=== PATIENT | female | born 1955 | race Caucasian/White ===

== ENCOUNTER 2023-05-02 10:00 | Outpatient (OUT) | payer MEDICARE, OTHER, SELFPAY ==
--- NOTE | 2023-05-02 10:39 | CA_ITS ---
Patient: CALI SANTOS Exam Date: 05/02/2023 : 1955 Gender:F Ordering : MRS. DELMAR DOUGLAS NP Admission #: [id number] Family : Order #: [id number] CLICK HERE TO VIEW EXAM ECHOCARDIOGRAM REPORT PROCEDURE: CA ECHO DOPPLER COMPLETE INDICATIONS: Aneurysm of ascending aorta without rupture, hypertension, diabetes COMPARISON: None. DESCRIPTION: COMPLETE ECHOCARDIOGRAM Real-time transthoracic echocardiography with 2D, M-mode, spectral and color flow Doppler performed. QUALITY: Technical quality was good. LEFT VENTRICLE: Normal chamber size. Borderline left ventricular hypertrophy. Normal systolic function. LV EF: Normal left ventricular ejection fraction, (55%). DIASTOLIC: Normal diastolic dysfunction. ATRIAL SEPTUM: Visually appears intact. LEFT ATRIUM: Moderate dilatation. RIGHT ATRIUM: Mild dilatation. RIGHT VENTRICLE: Normal chamber size. Normal right ventricular systolic function. TRICUSPID VALVE: Normal mobility and thickness. No stenosis with mild regurgitation. No evidence of pulmonary hypertension. RVSP 31 mmHg MITRAL VALVE: Normal mobility and thickness. No evidence of mitral valve stenosis. There is no mitral annular calcification. Trivial mitral regurgitation. AORTIC VALVE: Normal trileaflet appearance. Thickened aortic valve. Mildly diminished mobility. No evidence of aortic valve stenosis. No aortic regurgitation. AORTIC ROOT: Dilated ascending aorta (4.2 cm). Aortic root and arch are normal in size. PULMONIC VALVE: Normal thickness and mobility. No stenosis. Mild regurgitation. PERICARDIUM: No evidence of pericardial effusion. IVC: Collapses with inspirations. PLEURA: CONCLUSION: 1. Normal ventricular size and systolic function. LVEF is 55%. 2. Normal right ventricular size and systolic function. 3. Normal diastolic function. 4. Mild to moderate biatrial dilatation. 5. Mild tricuspid regurgitation. 6. Normal right-sided pressures. 7. Moderately dilated ascending aorta measuring 4.2 cm. Adult Echocardiography Procedure Report Left Ventricle LVEDD (3.7 - 5.6 cm): 4.38 cm LVESD (2.2 - 4.0 cm): 2.63 cm LVIVS thickness (0.6 - 1.2 cm): 1.04 cm LVPW thickness (0.5 - 1.0 cm): 1.05 cm e': 0.11 m/s E - e': 7.61 LVOT Max Gradient: 5.98 mm[Hg] LVOT Area (cm2): 1.22 m/s Peak Velocity (LVOT): 1.22 m/s Mean Velocity (LVOT): 0.85 m/s LVOT Diameter 1.95 cm Left Atrium LA Volume Index (2D A2C): 37.94 ml/m2 Left Atrium Systolic Dimension: 4.27 cm Mitral Valve MV E to A Ratio: 0.90 Mitral Valve A-Wave Peak Velocity: 0.91 m/s Mitral Valve E-Wave Peak Velocity: 0.82 m/s Right Ventricle Aorta AO Root Diam: 2.79 cm Ascending Ao Diam: 3.35 cm Aortic Valve AoV Area (Peak Yinka): 2.18 cm2, 2.18 cm2 AoV Area (VTI): 2.08 cm2, 2.08 cm2 Peak Velocity(Antegrade Flow): 1.67 m/s Peak Gradient(Antegrade Flow): 11.13 mm[Hg] Mean Velocity(Antegrade Flow): 1.20 m/s Mean Gradient(Antegrade Flow): 6.40 mm[Hg] Velocity Time Integral: 41.41 cm Tricuspid Valve Peak Velocity (Regurgitant Flow): 2.67 m/s Pulmonic Valve Peak Velocity: 1.09 m/s Peak Gradient: 4.33 mm[Hg], 5.27 mm[Hg] Right Atrium Right Atrium Systolic Pressure: 65.70 ml, 65.70 ml Dictated by: Wally Perdue M.D. on 05/07/2023 at 17:30 Approved by: Wally Perdue M.D. on 05/07/2023 at 17:35
== END 2023-05-02 10:01 | disposition home or self-care (01) ==
LOC: CARD 10:00
PROVIDERS: PCP Family Medicine
DX: I71.21 Aneurysm of the ascending aorta, without rupture (principal); I07.1 Rheumatic tricuspid insufficiency
CPT/HCPCS: 93306

== ENCOUNTER 2023-09-24 13:31 | Outpatient (OUT) | payer MEDICARE, OTHER, SELFPAY ==
--- NOTE | 2023-09-24 13:44 | XR_ITS ---
The [address] [address] Patient Name: CALI SANTOS MRN: [id number] date: 1955 Sex: F Assigned Patient Location: [facility] Current Patient Location: RAD Accession/Order Number: [id number] Exam Date: 09/24/2023 13:50 Report Date: 09/24/2023 14:26 At the request of: KAI JARQUIN Procedure: XR chest 2V EXAMINATION: XR chest 2V HISTORY: Cough, Positive COVID 09/17/23 COMPARISON: XR chest 04/07/2021 FINDINGS: LUNGS: Stable small dense nodule within lateral left midlung favoring a granuloma. No appreciable infiltrates. VASCULATURE: No increased pulmonary vasculature. PLEURA: No pneumothorax, effusion, or pleural thickening. CARDIAC: No cardiomegaly or cardiac silhouette abnormality. MEDIASTINUM: No visible mass or adenopathy. BONES: No fracture or visible bone lesion. OTHER: Negative. XR/XR chest 2V IMPRESSION: 1. No acute cardiopulmonary process. Stable chest. Electronically authenticated by: KAPIL AGUILAR Date: 09/24/2023 14:26
== END 2023-09-24 13:32 | disposition home or self-care (01) ==
LOC: RAD 13:33
PROVIDERS: PCP Family Medicine; Visit Provider Family Medicine
DX: R05.9 Cough, unspecified (principal); Z86.16 Personal history of COVID-19
CPT/HCPCS: 71046

== ENCOUNTER 2023-11-20 10:44 | Outpatient (OUT) | payer MEDICARE, SELFPAY ==
--- NOTE | 2023-11-20 10:48 | MM_ITS ---
Patient Name: CALI SANTOS MR#: [id number] : 1955 Exam Date: 11/20/2023 Ordering Doctor: DR. KAI JARQUIN . RADIOLOGY REPORT PROCEDURE: MM TOMOSYNTHESIS SCREENING BI COMPARISON: MG MAMM ELADIO SCRN W CAD DIG, 03/30/2013. INDICATIONS: Screening Calculator Name NCI Breast Cancer Risk Assessment Tool 5 Year Breast Cancer Risk 2.00% Lifetime Breast Cancer Risk 5.90% Personal Breast Cancer No Personal Ovarian Cancer No Treatments None Family Cancers Mother with liver cancer at age 65. LOCATION: The [facility] BREAST COMPOSITION: Almost entirely fatty. FINDINGS: DIAGNOSTIC CATEGORY 2--BENIGN FINDING. NO CHANGE FROM COMPARISON. Scattered benign-appearing calcifications are present. Scattered benign-appearing lymph nodes are present. RIGHT BREAST: No significant suspicious finding. LEFT BREAST: No significant suspicious finding. RECOMMENDATIONS: ROUTINE MAMMOGRAM AND CLINICAL EVALUATION IN 12 MONTHS. PLEASE NOTE: A NORMAL MAMMOGRAM DOES NOT EXCLUDE THE POSSIBILITY OF BREAST CANCER. A CLINICALLY SUSPICIOUS PALPABLE LUMP SHOULD BE BIOPSIED. Dictated by: Nicholas Hernandez MD on 11/20/2023 at 12:52 Approved by: Nicholas Hernandez MD on 11/20/2023 at 12:53
--- OUTSIDE RECORDS SUMMARY | 2023-11-20 10:49 | XMS_ITS | CCD ---
Author Name Unknown Address [address] [place] [address] Organization [facility] Care Team Providers Care Potline Monitor Name Role Phone PHYSICIAN, DEFAULT Admitting Unavailable PHYSICIAN, DEFAULT Attending Unavailable SELF, REFERRED Primary Care Unavailable KIRIT, DR FERNY Ortiz Primary Care Unavailable ARUNA, HOLLY Admitting Unavailable ARUNA, HOLLY Attending Unavailable ARUNA, HOLLY Consulting Unavailable ARUNA, HOLLY Admitting Unavailable ARUNA, HOLLY Attending Unavailable ARUNA, HOLLY Consulting Unavailable KIRIT, DR FERNY Ortiz Primary Care Unavailable ARUNA, HOLLY Attending Unavailable ARUNAJINHOLLY Consulting Unavailable ARUNA, HOLLY Admitting Unavailable KIRIT, DR FERNY Ortiz Primary Care Unavailable KIRIT, DR FERNY Ortiz Admitting Unavailable KIRIT, DR FERNY Ortiz Attending Unavailable KIRIT, DR FERNY Ortiz Consulting Unavailable KIRIT, DR FERNY Oritz Primary Care Unavailable KIRIT, DR FERNY Ortiz Primary Care Unavailable KIRIT, DR FERNY Ortiz Admitting Unavailable KIRIT, DR FERNY Ortiz Attending Unavailable KIRIT, DR FERNY Ortiz Consulting Unavailable KIRIT, DR FERNY Ortiz Admitting Unavailable HUDDLESTON, DR FERNY Ortiz Attending Unavailable HUDDLESTON, DR FERNY Ortiz Consulting Unavailable KIRIT, DR FERNY Ortiz Primary Care Unavailable ARUNA, HOLLY Admitting Unavailable ARUNA, HOLLY Attending Unavailable ARUNA, HOLYL Consulting Unavailable KIRIT, DR FERNY Ortiz Primary Care Unavailable FERNY HUDDLESTON Primary Care Physician Willian Barrios. Primary Care Physician [phone] DELMAR DOUGLAS Attending Unavailable MD Willian Barrios Attending Unavailable Mariah Amin Attending UnavailMariah Leach Admitting UnavailMD Willian Galicia Attending Unavailable MD Willian Barrios Admitting Unavailable Deborah Rashid Attending UnavailAshlie Trejo Attending Unavailable Ashlie Mead Attending Unavailable MD Willian Barrios Attending Unavailable MD Willian Barrios Admitting Unavailable MD Willian Barrios Attending Unavailable Al-Marrawi, Mhd Yaser Admitting Unavailabl e Al-Marrawi, Mhd Yaser Attending Unavailabl Lucas Still Admitting Unavailable Deborah Rashid Referring Unavaila Lucas Roach Attending Unavailable Steve-Marmiguel, Mhd Yaser Attending UnavailMD Willian Galicia Attending Unavailable MD Willian Barrios Attending Unavailable MD Willian Barrios Attending Unavailable MD Willian Barrios Attending Unavailable MD Willian Barrios Attending Unavailable MD Willian Barrios Attending Unavailable Al-Marrawi, Mhd Yaser Admitting Unavailabl e Al-Marrawi, Lennyd Yaser Attending Unavailabl e Al-Marrawi, Mhd Yaser Admitting Unavailabl e Al-Marrawi, Mhd Yaser Attending UnavailMD Willian Galicia Admitting Unavailable Al-Marrawi, Mhd Yaser Attending Unavailabl e Pastor, GODFREY Loya L Referring Unavailable Al-Marrawi, Mhd Yaser Attending Unavailabl e Al-Marrawi, Lennyd Yaser Attending Unavailabl e Al-Marrawi, Mhd Yaser Admitting Unavailabl e Al-Marrawi, Mhd Yaser Referring Unavailabl e Al-Marrawi, Lennyd Yaser Attending Unavailabl e Al-Marrawi, Lennyd Yaser Admitting Unavailabl e Al-Marrawi, Mhd Yaser Attending UnavailMD Willian Galicia Attending Unavailable MD Willian Barrios Attending Unavailable MD Willian Barrios Attending Unavailable MD Willian Barrios Attending Unavailable MD Willian Barrios Attending Unavailable MD Willian Barrios Attending Unavailable Allergies Allergy Classification Reported Allergen(s) Allergy Type Date of Onset Reaction(s) Facility (3 sources) Sulfonamides (Antibiotic); Translations: [SULFA (SULFONAMIDE ANTIBIOTICS)] Drug allergy (disorder) 6 [facility] Repository (3 sources) metFORMIN; Translations: [METFORMIN] Drug Allergy [facility] Repository (13 sources) metFORMIN; Translations: [metformin] Drug Allergy Unknown (qualifier value), Dizziness (finding) [facility] (14 sources) Sulfonamides (Antibiotic); Translations: [sulfa drugs] Drug allergy Unknown (qualifier value) [facility] Medications Current Medications Medication Drug Class(es) Dates Sig (Normalized) Sig (Original) Albuterol (Eqv-ProAir HFA) 90 mcg/inh inhalation aerosol (4 sources) Start: 06-30-2023 take 2 puff(s) by inhalation every six hours Albuterol (Eqv-ProAir HFA) 90 mcg/inh inhalation aerosol 2 puff(s), Inhalation, q6hr, 18 gm, Refill(s) 0, [facility]/pharmacy #[id number], 150, cm, 06/30/23 11:19:00 EDT, Height/Length Dosing, 112.8, kg, 06/30/23 11:19:00 EDT, Weight Dosing Start Date: 06/30/23 Status: Ordered aspirin 81 mg oral capsule (13 sources) Platelet Aggregation Inhibitor, Nonsteroidal Anti-inflammatory Drug Start: 02-07-2023 take 1 capsule by mouth once daily aspirin 81 mg oral capsule 81 mg = 1 cap(s), Oral, Daily, Refills(s) 0 Start Date: 02/07/23 Status: Ordered atorvastatin 40 mg oral tablet (4 sources) HMG-CoA Reductase Inhibitor Start: 09-22-2023 take 1 tablet by mouth once daily atorvastatin 40 mg Tab See Instructions, TAKE 1 TABLET BY MOUTH EVERY DAY, # 90 tab(s), Refills(s) 0, Pharmacy: [id number], 152, cm, 09/17/23 13:20:00 EST, Height/Length Dosing, 11.2, kg, 09/17/23 13:20:00 EST, Weight Dosing Start Date: 09/22/23 Status: Ordered Start: 06-30-2023 take 1 tablet by leela th once daily Lipitor 40 mg Tab 40 mg = 1 tab(s), Oral, Daily, # 90 tab(s), Refills(s) 0, Pharmacy: [facility]/pharmacy #[id number], 150, cm, 06/30/23 11:19:00 EDT, Height/Length Dosing, 112.8, kg, 06/30/23 11:19:00 EDT, Weight Dosing Start Date: 06/30/23 Status: Ordered Budesonide 0.09 MG/ACTUAT Dry Powder Inhaler (1 source) Corticosteroid Start: 09-25-2023 budesonide 90 mcg/inh inhalation powder 1 inh, Inhalation, BID, 1 EA, Refill(s) 11, [facility]/pharmacy #[id number], 152, cm, 09/24/23 14:41:00 EST, Height/Length Dosing, 109.8, kg, 09/24/23 14:41:00 EST, Weight Dosing Start Date: 09/25/23 Status: Ordered fluticasone propionate 0.05 mg/actuat metered dose nasal spray (1 source) Corticosteroid Start: 09-24-2023 Flonase 0.05 m g/inh Pachuta 2 spray(s), Nasal, Daily, 16 gram, Refill(s) 0, each nostril, [facility]/pharmacy #[id number], 152, cm, 09/24/23 14:41:00 EST, Height/Length Dosing, 109.8, kg, 09/24/23 14:41:00 EST, Weight Dosing Start Date: 09/24/23 Status: Ordered glipiZIDE 5 mg oral tablet (13 sources) Sulfonylurea Start: 09-29-2023 take 1 tablet by mouth once daily glipiZIDE 5 mg Tab 5 mg = 1 tab(s), Oral, Daily, # 90 tab(s), Refills(s) 3, Pharmacy: [facility]/pharmacy #[id number], 152, cm, 09/29/23 11:20:00 EST, Height/Length Dosing, 111, kg, 09/29/23 11:20:00 EST, Weight Dosing Start Date: 09/29/23 Status: Ordered Start: 04-22-2023 take 1 tablet by leela th once daily glipiZIDE 5 mg Tab 5 mg = 1 tab(s), Oral, Daily, # 90 tab(s), Refills(s) 3, Pharmacy: [facility]/pharmacy #[id number], 150.8, cm, 03/31/23 11:24:00 EDT, Height/Length Dosing, 110, kg, 03/31/23 11:24:00 EDT, Weight Dosing Start Date: 04/22/23 Status: Ordered Start: 02-07-2023 take 1 tablet by leela once daily glipiZIDE 5 mg Tab 5 mg = 1 tab(s), Oral, Daily, Refills(s) 0 Start Date: 02/07/23 Status: Ordered hydroCHLOROthiazide 25 mg / losartan potassium 100 mg oral tablet (13 sources) Thiazide Diuretic, Angiotensin 2 Receptor Phylicia Start: 07-28-2023 hydrochlorothiazide-losartan 25 mg-100 mg Tab 1 tab(s), Oral, Daily, 90 tab(s), Refill(s) 1, [facility]/pharmacy #[id number], 150.8, cm, 07/24/23 9:39:00 EDT, Height/Length Dosing, 114, kg, 07/24/23 9:39:00 EDT, Weight Dosing Start Date: 07/28/23 Status: Ordered Start: 02-07-2023 take 1 tablet by [facility] once daily hydrochlorothiazide-losartan 25 mg-100 m g Tab 1 tab(s), Oral, Daily, Refill(s) 0 Start Date: 02/07/23 Status: Ordered levothyroxine sodium 0.075 mg oral tablet (13 sources) l-Thyroxine Start: 07-28-2023 take 1 tablet by mouth once daily levothyroxine 75 mcg (0.075 mg) Tab 75 mcg = 1 tab(s), Oral, Daily, # 90 tab(s), Refills(s) 3, Pharmacy: [facility]/pharmacy #[id number], 150.8, cm, 07/24/23 9:39:00 EDT, Height/Length Dosing, 114, kg, 07/24/23 9:39:00 EDT, Weight Dosing Start Date: 07/28/23 Status: Ordered Start: 06-09-2023 take 1 tablet by leela once daily levothyroxine 75 mcg (0.075 mg) Tab 75 mcg = 1 tab(s), Oral, Daily, # 90 tab(s), Refills(s) 0, Pharmacy: [facility]/pharmacy #[id number], 150.8, cm, 06/04/23 13:05:00 EDT, Height/Length Dosing, 114, kg, 06/04/23 13:05:00 EDT, Weight Dosing Start Date: 06/09/23 Status: Ordered Start: 02-07-2023 take 1 tablet by leela th once daily levothyroxine 75 mcg (0.075 mg) Tab 75 mcg = 1 tab(s), Oral, Daily, Refills(s) 0 Start Date: 02/07/23 Status: Ordered metoprolol tartrate 25 mg oral tablet (13 sources) beta-Adrenergic Phylicia Start: 02-07-2023 take 1 tablet by mouth twice daily Metoprolol tartrate 25 mg Tab 25 mg = 1 tab(s), Oral, BID, Refills(s) 0, High blood pressure Start Date: 02/07/23 Status: Ordered polyethylene glycol 3350 276169 mg / potassium chloride 1480 mg / sodium bicarbonate 5720 mg / sodium chloride 89939 mg powder for oral solution (6 sources) Osmotic Laxative Start: 10-01-2023 NuLYTELY Mae oral powder for reconstitution See Instructions, 1 EA, Refill(s) 0, Prior to colonsocopy., [facility]/pharmacy #[id number], 152, cm, 10/01/23 12:44:00 EST, Height/Length Dosing, 111.6, kg, 10/01/23 12:44:00 EST, Weight Dosing Start Date: 10/01/23 Status: Ordered Start: 06-04-2023 NuLYTELY Orang e oral powder for reconstitution See Instructions, 1 EA, Refill(s) 0, Oral, [id number], 150.8, cm, 06/04/23 13:05:00 EDT, Height/Length Dosing, 114, kg, 06/04/23 13:05:00 EDT, Weight Dosing Start Date: 06/04/23 Status: Ordered Completed/Discontinued Medications Medication Drug Class(es) Dates Sig (Normalized) Sig (Original) Symbicort 160/4.5 inhalation aerosol with adapter (1 source) Start: 09-25-2023 take 1 dose by inhalation twice daily Symbicort 160/4.5 inhalation aerosol with adapter 2 puff(s), Inhalation, BID, 1 EA, Refill(s) 0, [id number], 152, cm, 09/24/23 14:41:00 EST, Height/Length Dosing, 109.8, kg, 09/24/23 14:41:00 EST, Weight Dosing Start Date: 09/25/23 Status: Ordered Problems Problem Classification Problem Date Documented Date Episodic/Chronic Anal and rectal conditions (13 sources) Anal fissure 02-07-2023 Episodic Aortic; peripheral; and visceral artery aneurysms (8 sources) Aortic aneurysm of unspecified site, without rupture; Translations: [Thoracic aortic aneurysm, without rupture] Onset: 03-12-20 Chronic Chronic kidney disease (12 sources) Chronic kidney disease stage 3A 03-18-2023 Chronic Coagulation and hemorrhagic disorders (12 sources) Thrombocytopenic disorder 03-18-2023 Chroni c Deficiency and other anemia (5 sources) Anemia; Translations: [Anemia, unspecified] Onset: 07-31-20 Episodic Diabetes mellitus with complications (4 sources) Type 2 diabetes mellitus with unspecified complications; Translations: [TYPE 2 DM W/UNS COMPLICATIONS] Onset: 09-18-20 Chronic Diabetes mellitus without complication (13 sources) Type 2 diabetes mellitus; Translations: [Type 2 diabetes mellitus without complication] 02-07-2023 Chronic Comment on above: linked DM with CKD p er OP CDI policy. Diseases of white blood cells (12 sources) Lymphocytopenia 03-31-2023 Chronic Disorders of lipid metabolism (1 source) Pure hypercholesterolemia, unspecified; Translations: [PURE HYPERCHOLESTEROLEMIA UNSPEC] Onset: 04-04-20 Chronic Essential hypertension (16 sources) Essential (primary) hypertension; Translations: [Hypertensive disorder] Onset: 04-04-2002-07-2023 Chronic Fluid and electrolyte disorders (12 sources) Hypokalemia 03-18-2023 Episodic Gastrointestinal hemorrhage (3 sources) Gastrointestinal hemorrhage 07-30-2023 Episodic Heart valve disorders (1 source) Rheumatic tricuspid insufficiency; Translations: [RHEUMATIC TRICUSPID INSUFFICIENCY] Onset: 03-19-20 Chronic Mycoses (1 source) Onychomycosis 09-29-2023 Episodic Other aftercare (3 sources) Post-discharge follow-up 07-30-2023 Episodi c Other and unspecified benign neoplasm (5 sources) History of polyp of colon; Translations: [Personal history of colonic polyps] Onset: 07-31-20 Episodic Other and unspecified benign neoplasm (3 sources) Polyp of colon Onset: 07-24-2007-30-2023 Episodic Other connective tissue disease (13 sources) Adhesive capsulitis of shoulder 02-07-2023 Episodic Other connective tissue disease (13 sources) Inflammation of rotator cuff tendon 02-07-2023 Episodic Other gastrointestinal disorders (1 source) Abnormal feces; Translations: [Other fecal abnormalities] Onset: 06-03-20 Episodic Other hereditary and degenerative nervous system conditions (13 sources) Essential tremor 02-07-2023 Chronic Other liver diseases (12 sources) Elevated total bilirubin 03-18-2023 Episodi c Other lower respiratory disease (13 sources) Restrictive lung disease 02-07-2023 Episodi c Other screening for suspected conditions (not mental disorders or infectious disease) (5 sources) Screening for malignant neoplasm of colon done; Translations: [Encounter for screening for malignant neoplasm of colon] Onset: 06-03-20 Episodic Other upper respiratory disease (13 sources) Allergic rhinitis 02-07-2023 Chronic Residual codes; unclassified (4 sources) Obstructive sleep apnea (adult) (pediatric); Translations: [OBSTRUCTIVE SLEEP APNEA] Onset: 05-29-20 Chronic Thyroid disorders (14 sources) Hypothyroidism, unspecified; Translations: [Hypothyroidism] Onset: 09-23-2002-07-2023 Chronic Unclassified (20 sources) Patient encounter status 03-17-2023 Viral infection (1 source) Disease caused by 2019-nCoV 09-17-2023 Results Test Name Value Interpretation Reference Range Facil ity Consent for Procedure/Surger yon 10-03-2023 Consent for Procedure/Surgery [id number]# 1.00TIFF Normal [facility] Ambulatory Visit Summaryon 1 12-02-2022 Ambulatory Visit Summary MISA SANTOS :1955 Visit Date:10/01/2023 Ambulatory Visit Instructions Your Diagnosis History of colon polyps Anemia Your Care Team Attending Physician - Ashlie Mead CNP Primary Care Physician - Willian Barrios MD This Is Your Medications List polyethylene glycol 3350 with electrolytes (NuLYTELY Mae oral powder for reconstitution) Contact prescribing physician if questions or concerns Misc Prescription (Lancets) Misc Prescription (Misc DME Prescription) albuterol (Albuterol (Eqv-ProAir HFA) 90 mcg/inh inhalation aerosol) aspirin (aspirin 81 mg oral capsule) atorvastatin (atorvastatin 40 mg Tab) budesonide (budesonide 90 mcg/inh inhalation powder) budesonide-formoterol (Symbicort 160/4.5 inhalation aerosol with adapter) fluticasone nasal (Flonase 0.05 mg/inh Pachuta) glipiZIDE (glipiZIDE 5 mg Tab) hydrochlorothiazide-l osartan (hydrochlorothiazide- losartan 25 mg-100 mg Tab) levothyroxine (levothyroxine 75 mcg (0.075 mg) Tab) metoprolol (Metoprolol tartrate 25 mg Tab) Procedures Performed Colonoscopy (07/24/2023), Bone marrow biopsy (06/24/2023), Carpal tunnel release, section, AWA BSO - Total abdominal hysterectomy and bilateral salpingo-oophorectomy . Discharge Vitals Temperature (Temporal Artery) 36 ?C Heart Rate (Peripheral) 55 Blood Pressure 119/79 Height 152 cm Height 60 in Weight 111.6 kg Weight 245.52 lb BMI 48.3 What to do next Scheduled Follow-Up Appointments Friday 10:30 AM EDT With: Denis PATTEN, Willian Weiner Where: [facility] Normal [address] [place] [address]- \.br\ You Need to Schedule the Following Appointments\.br \ Follow Up with Ashlie Mead CNP When: In 4 months\.br\ Where:\.br\ You Need to Complete the Following\.br\ CBC w/ Auto Diff, Blood, Routine collect, 10/01/23, Order for future visit, Lab Collect, Anemia, Not Required, Print Label By Order Location\.br\ Medications\.br\ What How Much When Why Instructions\.br \ New polyethylene glycol 3350 with electrolytes (NuLYTELY Mae oral powder for reconstitution) See instructions Prior to colonsocopy. Pickup at [facility]/pharmacy #[id number]\.br\ Unchanged albuterol (Albuterol (Eqv-ProAir HFA) 90 mcg/ inh inhalation aerosol) 2 Puffs Inhalation Every 6 hours Contact prescribing physician if questions or concerns \.br\ Unchanged aspirin (aspirin 81 mg oral capsule) 1 Capsules By Mouth Every day Contact prescribing physician if questions or concerns \.br\ Unchanged atorvastatin (atorvastatin 40 mg Tab) See instructions TAKE 1 TABLET BY MOUTH EVERY DAY Contact prescribing physician if questions or concerns \.br\ Unchanged budesonide (budesonide 90 mcg/ inh inhalation powder) 1 Inhalation Inhalation 2 times a day Contact prescribing physician if questions or concerns \.br\ Unchanged budesonide-formo terol (Symbicort 160/ 4.5 inhalation aerosol with adapter) 2 Puffs Inhalation 2 times a day Contact prescribing physician if questions or concerns \.br\ Unchanged fluticasone nasal (Flonase 0.05 mg/ inh Pachuta) 2 Sprays Nasal Inhalation Every day each nostril Contact prescribing physician if questions or concerns \.br\ Unchanged glipiZIDE (glipiZIDE 5 mg Tab) 1 Tablets By Mouth Every day Contact prescribing physician if questions or concerns \.br\ Unchanged hydrochlorothiaz thomas-losartan (hydrochlorothia zide-losartan 25 mg-100 mg Tab) 1 Tablets By Mouth Every day Contact prescribing physician if questions or concerns \.br\ Unchanged levothyroxine (levothyroxine 75 mcg (0.075 mg) Tab) 1 Tablets By Mouth Every day Contact prescribing physician if questions or concerns \.br\ Unchanged metoprolol (Metoprolol tartrate 25 mg Tab) 1 Tablets By Mouth 2 times a day Contact prescribing physician if questions or concerns \.br\ Unchanged Misc Prescription (Lancets) See instructions Diabetes To be used once a day to obtain blood sugars Dx: E11.9 Contact prescribing physician if questions or concerns \.br\ Unchanged Misc Prescription (Misc DME Prescription) See instructions Diabetes one touch test strips. Use to test blood sugars once a day Dx E11.9 Contact prescribing physician if questions or concerns \.br\ Pharmacy Information\.br\ [facility]/pharmacy #[id number]: [address] [place], [place] [id number] [phone]\.br\ Allergies\.br\ metFORMIN (Nausea, Dizziness, Unknown)\.br\ sulfa drugs (Hives, Unknown)\.br\ Problems\.br\ Ongoing - Any problem that you are currently receiving treatment for.\.br\ Allergic rhinitis\.br\ Anal fissure\.br\ Anemia\.br\ Breast cancer screening\.br\ Colon cancer screening\.br\ COVID\.br\ GI bleed\.br\ History of colon polyps\.br\ Hospital discharge follow-up\.br\ Hypertension\.br \ Hypokalemia\.br\ Hypothyroid\.br\ Lymphopenia\.br\ Onychomycosis\.b r\ Pericapsulitis of shoulder\.br\ Polyp of colon\.br\ Positive colorectal cancer screening using Cologuard test\.br\ Restrictive lung disease\.br\ Rotator cuff tendonitis\.br\ Stage 3a chronic kidney disease (CKD)\.br\ Thrombocytopenia \.br\ Total bilirubin, elevated\.br\ Tremor, essential\.br\ Type 2 diabetes mellitus with stage 3a chronic kidney disease and hypertension\.br \ Patient Survey\.br\ You may receive a survey via text or e-mail asking about your office visit. Please share your experience with us by completing your survey. We appreciate your feedback and thank you for choosing us for your care.\.br\ Education Materials\.br\ Colon Polyps\.br\ \.br\ Colon polyps are tissue growths inside the colon, which is part of the large intestine. They are one of the types of polyps that can grow in the body. A polyp may be a round bump or a mushroom-shaped growth. You could have one polyp or more than one.\.br\ Most colon polyps are noncancerous (benign). However, some colon polyps can become cancerous over time. Finding and removing the polyps early can help prevent this.\.br\ What are the causes?\.br\ The exact cause of colon polyps is not known.\.br\ What increases the risk?\.br\ The following factors may make you more likely to develop this condition:\.br\ ? \.br\ Having a family history of colorectal cancer or colon polyps.\.br\ ? \.br\ Being older than 45 years of age.\.br\ ? \.br\ Being younger than 45 years of age and having a significant family history of colorectal cancer or colon polyps or a genetic condition that puts you at higher risk of getting colon polyps.\.br\ ? \.br\ Having inflammatory bowel disease, such as ulcerative colitis or Crohn's disease.\.br\ ? \.br\ Having certain conditions passed from parent to child (hereditary conditions), such as:\.br\ ? \.br\ Familial adenomatous polyposis (FAP).\.br\ ? \.br\ Mishra syndrome.\.br\ ? \.br\ Turcot syndrome.\.br\ ? \.br\ Peutz?Jeghers syndrome.\.br\ ? \.br\ MUTYH-associated polyposis (MAP).\.br\ ? \.br\ Being overweight.\.br\ ? \.br\ Certain lifestyle factors. These include smoking cigarettes, drinking too much alcohol, not getting enough exercise, and eating a diet that is high in fat and red meat and low in fiber.\.br\ ? \.br\ Having had childhood cancer that was treated with radiation of the abdomen.\.br\ What are the signs or symptoms?\.br\ Many times, there are no symptoms.\.br\ If you have symptoms, they may include:\.br\ ? \.br\ Blood coming from the rectum during a bowel movement.\.br\ ? \.br\ Blood in the stool (feces). The blood may be bright red or very dark in color.\.br\ ? \.br\ Pain in the abdomen.\.br\ ? \.br\ A change in bowel habits, such as constipation or diarrhea.\.br\ How is this diagnosed?\.br\ This condition is diagnosed with a colonoscopy. This is a procedure in which a lighted, flexible scope is inserted into the opening between the buttocks (anus) and then passed into the colon to examine the area. Polyps are sometimes found when a colonoscopy is done as part of routine cancer screening tests.\.br\ How is this treated?\.br\ This condition is treated by removing any polyps that are found. Most polyps can be removed during a colonoscopy. Those polyps will then be tested for cancer. Additional treatment may be needed depending on the results of testing.\.br\ Follow these instructions at home:\.br\ Eating and drinking\.br\ \.br\ ? \.br\ Eat foods that are high in fiber, such as fruits, vegetables, and whole grains.\.br\ ? \.br\ Eat foods that are high in calcium and vitamin D, such as milk, cheese, yogurt, eggs, liver, fish, and broccoli.\.br\ ? \.br\ Limit foods that are high in fat, such as fried foods and desserts.\.br\ ? \.br\ Limit the amount of red meat, precooked or cured meat, or other processed meat that you eat, such as hot dogs, sausages, yun, or meat loaves.\.br\ ? \.br\ Limit sugary drinks.\.br\ Lifestyle\.br\ ? \.br\ Maintain a healthy weight, or lose weight if recommended by your health care provider.\.br\ ? \.br\ Exercise every day or as told by your health care provider.\.br\ ? \.br\ Do not use any products that contain nicotine or tobacco, such as cigarettes, e-cigarettes, and chewing tobacco. If you need help quitti [facility] Gastroenterology Office/Clin ic Noteon 10-01-2023 Gastroenterology Office/Clinic Note Chief Complaint Checkup HPI Staff This is a 68 year old female who presents today for a follow-up from 07/31/23 office visit. History of Present Illness Patient is a 68-year-old female who presents for follow-up. Patient was previously evaluated 07/2023 and had previous positive Cologuard testing. PMH of HTN, HLD, Hypothyroidism- managed by patient's PCP. Colonoscopy completed 07/24/2023 revealed 1 cm semipedunculated polyp removed from ascending colon that pathology revealed was tubulovillous adenoma, large at least 4 cm pedunculated polyp removed from sigmoid that pathology revealed was tubulovillous adenoma. Operative note indicated patient had experienced blood loss during procedure and was admitted to hospital for monitoring. Patient to have repeat colonoscopy in 6 months-01/2024. Patient had labs 07/25/23 that revealed low H/H of 10.9/31.8. Hgb. 05/27/23 was low at 11.2. Patient reported during visit with me that she was following with hematology regarding anemia. She reported having 1-2 formed bowel movements daily. Patient was ordered repeat CBC. Labs completed 09/15/2023 revealed improved H&H of 12.3/36.5?was previously 10.9/31.8, improved however low RBC of 3.9, was previously 3.4. During today's visit, patient reports she is doing well. Is having 1 formed BM daily. Denies black/bloody stools, acid reflux, nausea/vomiting, fevers/chills, and denies having any GI complaints. Review of Systems PHQ Score Initial Depression Screen Score: 0 SCORE ROS - Provider Constitutional: no fever, no chills. Skin: no Jaundice. ENMT: Denies dysphagia and heartburn. Respiratory: no shortness of breath. Cardiovascular: no chest pain. Gastrointestinal: no nausea, no vomiting, no diarrhea, no GI bleeding. Physical Exam Vitals & Measurements T: 36 ?C(Temporal Artery) HR: 55(Peripheral) BP: 119/79 HT: 60 in HT: 152 cm WT: 111.6 kg WT: 245.52 lb BMI: 48.3 General: Well developed, well nourished, in no acute distress Head: Normocephalic/atrauma tic Lungs: Normal respiratory effort and clear to auscultation Cardio: Regular rate and rhythm, normal S1 and S2, no murmur, no rub Abdomen: Soft, non-distended, non-tender. Normoactive bowel sounds present in all 4 abdominal quadrants, bilaterally. Mental Status: Alert and oriented x3. Normal mood and affect Assessment/Plan HR low at 55- patient reports her HR normally runs in 50s. 1. History of colon polyps (Z86.010: Personal history of colonic polyps) Colonoscopy completed 07/24/2023 revealed 1 cm semipedunculated polyp removed from ascending colon that pathology revealed was tubulovillous adenoma, large at least 4 cm pedunculated polyp removed from sigmoid that pathology revealed was tubulovillous adenoma. Patient to have repeat colonoscopy in 6 months-01/2024. Ordered Colonoscopy. Takes aspirin daily. Ordered: Colonoscopy (Hospital Procedure) 2. Anemia (D64.9: Anemia, unspecified) Improved. Labs completed 09/15/2023 revealed improved H&H of 12.3/36.5?was previously 10.9/31.8, improved however low RBC of 3.9, was previously 3.4. Colonoscopy completed 07/24/2023 revealed 1 cm semipedunculated polyp removed from ascending colon that pathology revealed was tubulovillous adenoma, large at least 4 cm pedunculated polyp removed from sigmoid that pathology revealed was tubulovillous adenoma. Operative note indicated patient had experienced blood loss during procedure and was admitted to hospital for monitoring. Patient to have repeat colonoscopy in 6 months-01/2024. Ordered repeat CBC in 2 months. Ordered: CBC w/ Auto Diff Orders: polyethylene glycol 3350 with electrolytes, See Instructions, 1 EA, Refill(s) 0, Prior to colonsocopy., [id number], 152, cm, 10/01/23 12:44:00 EST, Height/Length Dosing, 111.6, kg, 10/01/23 12:44:00 EST, Weight Dosing Follow-up With When Contact Information Ashlie Mead CNP In 4 months Additional Instructions: Patient Education Colon Polyps Problem List/Past Medical History Ongoing Allergic rhinitis Anal fissure Anemia Breast cancer screening Colon cancer screening COVID GI bleed History of colon polyps Hospital discharge follow-up Hypertension Hypokalemia Hypothyroid Lymphopenia Onychomycosis Pericapsulitis of shoulder Polyp of colon Positive colorectal cancer screening using Cologuard test Restrictive lung disease Rotator cuff tendonitis Stage 3a chronic kidney disease (CKD) Thrombocytopenia Total bilirubin, elevated Tremor, essential Type 2 diabetes mellitus with stage 3a chronic kidney disease and hypertension Historical No qualifying data Procedure/Surgical History Colonoscopy (07/24/2023), Bone marrow biopsy (06/24/2023), Carpal tunnel release, section, AWA BSO - Total abdominal hysterectomy and bilateral salpingo-oophorectomy . Medications Albuterol (Eqv-ProAir HFA) 90 mcg/inh inhalation aerosol, 2 puff(s), Inhalation, q6hr aspirin 81 mg oral capsule, 81 mg= 1 ca (more content not included)... Normal [facility] Comment on above: Result Comment: Elec tronically Signed By: Ashlie Mead CNP\.br\Date and Time Signed: 10/01/23 12:54 EST Patient Educationon 10-01-20 Patient Education Oncology Colon Polyps Colon polyps are tissue growths inside the colon, which is part of the large intestine. They are one of the types of polyps that can grow in the body. A polyp may be a round bump or a mushroom-shaped growth. You could have one polyp or more than one. Most colon polyps are noncancerous (benign). However, some colon polyps can become cancerous over time. Finding and removing the polyps early can help prevent this. What are the causes? The exact cause of colon polyps is not known. What increases the risk? The following factors may make you more likely to develop this condition: ? Having a family history of colorectal cancer or colon polyps. ? Being older than 45 years of age. ? Being younger than 45 years of age and having a significant family history of colorectal cancer or colon polyps or a genetic condition that puts you at higher risk of getting colon polyps. ? Having inflammatory bowel disease, such as ulcerative colitis or Crohn's disease. ? Having certain conditions passed from parent to child (hereditary conditions), such as: ? Familial adenomatous polyposis (FAP). ? Mishra syndrome. ? Turcot syndrome. ? Peutz?Jeghers syndrome. ? MUTYH-associated polyposis (MAP). ? Being overweight. ? Certain lifestyle factors. These include smoking cigarettes, drinking too much alcohol, not getting enough exercise, and eating a diet that is high in fat and red meat and low in fiber. ? Having had childhood cancer that was treated with radiation of the abdomen. What are the signs or symptoms? Many times, there are no symptoms. If you have symptoms, they may include: ? Blood coming from the rectum during a bowel movement. ? Blood in the stool (feces). The blood may be bright red or very dark in color. ? Pain in the abdomen. ? A change in bowel habits, such as constipation or diarrhea. How is this diagnosed? This condition is diagnosed with a colonoscopy. This is a procedure in which a lighted, flexible scope is inserted into the opening between the buttocks (anus) and then passed into the colon to examine the area. Polyps are sometimes found when a colonoscopy is done as part of routine cancer screening tests. How is this treated? This condition is treated by removing any polyps that are found. Most polyps can be removed during a colonoscopy. Those polyps will then be tested for cancer. Additional treatment may be needed depending on the results of testing. Follow these instructions at home: Eating and drinking ? Eat foods that are high in fiber, such as fruits, vegetables, and whole grains. ? Eat foods that are high in calcium and vitamin D, such as milk, cheese, yogurt, eggs, liver, fish, and broccoli. ? Limit foods that are high in fat, such as fried foods and desserts. ? Limit the amount of red meat, precooked or cured meat, or other processed meat that you eat, such as hot dogs, sausages, yun, or meat loaves. ? Limit sugary drinks. Lifestyle ? Maintain a healthy weight, or lose weight if recommended by your health care provider. ? Exercise every day or as told by your health care provider. ? Do not use any products that contain nicotine or tobacco, such as cigarettes, e-cigarettes, and chewing tobacco. If you need help quitting, ask your health care provider. ? Do not drink alcohol if: ? Your health care provider tells you not to drink. ? You are , may be , or are planning to become . ? If you drink alcohol: ? Limit how much you use to: ? 0?1 drink a day for women. ? 0?2 drinks a day for men. ? Know how much alcohol is in your drink. In the [place] one drink equals one 12 oz bottle of beer (355 mL), one 5 oz glass of wine (148 mL), or one 1? oz glass of hard liquor (44 mL). General instructions ? Take [id number] and prescription medicines only as told by your health care provider. ? Keep all follow-up visits. This is important. This includes having regularly scheduled colonoscopies. Talk to your health care provider about when you need a colonoscopy. Contact a health care provider if: ? You have new or worsening bleeding during a bowel movement. ? You have new or increased blood in your stool. ? You have a change in bowel habits. ? You lose weight for no known reason. Summary ? Colon polyps are tissue growths inside the colon, which is part of the large intestine. They are one type of polyp that can grow in the body. ? Most colon polyps are noncancerous (benign), but some can become cancerous over time. ? This condition is diagnosed with a colonoscopy. ? This condition is treated by removing any polyps that are found. Most polyps can be removed during a colonoscopy. This information is not intended to replace advice given to you by your health care provider. Make sure you discuss any questions you have with your health care provider. Document Revised: 01/17/2021 D (more content not included)... Normal [facility] Ambulatory Visit Summaryon 1 11-30-2022 Ambulatory Visit Summary MISA SANTOS :1955 Visit Date:09/29/2023 Ambulatory Visit Instructions Your Diagnosis Hypertension Hypokalemia Stage 3a chronic kidney disease (CKD) Type 2 diabetes mellitus with stage 3a chronic kidney disease and hypertension BMI 45.0-49.9, adult Onychomycosis Class 3 obesity Nonsmoker Hypertensive chronic kidney disease with stage 1 through stage 4 chronic kidney disease, or unspecified chronic kidney disease Your Care Team Attending Physician - Willian Barrios MD Primary Care Physician - Willian Barrios MD This Is Your Medications List Misc Prescription (Lancets) Misc Prescription (Misc DME Prescription) albuterol (Albuterol (Eqv-ProAir HFA) 90 mcg/inh inhalation aerosol) aspirin (aspirin 81 mg oral capsule) atorvastatin (atorvastatin 40 mg Tab) budesonide (budesonide 90 mcg/inh inhalation powder) budesonide-formoterol (Symbicort 160/4.5 inhalation aerosol with adapter) fluticasone nasal (Flonase 0.05 mg/inh Pachuta) glipiZIDE (glipiZIDE 5 mg Tab) hydrochlorothiazide-l osartan (hydrochlorothiazide- losartan 25 mg-100 mg Tab) levothyroxine (levothyroxine 75 mcg (0.075 mg) Tab) metoprolol (Metoprolol tartrate 25 mg Tab) Procedures Performed Colonoscopy (07/24/2023), Bone marrow biopsy (06/24/2023), Carpal tunnel release, section, AWA BSO - Total abdominal hysterectomy and bilateral salpingo-oophorectomy . Discharge Vitals Temperature (Oral) 36.5 ?C Heart Rate (Peripheral) 58 Respiratory Rate 18 Blood Pressure 120/72 Height 152 cm Height 60 in Weight 111.0 kg Weight 244.2 lb BMI 48.04 What to do next Scheduled Follow-Up Appointments Friday 12:40 PM EST With: Ashlie Mead CNP Where: [facility] Invalid Interpretation Code [address] [place] [address]- \.br\ Someone Will Contact You Regarding These Appointments\.br \ [facility] External Ambulatory Referral, Podiatry, 09/29/23 11:47:00 EST, Hypertension [facility] Ambulatory Visit Summary MISA SANTOS :1955 Visit Date:09/29/2023 Ambulatory Visit Instructions Your Diagnosis Hypertension Hypokalemia Stage 3a chronic kidney disease (CKD) Type 2 diabetes mellitus with stage 3a chronic kidney disease and hypertension BMI 45.0-49.9, adult Class 3 obesity Nonsmoker Hypertensive chronic kidney disease with stage 1 through stage 4 chronic kidney disease, or unspecified chronic kidney disease Your Care Team Attending Physician - Willian Barrios MD Primary Care Physician - Willian Barrios MD This Is Your Medications List Misc Prescription (Lancets) Misc Prescription (Misc DME Prescription) albuterol (Albuterol (Eqv-ProAir HFA) 90 mcg/inh inhalation aerosol) aspirin (aspirin 81 mg oral capsule) atorvastatin (atorvastatin 40 mg Tab) budesonide (budesonide 90 mcg/inh inhalation powder) budesonide-formoterol (Symbicort 160/4.5 inhalation aerosol with adapter) fluticasone nasal (Flonase 0.05 mg/inh Pachuta) glipiZIDE (glipiZIDE 5 mg Tab) hydrochlorothiazide-l osartan (hydrochlorothiazide- losartan 25 mg-100 mg Tab) levothyroxine (levothyroxine 75 mcg (0.075 mg) Tab) metoprolol (Metoprolol tartrate 25 mg Tab) Procedures Performed Colonoscopy (07/24/2023), Bone marrow biopsy (06/24/2023), Carpal tunnel release, section, AWA BSO - Total abdominal hysterectomy and bilateral salpingo-oophorectomy . Discharge Vitals Temperature (Oral) 36.5 ?C Heart Rate (Peripheral) 58 Respiratory Rate 18 Blood Pressure 120/72 Height 152 cm Height 60 in Weight 111.0 kg Weight 244.2 lb BMI 48.04 What to do next Scheduled Follow-Up Appointments Friday 12:40 PM EST With: Ashlie Mead CNP Where: [facility] Normal [address] [place] [phone]- \.br\ Medications\.br\ What How Much When Why Instructions\.br \ Unchanged albuterol (Albuterol (Eqv-ProAir HFA) 90 mcg/ inh inhalation aerosol) 2 Puffs Inhalation Every 6 hours\.br\ Unchanged aspirin (aspirin 81 mg oral capsule) 1 Capsules By Mouth Every day\.br\ Unchanged atorvastatin (atorvastatin 40 mg Tab) See instructions TAKE 1 TABLET BY MOUTH EVERY DAY \.br\ Unchanged budesonide (budesonide 90 mcg/ inh inhalation powder) 1 Inhalation Inhalation 2 times a day\.br\ Unchanged budesonide-formo terol (Symbicort 160/ 4.5 inhalation aerosol with adapter) 2 Puffs Inhalation 2 times a day\.br\ Unchanged fluticasone nasal (Flonase 0.05 mg/ inh Pachuta) 2 Sprays Nasal Inhalation Every day each nostril \.br\ Unchanged glipiZIDE (glipiZIDE 5 mg Tab) 1 Tablets By Mouth Every day\.br\ Unchanged hydrochlorothiaz thomas-losartan (hydrochlorothia zide-losartan 25 mg-100 mg Tab) 1 Tablets By Mouth Every day\.br\ Unchanged levothyroxine (levothyroxine 75 mcg (0.075 mg) Tab) 1 Tablets By Mouth Every day\.br\ Unchanged metoprolol (Metoprolol tartrate 25 mg Tab) 1 Tablets By Mouth 2 times a day\.br\ Unchanged Misc Prescription (Lancets) See instructions Diabetes To be used once a day to obtain blood sugars Dx: E11.9 \.br\ Unchanged Misc Prescription (Misc DME Prescription) See instructions Diabetes one touch test strips. Use to test blood sugars once a day Dx E11.9 \.br\ Allergies\.br\ metFORMIN (Nausea, Dizziness, Unknown)\.br\ sulfa drugs (Hives, Unknown)\.br\ Problems\.br\ Ongoing - Any problem that you are currently receiving treatment for.\.br\ Allergic rhinitis\.br\ Anal fissure\.br\ Anemia\.br\ Breast cancer screening\.br\ Colon cancer screening\.br\ COVID\.br\ GI bleed\.br\ History of colon polyps\.br\ Hospital discharge follow-up\.br\ Hypertension\.br \ Hypokalemia\.br\ Hypothyroid\.br\ Lymphopenia\.br\ Pericapsulitis of shoulder\.br\ Polyp of colon\.br\ Positive colorectal cancer screening using Cologuard test\.br\ Restrictive lung disease\.br\ Rotator cuff tendonitis\.br\ Stage 3a chronic kidney disease (CKD)\.br\ Thrombocytopenia \.br\ Total bilirubin, elevated\.br\ Tremor, essential\.br\ Type 2 diabetes mellitus with stage 3a chronic kidney disease and hypertension\.br \ Patient Survey\.br\ You may receive a survey via text or e-mail asking about your office visit. Please share your experience with us by completing your survey. We appreciate your feedback and thank you for choosing us for your care.\.br\ \.br\ [facility] Medicine Office/Clini c Noteon 09-29-2023 Family Medicine Office/Clinic Note HPI Staff Misa is a 68 year old female presenting for 3 month follow up DM, CKD, HTN, Hypokalemia Do you have any of the following symptoms? Foot Exam: due today ( per medicare wellness) Eye Exam: UTD Last A1C: Hgb A1C %: 7 % High (06/30/23 12:03:00) Statin: atorvastatin 40mg qd Patient is here for follow up on hypertension. How often are you checking your blood pressure? occasionally What are your average readings? says it's good when she remembers to check it _ Yearly BMP: 09/15/23_ flu: UTD questions/concerns: thinks she needs her glipizide refilled still struggling a bit with the covid, drainage and lots of coughing, some sneezing yet and cannot smell or taste anything History of Present Illness - Here for follow up - A1c is 6.1 today - No new issues. Recovering from Covid still. Review of Systems PHQ Score Initial Depression Screen Score: 0 SCORE Physical Exam Vitals & Measurements T: 36.5 ?C(Oral) HR: 58(Peripheral) RR: 18 BP: 120/72 SpO2: 95% HT: 60 in HT: 152 cm WT: 111.0 kg WT: 244.2 lb BMI: 48.04 General: alert, no acute distress ENMT: oral mucosa moist, Cardiovascular: regular rate and rhythm, normal peripheral perfusion Respiratory: Lungs CTA, respirations non labored Extremities: no deformity, no trauma Neurological: oriented x 4, LOC appropriate for age, CN II-XII intact, motor strength equal & normal bilaterally, speech normal Abdomen: Soft, Nontender, Non-distended, + BS Onchomycosis noted on all toe nails Diabetic Foot Exam Decreased Monofilament Sensation Foot: Left - Normal, Right - Normal Bunions/Foot Deformity: Left - Normal, Right - Normal Abnormal Pulse Foot: Left - Normal, Right - Normal Skin Lesions Foot: Left - Normal, Right - Normal Foot Exam Result: Normal foot exam Assessment/Plan 1. Hypertension (I10: Essential (primary) hypertension) - At goal. - Continue meds as before Ordered: A1c POC 67034 A1c POC 85260 Body Mass Index (BMI) documented 3008F Current tobacco non-user 1036F Depression Screening Negative 3352F [facility] External Ambulatory Referral Influenza immunization administered or previously received 4274F Most recent diastolic blood pressure <80 mm Hg 3078F Patient screen for fall risk: no falls in last year or 1 fall with no injury in last year 1101F Systolic BP <130 mm Hg (Most Recent) 3074F 2. Hypokalemia (E87.6: Hypokalemia) - Resolved Ordered: A1c POC 88859 A1c POC 35902 Body Mass Index (BMI) documented 3008F Current tobacco non-user 1036F Depression Screening Negative 3352F [facility] External Ambulatory Referral Influenza immunization administered or previously received 4274F Most recent diastolic blood pressure <80 mm Hg 3078F Patient screen for fall risk: no falls in last year or 1 fall with no injury in last year 1101F Systolic BP <130 mm Hg (Most Recent) 3074F 3. Stage 3a chronic kidney disease (CKD) (N18.31: Chronic kidney disease, stage 3a) - Stable Ordered: A1c POC 84074 A1c POC 59660 Body Mass Index (BMI) documented 3008F Current tobacco non-user 1036F Depression Screening Negative 3352F [facility] External Ambulatory Referral Influenza immunization administered or previously received 4274F Most recent diastolic blood pressure <80 mm Hg 3078F Patient screen for fall risk: no falls in last year or 1 fall with no injury in last year 1101F Systolic BP <130 mm Hg (Most Recent) 3074F 4. Type 2 diabetes mellitus with stage 3a chronic kidney disease and hypertension (E11.22: Type 2 diabetes mellitus with diabetic chronic kidney disease) - Will do a POC A1c Ordered: A1c POC 18727 A1c POC 91670 Body Mass Index (BMI) documented 3008F Current tobacco non-user 1036F Depression Screening Negative 3352F [facility] External Ambulatory Referral Influenza immunization administered or previously received 4274F Most recent diastolic blood pressure <80 mm Hg 3078F Patient screen for fall risk: no falls in last year or 1 fall with no injury in last year 1101F Systolic BP <130 mm Hg (Most Recent) 3074F 5. BMI 45.0-49.9, adult (Z68.42: Body mass index [BMI] 45.0-49.9, adult) - BMI education given Ordered: A1c POC 51041 A1c POC 10366 Body Mass Index (BMI) documented 3008F Current tobacco non-user 1036F Depression Screening Negative 3352F [facility] External Ambulatory Referral Influenza immunization administered or previously received 4274F Most recent diastolic blood pressure <80 mm Hg 3078F Patient screen for fall risk: no falls in last year or 1 fall with no injury in last year 1101F Systolic BP <130 mm Hg (Most Recent) 3074F 6. Onychomycosis (B35.1: Tinea unguium) - Will send to podaitry to help 7. Class 3 obesity (E66.01: Morbid (severe) obesity due to excess calories) - Diet and exercise advised Ordered: Body Mass Index (BMI) documented 3008F Current tobacco non-user 1036F Depression Screening Negative 3352F Influenza immunization administered or previously rece (more content not included)... Normal [facility] Comment on above: Result Comment: Elec tronically Signed By: Denis PATTEN, Willian Weiner\.br\Date and Time Signed: 09/29/23 11:54 EST Patient Educationon 09-29-20 Patient Education Nutrition BMI for Adults What is BMI? Body mass index (BMI) is a number that is calculated from a person's weight and height. BMI can help estimate how much of a person's weight is composed of fat. BMI does not measure body fat directly. Rather, it is an alternative to procedures that directly measure body fat, which can be difficult and expensive. BMI can help identify people who may be at higher risk for certain medical problems. What are BMI measurements used for? BMI is used as a screening tool to identify possible weight problems. It helps determine whether a person is obese, overweight, a healthy weight, or underweight. BMI is useful for: ? Identifying a weight problem that may be related to a medical condition or may increase the risk for medical problems. ? Promoting changes, such as changes in diet and exercise, to help reach a healthy weight. BMI screening can be repeated to see if these changes are working. How is BMI calculated? BMI involves measuring your weight in relation to your height. Both height and weight are measured, and the BMI is calculated from those numbers. This can be done either in [place] ([place] or metric measurements. Note that charts and online BMI calculators are available to help you find your BMI quickly and easily without having to do these calculations yourself. To calculate your BMI in [place] ([place] measurements: 1. Measure your weight in pounds (lb). 2. Multiply the number of pounds by 703. ? For example, for a person who weighs 180 lb, multiply that number by 703, which equals 126,540. 3. Measure your height in inches. Then multiply that number by itself to get a measurement called inches squared. ? For example, for a person who is 70 inches tall, the inches squared measurement is 70 inches x 70 inches, which equals 4,900 inches squared. 4. Divide the total from step 2 (number of lb x 703) by the total from step 3 (inches squared): 126,540 ? 4,900 = 25.8. This is your BMI. To calculate your BMI in metric measurements: 1. Measure your weight in kilograms (kg). 2. Measure your height in meters (m). Then multiply that number by itself to get a measurement called meters squared. ? For example, for a person who is 1.75 m tall, the meters squared measurement is 1.75 m x 1.75 m, which is equal to 3.1 meters squared. 3. Divide the number of kilograms (your weight) by the meters squared number. In this example: 70 ? 3.1 = 22.6. This is your BMI. What do the results mean? BMI charts are used to identify whether you are underweight, normal weight, overweight, or obese. The following guidelines will be used: ? Underweight: BMI less than 18.5. ? Normal weight: BMI between 18.5 and 24.9. ? Overweight: BMI between 25 and 29.9. ? Obese: BMI of 30 or above. Keep these notes in mind: ? Weight includes both fat and muscle, so someone with a muscular build, such as an athlete, may have a BMI that is higher than 24.9. In cases like these, BMI is not an accurate measure of body fat. ? To determine if excess body fat is the cause of a BMI of 25 or higher, further assessments may need to be done by a health care provider. ? BMI is usually interpreted in the same way for men and women. Where to find more information For more information about BMI, including tools to quickly calculate your BMI, go to these websites: ? Centers for Disease Control and Prevention: www.cdc.gov ? [place] [employer]: www.heart.org ? National Heart, Lung, and Blood [place]: www.nhlbi.nih.gov Summary ? Body mass index (BMI) is a number that is calculated from a person's weight and height. ? BMI may help estimate how much of a person's weight is composed of fat. BMI can help identify those who may be at higher risk for certain medical problems. ? BMI can be measured using Thai measurements or metric measurements. ? BMI charts are used to identify whether you are underweight, normal weight, overweight, or obese. This information is not intended to replace advice given to you by your health care provider. Make sure you discuss any questions you have with your health care provider. Document Revised: 06/21/2020 Document Reviewed: 04/28/2020 [employer] Patient Education ? 2022 [employer] [facility] Physician Referralon 023 Physician Referral [id number] 1.00TIFF [facility] RAD - MISCon 09-25-2023 RAD - MISC [id number]#1 .00TIFF [facility] Ambulatory Visit Summaryon 1 11-25-2022 Ambulatory Visit Summary MISA SANTOS :1955 Visit Date:09/24/2023 Ambulatory Visit Instructions Your Care Team Attending Physician - Willian Barrios MD Primary Care Physician - Willian Barrios MD This Is Your Medications List Misc Prescription (Lancets) Misc Prescription (Misc DME Prescription) albuterol (Albuterol (Eqv-ProAir HFA) 90 mcg/inh inhalation aerosol) aspirin (aspirin 81 mg oral capsule) atorvastatin (atorvastatin 40 mg Tab) glipiZIDE (glipiZIDE 5 mg Tab) hydrochlorothiazide-l osartan (hydrochlorothiazide- losartan 25 mg-100 mg Tab) levothyroxine (levothyroxine 75 mcg (0.075 mg) Tab) metoprolol (Metoprolol tartrate 25 mg Tab) Procedures Performed Colonoscopy (07/24/2023), Bone marrow biopsy (06/24/2023), Carpal tunnel release, section, AWA BSO - Total abdominal hysterectomy and bilateral salpingo-oophorectomy . Discharge Vitals Temperature (Oral) 36.9 ?C Heart Rate (Peripheral) 58 Respiratory Rate 20 Blood Pressure 122/82 Height 152 cm Height 60 in Weight 109.8 kg Weight 241.56 lb BMI 47.52 What to do next Scheduled Follow-Up Appointments Friday 11:20 AM EST With: Denis PATTEN, Willian Weiner Where: [facility] Invalid Interpretation Code 278 [facility] [address] [place] [address]- \.br\ Friday 11:00 AM EST \.br\ With:\.br\ Where: [facility] Medicine Office/Clini c Noteon 09-24-2023 Family Medicine Office/Clinic Note HPI Staff Misa is a 68 year old female presenting for lung check, + covid 09/17 Headache persists, has a cough with milky phlegm, drainage and stuffy nose and arms and legs feel heavy flu: UTD History of Present Illness - Here for follow up on Covid - Feeling a little better. - Still not feeling well. Review of Systems PHQ Score Initial Depression Screen Score: 0 SCORE Physical Exam Vitals & Measurements T: 36.9 ?C(Oral) HR: 58(Peripheral) RR: 20 BP: 122/82 SpO2: 96% HT: 60 in HT: 152 cm WT: 109.8 kg WT: 241.56 lb BMI: 47.52 General: alert, no acute distress ENMT: oral mucosa moist, Cardiovascular: regular rate and rhythm, normal peripheral perfusion Respiratory: Lungs CTA, respirations non labored Extremities: no deformity, no trauma Neurological: oriented x 4, LOC appropriate for age, CN II-XII intact, motor strength equal & normal bilaterally, speech normal Abdomen: Soft, Nontender, Non-distended, + BS Assessment/Plan 1. COVID (U07.1: COVID-19) - Will do more tessalon perls, Flovent and flonase - Reviewed CXR - Follow up PRN 2. 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 Orders: fluticasone, = 2 puff(s), Inhalation, BID, # 12 gram, Refills(s) 0, Pharmacy: [facility]/pharmacy #[id number], 152, cm, 09/24/23 14:41:00 EST, Height/Length Dosing, 109.8, kg, 09/24/23 14:41:00 EST, Weight Dosing fluticasone nasal, 2 spray(s), Nasal, Daily, 16 gram, Refill(s) 0, each nostril, [facility]/pharmacy #[id number], 152, cm, 09/24/23 14:41:00 EST, Height/Length Dosing, 109.8, kg, 09/24/23 14:41:00 EST, Weight Dosing Follow-up No qualifying data available Patient Education COVID-19 Problem List/Past Medical History Ongoing Allergic rhinitis Anal fissure Anemia Breast cancer screening Colon cancer screening COVID GI bleed History of colon polyps Hospital discharge follow-up Hypertension Hypokalemia Hypothyroid Lymphopenia Pericapsulitis of shoulder Polyp of colon Positive colorectal cancer screening using Cologuard test Restrictive lung disease Rotator cuff tendonitis Stage 3a chronic kidney disease (CKD) Thrombocytopenia Total bilirubin, elevated Tremor, essential Type 2 diabetes mellitus with stage 3a chronic kidney disease and hypertension Historical No qualifying data Procedure/Surgical History Colonoscopy (07/24/2023), Bone marrow biopsy (06/24/2023), Carpal tunnel release, section, AWA BSO - Total abdominal hysterectomy and bilateral salpingo-oophorectomy . Medications Albuterol (Eqv-ProAir HFA) 90 mcg/inh inhalation aerosol, 2 puff(s), Inhalation, q6hr aspirin 81 mg oral capsule, 81 mg= 1 cap(s), Oral, Daily atorvastatin 40 mg Tab, See Instructions, Not taking Flonase 0.05 mg/inh Pachuta, 2 spray(s), Nasal, Daily Flovent HFA 110 Aerosol, 2 puff(s), Inhalation, BID glipiZIDE 5 mg Tab, 5 mg= 1 tab(s), Oral, Daily, 3 refills hydrochlorothiazide-l osartan 25 mg-100 mg Tab, 1 tab(s), Oral, Daily, 1 refills Lancets, See Instructions, 1 refills levothyroxine 75 mcg (0.075 mg) Tab, 75 mcg= 1 tab(s), Oral, Daily, 3 refills Metoprolol tartrate 25 mg Tab, 25 mg= 1 tab(s), Oral, BID Misc DME Prescription, See Instructions, 1 refills Allergies metFORMIN (Nausea, Dizziness, Unknown) sulfa drugs (Hives, Unknown) Social History Alcohol Household alcohol concerns: No., 08/29/2023 Tobacco Never (less than 100 in lifetime) Tobacco Use:. Never Smokeless Tobacco Use:. Household tobacco concerns: No., 09/24/2023 Family History Diabetes mellitus type 2: Father. Heart disease: Mother and Father. Hypertension: Father. Metastatic cancer: Mother. Immunizations Vaccine Date Status Comments SARS-CoV-2 mRNA (tosunnyn 5y-11y) vac 07/28/2023 Recorded Covid 19 pfizer influenza virus vaccine, inactivated 07/28/2023 Recorded influenza virus vaccine, inactivated - Not Given Parent Or Guardian Refuses influenza virus vaccine, inactivated 07/24/2022 Recorded SARS-CoV-2 (COVID-19) [id number] 07/24/2022 Recorded SARSCoV2 mRNA(lcgeeugby-mcjd-n ucros) vac 01/15/2022 Recorded influenza virus vaccine, inactivated 07/24/2021 Recorded SARS-CoV-2 (COVID-19) mRNA BNT-162b2 vax 07/10/2021 Recorded SARS-CoV-2 (COVID-19) mRNA BNT-162b2 vax 01/02/2021 Recorded SARS-CoV-2 (COVID-19) mRNA BNT-162b2 vax 12/11/2020 Recorded pneumococcal 23-valent vaccine 06/21/2020 Recorded influenza virus vaccine, inactivated 06/21/2020 Recorded influenza virus vaccine, inactivated 07/13/2019 Recorded influenza virus vaccine, inactivated 07/10/2018 Recorded pneumococcal 23-valent vaccine 11/20/2016 Recorded Normal [facility] Comment on above: Result Comment: Elec tronically Signed By: Willian Barrios MD\.br\Date and Time Signed: 09/24/23 14:57 EST Ambulatory Visit Summaryon 1 11-18-2022 Ambulatory Visit Summary MISA SANTOS :1955 Visit Date:09/17/2023 Ambulatory Visit Instructions Your Care Team Attending Physician - Willian Barrios MD Primary Care Physician - Willian Barrios MD This Is Your Medications List Misc Prescription (Lancets) Misc Prescription (Misc DME Prescription) albuterol (Albuterol (Eqv-ProAir HFA) 90 mcg/inh inhalation aerosol) aspirin (aspirin 81 mg oral capsule) atorvastatin (Lipitor 40 mg Tab) glipiZIDE (glipiZIDE 5 mg Tab) hydrochlorothiazide-l osartan (hydrochlorothiazide- losartan 25 mg-100 mg Tab) levothyroxine (levothyroxine 75 mcg (0.075 mg) Tab) metoprolol (Metoprolol tartrate 25 mg Tab) Procedures Performed Colonoscopy (07/24/2023), Bone marrow biopsy (06/24/2023), Carpal tunnel release, section, AWA BSO - Total abdominal hysterectomy and bilateral salpingo-oophorectomy . Discharge Vitals Temperature (Temporal Artery) 37 ?C Heart Rate (Peripheral) 76 Respiratory Rate 20 Height 152 cm Height 60 in Weight 11.2 kg Weight 24.64 lb BMI 4.85 What to do next Scheduled Follow-Up Appointments Friday 10:00 AM EST With: Where: [facility] Friday 11:20 AM EST With: Willian Barrios MD Where: [facility] [place] Invalid Interpretation Code [address] [address]- \.br\ Friday 11:00 AM EST \.br\ With:\.br\ Where: [facility] Office/Clini c Noteon 09-17-2023 [facility] Office/Clinic Note HPI Staff Pt is a 68 yo presenting with cough, cold sx, clear drainage, chills, SOB. Has used tylenol, but no other meds. No known exposure. Symptoms onset last night. History of Present Illness - Please see staff HPI. Review of Systems PHQ Score Initial Depression Screen Score: 0 SCORE Physical Exam Vitals & Measurements T: 37 ?C(Temporal Artery) HR: 76(Peripheral) RR: 20 BP: 110/64 SpO2: 94% HT: 60 in HT: 152 cm WT: 11.2 kg WT: 24.64 lb BMI: 4.85 General: alert, no acute distress ENMT: oral mucosa moist, Cardiovascular: regular rate and rhythm, normal peripheral perfusion Respiratory: Lungs CTA, respirations non labored Extremities: no deformity, no trauma Neurological: oriented x 4, LOC appropriate for age, CN II-XII intact, motor strength equal & normal bilaterally, speech normal Abdomen: Soft, Nontender, Non-distended, + BS Assessment/Plan 1. COVID (U07.1: COVID-19) - Covid positive - Azithro but no medrol given BS concerns - DIscussed with the patient. - Precautions discussed in detail. When to return discussed along with when to go to the ER. Pt verbalized understanding. 2. Cough (R05.9: Cough, unspecified) - As above. Ordered: Influenza Type A&B POC 98070 Rapid COVID POC 81547 Orders: azithromycin, = 1 packet(s), Oral, As Directed, as directed on package labeling, X 5 day(s), # 6 tab(s), Refills(s) 0, Pharmacy: [facility]/pharmacy #[id number], 152, cm, 09/17/23 13:20:00 EST, Height/Length Dosing, 11.2, kg, 09/17/23 13:20:00 EST, Weight Dosing Follow-up No qualifying data available Patient Education Cough, Adult Problem List/Past Medical History Ongoing Allergic rhinitis Anal fissure Anemia Breast cancer screening Colon cancer screening COVID GI bleed History of colon polyps Hospital discharge follow-up Hypertension Hypokalemia Hypothyroid Lymphopenia Pericapsulitis of shoulder Polyp of colon Positive colorectal cancer screening using Cologuard test Restrictive lung disease Rotator cuff tendonitis Stage 3a chronic kidney disease (CKD) Thrombocytopenia Total bilirubin, elevated Tremor, essential Type 2 diabetes mellitus with stage 3a chronic kidney disease and hypertension Historical No qualifying data Procedure/Surgical History Colonoscopy (07/24/2023), Bone marrow biopsy (06/24/2023), Carpal tunnel release, section, AWA BSO - Total abdominal hysterectomy and bilateral salpingo-oophorectomy . Medications Albuterol (Eqv-ProAir HFA) 90 mcg/inh inhalation aerosol, 2 puff(s), Inhalation, q6hr aspirin 81 mg oral capsule, 81 mg= 1 cap(s), Oral, Daily azithromycin 250 mg Tab 5-day Dose Pack (Z-Subhash), 1 packet(s), Oral, As Directed glipiZIDE 5 mg Tab, 5 mg= 1 tab(s), Oral, Daily, 3 refills hydrochlorothiazide-l osartan 25 mg-100 mg Tab, 1 tab(s), Oral, Daily, 1 refills Lancets, See Instructions, 1 refills levothyroxine 75 mcg (0.075 mg) Tab, 75 mcg= 1 tab(s), Oral, Daily, 3 refills Lipitor 40 mg Tab, 40 mg= 1 tab(s), Oral, Daily Metoprolol tartrate 25 mg Tab, 25 mg= 1 tab(s), Oral, BID Misc DME Prescription, See Instructions, 1 refills Allergies metFORMIN (Nausea, Dizziness, Unknown) sulfa drugs (Hives, Unknown) Social History Alcohol Household alcohol concerns: No., 08/29/2023 Tobacco Never (less than 100 in lifetime) Tobacco Use:. Never Smokeless Tobacco Use:. Household tobacco concerns: No., 09/17/2023 Family History Diabetes mellitus type 2: Father. Heart disease: Mother and Father. Hypertension: Father. Metastatic cancer: Mother. Immunizations Vaccine Date Status Comments SARS-CoV-2 mRNA (tosunnyn 5y-11y) vac 07/28/2023 Recorded Covid 19 pfizer influenza virus vaccine, inactivated 07/28/2023 Recorded influenza virus vaccine, inactivated - Not Given Parent Or Guardian Refuses influenza virus vaccine, inactivated 07/24/2022 Recorded SARS-CoV-2 (COVID-19) [id number] 07/24/2022 Recorded SARSCoV2 mRNA(ivon isaacs) vac 01/15/2022 Recorded influenza virus vaccine, inactivated 07/24/2021 Recorded SARS-CoV-2 (COVID-19) mRNA BNT-162b2 vax 07/10/2021 Recorded SARS-CoV-2 (COVID-19) mRNA BNT-162b2 vax 01/02/2021 Recorded SARS-CoV-2 (COVID-19) mRNA BNT-162b2 vax 12/11/2020 Recorded pneumococcal 23-valent vaccine 06/21/2020 Recorded influenza virus vaccine, inactivated 06/21/2020 Recorded influenza virus vaccine, inactivated 07/13/2019 Recorded influenza virus vaccine, inactivated 07/10/2018 Recorded pneumococcal 23-valent vaccine 11/20/2016 Recorded Lab Results Ambulatory Point of Care Results Influenza A POC: Negative (09/17/23 13:47:00) Influenza B POC: Negative (09/17/23 13:47:00) Rapid Covid POC: Positive (09/17/23 13:47:00) Normal [facility] Comment on above: Result Comment: Elec tronically Signed By: Denis PATTEN, Willian Beasley.br\Date and Time Signed: 09/17/23 17:34 EST Patient Educationon 09-17-20 Patient Education ENT Cough, Adult Coughing is a reflex that clears your throat and your airways (respiratory system). Coughing helps to heal and protect your lungs. It is normal to cough occasionally, but a cough that happens with other symptoms or lasts a long time may be a sign of a condition that needs treatment. An acute cough may only last 2?3 weeks, while a chronic cough may last 8 or more weeks. Coughing is commonly caused by: ? Infection of the respiratory systemby viruses or bacteria. ? Breathing in substances that irritate your lungs. ? Allergies. ? Asthma. ? Mucus that runs down the back of your throat (postnasal drip). ? Smoking. ? Acid backing up from the stomach into the esophagus (gastroesophageal reflux). ? Certain medicines. ? Chronic lung problems. ? Other medical conditions such as heart failure or a blood clot in the lung (pulmonary embolism). Follow these instructions at home: Medicines ? Take ukvk-thq-eqxwqzt and prescription medicines only as told by your health care provider. ? Talk with your health care provider before you take a cough suppressant medicine. Lifestyle ? Avoid cigarette smoke. Do not use any products that contain nicotine or tobacco, such as cigarettes, e-cigarettes, and chewing tobacco. If you need help quitting, ask your health care provider. ? Drink enough fluid to keep your urine pale yellow. ? Avoid caffeine. ? Do not drink alcohol if your health care provider tells you not to drink. General instructions ? Pay close attention to changes in your cough. Tell your health care provider about them. ? Always cover your mouth when you cough. ? Avoid things that make you cough, such as perfume, candles, cleaning products, or campfire or tobacco smoke. ? If the air is dry, use a cool mist vaporizer or humidifier in your bedroom or your home to help loosen secretions. ? If your cough is worse at night, try to sleep in a semi-upright position. ? Rest as needed. ? Keep all follow-up visits as told by your health care provider. This is important. Contact a health care provider if you: ? Have new symptoms. ? Cough up pus. ? Have a cough that does not get better after 2?3 weeks or gets worse. ? Cannot control your cough with cough suppressant medicines and you are losing sleep. ? Have pain that gets worse or pain that is not helped with medicine. ? Have a fever. ? Have unexplained weight loss. ? Have night sweats. Get help right away if: ? You cough up blood. ? You have difficulty breathing. ? Your heartbeat is very fast. These symptoms may represent a serious problem that is an emergency. Do not wait to see if the symptoms will go away. Get medical help right away. Call your local emergency services (911 in the [place] Do not drive yourself to the hospital. Summary ? Coughing is a reflex that clears your throat and your airways. It is normal to cough occasionally, but a cough that happens with other symptoms or lasts a long time may be a sign of a condition that needs treatment. ? Take kfaw-szl-hyqsdqk and prescription medicines only as told by your health care provider. ? Always cover your mouth when you cough. ? Contact a health care provider if you have new symptoms or a cough that does not get better after 2?3 weeks or gets worse. This information is not intended to replace advice given to you by your health care provider. Make sure you discuss any questions you have with your health care provider. Document Revised: 10/18/2019 Document Reviewed: 10/18/2019 [employer] Patient Education ? 2022 [employer] Normal [facility] .Interpretation:on 3 HCV Ab IA Ql Comment Invalid Interpretation Code [facility] Comment on above: Result Comment: Not infected with HCV unless early or acute infection is suspected (which may be delayed in an immunocompromised individual), or other evidence exists to indicate HCV infection. Performed at: [facility] [id number] PhD David Alexandra Performed By: #### 1 [id number] #### [facility] [address] [place] [address] HCV Antibody RFX to Quant PC Lanre 09-16-2023 HCV IgG IA Ql Non-Reactive Invalid Interpretation Code Non Reactive [facility] Comment on above: Result Comment: Perf ormed at: [address] [id number] PhD David Alexandra Performed By: #### 1 [id number] #### [facility] [address] [place] [address] HIV Screen 4th Generation wR fxon 09-16-2023 HIV 1+2 Ab+HIV1 p24 Ag IA Ql Non-Reactive Invalid Interpretation Code Non Reactive [facility] Comment on above: Result Comment: HIV Negative HIV-1/HIV-2 antibodies and HIV-1 p24 antigen were NOT detected. There is no laboratory evidence of HIV infection. Performed at: [address] [id number] PhD David Alexandra Performed By: #### 1 [id number] #### [facility] [address] [place] [address] Hep A IgMon 09-16-2023 HAV IgM IA Ql Negative Invalid Interpretation Code Negative [facility] Comment on above: Result Comment: Perf ormed at: [address] [id number] PhD David Alexandra Performed By: #### 1 [id number] #### [facility] [address] [place] [address] Hep B Core Ab, IgMon 023 HBV core IgM IA Ql Negative Invalid Interpretation Code Negative [facility] Comment on above: Result Comment: Perf ormed at: [address] [id number] PhD David Alexandra Performed By: #### 1 [id number] #### [facility] [address] [place] [address] Hep Bs Abon 09-16-2023 HBV surface Ab Ql (S) Non-Reactive Invalid Interpretation Code [facility] Comment on above: Result Comment: Non Reactive: Inconsistent with immunity, less than 10 mIU/mL Reactive: Consistent with immunity, greater than 9.9 mIU/mL Performed at: [address] [id number] PhD David Alexandra Performed By: #### 1 [id number] #### [facility] [address] [place] [address] Hep Bs Agon 09-16-2023 HBV surface Ag IA Ql Negative Invalid Interpretation Code Negative [facility] Comment on above: Result Comment: Perf ormed at: [address] [id number] PhD David Alexandra Performed By: #### 1 [id number] #### [facility] [address] [place] [address] Auto Diffon 09-15-2023 Basophils/100 WBC (Bld) 1.3 % Normal 0.0-2.0 [facility] Comment on above: Order Comment: Order Added by Discern Expert. Performed By: #### 9 [id number], [id number], [id number], 0632072, 6413800, 4895108, [id number], 1534554, [id number], 7754549, 4308146, 94795331, 6783026, 4312193, 2524840, 5107712, 5454096, 5528651 ####[address] [place] [address] Basophils/Leukocytes Auto (Bld) [Pure # fraction] 0.0 E9/L Normal 0.0-0.2 [facility] Comment on above: Order Comment: Order Added by Discern Expert. Performed By: #### 9 [id number], [id number], [id number], 5096587, 5537207, 2832479, [id number], 5253685, [id number], 2991903, 1006452, 18860711, 2401330, 0751080, 2266190, 4445180, 4242793, 7075374 ####[address] [address] Eosinophils/100 WBC (Bld) 3.4 % Normal 0.0-8.0 [facility] Comment on above: Order Comment: Order Added by Discern Expert. Performed By: #### 9 [id number], 6250668, [id number], 3706081, 4693555, 7838163, [id number], 3813982, 7547495443, 3959166, 4102043, 19741875, 4195064, 9889378, 6041384, 1946843, 0976169, 5199456 ####[address] [place] [address] Eosinophils/Leukocyt es Auto (Bld) [Pure # fraction] 0.1 E9/L Normal 0.0-0.5 [facility] Comment on above: Order Comment: Order Added by Discern Expert. Performed By: #### 9 [id number], 2195427, [id number], 1436189, 2330388, 3675100, 4192368099, 7409761, 6153569815, 3041675, 3786428, 96069768, 0096778, 6546168, 5715752, 6195996, 7473833, 5899450 ####[facility] [id number] [place] [address] Lymphocytes/100 WBC (Bld) 25.0 % Normal 14.0-50.0 [facility] Comment on above: Order Comment: Order Added by Discern Expert. Performed By: #### 9 [id number], 7465464, [id number], 3405330, 9144518, 2086625, 9739139215, 8673296, 4546425978, 7780603, 1055933, 10788412, 6702157, 9390267, 7588961, 0914513, 2799858, 9464932 ####[address] [place] [address] Lymphocytes/Leukocyt es Auto (Bld) [Pure # fraction] 0.7 E9/L Low 1.0-4.0 [facility] Comment on above: Order Comment: Order Added by Discern Expert. Performed By: #### 9 [id number], 7855120, [id number], 2158237, 2770147, 4974955, 9437978183, 7435603, 7254411684, 5150629, 1739410, 11994050, 3661860, 4762508, 9410725, 8247411, 4732987, 6087145 ####[address] [place] [address] Monocytes/100 WBC (Bld) 10.1 % Normal 4.0-14.0 [facility] Comment on above: Order Comment: Order Added by Discern Expert. Performed By: #### 9 [id number], 7309206, 6105084499, 3918549, 7393342, 7517399, 6757711409, 3643062, 6658411493, 6333866, 5054077, 81261676, 1801914, 8250707, 0232281, 2666823, 1829257, 3866661 ####[address] [place] [address] Monocytes/Leukocytes Auto (Bld) [Pure # fraction] 0.3 E9/L Normal 0.2-1.0 [facility] Comment on above: Order Comment: Order Added by Discern Expert. Performed By: #### 9 [id number], 1070478, [id number], 0592110, 6581960, 3829152, 8656352773, 4039457, 4898273673, 3601244, 3884061, 39727964, 3087535, 2795311, 4601585, 2522388, 3260689, 4767615 ####[facility] [address] [place] [address] Neutrophils/100 WBC (Bld) 60.2 % Normal 36.0-75.0 [facility] Comment on above: Order Comment: Order Added by Discern Expert. Performed By: #### 9 [id number], 5651418, [id number], 1693058, 2356834, 1570210, 0088703792, 7170643, 0851481238, 6460346, 4974874, 13977169, 2430297, 2119020, 7207736, 4897566, 5454535, 5365651 ####[facility] [address] [place] [address] Neutrophils/Leukocyt es Auto (Bld) [Pure # fraction] 1.6 E9/L Low 2.0-7.5 [facility] Comment on above: Order Comment: Order Added by Discern Expert. Performed By: #### 9 [id number], 7393212, [id number], 5916399, 2208453, 3129072, 6155580109, 6982574, 3413269102, 7142523, 8228410, 47503470, 0853844, 7071620, 1788356, 2253031, 3834616, 2510097 ####[facility] [id number] [place] [address] CBC w/ Auto Diffon 3 Erythrocyte distribution width (RBC) [Ratio] 13.2 % Normal 10.9-14.2 [facility] Comment on above: Performed By: #### 9 [id number], 2191626, [id number], 6028258, 5252848, 3041816, 8802936459, 3441461, 4584615351, 3114323, 9475928, 28760950, 1898528, 9059244, 5312140, 5382405, 5483563, 4839008 ####[address] [place] [address] Hematocrit (Bld) [Volume fraction] 36.5 % Normal 34.0-46.0 [facility] Comment on above: Performed By: #### 9 [id number], 0579995, 4011033256, 5491704, 5983946, 9651305, 3266394055, 1764976, 7764977484, 7339010, 4182136, 33419105, 6192876, 8165220, 9391370, 7525020, 9678030, 8169414 ####[address] [address] Hemoglobin (Bld) [Mass/Vol] 12.3 g/dL Normal 12.0-16.0 [facility] Comment on above: Performed By: #### 9 53729968, 7273165, 5230733467, 9340305, 1263433, 4534633, 3561601051, 5973139, 6406533012, 5498075, 7858644, 55311148, 9571628, 6591392, 6285588, 4762138, 8456520, 2352110 ####[address] [address] MCH (RBC) [Entitic mass] 31.3 pg Normal 27.0-34.0 [facility] Comment on above: Performed By: #### 9 67542639, 4588714, 8167578000, 2344530, 0151999, 5774718, 5690931824, 2199003, 2263191641, 3212722, 6824139, 62657476, 7527670, 6338133, 9946111, 4530697, 2998991, 6183122 ####[facility] [address] [place] [address] MCHC (RBC) [Mass/Vol] 33.7 g/dL Normal 31.4-36.0 [facility] Comment on above: Performed By: #### 9 38403016, 4200490, 8633833160, 0688470, 8692776, 4299659, 3992642588, 8727402, 2583931987, 8078092, 0015843, 20484675, 4690441, 8782151, 4992371, 9228412, 5261013, 3440771 ####[facility] [address] [place] [address] MCV (RBC) [Entitic vol] 92.8 fL Normal 80.0-100.0 [facility] Comment on above: Performed By: #### 9 03719437, 5448647, 0561235921, 5692356, 4500520, 0081971, 2635633866, 6651320, 7924736604, 8249019, 0079997, 67572032, 4281594, 7219423, 5015424, 2315467, 4162437, 7541998 ####[address] [place] [address] Platelet mean volume (Bld) [Entitic vol] 8.5 fL Normal 6.4-10.8 [facility] Comment on above: Performed By: #### 9 61840282, 7158921, 5426378263, 2819642, 3589947, 4925935, 7759307048, 5993033, 0842441017, 3790798, 0801571, 17536455, 8424139, 9322375, 0225054, 8899549, 1010360, 7667296 ####[address] [place] [address] Platelets (Bld) [#/Vol] 89.0 E9/L Low 150.0-500.0 [facility] Comment on above: Result Comment: Plat elet count verified using smear estimate Performed By: #### 9 12626927, 9306180, 0757764575, 1381963, 8330112, 5336117, 9596017550, 0422341, 4888040700, 7689457, 3202422, 84800127, 5056018, 9829900, 3870414, 7356019, 2038602, 4751776 ####[facility] [address] [place] [address] RBC (Bld) [#/Vol] 3.9 E12/L Low 4.3-5.9 [facility] Comment on above: Performed By: #### 9 39802886, 3944320, 2250064699, 3693114, 3139208, 0352580, 3233463281, 0144084, 7571376414, 1851002, 2420994, 57674511, 3326265, 0568728, 8856932, 5768395, 4700634, 4867593 ####[facility] [address] [place] [address] WBC corrected for nucl RBC Auto (Bld) [#/Vol] 2.6 E9/L Low 4.0-11.0 [facility] Comment on above: Performed By: #### 9 22748601, 5966247, 1172802555, 6336112, 6180641, 0138326, 5404113249, 5857657, 3154395389, 6283178, 8712720, 96125841, 4936921, 1568031, 6437266, 0847943, 8764587, 9527430 ####[facility] [address] [place] [address] CHEMISTRYOrdered By: SYSTEM SYSTEM on 09-15-2023 Albumin [Mass/Vol] 3.5 g/dL Normal 3.3 - 5.0 gm/dL [facility] Albumin/Globulin [Mass ratio] 1.0 {ratio} Low 1.1 - 2.2 [facility] ALP [Catalytic activity/Vol] 81 [iU]/d Normal 21 - 98 Int._Unit/L [facility] ALT No additional P-5'-P [Catalytic activity/Vol] 23 [iU]/d Normal 6 - 46 Int._Unit/L [facility] Anion gap [Moles/Vol] 11 mmol/L Normal 6 - 16 mEq/L [facility] AST [Catalytic activity/Vol] 42 [iU]/d Normal 5 - 43 Int._Unit/L [facility] Bilirubin [Mass/Vol] 1.0 mg/dL Normal 0.0 - 1.1 mg/dL [facility] Calcium [Mass/Vol] 9.0 mg/dL Normal 8.9 - 11.1 mg/dL [facility] Chloride [Moles/Vol] 103 mmol/L Normal 101 - 111 mmol/ L [facility] CO2 [Moles/Vol] 24 mmol/L Normal 21 - 31 mmol/L [facility] Cobalamin (Vitamin B12) [Mass/Vol] 508 pg/mL Normal 50 - 1500 pg/mL [facility] Creatinine [Mass/Vol] 1.1 mg/dL Normal 0.5 - 1.3 mg/dL [facility] Ferritin [Mass/Vol] 20 ng/mL Normal 11 - 307 ng/mL [facility] Comment on above: Interpretive Data: N ORMALS MEN <30 YRS 16-132 ng/mL MEN >30 YRS 8-338 ng/mL WOMEN (PREMEN) 6-104 ng/mL WOMEN (POSTMEN) 12-210 ng/mL Folate [Mass/Vol] 14.7 ng/mL Normal >=6.7ng/mL [facility] Re misol GFR/1.73 sq M.predicted among non-blacks MDRD (S/P/Bld) [Vol rate/Area] 54 mL/min/1.73 m2 Low >=59mL/min/1.73 m2 [facility] Chem S Comment on above: Interpretive Data: C hronic kidney disease could be indicated at eGFR's of less than 60 mL/min/1.73m2. Kidney failure is indicated at less than 15 mL/min/1.73m2. Globulin (S) [Mass/Vol] 3.4 g/dL Normal 1.4 - 4.0 gm/dL [facility] Glucose [Mass/Vol] 307 mg/dL High 55 - 199 mg/dL [facility] Comment on above: Interpretive Data: I f this glucose result represents a fasting glucose, interpretation should refer to the following reference range: 55-99 mg/dL Iron [Mass/Vol] 73 ug/dL Normal 35 - 153 mcg/dL [facility] Iron binding capacity [Mass/Vol] 401 ug/dL High 250 - 400 mcg/dL [facility] l Iron saturation [Mass fraction] 18 % Low 20 - 50 % [facility] LDH [Catalytic activity/Vol] 181 [iU]/d Normal 93 - 218 Int._Unit/L [facility] Potassium [Moles/Vol] 3.9 mmol/L Normal 3.5 - 5.3 mmol/L [facility] Protein [Mass/Vol] 6.9 g/dL Normal 6.0 - 7.8 gm/dL [facility] Sodium [Moles/Vol] 134 mmol/L Low 135 - 145 mmol/L [facility] Transferrin [Mass/Vol] 286 mg/dL Normal 200 - 370 mg/dL [facility] Urea nitrogen [Mass/Vol] 12 mg/dL Normal 5 - 21 mg/dL [facility] Urea nitrogen/Creatinine [Mass ratio] 11 mg/mg Normal 10 - 20 [facility] CMPon 09-15-2023 Albumin [Mass/Vol] 3.5 g/dL Normal 3.3-5.0 [facility] Comment on above: Performed By: #### 9 98615793, 2758200, 6609744176, 5271088, 6716999, 1632976, 9649133033, 5300359, 5174607614, 0698037, 9693447, 25261477, 6465205, 9241052, 2240655, 6730168, 2183839, 3770901 ####[facility] [address] [place] [address] Albumin/Globulin (S) [Mass conc ratio] 1.0 Low 1.1-2.2 [facility] Comment on above: Performed By: #### 9 52373022, 9436987, 2365650535, 8946703, 4921110, 4067364, 9165574622, 9618097, 4258218308, 3257065, 3571800, 15224929, 9216797, 4910120, 5985779, 3776370, 4859229, 1091320 ####[facility] [address] [place] [address] ALP [Catalytic activity/Vol] 81 Int._Unit/L Normal 21-98 [facility] Comment on above: Performed By: #### 9 65969058, 2293729, 8275876135, 6503654, 7476314, 1674343, 3641616064, 7847077, 5732992398, 0031995, 9336057, 95888742, 9888326, 9640953, 7731941, 5934082, 4334176, 6072676 ####[address] [place] [address] ALT No additional P-5'-P [Catalytic activity/Vol] 23 Int._Unit/L Normal 6-46 [facility] Comment on above: Performed By: #### 9 89240610, 0054667, 4179241170, 3587426, 1953934, 5941798, 0974862096, 3161370, 0270273871, 4108849, 2984108, 10403426, 7076368, 3507454, 0851112, 4660429, 3908539, 7076413 ####[address] [place] [address] Anion gap [Moles/Vol] 11 mmol/L Normal 6-16 [facility] Comment on above: Performed By: #### 9 62020130, 8104276, 2343005039, 0563020, 2110005, 6202682, 4165405871, 2008835, 8249535886, 1528349, 1635352, 52232022, 2407559, 2755727, 8015242, 6773459, 1368922, 9929753 ####[facility] [address] [place] [address] AST [Catalytic activity/Vol] 42 Int._Unit/L Normal 5-43 [facility] Comment on above: Performed By: #### 9 49573612, 4147147, 8993396331, 8801442, 0731831, 0269518, 9551485322, 2503100, 6283411549, 4852954, 3930211, 61430626, 6898882, 6153845, 7761742, 9975479, 1466245, 3178605 ####[facility] [address] [place] [address] Bilirubin [Mass/Vol] 1.0 mg/dL Normal 0.0-1.[address] [facility] Comment on above: Performed By: #### 9 75727506, 4526787, 8606468062, 7161808, 2487831, 1269967, 2339092368, 2334881, 4050846290, 1086594, 7107885, 03232268, 1086248, 9885552, 6586419, 1011945, 7313667, 5575892 ####[address] [place] [address] Calcium [Mass/Vol] 9.0 mg/dL Normal 8.9-11.1 [facility] Comment on above: Performed By: #### 9 36908941, 2293896, 5134737691, 5404864, 4174842, 2482581, 1499150201, 3481086, 9539507531, 0193782, 6950233, 86817745, 5868920, 1588040, 7672967, 9511199, 3550478, 5544345 ####[address] [place] [address] Chloride [Moles/Vol] 103 mmol/L Normal 101-[address] [facility] Comment on above: Performed By: #### 9 65959256, 2276724, 1965587415, 9072636, 1024898, 9376516, 6825959783, 7384233, 9428935218, 1174465, 2805890, 71863771, 1135168, 4823035, 6731969, 9660204, 4232336, 2310525 ####[address] [address] CO2 [Moles/Vol] 24 mmol/L Normal 21-31 [facility] Comment on above: Performed By: #### 9 22122159, 4452558, 7161352658, 2478892, 4314486, 5418781, 9881799918, 9652124, 1013940612, 2323125, 3196229, 92355513, 7114354, 4480944, 8577426, 6539290, 7688836, 4813265 ####[facility] [address] [place] [address] Creatinine [Mass/Vol] 1.1 mg/dL Normal 0.5-1.3 [facility] Comment on above: Performed By: #### 9 28810493, 2176221, 0796539062, 1884110, 1517946, 1678948, 3740337079, 8248809, 6791261965, 3595979, 5309900, 85000677, 5673157, 2686179, 8042333, 5281160, 7286023, 7228577 ####[facility] [address] [place] [address] Globulin (S) [Mass/Vol] 3.4 g/dL Normal 1.4-4.0 [facility] Comment on above: Performed By: #### 9 74750933, 1451369, 7405018172, 4381590, 1944378, 6489376, 7840469977, 3213081, 8198911005, 7361246, 9501121, 47296356, 5775967, 8362369, 0558457, 3316533, 1848784, 4425729 ####[facility] [address] [place] [address] Glucose [Mass/Vol] 307 mg/dL High 55-199 [facility] Comment on above: Result Comment: If t his glucose result represents a fasting glucose, interpretation should refer to the following reference range: 55-99 mg/dL Performed By: #### 9 52936993, 2777178, 8506882110, 5295585, 9453041, 6371035, 6477501020, 5462942, 0892348407, 7336813, 0854426, 58088511, 2698338, 4191409, 8746802, 9822446, 1156400, 6664061 ####[facility] [address] [place] [address] Potassium [Moles/Vol] 3.9 mmol/L Normal 3.5-5.3 [facility] Comment on above: Performed By: #### 9 33453744, 5435774, 9946584725, 8145465, 2099454, 7790597, 1152805164, 1467264, 0081929974, 1441960, 2628722, 53519227, 6150923, 4228326, 2099066, 6652578, 7826381, 3918824 ####[address] [place] [address] Protein [Mass/Vol] 6.9 g/dL Normal 6.0-7.8 [facility] Comment on above: Performed By: #### 9 29767449, 4944835, 9155755162, 0446816, 9149964, 4924715, 5830479391, 4596020, 7542445737, 1923309, 9862915, 07629091, 8441533, 9457521, 0875457, 7392548, 0435216, 8941306 ####[address] [place] [address] Sodium [Moles/Vol] 134 mmol/L Low 135-145 [facility] Comment on above: Performed By: #### 9 43394450, 9871536, 5120280870, 7256899, 2154877, 4076275, 8544484052, 5505098, 7611638501, 3456494, 2046598, 62049389, 2657550, 4460441, 5719079, 6452521, 0404689, 0370238 ####[facility] [address] [place] [address] Urea nitrogen [Mass/Vol] 12 mg/dL Normal 5-21 [facility] Comment on above: Performed By: #### 9 96786364, 5638026, 8731449632, 3909910, 0559336, 9536575, 0568235039, 6230883, 6446305326, 3555590, 3100165, 77534886, 3056662, 0657685, 0563439, 5436497, 0178669, 4138364 ####[facility] [address] [place] [address] Urea nitrogen/Creatinine [Mass ratio] 11 No Units Normal 10-20 [facility] Comment on above: Performed By: #### 9 93138160, 8773292, 1662220443, 4806088, 3370110, 0470585, 4698632502, 9982295, 0515404425, 0670070, 9588649, 56026954, 2888247, 6027835, 7569776, 9988196, 8797931, 3440690 ####[facility] [address] [place] [address] Consent for Treatmenton 12-0 Consent for Treatment [id number] .[id number] Normal [facility] Ferritinon 09-15-2023 Ferritin [Mass/Vol] 20 ng/mL Normal 11-307 [facility] Comment on above: Result Comment: NORM ALS MEN <30 YRS 16-132 ng/mL MEN >30 YRS 8-338 ng/mL WOMEN (PREMEN) 6-104 ng/mL WOMEN (POSTMEN) 12-210 ng/mL Performed By: #### 9 40853492, 4334125, 5839415616, 5789464, 9006574, 1639185, 9026888526, 1907915, 4510978567, 1574737, 4719173, 82618438, 6410693, 7845786, 2855880, 9900933, 1086908, 3254305 ####[facility] [address] [place] [address] Folateon 09-15-2023 Folate [Mass/Vol] 14.7 ng/mL Normal >=6.7 [facility] Comment on above: Performed By: #### 1 [id number] #### [facility] [address] [place] [address] HEMATOLOGYOrdered By: SYSTEM SYSTEM on 09-15-2023 Basophils/100 WBC (Bld) 1.3 % Normal 0.0 - 2.0 % [facility]Auto[facility] Basophils/Leukocytes Auto (Bld) [Pure # fraction] 0.0 E9/L Normal 0.0 - 0.2 E9/L [facility]Auto[facility] Eosinophils/100 WBC (Bld) 3.4 % Normal 0.0 - 8.0 % [facility]Auto[facility] Eosinophils/Leukocyt es Auto (Bld) [Pure # fraction] 0.1 E9/L Normal 0.0 - 0.5 E9/L [facility]Auto[facility] Lymphocytes/100 WBC (Bld) 25.0 % Normal 14.0 - 50.0 % [facility]Auto[facility] Lymphocytes/Leukocyt es Auto (Bld) [Pure # fraction] 0.7 E9/L Low 1.0 - 4.0 E9/L [facility]AutoSS Monocytes/100 WBC (Bld) 10.1 % Normal 4.0 - 14.0 % [facility]Auto[facility] Monocytes/Leukocytes Auto (Bld) [Pure # fraction] 0.3 E9/L Normal 0.2 - 1.0 E9/L [facility] Neutrophils/100 WBC (Bld) 60.2 % Normal 36.0 - 75.0 % [facility] Neutrophils/Leukocyt es Auto (Bld) [Pure # fraction] 1.6 E9/L Low 2.0 - 7.5 E9/L [facility]Auto[facility] HEMATOLOGYOrdered By: Dwayne Guzmán on 09-15-2023 Erythrocyte distribution width (RBC) [Ratio] 13.2 % Normal 10.9 - 14.2 % [facility] Hematocrit (Bld) [Volume fraction] 36.5 % Normal 34.0 - 46.0 % [facility]Auto[facility] Hemoglobin (Bld) [Mass/Vol] 12.3 g/dL Normal 12.0 - 16.0 gm/dL [facility] MCH (RBC) [Entitic mass] 31.3 pg Normal 27.0 - 34.0 pg [facility]Auto[facility] MCHC (RBC) [Mass/Vol] 33.7 g/dL Normal 31.4 - 36.0 gm/dL FT HemeAutoSS MCV (RBC) [Entitic vol] 92.8 fL Normal 80.0 - 100.0 fL [facility] HemeAutoSS Platelet mean volume (Bld) [Entitic vol] 8.5 fL Normal 6.4 - 10.8 fL [facility] HemeAutoSS Platelets (Bld) [#/Vol] 89.0 E9/L Low 150.0 - 500.0 E9/L [facility] Comment on above: Result Comment: Plat elet count verified using smear estimate RBC (Bld) [#/Vol] 3.9 E12/L Low 4.3 - 5.9 E12/L [facility] HemeAutoSS WBC corrected for nucl RBC Auto (Bld) [#/Vol] 2.6 E9/L Low 4.0 - 11.0 E9/L [facility] HemeAutoSS Ironon 09-15-2023 Iron [Mass/Vol] 73 microgram/dL Normal 35-[address] [facility] Comment on above: Performed By: #### 9 20437879, 1008404, 4941690490, 0526875, 6678848, 7760667, 5583013083, 8902786, 1509540368, 9810382, 1624491, 26096057, 5800693, 0855123, 5141327, 3079255, 6293559, 0172512 ####[facility] [address] [place] [address] Iron Saturationon 09-15-2023 Iron binding capacity [Mass/Vol] 401 microgram/dL High 250-400 [facility] Comment on above: Performed By: #### 9 12300443, 0019339, 4001995851, 6780929, 3356707, 7704261, 8485109929, 1116828, 4617666988, 9089771, 9048774, 00498766, 1975467, 6764950, 0767084, 5242117, 6926878, 3629633 ####[facility] [address] [place] [address] Iron saturation [Mass fraction] 18 % Low 20-50 [facility] Comment on above: Performed By: #### 9 91895800, 0078002, 1473365994, 6553747, 0907623, 4877188, 5387232765, 2751419, 2242216568, 8346384, 8934660, 57630137, 3620532, 7600835, 9116263, 2991765, 0062844, 7285953 ####[facility] [address] [place] [address] LDHon 09-15-2023 LDH [Catalytic activity/Vol] 181 Int._Unit/L Normal 93-218 [facility] Comment on above: Performed By: #### 9 62947881, 0172963, 3099874883, 9939230, 1538376, 4386450, 3376062784, 8393249, 3397119789, 2513375, 1626446, 13910180, 4442390, 8143551, 8366883, 3684215, 0777089, 6576594 ####[facility] [address] [place] [address] Transferrinon 09-15-2023 Transferrin [Mass/Vol] 286 mg/dL Normal 200-370 [facility] Comment on above: Performed By: #### 9 33018865, 2327890, 6929655684, 7198579, 6591503, 1890348, 4084452091, 8320478, 4435648855, 2009978, 4192578, 87793156, 6328119, 6376847, 2816139, 4762574, 3925084, 2021673 ####[facility] [address] [place] [address] Vit B12on 09-15-2023 Cobalamin (Vitamin B12) [Mass/Vol] 508 pg/mL Normal 50-1500 [facility] Comment on above: Performed By: #### 1 [id number] #### [facility] [address] [place] [address] eGFRon 09-15-2023 GFR/1.73 sq M.predicted among non-blacks MDRD (S/P/Bld) [Vol rate/Area] 54 mL/min/1.73 m2 Low >=59 [facility] Comment on above: Order Comment: Order added by Discern Expert. Result Comment: Polysomnography Tech annabella kidney disease could be indicated at eGFR's of less than 60 mL/min/1.73m2. Kidney failure is indicated at less than 15 mL/min/1.73m2. Performed By: #### 9 92364888, 3821540, 2896760575, 7072488, 6068888, 2136538, 4338998981, 7351846, 3239595136, 5727577, 4766756, 99853048, 8614699, 9436793, 2181030, 7266252, 7317509, 3565013 ####[facility] [address] [place] [address] Family Medicine Office/Clini c Noteon 09-01-2023 Family Medicine Office/Clinic Note Chief Complaint Subsequent Medicare Wellness Visit History of Present Illness Covid-19, MERS, Ebola Screen *Contact With Person With Highly Contagious Disease Like Ebola/MERS/COVID-19 AND Have One or More of the Symptoms Below : No *Travel to a Country With Wide-Spread Ebola/MERS/COVID-19 in the Past 21 Days AND Have One or More of the Symptoms Below : No Patient Reported Covid-19 Testing : No *Verify Droplet, Contact Precautions for Ebola (Reference for CDC) : N/A *Verify Airborne, Droplet Precautions for MERS/COVID-19 : N/A Aaron Willie R - 08/29/2023 11:00 EST Medicare/Medicaid Summary Patient Counseled : Nutrition, Physical activity, Elevated BMI Waist Measurement : 125 cm(Converted to: 49 in) Systolic Blood Pressure : 116 mmHg Diastolic Blood Pressure : 78 mmHg Blood Pressure Location : Left arm Blood Pressure Position : Sitting O2 Sat Resting/Exertion Alpha : Resting Peripheral Pulse Rate : 67 bpm SpO2 : 94 % Chief Complaint : Subsequent Medicare Wellness Visit Willie Walker R - 08/29/2023 11:29 EST Height/Length Measured : 152 cm(Converted to: 5 ft 0 in, 59.84 in) Weight Measured : 113.2 kg(Converted to: 249 lb 9 Ounces, 249.563 lb) Body Mass Index Measured : 49 kg/m2 Height in Inches : 60 in Weight in Pounds : 249.04 lb Pain Present : No actual or suspected pain Willie Walker Rod - 08/29/2023 11:00 EST Hearing and Vision Screening FT FT Whisper Test Comments : notes hearing loss, no hearing aids Vision Screen Comments : wears reading glasses, follows with Dr. Yazan atkins Kosta Walkerdayton Velasco - 08/29/2023 11:00 EST Advance Directive FT Advance Directive : No Patient Wishes to Receive Further Information on Advance Directives : Yes Organ Donation Consent : No Willie Walker Rod - 08/29/2023 11:00 EST Procedures / Surgeries FT - Procedure History (As Of: 08/29/2023 11:32:31 EST) Anesthesia Minutes: 0 ; Procedure Name: AWA BSO - Total abdominal hysterectomy and bilateral salpingo-oophorectomy ; Procedure Minutes: 0 ; Last Reviewed Dt/Tm: 08/29/2023 11:30:57 EST Anesthesia Minutes: 0 ; Procedure Name: Carpal tunnel release ; Procedure Minutes: 0 ; Last Reviewed Dt/Tm: 08/29/2023 11:30:57 EST Anesthesia Minutes: 0 ; Procedure Name: section ; Procedure Minutes: 0 ; Comments: 02/07/2023 14:23 EDT - Sonya MOISEN, Janice Shepherd X1 ; Last Reviewed Dt/Tm: 08/29/2023 11:30:57 EST Procedure Dt/Tm: 07/24/2023 ; Location: [facility] ; Provider: Deborah Rashid MD; Anesthesia Minutes: 0 ; Procedure Name: Colonoscopy ; Procedure Minutes: 0 ; Last Reviewed Dt/Tm: 08/29/2023 11:30:57 EST Procedure Dt/Tm: 06/24/2023 ; Anesthesia Minutes: 0 ; Procedure Name: Bone marrow biopsy ; Procedure Minutes: 0 ; Comments: 06/24/2023 13:56 EDT - Tiffanie RN, BSN, Larisa Velasco ct ; Last Reviewed Dt/Tm: 08/29/2023 11:30:57 EST Family History Family History (As Of: 08/29/2023 11:32:31 EST) Father: Relation: Father ; Gender: Male ; Nomenclature: Hypertension ; Value: Positive Nomenclature: Diabetes mellitus type 2 ; Value: Positive Nomenclature: Heart disease ; Value: Positive Mother: Relation: Mother ; Gender: Female ; Nomenclature: Metastatic cancer ; Value: Positive Nomenclature: Heart disease ; Value: Positive Medicare/Medicaid Social History FT Social History (As Of: 08/29/2023 11:32:31 EST) Alcohol: Household alcohol concerns: No. Comments: 08/29/2023 11:07 - Willie Walker: hayley 06/04/2023 13:03 - Ana Luisa De La Fuente I: densherrill (Last Updated: 08/29/2023 11:07:25 EST by Willie Walker) Tobacco: Never (less than 100 in lifetime) Tobacco Use:. Never Smokeless Tobacco Use:. Household tobacco concerns: No. Comments: 08/29/2023 11:07 - Willie Walker: hayley (Last Updated: 08/29/2023 11:07:39 EST by Willie Walker) Health Risk Assessment FT HRA little interest or pleasure? : No HRA down, depressed, or hopeless? : No Hazards in your house? : No Fall Risk Past Year : No Worried About Falling : No Use a Cane or Walker? : No Someone Helps You in the Morning : No Fallen or felt dizzy standing up? : No Assistance with personal care? : No Trouble taking meds correctly? : No HRA Pain Present : No Able to walk without help? : Yes Ability to shop w/out help : Yes Prepare your own meals? : Yes Housework without help? : Yes Handle money without help : Yes Track own medications without help? : Yes Overall mood for past four weeks : Pretty well General health rating : Very Good Someone avail. to help if needed? : Yes, as much as I wanted Phys. & emotional health limit social act? : Not at all Willie Walker - 08/29/2023 11:29 EST Misc Health Risks Grid Sexual problems : Never Trouble eating well : Never Teeth or denture problems : Never Problems using the telephone : Never Willie Walker - 08/29/2023 11:29 EST Confident you control health problems : Very confident Difficulties driving your car? : No (more content not included)... Normal [facility] Comment on above: Result Comment: Elec tronically Signed By: Denis PATTEN, Willian Beasley.br\Date and Time Signed: 09/01/23 12:57 EST\.br\Electronically Co-Signed By: Willie Walker\Date and Time Co-Signed: 08/29/23 12:10 EST Outside Diabetes Eye Examon 09-01-2023 Outside Diabetes Eye Exam [id number]. [id number] Normal [facility] Ambulatory Visit Summaryon 1 10-29-2022 Ambulatory Visit Summary MISA SANTOS :1955 Visit Date:08/29/2023 Ambulatory Visit Instructions Your Diagnosis Annual visit for general adult medical examination without abnormal findings Ovarian failure Screening mammogram for breast cancer Hypertension Stage 3a chronic kidney disease (CKD) Type 2 diabetes mellitus with stage 3a chronic kidney disease and hypertension Hypothyroid Restrictive lung disease Tests Performed BD Bone Density DEXA -- Results Pending -- MA Mamm Screen w/CAD if perf and 3D Michael -- Results Pending -- Please visit your patient portal for your results or contact your primary care physician. Your Care Team Attending Physician - Willian Barrios MD Primary Care Physician - Willian Barrios MD. This Is Your Medications List Misc Prescription (Lancets) Misc Prescription (Misc DME Prescription) albuterol (Albuterol (Eqv-ProAir HFA) 90 mcg/inh inhalation aerosol) aspirin (aspirin 81 mg oral capsule) atorvastatin (Lipitor 40 mg Tab) glipiZIDE (glipiZIDE 5 mg Tab) hydrochlorothiazide-l osartan (hydrochlorothiazide- losartan 25 mg-100 mg Tab) levothyroxine (levothyroxine 75 mcg (0.075 mg) Tab) metoprolol (Metoprolol tartrate 25 mg Tab) Procedures Performed Colonoscopy (07/24/2023), Bone marrow biopsy (06/24/2023), Carpal tunnel release, section, AWA BSO - Total abdominal hysterectomy and bilateral salpingo-oophorectomy . Discharge Vitals Heart Rate (Peripheral) 67 Blood Pressure 116/78 Height 152 cm Height 60 in Weight 113.2 kg Weight 249.04 lb BMI 49 What to do next Scheduled Follow-Up Appointments Friday 2:20 PM EST With: Willian Barrios MD Where: [facility] Invalid Interpretation Code [address] [place] [address]- \.br\ Friday 12:40 PM EST \.br\ With: Ashlie Mead CNP\.br\ Where: [facility] Ambulatory Visit Summary MISA SANTOS :1955 Visit Date:08/29/2023 Ambulatory Visit Instructions Your Care Team Attending Physician - Willian Barrios MD Primary Care Physician - Willian Barrios MD This Is Your Medications List Misc Prescription (Lancets) Misc Prescription (Misc DME Prescription) albuterol (Albuterol (Eqv-ProAir HFA) 90 mcg/inh inhalation aerosol) aspirin (aspirin 81 mg oral capsule) atorvastatin (Lipitor 40 mg Tab) glipiZIDE (glipiZIDE 5 mg Tab) hydrochlorothiazide-l osartan (hydrochlorothiazide- losartan 25 mg-100 mg Tab) levothyroxine (levothyroxine 75 mcg (0.075 mg) Tab) metoprolol (Metoprolol tartrate 25 mg Tab) Procedures Performed Colonoscopy (07/24/2023), Bone marrow biopsy (06/24/2023), Carpal tunnel release, section, AWA BSO - Total abdominal hysterectomy and bilateral salpingo-oophorectomy . What to do next Scheduled Follow-Up Appointments Friday 2:20 PM EST With: Willian Barrios MD Where: [facility] Invalid Interpretation Code [address] [place] [address]- \.br\ Friday 12:40 PM EST \.br\ With: Ashlie Mead CNP A\.br\ Where: [facility] Patient Educationon 08-29-20 23 Patient Education Cardiovascular Hypertension, Adult High blood pressure (hypertension) is when the force of blood pumping through the arteries is too strong. The arteries are the blood vessels that carry blood from the heart throughout the body. Hypertension forces the heart to work harder to pump blood and may cause arteries to become narrow or stiff. Untreated or uncontrolled hypertension can lead to a heart attack, heart failure, a stroke, kidney disease, and other problems. A blood pressure reading consists of a higher number over a lower number. Ideally, your blood pressure should be below 120/80. The first ( top ) number is called the systolic pressure. It is a measure of the pressure in your arteries as your heart beats. The second ( bottom ) number is called the diastolic pressure. It is a measure of the pressure in your arteries as the heart relaxes. What are the causes? The exact cause of this condition is not known. There are some conditions that result in high blood pressure. What increases the risk? Certain factors may make you more likely to develop high blood pressure. Some of these risk factors are under your control, including: ? Smoking. ? Not getting enough exercise or physical activity. ? Being overweight. ? Having too much fat, sugar, calories, or salt (sodium) in your diet. ? Drinking too much alcohol. Other risk factors include: ? Having a personal history of heart disease, diabetes, high cholesterol, or kidney disease. ? Stress. ? Having a family history of high blood pressure and high cholesterol. ? Having obstructive sleep apnea. ? Age. The risk increases with age. What are the signs or symptoms? High blood pressure may not cause symptoms. Very high blood pressure (hypertensive crisis) may cause: ? Headache. ? Fast or irregular heartbeats (palpitations). ? Shortness of breath. ? Nosebleed. ? Nausea and vomiting. ? Vision changes. ? Severe chest pain, dizziness, and seizures. How is this diagnosed? This condition is diagnosed by measuring your blood pressure while you are seated, with your arm resting on a flat surface, your legs uncrossed, and your feet flat on the floor. The cuff of the blood pressure monitor will be placed directly against the skin of your upper arm at the level of your heart. Blood pressure should be measured at least twice using the same arm. Certain conditions can cause a difference in blood pressure between your right and left arms. If you have a high blood pressure reading during one visit or you have normal blood pressure with other risk factors, you may be asked to: ? Return on a different day to have your blood pressure checked again. ? Monitor your blood pressure at home for 1 week or longer. If you are diagnosed with hypertension, you may have other blood or imaging tests to help your health care provider understand your overall risk for other conditions. How is this treated? This condition is treated by making healthy lifestyle changes, such as eating healthy foods, exercising more, and reducing your alcohol intake. You may be referred for counseling on a healthy diet and physical activity. Your health care provider may prescribe medicine if lifestyle changes are not enough to get your blood pressure under control and if: ? Your systolic blood pressure is above 130. ? Your diastolic blood pressure is above 80. Your personal target blood pressure may vary depending on your medical conditions, your age, and other factors. Follow these instructions at home: Eating and drinking ? Eat a diet that is high in fiber and potassium, and low in sodium, added sugar, and fat. An example of this eating plan is called the DASH diet. DASH stands for Dietary Approaches to Stop Hypertension. To eat this way: ? Eat plenty of fresh fruits and vegetables. Try to fill one half of your plate at each meal with fruits and vegetables. ? Eat whole grains, such as whole-wheat pasta, brown rice, or whole-grain bread. Fill about one fourth of your plate with whole grains. ? Eat or drink low-fat dairy products, such as skim milk or low-fat yogurt. ? Avoid fatty cuts of meat, processed or cured meats, and poultry with skin. Fill about one fourth of your plate with lean proteins, such as fish, chicken without skin, beans, eggs, or tofu. ? Avoid pre-made and processed foods. These tend to be higher in sodium, added sugar, and fat. ? Reduce your daily sodium intake. Many people with hypertension should eat less than 1,500 mg of sodium a day. ? Do not drink alcohol if: ? Your health care provider tells you not to drink. ? You are , may be , or are planning to become . ? If you drink alcohol: ? Limit how much you have to: ? 0?1 drink a day for women. ? 0?2 drinks a day for men. ? Know how much alcohol is in your drink. In the [place] one drink equals one 12 oz bottle of beer (355 mL), one 5 oz glass of wine (148 mL), or one 1? oz glass (more content not included)... Normal [facility] [place]enson 08-29-2023 Screens [id number]. [id number] Normal [facility] Population Healthon 08-21-20 Population Health Case Information Case Priority: None Programs: -- Referral Source: Line Operator Referral Reason: Care coordination Case Type: Transition Care Management Risk Score: -- Case Status: Enrolled (July 29, 2023) Date Assigned: July 28, 2023 Assigned By: Tatiana Mensah RN Date Enrolled: July 29, 2023 Assigned Primary Personnel: Willie Walker Assigned Secondary Personnel: -- Case Physician: Willian Barrios MD Ongoing Allergic rhinitis Anal fissure Anemia Breast cancer screening Colon cancer screening GI bleed History of colon polyps Hospital discharge follow-up Hypertension Hypokalemia Hypothyroid Lymphopenia Pericapsulitis of shoulder Polyp of colon Positive colorectal cancer screening using Cologuard test Restrictive lung disease Rotator cuff tendonitis Stage 3a chronic kidney disease (CKD) Thrombocytopenia Total bilirubin, elevated Tremor, essential Type 2 diabetes mellitus with stage 3a chronic kidney disease and hypertension Historical No qualifying data Procedure/Surgical History Colonoscopy (07/24/2023), Bone marrow biopsy (06/24/2023), Carpal tunnel release, section, AWA BSO - Total abdominal hysterectomy and bilateral salpingo-oophorectomy . Home Medications Albuterol (Eqv-ProAir HFA) 90 mcg/inh inhalation aerosol, 2 puff(s), Inhalation, q6hr aspirin 81 mg oral capsule, 81 mg= 1 cap(s), Oral, Daily glipiZIDE 5 mg Tab, 5 mg= 1 tab(s), Oral, Daily, 3 refills hydrochlorothiazide-l osartan 25 mg-100 mg Tab, 1 tab(s), Oral, Daily, 1 refills Lancets, See Instructions, 1 refills levothyroxine 75 mcg (0.075 mg) Tab, 75 mcg= 1 tab(s), Oral, Daily, 3 refills Lipitor 40 mg Tab, 40 mg= 1 tab(s), Oral, Daily Metoprolol tartrate 25 mg Tab, 25 mg= 1 tab(s), Oral, BID Misc DME Prescription, See Instructions, 1 refills Allergies metFORMIN (Nausea, Dizziness, Unknown) sulfa drugs (Hives, Unknown) Social History Alcohol Tobacco Never (less than 100 in lifetime) Tobacco Use:. Never Smokeless Tobacco Use:. Household tobacco concerns: No., 07/31/2023 Family History Diabetes mellitus type 2: Father. Heart disease: Mother and Father. Hypertension: Father. Metastatic cancer: Mother. Screenings and Assessments 07/29/23 14:30:00 Result Name Value Comment Phone Call Monitoring Consent Agreed to continue call Phone Verification Patient Information Full name, street address and date of verified CM Program Enrollment Provides verbal consent for enrollment 05/14/23 22:30:00 Result Name Value Comment Cologuard, External Positive Goals and Interventions Care Plan Progress Note TCM#4- Spoke with patient for final tcm follow up call. States she is doing well. Notes her BS have been more stable averaging 200 as a high. States she continues to work on improving diet. Denies any issues or concerns with urinary system or bowels. Patient does need her lancets refilled (previous message sent to PCP, will follow up.) Patient denies any further questions or concerns. Communication Events Date: August 21, 2023 Method: Phone call Type: Outbound Duration (min): 4 Outcome: Case discussion Contact Type: patient safety coordinator Contact Name: Willie Walker Notes: NESTOR#4- Spoke with patient for final TCM program call status update. See ft summary note. Created By: Willie Walker Date: August 14, 2023 Method: Phone call Type: Outbound Duration (min): 7 Outcome: Case discussion Contact Type: patient safety coordinator Contact Name: Willie Walker Notes: NESTOR#3- Spoke with patient for tcm program call status update, see ft summary note. Created By: Willie Walker Date: August 07, 2023 Method: Phone call Type: Outbound Duration (min): 2 Outcome: Case discussion Contact Type: patient safety coordinator Contact Name: Willie Walker Notes: NESTOR#2-spoke with patient for TCM program call status update, see ft summary note. Created By: Willie Walker Date: July 29, 2023 Method: Phone call Type: Inbound Duration (min): 5 Outcome: Case discussion Contact Type: Patient Contact Name: MISA SANTOS Notes: TCM#1- Patient returned call for initial TCM program call status update. See Case summary note. Created By: Willie Walker Date: July 29, 2023 Method: Phone call Type: Outbound Duration (min): 1 Outcome: Left message-voicemail Contact Type: patient safety coordinator Contact Name: Willie Walker Notes: TCM#1- attempted to reach pt for initial TCM program call status update, no answer, left VM for return call. OV 07/30, no unable to contact letter sent at this time. Created By: Willie Walker Date: July 28, 2023 Method: Phone call Type: Outbound Duration (min): 1 Outcome: Left message-voicemail Contact Type: patient safety coordinator Contact Name: Tatiana Mensah RN Notes: Attempted to call patient for initial TCM call, no answer. Left message for patient to [facility] (more content not included)... Normal [facility] 08-14-20 [facility] Case Information Case Priority: None Programs: -- Referral Source: Line Operator Referral Reason: Care coordination Case Type: Transition Care Management Risk Score: -- Case Status: Enrolled (July 29, 2023) Date Assigned: July 28, 2023 Assigned By: Tatiana Mensah RN Date Enrolled: July 29, 2023 Assigned Primary Personnel: Willie Walker Assigned Secondary Personnel: -- Case Physician: Willian Barrios MD Ongoing Allergic rhinitis Anal fissure Anemia Breast cancer screening Colon cancer screening GI bleed History of colon polyps Hospital discharge follow-up Hypertension Hypokalemia Hypothyroid Lymphopenia Pericapsulitis of shoulder Polyp of colon Positive colorectal cancer screening using Cologuard test Restrictive lung disease Rotator cuff tendonitis Stage 3a chronic kidney disease (CKD) Thrombocytopenia Total bilirubin, elevated Tremor, essential Type 2 diabetes mellitus with stage 3a chronic kidney disease and hypertension Historical No qualifying data Procedure/Surgical History Colonoscopy (07/24/2023), Bone marrow biopsy (06/24/2023), Carpal tunnel release, section, AWA BSO - Total abdominal hysterectomy and bilateral salpingo-oophorectomy . Home Medications Albuterol (Eqv-ProAir HFA) 90 mcg/inh inhalation aerosol, 2 puff(s), Inhalation, q6hr aspirin 81 mg oral capsule, 81 mg= 1 cap(s), Oral, Daily glipiZIDE 5 mg Tab, 5 mg= 1 tab(s), Oral, Daily, 3 refills hydrochlorothiazide-l osartan 25 mg-100 mg Tab, 1 tab(s), Oral, Daily, 1 refills Lancets, See Instructions, 1 refills levothyroxine 75 mcg (0.075 mg) Tab, 75 mcg= 1 tab(s), Oral, Daily, 3 refills Lipitor 40 mg Tab, 40 mg= 1 tab(s), Oral, Daily Metoprolol tartrate 25 mg Tab, 25 mg= 1 tab(s), Oral, BID Misc DME Prescription, See Instructions, 1 refills Allergies metFORMIN (Nausea, Dizziness, Unknown) sulfa drugs (Hives, Unknown) Social History Alcohol Tobacco Never (less than 100 in lifetime) Tobacco Use:. Never Smokeless Tobacco Use:. Household tobacco concerns: No., 07/31/2023 Family History Diabetes mellitus type 2: Father. Heart disease: Mother and Father. Hypertension: Father. Metastatic cancer: Mother. Screenings and Assessments 07/29/23 14:30:00 Result Name Value Comment Phone Call Monitoring Consent Agreed to continue call Phone Verification Patient Information Full name, street address and date of verified CM Program Enrollment Provides verbal consent for enrollment 05/14/23 22:30:00 Result Name Value Comment ogke, [place] Positive Goals and Interventions Care Plan Progress Note TCM#3- Patient states she is doing fine. Notes BS have been up and down. Ranging from 90-300. Patient notes she has been falling into some bad habits with the holidays here, notes she likes chips and sweats. Dietary education reviewed. Patient states she will continue to work on improving diet. Notes she is down to 1 soda daily, from about 3 or 4 previously. Patient denies any further episodes of CP or increased HR. Patient BP's are WNL. Patient denies any bowel or urinary systems issues. Denies change in sleeping pattern. Denies any further questions or concerns. Communication Events Date: August 14, 2023 Method: Phone call Type: Outbound Duration (min): 7 Outcome: Case discussion Contact Type: patient safety coordinator Contact Name: Willie Walker Notes: TCM#3- Spoke with patient for tcm program call status update, see ft summary note. Created By: Willie Walker Date: August 07, 2023 Method: Phone call Type: Outbound Duration (min): 2 Outcome: Case discussion Contact Type: patient safety coordinator Contact Name: Willie Walker Notes: TCM#2-spoke with patient for TCM program call status update, see ft summary note. Created By: Willie Walker Date: July 29, 2023 Method: Phone call Type: Inbound Duration (min): 5 Outcome: Case discussion Contact Type: Patient Contact Name: TOM MISA MARMOLEJO Notes: TCM#1- Patient returned call for initial TCM program call status update. See Case summary note. Created By: Willie Walker Date: July 29, 2023 Method: Phone call Type: Outbound Duration (min): 1 Outcome: Left message-voicemail Contact Type: patient safety coordinator Contact Name: Willie Walker Notes: TCM#1- attempted to reach pt for initial TCM program call status update, no answer, left VM for return call. OV 07/30, no unable to contact letter sent at this time. Created By: Willie Walker Date: July 28, 2023 Method: Phone call Type: Outbound Duration (min): 1 Outcome: Left message-voicemail Contact Type: patient safety coordinator Contact Name: Tatiana Mensah RN Notes: Attempted to call patient for initial TCM call, no answer. Left message for patient to call with status update. Created By: Tatiana Mensah RN Date: July 28, 2023 Method: Phone call Type: Outbound (more content not included)... Normal [facility] 08-07-20 [facility] Case Information Case Priority: None Programs: -- Referral Source: Line Operator Referral Reason: Care coordination Case Type: Transition Care Management Risk Score: -- Case Status: Enrolled (July 29, 2023) Date Assigned: July 28, 2023 Assigned By: Tatiana Mensah RN Date Enrolled: July 29, 2023 Assigned Primary Personnel: Willie Walker Assigned Secondary Personnel: -- Case Physician: Willian Barrios MD Ongoing Allergic rhinitis Anal fissure Anemia Breast cancer screening Colon cancer screening GI bleed History of colon polyps Hospital discharge follow-up Hypertension Hypokalemia Hypothyroid Lymphopenia Pericapsulitis of shoulder Polyp of colon Positive colorectal cancer screening using Cologuard test Restrictive lung disease Rotator cuff tendonitis Stage 3a chronic kidney disease (CKD) Thrombocytopenia Total bilirubin, elevated Tremor, essential Type 2 diabetes mellitus with stage 3a chronic kidney disease and hypertension Historical No qualifying data Procedure/Surgical History Colonoscopy (07/24/2023), Bone marrow biopsy (06/24/2023), Carpal tunnel release, section, AWA BSO - Total abdominal hysterectomy and bilateral salpingo-oophorectomy . Home Medications Albuterol (Eqv-ProAir HFA) 90 mcg/inh inhalation aerosol, 2 puff(s), Inhalation, q6hr aspirin 81 mg oral capsule, 81 mg= 1 cap(s), Oral, Daily glipiZIDE 5 mg Tab, 5 mg= 1 tab(s), Oral, Daily, 3 refills hydrochlorothiazide-l osartan 25 mg-100 mg Tab, 1 tab(s), Oral, Daily, 1 refills levothyroxine 75 mcg (0.075 mg) Tab, 75 mcg= 1 tab(s), Oral, Daily, 3 refills Lipitor 40 mg Tab, 40 mg= 1 tab(s), Oral, Daily Metoprolol tartrate 25 mg Tab, 25 mg= 1 tab(s), Oral, BID Misc DME Prescription, See Instructions, 1 refills Allergies metFORMIN (Nausea, Dizziness, Unknown) sulfa drugs (Hives, Unknown) Social History Alcohol Tobacco Never (less than 100 in lifetime) Tobacco Use:. Never Smokeless Tobacco Use:. Household tobacco concerns: No., 07/31/2023 Family History Diabetes mellitus type 2: Father. Heart disease: Mother and Father. Hypertension: Father. Metastatic cancer: Mother. Screenings and Assessments 07/29/23 14:30:00 Result Name Value Comment Phone Call Monitoring Consent Agreed to continue call Phone Verification Patient Information Full name, street address and date of verified CM Program Enrollment Provides verbal consent for enrollment 05/14/23 22:30:00 Result Name Value Comment [place] Positive Goals and Interventions Care Plan Progress Note TCM#2- Patient states she is doing really good. She is eating and drinking okay. No issues or concerns with sleep pattern. States her last BM was 08/06. Denies urinary system issues/concerns. Patient denies need for refills at this time. Patient denies any further needs or concerns at this time. Communication Events Date: August 07, 2023 Method: Phone call Type: Outbound Duration (min): 2 Outcome: Case discussion Contact Type: patient safety coordinator Contact Name: Willie Walker Notes: TCM#2-spoke with patient for TCM program call status update, see ft summary note. Created By: Willie Walker Date: July 29, 2023 Method: Phone call Type: Inbound Duration (min): 5 Outcome: Case discussion Contact Type: Patient Contact Name: MISA SANTOS Notes: TCM#1- Patient returned call for initial TCM program call status update. See Case summary note. Created By: Willie Walker Date: July 29, 2023 Method: Phone call Type: Outbound Duration (min): 1 Outcome: Left message-voicemail Contact Type: patient safety coordinator Contact Name: Willie Walker Notes: TCM#1- attempted to reach pt for initial TCM program call status update, no answer, left VM for return call. OV 07/30, no unable to contact letter sent at this time. Created By: Willie Walker Date: July 28, 2023 Method: Phone call Type: Outbound Duration (min): 1 Outcome: Left message-voicemail Contact Type: patient safety coordinator Contact Name: Tatiana Mensah RN Notes: Attempted to call patient for initial TCM call, no answer. Left message for patient to call with status update. Created By: Tatiana Mensah RN Date: July 28, 2023 Method: Phone call Type: Outbound Duration (min): 1 Outcome: Left message-voicemail Contact Type: patient safety coordinator Contact Name: Tatiana Mensah RN Notes: Attempted to call patient for initial call in the TCM program, no answer. Left message for patient to call with status update. Created By: Tatiana Mensah RN [facility] Reminderson 08-06-2023 Reminders - From: Regina Hollingsworth To: [facility] - Reminders/Recalls; Sent: 08/06/2023 14:09:58 EDT Show up: 12/12/2023 14:09:00 EST Subject: Ambulatory Reminder Due Date/Time: 01/12/2024 14:09:00 EDT Reminder/Recall Addendum by Regina Hollingsworth on August 06, 2023 14:08:57 EDT 6 month colon recall 02/03 From: Ashlie Mead CNP To: Regina Hollingsworth; Sent: 07/31/2023 10:00:12 EDT Show up: 07/31/2023 10:01:00 EDT Subject: Ambulatory Reminder Reminder/Recall Colonoscopy 01/2024. [facility] Reminders - From: Ashlie Mead CNP To: Regina Hollingsworth; Sent: 07/31/2023 10:00:12 EDT Show up: 07/31/2023 10:01:00 EDT Subject: Ambulatory Reminder Reminder/Recall Colonoscopy 01/2024. 6 month colon recall 02/[address] [facility] Immunization Recordson 08-04 Immunization Records [id number] .[id number] [facility] Ambulatory Visit Summaryon 1 Ambulatory Visit Summary MISA SANTOS :1955 Visit Date:07/31/2023 Ambulatory Visit Instructions Your Diagnosis History of colon polyps Anemia Your Care Team Attending Physician - Ashlie Mead CNP Primary Care Physician - Willian Barrios MD This Is Your Medications List Contact prescribing physician if questions or concerns Misc Prescription (Misc DME Prescription) albuterol (Albuterol (Eqv-ProAir HFA) 90 mcg/inh inhalation aerosol) aspirin (aspirin 81 mg oral capsule) atorvastatin (Lipitor 40 mg Tab) glipiZIDE (glipiZIDE 5 mg Tab) hydrochlorothiazide-l osartan (hydrochlorothiazide- losartan 25 mg-100 mg Tab) levothyroxine (levothyroxine 75 mcg (0.075 mg) Tab) metoprolol (Metoprolol tartrate 25 mg Tab) Procedures Performed Colonoscopy (07/24/2023), Bone marrow biopsy (06/24/2023), Carpal tunnel release, section, AWA BSO - Total abdominal hysterectomy and bilateral salpingo-oophorectomy . Discharge Vitals Temperature (Temporal Artery) 36 ?C Heart Rate (Peripheral) 59 Blood Pressure 123/67 Height 150.8 cm Height 59 in Weight 112.7 kg Weight 247.94 lb BMI 49.56 What to do next Scheduled Follow-Up Appointments Friday 11:00 AM EST With: Where: [facility] Invalid Interpretation Code [address] [place] [address]- \.br\ Friday 10:00 AM EST \.br\ With:\.br\ Where: [facility]\.br\ Friday 11:20 AM EST \.br\ With: Denis PATTEN, Willian Weiner\.br\ Where: [facility] Gastroenterology Office/Clin ic Noteon 07-31-2023 Gastroenterology Office/Clinic Note Chief Complaint Colonoscopy results. HPI Staff This is a 68 year old female who presents today for a follow up to Colonoscopy. History of Present Illness Patient is a 68-year-old female who presents for follow-up from colonoscopy completed 07/24/[address] Rashid. Patient was previously evaluated by Dr. Rashid 06/04/2023 for colonoscopy and positive Cologuard. Colonoscopy completed 07/24/2023 revealed 1 cm semipedunculated polyp removed from ascending colon that pathology revealed was tubulovillous adenoma, large at least 4 cm pedunculated polyp removed from sigmoid that pathology revealed was tubulovillous adenoma. Operative note indicated patient had experienced blood loss during procedure and was admitted to hospital for monitoring. Patient to have repeat colonoscopy in 6 months-01/2024. Patient had labs 07/25/23 that revealed low H/H of 10.9/31.8. Hgb. 05/27/23 was low at 11.2. Family history of colon cancer: Denies. Family history of colon polyps: Denies. Anticoagulation therapy: Denies. Antiplatelet therapy: Denies. During today's visit, patient reports she is doing well. Is having 1-2 formed BMs daily. She reports she is following with hematology regarding anemia. Patient reports she has been having anemia for the last 3-4 months. Denies black/bloody stools, nausea/vomiting, fevers/chills, and denies unintentional weight loss. Review of Systems ROS - Provider Constitutional: no fever, no chills. Skin: no Jaundice. ENMT: Denies dysphagia and heartburn. Respiratory: no shortness of breath. Cardiovascular: no chest pain. Gastrointestinal: no nausea, no vomiting, no diarrhea, no GI bleeding. Physical Exam Vitals & Measurements T: 36 ?C(Temporal Artery) HR: 59(Peripheral) BP: 123/67 HT: 59 in HT: 150.8 cm WT: 112.7 kg WT: 247.94 lb BMI: 49.56 General: Well developed, well nourished, in no acute distress Head: Normocephalic/atrauma tic Lungs: Normal respiratory effort and clear to auscultation Cardio: Regular rate and rhythm, normal S1 and S2, no murmur, no rub Abdomen: Soft, non-distended, non-tender. Normoactive bowel sounds present in all 4 abdominal quadrants, bilaterally. Mental Status: Alert and oriented x3. Normal mood and affect Assessment/Plan 1. History of colon polyps (Z86.010: Personal history of colonic polyps) Colonoscopy completed 07/24/2023 revealed 1 cm semipedunculated polyp removed from ascending colon that pathology revealed was tubulovillous adenoma, large at least 4 cm pedunculated polyp removed from sigmoid that pathology revealed was tubulovillous adenoma. Operative note indicated patient had experienced blood loss during procedure and was admitted to hospital for monitoring. Patient to have repeat colonoscopy in 6 months-01/2024. 2. Anemia (D64.9: Anemia, unspecified) Labs 07/25/23 that revealed low H/H of 10.9/31.8. Hgb. 05/27/23 was low at 11.2. Colonoscopy completed 07/24/2023 revealed 1 cm semipedunculated polyp removed from ascending colon that pathology revealed was tubulovillous adenoma, large at least 4 cm pedunculated polyp removed from sigmoid that pathology revealed was tubulovillous adenoma. Operative note indicated patient had experienced blood loss during procedure and was admitted to hospital for monitoring. Patient to have repeat colonoscopy in 6 months-01/2024. Ordered repeat CBC. Ordered: CBC w/ Auto Diff Follow-up With When Contact Information Ashlie Mead CNP Within 1 month Additional Instructions: Patient Education Anemia Problem List/Past Medical History Ongoing Allergic rhinitis Anal fissure Anemia Breast cancer screening Colon cancer screening GI bleed History of colon polyps Hospital discharge follow-up Hypertension Hypokalemia Hypothyroid Lymphopenia Pericapsulitis of shoulder Polyp of colon Positive colorectal cancer screening using Cologuard test Restrictive lung disease Rotator cuff tendonitis Stage 3a chronic kidney disease (CKD) Thrombocytopenia Total bilirubin, elevated Tremor, essential Type 2 diabetes mellitus with stage 3a chronic kidney disease and hypertension Historical No qualifying data Procedure/Surgical History Colonoscopy (07/24/2023), Bone marrow biopsy (06/24/2023), Carpal tunnel release, section, AWA BSO - Total abdominal hysterectomy and bilateral salpingo-oophorectomy . Medications Albuterol (Eqv-ProAir HFA) 90 mcg/inh inhalation aerosol, 2 puff(s), Inhalation, q6hr aspirin 81 mg oral capsule, 81 mg= 1 cap(s), Oral, Daily glipiZIDE 5 mg Tab, 5 mg= 1 tab(s), Oral, Daily, 3 refills hydrochlorothiazide-l osartan 25 mg-100 mg Tab, 1 tab(s), Oral, Daily, 1 refills levothyroxine 75 mcg (0.075 mg) Tab, 75 mcg= 1 tab(s), Oral, Daily, 3 refills Lipitor 40 mg Tab, 40 mg= 1 tab(s), Oral, Daily Metoprolol tartrate 25 mg Tab, 25 mg= 1 tab(s), Oral, BID Misc DME Prescription, See Instructions, 1 refills Allergies metFORMIN (Nausea, Dizziness, Unknown) sulfa drugs (H (more content not included)... Normal [facility] Comment on above: Result Comment: Elec tronically Signed By: Ashlie Mead CNP\.br\Date and Time Signed: 07/31/23 10:07 EDT Patient Educationon 07-31-20 Patient Education Hematology Anemia Anemia is a condition in which there is not enough red blood cells or hemoglobin in the blood. Hemoglobin is a substance in red blood cells that carries oxygen. When you do not have enough red blood cells or hemoglobin (are anemic), your body cannot get enough oxygen and your organs may not work properly. As a result, you may feel very tired or have other problems. What are the causes? Common causes of anemia include: ? Excessive bleeding. Anemia can be caused by excessive bleeding inside or outside the body, including bleeding from the intestines or from heavy menstrual periods in females. ? Poor nutrition. ? Long-lasting (chronic) kidney, thyroid, and liver disease. ? Bone marrow disorders, spleen problems, and blood disorders. ? Cancer and treatments for cancer. ? HIV (human immunodeficiency virus) and AIDS (acquired immunodeficiency syndrome). ? Infections, medicines, and autoimmune disorders that destroy red blood cells. What are the signs or symptoms? Symptoms of this condition include: ? Minor weakness. ? Dizziness. ? Headache, or difficulties concentrating and sleeping. ? Heartbeats that feel irregular or faster than normal (palpitations). ? Shortness of breath, especially with exercise. ? Pale skin, lips, and nails, or cold hands and feet. ? Indigestion and nausea. Symptoms may occur suddenly or develop slowly. If your anemia is mild, you may not have symptoms. How is this diagnosed? This condition is diagnosed based on blood tests, your medical history, and a physical exam. In some cases, a test may be needed in which cells are removed from the soft tissue inside of a bone and looked at under a microscope (bone marrow biopsy). Your health care provider may also check your stool (feces) for blood and may do additional testing to look for the cause of your bleeding. Other tests may include: ? Imaging tests, such as a CT scan or MRI. ? A procedure to see inside your esophagus and stomach (endoscopy). ? A procedure to see inside your colon and rectum (colonoscopy). How is this treated? Treatment for this condition depends on the cause. If you continue to lose a lot of blood, you may need to be treated at a hospital. Treatment may include: ? Taking supplements of iron, vitamin B12, or folic acid. ? Taking a hormone medicine (erythropoietin) that can help to stimulate red blood cell growth. ? Having a blood transfusion. This may be needed if you lose a lot of blood. ? Making changes to your diet. ? Having surgery to remove your spleen. Follow these instructions at home: ? Take unln-wdh-rvbusqt and prescription medicines only as told by your health care provider. ? Take supplements only as told by your health care provider. ? Follow any diet instructions that you were given by your health care provider. ? Keep all follow-up visits as told by your health care provider. This is important. Contact a health care provider if: ? You develop new bleeding anywhere in the body. Get help right away if: ? You are very weak. ? You are short of breath. ? You have pain in your abdomen or chest. ? You are dizzy or feel faint. ? You have trouble concentrating. ? You have bloody stools, black stools, or tarry stools. ? You vomit repeatedly or you vomit up blood. These symptoms may represent a serious problem that is an emergency. Do not wait to see if the symptoms will go away. Get medical help right away. Call your local emergency services (911 in the [place] Do not drive yourself to the hospital. Summary ? Anemia is a condition in which you do not have enough red blood cells or enough of a substance in your red blood cells that carries oxygen (hemoglobin). ? Symptoms may occur suddenly or develop slowly. ? If your anemia is mild, you may not have symptoms. ? This condition is diagnosed with blood tests, a medical history, and a physical exam. Other tests may be needed. ? Treatment for this condition depends on the cause of the anemia. This information is not intended to replace advice given to you by your health care provider. Make sure you discuss any questions you have with your health care provider. Document Revised: 08/13/2022 Document Reviewed: 09/05/2020 [employer] Patient Education ? 2022 [employer]. [facility] Ambulatory Visit Summaryon 1 Ambulatory Visit Summary MISA SANTOS :1955 Visit Date:07/30/2023 Ambulatory Visit Instructions Your Diagnosis Hospital discharge follow-up GI bleed Type 2 diabetes mellitus with stage 3a chronic kidney disease and hypertension Stage 3a chronic kidney disease (CKD) Polyp of colon, unspecified part of colon, unspecified type Hypertensive chronic kidney disease with stage 1 through stage 4 chronic kidney disease, or unspecified chronic kidney disease Your Care Team Attending Physician - Willian Barrios MD. Primary Care Physician - Willian Barrios MD. This Is Your Medications List Misc Prescription (Misc DME Prescription) Contact prescribing physician if questions or concerns albuterol (Albuterol (Eqv-ProAir HFA) 90 mcg/inh inhalation aerosol) aspirin (aspirin 81 mg oral capsule) atorvastatin (Lipitor 40 mg Tab) glipiZIDE (glipiZIDE 5 mg Tab) hydrochlorothiazide-l osartan (hydrochlorothiazide- losartan 25 mg-100 mg Tab) levothyroxine (levothyroxine 75 mcg (0.075 mg) Tab) metoprolol (Metoprolol tartrate 25 mg Tab) Procedures Performed Colonoscopy (07/24/2023), Bone marrow biopsy (06/24/2023), Carpal tunnel release, section, AWA BSO - Total abdominal hysterectomy and bilateral salpingo-oophorectomy . Discharge Vitals Temperature (Oral) 36.4 ?C Heart Rate (Peripheral) 90 Respiratory Rate 20 Blood Pressure 132/74 Height 150.8 cm Height 59 in Weight 111.9 kg Weight 246.18 lb BMI 49.21 What to do next Scheduled Follow-Up Appointments 2022 10:00 AM EDT With: [place] GORDON, Ashlie Kessler Where: [facility] Invalid Interpretation Code [address] [place] [address]- \.br\ Friday 2:20 PM EST \.br\ With: Willian Barrios MD\.br\ Where: [facility] Family Medicine Office/Clini c Noteon 07-30-2023 Family Medicine Office/Clinic Note HPI Staff Misa is a 68 year old female presenting for hospital follow up Recent colonoscopy ( + cologard in may) Hospital: [facility] Admission date: 05/24/23 Discharge date: 05/24/23 Symptoms the patient presented with: bleeding after polyp removed during colonoscopy Current concerns: none flu: UTD Needs her test strips and lancets refilled [facility] History of Present Illness Here for hospital follow up. - NO issues at this time. - Meds rec. - Following with GI - Needs refills. Review of Systems PHQ Score Initial Depression Screen Score: 0 Physical Exam Vitals & Measurements T: 36.4 ?C(Oral) HR: 90(Peripheral) RR: 20 BP: 132/74 SpO2: 99% HT: 59 in HT: 150.8 cm WT: 111.9 kg WT: 246.18 lb BMI: 49.21 General: alert, no acute distress, Morbidly Obese ENMT: oral mucosa moist, Cardiovascular: regular rate and rhythm, normal peripheral perfusion Respiratory: Lungs CTA, respirations non labored Extremities: no deformity, no trauma Neurological: oriented x 4, LOC appropriate for age, CN II-XII intact, motor strength equal & normal bilaterally, speech normal Abdomen: Soft, Nontender, Non-distended, + BS Assessment/Plan 1. Hospital discharge follow-up (Z09: Encounter for follow-up examination after completed treatment for conditions other than malignant neoplasm) - TCM reviewed - D/C summary reviewed - NO acute needs 2. GI bleed (K92.2: Gastrointestinal hemorrhage, unspecified) - Post op - NO issues at this time 3. Type 2 diabetes mellitus with stage 3a chronic kidney disease and hypertension (E11.22: Type 2 diabetes mellitus with diabetic chronic kidney disease) - Stable. - Needs refills on test strips 4. Stage 3a chronic kidney disease (CKD) (N18.31: Chronic kidney disease, stage 3a) - Stable 5. Polyp of colon, unspecified part of colon, unspecified type (K63.5: Polyp of colon) - Removed - Follow up with GI 6. Hypertensive chronic kidney disease with stage 1 through stage 4 chronic kidney disease, or unspecified chronic kidney disease (I12.9: Hypertensive chronic kidney disease with stage 1 through stage 4 chronic kidney disease, or unspecified chronic kidney disease) - Stable Orders: Misc Prescription, Misc DME Prescription, See Instructions, 100 strip(s), 1, one touch test strips. Use to test blood sugars once a day Dx E11.9, [id number], Supply, 150.8, cm, 07/30/23 7:38:00 EDT, Height/Length Dosing, 111.9, kg, 07/30/23 7:38:00 EDT, Weight... Follow-up No qualifying data available Patient Education Hypertension, Adult Chronic Kidney Disease, Adult Problem List/Past Medical History Ongoing Allergic rhinitis Anal fissure Breast cancer screening Colon cancer screening GI bleed Hospital discharge follow-up Hypertension Hypokalemia Hypothyroid Lymphopenia Pericapsulitis of shoulder Polyp of colon Positive colorectal cancer screening using Cologuard test Restrictive lung disease Rotator cuff tendonitis Stage 3a chronic kidney disease (CKD) Thrombocytopenia Total bilirubin, elevated Tremor, essential Type 2 diabetes mellitus with stage 3a chronic kidney disease and hypertension Historical No qualifying data Procedure/Surgical History Colonoscopy (07/24/2023), Bone marrow biopsy (06/24/2023), Carpal tunnel release, section, AWA BSO - Total abdominal hysterectomy and bilateral salpingo-oophorectomy . Medications Albuterol (Eqv-ProAir HFA) 90 mcg/inh inhalation aerosol, 2 puff(s), Inhalation, q6hr aspirin 81 mg oral capsule, 81 mg= 1 cap(s), Oral, Daily glipiZIDE 5 mg Tab, 5 mg= 1 tab(s), Oral, Daily, 3 refills hydrochlorothiazide-l osartan 25 mg-100 mg Tab, 1 tab(s), Oral, Daily, 1 refills levothyroxine 75 mcg (0.075 mg) Tab, 75 mcg= 1 tab(s), Oral, Daily, 3 refills Lipitor 40 mg Tab, 40 mg= 1 tab(s), Oral, Daily Metoprolol tartrate 25 mg Tab, 25 mg= 1 tab(s), Oral, BID Misc DME Prescription, See Instructions, 1 refills Allergies metFORMIN (Nausea, Dizziness, Unknown) sulfa drugs (Hives, Unknown) Social History Alcohol Tobacco Never (less than 100 in lifetime) Tobacco Use:. Never Smokeless Tobacco Use:. Household tobacco concerns: No., 07/30/2023 Family History Diabetes mellitus type 2: Father. Heart disease: Mother and Father. Hypertension: Father. Metastatic cancer: Mother. Immunizations Vaccine Date Status Comments influenza virus vaccine, inactivated - Not Given Parent Or Guardian Refuses influenza virus vaccine, inactivated 07/24/2022 Recorded SARS-CoV-2 (COVID-19) [id number] 07/24/2022 Recorded SARSCoV2 mRNA(ivrblmldp-uzfc-u seemaros) vac 01/15/2022 Recorded influenza virus vaccine, inactivated 07/24/2021 Recorded SARS-CoV-2 (COVID-19) mRNA BNT-162b2 vax 07/10/2021 Recorded SARS-CoV-2 (COVID-19) mRNA BNT-162b2 vax 01/02/2021 Recorded SARS-CoV-2 (COVID-19) mRNA BNT-162b2 vax 12/11/2020 Recorded pneumococcal 23-valent vaccine 06/21/2020 Recorded influenza virus vaccine, inactivated (more content not included)... Normal [facility] Comment on above: Result Comment: Elec tronically Signed By: Denis PATTEN, Willian Beasley.br\Date and Time Signed: 07/30/23 08:00 EDT IntraOperative Documentson 1 IntraOperative Documents [id number] 1.00TIFF Normal [facility] Patient Educationon 07-30-20 Patient Education Cardiovascular Hypertension, Adult High blood pressure (hypertension) is when the force of blood pumping through the arteries is too strong. The arteries are the blood vessels that carry blood from the heart throughout the body. Hypertension forces the heart to work harder to pump blood and may cause arteries to become narrow or stiff. Untreated or uncontrolled hypertension can lead to a heart attack, heart failure, a stroke, kidney disease, and other problems. A blood pressure reading consists of a higher number over a lower number. Ideally, your blood pressure should be below 120/80. The first ( top ) number is called the systolic pressure. It is a measure of the pressure in your arteries as your heart beats. The second ( bottom ) number is called the diastolic pressure. It is a measure of the pressure in your arteries as the heart relaxes. What are the causes? The exact cause of this condition is not known. There are some conditions that result in high blood pressure. What increases the risk? Certain factors may make you more likely to develop high blood pressure. Some of these risk factors are under your control, including: ? Smoking. ? Not getting enough exercise or physical activity. ? Being overweight. ? Having too much fat, sugar, calories, or salt (sodium) in your diet. ? Drinking too much alcohol. Other risk factors include: ? Having a personal history of heart disease, diabetes, high cholesterol, or kidney disease. ? Stress. ? Having a family history of high blood pressure and high cholesterol. ? Having obstructive sleep apnea. ? Age. The risk increases with age. What are the signs or symptoms? High blood pressure may not cause symptoms. Very high blood pressure (hypertensive crisis) may cause: ? Headache. ? Fast or irregular heartbeats (palpitations). ? Shortness of breath. ? Nosebleed. ? Nausea and vomiting. ? Vision changes. ? Severe chest pain, dizziness, and seizures. How is this diagnosed? This condition is diagnosed by measuring your blood pressure while you are seated, with your arm resting on a flat surface, your legs uncrossed, and your feet flat on the floor. The cuff of the blood pressure monitor will be placed directly against the skin of your upper arm at the level of your heart. Blood pressure should be measured at least twice using the same arm. Certain conditions can cause a difference in blood pressure between your right and left arms. If you have a high blood pressure reading during one visit or you have normal blood pressure with other risk factors, you may be asked to: ? Return on a different day to have your blood pressure checked again. ? Monitor your blood pressure at home for 1 week or longer. If you are diagnosed with hypertension, you may have other blood or imaging tests to help your health care provider understand your overall risk for other conditions. How is this treated? This condition is treated by making healthy lifestyle changes, such as eating healthy foods, exercising more, and reducing your alcohol intake. You may be referred for counseling on a healthy diet and physical activity. Your health care provider may prescribe medicine if lifestyle changes are not enough to get your blood pressure under control and if: ? Your systolic blood pressure is above 130. ? Your diastolic blood pressure is above 80. Your personal target blood pressure may vary depending on your medical conditions, your age, and other factors. Follow these instructions at home: Eating and drinking ? Eat a diet that is high in fiber and potassium, and low in sodium, added sugar, and fat. An example of this eating plan is called the DASH diet. DASH stands for Dietary Approaches to Stop Hypertension. To eat this way: ? Eat plenty of fresh fruits and vegetables. Try to fill one half of your plate at each meal with fruits and vegetables. ? Eat whole grains, such as whole-wheat pasta, brown rice, or whole-grain bread. Fill about one fourth of your plate with whole grains. ? Eat or drink low-fat dairy products, such as skim milk or low-fat yogurt. ? Avoid fatty cuts of meat, processed or cured meats, and poultry with skin. Fill about one fourth of your plate with lean proteins, such as fish, chicken without skin, beans, eggs, or tofu. ? Avoid pre-made and processed foods. These tend to be higher in sodium, added sugar, and fat. ? Reduce your daily sodium intake. Many people with hypertension should eat less than 1,500 mg of sodium a day. ? Do not drink alcohol if: ? Your health care provider tells you not to drink. ? You are , may be , or are planning to become . ? If you drink alcohol: ? Limit how much you have to: ? 0?1 drink a day for women. ? 0?2 drinks a day for men. ? Know how much alcohol is in your drink. In the [place] one drink equals one 12 oz bottle of beer (355 mL), one 5 oz glass of wine (148 mL), or one 1? oz glass (more content not included)... Normal [facility] 07-29-20 [facility] Case Information Case Priority: None Programs: -- Referral Source: Line Operator Referral Reason: Care coordination Case Type: Transition Care Management Risk Score: -- Case Status: Enrolled (July 29, 2023) Date Assigned: July 28, 2023 Assigned By: Tatiana Mensah RN Date Enrolled: July 29, 2023 Assigned Primary Personnel: Willie Walker Assigned Secondary Personnel: -- Case Physician: Willian Barrios MD Problems Ongoing Allergic rhinitis Anal fissure Breast cancer screening Colon cancer screening Hypertension Hypokalemia Hypothyroid Lymphopenia Pericapsulitis of shoulder Positive colorectal cancer screening using Cologuard test Restrictive lung disease Rotator cuff tendonitis Stage 3a chronic kidney disease (CKD) Thrombocytopenia Total bilirubin, elevated Tremor, essential Type 2 diabetes mellitus with stage 3a chronic kidney disease and hypertension Historical No qualifying data Procedure/Surgical History Colonoscopy (07/24/2023), Bone marrow biopsy (06/24/2023), Carpal tunnel release, section, AWA BSO - Total abdominal hysterectomy and bilateral salpingo-oophorectomy . Home Medications Albuterol (Eqv-ProAir HFA) 90 mcg/inh inhalation aerosol, 2 puff(s), Inhalation, q6hr aspirin 81 mg oral capsule, 81 mg= 1 cap(s), Oral, Daily glipiZIDE 5 mg Tab, 5 mg= 1 tab(s), Oral, Daily, 3 refills hydrochlorothiazide-l osartan 25 mg-100 mg Tab, 1 tab(s), Oral, Daily, 1 refills levothyroxine 75 mcg (0.075 mg) Tab, 75 mcg= 1 tab(s), Oral, Daily, 3 refills Lipitor 40 mg Tab, 40 mg= 1 tab(s), Oral, Daily Metoprolol tartrate 25 mg Tab, 25 mg= 1 tab(s), Oral, BID Misc DME Prescription, See Instructions, 1 refills Allergies metFORMIN (Nausea, Dizziness, Unknown) sulfa drugs (Hives, Unknown) Social History Alcohol Tobacco Never (less than 100 in lifetime) Tobacco Use:. Never Smokeless Tobacco Use:. Household tobacco concerns: No., 07/22/2023 Family History Diabetes mellitus type 2: Father. Heart disease: Mother and Father. Hypertension: Father. Metastatic cancer: Mother. Screenings and Assessments 07/29/23 14:30:00 Result Name Value Comment Phone Call Monitoring Consent Agreed to continue call Phone Verification Patient Information Full name, street address and date of verified CM Program Enrollment Provides verbal consent for enrollment Goals and Interventions Care Plan Progress Note Admit Date: 07/24/2023 Date of Discharge: 07/25/2023 Follow-up appointment scheduled? TCM f/u 07/30/[address] Barrios, Dr. Rashid 07/31/2023 at 1000. Did you understand your discharge instructions? yes Are you able to follow them? yes Did you receive new medications? no Have you filled the Rx's? n/a Are you taking them as prescribed? n/a Are you having difficulty eating or swallowing your pills? no Are you having any stomach upset, diarrhea or constipation? no How are you sleeping? fine Are you having any pain? no Do you have everything you need at home to care for yourself? yes Do you have Home Health? no Patient returned initial call for Transitional Care Management Program, states she is doing fine. Patient is a low readmission risk score. Reviewed D/C instructions and and dx of Colon polyps, Hypertension, Hypothyroid, Stage 3a chronic kidney disease (CKD), Controlled type 2 diabetes mellitus without complication, without long-term current use of insulin, HLD (hyperlipidemia). Patient had colonoscopy on 07/24. Patient did not receive any new prescriptions. Patient has not checked her BP, notes it has been 'running good though.'Patient is eating and drinking well. Notes last BM today, denies any bowel issues or concerns. Denies any urinary issues. Reviewed the following appointments with patient; TCM f/u 07/30/[address] Barrios and to bring medications, Dr. Rashid 07/31/2023 at 1000. Patient denies any further questions or concerns at this time. Medications to be reconciled at OV. CN explained TCM program and gave contact information. Communication Events Date: July 29, 2023 Method: Phone call Type: Inbound Duration (min): 5 Outcome: Case discussion Contact Type: Patient Contact Name: MISA SANTOS Notes: TCM#1- Patient returned call for initial TCM program call status update. See Case summary note. Created By: Willie Walker Date: July 29, 2023 Method: Phone call Type: Outbound Duration (min): 1 Outcome: Left message-voicemail Contact Type: patient safety coordinator Contact Name: Willie Walker Notes: TCM#1- attempted to reach pt for initial TCM program call status update, no answer, left VM for return call. OV 07/30, no unable to contact letter sent at this time. Created By: Willie Walker Date: July 28, 2023 Method: Phone call Type: Outbound Duration (min): 1 Outcome: Left message-voicemail Contact Type: patient safety coordinator Contact Name: F (more content not included)... Normal [facility] Discharge Instructionson Discharge Instructions [id number] 1.00TIFF Normal [facility] Main OR Intraoperative Recor don 07-28-2023 Main OR Intraoperative Record IntraOp Document Type FT Summary Primary Physician: Deborah Rashid MD Finalized Date/Time: 07/28/23 09:30:17 Pt. Name: MISA SANTOSO.B./Sex: 1955 Female Med Rec #: [id number] Physician: Lucas Bates DO Financial #: [id number] Pt. Type: O Room/Bed: N211/01 Admit/Disch: 07/24/23 08:54:00 - 07/25/23 09:50:00 Institution: Case Times FT Entry 1 Patient Times In Room 07/24/23 09:58:00 Out Room 07/24/23 11:03:00 Procedure Times Start 07/24/23 10:02:00 Stop 07/24/23 11:00:00 Anesthesia Times Start 07/24/23 09:58:00 Stop 07/24/23 11:03:00 Time at [facility] 07/24/23 10:10:00 Last Modified By: aMndy Carey RN 07/24/23 11:03:36 General Comments: 07/28/23 Chart opened to review and send charges LRoth CSFA Case Attendance FT Entry 1 Entry 2 Entry 3 Case Attendee Troy SANCHEZ, Juan Carlos Carey RN, Elmer Rodriguez Role Performed SURGICAL ELASTIC KNITTER Paperboard Box Maker - Primary Scrub - Primary Time In 07/24/23 09:58:00 07/24/23 09:58:00 07/24/23 09:58:00 Time Out 07/24/23 11:03:00 07/24/23 11:03:00 07/24/23 11:03:00 Procedure COLONOSCOPY(.) COLONOSCOPY(.) COLONOSCOPY(.) Comments Dr. Dyson is supervising Last Modified By: Aurelio MATOS, Mandy Carey RN, Mandy Carey RN, Mandy Trinidad 07/24/23 11:03:37 07/24/23 11:03:37 07/24/23 11:03:37 Entry 4 Entry 5 Case Attendee Nelli BRO, Rosalee Rashid MD, Deborah Bell Role Performed Staff - Other Surgeon - Primary Time In 07/24/23 09:58:00 07/24/23 09:58:00 Time Out 07/24/23 11:03:00 07/24/23 11:03:00 Procedure COLONOSCOPY(.) COLONOSCOPY(.) Comments Last Modified By: Aurelio MATOS, Mandy Carey RN, Mandy Trinidad 07/24/23 11:03:37 07/24/23 11:03:37 Perioperative Protocols FT Pre-Care Text: Implements protective measures prior to operative or invasive procedure, confirms identity before the operative or invasive procedure, verifies operative procedure, surgical site, and laterality Entry 1 Procedure(s) COLONOSCOPY(.) Patient Identity Birthday, ID Band Verified (select at Check, Patient least 2): Participation Consents / H and P Anesthesia Consent, Operative Site N/A Verified HandP, Surgery/Procedure Marking Verified Consent Surgical Site No Laterality Verified n/a Verified Procedure Verified Yes Correct Patient Yes Position Verified Availability Equipment, Medication Prep Dry n/a Verified (If Applicable) PreOp Antibiotic No Time Out Juan Carlos Simmons CRNA, Given Participants Aurelio MATOS, Mandy Trinidad, Elmer Couch, Nelli BRO, Rachid Macdonald MD, Deborah Bell Time Out Complete 07/24/23 10:00:00 Outcomes Met? Yes Last Modified By: Mandy Carey RN 07/24/23 10:00:58 Post-Care Text: The patient is free from signs and symptoms of injury caused by extraneous objects Allergy Information FT Pre-Care Text: Verifies allergies Entry 1 Allergies Reviewed? Yes Allergies Reviewed Self/Patient With Outcomes Met? Yes Last Modified By: Mandy Carey RN 07/24/23 10:01:25 Post-Care Text: The patient received appropriate medication(s) safely administered during the perioperative period Surgical Procedures FT Entry 1 Procedure Description Procedure COLONOSCOPY Modifiers . Surgeon Description Colonoscopy with ascending colon polypectomy with x1 hemmoclips applied. Sigmoid colon polyp injected 3.5ml of epinepherine at the base and removed with hot snare, x4 hemmoclips applied at the post polypectomy site and hot grasper used at the site. Primary Procedure Yes Primary Surgeon Rachid PATTEN, Deborah Bell Start 07/24/23 10:02:00 Stop 07/24/23 11:00:00 Anesthesia Type General Surgical Service Gastroenterology Wound Class 2 - Clean-Contaminated Last Modified By: Mandy Carey RN 07/24/23 11:02:20 General Case Data FT Pre-Care Text: Classifies surgical wound, implements aseptic technique, initiates traffic control Entry 1 Case Information OR ENDO 1 FT Case Level Level 2 Wound Class 2 - Clean-Contaminated Specialty Gastroenterology ASA Class 4 Preop Diagnosis Colon cancer screening, Postop Same As Preop No positive cologuard Postop Diagnosis Ascending colon polyp, Outcomes Met? Yes large sigmoid colon polyp Last Modified By: Mandy Carey RN 07/24/23 11:00:14 Post-Care Text: The patient is free from signs and symptoms of infection Skin Assessment (Pre Procedure) FT Pre-Care Text: Implements protective measures to prevent skin/ tissue injury due to thermal or mechanical sources Evaluates for signs and symptoms of physical injury to skin and tissue Entry 1 Skin Integrity Intact, [place], Warm, and Skin Abnormality No Dry Outcomes Met? Yes Last Modified By: Mandy Carey RN 07/24/23 10:03:34 Post-Care Text: The patient is free from signs and symptoms of injury caused by extraneous objects Patient Positioning FT Pre-Care Text: Identifies physical alter (more content not included)... Normal [facility] Auto Diffon 07-25-2023 Basophils/100 WBC (Bld) 0.9 % Normal 0.0-2.0 [facility] Comment on above: Order Comment: Order Added by Discern Expert. Performed By: #### 7 [id number], [id number], [id number], [id number] #### [facility] [address] [place] [address] Basophils/Leukocytes Auto (Bld) [Pure # fraction] 0.0 E9/L Normal 0.0-0.2 [facility] Comment on above: Order Comment: Order Added by Discern Expert. Performed By: #### 7 [id number], [id number], [id number], [id number] #### [facility] [address] [place] [address] Eosinophils/100 WBC (Bld) 3.2 % Normal 0.0-8.0 [facility] Comment on above: Order Comment: Order Added by Discern Expert. Performed By: #### 7 [id number], [id number], [id number], [id number] #### [facility] [address] [place] [address] Eosinophils/Leukocyt es Auto (Bld) [Pure # fraction] 0.1 E9/L Normal 0.0-0.5 [facility] Comment on above: Order Comment: Order Added by Discern Expert. Performed By: #### 7 [id number], [id number], [id number], [id number] #### [facility] [address] [place] [address] Lymphocytes/100 WBC (Bld) 25.7 % Normal 14.0-50.0 [facility] Comment on above: Order Comment: Order Added by Discern Expert. Performed By: #### 7 [id number], [id number], [id number], [id number] #### [facility] [address] [place] [address] Lymphocytes/Leukocyt es Auto (Bld) [Pure # fraction] 0.6 E9/L Low 1.0-4.0 [facility] Comment on above: Order Comment: Order Added by Areli Expert. Performed By: #### 7 [id number], [id number], [id number], [id number] #### [facility] [address] [place] [address] Monocytes/100 WBC (Bld) 10.8 % Normal 4.0-14.0 [facility] Comment on above: Order Comment: Order Added by Areli Expert. Performed By: #### 7 [id number], [id number], [id number], [id number] #### [facility] [address] [place] [address] Monocytes/Leukocytes Auto (Bld) [Pure # fraction] 0.3 E9/L Normal 0.2-1.0 [facility] Comment on above: Order Comment: Order Added by Discern Expert. Performed By: #### 7 [id number], [id number], [id number], [id number] #### [facility] [address] [place] [address] Neutrophils/100 WBC (Bld) 59.4 % Normal 36.0-75.0 [facility] Comment on above: Order Comment: Order Added by Areli Expert. Performed By: #### 7 [id number], [id number], 55376869, [id number] #### [facility] [address] [place] [address] Neutrophils/Leukocyt es Auto (Bld) [Pure # fraction] 1.5 E9/L Low 2.0-7.5 [facility] Comment on above: Order Comment: Order Added by Discern Expert. Performed By: #### 7 [id number], [id number], [id number], [id number] #### [facility] [address] [place] [address] CBC w/ Auto Diffon Erythrocyte distribution width (RBC) [Ratio] 13.1 % Normal 10.9-14.2 [facility] Comment on above: Performed By: #### 7 [id number], 9791400, 15352922, [id number] #### [facility] [address] [id number] Hematocrit (Bld) [Volume fraction] 31.8 % Low 34.0-46.0 [facility] Comment on above: Performed By: #### 7 [id number], 3106183, 33434014, [id number] #### [facility] [address] [place] [address] Hemoglobin (Bld) [Mass/Vol] 10.9 g/dL Low 12.0-16.0 [facility] Comment on above: Performed By: #### 7 [id number], 9558574, 29840899, 5389798 #### [facility] [address] [place] [address] MCH (RBC) [Entitic mass] 31.7 pg Normal 27.0-34.0 [facility] Comment on above: Performed By: #### 7 [id number], 4303150, 77260824, 6637490 #### [facility] [address] [place] [address] MCHC (RBC) [Mass/Vol] 34.3 g/dL Normal 31.4-36.0 [facility] Comment on above: Performed By: #### 7 [id number], [id number], [id number], [id number] #### [facility] [address] [place] [address] MCV (RBC) [Entitic vol] 92.3 fL Normal 80.0-100.0 [facility] Comment on above: Performed By: #### 7 [id number], 8862571, 16126242, 7535883 #### [facility] [address] [place] [address] Platelet mean volume (Bld) [Entitic vol] 8.5 fL Normal 6.4-10.8 [facility] Comment on above: Performed By: #### 7 [id number], 6007091, 68803866, 0022525 #### [facility] [address] [place] [address] Platelets (Bld) [#/Vol] 79.0 E9/L Low 150.0-500.0 [facility] Comment on above: Performed By: #### 7 [id number], 0717134, 74478555, 0172654 #### [facility] [address] [place] [address] RBC (Bld) [#/Vol] 3.4 E12/L Low 4.3-5.9 [facility] Comment on above: Performed By: #### 7 [id number], 1970257, 94292277, 9480870 #### [facility] [address] [place] [address] WBC corrected for nucl RBC Auto (Bld) [#/Vol] 2.5 E9/L Low 4.0-11.0 [facility] Comment on above: Performed By: #### 7 [id number], 3110391, 94938192, 5567299 #### [facility] [address] [place] [address] Capillary Glucose POC 07-13 Glucose [Mass/Vol] 89 mg/dL Normal 55-99 [facility] Comment on above: Result Comment: Marilyn newell RN/ Performed By: #### 7 [id number], [id number], 59938491, 6891910 #### [facility] [address] [id number] [place] 07-25-2023 Consent [id number] 1.00TIFF Normal [facility] Inpatient Clinical Summaryon 07-25-2023 Inpatient Clinical Summary [address] [address] Clinical Summary Person Information: Name: MISA SANTOS Age: 68 Years : 1955 Sex: Female PCP: Willian Barrios MD Marital Status: Race: White Ethnicity: Non- or Language: Thai Visit Id: Visit Reason: COLON CANCER SCREENING, POSITIVE COLON CANCER SCREENING USING COLOGUARD Speciality: Acuity: Enc Type: Observation Med Service: Medical Arrival: 07/24/2023 08:54:00 Discharge: Dispo Type: Address: [address] [place] [id number] Provider Notes: Diagnosis: 2:Hypertension; 3:Hypothyroid; 4:Stage 3a chronic kidney disease (CKD); 5:Controlled type 2 diabetes mellitus without complication, without long-term current use of insulin; 6:HLD (hyperlipidemia) Problems Active Positive colorectal cancer screening using Cologuard test Lymphopenia Controlled type 2 diabetes mellitus without complication, without long-term current use of insulin Total bilirubin, elevated Hypokalemia Stage 3a chronic kidney disease (CKD) Thrombocytopenia Breast cancer screening Colon cancer screening Rotator cuff tendonitis Pericapsulitis of shoulder Allergic rhinitis Restrictive lung disease Hypothyroid Hypertension Tremor, essential Anal fissure Smoking Status: Never Smoker Functional Status: Sensory Deficits: History of Falls: Mobility Assistance Prior to Admission: ADLs: Independent Current Level of Assistance for Self-Care/Mobility: Cognitive Status: Oriented x 3 Allergies metFORMIN (Unknown) (Dizziness) (Nausea) sulfa drugs (Unknown) (Hives) Measurements: Height: 150.8 cm Weight: 114 kg Blood Pressure: 140 mmHg / 83 mmHg BMI: 50.13 kg/m2 Procedures Colonoscopy (07/24/2023) Immunizations No Immunizations Documented This Visit Final Med List: albuterol (Albuterol (Eqv-ProAir HFA) 90 mcg/inh inhalation aerosol) 2 Puffs Inhalation every 6 hours. Refills: 0. aspirin (aspirin 81 mg oral capsule) 1 Capsules By Mouth every day. atorvastatin (Lipitor 40 mg Tab) 1 Tablets By Mouth every day. Refills: 0. glipiZIDE (glipiZIDE 5 mg Tab) 1 Tablets By Mouth every day. Refills: 3. hydrochlorothiazide-l osartan (hydrochlorothiazide- losartan 25 mg-100 mg Tab) 1 Tablets By Mouth every day. levothyroxine (levothyroxine 75 mcg (0.075 mg) Tab) 1 Tablets By Mouth every day. Refills: 0. metoprolol (Metoprolol tartrate 25 mg Tab) 1 Tablets By Mouth 2 times a day. [facility] ([facility]) one touch test strips. Use to test blood sugars once a day Dx E11.9. Refills: 1. Care Team Members: Attending Physician: Lucas Bates DO Consulting Physician: Referring Physician: Rachid PATTEN, Deborah Bell Follow up: With: Address: When: Willian Barrios [facility] [address] [facility] ([employer] 07/30/2023 7:40 AM With: Address: When: Rachid PATTEN, Deborah Bell, [address], [address] [phone] 07/31/2023 10:00 AM Comments: This is with Ashlie Mead. Thank you. Type Location Start Finish State ER/Hospital Follow Up [facility] 07/30/2023 7:40 AM 07/30/2023 8:00 AM Confirmed BADH Follow Up [facility] 07/31/2023 10:00 AM 07/31/2023 10:20 AM Confirmed FM Medicare Wellness Subsequent [facility] 08/29/2023 11:00 AM 08/29/2023 12:00 PM Confirmed FM Open FT [facility] 09/16/2023 2:20 PM 09/16/2023 2:40 PM Confirmed ONC Office Visit 30 (FT) FT.ONCOLOGY 09/23/2023 10:00 AM 09/23/2023 10:30 AM Confirmed FM Open FT [facility] 09/29/2023 11:20 AM 09/29/2023 11:40 AM Confirmed Patient Education Information: Colonoscopy, Adult, Care After, [id number]; Colon Polyps Normal [facility] Inpatient Patient Summaryon 07-25-2023 Inpatient Patient Summary MISA SANTOS :1955 Visit Date:07/24/2023 Inpatient Discharge Instructions Your Care Team Admitting Physician - Lucas Bates DO Referring Physician - Rachid PATTEN, Deborah Bell Reason for Your Visit Bleeding post polyp cauterization Your Diagnosis Colon polyps Hypertension Hypothyroid Stage 3a chronic kidney disease (CKD) Controlled type 2 diabetes mellitus without complication, without long-term current use of insulin HLD (hyperlipidemia) Tests Performed Automated Diff Capillary Glucose POC CBC w/ Auto Diff This Is Your Medications List Misc Prescription (Misc DME Prescription) albuterol (Albuterol (Eqv-ProAir HFA) 90 mcg/inh inhalation aerosol) aspirin (aspirin 81 mg oral capsule) atorvastatin (Lipitor 40 mg Tab) glipiZIDE (glipiZIDE 5 mg Tab) hydrochlorothiazide-l osartan (hydrochlorothiazide- losartan 25 mg-100 mg Tab) levothyroxine (levothyroxine 75 mcg (0.075 mg) Tab) metoprolol (Metoprolol tartrate 25 mg Tab) Procedure History Colonoscopy (07/24/2023), Bone marrow biopsy (06/24/2023), Carpal tunnel release, section, AWA BSO - Total abdominal hysterectomy and bilateral salpingo-oophorectomy . Discharge Vitals Temperature (Axillary) 36.5 ?C Heart Rate (Monitored) 64 Respiratory Rate 18 Blood Pressure 140/83 Height 150.8 cm Weight 114 kg BMI 50.13 What to do next Instructions From Your Doctor Event Name Event Result Pending Diagnostic Test Results None Pharmacy Information [facility] [place] Discharge Instructions These return to ER if symptoms change or worsen. Please call GI office for appointment. Previously Scheduled Follow-Up Appointments Friday 7:40 AM EDT With: Denis PATTEN, Willian Weiner Where: [facility] Invalid Interpretation Code [address] [facility] [address] [place] [address] [place] [address]- \.br\ Friday 11:00 AM EST \.br\ With:\.br\ Where: [facility] Inpatient Patient Summary MISA SANTOS :1955 Visit Date:07/24/2023 Inpatient Discharge Instructions Your Care Team Admitting Physician - Lucas Bates DO Referring Physician - Rachid PATTEN, Deborah Bell Reason for Your Visit Bleeding post polyp cauterization Your Diagnosis Colon polyps Hypertension Hypothyroid Stage 3a chronic kidney disease (CKD) Controlled type 2 diabetes mellitus without complication, without long-term current use of insulin HLD (hyperlipidemia) Tests Performed Automated Diff Capillary Glucose POC CBC w/ Auto Diff This Is Your Medications List Misc Prescription (Misc DME Prescription) albuterol (Albuterol (Eqv-ProAir HFA) 90 mcg/inh inhalation aerosol) aspirin (aspirin 81 mg oral capsule) atorvastatin (Lipitor 40 mg Tab) glipiZIDE (glipiZIDE 5 mg Tab) hydrochlorothiazide-l osartan (hydrochlorothiazide- losartan 25 mg-100 mg Tab) levothyroxine (levothyroxine 75 mcg (0.075 mg) Tab) metoprolol (Metoprolol tartrate 25 mg Tab) Procedure History Colonoscopy (07/24/2023), Bone marrow biopsy (06/24/2023), Carpal tunnel release, section, AWA BSO - Total abdominal hysterectomy and bilateral salpingo-oophorectomy . Discharge Vitals Temperature (Axillary) 36.5 ?C Heart Rate (Monitored) 64 Respiratory Rate 18 Blood Pressure 140/83 Height 150.8 cm Weight 114 kg BMI 50.13 What to do next Instructions From Your Doctor Event Name Event Result Pending Diagnostic Test Results Biopsy/pathology Pharmacy Information [facility] Discharge Instructions These return to ER if symptoms change or worsen. Please call GI office for appointment. Previously Scheduled Follow-Up Appointments Friday 7:40 AM EDT With: Denis PATTEN, Willian Weiner Where: [facility] Invalid Interpretation Code [address] [place] [address]- \.br\ Friday 11:00 AM EST \.br\ With:\.br\ Where: [facility] Inpatient Patient Summary [address] [address] Patient Discharge Instructions PERSON INFORMATION Name: MISA SANTOS Date of : 1955 Current Date: 07/25/2023 08:45:51 PHYSICIANS Admitting Physician: Lucas Bates DO Primary Care Physician: Willian Barrios MD PCP Comment: Discharge Diagnosis: 2:Hypertension; 3:Hypothyroid; 4:Stage 3a chronic kidney disease (CKD); 5:Controlled type 2 diabetes mellitus without complication, without long-term current use of insulin; 6:HLD (hyperlipidemia) Condition at Discharge: Stable MISA SANTOS has been given the following list of follow-up instructions, prescriptions, and patient education materials: PATIENT FOLLOW-UP INFORMATION Diet: Discharge Activity: Discharge Restrictions: Wound Care Instructions: Remove Your Dressing In Days Call Your Doctor For: IF UNABLE TO CONTACT YOUR PHYSICIAN AND YOU FEEL IT IS AN EMERGENCY, GO TO THE NEAREST EMERGENCY ROOM OR CALL 911 Home Treatment: Devices/Equipment: None Special Services: Additional Instructions: These return to ER if symptoms change or worsen. Please call GI office for appointment. Primary Care Physician to provide the following pending test results: Biopsy/pathology Follow up: With: Address: When: Willian Barrios [facility] [place] [address] Business (2) 07/30/2023 7:40 AM With: Address: When: Rachid PATTEN, ROGELIO Villarreal, [facility] [address], [address] [phone] 07/31/2023 10:00 AM Comments: This is with Ashlie Mead. Thank you. In the event that this physician does not participate in your insurance network, please consult with your insurance company to find a nearby participating provider. Type Location Start [facility] ER/Hospital Follow Up FT [facility] 07/30/2023 7:40 AM 07/30/2023 8:00 AM Confirmed BADH Follow Up [facility] 07/31/2023 10:00 AM 07/31/2023 10:20 AM Confirmed FM Medicare Wellness Subsequent FT [facility] 08/29/2023 11:00 AM 08/29/2023 12:00 PM Confirmed FM Open FT [facility] [place] 09/16/2023 2:20 PM 09/16/2023 2:40 PM Confirmed ONC Office Visit 30 (FT) FT.ONCOLOGY 09/23/2023 10:00 AM 09/23/2023 10:30 AM Confirmed FM Open FT [facility] 09/29/2023 11:20 AM 09/29/2023 11:40 AM Confirmed Comment: TOM Peterson DOROTHY JEAN, have received the attached patient education materials/instruction s and have verbalized understanding: Patient Signature Date Clinican/Nurse Signature Date HERE ARE THE MEDICATION CHANGES THAT OCCURRED DURING YOUR HOSPITAL STAY Medications to Continue with No Changes Other Medications albuterol (Albuterol (Eqv-ProAir HFA) 90 mcg/inh inhalation aerosol) 2 Puffs Inhalation every 6 hours. Refills: 0. Last Dose: ____Next Dose: ____ aspirin (aspirin 81 mg oral capsule) 1 Capsules By Mouth every day. Patient instructions: do not take until you follow up with Dr. Rashid Last Dose: ____Next Dose: ____ atorvastatin (Lipitor 40 mg Tab) 1 Tablets By Mouth every day. Refills: 0. Last Dose: ____Next Dose: ____ glipiZIDE (glipiZIDE 5 mg Tab) 1 Tablets By Mouth every day. Refills: 3. Last Dose: ____Next Dose: ____ hydrochlorothiazide-l osartan (hydrochlorothiazide- losartan 25 mg-100 mg Tab) 1 Tablets By Mouth every day. Last Dose: ____Next Dose: ____ levothyroxine (levothyroxine 75 mcg (0.075 mg) Tab) 1 Tablets By Mouth every day. Refills: 0. Last Dose: ____Next Dose: ____ metoprolol (Metoprolol tartrate 25 mg Tab) 1 Tablets By Mouth 2 times a day. Last Dose: ____Next Dose: ____ Misc Prescription (Misc DME Prescription) one touch test strips. Use to test blood sugars once a day Dx E11.9. Refills: 1. Last Dose: ____Next Dose: ____ Comment: MEDICATION LIST PROVIDED FOR YOU IS A LIST OF YOUR CURRENT MEDICATIONS. PLEASE CARRY THIS WITH YOU AT ALL TIMES. albuterol (Albuterol (Eqv-ProAir HFA) 90 mcg/inh inhalation aerosol) 2 Puffs Inhalation every 6 hours. Refills: 0. aspirin (aspirin 81 mg oral capsule) 1 Capsules By Mouth every day. atorvastatin (Lipitor 40 mg Tab) 1 Tablets By Mouth every day. Refills: 0. glipiZIDE (glipiZIDE 5 mg Tab) 1 Tablets By Mouth every day. Refills: 3. hydrochlorothiazide-l osartan (hydrochlorothiazide- losartan 25 mg-100 mg Tab) 1 Tablets By Mouth every day. levothyroxine (levothyroxine 75 mcg (0.075 mg) Tab) 1 Tablets By Mouth every day. Refills: 0. metoprolol (Metoprolol tartrate 25 mg Tab) 1 Tablets By Mouth 2 times a day. Misc Prescription (Misc DME Prescription (more content not included)... [facility] Interdisciplinary Note - Lui e Manageron 07-25-2023 Interdisciplinary Note - [facility] CRM to room to discuss DC Planning. Patient is awake, alert and oriented. Patient is from home with her Spouse and Son. Patient Son is on way to get her per Patient. Patient verified PCP, home DME and insurance. Norris form signed for observation status. Patient is here for positive colon CA screen . Patient on 07/24 had Colonoscopy. Patient denied any current home services. Patient denied need for DME, HH or PM at [facility]. Patient is assigned to DR Bates, see his notes. Patient is a DC home today. CRM following. [facility] Comment on above: Result Comment: Elec tronically Signed By: Larisa Mccormack\.br\Date and Time Signed: 07/25/23 09:28 EDT Message from Medicareon - Message from Medicare [id number]# 1.00TIFF [facility] Patient Education - Texton 1 Patient Education - Text Oncology Colon Polyps Colon polyps are tissue growths inside the colon, which is part of the large intestine. They are one of the types of polyps that can grow in the body. A polyp may be a round bump or a mushroom-shaped growth. You could have one polyp or more than one. Most colon polyps are noncancerous (benign). However, some colon polyps can become cancerous over time. Finding and removing the polyps early can help prevent this. What are the causes? The exact cause of colon polyps is not known. What increases the risk? The following factors may make you more likely to develop this condition: ? Having a family history of colorectal cancer or colon polyps. ? Being older than 45 years of age. ? Being younger than 45 years of age and having a significant family history of colorectal cancer or colon polyps or a genetic condition that puts you at higher risk of getting colon polyps. ? Having inflammatory bowel disease, such as ulcerative colitis or Crohn's disease. ? Having certain conditions passed from parent to child (hereditary conditions), such as: ? Familial adenomatous polyposis (FAP). ? Mishra syndrome. ? Turcot syndrome. ? Peutz?Jeghers syndrome. ? MUTYH-associated polyposis (MAP). ? Being overweight. ? Certain lifestyle factors. These include smoking cigarettes, drinking too much alcohol, not getting enough exercise, and eating a diet that is high in fat and red meat and low in fiber. ? Having had childhood cancer that was treated with radiation of the abdomen. What are the signs or symptoms? Many times, there are no symptoms. If you have symptoms, they may include: ? Blood coming from the rectum during a bowel movement. ? Blood in the stool (feces). The blood may be bright red or very dark in color. ? Pain in the abdomen. ? A change in bowel habits, such as constipation or diarrhea. How is this diagnosed? This condition is diagnosed with a colonoscopy. This is a procedure in which a lighted, flexible scope is inserted into the opening between the buttocks (anus) and then passed into the colon to examine the area. Polyps are sometimes found when a colonoscopy is done as part of routine cancer screening tests. How is this treated? This condition is treated by removing any polyps that are found. Most polyps can be removed during a colonoscopy. Those polyps will then be tested for cancer. Additional treatment may be needed depending on the results of testing. Follow these instructions at home: Eating and drinking ? Eat foods that are high in fiber, such as fruits, vegetables, and whole grains. ? Eat foods that are high in calcium and vitamin D, such as milk, cheese, yogurt, eggs, liver, fish, and broccoli. ? Limit foods that are high in fat, such as fried foods and desserts. ? Limit the amount of red meat, precooked or cured meat, or other processed meat that you eat, such as hot dogs, sausages, yun, or meat loaves. ? Limit sugary drinks. Lifestyle ? Maintain a healthy weight, or lose weight if recommended by your health care provider. ? Exercise every day or as told by your health care provider. ? Do not use any products that contain nicotine or tobacco, such as cigarettes, e-cigarettes, and chewing tobacco. If you need help quitting, ask your health care provider. ? Do not drink alcohol if: ? Your health care provider tells you not to drink. ? You are , may be , or are planning to become . ? If you drink alcohol: ? Limit how much you use to: ? 0?1 drink a day for women. ? 0?2 drinks a day for men. ? Know how much alcohol is in your drink. In the [place] one drink equals one 12 oz bottle of beer (355 mL), one 5 oz glass of wine (148 mL), or one 1? oz glass of hard liquor (44 mL). General instructions ? Take aatz-lmg-fkclvfy and prescription medicines only as told by your health care provider. ? Keep all follow-up visits. This is important. This includes having regularly scheduled colonoscopies. Talk to your health care provider about when you need a colonoscopy. Contact a health care provider if: ? You have new or worsening bleeding during a bowel movement. ? You have new or increased blood in your stool. ? You have a change in bowel habits. ? You lose weight for no known reason. Summary ? Colon polyps are tissue growths inside the colon, which is part of the large intestine. They are one type of polyp that can grow in the body. ? Most colon polyps are noncancerous (benign), but some can become cancerous over time. ? This condition is diagnosed with a colonoscopy. ? This condition is treated by removing any polyps that are found. Most polyps can be removed during a colonoscopy. This information is not intended to replace advice given to you by your health care provider. Make sure you discuss any questions you have with your health care provider. Document Revised: 01/17/2021 D (more content not included)... Normal [facility] Postoperative Documentson Postoperative Documents [id number]# 1.00TIFF Hilda [facility] Progress Note-Physicianon Progress Note-Physician Patient: MISA SANTOS Age: 68 years Sex: Female : 1955 Associated Diagnoses: None Author: Jim Dyson Jr, DO Preoperative Information Anesthesia Preop Info: Time patient last ate or drank 07/24/2023 00:00:00. Anesthesia history: Patient history: None. Family history+: None. Informed consent: Signed by patient. Re-evaluation prior to induction: Initial evaluation reviewed: No significant change. Review of Systems Eye: Negative except as documented in history of present illness. Ear/Nose/Mouth/Throat : Negative except as documented in history of present illness. Respiratory: Negative except as documented in history of present illness. Cardiovascular: Negative except as documented in history of present illness. Musculoskeletal: Negative except as documented in history of present illness. Neurologic: Negative except as documented in history of present illness. Health Status Allergies: Allergic Reactions (Selected) Severity Not Documented MetFORMIN- Unknown, dizziness and nausea. Sulfa drugs- Unknown and hives. Problem list: All Problems Pericapsulitis of shoulder / SNOMED CT 0147173768 / Confirmed Allergic rhinitis / SNOMED CT 506820074 / Confirmed Anal fissure / SNOMED CT 19244036 / Confirmed Stage 3a chronic kidney disease (CKD) / SNOMED CT 9779298470 / Confirmed Tremor, essential / SNOMED CT 0529161800 / Confirmed Hypertension / SNOMED CT 4599087991 / Confirmed Hypokalemia / SNOMED CT 04693993 / Confirmed Hypothyroid / SNOMED CT 93541399 / Confirmed Rotator cuff tendonitis / SNOMED CT 3241354540 / Confirmed Lymphopenia / SNOMED CT 11700655 / Confirmed Colon cancer screening / SNOMED CT 750484101 / Confirmed Breast cancer screening / SNOMED CT 863993615 / Confirmed Restrictive lung disease / SNOMED CT 37864191 / Confirmed Positive colorectal cancer screening using Cologuard test / SNOMED CT 4967023521 / Confirmed Thrombocytopenia / SNOMED CT 288285812 / Confirmed Total bilirubin, elevated / SNOMED CT 9485933380 / Confirmed Controlled type 2 diabetes mellitus without complication, without long-term current use of insulin / ICD-10-CM E11.9 / Confirmed Histories Procedure history: Bone marrow biopsy ([id number]) on 06/24/2023 at 68 Years. Comments: 06/24/2023 13:56 EDT - Tiffanie RN, BSN, Larisa R ct section ([id number]). Comments: 02/07/2023 14:23 EDT - Janice Hassan LPN X1 Carpal tunnel release ([id number]). AWA BSO - Total abdominal hysterectomy and bilateral salpingo-oophorectomy (6237391074). Social History Social & Psychosocial Habits Alcohol Comment: denies - 06/04/2023 13:03 - De La Fuente, Ana Luisa I Tobacco 07/22/2023 Tobacco Use: Never (less than 100 in l Smokeless tobacco use: Never Concerns about tobacco use in household: No . Physical Examination Airway: Mallampati classification: II (soft palate, fauces, uvula visible). Respiratory: adequate air exchange. Cardiovascular: Regular rhythm. Plan [place] [employer] (ASA) physical status classification: Class IV. Anesthetic Preoperative Plan: Anesthesia General. [facility] Comment on above: Result Comment: Elec tronically Signed By: Jim Dyson Jr, DO\.br\Date and Time Signed: 07/25/23 15:47 EDT Progress Note-Physician Patient: MISA SANTOS Age: 68 years Sex: Female : 1955 Associated Diagnoses: None Author: Jim Dyson Jr, DO Postoperative Information Postoperative disposition: Postoperative disposition: To PACU. Optimetrix number: Optimetrix number [id number]. Anesthetic utilized: General. Health Status Allergies: Allergic Reactions (Selected) Severity Not Documented MetFORMIN- Unknown, dizziness and nausea. Sulfa drugs- Unknown and hives. Physical Examination Vital Signs 07/24/2023 13:14 EDT Hourly Rounding Yes Promise to Return Yes 07/24/2023 12:00 EDT Temperature Temporal Artery 36.3 DegC Heart Rate Monitored 53 bpm LOW Systolic Blood Pressure 131 mmHg Diastolic Blood Pressure 81 mmHg Hourly Rounding Yes Promise to Return Yes SpO2 98 % 07/24/2023 11:40 EDT Heart Rate Monitored 54 bpm LOW Respiratory Rate Monitored 19 br/min Systolic Blood Pressure 120 mmHg Diastolic Blood Pressure 58 mmHg LOW SpO2 95 % 07/24/2023 11:20 EDT Heart Rate Monitored 53 bpm LOW Respiratory Rate Monitored 18 br/min Systolic Blood Pressure 115 mmHg Diastolic Blood Pressure 70 mmHg SpO2 94 % 07/24/2023 11:15 EDT Heart Rate Monitored 54 bpm LOW Respiratory Rate Monitored 19 br/min Systolic Blood Pressure 115 mmHg Diastolic Blood Pressure 70 mmHg SpO2 94 % 07/24/2023 11:10 EDT Heart Rate Monitored 57 bpm LOW Respiratory Rate Monitored 19 br/min Systolic Blood Pressure 102 mmHg Diastolic Blood Pressure 70 mmHg SpO2 94 % 07/24/2023 11:04 EDT Temperature Temporal Artery 36.5 DegC Heart Rate Monitored 62 bpm Respiratory Rate Monitored 13 br/min Systolic Blood Pressure 108 mmHg Diastolic Blood Pressure 58 mmHg LOW SpO2 95 % Pain Assessment: Controlled. General: Awake, Alert, Appropriate. Respiratory: Adequate air exchange. Cardiovascular: Stable, Normal peripheral perfusion. Neurological: Normal sensory function, Normal motor function. Assessment Anesthetic outcome No anesthetic complications noted. Adequate pain relief. able to void without difficulty, able to ambulate with assist, tolerating PO intake, no N/V. Review / Management Condition: Stable. Plan Transfer/Discharge: Transfer/Discharge Discharge when meets criteria ( To home ). Normal [facility] Comment on above: Result Comment: Elec tronically Signed By: Kiel Wheeler DO, Jim Kessler\.br\Date and Time Signed: 07/25/23 15:46 EDT Auto Diffon 07-24-2023 Basophils/100 WBC (Bld) 1.1 % Normal 0.0-2.0 [facility] Comment on above: Order Comment: Order Added by Discern Expert. Performed By: #### 7 [id number], [id number], [id number], [id number] #### [facility] [address] [place] [address] Basophils/Leukocytes Auto (Bld) [Pure # fraction] 0.0 E9/L Normal 0.0-0.2 [facility] Comment on above: Order Comment: Order Added by Discern Expert. Performed By: #### 7 [id number], [id number], [id number], [id number] #### [facility] [address] [place] [address] Eosinophils/100 WBC (Bld) 2.6 % Normal 0.0-8.0 [facility] Comment on above: Order Comment: Order Added by Discern Expert. Performed By: #### 7 [id number], [id number], [id number], [id number] #### [facility] [address] [place] [address] Eosinophils/Leukocyt es Auto (Bld) [Pure # fraction] 0.1 E9/L Normal 0.0-0.5 [facility] Comment on above: Order Comment: Order Added by Discern Expert. Performed By: #### 7 [id number], [id number], [id number], [id number] #### [facility] [address] [place] [address] Lymphocytes/100 WBC (Bld) 31.2 % Normal 14.0-50.0 [facility] Comment on above: Order Comment: Order Added by Discern Expert. Performed By: #### 7 [id number], [id number], [id number], [id number] #### [facility] [address] [place] [address] Lymphocytes/Leukocyt es Auto (Bld) [Pure # fraction] 0.8 E9/L Low 1.0-4.0 [facility] Comment on above: Order Comment: Order Added by Discern Expert. Performed By: #### 7 [id number], [id number], [id number], [id number] #### [facility] [address] [place] [address] Monocytes/100 WBC (Bld) 9.8 % Normal 4.0-14.0 [facility] Comment on above: Order Comment: Order Added by Discern Expert. Performed By: #### 7 [id number], [id number], [id number], [id number] #### [facility] [address] [place] [address] Monocytes/Leukocytes Auto (Bld) [Pure # fraction] 0.2 E9/L Normal 0.2-1.0 [facility] Comment on above: Order Comment: Order Added by Discern Expert. Performed By: #### 7 [id number], 1587960, 78553445, [id number] #### [facility] [address] [place] [address] Neutrophils/100 WBC (Bld) 55.3 % Normal 36.0-75.0 [facility] Comment on above: Order Comment: Order Added by Discern Expert. Performed By: #### 7 [id number], [id number], [id number], [id number] #### [facility] [address] [place] [address] Neutrophils/Leukocyt es Auto (Bld) [Pure # fraction] 1.4 E9/L Low 2.0-7.5 [facility] Comment on above: Order Comment: Order Added by Discern Expert. Performed By: #### 7 [id number], 0021113, [id number], [id number] #### [facility] [address] [place] [address] CBC w/ Auto Diffon Erythrocyte distribution width (RBC) [Ratio] 13.1 % Normal 10.9-14.2 [facility] Comment on above: Performed By: #### 7 [id number], 7247762, [id number], [id number] #### [facility] [address] [place] [address] Hematocrit (Bld) [Volume fraction] 33.2 % Low 34.0-46.0 [facility] Comment on above: Performed By: #### 7 [id number], 0679411, 29143813, 6667422 #### [facility] [address] [place] [address] Hemoglobin (Bld) [Mass/Vol] 11.2 g/dL Low 12.0-16.0 [facility] Comment on above: Performed By: #### 7 [id number], 1017195, 64903420, 7416119 #### [facility] [address] [place] [address] MCH (RBC) [Entitic mass] 31.2 pg Normal 27.0-34.0 [facility] Comment on above: Performed By: #### 7 [id number], 7891847, 34653137, 6461482 #### [facility] [address] [place] [address] MCHC (RBC) [Mass/Vol] 33.7 g/dL Normal 31.4-36.0 [facility] Comment on above: Performed By: #### 7 [id number], 1663547, 41860031, 5443274 #### [facility] [address] [place] [address] MCV (RBC) [Entitic vol] 92.7 fL Normal 80.0-100.0 [facility] Comment on above: Performed By: #### 7 [id number], 2174650, 46893055, 2197794 #### [facility] [address] [place] [address] Platelet mean volume (Bld) [Entitic vol] 8.5 fL Normal 6.4-10.8 [facility] Comment on above: Performed By: #### 7 [id number], 5113074, 96786848, 2744889 #### [facility] [address] [place] [address] Platelets (Bld) [#/Vol] 81.0 E9/L Low 150.0-500.0 [facility] Comment on above: Result Comment: Plat elet count verified using smear estimate Performed By: #### 7 [id number], 9392034, 16976277, 9406267 #### [facility] [address] [place] [address] RBC (Bld) [#/Vol] 3.6 E12/L Low 4.3-5.9 [facility] Comment on above: Performed By: #### 7 [id number], 0646983, 22769499, 6085189 #### [facility] [address] [place] [address] WBC corrected for nucl RBC Auto (Bld) [#/Vol] 2.5 E9/L Low 4.0-11.0 [facility] Comment on above: Performed By: #### 7 [id number], 7772963, 64917524, 2330113 #### [facility] [address] [place] [address] Consent for Treatmenton 07-13 Consent for Treatment [id number] .[id number] Normal August [facility] Endoscopic Procedure Report - Otheron 07-24-2023 Endoscopic Procedure Report - Other Patient: MISA SANTOS Age: 68 years Sex: Female : 1955 Associated Diagnoses: None Author: Deborah Rashid MD Pre-Procedure Procedure Date 07/24/2023 11:11:00 . Procedure Type: Colonoscopy with removal of tumor(s), polyp(s), or other lesion(s) by snare technique. Procedure provider Performed by Deborah Rashid MD. Current history and physical Documented on chart. Colorectal neoplasm risk assessment High risk Positive Cologard . . Informed Consent After discussing the rationale, risks and benefits, and alternatives to this procedure, the patient provided signed consent for the procedure. Pre-procedure diagnosis: Diagnostic: Positive cologard. Medications Anticoagulant/antipla telet None. ASA Classification: Class II. . Monitoring: See anesthesia record. . Procedure The procedure was performed in the hospital. See anesthesia record for sedation given during procedure. The patient was positioned starting in the left lateral decubitus position. Endoscope type used was an adult-size. The endoscope was lubricated then introduced through the anus. The scope was advanced to the cecum. No difficulties encountered during the procedure. The bowel preparation quality was adequate (see polyps greater than or equal to 6 millimeters). The patient tolerated the procedure well. Time to cecum: 8min Withdrawal time: 50min Last colonoscopy: none Findings 1. 1 cm semipedunculated polyp in the ascending colon, right behind the IC valve, resected completely with cold snare behind the a sent 1 clip was placed to prevent bleeding at the end of the procedure. 2. Large at least 4 cm pedunculated polyp in the sigmoid colon about 20 cm from the anal verge. Attempted Endoloop, but could not place it around the. Injected 4 cc of epi in the polyp and stock. As hot snare was placed around the polyp, part of the polyp was friable and that led to significant bleeding from the polyp. More epi was injected and then I switched to upper gastroscope for better control and the hot snare was placed around the polyp and cut at the middle of the stalk. 4 clips were placed on the stalk afterwards and the heart grasper was used to burn the tip of the stalk to decrease the risk of bleeding. Images Procedure images: Rec1_hd_video_2022_ _[id number].jpg Rec1_hd_video_2022_ _[id number].jpg Rec1_hd_video_ _[id number].jpg Rec1_hd_video_2022_ _[id number].jpg Rec1_hd_video_2022_ _[id number].jpg Rec1_hd_video_2022_ _[id number].jpg Rec1_hd_video_2022_ _[id number].jpg Rec1_hd_video_2022_ _[id number].jpg Rec1_hd_video_2022_ _[id number].jpg Rec1_hd_video_2022_ _T09_24_08_[id number].jpg Rec1_hd_video_2022_ _[id number]_[id number].jpg Rec1_hd_video_3_ _[id number].jpg Rec1_hd_video_2022_ _T09__10_282.jpg Rec_hd_video_2022_ _09__05_550.jpg Rec1_hd_video_2022_ _T09__19_315.jpg . Post-Procedure Complications: none. Estimated blood loss: Minimal. Specimens: sent to pathology. Devices/ implants: none left in place. Impression and Plan 1. 1 cm semipedunculated polyp in the ascending colon, right behind the IC valve, resected completely with cold snare behind the a sent 1 clip was placed to prevent bleeding at the end of the procedure. 2. Large at least 4 cm pedunculated polyp in the sigmoid colon about 20 cm from the anal verge. Attempted Endoloop, but could not place it around the. Injected 4 cc of epi in the polyp and stock. As hot snare was placed around the polyp, part of the polyp was friable and that led to significant bleeding from the polyp. More epi was injected and then I switched to upper gastroscope for better control and the hot snare was placed around the polyp and cut at the middle of the stalk. 4 clips were placed on the stalk afterwards and the heart grasper was used to burn the tip of the stalk to decrease the risk of bleeding. Recommendations: Repeat colonoscopy:: Based on path . Follow-up:: I prefer to admit the patient given the blood loss and she is high risk to rebleed given the size of the stock. We will monitor her in the hospital and consider repeating colonoscopy at the end of the day or tomorrow if she has more bleeding. Otherwise she can follow in GI clinic in 1 to 2 weeks once pathology is available. Diet:: NPO for now. Medication resumption:: (more content not included)... Normal [facility] Comment on above: Result Comment: Elec tronically Signed By: Rachid PATTEN, Deborah Bell\.br\Date and Time Signed: 07/24/23 11:16 EDT Other Comment: Radha landaverde Attachment - attachment storage system not supported [id number] Can be viewed in source systemMissing Attachment - attachment storage system not supported [id number] Can be viewed [facility] Attachment - attachment storage system not supported [id number] Can be viewed in [facility] Attachment - attachment storage system not supported [id number] Can be viewed in [facility] Attachment - attachment storage system not supported [id number] Can be viewed in source [facility]Miss[facility] Attachment - attachment storage system not supported [id number] Can be viewed in [facility] Attachment - attachment storage system not supported [id number] Can be viewed in [facility] Attachment - attachment storage system not supported [id number] Can be viewed in source systemMissb[facility] Attachment - attachment storage system not supported [id number] Can be viewed in source [facility]Missb[facility] Attachment - attachment storage system not supported [id number] Can be viewed in source systemMissb[facility] Attachment - attachment storage system not supported [id number] Can be viewed in source [facility]Missb[facility] Attachment - attachment storage system not supported [id number] Can be viewed in source systemMissb[facility] Attachment - attachment storage system not supported [id number] Can be viewed in source systemMissb[facility] Attachment - attachment storage system not supported [id number] Can be viewed in source systemMissb[facility] Attachment - attachment storage system not supported [id number] Can be viewed in source system Main OR PACU I Recordon 07-13 Main OR PACU I Record PACU Phase I Document Type FT Summary Primary Physician: Deborah Rashid MD Finalized Date/Time: 07/24/23 13:45:42 Pt. Name: MISA SANTOS Esvin/Sex: 1955 Female Med Rec #: [id number] Physician: Deborah Rashid MD Financial #: [id number] Pt. Type: O Room/Bed: N211/ Admit/Disch: 07/24/23 08:54:00 - Institution: Case Times PACU I FT Pre-Care Text: Identifies barriers to communication and implements measures to provide psychological support Develops individualized plan of care, and ensures continuity of care Maintains patient's dignity and privacy, and maintains patient confidentiality Identifies and reports philosophical, cultural, and spiritual beliefs and values Identifies individual values and wishes concerning care Implements aseptic technique, and administers prescribed antibiotic therapy and immunizing agents as ordered Evaluates postoperative tissue perfusion Implements thermoregulation measures, and monitors body temperature Evaluates postoperative respiratory status Evaluates postoperative cardiac status Evaluates postoperative neurological status Assesses pain control, collaborated in initiating patient-controlled analgesia and implements alternative methods of pain control Verifies allergies, administers prescribed medications and solutions, evaluates response to medications Entry 1 In PACU I 07/24/23 11:04:00 Discharge from PACU 07/24/23 11:44:00 I Outcomes Met? Yes Last Modified By: Miroslava Hayes RN 07/24/23 13:45:31 Post-Care Text: The patient demonstrates knowledge of the expected response to the operative or invasive procedure The patient's care is consistent with the individualized perioperative plan of care The patient's right to privacy is maintained The patient's value system, lifestyle, ethnicity, and culture are considered, respected, and incorporated into the perioperative plan of care The patient participates in decisions affecting his or her perioperative plan of care The patient is free from signs and symptoms of infection The patient has wound/tissue perfusion consistent with or improved from baseline levels established preoperatively The patient is at or returning to normothermia at the conclusion of the immediate postoperative period The patient's respiratory function is consistent with or improved from baseline levels established preoperatively The patient's cardiovascular status is consistent with or improved from baseline levels established preoperatively The patient's cardiovascular status is consistent with or improved from baseline levels established preoperatively The patient demonstrates and/or reports adequate pain control throughout the perioperative period The patient received appropriate medication(s), safely administered during the perioperative period Acuity Level PACU I FT Entry 1 Start Time 07/24/23 11:04:00 Stop Time 07/24/23 11:44:00 Acuity Level Acuity Level I Last Modified By: Miroslava Hayes RN 07/24/23 13:45:39 Finalized By: Miroslava Hayes RN Document Signatures Signed By: Miroslava Hayes RN 07/24/23 13:45 Normal [facility] Main OR Preoperative Recordo n 07-24-2023 Main OR Preoperative Record Holding Area Document Type FT Summary Primary Physician: Deborah Rashid MD Finalized Date/Time: 07/24/23 09:39:07 Pt. Name: MISA SANTOS/Sex: 1955 Female Med Rec #: [id number] Physician: Deborah Rashid MD Financial #: [id number] Pt. Type: O Room/Bed: Endo OP 01/11 Admit/Disch: 07/24/23 08:54:00 - Institution: Case Times Holding FT Pre-Care Text: Verifies consent for planned procedure, identifies individual values and wishes concerning care, includes family members in perioperative teaching Secures patient's records' belongings, and valuables, maintains patient's dignity and privacy, and maintains patient confidentiality Entry 1 In Holding 07/24/23 09:25:00 Outcomes Met? Yes Last Modified By: Swetha Agudelo RN 07/24/23 09:37:57 Post-Care Text: The patient participates in decisions affecting his or her perioperative plan of care The patient's right to privacy is maintained Surgery Checklist FT Entry 1 Patient Birthday, ID Band Procedure History and Physical, Identification: Check, Patient Verification: Surgical Consent, With Participation Patient NPO after Midnight: No Date/Time: 07/24/23 05:30:00 Results Reviewed clear yellow results Personal Items: Jewelry Comments: Personal Items ring x1 Limitations: none Comment: Complaints of Pain: No Pain Comment: denies Operative Site n/a Availability Equipment Marking: Verified: Does Patient Smoke No Patient states Yes Comment - Adult - Lucas and postop adult Supervision son- Norbert supervision available Case Cancelled in No Holding Area see comments below for reason Last Modified By: Swetha Agudelo RN 07/24/23 09:39:04 General Comments: Pt. NPO since bowel prep finished at 0530/AW RN Finalized By: Swetha Agudelo RN Document Signatures Signed By: Swetha Agudelo RN 07/24/23 09:39 Normal [facility] Monitor Recordon 07-24-2023 Monitor Record [id number]# 1.00TIFF Normal [facility] Monitor Record [id number]# 1.00TIFF Normal [facility] Outpatient Surgery Discharge Instructionon 07-24-2023 Outpatient Surgery Discharge Instruction [place] [id number] Patient Discharge Instructions PERSON INFORMATION Name: MISA SANTOS Date of : 1955 Current Date: 07/24/2023 11:16:52 PHYSICIANS Admitting Physician: Rachid PATTEN, Deborah Bell Discharge Diagnosis: MISA SANTOS has been given the following list of follow-up instructions, prescriptions, and patient education materials: IF UNABLE TO CONTACT YOUR PHYSICIAN AND YOU FEEL IT IS AN EMERGENCY, GO TO THE NEAREST EMERGENCY ROOM OR CALL 911 I, MISA SANTOS, have received the attached patient education materials/instruction s and have verbalized understanding: May we do a follow up call? Yes No I was present when discharge instructions were given Patient Signature Date Clinican/Nurse Signature Date Follow up: Type Location Start Finish State FM Medicare Wellness Subsequent FT FM [place] 08/29/2023 11:00 AM 08/29/2023 12:00 PM Confirmed FM Open FT [place] 09/16/2023 2:20 PM 09/16/2023 2:40 PM Confirmed ONC Office Visit 30 (FT) FT.ONCOLOGY 09/23/2023 10:00 AM 09/23/2023 10:30 AM Confirmed FM Open FT [place] 09/29/2023 11:20 AM 09/29/2023 11:40 AM Confirmed Pharmacy Information: [facility] [place] You may receive a survey from Rosana Barrios asking you to rate your care experience. Your feedback is important and will help us understand what we do well and how we can improve the quality of care we provide to you, your loved ones and our community. It?s an honor to serve you. Thank you for choosing [facility] HERE ARE THE MEDICATION CHANGES THAT OCCURRED DURING YOUR HOSPITAL STAY Medications to Continue with No Changes Other Medications albuterol (Albuterol (Eqv-ProAir HFA) 90 mcg/inh inhalation aerosol) 2 Puffs Inhalation every 6 hours. Refills: 0. aspirin (aspirin 81 mg oral capsule) 1 Capsules By Mouth every day. atorvastatin (Lipitor 40 mg Tab) 1 Tablets By Mouth every day. Refills: 0. glipiZIDE (glipiZIDE 5 mg Tab) 1 Tablets By Mouth every day. Refills: 3. hydrochlorothiazide-l osartan (hydrochlorothiazide- losartan 25 mg-100 mg Tab) 1 Tablets By Mouth every day. levothyroxine (levothyroxine 75 mcg (0.075 mg) Tab) 1 Tablets By Mouth every day. Refills: 0. metoprolol (Metoprolol tartrate 25 mg Tab) 1 Tablets By Mouth 2 times a day. Misc Prescription ([facility]) one touch test strips. Use to test blood sugars once a day Dx E11.9. Refills: 1. PATIENT EDUCATION INFORMATION Instructions: Medication Leaflets: Normal [facility] Consent for Treatmenton 07-13 Consent for Treatment [id number]#1 .00TIFF [facility] Oncology Progress Noteon Oncology Progress Note Patient: MISA SANTOS Age: 68 years Sex: Female : 1955 Associated Diagnoses: None Author: Eloisa PATTEN, Mariah Davison Chief Complaint Reason for consult: Thrombocytopenia and Leukopenia and lymphopenia. History of Present Illness 04/29/23 initial consult: Misa Marmolejo is a 67-year-old nice lady with a history of hypertension, type 2 diabetes mellitus, hypothyroidism was referred by Dr. Baumann to our hematology clinic at [facility] to be evaluated for thrombocytopenia and lymphopenia. Patient denies any bleeding from any sort and denies any melena or nosebleed or gross hematuria. She denies also any major bruises and denies any fever or chills or drenching night sweats or significant weight loss or change in appetite. She stated she has mild osteoarthritis. She is not known to have rheumatoid arthritis or systemic lupus erythematosus. She denied any gross hematuria or red urine at night. Also denied any changes in her urine color in cold weather. She denies any previous exposure to chemotherapy or weed Killer or fertilizer. Patient is not known to have deficiencies in iron or B12 or folic acid. He takes glyburide levothyroxine metoprolol lisinopril and hydrochlorothiazide. He received Botox injection to her left eye for left eyelid twitching. Review of systems otherwise negative. 05/13/23: Patient is here for 2 weeks follow up for lab results. She denied any fevers or bleeding from any source or current infections or new medications since last visit. He has been feeling fine and she is here for her lab results. Her H flow cytometry came back negative. Revealed normal iron studies, B12, copper, folate levels. Her LDH is normal and she is negative for ILANA and rheumatoid factor.. CBC with differential on 04/29/2023 revealed stable mild lymphopenia and leukopenia but slightly decreased platelet count from 101,000-89,000. Blood flow cytometry and the platelet antibodies were not done. Direct Joe test was negative 06/17/23: She is here for the results of the peripheral blood flow cytometry and the platelet antibodies for held thrombocytopenia and leukopenia. She denies any bleeding from any source and denies any infection or fevers currently. She is scheduled for the colonoscopy on 07/11/2023. Peripheral blood flow cytometry on 05/16/2023 revealed no significant immunophenotypic abnormalities detected. Her platelet antibodies panel came back negative. 06/12/2023 repeated CBC in citrated tube revealed platelet count of 102,000 improved from 89,000. However her white count is still low at 3.0 with absolute neutrophil count of 1.7 low and absolute lymphocyte count of 0.80. Cologuard test came back positive and she is scheduled to have colonoscopy on 07/11/2023 At [facility]. 07/22/23: Bone marrow biopsy done on 06/24/2023 revealed: Final diagnosis: Core biopsy, aspirate clot touch prep and peripheral blood revealed: Normocellular bone marrow with trilineage hematopoiesis and mild megakaryocytic hyperplasia. No evidence of lymphoproliferative disorder or acute leukemia or plasma cell neoplasm or metastatic carcinoma. Peripheral blood showed leukopenia and thrombocytopenia. Normal female Karyotype 46XX MDS FISH: Normal Flit 3, IDH 1, IDH 2, NPM 1: Not detected. Patient the above findings the causes of thrombocytopenia likely peripheral sequestration, drug or toxic effect, autoimmune thrombocytopenia, or infection related thrombocytopenia. Review of Systems Constitutional: Negative, No fever, No chills, No sweats. Eye: For left eye twitching only.. Ear/Nose/Mouth/Throat : Negative. Respiratory: Negative, No shortness of breath, No cough, No hemoptysis. Cardiovascular: Negative, No palpitations, No peripheral edema. Gastrointestinal: No nausea, No vomiting, No diarrhea, No hematemesis Abdominal pain: Lower quadrant. Genitourinary: No dysuria, No hematuria, No change in urine stream. Hematology/Lymphatics : No bruising tendency, No bleeding tendency, No swollen lymph glands. Endocrine: Negative. Immunologic: Negative. Musculoskeletal: Joint pain, No muscle pain. Integumentary: No rash. Neurologic: Alert and oriented X4, Headache, No confusion, No numbness. Psychiatric: Negative. ROS reviewed as documented in chart Health Status Allergies: Allergic Reactions (Selected) Severity Not Documented MetFORMIN- Unknown, dizziness and nausea. Sulfa drugs- Unknown and hives. Current medications: Home Medications (9) Active Albuterol (Eqv-ProAir HFA) 90 mcg/inh inhalation aerosol 2 puff(s), Inhalation, q6hr aspirin 81 mg oral capsule 81 mg = 1 cap(s), Oral, Daily glipiZIDE 5 mg Tab 5 mg = 1 tab(s), Oral, Daily hydrochlorothiazide-l osartan 25 mg-100 mg Tab 1 tab(s), Oral, Daily levothyroxine 75 mcg (0.075 mg) Tab 75 mcg = 1 tab(s), Oral, Daily Lipitor 40 mg Tab 40 mg = 1 tab(s), Oral, Daily Metoprolol tartrate 25 mg Tab 25 mg = 1 tab(s), Oral, BID Misc DME Prescription (more content not included)... Normal [facility] Pathology Noteon 07-09-2023 Pathology Note [id number] .00CD:127 Normal [facility] Pathology Reporton 3 Pathology Report [id number]# 1.00CD:127 Normal [facility] Pathology Reporton 3 Pathology Report [id number]# 1.00CD:[address] [facility] Pathology Report [id number]#1. 00CD:127 Normal [facility] Pathology Report [id number]#1. 00CD:127 Normal [facility] Family Medicine Office/Clini c Noteon 07-02-2023 Family Medicine Office/Clinic Note HPI Staff Jaleel is a 68 year old female presenting for 3 month follow up DM, CKD Acute: needs labs to follow up hypokalemia Do you have any of the following symptoms? Foot Exam: Due Eye Exam: Done with Dr. Garcia Last A1C: Hgb A1C %: 7 % High (03/17/23 11:30:00) Statin: none Pt here for a 3 month f/u. She states that things have been going well for her. Pt does have some drainage she said with an audible wheeze. Pt does not need any refills today History of Present Illness Misa Santos is a 68-year-old female who presents today for a follow-up evaluation. The patient has been experiencing blepharospasm. She states it has been going on for a while. She has been receiving a Botox injection for it. She reports that her blood glucose has been fluctuating. She has normal blood glucose levels before but has been uncontrolled since the . She does not take a statin for her cholesterol. The patient was already seen by her translator/interpreter and is scheduled for a colonoscopy on 07/24/2023. She had a bone marrow biopsy last 06/24/2023. Review of Systems PHQ Score Initial Depression Screen Score: 0 Physical Exam Vitals & Measurements HR: 92(Peripheral) RR: 8 BP: 136/86 SpO2: 95% HT: 59 in HT: 150 cm WT: 112.8 kg WT: 248.16 lb BMI: 50.13 General: alert, no acute distress ENMT: oral mucosa moist, no pharyngeal erythema or exudate, left eye is spasming Cardiovascular: regular rate and rhythm, normal peripheral perfusion Respiratory: Lungs CTA, respirations non labored Extremities: no deformity, no trauma Neurological: oriented x 4, LOC appropriate for age, CN II-XII intact, motor strength equal & normal bilaterally, speech normal Assessment/Plan 1. Controlled type 2 diabetes mellitus without complication, without long-term current use of insulin (E11.9: Type 2 diabetes mellitus without complications) We will reorder an A1c today, a cholesterol, microalbumin, urine protein creatinine ratio. We will start Lipitor and then we will see her back in 3 months. 2. Hypokalemia (E87.6: Hypokalemia) We will recheck that today. 3. Stage 3a chronic kidney disease (CKD) (N18.31: Chronic kidney disease, stage 3a) We will recheck that today. 4. BMI 50.0-59.9, adult (Z68.43: Body mass index [BMI] 50.0-59.9, adult) BMI education given. 5. Thrombocytopenia (D69.6: Thrombocytopenia, unspecified) The patient just had a bone marrow biopsy. We will be getting results momentarily. 6. Restrictive lung disease (J98.4: Other disorders of lung) I do not hear a wheeze today, but we will add an inhaler to help with the patient. 7. Positive colorectal cancer screening using Cologuard test (R19.5: Other fecal abnormalities) Patient is getting a colonoscopy on 07/24/2023. We will see the patient back in 3 months. ATTESTATION: Portions of this record may have been created with voice recognition artificial intelligence software, specifically [employer], [employer] and or [employer]. Substitutions may have occurred due to the inherent limitations of voice recognition and artificial intelligence software. Documentation services were performed after patient or guardian consented to allow [employer] to record this visit. NICO commissioning specialist and provider reviewed before signing. NICO: Almita Garcia. Follow-up No qualifying data available Problem List/Past Medical History Ongoing Allergic rhinitis Anal fissure Breast cancer screening Colon cancer screening Controlled type 2 diabetes mellitus without complication, without long-term current use of insulin Hypertension Hypokalemia Hypothyroid Lymphopenia Pericapsulitis of shoulder Positive colorectal cancer screening using Cologuard test Restrictive lung disease Rotator cuff tendonitis Stage 3a chronic kidney disease (CKD) Thrombocytopenia Total bilirubin, elevated Tremor, essential Historical No qualifying data Procedure/Surgical History Bone marrow biopsy (06/24/2023), Carpal tunnel release, section, AWA BSO - Total abdominal hysterectomy and bilateral salpingo-oophorectomy . Medications Albuterol (Eqv-ProAir HFA) 90 mcg/inh inhalation aerosol, 2 puff(s), Inhalation, q6hr aspirin 81 mg oral capsule, 81 mg= 1 cap(s), Oral, Daily glipiZIDE 5 mg Tab, 5 mg= 1 tab(s), Oral, Daily, 3 refills hydrochlorothiazide-l osartan 25 mg-100 mg Tab, 1 tab(s), Oral, Daily levothyroxine 75 mcg (0.075 mg) Tab, 75 mcg= 1 tab(s), Oral, Daily Lipitor 40 mg Tab, 40 mg= 1 tab(s), Oral, Daily Metoprolol tartrate 25 mg Tab, 25 mg= 1 tab(s), Oral, BID Misc DME Prescription, See Instructions NuLYTELY Latimer oral powder for reconstitution, See Instructions Allergies metFORMIN (Nausea, Dizziness, Unknown) sulfa drugs (Hives, Unknown) Social History Alcohol Tobacco Never (less than 100 in lifetime) Tobacco Use:. Never Smokeless Tobacco Use:. Household tobacco concerns: No., 06/30/2023 Fa (more content not included)... Normal [facility] Comment on above: Result Comment: Elec tronically Signed By: Willian Barrios MD\.br\Date and Time Signed: 07/02/23 09:33 EDT\.br\Electronically Co-Signed By: Almita Garcia\Date and Time Co-Signed: 06/30/23 14:28 EDT Pathology Reporton Pathology Report [id number]# 1.00CD:127 Normal [facility] [id number] 07-01-2023 HbA1c (Bld) [Mass fraction] 7.0 % High <=5.9 [facility] Comment on above: Performed By: #### 7 [id number], [id number] #### [facility] [address] [place] [address] Ambulatory Visit Summaryon 0 06-30-2023 Ambulatory Visit Summary MISA SANTOS :1955 Visit Date:06/30/2023 Ambulatory Visit Instructions Your Diagnosis Controlled type 2 diabetes mellitus without complication, without long-term current use of insulin Hypokalemia Stage 3a chronic kidney disease (CKD) BMI 50.0-59.9, adult Thrombocytopenia Restrictive lung disease Positive colorectal cancer screening using Cologuard test Your Care Team Attending Physician - Willian Barrios MD Primary Care Physician - Willian Barrios MD. This Is Your Medications List albuterol (Albuterol (Eqv-ProAir HFA) 90 mcg/inh inhalation aerosol) atorvastatin (Lipitor 40 mg Tab) Contact prescribing physician if questions or concerns Misc Prescription (Misc DME Prescription) aspirin (aspirin 81 mg oral capsule) glipiZIDE (glipiZIDE 5 mg Tab) hydrochlorothiazide-l osartan (hydrochlorothiazide- losartan 25 mg-100 mg Tab) levothyroxine (levothyroxine 75 mcg (0.075 mg) Tab) metoprolol (Metoprolol tartrate 25 mg Tab) polyethylene glycol 3350 with electrolytes (NuLYTELY Latimer oral powder for reconstitution) Procedures Performed Bone marrow biopsy (06/24/2023), Carpal tunnel release, section, AWA BSO - Total abdominal hysterectomy and bilateral salpingo-oophorectomy . Discharge Vitals Heart Rate (Peripheral) 92 Respiratory Rate 8 Blood Pressure 136/86 Height 150 cm Height 59 in Weight 112.8 kg Weight 248.16 lb BMI 50.13 What to do next Scheduled Follow-Up Appointments Friday 9:30 AM EDT With: Where: [facility] 2022 10:00 AM EDT With: Where: [facility] Surgical Services Friday 11:00 AM EST With: Where: [facility] Invalid Interpretation Code [address] [place] [address]- \.br\ Friday 11:20 AM EST \.br\ With: Denis PATTEN, Willian Weiner\.br\ Where: [facility] Auto Diffon 06-30-2023 Basophils/100 WBC (Bld) 0.9 % Normal 0.0-2.0 [facility] Comment on above: Order Comment: Order added by Discern Expert. Performed By: #### 7 [id number], [id number] #### [facility] [address] [place] [address] Basophils/Leukocytes Auto (Bld) [Pure # fraction] 0.0 E9/L Normal 0.0-0.2 [facility] Comment on above: Order Comment: Order added by Discern Expert. Performed By: #### 7 [id number], [id number] #### [facility] [address] [place] [address] Eosinophils/100 WBC (Bld) 3.9 % Normal 0.0-8.0 [facility] Comment on above: Order Comment: Order added by Discern Expert. Performed By: #### 7 [id number], [id number], [id number] #### [facility] [address] [place] [address] Eosinophils/Leukocyt es Auto (Bld) [Pure # fraction] 0.1 E9/L Normal 0.0-0.5 [facility] Comment on above: Order Comment: Order added by Discern Expert. Performed By: #### 7 [id number], [id number], [id number], [id number] #### [facility] [address] [place] [address] Lymphocytes/100 WBC (Bld) 28.2 % Normal 14.0-50.0 [facility] Comment on above: Order Comment: Order added by Discern Expert. Performed By: #### 7 [id number], [id number], [id number], [id number] #### [facility] [address] [place] [address] Lymphocytes/Leukocyt es Auto (Bld) [Pure # fraction] 0.7 E9/L Low 1.0-4.0 [facility] Comment on above: Order Comment: Order added by Discern Expert. Performed By: #### 7 [id number], [id number], [id number], [id number] #### [facility] [address] [place] [address] Monocytes/100 WBC (Bld) 9.1 % Normal 4.0-14.0 [facility] Comment on above: Order Comment: Order added by Discern Expert. Performed By: #### 7 [id number], [id number], [id number], [id number] #### [facility] [address] [place] [address] Monocytes/Leukocytes Auto (Bld) [Pure # fraction] 0.2 E9/L Normal 0.2-1.0 [facility] Comment on above: Order Comment: Order added by Discern Expert. Performed By: #### 7 [id number], [id number], [id number], [id number] #### [facility] [address] [place] [address] Neutrophils/100 WBC (Bld) 57.9 % Normal 36.0-75.0 [facility] Comment on above: Order Comment: Order added by Discern Expert. Performed By: #### 7 [id number], [id number], [id number], [id number] #### [facility] [address] [place] [address] Neutrophils/Leukocyt es Auto (Bld) [Pure # fraction] 1.5 E9/L Low 2.0-7.5 [facility] Comment on above: Order Comment: Order added by Discern Expert. Performed By: #### 7 [id number], [id number], [id number], [id number] #### [facility] [address] [place] [address] CBC w/ Auto Diffon Erythrocyte distribution width (RBC) [Ratio] 12.8 % Normal 10.9-14.2 [facility] Comment on above: Performed By: #### 7 [id number], [id number], [id number], [id number] #### [facility] [address] [place] [address] Hematocrit (Bld) [Volume fraction] 36.4 % Normal 34.0-46.0 [facility] Comment on above: Performed By: #### 7 [id number], [id number], [id number], [id number] #### [facility] [facility] [address] [place] [address] Hemoglobin (Bld) [Mass/Vol] 12.3 g/dL Normal 12.0-16.0 [facility] Comment on above: Performed By: #### 7 [id number], [id number], 13527824, [id number] #### [facility] [address] [place] [address] MCH (RBC) [Entitic mass] 31.4 pg Normal 27.0-34.0 [facility] Comment on above: Performed By: #### 7 [id number], 3684387, 02727420, 6494898 #### [facility] [address] [place] [address] MCHC (RBC) [Mass/Vol] 33.7 g/dL Normal 31.4-36.0 [facility] Comment on above: Performed By: #### 7 [id number], 1381633, 21902437, 4705518 #### [facility] [address] [place] [address] MCV (RBC) [Entitic vol] 93.2 fL Normal 80.0-100.0 [facility] Comment on above: Performed By: #### 7 [id number], 7921128, 12373235, 6497270 #### [facility] [address] [place] [address] Platelet mean volume (Bld) [Entitic vol] 9.6 fL Normal 6.4-10.8 [facility] Comment on above: Performed By: #### 7 [id number], 1587434, 53245130, 7204118 #### [facility] [address] [place] [address] Platelets (Bld) [#/Vol] 79.0 E9/L Low 150.0-500.0 [facility] Comment on above: Performed By: #### 7 [id number], 1786668, 20443362, 1022234 #### [facility] [address] [place] [address] RBC (Bld) [#/Vol] 3.9 E12/L Low 4.3-5.9 [facility] Comment on above: Performed By: #### 7 [id number], 6064338, 84528815, 2655347 #### [facility] [address] [id number] WBC corrected for nucl RBC Auto (Bld) [#/Vol] 2.7 E9/L Low 4.0-11.0 [facility] Comment on above: Performed By: #### 7 [id number], 5235420, 59730960, 2718528 #### [facility] [address] [place] [address] CHEMISTRYOrdered By: SYSTEM SYSTEM on 06-30-2023 Albumin [Mass/Vol] 3.6 g/dL Normal 3.3 - 5.0 gm/dL [facility] Albumin/Globulin [Mass ratio] 1.1 {ratio} Normal 1.1 - 2.2 [facility] ALP [Catalytic activity/Vol] 66 [iU]/d Normal 21 - 98 Int._Unit/L [facility] ALT No additional P-5'-P [Catalytic activity/Vol] 21 [iU]/d Normal 6 - 46 Int._Unit/L [facility] Anion gap [Moles/Vol] 11 mmol/L Normal 6 - 16 mEq/L [facility] AST [Catalytic activity/Vol] 37 [iU]/d Normal 5 - 43 Int._Unit/L [facility] Bilirubin [Mass/Vol] 0.8 mg/dL Normal 0.0 - 1.1 mg/dL [facility] Calcium [Mass/Vol] 9.5 mg/dL Normal 8.9 - 11.1 mg/dL [facility] Chloride [Moles/Vol] 103 mmol/L Normal 101 - 111 mmol/ L [facility] Cholesterol [Mass/Vol] 140 mg/dL Normal 120 - 200 mg/dL [facility] Cholesterol in HDL [Mass/Vol] 35 mg/dL Invalid Interpretation Code [facility] Cholesterol in LDL [Mass/Vol] 83 mg/dL Normal <=129mg/dL [facility] Cholesterol in VLDL [Mass/Vol] 20 mg/dL Normal 7 - 40 mg/dL [facility] CO2 [Moles/Vol] 26 mmol/L Normal 21 - 31 mmol/L [facility] Creatinine [Mass/Vol] 1.2 mg/dL Normal 0.5 - 1.3 mg/dL [facility] GFR/1.73 sq M.predicted among non-blacks MDRD (S/P/Bld) [Vol rate/Area] 49 mL/min/1.73 m2 Low >=59mL/min/1.73 m2 [facility] Chem S Globulin (S) [Mass/Vol] 3.3 g/dL Normal 1.4 - 4.0 gm/dL [facility] Glucose [Mass/Vol] 289 mg/dL High 55 - 199 mg/dL [facility] Potassium [Moles/Vol] 4.1 mmol/L Normal 3.5 - 5.3 mmol/L [facility] Protein [Mass/Vol] 6.9 g/dL Normal 6.0 - 7.8 gm/dL [facility] Sodium [Moles/Vol] 136 mmol/L Normal 135 - 145 mmol/L [facility] Triglyceride [Mass/Vol] 102 mg/dL Normal <=149mg/dL [facility] Urea nitrogen [Mass/Vol] 19 mg/dL Normal 5 - 21 mg/dL [facility] Remisol Urea nitrogen/Creatinine [Mass ratio] 16 mg/mg Normal 10 - 20 [facility] Remisol CHEMISTRYOrdered By: Gabriela Kincaid on 06-30-2023 Albumin DL <= 20 mg/L (U) [Mass/Vol] microgram/mL Normal 0.0 - 19.0 mcg/mL [facility] Remisol Albumin Elph (U) [Mass fraction] mg/dL Invalid Interpretation Code [facility] Remisol Creatinine (U) [Mass/Vol] 82.1 mg/dL Invalid Interpretation Code [facility] Remisol U Prot/Creat Ratio [facility] Invalid Interpretation Code 0.00 - 200.00 [facility] Remisol CHEMISTRYOrdered By: Jamison meadows on 06-30-2023 HbA1c (Bld) [Mass fraction] 7.0 % High <=5.9% [facility] ChemAutoSS CMPon 06-30-2023 Albumin [Mass/Vol] 3.6 g/dL Normal 3.3-5.0 [facility] Comment on above: Performed By: #### 7 [id number], 1084125, 00930091, 8315603 #### [facility] [address] [place] [address] Albumin/Globulin (S) [Mass conc ratio] 1.1 Normal 1.1-2.2 [facility] Comment on above: Performed By: #### 7 [id number], 4908617, 87816877, 0660396 #### [facility] [address] [place] [address] ALP [Catalytic activity/Vol] 66 Int._Unit/L Normal 21-98 [facility] Comment on above: Performed By: #### 7 [id number], 9766837, 97883573, 1967432 #### [facility] [address] [place] [address] ALT No additional P-5'-P [Catalytic activity/Vol] 21 Int._Unit/L Normal 6-46 [facility] Comment on above: Performed By: #### 7 60502969, 2621847, 07862840, 7207904 #### [facility] [address] [place] [address] Anion gap [Moles/Vol] 11 mmol/L Normal 6-16 [facility] Comment on above: Performed By: #### 7 45560518, 7653065, 24503737, 3393888 #### [facility] [address] [place] [address] AST [Catalytic activity/Vol] 37 Int._Unit/L Normal 5-43 [facility] Comment on above: Performed By: #### 7 06161267, 5860967, 87127758, 9076540 #### [facility] [address] [place] [address] Bilirubin [Mass/Vol] 0.8 mg/dL Normal 0.0-1.[address] [facility] Comment on above: Performed By: #### 7 07247362, 6932057, 93840995, 8899815 #### [facility] [address] [place] [address] Calcium [Mass/Vol] 9.5 mg/dL Normal 8.9-11.1 [facility] Comment on above: Performed By: #### 7 30981751, 4403706, 05079653, 1737385 #### [facility] [address] [place] [address] Chloride [Moles/Vol] 103 mmol/L Normal 101-[address] [facility] Comment on above: Performed By: #### 7 59091415, 1465203, 70235504, 6645771 #### [facility] [address] [place] [address] CO2 [Moles/Vol] 26 mmol/L Normal 21-31 [facility] Comment on above: Performed By: #### 7 62288115, 4809873, 29238351, 1207822 #### [facility] [address] [place] [address] Creatinine [Mass/Vol] 1.2 mg/dL Normal 0.5-1.3 [facility] Comment on above: Performed By: #### 7 34641809, 1680698, 02532377, 7442681 #### [facility] [address] [place] [address] Globulin (S) [Mass/Vol] 3.3 g/dL Normal 1.4-4.0 [facility] Comment on above: Performed By: #### 7 46811765, 7150502, 07727866, 6523315 #### [facility] [address] [place] [address] Glucose [Mass/Vol] 289 mg/dL High 55-199 [facility] Comment on above: Result Comment: If t his glucose result represents a fasting glucose, interpretation should refer to the following reference range: 55-99 mg/dL Performed By: #### 7 63095582, 9098630, 88938688, 6144658 #### [facility] [address] [place] [address] Potassium [Moles/Vol] 4.1 mmol/L Normal 3.5-5.3 [facility] Comment on above: Performed By: #### 7 73340076, 2057313, 94490621, 4640800 #### [facility] [address] [place] [address] Protein [Mass/Vol] 6.9 g/dL Normal 6.0-7.8 [facility] Comment on above: Performed By: #### 7 00344434, 9594596, 86159100, 4242232 #### [facility] [address] [place] [address] Sodium [Moles/Vol] 136 mmol/L Normal 135-145 [facility] Comment on above: Performed By: #### 7 98323989, 9313678, 95649568, 1212570 #### [facility] [address] [place] [address] Urea nitrogen [Mass/Vol] 19 mg/dL Normal 5-21 [facility] Comment on above: Performed By: #### 7 11188107, 1473659, 93732030, 4590617 #### [facility] [address] [place] [address] Urea nitrogen/Creatinine [Mass ratio] 16 No Units Normal 10-20 [facility] Comment on above: Performed By: #### 7 51736946, 9984748, 08837918, 0374919 #### [facility] [address] [place] [address] HEMATOLOGYOrdered By: SYSTEM SYSTEM on 06-30-2023 Basophils/100 WBC (Bld) 0.9 % Normal 0.0 - 2.0 % [facility] Basophils/Leukocytes Auto (Bld) [Pure # fraction] 0.0 E9/L Normal 0.0 - 0.2 E9/L [facility] Eosinophils/100 WBC (Bld) 3.9 % Normal 0.0 - 8.0 % [facility]eAuto[facility] Eosinophils/Leukocyt es Auto (Bld) [Pure # fraction] 0.1 E9/L Normal 0.0 - 0.5 E9/L [facility] Lymphocytes/100 WBC (Bld) 28.2 % Normal 14.0 - 50.0 % [facility]eAuto[facility] Lymphocytes/Leukocyt es Auto (Bld) [Pure # fraction] 0.7 E9/L Low 1.0 - 4.0 E9/L [facility] Monocytes/100 WBC (Bld) 9.1 % Normal 4.0 - 14.0 % [facility] Monocytes/Leukocytes Auto (Bld) [Pure # fraction] 0.2 E9/L Normal 0.2 - 1.0 E9/L [facility] Neutrophils/100 WBC (Bld) 57.9 % Normal 36.0 - 75.0 % [facility] Neutrophils/Leukocyt es Auto (Bld) [Pure # fraction] 1.5 E9/L Low 2.0 - 7.5 E9/L [facility] HEMATOLOGYOrdered By: Jamison Iyer on 06-30-2023 Erythrocyte distribution width (RBC) [Ratio] 12.8 % Normal 10.9 - 14.2 % [facility] Hematocrit (Bld) [Volume fraction] 36.4 % Normal 34.0 - 46.0 % [facility] Hemoglobin (Bld) [Mass/Vol] 12.3 g/dL Normal 12.0 - 16.0 gm/dL [facility] HemeAutoSS MCH (RBC) [Entitic mass] 31.4 pg Normal 27.0 - 34.0 pg [facility] HemeAutoSS MCHC (RBC) [Mass/Vol] 33.7 g/dL Normal 31.4 - 36.0 gm/dL [facility] HemeAutoSS MCV (RBC) [Entitic vol] 93.2 fL Normal 80.0 - 100.0 fL [facility]eAuto[facility] Platelet mean volume (Bld) [Entitic vol] 9.6 fL Normal 6.4 - 10.8 fL [facility]eAutoSS Platelets (Bld) [#/Vol] 79.0 E9/L Low 150.0 - 500.0 E9/L [facility] HemeAutoSS RBC (Bld) [#/Vol] 3.9 E12/L Low 4.3 - 5.9 E12/L [facility] HemeAutoSS WBC corrected for nucl RBC Auto (Bld) [#/Vol] 2.7 E9/L Low 4.0 - 11.0 E9/L [facility] HemeAutoSS Lipid Panelon 06-30-2023 Cholesterol [Mass/Vol] 140 mg/dL Normal 120-200 [facility] Comment on above: Performed By: #### 7 [id number], 2273813, 72661083, 7315236 #### [facility] [address] [place] [address] Cholesterol in HDL [Mass/Vol] 35 mg/dL Invalid Interpretation Code [facility] Comment on above: Result Comment: HDL > or equal to 60 mg/dL: Low cardiovascular risk HDL < 40 mg/dL : High cardiovascular risk Performed By: #### 7 06960550, 3667572, 59914574, 6669599 #### [facility] [address] [place] [address] Cholesterol in LDL [Mass/Vol] 83 mg/dL Normal <=129 [facility] Comment on above: Performed By: #### 7 63109502, 1739997, 44504744, 0890297 #### [facility] [address] [place] [address] Cholesterol in VLDL [Mass/Vol] 20 mg/dL Normal 7-40 [facility] Comment on above: Performed By: #### 7 00547362, 7902124, 56921049, 9028499 #### [facility] [address] [place] [address] Triglyceride [Mass/Vol] 102 mg/dL Normal <=149 [facility] Comment on above: Performed By: #### 7 31909703, 1130157, 74653502, 7665825 #### [facility] [address] [place] [address] Pathology Reporton Pathology Report [id number]# 1.00CD:127 Normal [facility] Pathology Report [id number]#1 .00CD:127 Normal [facility] Pathology Report [id number]#1 .00CD:127 Normal [facility] Pathology Report [id number]#1 .00CD:127 Normal [facility] Pathology Report [id number]#1 .00CD:127 Normal [facility] Comment on above: Other Comment: cleri moses U Microalbon 06-30-2023 Albumin DL <= 20 mg/L (U) [Mass/Vol] mg/dL Normal 0.0-19.0 [facility] Comment on above: Performed By: #### 1 [id number], 87010018 #### [facility] [address] [place] [address] U Protein/Creat Ratioon 06-13 Creatinine (U) [Mass/Vol] 82.1 mg/dL Invalid Interpretation Code [facility] Comment on above: Result Comment: The reference range and other method performance specifications have not been established for this test; results should be integrated into the clinical context for interpretation. Performed By: #### 1 [id number], [id number] ####[facility] [address] [place] [address] U Prot/Creat Ratio [facility] Invalid Interpretation Code .00-200.00 [facility] Comment on above: Performed By: #### 1 [id number], 41554159 ####[facility] [address] [place] [address] Albumin Elph (U) [Mass fraction] <6.0 Invalid Interpretation Code [facility] Comment on above: Result Comment: The reference range and other method performance specifications have not been established for this test; results should be integrated into the clinical context for interpretation. Performed By: #### 1 [id number], 89868847 ####[facility] [address] [place] [address] eGFRon 06-30-2023 GFR/1.73 sq M.predicted among non-blacks MDRD (S/P/Bld) [Vol rate/Area] 49 mL/min/1.73 m2 Low >=59 [facility] Comment on above: Order Comment: Order added by Discern Expert. Result Comment: Polysomnography Tech annabella kidney disease could be indicated at eGFR's of less than 60 mL/min/1.73m2. Kidney failure is indicated at less than 15 mL/min/1.73m2. Performed By: #### 7 [id number], 5222081, 80404206, 6782469 #### [facility] [address] [place] [address] Discharge Instructionson Discharge Instructions [id number]# 1.00CD:127 Normal [facility] Preoperative Documentson Preoperative Documents [id number]# 1.00CD:127 Normal [facility] Auto Diffon 06-24-2023 Basophils/100 WBC (Bld) 1.5 % Normal 0.0-2.0 [facility] Comment on above: Order Comment: Order Added by Discern Expert. Performed By: #### 2 115206, 5402221 #### [facility] [address] [place] [address] Basophils/Leukocytes Auto (Bld) [Pure # fraction] 0.0 E9/L Normal 0.0-0.2 [facility] Comment on above: Order Comment: Order Added by Discern Expert. Performed By: #### 2 303599, 8563063 #### [facility] [address] [place] [address] Eosinophils/100 WBC (Bld) 3.9 % Normal 0.0-8.0 [facility] Comment on above: Order Comment: Order Added by Discern Expert. Performed By: #### 2 248651, 9880509 #### [facility] [address] [place] [address] Eosinophils/Leukocyt es Auto (Bld) [Pure # fraction] 0.1 E9/L Normal 0.0-0.5 [facility] Comment on above: Order Comment: Order Added by Discern Expert. Performed By: #### 2 780739, 7999296 #### [facility] [address] [place] [address] Lymphocytes/100 WBC (Bld) 31.3 % Normal 14.0-50.0 [facility] Comment on above: Order Comment: Order Added by Discern Expert. Performed By: #### 2 676463, 0299687 #### [facility] [address] [place] [address] Lymphocytes/Leukocyt es Auto (Bld) [Pure # fraction] 0.8 E9/L Low 1.0-4.0 [facility] Comment on above: Order Comment: Order Added by Discern Expert. Performed By: #### 2 335688, 0232477 #### [facility] [address] [place] [address] Monocytes/100 WBC (Bld) 10.5 % Normal 4.0-14.0 [facility] Comment on above: Order Comment: Order Added by Discern Expert. Performed By: #### 2 041395, 0719787 #### [facility] [address] [place] [address] Monocytes/Leukocytes Auto (Bld) [Pure # fraction] 0.3 E9/L Normal 0.2-1.0 [facility] Comment on above: Order Comment: Order Added by Discern Expert. Performed By: #### 2 861151, 5831383 #### [facility] [address] [place] [address] Neutrophils/100 WBC (Bld) 52.8 % Normal 36.0-75.0 [facility] Comment on above: Order Comment: Order Added by Discern Expert. Performed By: #### 2 961965, 1236721 #### [facility] [address] [place] [address] Neutrophils/Leukocyt es Auto (Bld) [Pure # fraction] 1.3 E9/L Low 2.0-7.5 [facility] Comment on above: Order Comment: Order Added by Discern Expert. Performed By: #### 2 699525, 9985906 #### [facility] [address] [place] [address] CBC w/ Auto Diffon 3 Erythrocyte distribution width (RBC) [Ratio] 12.6 % Normal 10.9-14.2 [facility] Comment on above: Performed By: #### 1 [id number] #### [facility] [address] [place] [address] Hematocrit (Bld) [Volume fraction] 35.1 % Normal 34.0-46.0 [facility] Comment on above: Performed By: #### 1 [id number] #### [facility] [address] [place] [address] Hemoglobin (Bld) [Mass/Vol] 12.0 g/dL Normal 12.0-16.0 [facility] Comment on above: Performed By: #### 1 [id number] #### [facility] [address] [place] [address] MCH (RBC) [Entitic mass] 31.6 pg Normal 27.0-34.0 [facility] Comment on above: Performed By: #### 1 [id number] #### [facility] [address] [place] [address] MCHC (RBC) [Mass/Vol] 34.1 g/dL Normal 31.4-36.0 [facility] Comment on above: Performed By: #### 1 [id number] #### [facility] [address] [place] [address] MCV (RBC) [Entitic vol] 92.7 fL Normal 80.0-100.0 [facility] Comment on above: Performed By: #### 1 [id number] #### [facility] [address] [place] [address] Platelet mean volume (Bld) [Entitic vol] 8.4 fL Normal 6.4-10.8 [facility] Comment on above: Performed By: #### 1 [id number] #### [facility] [address] [place] [address] Platelets (Bld) [#/Vol] 83.0 E9/L Low 150.0-500.0 [facility] Comment on above: Result Comment: Slid e reviewed by TLP. Platelet count verified using smear estimate. Performed By: #### 1 [id number] #### [facility] [address] [place] [address] RBC (Bld) [#/Vol] 3.8 E12/L Low 4.3-5.9 [facility] Comment on above: Performed By: #### 1 [id number] #### [facility] [address] [place] [address] WBC corrected for nucl RBC Auto (Bld) [#/Vol] 2.5 E9/L Low 4.0-11.0 [facility] Comment on above: Performed By: #### 1 [id number] #### [facility] [address] [place] [address] Bone Marrow Biopsyon 06-13 CT Bone Marrow Biopsy Exam Date/Time: 06/24/2023 10:10 EDT Reason for Exam: D69.6;Blood disorder Report IMPRESSION: CT-GUIDED BONE MARROW ASPIRATION/BIOPSY. CLINICAL HISTORY: Blood disorder, D69.6 COMPARISON: None available. PROCEDURE: Informed consent was obtained. Sterile technique, local lidocaine anesthesia and CT guidance were used to place an 11-gauge needle into the right iliac body from a posterior approach. Approximately 8 mL of bone marrow aspirate and a core sample were obtained of the usual fashion. The patient tolerated the procedure without evidence of immediate complication. She was monitored in the [facility] for approximately one half hour without event, and discharged home in stable condition with usual instructions. All CT scans at this facility use dose modulation, iterative reconstruction, and/or weight based dosing when appropriate to reduce radiation dose to as low as reasonably achievable. Ordering Provider: Mariah Amin FINAL REPORT Dictated: 06/24/2023 12:59 pm Grupo Moreau MD Signed (Electronic Signature): 06/24/2023 12:59 pm Signed by: Grupo Moreau MD Transcribed by: OLIVE Technologist: Hilda MARIE [facility] Consent for Treatmenton 06-13 Consent for Treatment [id number]#1 .00CD:[address] [facility] HEMATOLOGYOrdered By: SYSTEM SYSTEM on 06-24-2023 Basophils/100 WBC (Bld) 1.5 % Normal 0.0 - 2.0 % [facility] Basophils/Leukocytes Auto (Bld) [Pure # fraction] 0.0 E9/L Normal 0.0 - 0.2 E9/L [facility] Eosinophils/100 WBC (Bld) 3.9 % Normal 0.0 - 8.0 % [facility] Eosinophils/Leukocyt es Auto (Bld) [Pure # fraction] 0.1 E9/L Normal 0.0 - 0.5 E9/L [facility] Lymphocytes/100 WBC (Bld) 31.3 % Normal 14.0 - 50.0 % [facility] Lymphocytes/Leukocyt es Auto (Bld) [Pure # fraction] 0.8 E9/L Low 1.0 - 4.0 E9/L [facility] Monocytes/100 WBC (Bld) 10.5 % Normal 4.0 - 14.0 % [facility] HemeAutoSS Monocytes/Leukocytes Auto (Bld) [Pure # fraction] 0.3 E9/L Normal 0.2 - 1.0 E9/L [facility] HemeAutoSS Neutrophils/100 WBC (Bld) 52.8 % Normal 36.0 - 75.0 % [facility] HemeAutoSS Neutrophils/Leukocyt es Auto (Bld) [Pure # fraction] 1.3 E9/L Low 2.0 - 7.5 E9/L [facility] HemeAutoSS HEMATOLOGYOrdered By: Paige Call on 06-24-2023 Erythrocyte distribution width (RBC) [Ratio] 12.6 % Normal 10.9 - 14.2 % [facility] HemeAutoSS Hematocrit (Bld) [Volume fraction] 35.1 % Normal 34.0 - 46.0 % [facility] HemeAutoSS Hemoglobin (Bld) [Mass/Vol] 12.0 g/dL Normal 12.0 - 16.0 gm/dL [facility] HemeAutoSS MCH (RBC) [Entitic mass] 31.6 pg Normal 27.0 - 34.0 pg [facility] HemeAutoSS MCHC (RBC) [Mass/Vol] 34.1 g/dL Normal 31.4 - 36.0 gm/dL [facility]eAuto[facility] MCV (RBC) [Entitic vol] 92.7 fL Normal 80.0 - 100.0 fL [facility] HemeAutoSS Platelet mean volume (Bld) [Entitic vol] 8.4 fL Normal 6.4 - 10.8 fL [facility] HemeAutoSS Platelets (Bld) [#/Vol] 83.0 E9/L Low 150.0 - 500.0 E9/L [facility] Comment on above: Result Comment: Slid e reviewed by TLP. Platelet count verified using smear estimate. RBC (Bld) [#/Vol] 3.8 E12/L Low 4.3 - 5.9 E12/L [facility] HemeAutoSS WBC corrected for nucl RBC Auto (Bld) [#/Vol] 2.5 E9/L Low 4.0 - 11.0 E9/L [facility] Main OR PACU II Recordon Main OR PACU II Record PACU Phase II Document Type FT Summary Primary Physician: NONE, XXXX Finalized Date/Time: 06/24/23 10:42:22 Pt. Name: MISA SANTOS Esvin/Sex: 1955 Female Med Rec #: [id number] Physician: Mariah Amin MD Financial #: [id number] Pt. Type: O Room/Bed: / Admit/Disch: 06/24/23 08:42:13 - Institution: Case Times PACU II FT Pre-Care Text: Identifies barriers to communication and implements measures to provide psychological support and determines knowledge level Develops individualized plan of care, and ensures continuity of care Maintains patient's dignity and privacy, and maintains patient confidentiality Identifies and reports philosophical, cultural, and spiritual beliefs and values Identifies individual values and wishes concerning care administers prescribed antibiotic therapy and immunizing agents as ordered, Evaluates postoperative tissue perfusion Implements thermoregulation measures, and monitors body temperature Evaluates postoperative respiratory status Evaluates postoperative cardiac status Evaluates postoperative neurological status Assesses pain control, collaborated in initiating patient-controlled analgesia and implements alternative methods of pain control Verifies allergies, administers prescribed medications and solutions, evaluates response to medications Entry 1 In PACU II 06/24/23 10:10:00 Discharge from PACU 06/24/23 10:30:00 II Outcomes Met? Yes Last Modified By: Tiffanie MATOS, SANANLarisa 06/24/23 10:42:21 Post-Care Text: The patient demonstrates knowledge of the expected response to the operative or invasive procedure The patient's care is consistent with the individualized perioperative plan of care The patient's right to privacy is maintained The patient's value system, lifestyle, ethnicity, and culture are considered, respected, and incorporated into the perioperative plan of care The patient participates in decisions affecting his or her perioperative plan of care. The patient is free from signs and symptoms of infection The patient has wound/tissue perfusion consistent with or improved from baseline levels established preoperatively The patient is at or returning to normothermia at the conclusion of the immediate postoperative period The patient's respiratory function is consistent with or improved from baseline levels established preoperatively The patient's cardiovascular status is consistent with or improved from baseline levels established preoperatively The patient's neurological status is consistent with or improved from baseline levels established preoperatively The patient demonstrates and/or reports adequate pain control throughout the perioperative period The patient received appropriate medication(s), safely administered during the perioperative period Finalized By: TREVOR Moreno RN, Amber R Document Signatures Signed By: TREVOR Moreno RN, Amber R 06/24/23 10:42 Normal [facility] RAD - Consent to Procedureon 06-24-2023 RAD - Consent to Procedure [id number]# 1.00CD:127 Normal [facility] Outside Labson 06-19-2023 Outside Labs [id number]# 1.00CD:127 Normal [facility] Consent for Treatmenton Consent for Treatment [id number]# 1.00CD:127 Normal [facility] Oncology Progress Noteon Oncology Progress Note Patient: MISA SANTOS Age: 68 years Sex: Female : 1955 Associated Diagnoses: None Author: Eloisa PATTEN, Mariah Davison Chief Complaint Reason for consult: Thrombocytopenia and Leukopenia and lymphopenia. History of Present Illness 04/29/23 initial consult: Misa Marmolejo is a 67-year-old nice lady with a history of hypertension, type 2 diabetes mellitus, hypothyroidism was referred by Dr. Baumann to our hematology clinic at [facility] to be evaluated for thrombocytopenia and lymphopenia. Patient denies any bleeding from any sort and denies any melena or nosebleed or gross hematuria. She denies also any major bruises and denies any fever or chills or drenching night sweats or significant weight loss or change in appetite. She stated she has mild osteoarthritis. She is not known to have rheumatoid arthritis or systemic lupus erythematosus. She denied any gross hematuria or red urine at night. Also denied any changes in her urine color in cold weather. She denies any previous exposure to chemotherapy or weed Killer or fertilizer. Patient is not known to have deficiencies in iron or B12 or folic acid. He takes glyburide levothyroxine metoprolol lisinopril and hydrochlorothiazide. He received Botox injection to her left eye for left eyelid twitching. Review of systems otherwise negative. 05/13/23: Patient is here for 2 weeks follow up for lab results. She denied any fevers or bleeding from any source or current infections or new medications since last visit. He has been feeling fine and she is here for her lab results. Her H flow cytometry came back negative. Revealed normal iron studies, B12, copper, folate levels. Her LDH is normal and she is negative for ILANA and rheumatoid factor.. CBC with differential on 04/29/2023 revealed stable mild lymphopenia and leukopenia but slightly decreased platelet count from 101,000-89,000. Blood flow cytometry and the platelet antibodies were not done. Direct Joe test was negative 06/17/23: She is here for the results of the peripheral blood flow cytometry and the platelet antibodies for held thrombocytopenia and leukopenia. She denies any bleeding from any source and denies any infection or fevers currently. She is scheduled for the colonoscopy on 07/11/2023. Peripheral blood flow cytometry on 05/16/2023 revealed no significant immunophenotypic abnormalities detected. Her platelet antibodies panel came back negative. 06/12/2023 repeated CBC in citrated tube revealed platelet count of 102,000 improved from 89,000. However her white count is still low at 3.0 with absolute neutrophil count of 1.7 low and absolute lymphocyte count of 0.80. Cologuard test came back positive and she is scheduled to have colonoscopy on 07/11/2023 At [facility]. Review of Systems Constitutional: Negative, No fever, No chills, No sweats. Eye: For left eye twitching only.. Ear/Nose/Mouth/Throat : Negative. Respiratory: Negative, No shortness of breath, No cough, No hemoptysis. Cardiovascular: Negative, No palpitations, No peripheral edema. Gastrointestinal: No nausea, No vomiting, No diarrhea, No hematemesis Abdominal pain: Lower quadrant. Genitourinary: No dysuria, No hematuria, No change in urine stream. Hematology/Lymphatics : No bruising tendency, No bleeding tendency, No swollen lymph glands. Endocrine: Negative. Immunologic: Negative. Musculoskeletal: Joint pain, No muscle pain. Integumentary: No rash. Neurologic: Alert and oriented X4, Headache, No confusion, No numbness. Psychiatric: Negative. ROS reviewed as documented in chart Health Status Allergies: Allergic Reactions (Selected) Severity Not Documented MetFORMIN- Unknown. Sulfa drugs- Unknown. Current medications: Home Medications (7) Active aspirin 81 mg oral capsule 81 mg = 1 cap(s), Oral, Daily glipiZIDE 5 mg Tab 5 mg = 1 tab(s), Oral, Daily hydrochlorothiazide-l osartan 25 mg-100 mg Tab 1 tab(s), Oral, Daily levothyroxine 75 mcg (0.075 mg) Tab 75 mcg = 1 tab(s), Oral, Daily Metoprolol tartrate 25 mg Tab 25 mg = 1 tab(s), Oral, BID Misc DME Prescription See Instructions NuLYTELY Latimer oral powder for reconstitution See Instructions , No qualifying data available Problem list: All Problems Pericapsulitis of shoulder / SNOMED CT 4639121307 / Confirmed Allergic rhinitis / SNOMED CT 058048264 / Confirmed Anal fissure / SNOMED CT 72859564 / Confirmed Stage 3a chronic kidney disease (CKD) / SNOMED CT 0726639503 / Confirmed Tremor, essential / SNOMED CT 6446749751 / Confirmed Hypertension / SNOMED CT 8008022171 / Confirmed Hypokalemia / SNOMED CT 21750019 / Confirmed Hypothyroid / SNOMED CT 41843834 / Confirmed Rotator cuff tendonitis / SNOMED CT 5915037028 / Confirmed Lymphopenia / SNOMED CT 42364973 / Confirmed Colon cancer screening / SNOMED CT 554988667 / Confirmed Breast cancer screening / SNOMED CT 815617098 / Confirmed Restrictive lung disease / SNOMED CT 46739894 (more content not included)... Normal [facility] Physician Orderon 06-17-2023 Physician Order [id number]# 1.00CD:127 Normal [facility] Auto Diffon 06-12-2023 Basophils/100 WBC (Bld) 1.1 % Normal 0.0-2.0 [facility] Comment on above: Order Comment: Order Added by Discern Expert. Performed By: #### 7 [id number], [id number], [id number], [id number] #### [facility] [address] [place] [address] Basophils/Leukocytes Auto (Bld) [Pure # fraction] 0.0 E9/L Normal 0.0-0.2 [facility] Comment on above: Order Comment: Order Added by Discern Expert. Performed By: #### 7 [id number], [id number], [id number], 6349619 #### [facility] [address] [place] [address] Eosinophils/100 WBC (Bld) 4.1 % Normal 0.0-8.0 [facility] Comment on above: Order Comment: Order Added by Discern Expert. Performed By: #### 7 [id number], 0944590, 91266773, 4755448 #### [facility] [address] [place] [address] Eosinophils/Leukocyt es Auto (Bld) [Pure # fraction] 0.1 E9/L Normal 0.0-0.5 [facility] Comment on above: Order Comment: Order Added by Areli Expert. Performed By: #### 7 [id number], 0932915, 73708425, 8666815 #### [facility] [address] [place] [address] Lymphocytes/100 WBC (Bld) 27.6 % Normal 14.0-50.0 [facility] Comment on above: Order Comment: Order Added by Areli Expert. Performed By: #### 7 [id number], [id number], 66635399, 0632451 #### [facility] [address] [place] [address] Lymphocytes/Leukocyt es Auto (Bld) [Pure # fraction] 0.8 E9/L Low 1.0-4.0 [facility] Comment on above: Order Comment: Order Added by Discern Expert. Performed By: #### 7 [id number], 6390602, [id number], 8687765 #### [facility] [address] [place] [address] Monocytes/100 WBC (Bld) 10.4 % Normal 4.0-14.0 [facility] Comment on above: Order Comment: Order Added by Discern Expert. Performed By: #### 7 [id number], [id number], 70246892, 2764970 #### [facility] [address] [place] [address] Monocytes/Leukocytes Auto (Bld) [Pure # fraction] 0.3 E9/L Normal 0.2-1.0 [facility] Comment on above: Order Comment: Order Added by Discern Expert. Performed By: #### 7 [id number], 0799264, 44480640, 0023521 #### [facility] [address] [place] [address] Neutrophils/100 WBC (Bld) 56.8 % Normal 36.0-75.0 [facility] Comment on above: Order Comment: Order Added by Discern Expert. Performed By: #### 7 [id number], 3726337, 08647324, 3960634 #### [facility] [address] [place] [address] Neutrophils/Leukocyt es Auto (Bld) [Pure # fraction] 1.7 E9/L Low 2.0-7.5 [facility] Comment on above: Order Comment: Order Added by Discern Expert. Performed By: #### 7 [id number], 7029911, 77616710, 2052406 #### [facility] [address] [place] [address] CBC w/ Auto Diffon 3 Erythrocyte distribution width (RBC) [Ratio] 12.8 % Normal 10.9-14.2 [facility] Comment on above: Performed By: #### 7 [id number], 7090407, 63049405, 2836684 #### [facility] [address] [place] [address] Hematocrit (Bld) [Volume fraction] 36.7 % Normal 34.0-46.0 [facility] Comment on above: Performed By: #### 7 [id number], 7030742, 66483792, 5634309 #### [facility] [address] [place] [address] Hemoglobin (Bld) [Mass/Vol] 12.2 g/dL Normal 12.0-16.0 [facility] Comment on above: Performed By: #### 7 [id number], 3348561, 80425998, 6125646 #### [facility] [address] [place] [address] MCH (RBC) [Entitic mass] 31.3 pg Normal 27.0-34.0 [facility] Comment on above: Performed By: #### 7 [id number], 4789132, 15116059, 2057852 #### [facility] [address] [place] [address]58 MCHC (RBC) [Mass/Vol] 33.3 g/dL Normal 31.4-36.0 [facility] Comment on above: Performed By: #### 7 [id number], 4319484, 74156126, 5760010 #### [facility] [address] [place] [address]343 MCV (RBC) [Entitic vol] 93.8 fL Normal 80.0-100.0 [facility] Comment on above: Performed By: #### 7 [id number], 8491749, 55532700, 0725825 #### [facility] [address] [place] [address] Platelet mean volume (Bld) [Entitic vol] 9.1 fL Normal 6.4-10.8 [facility] Comment on above: Performed By: #### 7 [id number], 5275426, 36383216, 6118473 #### [facility] [address] [place] [address] Platelets (Bld) [#/Vol] 102.0 E9/L Low 150.0-500.0 [facility] Comment on above: Performed By: #### 7 29428805, 5826481, 91573400, 0536266 #### [facility] [address] [place] [address] 41185 RBC (Bld) [#/Vol] 3.9 E12/L Low 4.3-5.9 [facility] Comment on above: Performed By: #### 7 16001980, 3306599, 69776486, 7097247 #### [facility] [address] [place] [address] WBC corrected for nucl RBC Auto (Bld) [#/Vol] 3.0 E9/L Low 4.0-11.0 [facility] Comment on above: Performed By: #### 7 45948157, 1438415, 73571551, 6265339 #### [facility] [address] [place] [address] Consent for Treatmenton 05-15 Consent for Treatment [id number] .[id number]:127 Normal [facility] HEMATOLOGYOrdered By: SYSTEM SYSTEM on 06-12-2023 Basophils/100 WBC (Bld) 1.1 % Normal 0.0 - 2.0 % [facility] Basophils/Leukocytes Auto (Bld) [Pure # fraction] 0.0 E9/L Normal 0.0 - 0.2 E9/L [facility] Eosinophils/100 WBC (Bld) 4.1 % Normal 0.0 - 8.0 % [facility] Eosinophils/Leukocyt es Auto (Bld) [Pure # fraction] 0.1 E9/L Normal 0.0 - 0.5 E9/L [facility] Lymphocytes/100 WBC (Bld) 27.6 % Normal 14.0 - 50.0 % [facility] Lymphocytes/Leukocyt es Auto (Bld) [Pure # fraction] 0.8 E9/L Low 1.0 - 4.0 E9/L [facility] Monocytes/100 WBC (Bld) 10.4 % Normal 4.0 - 14.0 % [facility] Monocytes/Leukocytes Auto (Bld) [Pure # fraction] 0.3 E9/L Normal 0.2 - 1.0 E9/L [facility] Neutrophils/100 WBC (Bld) 56.8 % Normal 36.0 - 75.0 % [facility] Neutrophils/Leukocyt es Auto (Bld) [Pure # fraction] 1.7 E9/L Low 2.0 - 7.5 E9/L [facility] HEMATOLOGYOrdered By: Remington Gibbs on 06-12-2023 Erythrocyte distribution width (RBC) [Ratio] 12.8 % Normal 10.9 - 14.2 % [facility] Hematocrit (Bld) [Volume fraction] 36.7 % Normal 34.0 - 46.0 % [facility] Hemoglobin (Bld) [Mass/Vol] 12.2 g/dL Normal 12.0 - 16.0 gm/dL [facility] MCH (RBC) [Entitic mass] 31.3 pg Normal 27.0 - 34.0 pg [facility] MCHC (RBC) [Mass/Vol] 33.3 g/dL Normal 31.4 - 36.0 gm/dL [facility] MCV (RBC) [Entitic vol] 93.8 fL Normal 80.0 - 100.0 fL [facility] Platelet mean volume (Bld) [Entitic vol] 9.1 fL Normal 6.4 - 10.8 fL [facility] Platelets (Bld) [#/Vol] 102.0 E9/L Low 150.0 - 500.0 E9/L [facility] RBC (Bld) [#/Vol] 3.9 E12/L Low 4.3 - 5.9 E12/L [facility] WBC corrected for nucl RBC Auto (Bld) [#/Vol] 3.0 E9/L Low 4.0 - 11.0 E9/L [facility] Consent for Procedure/Surger yon 06-05-2023 Consent for Procedure/Surgery [id number] .00CD:127 Normal [facility] Ambulatory Visit Summaryon 0 06-04-2023 Ambulatory Visit Summary MISA SANTOS :1955 Visit Date:06/04/2023 Ambulatory Visit Instructions Your Diagnosis Colon cancer screening Positive colorectal cancer screening using Cologuard test Your Care Team Attending Physician - Rachid PATTEN, Deborah Bell Primary Care Physician - Willian Barrios MD This Is Your Medications List Misc Prescription (Misc DME Prescription) aspirin (aspirin 81 mg oral capsule) glipiZIDE (glipiZIDE 5 mg Tab) hydrochlorothiazide-l osartan (hydrochlorothiazide- losartan 25 mg-100 mg Tab) levothyroxine (levothyroxine 75 mcg (0.075 mg) Tab) metoprolol (Metoprolol tartrate 25 mg Tab) polyethylene glycol 3350 with electrolytes (NuLYTELY Latimer oral powder for reconstitution) Procedures Performed Carpal tunnel release, section, AWA BSO - Total abdominal hysterectomy and bilateral salpingo-oophorectomy . Discharge Vitals Heart Rate (Peripheral) 76 Respiratory Rate 16 Blood Pressure 122/70 Height 150.8 cm Height 59 in Weight 114 kg Weight 250.8 lb BMI 50.13 What to do next Scheduled Follow-Up Appointments Friday 10:30 AM EDT With: Where: Oncology Friday 11:20 AM EDT With: Willian Barrios MD Where: [facility] Invalid Interpretation Code [address] [place] [address]- \.br\ Friday 2:20 PM EST \.br\ With: Willian Barrios MD\.br\ Where: [facility] Gastroenterology Office/Clin ic Noteon 06-04-2023 Gastroenterology Office/Clinic Note Chief Complaint positive Cologuard HPI Staff Patient is a 68 year old female who was referred by Denis for positive Cologuard testing. Denies any family history of colon cancer/polyps. Denies abdominal pain, constipation, diarrhea. Denies any previous EGD/Colonoscopy, imaging or labs. Was supposed to have one with Dr. Rainey, but he passed before she could see him. States she will have bloody stools possibly 1-2 times a year. History of Present Illness Doing well, asymptomatic, reported that she was supposed to have a colonoscopy with Dr. Rucker, but it was canceled when he No family history of colon cancer, no changes in bowel habit 1-3 a day Review of Systems PHQ Score Initial Depression Screen Score: 0 Physical Exam Vitals & Measurements HR: 76(Peripheral) RR: 16 BP: 122/70 HT: 59 in HT: 150.8 cm WT: 114 kg WT: 250.8 lb BMI: 50.13 General: alert, no acute distress HEENT: atraumatic normocephalic Cardiovascular: regular rate and rhythm, normal peripheral perfusion Respiratory: Lungs CTA, respirations non labored Extremities: no deformity, no trauma Abdomen: Benign, soft, nontender nondistended Assessment/Plan 1. Colon cancer screening (Z12.11: Encounter for screening for malignant neoplasm of colon) Diagnostic colonoscopy for positive Cologuard 2. Positive colorectal cancer screening using Cologuard test (R19.5: Other fecal abnormalities) Follow-up No qualifying data available Problem List/Past Medical History Ongoing Allergic rhinitis Anal fissure Breast cancer screening Colon cancer screening Controlled type 2 diabetes mellitus without complication, without long-term current use of insulin Hypertension Hypokalemia Hypothyroid Lymphopenia Pericapsulitis of shoulder Restrictive lung disease Rotator cuff tendonitis Stage 3a chronic kidney disease (CKD) Thrombocytopenia Total bilirubin, elevated Tremor, essential Historical No qualifying data Procedure/Surgical History Carpal tunnel release, section, AWA BSO - Total abdominal hysterectomy and bilateral salpingo-oophorectomy . Medications aspirin 81 mg oral capsule, 81 mg= 1 cap(s), Oral, Daily glipiZIDE 5 mg Tab, 5 mg= 1 tab(s), Oral, Daily, 3 refills hydrochlorothiazide-l osartan 25 mg-100 mg Tab, 1 tab(s), Oral, Daily levothyroxine 75 mcg (0.075 mg) Tab, 75 mcg= 1 tab(s), Oral, Daily Metoprolol tartrate 25 mg Tab, 25 mg= 1 tab(s), Oral, BID Misc DME Prescription, See Instructions Allergies metFORMIN (Unknown) sulfa drugs (Unknown) Social History Alcohol Tobacco Never (less than 100 in lifetime) Tobacco Use:. Never Smokeless Tobacco Use:. Household tobacco concerns: No., 06/04/2023 Family History Diabetes mellitus type 2: Father. Heart disease: Mother and Father. Hypertension: Father. Metastatic cancer: Mother. Immunizations Vaccine Date Status influenza virus vaccine, inactivated 07/24/2022 Recorded SARS-CoV-2 (COVID-19) [id number] 07/24/2022 Recorded SARSCoV2 mRNA(xssodxirl-rwro-d shital) vac 01/15/2022 Recorded influenza virus vaccine, inactivated 07/24/2021 Recorded SARS-CoV-2 (COVID-19) mRNA BNT-162b2 vax 07/10/2021 Recorded SARS-CoV-2 (COVID-19) mRNA BNT-162b2 vax 01/02/2021 Recorded SARS-CoV-2 (COVID-19) mRNA BNT-162b2 vax 12/11/2020 Recorded pneumococcal 23-valent vaccine 06/21/2020 Recorded influenza virus vaccine, inactivated 06/21/2020 Recorded influenza virus vaccine, inactivated 07/13/2019 Recorded influenza virus vaccine, inactivated 07/10/2018 Recorded pneumococcal 23-valent vaccine 11/20/2016 Recorded Normal [facility] Comment on above: Result Comment: Elec tronically Signed By: Rachid PATTEN, Debroah Bell\.br\Date and Time Signed: 06/04/23 14:05 EDT Lab Reportson 05-29-2023 Lab Reports [id number] .00CD:127 Normal [facility] Office Visiton 05-29-2023 Follow-up visit [id number] Misa Santos 1955 F Date Provider Department Center 05/29/2023 [id number] DOUGLAS CARD [facility] No family history on file Level of Service:86739 MT OFFICE/OUTPATIENT ESTABLISHED MOD MDM 30-39 MIN Reason for Visit and Comments: Follow-up [885816] - Early follow up Normal [facility] Auto Diffon 05-27-2023 Basophils/100 WBC (Bld) 1.3 % Normal 0.0-2.0 [facility] Comment on above: Order Comment: Order Added by Discern Expert. Performed By: #### 2 [id number], [id number] #### [facility] [address] [place] [address] Basophils/Leukocytes Auto (Bld) [Pure # fraction] 0.0 E9/L Normal 0.0-0.2 [facility] Comment on above: Order Comment: Order Added by Discern Expert. Performed By: #### 2 [id number], 0107901 #### [facility] [address] [place] [address] Eosinophils/100 WBC (Bld) 5.3 % Normal 0.0-8.0 [facility] Comment on above: Order Comment: Order Added by Discern Expert. Performed By: #### 2 450419, 5409239 #### [facility] [address] [place] [address] Eosinophils/Leukocyt es Auto (Bld) [Pure # fraction] 0.2 E9/L Normal 0.0-0.5 [facility] Comment on above: Order Comment: Order Added by Discern Expert. Performed By: #### 2 411127, 8746715 #### [facility] [address] [place] [address] Lymphocytes/100 WBC (Bld) 26.5 % Normal 14.0-50.0 [facility] Comment on above: Order Comment: Order Added by Discern Expert. Performed By: #### 2 895737, 3636975 #### [facility] [address] [place] [address] Lymphocytes/Leukocyt es Auto (Bld) [Pure # fraction] 0.8 E9/L Low 1.0-4.0 [facility] Comment on above: Order Comment: Order Added by Discern Expert. Performed By: #### 2 757775, 5574413 #### [facility] [address] [place] [address] Monocytes/100 WBC (Bld) 10.9 % Normal 4.0-14.0 [facility] Comment on above: Order Comment: Order Added by Discern Expert. Performed By: #### 2 492317, [id number] #### [facility] [address] [place] [address] Monocytes/Leukocytes Auto (Bld) [Pure # fraction] 0.3 E9/L Normal 0.2-1.0 [facility] Comment on above: Order Comment: Order Added by Discern Expert. Performed By: #### 2 669428, 6529889 #### [facility] [address] [place] [address] Neutrophils/100 WBC (Bld) 56.0 % Normal 36.0-75.0 [facility] Comment on above: Order Comment: Order Added by Discern Expert. Performed By: #### 2 318989, 8155364 #### [facility] [address] [place] [address] Neutrophils/Leukocyt es Auto (Bld) [Pure # fraction] 1.6 E9/L Low 2.0-7.5 [facility] Comment on above: Order Comment: Order Added by Discern Expert. Performed By: #### 2 281541, 3530680 #### [facility] [address] [place] [address] CBC w/ Auto Diffon 3 Erythrocyte distribution width (RBC) [Ratio] 13.0 % Normal 10.9-14.2 [facility] Comment on above: Performed By: #### 2 844256, 4851353 #### [facility] [address] [place] [address] Hematocrit (Bld) [Volume fraction] 32.9 % Low 34.0-46.0 [facility] Comment on above: Performed By: #### 2 220603, 6875218 #### [facility] [address] [place] [address]39 Hemoglobin (Bld) [Mass/Vol] 11.2 g/dL Low 12.0-16.0 [facility] Comment on above: Performed By: #### 2 980976, 2532560 #### [facility] [address] [place] [address] MCH (RBC) [Entitic mass] 31.7 pg Normal 27.0-34.0 [facility] Comment on above: Performed By: #### 2 638887, 6976350 #### [facility] [address] [place] [address] MCHC (RBC) [Mass/Vol] 34.2 g/dL Normal 31.4-36.0 [facility] Comment on above: Performed By: #### 2 [id number], [id number] #### [facility] [address] [place] [address] MCV (RBC) [Entitic vol] 92.7 fL Normal 80.0-100.0 [facility] Comment on above: Performed By: #### 2 [id number], [id number] #### [facility] [address] [place] [address] Platelet mean volume (Bld) [Entitic vol] 8.5 fL Normal 6.4-10.8 [facility] Comment on above: Performed By: #### 2 [id number], [id number] #### [facility] [address] [place] [address] Platelets (Bld) [#/Vol] 99.0 E9/L Low 150.0-500.0 [facility] Comment on above: Result Comment: Mara e reviewed by ANU. Platelet count verified using smear estimate Performed By: #### 2 [id number], [id number] #### [facility] [address] [place] [address] RBC (Bld) [#/Vol] 3.6 E12/L Low 4.3-5.9 [facility] Comment on above: Performed By: #### 2 135148, [id number] #### [facility] [address] [place] [address] WBC corrected for nucl RBC Auto (Bld) [#/Vol] 2.9 E9/L Low 4.0-11.0 [facility] Comment on above: Performed By: #### 2 [id number], [id number] #### [facility] [address] [place], [place] [address] Consent for Treatmenton 05-13 Consent for Treatment [id number]:127 Normal [facility] HEMATOLOGYOrdered By: SYSTEM SYSTEM on 05-27-2023 Basophils/100 WBC (Bld) 1.3 % Normal 0.0 - 2.0 % [facility] Basophils/Leukocytes Auto (Bld) [Pure # fraction] 0.0 E9/L Normal 0.0 - 0.2 E9/L [facility] Eosinophils/100 WBC (Bld) 5.3 % Normal 0.0 - 8.0 % [facility] Eosinophils/Leukocyt es Auto (Bld) [Pure # fraction] 0.2 E9/L Normal 0.0 - 0.5 E9/L [facility] Lymphocytes/100 WBC (Bld) 26.5 % Normal 14.0 - 50.0 % [facility] Lymphocytes/Leukocyt es Auto (Bld) [Pure # fraction] 0.8 E9/L Low 1.0 - 4.0 E9/L [facility] Monocytes/100 WBC (Bld) 10.9 % Normal 4.0 - 14.0 % [facility] Monocytes/Leukocytes Auto (Bld) [Pure # fraction] 0.3 E9/L Normal 0.2 - 1.0 E9/L [facility] Neutrophils/100 WBC (Bld) 56.0 % Normal 36.0 - 75.0 % [facility] Neutrophils/Leukocyt es Auto (Bld) [Pure # fraction] 1.6 E9/L Low 2.0 - 7.5 E9/L [facility] HEMATOLOGYOrdered By: Mera Kincaid on 05-27-2023 Erythrocyte distribution width (RBC) [Ratio] 13.0 % Normal 10.9 - 14.2 % [facility] Hematocrit (Bld) [Volume fraction] 32.9 % Low 34.0 - 46.0 % [facility] Hemoglobin (Bld) [Mass/Vol] 11.2 g/dL Low 12.0 - 16.0 gm/dL [facility] MCH (RBC) [Entitic mass] 31.7 pg Normal 27.0 - 34.0 pg [facility] MCHC (RBC) [Mass/Vol] 34.2 g/dL Normal 31.4 - 36.0 gm/dL [facility] MCV (RBC) [Entitic vol] 92.7 fL Normal 80.0 - 100.0 fL [facility] Platelet mean volume (Bld) [Entitic vol] 8.5 fL Normal 6.4 - 10.8 fL [facility] Platelets (Bld) [#/Vol] 99.0 E9/L Low 150.0 - 500.0 E9/L [facility] Comment on above: Result Comment: Slid e reviewed by ANU. Platelet count verified using smear estimate RBC (Bld) [#/Vol] 3.6 E12/L Low 4.3 - 5.9 E12/L [facility] WBC corrected for nucl RBC Auto (Bld) [#/Vol] 2.9 E9/L Low 4.0 - 11.0 E9/L [facility] Comp panel: Leuk/Lym [id number] n 05-16-2023 Analysis and Gating Strategy Comment Invalid Interpretation Code [facility] Comment on above: Result Comment: 8 co afshin analysis with CD45/SSC gating Technical-Analysis performed at [employer], [facility] [place] , [place] [address] Director: Sonia Capps [facility] Performed By: #### 7 [id number], [id number], [id number], [id number] #### [facility] [address] [place] [address] Annotation comment [Interpretation] Narrative Comment Invalid Interpretation Code [facility] Comment on above: Result Comment: Clin ical correlation is recommended. Performed By: #### 7 [id number], 6615418, 37857062, [id number] #### [facility] [address] [place] [address] Assessment of Leukocytes Comment Invalid Interpretation Code [facility] Comment on above: Result Comment: No m onoclonal B cell population is detected. kappa:lambda ratio 1.9 There is no loss of, or aberrant expression of, the martino T cell antigens to suggest a neoplastic T cell process. CD4:CD8 ratio 9.1 No circulating blasts are detected. There is no immunophenotypic evidence of abnormal myeloid maturation. Analysis of the lymphocyte population shows: B cells 13%, T cells 71%, NK cells 16%. Performed By: #### 7 [id number], 4589061, 12184184, 8295113 #### [facility] [address] [place] [address] CLINICAL INFORMATION:FIND:PT: Comment Invalid Interpretation Code [facility] Comment on above: Result Comment: A re cent CBC was not available for review at the time this report was prepared. Performed By: #### 7 [id number], 7681277, 45518532, [id number] #### [facility] [address] [place] [address] Immunophenotyping study Comment Invalid Interpretation Code [facility] Comment on above: Result Comment: CD2 Normal CD3 Normal CD4 Normal CD5 Normal CD7 Normal CD8 Normal CD10 Normal CD11b Normal CD13 Normal CD14 Normal CD16 Normal CD19 Normal CD20 Normal CD33 Normal CD34 Normal CD38 Normal CD45 Normal CD56 Normal CD57 Normal CD117 Normal HLA-DR Normal KAPPA Normal LAMBDA Normal CD64 Normal Performed By: #### 7 [id number], 6799307, 92159911, 0744298 #### [facility] [address] [place] [address] Laboratory comment Good (Report) Comment Invalid Interpretation Code [facility] Comment on above: Result Comment: Each antibody in this assay was utilized to assess for potential abnormalities of studied cell populations or to characterize identified abnormalities. This test was developed and its performance characteristics determined by [employer]. It has not been cleared or approved by the U.S. Food and Drug Administration. The FDA has determined that such clearance or approval is not necessary. This test is used for clinical purposes. It should not be regarded as investigational or for research. Performed at: -Y [facility] [address] [facility] [place], [place] [id number] [facility] Génesis Scott Performed at: TG [facility] [address] [facility], [place] [id number] [facility] Génesis Scott Performed By: #### 7 [id number], 3381456, 59272282, [id number] #### [facility] [address] [place] [address] Pathologist interpretation (Unsp spec) [Interp] Comment Invalid Interpretation Code [facility] Comment on above: Result Comment: No s ignificant immunophenotypic abnormality detected Performed By: #### 7 [id number], 5067140, 99667785, 5949703 #### [facility] [address] [place] [address] Pathologist name Comment Invalid Interpretation Code [facility] Comment on above: Result Comment: Hoang Enamorado, M.D. Performed By: #### 7 [id number], 0035646, 88666485, [id number] #### [facility] [address] [place] [address] Specimen source Nom (Unsp spec) Comment Invalid Interpretation Code [facility] Comment on above: Result Comment: Mary pheral blood Performed By: #### 7 [id number], 9080264, 27900726, [id number] #### [facility] [address] [place] [address] Viable cells/100 cells (Unsp spec) Comment Invalid Interpretation Code [facility] Comment on above: Result Comment: 86% Performed By: #### 7 12777436, 2384559, 32116358, 8989792 #### [facility] [address] [place] [address] Flow Interp 16 or moreon Flow Interp 16 or more Performed Invalid Interpretation Code [facility] Comment on above: Result Comment: Perf ormed at: -Y [facility] [address] [place], [place] [id number] [facility] Chenn Anjen Performed By: #### 7 [id number], 1122456, 36435670, [id number] #### [facility] [address] [place] [address] Flow Marker, Firston 023 Flow Marker, First Performed Invalid Interpretation Code [facility] Comment on above: Result Comment: Perf ormed at: -Y [facility] [address] [place], [place] [id number] MDPhD Chenn Anjen Performed By: #### 7 83457210, 0833922, 48103582, 8323211 #### [facility] [address] [place] [address] Flow Markers X 15on 05-16-20 23 Flow Markers X 15 Performed Invalid Interpretation Code [facility] Comment on above: Result Comment: Perf ormed at: -Y [facility] [address] [place] [id number] MDPhD Chenn Anjen Performed By: #### 7 [id number], 0990295, 52306029, 5716818 #### [facility] [address] [place] [address] Flow Markers X 3on 3 Flow Markers X 3 Performed Invalid Interpretation Code [facility] Comment on above: Result Comment: Perf ormed at: -Y [facility] [id number] [place], [place] [id number] [facility] Génesis Nathanjen Performed By: #### 7 [id number], 0806543, 27042917, 0502854 #### [facility] [address] [place] [address] Flow Markers X 5on 3 Flow Markers X 5 Performed Invalid Interpretation Code [facility] Comment on above: Result Comment: Perf ormed at: -Y [facility] [id number] [place], [place] [id number] [facility] Génesis Anjen Performed By: #### 7 [id number], 7369378, 80202925, [id number] #### [facility] [address] [place] [address] Lab Miscellaneous-LCon 05-16 Lab Miscellaneous COMMENT Invalid Interpretation Code [facility] Comment on above: Result Comment: Test Ordered: [id number] Platelet Antibody Profile HLA Class 1 Antibody Negative BN Reference Range: Negative IIb/IIIa Antibody Negative BN Reference Range: Negative Ib/IX Antibody Negative BN Reference Range: Negative Ia/IIa Antibody Negative BN Reference Range: Negative Glycoprotein IV Antibody Negative BN Reference Range: Negative Performed at: [facility] [address] [place], [place] [id number] PhD David Alexandra Performed By: #### 1 [id number] #### [facility] [address] [place] [address] Consent for Treatmenton 080 Consent for Treatment [id number]:127 Normal [facility] Consent for Treatment [id number]:127 Normal [facility] HEMATOLOGYOrdered By: Mera Kincaid on 05-13-2023 Platelets (Bld) [#/Vol] 99.0 E9/L Low 150.0 - 500.0 E9/L [facility] Comment on above: Result Comment: Slid e reviewed by ANU. 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 I accompanied Dr. Amin in room. Labs reviewed. Testing options reviewed. Patient denies biopsy at this time. Patient is agreeable to additional lab tests and monitor for now. Treatment Plan: lab draw today, CBC in 2 weeks and 4 weeks Follow-Up Appointment Info/Referrals: 1 month Resources Offered: Patient denies any further questions/concerns at this time. Normal [facility] Comment on above: Result Comment: Elec tronically Signed By: Maria M MATOS, Ana Luisa Shepherd\.aidee\Date and Time Signed: 05/13/23 11:13 EDT Oncology Progress Noteon Oncology Progress Note Patient: MISA SANTOS Age: 67 years Sex: Female : 1955 Associated Diagnoses: None Author: Eloisa PATTEN, Mariah Davison Chief Complaint Reason for consult: Thrombocytopenia and Leukopenia and lymphopenia. History of Present Illness 04/29/23 initial consult: Misa Marmolejo is a 67-year-old nice lady with a history of hypertension, type 2 diabetes mellitus, hypothyroidism was referred by Dr. Baumann to our hematology clinic at [facility] to be evaluated for thrombocytopenia and lymphopenia. Patient denies any bleeding from any sort and denies any melena or nosebleed or gross hematuria. She denies also any major bruises and denies any fever or chills or drenching night sweats or significant weight loss or change in appetite. She stated she has mild osteoarthritis. She is not known to have rheumatoid arthritis or systemic lupus erythematosus. She denied any gross hematuria or red urine at night. Also denied any changes in her urine color in cold weather. She denies any previous exposure to chemotherapy or weed Killer or fertilizer. Patient is not known to have deficiencies in iron or B12 or folic acid. He takes glyburide levothyroxine metoprolol lisinopril and hydrochlorothiazide. He received Botox injection to her left eye for left eyelid twitching. Review of systems otherwise negative. 05/13/23: Patient is here for 2 weeks follow up for lab results. She denied any fevers or bleeding from any source or current infections or new medications since last visit. He has been feeling fine and she is here for her lab results. Her [facility] flow cytometry came back negative. Revealed normal iron studies, B12, copper, folate levels. Her LDH is normal and she is negative for ILANA and rheumatoid factor.. CBC with differential on 04/29/2023 revealed stable mild lymphopenia and leukopenia but slightly decreased platelet count from 101,000-89,000. Blood flow cytometry and the platelet antibodies were not done. Direct Joe test was negative Review of Systems Constitutional: Negative, No fever, No chills, No sweats. Eye: For left eye twitching only.. Ear/Nose/Mouth/Throat : Negative. Respiratory: Negative, No shortness of breath, No cough, No hemoptysis. Cardiovascular: Negative, No palpitations, No peripheral edema. Gastrointestinal: No nausea, No vomiting, No diarrhea, No hematemesis Abdominal pain: Lower quadrant. Genitourinary: No dysuria, No hematuria, No change in urine stream. Hematology/Lymphatics : No bruising tendency, No bleeding tendency, No swollen lymph glands. Endocrine: Negative. Immunologic: Negative. Musculoskeletal: Joint pain, No muscle pain. Integumentary: No rash. Neurologic: Alert and oriented X4, Headache, No confusion, No numbness. Psychiatric: Negative. ROS reviewed as documented in chart Health Status Allergies: Allergic Reactions (Selected) Severity Not Documented MetFORMIN- Unknown. Sulfa drugs- Unknown. Current medications: Home Medications (6) Active aspirin 81 mg oral capsule 81 mg = 1 cap(s), Oral, Daily glipiZIDE 5 mg Tab 5 mg = 1 tab(s), Oral, Daily hydrochlorothiazide-l osartan 25 mg-100 mg Tab 1 tab(s), Oral, Daily levothyroxine 75 mcg (0.075 mg) Tab 75 mcg = 1 tab(s), Oral, Daily Metoprolol tartrate 25 mg Tab 25 mg = 1 tab(s), Oral, BID Misc DME Prescription See Instructions , No qualifying data available Problem list: All Problems Pericapsulitis of shoulder / SNOMED CT 8973221505 / Confirmed Allergic rhinitis / SNOMED CT 761782173 / Confirmed Anal fissure / SNOMED CT 14018473 / Confirmed Stage 3a chronic kidney disease (CKD) / SNOMED CT 8964323736 / Confirmed Tremor, essential / SNOMED CT 0382855063 / Confirmed Hypertension / SNOMED CT 6153013925 / Confirmed Hypokalemia / SNOMED CT 27784381 / Confirmed Hypothyroid / SNOMED CT 81815779 / Confirmed Rotator cuff tendonitis / SNOMED CT 8551511373 / Confirmed Lymphopenia / SNOMED CT 27874339 / Confirmed Colon cancer screening / SNOMED CT 799451531 / Confirmed Breast cancer screening / SNOMED CT 400059118 / Confirmed Restrictive lung disease / SNOMED CT 70143171 / Confirmed Thrombocytopenia / SNOMED CT 741967145 / Confirmed Total bilirubin, elevated / SNOMED CT 4963854158 / Confirmed Controlled type 2 diabetes mellitus without complication, without long-term current use of insulin / ICD-10-CM E11.9 / Confirmed Histories Past Medical History: No active or resolved past medical history items have been selected or recorded. Family History: Hypertension Father Heart disease Father Mother Diabetes mellitus type 2 Father Metastatic cancer Mother Procedure history: section (SNOMED CT 22891996). Comments: 02/07/2023 14:23 EDT - Janice Hassan LPN X1 Carpal tunnel release (SNOMED CT 406251983). AWA BSO - Total abdominal hysterectomy and bilateral salpingo-oophorectomy (SNOMED CT 5766475656). Social History Social & Psychosocial Habits T (more content not included)... Normal [facility] Oncology Progress Note Patient: MISA SANTOS Age: 67 years Sex: Female : 1955 Associated Diagnoses: None Author: Eloisa PATTEN, Mariah Davison Chief Complaint Reason for consult: Thrombocytopenia and Leukopenia and lymphopenia. History of Present Illness Shilo is a 67-year-old nice lady with a history of hypertension, type 2 diabetes mellitus, hypothyroidism was referred by Dr. Baumann to our hematology clinic at [facility] to be evaluated for thrombocytopenia and lymphopenia. Patient denies any bleeding from any sort and denies any melena or nosebleed or gross hematuria. She denies also any major bruises and denies any fever or chills or drenching night sweats or significant weight loss or change in appetite. She stated she has mild osteoarthritis. She is not known to have rheumatoid arthritis or systemic lupus erythematosus. She denied any gross hematuria or red urine at night. Also denied any changes in her urine color in cold weather. She denies any previous exposure to chemotherapy or weed Killer or fertilizer. Patient is not known to have deficiencies in iron or B12 or folic acid. He takes glyburide levothyroxine metoprolol lisinopril and hydrochlorothiazide. He received Botox injection to her left eye for left eyelid twitching. Review of systems otherwise negative. Review of Systems Constitutional: Negative, No fever, No chills, No sweats. Eye: For left eye twitching only.. Ear/Nose/Mouth/Throat : Negative. Respiratory: Negative, No shortness of breath, No cough, No hemoptysis. Cardiovascular: Negative, No palpitations, No peripheral edema. Gastrointestinal: No nausea, No vomiting, No diarrhea, No hematemesis Abdominal pain: Lower quadrant. Genitourinary: No dysuria, No hematuria, No change in urine stream. Hematology/Lymphatics : No bruising tendency, No bleeding tendency, No swollen lymph glands. Endocrine: Negative. Immunologic: Negative. Musculoskeletal: Joint pain, No muscle pain. Integumentary: No rash. Neurologic: Alert and oriented X4, Headache, No confusion, No numbness. Psychiatric: Negative. ROS reviewed as documented in chart Health Status Allergies: Allergic Reactions (Selected) Severity Not Documented MetFORMIN- Unknown. Sulfa drugs- Unknown. Current medications: Home Medications (6) Active aspirin 81 mg oral capsule 81 mg = 1 cap(s), Oral, Daily glipiZIDE 5 mg Tab 5 mg = 1 tab(s), Oral, Daily hydrochlorothiazide-l osartan 25 mg-100 mg Tab 1 tab(s), Oral, Daily levothyroxine 75 mcg (0.075 mg) Tab 75 mcg = 1 tab(s), Oral, Daily Metoprolol tartrate 25 mg Tab 25 mg = 1 tab(s), Oral, BID Misc DME Prescription See Instructions , No qualifying data available Problem list: All Problems Pericapsulitis of shoulder / SNOMED CT 0085323055 / Confirmed Allergic rhinitis / SNOMED CT 803228596 / Confirmed Anal fissure / SNOMED CT 16476627 / Confirmed Stage 3a chronic kidney disease (CKD) / SNOMED CT 2878659093 / Confirmed Tremor, essential / SNOMED CT 2678708245 / Confirmed Hypertension / SNOMED CT 1122665971 / Confirmed Hypokalemia / SNOMED CT 29088966 / Confirmed Hypothyroid / SNOMED CT 29593433 / Confirmed Rotator cuff tendonitis / SNOMED CT 5832676448 / Confirmed Lymphopenia / SNOMED CT 71753492 / Confirmed Colon cancer screening / SNOMED CT 165082492 / Confirmed Breast cancer screening / SNOMED CT 385046368 / Confirmed Restrictive lung disease / SNOMED CT 63485562 / Confirmed Thrombocytopenia / SNOMED CT 994931046 / Confirmed Total bilirubin, elevated / SNOMED CT 2244892956 / Confirmed Controlled type 2 diabetes mellitus without complication, without long-term current use of insulin / ICD-10-CM E11.9 / Confirmed Histories Past Medical History: No active or resolved past medical history items have been selected or recorded. Family History: Hypertension Father Heart disease Father Mother Diabetes mellitus type 2 Father Metastatic cancer Mother Procedure history: section (SNOMED CT 30883622). Comments: 02/07/2023 14:23 EDT - Janice Hassan LPN X1 Carpal tunnel release (SNOMED CT 389349116). AWA BSO - Total abdominal hysterectomy and bilateral salpingo-oophorectomy (SNOMED CT 8972165256). Social History Social & Psychosocial Habits Tobacco 03/31/2023 Tobacco Use: Never (less than 100 in l Smokeless tobacco use: Never . Physical Examination Vital Signs 04/29/2023 10:00 EDT Temperature Oral 36.7 DegC Peripheral Pulse Rate 53 bpm LOW Respiratory Rate 18 br/min Systolic Blood Pressure 122 mmHg Diastolic Blood Pressure 72 mmHg Blood Pressure Location Right arm Mean Arterial Pressure, Cuff 89 mmHg SpO2 96 % General: Alert and oriented, No acute distress. Eye: Pupils are equal, round and reactive to light, Extraocular movements are intact, Normal conjunctiva. HENT: Normocephalic, Decreased hearing. Neck: Supple, Non-tender, No lymphadenopathy, No thyromegaly. Cardiov (more content not included)... Normal [facility] Platelet Counton 05-13-2023 Platelets (Bld) [#/Vol] 99.0 E9/L Low 150.0-500.0 [facility] Comment on above: Order Comment: citra enid tube Result Comment: Slid e reviewed by ANU. Performed By: #### 7 [id number], 5017908, 26035424, [id number] #### [facility] [address] [place] [address] Reference Laboratory Testing Ordered By: Louann Girard on 05-13-2023 Test Code 849663 Invalid Interpretation Code [facility] SendOutsSS Test Name Platelet Antibo Invalid Interpretation Code [facility] Consenton 05-02-2023 Consent [id number] .[id number]:127 Normal [facility] Lab Miscellaneous-LCon 05-02 Lab Miscellaneous COMMENT Invalid Interpretation Code [facility] Comment on above: Order Comment: CPT - 10884, 65231i4, 60688, 94187, 85364n7, 44937 Result Comment: Test Ordered: 907189 Flow Cytometry [facility] Interpretation: Comment ;# Peripheral Blood: No evidence of paroxysmal nocturnal hemoglobinuria ([facility]) DISCLAIMER: REFER TO HARDCOPY OR PDF FOR COMPLETE RESULT. If synopsis provided, clinical decisions should not be based on this interfaced synopsis alone. Performed at: [address] [id number] PhD David Alexandra Performed By: #### 7 [id number], 1685035, 09274633, [id number] #### [facility] [address] [place] [address] ILANA w/Reflex if POSon 2022 Nuclear Ab Ql (S) Negative Invalid Interpretation Code Negative [facility] Comment on above: Result Comment: Perf ormed at: [address] [id number] PhD David Alexandra Performed By: #### 7 [id number], 4875586, 54194058, 9973444 #### [facility] [address] [place] [address] Copper Lvlon 05-01-2023 Copper [Mass/Vol] 118 microgram/dL Invalid Interpretation Code 80-158 [facility] Comment on above: Result Comment: This test was developed and its performance characteristics determined by [employer]. It has not been cleared or approved by the Food and Drug Administration. Detection Limit = 5 Performed at: [address] [id number] MD Christiano Kolb Performed By: #### 7 [id number], [id number], [id number], [id number] #### [facility] [address] [place] [address] RF Quanton 05-01-2023 Rheumatoid factor Qn [IU]/mL Invalid Interpretation Code <14.0 [facility] Comment on above: Result Comment: Perf ormed at: [address] [id number] PhD David Alexandra Performed By: #### 7 [id number], [id number], [id number], [id number] #### [facility] [address] [place] [address] Auto Diffon 04-29-2023 Basophils/100 WBC (Bld) 1.1 % Normal 0.0-2.0 [facility] Comment on above: Order Comment: Order added by Discern Expert. Performed By: #### 7 [id number], 4399376, 47153125, [id number] #### [facility] [address] [place] [address] Basophils/Leukocytes Auto (Bld) [Pure # fraction] 0.0 E9/L Normal 0.0-0.2 [facility] Comment on above: Order Comment: Order added by Discern Expert. Performed By: #### 7 [id number], [id number], [id number], 2981505 #### [facility] [address] [place] [address] Eosinophils/100 WBC (Bld) 4.5 % Normal 0.0-8.0 [facility] Comment on above: Order Comment: Order added by Discern Expert. Performed By: #### 7 [id number], 5861650, 17439724, 4138201 #### [facility] [address] [place] [address] Eosinophils/Leukocyt es Auto (Bld) [Pure # fraction] 0.2 E9/L Normal 0.0-0.5 [facility] Comment on above: Order Comment: Order added by Discern Expert. Performed By: #### 7 [id number], 3679221, 73531203, 6937473 #### [facility] [address] [place] [address] Lymphocytes/100 WBC (Bld) 23.0 % Normal 14.0-50.0 [facility] Comment on above: Order Comment: Order added by Discern Expert. Performed By: #### 7 [id number], 5047691, 03792746, 6909652 #### [facility] [address] [place] [address] Lymphocytes/Leukocyt es Auto (Bld) [Pure # fraction] 0.8 E9/L Low 1.0-4.0 [facility] Comment on above: Order Comment: Order added by Discern Expert. Performed By: #### 7 [id number], 6297523, 89812065, 1309749 #### [facility] [address] [place] [address] Monocytes/100 WBC (Bld) 10.7 % Normal 4.0-14.0 [facility] Comment on above: Order Comment: Order added by Discern Expert. Performed By: #### 7 [id number], 0323169, 22653007, 9700615 #### [facility] [address] [place] [address] Monocytes/Leukocytes Auto (Bld) [Pure # fraction] 0.4 E9/L Normal 0.2-1.0 [facility] Comment on above: Order Comment: Order added by Discern Expert. Performed By: #### 7 [id number], 3301455, 30474954, 1359942 #### [facility] [address] [place] [address] Neutrophils/100 WBC (Bld) 60.7 % Normal 36.0-75.0 [facility] Comment on above: Order Comment: Order added by Discern Expert. Performed By: #### 7 [id number], 1904405, 61675018, 5400224 #### [facility] [address] [place] [address] Neutrophils/Leukocyt es Auto (Bld) [Pure # fraction] 2.1 E9/L Normal 2.0-7.5 [facility] Comment on above: Order Comment: Order added by Discern Expert. Performed By: #### 7 [id number], 5629161, 49896800, 7391053 #### [facility] [address] [place] [address] CBC w/ Auto Diffon 3 Erythrocyte distribution width (RBC) [Ratio] 13.3 % Normal 10.9-14.2 [facility] Comment on above: Performed By: #### 7 50126253, 2170173, 21201384, 1460702 #### [facility] [address] [place] [address] Hematocrit (Bld) [Volume fraction] 36.7 % Normal 34.0-46.0 [facility] Comment on above: Performed By: #### 7 16372222, 6889831, 49977469, 5170983 #### [facility] [address] [place] [address] Hemoglobin (Bld) [Mass/Vol] 12.5 g/dL Normal 12.0-16.0 [facility] Comment on above: Performed By: #### 7 [id number], 9631805, 51349927, 5502271 #### [facility] [address] [place] [address] MCH (RBC) [Entitic mass] 31.2 pg Normal 27.0-34.0 [facility] Comment on above: Performed By: #### 7 23584017, 6131717, 90029472, 0208136 #### [facility] [address] [place] [address] MCHC (RBC) [Mass/Vol] 34.0 g/dL Normal 31.4-36.0 [facility] Comment on above: Performed By: #### 7 [id number], 7706223, 54235537, 3285944 #### [facility] [address] [place] [address] MCV (RBC) [Entitic vol] 91.6 fL Normal 80.0-100.0 [facility] Comment on above: Performed By: #### 7 31400156, 4829984, 74127229, 2048131 #### [facility] [address] [place] [address] Platelet mean volume (Bld) [Entitic vol] 9.0 fL Normal 6.4-10.8 [facility] Comment on above: Performed By: #### 7 28409172, 3792305, 39779627, 8694855 #### [facility] [address] [place] [address] Platelets (Bld) [#/Vol] 89.0 E9/L Low 150.0-500.0 [facility] Comment on above: Result Comment: Slid e reviewed by ts decreased platelets. Performed By: #### 7 [id number], 2798330, 52983771, 4642775 #### [facility] [address] [place] [address] RBC (Bld) [#/Vol] 4.0 E12/L Low 4.3-5.9 [facility] Comment on above: Performed By: #### 7 45297845, 6501327, 65509679, 6762364 #### [facility] [address] [place] [address] WBC corrected for nucl RBC Auto (Bld) [#/Vol] 3.5 E9/L Low 4.0-11.0 [facility] Comment on above: Performed By: #### 7 37984202, 5160489, 06786799, 7270116 #### [facility] [address] [place], [place] [address] CMPon 04-29-2023 Albumin [Mass/Vol] 3.6 g/dL Normal 3.3-5.0 [facility] Comment on above: Performed By: #### 7 26698866, 2562508, 82317823, 9627335 #### [facility] [address] [place] [address] Albumin/Globulin (S) [Mass conc ratio] 1.0 Low 1.1-2.2 [facility] Comment on above: Performed By: #### 7 44644965, 7367726, 10594506, 3328249 #### [facility] [address] [place] [address] ALP [Catalytic activity/Vol] 76 Int._Unit/L Normal 21-98 [facility] Comment on above: Performed By: #### 7 06451493, 7299789, 03428166, 8107359 #### [facility] [address] [place] [address] ALT No additional P-5'-P [Catalytic activity/Vol] 23 Int._Unit/L Normal 6-46 [facility] Comment on above: Performed By: #### 7 92700863, 4873457, 30729239, 9963408 #### [facility] [address] [place] [address] Anion gap [Moles/Vol] 15 mmol/L Normal 6-16 [facility] Comment on above: Performed By: #### 7 63630213, 2516192, 13488844, 2059954 #### [facility] [address] [place] [address] AST [Catalytic activity/Vol] 44 Int._Unit/L High 5-43 [facility] Comment on above: Performed By: #### 7 16394088, 0964827, 24676960, 9025973 #### [facility] [address] [place] [address] Bilirubin [Mass/Vol] 1.2 mg/dL High 0.0-1.[address] [facility] Comment on above: Performed By: #### 7 78602423, 3297093, 40293102, 0565083 #### [facility] [address] [place] [address] Calcium [Mass/Vol] 9.3 mg/dL Normal 8.9-11.1 [facility] Comment on above: Performed By: #### 7 24789979, 2217297, 41611576, 7339834 #### [facility] [address] [place] [address] Chloride [Moles/Vol] 105 mmol/L Normal 101-[address] [facility] Comment on above: Performed By: #### 7 75783058, 7364748, 45000941, 8466534 #### [facility] [address] [place] [address] CO2 [Moles/Vol] 23 mmol/L Normal 21-31 [facility] Comment on above: Performed By: #### 7 44295457, 7065545, 73558054, 5997937 #### [facility] [address] [place] [address] Creatinine [Mass/Vol] 1.1 mg/dL Normal 0.5-1.3 [facility] Comment on above: Performed By: #### 7 57514491, 3395135, 12769414, 3856995 #### [facility] [address] [place] [address] Globulin (S) [Mass/Vol] 3.5 g/dL Normal 1.4-4.0 [facility] Comment on above: Performed By: #### 7 08656054, 2204435, 87653233, 6471227 #### [facility] [address] [place] [address] Glucose [Mass/Vol] 155 mg/dL Normal 55-199 [facility] Comment on above: Result Comment: If t his glucose result represents a fasting glucose, interpretation should refer to the following reference range: 55-99 mg/dL Performed By: #### 7 34316453, 6947506, 21785886, 2191089 #### [facility] [address] [place] [address] Potassium [Moles/Vol] 3.5 mmol/L Normal 3.5-5.3 [facility] Comment on above: Performed By: #### 7 30837686, 5972985, 80096357, 0017942 #### [facility] [address] [place] [address] Protein [Mass/Vol] 7.1 g/dL Normal 6.0-7.8 [facility] Comment on above: Performed By: #### 7 83524614, 1385146, 35207474, 7363665 #### [facility] [address] [place] [address] Sodium [Moles/Vol] 139 mmol/L Normal 135-145 [facility] Comment on above: Performed By: #### 7 31122332, 2122087, 63932697, 4428764 #### [facility] [address] [place] [address] Urea nitrogen [Mass/Vol] 13 mg/dL Normal 5-21 [facility] Comment on above: Performed By: #### 7 41184613, 7050939, 22659392, 3163047 #### [facility] [address] [place] [address] Urea nitrogen/Creatinine [Mass ratio] 12 No Units Normal 10-20 [facility] Comment on above: Performed By: #### 7 54024488, 3098576, 38043238, 2285176 #### [facility] [address] [place] [address] Consent for Treatmenton 04-12 Consent for Treatment [id number] .[id number]:127 Normal [facility] Consent for Treatment [id number] .[id number]:127 Normal [facility] DATon 04-29-2023 LETICIA IgG/C3d Gel Interp Negative Normal [facility] Comment on above: Performed By: #### 2 635893, 3724940 #### [facility] [address] [place] [address] Ferritinon 04-29-2023 Ferritin [Mass/Vol] 45 ng/mL Normal 11-307 [facility] Comment on above: Result Comment: NORM ALS MEN <30 YRS 16-132 ng/mL MEN >30 YRS 8-338 ng/mL WOMEN (PREMEN) 6-104 ng/mL WOMEN (POSTMEN) 12-210 ng/mL Performed By: #### 7 10984956, 6467958, 12239420, 3833555 #### [facility] [address] [place] [address] Folateon 04-29-2023 Folate [Mass/Vol] 12.6 ng/mL Normal >=6.7 [facility] Comment on above: Performed By: #### 7 55495141, 4689095, 84847846, 6329154 #### [facility] [address] [place] [address] Ironon 04-29-2023 Iron [Mass/Vol] 128 microgram/dL Normal 35-153 [facility] Comment on above: Performed By: #### 7 71076224, 3561142, 35604289, 0333657 #### [facility] [address] [place] [address] Iron Saturationon 04-29-2023 Iron binding capacity [Mass/Vol] 391 microgram/dL Normal 250-400 [facility] Comment on above: Performed By: #### 7 73668261, 3427640, 69573591, 0961972 #### [facility] [address] [place] [address] Iron saturation [Mass fraction] 33 % Normal 20-50 [facility] Comment on above: Performed By: #### 7 85281016, 1517263, 53822431, 3097572 #### [facility] [address] [place] [address] LDHon 04-29-2023 LDH [Catalytic activity/Vol] 195 Int._Unit/L Normal 93-218 [facility] Comment on above: Performed By: #### 7 72072250, 8300096, 99522935, 8851807 #### [facility] [address] [place] [address] Lab Miscellaneous-LCon 04-29 Test Code 737925 Invalid Interpretation Code [facility] Comment on above: Order Comment: CPT - 97773, 14239c8, 65591, 53775, 19534w4, 01757 Performed By: #### 7 03128169, 7084258, 72093094, 6730133 #### [facility] [address] [place] [address] Test Name PNH Flow Cytome Invalid Interpretation Code [facility] Comment on above: Order Comment: CPT - 42797, 44923b1, 75157, 38913, 62811k9, 63809 Performed By: #### 7 02951581, 3471005, 75059944, 9505634 #### [facility] [address] [place] [address] Oncology Noteon 04-29-2023 Oncology Note 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 I accompanied Dr. Amin in room. Medical history reviewed with patient. Patient see's N. Jaylin/neurology and gets Botox shots for left eye twitch. Labs reviewed. Patient is on aspirin. Treatment Plan: labs today Follow-Up Appointment Info/Referrals: 2 weeks Resources Offered: Patient provided with my contact information. Patient will go to outpatient lab today - location/hours reviewed. Normal [facility] Comment on above: Result Comment: Elec tronically Signed By: Maria M MATOS, Ana Luisa Shepherd\.aidee\Date and Time Signed: 04/29/23 10:56 EDT Transferrinon 04-29-2023 Transferrin [Mass/Vol] 279 mg/dL Normal 200-370 [facility] Comment on above: Performed By: #### 7 [id number], 2636917, 92808103, 4962961 #### [facility] [address] [place] [address] Vit B12on 04-29-2023 Cobalamin (Vitamin B12) [Mass/Vol] 549 pg/mL Normal 50-1500 [facility] Comment on above: Performed By: #### 7 36624413, 4788592, 22328287, 4472106 #### [facility] [address] [place] [address] eGFRon 04-29-2023 GFR/1.73 sq M.predicted among non-blacks MDRD (S/P/Bld) [Vol rate/Area] 54 mL/min/1.73 m2 Low >=59 [facility] Comment on above: Order Comment: Order added by Discern Expert. Result Comment: Polysomnography Tech annabella kidney disease could be indicated at eGFR's of less than 60 mL/min/1.73m2. Kidney failure is indicated at less than 15 mL/min/1.73m2. Performed By: #### 7 [id number], 4598105, 92340027, 0063420 #### [facility] [address] [place] [address] Ambulatory Visit Summaryon 0 03-31-2023 Ambulatory Visit Summary MISA SANTOS :1955 Visit Date:03/31/2023 Ambulatory Visit Instructions Your Diagnosis Controlled type 2 diabetes mellitus without complication, without long-term current use of insulin Thrombocytopenia Hypokalemia Stage 3a chronic kidney disease (CKD) Lymphopenia BMI 45.0-49.9, adult Class 3 obesity Your Care Team Attending Physician - Willian Barrios MD Primary Care Physician - Willian Barrios MD This Is Your Medications List Misc Prescription (Misc DME Prescription) aspirin (aspirin 81 mg oral capsule) glipiZIDE (glipiZIDE 5 mg Tab) hydrochlorothiazide-l osartan (hydrochlorothiazide- losartan 25 mg-100 mg Tab) levothyroxine (levothyroxine 75 mcg (0.075 mg) Tab) metoprolol (Metoprolol tartrate 25 mg Tab) Procedures Performed Carpal tunnel release, section, AWA BSO - Total abdominal hysterectomy and bilateral salpingo-oophorectomy . Discharge Vitals Heart Rate (Peripheral) 66 Respiratory Rate 20 Blood Pressure 134/78 Height 150.8 cm Height 59 in Weight 110.0 kg Weight 242 lb BMI 48.37 What to do next Scheduled Follow-Up Appointments Friday 11:20 AM EDT With: Willian Barrios MD Where: [facility] Invalid Interpretation Code [address] [place] [address]- \.br\ Friday 2:20 PM EST \.br\ With: Willian Barrios MD\.br\ Where: [facility] Family Medicine Office/Clini c Noteon 03-31-2023 Family Medicine Office/Clinic Note Chief Complaint follow up after labs HPI Staff Follow up go over labs [facility] UTD: Colonoscopy: due needs referral Mammogram: ordered Pelvic/pap: doesn't get them anymore covid: UTD History of Present Illness Misa Santos is a 67-year-old female who presents today for an evaluation of lab results. The patient's white blood cells are low, but not her red blood cells. Her platelets were also low. She denies ever having this issue before. Her kidney function is low. Her potassium is also low. She denies drinking liquor or beer. She does drink Pepsi. Her A1c is 7.0%. She denies any liver or bone marrow issues in the past. She denies any new lumps or bumps. She has a bruise on her left middle finger that has been present for about a month. She is unsure how she bruised it. She also has a bruise on her lip that has been present for years. She does not have any other bruising on her body. Review of Systems PHQ Score Initial Depression Screen Score: 0 Physical Exam Vitals & Measurements HR: 66(Peripheral) RR: 20 BP: 134/78 SpO2: 94% HT: 59 in HT: 150.8 cm WT: 110.0 kg WT: 242 lb BMI: 48.37 General: alert, no acute distress ENMT: oral mucosa moist, no pharyngeal erythema or exudate Cardiovascular: regular rate and rhythm, normal peripheral perfusion Respiratory: Lungs CTA, respirations non labored Extremities: no deformity, no trauma Neurological: oriented x 4, LOC appropriate for age, CN II-XII intact, motor strength equal & normal bilaterally, speech normal Assessment/Plan 1. Controlled type 2 diabetes mellitus without complication, without long-term current use of insulin (E11.9: Type 2 diabetes mellitus without complications) Patient is borderline at this time. Discussed needing to decrease her soda intake. We will continue watching. We will see the patient back in 3 months for a recheck. 2. Thrombocytopenia (D69.6: Thrombocytopenia, unspecified) I am concerned as there are multiple lines down with her blood. We will send to hematology. Discussed possible causes for this and I do not see one at this time. 3. Hypokalemia (E87.6: Hypokalemia) Encouraged the patient to eat a few more bananas and we will recheck at patient's next blood draw. 4. Stage 3a chronic kidney disease (CKD) (N18.31: Chronic kidney disease, stage 3a) Most likely secondary to age or dehydration. We will continue to monitor. 5. Lymphopenia (D72.810: Lymphocytopenia) Again, we will send to hematology. 6. BMI 45.0-49.9, adult (Z68.42: Body mass index [BMI] 45.0-49.9, adult) BMI education given. 7. Class 3 obesity (E66.01: Morbid (severe) obesity due to excess calories) As above. Portions of this record may have been created with voice recognition artificial intelligence software, specifically [employer], [employer] and or [employer]. Substitutions may have occurred due to the inherent limitations of voice recognition and artificial intelligence software. ATTESTATION: Documentation services were performed after patient or guardian consented to allow [employer] to record this visit. NICO commissioning specialist and provider reviewed before signing. NICO: Jennifer Sheets Follow-up No qualifying data available Problem List/Past Medical History Ongoing Allergic rhinitis Anal fissure Breast cancer screening Colon cancer screening Controlled type 2 diabetes mellitus without complication, without long-term current use of insulin Hypertension Hypokalemia Hypothyroid Lymphopenia Pericapsulitis of shoulder Restrictive lung disease Rotator cuff tendonitis Stage 3a chronic kidney disease (CKD) Thrombocytopenia Total bilirubin, elevated Tremor, essential Historical No qualifying data Procedure/Surgical History Carpal tunnel release, section, AWA BSO - Total abdominal hysterectomy and bilateral salpingo-oophorectomy . Medications aspirin 81 mg oral capsule, 81 mg= 1 cap(s), Oral, Daily glipiZIDE 5 mg Tab, 5 mg= 1 tab(s), Oral, Daily hydrochlorothiazide-l osartan 25 mg-100 mg Tab, 1 tab(s), Oral, Daily levothyroxine 75 mcg (0.075 mg) Tab, 75 mcg= 1 tab(s), Oral, Daily Metoprolol tartrate 25 mg Tab, 25 mg= 1 tab(s), Oral, BID Misc DME Prescription, See Instructions Allergies metFORMIN (Unknown) sulfa drugs (Unknown) Social History Tobacco Never (less than 100 in lifetime) Tobacco Use:. Never Smokeless Tobacco Use:., 03/31/2023 Family History Diabetes mellitus type 2: Father. Heart disease: Mother and Father. Hypertension: Father. Metastatic cancer: Mother. Immunizations Vaccine Date Status influenza virus vaccine, inactivated 07/24/2022 Recorded SARS-CoV-2 (COVID-19) [id number] 07/24/2022 Recorded SARSCoV2 mRNA(ainumhhrw-ombf-p seemaros) vac 01/15/2022 Recorded influenza virus vaccine, inactivated 07/24/2021 Recorded SARS-CoV-2 (COVID-19) mRNA BNT-162b2 vax 07/10/2021 Recorded SARS-CoV-2 (COVID-19) mRNA BNT-162b2 vax (more content not included)... [facility] Comment on above: Result Comment: Elec tronically Signed By: Willian Barrios MD\.br\Date and Time Signed: 03/31/23 17:41 EDT\.br\Electronically Co-Signed By: Jennifer Sheets\.br\Date and Time Co-Signed: 03/31/23 14:36 EDT Interdisciplinary Note - Soc ial Workeron 03-25-2023 Interdisciplinary Note - [employer] This SW was consulted due to patient's positive SDOH screen. On the screen, it is noted that during the past year patient has been afraid of her partner or ex-partner. SW made tc to follow up on this, however there was no answer. A message was left for patient requesting she return the call to this SW. SW will remain available. [facility] Formson 03-18-2023 Forms [id number] .[id number]:[address] [facility] Ambulatory Visit Summaryon 0 03-17-2023 Ambulatory Visit Summary MISA SANTOS :1955 Visit Date:03/17/2023 Ambulatory Visit Instructions Your Diagnosis Diabetes mellitus type II, controlled Hypertension Hypothyroid Restrictive lung disease Colon cancer screening Breast cancer screening BMI 45.0-49.9, adult Class 3 obesity Your Care Team Attending Physician - Willian Barrios MD Primary Care Physician - FERNY HUDDLESTON MD This Is Your Medications List Contact prescribing physician if questions or concerns Misc Prescription (Misc DME Prescription) aspirin (aspirin 81 mg oral capsule) glipiZIDE (glipiZIDE 5 mg Tab) hydrochlorothiazide-l osartan (hydrochlorothiazide- losartan 25 mg-100 mg Tab) levothyroxine (levothyroxine 75 mcg (0.075 mg) Tab) metoprolol (Metoprolol tartrate 25 mg Tab) Procedures Performed Carpal tunnel release, section, AWA BSO - Total abdominal hysterectomy and bilateral salpingo-oophorectomy . Discharge Vitals Heart Rate (Peripheral) 68 Respiratory Rate 20 Blood Pressure 136/82 Height 150.8 cm Height 59 in Weight 111.5 kg Weight 245.3 lb BMI 49.03 What to do next Scheduled Follow-Up Appointments Friday 1:00 PM EST With: Where: [facility] Invalid Interpretation Code [address] [place] [address]- \.br\ You Need to Complete the Following\.br\ MA Mamm Screen w/CAD if perf and 3D Michael, 03/17/23, Routine, Order for Future Visit, Transport Mode: Ambulatory, Reason: Screening, No, Diabetes mellitus type II, controlled [facility] Auto Diffon 03-17-2023 Basophils/100 WBC (Bld) 1.2 % Normal 0.0-2.0 [facility] Comment on above: Order Comment: Order Added by Areli Expert. Performed By: #### 2 [id number], [id number] #### [facility] [address] [place] [address] Basophils/Leukocytes Auto (Bld) [Pure # fraction] 0.0 E9/L Normal 0.0-0.2 [facility] Comment on above: Order Comment: Order Added by Areli Expert. Performed By: #### 2 [id number], [id number] #### [facility] [address] [place] [address] Eosinophils/100 WBC (Bld) 3.2 % Normal 0.0-8.0 [facility] Comment on above: Order Comment: Order Added by Discern Expert. Performed By: #### 2 [id number], [id number] #### [facility] [address] [place] [address] Eosinophils/Leukocyt es Auto (Bld) [Pure # fraction] 0.1 E9/L Normal 0.0-0.5 [facility] Comment on above: Order Comment: Order Added by Areli Expert. Performed By: #### 2 [id number], [id number] #### [facility] [address] [place] [address] Lymphocytes/100 WBC (Bld) 28.3 % Normal 14.0-50.0 [facility] Comment on above: Order Comment: Order Added by Discern Expert. Performed By: #### 2 [id number], [id number] #### [facility] [address] [place] [address] Lymphocytes/Leukocyt es Auto (Bld) [Pure # fraction] 0.8 E9/L Low 1.0-4.0 [facility] Comment on above: Order Comment: Order Added by Discern Expert. Performed By: #### 2 [id number], [id number] #### [facility] [address] [place] [address] Monocytes/100 WBC (Bld) 11.1 % Normal 4.0-14.0 [facility] Comment on above: Order Comment: Order Added by Discern Expert. Performed By: #### 2 [id number], [id number] #### [facility] [address] [place] [address] Monocytes/Leukocytes Auto (Bld) [Pure # fraction] 0.3 E9/L Normal 0.2-1.0 [facility] Comment on above: Order Comment: Order Added by Discern Expert. Performed By: #### 2 [id number], [id number] #### [facility] [address] [place] [address] Neutrophils/100 WBC (Bld) 56.2 % Normal 36.0-75.0 [facility] Comment on above: Order Comment: Order Added by Discern Expert. Performed By: #### 2 [id number], [id number] #### [facility] [address] [place] [address] Neutrophils/Leukocyt es Auto (Bld) [Pure # fraction] 1.7 E9/L Low 2.0-7.5 [facility] Comment on above: Order Comment: Order Added by Discern Expert. Performed By: #### 2 [id number], [id number] #### [facility] [address] [place] [address] CBC w/ Auto Diffon 3 Erythrocyte distribution width (RBC) [Ratio] 13.7 % Normal 10.9-14.2 [facility] Comment on above: Performed By: #### 2 [id number], [id number] #### [facility] [address] [place] [address] Hematocrit (Bld) [Volume fraction] 36.8 % Normal 34.0-46.0 [facility] Comment on above: Performed By: #### 2 [id number], [id number] #### [facility] [address] [place] [address] Hemoglobin (Bld) [Mass/Vol] 12.3 g/dL Normal 12.0-16.0 [facility] Comment on above: Performed By: #### 2 [id number], [id number] #### [facility] [address] [place] [address] MCH (RBC) [Entitic mass] 30.5 pg Normal 27.0-34.0 [facility] Comment on above: Performed By: #### 2 [id number], [id number] #### [facility] [address] [place] [address] MCHC (RBC) [Mass/Vol] 33.4 g/dL Normal 31.4-36.0 [facility] Comment on above: Performed By: #### 2 847698, [id number] #### [facility] [address] [place] [address] MCV (RBC) [Entitic vol] 91.5 fL Normal 80.0-100.0 [facility] Comment on above: Performed By: #### 2 [id number], [id number] #### [facility] [address] [place] [address] Platelet mean volume (Bld) [Entitic vol] 8.9 fL Normal 6.4-10.8 [facility] Comment on above: Performed By: #### 2 [id number], [id number] #### [facility] [address] [place] [address] Platelets (Bld) [#/Vol] 101.0 E9/L Low 150.0-500.0 [facility] Comment on above: Performed By: #### 2 [id number], [id number] #### [facility] [address] [place] [address] RBC (Bld) [#/Vol] 4.0 E12/L Low 4.3-5.9 [facility] Comment on above: Performed By: #### 2 721082, [id number] #### [facility] [address] [place] [address] WBC corrected for nucl RBC Auto (Bld) [#/Vol] 3.0 E9/L Low 4.0-11.0 [facility] Comment on above: Performed By: #### 2 553981, [id number] #### [facility] [address] [place] [address] CHEMISTRYOrdered By: SYSTEM SYSTEM on 03-17-2023 Albumin [Mass/Vol] 3.7 g/dL Normal 3.3 - 5.0 gm/dL [facility] Albumin/Globulin [Mass ratio] 1.1 {ratio} Normal 1.1 - 2.2 [facility] ALP [Catalytic activity/Vol] 68 [iU]/d Normal 21 - 98 Int._Unit/L [facility] ALT No additional P-5'-P [Catalytic activity/Vol] 18 [iU]/d Normal 6 - 46 Int._Unit/L [facility] Anion gap [Moles/Vol] 13 mmol/L Normal 6 - 16 mEq/L [facility] AST [Catalytic activity/Vol] 36 [iU]/d Normal 5 - 43 Int._Unit/L [facility] Bilirubin [Mass/Vol] 1.4 mg/dL High 0.0 - 1.1 mg/dL [facility] Calcium [Mass/Vol] 9.1 mg/dL Normal 8.9 - 11.1 mg/dL [facility] Chloride [Moles/Vol] 102 mmol/L Normal 101 - 111 mmol/ L [facility] Cholesterol [Mass/Vol] 156 mg/dL Normal 120 - 200 mg/dL [facility] Cholesterol in HDL [Mass/Vol] 28 mg/dL Invalid Interpretation Code [facility] Cholesterol in LDL [Mass/Vol] 94 mg/dL Normal <=129mg/dL [facility] Cholesterol in VLDL [Mass/Vol] 25 mg/dL Normal 7 - 40 mg/dL [facility] CO2 [Moles/Vol] 25 mmol/L Normal 21 - 31 mmol/L [facility] Creatinine [Mass/Vol] 1.3 mg/dL Normal 0.5 - 1.3 mg/dL [facility] GFR/1.73 sq M.predicted among non-blacks MDRD (S/P/Bld) [Vol rate/Area] 45 mL/min/1.73 m2 Low >=59mL/min/1.73 m2 [facility] Chem S Globulin (S) [Mass/Vol] 3.3 g/dL Normal 1.4 - 4.0 gm/dL [facility] Glucose [Mass/Vol] 190 mg/dL Normal 55 - 199 mg/dL [facility] Potassium [Moles/Vol] 3.2 mmol/L Low 3.5 - 5.3 mmol/L [facility] Protein [Mass/Vol] 7.0 g/dL Normal 6.0 - 7.8 gm/dL F [facility] Remisol Sodium [Moles/Vol] 137 mmol/L Normal 135 - 145 mmol/L [facility] Triglyceride [Mass/Vol] 125 mg/dL Normal <=149mg/dL [facility] TSH Qn 3.80 m[IU]/L Normal 0.34 - 5.60 mcIU/mL [facility] Urea nitrogen [Mass/Vol] 15 mg/dL Normal 5 - 21 mg/dL [facility] Urea nitrogen/Creatinine [Mass ratio] 12 mg/mg Normal 10 - 20 [facility] CHEMISTRYOrdered By: Stanton lu on 03-17-2023 Albumin DL <= 20 mg/L (U) [Mass/Vol] 5.1 microgram/mL Normal 0.0 - 19.0 mcg/mL [facility] CHEMISTRYOrdered By: Jayna casillas on 03-17-2023 HbA1c (Bld) [Mass fraction] 7.0 % High <=5.9% [facility] ChemAutoSS CMPon 03-17-2023 Albumin [Mass/Vol] 3.7 g/dL Normal 3.3-5.0 [facility] Comment on above: Performed By: #### 2 [id number], [id number] #### [facility] [address] [place] [address] Albumin/Globulin (S) [Mass conc ratio] 1.1 Normal 1.1-2.2 [facility] Comment on above: Performed By: #### 2 266387, [id number] #### [facility] [address] [place] [address] ALP [Catalytic activity/Vol] 68 Int._Unit/L Normal 21-98 [facility] Comment on above: Performed By: #### 2 055220, [id number] #### [facility] [address] [place] [address] ALT No additional P-5'-P [Catalytic activity/Vol] 18 Int._Unit/L Normal 6-46 [facility] Comment on above: Performed By: #### 2 448639, [id number] #### [facility] [address] [place] [address] Anion gap [Moles/Vol] 13 mmol/L Normal 6-16 [facility] Comment on above: Performed By: #### 2 536167, [id number] #### [facility] [address] [place] [address] AST [Catalytic activity/Vol] 36 Int._Unit/L Normal 5-43 [facility] Comment on above: Performed By: #### 2 385463, [id number] #### [facility] [address] [place] [address] Bilirubin [Mass/Vol] 1.4 mg/dL High 0.0-1.[address] [facility] Comment on above: Performed By: #### 2 225794, [id number] #### [facility] [address] [place] [address] Calcium [Mass/Vol] 9.1 mg/dL Normal 8.9-11.1 [facility] Comment on above: Performed By: #### 2 755121, [id number] #### [facility] [address] [place] [address] Chloride [Moles/Vol] 102 mmol/L Normal 101-[address] [facility] Comment on above: Performed By: #### 2 747197, [id number] #### [facility] [address] [place] [address] CO2 [Moles/Vol] 25 mmol/L Normal 21-31 [facility] Comment on above: Performed By: #### 2 351433, [id number] #### [facility] [address] [place] [address] Creatinine [Mass/Vol] 1.3 mg/dL Normal 0.5-1.3 [facility] Comment on above: Performed By: #### 2 635922, [id number] #### [facility] [address] [place] [address] Globulin (S) [Mass/Vol] 3.3 g/dL Normal 1.4-4.0 [facility] Comment on above: Performed By: #### 2 815876, [id number] #### [facility] [address] [place] [address] Glucose [Mass/Vol] 190 mg/dL Normal 55-199 [facility] Comment on above: Result Comment: If t his glucose result represents a fasting glucose, interpretation should refer to the following reference range: 55-99 mg/dL Performed By: #### 2 635851, [id number] #### [facility] [address] [place] [address] Potassium [Moles/Vol] 3.2 mmol/L Low 3.5-5.3 [facility] Comment on above: Performed By: #### 2 847977, [id number] #### [facility] [address] [place] [address] Protein [Mass/Vol] 7.0 g/dL Normal 6.0-7.8 [facility] Comment on above: Performed By: #### 2 785267, [id number] #### [facility] [address] [place] [address] Sodium [Moles/Vol] 137 mmol/L Normal 135-145 [facility] Comment on above: Performed By: #### 2 714992, [id number] #### [facility] [address] [place] [address] Urea nitrogen [Mass/Vol] 15 mg/dL Normal 5-21 [facility] Comment on above: Performed By: #### 2 474581, [id number] #### [facility] [address] [place] [address] Urea nitrogen/Creatinine [Mass ratio] 12 No Units Normal 10-20 [facility] Comment on above: Performed By: #### 2 152146, [id number] #### [facility] [address] [place] [address] Family Medicine Office/Clini c Noteon 03-17-2023 Family Medicine Office/Clinic Note Chief Complaint establish care, med review wants her A1C done HPI Staff Establish Care: Due for all health maintenance items. History: HTN, DM, hypothyroid Any previous diagnosis: History of seeing any specialist(s): no When was your last doctor visit: 09/18/22 Last provider: Kirit Any recent labs: 04/03/22 [facility] labs Patient is here for follow up on Diabetes. How often are you checking your blood sugars? 1 times per day What are your average readings? 175-300 lately 110 issues with diet Do you have any of the following symptoms? Foot Exam: due Eye Exam: due May 2023, has appt Microalbumin: none Last A1C: 6.7 09/18/22 Last Chronic Labs: 04/03/22 Health Maintenence UTD: Colonoscopy: due needs referral Mammogram: none she's unsure if wants one Pelvic/pap: doesn't get them anymore covid: UTD Acute: Current issues/complaints: none wants her A1C checked History of Present Illness Misa Santos is a 67-year-old female who presents today to establish care. She goes by Jaleel. She has a history of diabetes. She was first prescribed metformin; however, it made her dizzy and nauseous. She did try taking the metformin with food. She states that she has gained weight. Her thyroid was checked earlier this year and was within normal limits. She has never taken a statin for her cholesterol. She has a history of anal fissure. She has never had a colonoscopy. Jaleel does not recall ever being diagnosed with restrictive lung disease. She states that she has had bronchitis in the past. 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 She receives Botox injections in the muscles around her eyes. Jaleel is retired. She previously worked at [employer]. She is and has 2 sons. Review of Systems PHQ Score Initial Depression Screen Score: 0 Physical Exam Vitals & Measurements HR: 68(Peripheral) RR: 20 BP: 136/82 SpO2: 95% HT: 59 in HT: 150.8 cm WT: 111.5 kg WT: 245.3 lb BMI: 49.03 General: alert, no acute distress Cardiovascular: regular rate and rhythm, normal peripheral perfusion Respiratory: Lungs CTA, respirations non labored Extremities: no deformity, no trauma Neurological: oriented x 4, LOC appropriate for age, CN II-XII intact, motor strength equal & normal bilaterally, speech normal Assessment/Plan 1. Diabetes mellitus type II, controlled (E11.9: Type 2 diabetes mellitus without complications) Controlled. We will do an A1c again today. Discussed diet and exercise with the patient in detail. Discussed the metformin and statin that the patient is not on. We will check those and if patient's cholesterol is elevated, we will restart the statin. 2. Hypertension (I10: Essential (primary) hypertension) Patient is at goal today. We will continue on medication before. 3. Hypothyroid (E03.9: Hypothyroidism, unspecified) We will check the thyroid today. If there are any issues, we will follow up as needed. 4. Restrictive lung disease (J98.4: Other disorders of lung) I do not know where this is coming from. Patient is unsure. Patient states that she does get bronchitis. We will continue to monitor this. 5. Colon cancer screening (Z12.11: Encounter for screening for malignant neoplasm of colon) We will do a Cologuard for the patient. 6. Breast cancer screening (Z12.39: Encounter for other screening for malignant neoplasm of breast) We will order a screening mammogram today. 7. BMI 45.0-49.9, adult (Z68.42: Body mass index [BMI] 45.0-49.9, adult) BMI education given. 8. Class 3 obesity (E66.01: Morbid (severe) obesity due to excess calories) As above. We will see the patient back in 6 months as long as blood work is within normal limits. Documentation services were performed after patient or guardian consented to allow Kaylynn De Paz to record this visit. NICO commissioning specialist and provider reviewed before signing. NICO: Yarelis Arevalo. Follow-up No qualifying data available Problem List/Past Medical History Ongoing Allergic rhinitis Anal fissure Breast cancer screening Colon cancer screening Diabetes mellitus type II, controlled Hypertension Hypothyroid Pericapsulitis of shoulder Restrictive lung disease Rotator cuff tendonitis Tremor, essential Historical No qualifying data Procedure/Surgical History Carpal tunnel release, section, AWA BSO - Total abdominal hysterectomy and bilateral salpingo-oophorectomy . Medications aspirin 81 mg oral capsule, 81 mg= 1 cap(s), Oral, Daily glipiZIDE 5 mg Tab, 5 mg= 1 tab(s), Oral, Daily hydrochlorothiazide-l osartan 25 mg-100 mg Tab, 1 tab(s), Oral, Daily levothyroxine 75 mcg (0.075 mg) Tab, 75 mcg= 1 tab(s), Oral, Daily Metoprolol tartrate 25 mg Tab, 25 mg= 1 tab(s), Oral, BID Misc DME Prescription, See Instructions Allergies metFORMIN (Unknown) sulfa drugs (Unknown) Social History Tobacco Never (less than 100 in lifetime) Tobacco Use:. Never Smokeless Tobacco Use:., (more content not included)... Normal [facility] Comment on above: Result Comment: Elec tronically Signed By: Willian Barrios MD\.br\Date and Time Signed: 03/17/23 18:09 EDT\.br\Electronically Co-Signed By: Yarelis Arevalo.br\Date and Time Co-Signed: 03/17/23 12:01 EDT Family Medicine Office/Clinic Note Chief Complaint establish care, med review wants her A1C done HPI Staff Establish Care: Due for all health maintenance items. History: HTN, DM, hypothyroid Any previous diagnosis: History of seeing any specialist(s): no When was your last doctor visit: 09/18/22 Last provider: Kirit Any [facility] Patient is here for follow up on Diabetes. How often are you checking your blood sugars? 1 times per day What are your average readings? 175-300 lately 110 issues with diet Do you have any of the following symptoms? Foot Exam: due Eye Exam: due May 2023, has appt Microalbumin: none Last A1C: 6.7 09/18/22 Last [facility]: [facility]: Colonoscopy: due needs referral Mammogram: none she's unsure if wants one Pelvic/pap: doesn't get them anymore covid: UTD Acute: Current issues/complaints: none wants her A1C checked History of Present Illness Misa Santos is a 67-year-old female who presents today to [facility] care. She goes by Jaleel. She has a history of diabetes. She was first prescribed metformin; however, it made her dizzy and nauseous. She did try taking the metformin with food. She states that she has gained weight. Her thyroid was checked earlier this year and was within normal limits. She has never taken a statin for her cholesterol. She has a history of anal fissure. She has never had a colonoscopy. Jaleel does not recall ever being diagnosed with restrictive lung disease. She states that she has had bronchitis in the past. 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 She receives Botox injections in the muscles around her eyes. Jaleel is retired. She previously worked at [employer]. She is and has 2 sons. Review of Systems PHQ Score Initial Depression Screen Score: 0 Physical Exam Vitals & Measurements HR: 68(Peripheral) RR: 20 BP: 136/82 SpO2: 95% HT: 59 in HT: 150.8 cm WT: 111.5 kg WT: 245.3 lb BMI: 49.03 General: alert, no acute distress Cardiovascular: regular rate and rhythm, normal peripheral perfusion Respiratory: Lungs CTA, respirations non labored Extremities: no deformity, no trauma Neurological: oriented x 4, LOC appropriate for age, CN II-XII intact, motor strength equal & normal bilaterally, speech normal Assessment/Plan 1. Diabetes mellitus type II, controlled (E11.9: Type 2 diabetes mellitus without complications) Controlled. We will do an A1c again today. Discussed diet and exercise with the patient in detail. Discussed the metformin and statin that the patient is not on. We will check those and if patient's cholesterol is elevated, we will restart the statin. 2. Hypertension (I10: Essential (primary) hypertension) Patient is at goal today. We will continue on medication before. 3. Hypothyroid (E03.9: Hypothyroidism, unspecified) We will check the thyroid today. If there are any issues, we will follow up as needed. 4. Restrictive lung disease (J98.4: Other disorders of lung) I do not know where this is coming from. Patient is unsure. Patient states that she does get bronchitis. We will continue to monitor this. 5. Colon cancer screening (Z12.11: Encounter for screening for malignant neoplasm of colon) We will do a Cologuard for the patient. 6. Breast cancer screening (Z12.39: Encounter for other screening for malignant neoplasm of breast) We will order a screening mammogram today. 7. BMI 45.0-49.9, adult (Z68.42: Body mass index [BMI] 45.0-49.9, adult) BMI education given. 8. Class 3 obesity (E66.01: Morbid (severe) obesity due to excess calories) As above. We will see the patient back in 6 months as long as blood work is within normal limits. Documentation services were performed after patient or guardian consented to allow [employer] to record this visit. NICO commissioning specialist and provider reviewed before signing. NICO: Yarelis Arevalo. Follow-up No qualifying data available Problem List/Past Medical History Ongoing Allergic rhinitis Anal fissure Breast cancer screening Colon cancer screening Diabetes mellitus type II, controlled Hypertension Hypothyroid Pericapsulitis of shoulder Restrictive lung disease Rotator cuff tendonitis Tremor, essential Historical No qualifying data Procedure/Surgical History Carpal tunnel release, section, AWA BSO - Total abdominal hysterectomy and bilateral salpingo-oophorectomy . Medications aspirin 81 mg oral capsule, 81 mg= 1 cap(s), Oral, Daily glipiZIDE 5 mg Tab, 5 mg= 1 tab(s), Oral, Daily hydrochlorothiazide-l osartan 25 mg-100 mg Tab, 1 tab(s), Oral, Daily levothyroxine 75 mcg (0.075 mg) Tab, 75 mcg= 1 tab(s), Oral, Daily Metoprolol tartrate 25 mg Tab, 25 mg= 1 tab(s), Oral, BID Misc DME Prescription, See Instructions Allergies metFORMIN (Unknown) sulfa drugs (Unknown) Social History Tobacco Never (less than 100 in lifetime) Tobacco Use:. Never Smokeless Tobacco Use:., (more content not included)... Normal [facility] Comment on above: Result Comment: Elec tronically Signed By: Yarelis Arevalo\.br\Date and Time Signed: 03/17/23 11:51 EDT\.br\Electronically Co-Signed By: Rohini TUCKER HEMATOLOGYOrdered By: [employer] on 03-17-2023 Basophils/100 WBC (Bld) 1.2 % Normal 0.0 - 2.0 % [facility] Basophils/Leukocytes Auto (Bld) [Pure # fraction] 0.0 E9/L Normal 0.0 - 0.2 E9/L [facility] Eosinophils/100 WBC (Bld) 3.2 % Normal 0.0 - 8.0 % [facility]eAuto[facility] Eosinophils/Leukocyt es Auto (Bld) [Pure # fraction] 0.1 E9/L Normal 0.0 - 0.5 E9/L [facility] Lymphocytes/100 WBC (Bld) 28.3 % Normal 14.0 - 50.0 % [facility] Lymphocytes/Leukocyt es Auto (Bld) [Pure # fraction] 0.8 E9/L Low 1.0 - 4.0 E9/L [facility] Monocytes/100 WBC (Bld) 11.1 % Normal 4.0 - 14.0 % [facility] Monocytes/Leukocytes Auto (Bld) [Pure # fraction] 0.3 E9/L Normal 0.2 - 1.0 E9/L [facility] Neutrophils/100 WBC (Bld) 56.2 % Normal 36.0 - 75.0 % [facility] Neutrophils/Leukocyt es Auto (Bld) [Pure # fraction] 1.7 E9/L Low 2.0 - 7.5 E9/L [facility] HEMATOLOGYOrdered By: Jayna Butts on 03-17-2023 Erythrocyte distribution width (RBC) [Ratio] 13.7 % Normal 10.9 - 14.2 % [facility] Hematocrit (Bld) [Volume fraction] 36.8 % Normal 34.0 - 46.0 % [facility] HemeAutoSS Hemoglobin (Bld) [Mass/Vol] 12.3 g/dL Normal 12.0 - 16.0 gm/dL [facility] HemeAuto[facility] MCH (RBC) [Entitic mass] 30.5 pg Normal 27.0 - 34.0 pg [facility] HemeAutoSS MCHC (RBC) [Mass/Vol] 33.4 g/dL Normal 31.4 - 36.0 gm/dL [facility]eAuto[facility] MCV (RBC) [Entitic vol] 91.5 fL Normal 80.0 - 100.0 fL [facility] Platelet mean volume (Bld) [Entitic vol] 8.9 fL Normal 6.4 - 10.8 fL [facility]eAuto[facility] Platelets (Bld) [#/Vol] 101.0 E9/L Low 150.0 - 500.0 E9/L [facility] RBC (Bld) [#/Vol] 4.0 E12/L Low 4.3 - 5.9 E12/L [facility] HemeAutoSS WBC corrected for nucl RBC Auto (Bld) [#/Vol] 3.0 E9/L Low 4.0 - 11.0 E9/L [facility] HemeAutoSS [id number] 03-17-2023 HbA1c (Bld) [Mass fraction] 7.0 % High <=5.9 [facility] Comment on above: Performed By: #### 2 [id number], [id number] #### [facility] [address] [place] [address] Lipid Panelon 03-17-2023 Cholesterol [Mass/Vol] 156 mg/dL Normal 120-200 [facility] Comment on above: Performed By: #### 2 [id number], [id number] #### [facility] [address] [place] [address] Cholesterol in HDL [Mass/Vol] 28 mg/dL Invalid Interpretation Code [facility] Comment on above: Result Comment: HDL > or equal to 60 mg/dL: Low cardiovascular risk HDL < 40 mg/dL : High cardiovascular risk Performed By: #### 2 [id number], [id number] #### [facility] [address] [place] [address] Cholesterol in LDL [Mass/Vol] 94 mg/dL Normal <=129 [facility] Comment on above: Performed By: #### 2 [id number], [id number] #### [facility] [address] [place] [address] Cholesterol in VLDL [Mass/Vol] 25 mg/dL Normal 7-40 [facility] Comment on above: Performed By: #### 2 [id number], [id number] #### [facility] [address] [place] [address] Triglyceride [Mass/Vol] 125 mg/dL Normal <=149 [facility] Comment on above: Performed By: #### 2 [id number], [id number] #### [facility] [address] [place] [address] TSH With T4fr Reflexon 03-17 TSH Qn 3.80 m[IU]/L Normal 0.34-5.60 [facility] Comment on above: Performed By: #### 2 [id number], [id number] #### [facility] [address] [place] [address] U Microalbon 03-17-2023 Albumin DL <= 20 mg/L (U) [Mass/Vol] 5.1 microgram/mL Normal 0.0-19.0 [facility] Comment on above: Performed By: #### 7 [id number] #### [facility] [address] [place] [address] eGFRon 03-17-2023 GFR/1.73 sq M.predicted among non-blacks MDRD (S/P/Bld) [Vol rate/Area] 45 mL/min/1.73 m2 Low >=59 [facility] Comment on above: Order Comment: Order added by Discern Expert. Result Comment: Polysomnography Tech annabella kidney disease could be indicated at eGFR's of less than 60 mL/min/1.73m2. Kidney failure is indicated at less than 15 mL/min/1.73m2. Performed By: #### 2 [id number], [id number] #### [facility] [address] [place] [address] FREE T3on 09-18-2022 FREE T3 1.81 pg/mlL Critically low 2.18-3.98 [facility] Comment on above: Performed By: #### T MALLORY, FT3 #### [facility] [address] [address] [address] Jt Waite FREE T4on 09-18-2022 Free T4 [Mass/Vol] 1.19 ng/dL Normal 0.76-1.46 [facility] Comment on above: Performed By: #### F T4 #### [facility] [address] [address] [address] Jt Waite GLYCOHEMOGLOBIN A1Con 2021 ADA RECOMMENDATION SEE BELOW Normal [facility] Comment on above: Result Comment: ADA RECOMMENDED LIMIT 4.0 - 6.0 ADA THERAPEUTIC TARGET < 7.0 ACTION SUGGESTED > 7.0 Performed By: #### A 1C #### [facility] [address] [address] [address] Jt Waite Glucose [Mass/Vol] 146 mg/dL Normal [facility] Comment on above: Performed By: #### A 1C #### [facility] [address] [address] [address] Jt Waite HbA1c (Bld) [Mass fraction] 6.7 % Critically high 4.5-6.2 [facility] Comment on above: Performed By: #### A 1C #### [facility] [address] [address] [address] Jt Waite TSHon 09-18-2022 TSH 3.693 uIU/mL Normal 0.358-3.740 [facility] Comment on above: Performed By: #### T MALLORY, FT3 ####[facility] [id number] [address]Dr. Jt Waite CBC AUTO DIFFon 04-03-2022 BASO # 0.0 103/ul Normal 0.0-0.1 [facility] Comment on above: Performed By: #### C BC #### [facility] [address] [place] [address] Dr. Jt Waite Basophils/100 WBC (Bld) 0.9 % Normal 0.2-2.0 [facility] Comment on above: Performed By: #### C BC #### [facility] [address] [place] [address] Dr. Jt Waite EO # 0.1 103/ul Normal 0.0-0.7 [facility] Comment on above: Performed By: #### C BC #### [facility] [address] [place] [address] Dr. Jt Waite Eosinophils/100 WBC (Bld) 3.3 % Normal 0.9-7.0 [facility] Comment on above: Performed By: #### C BC #### [facility] [address] [place] [address] Dr. Jt Waite Erythrocyte distribution width (RBC) [Ratio] 13.1 % Normal 11.0-15.0 [facility] Comment on above: Performed By: #### C BC #### [facility] [address] [place] [address] Dr. Jt Waite Hematocrit (Bld) [Volume fraction] 36.1 % Normal 36.0-48.0 [facility] Comment on above: Performed By: #### C BC #### [facility] [address] [place] [address] Dr. Jt Waite Hemoglobin (Bld) [Mass/Vol] 12.3 g/dL Normal 12.0-16.0 [facility] Comment on above: Performed By: #### C BC #### [facility] [address] [place] [address] Dr. Jt Waite IG # 0.01 10e3/ul Normal 0.00-0.03 [facility] Comment on above: Performed By: #### C BC #### [facility] [address] [place] [address] Dr. Jt Waite IG % 0.3 % Normal 0.0-0.5 [facility] Comment on above: Performed By: #### C BC #### [facility] [address] [place] [address] Dr. Jt Waite LYMPH # 1.2 103/ul Normal 1.2-3.8 [facility] Comment on above: Performed By: #### C BC #### [facility] [address] [place] [address] Dr. Jt Waite Lymphocytes/100 WBC (Bld) 35.4 % Normal 20.5-60.0 [facility] Comment on above: Performed By: #### C BC #### [facility] [address] [place] [address] Dr. Jt Waite MANUAL DIFF REQ NO Normal [facility] Comment on above: Performed By: #### C BC #### [facility] [address] [place] [address] Dr. Jt Waite MCH (RBC) [Entitic mass] 31.0 pg Normal 26.7-34.0 [facility] Comment on above: Performed By: #### C BC #### [facility] [address] [place] [address] Dr. Jt Waite MCHC (RBC) [Mass/Vol] 34.1 g/dL Normal 29.9-35.2 [facility] Comment on above: Performed By: #### C BC #### [facility] [address] [place] [address] Dr. Jt Waite MCV (RBC) [Entitic vol] 90.9 fL Normal 81.0-99.0 [facility] Comment on above: Performed By: #### C BC #### [facility] [address] [place] [address] Dr. Jt Waite MONO # 0.3 103/ul Normal 0.3-0.8 [facility] Comment on above: Performed By: #### C BC #### [facility] [address] [place] [address] Dr. Jt Waite Monocytes/100 WBC (Bld) 9.3 % Normal 1.7-12.0 [facility] Comment on above: Performed By: #### C BC #### [facility] [address] [place] [address] Dr. Jt Waite NEUT # 1.7 103/ul Normal 1.4-6.5 [facility] Comment on above: Performed By: #### C BC #### [facility] [address] [address] [address] Jt Waite Neutrophils/100 WBC (Bld) 50.8 % Normal 43.0-75.0 [facility] Comment on above: Performed By: #### C BC #### [facility] [address] [address] [address] Jt Waite Platelet mean volume (Bld) [Entitic vol] 10.2 fL Normal 9.5-13.5 [facility] Comment on above: Performed By: #### C BC #### [facility] [address] [place] [address] Dr. Jt Waite PLT 96 103/ul Critically low 150-450 [facility] Comment on above: Performed By: #### C BC #### [facility] [address] [place] [address] Dr. Jt Waite RBC 3.97 106/ul Critically low 4.20-5.40 [facility] Comment on above: Performed By: #### C BC #### [facility] [address] [place] [address] Dr. Jt Waite WBC 3.3 103/ul Critically low 4.0-11.0 [facility] Comment on above: Performed By: #### C BC #### [facility] [address] [place] [address] Dr. Jt Waite GLYCOHEMOGLOBIN A1Con 2021 ADA RECOMMENDATION SEE BELOW Normal [facility] Comment on above: Result Comment: ADA RECOMMENDED LIMIT 4.0 - 6.0 ADA THERAPEUTIC TARGET < 7.0 ACTION SUGGESTED > 7.0 Performed By: #### A 1C #### [facility] [address] [place] [address] Dr. Jt Waite Glucose [Mass/Vol] 120 mg/dL Normal [facility] Comment on above: Performed By: #### A 1C #### [facility] [address] [place] [address] Dr. Jt Waite HbA1c (Bld) [Mass fraction] 5.8 % Normal 4.5-6.2 [facility] Comment on above: Performed By: #### A 1C #### [facility] [address] [address] [address] Jt Waite LIPID PROFILEon 04-03-2022 CHOL-HDL RATIO NORM SEE BELOW Normal [facility] Comment on above: Result Comment: 3.3 - 4.4 LOW RISK 4.4 - 7.1 AVERAGE RISK 7.1 - 11.0 MODERATE RISK >11.0 HIGH RISK Performed By: #### C MP, LIPID #### [facility] [address] [address] [address] Jt Waite Cholesterol [Mass/Vol] 133 mg/dL Normal <=200 [facility] Comment on above: Performed By: #### C MP, LIPID #### [facility] [address] [address] [address] Jt Waite Cholesterol in HDL [Mass/Vol] 37 mg/dL Critically low 40-60 [facility] Comment on above: Performed By: #### C MP, LIPID #### [facility] [address] [address] [address] Jt Waite Cholesterol in LDL [Mass/Vol] 81.0 mg/dL Normal [facility] Comment on above: Performed By: #### C MP, LIPID #### [facility] [address] [address] [address] Jt Waite Cholesterol.total/Ch olesterol in HDL [Mass ratio] 3.6 {ratio} Normal [facility] Comment on above: Performed By: #### C MP, LIPID #### [facility] [address] [address] [address] Jt Waite HDL NORMAL > or = 60 mg/dl - LO W CARDIOVASCULAR RISK <40 mg/dl - HIGH CARDIOVASCULAR RISK Normal [facility] Comment on above: Performed By: #### C MP, LIPID #### [facility] [address] [address] [address] Jt Waite LDL CALC NORMAL SEE BELOW Normal [facility] Comment on above: Result Comment: <100 mg/dl OPTIMAL 100 - 129 mg/dl NEAR OR ABOVE OPTIMAL 130 - 159 mg/dl BORDERLINE HIGH 160 - 189 mg/dl HIGH >190 mg/dl VERY HIGH Performed By: #### C MP, LIPID #### [facility] [address] [place] [address] Dr. Jt Waite Triglyceride [Mass/Vol] 75 mg/dL Normal <=150 [facility] Comment on above: Performed By: #### C MP, LIPID #### [facility] [address] [place] [address] Dr. Jt Waite VLDL CALC 15.0 mg/dL Normal [facility] Comment on above: Performed By: #### C MP, LIPID #### [facility] [address] [place] [address] Dr. Jt Waite PROF 14(COMP METB)on 022 Albumin [Mass/Vol] 3.4 g/dL Normal 3.4-5.0 [facility] Comment on above: Performed By: #### C MP, LIPID #### [facility] [address] [place] [address] Dr. Jt Waite Albumin/Globulin [Mass ratio] 0.9 {ratio} Normal [facility] Comment on above: Performed By: #### C MP, LIPID #### [facility] [address] [place] [address] Dr. Jt Waite ALP [Catalytic activity/Vol] 82 U/L Normal 46-116 [facility] Comment on above: Performed By: #### C MP, LIPID #### [facility] [address] [place] [address] Dr. Jt Waite ALT [Catalytic activity/Vol] 24 U/L Normal 14-59 [facility] Comment on above: Performed By: #### C MP, LIPID #### [facility] [address] [place] [address] Dr. Jt Waite Anion gap [Moles/Vol] 13.1 mmol/L Normal [facility] Comment on above: Performed By: #### C MP, LIPID #### [facility] [address] [place] [address] Dr. Jt Waite AST [Catalytic activity/Vol] 31 U/L Normal 15-37 [facility] Comment on above: Performed By: #### C MP, LIPID #### [facility] [address] [place] [address] Dr. Jt Waite Bilirubin [Mass/Vol] 1.0 mg/dL Normal 0.2-1.0 [facility] Comment on above: Performed By: #### C MP, LIPID #### [facility] [address] [place] [address] Dr. Jt Waite Calcium [Mass/Vol] 9.1 mg/dL Normal 8.5-10.1 [facility] Comment on above: Performed By: #### C MP, LIPID #### [facility] [address] [place] [address] Dr. Jt Waite Chloride [Moles/Vol] 105 mmol/L Normal 98-107 [facility] Comment on above: Performed By: #### C MP, LIPID #### [facility] [address] [place] [address] Dr. Jt Waite CO2 [Moles/Vol] 27.4 mmol/L Normal 21.0-32.0 [facility] Comment on above: Performed By: #### C MP, LIPID #### [facility] [address] [place] [address] Dr. Jt Waite Creatinine [Mass/Vol] 1.03 mg/dL Critically high 0.55-1.02 [facility] Comment on above: Performed By: #### C MP, LIPID #### [facility] [address] [place] [address] Dr. Jt Waite EGFR-AF IRAQI >60 Normal >=60 [facility] Comment on above: Performed By: #### C MP, LIPID #### [facility] [address] [place] [address] Dr. Jt Waite EGFR-NON AF IRAQI 53 mL/min/1.73m2 Critically low >=60 [facility] Comment on above: Performed By: #### C MP, LIPID #### [facility] [address] [place] [address] Dr. Jt Waite Globulin (S) [Mass/Vol] 3.7 g/dL Normal [facility] Comment on above: Performed By: #### C MP, LIPID #### [facility] [address] [address] [address] Jt Waite Glucose [Mass/Vol] 100 mg/dL Normal 74-106 [facility] Comment on above: Performed By: #### C MP, LIPID #### [facility] [address] [place] [address] Dr. Jt Waite Potassium [Moles/Vol] 3.5 mmol/L Normal 3.5-5.1 [facility] Comment on above: Performed By: #### C MP, LIPID #### [facility] [address] [place] [address] Dr. Jt Waite Protein [Mass/Vol] 7.1 g/dL Normal 6.4-8.2 [facility] Comment on above: Performed By: #### C MP, LIPID #### [facility] [address] [place] [address] Dr. Jt Waite Sodium [Moles/Vol] 142 mmol/L Normal 136-145 [facility] Comment on above: Performed By: #### C MP, LIPID #### [facility] [address] [place] [address] Dr. Jt Waite Urea nitrogen [Mass/Vol] 23.0 mg/dL Critically high 7.0-18.0 [facility] Comment on above: Performed By: #### C MP, LIPID #### [facility] [address] [place] [address] Dr. Jt Waite Urea nitrogen/Creatinine [Mass ratio] 22.3 mg/mg Normal [facility] Comment on above: Performed By: #### C MP, LIPID #### [facility] [address] [place] [address] Dr. Jt Waite D-DIMERon 03-15-2022 D-DIMER 0.32 mg/L FEU Normal <=0.59 [facility] Comment on above: Performed By: #### D DIM #### [facility] [address], [place] [address] Dr. Jt Waite D-DIMER COMMENTS SEE BELOW Normal [facility] Comment on above: Result Comment: Incr eases in D-Dimer concentration observed with thromboembolic events can be variable due to localization, size, and age of the thrombus. Therefore, a thromboembolic event cannot be diagnosed with certainty on the basis of the reference range. D-Dimers may also be elevated for a variety of disorders including: advanced age, , coronary disease, cancer, liver disease, infection, inflammation, hematoma, DIC, trauma, post-surgery, diabetes, thrombolytic or anticoagulant therapy, stress, and generalized hospitalization. Performed By: #### D DIM #### [facility] [address], [place] [address] Dr. Jt Waite ECHOCARDIO M/2D COMPLETEon 0 03-12-2022 ECHOCARDIO M/2D COMPLETE Patient: MISA SANTOS Exam Date: 03/12/2022 : 1955 Gender:F Ordering : HOLLY VALDOVINOS Admission #: [id number] Family : Order #: [id number] CLICK HERE TO VIEW EXAM ECHOCARDIOGRAM REPORT PROCEDURE: CARDIO PULMONARY ECHOCARDIO M/2D COMP INDICATIONS: Ascending aorta aneurysm COMPARISON: None. DESCRIPTION: COMPLETE ECHOCARDIOGRAM Real-time transthoracic echocardiography with 2D, M-mode, spectral and color flow Doppler performed. QUALITY: Technical quality was good. LEFT VENTRICLE: Normal chamber size. Mild concentric left ventricular hypertrophy. LV EF: Normal left ventricular ejection fraction, (>55%). DIASTOLIC: Normal diastolic function. ATRIAL SEPTUM: LEFT ATRIUM: Mildly dilated. RIGHT ATRIUM: Moderate dilatation. RIGHT VENTRICLE: Moderate dilatation. Mildly decreased right ventricular systolic function. TRICUSPID VALVE: Normal mobility and thickness. No stenosis with mild regurgitation. No evidence of pulmonary hypertension. RVSP is 30 mmHg MITRAL VALVE: Normal mobility and thickness. No evidence of mitral valve stenosis. There is no mitral annular calcification. Mild mitral regurgitation. AORTIC VALVE: Normal trileaflet appearance. Mildly calcified aortic valve. Normal leaflet mobility. No evidence of aortic valve stenosis. No aortic regurgitation. AORTIC ROOT: Normal diameter and appearance [3.0 cm]. Moderately dilated ascending aorta (4.2 cm) PULMONIC VALVE: Normal thickness and mobility. No stenosis. Mild regurgitation. PERICARDIUM: No evidence of pericardial effusion. IVC: Collapses with inspirations. PLEURA: CONCLUSION: 1. Normal ventricular systolic function. LVEF is 60%. 2. Moderately dilated right ventricle with mildly reduced systolic function. 3. Mild to moderate atrial dilatation. 4. Mild tricuspid regurgitation. 5. Normal right-sided pressures. 6. No pericardial effusion. 7. Moderately dilated ascending aorta measuring 4.2 cm, normal size aortic root measuring 3.0 cm. Adult Echocardiography Procedure Report Left Ventricle LVEDD (3.7 - 5.6 cm): 4.70 cm LVESD (2.2 - 4.0 cm): 3.07 cm LVIVS thickness (0.6 - 1.2 cm): 1.01 cm LVPW thickness (0.5 - 1.0 cm): 1.09 cm e': 9.32 cm/s E - e': 9 LVOT Area (cm2): 3.46 cm2 LVOT Diameter 2.10 cm Left Ventricular Ejection Fraction: 60 % Left Atrium LA Volume Index (2D A2C): 16.10 ml/m2 Left Atrium Systolic Dimension: 4.80 cm Left Atrium Systolic Area(A2C): 15.90 cm2 Left Atrium Systolic Area(A4C): 25.20 cm2 Left Atrium Systolic Volume(A2C): 52741 mm3 Left Atrium Systolic Volume(A4C): 56801 mm3 Mitral Valve MV E to A Ratio: 1.10 Mitral Valve A-Wave Peak Velocity: 79.00 cm/s Mitral Valve E-Wave Peak Velocity: 83.90 cm/s Deceleration Time: 296 ms Right Ventricle Aorta AO Root Diam: 3.00 cm Aortic Valve AoV Area (Peak Yinka): 2.94 cm2 Aortic Valve Cusp Separation: 1.80 cm Peak Velocity(Antegrade Flow): 116.00 cm/s Peak Gradient(Antegrade Flow): 5 mm[Hg] Tricuspid Valve Peak Velocity (Regurgitant Flow): 232.00 cm/s, 254.00 cm/s Pulmonic Valve Peak Velocity: 102.00 cm/s Peak Gradient: 4 mm[Hg] Right Atrium Dictated by: Wally Perdue M.D. on 03/12/2022 at 19:24 Approved by: Wally Perdue M.D. on 03/12/2022 at 19:30 Normal [facility] GLYCOHEMOGLOBIN A1Con 2020 ADA RECOMMENDATION ADA THERAPEUTIC TARGET 6.0 - 7.0 ACTION SUGGESTED > 7.0 Normal [facility] Comment on above: Performed By: #### A 1C #### [facility] [address], [place] [address] Dr. Jt Waite Glucose [Mass/Vol] 140 mg/dL Normal [facility] Comment on above: Performed By: #### A 1C #### [facility] [address] [place], [place] [address] Dr. Jt Waite HbA1c (Bld) [Mass fraction] 6.5 % Critically high <=6.0 [facility] Comment on above: Performed By: #### A 1C #### [facility] [address] [place], [place] [address] Dr. Jt Waite Vital Signs Date Time Vital Sign Value Performing Clinician Facility 10-01-2023 12:37-0500 [facility]01-[facility]23 12:37-0500 Body temperature 96.8 [degF] [facility]-01-2023 12:37-0500 Diastolic blood pressure 79 mm[facility]Hg[facility] 12:37-0500 Heart rate 55 /[facility] 10-01-2023 12:37-0500 Systolic blood pressure 119 mm[Hg[facility] 07-31-2023 09:49-0400 Blood Pressure Location [facility] 07-31-2023 09:49-0400 Body temperature 96.8 [degF] [facility] 09:49-0400 Diastolic blood pressure 67 mm[Hg] Ashlie Mead [facility] 07-31-2023 09:49-0400 Heart rate 59 /min Ashlie Mead [facility] 07-31-2023 09:49-0400 Systolic blood pressure 123 mm[Hg] Ashlie Mead [facility] 06-24-2023 10:12-0400 Heart rate 48 /min [facility] 06-24-2023 10:12-0400 SaO2% (BldA) [Mass fraction] 96 % [facility] 06-24-2023 10:12-0400 Blood Pressure Location [facility] 06-24-2023 10:12-0400 Diastolic blood pressure 61 mm[Hg] [facility] 06-24-2023 10:12-0400 Mean blood pressure 79 mm[Hg] [facility] 06-24-2023 10:12-0400 Systolic blood pressure 115 mm[Hg] [facility] 06-24-2023 10:11-0400 Body temperature 97.88 [degF] [facility] 06-24-2023 10:11-0400 Respiratory rate 17 /min [facility] 06-24-2023 09:04-0400 Heart rate 58 /min [facility] 06-24-2023 09:04-0400 SaO2% (BldA) [Mass fraction] 96 % [facility] 06-24-2023 09:04-0400 Respiratory rate 18 /min [facility] 06-24-2023 09:04-0400 Blood Pressure Location [facility] 06-24-2023 09:04-0400 Diastolic blood pressure 76 mm[Hg] [facility] 06-24-2023 09:04-0400 Mean blood pressure 94 mm[Hg] [facility] 06-24-2023 09:04-0400 Systolic blood pressure 131 mm[Hg] [facility] 06-17-2023 10:00-0400 Blood Pressure Location [facility] 06-17-2023 10:00-0400 Body temperature 98.42 [degF] [facility] 06-17-2023 10:00-0400 Diastolic blood pressure 74 mm[Hg] [facility] 06-17-2023 10:00-0400 Heart rate 49 /min [facility] 06-17-2023 10:00-0400 Mean blood pressure 92 mm[Hg] [facility] 06-17-2023 10:00-0400 Respiratory rate 18 /min [facility] 06-17-2023 10:00-0400 SaO2% (BldA) [Mass fraction] 95 % Mhd Al-Marrawi [facility] 06-17-2023 10:00-0400 Systolic blood pressure 128 mm[Hg] [facility]hd Al[facility]Marrawi [facility] 06-04-2023 13:02-0400 Blood Pressure Location [facility] 06-04-2023 13:02-0400 Diastolic blood pressure 70 mm[Hg] [facility] 06-04-2023 13:02-0400 Heart rate 76 /min [facility] 06-04-2023 13:02-0400 Respiratory rate 16 /min [facility] 06-04-2023 13:02-0400 Systolic blood pressure 122 mm[Hg] [facility] 05-13-2023 10:00-0400 Blood Pressure Location Mhd Al-Marrawi [facility] 05-13-2023 10:00-0400 Body temperature 97.52 [degF] [facility] Al[facility]raw[facility] 05-13-2023 10:00-0400 Diastolic blood pressure 77 mm[Hg] [facility]hd Al[facility]Marraw[facility] 05-13-2023 10:00-0400 Heart rate 56 /min Mhd Al-Marrawi [facility] 05-13-2023 10:00-0400 Mean blood pressure 95 mm[Hg] Mhd Al-Marrawi [facility] 05-13-2023 10:00-0400 SaO2% (BldA) [Mass fraction] 96 % [facility] 05-13-2023 10:00-0400 Systolic blood pressure 130 mm[facility]Hg[facility] 04-29-2023 10:00-0400 [facility] 10:00-0400 Body temperature 98.06 [degF] [facility] 04-29-2023 10:00-0400 Diastolic blood pressure 72 mm[Hg] [facility] 04-29-2023 10:00-0400 Heart rate 53 /min [facility] 04-29-2023 10:00-0400 Mean blood pressure 89 mm[Hg] [facility] 04-29-2023 10:00-0400 Respiratory rate 18 /min [facility] 04-29-2023 10:00-0400 SaO2% (BldA) [Mass fraction] 96 % [facility] 04-29-2023 10:00-0400 Systolic blood pressure 122 mm[Hg] [facility] Encounters Encounter Date Encounter Type Care Provider Facility Start: 08-31-2024 ambulatory MD Willian Barrios Facil ity:[facility] Start: 03-29-2024 ambulatory MD Willian Barrios Facil ity:[facility] Start: 10-01-2023 End: 10-02-2023 ambulatory Ashlie Mead Facility:[facility] Start: 10-01-2023 End: 10-01-2023 Patient encounter procedure Ashlie Mead [facility] Start: 09-29-2023 End: 09-30-2023 ambulatory MD Willian Barrios Facility:[facility] Start: 09-24-2023 End: 09-25-2023 ambulatory MD Willian Barrios Facility:[facility] Start: 09-17-2023 End: 09-18-2023 ambulatory MD Willian Barrios Facility:[facility] Start: 09-16-2023 End: 09-17-2023 ambulatory MD Willian Barrios Facility:[facility] Start: 09-15-2023 End: 09-16-2023 ambulatory Mhd Laney Amin Facility:[facility] Start: 09-15-2023 End: 09-15-2023 [facility] Start: 08-29-2023 End: 08-30-2023 ambulatory MD Willian Barrios Facility:[facility] Start: 07-31-2023 End: 08-01-2023 ambulatory Ashlie Mead Facility:[facility] Start: 07-31-2023 End: 07-31-2023 Patient encounter procedure Ashlie Mead [facility] Start: 07-30-2023 End: 07-31-2023 [facility]ulatory MD [facility] Start: 07-28-2023 End: 08-25-2023 ambulatory MD Willian Barrios Facility:CD:[id number] Start: 07-24-2023 End: 07-25-2023 ambulatory Lucas Bates Facility:[facility] Start: 07-22-2023 End: 07-23-2023 ambulatory Mhd Laney Amin Facility:[facility] Start: 06-30-2023 End: 07-01-2023 ambulatory MD Willian Barrios Facility:[facility] Start: 06-30-2023 End: 06-30-2023 Lab Drop off Willian Barrios [facility] Start: 06-24-2023 End: 06-24-2023 ambulatory Mhd Yaser Al-Marrawi Facility:[facility] Start: 06-24-2023 End: 06-24-2023 Patient encounter procedure Mhd Yaser Al-Marrawi [facility] Start: 06-17-2023 End: 06-18-2023 ambulatory Mhd Yaser Al-Marrawi Facility:[facility] Start: 06-17-2023 End: 06-17-2023 Patient encounter procedure Mhd Yaser Al-Marrawi [facility] Start: 06-12-2023 End: 06-13-2023 ambulatory Mhd Yaser Al-Marrawi Facility:[facility] Start: 06-12-2023 End: 06-12-2023 Patient encounter procedure Mhd Yaser Al-Marrawi [facility] Start: 06-04-2023 End: 06-05-2023 ambulatory [facility] Start: 06-04-2023 End: 06-04-2023 Patient encounter procedure Cabrera Talal Sarmini [facility] Start: 05-29-2023 ambulatory MD Willian Barrios Facility :[facility] Start: 05-29-2023 End: 05-29-2023 ambulatory [facility] Start: 05-27-2023 End: 05-28-2023 ambulatory Mhd Yaser Al-Marrawi Facility:[facility] Start: 05-27-2023 End: 05-27-2023 Patient encounter procedure Mhd Yaser Al-Marrawi [facility] Start: 05-13-2023 End: 05-14-2023 ambulatory Mhd Yaser Al-Marrawi Facility:[facility] Start: 05-13-2023 End: 05-14-2023 ambulatory Mhd Yaser Al-Marrawi Facility:[facility] Start: 05-13-2023 End: 05-13-2023 Patient encounter procedure Mhd Yaser Al-Marrawi [facility] Start: 05-13-2023 End: 05-13-2023 Patient encounter procedure Mhd Yaser Al-Marrawi [facility] Start: 04-29-2023 End: 04-30-2023 ambulatory Mhd Yaser Al-Marrawi Facility:[facility] Start: 04-29-2023 End: 04-30-2023 ambulatory Mhd Yaser Al-Marrawi Facility:[facility] Start: 04-29-2023 End: 04-29-2023 Patient encounter procedure Ortiz Alexander [facility] Start: 03-31-2023 End: 04-01-2023 ambulatory MD Willian Barrios Facility:[facility] Start: 03-17-2023 End: 03-18-2023 ambulatory MD Willian Barrios Facility:[facility] Start: 03-17-2023 End: 03-17-2023 Lab Drop off Willian Barrios [facility] Start: 12-20-2022 ambulatory MD Willian Barrios [facility] ity:[facility] [place] Start: 09-18-2022 End: 09-19-[address] FERNY HUDDLESTON Facility:[facility] Start: 05-29-2022 End: 05-30-[address] FERNY HUDDLESTON Facility:[facility] Start: 04-23-2022 End: 04-24-2022 ambulatory HOLLY VALDOVINOS Facility:[facility] Start: 04-03-2022 End: 04-04-[address] FERNY HUDDLESTON Facility:[facility] Start: 03-15-2022 End: 03-16-2022 ambulatory HOLLY VALDOVINOS Facility:[facility] Start: 03-12-2022 End: 03-13-2022 ambulatory HOLLY VALDOVINOS Facility:[facility] Start: 10-02-2021 End: 10-03-[address] FERNY HUDDLESTON Facility:[facility] Start: 10-26-2018 End: 10-27-2018 Patient encounter procedure DEFAULT PHYSICIAN Facility:[facility] Procedures Date Procedure Procedure Detail Performing Clinician Start: 07-24-2023 Colonoscopy Ashlie alvarado Start: 06-24-2023 Bone marrow sampling Mh d Hattiemiguel Comment on above: ct section Willian Barrios Comment on above: X1 Decompression of med jewels nerve Willian Barrios Total abdominal hysterectomy with bilateral salpingo-oophorectomy Willian Barrios Immunizations Immunization Date Immunization Notes Care Provider Fa [facility] 07-28-2023 influenza virus vaccine, unspecified formulation Ashlie Mead [facility] 07-28-2023 SARS-CoV-2 mRNA (tozinameran 5y-11y) vaccine d Eloisa [facility] Comment on above: Result Comment: Covi d 19 pfizer 07-24-2022 influenza virus vaccine, unspecified formulation Willian Barrios [facility] 07-24-2022 SARS-CoV-2 (COVID-19 ) [id number] Willian Barrios [facility] 01-15-2022 SARS-CoV-2 mRNA (gjlorbhpekk-uidn-leacu se) vaccine Willian Barrios [facility] 07-24-2021 influenza virus vaccine, unspecified formulation Willian Barrios [facility] 07-10-2021 SARS-CoV-2 (COVID-19 ) mRNA BNT-162b2 vax Willian Barrios [facility] 01-02-2021 SARS-CoV-2 (COVID-19 ) mRNA BNT-162b2 vax Willian Barrios [facility] 12-11-2020 SARS-CoV-2 (COVID-19 ) mRNA BNT-162v3 vax Willian Barrios [facility] 06-21-2020 influenza virus vaccine, unspecified formulation Willian Barrios [facility] 06-21-2020 pneumococcal polysaccharide vaccine, 23 valent Willian Barrios [facility] 07-13-2019 influenza virus vaccine, unspecified formulation Willian Barrios [facility] 07-10-2018 influenza virus vaccine, unspecified formulation Willian Barrios [facility] 11-20-2016 pneumococcal polysaccharide vaccine, 23 valent Willian Barrios [facility] NEGATED: Highlighted row has not occurred!06-30-2023 influenza virus vaccine, unspecified formulation Willian Barrios [facility] Payers Date Payer Category Payer Medicare [id number] 1961 Unknown [id number] 1955 Unknown [id number] 2.16.8 40.1.797505.3.579.2.647 1953 Unknown [id number] 2.16.84 0.1.776256.3.579.2.593 1953 Unknown [id number] 2.16.84 0.1.121580.3.579.2.593 1953 Unknown [id number] 2.16.84 0.1.154874.3.579.2.593 1953 Unknown [id number] 2.16.84 0.1.569177.3.579.2.593 1953 Unknown [id number] 2.16.84 0.1.893459.3.579.2.593 1953 Unknown [id number] 2.16.84 0.1.410415.3.579.2.593 1953 Unknown [id number] 2.16.84 0.1.472757.3.579.2.593 1953 Unknown [id number] 2.16.8 40.1.432080.3.579.2.72 1953 Unknown [id number] 2.16.8 40.1.280808.3.579.2.72 1953 Unknown [id number] 2.16.8 40.1.604429.3.579.2.727 1953 Unknown [id number] 2.16.8 40.1.210157.3.579.2.727 1953 Unknown [id number] 2.16.8 40.1.427991.3.579.2.727 1953 Unknown [id number] 2.16.8 40.1.235709.3.579.2.727 1953 Unknown [id number] 2.16.8 40.1.584798.3.579.2.727 1953 Unknown [id number] 2.16.8 40.1.941195.3.579.2.727 1953 Unknown [id number] 2.16.8 40.1.591321.3.579.2.727 1953 Unknown [id number] 2.16.8 40.1.118478.3.579.2.727 1953 Unknown [id number] 2.16.8 40.1.522010.3.579.2.727 1953 Unknown [id number] 2.16.8 40.1.426495.3.579.2. 1953 Unknown [id number] 2.16.8 40.1.252717.3.579.2. 1953 Unknown [id number] 2.16.8 40.1.500900.3.579.2. 1953 Unknown [id number] 2.16.8 40.1.928314.3.579.2. 1953 Unknown [id number] 2.16.8 40.1.190343.3.579.2. 1953 Unknown [id number] 2.16.8 40.1.881453.3.579.2. 1953 Unknown [id number] 2.16.8 40.1.275139.3.579.2 1953 Unknown [id number] 2.16.8 40.1.586094.3.579.2 1953 Unknown [id number] 2.16.8 40.1.475920.3.579.2 1953 Unknown [id number] 2.16.8 40.1.052578.3.579.2. 1953 Unknown [id number] 2.16.8 40.1.337400.3.579.2 1953 Unknown [id number] 2.16.8 40.1.021979.3.579.2. 1953 Unknown [id number] 2.16.8 40.1.439274.3.579.2 1953 Unknown [id number] 2.16.8 40.1.548974.3.579.2. 1953 Unknown [id number] 2.16.8 40.1.429559.3.579.27 1953 Unknown [id number] 2.16.8 40.1.013830.3.579.2.727 1953 Unknown [id number] 2.16.8 40.1.747004.3.579.2.727 1953 Unknown [id number] 2.16.8 40.1.451381.3.579.2.727 Unknown Social History Date Type Detail Facility Start: 03-17-2023 End: 10-01-2023 Tobacco smoking status Never smoked tobacco (finding) [facility] Comment on above: denies Tobacco smoking status Never [facility] Comment on above: denies Sex Assigned At Female [facility] Medical Equipment Procedure Code Equipment Code Equipment Origin al Text Equipment Identifier Dates [facility] [place], See Instructions, 100 strip(s), 0, one touch ultra test strips Test sugars once a day Dx E11.9, [facility]acy [id number], Supply Start: 02-06-2023 [facility] [place], See Instructions, 100 strip(s), 0, one touch ultra test strips Test sugars once a day Dx E11.9, [id number], Supply Start: 02-06-2023 [facility] Pres[place], See Instructions, 100 strip(s), 0, one touch ultra test strips Test sugars once a day Dx E11.9, [id number], Supply, 150, cm, 04/29/23 10:06:00 EDT, Height/Length Dosing, 112.3, kg, 04/29/23 10:06:00 EDT, Weight Dosing Start: 05-06-2023 [facility] [place], See Instructions, 100 strip(s), 0, one touch ultra test strips Test sugars once a day Dx E11.9, [facility]/pharmacy #[id number], Supply, 150, cm, 04/29/23 10:06:00 EDT, Height/Length Dosing, 112.3, kg, 04/29/23 10:06:00 EDT, Weight Dosing Start: 05-06-2023 [facility] [place], See Instructions, 100 strip(s), 0, one touch ultra test strips Test sugars once a day Dx E11.9, [facility]/pharmacy #[id number], Supply, 150, cm, 04/29/23 10:06:00 EDT, Height/Length Dosing, 112.3, kg, 04/29/23 10:06:00 EDT, Weight Dosing Start: 05-06-2023 [facility] Pres[place], See Instructions, 100 strip(s), 0, one touch ultra test strips Test sugars once a day Dx E11.9, [id number], Supply, 150, cm, 04/29/23 10:06:00 EDT, Height/Length Dosing, 112.3, kg, 04/29/23 10:06:00 EDT, Weight Dosing Start: 05-06-2023 [facility] Prescription, See Instructions, 100 strip(s), 0, one touch ultra test strips Test sugars once a day Dx E11.9, [id number], Supply, 150, cm, 04/29/23 10:06:00 EDT, Height/Length Dosing, 112.3, kg, 04/29/23 10:06:00 EDT, Weight Dosing Start: 05-06-2023 [facility] Prescription, See Instructions, 100 strip(s), 0, one touch ultra test strips Test sugars once a day Dx E11.9, [id number], Supply, 150, cm, 04/29/23 10:06:00 EDT, Height/Length Dosing, 112.3, kg, 04/29/23 10:06:00 EDT, Weight Dosing Start: 05-06-2023 [facility] Prescription, See Instructions, 100 strip(s), 0, one touch ultra test strips Test sugars once a day Dx E11.9, [facility] #[id number], Supply, 150, cm, 04/29/23 10:06:00 EDT, Height/Length Dosing, 112.3, kg, 04/29/23 10:06:00 EDT, Weight Dosing Start: 05-06-2023 [facility] Prescription, See Instructions, 100 strip(s), 0, one touch ultra test strips Test sugars once a day Dx E11.9, [id number], Supply, 150, cm, 04/29/23 10:06:00 EDT, Height/Length Dosing, 112.3, kg, 04/29/23 10:06:00 EDT, Weight Dosing Start: 05-06-2023 Unknown Unknown 07/24/23 Non Biological Unknown FDA Start: 07-24-2023 [facility] Prescription, See Instructions, 100 strip(s), 1, one touch test strips. Use to test blood sugars once a day Dx E11.9, [id number], Supply, 150.8, cm, 07/30/23 7:38:00 EDT, Height/Length Dosing, 111.9, kg, 07/30/23 7:38:00 EDT, Weight Dosing Start: 07-30-2023 Unknown Unknown 07/24/23 Non Biological Unknown FDA Start: 07-24-2023 Lancets, See Instructions, 100 EA, 1, To be used once a day to obtain blood sugars Dx: E11.9, [id number], Supply, 150.8, cm, 07/31/23 9:52:00 EDT, Height/Length Dosing, 112.7, kg, 07/31/23 9:52:00 EDT, Weight Dosing Start: 08-21-2023 [facility] Pres[place], See Instructions, 100 strip(s), 1, one touch test strips. Use to test blood sugars once a day Dx E11.9, [id number], Supply, 150.8, cm, 07/31/23 9:52:00 EDT, Height/Length Dosing, 112.7, kg, 07/31/23 9:52:00 EDT, Weight Dosing Start: 08-21-2023 Unknown Unknown 07/24/23 Non Biological Unknown FDA Start: 07-24-2023 Lancets, See Instructions, 100 EA, 1, To be used once a day to obtain blood sugars Dx: E11.9, [id number], Supply, 150.8, cm, 07/31/23 9:52:00 EDT, Height/Length Dosing, 112.7, kg, 07/31/23 9:52:00 EDT, Weight Dosing Start: 08-21-2023 [facility] Pres[place], See Instructions, 100 strip(s), 1, one touch test strips. Use to test blood sugars once a day Dx E11.9, [id number], Supply, 150.8, cm, 07/31/23 9:52:00 EDT, Height/Length Dosing, 112.7, kg, 07/31/23 9:52:00 EDT, Weight Dosing Start: 08-21-2023 Functional Status Date Assessment Result Facility 10-01-2023 Functional Status N/A [facility] 07-31-2023 Functional Status N/A [facility] 06-24-2023 Functional Status N/A [facility] 06-04-2023 Functional Status N/A [facility] Clinical Notes 04-18-2023 to 10-01-2023 LaboratoryRadiologyRadiologyRadiologyLaboratoryRadiologyLaboratoryRadiologyLabor atoryRadiologyLaboratoryRadiologyRadiologyLaboratoryRadiologyRadiologyLaboratory RadiologyLaboratoryRadiologyLaboratory Note Date & Type Note Facility 10-01-2023 Hospital Discharge instructions Patient Education 10/01/2023 12:42:50 Colon Polyps Colon Polyps Colon polyps are tissue growths inside the colon, which is part of the large intestine. They are one of the types of polyps that can grow in the body. A polyp may be a round bump or a mushroom-shaped growth. You could have one polyp or more than one. Most colon polyps are noncancerous (benign). However, some colon polyps can become cancerous over time. Finding and removing the polyps early can help prevent this. What are the causes? The exact cause of colon polyps is not known. What increases the risk? The following factors may make you more likely to develop this condition: Having a family history of colorectal cancer or colon polyps. Being older than 45 years of age. Being younger than 45 years of age and having a significant family history of colorectal cancer or colon polyps or a genetic condition that puts you at higher risk of getting colon polyps. Having inflammatory bowel disease, such as ulcerative colitis or Crohn's disease. Having certain conditions passed from parent to child (hereditary conditions), such as: ?Familial adenomatous polyposis (FAP). ?Mishra syndrome. ?Turcot syndrome. ?Peutz Jeghers syndrome. ?MUTYH-associated polyposis (MAP). Being overweight. Certain lifestyle factors. These include smoking cigarettes, drinking too much alcohol, not getting enough exercise, and eating a diet that is high in fat and red meat and low in fiber. Having had childhood cancer that was treated with radiation of the abdomen. What are the signs or symptoms? Many times, there are no symptoms. If you have symptoms, they may include: Blood coming from the rectum during a bowel movement. Blood in the stool (feces). The blood may be bright red or very dark in color. Pain in the abdomen. A change in bowel habits, such as constipation or diarrhea. How is this diagnosed? This condition is diagnosed with a colonoscopy. This is a procedure in which a lighted, flexible scope is inserted into the opening between the buttocks (anus) and then passed into the colon to examine the area. Polyps are sometimes found when a colonoscopy is done as part of routine cancer screening tests. How is this treated? This condition is treated by removing any polyps that are found. Most polyps can be removed during a colonoscopy. Those polyps will then be tested for cancer. Additional treatment may be needed depending on the results of testing. Follow these instructions at home: Eating and drinking Eat foods that are high in fiber, such as fruits, vegetables, and whole grains. Eat foods that are high in calcium and vitamin D, such as milk, cheese, yogurt, eggs, liver, fish, and broccoli. Limit foods that are high in fat, such as fried foods and desserts. Limit the amount of red meat, precooked or cured meat, or other processed meat that you eat, such as hot dogs, sausages, yun, or meat loaves. Limit sugary drinks. Lifestyle Maintain a healthy weight, or lose weight if recommended by your health care provider. Exercise every day or as told by your health care provider. Do not use any products that contain nicotine or tobacco, such as cigarettes, e-cigarettes, and chewing tobacco. If you need help quitting, ask your health care provider. Do not drink alcohol if: ?Your health care provider tells you not to drink. ?You are , may be , or are planning to become . If you drink alcohol: ?Limit how much you use to: ?0 1 drink a day for women. ?0 2 drinks a day for men. ?Know how much alcohol is in your drink. In the [place] one drink equals one 12 oz bottle of beer (355 mL), one 5 oz glass of wine (148 mL), or one 1 oz glass of hard liquor (44 mL). General instructions Take jyce-zgl-tydwcxa and prescription medicines only as told by your health care provider. Keep all follow-up visits. This is important. This includes having regularly scheduled colonoscopies. Talk to your health care provider about when you need a colonoscopy. Contact a health care provider if: You have new or worsening bleeding during a bowel movement. You have new or increased blood in your stool. You have a change in bowel habits. You lose weight for no known reason. Summary Colon polyps are tissue growths inside the colon, which is part of the large intestine. They are one type of polyp that can grow in the body. Most colon polyps are noncancerous (benign), but some can become cancerous over time. This condition is diagnosed with a colonoscopy. This condition is treated by removing any polyps that are found. Most polyps can be removed during a colonoscopy. This information is not intended to replace advice given to you by your health care provider. Make sure you discuss any questions you have with your health care provider. Document Revised: 01/17/2021 Document Reviewed: 01/17/2021 [employer] Patient Education 2022 [employer]. Follow Up Care 07/31/2023 10:11:05 With:Ashlie Mead CNP Address: When:Within 4 Month(s) [facility] 09-24-2023 Note Infectious Disease COVID-19 COVID-19, or coronavirus disease 2019, is an infection that is caused by a new (novel) coronavirus called SARS-CoV-2. COVID-19 can cause many symptoms. In some people, the virus may not cause any symptoms. In others, it may cause mild or severe symptoms. Some people with severe infection develop severe disease. What are the causes? This illness is caused by a virus. The virus may be in the air as tiny specks of fluid (aerosols) or droplets, or it may be on surfaces. You may catch the virus by: ? Breathing in droplets from an infected person. Droplets can be spread by a person breathing, speaking, singing, coughing, or sneezing. ? Touching something, like a table or a doorknob, that has virus on it (is contaminated) and then touching your mouth, nose, or eyes. What increases the risk? Risk for infection: You are more likely to get infected with the COVID-19 virus if: ? You are within 6 ft (1.8 m) of a person with COVID-19 for 15 minutes or longer. ? You are providing care for a person who is infected with COVID-19. ? You are in close personal contact with other people. Close personal contact includes hugging, kissing, or sharing eating or drinking utensils. Risk for serious illness caused by COVID-19: You are more likely to get seriously ill from the COVID-19 virus if: ? You have cancer. ? You have a long-term (chronic) disease, such as: ? Chronic lung disease. This includes pulmonary embolism, chronic obstructive pulmonary disease, and cystic fibrosis. ? Long-term disease that lowers your body's ability to fight infection (immunocompromise). ? Serious cardiac conditions, such as heart failure, coronary artery disease, or cardiomyopathy. ? Diabetes. ? Chronic kidney disease. ? Liver diseases. These include cirrhosis, nonalcoholic fatty liver disease, alcoholic liver disease, or autoimmune hepatitis. ? You have obesity. ? You are or were recently . ? You have sickle cell disease. What are the signs or symptoms? Symptoms of this condition can range from mild to severe. Symptoms may appear any time from 2 to 14 days after being exposed to the virus. They include: ? Fever or chills. ? Shortness of breath or trouble breathing. ? Feeling tired or very tired. ? Headaches, body aches, or muscle aches. ? Runny or stuffy nose, sneezing, coughing, or sore throat. ? New loss of taste or smell. This is rare. Some people may also have stomach problems, such as nausea, vomiting, or diarrhea. Other people may not have any symptoms of COVID-19. How is this diagnosed? This condition may be diagnosed by testing samples to check for the COVID-19 virus. The most common tests are the PCR test and the antigen test. Tests may be done in the lab or at home. They include: ? Using a swab to take a sample of fluid from the back of your nose and throat (nasopharyngeal fluid), from your nose, or from your throat. ? Testing a sample of saliva from your mouth. ? Testing a sample of coughed-up mucus from your lungs (sputum). How is this treated? Treatment for COVID-19 infection depends on the severity of the condition. ? Mild symptoms can be managed at home with rest, fluids, and knxh-ytf-jjkhzwk medicines. ? Serious symptoms may be treated in a hospital intensive care unit (ICU). Treatment in the ICU may include: ? Supplemental oxygen. Extra oxygen is given through a tube in the nose, a face mask, or a arnold. ? Medicines. These may include: ? Antivirals, such as monoclonal antibodies. These help your body fight off certain viruses that can cause disease. ? Anti-inflammatories, such as corticosteroids. These reduce inflammation and suppress the immune system. ? Antithrombotics. These prevent or treat blood clots, if they develop. ? Convalescent plasma. This helps boost your immune system, if you have an underlying immunosuppressive condition or are getting immunosuppressive treatments. ? Prone positioning. This means you will lie on your stomach. This helps oxygen to get into your lungs. ? Infection control measures. If you are at risk for more serious illness caused by COVID-19, your health care provider may prescribe two long-acting monoclonal antibodies, given together every 6 months. How is this prevented? To protect yourself: ? Use preventive medicine (pre-exposure prophylaxis). You may get pre-exposure prophylaxis if you have moderate or severe immunocompromise. ? Get vaccinated. Anyone 6 months old or older who meets guidelines can get a COVID-19 vaccine or vaccine series. This includes people who are or making breast milk (lactating). ? Get an added dose of COVID-19 vaccine after your first vaccine or vaccine series if you have moderate to severe immunocompromise. This applies if you have had a solid organ transplant or have been diagnosed with an immunocompromising condition. ? You should (more content not included)... [facility] 07-31-2023 Hospital Discharge instructions Patient Education 07/31/2023 10:00:29 Anemia Anemia Anemia is a condition in which there is not enough red blood cells or hemoglobin in the blood. Hemoglobin is a substance in red blood cells that carries oxygen. When you do not have enough red blood cells or hemoglobin (are anemic), your body cannot get enough oxygen and your organs may not work properly. As a result, you may feel very tired or have other problems. What are the causes? Common causes of anemia include: Excessive bleeding. Anemia can be caused by excessive bleeding inside or outside the body, including bleeding from the intestines or from heavy menstrual periods in females. Poor nutrition. Long-lasting (chronic) kidney, thyroid, and liver disease. Bone marrow disorders, spleen problems, and blood disorders. Cancer and treatments for cancer. HIV (human immunodeficiency virus) and AIDS (acquired immunodeficiency syndrome). Infections, medicines, and autoimmune disorders that destroy red blood cells. What are the signs or symptoms? Symptoms of this condition include: Minor weakness. Dizziness. Headache, or difficulties concentrating and sleeping. Heartbeats that feel irregular or faster than normal (palpitations). Shortness of breath, especially with exercise. Pale skin, lips, and nails, or cold hands and feet. Indigestion and nausea. Symptoms may occur suddenly or develop slowly. If your anemia is mild, you may not have symptoms. How is this diagnosed? This condition is diagnosed based on blood tests, your medical history, and a physical exam. In some cases, a test may be needed in which cells are removed from the soft tissue inside of a bone and looked at under a microscope (bone marrow biopsy). Your health care provider may also check your stool (feces) for blood and may do additional testing to look for the cause of your bleeding. Other tests may include: Imaging tests, such as a CT scan or MRI. A procedure to see inside your esophagus and stomach (endoscopy). A procedure to see inside your colon and rectum (colonoscopy). How is this treated? Treatment for this condition depends on the cause. If you continue to lose a lot of blood, you may need to be treated at a hospital. Treatment may include: Taking supplements of iron, vitamin B12, or folic acid. Taking a hormone medicine (erythropoietin) that can help to stimulate red blood cell growth. Having a blood transfusion. This may be needed if you lose a lot of blood. Making changes to your diet. Having surgery to remove your spleen. Follow these instructions at home: Take uvgu-udr-nhjdedw and prescription medicines only as told by your health care provider. Take supplements only as told by your health care provider. Follow any diet instructions that you were given by your health care provider. Keep all follow-up visits as told by your health care provider. This is important. Contact a health care provider if: You develop new bleeding anywhere in the body. Get help right away if: You are very weak. You are short of breath. You have pain in your abdomen or chest. You are dizzy or feel faint. You have trouble concentrating. You have bloody stools, black stools, or tarry stools. You vomit repeatedly or you vomit up blood. These symptoms may represent a serious problem that is an emergency. Do not wait to see if the symptoms will go away. Get medical help right away. Call your local emergency services (911 in the [place] Do not drive yourself to the hospital. Summary Anemia is a condition in which you do not have enough red blood cells or enough of a substance in your red blood cells that carries oxygen (hemoglobin). Symptoms may occur suddenly or develop slowly. If your anemia is mild, you may not have symptoms. This condition is diagnosed with blood tests, a medical history, and a physical exam. Other tests may be needed. Treatment for this condition depends on the cause of the anemia. This information is not intended to replace advice given to you by your health care provider. Make sure you discuss any questions you have with your health care provider. Document Revised: 08/13/2022 Document Reviewed: 09/05/2020 [employer] Patient Education 2022 [employer]. Follow Up Care 07/25/2023 08:45:16 With:Ashlie Mead CNP Address: When:1 month [facility] 07-25-2023 Note [id number] [facility] 07-25-2023 Note Admission and Discha rge Information Admitting Physician - Lucas Bates DO Referring Physician - Rachid PATTEN, Deborah Bell Admitting Diagnoses: Discharge Order Date Discharge Patient - Ordered -- 07/25/23 8:31:00 EDT Discharge Diagnoses 1. Colon polyps, 07/24/2023 2. Hypertension, 07/24/2023 3. Hypothyroid, 07/24/2023 4. Stage 3a chronic kidney disease (CKD), 07/24/2023 5. Controlled type 2 diabetes mellitus without complication, without long-term current use of insulin, 07/24/2023 6. HLD (hyperlipidemia), 07/24/2023 Procedure History Colonoscopy (07/24/2023), Bone marrow biopsy (06/24/2023), Carpal tunnel release, section, AWA BSO - Total abdominal hysterectomy and bilateral salpingo-oophorectomy. Hospital Course 68-year-old female with past medical history of hypertension, hypothyroid, diabetes admitted to hospital 07/24 after having colonoscopy done earlier that morning. Patient had a recent positive Cologuard from PCP and went and saw GI doctor who performed colonoscopy. Colonoscopy showed a 1 cm semipedunculated polyp in the ascending colon, which was resected completely with snare and clip. Patient also had all large 4 cm pedunculated polyp in the sigmoid colon and during attempted removal due to size polyp began bleeding very briskly. Bleeding was controlled using hot snare as well as epi and clips. Due to size of polyp and procedure GI wanted to observe patient overnight. Patient was kept n.p.o. in case patient needed repeat EGD done later that day. Patient did not have any bleeding throughout stay. Patient denied any abdominal pain throughout stay. Hemoglobin level remained stable. Patient was stable at discharge. Patient to follow-up with Dr. Rashid as instructed. No prescription changes Follow-up ? GI as instructed Physical Exam Vitals & Measurements T: 36.5 ?C(Axillary) TMIN: 36.3 ?C(Oral) TMAX: 36.7 ?C(Temporal Artery) HR: 64(Monitored) RR: 18 BP: 140/83 SpO2: 95% HT: 150.8 cm WT: 114 kg General: Looks well, no acute distress, well-nourished, well-kept,obese Skin: Warm, dry Head: No trauma, normocephalic Neck: Trachea midline, supple, negative for JVD Eye: Conjunctive are clear, clear sclera , EOMI ENMT: oral mucosa moist, no lesions or edema nose or external ears Cardiovascular: Regular rate and rhythm, S1-S2 present, negative for murmurs rubs or gallops Respiratory: Lungs clear to auscultation, bilateral symmetric movement, negative for wheezes rales or rhonchi Chest wall: no deformity. Gastrointestinal: Abdomen soft, nontender to palpation, bowel sounds present Back: No tenderness Extremities: Range of motion intact, no edema Neurological: awake, alert, speech normal, cranial nerves II through XII intact, no sensory defects, alert and oriented x3 Psychiatric: cooperative, affect appropriate for age, pleasant Laboratory Results Automated Diff (07/25/2023) Neutro Auto - 59.4 % Lymph Auto - 25.7 % Emmet Auto - 10.8 % Eos Auto - 3.2 % Basophil Auto - 0.9 % Neutro Absolute - 1.5 E9/L Lymph Absolute - 0.6 E9/L Emmet Absolute - 0.3 E9/L Eos Absolute - 0.1 E9/L Basophil Absolute - 0.0 E9/L Capillary Glucose POC (07/25/2023) Glucose Cap - 89 mg/dL POC Device SN - [id number] POC User ID - [id number] POC Username - [email or web address] LOVE CBC w/ Auto Diff (07/25/2023) WBC - 2.5 E9/L RBC - 3.4 E12/L Hgb - 10.9 gm/dL Hct - 31.8 % MCV - 92.3 fL MCH - 31.7 pg MCHC - 34.3 gm/dL RDW - 13.1 % Platelet - 79.0 E9/L MPV - 8.5 fL Tests Performed Automated Diff Capillary Glucose POC CBC w/ Auto Diff Discharge Plan Discharge Medication List Prescriptions Albuterol (Eqv-ProAir HFA) 90 mcg/inh inhalation aerosol, 2 puff(s), Inhalation, q6hr glipiZIDE 5 mg Tab, 5 mg= 1 tab(s), Oral, Daily, 3 refills levothyroxine 75 mcg (0.075 mg) Tab, 75 mcg= 1 tab(s), Oral, Daily Lipitor 40 mg Tab, 40 mg= 1 tab(s), Oral, Daily Misc DME Prescription, See Instructions, 1 refills Home aspirin 81 mg oral capsule, 81 mg= 1 cap(s), Oral, Daily hydrochlorothiazide-losartan 25 mg-100 mg Tab, 1 tab(s), Oral, Daily Metoprolol tartrate 25 mg Tab, 25 mg= 1 tab(s), Oral, BID Follow-up With When Contact Information Rachid PATTEN, ROGELIO Villarreal, MED Within [address] [place], [place] [address]christal, [address] [address] [phone] Additional Instructions: Call for followup appointment Patient Education Colonoscopy, Adult, Care After, Dtyx-ta-Fzdf Colon Polyps [facility] Comment on above: Result Comment: Elec tronically Signed By: Lucas Bates DO.br\Date and Time Signed: 07/25/23 08:33 EDT 07-24-2023 Note History of Present I llness 68-year-old female with past medical history of hypertension, hypothyroid, diabetes admitted to hospital 07/24 after having colonoscopy done earlier that morning. Patient had a recent positive Cologuard from PCP and went and saw GI doctor who performed colonoscopy. Colonoscopy showed a 1 cm semipedunculated polyp in the ascending colon, which was resected completely with snare and clip. Patient also had all large 4 cm pedunculated polyp in the sigmoid colon and during attempted removal due to size polyp began bleeding very briskly. Bleeding was controlled using hot snare as well as epi and clips. After procedure GI wanted patient to be observed in hospital for day to make sure bleeding has stopped. If patient already to continue to bleed he would take her back to endoscopy later this evening. Currently patient is resting comfortably in bed and has no complaints including no abdominal pain,. Patient has not had bowel movement yet or noticed any blood per rectum. Vital signs are currently stable. Review of Systems Scoring Physical Exam Vitals & Measurements T: 36.3 ?C(Temporal Artery) TMIN: 36.3 ?C(Temporal Artery) TMAX: 36.7 ?C(Temporal Artery) HR: 53(Monitored) RR: 19 BP: 131/81 SpO2: 98% HT: 150.8 cm WT: 114 kg General: Looks well, no acute distress, well-nourished, well-kept,obese Skin: Warm, dry Head: No trauma, normocephalic Neck: Trachea midline, supple, negative for JVD Eye: Conjunctive are clear, clear sclera , EOMI ENMT: oral mucosa moist, no lesions or edema nose or external ears Cardiovascular: Regular rate and rhythm, S1-S2 present, negative for murmurs rubs or gallops Respiratory: Lungs clear to auscultation, bilateral symmetric movement, negative for wheezes rales or rhonchi Chest wall: no deformity. Gastrointestinal: Abdomen soft, nontender to palpation, bowel sounds present Back: No tenderness Extremities: Range of motion intact, no edema Neurological: awake, alert, speech normal, cranial nerves II through XII intact, no sensory defects, alert and oriented x3 Psychiatric: cooperative, affect appropriate for age, pleasant Lab Results No qualifying data available. Assessment/Plan All labs were reviewed Patient will be admitted under observation status due to length of stay estimated less than 2 midnights DVT PPx?PAS bilaterally Diet?n.p.o. CODE STATUS?full code 1. Colon polyps (K63.5: Polyp of colon) Status post colonoscopy 07/24 with removal of 2 large polyps. ? Patient will be observed in hospital for signs of bleeding ? If needed patient will return to endoscopy for repeat scope and further treatment ? Patient to remain n.p.o. ? Monitor hemoglobin level this afternoon and then daily as well as vital signs ? GI consulted and following patient?hold aspirin Ordered: Initial Hospital Care/Day Moderate 55 Minutes [id number] 2. Hypertension (I10: Essential (primary) hypertension) Monitor ? We will hold patient's HCTZ/losartan as well as metoprolol 3. Hypothyroid (E03.9: Hypothyroidism, unspecified) We will continue Synthroid when able 4. Stage 3a chronic kidney disease (CKD) (N18.31: Chronic kidney disease, stage 3a) Able, monitor 5. Controlled type 2 diabetes mellitus without complication, without long-term current use of insulin (E11.9: Type 2 diabetes mellitus without complications) Accu-Cheks every 6 hours, SSI if needed ? Patient takes glipizide at home we will hold for now 6. HLD (hyperlipidemia) (E78.5: Hyperlipidemia, unspecified) Statin Orders: CBC w/ Auto Diff CBC w/ Auto Diff Problem List/Past Medical History Ongoing Allergic rhinitis Anal fissure Breast cancer screening Colon cancer screening Controlled type 2 diabetes mellitus without complication, without long-term current use of insulin Hypertension Hypokalemia Hypothyroid Lymphopenia Pericapsulitis of shoulder Positive colorectal cancer screening using Cologuard test Restrictive lung disease Rotator cuff tendonitis Stage 3a chronic kidney disease (CKD) Thrombocytopenia Total bilirubin, elevated Tremor, essential Historical No qualifying data Procedure/Surgical History Colonoscopy (07/24/2023), Bone marrow biopsy (06/24/2023), Carpal tunnel release, section, AWA BSO - Total abdominal hysterectomy and bilateral salpingo-oophorectomy. Medications Inpatient Lactated Ringers IV Madison 1000 mL 1,000 mL, 1000 mL, IV Sodium Chloride 0.9% IV Madison 1000 mL 1,000 mL, 1000 mL, IV Home Albuterol (Eqv-ProAir HFA) 90 mcg/inh inhalation aerosol, 2 puff(s), Inhalation, q6hr aspirin 81 mg oral capsule, 81 mg= 1 cap(s), Oral, Daily glipiZIDE 5 mg Tab, 5 mg= 1 tab(s), Oral, Daily, 3 refills hydrochlorothiazide-losartan 25 mg-100 mg Tab, 1 tab(s), Oral, Daily levothyroxine 75 mcg (0.075 mg) Tab, 75 mcg= 1 tab(s), Oral, Daily Lipitor 40 mg Tab, 40 mg= 1 tab(s), Oral, Daily Metoprolol tartrate 25 mg Tab, 25 mg= 1 tab(s), Oral, BID Misc DME Pr (more content not included)... [facility] Comment on above: Result Comment: Elec tronically Signed By: Lucas Bates DO\.br\Date and Time Signed: 07/24/23 13:28 EDT 06-13-2023 Evaluation + Plan note Future Appointments Appointment Date:06/24/2023 09:00:00 AM Scheduled Provider: Location:.[facility] Appointment Type:CT Biopsy (FT) Appointment Date:06/24/2023 09:00:00 AM Scheduled Provider: Location:[facility] Appointment Type:Surgery FT Appointment Date:06/30/2023 11:20:00 AM Scheduled Provider:Willian Barrios MD Location:[facility] Appointment Type: Open Appointment Date:07/10/2023 09:30:00 AM Scheduled Provider: Location:[facility] Appointment Type:Surgery FT Appointment Date:07/22/2023 09:30:00 AM Scheduled Provider: Location:.ONCOLOGY Appointment Type:ONC Office Visit 30 (FT) Appointment Date:09/16/2023 01:00:00 PM Scheduled Provider: Location:[facility] Appointment Type: Medicare Wellness Subsequent Appointment Date:09/16/2023 02:20:00 PM Scheduled Provider:Willian Barrios MD [facility] App[facility] Type: Open Future Scheduled TestsCBC w/ Auto Diff 10/10/23CT Bone Marrow Biopsy 06/24/23MA Mamm Screen w/CAD if perf and 3D Michael 03/17/23 [facility] 05-29-2023 Note Cardiology Clinic No te Subjective Misa Santos is a 68 y.o. year old female patient past medical history of ascending aortic dilatation, hypertension, palpitations, hypothyroidism, and type 2 diabetes mellitus seen in follow-up. Patient Active Problem List Diagnosis Allergic rhinitis Anal fissure Controlled type 2 diabetes mellitus without complication, without long-term current use of insulin (CMS/HCC) Dilatation of aorta (CMS/HCC) Dyspnea on exertion Hypertension Hypothyroid Hypokalemia Lymphopenia Palpitations Rotator cuff tendonitis Restrictive lung disease Stage 3a chronic kidney disease (CKD) (CMS/HCC) Thrombocytopenia (CMS/HCC) Total bilirubin, elevated Tremor, essential No family history on file. Social History Tobacco Use Smoking status: Never Smokeless tobacco: Never Substance Use Topics Alcohol use: Not Currently Drug use: Never Update: 05/29/2023 Blood pressure at home is well controlled systolic in the 120s She has been doing well without concerns Here to follow-up on echo results Denies chest pain dyspneic symptoms, palpitations or significant lower extremity edema Review of Systems Cardiovascular: Positive for leg swelling. Negative for chest pain, dyspnea on exertion, irregular heartbeat, near-syncope, orthopnea, palpitations, paroxysmal nocturnal dyspnea and syncope. Objective Visit Vitals BP 128/80 (BP Location: Right arm, Patient Position: Sitting, BP Cuff Size: Adult) Pulse 58 Resp 12 Ht 1.575 m (5' 2 ) Wt 104 kg (230 lb) SpO2 95% BMI 42.07 kg/m??? Smoking Status Never BSA 2.13 m??? Physical Exam General: Awake, alert, NAD Pulm: Breath sounds clear to ascultation bilaterally with no wheeze, crackles or rhonchi Cards: Regular rate and rhythm, S1, S2. No S3 or S4 gallop. Murmur: none Extr: Lower extremity edema: trace. Skin: warm, dry, well perfused Neuro: A&Ox3, No gross deficits Allergies Allergies Allergen Reactions Metformin Unknown Sulfa (Sulfonamide Antibiotics) Unknown Medications Current Outpatient Medications: aspirin 81 mg EC tablet, Take 1 tablet by mouth in the morning., Disp: , Rfl: glipiZIDE (Glucotrol) 5 mg tablet, Take 5 mg by mouth., Disp: , Rfl: ipratropium (Atrovent) 21 mcg (0.03 %) nasal spray, SPRAY 1 SPRAY IN EACH NOSTRIL FOUR TIMES A DAY NEEDED, Disp: , Rfl: levothyroxine (Synthroid, Levoxyl) 75 mcg tablet, Take 75 mcg by mouth in the morning., Disp: , Rfl: losartan-hydrochlorothiazide (Hyzaar) 100-25 mg tablet, Take by mouth., Disp: , Rfl: metoprolol tartrate (Lopressor) 25 mg tablet, Take 1 tablet by mouth in the morning and at bedtime., Disp: , Rfl: metoprolol tartrate (Lopressor) 25 mg tablet, Take 1 tablet (25 mg) by mouth in the morning and at bedtime., Disp: 180 tablet, Rfl: 3 Recent Labs Reports recent labs through PCP, will obtain copy. Imaging and other tests Echocardiogram: 05/02/2023 Normal left ventricular size and function. LVEF is 55% Normal right ventricular size and function Normal diastolic function Mild to moderate biatrial dilatation Mild tricuspid regurgitation Normal right-sided pressures Moderately dilated ascending aorta measuring 4.2 cm Assessment Diagnoses and all orders for this visit: Ascending aorta dilatation (CMS/HCC) Primary hypertension - metoprolol tartrate (Lopressor) 25 mg tablet; Take 1 tablet (25 mg) by mouth in the morning and at bedtime. Palpitations Diabetes mellitus type II, non insulin dependent (CMS/HCC) Plan 1. Ascending aorta dilatation -Stable dilatation of the aorta measuring 4.2 cm which is similar in comparison to echocardiogram a year ago. She is maintained on losartan and metoprolol titrate. Continue to follow with echo monitoring. 2. Hypertension -Well-controlled, continue metoprolol titrate 25 mg twice daily and losartan- hydrochlorothiazide. She is uncertain of the combination dose she is taking. Will attempt to verify through her PCP. 3. Palpitations -Controlled on current dose metoprolol. 4. Type 2 diabetes mellitus -On glipizide, follows with PCP. Follow up in about 1 year (around 05/29/2024). Delmar Douglas APRN-EVAN [facility] 05-13-2023 Hospital Discharge instructions Follow Up Care 05/13/2023 10:54:30 With:Mariah Amin Address: [address] [address]- [phone] Business (1) When: Unknown Comments:Proceed with Colonoscopy as scheduled on 07/11/23.Arrange for CT guided bone marrow biopsy for thrombocytopenia, leukopenia, suspect MDS.RTC with me 3 weeks aftger bone marrow biopsy. CBCD on return day with me. [facility] 04-29-2023 Hospital Discharge instructions Follow Up Care 04/29/2023 10:41:22 With:Mariah Amin Address: [address] [address]- [phone] Business (1) When: Unknown Comments:We will obtain peripheral blood flow cytometry for leukemia lymphoma panel.We will obtain citrated platelet count.We will obtain platelet antibodies.If all of the above are unremarkable would follow observation for the next 1 month with CBC with differential every 2 weeks and have her return in 1 month to discuss the need for bone marrow biopsy if her platelet count continue to deteriorate to tolerate. At that point my highly suspicion will be is MDS if citrated platelet and the platelet antibodies and the peripheral blood flow cytometry are normal. [facility] 04-18-2023 Hospital Discharge instructions Follow Up Care 04/18/2023 13:20:05 With:Mariah Amin Address: [address] [address]- [phone] Business (1) When: Unknown Comments:We will check CBC with differential CMP P[facility] flow, LDH, peripheral blood flow cytometry, B12 level, folate, iron studies, copper, ILANA, rheumatoid factor, and platelet antibodies.Return to office in 2 weeks for results. [facility] Evaluation + Plan note Future Appointments Appointment Date:09/16/2023 01:00:00 PM Scheduled Provider: Location:[facility] Appointment Type: Medicare Wellness Subsequent Appointment Date:09/16/2023 02:20:00 PM Scheduled Provider:Willian Barrios MD Location:[facility] Appointment Type: Open Future Scheduled TestsMA Mamm Screen w/CAD if perf and 3D Michael 03/17/23 [facility] Evaluation + Plan note Future Appointments Appointment Date:05/13/2023 10:00:00 AM Scheduled Provider: Location:.ONCOLOGY Appointment Type:ONC Office Visit 30 (FT) Appointment Date:06/30/2023 11:20:00 AM Scheduled Provider:Willian Barrios MD Location:[facility] [facility] App[facility] Type: Open Appointment Date:09/16/2023 01:00:00 PM Scheduled Provider: Location:[facility] Appointment Type: Medicare Wellness Subsequent Appointment Date:09/16/2023 02:20:00 PM Scheduled Provider:Willian Barrios MD Location:[facility] Appointment Type: Open Future Scheduled TestsMA Mamm Screen w/CAD if perf and 3D Michael 03/17/23 [facility] Evaluation + Plan note Future Appointments Appointment Date:06/17/2023 10:30:00 AM Scheduled Provider: Location:.[facility] Appointment Type:ONC Office Visit 30 (FT) Appointment Date:06/30/2023 11:20:00 AM Scheduled Provider:Willian Barrios MD Location:[facility] Appointment Type: Open Appointment Date:09/16/2023 01:00:00 PM Scheduled Provider: Location:[facility] Appointment Type: Medicare Wellness Subsequent Appointment Date:09/16/2023 02:20:00 PM Scheduled Provider:Willian Barrios MD Location:[facility] Appointment Type: Open Future Scheduled TestsCBC w/ Auto Diff 05/27/23CBC w/ Auto Diff 06/10/23MA Mamm Screen w/CAD if perf and 3D Michael 03/17/23 [facility] Evaluation + Plan note Future Appointments Appointment Date:06/17/2023 10:30:00 AM Scheduled Provider: Location:.[facility] Appointment Type:ONC Office Visit 30 (FT) Appointment Date:06/30/2023 11:20:00 AM Scheduled Provider:Willian Barrios MD Location:[facility] Appointment Type: Open Appointment Date:09/16/2023 01:00:00 PM Scheduled Provider: Location:[facility] Appointment Type: Medicare Wellness Subsequent Appointment Date:09/16/2023 02:20:00 PM Scheduled Provider:Willian Barrios MD Location:[facility] Appointment Type: Open Diagnostic Tests PendingComp panel: Leuk/Lym [id number] 05/13/23 Future Scheduled TestsCBC w/ Auto Diff 05/27/23CBC w/ Auto Diff 06/10/23MA Mamm Screen w/CAD if perf and 3D Michael 03/17/23 [facility] Evaluation + Plan note Future Appointments Appointment Date:06/17/2023 10:30:00 AM Scheduled Provider: Location:.[facility] Appointment Type:ONC Office Visit 30 (FT) Appointment Date:06/30/2023 11:20:00 AM Scheduled Provider:Willian Barrios MD Location:[facility] Appointment Type:FM Open Appointment Date:09/16/2023 01:00:00 PM Scheduled Provider: Location:[facility] Appointment Type: Medicare Wellness Subsequent Appointment Date:09/16/2023 02:20:00 PM Scheduled Provider:Willian Barrios MD Location:[facility] Appointment Type: Open Future Scheduled TestsCBC w/ Auto Diff 06/10/23MA Mamm Screen w/CAD if perf and 3D Michael 03/17/23 [facility] Evaluation + Plan note Future Appointments Appointment Date:06/17/2023 10:30:00 AM Scheduled [facility] Office Visit 30 (FT) Appointment Date:06/30/2023 11:20:00 AM Scheduled Provider:Willian Barrios MD Location:[facility] Appointment Type: Open Appointment Date:07/10/2023 09:45:00 AM Scheduled Provider: Location:[facility] Appointment Type:Surgery FT Appointment Date:09/16/2023 01:00:00 PM Scheduled Provider: Location:[facility] Appointment Type: Medicare Wellness Subsequent Appointment Date:09/16/2023 02:20:00 PM Scheduled Provider:Willian Barrios MD Location:[facility] Appointment Type: Open Future Scheduled TestsCBC w/ Auto Diff 06/10/23MA Mamm Screen w/CAD if perf and 3D Michael 03/17/23 [facility] Evaluation + Plan note Future Appointments Appointment Date:06/17/2023 10:30:00 AM Scheduled Provider: Location:.[facility] Appointment Type:ONC Office Visit 30 (FT) Appointment Date:06/30/2023 11:20:00 AM Scheduled Provider:Willian Barrios MD Location:[facility] Appointment Type: Open Appointment Date:07/10/2023 09:30:00 AM Scheduled Provider: Location:[facility] Appointment Type:Surgery FT Appointment Date:09/16/2023 01:00:00 PM Scheduled Provider: Location:[facility] Appointment Type: Medicare Wellness Subsequent Appointment Date:09/16/2023 02:20:00 PM Scheduled Provider:Willian Barrios MD Location:[facility] Appointment Type:FM Open Future Scheduled TestsMA Mamm Screen w/CAD if perf and 3D Michael 03/17/23 [facility] Evaluation + Plan note Future Appointments Appointment Date:06/30/2023 11:20:00 AM Scheduled Provider:Willian Barrios MD Location:[facility] Appointment Type: Open Appointment Date:07/22/2023 09:30:00 AM Scheduled Provider[facility] Type:ONC Office Visit 30 (FT) Appointment Date:07/24/2023 10:00:00 AM Scheduled Provider: Location:[facility] Appointment Type:Surgery FT Appointment Date:08/29/2023 11:00:00 AM Scheduled Provider: Location:[facility] Appointment Type: Medicare Wellness Subsequent Appointment Date:09/16/2023 02:20:00 PM Scheduled Provider:Willian Barrios MD Location:[facility] Appointment Type: Open Future Scheduled TestsCBC w/ Auto Diff 07/22/23MA Mamm Screen w/CAD if perf and 3D Michael 03/17/23 [facility] Evaluation + Plan note Future Appointments Appointment Date:07/22/2023 09:30:00 AM Scheduled Provider[facility] Type:ONC Office Visit 30 (FT) Appointment Date:07/24/2023 10:00:00 AM Scheduled Provider: Location:[facility] Appointment Type:Surgery FT Appointment Date:08/29/2023 11:00:00 AM Scheduled [facility]: Medicare Wellness Subsequent Appointment Date:09/16/2023 02:20:00 PM Scheduled Provider:Willian Barrios MD Location:[facility] Appointment Type: Open Appointment Date:09/29/2023 11:20:00 AM Scheduled Provider:Willian Barrios MD Location:[facility] Appointment Type: Open Future Scheduled TestsMA Mamm Screen w/CAD if perf and 3D Michael 03/17/23 [facility] Evaluation + Plan note Future Appointments Appointment Date:08/29/2023 11:00:00 AM Scheduled Provider: Location:[facility] Appointment Type: Medicare Wellness Subsequent Appointment Date:09/16/2023 02:20:00 PM Scheduled Provider:Willian Barrios MD Location:[facility] Appointment Type: Open Appointment Date:09/23/2023 10:00:00 AM Scheduled Provider: Location:.[facility] Appointment Type:ONC Office Visit 30 (FT) Appointment Date:09/29/2023 11:20:00 AM Scheduled Provider:Willian Barrios MD Location:[facility] Appointment Type: Open Appointment Date:10/01/2023 12:40:00 PM Scheduled Provider:Ashlie Mead CNP Location:[facility] Appointment Type:[facility] Follow Up Future Scheduled TestsHep B Core Ab, IgM 09/16/23HCV Antibody RFX to Quant PCR 09/16/23HIV Screen 4th Generation wRfx 09/16/23CBC w/ Auto Diff 09/16/23CBC w/ Auto Diff 07/31/23Comprehensive Metabolic Panel 09/16/23Ferritin 09/16/23Folate Level 09/16/23Hepatitis A Antibody IgM 09/16/23Hepatitis B Surface Antibody 09/16/23Hepatitis B Surface Antigen 09/16/23Iron Level 09/16/23Iron Percent Saturation 09/16/23Lactate Dehydrogenase 09/16/23Transferrin 09/16/23Vitamin B12 Level 09/16/23MA Mamm Screen w/CAD if perf and 3D Michael 03/17/23 [facility] Evaluation + Plan note Future Appointments Appointment Date:09/16/2023 02:20:00 PM Scheduled Provider:Willian Barrios MD Location:[facility] Appointment Type: Open Appointment Date:09/23/2023 10:00:00 AM Scheduled Provider: [facility] Type:ONC Office Visit 30 (FT) Appointment Date:09/29/2023 11:20:00 AM Scheduled Provider:Willian Barrios MD Location:[facility] Appointment Type: Open Appointment Date:10/01/2023 12:40:00 PM Scheduled Provider:Ashlie Mead CNP Location:[facility] Appointment Type:BADH Follow Up Appointment Date:08/31/2024 11:00:00 AM Scheduled Provider: Location:[facility] Appointment Type: Medicare Wellness Subsequent Diagnostic Tests PendingHIV Screen 4th Generation wRfx 09/15/23HCV Antibody RFX to Quant PCR 09/15/23Hepatitis B Surface Antigen 09/15/23Hepatitis B Surface Antibody 09/15/23Hep B Core Ab, IgM 09/15/23Hepatitis A Antibody IgM 09/15/23 Future Scheduled TestsCBC w/ Auto Diff 07/31/23MA Mamm Screen w/CAD if perf and 3D Michael 03/17/23 [facility] Evaluation + Plan note Future Appointments Appointment Date:01/15/2024 09:00:00 AM Scheduled Provider: Location:[facility] Appointment Type:Surgery FT Appointment Date:03/29/2024 10:30:00 AM Scheduled Provider:Willian Barrios MD Location:[facility] Appointment Type: Open Appointment Date:08/31/2024 11:00:00 AM Scheduled Provider: Location:[facility] Appointment Type: Medicare Wellness Subsequent Future Scheduled TestsCBC w/ Auto Diff 10/01/23CBC w/ Auto Diff 07/31/23MA Mamm Screen w/CAD if perf and 3D Michael 03/17/23 [facility] course Narrative No data available for this section [facility] Hospital Discharge instructions No data available for this section [facility] Progress note No data available for this section [facility] Summary Purpose Family History No Family History Records FoundNo Family History Records FoundNo Family History Records Found No data available for this section No data available for this section No data available for this section No Family History Records Found Advance Directives No Advanced Directives Records FoundNo Advanced Directives Records FoundNo Advanced Directives Records FoundNo Advanced Directives Records Found Additional Source Comments INFORMATION SOURCE (unrecogn ized section and content) DATE CREATED AUTHOR 10/31/2018 [facility] DATE CREATED AUTHOR AUTHOR'S ORGANIZ ATION 09/24/2022 [facility] DATE CREATED AUTHOR AUTHOR'S ORGANIZ ATION 05/30/2023 [facility] DATE CREATED AUTHOR AUTHOR'S ORGANIZ ATION 10/04/2023 [facility] Patient Care team informatio n (unrecognized section and content) Personnel Name: FERNY HUDDLESTON MD Address: Address: [address] [place] [address] Personnel Name: Willian Barrios MD Address: Address: [address] [place] [address] Personnel Name: Willian Barrios MD Address: Address: [address] [place] [address] Personnel Name: Willian Barrios MD Address: Address: [address] [place] [address] Personnel Name: Willian Barrios MD Address: Address: [address] [place] [address] Personnel Name: Willian Barrios MD Address: Address: [address] [place] [address] Personnel Name: Willian Barrios MD Address: Address: [address] [place] [address] Personnel Name: Willian Barrios MD Address: Address: [address] [place] [address] Personnel Name: Willian Barrios MD Address: Address: [address] [place] [address] Personnel Name: Willian Barrios MD Address: Address: [address] [place] [address] Personnel Name: Willian Barrios MD Address: Address: [address] [place] [address] Personnel Name: Willian Barrios MD Address: Address: [address] [place] [address]- Personnel Name: Willian Barrios MD Address: Address: [address] [place] [address]- FOR RECORDS PERTAINING TO PATIENTS WHO ARE OR HAVE BEEN ENROLLED IN A CHEMICAL DEPENDENCY/SUBSTANCEABUSE PROGRAM, SOME INFORMATION MAY BE OMITTED. This clinical summary was aggregated from multiple sources. Caution should be exercised in using it in the provision of clinical care. This summary normalizes information from multiple sources, and as a consequence, information in this document may materially change the coding, format and clinical context of patient data. In addition, data may be omitted in some cases. CLINICAL DECISIONS SHOULD BE BASED ON THE PRIMARY CLINICAL RECORDS. [facility] provides no warranty or guarantee of the accuracy or completeness of information in this document.
--- NOTE | 2023-11-20 11:18 | XR_ITS ---
The [address] [address] Patient Name: CALI SANTOS MRN: [id number] date: 1955 Sex: F Assigned Patient Location: [facility] Current Patient Location: [facility] Accession/Order Number: [id number] Exam Date: 11/20/2023 11:08 Report Date: 11/20/2023 11:28 At the request of: KAI JARQUIN Procedure: XR DEXA axial skeleton EXAMINATION: XR DEXA axial skeleton, 11/20/2023 11:08 AM EST HISTORY: Primary Ovarian Failure COMPARISON: None. TECHNIQUE: Dual-energy X-ray absorptiometry (DEXA) bone density study performed for the axial skeleton. HISTORY: Primary Ovarian Failure FINDINGS: Bone mineral density AP spine L1-L4 measures 1.094 g/sq cm. T score -0.7. WHO classification: Normal. The lowest bone mineral densities the left femoral neck measuring 0.765 g/sq cm. T score -2.0. WHO classification: Osteopenia XR/XR DEXA axial skeleton IMPRESSION: Osteopenia. Moderate fracture risk Electronically authenticated by: SLY SOUSA Date: 11/20/2023 11:28
== END 2023-11-20 10:45 | disposition home or self-care (01) ==
LOC: MAMMO 10:45
PROVIDERS: PCP Family Medicine; Visit Provider Family Medicine
DX: Z00.00 Encounter for general adult medical examination without abnormal findings (principal); Z12.31 Encounter for screening mammogram for malignant neoplasm of breast; E28.39 Other primary ovarian failure; Z80.8 Family history of malignant neoplasm of other organs or systems; M85.80 Other specified disorders of bone density and structure, unspecified site
CPT/HCPCS: 77063; 77067; 77080

== ENCOUNTER 2024-05-27 14:06 | Inpatient (IN) | payer MEDICARE, OTHER, SELFPAY ==
[2024-05-27] VITALS (14 sets, daily range): BP systolic 89–135; BP diastolic 54–81; PULSE 53–74; TEMP 36.6–37.1; O2SAT 90–96; BMI 50.4; BMI 51.1
--- NOTE | 2024-05-27 14:32 | ECG_ITS ---
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: : 1955 Requested By: [id number] Order Number: [id number] Reading MD: JOHN ORTEGA Measurements Intervals [place] Rate: 70 P: -58544 VA: -42117 QRS: -13 QRSD: 124 T: -30 QT: 406 QTc: 427 Interpretive Statements SINUS RHYTHM 2420 RSR (QR) in lead V1/V2, consistent with right ventricular conduction delay 3334 Anterolateral myocardial infarction, age undetermined 3634 Inferior myocardial infarction, age undetermined 9150 abnormal ECG Compared to ECG 04/07/2021 14:39:01 Sinus rhythm no longer present Myocardial infarct finding still present Electronically Signed On 05-28-2024 6:07:38 EDT by JOHN ORTEGA
--- NOTE | 2024-05-27 14:32 | XR_ITS ---
The [address] [address] Patient Name: CALI SANTOS MRN: [id number] date: 1955 Sex: F Assigned Patient Location: ER Current Patient Location: ER Accession/Order Number: [id number] Exam Date: 05/27/2024 14:38 Report Date: 05/27/2024 14:58 At the request of: MARY HERNANDEZ Procedure: XR chest 1V EXAMINATION: XR chest 1V HISTORY: cough COMPARISON: XR chest 09/24/2023 FINDINGS: LUNGS: Underexpanded lungs with mild stranding within right lung base. VASCULATURE: No increased pulmonary vasculature. PLEURA: No pneumothorax, effusion, or pleural thickening. CARDIAC: No cardiomegaly or cardiac silhouette abnormality. MEDIASTINUM: No visible mass or adenopathy. BONES: No fracture or visible bone lesion. OTHER: Negative. XR/XR chest 1V IMPRESSION: 1. Low lung volume examination with trace amount of right basilar atelectasis versus infiltrates; new since prior study. Electronically authenticated by: KAPIL AGUILAR Date: 05/27/2024 14:58
--- NOTE | 2024-05-27 14:36 | ED_ITS ---
<Statement entered by Laurita Hoffmann MD - 05/27/24 18:55> This documentation has been reviewed and approved. HPI - SOB/Dyspnea General Chief Complaint: Upper Respiratory Infection Stated Complaint: URTI COMPLAINT/SHORTNESS OF BREATH Time Seen by Provider: 05/27/24 14:27 Source: patient Mode of arrival: walk-in History of Present Illness HPI Narrative: 69 year old female presents to the ED for a productive cough, SOB, wheezing. Onset was March,. She is awaiting testing for asthma/COPD. Reports chills, diarrhea today. Denies fever, edema, emesis. States her sputum is white. She appears in mild distress. She denies use of tobacco. Related Data Home Medications ?Medication ?Instructions ?Recorded ?Confirmed albuterol sulfate 90 mcg/actuation 2 puff inhalation Q6H PRN 05/27/24 05/27/24 aerosol inhaler shortness of breath or wheezing atorvastatin 40 mg tablet 40 mg PO DAILY 05/27/24 05/27/24 fluticasone propionate 50 2 spray intranasal DAILY 05/27/24 05/27/24 mcg/actuation nasal spray,suspension glipizide 5 mg tablet 5 mg PO DAILY 05/27/24 05/27/24 levothyroxine 75 mcg tablet 75 mcg PO DAILY 05/27/24 05/27/24 losartan 100 1 tab PO DAILY 05/27/24 05/27/24 mg-hydrochlorothiazide 25 mg tablet metoprolol tartrate 25 mg tablet 25 mg PO BID 05/27/24 05/27/24 Allergies Allergy/AdvReac Type Severity Reaction Status Date / Time Sulfa (Sulfonamide Allergy Severe Hives Verified 05/27/24 14:24 Antibiotics) Review of Systems ROS Constitutional Reports: chills and fatigue; Denies: fever Ears, nose, mouth, and throat Denies: throat pain or neck pain Cardiovascular Denies: chest pain, palpitations, edema or swelling of feet/ankles Respiratory Reports: shortness of breath, cough and wheezing Gastrointestinal Reports: diarrhea; Denies: abdominal pain, nausea or vomiting Genitourinary Denies: painful urination Musculoskeletal Denies: back pain or neck pain Integumentary/Breast Denies: rash Neurological Denies: headache, weakness in extremities or dizziness PFSH PFS Medical History (Updated 05/27/24 @ 17:42 by Mandy Smith) Hypothyroid ?E03.9 - Hypothyroidism, unspecified (ICD-10) Leaky heart valve ?I38 - Endocarditis, valve unspecified (ICD-10) Diabetes ?E11.9 - Type 2 diabetes mellitus without complications (ICD-10) HTN (hypertension) ?I10 - Essential (primary) hypertension (ICD-10) Surgical History (Updated 05/27/24 @ 18:28 by Sweetie Mroel, RN) H/O: hysterectomy ?Z90.710 - Acquired absence of both cervix and uterus (ICD-10) History of carpal tunnel release ?Z98.890 - Other specified postprocedural states (ICD-10) Previous section ?Z98.891 - History of uterine scar from previous surgery (ICD-10) Family History (Updated 05/27/24 @ 18:30 by Sweetie Morel, RN) Mother Family history of cancer Father Family history of diabetes mellitus Grandmother Family history of stroke Social History (Updated 05/27/24 @ 18:30 by Sweetie Morel, RN) Within the past year, how often did you have a drink containing alcohol: never Score interpretation: A score less than 3 is consistent with normal alcohol consumption. Smoking status: Never smoker Non-prescribed substance use: denies use Highest level of school completed/degree received: high school graduate Exam Constitutional Vital Signs, click to edit/add: Last Vital Signs Temp 98.2 F 05/27/24 18:33 Pulse 71 05/27/24 18:33 Resp 22 H 05/27/24 18:33 BP 110/54 05/27/24 18:33 Pulse Ox 93 L 05/27/24 18:33 O2 Del Method Room Air 05/27/24 18:33 Common normals: no apparent distress and oriented x3 General appearance: cooperative HENMT Nose: external nose normal and nasal discharge Mouth: oral and palatal mucosa normal, lip normal and tongue normal Throat: posterior oropharynx normal Eye Common normals: conjunctivae normal and no scleral icterus Neck & C-Spine Common normals: supple Chest Chest: symmetrical chest wall rise Respiratory Common normals: normal respiratory effort Effort & inspection: able to speak in complete sentences and actively coughing Auscultation: wheezes Cardio Common normals: regular rate and regular rhythm Neuro Common normals: oriented x3 and moves all extremities Course Vital Signs Vital signs: Vital Signs Temperature 98.7 F 05/27/24 14:16 Pulse Rate 74 05/27/24 14:16 Respiratory Rate 24 H 05/27/24 14:16 Blood Pressure 135/81 05/27/24 14:16 Pulse Oximetry 96 05/27/24 14:16 Oxygen Delivery Method Room Air 05/27/24 14:16 Temperature 98.2 F 05/27/24 18:33 Pulse Rate 71 05/27/24 18:33 Respiratory Rate 22 H 05/27/24 18:33 Blood Pressure 110/54 05/27/24 18:33 Pulse Oximetry 93 L 05/27/24 18:33 Oxygen Delivery Method Room Air 05/27/24 18:33 MDM - SOB/Dyspnea MDM Narrative Medical decision making narrative: Chest x-ray showed low lung volume examination with trace amount of right basilar atelectasis versus infiltrates. She was given IV antibiotics and albuterol with little improvement. She will be admitted for further evaluation and treatment. I spoke with Dr. Enriquez who accepted the patient for admission. Differential Diagnosis Differential diagnosis: Likely acute exacerbation of chronic obstructive airways disease, congestive heart failure, community acquired pneumonia and asthma with exacerbation Medical Records Attestation: I reviewed the patient's medical records. Lab Data Attestation: I reviewed the patient's lab results. Labs: Lab Results 05/27/24 05/27/24 05/27/24 Range/Units 14:28 14:30 17:31 WBC 4.4 (4.0-11.0) 10^3/uL RBC 3.38 L (4.20-5.40) 10^6/uL Hgb 10.9 L (12.0-16.0) g/dL Hct 33.1 L (36.0-48.0) % MCV 97.9 (81.0-99.0) fL MCH 32.2 (26.7-34.0) pg MCHC 32.9 (29.9-35.2) g/dL RDW 12.4 (11.0-15.0) % Plt Count 112 L (150-450) 10^3/uL MPV 10.3 (9.5-13.5) fL Neut % (Auto) 65.6 (43.0-75.0) % Lymph % (Auto) 21.1 (20.5-60.0) % [place]aver % (Auto) 9.7 (1.7-12.0) % Eos % (Auto) 2.5 (0.9-7.0) % Baso % (Auto) 0.9 (0.2-2.0) % Neut # (Auto) 2.9 (1.4-6.5) 10^3/uL Lymph # (Auto) 0.9 L (1.2-3.8) 10^3/uL [place]aver # (Auto) 0.4 (0.3-0.8) 10^3/uL Eos # (Auto) 0.1 (0.0-0.7) 10^3/uL Baso # (Auto) 0.0 (0.0-0.1) 10^3/uL Abs Immat Gran (auto) 0.01 (0.00-0.03) 10^3/uL Imm/Tot Granulo (auto) 0.2 (0.0-0.5) % Sodium 139 (136-145) mmol/L Potassium 3.0 L (3.5-5.1) mmol/L Chloride 102 (98-107) mmol/L Carbon Dioxide 24.7 (21.0-32.0) mmol/L Anion Gap 15.3 BUN 15.0 (7.0-18.0) mg/dL Creatinine 1.58 H (0.55-1.02) mg/dL Est GFR ( Amer) 39 L (>=60) Est GFR (Non-Af Amer) 32 L (>=60) BUN/Creatinine Ratio 9.5 Glucose 162 H (74-106) mg/dL Lactate 3.2 H* 1.6 (0.4-2.0) mmol/L Calcium 9.2 (8.5-10.1) mg/dL NT-Pro-B Natriuret Pep 273.0 (<=900.0) pg/mL Influenza Type A Ag Negative Influenza Type B Ag Negative SARS-CoV-2 Ag (CV2AG) Negative (NEGATIVE) Imaging Data Chest x-ray: Attestation: I have reviewed the pertinent imaging results. Radiologist's impression: ITS Impressions Chest X-Ray 05/27/24 14:32 IMPRESSION: 1. Low lung volume examination with trace amount of right basilar atelectasis versus infiltrates; new since prior study. Electronically authenticated by: KAPIL AGUILAR Date: 05/27/2024 14:58 ECG Data Attestation: ?I have reviewed the pertinent ECG results. Interpretation: Measurements Intervals [place] Rate: 70 P: -[id number] DE: -93336 QRS: -13 QRSD: 124 T: -30 QT: 406 QTc: 427 Interpretive Statements 1901 Undetermined regular rhythm 2420 RSR (QR) in lead V1/V2, consistent with right ventricular conduction delay 3334 Anterolateral myocardial infarction, age undetermined 3634 Inferior myocardial infarction, age undetermined 9150 abnormal ECG No previous ECG available for comparison Discharge Plan Discharge Chief Complaint: Upper Respiratory Infection Clinical Impression: Pneumonia, Dyspnea Patient Disposition: Admitted As Inpatient Time of Disposition Decision: 17:45 Condition: Good Discharge Date/Time: 05/27/24 18:13
[2024-05-27 14:42] LABS: Basophils Percent Auto 0.9 % (0.2-2.0); Eosinophils Absolute Auto 0.1 10^3/uL (0.0-0.7); Eosinophils Percent Auto 2.5 % (0.9-7.0); Hematocrit 33.1 % (36.0-48.0); Hemoglobin 10.9 g/dL (12.0-16.0); Immature Granulocytes Abs Auto 0.01 10^3/uL (0.00-0.03); Immature Granulocytes Pct Auto 0.2 % (0.0-0.5); Lymphocytes Absolute Auto 0.9 10^3/uL (1.2-3.8); Lymphocytes Percent Auto 21.1 % (20.5-60.0); Mean Corpuscular HGB Conc 32.9 g/dL (29.9-35.2); Mean Corpuscular Hemoglobin 32.2 pg (26.7-34.0); Mean Corpuscular Volume 97.9 fL (81.0-99.0); Mean Platelet Volume 10.3 fL (9.5-13.5); Monocytes Absolute Auto 0.4 10^3/uL (0.3-0.8); Monocytes Percent Auto 9.7 % (1.7-12.0); Neutrophils Absolute Auto 2.9 10^3/uL (1.4-6.5); Neutrophils Percent Auto 65.6 % (43.0-75.0); Platelet Count 112 10^3/uL (150-450); Red Blood Count 3.38 10^6/uL (4.20-5.40); Red Cell Distribution Width 12.4 % (11.0-15.0); White Blood Count 4.4 10^3/uL (4.0-11.0)
--- OUTSIDE RECORDS SUMMARY | 2024-05-27 14:42 | XMS_ITS | CCD ---
Author Organization [facility] Care Team Providers Care Packing Supervisor Name Role Phone PHYSICIAN, DEFAULT Admitting Unavailable PHYSICIAN, DEFAULT Attending Unavailable SELF, REFERRED Primary Care Unavailable FLAQUITO, DR FERNY Siegel Primary Care Unavailable REANNA VALDOVINOSA Admitting Unavailable REANNA VALDOVINOSA Attending Unavailable REANNA VALDOVINOSA Consulting Unavailable ARUNA, HOLLY Admitting Unavailable HOLLY VALDOVINOS Attending Unavailable HOLLY VALDOVINOS Consulting Unavailable FLAQUITO, DR FERNY Siegel Primary Care Unavailable HOLLY VALDOVINOS Attending Unavailable HOLLY VALDOVINOS Consulting Unavailable REANNA VALDOVINOSA Admitting Unavailable HUDDLESTON, DR FERNY Siegel Primary Care Unavailable HUDDLESTON, DR FERNY Siegel Admitting Unavailable HUDDLESTON, DR FERNY Siegel Attending Unavailable HUDDLESTON, DR FERNY Siegel Consulting Unavailable HUDDLESTON, DR FERNY Siegel Primary Care Unavailable HUDDLESTON, DR FERNY Siegel Primary Care Unavailable HUDDLESTON, DR FERNY Siegel Admitting Unavailable HUDDLESTON, DR FERNY Siegel Attending Unavailable HUDDLESTON, DR FERNY Siegel Consulting Unavailable FLAQUITO, DR FERNY Siegel Admitting Unavailable HUDDLESTON, DR FERNY Siegel Attending Unavailable HUDDLESTON, DR FERNY Siegel Consulting Unavailable FLAQUITO, DR FERNY Siegel Primary Care Unavailable ARUNA, HOLLY Admitting Unavailable HOLLY VALDOVINOS Attending Unavailable HOLLY VALDOVINOS Consulting Unavailable FLAQUITO, DR FERNY Siegel Primary Care Unavailable FERNY HUDDLESTON Primary Care Physician Willian Barrios Primary Care Physician DELMAR CORDOVA Attending Unavailable Lucas Bates Attending Unavailable Lucas Bates Admitting Unavailable Deborah Rashid Referring Unavaila ble Mariah Amin Attending UnavailGODFREY Acuna Referring Unavailable Mariah Amin Attending Unavailabl e Ashlie Mead Attending Unavailable Deborah Rashidal Attending Unavaila ble Deborah Rashid Talal Attending Unavaila ble Willian Barrios Attending Unavailable Willian Barrios Attending Unavailable Al-Marradawson, Mariah Davison Attending Unavailabl e Al-Marradawson, Mariah Yaser Attending Unavailabl Willian Walker Attending Unavailable GODFREY Baumann Attending Unavailable Willian Barrios Attending Unavailable Willian Barrios Attending Unavailable Willian Barrios Attending Unavailable Willian Barrios Attending Unavailable Al-Marradawson, Mariah Davison Attending Unavailabl e Al-Marradawson, Mariah Yaser Admitting Unavailabl e Willian Barrios Attending Unavailable Willian Barrios Admitting Unavailable Al-Marmiguel, Mariah Davison Attending Unavailabl e Al-Marradawson, Mariah Yaser Admitting Unavailabl Willian Walker Admitting Unavailable Ashlie Mead Attending Unavailable Al-Marradawson, Mariah Davison Attending Unavailabl e Al-Marradawson, Mariah Davison Attending Unavailabl e Marcelmincheng, Deborah Talal Referring Unavaila ble MarcelminDeborah anand Talal Attending Unavaila ble Marcelmincheng, Cabrera Talal Admitting Unavaila ble Al-Marradawson, Mariah Yaser Referring Unavailabl e Al-Marrawi, Mariah Yaser Attending Unavailabl e Al-Marrawi, Mariah Yaser Admitting Unavailabl e Al-Marrawi, Mariah Yaser Attending Unavailabl e Al-Marrawi, Lennyd Yaser Admitting Unavailabl e Willian Barrios Attending Unavailable Willian Barrios Attending Unavailable Willian Barrios Attending Unavailable Al-Marrawi, Mariah Yaser Attending Unavailabl e Al-Marrawi, Mariah Yaser Admitting Unavailabl e Al-Marrawi, Lennyd Yaser Attending Unavailabl e Al-Marrawi, Lennyd Yaser Admitting Unavailabl e Al-Marrawi, Lennyd Yaser Attending Unavailabl e Al-Marrawi, Lennyd Yaser Admitting Unavailabl e Al-Marrawi, Lennyd Yaser Attending Unavailabl e Al-Marrawi, Lennyd Yaser Admitting Unavailabl e MD Mariah Amin Admitting Unavail able MD Mariah Amin Attending Unavail able Willian Barrios Attending Unavailable HUMPHREY HUFFMAN Attending Unavailable Willian Barrios Admitting Unavailable Willian Barrios Attending Unavailable Willian Barrios Referring Unavailable Allergies Allergy Classification Reported Allergen(s) Allergy Type Date of Onset Reaction(s) Facility metFORMIN (1 source) metFORMIN; Translations: [metformin] Drug Allergy Dizziness (finding), Unknown (qualifier value) [facility] Sulfonamides (antibiotic) (1 source) Sulfonamides (Antibiotic); Translations: [sulfa drugs] Drug Allergy Unknown (qualifier value) [facility] (3 sources) Sulfonamides (Antibiotic); Translations: [SULFA (SULFONAMIDE ANTIBIOTICS)] Drug allergy (disorder) 6 [facility] Repository (4 sources) metFORMIN; Translations: [METFORMIN] Drug Allergy 1 [facility] Repository (19 sources) metFORMIN; Translations: [metformin] Drug Allergy Unknown (qualifier value), Dizziness (finding) [facility] (20 sources) Sulfonamides (Antibiotic); Translations: [sulfa drugs] Drug allergy Unknown (qualifier value) [facility] Medications Current Medications Medication Drug Class(es) Dates Sig (Normalized) Sig (Original) Albuterol (Eqv-ProAir HFA) 90 mcg/inh inhalation aerosol (11 sources) Start: 06-30-2023 take 2 puff(s) by inhalation every six hours Albuterol (Eqv-ProAir HFA) 90 mcg/inh inhalation aerosol 2 puff(s), Inhalation, q6hr, 18 gm, Refill(s) 0, [facility]/pharmacy #[id number], 150, cm, 06/30/23 11:19:00 EDT, Height/Length Dosing, 112.8, kg, 06/30/23 11:19:00 EDT, Weight Dosing Start Date: 06/30/23 Status: Ordered aspirin 81 mg oral capsule (20 sources) Platelet Aggregation Inhibitor, Nonsteroidal Anti-inflammatory Drug Start: 02-07-2023 take 1 capsule by mouth once daily aspirin 81 mg oral capsule 81 mg = 1 cap(s), Oral, Daily, Refills(s) 0 Start Date: 02/07/23 Status: Ordered atorvastatin 40 mg oral tablet (11 sources) HMG-CoA Reductase Inhibitor Start: 09-22-2023 take 1 tablet by mouth once daily atorvastatin 40 mg Tab See Instructions, TAKE 1 TABLET BY MOUTH EVERY DAY, # 90 tab(s), Refills(s) 0, Pharmacy: [facility] [id number], 152, cm, 09/17/23 13:20:00 EST, Height/Length Dosing, 11.2, kg, 09/17/23 13:20:00 EST, Weight Dosing Start Date: 09/22/23 Status: Ordered Start: 06-30-2023 take 1 tablet by leela once daily Lipitor 40 mg Tab 40 mg = 1 tab(s), Oral, Daily, # 90 tab(s), Refills(s) 0, [id number], 150, cm, 06/30/23 11:19:00 EDT, Height/Length Dosing, 112.8, kg, 06/30/23 11:19:00 EDT, Weight Dosing Start Date: 06/30/23 Status: Ordered Beclomethasone Dipropionate 0.08 MG/ACTUAT Metered Dose Inhaler (4 sources) Corticosteroid Start: 01-06-2024 take 2 puff(s) by inhalation twice daily beclomethasone 80 mcg/inh Inh Aer w/Adapt 2 puff(s), Inhalation, BID, 10.6 gm, Refill(s) 1, [facility]/pharmacy #[id number], 152, cm, 01/02/24 11:02:00 EDT, Height/Length Dosing, 112.3, kg, 01/02/24 11:02:00 EDT, Weight Dosing Start Date: 01/06/24 Status: Ordered Budesonide 0.09 MG/ACTUAT Dry Powder Inhaler (7 sources) Corticosteroid Start: 09-25-2023 budesonide 90 mcg/inh inhalation powder 1 inh, Inhalation, BID, 1 EA, Refill(s) 11, [facility]/pharmacy #[id number], 152, cm, 09/24/23 14:41:00 EST, Height/Length Dosing, 109.8, kg, 09/24/23 14:41:00 EST, Weight Dosing Start Date: 09/25/23 Status: Ordered calcium carbonate 1250 mg oral tablet (7 sources) Start: 12-15-2023 calcium 500 mg tablets 1,250 mg = 1 tab(s), Oral, BID, Refills(s) 0, Prophylaxis Start Date: 12/15/23 Status: Ordered ferrous sulfate 325 mg delayed release oral tablet (7 sources) Start: 12-15-2023 take 1 tablet by mouth once daily ferrous sulfate 325 mg oral enteric coated tablet 325 mg = 1 tab(s), Oral, Daily, # 30 tab(s), Refills(s) 0 Start Date: 12/15/23 Status: Ordered fluticasone propionate 0.05 mg/actuat metered dose nasal spray (8 sources) Corticosteroid Start: 04-12-2024 fluticasone Nasal 0.05 mg/inh [place] See Instructions, 48 mL, Refill(s) 1, INSTILL 2 SPRAYS IN EACH NOSTRIL ONCE A DAY, [id number], 152, cm, 03/29/24 10:40:00 EDT, Height/Length Dosing, 111.8, kg, 03/29/24 10:40:00 EDT, Weight Dosing Start Date: 04/12/24 Status: Ordered Start: 10-16-2023 fluticasone Na robyn 0.05 mg/inh [place] See Instructions, 48 mL, Refill(s) 1, USE 2 SPRAYS IN EACH NOSTRIL ONCE A DAY, [facility] [id number], 152, cm, 10/01/23 12:44:00 EST, Height/Length Dosing, 111.6, kg, 10/01/23 12:44:00 EST, Weight Dosing Start Date: 10/16/23 Status: Ordered Start: 09-24-2023 Flonase 0.05 m g/inh [place] 2 spray(s), Nasal, Daily, 16 gram, Refill(s) 0, each nostril, [facility]/pharmacy #[id number], 152, cm, 09/24/23 14:41:00 EST, Height/Length Dosing, 109.8, kg, 09/24/23 14:41:00 EST, Weight Dosing Start Date: 09/24/23 Status: Ordered glipiZIDE 5 mg oral tablet (20 sources) Sulfonylurea Start: 09-29-2023 take 1 tablet by mouth once daily glipiZIDE 5 mg Tab 5 mg = 1 tab(s), Oral, Daily, # 90 tab(s), Refills(s) 3, [id number], 152, cm, 09/29/23 11:20:00 EST, Height/Length Dosing, 111, kg, 09/29/23 11:20:00 EST, Weight Dosing Start Date: 09/29/23 Status: Ordered Start: 04-22-2023 take 1 tablet by leela once daily glipiZIDE 5 mg Tab 5 mg = 1 tab(s), Oral, Daily, # 90 tab(s), Refills(s) 3, [id number], 150.8, cm, 03/31/23 11:24:00 EDT, Height/Length Dosing, 110, kg, 03/31/23 11:24:00 EDT, Weight Dosing Start Date: 04/22/23 Status: Ordered Start: 02-07-2023 take 1 tablet by leela once daily glipiZIDE 5 mg Tab 5 mg = 1 tab(s), Oral, Daily, Refills(s) 0 Start Date: 02/07/23 Status: Ordered levothyroxine sodium 0.075 mg oral tablet (20 sources) l-Thyroxine Start: 07-28-2023 take 1 tablet by mouth once daily levothyroxine 75 mcg (0.075 mg) Tab 75 mcg = 1 tab(s), Oral, Daily, # 90 tab(s), Refills(s) 3, [id number], 150.8, cm, 07/24/23 9:39:00 EDT, Height/Length Dosing, 114, kg, 07/24/23 9:39:00 EDT, Weight Dosing Start Date: 07/28/23 Status: Ordered Start: 06-09-2023 take 1 tablet by leela once daily levothyroxine 75 mcg (0.075 mg) Tab 75 mcg = 1 tab(s), Oral, Daily, # 90 tab(s), Refills(s) 0, [id number], 150.8, cm, 06/04/23 13:05:00 EDT, Height/Length Dosing, 114, kg, 06/04/23 13:05:00 EDT, Weight Dosing Start Date: 06/09/23 Status: Ordered Start: 02-07-2023 take 1 tablet by leela once daily levothyroxine 75 mcg (0.075 mg) Tab 75 mcg = 1 tab(s), Oral, Daily, Refills(s) 0 Start Date: 02/07/23 Status: Ordered metoprolol tartrate 25 mg oral tablet (20 sources) beta-Adrenergic Phylicia Start: 03-26-2024 End: 05-29-2024 take 1 tablet by mouth twice daily Metoprolol tartrate 25 mg Tab 25 mg = 1 tab(s), Oral, BID, X 60 day(s), # 120 tab(s), Refills(s) 0, Pharmacy: [facility]/pharmacy #[id number], 152, cm, 03/29/24 10:40:00 EDT, Height/Length Dosing, 111.8, kg, 03/29/24 10:40:00 EDT, Weight Dosing Start Date: 03/30/24 Stop Date: 05/29/24 Status: Ordered Start: 02-07-2023 [facility] 1 [facility] Metoprolol tartrate 25 mg Tab 25 mg = 1 tab(s), Oral, BID, Refills(s) 0, High blood pressure Start Date: 02/07/23 Status: Ordered Oystercal-D oral tablet (7 sources) Start: 11-24-2023 Oystercal-D or al tablet 1 tab(s), Oral, BID, 100 tab(s), Refill(s) 2, [facility]/pharmacy #[id number], 152, cm, 10/01/23 12:44:00 EST, Height/Length Dosing, 111.6, kg, 10/01/23 12:44:00 EST, Weight Dosing Start Date: 11/24/23 Status: Ordered polyethylene glycol 3350 [id number] mg / potassium chloride 1480 mg / sodium bicarbonate 5720 mg / sodium chloride 21213 mg powder for oral solution (8 sources) Osmotic Laxative Start: 10-01-2023 NuLYTELY Eliz ry oral powder for reconstitution See Instructions, 1 EA, Refill(s) 0, Prior to colonsocopy., [facility]/pharmacy #[id number], 152, cm, 10/01/23 12:44:00 EST, Height/Length Dosing, 111.6, kg, 10/01/23 12:44:00 EST, Weight Dosing Start Date: 10/01/23 Status: Ordered Start: 06-04-2023 Ya siegel oral powder for reconstitution See Instructions, 1 EA, Refill(s) 0, Oral, [facility]/pharmacy #[id number], 150.8, cm, 06/04/23 13:05:00 EDT, Height/Length Dosing, 114, kg, 06/04/23 13:05:00 EDT, Weight Dosing Start Date: 06/04/23 Status: Ordered Completed/Discontinued Medications Medication Drug Class(es) Dates Sig (Normalized) Sig (Original) hydroCHLOROthiazide 25 mg / losartan potassium 100 mg oral tablet (20 sources) Thiazide Diuretic, Angiotensin 2 Receptor Phylicia Start: 04-12-2024 hydrochlorothia zide-losartan 25 mg-100 mg Tab See Instructions, 90 tab(s), Refill(s) 1, TAKE 1 TABLET BY MOUTH EVERY DAY, [id number], 152, cm, 03/29/24 10:40:00 EDT, Height/Length Dosing, 111.8, kg, 03/29/24 10:40:00 EDT, Weight Dosing Start Date: 04/12/24 Status: Ordered Start: 07-28-2023 hydrochlorothi azide-losartan 25 mg-100 mg Tab 1 tab(s), Oral, Daily, 90 tab(s), Refill(s) 1, [facility]/pharmacy #[id number], 150.8, cm, 07/24/23 9:39:00 EDT, Height/Length Dosing, 114, kg, 07/24/23 9:39:00 EDT, Weight Dosing Start Date: 07/28/23 Status: Ordered Start: 02-07-2023 take 1 tablet by leela th once daily hydrochlorothiazide-losartan 25 mg-100 m g Tab 1 tab(s), Oral, Daily, Refill(s) 0 Start Date: 02/07/23 Status: Ordered Symbicort 160/4.5 inhalation aerosol with adapter (7 sources) Start: 09-25-2023 take 1 dose by inhalation twice daily Symbicort 160/4.5 inhalation aerosol with adapter 2 puff(s), Inhalation, BID, 1 EA, Refill(s) 0, [id number], 152, cm, 09/24/23 14:41:00 EST, Height/Length Dosing, 109.8, kg, 09/24/23 14:41:00 EST, Weight Dosing Start Date: 09/25/23 Status: Ordered Problems Active Problems Problem Classification Problem Date Documented Date Episodic/Chronic Anal and rectal conditions (20 sources) Anal fissure 02-07-2023 Episodic Aortic; peripheral; and visceral artery aneurysms (8 sources) Aortic aneurysm of unspecified site, without rupture; Translations: [Thoracic aortic aneurysm, without rupture] Onset: 03-12-20 Chronic Chronic kidney disease (20 sources) Chronic kidney disease stage 3A ; Translations: [Chronic kidney disease, stage 3a] Onset: 12-15-19 24 03-18-2023 Chronic Coagulation and hemorrhagic disorders (20 sources) Thrombocytopenic disorder; Translations: [Thrombocytopenia, unspecified] Onset: 12-15-19 24 03-18-2023 Chronic Deficiency and other anemia (12 sources) Anemia; Translations: [Anemia, unspecified] Onset: 07-31-20 Episodic Diabetes mellitus with complications (4 sources) Type 2 diabetes mellitus with unspecified complications; Translations: [TYPE 2 DM W/UNS COMPLICATIONS] Onset: 09-18-20 Chronic Diabetes mellitus without complication (20 sources) Type 2 diabetes mellitus; Translations: [Type 2 diabetes mellitus without complication] 02-07-2023 Chronic Comment on above: linked DM with CKD p er OP CDI policy. Diseases of white blood cells (19 sources) Lymphocytopenia 03-31-2023 Chronic Disorders of lipid metabolism (1 source) Pure hypercholesterolemia, unspecified; Translations: [PURE HYPERCHOLESTEROLEMIA UNSPEC] Onset: 04-04-20 Chronic Essential hypertension (20 sources) Essential (primary) hypertension; Translations: [Hypertensive disorder] Onset: 04-04-20 22 02-07-2023 Chronic Fluid and electrolyte disorders (18 sources) Hypokalemia 03-18-2023 Episodic Gastrointestinal hemorrhage (9 sources) Gastrointestinal hemorrhage 07-30-2023 Episodic Heart valve disorders (1 source) Rheumatic tricuspid insufficiency; Translations: [RHEUMATIC TRICUSPID INSUFFICIENCY] Onset: 03-19-20 Chronic Mycoses (7 sources) Onychomycosis 09-29-2023 Episodic Osteoporosis (1 source) Osteoporosis 03-31-2024 Chronic Other aftercare (9 sources) Post-discharge follow-up 07-30-2023 Episodi c Other and unspecified benign neoplasm (14 sources) History of polyp of colon; Translations: [Personal history of colonic polyps] Onset: 07-31-20 Episodic Other bone disease and musculoskeletal deformities (6 sources) Osteopenia 11-24-2023 Episodic Other connective tissue disease (19 sources) Adhesive capsulitis of shoulder 02-07-2023 Episodic Other connective tissue disease (19 sources) Inflammation of rotator cuff tendon 02-07-2023 Episodic Other gastrointestinal disorders (1 source) Abnormal feces; Translations: [Other fecal abnormalities] Onset: 06-03-20 Episodic Other hereditary and degenerative nervous system conditions (20 sources) Essential tremor 02-07-2023 Chronic Other liver diseases (19 sources) Elevated total bilirubin 03-18-2023 Episodi c Other lower respiratory disease (20 sources) Restrictive lung disease 02-07-2023 Episodi c Other lower respiratory disease (5 sources) Cough 01-02-2024 Episodic Other lower respiratory disease (4 sources) Wheezing 01-02-2024 Episodic Other nutritional; endocrine; and metabolic disorders (1 source) Obese class III 03-26-2024 Chronic Other screening for suspected conditions (not mental disorders or infectious disease) (11 sources) Screening for malignant neoplasm of colon done; Translations: [Encounter for screening for malignant neoplasm of colon] Onset: 06-03-20 Episodic Other upper respiratory disease (20 sources) Allergic rhinitis 02-07-2023 Chronic Otitis media and related conditions (4 sources) Otitis media of right ear 01-02-2024 Episod ic Residual codes; unclassified (4 sources) Obstructive sleep apnea (adult) (pediatric); Translations: [OBSTRUCTIVE SLEEP APNEA] Onset: 05-29-20 Chronic Thyroid disorders (20 sources) Hypothyroidism, unspecified; Translations: [Hypothyroidism] Onset: 09-23-2002-07-2023 Chronic Unclassified (20 sources) Patient encounter status 03-17-2023 Viral infection (7 sources) Disease caused by 2019-nCoV 09-17-2023 Past or Other Problems Problem Classification Problem Date Documented Da te Episodic/Chronic Other and unspecified benign neoplasm (9 sources) Polyp of colon Onset: 07-24-2023 07-30-2023 Episodic Results Test Name Value Interpretation Reference Range Facil ity Family Medicine Office/Clini c Noteon 05-21-2024 Family Medicine Office/Clinic Note Family Medicine Office/Clinic Note HPI Staff Jaleel is a 68 year old female presenting with cough and congestion C/O: Duration: _ The last 3 weeks Body aches: no legs feel rubbery Chills: no Fatigue: no Cough: yes Sore throat: no Fever: no Headache: no Nasal congestion: yes comes and on last one was yesterday Loss of taste: no Loss of smell: no Eye itching/watering: no Sneezing: no SOB: yes she don't know Known Exposure: no COVID test today- I have reviewed and verified the staff HPI to be accurate for this encounter. 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 Barrios has ordered some tests for her to determine if she has asthma or COPD. The PFT testing was completed and she still has not had the second test. She reports the cough is dry and she is not brining anything up. She has not had a fever or sore throat and has not taken anything for the cough. Review of Systems PHQ Score Initial Depression Screen Score: 0 SCORE Constitutional: no fever, no chills, no sweats, no weakness Skin: no Jaundice, no rash, no lesions, nopetechiae ENMT: no ear pain, no sore throat, no congestion, no hoarseness Respiratory: no shortness of breath, no cough, no orthopnea, no wheezing Cardiovascular: no chest pain, no palpitations, no edema Gastrointestinal: no nausea, no vomiting, no diarrhea, no GI bleeding Genitourinary: no dysuria, no hematuria, no discharge, no pain Musculoskeletal: no back pain, no trauma Neurologic: no headache, no dizziness, no numbness, no weakness Psychiatric: no sleeping problems, no irritability, no mood swings/depression. Heme/Lymph: no bleeding tendency, no bruising tendency, no petechiae, no swollen nodes Allergy/Immunologic: no seasonal allergies, no food allergies, no recurrent infections, no impaired immunity Additional ROS info: Except as noted in the above Review of Systems and in the History of Present Illness all other systems have been reviewed and are negative or noncontributory. Physical Exam Vitals & Measurements T: 36.6 ?C(Temporal Artery) HR: 60(Peripheral) RR: 18 BP: 116/78 SpO2: 94% HT: 60 in HT: 152.0 cm WT: 117.5 kg WT: 258.5 lb BMI: 50.86 General: alert, no acute distress ENMT: TM's clear, oral mucosa moist, no pharyngeal erythema or exudate Cardiovascular: regular rate and rhythm, normal peripheral perfusion Respiratory: Lungs expiratory wheezes, respirations non labored Extremities: no deformity, no trauma Neurological: oriented x 4, LOC appropriate for age speech normal Assessment/Plan 1. Bronchitis (J40: Bronchitis, not specified as acute or chronic) Encouraged to complete the additional pulmonary tests Start albuterol two puffs every 6 hours for wheezing f/u with pcp if no improvement in 3-5 days Ordered: albuterol, 2 puff(s), Inhalation, q6hr, 18 gm, Refill(s) 0, [id number], 152, cm, 05/21/24 11:19:00 EDT, Height/Length Dosing, 117.5, kg, 05/21/24 11:23:00 EDT, Weight Dosing Rapid COVID POC [id number] Follow-up No qualifying data available Patient Education Chronic Bronchitis, Adult Problem List/Past Medical History Ongoing Allergic rhinitis Anal fissure Anemia Breast cancer screening Class 3 obesity Cough History of colon polyps Hypertension Hypothyroid Lymphopenia Osteoporosis Restrictive lung disease Stage 3a chronic kidney disease (CKD) Thrombocytopenia Total bilirubin, elevated Tremor, essential Type 2 diabetes mellitus with stage 3a chronic kidney disease and hypertension Historical No qualifying data Procedure/Surgical History Colonoscopy (02/06/2024), Colonoscopy (07/24/2023), Bone marrow biopsy (06/24/2023), Carpal tunnel release, section, AWA BSO - Total abdominal hysterectomy and bilateral salpingo-oophorectomy. Medications Albuterol (Eqv-ProAir HFA) 90 mcg/inh inhalation aerosol, 2 puff(s), Inhalation, q6hr aspirin 81 mg oral capsule, 81 mg= 1 cap(s), Oral, Daily atorvastatin 40 mg Tab, See Instructions, 4 refills calcium 500 mg tablets, 1250 mg= 1 tab(s), Oral, BID ferrous sulfate 325 mg oral enteric coated tablet, 325 mg= 1 tab(s), Oral, Daily fluticasone Nasal 0.05 mg/inh [place], See Instructions glipiZIDE 5 mg Tab, 5 mg= 1 tab(s), Oral, Daily, 3 refills hydrochlorothiazide-losart an 25 mg-100 mg Tab, See Instructions Lancets, See Instructions, 4 refills levothyroxine 75 mcg (0.075 mg) Tab, 75 mcg= 1 tab(s), Oral, Daily, 3 refills Metoprolol tartrate 25 mg Tab, 25 mg= 1 tab(s), Oral, BID Metoprolol tartrate 25 mg Tab, 25 mg= 1 tab(s), Oral, BID, 5 refills Misc DME Prescription, See Instructions, 1 refills Misc DME Prescription, See Instructions, 3 refills Oystercal-D oral tablet, 1 tab(s), Oral, BID, 2 refills Allergies metFORMIN (Nausea, Dizziness, Unknown) sulfa drugs (Hives, Unknown) Social History Alcohol Household alcohol concerns: No., 08/29/2023 (more content not included)... [facility] Comment on above: Result Comment: Elec tronically Signed By: HUMPHREY HUFFMAN CNP\.aidee\Date and Time Signed: 05/21/24 15:35 EDT Pulmonary Function Studieson 04-21-2024 Pulmonary Function Studies Pulmonary Function Studies PULMONARY FUNCTION TEST: 04/12/2024 REQUESTING PROVIDER: Willian Barrios M.D. REASON FOR TESTING: Stage 3 kidney disease. Spirometry results are acceptable and reproducible. FVC was 2.47 liters or 102% of predicted. FEV1 was 2.08 liters or 110% of predicted with a ratio of 84%. There was no significant change with the administration of bronchodilators. Lung volumes showed a total lung capacity of 100% of predicted, residual volume of 98% of predicted with a ratio of 43%. Diffusion capacity for carbon monoxide was 75% of predicted and when adjusted to alveolar volume was 87% of predicted. IMPRESSION: Pulmonary function test results are within normal range including spirometry, lung volumes, and diffusion capacity. READ BY: Sophia Ferrer Dictated: 04/18/2024 [id number] Transcribed: 04/20/2024 cc:Willian Barrios M.D. [facility] Comment on above: Result Comment: Elec tronically Signed By: Deng PATTEN, Adrian Dyer\.br\Date and Time Signed: 04/21/24 09:10 EDT Dexa Scanson 03-31-2024 Dexa Scans [id number] Normal [facility] Family Medicine Office/Clini c Noteon 03-29-2024 Family Medicine Office/Clinic Note Normal [facility] Comment on above: Result Comment: Elec tronically Signed By: Denis PATTEN, Willian Weiner\.br\Date and Time Signed: 03/29/24 12:57 EDT Patient Educationon 03-29-20 Patient Education Normal [facility] Ambulatory Visit Summaryon 0 03-15-2024 Ambulatory Visit Summary Normal [address] [place] [address]- \.br\ Medications\.br \ What How Much When Why Instructions\.b r\ Unchanged albuterol (Albuterol (Eqv-ProAir HFA) 90 mcg/ inh inhalation aerosol) 2 Puffs Inhalation Every 6 hours\.br\ Unchanged aspirin (aspirin 81 mg oral capsule) 1 Capsules By Mouth Every day\.br\ Unchanged atorvastatin (atorvastatin 40 mg Tab) See instructions TAKE 1 TABLET BY MOUTH EVERY DAY \.br\ Unchanged beclomethasone (beclomethasone 80 mcg/ inh Inh Aer w/ [employer]) 2 Puffs Inhalation 2 times a day Osteopenia\.br\ Unchanged budesonide (budesonide 90 mcg/ inh inhalation powder) 1 Inhalation Inhalation 2 times a day\.br\ Unchanged budesonide-form oterol (Symbicort 160/ 4.5 inhalation aerosol with adapter) 2 Puffs Inhalation 2 times a day\.br\ Unchanged calcium carbonate (calcium 500 mg tablets) 1 Tablets By Mouth 2 times a day\.br\ Unchanged calcium-vitamin D (Oystercal-D oral tablet) 1 Tablets By Mouth 2 times a day Osteopenia\.br\ Unchanged ferrous sulfate (ferrous sulfate 325 mg oral enteric coated tablet) 1 Tablets By Mouth Every day\.br\ Unchanged fluticasone nasal (fluticasone Nasal 0.05 mg/ inh [place]) See instructions USE 2 SPRAYS IN EACH NOSTRIL ONCE A DAY \.br\ Unchanged glipiZIDE (glipiZIDE 5 mg Tab) 1 Tablets By Mouth Every day\.br\ Unchanged hydrochlorothia zide-losartan (hydrochlorothi azide-losartan 25 mg-100 mg Tab) 1 Tablets By [...] Anemia\.br\ Breast cancer screening\.br\ Colon cancer screening\.br\ Cough\.br\ COVID\.br\ GI bleed\.br\ History of colon polyps\.br\ Hospital discharge follow-up\.br\ Hypertension\.b r\ Hypokalemia\.br \ Hypothyroid\.br \ Lymphopenia\.br \ Onychomycosis\. br\ Osteopenia\.br\ Pericapsulitis of shoulder\.br\ Polyp of colon\.br\ Positive colorectal cancer screening using Cologuard test\.br\ Restrictive lung disease\.br\ Right otitis media\.br\ Rotator cuff tendonitis\.br\ Stage 3a chronic kidney disease (CKD)\.br\ Thrombocytopeni a\.br\ Total bilirubin, elevated\.br\ Tremor, essential\.br\ Type 2 diabetes mellitus with stage 3a chronic kidney disease and hypertension\.b r\ Wheezing\.br\ Patient Survey\.br\ You may receive a survey via text or e-mail asking about your office visit. Please share your experience with us by completing your survey. We appreciate your feedback and thank you for choosing us for your care.\.br\ Education Materials\.br\ Preventing Iron Deficiency Anemia, Adult\.br\ Iron deficiency is having a lack of iron in the body. Iron is an important mineral that your body needs to build healthy red blood cells. Iron deficiency anemia is a condition in which the concentration of red blood cells or hemoglobin in the blood is below normal because of too little iron. Hemoglobin is a substance in red blood cells that carries oxygen to the body's tissues.\.br\ You may develop iron deficiency anemia due to:\.br\ ? \.br\ Blood loss from an injury or condition such as Crohn's disease.\.br\ ? \.br\ Your body being unable to properly absorb iron and use it to create red blood cells.\.br\ ? \.br\ Lack of iron in your diet.\.br\ You can prevent iron deficiency anemia by making certain changes to your diet and lifestyle.\.br\ How can this condition affect me?\.br\ If not treated, iron deficiency anemia can lead to serious health complications, including:\.br\ ? \.br\ Long-term (chronic) tiredness or fatigue.\.br\ ? \.br\ Shortness of breath with activity.\.br\ ? \.br\ Abnormal heart rhythms.\.br\ ? \.br\ Heart failure.\.br\ ? \.br\ Uncomfortable sensations and an overwhelming urge to move your legs (restless legs syndrome).\.br\ ? \.br\ A weakened disease-fightin g system (immune system).\.br\ What can increase my risk?\.br\ It is important to know whether you are at risk for iron deficiency anemia. Ask your health care provider if you need a blood test to measure your iron or red blood cells. You may have a higher risk for iron deficiency anemia if:\.br\ ? \.br\ You are female and one of the following applies:\.br\ ? \.br\ You have heavy menstrual periods.\.br\ ? \.br\ You are .\.br\ ? \.br\ You are .\ .br\ ? \.br\ You have had bypass surgery for weight loss.\.br\ ? \.br\ You have a digestive disorder such as Crohn's disease, irritable bowel syndrome, or celiac disease.\.br\ ? \.br\ You regularly take antacids or acid-lowering medicines.\.br\ ? \.br\ You follow a vegetarian or vegan diet.\.br\ What actions can I take to lower my risk?\.br\ Nutrition\.br\ \.br\ ? \.br\ Eat foods that are high in iron, such as:\.br\ ? \.br\ Red meat, especially liver and beef.\.br\ ? \.br\ Poultry.\.br\ ? \.br\ Seafood.\.br\ ? \.br\ Dried fruit.\.br\ ? \.br\ Prune juice.\.br\ ? \.br\ Nuts.\.br\ ? \.br\ Pumpkin seeds.\.br\ ? \.br\ Beans.\.br\ ? \.br\ Leafy green vegetables.\.br \ ? \.br\ Molasses.\.br\ ? \.br\ Tofu.\.br\ ? \.br\ Look for foods that have added iron (are fortified). Many cereals and breads are iron fortified.\.br\ ? \.br\ Eat foods that contain vitamin C along with iron-rich foods, preferably in the same meal. Vitamin C increases your body's ability to absorb iron. Foods high in vitamin C include:\.br\ ? \.br\ [place] fruits, such as checo, oranges, and grapefruits.\.b r\ ? \.br\ Berries.\.br\ ? \.br\ [place] peppers.\.br\ ? \.br\ Tomatoes.\.br\ ? \.br\ Broccoli.\.br\ ? \.br\ Do not follow a diet that is very low in fat or very high in fiber.\.br\ ? \.br\ Do not drink very large amounts of milk, tea, or coffee.\.br\ General tips\.br\ ? \.br\ Limit your use of antacids or acid-lowering medicines.\.br\ ? \.br\ Work with your health care provider to manage conditions that can cause iron deficiency.\.br \ ? \.br\ Ask your health care provider if a multivitamin or iron supplement is right for you.\.br\ ? \.br\ Take [id number]-vno-[id number] r and prescription medicines only as told by your health care provider.\.br\ ? \.br\ Keep all follow-up visits.\.br\ Where to find more information\.br \ Learn more about preventing iron deficiency from:\.br\ ? \.br\ National Heart, Lung, and Blood [place]: www.nhlbi.nih.g ov\.br\ ? \.br\ [place] [employer]: www.hematology. org\.br\ Contact a health care provider if:\.br\ ? \.br\ You develop symptoms of iron deficiency, including:\.br\ ? \.br\ Fatigue.\.br\ ? \.br\ Headache.\.br\ ? \.br\ Pale skin, lips, and nail beds.\.br\ ? \.br\ Poor appetite.\.br\ ? \.br\ Weakness.\.br\ Summary\.br\ ? \.br\ Iron deficiency anemia is a condition in which the [facility] Consent for Treatmenton Consent for Treatment [id number] Normal [facility] ED Pat Eduon 03-15-2024 ED Pat Edu Normal [facility] ED Pat Edu Normal [facility] Oncology Progress Noteon Oncology Progress Note Normal [facility] CBC w/ Auto Diffon 4 Basophils/100 WBC (Bld) 1.0 % Normal 0.0-2.[address] [facility] Comment on above: Performed By: #### 2 [id number] #### [facility] [address] [place] [address] Basophils/Leukocyt es Auto (Bld) [Pure # fraction] 0.0 E9/L Normal 0.0-0.[address] [facility] Comment on above: Performed By: #### 2 [id number] #### [facility] [address] [place] [address] Eosinophils (Bld) [#/Vol] 0.1 E9/L Normal 0.0-0.[address] [facility] Comment on above: Performed By: #### 2 [id number] #### [facility] [address] [place] [address] Eosinophils/100 WBC (Bld) 2.0 % Normal 0.0-8.[address] [facility] Comment on above: Performed By: #### 2 [id number] #### [facility] [address] [place] [address] Erythrocyte distribution width (RBC) [Ratio] 13.5 % Normal 10.9-14.[address] [facility] Comment on above: Performed By: #### 2 [id number] #### [facility] [address] [place] [address] Hematocrit (Bld) [Volume fraction] 36.6 % Normal 34.0-46.[address] [facility] Comment on above: Performed By: #### 2 [id number] #### [facility] [address] [place] [address] Hemoglobin (Bld) [Mass/Vol] 12.3 g/dL Normal 12.0-16.[address] [facility] Comment on above: Performed By: #### 2 [id number] #### [facility] [address] [place] [address] Lymphocytes (Bld) [#/Vol] 0.6 E9/L Low 1.0-4.[address] [facility] Comment on above: Performed By: #### 2 [id number] #### [facility] [address] [place] [address] Lymphocytes/100 WBC (Bld) 21.0 % Normal 14.0-50.[address] [facility] Comment on above: Performed By: #### 2 [id number] #### [facility] [address] [place] [address] MCH (RBC) [Entitic mass] 32.6 pg Normal 27.0-34.[address] [facility] Comment on above: Performed By: #### 2 [id number] #### [facility] [address] [place] [address] MCHC (RBC) [Mass/Vol] 33.6 g/dL Normal 31.4-36.[address] [facility] Comment on above: Performed By: #### 2 [id number] #### [facility] [address] [place] [address] MCV (RBC) [Entitic vol] 97.0 fL Normal 80.0-100.[address] [facility] Comment on above: Performed By: #### 2 [id number] #### [facility] [address] [place] [address] Monocytes (Bld) [#/Vol] 0.3 E9/L Normal 0.2-1.[address] [facility] Comment on above: Performed By: #### 2 [id number] #### [facility] [address] [place] [address] Neutrophils (Bld) [#/Vol] 2.1 E9/L Normal 2.0-7.[address] [facility] Comment on above: Performed By: #### 2 [id number] #### [facility] [address] [place] [address] Neutrophils/100 WBC (Bld) 67.2 % Normal 36.0-75.[address] [facility] Comment on above: Performed By: #### 2 [id number] #### [facility] [address] [place] [address] Platelet 90.0 E9/L Low 150.0-500.[address] [facility] Comment on above: Result Comment: Resu lt Verified by Repeat Analysis Peripheral smear review performed. Performed By: #### 2 [id number] #### [facility] [address] [place] [address] Platelet mean volume (Bld) [Entitic vol] 8.4 fL Normal 6.4-10.[address] [facility] Comment on above: Performed By: #### 2 [id number] #### [facility] [address] [place] [address] RBC (Bld) [#/Vol] 3.8 E12/L Low 4.3-5.[address] [facility] Comment on above: Performed By: #### 2 [id number] #### [facility] [address] [place] [address] WBC corrected for nucl RBC Auto (Bld) [#/Vol] 3.1 E9/L Low 4.0-11.[address] [facility] Comment on above: Performed By: #### 2 [id number] #### [facility] [address] [place] [address] CHEMISTRYOrdered By: SYSTEM SYSTEM on 03-09-2024 Albumin [Mass/Vol] 3.4 g/dL Normal 3.3 - 5.0 gm/dL R emisol Chem Albumin/Globulin [Mass ratio] 1.2 {ratio} Normal 1.1 - 2.2 Remisol Chem ALP [Catalytic activity/Vol] 68 [iU]/d Normal 21 - 98 Int._Unit/L Remisol Chem ALT No additional P-5'-P [Catalytic activity/Vol] 21 [iU]/d Normal 6 - 46 Int._Unit/L Remisol Chem Anion gap [Moles/Vol] 11 mmol/L Normal 6 - 16 mEq/L Remisol Chem AST [Catalytic activity/Vol] 31 [iU]/d Normal 5 - 43 Int._Unit/L Remisol Chem Bilirubin [Mass/Vol] 1.0 mg/dL Normal 0.0 - 1.1 mg/dL Remisol Chem Calcium [Mass/Vol] 8.9 mg/dL Normal 8.9 - 11. 1 mg/dL Remisol Chem Chloride [Moles/Vol] 103 mmol/L Normal 101 - 111 mmol/L Remisol Chem CO2 [Moles/Vol] 29 mmol/L Normal 21 - 31 mmol/L Remis ol Chem Creatinine [Mass/Vol] 1.4 mg/dL High 0.5 - 1.3 mg/dL Remisol Chem eGFR 40 mL/min/1.73 m2 Low >=59mL/min /1.73 m2 Remisol Chem Ferritin [Mass/Vol] 36 ng/mL Normal 11 - 307 ng/mL Remisol Chem Globulin (S) [Mass/Vol] 2.8 g/dL Normal 1.4 - 4.0 gm/dL Remisol Chem Glucose [Mass/Vol] 272 mg/dL High 55 - 199 mg/dL Re misol Chem Iron [Mass/Vol] 87 ug/dL Normal 35 - 153 mcg/dL Dagoberto ksenia Chem Iron binding capacity [Mass/Vol] 357 ug/dL Normal 250 - 400 mcg/dL Remisol Chem Iron saturation [Mass fraction] 24 % Normal 20 - 50 % Remisol Chem Potassium [Moles/Vol] 3.9 mmol/L Normal 3.5 - 5.3 mmol/L Remisol Chem Protein [Mass/Vol] 6.2 g/dL Normal 6.0 - 7.8 gm/dL R emisol Chem Sodium [Moles/Vol] 139 mmol/L Normal 135 - 145 mmol/L Remisol Chem Transferrin [Mass/Vol] 255 mg/dL Normal 200 - 370 mg/dL Remisol Chem Urea nitrogen [Mass/Vol] 26 mg/dL High 5 - 21 mg/dL Remisol Chem Urea nitrogen/Creatinin e [Mass ratio] 19 mg/mg Normal 10 - 20 Remisol Chem CMPon 03-09-2024 Albumin [Mass/Vol] 3.4 g/dL Normal 3.3-5.[address] [facility] Comment on above: Performed By: #### 2 [id number] #### [facility] [address] [place] [address] Albumin/Globulin (S) [Mass conc ratio] 1.2 Normal 1.1-2.[address] [facility] Comment on above: Performed By: #### 2 [id number] #### [facility] [address] [place] [address] ALP [Catalytic activity/Vol] 68 Int._Unit/L Normal 21-[address] [facility] Comment on above: Performed By: #### 2 [id number] #### [facility] [address] [place] [address] ALT No additional P-5'-P [Catalytic activity/Vol] 21 Int._Unit/L Normal 6-[address] [facility] Comment on above: Performed By: #### 2 [id number] #### [facility] [address] [place] [address] Anion gap [Moles/Vol] 11 mmol/L Normal 6-[address] [facility] Comment on above: Performed By: #### 2 [id number] #### [facility] [address] [place] [address] AST [Catalytic activity/Vol] 31 Int._Unit/L Normal 5-[address] [facility] Comment on above: Performed By: #### 2 [id number] #### [facility] [address] [place] [address] Bilirubin [Mass/Vol] 1.0 mg/dL Normal 0.0-1.[address] [facility] Comment on above: Performed By: #### 2 [id number] #### [facility] [address] [place] [address] Calcium [Mass/Vol] 8.9 mg/dL Normal 8.9-11.[address] [facility] Comment on above: Performed By: #### 2 [id number] #### [facility] [address] [place] [address] Chloride [Moles/Vol] 103 mmol/L Normal 101-[address] [facility] Comment on above: Performed By: #### 2 [id number] #### [facility] [address] [place] [address] CO2 [Moles/Vol] 29 mmol/L Normal 21-[address] [facility] Comment on above: Performed By: #### 2 [id number] #### [facility] [address] [place] [address] Creatinine [Mass/Vol] 1.4 mg/dL High 0.5-1.[address] [facility] Comment on above: Performed By: #### 2 [id number] #### [facility] [address] [place] [address] Globulin (S) [Mass/Vol] 2.8 g/dL Normal 1.4-4.[address] [facility] Comment on above: Performed By: #### 2 [id number] #### [facility] [address] [place] [address] Glucose [Mass/Vol] 272 mg/dL High 55-[address] [facility] Comment on above: Performed By: #### 2 [id number] #### [facility] [address] [place] [address] Potassium [Moles/Vol] 3.9 mmol/L Normal 3.5-5.[address] [facility] Comment on above: Performed By: #### 2 [id number] #### [facility] [address] [place] [address] Protein [Mass/Vol] 6.2 g/dL Normal 6.0-7.[address] [facility] Comment on above: Performed By: #### 2 [id number] #### [facility] [address] [place] [address] Sodium [Moles/Vol] 139 mmol/L Normal 135-[address] [facility] Comment on above: Performed By: #### 2 [id number] #### [facility] [address] [place] [address] Urea nitrogen [Mass/Vol] 26 mg/dL High 5-[address] [facility] Comment on above: Performed By: #### 2 [id number] #### [facility] [address] [place] [address] Urea nitrogen/Creatinin e [Mass ratio] 19 No Units Normal 10-[address] [facility] Comment on above: Performed By: #### 2 [id number] #### [facility] [address] [place] [address] Consent for Treatmenton 02-11 Consent for Treatment [id number] Normal [facility] Ferritinon 03-09-2024 Ferritin [Mass/Vol] 36 ng/mL Normal 11-[address] [facility] Comment on above: Performed By: #### 2 [id number] #### [facility] [address] [place] [address] HEMATOLOGYOrdered By: SYSTEM SYSTEM on 03-09-2024 Basophils/100 WBC (Bld) 1.0 % Normal 0.0 - 2.0 % Remisol Heme Basophils/Leukocyt es Auto (Bld) [Pure # fraction] 0.0 E9/L Normal 0.0 - 0.2 E9/L Remisol Heme Eosinophils (Bld) [#/Vol] 0.1 E9/L Normal 0.0 - 0.5 E9/L Remisol Heme Eosinophils/100 WBC (Bld) 2.0 % Normal 0.0 - 8.0 % Remisol Heme Erythrocyte distribution width (RBC) [Ratio] 13.5 % Normal 10.9 - 14.2 % Remisol Heme Hematocrit (Bld) [Volume fraction] 36.6 % Normal 34.0 - 46.0 % Remisol Heme Hemoglobin (Bld) [Mass/Vol] 12.3 g/dL Normal 12.0 - 16.0 gm/dL Remisol Heme Lymphocytes (Bld) [#/Vol] 0.6 E9/L Low 1.0 - 4.0 E9/L Remisol Heme Lymphocytes/100 WBC (Bld) 21.0 % Normal 14.0 - 50.0 % Remisol Heme MCH (RBC) [Entitic mass] 32.6 pg Normal 27.0 - 34.0 pg Remisol Heme MCHC (RBC) [Mass/Vol] 33.6 g/dL Normal 31.4 - 36.0 gm/dL Remisol Heme MCV (RBC) [Entitic vol] 97.0 fL Normal 80.0 - 100.0 fL Remisol Heme Monocytes (Bld) [#/Vol] 0.3 E9/L Normal 0.2 - 1.0 E9/L Remisol Heme Monocytes/100 WBC (Bld) 8.8 % Normal 4.0 - 14.0 % Remisol Heme Neutrophils (Bld) [#/Vol] 2.1 E9/L Normal 2.0 - 7.5 E9/L Remisol Heme Neutrophils/100 WBC (Bld) 67.2 % Normal 36.0 - 75.0 % Remisol Heme Platelet 90.0 E9/L Low 150.0 - 500.0 E9/L Remisol Heme Comment on above: Result Comment: Resu lt Verified by Repeat Analysis Peripheral smear review performed. Platelet mean volume (Bld) [Entitic vol] 8.4 fL Normal 6.4 - 10.8 fL Remisol Heme RBC (Bld) [#/Vol] 3.8 E12/L Low 4.3 - 5.9 E12/L Re misol Heme WBC corrected for nucl RBC Auto (Bld) [#/Vol] 3.1 E9/L Low 4.0 - 11.0 E9/L Remisol Heme Ironon 03-09-2024 Iron [Mass/Vol] 87 microgram/dL Normal 35-153 [facility] Comment on above: Performed By: #### 2 [id number] #### [facility] [address] [place] [address] Iron Saturationon 03-09-2024 Iron binding capacity [Mass/Vol] 357 microgram/dL Normal 250-[address] [facility] Comment on above: Performed By: #### 2 [id number] #### [facility] [address] [place] [address] Iron saturation [Mass fraction] 24 % Normal 20-[address] [facility] Comment on above: Performed By: #### 2 [id number] #### [facility] [address] [place] [address] Transferrinon 03-09-2024 Transferrin [Mass/Vol] 255 mg/dL Normal 200-[address] [facility] Comment on above: Performed By: #### 2 [id number] #### [facility] [address] [place] [address] eGFRon 03-09-2024 eGFR 40 mL/min/1.73 m2 Low >=[address] [facility] Comment on above: Order Comment: Order added by Discern Expert. Performed By: #### 1 [id number] #### [facility] [address] [place] [address] Ambulatory Visit Summaryon 0 03-02-2024 Ambulatory Visit Summary Normal [address] [place] [address]- \.br\ Medications\.br \ What How Much When Why Instructions\.b r\ Unchanged albuterol (Albuterol (Eqv-ProAir HFA) 90 mcg/ [...] physician if questions or concerns \.br\ Unchanged beclomethasone (beclomethasone 80 mcg/ inh Inh Aer w/ [employer]) 2 Puffs Inhalation 2 times a day Osteopenia Contact prescribing physician if questions or concerns \.br\ Unchanged budesonide (budesonide 90 mcg/ inh inhalation powder) 1 Inhalation Inhalation 2 times a day Contact prescribing physician if questions or concerns \.br\ Unchanged budesonide-form oterol (Symbicort 160/ 4.5 inhalation aerosol with adapter) 2 Puffs Inhalation 2 times a day Contact prescribing physician if questions or concerns \.br\ Unchanged calcium carbonate (calcium 500 mg tablets) 1 Tablets By Mouth 2 times a day Contact prescribing physician if questions or concerns \.br\ Unchanged calcium-vitamin D (Oystercal-D oral tablet) 1 Tablets By Mouth 2 times a day Osteopenia Contact prescribing physician if questions or concerns \.br\ Unchanged ferrous sulfate (ferrous sulfate 325 mg oral enteric coated tablet) 1 Tablets By Mouth Every day Contact prescribing physician if questions or concerns \.br\ Unchanged fluticasone nasal (fluticasone Nasal 0.05 mg/ inh [place]) See instructions USE 2 SPRAYS IN EACH NOSTRIL ONCE A DAY Contact prescribing physician if questions or concerns \.br\ Unchanged glipiZIDE (glipiZIDE 5 mg Tab) 1 Tablets By Mouth Every day Contact prescribing physician if questions or concerns \.br\ Unchanged hydrochlorothia zide-losartan (hydrochlorothi azide-losartan 25 mg-100 mg Tab) 1 Tablets By [...] prescribing physician if questions or concerns \.br\ Allergies\.br\ metFORMIN (Nausea, Dizziness, Unknown)\.br\ sulfa drugs (Hives, Unknown)\.br\ Problems\.br\ Ongoing - Any problem that you are currently receiving treatment for.\.br\ Allergic rhinitis\.br\ Anal fissure\.br\ Anemia\.br\ Breast cancer screening\.br\ Colon cancer screening\.br\ Cough\.br\ COVID\.br\ GI bleed\.br\ History of colon polyps\.br\ Hospital discharge follow-up\.br\ Hypertension\.b r\ Hypokalemia\.br \ Hypothyroid\.br \ Lymphopenia\.br \ Onychomycosis\. br\ Osteopenia\.br\ Pericapsulitis of shoulder\.br\ Polyp of colon\.br\ Positive colorectal cancer screening using Cologuard test\.br\ Restrictive lung disease\.br\ Right otitis media\.br\ Rotator cuff tendonitis\.br\ Stage 3a chronic kidney disease (CKD)\.br\ Thrombocytopeni a\.br\ Total bilirubin, elevated\.br\ Tremor, essential\.br\ Type 2 diabetes mellitus with stage 3a chronic kidney disease and hypertension\.b r\ Wheezing\.br\ Patient Survey\.br\ You may receive a survey via text or e-mail asking about your office visit. Please share your experience with us by completing your survey. We appreciate your feedback and thank you for choosing us for your care.\.br\ \.br\ [facility] Gastroenterology Office/Clin ic Noteon 03-02-2024 Gastroenterology Office/Clinic Note Normal [facility] Comment on above: Result Comment: Elec tronically Signed By: Deborah Rashid MD\.br\Date and Time Signed: 03/02/24 13:05 EDT Postoperative Documentson Postoperative Documents [id number]#1.00TIFF Normal [facility] Reminderson 02-16-2024 Reminders [address] [facility] IntraOperative Documentson 0 02-10-2024 IntraOperative Documents [id number]#1.00TIFF Normal [facility] Consenton 02-09-2024 Consent [id number]#1.00TIFF Normal [facility] Discharge Instructionson Discharge Instructions [id number]#1.00TIFF Normal [facility] Main OR Intraoperative Recor don 02-09-2024 Main OR Intraoperative Record Normal [facility] Consent for Treatmenton 01-12 Consent for Treatment [id number]#1.00TIFF Normal [facility] Discharge Instructionson Discharge Instructions Normal [address] [place] [id number]- \.br\ New Follow Up Appointments after Discharge\.br \ Follow Up with Deborah Rashid When: Within 1 to 2 weeks\.br\ Comments:\.br\ Call for any problems.\.br\ Where:\.br\ [address], [address]\.br\ [facility] [employer] [address]\.br\ [place] [address]-\.br\ [id number] [employer] (1)\.br\ Medications\.br \ What How Much When Why Instructions Next Dose\.br\ Unchanged albuterol (Albuterol (Eqv-ProAir HFA) 90 mcg/ inh inhalation aerosol) 2 Puffs Inhalation Every 6 hours\.br\ Unchanged aspirin (aspirin 81 mg oral capsule) 1 Capsules By Mouth Every day\.br\ Unchanged atorvastatin (atorvastatin 40 mg Tab) See instructions TAKE 1 TABLET BY MOUTH EVERY DAY \.br\ Unchanged beclomethasone (beclomethasone 80 mcg/ inh Inh Aer w/ [employer]) 2 Puffs Inhalation 2 times a day Osteopenia\.br\ Unchanged budesonide (budesonide 90 mcg/ inh inhalation powder) 1 Inhalation Inhalation 2 times a day\.br\ Unchanged budesonide-form oterol (Symbicort 160/ 4.5 inhalation aerosol with adapter) 2 Puffs Inhalation 2 times a day\.br\ Unchanged calcium carbonate (calcium 500 mg tablets) 1 Tablets By Mouth 2 times a day\.br\ Unchanged calcium-vitamin D (Oystercal-D oral tablet) 1 Tablets By Mouth 2 times a day Osteopenia\.br\ Unchanged ferrous sulfate (ferrous sulfate 325 mg oral enteric coated tablet) 1 Tablets By Mouth Every day\.br\ Unchanged fluticasone nasal (fluticasone Nasal 0.05 mg/ inh [place]) See instructions USE 2 SPRAYS IN EACH NOSTRIL ONCE A DAY \.br\ Unchanged glipiZIDE (glipiZIDE 5 mg Tab) 1 Tablets By Mouth Every day\.br\ Unchanged hydrochlorothia zide-losartan (hydrochlorothi azide-losartan 25 mg-100 mg Tab) 1 Tablets By [...] sugars once a day Dx E11.9 \.br\ Test Results\.br\ No qualifying data available.\.br\ Allergies\.br\ metFORMIN (Nausea, Dizziness, Unknown)\.br\ sulfa drugs (Hives, Unknown)\.br\ Problems\.br\ Ongoing - Any problem that you are currently receiving treatment for.\.br\ Allergic rhinitis\.br\ Anal fissure\.br\ Anemia\.br\ Breast cancer screening\.br\ Colon cancer screening\.br\ Cough\.br\ COVID\.br\ GI bleed\.br\ History of colon polyps\.br\ Hospital discharge follow-up\.br\ Hypertension\.b r\ Hypokalemia\.br \ Hypothyroid\.br \ Lymphopenia\.br \ Onychomycosis\. br\ Osteopenia\.br\ Pericapsulitis of shoulder\.br\ Polyp of colon\.br\ Positive colorectal cancer screening using Cologuard test\.br\ Restrictive lung disease\.br\ Right otitis media\.br\ Rotator cuff tendonitis\.br\ Stage 3a chronic kidney disease (CKD)\.br\ Thrombocytopeni a\.br\ Total bilirubin, elevated\.br\ Tremor, essential\.br\ Type 2 diabetes mellitus with stage 3a chronic kidney disease and hypertension\.b r\ Wheezing\.br\ Education Materials\.br\ \.br\ Colonoscopy\.br \ Care After Surgery\.br\ \.br\ Please read the instructions outlined below and refer to this sheet in the next few weeks. These discharge instructions provide you with general information on caring for yourself after you leave the hospital. Your doctor may also give you specific instructions. While your treatment has been planned according to the most current medical practices available, unavoidable complications occasionally occur. If you have any problems or questions after discharge, please call your doctor.\.br\ \.br\ ACTIVITY\.br\ You may resume your regular activity, but move at a slower pace for the next 24 hours.\.br\ Take frequent rest periods for the next 24 hours.\.br\ Walking will help get rid of the air and reduce the bloated feeling in your abdomen (belly).\.br\ No driving for 24 hours (because of the anesthesia (medicine) used during the test).\.br\ You may shower.\.br\ Do not sign any important legal documents or operate any machinery for 24 hours (because of the anesthesia used during the test).\.br\ \.br\ NUTRITION\.br\ Drink plenty of fluids.\.br\ You may resume your normal diet as instructed by your doctor.\.br\ Begin with a light meal and progress to your normal diet. Heavy or fried foods are harder to digest and may make you feel nauseated (sick to your stomach).\.br\ Avoid alcoholic beverages for 24 hours or as instructed.\.br \ \.br\ MEDICATIONS\.br \ You may resume your normal medications unless your doctor tells you otherwise.\.br\ \.br\ WHAT YOU CAN EXPECT TODAY\.br\ Some feelings of bloating in the abdomen.\.br\ Passage of more gas than usual.\.br\ Spotting of blood in your stool or on the toilet paper.\.br\ \.br\ FOLLOW-UP\.br\ Your doctor will discuss the results of your test with you.\.br\ \.br\ SEEK IMMEDIATE MEDICAL ATTENTION IF:\.br\ There is more than a spotting of blood in your stool.\.br\ There is abdominal distention (your abdomen is swollen).\.br\ There is vomiting.\.br\ You have a temperature over 101.5 F.\.br\ There is abdominal pain or discomfort that is severe or gets worse throughout the day.\.br\ Colon Polyps\.br\ \.br\ Colon polyps are tissue [...] syndrome.\.br\ ? \.br\ Peutz?Jeghers syndrome.\.br\ ? \.br\ MUTYH-associate d polyposis (MAP).\.br\ ? \.br\ Being overweight.\.br \ ? \.br\ Certain lifestyle factors. These include [...] color.\.br\ ? \.br\ Pain in the abdomen.\.br\ [facility] Comment on above: Result Comment: Elec tronically Signed By: Modesta Walsh RN\.br\Date and Time Signed: 02/06/24 11:09 EDT Endoscopic Procedure Report - Otheron 02-06-2024 Endoscopic Procedure Report - Other Normal [facility] Comment on above: Result Comment: Elec tronically Signed By: Deborah Rashid MD\.br\Date and Time Signed: 02/06/24 11:04 EDT Other Comment: Radha landaverde Attachment - attachment storage system not supported [id number] Can be [facility] Attachment - attachment storage system not supported [id number] Can be viewed in [facility] Attachment - attachment storage system not supported [id number] Can be viewed in source systemMissing Attachment - attachment storage system not supported [id number] Can be viewed in [facility] Attachment - attachment storage system not supported [id number] Can be viewed in [facility] Attachment - attachment storage system not supported [id number] Can be viewed in source systemMissing Attachment - attachment storage system not supported [id number] Can be viewed in source systemMissing Attachment - attachment storage system not supported [id number] Can be viewed in source systemMissing Attachment - attachment storage system not supported [id number] Can be viewed in [facility] Attachment - attachment storage system not supported [id number] Can be viewed in source systemMissing Attachment - attachment storage system not supported [id number] Can be viewed in source systemMissing Attachment - attachment storage system not supported [id number] Can be viewed in source systemMissing Attachment - attachment storage system not supported [id number] Can be viewed in source systemMissing Attachment - attachment storage system not supported [id number] Can be viewed in source systemMissing Attachment - attachment storage system not supported [id number] Can be viewed in source systemMissing Attachment - attachment storage system not supported [id number] Can be viewed in source systemMissing Attachment - attachment storage system not supported [id number] Can be viewed in source systemMissing Attachment - attachment storage system not supported [id number] Can be viewed in source systemMissing Attachment - attachment storage system not supported [id number] Can be viewed in source systemMissing Attachment - attachment storage system not supported [id number] Can be viewed in source system Inpatient Patient Summaryon 02-06-2024 Inpatient Patient Summary Normal [facility] Main OR PACU I Recordon 01-12 Main OR PACU I Record Normal [facility] Main OR Preoperative Recordo n 02-06-2024 Main OR Preoperative Record Normal [facility] Monitor Recordon 02-06-2024 Monitor Record [id number]#1.00TIFF Normal [facility] Monitor Record [id number]#1.00TIFF Normal [facility] Outpatient Surgery Discharge Instructionon 02-06-2024 Outpatient Surgery Discharge Instruction Normal [facility] Patient Education - Texton 0 02-06-2024 Patient Education - Text Normal [facility] Progress Note-Physicianon Progress Note-Physician Normal [facility] Comment on above: Result Comment: Elec tronically Signed By: Jorge Luis Fang Jr., DO\.br\Date and Time Signed: 02/06/24 12:10 EDT Progress Note-Physician Normal [facility] Comment on above: Result Comment: Elec tronically Signed By: Jorge Luis aFng Jr., DO\.br\Date and Time Signed: 02/06/24 09:27 EDT Ambulatory Visit Summaryon 0 01-02-2024 Ambulatory Visit Summary Normal [address] [place] [address]- \.br\ Medications\.br \ What How Much When Why Instructions\.b r\ Unchanged albuterol (Albuterol (Eqv-ProAir HFA) 90 mcg/ inh inhalation aerosol) 2 Puffs Inhalation Every 6 hours\.br\ Unchanged aspirin (aspirin 81 mg oral capsule) 1 Capsules By Mouth Every day\.br\ Unchanged atorvastatin (atorvastatin 40 mg Tab) See instructions TAKE 1 TABLET BY MOUTH EVERY DAY \.br\ Unchanged budesonide (budesonide 90 mcg/ inh inhalation powder) 1 Inhalation Inhalation 2 times a day\.br\ Unchanged budesonide-form oterol (Symbicort 160/ 4.5 inhalation aerosol with adapter) 2 Puffs Inhalation 2 times a day\.br\ Unchanged calcium carbonate (calcium 500 mg tablets)\.br\ Unchanged calcium-vitamin D (Oystercal-D oral tablet) 1 Tablets By Mouth 2 times a day Osteopenia\.br\ Unchanged ferrous sulfate (ferrous sulfate 325 mg oral enteric coated tablet) 1 Tablets By Mouth Every day\.br\ Unchanged fluticasone nasal (fluticasone Nasal 0.05 mg/ inh [place]) See instructions USE 2 SPRAYS IN EACH NOSTRIL ONCE A DAY \.br\ Unchanged glipiZIDE (glipiZIDE 5 mg Tab) 1 Tablets By Mouth Every day\.br\ Unchanged hydrochlorothia zide-losartan (hydrochlorothi azide-losartan 25 mg-100 mg Tab) 1 Tablets By [...] History of colon polyps\.br\ Hospital discharge follow-up\.br\ Hypertension\.b r\ Hypokalemia\.br \ Hypothyroid\.br \ Lymphopenia\.br \ Onychomycosis\. br\ Osteopenia\.br\ Pericapsulitis of shoulder\.br\ Polyp of colon\.br\ Positive colorectal cancer screening using Cologuard test\.br\ Restrictive lung disease\.br\ Rotator cuff tendonitis\.br\ Stage 3a chronic kidney disease (CKD)\.br\ Thrombocytopeni a\.br\ Total bilirubin, elevated\.br\ Tremor, essential\.br\ Type 2 diabetes mellitus with stage 3a chronic kidney disease and hypertension\.b r\ Patient Survey\.br\ You may receive a survey via text or e-mail asking about your office visit. Please share your experience with us by completing your survey. We appreciate your feedback and thank you for choosing us for your care.\.br\ \.br\ [facility] Consenton 01-02-2024 Consent [id number]#1.00TIFF Normal [facility] Family Medicine Office/Clini c Noteon 01-02-2024 Family Medicine Office/Clinic Note Normal [facility] Comment on above: Result Comment: Elec tronically Signed By: Shalini Starkey\.br\Date and Time Signed: 01/02/24 12:23 EDT Reminderson 12-22-2023 Reminders [address] [facility] Copper Lvlon 12-18-2023 Copper [Mass/Vol] 103 microgram/dL Invalid Interpretation Code 80-[address] [facility] Comment on above: Result Comment: This test was developed and its performance characteristicsdetermined by [facility]. It has not been cleared or approvedby the Food and Drug Administration.Detection Limit = 5Performed at: [facility] [address] [id number] MD Christiano Kolb Performed By: #### 2 146570, 0310593, 4110928, 62625144, 3999262, 3533086, 4961691, 8163068, 20940326, 4925039 ####[facility] [address] [place] [address] CBC w/ Auto Diffon 4 Basophils/100 WBC (Bld) 1.0 % Normal 0.0-2.[address] [facility] Comment on above: Performed By: #### 2 423565, 6698247, 9037652, 80883608, 8216280, 0669846, 7860743, 1105172, 46696430, 4473849 ####[address] [address] Basophils/Leukocyt es Auto (Bld) [Pure # fraction] 0.0 E9/L Normal 0.0-0.[address] [facility] Comment on above: Performed By: #### 2 249639, 1837660, 6188572, 04867792, 3023211, 1387189, 6314092, 3514621, 41008724, 6020057 ####[address] [address] Eosinophils (Bld) [#/Vol] 0.2 E9/L Normal 0.0-0.[address] [facility] Comment on above: Performed By: #### 2 884924, 1328887, 9273573, 44067808, 6749425, 4177904, 9976307, 6356047, 68428299, 9265461 ####[address] [address] Eosinophils/100 WBC (Bld) 4.1 % Normal 0.0-8.[address] [facility] Comment on above: Performed By: #### 2 415311, 3720377, 4057553, 53305866, 1513300, 6033268, 7833213, 9657589, 67816085, 3513862 ####[address] [address] Erythrocyte distribution width (RBC) [Ratio] 13.6 % Normal 10.9-14.[address] [facility] Comment on above: Performed By: #### 2 257730, 9335309, 3206902, 89720369, 5727235, 7768318, 3597550, 7708834, 48526720, 1343142 ####[facility] [address] [place] [address] Hematocrit (Bld) [Volume fraction] 36.0 % Normal 34.0-46.[address] [facility] Comment on above: Performed By: #### 2 285922, 2921119, 9925450, 10970512, 5834893, 6488120, 3956992, 9262172, 35357724, 1906435 ####[facility] [address] [place] [address] Hemoglobin (Bld) [Mass/Vol] 11.6 g/dL Low 12.0-16.[address] [facility] Comment on above: Performed By: #### 2 931171, 5662948, 7206456, 58867418, 0801205, 1945864, 1804742, 4685469, 51388442, 5799120 ####[address] [address] Lymphocytes (Bld) [#/Vol] 1.0 E9/L Normal 1.0-4.[address] [facility] Comment on above: Performed By: #### 2 506542, 2656625, 6730370, 88753969, 4761531, 7181513, 7069719, 6704603, 11668541, 5252398 ####[address] [address] Lymphocytes/100 WBC (Bld) 24.2 % Normal 14.0-50.[address] [facility] Comment on above: Performed By: #### 2 601334, 1369074, 3445979, 63015892, 4727837, 0123928, 7552211, 7564913, 23393262, 4925923 ####[place] [address] [place] [address] MCH (RBC) [Entitic mass] 30.4 pg Normal 27.0-34.[address] [facility] Comment on above: Performed By: #### 2 896307, 7385507, 3727040, 61359243, 6256983, 7754449, 6711580, 4129433, 51549953, 8867920 ####[address] [place] [address] MCHC (RBC) [Mass/Vol] 32.3 g/dL Normal 31.4-36.[address] [facility] Comment on above: Performed By: #### 2 490902, 1028713, 1378611, 32673826, 4457338, 1431107, 2390118, 6254408, 69401161, 6789758 ####[address] [place] [address] MCV (RBC) [Entitic vol] 94.0 fL Normal 80.0-100.[address] [facility] Comment on above: Performed By: #### 2 793899, 1092053, 4076503, 47005748, 3306016, 2556697, 7226166, 5947078, 66851979, 8193552 ####[address] [address] Monocytes (Bld) [#/Vol] 0.4 E9/L Normal 0.2-1.[address] [facility] Comment on above: Performed By: #### 2 555487, 4836166, 9807197, 64509164, 0399234, 7025343, 0151233, 3680472, 16513252, 1065716 ####[address] [address] Neutrophils (Bld) [#/Vol] 2.5 E9/L Normal 2.0-7.[address] [facility] Comment on above: Performed By: #### 2 087735, 4137323, 2182532, 73116075, 1052287, 1079750, 5146842, 8767141, 53138966, 3829686 ####[address] [address] Neutrophils/100 WBC (Bld) 60.7 % Normal 36.0-75.[address] [facility] Comment on above: Performed By: #### 2 127456, 6969567, 2787127, 52437742, 4952598, 6654164, 1133322, 7669972, 67795200, 6741343 ####[address] [place] [address] Platelet 84.0 E9/L Low 150.0-500.[address] [facility] Comment on above: Result Comment: Lidia newell with slide review Performed By: #### 2 159948, 6580242, 6239786, 00267662, 3424294, 4108734, 7956602, 8923364, 02256389, 0088114 ####[place] [address] [place] [address] Platelet mean volume (Bld) [Entitic vol] 9.2 fL Normal 6.4-10.[address] [facility] Comment on above: Performed By: #### 2 749606, 1348599, 6341061, 86337450, 8751720, 7967510, 1517518, 3534676, 03280979, 6304909 ####[address] [address] RBC (Bld) [#/Vol] 3.8 E12/L Low 4.3-5.[address] [facility] Comment on above: Performed By: #### 2 408358, 5716575, 6151346, 04453184, 6353244, 8700273, 9036976, 6164111, 83867390, 9602433 ####[place] [address] [place] 20[address]457 WBC corrected for nucl RBC Auto (Bld) [#/Vol] 4.0 E9/L Normal 4.0-11.[address] [facility] Comment on above: Performed By: #### 2 661578, 2941787, 7386586, 16248236, 5360738, 5660160, 2672536, 2967526, 09814215, 3989867 ####[address] [address] CHEMISTRYOrdered By: SYSTEM SYSTEM on 12-15-2023 Albumin [Mass/Vol] 3.5 g/dL Normal 3.3 - 5.0 gm/dL R emisol Chem Albumin/Globulin [Mass ratio] 1.3 {ratio} Normal 1.1 - 2.2 Remisol Chem ALP [Catalytic activity/Vol] 81 [iU]/d Normal 21 - 98 Int._Unit/L Remisol Chem ALT No additional P-5'-P [Catalytic activity/Vol] 21 [iU]/d Normal 6 - 46 Int._Unit/L Remisol Chem Anion gap [Moles/Vol] 12 mmol/L Normal 6 - 16 mEq/L Remisol Chem AST [Catalytic activity/Vol] 36 [iU]/d Normal 5 - 43 Int._Unit/L Remisol Chem Bilirubin [Mass/Vol] 1.4 mg/dL High 0.0 - 1.1 mg/dL Remisol Chem Calcium [Mass/Vol] 8.9 mg/dL Normal 8.9 - 11. 1 mg/dL Remisol Chem Chloride [Moles/Vol] 103 mmol/L Normal 101 - 111 mmol/L Remisol Chem CO2 [Moles/Vol] 25 mmol/L Normal 21 - 31 mmol/L Remis ol Chem Cobalamin (Vitamin B12) [Mass/Vol] 480 pg/mL Normal 50 - 1500 pg/mL Remisol Chem Creatinine [Mass/Vol] 2.1 mg/dL High 0.5 - 1.3 mg/dL Remisol Chem eGFR 25 mL/min/1.73 m2 Low >=59mL/min /1.73 m2 Remisol Chem Ferritin [Mass/Vol] 19 ng/mL Normal 11 - 307 ng/mL Remisol Chem Folate [Mass/Vol] 14.8 ng/mL Normal >=6.7ng/mL Remisol Chem Globulin (S) [Mass/Vol] 2.7 g/dL Normal 1.4 - 4.0 gm/dL Remisol Chem Glucose [Mass/Vol] 167 mg/dL Normal 55 - 199 mg/dL Re misol Chem Iron [Mass/Vol] 144 ug/dL Normal 35 - 153 mcg/dL Dagoberto ksenia Chem Iron binding capacity [Mass/Vol] 427 ug/dL High 250 - 400 mcg/dL Remisol Chem Iron saturation [Mass fraction] 34 % Normal 20 - 50 % Remisol Chem Potassium [Moles/Vol] 3.5 mmol/L Normal 3.5 - 5.3 mmol/L Remisol Chem Protein [Mass/Vol] 6.2 g/dL Normal 6.0 - 7.8 gm/dL R emisol Chem Sodium [Moles/Vol] 136 mmol/L Normal 135 - 145 mmol/L Remisol Chem Transferrin [Mass/Vol] 305 mg/dL Normal 200 - 370 mg/dL Remisol Chem Urea nitrogen [Mass/Vol] 20 mg/dL Normal 5 - 21 mg/dL Remisol Chem Urea nitrogen/Creatinin e [Mass ratio] 10 mg/mg Normal 10 - 20 Remisol Chem CMPon 12-15-2023 Albumin [Mass/Vol] 3.5 g/dL Normal 3.3-5.[address] [facility] Comment on above: Performed By: #### 2 737121, 9621987, 5168136, 85811592, 3834336, 3392797, 8524523, 2251357, 66803369, 2869184 ####[facility] [address] [place] [address] Albumin/Globulin (S) [Mass conc ratio] 1.3 Normal 1.1-2.[address] [facility] Comment on above: Performed By: #### 2 213800, 2925674, 9159003, 82549223, 0610851, 7202278, 3412879, 4393152, 10130446, 9561040 ####[facility] [address] [place] [address] ALP [Catalytic activity/Vol] 81 Int._Unit/L Normal 21-[address] [facility] Comment on above: Performed By: #### 2 620872, 7358516, 2645101, 63163466, 7866703, 4091784, 2827609, 0075806, 67837006, 5858241 ####[facility] [address] [place] [address] ALT No additional P-5'-P [Catalytic activity/Vol] 21 Int._Unit/L Normal 6-[address] [facility] Comment on above: Performed By: #### 2 214803, 8273046, 7088159, 01767467, 9722301, 7290647, 4369119, 3348343, 93356416, 6692547 ####[facility] [address] [place] [address] Anion gap [Moles/Vol] 12 mmol/L Normal 6-[address] [facility] Comment on above: Performed By: #### 2 028488, 2229681, 1536991, 98074283, 6283229, 3857009, 8092700, 2600945, 76132435, 8000759 ####[facility] [address] [place] [address] AST [Catalytic activity/Vol] 36 Int._Unit/L Normal 5-[address] [facility] Comment on above: Performed By: #### 2 450228, 1672379, 8225425, 14745560, 3206465, 9002249, 9477796, 8302940, 78720625, 9788073 ####[address] [address] Bilirubin [Mass/Vol] 1.4 mg/dL High 0.0-1.[address] [facility] Comment on above: Performed By: #### 2 032387, 8240420, 7916959, 98199611, 1752705, 9860825, 2735355, 2759134, 09468931, 8933566 ####[address] [place] [address] Calcium [Mass/Vol] 8.9 mg/dL Normal 8.9-11.[address] [facility] Comment on above: Performed By: #### 2 693318, 6979117, 2388262, 22718910, 9452316, 1401354, 7024755, 8599660, 01993717, 3674932 ####[address] [place] [address] Chloride [Moles/Vol] 103 mmol/L Normal 101-[address] [facility] Comment on above: Performed By: #### 2 673350, 5640296, 9356575, 84090445, 9338557, 2256465, 4234714, 6509641, 42785777, 4511274 ####[facility] [address] [place] [address] CO2 [Moles/Vol] 25 mmol/L Normal 21-[address] [facility] Comment on above: Performed By: #### 2 882023, 2773745, 8677311, 41828301, 5978913, 5527791, 2835426, 2877741, 80306960, 5730738 ####[facility] [address] [place] [address] Creatinine [Mass/Vol] 2.1 mg/dL High 0.5-1.[address] [facility] Comment on above: Performed By: #### 2 563165, 7797661, 7730720, 43923031, 1857044, 9753043, 9788911, 6027080, 00544179, 5698681 ####[facility] [address] [place] [address] Globulin (S) [Mass/Vol] 2.7 g/dL Normal 1.4-4.[address] [facility] Comment on above: Performed By: #### 2 970563, 1399539, 5567856, 68227871, 7324550, 9193250, 9457224, 1824041, 21489171, 5920915 ####[facility] [address] [place] [address] Glucose [Mass/Vol] 167 mg/dL Normal 55-[address] [facility] Comment on above: Performed By: #### 2 332591, 4541385, 5983397, 71431478, 6855662, 8279342, 7101290, 8107419, 35268588, 5902430 ####[facility] [address] [place] [address] Potassium [Moles/Vol] 3.5 mmol/L Normal 3.5-5.[address] [facility] Comment on above: Performed By: #### 2 199740, 0381907, 7797073, 65955326, 9281963, 2532462, 7760129, 8340355, 02456307, 0473794 ####[facility] [address] [place] [address] Protein [Mass/Vol] 6.2 g/dL Normal 6.0-7.8 [facility] [facility] Comment on above: Performed By: #### 2 889255, 8983857, 0123337, 14303455, 3317427, 0933034, 4138627, 2550354, 43890369, 0765865 ####[facility] [address] [place] [address] Sodium [Moles/Vol] 136 mmol/L Normal 135-[address] [facility] Comment on above: Performed By: #### 2 444756, 4841739, 2077092, 16697098, 6358018, 8905488, 7643818, 5859097, 60063121, 8393046 ####[address] [place] [address] Urea nitrogen [Mass/Vol] 20 mg/dL Normal 5-[address] [facility] Comment on above: Performed By: #### 2 352570, 0813882, 9129458, 88740989, 7270853, 7807707, 3352937, 4700895, 02822692, 5698164 ####[address] [place] [address] Urea nitrogen/Creatinin e [Mass ratio] 10 No Units Normal 10-[address] [facility] Comment on above: Performed By: #### 2 974414, 6973175, 4914224, 47583098, 6625217, 2118921, 8129866, 7641260, 12259916, 0019283 ####[address] [place] [address] Consent for Treatmenton Consent for Treatment [id number]#1.00TIFF Normal [facility] Consent for Treatment [id number]#1.00TIFF Normal [facility] Ferritinon 12-15-2023 Ferritin [Mass/Vol] 19 ng/mL Normal 11-[address] [facility] Comment on above: Performed By: #### 2 674930, 0865533, 5184534, 76905812, 4377181, 5141430, 0847743, 0428381, 71494656, 8417975 ####[facility] [address] [place] [address] Folateon 12-15-2023 Folate [Mass/Vol] 14.8 ng/mL Normal >=6.[address] [facility] Comment on above: Performed By: #### 2 936577, 1168006, 5374442, 49142376, 0976284, 9277290, 1773442, 1582536, 13536567, 8504901 ####[facility] [address] [place] [address] HEMATOLOGYOrdered By: SYSTEM SYSTEM on 12-15-2023 Basophils/100 WBC (Bld) 1.0 % Normal 0.0 - 2.0 % Remisol Heme Basophils/Leukocyt es Auto (Bld) [Pure # fraction] 0.0 E9/L Normal 0.0 - 0.2 E9/L Remisol Heme Eosinophils (Bld) [#/Vol] 0.2 E9/L Normal 0.0 - 0.5 E9/L Remisol Heme Eosinophils/100 WBC (Bld) 4.1 % Normal 0.0 - 8.0 % Remisol Heme Erythrocyte distribution width (RBC) [Ratio] 13.6 % Normal 10.9 - 14.2 % Remisol Heme Hematocrit (Bld) [Volume fraction] 36.0 % Normal 34.0 - 46.0 % Remisol Heme Hemoglobin (Bld) [Mass/Vol] 11.6 g/dL Low 12.0 - 16.0 gm/dL Remisol Heme Lymphocytes (Bld) [#/Vol] 1.0 E9/L Normal 1.0 - 4.0 E9/L Remisol Heme Lymphocytes/100 WBC (Bld) 24.2 % Normal 14.0 - 50.0 % Remisol Heme MCH (RBC) [Entitic mass] 30.4 pg Normal 27.0 - 34.0 pg Remisol Heme MCHC (RBC) [Mass/Vol] 32.3 g/dL Normal 31.4 - 36.0 gm/dL Remisol Heme MCV (RBC) [Entitic vol] 94.0 fL Normal 80.0 - 100.0 fL Remisol Heme Monocytes (Bld) [#/Vol] 0.4 E9/L Normal 0.2 - 1.0 E9/L Remisol Heme Monocytes/100 WBC (Bld) 10.0 % Normal 4.0 - 14.0 % Remisol Heme Neutrophils (Bld) [#/Vol] 2.5 E9/L Normal 2.0 - 7.5 E9/L Remisol Heme Neutrophils/100 WBC (Bld) 60.7 % Normal 36.0 - 75.0 % Remisol Heme Platelet 84.0 E9/L Low 150.0 - 500.0 E9/L [facility] Comment on above: Result Comment: Lidia newell with slide review Platelet mean volume (Bld) [Entitic vol] 9.2 fL Normal 6.4 - 10.8 fL Remisol Heme RBC (Bld) [#/Vol] 3.8 E12/L Low 4.3 - 5.9 E12/L Re misol Heme WBC corrected for nucl RBC Auto (Bld) [#/Vol] 4.0 E9/L Normal 4.0 - 11.0 E9/L Remisol Heme Ironon 12-15-2023 Iron [Mass/Vol] 144 microgram/dL Normal 35-153 [facility] Comment on above: Performed By: #### 2 546800, 7108861, 5051208, 71821498, 3347253, 9607046, 8983644, 9813974, 28582367, 1410535 ####[facility] [address] [place] [address] Iron Saturationon 12-15-2023 Iron binding capacity [Mass/Vol] 427 microgram/dL High 250-[address] [facility] Comment on above: Performed By: #### 2 885058, 1146166, 6971044, 45682626, 8062310, 2468716, 6515427, 5422371, 15786877, 8917892 ####[facility] [address] [place] [address] Iron saturation [Mass fraction] 34 % Normal 20-[address] [facility] Comment on above: Performed By: #### 2 860805, 6846684, 3627076, 16925734, 2895331, 1264867, 6978688, 7365270, 12974475, 5378136 ####[facility] [address] [place] [address] Oncology Progress Noteon Oncology Progress Note Normal [facility] Transferrinon 12-15-2023 Transferrin [Mass/Vol] 305 mg/dL Normal 200-[address] [facility] Comment on above: Performed By: #### 2 229319, 3294439, 7462622, 20375690, 3522968, 3767381, 5400692, 8981922, 67290819, 3916805 ####[address] [place] [address] Vit B12on 12-15-2023 Cobalamin (Vitamin B12) [Mass/Vol] 480 pg/mL Normal 50-[address] [facility] Comment on above: Performed By: #### 2 770264, 9790387, 6828701, 98393412, 8275214, 7161909, 9270882, 9739261, 06558927, 2398511 ####[facility] [address] [place] [address] eGFRon 12-15-2023 eGFR 25 mL/min/1.73 m2 Low >=[address] [facility] Comment on above: Order Comment: Order added by Discern Expert. Performed By: #### 2 654128, 2650227, 7607438, 13266656, 1482561, 2966940, 5357766, 9051935, 59933634, 8578745 ####[facility] [address] [place] [address] Consultation Noteon 12-04-19 24 Consultation Note [id number]#1.00TIFF Normal [facility] Dexa Scanson 11-24-2023 Dexa Scans [id number]#1.00TIFF Normal [facility] Outside Mammographyon 2023 Outside Mammography [id number]#1.00TIFF Normal [facility] Consent for Procedure/Surger yon 10-03-2023 Consent for Procedure/Surgery [id number]#1.00TIFF Normal [facility] Ambulatory Visit Summaryon 1 12-02-2022 Ambulatory Visit Summary Normal [address] [address]- \.br\ You Need to Schedule the Following Appointments\.b r\ Follow Up with Ashlie Mead CNP When: In 4 months\.br\ Where:\.br\ You Need to Complete the Following\.br\ CBC w/ Auto Diff, Blood, Routine collect, 10/01/23, Order for future visit, Lab Collect, Anemia, Not Required, Print Label By Order Location\.br\ Medications\.br \ What How Much When Why Instructions\.b r\ New polyethylene glycol 3350 with electrolytes (NuLYTELY Mae oral powder for reconstitution) See instructions Prior to colonsocopy. Pickup at [facility]/pharmacy #[id number]\.br\ Unchanged albuterol (Albuterol (Eqv-ProAir HFA) 90 mcg/ [...] physician if questions or concerns \.br\ Unchanged budesonide-form oterol (Symbicort 160/ 4.5 inhalation aerosol with adapter) 2 Puffs Inhalation 2 times a day Contact prescribing physician if questions or concerns \.br\ Unchanged fluticasone nasal (Flonase 0.05 mg/ inh [place]) 2 Sprays Nasal Inhalation Every day each nostril Contact prescribing physician if questions or concerns \.br\ Unchanged glipiZIDE (glipiZIDE 5 mg Tab) 1 Tablets By Mouth Every day Contact prescribing physician if questions or concerns \.br\ Unchanged hydrochlorothia zide-losartan (hydrochlorothi azide-losartan 25 mg-100 mg Tab) 1 Tablets By [...] physician if questions or concerns \.br\ Pharmacy Information\.br \ [id number]: [address], [place] [id number] [phone]\.br\ Allergies\.br\ metFORMIN (Nausea, Dizziness, Unknown)\.br\ sulfa drugs (Hives, Unknown)\.br\ Problems\.br\ Ongoing - Any problem that you are currently receiving treatment for.\.br\ Allergic rhinitis\.br\ Anal fissure\.br\ Anemia\.br\ Breast cancer screening\.br\ Colon cancer screening\.br\ COVID\.br\ GI bleed\.br\ History of colon polyps\.br\ Hospital discharge follow-up\.br\ Hypertension\.b r\ Hypokalemia\.br \ Hypothyroid\.br \ Lymphopenia\.br \ Onychomycosis\. br\ Pericapsulitis of shoulder\.br\ Polyp of colon\.br\ Positive colorectal cancer screening using Cologuard test\.br\ Restrictive lung disease\.br\ Rotator cuff tendonitis\.br\ Stage 3a chronic kidney disease (CKD)\.br\ Thrombocytopeni a\.br\ Total bilirubin, elevated\.br\ Tremor, essential\.br\ Type 2 diabetes mellitus with stage 3a chronic kidney disease and hypertension\.b r\ Patient Survey\.br\ You may receive a survey [...] syndrome.\.br\ ? \.br\ Peutz?Jeghers syndrome.\.br\ ? \.br\ MUTYH-associate d polyposis (MAP).\.br\ ? \.br\ Being overweight.\.br \ ? \.br\ Certain lifestyle factors. These include [...] chewing tobacco. If you need help quitti [facility] Gastroenterology Office/Clin ic Noteon 10-01-2023 Gastroenterology Office/Clinic Note Normal [facility] Comment on above: Result Comment: Elec tronically Signed By: Ashlie Mead CNP\.br\Date and Time Signed: 10/01/23 12:54 EST Patient Educationon 10-01-20 Patient Education Normal [facility] Ambulatory Visit Summaryon 1 11-30-2022 Ambulatory Visit Summary Invalid Interpretation Code [address] [place] [address]- \.br\ Someone Will Contact You Regarding These Appointments\.b r\ [facility] [place]ulatory Referral, Podiatry, 09/29/23 11:47:00 EST, Hypertension [facility] Ambulatory Visit Summary Normal [address] [place] [address]- \.br\ Medications\.br \ What How Much When Why Instructions\.b r\ Unchanged albuterol (Albuterol (Eqv-ProAir HFA) 90 mcg/ inh inhalation aerosol) 2 Puffs Inhalation Every 6 hours\.br\ Unchanged aspirin (aspirin 81 mg oral capsule) 1 Capsules By Mouth Every day\.br\ Unchanged atorvastatin (atorvastatin 40 mg Tab) See instructions TAKE 1 TABLET BY MOUTH EVERY DAY \.br\ Unchanged budesonide (budesonide 90 mcg/ inh inhalation powder) 1 Inhalation Inhalation 2 times a day\.br\ Unchanged budesonide-form oterol (Symbicort 160/ 4.5 inhalation aerosol with adapter) 2 Puffs Inhalation 2 times a day\.br\ Unchanged fluticasone nasal (Flonase 0.05 mg/ inh [place]) 2 Sprays Nasal Inhalation Every day each nostril \.br\ Unchanged glipiZIDE (glipiZIDE 5 mg Tab) 1 Tablets By Mouth Every day\.br\ Unchanged hydrochlorothia zide-losartan (hydrochlorothi azide-losartan 25 mg-100 mg Tab) 1 Tablets By [...] History of colon polyps\.br\ Hospital discharge follow-up\.br\ Hypertension\.b r\ Hypokalemia\.br \ Hypothyroid\.br \ Lymphopenia\.br \ Pericapsulitis of shoulder\.br\ Polyp of colon\.br\ Positive colorectal cancer screening using Cologuard test\.br\ Restrictive lung disease\.br\ Rotator cuff tendonitis\.br\ Stage 3a chronic kidney disease (CKD)\.br\ Thrombocytopeni a\.br\ Total bilirubin, elevated\.br\ Tremor, essential\.br\ Type 2 diabetes mellitus with stage 3a chronic kidney disease and hypertension\.b r\ Patient Survey\.br\ You may receive a survey via text or e-mail asking about your office visit. Please share your experience with us by completing your survey. We appreciate your feedback and thank you for choosing us for your care.\.br\ \.br\ [facility] Family Medicine Office/Clini c Noteon 09-29-2023 Family Medicine Office/Clinic Note Normal [facility] Comment on above: Result Comment: Elec tronically Signed By: Willian Barrios MD\.br\Date and Time Signed: 09/29/23 11:54 EST Patient Educationon 09-29-20 23 Patient Education Normal [facility] Physician Referralon 023 Physician Referral [id number]#1.00TIFF Normal [facility] RAD - MISCon 09-25-2023 [place] [facility] [id number]#1.00TIFF Normal [facility] Ambulatory Visit Summaryon 1 11-25-2022 Ambulatory Visit Summary Invalid Interpretation Code [address] [address]- \.br\ Friday 11:00 AM EST \.br\ With:\.br\ Where: [facility] Family Medicine Office/Clini c Noteon 09-24-2023 [facility] Medicine Office/Clinic Note Normal [facility] Comment on above: Result Comment: Elec tronically Signed By: Willian Barrios MD\.br\Date and Time Signed: 09/24/23 14:57 EST Patient Educationon 09-24-20 Patient Education Normal [facility] Ambulatory Visit Summaryon 1 11-18-2022 Ambulatory Visit Summary Invalid Interpretation Code [address] [address]- \.br\ Friday 11:00 AM EST \.br\ With:\.br\ Where: [facility] Family Medicine Office/Clini c Noteon 09-17-2023 [facility] Medicine Office/Clinic Note Normal [facility] Comment on above: Result Comment: Elec tronically Signed By: Willian Barrios MD\.br\Date and Time Signed: 09/17/23 17:34 EST Patient Educationon 09-17-20 Patient Education Normal [facility] .Interpretation:on 3 HCV Ab IA Ql Comment Invalid Interpretation Code [facility] Comment on above: Result Comment: Not infected with HCV unless early or acute infection issuspected (which may be delayed in an immunocompromisedindividual), or other evidence exists to indicate HCV infection.Performed at: [address] [place], [place] [id number] PhD David Alexandra Performed By: #### 2 958829, 2628250, 9283987, 3285464, 9981003, 4049284, 1443638, 67992554, 9424684, 4936664, 1726996842, 5670772, 0081783404, 974423708, 7575115, 3705219, 3455872182, 5899502 ####[facility] [address] [place] [address] HCV Antibody RFX to Quant PC Lanre 09-16-2023 HCV IgG IA Ql Non-Reactive Invalid Interpretation Code Non Reactive [facility] Comment on above: Result Comment: Perf ormed at: [id number] [place], [place] [id number] PhD David Alexandra Performed By: #### 2 325175, 8348553, 9101954, 8484000, 1030254, 3823946, 4431665, 96208166, 7763974, 9590110, 8667257452, 2180960, 5470648082, 233274914, 2103172, 5144780, 0236804908, 3487572 ####[facility] [address] [place] [address] HIV Screen 4th Generation wR fxon 09-16-2023 HIV 1+2 Ab+HIV1 p24 Ag IA Ql Non-Reactive Invalid Interpretation Code Non Reactive [facility] Comment on above: Result Comment: HIV NegativeHIV-1/HIV-2 antibodies and HIV-1 p24 antigen were NOT detected.There is no laboratory evidence of HIV infection.Performed at: [facility] [place], [place] [id number] PhD David Alexandra Performed By: #### 2 166947, 1220527, 0448975, 7008745, 3440354, 5361051, 6762209, 49788914, 0454742, 9062007, 6220295174, 5913528, 4549169391, 745914857, 4806746, 5472625, 7234852334, 3914322 ####[facility] [address] [place] [address] Hep A IgMon 09-16-2023 HAV IgM IA Ql Negative Invalid Interpretation Code Negative [facility] Comment on above: Result Comment: Perf ormed at: [address] [id number] PhD David Alexandra Performed By: #### 2 593790, 8772667, 2259907, 9757474, 1563756, 2571138, 0884668, 79709210, 3259405, 3149054, 0720325372, 6836752, 3206735699, 326488599, 9940152, 2239110, 8805000292, 2305743 ####[address] [address] Hep B Core Ab, IgMon 023 HBV core IgM IA Ql Negative Invalid Interpretation Code Negative [facility] Comment on above: Result Comment: Perf ormed at: [address] [id number] PhD David Alexandra Performed By: #### 2 470882, 3601082, 3471947, 0153161, 9923916, 0826138, 8600561, 28307833, 3271533, 9226194, 8332048487, 1232975, 6658976707, 851472244, 8104301, 9618383, 5314105622, 2216978 ####[address] [place] [address] Hep Bs Abon 09-16-2023 HBV surface Ab Ql (S) Non-Reactive Invalid Interpretation Code [facility] Comment on above: Result Comment: Non Reactive: Inconsistent with immunity,less than 10 mIU/mLReactive: Consistent with immunity,greater than 9.9 mIU/mLPerformed at: [address] [id number] PhD David Alexandra Performed By: #### 2 121276, 3257194, 3475899, 2682147, 1003723, 5393586, 8567554, 06695139, 7510785, 7228202, 7456425310, 4195494, 5938474847, 935480429, 3920931, 3376950, 8924502203, 3796054 ####[facility] [address] [place] [address] Hep Bs Agon 09-16-2023 HBV surface Ag IA Ql Negative Invalid Interpretation Code Negative [facility] Comment on above: Result Comment: Perf ormed at: [facility] [address] [place], [place] [id number] PhD David Alexandra Performed By: #### 2 603566, 5585339, 5244863, 9041105, 0268235, 6893715, 2564159, 16682303, 0995403, 3764579, 0616365478, 2664109, 4702606628, 416928330, 0033521, 1433030, 0461815628, 9223382 ####[facility] [address] [place] [address] Auto Diffon 09-15-2023 Basophils/100 WBC (Bld) 1.3 % Normal 0.0-2.[address] [facility] Comment on above: Order Comment: Order Added by Discern Expert. Performed By: #### 2 790360, 6595205, 1408573, 0767410, 2137103, 5499652, 6285991, 59552134, 9053777, 8605537, 2181236815, 0182552, 4269340215, 377773450, 4026632, 3880142, 6240261045, 7042748 ####[address] [place] [address] Basophils/Leukocyt es Auto (Bld) [Pure # fraction] 0.0 E9/L Normal 0.0-0.[address] [facility] Comment on above: Order Comment: Order Added by Discern Expert. Performed By: #### 2 847565, 1430480, 6251808, 5491778, 3501250, 4145047, 8359695, 03174094, 7519672, 2973291, 1743829553, 8674432, 2005265985, 680675781, 4188731, 0291288, 5547511207, 9928145 ####[facility] [address] [place] [address] Eosinophils/100 WBC (Bld) 3.4 % Normal 0.0-8.[address] [facility] Comment on above: Order Comment: Order Added by Discern Expert. Performed By: #### 2 582424, 3426106, 5109403, 2865891, 6085186, 9457746, 3651528, 30971253, 5540714, 1025154, 6356012780, 3285094, 9814240770, 219983191, 8582861, 4950762, 6287923338, 6090195 ####[address] [place] [address] Eosinophils/Leukoc ytes Auto (Bld) [Pure # fraction] 0.1 E9/L Normal 0.0-0.[address] [facility] Comment on above: Order Comment: Order Added by Discern Expert. Performed By: #### 2 142152, 6036034, 4729096, 7793494, 6782966, 8829148, 2843564, 91849906, 7204837, 7929464, 9218067836, 0894440, 2550072513, 886166779, 6513079, 4897136, 0543214767, 1790530 ####[address] [place] [address] Lymphocytes/100 WBC (Bld) 25.0 % Normal 14.0-50.[address] [facility] Comment on above: Order Comment: Order Added by Discern Expert. Performed By: #### 2 969793, 7381552, 7687755, 3481975, 1265858, 6491221, 2082520, 15587888, 5430570, 5250641, 0043126427, 7514428, 3774026796, 577868971, 1597175, 2407707, 1625095399, 3812908 ####[address] [place] [address] Lymphocytes/Leukoc ytes Auto (Bld) [Pure # fraction] 0.7 E9/L Low 1.0-4.[address] [facility] Comment on above: Order Comment: Order Added by Discern Expert. Performed By: #### 2 889307, 7288468, 8881611, 6748703, 8799392, 2900867, 5859508, 74612000, 4320506, 8251470, 7845582380, 0184155, 2535238106, 914031547, 2560950, 1326805, 1998121852, 3639568 ####[address] [place] [address] Monocytes/100 WBC (Bld) 10.1 % Normal 4.0-14.[address] [facility] Comment on above: Order Comment: Order Added by Discern Expert. Performed By: #### 2 030287, 9508069, 9665012, 3830751, 1649356, 0942183, 1291234, 71334371, 0107073, 3987715, 9586043441, 0653380, 2988978570, 053413174, 9214321, 0298752, 5635852483, 3093590 ####[address] [address] Monocytes/Leukocyt es Auto (Bld) [Pure # fraction] 0.3 E9/L Normal 0.2-1.[address] [facility] Comment on above: Order Comment: Order Added by Discern Expert. Performed By: #### 2 838787, 0543147, 3434931, 2479441, 5497302, 7026594, 6813747, 29581909, 8973867, 5453541, 2833684572, 6798000, 2822991373, 451491328, 8203627, 6425510, 5488740222, 7299318 ####[address] [place] [address] Neutrophils/100 WBC (Bld) 60.2 % Normal 36.0-75.[address] [facility] Comment on above: Order Comment: Order Added by Discern Expert. Performed By: #### 2 259433, 5216266, 0179755, 1741958, 6433146, 2752436, 0925192, 66948869, 4775525, 5210147, 0147947747, 6394423, 0920406144, 272814396, 4008834, 4176701, 7337285747, 0823951 ####[facility] [address] [place] [address] Neutrophils/Leukoc ytes Auto (Bld) [Pure # fraction] 1.6 E9/L Low 2.0-7.[address] [facility] Comment on above: Order Comment: Order Added by Discern Expert. Performed By: #### 2 737874, 9534393, 1725631, 4581103, 8029831, 9940432, 9547206, 79476668, 7388454, 8431569, 0664351608, 9344256, 4062554013, 948310602, 9789902, 6891868, 2228096900, 1140653 ####[address] [place] [address] CBC w/ Auto Diffon 3 Erythrocyte distribution width (RBC) [Ratio] 13.2 % Normal 10.9-14.[address] [facility] Comment on above: Performed By: #### 2 928959, 4539398, 5402379, 2538198, 1638364, 3841460, 1187925, 52806649, 4639312, 8412329, 0838958682, 5763129, 3100744755, 246493696, 5693027, 6090121, 4829684389, 1233536 ####[facility] [address] [place] [address] Hematocrit (Bld) [Volume fraction] 36.5 % Normal 34.0-46.[address] [facility] Comment on above: Performed By: #### 2 036844, 3651564, 9693115, 1350177, 9207819, 4376813, 1204882, 89976222, 1736201, 2282751, 6053273740, 0923564, 4951464784, 902731918, 8739315, 0744828, 6635573919, 8443058 ####[facility] [address] [place] [address] Hemoglobin (Bld) [Mass/Vol] 12.3 g/dL Normal 12.0-16.[address] [facility] Comment on above: Performed By: #### 2 185225, 1977533, 3311533, 3796310, 0000954, 2701153, 8431425, 43185964, 2492039, 6825007, 3955733512, 6638175, 5375725605, 892562347, 5695217, 0775551, 2398208976, 3547617 ####[address] [address] MCH (RBC) [Entitic mass] 31.3 pg Normal 27.0-34.[address] [facility] Comment on above: Performed By: #### 2 613514, 6263496, 5864114, 6453666, 1601489, 1162911, 8038280, 66622074, 7432318, 5954442, 7636502300, 1243254, 5399332082, 150799444, 8362280, 7618112, 1221120692, 5826350 ####[address] [address] MCHC (RBC) [Mass/Vol] 33.7 g/dL Normal 31.4-36.[address] [facility] Comment on above: Performed By: #### 2 815917, 6941106, 3977047, 5494282, 3072240, 2969459, 3037713, 24434588, 3742270, 6273715, 9152836907, 7810257, 1653141328, 774375571, 3591416, 3913932, 6770167588, 3550253 ####[address] [place] [address] MCV (RBC) [Entitic vol] 92.8 fL Normal 80.0-100.[address] [facility] Comment on above: Performed By: #### 2 977387, 7366512, 4094189, 2579719, 7909866, 2501311, 4747158, 04313423, 1504387, 8930715, 8973613679, 5718272, 4242330457, 944124480, 6243309, 0478234, 7396347002, 4154208 ####[facility] [address] [place] [address] Platelet mean volume (Bld) [Entitic vol] 8.5 fL Normal 6.4-10.[address] [facility] Comment on above: Performed By: #### 2 857460, 0541053, 5803818, 3447209, 6263762, 9680109, 9615185, 68581246, 1708075, 5375033, 6855206955, 5697162, 7903670016, 560575309, 2135488, 8674622, 1523045866, 6494740 ####[address] [address] Platelets (Bld) [#/Vol] 89.0 E9/L Low 150.0-500.[address] [facility] Comment on above: Result Comment: Plat elet count verified using smear estimate Performed By: #### 2 106374, 0685778, 5992628, 2880001, 4774126, 7351609, 1937018, 23829565, 3712153, 8772063, 2429235453, 9829509, 7861271997, 946903380, 4685199, 1667855, 0426314363, 6489840 ####[facility] [address] [place] [address] RBC (Bld) [#/Vol] 3.9 E12/L Low 4.3-5.[address] [facility] Comment on above: Performed By: #### 2 460234, 7790446, 4690174, 5445398, 8495538, 1174430, 1307510, 34184131, 7493486, 6197124, 0054901826, 5051218, 8345316667, 960779552, 2644781, 3618740, 5041205414, 4937925 ####[facility] [address] [place] [address] WBC corrected for nucl RBC Auto (Bld) [#/Vol] 2.6 E9/L Low 4.0-11.[address] [facility] Comment on above: Performed By: #### 2 460795, 1686547, 6204176, 5192990, 3468521, 5109023, 0149023, 40462581, 2228892, 7577930, 0921612638, 5165069, 6821421037, 776591114, 8006668, 6340965, 2134009202, 2376830 ####[facility] [address] [place] [address] CHEMISTRYOrdered By: SYSTEM SYSTEM on 09-15-2023 Albumin [...] Calcium [Mass/Vol] 9.0 mg/dL Normal 8.9 - 11. 1 mg/dL [facility] Chloride [Moles/Vol] 103 mmol/L Normal 101 - 111 mmol/L [facility] CO2 [Moles/Vol] 24 mmol/L Normal 21 - 31 mmol/L [facility] Cobalamin (Vitamin B12) [Mass/Vol] 508 pg/mL Normal 50 - 1500 pg/mL [facility] Creatinine [Mass/Vol] 1.1 mg/dL Normal 0.5 - 1.3 mg/dL [facility] Ferritin [Mass/Vol] 20 ng/mL Normal 11 - 307 ng/mL [facility] Comment on above: Interpretive Data: N ORMALS MEN <30 YRS 16-132 ng/mL MEN >30 YRS 8-338 ng/mL WOMEN (PREMEN) 6-104 ng/mL WOMEN (POSTMEN) 12-210 ng/mL Folate [Mass/Vol] 14.7 ng/mL Normal >=6.7ng/mL [facility] GFR/1.73 sq M.predicted among non-blacks MDRD (S/P/Bld) [Vol rate/Area] 54 mL/min/1.73 m2 Low >=59mL/min/1.73 m2 [facility] S Comment on above: Interpretive Data: [...] ug/dL High 250 - 400 mcg/dL [facility] Iron saturation [Mass fraction] 18 % Low 20 - 50 % [facility] LDH [Catalytic activity/Vol] 181 [iU]/d Normal 93 - 218 Int._Unit/L [facility] Potassium [Moles/Vol] 3.9 mmol/L Normal 3.5 - 5.3 mmol/L [facility] Protein [Mass/Vol] 6.9 g/dL Normal 6.0 - 7.8 gm/dL [facility] [place] [facility] Sodium [Moles/Vol] 134 mmol/L Low 135 - 145 mmol/L [facility] [place] [facility] Transferrin [Mass/Vol] 286 mg/dL Normal 200 - 370 mg/dL [facility] Urea nitrogen [Mass/Vol] 12 mg/dL Normal 5 - 21 mg/dL [facility] [place] [facility] Urea nitrogen/Creatinin e [Mass ratio] 11 mg/mg Normal 10 - 20 [facility] CMPon 09-15-2023 Albumin [Mass/Vol] 3.5 g/dL Normal 3.3-5.[address] [facility] Comment on above: Performed By: #### 2 070462, 9581329, 3530181, 6340080, 4620713, 3834660, 9761436, 10002690, 5842435, 2676441, 3224797266, 6321399, 8274997622, 286116428, 7814567, 8645220, 2839283449, 6007635 ####[facility] [address] [place] [address] Albumin/Globulin (S) [Mass conc ratio] 1.0 Low 1.1-2.[address] [facility] Comment on above: Performed By: #### 2 856366, 2109313, 5811011, 7110576, 4947745, 9450942, 3759009, 58714816, 4026879, 0830735, 2370586516, 9444318, 9702350926, 305633009, 0644644, 6184656, 9621967759, 4272369 ####[facility] [address] [place] [address] ALP [Catalytic activity/Vol] 81 Int._Unit/L Normal 21-[address] [facility] Comment on above: Performed By: #### 2 242437, 2762432, 5913972, 0278867, 5858812, 9113948, 9550361, 94016430, 5270820, 0295809, 8624630501, 7325132, 4538872203, 494089907, 4135536, 3597470, 8902117676, 6765461 ####[facility] [address] [place] [address] ALT No additional P-5'-P [Catalytic activity/Vol] 23 Int._Unit/L Normal 6-[address] [facility] Comment on above: Performed By: #### 2 283354, 8521535, 4536822, 5091044, 6221389, 3700803, 2999147, 00295215, 2823886, 5657589, 8486855365, 4459781, 7761304685, 236557307, 2808108, 7760922, 9661260392, 0176625 ####[address] [place] [address] Anion gap [Moles/Vol] 11 mmol/L Normal 6-[address] [facility] Comment on above: Performed By: #### 2 375415, 8979291, 3069406, 9938335, 1977406, 6184435, 8489615, 09892453, 2269691, 9636586, 1217243939, 2660038, 5139901405, 835962205, 5939710, 7687895, 1398720659, 0103061 ####[address] [place] [address] AST [Catalytic activity/Vol] 42 Int._Unit/L Normal 5-[address] [facility] Comment on above: Performed By: #### 2 085191, 4068432, 2483864, 7715597, 5385130, 9557705, 3335954, 52533355, 8272938, 8449596, 4097033677, 1949994, 4765932604, 702934833, 2260374, 4751036, 6956448695, 1446590 ####[facility] [address] [place] [address] Bilirubin [Mass/Vol] 1.0 mg/dL Normal 0.0-1.[address] [facility] Comment on above: Performed By: #### 2 160790, 0959048, 3535799, 8103660, 3437991, 1494763, 2265857, 07032979, 8715921, 4594837, 9403701282, 1754542, 5792809567, 347586905, 3296307, 7003677, 0719113912, 9052363 ####[facility] [address] [place] [address] Calcium [Mass/Vol] 9.0 mg/dL Normal 8.9-11.[address] [facility] Comment on above: Performed By: #### 2 840763, 6971551, 5207273, 1877333, 6498778, 9879446, 8663801, 19229716, 4623470, 8506408, 1936916803, 2859869, 6284570457, 028373386, 1286461, 6828771, 3813860926, 9404925 ####[address] [place] [address] Chloride [Moles/Vol] 103 mmol/L Normal 101-[address] [facility] Comment on above: Performed By: #### 2 265422, 1607526, 2786840, 4980966, 6848203, 0139030, 6126335, 33136986, 4202597, 2634610, 5344227400, 5903105, 2846545433, 397031068, 0421091, 5565300, 4132498904, 0542516 ####[facility] [address] [place] [address] CO2 [Moles/Vol] 24 mmol/L Normal 21-[address] [facility] Comment on above: Performed By: #### 2 815822, 1915730, 7442929, 4323210, 0004227, 0674444, 0877442, 79487165, 7512615, 9503877, 9653125511, 8801660, 3353233358, 603738736, 3489125, 0760747, 7574751739, 3755305 ####[facility] [address] [place] [address] Creatinine [Mass/Vol] 1.1 mg/dL Normal 0.5-1.[address] [facility] Comment on above: Performed By: #### 2 567853, 3904598, 6048129, 9937198, 8654133, 1295162, 1425447, 01272229, 5314097, 3862648, 2138034925, 0786272, 1853277914, 364979164, 1917885, 3023729, 0295014226, 8424000 ####[facility] [address] [place] [address] Globulin (S) [Mass/Vol] 3.4 g/dL Normal 1.4-4.[address] [facility] Comment on above: Performed By: #### 2 026932, 7873307, 3562880, 7233835, 0922266, 0646191, 7496465, 82231898, 8305132, 3282840, 5294643193, 2623309, 9757641253, 941767344, 5508751, 5501366, 3396409377, 9345896 ####[facility] [address] [place] [address] Glucose [Mass/Vol] 307 mg/dL High 55-[address] [facility] Comment on above: Result Comment: If t his glucose result represents a fasting glucose, interpretation should refer to the following reference range: 55-99 mg/dL Performed By: #### 2 557384, 1352336, 3627495, 3283174, 2277295, 1028512, 1607058, 88122473, 8516004, 4439946, 9277809280, 8171923, 3192549979, 872096785, 6658012, 3332691, 1049710088, 7257133 ####[facility] [address] [place] [address] Potassium [Moles/Vol] 3.9 mmol/L Normal 3.5-5.[address] [facility] Comment on above: Performed By: #### 2 369359, 3560548, 5393834, 7685179, 1525674, 0442375, 2592096, 67871821, 5291220, 7673828, 5654634986, 5719581, 5073502163, 217182999, 4750628, 7727060, 5543744496, 9887783 ####[facility] [address] [place] [address] Protein [Mass/Vol] 6.9 g/dL Normal 6.0-7.[address] [facility] Comment on above: Performed By: #### 2 170819, 4946790, 8644586, 6051166, 7517427, 1164938, 9230964, 94956461, 3384290, 0478496, 9591938417, 9861498, 7131338778, 030338402, 0883081, 2309102, 9175933232, 2286910 ####[facility] [address] [place] [address] Sodium [Moles/Vol] 134 mmol/L Low 135-[address] [facility] Comment on above: Performed By: #### 2 696285, 0531952, 4225843, 0073441, 0015923, 7697843, 4235591, 96462739, 9531424, 1559645, 7582061818, 1442394, 4573681941, 184793481, 7955786, 3494133, 9494516072, 8174039 ####[facility] [address] [place] [address] Urea nitrogen [Mass/Vol] 12 mg/dL Normal 5-[address] [facility] Comment on above: Performed By: #### 2 796032, 4913116, 0402514, 5302735, 4189734, 0719429, 3857798, 18403465, 8262053, 3751407, 9647533700, 0786480, 3117417340, 542613669, 3122060, 9290091, 9997822376, 2809622 ####[facility] [address] [place] [address] Urea nitrogen/Creatinin e [Mass ratio] 11 No Units Normal 10-[address] [facility] Comment on above: Performed By: #### 2 064099, 6566410, 1837684, 5929584, 4470041, 3040670, 4737971, 61297870, 1593913, 3368567, 5977755177, 0244366, 5646586761, 499585246, 4713182, 1339248, 1721249865, 4980504 ####[facility] [address] [place] [address] Consent for Treatmenton Consent for Treatment [id number]#1.00TIFF Normal [facility] Ferritinon 09-15-2023 Ferritin [Mass/Vol] 20 ng/mL Normal 11-[address] [facility] Comment on above: Result Comment: NORM ALS MEN <30 YRS 16-132 ng/mL MEN >30 YRS 8-338 ng/mL WOMEN (PREMEN) 6-104 ng/mL WOMEN (POSTMEN) 12-210 ng/mL Performed By: #### 2 161173, 6653186, 7684322, 2154151, 3888424, 5011148, 4413331, 34407981, 5829688, 6305780, 9669960463, 1765045, 9136670837, 320388787, 1609905, 1611311, 8165521568, 7292724 ####[facility] [address] [place] [address] Folateon 09-15-2023 Folate [Mass/Vol] 14.7 ng/mL Normal >=6.[address] [facility] Comment on above: Performed By: #### 2 922180, 4602005, 2243813, 4466661, 8970228, 5350119, 7866105, 28392903, 8150600, 9907213, 0003166691, 9249071, 9655438888, 004491170, 7308026, 6258107, 5895935060, 2782117 ####[facility] [address] [place] [address] HEMATOLOGYOrdered By: SYSTEM SYSTEM on 09-15-2023 Basophils/100 WBC (Bld) 1.3 % Normal 0.0 - 2.0 % [facility] HemeAutoSS Basophils/Leukocyt es Auto (Bld) [Pure # fraction] 0.0 E9/L Normal 0.0 - 0.2 E9/L [facility] HemeAutoSS Eosinophils/100 WBC (Bld) 3.4 % Normal 0.0 - 8.0 % [facility] HemeAutoSS Eosinophils/Leukoc ytes Auto (Bld) [Pure # fraction] 0.1 E9/L Normal 0.0 - 0.5 E9/L [facility] HemeAutoSS Lymphocytes/100 WBC (Bld) 25.0 % Normal 14.0 - 50.0 % [facility] HemeAutoSS Lymphocytes/Leukoc ytes Auto (Bld) [Pure # fraction] 0.7 E9/L Low 1.0 - 4.0 E9/L [facility] HemeAutoSS Monocytes/100 WBC (Bld) 10.1 % Normal 4.0 - 14.0 % [facility] HemeAutoSS Monocytes/Leukocyt es Auto (Bld) [Pure # fraction] 0.3 E9/L Normal 0.2 - 1.0 E9/L [facility] HemeAutoSS Neutrophils/100 WBC (Bld) 60.2 % Normal 36.0 - 75.0 % [facility] HemeAutoSS Neutrophils/Leukoc ytes Auto (Bld) [Pure # fraction] 1.6 E9/L [...] 33.7 g/dL Normal 31.4 - 36.0 gm/dL [facility] HemeAutoSS MCV (RBC) [Entitic vol] 92.8 fL Normal 80.0 - 100.0 fL [facility] [...] 2.6 E9/L Low 4.0 - 11.0 E9/L [facility] HemeAutoSS Ironon 09-15-2023 Iron [Mass/Vol] 73 microgram/dL Normal 35-153 [facility] Comment on above: Performed By: #### 2 256789, 8472246, 2774303, 4547073, 4891991, 9936694, 3712017, 23581858, 2000142, 5428801, 5364298534, 9978515, 8975461652, 573889122, 5772414, 6813087, 8373416267, 0898277 ####[facility] [address] [place] [address] Iron Saturationon 09-15-2023 Iron binding capacity [Mass/Vol] 401 microgram/dL High 250-[address] [facility] Comment on above: Performed By: #### 2 460614, 8005483, 7077010, 0097686, 0175818, 0893288, 3550544, 43129582, 0518012, 1020900, 5628295126, 9476208, 3563194016, 852573487, 3709308, 0413967, 5577864770, 5429505 ####[facility] [address] [place] [address] Iron saturation [Mass fraction] 18 % Low 20-[address] [facility] Comment on above: Performed By: #### 2 458195, 1229954, 4494369, 7465526, 5827830, 4042983, 3752466, 36735216, 5506510, 1399912, 7084270778, 3345944, 8511258511, 141825386, 5382262, 9810758, 8691771018, 4494020 ####[facility] [address] [place] [address] LDHon 09-15-2023 LDH [Catalytic activity/Vol] 181 Int._Unit/L Normal 93-[address] [facility] Comment on above: Performed By: #### 2 670113, 8995964, 3386721, 5078856, 6246227, 3809961, 0925620, 34716608, 8845259, 8304491, 6544919658, 1159588, 1164149490, 665007427, 9392462, 4359095, 6463992190, 7874086 ####[address] [address] Transferrinon 09-15-2023 Transferrin [Mass/Vol] 286 mg/dL Normal 200-[address] [facility] Comment on above: Performed By: #### 2 139962, 5386723, 3084654, 7657360, 4487696, 0902853, 5660545, 45492904, 5092911, 2402188, 0270566832, 8960061, 3391325701, 945453946, 6953738, 8099375, 9841882534, 9550218 ####[address] [address] Vit B12on 09-15-2023 Cobalamin (Vitamin B12) [Mass/Vol] 508 pg/mL Normal 50-[address] [facility] Comment on above: Performed By: #### 2 091223, 1709262, 6240771, 1457359, 7228608, 0720519, 4713345, 71254397, 1284922, 3268866, 8520455849, 9411852, 1694877154, 640591705, 2865944, 4153196, 2054183198, 8399801 ####[address] [address] eGFRon 09-15-2023 GFR/1.73 sq M.predicted among non-blacks MDRD (S/P/Bld) [Vol rate/Area] 54 mL/min/1.73 m2 Low >=[address] [facility] Comment on above: Order Comment: Order added by Discern Expert. Result Comment: Electronic Console Display Operator annabella kidney disease could be indicated at eGFR's of less than 60 mL/min/1.73m2. Kidney failure is indicated at less than 15 mL/min/1.73m2. Performed By: #### 2 682088, 4796235, 7271778, 7611585, 3648966, 0037974, 1484708, 93396481, 6112864, 2582193, 1744999595, 5383383, 4048386012, 792075427, 2797672, 3935062, 4559402788, 5846627 ####[facility] [address] [place] [address] Family Medicine Office/Clini c Noteon 09-01-2023 Family Medicine Office/Clinic Note Normal [facility] Comment on above: Result Comment: Elec tronically Signed By: Willian Barrios MD\.br\Date and Time Signed: 09/01/23 12:57 EST\.br\Electronically Co-Signed By: Willie Walker\.br\Date and Time Co-Signed: 08/29/23 12:10 EST Outside Diabetes Eye Examon 09-01-2023 Outside Diabetes Eye Exam [id number]#1.00TIFF Normal [facility] Ambulatory Visit Summaryon 10-29-2022 Ambulatory Visit Summary Invalid Interpretation Code [address] [place] [address]- \.br\ Friday 12:40 PM EST \.br\ With: Ashlie Mead CNP\.br\ Where: [facility] Ambulatory Visit Summary Invalid Interpretation Code [address] [place] [address]- \.br\ Friday 12:40 PM EST \.br\ With: Ashlie Mead CNP\.br\ Where: [facility] Patient Educationon 08-29-20 Patient Education Normal [facility] Screenson 08-29-2023 Screens [id number]#1.00TIFF [facility] Population Healthon 08-21-20 Population Health Normal [facility] Population Healthon 08-14-20 Population Health Normal [facility] Population Healthon 08-07-20 Population Health Normal [facility] Reminderson 08-06-2023 Reminders - From: Ashlie Mead CNP To: Regina Hollingsworth; Sent: 07/31/2023 10:00:12 EDT Show up: 07/31/2023 10:01:00 EDT Subject: Ambulatory Reminder Reminder/Recall Colonoscopy 01/2024. 6 month colon recall 02/03 [facility] Immunization Recordson 08-04 Immunization Records [id number]#1.00TIFF [facility] Ambulatory Visit Summaryon 1 Ambulatory Visit Summary Invalid Interpretation Code [address] [place] [address]- \.br\ Friday 10:00 AM EST \.br\ With:\.br\ Where: [facility]\.br\ Friday 11:20 AM EST \.br\ With: Willian Barrios MD\.br\ Where: [facility] Gastroenterology Office/Clin ic Noteon 07-31-2023 Gastroenterology Office/Clinic Note Normal [facility] Comment on above: Result Comment: Elec tronically Signed By: Ashlie Mead CNP\.br\Date and Time Signed: 07/31/23 10:07 EDT Patient Educationon 07-31-20 Patient Education Normal [facility] Ambulatory Visit Summaryon 1 Ambulatory Visit Summary Invalid Interpretation Code [address] [place] [address]- \.br\ Friday 2:20 PM EST \.br\ With: Willian Barrios MD\.br\ Where: [facility] Family Medicine Office/Clini c Noteon 07-30-2023 Family Medicine Office/Clinic Note Normal [facility] Comment on above: Result Comment: Elec tronically Signed By: Willian Barrios MD\.br\Date and Time Signed: 07/30/23 08:00 EDT IntraOperative Documentson 1 IntraOperative Documents [id number]#1.00TIFF Normal [facility] Patient Educationon 07-30-20 Patient Education Normal [facility] Population Healthon 07-29-20 23 Population Health Normal [facility] Discharge Instructionson Discharge Instructions [id number]#1.00TIFF Normal [facility] Main OR Intraoperative Recor don 07-28-2023 Main OR Intraoperative Record Normal [facility] Auto Diffon 07-25-2023 Basophils/100 WBC (Bld) 0.9 % Normal 0.0-2.[address] [facility] Comment on above: Order Comment: Order Added by Discern Expert. Performed By: #### 2 438012, 1455458 ####[facility] [address] [place] [address] Basophils/Leukocyt es Auto (Bld) [Pure # fraction] 0.0 E9/L Normal 0.0-0.[address] [facility] Comment on above: Order Comment: Order Added by Discern Expert. Performed By: #### 2 143850, 1804659 ####[facility] [address] [place] [address] Eosinophils/100 WBC (Bld) 3.2 % Normal 0.0-8.[address] [facility] Comment on above: Order Comment: Order Added by Discern Expert. Performed By: #### 2 876427, 3022469 ####[address] [address] Eosinophils/Leukoc ytes Auto (Bld) [Pure # fraction] 0.1 E9/L Normal 0.0-0.[address] [facility] Comment on above: Order Comment: Order Added by Discern Expert. Performed By: #### 2 516816, 8780745 ####[address] [address] Lymphocytes/100 WBC (Bld) 25.7 % Normal 14.0-50.[address] [facility] Comment on above: Order Comment: Order Added by Discern Expert. Performed By: #### 2 091010, 7180547 ####[address] [address] Lymphocytes/Leukoc ytes Auto (Bld) [Pure # fraction] 0.6 E9/L Low 1.0-4.[address] [facility] Comment on above: Order Comment: Order Added by Discern Expert. Performed By: #### 2 371120, 3434970 ####[address] [address] Monocytes/100 WBC (Bld) 10.8 % Normal 4.0-14.[address] [facility] Comment on above: Order Comment: Order Added by Areli Expert. Performed By: #### 2 471734, 1426138 ####[address] [address] Monocytes/Leukocyt es Auto (Bld) [Pure # fraction] 0.3 E9/L Normal 0.2-1.[address] [facility] Comment on above: Order Comment: Order Added by Discern Expert. Performed By: #### 2 706008, 7506551 ####[address] [address] Neutrophils/100 WBC (Bld) 59.4 % Normal 36.0-75.[address] [facility] Comment on above: Order Comment: Order Added by Discern Expert. Performed By: #### 2 641222, 2356422 ####[address] [address] Neutrophils/Leukoc ytes Auto (Bld) [Pure # fraction] 1.5 E9/L Low 2.0-7.[address] [facility] Comment on above: Order Comment: Order Added by Discern Expert. Performed By: #### 2 738915, 4124371 ####[address] [address] CBC w/ Auto Diffon Erythrocyte distribution width (RBC) [Ratio] 13.1 % Normal 10.9-14.[address] [facility] Comment on above: Performed By: #### 2 836400, 9541299 ####[address] [address] Hematocrit (Bld) [Volume fraction] 31.8 % Low 34.0-46.[address] [facility] Comment on above: Performed By: #### 2 852254, 8421824 ####[address] [address] Hemoglobin (Bld) [Mass/Vol] 10.9 g/dL Low 12.0-16.[address] [facility] Comment on above: Performed By: #### 2 429043, 1654940 ####[address] [address] MCH (RBC) [Entitic mass] 31.7 pg Normal 27.0-34.[address] [facility] Comment on above: Performed By: #### 2 477731, 8490639 ####[address] [address] MCHC (RBC) [Mass/Vol] 34.3 g/dL Normal 31.4-36.[address] [facility] Comment on above: Performed By: #### 2 694544, 2880839 ####[address] [address] MCV (RBC) [Entitic vol] 92.3 fL Normal 80.0-100.[address] [facility] Comment on above: Performed By: #### 2 145577, 5074323 ####[facility] [address] [place] [address] Platelet mean volume (Bld) [Entitic vol] 8.5 fL Normal 6.4-10.[address] [facility] Comment on above: Performed By: #### 2 468382, 5745754 ####[facility] [address] [place] [address] Platelets (Bld) [#/Vol] 79.0 E9/L Low 150.0-500.[address] [facility] Comment on above: Performed By: #### 2 627345, 4206663 ####[facility] [address] [place] [address] RBC (Bld) [#/Vol] 3.4 E12/L Low 4.3-5.[address] [facility] Comment on above: Performed By: #### 2 672935, 1585050 ####[facility] [address] [place] [address] WBC corrected for nucl RBC Auto (Bld) [#/Vol] 2.5 E9/L Low 4.0-11.[address] [facility] Comment on above: Performed By: #### 2 160169, 8894953 ####[address] [address] Capillary Glucose POCon 07-13 Glucose [Mass/Vol] 89 mg/dL Normal 55-[address] [facility] Comment on above: Result Comment: Marilyn newell RN/ Performed By: #### 2 07616045 ####[facility] [address] [place] [address] Consenton 07-25-2023 Consent [id number]#1.00TIFF Normal [facility] Inpatient Clinical Summaryon 07-25-2023 Inpatient Clinical Summary Normal [facility] Inpatient Patient Summaryon 07-25-2023 Inpatient Patient Summary Invalid Interpretation Code [address] [address]- \.br\ Friday 11:00 AM EST \.br\ With:\.br\ Where: [facility] Inpatient Patient Summary Invalid Interpretation Code [address] [place] [address]- \.br\ Friday 11:00 AM EST \.br\ With:\.br\ Where: [facility] Inpatient Patient Summary Normal [facility] Interdisciplinary Note - Lui e Manageron 07-25-2023 Interdisciplinary Note - Wardrobe Technician Normal [facility] Comment on above: Result Comment: Elec tronically Signed By: Larisa Mccormack\.br\Date and Time Signed: 07/25/23 09:28 EDT Message from Medicareon 10- Message from Medicare [id number] Normal [facility] Patient Education - Texton 1 Patient Education - Text Normal [facility] Postoperative Documentson Postoperative Documents [id number] [facility] Progress Note-Physicianon Progress Note-Physician [facility] Comment on above: Result Comment: Elec tronically Signed By: Jim Dyson Jr, DO\.br\Date and Time Signed: 07/25/23 15:47 EDT Progress Note-Physician Normal [facility] Comment on above: Result Comment: Elec tronically Signed By: Jim Dyson Jr, DO\.br\Date and Time Signed: 07/25/23 15:46 EDT Auto Diffon 07-24-2023 Basophils/100 WBC (Bld) 1.1 % Normal 0.0-2.[address] [facility] Comment on above: Order Comment: Order Added by Discern Expert. Performed By: #### 2 824535, 9505864 ####[facility] [address] [place] [address] Basophils/Leukocyt es Auto (Bld) [Pure # fraction] 0.0 E9/L Normal 0.0-0.[address] [facility] Comment on above: Order Comment: Order Added by Discern Expert. Performed By: #### 2 985527, 7287890 ####[address] [address] Eosinophils/100 WBC (Bld) 2.6 % Normal 0.0-8.[address] [facility] Comment on above: Order Comment: Order Added by Discern Expert. Performed By: #### 2 579001, 0583962 ####[address] [address] Eosinophils/Leukoc ytes Auto (Bld) [Pure # fraction] 0.1 E9/L Normal 0.0-0.[address] [facility] Comment on above: Order Comment: Order Added by Discern Expert. Performed By: #### 2 385914, 4983260 ####[address] [address] Lymphocytes/100 WBC (Bld) 31.2 % Normal 14.0-50.[address] [facility] Comment on above: Order Comment: Order Added by Discern Expert. Performed By: #### 2 193028, 8372717 ####[address] [address] Lymphocytes/Leukoc ytes Auto (Bld) [Pure # fraction] 0.8 E9/L Low 1.0-4.[address] [facility] Comment on above: Order Comment: Order Added by Discern Expert. Performed By: #### 2 843095, 8587937 ####[address] [address] Monocytes/100 WBC (Bld) 9.8 % Normal 4.0-14.[address] [facility] Comment on above: Order Comment: Order Added by Discern Expert. Performed By: #### 2 696385, 2505424 ####[address] [address] Monocytes/Leukocyt es Auto (Bld) [Pure # fraction] 0.2 E9/L Normal 0.2-1.[address] [facility] Comment on above: Order Comment: Order Added by Discern Expert. Performed By: #### 2 687243, 1031349 ####[address] [place] [address] Neutrophils/100 WBC (Bld) 55.3 % Normal 36.0-75.[address] [facility] Comment on above: Order Comment: Order Added by Discern Expert. Performed By: #### 2 681716, 5309007 ####[address] [address] Neutrophils/Leukoc ytes Auto (Bld) [Pure # fraction] 1.4 E9/L Low 2.0-7.[address] [facility] Comment on above: Order Comment: Order Added by Discern Expert. Performed By: #### 2 193476, 7775364 ####[address] [address] CBC w/ Auto Diffon 3 Erythrocyte distribution width (RBC) [Ratio] 13.1 % Normal 10.9-14.[address] [facility] Comment on above: Performed By: #### 2 155269, 2972778 ####[address] [place] [address] Hematocrit (Bld) [Volume fraction] 33.2 % Low 34.0-46.[address] [facility] Comment on above: Performed By: #### 2 880351, 9391214 ####[address] [address] Hemoglobin (Bld) [Mass/Vol] 11.2 g/dL Low 12.0-16.[address] [facility] Comment on above: Performed By: #### 2 808513, 8238795 ####[address] [place] [address] MCH (RBC) [Entitic mass] 31.2 pg Normal 27.0-34.[address] [facility] Comment on above: Performed By: #### 2 835010, 7753714 ####[address] [place] [address] MCHC (RBC) [Mass/Vol] 33.7 g/dL Normal 31.4-36.[address] [facility] Comment on above: Performed By: #### 2 627265, 8565949 ####[address] [address] MCV (RBC) [Entitic vol] 92.7 fL Normal 80.0-100.[address] [facility] Comment on above: Performed By: #### 2 970650, 3772003 ####[address] [address] Platelet mean volume (Bld) [Entitic vol] 8.5 fL Normal 6.4-10.[address] [facility] Comment on above: Performed By: #### 2 986763, 7599578 ####[address] [address] Platelets (Bld) [#/Vol] 81.0 E9/L Low 150.0-500.[address] [facility] Comment on above: Result Comment: Plat elet count verified using smear estimate Performed By: #### 2 739718, 9151089 ####[address] [address] RBC (Bld) [#/Vol] 3.6 E12/L Low 4.3-5.[address] [facility] Comment on above: Performed By: #### 2 896824, 8219331 ####[address] [address] WBC corrected for nucl RBC Auto (Bld) [#/Vol] 2.5 E9/L Low 4.0-11.[address] [facility] Comment on above: Performed By: #### 2 059667, 3036252 ####[address] [address] Consent for Treatmenton 07-13 Consent for Treatment [id number]#1.00TIFF Normal [facility] Endoscopic Procedure Report - Otheron 07-24-2023 Endoscopic Procedure Report - Other Normal [facility] Comment on above: Result Comment: Elec tronically Signed By: Rachid PATTEN, Deborah Bell\.aidee\Date and Time Signed: 07/24/23 11:16 EDT Other Comment: Radha ng Attachment - attachment storage system not supported [id number] Can be viewed [facility] Attachment - attachment storage system not supported [id number] Can be viewed in [facility] Attachment - attachment storage system not supported [id number] Can be viewed in source [facility] Attachment - attachment storage system not supported [id number] Can be viewed in [facility] Attachment - attachment storage system not supported [id number] Can be viewed in [facility] Attachment - attachment storage system not supported [id number] Can be viewed in source systemMissing Attachment - attachment storage system not supported [id number] Can be viewed in source systemMissing Attachment - attachment storage system not supported [id number] Can be viewed in source system[facility] Attachment - attachment storage system not supported [id number] Can be viewed in [facility] Attachment - attachment storage system not supported [id number] Can be viewed in source systemMissing Attachment - attachment storage system not supported [id number] Can be viewed in source [facility] Attachment - attachment storage system not supported [id number] Can be viewed in source systemMissing Attachment - attachment storage system not supported [id number] Can be viewed in source systemMissing Attachment - attachment storage system not supported [id number] Can be viewed in source [facility] Attachment - attachment storage system not supported [id number] Can be viewed in source system Main OR PACU I Recordon 07-13 Main OR PACU I Record [facility] Main OR Preoperative Recordo n 07-24-2023 Main OR Preoperative Record Normal [facility] Monitor Recordon 07-24-2023 Monitor Record [id number]#1.00TIFF Normal [facility] Monitor Record [id number]#1.00TIFF [facility] Outpatient Surgery Discharge Instructionon 07-24-2023 Outpatient Surgery Discharge Instruction Normal [facility] Consent for Treatmenton 07-13 Consent for Treatment [id number]#1.00TIFF Normal [facility] Oncology Progress Noteon Oncology Progress Note Normal [facility] Pathology Noteon 07-09-2023 Pathology Note [id number]#1.00CD:[address] [facility] Pathology Reporton 3 Pathology Report [id number]#1.00CD:[address] [facility] Pathology Reporton 3 Pathology Report [id number]#1.00CD:[address] [facility] Pathology Report [id number]#1.00CD:[address] [facility] Pathology Report [id number]#1.00CD:[address] [facility] Family Medicine Office/Clini c Noteon 07-02-2023 Family Medicine Office/Clinic Note Normal [facility] Comment on above: Result Comment: Elec tronically Signed By: Willian Barrios MD\.br\Date and Time Signed: 07/02/23 09:33 EDT\.br\Electronically Co-Signed By: Almita Garcia\.br\Date and Time Co-Signed: 06/30/23 14:28 EDT Pathology Reporton 3 Pathology Report [id number]#1.00CD:[address] [facility] Ambulatory Visit Summaryon 0 06-30-2023 Ambulatory Visit Summary Invalid Interpretation Code [address] [place] [address]- \.br\ Friday 11:20 AM EST \.br\ With: Willian Barrios MD\.br\ Where: [facility] Auto Diffon 06-30-2023 Basophils/100 WBC (Bld) 0.9 % Normal 0.0-2.[address] [facility] Comment on above: Order Comment: Order Added by Discern Expert. Performed By: #### 2 731397, 7846946 ####[facility] [address] [place] [address] Basophils/Leukocyt es Auto (Bld) [Pure # fraction] 0.0 E9/L Normal 0.0-0.[address] [facility] Comment on above: Order Comment: Order Added by Discern Expert. Performed By: #### 2 227572, 9924139 ####[address] [address] Eosinophils/100 WBC (Bld) 3.9 % Normal 0.0-8.[address] [facility] Comment on above: Order Comment: Order Added by Discern Expert. Performed By: #### 2 315395, 5021334 ####[address] [address] Eosinophils/Leukoc ytes Auto (Bld) [Pure # fraction] 0.1 E9/L Normal 0.0-0.[address] [facility] Comment on above: Order Comment: Order Added by Discern Expert. Performed By: #### 2 477497, 3701654 ####[address] [address] Lymphocytes/100 WBC (Bld) 28.2 % Normal 14.0-50.[address] [facility] Comment on above: Order Comment: Order Added by Discern Expert. Performed By: #### 2 841608, 4081168 ####[facility] [address] [place] [address] Lymphocytes/Leukoc ytes Auto (Bld) [Pure # fraction] 0.7 E9/L Low 1.0-4.[address] [facility] Comment on above: Order Comment: Order Added by Discern Expert. Performed By: #### 2 917154, 7811962 ####[facility] [address] [place] [address] Monocytes/100 WBC (Bld) 9.1 % Normal 4.0-14.[address] [facility] Comment on above: Order Comment: Order Added by Discern Expert. Performed By: #### 2 837754, 9399136 ####[address] [place] [address] Monocytes/Leukocyt es Auto (Bld) [Pure # fraction] 0.2 E9/L Normal 0.2-1.[address] [facility] Comment on above: Order Comment: Order Added by Discern Expert. Performed By: #### 2 400710, 7710151 ####[address] [place] [address] Neutrophils/100 WBC (Bld) 57.9 % Normal 36.0-75.[address] [facility] Comment on above: Order Comment: Order Added by Discern Expert. Performed By: #### 2 894333, 4166123 ####[address] [address] Neutrophils/Leukoc ytes Auto (Bld) [Pure # fraction] 1.5 E9/L Low 2.0-7.[address] [facility] Comment on above: Order Comment: Order Added by Discern Expert. Performed By: #### 2 615865, 6143291 ####[address] [address] CBC w/ Auto Diffon Erythrocyte distribution width (RBC) [Ratio] 12.8 % Normal 10.9-14.[address] [facility] Comment on above: Performed By: #### 2 038584, 0221988 ####[address] [address] Hematocrit (Bld) [Volume fraction] 36.4 % Normal 34.0-46.[address] [facility] Comment on above: Performed By: #### 2 929224, 1036501 ####[address] [address] Hemoglobin (Bld) [Mass/Vol] 12.3 g/dL Normal 12.0-16.[address] [facility] Comment on above: Performed By: #### 2 733376, 2688586 ####[address] [address] MCH (RBC) [Entitic mass] 31.4 pg Normal 27.0-34.[address] [facility] Comment on above: Performed By: #### 2 485295, 7713707 ####[address] [address] MCHC (RBC) [Mass/Vol] 33.7 g/dL Normal 31.4-36.[address] [facility] Comment on above: Performed By: #### 2 642236, 3159255 ####[address] [address] MCV (RBC) [Entitic vol] 93.2 fL Normal 80.0-100.[address] [facility] Comment on above: Performed By: #### 2 338977, 6164413 ####[address] [address] Platelet mean volume (Bld) [Entitic vol] 9.6 fL Normal 6.4-10.[address] [facility] Comment on above: Performed By: #### 2 123203, 1612183 ####[address] [address] Platelets (Bld) [#/Vol] 79.0 E9/L Low 150.0-500.[address] [facility] Comment on above: Performed By: #### 2 502595, 6224255 ####[address] [address] RBC (Bld) [#/Vol] 3.9 E12/L Low 4.3-5.[address] [facility] Comment on above: Performed By: #### 2 031480, 6117438 ####[address] [address] WBC corrected for nucl RBC Auto (Bld) [#/Vol] 2.7 E9/L Low 4.0-11.[address] [facility] Comment on above: Performed By: #### 2 969606, 0100490 ####[facility] [address] [place] [address] CHEMISTRYOrdered By: SYSTEM SYSTEM on 06-30-2023 Albumin [...] Calcium [Mass/Vol] 9.5 mg/dL Normal 8.9 - 11. 1 mg/dL [facility] Remisol Chloride [Moles/Vol] 103 mmol/L Normal 101 - 111 mmol/L [facility] Remisol Cholesterol [Mass/Vol] 140 mg/dL Normal [...] rate/Area] 49 mL/min/1.73 m2 Low >=59mL/min/1.73 m2 [facility] Chem S Globulin (S) [Mass/Vol] 3.3 g/dL Normal 1.4 - 4.0 gm/dL [facility] Remisol Glucose [Mass/Vol] 289 mg/dL High 55 - 199 mg/dL [facility] Remisol Potassium [Moles/Vol] 4.1 mmol/L Normal 3.5 - 5.3 mmol/L [facility] Remisol Protein [Mass/Vol] 6.9 g/dL Normal 6.0 - 7.8 gm/dL [facility] Remisol Sodium [Moles/Vol] 136 mmol/L Normal 135 - 145 mmol/L [facility] Remisol Triglyceride [Mass/Vol] 102 mg/dL Normal <=149mg/dL [facility] Remisol Urea nitrogen [Mass/Vol] 19 mg/dL Normal 5 - 21 mg/dL [facility] Remisol Urea nitrogen/Creatinin e [Mass ratio] 16 mg/mg Normal 10 - 20 [facility] Remisol CHEMISTRYOrdered By: Gabriela Kincaid on 06-30-2023 Albumin DL <= 20 mg/L (U) [Mass/Vol] microgram/mL Normal 0.0 - 19.0 mcg/mL [facility] Remisol Albumin Elph (U) [Mass fraction] mg/dL Invalid Interpretation Code [facility] Remisol Creatinine (U) [Mass/Vol] 82.1 mg/dL Invalid Interpretation Code [facility] Remisol U Prot/Creat Ratio [facility] Invalid Interpretation Code 0.00 - 200.00 [facility] Remisol CHEMISTRYOrdered By: Jamison meadows on 06-30-2023 HbA1c (Bld) [Mass fraction] 7.0 % High <=5.9% [facility] ChemAutoSS CMPon 06-30-2023 Albumin [Mass/Vol] 3.6 g/dL Normal 3.3-5.[address] [facility] Comment on above: Performed By: #### 2 146081, 10131174, 7467545, [id number] ####[facility] [address] [place] [address] Albumin/Globulin (S) [Mass conc ratio] 1.1 Normal 1.1-2.[address] [facility] Comment on above: Performed By: #### 2 427449, 31650008, 1010268, [id number] ####[facility] [address] [place] [address] ALP [Catalytic activity/Vol] 66 Int._Unit/L Normal 21-[address] [facility] Comment on above: Performed By: #### 2 536129, 75490416, 3802569, [id number] ####[facility] [address] [facility] [address] ALT No additional P-5'-P [Catalytic activity/Vol] 21 Int._Unit/L Normal 6-[address] [facility] Comment on above: Performed By: #### 2 430549, 20123462, 2635665, 281036658 ####[facility] [address] [place] [address] Anion gap [Moles/Vol] 11 mmol/L Normal 6-[address] [facility] Comment on above: Performed By: #### 2 915555, 43647574, 9886726, 860289083 ####[facility] [address] [place] [address] AST [Catalytic activity/Vol] 37 Int._Unit/L Normal 5-[address] [facility] Comment on above: Performed By: #### 2 391651, 62230514, 5246757, 055246272 ####[facility] [address] [place] [address] Bilirubin [Mass/Vol] 0.8 mg/dL Normal 0.0-1.[address] [facility] Comment on above: Performed By: #### 2 114405, 76576482, 4954731, 653070932 ####[facility] [address] [place] [address] Calcium [Mass/Vol] 9.5 mg/dL Normal 8.9-11.[address] [facility] Comment on above: Performed By: #### 2 409293, 85738687, 9807082, 811264903 ####[facility] [address] [place] [address] Chloride [Moles/Vol] 103 mmol/L Normal 101-[address] [facility] Comment on above: Performed By: #### 2 504364, 55450809, 2843609, 808262372 ####[facility] [address] [place] [address] CO2 [Moles/Vol] 26 mmol/L Normal 21-[address] [facility] Comment on above: Performed By: #### 2 022443, 02483038, 7105227, 947173352 ####[facility] [address] [place] [address] Creatinine [Mass/Vol] 1.2 mg/dL Normal 0.5-1.[address] [facility] Comment on above: Performed By: #### 2 182979, 40968495, 0977247, 839353834 ####[facility] [address] [place] [address] Globulin (S) [Mass/Vol] 3.3 g/dL Normal 1.4-4.[address] [facility] Comment on above: Performed By: #### 2 053120, 73461147, 8592582, 252815718 ####[facility] [address] [place] [address] Glucose [Mass/Vol] 289 mg/dL High 55-[address] [facility] Comment on above: Result Comment: If t his glucose result represents a fasting glucose, interpretation should refer to the following reference range: 55-99 mg/dL Performed By: #### 2 608321, 53681773, 1802098, 023464403 ####[facility] [address] [place] [address] Potassium [Moles/Vol] 4.1 mmol/L Normal 3.5-5.[address] [facility] Comment on above: Performed By: #### 2 491612, 53695755, 2706039, 890416620 ####[facility] [address] [place] [address] Protein [Mass/Vol] 6.9 g/dL Normal 6.0-7.[address] [facility] Comment on above: Performed By: #### 2 425771, 23958665, 5274883, 494978994 ####[facility] [address] [place] [address] Sodium [Moles/Vol] 136 mmol/L Normal 135-[address] [facility] Comment on above: Performed By: #### 2 905592, 71222031, 9382151, 424141461 ####[facility] [address] [place] [address] Urea nitrogen [Mass/Vol] 19 mg/dL Normal 5-[address] [facility] Comment on above: Performed By: #### 2 798100, 53739486, 0238956, 944586594 ####[facility] [address] [place] [address] Urea nitrogen/Creatinin e [Mass ratio] 16 No Units Normal 10-[address] [facility] Comment on above: Performed By: #### 2 189873, 49552273, 3755818, 209907674 ####[facility] [address] [place] [address] HEMATOLOGYOrdered By: SYSTEM SYSTEM on 06-30-2023 Basophils/100 WBC (Bld) 0.9 % Normal 0.0 - 2.0 % [facility] HemeAutoSS Basophils/Leukocyt es Auto (Bld) [Pure # fraction] 0.0 E9/L Normal 0.0 - 0.2 E9/L [facility] HemeAutoSS Eosinophils/100 WBC (Bld) 3.9 % Normal 0.0 - 8.0 % [facility] HemeAutoSS Eosinophils/Leukoc ytes Auto (Bld) [Pure # fraction] 0.1 E9/L Normal 0.0 - 0.5 E9/L [facility] HemeAutoSS Lymphocytes/100 WBC (Bld) 28.2 % Normal 14.0 - 50.0 % [facility] HemeAutoSS Lymphocytes/Leukoc ytes Auto (Bld) [Pure # fraction] 0.7 E9/L Low 1.0 - 4.0 E9/L [facility] HemeAutoSS Monocytes/100 WBC (Bld) 9.1 % Normal 4.0 - 14.0 % [facility] HemeAutoSS Monocytes/Leukocyt es Auto (Bld) [Pure # fraction] 0.2 E9/L Normal 0.2 - 1.0 E9/L [facility] HemeAutoSS Neutrophils/100 WBC (Bld) 57.9 % Normal 36.0 - 75.0 % [facility] HemeAutoSS Neutrophils/Leukoc ytes Auto (Bld) [Pure # fraction] 1.5 E9/L [...] 31.4 pg Normal 27.0 - 34.0 pg [facility] HemeAutoSS MCHC (RBC) [Mass/Vol] 33.7 g/dL Normal 31.4 - 36.0 gm/dL [facility] HemeAutoSS MCV (RBC) [Entitic vol] 93.2 fL Normal 80.0 - 100.0 fL [facility] HemeAutoSS Platelet mean volume (Bld) [Entitic vol] 9.6 fL Normal 6.4 - 10.8 fL FT HemeAutoSS Platelets (Bld) [#/Vol] 79.0 E9/L Low 150.0 - 500.0 E9/L [facility] HemeAutoSS RBC (Bld) [#/Vol] 3.9 E12/L Low 4.3 - 5.9 E12/L FT HemeAutoSS WBC corrected for nucl RBC Auto (Bld) [#/Vol] 2.7 E9/L Low 4.0 - 11.0 E9/L [facility] HemeAutoSS [id number] 06-30-2023 HbA1c (Bld) [Mass fraction] 7.0 % High <=5.[address] [facility] Comment on above: Performed By: #### 2 674131, 82613429, 9458262, 427066764 ####[facility] [address] [place] [address] Lipid Panelon 06-30-2023 Cholesterol [Mass/Vol] 140 mg/dL Normal 120-[address] [facility] Comment on above: Performed By: #### 2 666782, 49379229, 3283469, 673787171 ####[facility] [address] [place] [address] Cholesterol in HDL [Mass/Vol] 35 mg/dL Invalid Interpretation Code [facility] Comment on above: Result Comment: HDL > or equal to 60 mg/dL: Low cardiovascular riskHDL < 40 mg/dL : High cardiovascular risk Performed By: #### 2 710581, 89102785, 0178060, [id number] ####[facility] [address] [place] [address] Cholesterol in LDL [Mass/Vol] 83 mg/dL Normal <=[address] [facility] Comment on above: Performed By: #### 2 695603, 22508482, 5317168, 023824256 ####[facility] [address] [place] [address] Cholesterol in VLDL [Mass/Vol] 20 mg/dL Normal 7-[address] [facility] Comment on above: Performed By: #### 2 735102, 50242950, 9269771, 594715627 ####[facility] [address] [place] [address] Triglyceride [Mass/Vol] 102 mg/dL Normal <=[address] [facility] Comment on above: Performed By: #### 2 161004, 09150300, 5620864, 958640498 ####[facility] [address] [place] [address] Pathology Reporton Pathology Report [id number]#1.00CD:[address] [facility] Pathology Report [id number]#1.00CD:[address] [facility] Pathology Report [id number]#1.00CD:[address] [facility] Pathology Report [id number]#1.00CD:[address] [facility] Pathology Report [id number]#1.00CD:[address] [facility] Comment on above: Other Comment: cleri moses U Microalbon 06-30-2023 Albumin DL <= 20 mg/L (U) [Mass/Vol] mg/dL Normal 0.0-19.[address] [facility] Comment on above: Performed By: #### 1 1400402, [id number] ####[facility] [address] [place] [address] U Protein/Creat Ratioon 06-13 Creatinine (U) [Mass/Vol] 82.1 mg/dL Invalid Interpretation Code [facility] Comment on above: Result Comment: The reference range and other method performance specifications have not been established for this test; results should be integrated into the clinical context for interpretation. Performed By: #### 1 7435727, [id number] ####[facility] [address] [place] [address] U Prot/Creat Ratio [facility] Invalid Interpretation Code .00-200.[address] [facility] Comment on above: Performed By: #### 1 [id number], [id number] ####[facility] [address] [place] [address] Albumin Elph (U) [Mass fraction] <6.0 Invalid Interpretation Code [facility] Comment on above: Result Comment: The reference range and other method performance specifications have not been established for this test; results should be integrated into the clinical context for interpretation. Performed By: #### 1 [id number], [id number] ####[facility] [address] [place] [address] eGFRon 06-30-2023 GFR/1.73 sq M.predicted among non-blacks MDRD (S/P/Bld) [Vol rate/Area] 49 mL/min/1.73 m2 Low >=[address] [facility] Comment on above: Order Comment: Order added by Discern Expert. Result Comment: Electronic Console Display Operator annabella kidney disease could be indicated at eGFR's of less than 60 mL/min/1.73m2. Kidney failure is indicated at less than 15 mL/min/1.73m2. Performed By: #### 2 628148, [id number], 7703812, [id number] ####[facility] [address] [place] [address] Discharge Instructionson Discharge Instructions [id number]#[id number]:[address] [facility] Preoperative Documentson Preoperative Documents [id number]#[id number]:[address] [facility] Auto Diffon 06-24-2023 Basophils/100 WBC (Bld) 1.5 % Normal 0.0-2.[address] [facility] Comment on above: Order Comment: Order Added by Areli Expert. Performed By: #### 2 268817, 5672088 ####[facility] [address] [place] [address] Basophils/Leukocyt es Auto (Bld) [Pure # fraction] 0.0 E9/L Normal 0.0-0.[address] [facility] Comment on above: Order Comment: Order Added by Areli Expert. Performed By: #### 2 581637, 8571233 ####[address] [address] Eosinophils/100 WBC (Bld) 3.9 % Normal 0.0-8.[address] [facility] Comment on above: Order Comment: Order Added by Areli Expert. Performed By: #### 2 904504, 9121066 ####[address] [place] [address] Eosinophils/Leukoc ytes Auto (Bld) [Pure # fraction] 0.1 E9/L Normal 0.0-0.[address] [facility] Comment on above: Order Comment: Order Added by Areli Expert. Performed By: #### 2 625924, 5232208 ####[address] [place] [facility] [place] [address] Lymphocytes/100 WBC (Bld) 31.3 % Normal 14.0-50.[address] [facility] Comment on above: Order Comment: Order Added by Discern Expert. Performed By: #### 2 181434, 3335179 ####[address] [place] [address] Lymphocytes/Leukoc ytes Auto (Bld) [Pure # fraction] 0.8 E9/L Low 1.0-4.[address] [facility] Comment on above: Order Comment: Order Added by Discern Expert. Performed By: #### 2 727453, 2256563 ####[address] [place] [address] Monocytes/100 WBC (Bld) 10.5 % Normal 4.0-14.[address] [facility] Comment on above: Order Comment: Order Added by Discern Expert. Performed By: #### 2 929294, 9138530 ####[address] [place] [address] Monocytes/Leukocyt es Auto (Bld) [Pure # fraction] 0.3 E9/L Normal 0.2-1.[address] [facility] Comment on above: Order Comment: Order Added by Discern Expert. Performed By: #### 2 014194, 9451333 ####[address] [place] [address] Neutrophils/100 WBC (Bld) 52.8 % Normal 36.0-75.[address] [facility] Comment on above: Order Comment: Order Added by Discern Expert. Performed By: #### 2 421851, 3439556 ####[facility] [address] [place] [address] Neutrophils/Leukoc ytes Auto (Bld) [Pure # fraction] 1.3 E9/L Low 2.0-7.[address] [facility] Comment on above: Order Comment: Order Added by Discern Expert. Performed By: #### 2 876047, 7672666 ####[address] [address] CBC w/ Auto Diffon 3 Erythrocyte distribution width (RBC) [Ratio] 12.6 % Normal 10.9-14.[address] [facility] Comment on above: Performed By: #### 2 965888, 6923049 ####[address] [address] Hematocrit (Bld) [Volume fraction] 35.1 % Normal 34.0-46.[address] [facility] Comment on above: Performed By: #### 2 514798, 3844852 ####[address] [address] Hemoglobin (Bld) [Mass/Vol] 12.0 g/dL Normal 12.0-16.[address] [facility] Comment on above: Performed By: #### 2 261430, 7896785 ####[address] [address] MCH (RBC) [Entitic mass] 31.6 pg Normal 27.0-34.[address] [facility] Comment on above: Performed By: #### 2 230657, 3985254 ####[address] [address] MCHC (RBC) [Mass/Vol] 34.1 g/dL Normal 31.4-36.[address] [facility] Comment on above: Performed By: #### 2 717680, 3324566 ####[address] [address] MCV (RBC) [Entitic vol] 92.7 fL Normal 80.0-100.[address] [facility] Comment on above: Performed By: #### 2 706562, 0655574 ####[address] [address] Platelet mean volume (Bld) [Entitic vol] 8.4 fL Normal 6.4-10.[address] [facility] Comment on above: Performed By: #### 2 734352, 5876977 ####[address] [place] [address] Platelets (Bld) [#/Vol] 83.0 E9/L Low 150.0-500.[address] [facility] Comment on above: Result Comment: Slid e reviewed by TLP.Platelet count verified using smear estimate. Performed By: #### 2 506542, 1962164 ####[facility] [address] [place] [address] RBC (Bld) [#/Vol] 3.8 E12/L Low 4.3-5.[address] [facility] Comment on above: Performed By: #### 2 546274, 5201110 ####[facility] [address] [place] [address] WBC corrected for nucl RBC Auto (Bld) [#/Vol] 2.5 E9/L Low 4.0-11.[address] [facility] Comment on above: Performed By: #### 2 884819, 8796830 ####[facility] [address] [place] [address] [address] Bone Marrow Biopsyon 06-13 CT Bone Marrow Biopsy Normal [facility] Consent for Treatmenton 06-13 Consent for Treatment [id number]#[id number]:[address] [facility] HEMATOLOGYOrdered By: SYSTEM SYSTEM on 06-24-2023 Basophils/100 WBC (Bld) 1.5 % Normal 0.0 - 2.0 % [facility] Basophils/Leukocyt es Auto (Bld) [Pure # fraction] 0.0 E9/L Normal 0.0 - 0.2 E9/L [facility] Eosinophils/100 WBC (Bld) 3.9 % Normal 0.0 - 8.0 % [facility] Eosinophils/Leukoc ytes Auto (Bld) [Pure # fraction] 0.1 E9/L Normal 0.0 - 0.5 E9/L [facility] Lymphocytes/100 WBC (Bld) 31.3 % Normal 14.0 - 50.0 % [facility] Lymphocytes/Leukoc ytes Auto (Bld) [Pure # fraction] 0.8 E9/L Low 1.0 - 4.0 E9/L [facility] Monocytes/100 WBC (Bld) 10.5 % Normal 4.0 - 14.0 % [facility] Monocytes/Leukocyt es Auto (Bld) [Pure # fraction] 0.3 E9/L Normal 0.2 - 1.0 E9/L [facility] Neutrophils/100 WBC (Bld) 52.8 % Normal 36.0 - 75.0 % [facility] Neutrophils/Leukoc ytes Auto (Bld) [Pure # fraction] 1.3 E9/L Low 2.0 - 7.5 E9/L [facility] HEMATOLOGYOrdered By: Paige Call on 06-24-2023 Erythrocyte distribution width (RBC) [Ratio] 12.6 % Normal 10.9 - 14.2 % [facility] Hematocrit (Bld) [Volume fraction] 35.1 % Normal 34.0 - 46.0 % [facility] Hemoglobin (Bld) [Mass/Vol] 12.0 g/dL Normal 12.0 - 16.0 gm/dL [facility] MCH (RBC) [Entitic mass] 31.6 pg Normal 27.0 - 34.0 pg [facility] MCHC (RBC) [Mass/Vol] 34.1 g/dL Normal 31.4 - 36.0 gm/dL [facility] MCV (RBC) [Entitic vol] 92.7 fL Normal 80.0 - 100.0 fL [facility] Platelet mean volume (Bld) [Entitic vol] 8.4 fL Normal 6.4 - 10.8 fL [facility] Platelets (Bld) [#/Vol] 83.0 E9/L Low 150.0 - 500.0 E9/L [facility] [...] II Recordon Main OR PACU II Record Normal [facility] RAD - Consent to Procedureon 06-24-2023 RAD - Consent to Procedure [id number]#[id number]:[address] [facility] Outside Labson 06-19-2023 Outside Labs [id number]#1.00CD:[address] [facility] Consent for Treatmenton Consent for Treatment [id number]#[id number]:[address] [facility] Oncology Progress Noteon Oncology Progress Note Normal [facility] Physician Orderon 06-17-2023 Physician Order [id number]#1.00CD:[address] [facility] Auto Diffon 06-12-2023 Basophils/100 WBC (Bld) 1.1 % Normal 0.0-2.[address] [facility] Comment on above: Order Comment: Order Added by Discern Expert. Performed By: #### 2 446057, 0735468 ####[facility] [address] [place] [address] Basophils/Leukocyt es Auto (Bld) [Pure # fraction] 0.0 E9/L Normal 0.0-0.[address] [facility] Comment on above: Order Comment: Order Added by Discern Expert. Performed By: #### 2 859014, 0542464 ####[facility] [address] [place] [address] Eosinophils/100 WBC (Bld) 4.1 % Normal 0.0-8.[address] [facility] Comment on above: Order Comment: Order Added by Discern Expert. Performed By: #### 2 364742, 8403269 ####[facility] [address] [place] [address] Eosinophils/Leukoc ytes Auto (Bld) [Pure # fraction] 0.1 E9/L Normal 0.0-0.[address] [facility] Comment on above: Order Comment: Order Added by Discern Expert. Performed By: #### 2 362457, 0450713 ####[address] [address] Lymphocytes/100 WBC (Bld) 27.6 % Normal 14.0-50.[address] [facility] Comment on above: Order Comment: Order Added by Discern Expert. Performed By: #### 2 159532, 2468864 ####[address] [address] Lymphocytes/Leukoc ytes Auto (Bld) [Pure # fraction] 0.8 E9/L Low 1.0-4.[address] [facility] Comment on above: Order Comment: Order Added by Areli Expert. Performed By: #### 2 620109, 0040493 ####[address] [place] [address] Monocytes/100 WBC (Bld) 10.4 % Normal 4.0-14.[address] [facility] Comment on above: Order Comment: Order Added by Areli Expert. Performed By: #### 2 654019, 1227493 ####[address] [address] Monocytes/Leukocyt es Auto (Bld) [Pure # fraction] 0.3 E9/L Normal 0.2-1.[address] [facility] Comment on above: Order Comment: Order Added by Areli Expert. Performed By: #### 2 434517, 3881872 ####[address] [address] Neutrophils/100 WBC (Bld) 56.8 % Normal 36.0-75.[address] [facility] Comment on above: Order Comment: Order Added by Areli Expert. Performed By: #### 2 685467, 9070573 ####[facility] [address] [place] [address], [place] [address] Neutrophils/Leukoc ytes Auto (Bld) [Pure # fraction] 1.7 E9/L Low 2.0-7.[address] [facility] Comment on above: Order Comment: Order Added by Discern Expert. Performed By: #### 2 604872, 4878387 ####[address] [place] [address] CBC w/ Auto Diffon 3 Erythrocyte distribution width (RBC) [Ratio] 12.8 % Normal 10.9-14.[address] [facility] Comment on above: Performed By: #### 2 738390, 0299071 ####[address] [address] Hematocrit (Bld) [Volume fraction] 36.7 % Normal 34.0-46.[address] [facility] Comment on above: Performed By: #### 2 620625, 6456422 ####[address] [address] Hemoglobin (Bld) [Mass/Vol] 12.2 g/dL Normal 12.0-16.[address] [facility] Comment on above: Performed By: #### 2 879052, 6439224 ####[address] [address] MCH (RBC) [Entitic mass] 31.3 pg Normal 27.0-34.[address] [facility] Comment on above: Performed By: #### 2 258135, 8238649 ####[address] [address] MCHC (RBC) [Mass/Vol] 33.3 g/dL Normal 31.4-36.[address] [facility] Comment on above: Performed By: #### 2 838940, 9162059 ####[address] [address] MCV (RBC) [Entitic vol] 93.8 fL Normal 80.0-100.[address] [facility] Comment on above: Performed By: #### 2 797602, 3877439 ####[address] [address] Platelet mean volume (Bld) [Entitic vol] 9.1 fL Normal 6.4-10.[address] [facility] Comment on above: Performed By: #### 2 901712, 1248966 ####[facility] [address] [place] [address] Platelets (Bld) [#/Vol] 102.0 E9/L Low 150.0-500.[address] [facility] Comment on above: Performed By: #### 2 966352, 6350603 ####[facility] [address] [place] [address] RBC (Bld) [#/Vol] 3.9 E12/L Low 4.3-5.[address] [facility] Comment on above: Performed By: #### 2 413258, 1609482 ####[facility] [address] [place] [address] WBC corrected for nucl RBC Auto (Bld) [#/Vol] 3.0 E9/L Low 4.0-11.[address] [facility] Comment on above: Performed By: #### 2 082864, 5831415 ####[facility] [address] [place] [address] Consent for Treatmenton 05-15 Consent for Treatment [id number]#[id number]:[address] [facility] HEMATOLOGYOrdered By: SYSTEM SYSTEM on 06-12-2023 Basophils/100 WBC (Bld) 1.1 % Normal 0.0 - 2.0 % [facility] Basophils/Leukocyt es Auto (Bld) [Pure # fraction] 0.0 E9/L Normal 0.0 - 0.2 E9/L [facility] Eosinophils/100 WBC (Bld) 4.1 % Normal 0.0 - 8.0 % [facility] Eosinophils/Leukoc ytes Auto (Bld) [Pure # fraction] 0.1 E9/L Normal 0.0 - 0.5 E9/L [facility] Lymphocytes/100 WBC (Bld) 27.6 % Normal 14.0 - 50.0 % [facility] Lymphocytes/Leukoc ytes Auto (Bld) [Pure # fraction] 0.8 E9/L Low 1.0 - 4.0 E9/L [facility] Monocytes/100 WBC (Bld) 10.4 % Normal 4.0 - 14.0 % [facility] Monocytes/Leukocyt es Auto (Bld) [Pure # fraction] 0.3 E9/L Normal 0.2 - 1.0 E9/L [facility] Neutrophils/100 WBC (Bld) 56.8 % Normal 36.0 - 75.0 % [facility] Neutrophils/Leukoc ytes Auto (Bld) [Pure # fraction] 1.7 E9/L Low 2.0 - 7.5 E9/L [facility] HEMATOLOGYOrdered By: Remington Gibbs on 06-12-2023 Erythrocyte distribution width (RBC) [Ratio] 12.8 % Normal 10.9 - 14.2 % [facility] Hematocrit (Bld) [Volume fraction] 36.7 % Normal 34.0 - 46.0 % [facility] Hemoglobin (Bld) [Mass/Vol] 12.2 g/dL Normal 12.0 - 16.0 gm/dL [facility] MCH (RBC) [Entitic mass] 31.3 pg Normal 27.0 - 34.0 pg [facility] MCHC (RBC) [Mass/Vol] 33.3 g/dL Normal 31.4 - 36.0 gm/dL [facility] MCV (RBC) [Entitic vol] 93.8 fL Normal 80.0 - 100.0 fL [facility] Platelet mean volume (Bld) [Entitic vol] 9.1 fL Normal 6.4 - 10.8 fL [facility] Platelets (Bld) [#/Vol] 102.0 E9/L Low 150.0 - 500.0 E9/L [facility] RBC (Bld) [#/Vol] 3.9 E12/L Low 4.3 - 5.9 E12/L [facility] WBC corrected for nucl RBC Auto (Bld) [#/Vol] 3.0 E9/L Low 4.0 - 11.0 E9/L [facility] Consent for Procedure/Surger yon 06-05-2023 Consent for Procedure/Surgery [id number]#[id number]:[address] [facility] Ambulatory Visit Summaryon 0 06-04-2023 Ambulatory Visit Summary Invalid Interpretation Code [address] [id number]- \.br\ Friday 2:20 PM EST \.br\ With: Denis PATTEN, Willian Weiner\.br\ Where: [facility] Gastroenterology Office/Clin ic Noteon 06-04-2023 Gastroenterology Office/Clinic Note Normal [facility] Comment on above: Result Comment: Elec tronically Signed By: Rachid PATTEN, Deborah Bell\.br\Date and Time Signed: 06/04/23 14:05 EDT Lab Reportson 05-29-2023 Lab Reports [id number]#[id number]:[address] [facility] Office Visiton 05-29-2023 Follow-up visit [id number] Dakota Santos 1955 F Date Provider Department Center 05/29/2023 [id number]-NRVJYMCZYDELMAR CORDOVA [facility] No family history on file Level of Service:65562 [place] OFFICE/OUTPATIENT ESTABLISHED MOD MDM 30-39 MIN Reason for Visit and Comments: Follow-up [747998] - Early follow up Normal [facility] Auto Diffon 05-27-2023 Basophils/100 WBC (Bld) 1.3 % Normal 0.0-2.[address] [facility] Comment on above: Order Comment: Order Added by Discern Expert. Performed By: #### 2 246558, 6760321 ####[facility] [address] [place] [address] Basophils/Leukocyt es Auto (Bld) [Pure # fraction] 0.0 E9/L Normal 0.0-0.[address] [facility] Comment on above: Order Comment: Order Added by Discern Expert. Performed By: #### 2 057589, 4185232 ####[facility] [address] [place] [address] Eosinophils/100 WBC (Bld) 5.3 % Normal 0.0-8.[address] [facility] Comment on above: Order Comment: Order Added by Discern Expert. Performed By: #### 2 359499, 7857632 ####[facility] [address] [place] [address] Eosinophils/Leukoc ytes Auto (Bld) [Pure # fraction] 0.2 E9/L Normal 0.0-0.[address] [facility] Comment on above: Order Comment: Order Added by Discern Expert. Performed By: #### 2 235749, 1328218 ####[address] [address] Lymphocytes/100 WBC (Bld) 26.5 % Normal 14.0-50.[address] [facility] Comment on above: Order Comment: Order Added by Areli Expert. Performed By: #### 2 698472, 5981804 ####[address] [address] Lymphocytes/Leukoc ytes Auto (Bld) [Pure # fraction] 0.8 E9/L Low 1.0-4.[address] [facility] Comment on above: Order Comment: Order Added by Areli Expert. Performed By: #### 2 105495, 6589093 ####[address] [address] Monocytes/100 WBC (Bld) 10.9 % Normal 4.0-14.[address] [facility] Comment on above: Order Comment: Order Added by Areli Expert. Performed By: #### 2 810106, 1966899 ####[address] [address] Monocytes/Leukocyt es Auto (Bld) [Pure # fraction] 0.3 E9/L Normal 0.2-1.[address] [facility] Comment on above: Order Comment: Order Added by Areli Expert. Performed By: #### 2 985621, 6969331 ####[address] [address] Neutrophils/100 WBC (Bld) 56.0 % Normal 36.0-75.[address] [facility] Comment on above: Order Comment: Order Added by Discern Expert. Performed By: #### 2 382482, 7383564 ####[facility] [address] [place] [address] Neutrophils/Leukoc ytes Auto (Bld) [Pure # fraction] 1.6 E9/L Low 2.0-7.[address] [facility] Comment on above: Order Comment: Order Added by Discern Expert. Performed By: #### 2 234359, 8007846 ####[address] [address] CBC w/ Auto Diffon 3 Erythrocyte distribution width (RBC) [Ratio] 13.0 % Normal 10.9-14.[address] [facility] Comment on above: Performed By: #### 2 580158, 5781567 ####[address] [address] Hematocrit (Bld) [Volume fraction] 32.9 % Low 34.0-46.[address] [facility] Comment on above: Performed By: #### 2 129523, 9345090 ####[address] [address] Hemoglobin (Bld) [Mass/Vol] 11.2 g/dL Low 12.0-16.[address] [facility] Comment on above: Performed By: #### 2 717241, 8609092 ####[address] [address] MCH (RBC) [Entitic mass] 31.7 pg Normal 27.0-34.[address] [facility] Comment on above: Performed By: #### 2 832595, 7523712 ####[address] [address] MCHC (RBC) [Mass/Vol] 34.2 g/dL Normal 31.4-36.[address] [facility] Comment on above: Performed By: #### 2 032560, 3068040 ####[address] [address] MCV (RBC) [Entitic vol] 92.7 fL Normal 80.0-100.[address] [facility] Comment on above: Performed By: #### 2 760301, 4322741 ####[facility] [address] [place] [address] Platelet mean volume (Bld) [Entitic vol] 8.5 fL Normal 6.4-10.[address] [facility] Comment on above: Performed By: #### 2 726028, 5345831 ####[address] [address] Platelets (Bld) [#/Vol] 99.0 E9/L Low 150.0-500.[address] [facility] Comment on above: Result Comment: Slid e reviewed by ANU.Platelet count verified using smear estimate Performed By: #### 2 489546, 6934605 ####[address] [address] RBC (Bld) [#/Vol] 3.6 E12/L Low 4.3-5.[address] [facility] Comment on above: Performed By: #### 2 562933, 5427168 ####[address] [address] WBC corrected for nucl RBC Auto (Bld) [#/Vol] 2.9 E9/L Low 4.0-11.[address] [facility] Comment on above: Performed By: #### 2 606104, 4808458 ####[address] Consent for Treatmenton 05-13 Consent for Treatment [id number]#[id number]:[address] [facility] HEMATOLOGYOrdered By: SYSTEM SYSTEM on 05-27-2023 Basophils/100 WBC (Bld) 1.3 % Normal 0.0 - 2.0 % [facility] Basophils/Leukocyt es Auto (Bld) [Pure # fraction] 0.0 E9/L Normal 0.0 - 0.2 E9/L [facility] Eosinophils/100 WBC (Bld) 5.3 % Normal 0.0 - 8.0 % [facility] Eosinophils/Leukoc ytes Auto (Bld) [Pure # fraction] 0.2 E9/L Normal 0.0 - 0.5 E9/L [facility] Lymphocytes/100 WBC (Bld) 26.5 % Normal 14.0 - 50.0 % [facility] Lymphocytes/Leukoc ytes Auto (Bld) [Pure # fraction] 0.8 E9/L Low 1.0 - 4.0 E9/L [facility] Monocytes/100 WBC (Bld) 10.9 % Normal 4.0 - 14.0 % [facility] Monocytes/Leukocyt es Auto (Bld) [Pure # fraction] 0.3 E9/L Normal 0.2 - 1.0 E9/L [facility] Neutrophils/100 WBC (Bld) 56.0 % Normal 36.0 - 75.0 % [facility] Neutrophils/Leukoc ytes Auto (Bld) [Pure # fraction] 1.6 E9/L [...] 3.6 E12/L Low 4.3 - 5.9 E12/L [facility] HemeAuto[facility] WBC corrected for nucl RBC Auto (Bld) [#/Vol] 2.9 E9/L Low 4.0 - 11.0 E9/L [facility] Comp panel: Leuk/Lym [id number] n 05-16-2023 Analysis and Gating Strategy Comment Invalid Interpretation Code [facility] Comment on above: Result Comment: 8 co afshin analysis with CD45/SSC gatingTechnical-Analysis performed at [facility], [address] [place] ,[place] [address] Director: Sonia Capps [facility] Performed By: #### 1 [id number], [id number], [id number], 4927922, [id number], [id number], [id number] ####[facility] [address] [place] [address] Annotation comment [Interpretation] Narrative Comment Invalid Interpretation Code [facility] Comment on above: Result Comment: Clin ical correlation is recommended. Performed By: #### 1 [id number], [id number], [id number], 3717817, [id number], [id number], [id number] ####[facility] [address] [place] [address] Assessment of Leukocytes Comment Invalid Interpretation Code [facility] Comment on above: Result Comment: No m onoclonal B cell population is detected.kappa:lambda ratio 1.9There is no loss of, or aberrant expression of, the martino T cell antigens tosuggest a neoplastic T cell process.CD4:CD8 ratio 9.1No circulating blasts are detected.There is no immunophenotypic evidence of abnormal myeloid maturation.Analysis of the lymphocyte population shows: B cells 13%, T cells 71%, NKcells 16%. Performed By: #### 1 [id number], [id number], [id number], 1574513, [id number], 877955977, [id number] ####[facility] [address] [place] [address] CLINICAL INFORMATION:FIND:P T: Comment Invalid Interpretation Code [facility] Comment on above: Result Comment: A re cent CBC was not available for review at the time this report wasprepared. Performed By: #### 1 [id number], [id number], [id number], 4583470, [id number], [id number], [id number] ####[facility] [address] [place] [address] Immunophenotyping study Comment Invalid Interpretation Code [facility] Comment on above: Result Comment: CD2 Normal CD3 NormalCD4 Normal CD5 NormalCD7 Normal CD8 ZfwwngCR72 Normal CD11b HbhuazAM81 Normal CD14 WsqwmyLY14 Normal CD19 AkbcwwAP74 Normal CD33 SjvkluVM46 Normal CD38 GsvcfdYQ76 Normal CD56 QgofenPP30 Normal CD117 NormalHLA-DR Normal KAPPA NormalLAMBDA Normal CD64 Normal Performed By: #### 1 [id number], 8763636964, 4455711995, 0498778, 1456928109, 632500511, 2310170737 ####[facility] [address] [place] [address] Laboratory comment Good (Report) Comment Invalid Interpretation Code [facility] Comment on above: Result Comment: Each antibody in this assay was utilized to assess for potentialabnormalities of studied cell populations or to characterizeidentified abnormalities.This test was developed and its performance characteristics determinedby [employer]. It has not been cleared or approved by the U.S. Food andDrug Administration.The FDA has determined that such clearance or approval is notnecessary. This test is used for clinical purposes. It should not beregarded as investigational or for research.Performed at: -Y [facility] [id number] [employer] [facility] [place], [place] [id number] [facility] Génesis DawsonnPerformed at: TG [facility] [id number] [employer] [facility], [place] [id number] [facility] Génesis Scott Performed By: #### 1 [id number], 9155242325, 9733216144, 1491499, 6871579404, 007383389, 9899413986 ####[facility] [address] [place] [address] Pathologist interpretation (Unsp spec) [Interp] Comment Invalid Interpretation Code [facility] Comment on above: Result Comment: No s ignificant immunophenotypic abnormality detected Performed By: #### 1 [id number], 5089614897, 6400798060, 8850310, 5841031268, 620426565, 3246067822 ####[facility] [address] [place] [address] Pathologist name Comment Invalid Interpretation Code [facility] Comment on above: Result Comment: Hoang Enamorado M.D. Performed By: #### 1 607693921, 8385303929, 4684057312, 4852010, 2798489136, 702288637, 8055259628 ####[address] [place] [address] Specimen source Nom (Unsp spec) Comment Invalid Interpretation Code [facility] Comment on above: Result Comment: Mary pheral blood Performed By: #### 1 537060939, 4120803448, 7403096654, 0055537, 7744532217, 333096634, 3862382817 ####[address] [place] [address] Viable cells/100 cells (Unsp spec) Comment Invalid Interpretation Code [facility] Comment on above: Result Comment: 86% Performed By: #### 1 119323295, 0222744467, 4926757426, 5419823, 6517310944, 835303170, 7221210887 ####[facility] [address] [place] [address] Flow Interp 16 or moreon Flow Interp 16 or more Performed Invalid Interpretation Code [facility] Comment on above: Result Comment: Perf ormed at: -Y [facility] [id number] [facility] [place], [place] [id number] [facility] Génesis Scott Performed By: #### 1 603533524, 8062233328, 3577876373, 5601820, 7267817785, 642481988, 8718756032 ####[facility] [address] [facility] [place] [address] Flow Marker, Firston 023 Flow Marker, First Performed Invalid Interpretation Code [facility] Comment on above: Result Comment: Perf ormed at: -Y [facility] [id number] [address] [employer] [place] [id number] [facility] Chenn Anjen Performed By: #### 1 821367718, 5705670268, 8071031237, 7592291, 1946685979, 825451711, 9339430036 ####[facility] [address] [place] [address] Flow Markers X 15on 05-16-20 23 Flow Markers X 15 Performed Invalid Interpretation Code [facility] Comment on above: Result Comment: Perf ormed at: -Y [facility] [id number] [employer] [place] [id number] [facility] Chenn Anjen Performed By: #### 1 044723976, 9340833772, 6985362818, 2111981, 2874571254, 873056522, 2280036547 ####[facility] [address] [place] [address] Flow Markers X 3on 3 Flow Markers X 3 Performed Invalid Interpretation Code [facility] Comment on above: Result Comment: Perf ormed at: -Y [facility] [id number] [employer] [place] [id number] [facility] Chenn Anjen Performed By: #### 1 [id number], 6855033938, 1395011705, 4983910, 0757041140, 238252728, 5007748530 ####[facility] [address] [place] [address] Flow Markers X 5on 3 Flow Markers X 5 Performed Invalid Interpretation Code [facility] Comment on above: Result Comment: Perf ormed at: -Y [facility] [id number] [address] [employer] [place] [id number] MDPhD Chenn Anjen Performed By: #### 1 045713942, 5751506035, 9754470685, 0220918, 9307478766, 598513341, 3878595778 ####[facility] [address] [place] [address] Lab Miscellaneous-on 05-16 Lab Miscellaneous COMMENT Invalid Interpretation Code [facility] Comment on above: Result Comment: Test Ordered: 553326 Platelet Antibody ProfileHLA Class 1 Antibody Negative BNReference Range: NegativeIIb/IIIa Antibody Negative BNReference Range: NegativeIb/IX Antibody Negative BNReference Range: NegativeIa/IIa Antibody Negative BNReference Range: NegativeGlycoprotein IV Antibody Negative BNReference Range: NegativePerformed at: [facility] [address] [place], [place] [id number] PhD David Alexandra Performed By: #### 1 [id number] ####[address] [address] Consent for Treatmenton Consent for Treatment [id number]#[id number]:[address] [facility] Consent for Treatment [id number]#[id number]:[address] [facility] HEMATOLOGYOrdered By: Mera Kincaid on 05-13-2023 Platelets (Bld) [#/Vol] 99.0 E9/L Low 150.0 - 500.0 E9/L [facility] HemeAutoSS Comment on above: Result Comment: Slid e reviewed by ANU. Lab Miscellaneous-LCon 05-13 Test Code 033149 Invalid Interpretation Code [facility] Comment on above: Performed By: #### 1 [id number] ####[facility] [address] [place] [address] Test Name Platelet Antibo Invalid Interpretation Code [facility] Comment on above: Performed By: #### 1 [id number] ####[address] [place] [address] Oncology Noteon 05-13-2023 Oncology Note Normal [facility] Comment on above: Result Comment: Elec tronically Signed By: Maria M MATOS, Ana Luisa Shepherd\.aidee\Date and Time Signed: 05/13/23 11:13 EDT Oncology Progress Noteon Oncology Progress Note Normal [facility] Oncology Progress Note Normal [facility] Platelet Counton 05-13-2023 Platelets (Bld) [#/Vol] 99.0 E9/L Low 150.0-500.[address] [facility] Comment on above: Order Comment: citra enid tube Result Comment: Slid e reviewed by ANU. Performed By: #### 1 [id number], 2839905667, 8443276739, 2100515, 2396601760, 558888818, 0315508906 ####[facility] [address] [place] [address] Reference Laboratory Testing Ordered By: Louann Girard on 05-13-2023 Test Code 724975 Invalid Interpretation Code [facility] Test Name Platelet Antibo Invalid Interpretation Code [facility] Consenton 05-02-2023 Consent [id number]#[id number]:[address] [facility] Lab Miscellaneous-LCon 05-02 Lab Miscellaneous COMMENT Invalid Interpretation Code [facility] Comment on above: Order Comment: CPT - 12143, 35870q4, 07168, 95637, 09715g8, 67430 Result Comment: Test Ordered: 549618 Flow Cytometry PNHInterpretation: Comment ;#Peripheral Blood:No evidence of paroxysmal nocturnal hemoglobinuria (PNH)DISCLAIMER: REFER TO HARDCOPY OR PDF FOR COMPLETE RESULT.If synopsis provided, clinical decisions should not bebased on this interfaced synopsis alone.Performed at: [address] [id number] PhD David Alexandra Performed By: #### 1 [id number] ####[facility] [address] [place] [address] ILANA w/Reflex if POSon 2022 Nuclear Ab Ql (S) Negative Invalid Interpretation Code Negative [facility] Comment on above: Result Comment: Perf ormed at: [facility] [place], [place] [id number] PhD David Alexandra Performed By: #### 1 7903075, 1111718, 33471429, 22335227, 2090206, 1433590, 9626826, 8673428, 28629686, 6149156, 2732661, 0036944, 7637615, 4256049 ####[facility] [address] [place] [address] Copper Lvlon 05-01-2023 Copper [Mass/Vol] 118 microgram/dL Invalid Interpretation Code 80-[address] [facility] Comment on above: Result Comment: This test was developed and its performance characteristicsdetermined by [employer]. It has not been cleared or approvedby the Food and Drug Administration.Detection Limit = 5Performed at: [address] [id number] MD Christiano Kolb Performed By: #### 1 7825013, 6726872, 79508876, 63211945, 9472788, 5210475, 7834089, 5746412, 32352159, 2475420, 4438267, 0570576, 1405424, 8575443 ####[facility] [address] [place] [address] RF Quanton 05-01-2023 Rheumatoid factor Qn [IU]/mL Invalid Interpretation Code <14.[address] [facility] Comment on above: Result Comment: Perf ormed at: [facility] [place], [place] [id number] PhD David Alexandra Performed By: #### 1 5029240, 8860565, 73914637, 84361273, 7629735, 4526075, 0158757, 2557170, 06773896, 8527886, 9116363, 2055286, 8022824, 6986637 ####[facility] [address] [place] [address] Auto Diffon 04-29-2023 Basophils/100 WBC (Bld) 1.1 % Normal 0.0-2.[address] [facility] Comment on above: Order Comment: Order Added by Discern Expert. Performed By: #### 1 9623983, 5169252, 48826835, 60817582, 0537707, 3159733, 9392408, 3458945, 95943708, 9132399, 6202855, 6135713, 5168742, 6690692 ####[facility] [address] [place] [address] Basophils/Leukocyt es Auto (Bld) [Pure # fraction] 0.0 E9/L Normal 0.0-0.[address] [facility] Comment on above: Order Comment: Order Added by Discern Expert. Performed By: #### 1 8625205, 2913118, 89738789, 25217675, 1657930, 9103484, 6576770, 7640063, 65349244, 0290982, 5198401, 3243678, 1459214, 1541402 ####[address] [place] [address] Eosinophils/100 WBC (Bld) 4.5 % Normal 0.0-8.[address] [facility] Comment on above: Order Comment: Order Added by Discern Expert. Performed By: #### 1 8813517, 2455602, 80191457, 48884453, 6861150, 5574682, 1867757, 8540535, 64847044, 4528065, 5503675, 6805115, 5459792, 4730784 ####[facility] [address] [place] [address] Eosinophils/Leukoc ytes Auto (Bld) [Pure # fraction] 0.2 E9/L Normal 0.0-0.[address] [facility] Comment on above: Order Comment: Order Added by Discern Expert. Performed By: #### 1 5794770, 5159560, 36042318, 64546941, 0931144, 4060333, 5702736, 3385884, 13881856, 6973819, 7143805, 9575544, 5763658, 7656309 ####[facility] [address] [place] [address] Lymphocytes/100 WBC (Bld) 23.0 % Normal 14.0-50.[address] [facility] Comment on above: Order Comment: Order Added by Discern Expert. Performed By: #### 1 2573929, 4179201, 39111382, 58420880, 3638666, 0531116, 7639810, 6880802, 31638267, 2225539, 9541788, 2939217, 1029390, 9925969 ####[facility] [address] [place] [address] Lymphocytes/Leukoc ytes Auto (Bld) [Pure # fraction] 0.8 E9/L Low 1.0-4.[address] [facility] Comment on above: Order Comment: Order Added by Discern Expert. Performed By: #### 1 6560476, 1618449, 84632486, 35605099, 8631731, 5312045, 2053218, 3528611, 69555894, 6841398, 9229561, 8265865, 4022704, 8449315 ####[address] [place] [address] Monocytes/100 WBC (Bld) 10.7 % Normal 4.0-14.[address] [facility] Comment on above: Order Comment: Order Added by Discern Expert. Performed By: #### 1 9703133, 9077045, 82688710, 48824566, 4070001, 4468894, 4928001, 4343082, 05605618, 1501622, 1508486, 0021650, 8647673, 2372646 ####[facility] [address] [place] [address] Monocytes/Leukocyt es Auto (Bld) [Pure # fraction] 0.4 E9/L Normal 0.2-1.[address] [facility] Comment on above: Order Comment: Order Added by Discern Expert. Performed By: #### 1 1734464, 3084442, 99276751, 12806276, 7377596, 3922266, 7705297, 0264413, 80843634, 7582630, 9299838, 7527147, 3243864, 8928640 ####[facility] [address] [place] [address] Neutrophils/100 WBC (Bld) 60.7 % Normal 36.0-75.[address] [facility] Comment on above: Order Comment: Order Added by Discern Expert. Performed By: #### 1 4056218, 1179092, 75851194, 40912797, 1452922, 6754318, 8075059, 7224296, 77016725, 2629925, 2746467, 5645191, 2002147, 2336611 ####[facility] [address] [place] [address] Neutrophils/Leukoc ytes Auto (Bld) [Pure # fraction] 2.1 E9/L Normal 2.0-7.[address] [facility] Comment on above: Order Comment: Order Added by Discern Expert. Performed By: #### 1 2965874, 0543460, 88051918, 74719959, 8431299, 9559030, 8647289, 8353068, 50133961, 2536319, 3638344, 7411549, 4005482, 7660785 ####[facility] [address] [place] [address] CBC w/ Auto Diffon 3 Erythrocyte distribution width (RBC) [Ratio] 13.3 % Normal 10.9-14.[address] [facility] Comment on above: Performed By: #### 1 2370808, 4149514, 52739735, 26883332, 8594319, 6654896, 1054729, 3790349, 02233506, 5248526, 8742993, 1848389, 8194329, 1114350 ####[facility] [address] [place] [address] Hematocrit (Bld) [Volume fraction] 36.7 % Normal 34.0-46.[address] [facility] Comment on above: Performed By: #### 1 8335930, 0331489, 71623853, 32916443, 9333390, 9033913, 4454583, 2268075, 39933565, 4423580, 7878673, 4619157, 1743420, 6671026 ####[address] [place] [address] Hemoglobin (Bld) [Mass/Vol] 12.5 g/dL Normal 12.0-16.[address] [facility] Comment on above: Performed By: #### 1 1967642, 0474547, 86632646, 15700950, 3227574, 0966206, 8016454, 9739178, 01073701, 8672244, 1311091, 9181156, 6524970, 7196491 ####[address] [place] [address] MCH (RBC) [Entitic mass] 31.2 pg Normal 27.0-34.[address] [facility] Comment on above: Performed By: #### 1 2906068, 6238943, 73398824, 06261103, 3474015, 3000438, 4435400, 0634762, 51806547, 9306322, 7754965, 6042274, 6173229, 6218536 ####[address] [address] MCHC (RBC) [Mass/Vol] 34.0 g/dL Normal 31.4-36.[address] [facility] Comment on above: Performed By: #### 1 7224228, 9167623, 11342646, 29695538, 1657660, 7273418, 8452232, 1300741, 46900080, 7839538, 7870723, 6842920, 3778158, 8825456 ####[address] [address] MCV (RBC) [Entitic vol] 91.6 fL Normal 80.0-100.[address] [facility] Comment on above: Performed By: #### 1 1745947, 2400173, 55487370, 75836375, 7442310, 8012102, 1797877, 2294460, 02978548, 0554275, 7125417, 0521393, 7024822, 7527878 ####[address] [place] [address] Platelet mean volume (Bld) [Entitic vol] 9.0 fL Normal 6.4-10.[address] [facility] Comment on above: Performed By: #### 1 2570886, 0325703, 34007082, 69095977, 0958196, 1419346, 1037520, 9347087, 28351433, 2248483, 2513386, 9319844, 4331801, 4440589 ####[address] [place] [address] Platelets (Bld) [#/Vol] 89.0 E9/L Low 150.0-500.[address] [facility] Comment on above: Result Comment: Slid e reviewed by dallas platelets. Performed By: #### 1 0961982, 7819054, 90680500, 33860468, 1102829, 0535168, 2630826, 9943848, 58253383, 3819409, 8530508, 3021967, 0176679, 0267247 ####[address] [address] RBC (Bld) [#/Vol] 4.0 E12/L Low 4.3-5.[address] [facility] Comment on above: Performed By: #### 1 8823704, 8418785, 72598728, 05095412, 9775131, 5133018, 7619247, 2598376, 30928637, 7076143, 3057347, 8535521, 9699424, 6089635 ####[facility] [address] [place] [address] WBC corrected for nucl RBC Auto (Bld) [#/Vol] 3.5 E9/L Low 4.0-11.[address] [facility] Comment on above: Performed By: #### 1 3141994, 0491564, 10100327, 23239925, 3364030, 7395557, 6985368, 9271590, 01314592, 1226861, 6386816, 4928585, 3555136, 2455782 ####[facility] [address] [place] [address] CMPon 04-29-2023 Albumin [Mass/Vol] 3.6 g/dL Normal 3.3-5.[address] [facility] Comment on above: Performed By: #### 1 4433776, 1253211, 43140237, 60307838, 1548010, 1588971, 8282680, 9401926, 05152260, 9917237, 7564336, 5486714, 0878785, 2256110 ####[facility] [address] [place] [address] Albumin/Globulin (S) [Mass conc ratio] 1.0 Low 1.1-2.[address] [facility] Comment on above: Performed By: #### 1 0030157, 7847316, 10334260, 40239987, 1781699, 7752801, 6308594, 5668012, 48228519, 7715735, 5417890, 4686769, 2503530, 4777686 ####[address] [place] [address] ALP [Catalytic activity/Vol] 76 Int._Unit/L Normal 21-[address] [facility] Comment on above: Performed By: #### 1 7932267, 6382527, 05127162, 83092904, 8088334, 0284837, 5560973, 7973682, 19948181, 7373633, 8989973, 8752818, 7102857, 4880851 ####[address] [place] [address] ALT No additional P-5'-P [Catalytic activity/Vol] 23 Int._Unit/L Normal 6-[address] [facility] Comment on above: Performed By: #### 1 0651571, 4044583, 70680611, 06793208, 1147663, 2822523, 7201129, 4156817, 40334172, 8558375, 1507733, 1902708, 8799910, 6702583 ####[address] [place] [address] Anion gap [Moles/Vol] 15 mmol/L Normal 6-[address] [facility] Comment on above: Performed By: #### 1 9883583, 5196826, 65880125, 91464646, 4822092, 3410965, 9529074, 4814021, 22487638, 4883627, 2183929, 7796745, 9351533, 0255957 ####[facility] [address] [place] [address] AST [Catalytic activity/Vol] 44 Int._Unit/L High 5-[address] [facility] Comment on above: Performed By: #### 1 4990673, 7843621, 91038145, 14671677, 2481007, 0754490, 4050148, 4089063, 85106822, 9330591, 5555167, 1173207, 9660076, 8084423 ####[facility] [address] [place] [address] Bilirubin [Mass/Vol] 1.2 mg/dL High 0.0-1.[address] [facility] Comment on above: Performed By: #### 1 6359687, 9602419, 23198998, 45551514, 2621461, 2890970, 0077678, 4138025, 06349037, 6727441, 5575724, 2993925, 5297061, 9452829 ####[facility] [address] [place] [address] Calcium [Mass/Vol] 9.3 mg/dL Normal 8.9-11.[address] [facility] Comment on above: Performed By: #### 1 1925319, 6484694, 29500229, 04487606, 1817893, 3343725, 6792087, 6174692, 06731490, 3130313, 6802375, 9524448, 8235487, 3632597 ####[facility] [address] [place] [address] Chloride [Moles/Vol] 105 mmol/L Normal 101-[address] [facility] Comment on above: Performed By: #### 1 6842658, 3548705, 35593874, 97951994, 4746109, 5875642, 0688829, 9440107, 01170734, 7052687, 0096256, 3866270, 5893633, 7951086 ####[facility] [address] [place] [address] CO2 [Moles/Vol] 23 mmol/L Normal 21-[address] [facility] Comment on above: Performed By: #### 1 5912243, 5184746, 20236467, 06608795, 5233016, 5356734, 3677919, 0063691, 29475363, 9375511, 5618587, 8365887, 8492148, 7454165 ####[facility] [address] [place] [address] Creatinine [Mass/Vol] 1.1 mg/dL Normal 0.5-1.[address] [facility] Comment on above: Performed By: #### 1 7299605, 1977261, 56606809, 39115309, 0988336, 3939494, 7390414, 5693805, 54480441, 6862439, 2035359, 7643042, 1756925, 3373548 ####[facility] [address] [place] [address] Globulin (S) [Mass/Vol] 3.5 g/dL Normal 1.4-4.[address] [facility] Comment on above: Performed By: #### 1 3447046, 3165389, 32221122, 61136796, 2739662, 7041600, 2263013, 6073868, 27806862, 6297278, 4374183, 2940830, 9326333, 5784087 ####[facility] [address] [place] [address] Glucose [Mass/Vol] 155 mg/dL Normal 55-[address] [facility] Comment on above: Result Comment: If t his glucose result represents a fasting glucose, interpretation should refer to the following reference range: 55-99 mg/dL Performed By: #### 1 0945265, 2195018, 91122234, 06232133, 2823296, 3540682, 4592822, 9450527, 11950664, 2537143, 6401698, 2191474, 4499931, 5072467 ####[facility] [address] [place] [address] Potassium [Moles/Vol] 3.5 mmol/L Normal 3.5-5.[address] [facility] Comment on above: Performed By: #### 1 4067035, 0681279, 86285269, 51274022, 4751415, 0950307, 6841026, 7870343, 76943734, 6651230, 5106701, 8615889, 4272893, 8168571 ####[facility] [address] [place] [address] Protein [Mass/Vol] 7.1 g/dL Normal 6.0-7.[address] [facility] Comment on above: Performed By: #### 1 6143976, 2620049, 18826572, 36216595, 3161882, 2771416, 7314559, 6130689, 10909131, 8499441, 3351915, 4252229, 7744976, 6949527 ####[address] [place] [address] Sodium [Moles/Vol] 139 mmol/L Normal 135-[address] [facility] Comment on above: Performed By: #### 1 7157211, 5341653, 79615292, 09187221, 6401258, 9568363, 8953203, 0504505, 67469791, 3175584, 6018308, 4546822, 1964527, 5178729 ####[facility] [address] [place] [address] Urea nitrogen [Mass/Vol] 13 mg/dL Normal 5-[address] [facility] Comment on above: Performed By: #### 1 5431735, 7087714, 88214317, 66448220, 6428780, 2934083, 0623102, 2911384, 94905474, 1470132, 0782137, 8661193, 5824935, 8013196 ####[facility] [address] [place] [address] Urea nitrogen/Creatinin e [Mass ratio] 12 No Units Normal 10-[address] [facility] Comment on above: Performed By: #### 1 8169205, 9408394, 00703005, 49309486, 8003802, 4830065, 6482172, 4802517, 22709995, 8169877, 8150160, 7630991, 3287919, 7973087 ####[facility] [address] [place] [address] Consent for Treatmenton 04-12 Consent for Treatment [id number]:[address] [facility] Consent for Treatment [id number]:[address] [facility] DATon 04-29-2023 LETICIA IgG/C3d Gel Interp Negative Normal [facility] Comment on above: Performed By: #### 1 0410237 ####[facility] [address] [place] [address] Ferritinon 04-29-2023 Ferritin [Mass/Vol] 45 ng/mL Normal 11-[address] [facility] Comment on above: Result Comment: NORM ALS MEN <30 YRS 16-132 ng/mL MEN >30 YRS 8-338 ng/mL WOMEN (PREMEN) 6-104 ng/mL WOMEN (POSTMEN) 12-210 ng/mL Performed By: #### 1 [id number], 6751434, 86624778, 30230002, 0959452, 9030861, 4965058, 5594315, 53037130, 0252167, 2695808, 8569056, 1990754, 4961591 ####[facility] [address] [place] [address] Folateon 04-29-2023 Folate [Mass/Vol] 12.6 ng/mL Normal >=6.[address] [facility] Comment on above: Performed By: #### 1 [id number], 6183968, 55121518, 50239880, 6623037, 5482525, 7724505, 0928257, 26089438, 6787041, 0316273, 0023298, 4559169, 9169163 ####[facility] [address] [place] [address] Ironon 04-29-2023 Iron [Mass/Vol] 128 microgram/dL Normal 35-153 [facility] Comment on above: Performed By: #### 1 [id number], 6749217, 70052719, 77062756, 3432524, 1726046, 3898449, 9074951, 86865414, 2369218, 3713002, 8019450, 9278407, 2640588 ####[address] [place] [address] Iron Saturationon 04-29-2023 Iron binding capacity [Mass/Vol] 391 microgram/dL Normal 250-[address] [facility] Comment on above: Performed By: #### 1 [id number], 6425488, 22194933, 52813215, 5776496, 5125711, 6174238, 3867359, 35641015, 8288994, 0469883, 2823329, 0554858, 0077119 ####[address] [address] Iron saturation [Mass fraction] 33 % Normal 20-[address] [facility] Comment on above: Performed By: #### 1 4476375, 6638101, 09254794, 50818703, 3522424, 3902024, 1298610, 0904556, 84371160, 9638881, 8671152, 3071159, 1714695, 3314986 ####[facility] [address] [place] [address] LDHon 04-29-2023 LDH [Catalytic activity/Vol] 195 Int._Unit/L Normal 93-[address] [facility] Comment on above: Performed By: #### 1 5754802, 7620111, 56678981, 16262924, 9914275, 9137938, 0396955, 1865522, 13361113, 4616760, 2075028, 2434556, 8790401, 5976149 ####[address] [place] [address] Lab Miscellaneous-LCon 04-29 Test Code 449013 Invalid Interpretation Code [facility] Comment on above: Order Comment: CPT - 53480, 82860z9, 42210, 74536, 55841i7, 80204 Performed By: #### 1 [id number] ####[facility] [address] [place] [address] Test Name PNH Flow Cytome Invalid Interpretation Code [facility] Comment on above: Order Comment: CPT - 98938, 07563r0, 58225, 95717, 70746r7, 14133 Performed By: #### 1 [id number] ####[facility] [address] [place] [address] Oncology Noteon 04-29-2023 Oncology Note Normal [facility] Comment on above: Result Comment: Elec tronically Signed By: Maria M MATOS, Ana Luisa Morel.br\Date and Time Signed: 04/29/23 10:56 EDT Transferrinon 04-29-2023 Transferrin [Mass/Vol] 279 mg/dL Normal 200-[address] [facility] Comment on above: Performed By: #### 1 [id number], 2308504, 77329296, 65488429, 6599826, 4229407, 8618348, 1070387, 98873453, 5526610, 7900554, 5899776, 6730108, 9359229 ####[facility] [address] [place] [address] Vit B12on 04-29-2023 Cobalamin (Vitamin B12) [Mass/Vol] 549 pg/mL Normal 50-[address] [facility] Comment on above: Performed By: #### 1 3805832, 6256070, 47977109, 04755856, 2530427, 6332383, 9345000, 9253586, 67754076, 9326293, 4878268, 8131551, 8925134, 9411482 ####[facility] [address] [place] [address] eGFRon 04-29-2023 GFR/1.73 sq M.predicted among non-blacks MDRD (S/P/Bld) [Vol rate/Area] 54 mL/min/1.73 m2 Low >=[address] [facility] Comment on above: Order Comment: Order added by Discern Expert. Result Comment: Electronic Console Display Operator annabella kidney disease could be indicated at eGFR's of less than 60 mL/min/1.73m2. Kidney failure is indicated at less than 15 mL/min/1.73m2. Performed By: #### 1 [id number], 0606848, 72342931, 80091223, 4088234, 3775157, 0243773, 1148995, 28087725, 4310011, 7256971, 8642226, 9109052, 4356920 ####[facility] [address] [place] [address] CHEMISTRYOrdered By: SYSTEM SYSTEM on 03-17-2023 Albumin [...] Calcium [Mass/Vol] 9.1 mg/dL Normal 8.9 - 11. 1 mg/dL [facility] Chloride [Moles/Vol] 102 mmol/L Normal 101 - 111 mmol/L [facility] Cholesterol [Mass/Vol] 156 mg/dL Normal 120 - 200 mg/dL [facility] Cholesterol in HDL [Mass/Vol] 28 mg/dL Invalid Interpretation Code [facility] Cholesterol in LDL [Mass/Vol] 94 mg/dL Normal <=129mg/dL [facility] Cholesterol in VLDL [Mass/Vol] 25 mg/dL Normal 7 - 40 mg/dL [facility] CO2 [Moles/Vol] 25 mmol/L Normal 21 - 31 mmol/L [facility] Creatinine [Mass/Vol] 1.3 mg/dL Normal 0.5 - 1.3 mg/dL [facility] GFR/1.73 sq M.predicted among non-blacks MDRD (S/P/Bld) [Vol rate/Area] 45 mL/min/1.73 m2 Low >=59mL/min/1.73 m2 [facility] S Globulin (S) [Mass/Vol] 3.3 g/dL Normal 1.4 - 4.0 gm/dL [facility] Glucose [Mass/Vol] 190 mg/dL Normal 55 - 199 mg/dL [facility] Potassium [Moles/Vol] 3.2 mmol/L Low 3.5 - 5.3 mmol/L [facility] Protein [Mass/Vol] 7.0 g/dL Normal 6.0 - 7.8 gm/dL F [facility] Sodium [Moles/Vol] 137 mmol/L Normal 135 - 145 mmol/L [facility] Triglyceride [Mass/Vol] 125 mg/dL Normal <=149mg/dL [facility] TSH Qn 3.80 m[IU]/L Normal 0.34 - 5.60 mcIU/mL [facility] Urea nitrogen [Mass/Vol] 15 mg/dL Normal 5 - 21 mg/dL [facility] Urea nitrogen/Creatinin e [Mass ratio] 12 mg/mg Normal 10 - 20 [facility] CHEMISTRYOrdered By: Stanton lu on 03-17-2023 Albumin DL <= 20 mg/L (U) [Mass/Vol] 5.1 microgram/mL Normal 0.0 - 19.0 mcg/mL [facility] CHEMISTRYOrdered By: Jayna casillas on 03-17-2023 HbA1c (Bld) [Mass fraction] 7.0 % High <=5.9% [facility] HEMATOLOGYOrdered By: SYSTEM SYSTEM on 03-17-2023 Basophils/100 WBC (Bld) 1.2 % Normal 0.0 - 2.0 % [facility] Basophils/Leukocyt es Auto (Bld) [Pure # fraction] 0.0 E9/L Normal 0.0 - 0.2 E9/L [facility] Eosinophils/100 WBC (Bld) 3.2 % Normal 0.0 - 8.0 % [facility] Eosinophils/Leukoc ytes Auto (Bld) [Pure # fraction] 0.1 E9/L Normal 0.0 - 0.5 E9/L [facility] Lymphocytes/100 WBC (Bld) 28.3 % Normal 14.0 - 50.0 % [facility] Lymphocytes/Leukoc ytes Auto (Bld) [Pure # fraction] 0.8 E9/L Low 1.0 - 4.0 E9/L [facility] Monocytes/100 WBC (Bld) 11.1 % Normal 4.0 - 14.0 % [facility] Monocytes/Leukocyt es Auto (Bld) [Pure # fraction] 0.3 E9/L Normal 0.2 - 1.0 E9/L [facility] Neutrophils/100 WBC (Bld) 56.2 % Normal 36.0 - 75.0 % [facility] Neutrophils/Leukoc ytes Auto (Bld) [Pure # fraction] 1.7 E9/L Low 2.0 - 7.5 E9/L [facility] HEMATOLOGYOrdered By: Jayna Butts on 03-17-2023 Erythrocyte distribution width (RBC) [Ratio] 13.7 % Normal 10.9 - 14.2 % [facility] Hematocrit (Bld) [Volume fraction] 36.8 % Normal 34.0 - 46.0 % [facility] Hemoglobin (Bld) [Mass/Vol] 12.3 g/dL Normal 12.0 - 16.0 gm/dL [facility] MCH (RBC) [Entitic mass] 30.5 pg Normal 27.0 - 34.0 pg [facility] MCHC (RBC) [Mass/Vol] 33.4 g/dL Normal 31.4 - 36.0 gm/dL [facility] MCV (RBC) [Entitic vol] 91.5 fL Normal 80.0 - 100.0 fL [facility] Platelet mean volume (Bld) [Entitic vol] 8.9 fL Normal 6.4 - 10.8 fL [facility] Platelets (Bld) [#/Vol] 101.0 E9/L Low 150.0 - 500.0 E9/L [facility] RBC (Bld) [#/Vol] 4.0 E12/L Low 4.3 - 5.9 E12/L [facility] WBC corrected for nucl RBC Auto (Bld) [#/Vol] 3.0 E9/L Low 4.0 - 11.0 E9/L [facility] FREE T3on 09-18-2022 FREE T3 1.81 pg/mlL Critically low 2.18-3.98 [facility] Comment on above: Performed By: #### T SH, FT3 #### [facility] [address] [place] [address] Dr. Jt Waite FREE T4on 09-18-2022 Free T4 [Mass/Vol] 1.19 ng/dL Normal 0.76-1.46 [facility] Comment on above: Performed By: #### F T4 #### [facility] [address] [place] [address] Dr. Jt Waite GLYCOHEMOGLOBIN A1Con 2021 ADA RECOMMENDATION SEE BELOW Normal [facility] Comment on above: Result Comment: ADA RECOMMENDED LIMIT 4.0 - 6.0 ADA THERAPEUTIC TARGET < 7.0 ACTION SUGGESTED > 7.0 Performed By: #### A 1C #### [facility] [address] [place] [address] Dr. Jt Waite Glucose [Mass/Vol] 146 mg/dL Normal [facility] Comment on above: Performed By: #### A 1C #### [facility] [address] [place] [address] Dr. Jt Waite HbA1c (Bld) [Mass fraction] 6.7 % Critically high 4.5-6.2 [facility] Comment on above: Performed By: #### A 1C #### [facility] [address] [place] [address] Dr. Jt Waite TSHon 09-18-2022 TSH 3.693 uIU/mL Normal 0.358-3.740 [facility] Comment on above: Performed By: #### T , FT3 ####[facility] [address] [place], [place] [address]XuDr. Jt Waite CBC AUTO DIFFon 04-03-2022 BASO # 0.0 103/ul Normal 0.0-0.1 [facility] Comment on above: Performed By: #### C BC #### [facility] [address] [address] [address] Jt Waite Basophils/100 WBC (Bld) 0.9 % Normal 0.2-2.0 [facility] Comment on above: Performed By: #### C BC #### [facility] [address] [address] [address] Jt aWite EO # 0.1 103/ul Normal 0.0-0.7 [facility] Comment on above: Performed By: #### C BC #### [facility] [address] [address] [address] Jt Waite Eosinophils/100 WBC (Bld) 3.3 % Normal 0.9-7.0 [facility] Comment on above: Performed By: #### C BC #### [facility] [address] [address] [address] Jt Waite Erythrocyte distribution width (RBC) [Ratio] 13.1 % Normal 11.0-15.0 [facility] Comment on above: Performed By: #### C BC #### [facility] [address] [address] [address] Jt Waite Hematocrit (Bld) [Volume fraction] 36.1 % Normal 36.0-48.0 [facility] Comment on above: Performed By: #### C BC #### [facility] [address] [address] [address] Jt Waite Hemoglobin (Bld) [Mass/Vol] 12.3 g/dL Normal 12.0-16.0 [facility] Comment on above: Performed By: #### C BC #### [facility] [address] [address] [address] Jt Waite IG # 0.01 10e3/ul Normal 0.00-0.03 [facility] Comment on above: Performed By: #### C BC #### [facility] [address] [place] [address] Dr. Jt Waite IG % 0.3 % Normal 0.0-0.5 [facility] Comment on above: Performed By: #### C BC #### [facility] [address] [place] [address] Dr. Jt Waite LYMPH # 1.2 103/ul Normal 1.2-3.8 [facility] Comment on above: Performed By: #### C BC #### [facility] [address] [place] [address] Dr. Jt Waite Lymphocytes/100 WBC (Bld) 35.4 % Normal 20.5-60.0 [facility] Comment on above: Performed By: #### C BC #### [facility] [address] [place] [address] Dr. Jt Waite MANUAL DIFF REQ NO Normal [facility] Comment on above: Performed By: #### C BC #### [facility] [address] [place] [address] Dr. Jt Waite MCH (RBC) [Entitic mass] 31.0 pg Normal 26.7-34.0 [facility] Comment on above: Performed By: #### C BC #### [facility] [address] [place] [address] Dr. Jt Waite MCHC (RBC) [Mass/Vol] 34.1 g/dL Normal 29.9-35.2 [facility] Comment on above: Performed By: #### C BC #### [facility] [address] [place] [address] Dr. Jt Waite MCV (RBC) [Entitic vol] 90.9 fL Normal 81.0-99.0 [facility] Comment on above: Performed By: #### C BC #### [facility] [address] [place] [address] Dr. Jt Waite MONO # 0.3 103/ul Normal 0.3-0.8 [facility] Comment on above: Performed By: #### C BC #### [facility] [address] [place] [address] Dr. Jt Waite Monocytes/100 WBC (Bld) 9.3 % Normal 1.7-12.0 [facility] Comment on above: Performed By: #### C BC #### [facility] [address] [address] [address] Jt Waite NEUT # 1.7 103/ul Normal 1.4-6.5 [facility] Comment on above: Performed By: #### C BC #### [facility] [address] [place] [address] Dr. Jt Waite Neutrophils/100 WBC (Bld) 50.8 % Normal 43.0-75.0 [facility] Comment on above: Performed By: #### C BC #### [facility] [address] [place] [address] Dr. Jt Waite Platelet mean volume (Bld) [Entitic vol] 10.2 fL Normal 9.5-13.5 [facility] Comment on above: Performed By: #### C BC #### [facility] [address] [place] [address] Dr. Jt Waite PLT 96 103/ul Critically low 150-450 [facility] Comment on above: Performed By: #### C BC #### [facility] [address] [place] [address] Dr. Jt Waite RBC 3.97 106/ul Critically low 4.20-5.40 [facility] Comment on above: Performed By: #### C BC #### [facility] [address] [place] [address] Dr. Jt Waite WBC 3.3 103/ul Critically low 4.0-11.0 [facility] Comment on above: Performed By: #### C BC #### [facility] [address] [place] [address] Dr. Jt Waite GLYCOHEMOGLOBIN A1Con 2021 ADA RECOMMENDATION SEE BELOW Normal [facility] Comment on above: Result Comment: ADA RECOMMENDED LIMIT 4.0 - 6.0 ADA THERAPEUTIC TARGET < 7.0 ACTION SUGGESTED > 7.0 Performed By: #### A 1C #### [facility] [address] [place] [address] Dr. Jt Waite Glucose [Mass/Vol] 120 mg/dL Normal [facility] Comment on above: Performed By: #### A 1C #### [facility] [address] [place] [address] Dr. Jt Waite HbA1c (Bld) [Mass fraction] 5.8 % Normal 4.5-6.2 [facility] Comment on above: Performed By: #### A 1C #### [facility] [address] [place] [address] Dr. Jt Waite LIPID PROFILEon 04-03-2022 CHOL-HDL RATIO NORM SEE BELOW Normal [facility] Comment on above: Result Comment: 3.3 - 4.4 LOW RISK 4.4 - 7.1 AVERAGE RISK 7.1 - 11.0 MODERATE RISK >11.0 HIGH RISK Performed By: #### C MP, LIPID #### [facility] [address] [place] [address] Dr. Jt Waite Cholesterol [Mass/Vol] 133 mg/dL Normal <=200 [facility] Comment on above: Performed By: #### C MP, LIPID #### [facility] [address] [place] [address] Dr. Jt Waite Cholesterol in HDL [Mass/Vol] 37 mg/dL Critically low 40-60 [facility] Comment on above: Performed By: #### C MP, LIPID #### [facility] [address] [place] [address] Dr. Jt Waite Cholesterol in LDL [Mass/Vol] 81.0 mg/dL Normal [facility] Comment on above: Performed By: #### C MP, LIPID #### [facility] [address] [place] [address] Dr. Jt Waite Cholesterol.total/ Cholesterol in HDL [Mass ratio] 3.6 {ratio} Normal [facility] Comment on above: Performed By: #### C MP, LIPID #### [facility] [address] [place] [address] Dr. Jt Waite HDL NORMAL > or = 60 mg/dl - LO W CARDIOVASCULAR RISK <40 mg/dl - HIGH CARDIOVASCULAR RISK Normal [facility] Comment on above: Performed By: #### C MP, LIPID #### [facility] [address] [place] [address] Dr. Jt Waite LDL CALC NORMAL SEE BELOW Normal [facility] Comment on above: Result Comment: <100 mg/dl OPTIMAL 100 - 129 mg/dl NEAR OR ABOVE OPTIMAL 130 - 159 mg/dl BORDERLINE HIGH 160 - 189 mg/dl HIGH >190 mg/dl VERY HIGH Performed By: #### C MP, LIPID #### [facility] [address] [place] [address] Dr. Jt Waite Triglyceride [Mass/Vol] 75 mg/dL Normal <=150 [facility] Comment on above: Performed By: #### C MP, LIPID #### [facility] [address] [place] [address] Dr. Jt Waite VLDL CALC 15.0 mg/dL Normal [facility] Comment on above: Performed By: #### C MP, LIPID #### [facility] [address] [place] [address] Dr. Jt Waite PROF 14(COMP METB)on 022 Albumin [Mass/Vol] 3.4 g/dL Normal 3.4-5.0 [facility] Comment on above: Performed By: #### C MP, LIPID #### [facility] [address] [place] [address] Dr. Jt Waite Albumin/Globulin [Mass ratio] 0.9 {ratio} Normal [facility] Comment on above: Performed By: #### C MP, LIPID #### [facility] [address] [place] [address] Dr. Jt Waite ALP [Catalytic activity/Vol] 82 U/L Normal 46-116 [facility] Comment on above: Performed By: #### C MP, LIPID #### [facility] [address] [place] [address] Dr. Jt Waiet ALT [Catalytic activity/Vol] 24 U/L Normal 14-59 [facility] Comment on above: Performed By: #### C MP, LIPID #### [facility] [address] [address] [address] Jt Waite Anion gap [Moles/Vol] 13.1 mmol/L Normal [facility] Comment on above: Performed By: #### C MP, LIPID #### [facility] [address] [address] [address] Jt Waite AST [Catalytic activity/Vol] 31 U/L Normal 15-37 [facility] Comment on above: Performed By: #### C MP, LIPID #### [facility] [address] [address] [address] Jt Waite Bilirubin [Mass/Vol] 1.0 mg/dL Normal 0.2-1.0 [facility] Comment on above: Performed By: #### C MP, LIPID #### [facility] [address] [place] [address] Dr. Jt Waite Calcium [Mass/Vol] 9.1 mg/dL Normal 8.5-10.1 [facility] Comment on above: Performed By: #### C MP, LIPID #### [facility] [address] [address] [address] Jt Waite Chloride [Moles/Vol] 105 mmol/L Normal 98-107 [facility] Comment on above: Performed By: #### C MP, LIPID #### [facility] [address] [place] [address] Dr. Jt Waite CO2 [Moles/Vol] 27.4 mmol/L Normal 21.0-32.0 [facility] Comment on above: Performed By: #### C MP, LIPID #### [facility] [address] [address] [address] Jt Waite Creatinine [Mass/Vol] 1.03 mg/dL Critically high 0.55-1.02 [facility] Comment on above: Performed By: #### C MP, LIPID #### [facility] [address] [address] [address] Jt Waite EGFR-AF FILIPINO >60 Normal >=60 [facility] Comment on above: Performed By: #### C MP, LIPID #### [facility] [address] [address] [address] Jt Waite EGFR-NON AF FILIPINO 53 mL/min/1.73m2 Critically low >=60 [facility] Comment on above: Performed By: #### C MP, LIPID #### [facility] [address] [address] [address] Jt Waite Globulin (S) [Mass/Vol] 3.7 g/dL Normal [facility] Comment on above: Performed By: #### C MP, LIPID #### [facility] [address] [address] [address] Jt Waite Glucose [Mass/Vol] 100 mg/dL Normal 74-106 [facility] Comment on above: Performed By: #### C MP, LIPID #### [facility] [address] [address] [address] Jt Waite Potassium [Moles/Vol] 3.5 mmol/L Normal 3.5-5.1 [facility] Comment on above: Performed By: #### C MP, LIPID #### [facility] [address] [address] [address] Jt Waite Protein [Mass/Vol] 7.1 g/dL Normal 6.4-8.2 [facility] Comment on above: Performed By: #### C MP, LIPID #### [facility] [address] [address] [address] Jt Waite Sodium [Moles/Vol] 142 mmol/L Normal 136-145 [facility] Comment on above: Performed By: #### C MP, LIPID #### [facility] [address] [address] [address] Jt Waite Urea nitrogen [Mass/Vol] 23.0 mg/dL Critically high 7.0-18.0 [facility] Comment on above: Performed By: #### C MP, LIPID #### [facility] [address] [address] [address] Jt Waite Urea nitrogen/Creatinin e [Mass ratio] 22.3 mg/mg Normal [facility] Comment on above: Performed By: #### C MP, LIPID #### [facility] [address] [address] [address] Jt Waite D-DIMERon 03-15-2022 D-DIMER 0.32 mg/L FEU Normal <=0.59 [facility] Comment on above: Performed By: #### D DIM #### [facility] [address] [place] [address] Dr. Jt Waite D-DIMER COMMENTS SEE BELOW Normal [facility] Comment on above: Result Comment: Incr eases [...] hospitalization. Performed By: #### D DIM #### [facility] [address] [place] [address] Dr. Jt Waite ECHOCARDIO M/2D COMPLETEon 0 03-12-2022 ECHOCARDIO M/2D COMPLETE Patient: MISA SANTOS Exam Date: 03/12/2022 : 1955 Gender:F Ordering : HOLLY VALDOVINOS Admission #: [id number] Family : Order #: [id number] CLICK HERE TO VIEW EXAM ECHOCARDIOGRAM REPORT [...] Area(A4C): 25.20 cm2 Left Atrium Systolic Volume(A2C): 51636 mm3 Left Atrium Systolic Volume(A4C): 53582 mm3 Mitral Valve MV E to A [...] Perdue M.D. on 03/12/2022 at 19:30 Normal [facility] GLYCOHEMOGLOBIN A1Con 2020 ADA RECOMMENDATION ADA THERAPEUTIC TARG ET 6.0 - 7.0 ACTION SUGGESTED > 7.0 Normal [facility] Comment on above: Performed By: #### A 1C #### [facility] [address] [address] [address] Jt Waite Glucose [Mass/Vol] 140 mg/dL Normal [facility] Comment on above: Performed By: #### A 1C #### [facility] [address] [address] [address] Jt Waite HbA1c (Bld) [Mass fraction] 6.5 % Critically high <=6.0 [facility] Comment on above: Performed By: #### A 1C #### [facility] [address] [address] [address] Jt Waite Vital Signs Date Time Vital Sign Value Performing Clinician Facility 03-15-2024 09:57-0400 Body temperature 97.52 [degF] d [facility] 03-15-2024 09:57-0400 Diastolic blood pressure 82 mm[Hg] d [facility] 03-15-2024 09:57-0400 Heart rate 64 /min d [facility] 03-15-2024 09:57-0400 Mean blood pressure 94 mm[Hg] [facility] [facility] 03-15-2024 09:57-0400 Respiratory rate 16 /min d Al-Marrawi [facility] 03-15-2024 09:57-0400 SaO2% (BldA) [Mass fraction] 93 % Mhd Al-Marrawi [facility] 03-15-2024 09:57-0400 Systolic blood pressure 118 mm[Hg] Mhd Al-Marrawi [facility] 03-02-2024 12:19-0400 Blood Pressure Location Cabrera Sarmini [facility] 03-02-2024 12:19-0400 Diastolic blood pressure 84 mm[Hg] Cabrera Sarmini [facility] 03-02-2024 12:19-0400 Heart rate 78 /min Cabrera Sarmini [facility] 03-02-2024 12:19-0400 Respiratory rate 18 /min Cabrera Sarmini [facility] 03-02-2024 12:19-0400 Systolic blood pressure 120 mm[Hg] Cabrera Sarmini [facility] 02-06-2024 11:25-0400 Blood Pressure Location Cabrera Sarmini [facility] 02-06-2024 11:25-0400 Diastolic blood pressure 72 mm[Hg] Cabrera Sarmini [facility] 02-06-2024 11:25-0400 Heart rate 54 /min Cabrera Sarmini [facility] 02-06-2024 11:25-0400 Mean blood pressure 90 mm[Hg] Cabrera Sarmini [facility] 02-06-2024 11:25-0400 Respiratory rate 14 /min Cabrera Sarmini [facility] 02-06-2024 11:25-0400 SaO2% (BldA) [Mass fraction] 96 % Cabrera Sarmini [facility] 02-06-2024 11:25-0400 Systolic blood pressure 125 mm[Hg] Cabrera Sarmini [facility] 02-06-2024 11:15-0400 Blood Pressure Location Cabrera Sarmini [facility] 02-06-2024 11:15-0400 Diastolic blood pressure 68 mm[Hg] Cabrera Sarmini [facility] 02-06-2024 11:15-0400 Heart rate 58 /min Cabrera Sarmini [facility] 02-06-2024 11:15-0400 Mean blood pressure 84 mm[Hg] Cabrera Sarmini [facility] 02-06-2024 11:15-0400 Respiratory rate 27 /min Cabrera Sarmini [facility] 02-06-2024 11:15-0400 SaO2% (BldA) [Mass fraction] 96 % Cabrera Sarmini [facility] 02-06-2024 11:15-0400 Systolic blood pressure 115 mm[Hg] Cabrera Sarmini [facility] 02-06-2024 11:10-0400 Blood Pressure Location Cabrera Sarmini [facility] 02-06-2024 11:10-0400 Diastolic blood pressure 72 mm[Hg] Cabrera Sarmini [facility] 02-06-2024 11:10-0400 Heart rate 51 /min Cabrera Sarmini [facility] 02-06-2024 11:10-0400 Mean blood pressure 85 mm[Hg] Cabrera Sarmini [facility] 02-06-2024 11:10-0400 Respiratory rate 18 /min Cabrera Sarmini [facility] 02-06-2024 11:10-0400 SaO2% (BldA) [Mass fraction] 94 % Cabrera Sarmini [facility] 02-06-2024 11:10-0400 Systolic blood pressure 112 mm[Hg] Cabrera Sarmini [facility] 02-06-2024 11:03-0400 Body temperature 97.34 [degF] Cabrera Sarmini [facility] 02-06-2024 10:55-0400 Respiratory rate 17 /min Cabrera Sarmini [facility] 02-06-2024 10:50-0400 Respiratory rate 18 /min Cabrera Sarmini [facility] 02-06-2024 09:23-0400 Body temperature 97.52 [degF] Cabrera Sarmini [facility] 12-15-2023 10:11-0500 Body temperature 97.7 [degF] Mhd Al-Marrawi [facility] 12-15-2023 10:11-0500 Diastolic blood pressure 55 mm[Hg] Mhd Al-Marrawi [facility] 12-15-2023 10:11-0500 Heart rate 53 /min Mhd Al-Marrawi [facility] 12-15-2023 10:11-0500 Mean blood pressure 71 mm[Hg] Mhd Al-Marrawi [facility] 12-15-2023 10:11-0500 Respiratory rate 20 /min Mhd Al-Marrawi [facility] 12-15-2023 10:11-0500 SaO2% (BldA) [Mass fraction] 96 % Mhd Al-Marrawi [facility] 12-15-2023 10:11-0500 Systolic blood pressure 104 mm[Hg] d Pa-Marrawi [facility] 10-01-2023 12:37-0500 Blood Pressure Location Ashlie Boston [facility] 10-01-2023 12:37-0500 Body temperature 96.8 [degF] Ashlie Boston [facility] 10-01-2023 12:37-0500 Diastolic blood pressure 79 mm[Hg] Ashlie Boston [facility] 10-01-2023 12:37-0500 Heart rate 55 /min Ashlie Boston [facility] 10-01-2023 12:37-0500 Systolic blood pressure 119 mm[Hg] Ashlie Boston [facility] 07-31-2023 09:49-0400 Blood Pressure Location Ashlie Boston [facility] 07-31-2023 09:49-0400 Body temperature 96.8 [degF] Ashlie Boston [facility] 07-31-2023 09:49-0400 Diastolic blood pressure 67 mm[Hg] Ashlie Boston [facility] 07-31-2023 09:49-0400 Heart rate 59 /min Ashlie Mead [facility] 07-31-2023 09:49-0400 Systolic blood pressure 123 mm[Hg] Ashlie Mead [facility] 06-24-2023 10:12-0400 Heart rate 48 /min Mhd Al-Marrawi [facility] 06-24-2023 10:12-0400 SaO2% (BldA) [Mass fraction] 96 % Mhd Al-Marrawi [facility] 06-24-2023 10:12-0400 Blood Pressure Location Mhd Al-Marrawi [facility] 06-24-2023 10:12-0400 Diastolic blood pressure 61 mm[Hg] Mhd Al-Marrawi [facility] 06-24-2023 10:12-0400 Mean blood pressure 79 mm[Hg] Mhd Al-Marrawi [facility] 06-24-2023 10:12-0400 Systolic blood pressure 115 mm[Hg] Mhd Al-Marrawi [facility] 06-24-2023 10:11-0400 Body temperature 97.88 [degF] Mhd Al-Marrawi [facility] 06-24-2023 10:11-0400 Respiratory rate 17 /min Mhd Al-Marrawi [facility] 06-24-2023 09:04-0400 Heart rate 58 /min Mhd Al-Marrawi [facility] 06-24-2023 09:04-0400 SaO2% (BldA) [Mass fraction] 96 % Mhd Al-Marrawi [facility] 06-24-2023 09:04-0400 Respiratory rate 18 /min Mhd Al-Marrawi [facility] 06-24-2023 09:04-0400 Blood Pressure Location Mhd Al-Marrawi [facility] 06-24-2023 09:04-0400 Diastolic blood pressure 76 mm[Hg] Mhd Al-Marrawi [facility] 06-24-2023 09:04-0400 Mean blood pressure 94 mm[Hg] Mhd Al-Marrawi [facility] 06-24-2023 09:04-0400 Systolic blood pressure 131 mm[Hg] Mhd Al-Marrawi [facility] 06-17-2023 10:00-0400 Blood Pressure Location Mhd Al-Marrawi [facility] 06-17-2023 10:00-0400 Body temperature 98.42 [degF] Mhd Al-Marrawi [facility] 06-17-2023 10:00-0400 Diastolic blood pressure 74 mm[Hg] Mhd Al-Marrawi [facility] 06-17-2023 10:00-0400 Heart rate 49 /min Mhd Al-Marrawi [facility] 06-17-2023 10:00-0400 Mean blood pressure 92 mm[Hg] Mhd Al-Marrawi [facility] 06-17-2023 10:00-0400 Respiratory rate 18 /min Mhd Al-Marrawi [facility] 06-17-2023 10:00-0400 SaO2% (BldA) [Mass fraction] 95 % Mhd Al-Marrawi [facility] 06-17-2023 10:00-0400 Systolic blood pressure 128 mm[Hg] Mhd Al-Marrawi [facility] 06-04-2023 13:02-0400 Blood Pressure Location Cabrera Sarmini [facility] 06-04-2023 13:02-0400 Diastolic blood pressure 70 mm[Hg] Cabrera Sarmini [facility] 06-04-2023 13:02-0400 Heart rate 76 /min Cabrera Sarmini [facility] 06-04-2023 13:02-0400 Respiratory rate 16 /min Cabrera Sarmini [facility] 06-04-2023 13:02-0400 Systolic blood pressure 122 mm[Hg] Cabrera Sarmini [facility] 05-13-2023 10:00-0400 Blood Pressure Location Mhd Al-Marrawi [facility] 05-13-2023 10:00-0400 Body temperature 97.52 [degF] Mhd Al-Marrawi [facility] 05-13-2023 10:00-0400 Diastolic blood pressure 77 mm[Hg] Mhd Al-Marrawi [facility] 05-13-2023 10:00-0400 Heart rate 56 /min Mhd Al-Marrawi [facility] 05-13-2023 10:00-0400 Mean blood pressure 95 mm[Hg] Mhd Al-Marrawi [facility] 05-13-2023 10:00-0400 SaO2% (BldA) [Mass fraction] 96 % d Al-Marrawi [facility] 05-13-2023 10:00-0400 Systolic blood pressure 130 mm[Hg] Mhd Al-Marrawi [facility] 04-29-2023 10:00-0400 Blood Pressure Location [facility] 04-29-2023 10:00-0400 Body temperature 98.06 [degF] [facility] 04-29-2023 10:00-0400 Diastolic blood pressure 72 mm[Hg] [facility] 04-29-2023 10:00-0400 Heart rate 53 /min [facility] 04-29-2023 10:00-0400 Mean blood pressure 89 mm[Hg] [facility] 04-29-2023 10:00-0400 Respiratory rate 18 /min [facility] 04-29-2023 10:00-0400 SaO2% (BldA) [Mass fraction] 96 % [facility] 04-29-2023 10:00-0400 Systolic blood pressure 122 mm[Hg] [facility] Encounters Encounter Date Encounter Type Care Provider Facility Start: 05-21-2024 End: 05-21-2024 ambulatory HUMPHREY HUFFMAN Facility:[facility] Start: 04-12-2024 End: 04-12-2024 ambulatory Willian Barrios Facility:[facility] Start: 04-12-2024 End: 04-12-2024 Patient encounter procedure Willian Barrios [facility] Start: 03-29-2024 End: 03-29-2024 ambulatory Willian Barrios Facility:[facility] Start: 03-15-2024 End: 03-15-2024 ambulatory Mhd Yaser Al-Marrawi Facility:[facility] Start: 03-15-2024 End: 03-15-2024 Patient encounter procedure Mhd Yaser Al-Marrawi [facility] Start: 03-09-2024 End: 03-09-2024 ambulatory Mhd Yaser Al-Marrawi Facility:[facility] Start: 03-09-2024 End: 03-09-2024 Patient encounter procedure Mhd Yaser Al-Marrawi [facility] Start: 03-02-2024 End: 03-02-2024 ambulatory Cabrera Talal Sarmini Facility:[facility] Start: 03-02-2024 End: 03-02-2024 Patient encounter procedure Cabrera Talal Sarmini [facility] Start: 02-06-2024 End: 02-06-2024 ambulatory Cabrera Talal Sarmini Facility:[facility] Start: 02-06-2024 End: 02-06-2024 Patient encounter procedure Cabrera Talal Sarmini [facility] Start: 01-02-2024 End: 01-02-2024 ambulatory 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 Shalini Baumann Facility:[facility] Start: 12-15-2023 End: 12-15-2023 ambulatory Mhd Yaser Al-Marrawi Facility:[facility] Start: 12-15-2023 End: 12-15-2023 Patient encounter procedure Mhd Yaser Al-Marrawi [facility] Start: 12-15-2023 End: 12-15-2023 ambulatory Mhd Yaser Al-Marrawi Facility:[facility] Start: 12-15-2023 End: 12-15-2023 Patient encounter procedure Mhd Yaser Al-Marrawi [facility] Start: 10-01-2023 End: 10-01-2023 ambulatory Ashlie Victoria [place] Facility:[facility] Start: 10-01-2023 End: 10-01-2023 Patient encounter procedure Ashlie Victoria [place] [facility] Start: 09-29-2023 End: 09-29-2023 ambulatory Willian Barrios Facility:[facility] Start: 09-24-2023 End: 09-24-2023 ambulatory Willian Barrios Facility:[facility] Start: 09-17-2023 End: 09-17-2023 ambulatory Willian Barrios Facility:[facility] Start: 09-16-2023 End: 09-16-2023 ambulatory Willian Barrios Facility:[facility] Start: 09-15-2023 End: 09-15-2023 ambulatory Mhd Laney Amin Facility:[facility] Start: 09-15-2023 End: 09-15-2023 Patient encounter procedure Mhd Laney Wilson-Lars [facility] Start: 08-29-2023 End: 08-29-2023 ambulatory Willian Barrios Facility: [facility] Start: 07-31-2023 End: 07-31-2023 ambulatory Ashlie Victoria [place] Facility:[facility] Start: 07-31-2023 End: 07-31-2023 Patient encounter procedure Ashlie Victoria [place] [facility] Start: 07-30-2023 End: 07-30-2023 ambulatory Willian Barrios Facility:[facility] Start: 07-28-2023 End: 08-25-2023 ambulatory Willian Barrios Facility:[id number] Start: 07-24-2023 End: 07-25-2023 ambulatory Lucas PughSyed Bates Facility:[facility] Start: 07-22-2023 End: 07-22-2023 ambulatory Mhd Yaser Al-Marrawi Facility:[facility] Start: 06-30-2023 End: 06-30-2023 Lab Drop off Willian SiegelSyed Denis [facility] Start: 06-30-2023 End: 06-30-2023 ambulatory Willian Barrios Facility:[facility] Start: 06-24-2023 End: 06-24-2023 ambulatory Mhd Yaser Al-Marrawi Facility:[facility] Start: 06-24-2023 End: 06-24-2023 Patient encounter procedure Mhd Yaser Al-Marrawi [facility] Start: 06-17-2023 End: 06-17-2023 ambulatory Mhd Yaser Al-Marrawi Facility:[facility] Start: 06-17-2023 End: 06-17-2023 Patient encounter procedure Mhd Yaser Al-Marrawi [facility] Start: 06-12-2023 End: 06-12-2023 ambulatory Mhd Yaser Al-Marrawi Facility:[facility] Start: 06-12-2023 End: 06-12-2023 Patient encounter procedure Mhd Yaser Al-Marrawi [facility] Start: 06-04-2023 End: 06-04-2023 ambulatory Cabrera Talal Sarmini Facility:[facility] Start: 06-04-2023 End: 06-04-2023 Patient encounter procedure Cabrera Talal Sarmini [facility] Start: 05-29-2023 End: 05-29-2023 ambulatory [facility] Start: 05-27-2023 End: 05-27-2023 ambulatory Mhd Yaser Al-Marrawi Facility:[facility] Start: 05-27-2023 End: 05-27-2023 Patient encounter procedure Mhd Yaser Al-Marrawi [facility] Start: 05-13-2023 End: 05-13-2023 ambulatory Mhd Yaser Al-Marrawi Facility:[facility] Start: 05-13-2023 End: 05-13-2023 Patient encounter procedure Mhd Yaser Al-Marrawi [facility] Start: 05-13-2023 End: 05-13-2023 ambulatory Mhd Yaser Al-Marrawi Facility:[facility] Start: 05-13-2023 End: 05-13-2023 Patient encounter procedure Mhd Yaser Al-Marrawi [facility] Start: 04-29-2023 End: 04-29-2023 ambulatory Mhd Yaser Al-Marrawi Facility:[facility] Start: 04-29-2023 End: 04-29-2023 ambulatory Mhd Yaser Al-Marrawi Facility:[facility] Start: 04-29-2023 End: 04-29-2023 Patient encounter procedure Ortiz Alexander [facility] Start: 03-17-2023 End: 03-17-2023 Lab Drop off Willian Barrios [facility] Start: 09-18-2022 End: 09-19-[address] FERNY [...] End: 10-27-2018 Patient encounter procedure DEFAULT PHYSICIAN Facility:[facility] Procedures Date Procedure Procedure Detail Performing Clinician Start: 02-06-2024 Colonoscopy Deborah alicia Start: 07-24-2023 Colonoscopy Ashlie alvarado Start: 06-24-2023 Bone marrow sampling Lenny Amin Comment on above: ct section Willian Barrios Comment on above: X1 Decompression of med jewels nerve Willian Barrios Total abdominal hysterectomy with bilateral salpingo-oophorectomy Willian Barrios Plan of Treatment Date Care Activity Detail Author Start: 08-31-2024 ambulatory Facility:[facility] Immunizations Immunization Date Immunization Notes Care Provider Rickey guzmán 12-19-2023 SARS-CoV-2 mRNA (tozinameran 5y-11y) vaccine Deborah Rashid [facility] Comment on above: Result Comment: pfiz er 07-28-2023 influenza virus vaccine, unspecified formulation Ashlie Mead [facility] 07-28-2023 SARS-CoV-2 mRNA (tozinameran 5y-11y) vaccine Mariah Amin [facility] Comment on above: Result Comment: Covi d 19 pfizer 07-24-2022 influenza virus vaccine, unspecified formulation Willian Barrios [facility] 07-24-2022 SARS-CoV-2 (COVID-19 ) [id number] Willian Barrios [facility] 01-15-2022 SARS-CoV-2 mRNA (dfiwuskazcm-zyzh-oqviv se) vaccine Willian Barrios [facility] 07-24-2021 influenza virus vaccine, unspecified formulation Willian Barrios [facility] 07-10-2021 SARS-CoV-2 (COVID-19 ) mRNA BNT-162b2 vax Willian Barrios [facility] 01-02-2021 SARS-CoV-2 (COVID-19 ) mRNA BNT-162b2 vax Willian Barrios [facility] 12-11-2020 SARS-CoV-2 (COVID-19 ) mRNA BNT-162b2 vax Willian Barrios [facility] 06-21-2020 influenza virus vaccine, unspecified formulation Willian Barrios [facility] 06-21-2020 pneumococcal polysaccharide vaccine, 23 valent Willian Barrios [facility] 07-13-2019 influenza virus vaccine, unspecified formulation Willian Barrios [facility] 07-10-2018 influenza virus vaccine, unspecified formulation Willian Barrios [facility] 11-20-2016 pneumococcal polysaccharide vaccine, 23 valent Willian Barrios [facility] NEGATED: Highlighted row has not occurred!06-30-2023 influenza virus vaccine, unspecified formulation Willian Barrios [facility] Payers Date Payer Category Payer Private Health Insurance 101 [id number] 1961 Medicare [id number] 1961 Unknown [id number] 1955 Unknown [id number] 2.16.8 40.1.329775.3.579.2.647 1953 Unknown [id number] 2.16.84 0.1.124346.3.579.2.593 1953 Unknown [id number] 2.16.84 0.1.535756.3.579.2.593 1953 Unknown [id number] 2.16.84 0.1.627485.3.579.2.593 1953 Unknown [id number] 2.16.84 0.1.461652.3.579.2.593 1953 Unknown [id number] 2.16.84 0.1.479880.3.579.2.593 1953 Unknown [id number] 2.16.84 0.1.847634.3.579.2.593 1953 Unknown [id number] 2.16.84 0.1.571453.3.579.2.593 1953 Unknown [id number] 2.16.8 40.1.272374.3.579.2.727 1953 Unknown [id number] 2.16.8 40.1.197888.3.579.2.727 1953 Unknown [id number] 2.16.8 40.1.225238.3.579.2.727 1953 Unknown [id number] 2.16.8 40.1.068645.3.579.2.727 1953 Unknown [id number] 2.16.8 40.1.138295.3.579.2.727 1953 Unknown [id number] 2.16.8 40.1.274550.3.579.2.727 1953 Unknown [id number] 2.16.8 40.1.095403.3.579.2.727 1953 Unknown [id number] 2.16.8 40.1.140629.3.579.2. 1953 Unknown [id number] 2.16.8 40.1.906616.3.579.2. 1953 Unknown [id number] 2.16.8 40.1.575079.3.579.2. 1953 Unknown [id number] 2.16.8 40.1.120112.3.579.2. 1953 Unknown [id number] 2.16.8 40.1.058269.3.579.2 1953 Unknown [id number] 2.16.8 40.1.460261.3.579.2. 1953 Unknown [id number] 2.16.8 40.1.526005.3.579.2 1953 Unknown [id number] 2.16.8 40.1.814804.3.579.2 1953 Unknown [id number] 2.16.8 40.1.233520.3.579.2. 1953 Unknown [id number] 2.16.8 40.1.102649.3.579.2. 1953 Unknown [id number] 2.16.8 40.1.620333.3.579.2. 1953 Unknown [id number] 2.16.8 40.1.825115.3.579.2. 1953 Unknown [id number] 2.16.8 40.1.186293.3.579.2. 1953 Unknown [id number] 2.16.8 40.1.873280.3.579.2.72 1953 Unknown [id number] 2.16.8 40.1.612452.3.579.2.727 1953 Unknown [id number] 2.16.8 40.1.467213.3.579.2.727 1953 Unknown [id number] 2.16.8 40.1.046806.3.579.2.727 1953 Unknown [id number] 2.16.8 40.1.492331.3.579.2.727 1953 Unknown [id number] 2.16.8 40.1.006466.3.579.2.727 1953 Unknown [id number] 2.16.8 40.1.693406.3.579.2.727 1953 Unknown [id number] 2.16.8 40.1.363980.3.579.2.727 1953 Unknown [id number] 2.16.8 40.1.974322.3.579.2.727 1953 Unknown [id number] 2.16.8 40.1.177958.3.579.2.727 1953 Unknown [id number] 2.16.8 40.1.107785.3.579.2.727 1953 Unknown [id number] 2.16.8 40.1.452022.3.579.2.727 1953 Unknown [id number] 2.16.8 40.1.024340.3.579.2.727 1953 Unknown [id number] 2.16.8 40.1.007384.3.579.2.727 1953 Unknown [id number] 2.16.8 40.1.374502.3.579.2.727 Unknown Social History Date Type Detail Facility Start: 03-17-2023 End: 03-29-2024 Tobacco smoking status Never smoked tobacco (finding) [facility] Comment on above: denies Tobacco smoking status Never Michel [facility] Comment on above: denies Sex Assigned At Female [facility] Medical Equipment Procedure Code Equipment Code Equipment Origin al Text Equipment Identifier Dates Misc DME Prescription, See Instructions, 100 strip(s), 0, one touch ultra test strips Test sugars once a day Dx E11.9, [facility]/pharmacy #[id number], Supply Start: 02-06-2023 Mis DME Prescription, See Instructions, 100 strip(s), 0, one touch ultra test strips Test sugars once a day Dx E11.9, [id number], Supply Start: 02-06-2023 [facility] [place], See Instructions, 100 strip(s), 0, one touch ultra test strips Test sugars once a day Dx E11.9, [id number], Supply, 150, cm, 04/29/23 10:06:00 EDT, Height/Length Dosing, 112.3, kg, 04/29/23 10:06:00 EDT, Weight Dosing Start: 05-06-2023 [facility] Prescription, See Instructions, 100 strip(s), 0, one touch ultra test strips Test sugars once a day Dx E11.9, [id number], Supply, 150, cm, 04/29/23 10:06:00 EDT, Height/Length Dosing, 112.3, kg, 04/29/23 10:06:00 EDT, Weight Dosing Start: 05-06-2023 [facility] Prescription, See Instructions, 100 strip(s), 0, one touch ultra test strips Test sugars once a day Dx E11.9, [id number], Supply, 150, cm, 04/29/23 10:06:00 EDT, Height/Length Dosing, 112.3, kg, 04/29/23 10:06:00 EDT, Weight Dosing Start: 05-06-2023 [facility] Prescription, See Instructions, 100 strip(s), 0, one touch ultra test strips Test sugars once a day Dx E11.9, [id number], Supply, 150, cm, 04/29/23 10:06:00 EDT, Height/Length Dosing, 112.3, kg, 04/29/23 10:06:00 EDT, Weight Dosing Start: 05-06-2023 [facility] Prescription, See Instructions, 100 strip(s), 0, one touch ultra test strips Test sugars once a day Dx E11.9, [id number], Supply, 150, cm, 04/29/23 10:06:00 EDT, Height/Length Dosing, 112.3, kg, 04/29/23 10:06:00 EDT, Weight Dosing Start: 05-06-2023 [facility] Prescription, See Instructions, 100 strip(s), 0, one touch ultra test strips Test sugars once a day Dx E11.9, [id number], Supply, 150, cm, 04/29/23 10:06:00 EDT, Height/Length Dosing, 112.3, kg, 04/29/23 10:06:00 EDT, Weight Dosing Start: 05-06-2023 [facility] Prescription, See Instructions, 100 strip(s), 0, one touch ultra test strips Test sugars once a day Dx E11.9, [id number], Supply, 150, cm, 04/29/23 10:06:00 EDT, Height/Length Dosing, 112.3, kg, 04/29/23 10:06:00 EDT, Weight Dosing Start: 05-06-2023 [facility] Prescription, See Instructions, 100 strip(s), 0, one touch ultra test strips Test sugars once a day Dx E11.9, [id number], Supply, 150, cm, 04/29/23 10:06:00 EDT, Height/Length Dosing, 112.3, kg, 04/29/23 10:06:00 EDT, Weight Dosing Start: 05-06-2023 Unknown Unknown 07/24/23 Non Biological Unknown FDA Start: 07-24-2023 [facility] Prescription, See Instructions, 100 strip(s), 1, [...] 07/31/23 9:52:00 EDT, Weight Dosing Start: 08-21-2023 [facility] Prescription, See Instructions, 100 strip(s), 1, [...] day to obtain blood sugars Dx: E11.9, [facility]/pharmacy #[id number], Supply, 150.8, cm, 07/31/23 9:52:00 EDT, Height/Length Dosing, 112.7, kg, 07/31/23 9:52:00 EDT, Weight Dosing Start: 08-21-2023 [facility] Prescription, See Instructions, 100 strip(s), 1, one touch test strips. Use to test blood sugars once a day Dx E11.9, [facility]/pharmacy #[id number], Supply, 150.8, cm, 07/31/23 9:52:00 EDT, [...] 07/31/23 9:52:00 EDT, Weight Dosing Start: 08-21-2023 [facility] Prescription, See Instructions, 100 strip(s), 1, [...] 07/31/23 9:52:00 EDT, Weight Dosing Start: 08-21-2023 [facility] Prescription, See Instructions, 100 strip(s), 1, [...] 07/31/23 9:52:00 EDT, Weight Dosing Start: 08-21-2023 [facility] Prescription, See Instructions, 100 strip(s), 1, one touch test strips. Use to test blood sugars once a day Dx E11.9, [id number], Supply, 150.8, cm, 07/31/23 9:52:00 EDT, Height/Length Dosing, 112.7, kg, 07/31/23 9:52:00 EDT, Weight Dosing Start: 08-21-2023 Unknown Unknown 07/24/23 Non Biological Unknown FDA Start: 07-24-2023 Lancets, See Instructions, 100 EA, 4, To be used once a day to obtain blood sugars Dx: E11.9, [id number], Supply, 152, cm, 02/06/24 9:13:00 EDT, Height/Length Dosing, 111.6, kg, 02/06/24 9:13:00 EDT, Weight Dosing Start: 03-01-2024 [facility], See Instructions, 100 strip(s), 1, one touch test strips. Use to test blood sugars once a day Dx E11.9, [id number], Supply, 150.8, cm, 07/31/23 9:52:00 EDT, Height/Length Dosing, 112.7, kg, 07/31/23 9:52:00 EDT, Weight Dosing Start: 08-21-2023 Unknown Unknown 07/24/23 Non Biological Unknown FDA Start: 07-24-2023 Lancets, See Instructions, 100 EA, 4, To be used once a day to obtain blood sugars Dx: E11.9, [id number], Supply, 152, cm, 02/06/24 9:13:00 EDT, Height/Length Dosing, 111.6, kg, 02/06/24 9:13:00 EDT, Weight Dosing Start: 03-01-2024 [facility], See Instructions, 100 strip(s), 1, one touch test strips. Use to test blood sugars once a day Dx E11.9, [id number], Supply, 150.8, cm, 07/31/23 9:52:00 EDT, Height/Length Dosing, 112.7, kg, 07/31/23 9:52:00 EDT, Weight Dosing Start: 08-21-2023 Unknown Unknown 07/24/23 Non Biological Unknown FDA Start: 07-24-2023 Lancets, See Instructions, 100 EA, 4, To be used once a day to obtain blood sugars Dx: E11.9, [id number], Supply, 152, cm, 02/06/24 9:13:00 EDT, Height/Length Dosing, 111.6, kg, 02/06/24 9:13:00 EDT, Weight Dosing Start: 03-01-2024 [facility], See Instructions, 100 strip(s), 1, one touch test strips. Use to test blood sugars once a day Dx E11.9, [id number], Supply, 150.8, cm, 07/31/23 9:52:00 EDT, Height/Length Dosing, 112.7, kg, 07/31/23 9:52:00 EDT, Weight Dosing Start: 08-21-2023 Unknown Unknown 07/24/23 Non Biological Unknown FDA Start: 07-24-2023 Lancets, See Instructions, 100 EA, 4, To be used once a day to obtain blood sugars Dx: E11.9, [id number], Supply, 152, cm, 02/06/24 9:13:00 EDT, Height/Length Dosing, 111.6, kg, 02/06/24 9:13:00 EDT, Weight Dosing Start: 03-01-2024 [facility], See Instructions, 100 strip(s), 1, one touch test strips. Use to test blood sugars once a day Dx E11.9, [id number], Supply, 150.8, cm, 07/31/23 9:52:00 EDT, Height/Length Dosing, 112.7, kg, 07/31/23 9:52:00 EDT, Weight Dosing Start: 08-21-2023 Functional Status Date Assessment Result Facility 03-02-2024 Functional Status N/A [facility] 02-06-2024 Functional Status N/A [facility] 10-01-2023 Functional Status N/A [facility] 07-31-2023 Functional Status N/A [facility] 06-24-2023 Functional Status N/A [facility] 06-04-2023 Functional Status N/A [facility] Clinical Notes 04-18-2023 to 05-21-2024 Note Date & Type Note Facility 05-21-2024 Note Patient Education Pulmonary Medicine Chronic Bronchitis, Adult Chronic bronchitis is inflammation inside of the main airways (bronchi) that come off the windpipe (trachea) in the lungs. The swelling causes the airways to narrow and make more mucus than normal. This can make it hard to breathe and may cause coughing or noisy breathing (wheezing). This condition is a type of chronic obstructive pulmonary disease (COPD). Chronic bronchitis is often associated with other chronic respiratory conditions, such as emphysema, asthma, bronchiectasis, or cystic fibrosis. Chronic bronchitis is a long-term (chronic) condition. It is defined as a chronic cough with mucus (sputum) production: ? For at least 3 months of the year. ? For 2 years in a row. People with chronic bronchitis are more likely to get colds and other infections in the nose, throat, or airways. What are the causes? This condition is most often caused by: ? A history of smoking. ? Exposure to secondhand smoke or a smoky area for a long period of time. ? Frequent lung infections. ? Long-term exposure to certain fumes or chemicals that irritate the lungs. What are the signs or symptoms? Symptoms of chronic bronchitis may include: ? A cough that brings up mucus (productive cough). ? A whistling sound when you breathe (wheezing). ? Shortness of breath. ? Chest tightness or soreness. ? Fever or chills. ? Colds or respiratory infections that go away and return. How is this diagnosed? Your health care provider may diagnose this condition based on your signs and symptoms, especially if you have a cough that lasts a long time or keeps coming back. This condition may be diagnosed based on: ? Your symptoms and medical history. ? A physical exam, including listening to your lungs. ? Tests, such as: ? Testing a sputum sample. ? Blood tests. ? A chest X-ray. ? Tests of lung (pulmonary) function. How is this treated? There is no cure for chronic bronchitis. Treatment may help control your symptoms. This includes: ? Drinking fluids. This may help thin your mucus so it is easier to cough up. ? Mucus-clearing techniques. Your health care provider will show you which techniques are best for you. ? Medicines such as: ? Inhaled medicine (inhaler) to improve air flow in and out of your lungs. ? Antibiotics to treat or prevent bacterial lung infections. ? Mucus-thinning medicines. ? Pulmonary rehabilitation. This is a program that helps you learn how to manage your breathing problem. The program may include exercise, education, counseling, treatment, and support. ? Using oxygen therapy, if your blood oxygen level is very low. Follow these instructions at home: Medicines ? Take xheb-onb-uaelnom and prescription medicines only as told by your health care provider. ? If you were prescribed an antibiotic medicine, take it as told by your health care provider. Do not stop taking the antibiotic even if you start to feel better. Lifestyle ? Do not use any products that contain nicotine or tobacco. These products include cigarettes, chewing tobacco, and vaping devices, such as e-cigarettes. If you need help quitting, ask your health care provider. ? Stay away from other people's smoke (secondhand smoke) and any irritants that make you cough more, such as chemical fumes. ? Eat a healthy diet and get regular exercise. Talk with your health care provider about what activities are safe for you. ? Return to normal activities as told by your health care provider. Ask your health care provider what activities are safe for you. Preventing infections ? Stay up to date on all immunizations, including the pneumonia and flu vaccines. ? Wash your hands often with soap and water for at least 20 seconds. If soap and water are not available, use hand irrigation equipment remover. ? Avoid contact with people who have symptoms of a cold or the flu. ? Keep your environment free from any known allergens such as dust, mold, pets, and pollen. General instructions ? Get plenty of rest. ? Drink enough fluids to keep your urine pale yellow. ? Use oxygen therapy at home as directed. ? Follow instructions from your health care provider about how to use oxygen safely and take steps to prevent fire. ? Do not smoke while using oxygen or allow others to smoke in your home. ? Keep all follow-up visits. This is important. Contact a health care provider if: ? Your shortness of breath or coughing gets worse even when you take medicine. ? Your mucus gets thicker or changes color. ? You are not able to cough up your mucus. ? You have a fever. Get help right away if: ? You cough up blood. ? You have trouble breathing. ? You have chest pain. ? You feel dizzy or confused. These symptoms may represent a serious problem that is an emergency. Do not wait to see if the symptoms will go away. Get medical help right away. Call yo (more content not included)... [facility] 03-15-2024 Hospital Discharg e instructions Patient Education 03/15/2024 10:23:55 Preventing Iron Deficiency Anemia, Adult Preventing Iron Deficiency Anemia, Adult Iron deficiency is having a lack of iron in the body. Iron is an important mineral that your body needs to build healthy red blood cells. Iron deficiency anemia is a condition in which the concentration of red blood cells or hemoglobin in the blood is below normal because of too little iron. Hemoglobin is a substance in red blood cells that carries oxygen to the body's tissues. You may develop iron deficiency anemia due to: Blood loss from an injury or condition such as Crohn's disease. Your body being unable to properly absorb iron and use it to create red blood cells. Lack of iron in your diet. You can prevent iron deficiency anemia by making certain changes to your diet and lifestyle. How can this condition affect me? If not treated, iron deficiency anemia can lead to serious health complications, including: Long-term (chronic) tiredness or fatigue. Shortness of breath with activity. Abnormal heart rhythms. Heart failure. Uncomfortable sensations and an overwhelming urge to move your legs (restless legs syndrome). A weakened disease-fighting system (immune system). What can increase my risk? It is important to know whether you are at risk for iron deficiency anemia. Ask your health care provider if you need a blood test to measure your iron or red blood cells. You may have a higher risk for iron deficiency anemia if: You are female and one of the following applies: ?You have heavy menstrual periods. ?You are . ?You are . You have had bypass surgery for weight loss. You have a digestive disorder such as Crohn's disease, irritable bowel syndrome, or celiac disease. You regularly take antacids or acid-lowering medicines. You follow a vegetarian or vegan diet. What actions can I take to lower my risk? Nutrition Eat foods that are high in iron, such as: ?Red meat, especially liver and beef. ?Poultry. ?Seafood. ?Dried fruit. ?Prune juice. ?Nuts. ?Pumpkin seeds. ?Beans. ?Leafy green vegetables. ?Molasses. ?Tofu. Look for foods that have added iron (are fortified). Many cereals and breads are iron fortified. Eat foods that contain vitamin C along with iron-rich foods, preferably in the same meal. Vitamin C increases your body's ability to absorb iron. Foods high in vitamin C include: ?[place] fruits, such as checo, oranges, and grapefruits. ?Berries. ?Kent peppers. ?Tomatoes. ?Broccoli. Do not follow a diet that is very low in fat or very high in fiber. Do not drink very large amounts of milk, tea, or coffee. General tips Limit your use of antacids or acid-lowering medicines. Work with your health care provider to manage conditions that can cause iron deficiency. Ask your health care provider if a multivitamin or iron supplement is right for you. Take llvg-pgy-wljuzxr and prescription medicines only as told by your health care provider. Keep all follow-up visits. Where to find more information Learn more about preventing iron deficiency from: National Heart, Lung, and Blood [place]: www.nhlbi.nih.gov [employer] [place] [employer]: www.hematology.org Contact a health care provider if: You develop symptoms of iron deficiency, including: ?Fatigue. ?Headache. ?Pale skin, lips, and nail beds. ?Poor appetite. ?Weakness. Summary Iron deficiency anemia is a condition in which the concentration of red blood cells or hemoglobin in the blood is below normal because of too little iron. You can help prevent iron deficiency anemia by eating more iron-rich foods, such as red meat, poultry, or tofu. Look for foods that have added iron (are fortified), such as cereals. Eat foods that contain vitamin C along with iron-rich foods, preferably in the same meal. Vitamin C increases the body's ability to absorb iron. Ask your health care provider about your risk for iron deficiency anemia and whether a multivitamin or iron supplement may be right for you. This information is not intended to replace advice given to you by your health care provider. Make sure you discuss any questions you have with your health care provider. Document Revised: 11/06/2022 Document Reviewed: 11/06/2022 [employer] Patient Education 2022 [employer] 03/15/2024 10:23:50 Iron-Rich Diet Iron-Rich Diet Iron is a mineral that helps your body produce hemoglobin. Hemoglobin is a protein in red blood cells that carries oxygen to your body's tissues. Eating too little iron may cause you to feel weak and tired, and it can increase your risk of infection. Iron is naturally found in many foods, and many foods have iron added to them (are iron-fortified). You may need to follow an iron-rich diet if you do not have enough iron in your body due to certain medical conditions. The amount of iron that you need each day depends on your age, your sex, and any medical conditions you have. Follow instructions from your health care provider or a dietitian about how much iron you should eat each day. What are tips for following this plan? Reading food labels Check food labels to see how many milligrams (mg) of iron are in each serving. Cooking Cook foods in pots and pans that are made from iron. Take these steps to make it easier for your body to absorb iron from certain foods: ?Soak beans overnight before cooking. ?Soak whole grains overnight and drain them before using. ?Ferment flours before baking, such as by using yeast in bread dough. Meal planning When you eat foods that contain iron, you should eat them with foods that are high in vitamin C. These include oranges, peppers, tomatoes, potatoes, and mangoes. Vitamin C helps your body absorb iron. Certain foods and drinks prevent your body from absorbing iron properly. Avoid eating these foods in the same meal as iron-rich foods or with iron supplements. These foods include: ?Coffee, black tea, and red wine. ?Milk, dairy products, and foods that are high in calcium. ?Beans and soybeans. ?Whole grains. General information Take iron supplements only as told by your health care provider. An overdose of iron can be life-threatening. If you were prescribed iron supplements, take them with orange juice or a vitamin C supplement. When you eat iron-fortified foods or take an iron supplement, you should also eat foods that naturally contain iron, such as meat, poultry, and fish. Eating naturally iron-rich foods helps your body absorb the iron that is added to other foods or contained in a supplement. Iron from animal sources is better absorbed than iron from plant sources. What foods should I eat? Fruits Prunes. Raisins. Eat fruits high in vitamin C, such as oranges, grapefruits, and strawberries, with iron-rich foods. Vegetables Spinach (cooked). Green peas. Broccoli. Fermented vegetables. Eat vegetables high in vitamin C, such as leafy greens, potatoes, kent peppers, and tomatoes, with iron-rich foods. Grains Iron-fortified breakfast cereal. Iron-fortified whole-wheat bread. Enriched rice. Sprouted grains. Meats and other proteins Beef liver. Beef. [place]. Chicken. Oysters. Shrimp. Tuna. Sardines. Chickpeas. Nuts. Tofu. Pumpkin seeds. Beverages Tomato juice. Fresh orange juice. Prune juice. Hibiscus tea. Iron-fortified instant breakfast shakes. Sweets and desserts Blackstrap molasses. Seasonings and condiments Tahini. Fermented soy sauce. Other foods Wheat germ. The items listed above may not be a complete list of recommended foods and beverages. Contact a dietitian for more information. What foods should I limit? These are foods that should be limited while eating iron-rich foods as they can reduce the absorption of iron in your body. Grains Whole grains. Bran cereal. Bran flour. Meats and other proteins Soybeans. Products made from soy protein. Black beans. Lentils. Mung beans. Split peas. Dairy Milk. Cream. Cheese. Yogurt. Cottage cheese. Beverages Coffee. Black tea. Red wine. Sweets and desserts [place]. Chocolate. Ice cream. Seasonings and condiments Basil. Oregano. Large amounts of parsley. The items listed above may not be a complete list of foods and beverages you should limit. Contact a dietitian for more information. Summary Iron is a mineral that helps your body produce hemoglobin. Hemoglobin is a protein in red blood cells that carries oxygen to your body's tissues. Iron is naturally found in many foods, and many foods have iron added to them (are iron-fortified). When you eat foods that contain iron, you should eat them with foods that are high in vitamin C. Vitamin C helps your body absorb iron. Certain foods and drinks prevent your body from absorbing iron properly, such as whole grains and dairy products. You should avoid eating these foods in the same meal as iron-rich foods or with iron supplements. This information is not intended to replace advice given to you by your health care provider. Make sure you discuss any questions you have with your health care provider. Document Revised: 09/10/2021 Document Reviewed: 09/10/2021 [employer] Patient Education 2022 [employer]. Follow Up Care 12/15/2023 10:48:25 With:Eloisa PATTEN, Mariah Davison, MED, ONC Address: When: Unknown Comments:Continue observation only for the low plt and low WBC for now. Call if bleeding or infections, fevers.Continue ferrous sulfate cgrh-uwd-tezagvz 325 mg once daily.Return in 4 months with labs prior including CBC with differential CMP, B12, folate and iron studies. [facility] 02-09-2024 Note [id number] [facility] 02-06-2024 Evaluation + Plan note Extrac enid from: Title:ANES Post-operative Note - General Author: Jorge Luis Fang Jr., DO Date:02/06/24 Plan Transfer/Discharge: Transfer/Discharge Discharge when meets criteria ( From PACU to Ambulatory Surgery Unit, and To home ). Extracted from: Title:ANES Pre-operative Note - Endo Author:Jorge Luis Rodas Jr., DO Date:02/06/24 Plan [place] [employer]hesi[employer] (ASA) physical status classification: Class III. Anesthetic Preoperative Plan: Anesthesia General, and -TIVA. Future Appointments Appointment Date:03/15/2024 10:00:00 AM Scheduled Provider:Eloisa PATTEN, Mariah Davison Location:.ONCOLOGY Appointment Type:ONC Office Visit 30 (FT) Appointment Date:03/29/2024 10:30:00 AM Scheduled Provider:Willian Barrios MD Location:[facility] Appointment Type: Open Appointment Date:08/31/2024 11:00:00 AM Scheduled Provider: Location:[facility] Appointment Type: Medicare Wellness Subsequent Future Scheduled Tests Laboratory* CBC w/ Auto Diff 03/08/24 * CBC w/ Auto Diff 10/01/23 * CBC w/ Auto Diff 07/31/23 * Comprehensive Metabolic Panel 03/08/24 * Ferritin 03/08/24 * Iron Level 03/08/24 * Iron Percent Saturation 03/08/24 * Transferrin 03/08/24 Radiology* MA Mamm Screen w/CAD if perf and 3D Michael 03/17/23 [facility]04-26-2024 Hospital Discharge instructions Patient Education 02/06/2024 11:09:28 Colonoscopy, Care After Surgery Salam (CUSTOM) Colonoscopy Care After Surgery Please read the instructions outlined below and refer to this sheet in the next few weeks. These discharge instructions provide you with general information on [facility] Your doctor may also give you specific instructions. While your treatment has been planned according to the most current medical practices available, unavoidable complications occasionally occur. If you have any problems or questions after discharge, please call your doctor. ACTIVITY You may resume your regular activity, but move at a slower pace for the next 24 hours. Take frequent rest periods for the next 24 hours. Walking will help get rid of the air and reduce the bloated feeling in your abdomen (belly). No driving for 24 hours (because of the anesthesia (medicine) used during the test). You may shower. Do not sign any important legal documents or operate any machinery for 24 hours (because of the anesthesia used during the test). NUTRITION Drink plenty of fluids. You may resume your normal diet as instructed by your doctor. Begin with a light meal and progress to your normal diet. Heavy or fried foods are harder to digestand may make you feel nauseated (sick to your stomach). Avoid alcoholic beverages for 24 hours or as instructed. MEDICATIONS You may resume your normal medications unless your doctor tells you otherwise. WHAT YOU CAN EXPECT TODAY Some feelings of bloating in the abdomen. Passage of more gas than usual. Spotting of blood in your stool or on the toilet paper. FOLLOW-UP Your doctor will discuss the results of your test with you. SEEK IMMEDIATE MEDICAL ATTENTION IF: There is more than a spotting of blood in your stool. There is abdominal distention (your abdomen is swollen). There is vomiting. You have a temperature over 101.5 F. There is abdominal pain or discomfort that is severe or gets worse throughout the day. 02/06/2024 11:09:27 Colon Polyps Colon Polyps Colon polyps are tissue growths inside the colon, which is part of the large intestine. They are one of the types of polyps that can grow in the body. A polyp may be a round bump or a mushroom-shapedgrowth. You could have one polyp or more [...] smoking cigarettes, drinking too much alcohol, not gettingenough exercise, and eating a diet that is [...] contain nicotine or tobacco, such as cigarettes, e- cigarettes, and chewing tobacco. If you need help [...] hard liquor (44 mL). General instructions Take fitg-kkn-ufqbcwp and prescription medicines only as told by [...] provider. Document Revised: 01/17/2021 Document Reviewed: 01/17/2021 [employer] Patient Education 2022 [employer]. Follow Up Care 10/01/2023 13:21:09 With:Deborah Rashid Address: [address], [address] [address] [phone] Business (1) When:1 to 2 weeks Comments:Call for any problems. [facility]02-08-2024 Hospital Discharge instructions Follow Up Care 11/20/2023 15:36:43 With:Eloisa PATTEN, Mariah Davison, MED, ONC Address: When: Unknown Comments:Labs today including CBC with differential, CMP, iron study B12 folate and copper level.Start ferrous sulfate cjaq-fhh-ljrzyse 325 mg once daily.Return in 3 months with labs prior including CBC with differential CMP and iron studies. [facility]12-20-2023 Hospital Discharge instructions Patient Education 10/01/2023 12:42:50 Colon Polyps Colon Polyps Colon polyps are tissue growths inside the colon, which is part of the large intestine. They are one of the types of polyps that can grow in the body. A polyp may be a round bump or a mushroom-shapedgrowth. You could have one polyp or more [...] smoking cigarettes, drinking too much alcohol, not gettingenough exercise, and eating a diet that is [...] contain nicotine or tobacco, such as cigarettes, e- cigarettes, and chewing tobacco. If you need help [...] hard liquor (44 mL). General instructions Take hskp-bdr-vnnkjwf and prescription medicines only as told by [...] provider. Document Revised: 01/17/2021 Document Reviewed: 01/17/2021 [employer] Patient Education 2022 [employer]. Follow Up Care 07/31/2023 10:11:05 With:Ashlie Mead CNP Address: When:Within 4 Month(s) [facility] 10-19-2023 Hospital Discharge instructions Patient Education 07/31/2023 10:00:29 Anemia Anemia Anemia is a condition in which there is not enough red blood cells or hemoglobin in the blood. Hemoglobin is a substance in red blood cells that carries oxygen. When you do not have enough red blood cells or hemoglobin (are anemic), your body cannot get enoughoxygen and your organs may not work properly. [...] spleen. Follow these instructions at home: Take nvtx-qqn-vvpsfov and prescription medicines only as told by [...] provider. Document Revised: 08/13/2022 Document Reviewed: 09/05/2020 [employer] Patient Education 2022 [employer]. Follow Up Care 07/25/2023 08:45:16 With:Ashlie Mead CNP Address: When:1 month [facility] 10-13-2023 Note [id number]:Result Comment: Electronically Signed By: Lucas Bates DO\.br\Date and Time Signed: 07/25/23 08:33 [id number] [facility] SystemComment [facility] above: Result Comment: Electronically Signed By: Lucas Bates DO\.br\Date and Time Signed: 07/24/23 13:28 [id number] Evaluation + Plan note Future Appointments Appointment Date:06/24/2023 09:00:00 AM Scheduled Provider: Location:.[facility] Appointment Type:CT Biopsy (FT) Appointment Date:06/24/2023 09:00:00 AM Scheduled Provider: Location:[facility] Appointment Type:Surgery FT Appointment Date:06/30/2023 11:20:00 AM Scheduled Provider:Willian Barrios MD Location:[facility] Appointment Type: Open Appointment Date:07/10/2023 09:30:00 AM Scheduled Provider: Location:[facility] Appointment Type:Surgery FT Appointment Date:07/22/2023 09:30:00 AM Scheduled Provider: Location:.ONCOLOGY Appointment Type:ONC Office Visit 30 (FT) Appointment Date:09/16/2023 01:00:00 PM Scheduled Provider: Location:[facility] [place] Appointment Type: Medicare Wellness Subsequent Appointment Date:09/16/2023 02:20:00 PM Scheduled Provider:Willian Barrios MD Location:[facility] [place] Appointment Type: Open Future Scheduled Tests Laboratory* CBC w/ Auto Diff 07/22/23 Radiology* CT Bone Marrow Biopsy 06/24/23 * MA Mamm Screen w/CAD if perf and 3D Michael 03/17/23 [facility]08-17-[facility]23 NoteCardiology Clinic Note Subjective Misa Santos is a 68 y.o. [...] in about 1 year (around 05/29/2024). Delmar Cordova APRN-EVAN 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 CBCD on return day with me. [facility]07-18-2023 Hospital Discharge instructions Follow Up Care 04/29/2023 10:41:22 With:Mariah Amin Address: [address] [phone] Business (1) When: Unknown Comments:We will obtain [...] the peripheral blood flow cytometry are normal. [facility]07-07-2023 Hospital Discharge instructions Follow Up Care 04/18/2023 13:20:05 With:Mariah Amin Address: [address] [phone] Business (1) When: Unknown Comments:We will check CBC with differential CMP PNH flow, LDH, peripheral blood flow cytometry, B12 level, folate, iron studies, copper, ILANA, rheumatoid factor, and platelet antibodies.Return to office in 2 weeks for results. [facility] Future App[facility]ments Appointment Date:09/16/2023 01:00:00 PM Scheduled Provider: Location:[facility] Appointment Type: Medicare Wellness Subsequent Appointment Date:09/16/2023 02:20:00 PM Scheduled Provider:Willian Barrios MD Location:[facility] Appointment Type: Open Future Scheduled Tests Radiology* MA Mamm Screen w/CAD if perf and 3D Michael 6/5/23 [facility]ments Appointment Date:05/13/2023 10:00:00 AM Scheduled Provider: Location:.ONCOLOGY Appointment Type:ONC Office Visit 30 (FT) Appointment Date:06/30/2023 11:20:00 AM Scheduled Provider:Willian Barrios MD Location:[facility] [place] Appointment Type:FM Open Appointment Date:09/16/2023 01:00:00 PM Scheduled Provider: Location:[facility] Appointment Type: Medicare Wellness Subsequent Appointment Date:09/16/2023 02:20:00 PM Scheduled Provider:Willian Barrios MD Location:[facility] [place] Appointment Type: Open Future Scheduled Tests Radiology* MA Mamm Screen w/CAD if perf and 3D Michael 03/17/23 [facility]ments Appointment Date:06/17/2023 10:30:00 AM Scheduled Provider: Location:.ONCOLOGY Appointment Type:ONC Office Visit 30 (FT) Appointment Date:06/30/2023 11:20:00 AM Scheduled Provider:Willian Barrios MD Location:[facility] [place] Appointment Type: Open Appointment Date:09/16/2023 01:00:00 PM Scheduled Provider: Location:[facility] Appointment Type: Medicare Wellness Subsequent Appointment Date:09/16/2023 02:20:00 PM Scheduled Provider:Willian Barrios MD Location:[facility] Appointment Type: Open Future Scheduled Tests Laboratory* CBC w/ Auto Diff 05/27/23 * CBC w/ Auto Diff 06/10/23 Radiology* MA Mamm Screen w/CAD if perf and 3D Michael 03/17/23 [facility] App[facility]ments Appointment Date:06/17/2023 10:30:00 AM Scheduled Provider: Location:.ONCOLOGY Appointment Type:ONC Office Visit 30 (FT) Appointment Date:06/30/2023 11:20:00 AM Scheduled Provider:Willian Barrios MD Location:[facility] [place] Appointment Type: Open Appointment Date:09/16/2023 01:00:00 PM Scheduled Provider: Location:[facility] Appointment Type: Medicare Wellness Subsequent Appointment Date:09/16/2023 02:20:00 PM Scheduled Provider:Willian Barrios MD Location:[facility] Appointment Type: Open Diagnostic Tests Pending * Comp panel: Leuk/Lym [id number] 05/13/23 Future Scheduled Tests Laboratory* CBC w/ Auto Diff 05/27/23 * CBC w/ Auto Diff 06/10/23 Radiology* MA Mamm Screen w/CAD if perf and 3D Michael 03/17/23 [facility] App[facility]ments Appointment Date:06/17/2023 10:30:00 AM Scheduled Provider: Location:.ONCOLOGY Appointment Type:ONC Office Visit 30 (FT) Appointment Date:06/30/2023 11:20:00 AM Scheduled Provider:Willian Barrios MD Location:[facility] Appointment Type: Open Appointment Date:09/16/2023 01:00:00 PM Scheduled Provider: Location:[facility] Appointment Type: Medicare Wellness Subsequent Appointment Date:09/16/2023 02:20:00 PM Scheduled Provider:Willian Barrios MD Location:[facility] Appointment Type: Open Future Scheduled Tests Laboratory* CBC w/ Auto Diff 06/10/23 Radiology* MA Mamm Screen w/CAD if perf and 3D Michael 03/17/23 [facility] App[facility]ments Appointment Date:06/17/2023 10:30:00 AM Scheduled Provider: Location:.ONCOLOGY Appointment Type:ONC Office Visit 30 (FT) Appointment Date:06/30/2023 11:20:00 AM Scheduled Provider:Willian Barrios MD Location:[facility] Appointment Type: Open Appointment Date:07/10/2023 09:45:00 AM Scheduled Provider: Location:[facility] Appointment Type:Surgery FT Appointment Date:09/16/2023 01:00:00 PM Scheduled Provider: Location:[facility] Appointment Type: Medicare Wellness Subsequent Appointment Date:09/16/2023 02:20:00 PM Scheduled Provider:Willian Barrios MD Location:[facility] Appointment Type: Open Future Scheduled Tests Laboratory* CBC w/ Auto Diff 06/10/23 Radiology* MA Mamm Screen w/CAD if perf and 3D Michael 03/17/23 [facility] Evaluation + Plan note Future Appointments Appointment Date:06/17/2023 10:30:00 AM Scheduled Provider: Location:.ONCOLOGY Appointment Type:ONC Office Visit 30 (FT) Appointment Date:06/30/2023 11:20:00 AM Scheduled Provider:Willian Barrios MD Location:[facility] Appointment Type:FM Open Appointment Date:07/10/2023 09:30:00 AM Scheduled Provider: Location:[facility] Appointment Type:Surgery FT Appointment Date:09/16/2023 01:00:00 PM Scheduled Provider: Location:[facility] Appointment Type: Medicare Wellness Subsequent Appointment Date:09/16/2023 02:20:00 PM Scheduled Provider:Willian Barrios MD Location:[facility] [place] Appointment Type: Open Future Scheduled Tests Radiology* MA Mamm Screen w/CAD if perf and 3D Michael 03/17/23 [facility] App[facility]ments Appointment Date:06/30/2023 11:20:00 AM Scheduled Provider:Willian Barrios MD Location:[facility] Appointment Type:FM Open Appointment Date:07/22/2023 09:30:00 AM Scheduled Provider: Location:.ONCOLOGY Appointment Type:ONC Office Visit 30 (FT) Appointment Date:07/24/2023 10:00:00 AM Scheduled Provider: Location:[facility] Appointment Type:Surgery FT Appointment Date:08/29/2023 11:00:00 AM Scheduled Provider: Location:[facility] Appointment Type: Medicare Wellness Subsequent Appointment Date:09/16/2023 02:20:00 PM Scheduled Provider:Willian Barrios MD Location:[facility] [place] Appointment Type: Open Future Scheduled Tests Laboratory* CBC w/ Auto Diff 07/22/23 Radiology* MA Mamm Screen w/CAD if perf and 3D Michael 03/17/23 [facility] App[facility]ments Appointment Date:07/22/2023 09:30:00 AM Scheduled Provider: Location:.ONCOLOGY Appointment Type:ONC Office Visit 30 (FT) Appointment Date:07/24/2023 10:00:00 AM Scheduled Provider: Location:[facility] Appointment Type:Surgery FT Appointment Date:08/29/2023 11:00:00 AM Scheduled Provider: Location:[facility] Appointment Type: Medicare Wellness Subsequent Appointment Date:09/16/2023 02:20:00 PM Scheduled Provider:Willian Barrios MD Location:[facility] [place] Appointment Type: Open Appointment Date:09/29/2023 11:20:00 AM Scheduled Provider:Willian Barrios MD Location:[facility] [place] Appointment Type: Open Future Scheduled Tests Radiology* MA Mamm Screen w/CAD if perf and 3D Michael 03/17/23 [facility] App[facility]ments Appointment Date:08/29/2023 11:00:00 AM Scheduled Provider: Location:[facility] [place] Appointment Type: Medicare Wellness Subsequent Appointment Date:09/16/2023 02:20:00 PM Scheduled Provider:Willian Barrios MD Location:[facility] [place] Appointment Type: Open Appointment Date:09/23/2023 10:00:00 AM Scheduled Provider: Location:.ONCOLOGY Appointment Type:ONC Office Visit 30 (FT) Appointment Date:09/29/2023 11:20:00 AM Scheduled Provider:Willian Barrios MD Location:[facility] Appointment Type: Open Appointment Date:10/01/2023 12:40:00 PM Scheduled Provider:Ashlie Mead CNP Location:[facility] Appointment Type:[facility] Follow Up Future Scheduled Tests Laboratory* Hep B Core Ab, IgM 09/16/23 * HCV Antibody RFX to Quant PCR 09/16/23 * HIV Screen 4th Generation wRfx 09/16/23 * CBC w/ Auto Diff 09/16/23 * CBC w/ Auto Diff 07/31/23 * Comprehensive Metabolic Panel 09/16/23 * Ferritin 09/16/23 * Folate Level 09/16/23 * Hepatitis A Antibody IgM 09/16/23 * Hepatitis B Surface Antibody 09/16/23 * Hepatitis B Surface Antigen 09/16/23 * Iron Level 09/16/23 * Iron Percent Saturation 09/16/23 * Lactate Dehydrogenase 09/16/23 * Transferrin 09/16/23 * Vitamin B12 Level 09/16/23 Radiology* MA Mamm Screen w/CAD if perf and 3D Michael 03/17/23 [facility] Evaluation + Plan note Future Appointments Appointment Date:09/16/2023 02:20:00 PM Scheduled Provider:Willian Barrios MD Location:[facility] Appointment Type: Open Appointment Date:09/23/2023 10:00:00 AM Scheduled Provider: [facility] Type:ONC Office Visit 30 (FT) Appointment Date:09/29/2023 11:20:00 AM Scheduled Provider:Willian Barrios MD Location:[facility] Appointment Type: Open Appointment Date:10/01/2023 12:40:00 PM Scheduled Provider:Ashlie Mead CNP Location:[facility] Appointment Type:[facility] Follow Up Appointment Date:08/31/2024 11:00:00 AM Scheduled Provider: Location:[facility] Appointment Type: Medicare Wellness Subsequent Diagnostic Tests Pending * HIV Screen 4th Generation wRfx 09/15/23 * HCV Antibody RFX to Quant PCR 09/15/23 * Hepatitis B Surface Antigen 09/15/23 * Hepatitis B Surface Antibody 09/15/23 * Hep B Core Ab, IgM 09/15/23 * Hepatitis A Antibody IgM 09/15/23 Future Scheduled Tests Laboratory* CBC w/ Auto Diff 07/31/23 Radiology* MA Mamm Screen w/CAD if perf and 3D Michael 03/17/23 [facility] Appointment Date:01/15/2024 09:00:00 AM Scheduled Provider: Location:[facility] Appointment Type:Surgery FT Appointment Date:03/29/2024 10:30:00 AM Scheduled Provider:Willian Barrios MD Location:[facility] Appointment Type: Open Appointment Date:08/31/2024 11:00:00 AM Scheduled Provider: Location:[facility] Appointment Type: Medicare Wellness Subsequent Future Scheduled Tests Laboratory* CBC w/ Auto Diff 10/01/23 * CBC w/ Auto Diff 07/31/23 Radiology* MA Mamm Screen w/CAD if perf and 3D Michael 03/17/23 [facility] Evaluation + Plan note Future Appointments Appointment Date:01/15/2024 09:00:00 AM Scheduled Provider: Location:[facility] Appointment Type:Surgery FT Appointment Date:03/15/2024 10:00:00 AM Scheduled Provider:Mariah Amin MD Location:.ONCOLOGY Appointment Type:ONC Office Visit 30 (FT) Appointment Date:03/29/2024 10:30:00 AM Scheduled Provider:Willian Barrios MD Location:[facility] Appointment Type: Open Appointment Date:08/31/2024 11:00:00 AM Scheduled Provider: Location:[facility] Appointment Type:FM Medicare Wellness Subsequent Future Scheduled Tests Laboratory* CBC w/ Auto Diff 03/08/24 * CBC w/ Auto Diff 10/01/23 * CBC w/ Auto Diff 07/31/23 * Comprehensive Metabolic Panel 03/08/24 * Ferritin 03/08/24 * Iron Level 03/08/24 * Iron Percent Saturation 03/08/24 * Transferrin 03/08/24 Radiology* MA Mamm Screen w/CAD if perf and 3D Michael 03/17/23 [facility]ments Appointment Date:01/15/2024 09:00:00 AM Scheduled Provider: Location:[facility] Appointment Type:Surgery FT Appointment Date:03/15/2024 10:00:00 AM Scheduled Provider:Mariah Amin MD [facility] Type:ONC Office Visit 30 (FT) Appointment Date:03/29/2024 10:30:00 AM Scheduled Provider:Willian Barrios MD Location:[facility] Appointment Type: Open Appointment Date:08/31/2024 11:00:00 AM Scheduled Provider: Location:[facility] Appointment Type:FM Medicare Wellness Subsequent Diagnostic Tests Pending * Copper Level 12/15/23 Future Scheduled Tests Laboratory* CBC w/ Auto Diff 03/08/24 * CBC w/ Auto Diff 10/01/23 * CBC w/ Auto Diff 07/31/23 * Comprehensive Metabolic Panel 03/08/24 * Ferritin 03/08/24 * Iron Level 03/08/24 * Iron Percent Saturation 03/08/24 * Transferrin 03/08/24 Radiology* MA Mamm Screen w/CAD if perf and 3D Michael 03/17/23 [facility]ments Appointment Date:03/15/2024 10:00:00 AM Scheduled Provider:Mariah Amin MD [facility] Type:ONC Office Visit 30 (FT) Appointment Date:03/29/2024 10:30:00 AM Scheduled Provider:Willian Barrios MD Location:[facility] Appointment Type: Open Appointment Date:08/31/2024 11:00:00 AM Scheduled Provider: Location:[facility] Appointment Type: Medicare Wellness Subsequent Future Scheduled Tests Laboratory* CBC w/ Auto Diff 03/08/24 * CBC w/ Auto Diff 10/01/23 * CBC w/ Auto Diff 07/31/23 * Comprehensive Metabolic Panel 03/08/24 * Ferritin 03/08/24 * Iron Level 03/08/24 * Iron Percent Saturation 03/08/24 * Transferrin 03/08/24 Radiology* MA Mamm Screen w/CAD if perf and 3D Michael 03/17/23 [facility] Evaluation + Plan note Future Appointments Appointment Date:03/15/2024 10:00:00 AM Scheduled Provider:Mariah Amin MD [facility] Type:ONC Office Visit 30 (FT) Appointment Date:03/29/2024 10:30:00 AM Scheduled Provider:Willian Barrios MD Location:[facility] Appointment Type: Open Appointment Date:08/31/2024 11:00:00 AM Scheduled Provider: Location:[facility] Appointment Type: Medicare Wellness Subsequent Future Scheduled Tests Laboratory* CBC w/ Auto Diff 10/01/23 * CBC w/ Auto Diff 07/31/23 Radiology* MA Mamm Screen w/CAD if perf and 3D Michael 03/17/23 [facility] App[facility]ments Appointment Date:03/29/2024 10:30:00 AM Scheduled Provider:Willian Barrios MD Location:[facility] Appointment Type: Open Appointment Date:07/13/2024 10:00:00 AM Scheduled Provider:Mariah Amin MD [facility] Type:ONC Office Visit 30 (FT) Appointment Date:08/31/2024 11:00:00 AM Scheduled Provider: Location:[facility] Appointment Type: Medicare Wellness Subsequent Future Scheduled Tests Laboratory* CBC w/ Auto Diff 07/06/24 * CBC w/ Auto Diff 10/01/23 * CBC w/ Auto Diff 07/31/23 * Comprehensive Metabolic Panel 07/06/24 * Ferritin 07/06/24 * Folate Level 07/06/24 * Iron Level 07/06/24 * Iron Percent Saturation 07/06/24 * Transferrin 07/06/24 * Vitamin B12 Level 07/06/24 Radiology* MA Mamm Screen w/CAD if perf and 3D Michael 03/17/23 [facility] App[facility]ments Appointment Date:04/23/2024 12:30:00 PM Scheduled Provider: [facility] App[facility] Type:PUL Methacholine Test (FT) Appointment Date:07/13/2024 10:00:00 AM Scheduled Provider:Eloisa PATTEN, Mariah Davison [facility] Type:ONC Office Visit 30 (FT) Appointment Date:08/31/2024 09:30:00 AM Scheduled Provider:Willian Barrios MD Location:[facility] Appointment Type: Open Appointment Date:08/31/2024 11:00:00 AM Scheduled Provider: Location:[facility] Appointment Type:FM Medicare Wellness Subsequent Future Scheduled Tests Laboratory* HgbA1c 03/29/24 * TSH With T4fr Reflex 03/29/24 * CBC w/ Auto Diff 03/29/24 * CBC w/ Auto Diff 07/06/24 * CBC w/ Auto Diff 10/01/23 * CBC w/ Auto Diff 07/31/23 * Comprehensive Metabolic Panel 03/29/24 * Comprehensive Metabolic Panel 07/06/24 * Ferritin 07/06/24 * Folate Level 07/06/24 * Iron Level 07/06/24 * Iron Percent Saturation 07/06/24 * Lipid Panel 03/29/24 * Transferrin 07/06/24 * Vitamin B12 Level 07/06/24 [facility] No data available for this section [facility] No data available for this section [facility] No data available for this section [facility] Summary Purpose Family History No Family History [...] for this section No Family History Records FoundNo Family History Records FoundNo Family History Records FoundNo Family History Records FoundNo Family History Records FoundNo Family History Records Found No data available for this section No Family History Records Found No data available [...] section and content) DATE CREATED AUTHOR 10/31/2018 [facility] DATE CREATED AUTHOR AUTHOR'S ORGANIZ ATION 09/24/2022 [facility] DATE CREATED AUTHOR AUTHOR'S ORGANIZ ATION 05/30/2023 [facility] DATE CREATED AUTHOR AUTHOR'S ORGANIZ ATION 03/10/2024 [facility] DATE CREATED AUTHOR AUTHOR'S ORGANIZ ATION 04/04/2024 [facility] DATE CREATED AUTHOR AUTHOR'S ORGANIZ ATION 05/23/2024 [facility] Patient Care team informatio n (unrecognized section and content) Personnel Name: FERNY HUDDLESTON MD Address: Address: [address] [place] [address] Personnel Name: Willian Barrios MD Address: Address: [address] [place] [address] Personnel Name: Willian Barrios MD Address: Address: [address] [place] [address] Personnel Name: Willian Barrios MD Address: Address: [address] [place] [address] Personnel Name: Willian Barrios MD Address: Address: [address] Personnel Name: Willian Barrios MD Address: Address: [facility] [place] Personnel Name: Willian Barrios MD Address: Address: [facility] [place] [address] Personnel Name: Willian Barrios MD Address: Address: [facility] [place] [address] Personnel Name: Willian Barrios MD Address: Address: [facility] [place] [address] Personnel Name: Willian Barrios MD Address: Address: [facility] [place] [address] Personnel Name: Willian Barrios MD Address: Address: [facility] [place] [address] Personnel Name: Willian Barrios MD Address: Address: [facility] [place] [address] Personnel Name: Willian Barrios MD Address: Address: [facility] [place] [address] Personnel Name: Willian Barrios MD Address: Address: [facility] [place] [address] Personnel Name: Willian Barrios MD Address: Address: [facility] [place] [address] Personnel Name: Willian Barrios MD Address: Address: [facility] [place] [address] Personnel Name: Willian Barrios MD Address: Address: [facility] [place] [address] Personnel Name: Willian Barrios MD Address: Address: [facility] [place] [address] Personnel Name: Willian Barrios MD Address: Address: [facility] [place] [address] Personnel Name: Willian Barrios MD Address: Address: [facility] [address] FOR RECORDS PERTAINING TO PATIENTS WHO ARE [...] BE BASED ON THE PRIMARY CLINICAL RECORDS. [facility] [employer] [facility]. provides no warranty or guarantee of the accuracy or completeness of information in this document.
[2024-05-27] MEDS: IPRATROPIUM/ALBUTEROL SULFATE 3 ML AMPUL.NEB IH ×2 (14:47→23:10)
[2024-05-27 14:54] LABS: Internal Control Within Normal Limits; SARS-CoV-2 Ag NEGATIVE (NEGATIVE)
[2024-05-27 14:55] LABS: Influenza Virus A Antigen Negative; Influenza Virus B Antigen Negative; Internal Control Within Normal Limits
[2024-05-27] MEDS: METHYLPREDNISOLONE SOD SUCC PF 125 MG/2 ML VIAL IVP ×2 (15:09→20:27)
[2024-05-27 15:12] LABS: BUN Creatinine Ratio 9.5; Calcium 9.2 mg/dL (8.5-10.1); Carbon Dioxide 24.7 mmol/L (21.0-32.0); Chloride 102 mmol/L (98-107); Estimated GFR (African America 39 (>=60); Estimated GFR (Non-African Ame 32 (>=60); Glucose 162 mg/dL (74-106); Sodium 139 mmol/L (136-145)
[2024-05-27 15:13] LABS: Anion Gap 15.3
[2024-05-27 15:52] LABS: Lactate/Lactic Acid 3.2 mmol/L (0.4-2.0)
[2024-05-27] MEDS: CEFTRIAXONE 1,000 MG in 0.9 % SODIUM CHLORIDE 50 ML 100 MG IV (15:54)
[2024-05-27] MEDS: 0.9 % SODIUM CHLORIDE 500 ML 250 ML IV (15:56)
[2024-05-27] MEDS: AZITHROMYCIN 500 MG in 0.9 % SODIUM CHLORIDE 250 ML 250 MG IV (16:26)
[2024-05-27] MEDS: POTASSIUM CHLORIDE 10 MEQ ER TABLET 40 MEQ PO (17:53)
[2024-05-27 17:56] LABS: Lactate/Lactic Acid 1.6 mmol/L (0.4-2.0)
[2024-05-27] MEDS: ALBUTEROL SULFATE 2.5 MG/3 ML VIAL NEB IH (17:57)
--- NOTE | 2024-05-27 18:23 | P.HP_ITS ---
HPI H&P: HPI History of Present Illness Chief complaint: URTI COMPLAINT/SHORTNESS OF BREATH, Pneumonia Narrative: Patient states she has been sick off and on since March, presented to the emergency room with increasing cough and shortness of breath over the last several days. In ER found to have bibasilar pneumonia right worse than left, COVID-negative which on lung exam is surprising, although no hypoxia, she does have positive lactate and significant dyspnea and audible will wheeze without using a stethoscope When I saw patient in the emergency room, she was in bed, cough throughout the evaluation send some mild conversational dyspnea. Cough sounds like a loose cough. He denied fever or chills, no real change in shortness of breath. Compared to her baseline. Opioid HPI Opioid Management Most Recent Pain and Opioid Data: No Data to Display Review of Systems ROS Status of ROS 10 or more systems reviewed and unremark able except as noted in history and below [facility] Medical History (Updated 05/27/24 @ 17:42 by Mandy Smith) Hypothyroid ?E03.9 - Hypothyroidism, unspecified (ICD-10) Leaky heart valve ?I38 - Endocarditis, valve unspecified (ICD-10) Diabetes ?E11.9 - Type 2 diabetes mellitus without complications (ICD-10) HTN (hypertension) ?I10 - Essential (primary) hypertension (ICD-10) Surgical History (Updated 05/27/24 @ 18:28 by Sweetie Morel RN) H/O: hysterectomy ?Z90.710 - Acquired absence of both cervix and uterus (ICD-10) History of carpal tunnel release ?Z98.890 - Other specified postprocedural states (ICD-10) Previous section ?Z98.891 - History of uterine scar from previous surgery (ICD-10) Family History (Updated 05/27/24 @ 18:30 by Sweetie Morel RN) Mother Family history of cancer Father Family history of diabetes mellitus Grandmother Family history of stroke Social History (Updated 05/27/24 @ 18:30 by Sweetie Morel RN) Within the past year, how often did you have a drink containing alcohol: never Score interpretation: A score less than 3 is consistent with normal alcohol consumption. Smoking status: Never smoker Non-prescribed substance use: denies use Highest level of school completed/degree received: high school graduate Meds Home Medications and Allergies Home Medications ?Medication ?Instructions ?Recorded ?Confirmed ?Type albuterol sulfate 90 mcg/actuation 2 puff inhalation Q6H PRN 05/27/24 05/27/24 History aerosol inhaler shortness of breath or wheezing atorvastatin 40 mg tablet 40 mg PO DAILY 05/27/24 05/27/24 History fluticasone propionate 50 2 spray intranasal DAILY 05/27/24 05/27/24 History mcg/actuation nasal spray,suspension glipizide 5 mg tablet 5 mg PO DAILY 05/27/24 05/27/24 History levothyroxine 75 mcg tablet 75 mcg PO DAILY 05/27/24 05/27/24 History losartan 100 1 tab PO DAILY 05/27/24 05/27/24 History mg-hydrochlorothiazide 25 mg tablet metoprolol tartrate 25 mg tablet 25 mg PO BID 05/27/24 05/27/24 History Allergies Allergy/AdvReac Type Severity Reaction Status Date / Time Sulfa (Sulfonamide Allergy Severe Hives Verified 05/27/24 14:24 Antibiotics) Exam Constitutional Vital Signs, click to edit/add: Last Vital Signs Temp 98.7 F 05/27/24 14:16 Pulse 68 05/27/24 18:01 Resp 18 05/27/24 18:01 BP 109/80 05/27/24 18:01 Pulse Ox 94 L 05/27/24 18:01 O2 Del Method Room Air 05/27/24 17:58 Documenting provider has reviewed patient's vital signs: yes Common normals: apparent distress (Mild conversational dyspnea with persistent cough throughout the evaluation) Chest Common normals: inspection of chest normal Respiratory Common normals: no retractions; abnormal respiratory effort Effort & inspection: tachypneic Auscultation: rhonchi and wheezes Cardio Common normals: regular rate and regular rhythm GI Common normals: Normal to inspection, nondistended, normoactive bowel sounds present (Morbidly obese), soft to palpation, non-tender, no hepatosplenomegaly and no masses Extremity Common normals: normal to inspection and full ROM Results Labs Labs: Short CBC 05/27/24 Range/Units 14:28 WBC 4.4 (4.0-11.0) 10^3/uL Hgb 10.9 L (12.0-16.0) g/dL Hct 33.1 L (36.0-48.0) % Plt Count 112 L (150-450) 10^3/uL BMP 05/27/24 14:28 Sodium 139 Potassium 3.0 L Chloride 102 Carbon Dioxide 24.7 BUN 15.0 Creatinine 1.58 H Glucose 162 H Calcium 9.2 Assessment and Plan Assessment and Plan (1) Dyspnea: (2) Pneumonia: (3) Hypothyroid: (4) Diabetes: (5) HTN (hypertension): Plan Admission findings: Sinus tachycardia with heart rate greater than 90, respiratory distress with respiratory rate greater than 20, positive lactate, positive acute kidney injury secondary to bibasilar pneumonia with right worse than left resulting in severe sepsis (tachycardia, respiratory distress, positive lactate). Surprisingly based on exam her COVID test is negative. Severe sepsis due to bibasilar pneumonia as outlined above-IV antibiotics, aerosols, steroids, pretty severe wheezing that is fairly tight. Try to obtain sputum culture. Blood cultures pending. Unable to give large fluid boluses due to the history of fluid overload. NIDDM-insulin sliding scale Thrombocytopenia secondary to the above severe sepsis Hypokalemia-supplement Acute kidney injury-baseline creatinine is around 1.2. Creatinine on admission of 1.58. With this elevation of puts her creatinine to greater than 131.66% above baseline-IV fluids but gentle. History of fluid overload. Hypertension-continue with home medications. Will hold off on diuretics. Hypothyroidism-can be continued with home medications Admission status: Patient is been dealing with this illness for probably since March, worse in the last 3 days. Failed outpatient treatment. Admitted for bibasilar pneumonia with severe sepsis. Significant wheeze and dyspnea. Medically necessary treatment will span 2 midnights. Inpatient status.
--- OUTSIDE RECORDS SUMMARY | 2024-05-27 18:23 | XMS_ITS | CCD ---
Author Organization [facility] Care Team Providers Care Manager Strategy & Account Name Role Phone PHYSICIAN, DEFAULT Admitting Unavailable [...] Care Physician Willian Barrios Primary Care Physician [phone] DELMAR CORDOVA Attending Unavailable Lucas Bates Attending [...] Drug Allergy Dizziness (finding), Unknown (qualifier value) [facility] Sulfonamides (antibiotic) (1 source) Sulfonamides (Antibiotic); Translations: [sulfa drugs] Drug Allergy Unknown (qualifier value) [facility] (3 sources) Sulfonamides (Antibiotic); Translations: [SULFA (SULFONAMIDE ANTIBIOTICS)] Drug allergy (disorder) 6 [facility] Repository (4 sources) metFORMIN; Translations: [METFORMIN] Drug Allergy [address] [facility] Repository (19 sources) metFORMIN; Translations: [metformin] Drug Allergy Unknown (qualifier value), Dizziness (finding) [facility] (20 sources) Sulfonamides (Antibiotic); Translations: [sulfa drugs] Drug allergy Unknown (qualifier value) [facility] Medications Current Medications Medication Drug Class(es) Dates Sig (Normalized) Sig (Original) Albuterol (Eqv-ProAir HFA) 90 mcg/inh inhalation aerosol (11 sources) Start: 06-30-2023 take 2 puff(s) by inhalation every six hours Albuterol (Eqv-ProAir HFA) 90 mcg/inh inhalation aerosol 2 puff(s), Inhalation, q6hr, 18 gm, Refill(s) 0, [facility]pharm[facility] #[id number], 150, cm, 06/30/23 11:19:00 EDT, [...] DAY, # 90 tab(s), Refills(s) 0, Pharmacy: [facility] [id number], 152, cm, 09/17/23 13:20:00 EST, Height/Length Dosing, 11.2, kg, 09/17/23 13:20:00 EST, Weight Dosing Start Date: 09/22/23 Status: Ordered Start: 06-30-2023 take 1 tablet by leela once daily Lipitor 40 mg Tab 40 mg = 1 tab(s), Oral, Daily, # 90 tab(s), Refills(s) 0, [id number], 150, cm, 06/30/23 11:19:00 EDT, Height/Length Dosing, 112.8, kg, 06/30/23 11:19:00 EDT, Weight Dosing Start Date: 06/30/23 Status: Ordered Beclomethasone Dipropionate 0.08 MG/ACTUAT Metered Dose Inhaler (4 sources) Corticosteroid Start: 01-06-2024 take 2 puff(s) by inhalation twice daily beclomethasone 80 mcg/inh Inh Aer w/Adapt 2 puff(s), Inhalation, BID, 10.6 gm, Refill(s) 1, [facility]/pharmacy #[id number], 152, cm, 01/02/24 11:02:00 EDT, Height/Length Dosing, 112.3, kg, 01/02/24 11:02:00 EDT, Weight Dosing Start Date: 01/06/24 Status: Ordered Budesonide 0.09 MG/ACTUAT Dry Powder Inhaler (7 sources) Corticosteroid Start: 09-25-2023 budesonide 90 mcg/inh inhalation powder 1 inh, Inhalation, BID, 1 EA, Refill(s) 11, [facility]/pharmacy #[id number], 152, cm, 09/24/23 14:41:00 EST, [...] Corticosteroid Start: 04-12-2024 fluticasone Nasal 0.05 mg/inh [place] See Instructions, 48 mL, Refill(s) 1, INSTILL 2 SPRAYS IN EACH NOSTRIL ONCE A DAY, [facility], 152, cm, 03/29/24 10:40:00 EDT, Height/Length Dosing, 111.8, kg, 03/29/24 10:40:00 EDT, Weight Dosing Start Date: 04/12/24 Status: Ordered Start: 10-16-2023 fluticasone Na robyn 0.05 mg/inh [place] See Instructions, 48 mL, Refill(s) 1, USE 2 SPRAYS IN EACH NOSTRIL ONCE A DAY, [facility], 152, cm, 10/01/23 12:44:00 EST, Height/Length Dosing, 111.6, kg, 10/01/23 12:44:00 EST, Weight Dosing Start Date: 10/16/23 Status: Ordered Start: 09-24-2023 Flonase 0.05 m g/inh [place] 2 spray(s), Nasal, Daily, 16 gram, Refill(s) 0, each nostril, [facility]/pharmacy #[id number], 152, cm, 09/24/23 14:41:00 EST, Height/Length Dosing, 109.8, kg, 09/24/23 14:41:00 EST, Weight Dosing Start Date: 09/24/23 Status: Ordered glipiZIDE 5 mg oral tablet (20 sources) Sulfonylurea Start: 09-29-2023 take 1 tablet by mouth once daily glipiZIDE 5 mg Tab 5 mg = 1 tab(s), Oral, Daily, # 90 tab(s), Refills(s) 3, [id number], 152, cm, 09/29/23 11:20:00 EST, Height/Length Dosing, 111, kg, 09/29/23 11:20:00 EST, Weight Dosing Start Date: 09/29/23 Status: Ordered Start: 04-22-2023 take 1 tablet by leela once daily glipiZIDE 5 mg Tab 5 mg = 1 tab(s), Oral, Daily, # 90 tab(s), Refills(s) 3, [id number], 150.8, cm, 03/31/23 11:24:00 EDT, Height/Length [...] Daily, # 90 tab(s), Refills(s) 3, [id number], 150.8, cm, 07/24/23 9:39:00 EDT, Height/Length Dosing, 114, kg, 07/24/23 9:39:00 EDT, Weight Dosing Start Date: 07/28/23 Status: Ordered Start: 06-09-2023 take 1 tablet by leela once daily levothyroxine 75 mcg (0.075 mg) Tab 75 mcg = 1 tab(s), Oral, Daily, # 90 tab(s), Refills(s) 0, [id number], 150.8, cm, 06/04/23 13:05:00 EDT, Height/Length [...] # 120 tab(s), Refills(s) 0, Pharmacy: [facility]/pharmacy #[id number], 152, cm, 03/29/24 10:40:00 EDT, Height/Length Dosing, 111.8, kg, 03/29/24 10:40:00 EDT, Weight Dosing Start Date: 03/30/24 Stop Date: 05/29/24 Status: Ordered Start: 02-07-2023 take 1 tablet by [facility] twice daily Metoprolol tartrate 25 mg Tab 25 mg = 1 tab(s), Oral, BID, Refills(s) 0, High blood pressure Start Date: 02/07/23 Status: Ordered Oystercal-D oral tablet (7 sources) Start: 11-24-2023 Oystercal-D or al tablet 1 tab(s), Oral, BID, 100 tab(s), Refill(s) 2, [facility]pharm[facility] #[id number], 152, cm, 10/01/23 12:44:00 EST, Height/Length Dosing, 111.6, kg, 10/01/23 12:44:00 EST, Weight Dosing Start Date: 11/24/23 Status: Ordered polyethylene glycol 3350 [id number] mg / potassium chloride 1480 mg / sodium bicarbonate 5720 mg / sodium chloride 85082 mg powder for oral solution (8 sources) Osmotic Laxative Start: 10-01-2023 NuLYTELY Eliz ry oral powder for reconstitution See Instructions, 1 EA, Refill(s) 0, Prior to colonsocopy., [facility]/pharmacy #[id number], 152, cm, 10/01/23 12:44:00 EST, Height/Length Dosing, 111.6, kg, 10/01/23 12:44:00 EST, Weight Dosing Start Date: 10/01/23 Status: Ordered Start: 06-04-2023 Ya siegel oral powder for reconstitution See Instructions, 1 EA, Refill(s) 0, Oral, [facility]/pharmacy #[id number], 150.8, cm, 06/04/23 13:05:00 EDT, [...] 1 TABLET BY MOUTH EVERY DAY, [facility], 152, cm, 03/29/24 10:40:00 EDT, Height/Length Dosing, 111.8, kg, 03/29/24 10:40:00 EDT, Weight Dosing Start Date: 04/12/24 Status: Ordered Start: 07-28-2023 hydrochlorothi azide-losartan 25 mg-100 mg Tab 1 tab(s), Oral, Daily, 90 tab(s), Refill(s) 1, [facility]/pharmacy #[id number], 150.8, cm, 07/24/23 9:39:00 EDT, [...] 11:23:00 EDT, Weight Dosing Rapid COVID POC 54876 Follow-up No qualifying data available Patient Education [...] tab(s), Oral, Daily fluticasone Nasal 0.05 mg/inh [place], See Instructions glipiZIDE 5 mg Tab, 5 [...] concerns: No., 08/29/2023 (more content not included)... [facility] Comment on above: Result Comment: Elec [...] capacity. READ BY: Sophia Ferrer Dictated: 04/18/2024 [id number] Transcribed: 04/20/2024 cc:Willian Barrios M.D. [facility] Comment on above: Result Comment: Elec tronically Signed By: Deng PATTEN, Adrian Dyer\.br\Date and Time Signed: 04/21/24 09:10 EDT Dexa Scanson 03-31-2024 Dexa Scans [id number]#1.00TIFF Normal [facility] Family Medicine Office/Clini c Noteon 03-29-2024 Family Medicine Office/Clinic Note Normal [facility] Comment on above: Result Comment: Elec tronically Signed By: Denis PATTEN, Willian Weiner\.br\Date and Time Signed: 03/29/24 12:57 EDT Patient Educationon 03-29-20 Patient Education Normal [facility] Ambulatory Visit Summaryon 0 03-15-2024 Ambulatory Visit Summary Normal [address] [place] [address]- \.br\ Medications\.br \ What How Much When [...] fluticasone nasal (fluticasone Nasal 0.05 mg/ inh [place]) See instructions USE 2 SPRAYS IN EACH [...] high in vitamin C include:\.br\ ? \.br\ [place] fruits, such as checo, oranges, and grapefruits.\.b [...] is right for you.\.br\ ? \.br\ Take jrmf-fah-olpvns r and prescription medicines only as told by your health care provider.\.br\ ? \.br\ Keep all follow-up visits.\.br\ Where to find more information\.br \ Learn more about preventing iron deficiency from:\.br\ ? \.br\ National Heart, Lung, and Blood Superior: www.nhlbi.nih.g ov\.br\ ? \.br\ [place] [employer]emat[employer]: www.hematology. org\.br\ Contact a health care provider if:\.br\ ? \.br\ You develop symptoms of iron deficiency, including:\.br\ ? \.br\ Fatigue.\.br\ ? \.br\ Headache.\.br\ ? \.br\ Pale skin, lips, and nail beds.\.br\ ? \.br\ Poor appetite.\.br\ ? \.br\ Weakness.\.br\ Summary\.br\ ? \.br\ Iron deficiency anemia is a condition in which the [facility] Consent for Treatmenton Consent for Treatment [id number]#1.00TIFF Normal [facility] ED Pat Eduon 03-15-2024 ED Pat Edu Normal [facility] ED Pat Edu Normal [facility] Oncology Progress Noteon Oncology Progress Note Normal [facility] CBC w/ Auto Diffon 4 Basophils/100 WBC (Bld) 1.0 % Normal 0.0-2.0 [facility] Comment on above: Performed By: #### 2 [id number] #### [facility] Laboratory [address] [place] [address] Basophils/Leukocyt es Auto (Bld) [Pure # fraction] 0.0 E9/L Normal 0.0-0.2 [facility] Comment on above: Performed By: #### 2 [id number] #### [facility] [address] [place] [address] Eosinophils (Bld) [#/Vol] 0.1 E9/L Normal 0.0-0.5 [facility] Comment on above: Performed By: #### 2 [id number] #### [facility] [address] [place] [address] Eosinophils/100 WBC (Bld) 2.0 % Normal 0.0-8.0 [facility] Comment on above: Performed By: #### 2 [id number] #### [facility] [address] [place] [address] Erythrocyte distribution width (RBC) [Ratio] 13.5 % Normal 10.9-14.2 [facility] Comment on above: Performed By: #### 2 [id number] #### [facility] [address] [place] [address] Hematocrit (Bld) [Volume fraction] 36.6 % Normal 34.0-46.0 [facility] Comment on above: Performed By: #### 2 366809 #### [facility] [address] [place] [address] Hemoglobin (Bld) [Mass/Vol] 12.3 g/dL Normal 12.0-16.0 [facility] Comment on above: Performed By: #### 2 [id number] #### [facility] [address] [place] [address] Lymphocytes (Bld) [#/Vol] 0.6 E9/L Low 1.0-4.0 [facility] Comment on above: Performed By: #### 2 [id number] #### [facility] [address] [place] [address] Lymphocytes/100 WBC (Bld) 21.0 % Normal 14.0-50.0 [facility] Comment on above: Performed By: #### 2 110901 #### [facility] [address] [place] [address] MCH (RBC) [Entitic mass] 32.6 pg Normal 27.0-34.0 [facility] Comment on above: Performed By: #### 2 [id number] #### [facility] [address] [place] [address] MCHC (RBC) [Mass/Vol] 33.6 g/dL Normal 31.4-36.0 [facility] Comment on above: Performed By: #### 2 949076 #### [facility] [address] [place] [address] MCV (RBC) [Entitic vol] 97.0 fL Normal 80.0-100.0 [facility] Comment on above: Performed By: #### 2 359138 #### [facility] [address] [place] [address] Monocytes (Bld) [#/Vol] 0.3 E9/L Normal 0.2-1.0 [facility] Comment on above: Performed By: #### 2 661823 #### [facility] Laboratory [address] [place] [address] Neutrophils (Bld) [#/Vol] 2.1 E9/L Normal 2.0-7.5 [facility] Comment on above: Performed By: #### 2 451374 #### [facility] [address] [place] [address] Neutrophils/100 WBC (Bld) 67.2 % Normal 36.0-75.0 [facility] Comment on above: Performed By: #### 2 243900 #### [facility] [address] [place] [address] Platelet 90.0 E9/L Low 150.0-500.0 [facility] Comment on above: Result Comment: Resu lt Verified by Repeat Analysis Peripheral smear review performed. Performed By: #### 2 119739 #### [facility] [address] [place] [address] Platelet mean volume (Bld) [Entitic vol] 8.4 fL Normal 6.4-10.8 [facility] Comment on above: Performed By: #### 2 [id number] #### [facility] [address] [place] [address] RBC (Bld) [#/Vol] 3.8 E12/L Low 4.3-5.9 [facility] Comment on above: Performed By: #### 2 134117 #### [facility] [address] [place] [address] WBC corrected for nucl RBC Auto (Bld) [#/Vol] 3.1 E9/L Low 4.0-11.0 [facility] Comment on above: Performed By: #### 2 333597 #### [facility] [address] [place] [address] CHEMISTRYOrdered By: SYSTEM SYSTEM on 03-09-2024 Albumin [...] 03-09-2024 Albumin [Mass/Vol] 3.4 g/dL Normal 3.3-5.0 [facility] Comment on above: Performed By: #### 2 [id number] #### [facility] [address] [place] [address] Albumin/Globulin (S) [Mass conc ratio] 1.2 Normal 1.1-2.2 [facility] Comment on above: Performed By: #### 2 [id number] #### [facility] [address] [place] [address] ALP [Catalytic activity/Vol] 68 Int._Unit/L Normal 21-98 [facility] Comment on above: Performed By: #### 2 [id number] #### [facility] [address] [place] [address] ALT No additional P-5'-P [Catalytic activity/Vol] 21 Int._Unit/L Normal 6-46 [facility] Comment on above: Performed By: #### 2 [id number] #### [facility] [address] [place] [address] Anion gap [Moles/Vol] 11 mmol/L Normal 6-16 [facility] Comment on above: Performed By: #### 2 [id number] #### [facility] [address] [place] [address] AST [Catalytic activity/Vol] 31 Int._Unit/L Normal 5-43 [facility] Comment on above: Performed By: #### 2 294221 #### [facility] [address] [place] [address] Bilirubin [Mass/Vol] 1.0 mg/dL Normal 0.0-1.1 [facility] Comment on above: Performed By: #### 2 589355 #### [facility] [address] [place] [address] Calcium [Mass/Vol] 8.9 mg/dL Normal 8.9-11.1 [facility] Comment on above: Performed By: #### 2 614457 #### [facility] [address] [place] [address] Chloride [Moles/Vol] 103 mmol/L Normal 101-111 [facility] Comment on above: Performed By: #### 2 846594 #### [facility] [address] [place] [address] CO2 [Moles/Vol] 29 mmol/L Normal 21-31 [facility] Comment on above: Performed By: #### 2 760873 #### [facility] [address] [place] [address] Creatinine [Mass/Vol] 1.4 mg/dL High 0.5-1.3 [facility] Comment on above: Performed By: #### 2 977951 #### [facility] [address] [place] [address] Globulin (S) [Mass/Vol] 2.8 g/dL Normal 1.4-4.0 [facility] Comment on above: Performed By: #### 2 214267 #### [facility] [address] [place] [address] Glucose [Mass/Vol] 272 mg/dL High 55-199 [facility] Comment on above: Performed By: #### 2 098409 #### [facility] [address] [place] [address] Potassium [Moles/Vol] 3.9 mmol/L Normal 3.5-5.3 [facility] Comment on above: Performed By: #### 2 886182 #### [facility] [address] [place] [address] Protein [Mass/Vol] 6.2 g/dL Normal 6.0-7.8 [facility] Comment on above: Performed By: #### 2 [id number] #### [facility] [address] [place] [address] Sodium [Moles/Vol] 139 mmol/L Normal 135-145 [facility] Comment on above: Performed By: #### 2 187335 #### [facility] [address] [place] [address] Urea nitrogen [Mass/Vol] 26 mg/dL High 5-21 [facility] Comment on above: Performed By: #### 2 977463 #### [facility] [address] [place] [address] Urea nitrogen/Creatinin e [Mass ratio] 19 No Units Normal 10-20 [facility] Comment on above: Performed By: #### 2 [id number] #### [facility] [address] [place] [address] Consent for Treatmenton 02-11 Consent for Treatment [id number]#1.00TIFF Normal [facility] Ferritinon 03-09-2024 Ferritin [Mass/Vol] 36 ng/mL Normal 11-307 [facility] Comment on above: Performed By: #### 2 302906 #### [facility] [address] [place] [address] HEMATOLOGYOrdered By: SYSTEM SYSTEM on 03-09-2024 Basophils/100 [...] 03-09-2024 Iron [Mass/Vol] 87 microgram/dL Normal 35-153 [facility] Comment on above: Performed By: #### 2 201944 #### [facility] [address] [place] [address] Iron Saturationon 03-09-2024 Iron binding capacity [Mass/Vol] 357 microgram/dL Normal 250-400 [facility] Comment on above: Performed By: #### 2 024891 #### [facility] [address] [place] [address] Iron saturation [Mass fraction] 24 % Normal 20-50 [facility] Comment on above: Performed By: #### 2 732514 #### [facility] [address] [place] [address] Transferrinon 03-09-2024 Transferrin [Mass/Vol] 255 mg/dL Normal 200-370 [facility] Comment on above: Performed By: #### 2 262409 #### [facility] [address] [place] [address] eGFRon 03-09-2024 eGFR 40 mL/min/1.73 m2 Low >=59 [facility] Comment on above: Order Comment: Order added by Discern Expert. Performed By: #### 1 [id number] #### [facility] [address] [place] [address] Ambulatory Visit Summaryon 0 03-02-2024 Ambulatory Visit Summary Normal [address] [place] [address]- \.br\ Medications\.br \ What How Much When [...] fluticasone nasal (fluticasone Nasal 0.05 mg/ inh [place]) See instructions USE 2 SPRAYS IN EACH [...] for choosing us for your care.\.br\ \.br\ [facility] Gastroenterology Office/Clin ic Noteon 03-02-2024 Gastroenterology Office/Clinic Note Normal [facility] Comment on above: Result Comment: Elec tronically Signed By: Deborah Rashid MD\.br\Date and Time Signed: 03/02/24 13:05 EDT Postoperative Documentson Postoperative Documents [id number]#1.00TIFF Normal [facility] Reminderson 02-16-2024 Reminders Normal [facility] IntraOperative Documentson 0 02-10-2024 IntraOperative Documents [id number]#1.00TIFF Normal [facility] Consenton 02-09-2024 Consent [id number]#1.00TIFF Normal [facility] Discharge Instructionson Discharge Instructions [id number]#1.00TIFF Normal [facility] Main OR Intraoperative Recor don 02-09-2024 Main OR Intraoperative Record Normal [facility] Consent for Treatmenton 01-12 Consent for Treatment [id number]#1.00TIFF Normal [facility] Discharge Instructionson Discharge Instructions Normal [address] [place] [id number]- \.br\ New Follow Up Appointments after Discharge\.br \ Follow Up with Deborah Rashid When: Within 1 to 2 weeks\.br\ Comments:\.br\ Call for any problems.\.br\ Where:\.br\ [address], [address]\.br\ [facility] [address]\.br\ [place] [address]-\.br\ [id number] EpiEP (1)\.br\ Medications\.br \ What How Much When [...] fluticasone nasal (fluticasone Nasal 0.05 mg/ inh [place]) See instructions USE 2 SPRAYS IN EACH [...] color.\.br\ ? \.br\ Pain in the abdomen.\.br\ [facility] Comment on above: Result Comment: Elec tronically Signed By: Modesta Walsh RN\.br\Date and Time Signed: 02/06/24 11:09 EDT Endoscopic Procedure Report - Otheron 02-06-2024 Endoscopic Procedure Report - Other Normal [facility] Comment on above: Result Comment: Elec tronically Signed By: Deborah Rashid MD\.br\Date and Time Signed: 02/06/24 11:04 EDT Other Comment: Radha landaverde Attachment - attachment storage system not supported [id number] Can be [facility] Attachment - attachment storage system not supported [id number] Can be viewed in [facility] Attachment - attachment storage system not supported [id number] Can be viewed in source systemMissing Attachment - attachment storage system not supported [id number] Can be viewed in [facility] Attachment - attachment storage system not supported [id number] Can be viewed in [facility] Attachment - attachment storage system not supported [id number] Can be viewed in source systemMissing Attachment - attachment storage system not supported [id number] Can be viewed in source systemMissing Attachment - attachment storage system not supported [id number] Can be viewed in source systemMissing Attachment - attachment storage system not supported [id number] Can be viewed in [facility] Attachment - attachment storage system not supported [id number] Can be viewed in source systemMissing Attachment - attachment storage system not supported [id number] Can be viewed in source systemMissing Attachment - attachment storage system not supported [id number] Can be viewed in source systemMissing Attachment - attachment storage system not supported [id number] Can be viewed in source systemMissing Attachment - attachment storage system not supported [id number] Can be viewed in source systemMissing Attachment - attachment storage system not supported [id number] Can be viewed in source systemMissing Attachment - attachment storage system not supported [id number] Can be viewed in source systemMissing Attachment - attachment storage system not supported [id number] Can be viewed in source systemMissing Attachment - attachment storage system not supported [id number] Can be viewed in source systemMissing Attachment - attachment storage system not supported [id number] Can be viewed in source systemMissing Attachment - attachment storage system not supported [id number] Can be viewed in source system Inpatient Patient Summaryon 02-06-2024 Inpatient Patient Summary Normal [facility] Main OR PACU I Recordon 01-12 Main OR PACU I Record Normal [facility] Main OR Preoperative Recordo n 02-06-2024 Main OR Preoperative Record Normal [facility] Monitor Recordon 02-06-2024 Monitor Record [id number]#1.00TIFF Normal [facility] Monitor Record [id number]#1.00TIFF Normal [facility] Outpatient Surgery Discharge Instructionon 02-06-2024 Outpatient Surgery Discharge Instruction Normal [facility] Patient Education - Texton 0 02-06-2024 Patient Education - Text Normal [facility] Progress Note-Physicianon Progress Note-Physician Normal [facility] Comment on above: Result Comment: Elec tronically Signed By: Jorge Luis Fang Jr., DO\.br\Date and Time Signed: 02/06/24 12:10 EDT Progress Note-Physician Normal [facility] Comment on above: Result Comment: Elec tronically Signed By: Jorge Luis Fang Jr., DO\.br\Date and Time Signed: 02/06/24 09:27 EDT Ambulatory Visit Summaryon 0 01-02-2024 Ambulatory Visit Summary Normal [address] [place] [address]- \.br\ Medications\.br \ What How Much When [...] fluticasone nasal (fluticasone Nasal 0.05 mg/ inh [place]) See instructions USE 2 SPRAYS IN EACH [...] for choosing us for your care.\.br\ \.br\ [facility] Consenton 01-02-2024 Consent [id number]#1.00TIFF Normal [facility] Family Medicine Office/Clini c Noteon 01-02-2024 Family Medicine Office/Clinic Note Normal [facility] Comment on above: Result Comment: Elec tronically Signed By: Shalini Starkey\.br\Date and Time Signed: 01/02/24 12:23 EDT Reminderson 12-22-2023 Reminders Normal [facility] Copper Lvlon 12-18-2023 Copper [Mass/Vol] 103 microgram/dL Invalid Interpretation Code 80-158 [facility] Comment on above: Result Comment: This test was developed and its performance characteristicsdetermined by [email or web address]. It has not been cleared or approvedby the Food and Drug Administration.Detection Limit = 5Performed at: [facility] [address] [id number] MD Christiano Kolb Performed By: #### 2 822507, 1700733, 5555385, 25775877, 2959051, 3332200, 1310004, 5240982, 42755027, 8306609 ####[facility] [address] [place] [address] CBC w/ Auto Diffon 4 Basophils/100 WBC (Bld) 1.0 % Normal 0.0-2.0 [facility] Comment on above: Performed By: #### 2 000937, 8392959, 3985195, 53707723, 7510309, 8890909, 1696104, 2998909, 15613024, 7516106 ####[address] [address] Basophils/Leukocyt es Auto (Bld) [Pure # fraction] 0.0 E9/L Normal 0.0-0.2 [facility] Comment on above: Performed By: #### 2 812381, 5807796, 5888023, 79167925, 0124223, 4480061, 6533272, 2975567, 26829083, 3718865 ####[address] [address] Eosinophils (Bld) [#/Vol] 0.2 E9/L Normal 0.0-0.5 [facility] Comment on above: Performed By: #### 2 448480, 5281601, 6255724, 03508048, 4074825, 6078960, 9474655, 4280690, 77949385, 9726024 ####[address] [address] Eosinophils/100 WBC (Bld) 4.1 % Normal 0.0-8.0 [facility] Comment on above: Performed By: #### 2 812517, 5612053, 3624020, 85915960, 4788982, 2832420, 1372859, 8478366, 22606209, 8973752 ####[address] [address] Erythrocyte distribution width (RBC) [Ratio] 13.6 % Normal 10.9-14.2 [facility] Comment on above: Performed By: #### 2 169776, 5664368, 8553224, 86802699, 4249862, 6636821, 8389695, 0993818, 93920804, 7543122 ####[facility] [address] [place] [address] Hematocrit (Bld) [Volume fraction] 36.0 % Normal 34.0-46.0 [facility] Comment on above: Performed By: #### 2 237585, 3758994, 1532320, 47229135, 2835879, 9436246, 6479365, 4415092, 73575068, 5970739 ####[facility] [address] [place] [address] Hemoglobin (Bld) [Mass/Vol] 11.6 g/dL Low 12.0-16.0 [facility] Comment on above: Performed By: #### 2 586908, 6043252, 2281534, 26129046, 0026192, 2318961, 3320109, 6600207, 40015059, 1921666 ####[address] [address] Lymphocytes (Bld) [#/Vol] 1.0 E9/L Normal 1.0-4.0 [facility] Comment on above: Performed By: #### 2 861157, 2755598, 6991271, 77575479, 8638099, 6353505, 5319108, 1681591, 30044371, 0934859 ####[address] [address] Lymphocytes/100 WBC (Bld) 24.2 % Normal 14.0-50.0 [facility] Comment on above: Performed By: #### 2 837874, 4129516, 9563461, 94899670, 6780164, 8721786, 3038153, 5023934, 14424254, 2529161 ####[address] [place] [address] MCH (RBC) [Entitic mass] 30.4 pg Normal 27.0-34.0 [facility] Comment on above: Performed By: #### 2 842396, 6642464, 1058990, 48448015, 6998629, 7008604, 3233391, 4373477, 33659058, 7840306 ####[address] [place] [address] MCHC (RBC) [Mass/Vol] 32.3 g/dL Normal 31.4-36.0 [facility] Comment on above: Performed By: #### 2 480294, 8264194, 1204796, 60231420, 9522169, 1159172, 8346932, 4512648, 95442332, 6708413 ####[address] [place] [address] MCV (RBC) [Entitic vol] 94.0 fL Normal 80.0-100.0 [facility] Comment on above: Performed By: #### 2 779746, 3355911, 8234672, 09125372, 6770415, 7801059, 6828948, 8941329, 32641432, 6263401 ####[address] [address] Monocytes (Bld) [#/Vol] 0.4 E9/L Normal 0.2-1.0 [facility] Comment on above: Performed By: #### 2 997047, 9154748, 9844838, 06298356, 6850543, 8840730, 9178790, 6122357, 94747522, 1598330 ####[address] [address] Neutrophils (Bld) [#/Vol] 2.5 E9/L Normal 2.0-7.5 [facility] Comment on above: Performed By: #### 2 625648, 3587425, 0088190, 55584558, 0619779, 8833350, 0104003, 9258275, 22326202, 6324194 ####[address] [address] Neutrophils/100 WBC (Bld) 60.7 % Normal 36.0-75.0 [facility] Comment on above: Performed By: #### 2 328758, 9357549, 8535502, 36381201, 8332861, 4681642, 0004495, 3981625, 10586807, 7419231 ####[address] [place] [address] Platelet 84.0 E9/L Low 150.0-500.0 [facility] Comment on above: Result Comment: Lidia newell with slide review Performed By: #### 2 342578, 2689252, 8726095, 20689835, 2311347, 4391465, 5004957, 8243726, 20952135, 5364925 ####[address] [place] [address] Platelet mean volume (Bld) [Entitic vol] 9.2 fL Normal 6.4-10.8 [facility] Comment on above: Performed By: #### 2 296491, 0631696, 7853359, 30766414, 3362013, 3350280, 6421948, 4315720, 63032304, 8929288 ####[address] [address] RBC (Bld) [#/Vol] 3.8 E12/L Low 4.3-5.9 [facility] Comment on above: Performed By: #### 2 990239, 4740997, 0391016, 88558833, 1573591, 1380815, 3028019, 5194207, 82666624, 6859539 ####[address] [place] [address] WBC corrected for nucl RBC Auto (Bld) [#/Vol] 4.0 E9/L Normal 4.0-11.0 [facility] Comment on above: Performed By: #### 2 388146, 3254863, 3211211, 22981430, 5265646, 6885629, 1085875, 9763245, 89811072, 6676527 ####[address] [address] CHEMISTRYOrdered By: SYSTEM SYSTEM on 12-15-2023 Albumin [...] 12-15-2023 Albumin [Mass/Vol] 3.5 g/dL Normal 3.3-5.0 [facility] Comment on above: Performed By: #### 2 470979, 0089776, 0569203, 50621545, 6403366, 1887179, 8004529, 8060406, 30415488, 0384511 ####[facility] [address] [place] [address] Albumin/Globulin (S) [Mass conc ratio] 1.3 Normal 1.1-2.2 [facility] Comment on above: Performed By: #### 2 338389, 0813164, 1184308, 72020041, 9338233, 5802190, 0565774, 2192667, 18104335, 6114748 ####[facility] [address] [place] [address] ALP [Catalytic activity/Vol] 81 Int._Unit/L Normal 21-98 [facility] Comment on above: Performed By: #### 2 441012, 8663501, 2763935, 13242739, 5386636, 0219924, 9155936, 9096302, 52222968, 2389777 ####[facility] [address] [place] [address] ALT No additional P-5'-P [Catalytic activity/Vol] 21 Int._Unit/L Normal 6-46 [facility] Comment on above: Performed By: #### 2 902908, 6744838, 8150397, 51475924, 1555719, 9178547, 2164552, 4498880, 87594715, 2656069 ####[facility] [address] [place] [address] Anion gap [Moles/Vol] 12 mmol/L Normal 6-16 [facility] Comment on above: Performed By: #### 2 491196, 4800707, 5448643, 29858988, 1260896, 2978587, 9415248, 4468664, 43429109, 5986097 ####[facility] [address] [place] [address] AST [Catalytic activity/Vol] 36 Int._Unit/L Normal 5-43 [facility] Comment on above: Performed By: #### 2 325892, 4861455, 0998290, 16932844, 2103713, 4185522, 1059495, 4501824, 07045912, 0185869 ####[address] [address] Bilirubin [Mass/Vol] 1.4 mg/dL High 0.0-1.1 [facility] Comment on above: Performed By: #### 2 085655, 0625953, 0833417, 84232287, 7019146, 5889215, 7798993, 1466322, 11003350, 0403016 ####[address] [place] [address] Calcium [Mass/Vol] 8.9 mg/dL Normal 8.9-11.1 [facility] Comment on above: Performed By: #### 2 858051, 7379111, 5341040, 44095467, 4410134, 3184172, 4994855, 3151585, 56128778, 4327563 ####[address] [place] [address] Chloride [Moles/Vol] 103 mmol/L Normal 101-111 [facility] Comment on above: Performed By: #### 2 340604, 6431557, 0717263, 01636416, 3786044, 4623783, 9803302, 6190751, 15325035, 7814143 ####[facility] [address] [place] [address] CO2 [Moles/Vol] 25 mmol/L Normal 21-31 [facility] Comment on above: Performed By: #### 2 901685, 6983428, 8223517, 06482427, 3199114, 3638300, 3374892, 0578378, 84363076, 1839875 ####[facility] [address] [place] [address] Creatinine [Mass/Vol] 2.1 mg/dL High 0.5-1.3 [facility] Comment on above: Performed By: #### 2 695888, 5094391, 9517320, 13422531, 0126626, 0985228, 7904352, 5084959, 68354936, 1076775 ####[facility] [address] [place] [address] Globulin (S) [Mass/Vol] 2.7 g/dL Normal 1.4-4.0 [facility] Comment on above: Performed By: #### 2 163138, 5838952, 1209818, 86113965, 6627232, 9524010, 0732116, 6722148, 36577309, 9016431 ####[facility] [address] [place] [address] Glucose [Mass/Vol] 167 mg/dL Normal 55-199 [facility] Comment on above: Performed By: #### 2 162204, 4709435, 5731544, 97351729, 5310073, 9134094, 6211723, 6371780, 06506777, 0399757 ####[facility] [address] [place] [address] Potassium [Moles/Vol] 3.5 mmol/L Normal 3.5-5.3 [facility] Comment on above: Performed By: #### 2 334748, 2689903, 5678406, 00308854, 3951054, 5767291, 1077234, 2968292, 43781544, 1278214 ####[facility] [address] [place] [address] Protein [Mass/Vol] 6.2 g/dL Normal 6.0-7.8 [facility] Comment on above: Performed By: #### 2 521158, 1883074, 7657431, 90017724, 0424333, 8630780, 2383408, 1993685, 57537562, 8783008 ####[facility] [address] [place] [address] Sodium [Moles/Vol] 136 mmol/L Normal 135-145 [facility] Comment on above: Performed By: #### 2 845439, 5830805, 2771023, 34539765, 8125179, 1466135, 4245471, 4421107, 92810836, 2625198 ####[address] [place] [address] Urea nitrogen [Mass/Vol] 20 mg/dL Normal 5-21 [facility] Comment on above: Performed By: #### 2 417188, 3597139, 3647474, 77980798, 6294223, 2009772, 0933714, 7491400, 82132472, 8872234 ####[address] [place] [address] Urea nitrogen/Creatinin e [Mass ratio] 10 No Units Normal 10-20 [facility] Comment on above: Performed By: #### 2 751502, 5294439, 4657447, 29786298, 8462520, 8191347, 4377996, 0204149, 73519072, 2403488 ####[address] [place] [address] Consent for Treatmenton Consent for Treatment [id number] Normal [facility] Consent for Treatment [id number]#1.00TIFF Normal [facility] Ferritinon 12-15-2023 Ferritin [Mass/Vol] 19 ng/mL Normal 11-307 [facility] Comment on above: Performed By: #### 2 500587, 2828897, 3023943, 28104558, 9615204, 2517740, 7185650, 4365633, 56104886, 5725194 ####[facility] [address] [place] [address] Folateon 12-15-2023 Folate [Mass/Vol] 14.8 ng/mL Normal >=6.7 [facility] Comment on above: Performed By: #### 2 426401, 8424685, 7183512, 96133565, 6234343, 3064374, 6496566, 0635143, 73935396, 5116136 ####[facility] [address] [place] [address] HEMATOLOGYOrdered By: SYSTEM SYSTEM on 12-15-2023 Basophils/100 [...] 12-15-2023 Iron [Mass/Vol] 144 microgram/dL Normal 35-153 [facility] Comment on above: Performed By: #### 2 880535, 7328715, 3887423, 09186489, 5427435, 9505408, 3075235, 6659476, 66874209, 2702855 ####[facility] [address] [place] [address] Iron Saturationon 12-15-2023 Iron binding capacity [Mass/Vol] 427 microgram/dL High 250-400 [facility] Comment on above: Performed By: #### 2 075283, 3301239, 7990371, 22752867, 7131680, 5524371, 5742257, 9845451, 76748979, 4613740 ####[facility] [address] [place] [address] Iron saturation [Mass fraction] 34 % Normal 20-50 [facility] Comment on above: Performed By: #### 2 871142, 7532772, 1478938, 28834820, 6239113, 3658029, 8044576, 6832003, 31147404, 3496687 ####[facility] [address] [place] [address] Oncology Progress Noteon Oncology Progress Note Normal [facility] Transferrinon 12-15-2023 Transferrin [Mass/Vol] 305 mg/dL Normal 200-370 [facility] Comment on above: Performed By: #### 2 361774, 6674103, 8486721, 06271384, 0933356, 8601968, 2612996, 2840087, 85311522, 4741477 ####[address] [place] [address] Vit B12on 12-15-2023 Cobalamin (Vitamin B12) [Mass/Vol] 480 pg/mL Normal 50-1500 [facility] Comment on above: Performed By: #### 2 674350, 9236754, 6428801, 68529278, 5664072, 2858732, 8639152, 3487426, 50496539, 5709985 ####[facility] [address] [place] [address] eGFRon 12-15-2023 eGFR 25 mL/min/1.73 m2 Low >=59 [facility] Comment on above: Order Comment: Order added by Discern Expert. Performed By: #### 2 067021, 3828025, 4366638, 56297305, 1201078, 2747297, 2285164, 5269444, 27814937, 3898052 ####[facility] [address] [place] [address] Consultation Noteon 12-04-19 24 Consultation Note [id number]#1.00TIFF Normal [facility] Dexa Scanson 11-24-2023 Dexa Scans [id number]#1.00TIFF Normal [facility] Outside Mammographyon 2023 Outside Mammography [id number]#1.00TIFF Normal [facility] Consent for Procedure/Surger yon 10-03-2023 Consent for Procedure/Surgery [id number]#1.00TIFF Normal [facility] Ambulatory Visit Summaryon 1 12-02-2022 Ambulatory Visit Summary Normal [address] [address]- \.br\ You Need to Schedule the Following [...] instructions Prior to colonsocopy. Pickup at [facility]pharmacy #[id number]\.br\ Unchanged albuterol (Albuterol (Eqv-ProAir HFA) 90 mcg/ [...] Unchanged fluticasone nasal (Flonase 0.05 mg/ inh [place]) 2 Sprays Nasal Inhalation Every day each [...] Pharmacy Information\.br \ [id number]: [address], [place] [id number] [phone]\.br\ Allergies\.br\ metFORMIN (Nausea, Dizziness, Unknown)\.br\ sulfa drugs [...] chewing tobacco. If you need help quitti [facility] Gastroenterology Office/Clin ic Noteon 10-01-2023 Gastroenterology Office/Clinic Note Normal [facility] Comment on above: Result Comment: Elec tronically Signed By: Ashlie Mead CNP\.br\Date and Time Signed: 10/01/23 12:54 EST Patient Educationon 10-01-20 Patient Education Normal [facility] Ambulatory Visit Summaryon 1 11-30-2022 Ambulatory Visit Summary Invalid Interpretation Code [address] [place] [address]- \.br\ Someone Will Contact You Regarding These Appointments\.b r\ [facility] External Ambulatory Referral, Podiatry, 09/29/23 11:47:00 EST, Hypertension [facility] Ambulatory Visit Summary Normal [address] [place] [address]- \.br\ Medications\.br \ What How Much When [...] Unchanged fluticasone nasal (Flonase 0.05 mg/ inh [place]) 2 Sprays Nasal Inhalation Every day each [...] for choosing us for your care.\.br\ \.br\ [facility] Family Medicine Office/Clini c Noteon 09-29-2023 Family Medicine Office/Clinic Note Normal [facility] Comment on above: Result Comment: Elec tronically Signed By: Willian Barrios MD\.br\Date and Time Signed: 09/29/23 11:54 EST Patient Educationon 09-29-20 23 Patient Education Normal [facility] Physician Referralon 023 Physician Referral [id number]#1.00TIFF Normal [facility] RAD - MISCon 09-25-2023 RAD [facility] [id number]#1.00TIFF Normal [facility] Ambulatory Visit Summaryon 1 11-25-2022 Ambulatory Visit Summary Invalid Interpretation Code [address] [address]- \.br\ Friday 11:00 AM EST \.br\ With:\.br\ Where: [facility] Family Medicine Office/Clini c Noteon 09-24-2023 [facility] Medicine Office/Clinic Note Normal [facility] Comment on above: Result Comment: Elec tronically Signed By: Willian Barrios MD\.br\Date and Time Signed: 09/24/23 14:57 EST Patient Educationon 09-24-20 Patient Education Normal [facility] Ambulatory Visit Summaryon 1 11-18-2022 Ambulatory Visit Summary Invalid Interpretation Code [address] [address]- \.br\ Friday 11:00 AM EST \.br\ With:\.br\ Where: [facility] Family Medicine Office/Clini c Noteon 09-17-2023 [facility] Medicine Office/Clinic Note Normal [facility] Comment on above: Result Comment: Elec tronically Signed By: Willian Barrios MD\.br\Date and Time Signed: 09/17/23 17:34 EST Patient Educationon 09-17-20 Patient Education Normal [facility] .Interpretation:on 3 HCV Ab IA Ql Comment Invalid Interpretation Code [facility] Comment on above: Result Comment: Not infected with HCV unless early or acute infection issuspected (which may be delayed in an immunocompromisedindividual), or other evidence exists to indicate HCV infection.Performed at: [address] [place], [place] [id number] PhD David Alexandra Performed By: #### 2 192262, 4194044, 1829757, 1751726, 5441718, 5777117, 1580836, 56179487, 5299235, 7715272, 8422908650, 7803251, 2879143557, 083604098, 5632120, 6201587, 7628059228, 7206570 ####[facility] [address] [place] [address] HCV Antibody RFX to Quant PC Lanre 09-16-2023 HCV IgG IA Ql Non-Reactive Invalid Interpretation Code Non Reactive [facility] Comment on above: Result Comment: Perf ormed at: [id number] [place], [place] [id number] PhD David Alexandra Performed By: #### 2 886474, 8307475, 5710383, 5415063, 1865301, 2615310, 7012844, 87908997, 8528821, 6282913, 1558957583, 5348926, 3658419060, 895173813, 5286735, 2833920, 7365957592, 9291289 ####[facility] [address] [place] [address] HIV Screen 4th Generation wR fxon 09-16-2023 HIV 1+2 Ab+HIV1 p24 Ag IA Ql Non-Reactive Invalid Interpretation Code Non Reactive [facility] Comment on above: Result Comment: HIV NegativeHIV-1/HIV-2 antibodies and HIV-1 p24 antigen were NOT detected.There is no laboratory evidence of HIV infection.Performed at: [facility] [place], [place] [id number] PhD David Alexandra Performed By: #### 2 627003, 4970024, 1692197, 8659566, 9329512, 2167966, 0261704, 46462588, 8580097, 5028383, 5124839240, 8613983, 6821562788, 877562194, 8247303, 5954658, 4323843051, 7547896 ####[facility] [address] [place] [address] Hep A IgMon 09-16-2023 HAV IgM IA Ql Negative Invalid Interpretation Code Negative [facility] Comment on above: Result Comment: Perf ormed at: [address] [id number] PhD David Alexandra Performed By: #### 2 907458, 6082505, 4418786, 6523449, 6751067, 6340678, 8265591, 38761647, 6532123, 3618788, 1566586141, 9961390, 1728742486, 606137951, 3916166, 1194211, 8299183837, 5758386 ####[address] [address] Hep B Core Ab, IgMon 023 HBV core IgM IA Ql Negative Invalid Interpretation Code Negative [facility] Comment on above: Result Comment: Perf ormed at: [address] [id number] PhD David Alexandra Performed By: #### 2 017995, 8737676, 9585052, 4727546, 4230135, 1089201, 2481789, 88965671, 8493913, 8597264, 5665396255, 8746273, 6648826706, 151842993, 3139803, 9927694, 8600775474, 1592939 ####[address] [place] [address] Hep Bs Abon 09-16-2023 HBV surface Ab Ql (S) Non-Reactive Invalid Interpretation Code [facility] Comment on above: Result Comment: Non Reactive: Inconsistent with immunity,less than 10 mIU/mLReactive: Consistent with immunity,greater than 9.9 mIU/mLPerformed at: [address] [id number] PhD David Alexandra Performed By: #### 2 156986, 0264482, 2758041, 2115120, 6307864, 0023792, 1083209, 73859469, 2593064, 9883902, 1473127647, 1859873, 5934722283, 215704119, 9676281, 2346203, 6314327453, 1424737 ####[facility] [address] [place] [address] Hep Bs Agon 09-16-2023 HBV surface Ag IA Ql Negative Invalid Interpretation Code Negative [facility] Comment on above: Result Comment: Perf ormed at: [facility] [address] [place], [place] [id number] PhD David Alexandra Performed By: #### 2 622332, 9934303, 1346640, 4188628, 3472025, 1346326, 3093775, 70773851, 0801442, 9902879, 6370649109, 1001951, 9811592141, 733967444, 1305504, 9484159, 2588752632, 4198055 ####[facility] [address] [place] [address] Auto Diffon 09-15-2023 Basophils/100 WBC (Bld) 1.3 % Normal 0.0-2.0 [facility] Comment on above: Order Comment: Order Added by Discern Expert. Performed By: #### 2 574615, 6855348, 3976646, 5088465, 6142377, 4205221, 7804405, 12318860, 1657348, 9476163, 5263345546, 1392513, 2973947117, 655118948, 3587730, 0888191, 0160244541, 1642200 ####[address] [place] [address] Basophils/Leukocyt es Auto (Bld) [Pure # fraction] 0.0 E9/L Normal 0.0-0.2 [facility] Comment on above: Order Comment: Order Added by Discern Expert. Performed By: #### 2 881637, 3175431, 4443592, 2981948, 9948840, 4119642, 3875780, 76178127, 0709764, 6009067, 2518540442, 4562902, 3747285425, 412603608, 8387821, 4350627, 3522187708, 4310093 ####[facility] [address] [place] [address] Eosinophils/100 WBC (Bld) 3.4 % Normal 0.0-8.0 [facility] Comment on above: Order Comment: Order Added by Discern Expert. Performed By: #### 2 120760, 8981774, 3921472, 7510104, 3165970, 0867211, 4891720, 70548387, 5000215, 6136125, 2008796256, 8401337, 6788667100, 722546304, 2965579, 4536527, 2567778196, 8238444 ####[address] [place] [address] Eosinophils/Leukoc ytes Auto (Bld) [Pure # fraction] 0.1 E9/L Normal 0.0-0.5 [facility] Comment on above: Order Comment: Order Added by Discern Expert. Performed By: #### 2 046213, 4341030, 7521831, 9539163, 9336440, 8830833, 8716094, 53798724, 4103496, 8067622, 8401111955, 5407822, 0439116927, 566984258, 3720310, 7009834, 8390736250, 6710438 ####[address] [place] [address] Lymphocytes/100 WBC (Bld) 25.0 % Normal 14.0-50.0 [facility] Comment on above: Order Comment: Order Added by Discern Expert. Performed By: #### 2 901142, 6189195, 6940451, 0839658, 5188135, 6686468, 8172033, 79823562, 3571794, 3364044, 0179180247, 1231296, 3941905372, 079228748, 8070740, 0027496, 4035236959, 2288108 ####[address] [place] [address] Lymphocytes/Leukoc ytes Auto (Bld) [Pure # fraction] 0.7 E9/L Low 1.0-4.0 [facility] Comment on above: Order Comment: Order Added by Discern Expert. Performed By: #### 2 974168, 7897050, 7115789, 8651607, 5894636, 3109438, 1673694, 18229551, 5990808, 0902148, 6394471762, 5005253, 0038093334, 664757016, 8841254, 4670013, 6900057339, 1621370 ####[address] [place] [address] Monocytes/100 WBC (Bld) 10.1 % Normal 4.0-14.0 [facility] Comment on above: Order Comment: Order Added by Discern Expert. Performed By: #### 2 632567, 4337652, 3820483, 1541403, 8186359, 2059908, 9191576, 96791496, 5259064, 7018855, 9930521591, 5988822, 4001759116, 748047564, 0492275, 7847577, 7477473919, 9624444 ####[address] [address] Monocytes/Leukocyt es Auto (Bld) [Pure # fraction] 0.3 E9/L Normal 0.2-1.0 [facility] Comment on above: Order Comment: Order Added by Discern Expert. Performed By: #### 2 508017, 0711285, 8788387, 8553741, 8906372, 9580004, 0881603, 58117488, 1630014, 6307939, 9709730067, 3909609, 5783851419, 529232082, 4202520, 4375365, 7630291945, 8822482 ####[address] [place] [address] Neutrophils/100 WBC (Bld) 60.2 % Normal 36.0-75.0 [facility] Comment on above: Order Comment: Order Added by Discern Expert. Performed By: #### 2 097990, 8205756, 7017922, 2476542, 2087369, 2758064, 0670558, 39403203, 8621850, 8318934, 2862852235, 7315639, 6344628717, 142305003, 6064520, 2501922, 0663742366, 5461173 ####[facility] [address] [place] [address] Neutrophils/Leukoc ytes Auto (Bld) [Pure # fraction] 1.6 E9/L Low 2.0-7.5 [facility] Comment on above: Order Comment: Order Added by Discern Expert. Performed By: #### 2 899337, 2625077, 9044700, 7857528, 3181247, 9050084, 4306099, 54371647, 1867930, 8766001, 1047280614, 2354516, 8346433569, 324250799, 2326449, 5430895, 0919745764, 0634363 ####[address] [place] [address] CBC w/ Auto Diffon 3 Erythrocyte distribution width (RBC) [Ratio] 13.2 % Normal 10.9-14.2 [facility] Comment on above: Performed By: #### 2 169156, 8714094, 0616341, 0578148, 6965060, 8275892, 2094345, 91864052, 5849378, 5476504, 2573755446, 0004047, 7437222164, 022963265, 8888165, 9394797, 7642428780, 4502761 ####[facility] [address] [place] [address] Hematocrit (Bld) [Volume fraction] 36.5 % Normal 34.0-46.0 [facility] Comment on above: Performed By: #### 2 767220, 7146067, 8191988, 4634820, 8056376, 6474049, 6035781, 77524357, 5393359, 6698754, 1222228451, 7238045, 0267358328, 894906536, 1303467, 0782580, 3876853924, 0812876 ####[facility] [address] [place] [address] Hemoglobin (Bld) [Mass/Vol] 12.3 g/dL Normal 12.0-16.0 [facility] Comment on above: Performed By: #### 2 038036, 7915669, 9586100, 4377094, 9395818, 1493926, 9119161, 62611149, 3008404, 6763498, 5785053413, 2705568, 8832293159, 807236118, 3784961, 6026417, 2590662936, 4357107 ####[address] [address] MCH (RBC) [Entitic mass] 31.3 pg Normal 27.0-34.0 [facility] Comment on above: Performed By: #### 2 207280, 5974247, 3806828, 6487806, 3438559, 2064116, 8562877, 20986693, 4384270, 4407647, 1191062455, 3240227, 8830571534, 875701764, 5733702, 2059108, 4678002886, 4463756 ####[address] [address] MCHC (RBC) [Mass/Vol] 33.7 g/dL Normal 31.4-36.0 [facility] Comment on above: Performed By: #### 2 101542, 4761788, 2753995, 9233729, 4724344, 2251500, 5741014, 88721687, 1453400, 5642052, 8078401601, 4291968, 5945735478, 702717183, 2698337, 7082502, 3722664479, 8899563 ####[address] [place] [address] MCV (RBC) [Entitic vol] 92.8 fL Normal 80.0-100.0 [facility] Comment on above: Performed By: #### 2 185204, 9745847, 4387004, 5005186, 6923957, 6076494, 2122138, 57204257, 9446218, 8705280, 0946421439, 5513218, 6075905491, 581925010, 5146269, 2884824, 1013902055, 8157417 ####[facility] [address] [place] [address] Platelet mean volume (Bld) [Entitic vol] 8.5 fL Normal 6.4-10.8 [facility] Comment on above: Performed By: #### 2 299885, 7237808, 4489340, 6073279, 2305558, 0246397, 1180806, 67234131, 6292314, 3218766, 7441406385, 8853294, 5293642894, 057615389, 6170959, 8685755, 5345303097, 4872892 ####[address] [address] Platelets (Bld) [#/Vol] 89.0 E9/L Low 150.0-500.0 [facility] Comment on above: Result Comment: Plat elet count verified using smear estimate Performed By: #### 2 665330, 9349022, 2953850, 8590861, 9210571, 9794571, 5034379, 39239465, 3873230, 9395031, 4927465422, 0439314, 0299949954, 929806397, 6234552, 4252355, 0494279109, 0727488 ####[facility] [address] [place] [address] RBC (Bld) [#/Vol] 3.9 E12/L Low 4.3-5.9 [facility] Comment on above: Performed By: #### 2 245302, 9927057, 5390852, 1989358, 8196455, 0100769, 8236182, 57850460, 9443091, 6178439, 6316153617, 6441328, 9486714943, 931610462, 4972430, 6572659, 9981138806, 4125545 ####[facility] [address] [place] [address] WBC corrected for nucl RBC Auto (Bld) [#/Vol] 2.6 E9/L Low 4.0-11.0 [facility] Comment on above: Performed By: #### 2 846831, 7484715, 6763862, 9986448, 0832954, 6913829, 3482581, 30952308, 4182076, 5019593, 3674532027, 2102054, 3208382397, 258811506, 9827583, 6119463, 1616210407, 4109490 ####[facility] [address] [place] [address] CHEMISTRYOrdered By: SYSTEM SYSTEM on 09-15-2023 Albumin [...] g/dL Normal 6.0 - 7.8 gm/dL F [facility] [place] Remisol Sodium [Moles/Vol] 134 mmol/L Low 135 - 145 mmol/L [facility] Remisol Transferrin [Mass/Vol] 286 mg/dL Normal 200 - 370 mg/dL FT Remisol Urea nitrogen [Mass/Vol] 12 mg/dL Normal 5 - 21 mg/dL [facility] [place] Remisol Urea nitrogen/Creatinin e [Mass ratio] 11 mg/mg Normal 10 - 20 FT Remisol CMPon 09-15-2023 Albumin [Mass/Vol] 3.5 g/dL Normal 3.3-5.0 [facility] Comment on above: Performed By: #### 2 659064, 8356647, 8274490, 3496810, 2251761, 0463220, 6259670, 71773721, 0609968, 1991438, 7760212741, 3799505, 6248838226, 894159426, 7772012, 1586899, 8692329400, 4740364 ####[facility] [address] [place] [address] Albumin/Globulin (S) [Mass conc ratio] 1.0 Low 1.1-2.2 [facility] Comment on above: Performed By: #### 2 538144, 5420296, 4221527, 0102044, 0520416, 9501323, 5930011, 71193778, 7965211, 4719203, 2768846821, 0493018, 6663607858, 129596573, 1123136, 9932980, 7704620908, 7807108 ####[facility] [address] [place] [address] ALP [Catalytic activity/Vol] 81 Int._Unit/L Normal 21-98 [facility] Comment on above: Performed By: #### 2 653327, 5073971, 6769780, 8473606, 2353413, 4350633, 8680555, 46666570, 2674359, 9340915, 7870718203, 1521395, 6722962257, 173271512, 2781964, 1443366, 0434945789, 6780454 ####[facility] [address] [place] [address] ALT No additional P-5'-P [Catalytic activity/Vol] 23 Int._Unit/L Normal 6-46 [facility] Comment on above: Performed By: #### 2 439644, 6956864, 6023288, 4590030, 9203599, 5514622, 7224102, 78123547, 0120436, 0995005, 4820482782, 2300037, 3375503070, 030377595, 1754816, 3597037, 4806426632, 1499299 ####[address] [place] [address] Anion gap [Moles/Vol] 11 mmol/L Normal 6-16 [facility] Comment on above: Performed By: #### 2 072539, 7543920, 1035247, 3207604, 1053047, 9910631, 1779648, 26147421, 5689753, 4506087, 3419852407, 3682524, 7342257278, 061708508, 3861362, 4059574, 0394561867, 9445944 ####[address] [place] [address] AST [Catalytic activity/Vol] 42 Int._Unit/L Normal 5-43 [facility] Comment on above: Performed By: #### 2 806773, 3699614, 8189080, 0959791, 9177490, 8575493, 4624372, 05579009, 2560422, 8573167, 8243013274, 8953030, 9548362223, 294089739, 9583193, 8754930, 4814191020, 4116091 ####[facility] [address] [place] [address] Bilirubin [Mass/Vol] 1.0 mg/dL Normal 0.0-1.1 [facility] Comment on above: Performed By: #### 2 303006, 3140319, 4066603, 4909231, 0632814, 5822726, 4767913, 12999674, 5217276, 0600906, 6076880881, 9342389, 1157687545, 152426549, 8806341, 9758962, 0627149325, 9879602 ####[facility] [address] [place] [address] Calcium [Mass/Vol] 9.0 mg/dL Normal 8.9-11.1 [facility] Comment on above: Performed By: #### 2 765090, 8741616, 4445063, 2848688, 2130894, 5365426, 1218127, 13980532, 2430364, 5469731, 3219892189, 7785657, 5649530844, 097115844, 5675214, 1507658, 0927166046, 8561814 ####[address] [place] [address] Chloride [Moles/Vol] 103 mmol/L Normal 101-111 [facility] Comment on above: Performed By: #### 2 234030, 2474606, 2052897, 3091115, 7499016, 3340994, 8659595, 97573044, 7337072, 4272712, 7493044013, 1646151, 1279834805, 886607442, 6790717, 8696726, 6099410299, 2066966 ####[facility] [address] [place] [address] CO2 [Moles/Vol] 24 mmol/L Normal 21-31 [facility] Comment on above: Performed By: #### 2 768580, 2426627, 2616346, 6712175, 1649122, 9664182, 4587161, 03029306, 2372153, 7919054, 1445462368, 0722675, 4311674153, 134239808, 2926726, 2543990, 5209064764, 7491038 ####[facility] [address] [place] [address] Creatinine [Mass/Vol] 1.1 mg/dL Normal 0.5-1.3 [facility] Comment on above: Performed By: #### 2 155418, 0278511, 1346896, 8657205, 8384125, 4801867, 8528300, 76268552, 0243041, 6811292, 7263426596, 9384348, 2199842132, 173219896, 6946221, 7180569, 7055986323, 2568375 ####[facility] [address] [place] [address] Globulin (S) [Mass/Vol] 3.4 g/dL Normal 1.4-4.0 [facility] Comment on above: Performed By: #### 2 762319, 2994042, 3724531, 8980332, 1770632, 4155870, 9593400, 75081015, 1309581, 2135534, 3943206000, 9933144, 9976762710, 289267509, 6731548, 3617793, 6359243360, 5560512 ####[facility] [address] [place] [address] Glucose [Mass/Vol] 307 mg/dL High 55-199 [facility] Comment on above: Result Comment: If t his glucose result represents a fasting glucose, interpretation should refer to the following reference range: 55-99 mg/dL Performed By: #### 2 821194, 1007930, 8508300, 2918298, 3716590, 6065712, 0047097, 36387888, 2759847, 7956820, 0070169023, 7274739, 0801863661, 935192556, 7558000, 7799192, 4326300105, 5155917 ####[facility] [address] [place] [address] Potassium [Moles/Vol] 3.9 mmol/L Normal 3.5-5.3 [facility] Comment on above: Performed By: #### 2 553576, 0337481, 1389812, 6546350, 7149885, 6302667, 6008690, 52592025, 5764593, 5748526, 8238695400, 4016301, 2670730617, 083075085, 3964597, 1369392, 1963045970, 0561878 ####[facility] [address] [place] [address] Protein [Mass/Vol] 6.9 g/dL Normal 6.0-7.8 [facility] Comment on above: Performed By: #### 2 546759, 7259688, 0544103, 0114775, 4523143, 3233130, 8181827, 90299540, 8972442, 4184553, 0046476799, 9416410, 5870730756, 451740518, 6677057, 9751508, 5862461486, 6738537 ####[facility] [address] [place] [address] Sodium [Moles/Vol] 134 mmol/L Low 135-145 [facility] Comment on above: Performed By: #### 2 909970, 9833552, 1956975, 0314742, 2145632, 5143331, 9774600, 82901961, 8641852, 8237081, 1708004112, 6487159, 4592854542, 418545860, 2328206, 8638277, 5723277085, 0738989 ####[facility] [address] [place] [address] Urea nitrogen [Mass/Vol] 12 mg/dL Normal 5-21 [facility] Comment on above: Performed By: #### 2 928149, 4290927, 1467836, 2543904, 4483106, 6621729, 6448760, 62914623, 8975624, 6081669, 0262723483, 8467373, 9661205370, 438889906, 3583995, 3995849, 5276887043, 1843619 ####[facility] [address] [place] [address] Urea nitrogen/Creatinin e [Mass ratio] 11 No Units Normal 10-20 [facility] Comment on above: Performed By: #### 2 001845, 2710190, 7500704, 3891764, 0173461, 2413699, 8575342, 58336551, 9808576, 9957625, 7867621788, 8251044, 9264774321, 363885282, 1658476, 9487478, 6966687321, 3395821 ####[facility] [address] [place] [address] Consent for Treatmenton Consent for Treatment [id number]#1.00TIFF Normal [facility] Ferritinon 09-15-2023 Ferritin [Mass/Vol] 20 ng/mL Normal 11-307 [facility] Comment on above: Result Comment: NORM ALS MEN <30 YRS 16-132 ng/mL MEN >30 YRS 8-338 ng/mL WOMEN (PREMEN) 6-104 ng/mL WOMEN (POSTMEN) 12-210 ng/mL Performed By: #### 2 061305, 4432775, 6925233, 6796813, 8221273, 6964829, 2505975, 32746359, 7103692, 2451497, 8559195329, 1403709, 4071417969, 223141978, 5887807, 3522180, 1403889125, 4612800 ####[facility] [address] [place] [address] Folateon 09-15-2023 Folate [Mass/Vol] 14.7 ng/mL Normal >=6.7 [facility] Comment on above: Performed By: #### 2 146667, 3284176, 7130154, 9384875, 3404163, 7928660, 2973716, 88379013, 8225637, 4999079, 2975202264, 2209238, 2214816930, 051061974, 6551102, 0345057, 2304239214, 9005054 ####[facility] [address] [place] [address] HEMATOLOGYOrdered By: SYSTEM SYSTEM on 09-15-2023 Basophils/100 [...] 09-15-2023 Iron [Mass/Vol] 73 microgram/dL Normal 35-153 [facility] Comment on above: Performed By: #### 2 027151, 3432948, 8113943, 8804092, 1857521, 9088558, 4631087, 41383301, 6704318, 9973031, 7568150659, 0423387, 9886060184, 494009436, 2763696, 6329643, 6807449884, 1175604 ####[facility] [address] [place] [address] Iron Saturationon 09-15-2023 Iron binding capacity [Mass/Vol] 401 microgram/dL High 250-400 [facility] Comment on above: Performed By: #### 2 741434, 2281618, 3641325, 4217015, 3104955, 0885610, 7722370, 69407138, 1382629, 1826351, 7117985874, 1592042, 3768723771, 573132318, 9084358, 4958744, 6843913436, 2342105 ####[facility] [address] [place] [address] Iron saturation [Mass fraction] 18 % Low 20-50 [facility] Comment on above: Performed By: #### 2 924961, 7282052, 5200838, 4371665, 1927250, 6893744, 6629224, 73028105, 3117562, 6235421, 5130926639, 2615463, 8700904525, 068124135, 3888908, 7312969, 1689854507, 7436706 ####[facility] [address] [place] [address] LDHon 09-15-2023 LDH [Catalytic activity/Vol] 181 Int._Unit/L Normal 93-218 [facility] Comment on above: Performed By: #### 2 223754, 5266640, 8698487, 8101626, 1427871, 3791900, 1925594, 86214013, 1750422, 0420263, 5893962599, 3273272, 8582322667, 791493620, 8283036, 7814498, 7048603348, 6200712 ####[address] [address] Transferrinon 09-15-2023 Transferrin [Mass/Vol] 286 mg/dL Normal 200-370 [facility] Comment on above: Performed By: #### 2 276931, 3472370, 2895089, 6398277, 7120462, 3384935, 0973338, 37618798, 3602294, 4589716, 7572507595, 2647530, 2191651013, 941640765, 2601237, 9761945, 5242650022, 4214274 ####[address] [address] Vit B12on 09-15-2023 Cobalamin (Vitamin B12) [Mass/Vol] 508 pg/mL Normal 50-1500 [facility] Comment on above: Performed By: #### 2 583568, 9899018, 3082289, 5269278, 0157723, 7490715, 5241908, 08298583, 0125304, 3514989, 8365076892, 5922815, 4330381719, 457670231, 5188642, 2331455, 2438658560, 1006313 ####[address] [address] eGFRon 09-15-2023 GFR/1.73 sq M.predicted among non-blacks MDRD (S/P/Bld) [Vol rate/Area] 54 mL/min/1.73 m2 Low >=59 [facility] Comment on above: Order Comment: Order added by Discern Expert. Result Comment: Crowd Controller annabella kidney disease could be indicated at eGFR's of less than 60 mL/min/1.73m2. Kidney failure is indicated at less than 15 mL/min/1.73m2. Performed By: #### 2 819337, 9406858, 3008037, 5061518, 6312978, 9938524, 4583275, 59652940, 5762075, 6914404, 8323826373, 1247526, 1802047443, 611890079, 5712270, 0608797, 4325979693, 2151498 ####[facility] [address] [place] [address] Family Medicine Office/Clini c Noteon 09-01-2023 Family Medicine Office/Clinic Note Normal [facility] Comment on above: Result Comment: Elec tronically Signed By: Willian Barrios MD\.br\Date and Time Signed: 09/01/23 12:57 EST\.br\Electronically Co-Signed By: Willie Walker\.br\Date and Time Co-Signed: 08/29/23 12:10 EST Outside [facility] Examon 09-01-2023 Outside Diabetes Eye Exam [id number]#1.00TIFF Normal [facility] Ambulatory Visit Summaryon 10-29-2022 Ambulatory Visit Summary Invalid Interpretation Code [address] [place] [address]- \.br\ Friday 12:40 PM EST \.br\ With: Ashlie Mead CNP\.br\ Where: [facility] Ambulatory Visit Summary Invalid Interpretation Code [address] [place] [address]- \.br\ Friday 12:40 PM EST \.br\ With: Ashlie Mead CNP\.br\ Where: [facility] Patient Educationon 08-29-20 Patient Education Normal [facility] Screenson 08-29-2023 Screens [id number]#1.00TIFF [facility] Population Healthon 08-21-20 Population Health Normal [facility] Population Healthon 08-14-20 Population Health Normal [facility] Population Healthon 08-07-20 Population Health Normal [facility] Reminderson 08-06-2023 Reminders - From: Ashlie Mead CNP To: Regina Hollingsworth; Sent: 07/31/2023 10:00:12 EDT Show up: 07/31/2023 10:01:00 EDT Subject: Ambulatory Reminder Reminder/Recall Colonoscopy 01/2024. 6 month colon recall 02/03 [facility] Immunization Recordson 08-04 Immunization Records [id number]#1.00TIFF [facility] Ambulatory Visit Summaryon 1 Ambulatory Visit Summary Invalid Interpretation Code [address] [place] [address]- \.br\ Friday 10:00 AM EST \.br\ With:\.br\ Where: [facility]\.br\ Friday 11:20 AM EST \.br\ With: Willian Barrios MD\.br\ Where: [facility] Gastroenterology Office/Clin ic Noteon 07-31-2023 Gastroenterology Office/Clinic Note Normal [facility] Comment on above: Result Comment: Elec tronically Signed By: Ashlie Mead CNP\.br\Date and Time Signed: 07/31/23 10:07 EDT Patient Educationon 07-31-20 Patient Education Normal [facility] Ambulatory Visit Summaryon 1 Ambulatory Visit Summary Invalid Interpretation Code [address] [place] [address]- \.br\ Friday 2:20 PM EST \.br\ With: Willian Barrios MD\.br\ Where: [facility] Family Medicine Office/Clini c Noteon 07-30-2023 Family Medicine Office/Clinic Note Normal [facility] Comment on above: Result Comment: Elec tronically Signed By: Willian Barrios MD\.br\Date and Time Signed: 07/30/23 08:00 EDT IntraOperative Documentson 1 IntraOperative Documents [id number]#1.00TIFF Normal [facility] Patient Educationon 07-30-20 Patient Education Normal [facility] Population Healthon 07-29-20 23 Population Health Normal [facility] Discharge Instructionson Discharge Instructions [id number]#1.00TIFF Normal [facility] Main OR Intraoperative Recor don 07-28-2023 Main OR Intraoperative Record Normal [facility] Auto Diffon 07-25-2023 Basophils/100 WBC (Bld) 0.9 % Normal 0.0-2.0 [facility] Comment on above: Order Comment: Order Added by Discern Expert. Performed By: #### 2 056743, [id number] ####[facility] [address] [place] [address] Basophils/Leukocyt es Auto (Bld) [Pure # fraction] 0.0 E9/L Normal 0.0-0.2 [facility] Comment on above: Order Comment: Order Added by Discern Expert. Performed By: #### 2 673659, 6084552 ####[facility] [address] [place] [address] Eosinophils/100 WBC (Bld) 3.2 % Normal 0.0-8.0 [facility] Comment on above: Order Comment: Order Added by Discern Expert. Performed By: #### [id number] ####[address] [address] Eosinophils/Leukoc ytes Auto (Bld) [Pure # fraction] 0.1 E9/L Normal 0.0-0.5 [facility] Comment on above: Order Comment: Order Added by Discern Expert. Performed By: #### [id number] ####[address] [address] Lymphocytes/100 WBC (Bld) 25.7 % Normal 14.0-50.0 [facility] Comment on above: Order Comment: Order Added by Discern Expert. Performed By: #### 2 [id number] ####[address] [address] Lymphocytes/Leukoc ytes Auto (Bld) [Pure # fraction] 0.6 E9/L Low 1.0-4.0 [facility] Comment on above: Order Comment: Order Added by Discern Expert. Performed By: #### 2 [id number] ####[address] [address] Monocytes/100 WBC (Bld) 10.8 % Normal 4.0-14.0 [facility] Comment on above: Order Comment: Order Added by Areli Expert. Performed By: #### 2 237818, [id number] ####[address] [address] Monocytes/Leukocyt es Auto (Bld) [Pure # fraction] 0.3 E9/L Normal 0.2-1.0 [facility] Comment on above: Order Comment: Order Added by Discern Expert. Performed By: #### 2 114469, [id number] ####[address] [address] Neutrophils/100 WBC (Bld) 59.4 % Normal 36.0-75.0 [facility] Comment on above: Order Comment: Order Added by Discern Expert. Performed By: #### 2 400658, 1944702 ####[address] [address] Neutrophils/Leukoc ytes Auto (Bld) [Pure # fraction] 1.5 E9/L Low 2.0-7.5 [facility] Comment on above: Order Comment: Order Added by Discern Expert. Performed By: #### 2 003036, 0760438 ####[address] [address] CBC w/ Auto Diffon Erythrocyte distribution width (RBC) [Ratio] 13.1 % Normal 10.9-14.2 [facility] Comment on above: Performed By: #### 2 802950, 4695176 ####[address] [address] Hematocrit (Bld) [Volume fraction] 31.8 % Low 34.0-46.0 [facility] Comment on above: Performed By: #### 2 905164, 0682587 ####[address] [address] Hemoglobin (Bld) [Mass/Vol] 10.9 g/dL Low 12.0-16.0 [facility] Comment on above: Performed By: #### 2 595930, 5396969 ####[address] [address] MCH (RBC) [Entitic mass] 31.7 pg Normal 27.0-34.0 [facility] Comment on above: Performed By: #### 2 031038, 2055827 ####[address] [address] MCHC (RBC) [Mass/Vol] 34.3 g/dL Normal 31.4-36.0 [facility] Comment on above: Performed By: #### 2 322447, 2076118 ####[address] [address] MCV (RBC) [Entitic vol] 92.3 fL Normal 80.0-100.0 [facility] Comment on above: Performed By: #### 2 295628, 3674481 ####[facility] [address] [place] [address] Platelet mean volume (Bld) [Entitic vol] 8.5 fL Normal 6.4-10.8 [facility] Comment on above: Performed By: #### 2 231372, 7221168 ####[facility] [address] [place] [address] Platelets (Bld) [#/Vol] 79.0 E9/L Low 150.0-500.0 [facility] Comment on above: Performed By: #### 2 255651, 2035538 ####[facility] [address] [place] [address] RBC (Bld) [#/Vol] 3.4 E12/L Low 4.3-5.9 [facility] Comment on above: Performed By: #### 2 780635, 2584502 ####[facility] [address] [place] [address] WBC corrected for nucl RBC Auto (Bld) [#/Vol] 2.5 E9/L Low 4.0-11.0 [facility] Comment on above: Performed By: #### 2 437785, 7894723 ####[address] [address] Capillary Glucose POCon 07-13 Glucose [Mass/Vol] 89 mg/dL Normal 55-99 [facility] Comment on above: Result Comment: Marilyn newell RN/ Performed By: #### 2 [id number] ####[facility] [address] [place] [address] Consenton 07-25-2023 Consent [id number]#1.00TIFF Normal [facility] Inpatient Clinical Summaryon 07-25-2023 Inpatient Clinical Summary Normal [facility] Inpatient Patient Summaryon 07-25-2023 Inpatient Patient Summary Invalid Interpretation Code [address] [address]- \.br\ Friday 11:00 AM EST \.br\ With:\.br\ Where: [facility] Inpatient Patient Summary Invalid Interpretation Code [address] [place] [address]- \.br\ Friday 11:00 AM EST \.br\ With:\.br\ Where: [facility] Inpatient Patient Summary Normal [facility] Interdisciplinary Note - Lui e Manageron 07-25-2023 Interdisciplinary Note - Scientific Research Manager Normal [facility] Comment on above: Result Comment: Elec tronically Signed By: Larisa Mccormack\.br\Date and Time Signed: 07/25/23 09:28 EDT Message from Medicareon 10- Message from Medicare [id number]#1.00TIFF Normal [facility] Patient Education - Texton 1 Patient Education - Text Normal [facility] Postoperative Documentson Postoperative Documents [id number]#1.00TIFF [facility] Progress Note-Physicianon Progress Note-Physician [facility] Comment on above: Result Comment: Elec tronically Signed By: Jim Dyson Jr, DO\.br\Date and Time Signed: 07/25/23 15:47 EDT Progress Note-Physician Normal [facility] Comment on above: Result Comment: Elec tronically Signed By: Jim Dyson Jr, DO\.br\Date and Time Signed: 07/25/23 15:46 EDT Auto Diffon 07-24-2023 Basophils/100 WBC (Bld) 1.1 % Normal 0.0-2.0 [facility] Comment on above: Order Comment: Order Added by Discern Expert. Performed By: #### 2 612155, 8134552 ####[facility] [address] [place] [address] Basophils/Leukocyt es Auto (Bld) [Pure # fraction] 0.0 E9/L Normal 0.0-0.2 [facility] Comment on above: Order Comment: Order Added by Discern Expert. Performed By: #### 2 207120, 3344744 ####[address] [address] Eosinophils/100 WBC (Bld) 2.6 % Normal 0.0-8.0 [facility] Comment on above: Order Comment: Order Added by Discern Expert. Performed By: #### 2 781830, 4236102 ####[address] [address] Eosinophils/Leukoc ytes Auto (Bld) [Pure # fraction] 0.1 E9/L Normal 0.0-0.5 [facility] Comment on above: Order Comment: Order Added by Discern Expert. Performed By: #### 2 283581, 5823676 ####[address] [address] Lymphocytes/100 WBC (Bld) 31.2 % Normal 14.0-50.0 [facility] Comment on above: Order Comment: Order Added by Discern Expert. Performed By: #### 2 014826, 5304796 ####[address] [address] Lymphocytes/Leukoc ytes Auto (Bld) [Pure # fraction] 0.8 E9/L Low 1.0-4.0 [facility] Comment on above: Order Comment: Order Added by Discern Expert. Performed By: #### 2 607252, 9619592 ####[address] [address] Monocytes/100 WBC (Bld) 9.8 % Normal 4.0-14.0 [facility] Comment on above: Order Comment: Order Added by Discern Expert. Performed By: #### 2 349459, 6685204 ####[address] [address] Monocytes/Leukocyt es Auto (Bld) [Pure # fraction] 0.2 E9/L Normal 0.2-1.0 [facility] Comment on above: Order Comment: Order Added by Discern Expert. Performed By: #### 2 423952, 2687880 ####[address] [place] [address] Neutrophils/100 WBC (Bld) 55.3 % Normal 36.0-75.0 [facility] Comment on above: Order Comment: Order Added by Discern Expert. Performed By: #### 2 557121, 8414228 ####[address] [address] Neutrophils/Leukoc ytes Auto (Bld) [Pure # fraction] 1.4 E9/L Low 2.0-7.5 [facility] Comment on above: Order Comment: Order Added by Discern Expert. Performed By: #### 2 239189, 5156235 ####[address] [address] CBC w/ Auto Diffon 3 Erythrocyte distribution width (RBC) [Ratio] 13.1 % Normal 10.9-14.2 [facility] Comment on above: Performed By: #### 2 367988, 4478934 ####[address] [place] [address] Hematocrit (Bld) [Volume fraction] 33.2 % Low 34.0-46.0 [facility] Comment on above: Performed By: #### 2 374333, 3397881 ####[address] [address] Hemoglobin (Bld) [Mass/Vol] 11.2 g/dL Low 12.0-16.0 [facility] Comment on above: Performed By: #### 2 121788, 9859053 ####[address] [place] [address] MCH (RBC) [Entitic mass] 31.2 pg Normal 27.0-34.0 [facility] Comment on above: Performed By: #### 2 805441, 7105232 ####[address] [place] [address] MCHC (RBC) [Mass/Vol] 33.7 g/dL Normal 31.4-36.0 [facility] Comment on above: Performed By: #### 2 815518, 6168487 ####[address] [address] MCV (RBC) [Entitic vol] 92.7 fL Normal 80.0-100.0 [facility] Comment on above: Performed By: #### 2 832641, 0608351 ####[address] [address] Platelet mean volume (Bld) [Entitic vol] 8.5 fL Normal 6.4-10.8 [facility] Comment on above: Performed By: #### 2 082495, 2455241 ####[address] [address] Platelets (Bld) [#/Vol] 81.0 E9/L Low 150.0-500.0 [facility] Comment on above: Result Comment: Plat elet count verified using smear estimate Performed By: #### 2 485686, 5911845 ####[address] [address] RBC (Bld) [#/Vol] 3.6 E12/L Low 4.3-5.9 [facility] Comment on above: Performed By: #### 2 984978, 5694506 ####[address] [address] WBC corrected for nucl RBC Auto (Bld) [#/Vol] 2.5 E9/L Low 4.0-11.0 [facility] Comment on above: Performed By: #### 2 653485, 5899519 ####[address] [address] Consent for Treatmenton 07-13 Consent for Treatment [id number]#1.00TIFF Normal [facility] Endoscopic Procedure Report - Otheron 07-24-2023 Endoscopic Procedure Report - Other Normal [facility] Comment on above: Result Comment: Elec tronically Signed By: Rachid PATTEN, Deborah Bell\.aidee\Date and Time Signed: 07/24/23 11:16 EDT Other Comment: Radha ng Attachment - attachment storage system not supported [id number] Can [facility] Attachment - attachment storage system not supported [id number] Can be viewed in [facility] Attachment - attachment storage system not supported [id number] Can be viewed in [facility] Attachment - attachment storage system not supported [id number] Can be viewed in [facility] Attachment - attachment storage system not supported [id number] Can be viewed in [facility] Attachment - attachment storage system not supported [id number] Can be viewed in source systemMissing Attachment - attachment storage system not supported 8564222 Can be viewed in source systemMissing Attachment - attachment storage system not supported 8902736 Can be viewed in [facility] Attachment - attachment storage system not supported 6702669 Can be viewed in [facility] Attachment - attachment storage system not supported 8225582 Can be viewed in source systemMissing Attachment - attachment storage system not supported 7632334 Can be viewed in [facility] Attachment - attachment storage system not supported 1120820 Can be viewed in source systemMissing Attachment - attachment storage system not supported 3220349 Can be viewed in source systemMissing Attachment - attachment storage system not supported 4390042 Can be viewed in [facility] Attachment - attachment storage system not supported [id number] Can be viewed in source system Main OR PACU I Recordon 07-13 Main OR PACU I Record [facility] Main OR Preoperative Recordo n 07-24-2023 Main OR Preoperative Record Normal [facility] Monitor Recordon 07-24-2023 Monitor Record [id number]#1.00TIFF Normal [facility] Monitor Record [id number]#1.00TIFF [facility] Outpatient Surgery Discharge Instructionon 07-24-2023 Outpatient Surgery Discharge Instruction Normal [facility] Consent for Treatmenton 07-13 Consent for Treatment [id number]#1.00TIFF Normal [facility] Oncology Progress Noteon Oncology Progress Note Normal [facility] Pathology Noteon 07-09-2023 Pathology Note [id number]#1.00CD:127 Normal [facility] Pathology Reporton 3 Pathology Report [id number]#1.00CD:127 Normal [facility] Pathology Reporton 3 Pathology Report [id number]#1.00CD:127 Normal [facility] Pathology Report [id number]#1.00CD:127 Normal [facility] Pathology Report [id number]#1.00CD:127 Normal [facility] Family Medicine Office/Clini c Noteon 07-02-2023 Family Medicine Office/Clinic Note Normal [facility] Comment on above: Result Comment: Elec tronically Signed By: Willian Barrios MD\.br\Date and Time Signed: 07/02/23 09:33 EDT\.br\Electronically Co-Signed By: Almita Garcia\.br\Date and Time Co-Signed: 06/30/23 14:28 EDT Pathology Reporton 3 Pathology Report [id number]#1.00CD:127 Normal [facility] Ambulatory Visit Summaryon 0 06-30-2023 Ambulatory Visit Summary Invalid Interpretation Code [address] [place] [address]- \.br\ Friday 11:20 AM EST \.br\ With: Willian Barrios MD\.br\ Where: [facility] Auto Diffon 06-30-2023 Basophils/100 WBC (Bld) 0.9 % Normal 0.0-2.0 [facility] Comment on above: Order Comment: Order Added by Discern Expert. Performed By: #### 2 928613, 8818226 ####[facility] [address] [place] [address] Basophils/Leukocyt es Auto (Bld) [Pure # fraction] 0.0 E9/L Normal 0.0-0.2 [facility] Comment on above: Order Comment: Order Added by Discern Expert. Performed By: #### 2 319428, 9154765 ####[address] [address] Eosinophils/100 WBC (Bld) 3.9 % Normal 0.0-8.0 [facility] Comment on above: Order Comment: Order Added by Discern Expert. Performed By: #### 2 070433, 4127056 ####[address] [address] Eosinophils/Leukoc ytes Auto (Bld) [Pure # fraction] 0.1 E9/L Normal 0.0-0.5 [facility] Comment on above: Order Comment: Order Added by Discern Expert. Performed By: #### 2 589141, 3530418 ####[address] [address] Lymphocytes/100 WBC (Bld) 28.2 % Normal 14.0-50.0 [facility] Comment on above: Order Comment: Order Added by Discern Expert. Performed By: #### 2 383988, 9036243 ####[facility] [address] [place] [address] Lymphocytes/Leukoc ytes Auto (Bld) [Pure # fraction] 0.7 E9/L Low 1.0-4.0 [facility] Comment on above: Order Comment: Order Added by Discern Expert. Performed By: #### 2 095235, 1477161 ####[facility] [address] [place] [address] Monocytes/100 WBC (Bld) 9.1 % Normal 4.0-14.0 [facility] Comment on above: Order Comment: Order Added by Discern Expert. Performed By: #### 2 831743, 0157909 ####[address] [place] [address] Monocytes/Leukocyt es Auto (Bld) [Pure # fraction] 0.2 E9/L Normal 0.2-1.0 [facility] Comment on above: Order Comment: Order Added by Discern Expert. Performed By: #### 2 743184, 3921562 ####[address] [place] [address] Neutrophils/100 WBC (Bld) 57.9 % Normal 36.0-75.0 [facility] Comment on above: Order Comment: Order Added by Discern Expert. Performed By: #### 2 361782, 2650070 ####[address] [address] Neutrophils/Leukoc ytes Auto (Bld) [Pure # fraction] 1.5 E9/L Low 2.0-7.5 [facility] Comment on above: Order Comment: Order Added by Discern Expert. Performed By: #### 2 946107, 7581494 ####[address] [address] CBC w/ Auto Diffon Erythrocyte distribution width (RBC) [Ratio] 12.8 % Normal 10.9-14.2 [facility] Comment on above: Performed By: #### 2 076381, 8750347 ####[address] [address] Hematocrit (Bld) [Volume fraction] 36.4 % Normal 34.0-46.0 [facility] Comment on above: Performed By: #### 2 872855, 2000558 ####[address] [address] Hemoglobin (Bld) [Mass/Vol] 12.3 g/dL Normal 12.0-16.0 [facility] Comment on above: Performed By: #### 2 254526, 1519737 ####[address] [address] MCH (RBC) [Entitic mass] 31.4 pg Normal 27.0-34.0 [facility] Comment on above: Performed By: #### 2 354687, 3744998 ####[address] [address] MCHC (RBC) [Mass/Vol] 33.7 g/dL Normal 31.4-36.0 [facility] Comment on above: Performed By: #### 2 399308, 8941760 ####[address] [address] MCV (RBC) [Entitic vol] 93.2 fL Normal 80.0-100.0 [facility] Comment on above: Performed By: #### 2 606789, 3109722 ####[address] [address] Platelet mean volume (Bld) [Entitic vol] 9.6 fL Normal 6.4-10.8 [facility] Comment on above: Performed By: #### 2 870830, 0499385 ####[address] [address] Platelets (Bld) [#/Vol] 79.0 E9/L Low 150.0-500.0 [facility] Comment on above: Performed By: #### 2 609465, 4656623 ####[address] [address] RBC (Bld) [#/Vol] 3.9 E12/L Low 4.3-5.9 [facility] Comment on above: Performed By: #### 2 163072, 3105395 ####[address] [address] WBC corrected for nucl RBC Auto (Bld) [#/Vol] 2.7 E9/L Low 4.0-11.0 [facility] Comment on above: Performed By: #### 2 591651, 4423496 ####[facility] [address] [place] [address] CHEMISTRYOrdered By: SYSTEM SYSTEM on 06-30-2023 Albumin [...] 3.3 g/dL Normal 1.4 - 4.0 gm/dL [facility] Remisol Glucose [Mass/Vol] 289 mg/dL High 55 - 199 mg/dL [facility] Remisol Potassium [Moles/Vol] 4.1 mmol/L Normal 3.5 - 5.3 mmol/L [facility] Remisol Protein [Mass/Vol] 6.9 g/dL Normal 6.0 - 7.8 gm/dL [facility] Remisol Sodium [Moles/Vol] 136 mmol/L Normal 135 - 145 mmol/L [facility] Remisol Triglyceride [Mass/Vol] 102 mg/dL Normal <=149mg/dL [facility] Remisol Urea nitrogen [Mass/Vol] 19 mg/dL Normal 5 - 21 mg/dL [facility] Remisol Urea nitrogen/Creatinin e [Mass ratio] 16 mg/mg Normal 10 - 20 [facility] Remisol CHEMISTRYOrdered By: Gabriela Kincaid on 06-30-2023 Albumin DL <= 20 mg/L (U) [Mass/Vol] microgram/mL Normal 0.0 - 19.0 mcg/mL [facility] Remisol Albumin Elph (U) [Mass fraction] mg/dL Invalid Interpretation Code [facility] Remisol Creatinine (U) [Mass/Vol] 82.1 mg/dL Invalid Interpretation Code [facility] Remisol U Prot/Creat Ratio [facility] Invalid Interpretation Code 0.00 - 200.00 [facility] Remisol CHEMISTRYOrdered By: Jamison meadows on 06-30-2023 HbA1c (Bld) [Mass fraction] 7.0 % High <=5.9% [facility] ChemAutoSS CMPon 06-30-2023 Albumin [Mass/Vol] 3.6 g/dL Normal 3.3-5.0 [facility] Comment on above: Performed By: #### 2 429034, 08726369, 9519515, [id number] ####[facility] [address] [place] [address] Albumin/Globulin (S) [Mass conc ratio] 1.1 Normal 1.1-2.2 [facility] Comment on above: Performed By: #### 2 621108, 81003962, 3098748, 427110856 ####[facility] [address] [place] [address] ALP [Catalytic activity/Vol] 66 Int._Unit/L Normal 21-98 [facility] Comment on above: Performed By: #### 2 804483, 35616086, 6268987, [id number] ####[facility] [address] [facility] [place] [address] ALT No additional P-5'-P [Catalytic activity/Vol] 21 Int._Unit/L Normal 6-46 [facility] Comment on above: Performed By: #### 2 573834, 89363512, 0444110, 800178539 ####[facility] [address] [place] [address] Anion gap [Moles/Vol] 11 mmol/L Normal 6-16 [facility] Comment on above: Performed By: #### 2 920693, 28001531, 1885892, [id number] ####[facility] [address] [place] [address] AST [Catalytic activity/Vol] 37 Int._Unit/L Normal 5-43 [facility] Comment on above: Performed By: #### 2 482626, 22112673, 2625547, 260400603 ####[facility] [address] [place] [address] Bilirubin [Mass/Vol] 0.8 mg/dL Normal 0.0-1.1 [facility] Comment on above: Performed By: #### 2 757553, 47401946, 0338365, [id number] ####[facility] [address] [place] [address] Calcium [Mass/Vol] 9.5 mg/dL Normal 8.9-11.1 [facility] Comment on above: Performed By: #### 2 152503, 53688848, 8687889, 891276339 ####[facility] [address] [place] [address] Chloride [Moles/Vol] 103 mmol/L Normal 101-111 [facility] Comment on above: Performed By: #### 2 057231, 71878906, 3785316, 937157985 ####[facility] [address] [place] [address] CO2 [Moles/Vol] 26 mmol/L Normal 21-31 [facility] Comment on above: Performed By: #### 2 942042, 69345263, 6563289, 636299289 ####[facility] [address] [place] [address] Creatinine [Mass/Vol] 1.2 mg/dL Normal 0.5-1.3 [facility] Comment on above: Performed By: #### 2 570318, 11923191, 2103952, 811988872 ####[facility] [address] [place] [address] Globulin (S) [Mass/Vol] 3.3 g/dL Normal 1.4-4.0 [facility] Comment on above: Performed By: #### 2 831920, 91101040, 7422069, [id number] ####[facility] [address] [place] [address] Glucose [Mass/Vol] 289 mg/dL High 55-199 [facility] Comment on above: Result Comment: If t his glucose result represents a fasting glucose, interpretation should refer to the following reference range: 55-99 mg/dL Performed By: #### 2 486253, 47363597, 7164112, [id number] ####[facility] [address] [place] [address] Potassium [Moles/Vol] 4.1 mmol/L Normal 3.5-5.3 [facility] Comment on above: Performed By: #### 2 462411, 48949613, 3014309, 314752357 ####[facility] [address] [place] [address] Protein [Mass/Vol] 6.9 g/dL Normal 6.0-7.8 [facility] Comment on above: Performed By: #### 2 591134, 52052686, 2988388, 044578075 ####[facility] [address] [place] [address] Sodium [Moles/Vol] 136 mmol/L Normal 135-145 [facility] Comment on above: Performed By: #### 2 272748, 00610352, 1076801, [id number] ####[facility] [address] [place] [address] Urea nitrogen [Mass/Vol] 19 mg/dL Normal 5-21 [facility] Comment on above: Performed By: #### 2 732141, 26028042, 8138152, [id number] ####[facility] [address] [place] [address] Urea nitrogen/Creatinin e [Mass ratio] 16 No Units Normal 10-20 [facility] Comment on above: Performed By: #### 2 459763, 21136155, 6272852, [id number] ####[facility] [address] [place] [address] HEMATOLOGYOrdered By: SYSTEM SYSTEM on 06-30-2023 Basophils/100 [...] Low 4.0 - 11.0 E9/L [facility] HemeAutoSS QlvG3kmx 06-30-2023 HbA1c (Bld) [Mass fraction] 7.0 % High <=5.9 [facility] Comment on above: Performed By: #### 2 462321, [id number], 8661170, [id number] ####[facility] [address] [place] [address] Lipid Panelon 06-30-2023 Cholesterol [Mass/Vol] 140 mg/dL Normal 120-200 [facility] Comment on above: Performed By: #### 2 242503, 24108628, 3359120, [id number] ####[facility] [address] [place] [address] Cholesterol in HDL [Mass/Vol] 35 mg/dL Invalid Interpretation Code [facility] Comment on above: Result Comment: HDL > or equal to 60 mg/dL: Low cardiovascular riskHDL < 40 mg/dL : High cardiovascular risk Performed By: #### 2 404210, 93739068, 5953337, [id number] ####[facility] [address] [place] [address] Cholesterol in LDL [Mass/Vol] 83 mg/dL Normal <=129 [facility] Comment on above: Performed By: #### 2 280267, 41018669, 0269789, 717625855 ####[facility] [address] [place] [address] Cholesterol in VLDL [Mass/Vol] 20 mg/dL Normal 7-40 [facility] Comment on above: Performed By: #### 2 305108, 70600881, 6099487, [id number] ####[facility] [address] [place] [address] Triglyceride [Mass/Vol] 102 mg/dL Normal <=149 [facility] Comment on above: Performed By: #### 2 141184, 41501717, 6999339, 265900976 ####[facility] [address] [place] [address] Pathology Reporton Pathology Report [id number]#1.00CD:127 Normal [facility] Pathology Report [id number]#1.00CD:127 Normal [facility] Pathology Report [id number]#1.00CD:127 Normal [facility] Pathology Report [id number]#1.00CD:127 Normal [facility] Pathology Report [id number]#1.00CD:127 Normal [facility] Comment on above: Other Comment: cleri moses U Microalbon 06-30-2023 Albumin DL <= 20 mg/L (U) [Mass/Vol] mg/dL Normal 0.0-19.0 [facility] Comment on above: Performed By: #### 1 8013687, [id number] ####[facility] [address] [place] [address] U Protein/Creat Ratioon 06-13 Creatinine (U) [Mass/Vol] 82.1 mg/dL Invalid Interpretation Code [facility] Comment on above: Result Comment: The reference range and other method performance specifications have not been established for this test; results should be integrated into the clinical context for interpretation. Performed By: #### 1 7670512, [id number] ####[facility] [address] [place] [address] U Prot/Creat Ratio [facility] Invalid Interpretation Code .00-200.00 [facility] Comment on above: Performed By: #### 1 2411696, [id number] ####[facility] [address] [place] [address] Albumin Elph (U) [Mass fraction] <6.0 Invalid Interpretation Code [facility] Comment on above: Result Comment: The reference range and other method performance specifications have not been established for this test; results should be integrated into the clinical context for interpretation. Performed By: #### 1 8676342, [id number] ####[facility] [address] [place] [address] eGFRon 06-30-2023 GFR/1.73 sq M.predicted among non-blacks MDRD (S/P/Bld) [Vol rate/Area] 49 mL/min/1.73 m2 Low >=59 [facility] Comment on above: Order Comment: Order added by Discern Expert. Result Comment: Crowd Controller annabella kidney disease could be indicated at eGFR's of less than 60 mL/min/1.73m2. Kidney failure is indicated at less than 15 mL/min/1.73m2. Performed By: #### 2 123155, 43169049, 9539411, 917394419 ####[facility] [address] [place] [address] Discharge Instructionson Discharge Instructions [id number]#1.00CD:127 Normal [facility] Preoperative Documentson Preoperative Documents [id number]#1.00CD:127 Normal [facility] Auto Diffon 06-24-2023 Basophils/100 WBC (Bld) 1.5 % Normal 0.0-2.0 [facility] Comment on above: Order Comment: Order Added by Areli Expert. Performed By: #### 2 210832, 0895109 ####[facility] [address] [place] [address] Basophils/Leukocyt es Auto (Bld) [Pure # fraction] 0.0 E9/L Normal 0.0-0.2 [facility] Comment on above: Order Comment: Order Added by Areli Expert. Performed By: #### 2 551811, 2334553 ####[address] [address] Eosinophils/100 WBC (Bld) 3.9 % Normal 0.0-8.0 [facility] Comment on above: Order Comment: Order Added by Areli Expert. Performed By: #### 2 748012, 0998684 ####[address] [place] [address] Eosinophils/Leukoc ytes Auto (Bld) [Pure # fraction] 0.1 E9/L Normal 0.0-0.5 [facility] Comment on above: Order Comment: Order Added by Areli Expert. Performed By: #### 2 885377, 0258462 ####[address] [place] [address] Lymphocytes/100 WBC (Bld) 31.3 % Normal 14.0-50.0 [facility] Comment on above: Order Comment: Order Added by Discern Expert. Performed By: #### 2 049826, 9697454 ####[address] [address] Lymphocytes/Leukoc ytes Auto (Bld) [Pure # fraction] 0.8 E9/L Low 1.0-4.0 [facility] Comment on above: Order Comment: Order Added by Discern Expert. Performed By: #### 2 934997, 2795670 ####[address] [place] [address] Monocytes/100 WBC (Bld) 10.5 % Normal 4.0-14.0 [facility] Comment on above: Order Comment: Order Added by Discern Expert. Performed By: #### 2 017251, 3869107 ####[address] [place] [address] Monocytes/Leukocyt es Auto (Bld) [Pure # fraction] 0.3 E9/L Normal 0.2-1.0 [facility] Comment on above: Order Comment: Order Added by Discern Expert. Performed By: #### 2 448055, 8889583 ####[address] [place] [address] Neutrophils/100 WBC (Bld) 52.8 % Normal 36.0-75.0 [facility] Comment on above: Order Comment: Order Added by Discern Expert. Performed By: #### 2 633019, 6714006 ####[facility] [address] [place] [address] Neutrophils/Leukoc ytes Auto (Bld) [Pure # fraction] 1.3 E9/L Low 2.0-7.5 [facility] Comment on above: Order Comment: Order Added by Discern Expert. Performed By: #### 2 295717, 3338006 ####[address] [address] CBC w/ Auto Diffon 3 Erythrocyte distribution width (RBC) [Ratio] 12.6 % Normal 10.9-14.2 [facility] Comment on above: Performed By: #### 2 787481, 1826281 ####[address] [address] Hematocrit (Bld) [Volume fraction] 35.1 % Normal 34.0-46.0 [facility] Comment on above: Performed By: #### 2 716614, 1967334 ####[address] [address] Hemoglobin (Bld) [Mass/Vol] 12.0 g/dL Normal 12.0-16.0 [facility] Comment on above: Performed By: #### 2 576663, 0934240 ####[address] [address] MCH (RBC) [Entitic mass] 31.6 pg Normal 27.0-34.0 [facility] Comment on above: Performed By: #### 2 991174, 7651846 ####[address] [address] MCHC (RBC) [Mass/Vol] 34.1 g/dL Normal 31.4-36.0 [facility] Comment on above: Performed By: #### 2 302130, 1610678 ####[address] [address] MCV (RBC) [Entitic vol] 92.7 fL Normal 80.0-100.0 [facility] Comment on above: Performed By: #### 2 679090, 5101577 ####[address] [address] Platelet mean volume (Bld) [Entitic vol] 8.4 fL Normal 6.4-10.8 [facility] Comment on above: Performed By: #### 2 765108, 2542287 ####[address] [place] [address] Platelets (Bld) [#/Vol] 83.0 E9/L Low 150.0-500.0 [facility] Comment on above: Result Comment: Slid e reviewed by TLP.Platelet count verified using smear estimate. Performed By: #### 2 957846, 7537835 ####[facility] [address] [place] [address] RBC (Bld) [#/Vol] 3.8 E12/L Low 4.3-5.9 [facility] Comment on above: Performed By: #### 2 384113, 6424361 ####[facility] [address] [place] [address] WBC corrected for nucl RBC Auto (Bld) [#/Vol] 2.5 E9/L Low 4.0-11.0 [facility] Comment on above: Performed By: #### 2 569651, 8317520 ####[facility] [address] [place] [address] Bone Marrow Biopsyon 06-13 CT Bone Marrow Biopsy Normal [facility] Consent for Treatmenton 06-13 Consent for Treatment [id number]#[id number]:127 Normal [facility] HEMATOLOGYOrdered By: SYSTEM SYSTEM on [...] Recordon Main OR PACU II Record Normal [facility] RAD - Consent to Procedureon 06-24-2023 RAD - Consent to Procedure [id number]#1.00CD:127 Normal [facility] Outside Labson 06-19-2023 Outside Labs [id number]#1.00CD:127 Normal [facility] Consent for Treatmenton Consent for Treatment [id number]#1.00CD:127 Normal [facility] Oncology Progress Noteon Oncology Progress Note Normal [facility] Physician Orderon 06-17-2023 Physician Order [id number]#1.00CD:127 Normal [facility] Auto Diffon 06-12-2023 Basophils/100 WBC (Bld) 1.1 % Normal 0.0-2.0 [facility] Comment on above: Order Comment: Order Added by Discern Expert. Performed By: #### 2 933482, 0396482 ####[facility] [address] [place] [address] Basophils/Leukocyt es Auto (Bld) [Pure # fraction] 0.0 E9/L Normal 0.0-0.2 [facility] Comment on above: Order Comment: Order Added by Discern Expert. Performed By: #### 2 484505, 9791720 ####[facility] [address] [place] [address] Eosinophils/100 WBC (Bld) 4.1 % Normal 0.0-8.0 [facility] Comment on above: Order Comment: Order Added by Discern Expert. Performed By: #### 2 125488, 2546963 ####[facility] [address] [place] [address] Eosinophils/Leukoc ytes Auto (Bld) [Pure # fraction] 0.1 E9/L Normal 0.0-0.5 [facility] Comment on above: Order Comment: Order Added by Discern Expert. Performed By: #### 2 704667, 0878889 ####[address] [address] Lymphocytes/100 WBC (Bld) 27.6 % Normal 14.0-50.0 [facility] Comment on above: Order Comment: Order Added by Discern Expert. Performed By: #### 2 556400, 0054256 ####[address] [address] Lymphocytes/Leukoc ytes Auto (Bld) [Pure # fraction] 0.8 E9/L Low 1.0-4.0 [facility] Comment on above: Order Comment: Order Added by Areli Expert. Performed By: #### 2 965028, 8977088 ####[address] [place] [address] Monocytes/100 WBC (Bld) 10.4 % Normal 4.0-14.0 [facility] Comment on above: Order Comment: Order Added by Areli Expert. Performed By: #### 2 785208, 5007267 ####[address] [address] Monocytes/Leukocyt es Auto (Bld) [Pure # fraction] 0.3 E9/L Normal 0.2-1.0 [facility] Comment on above: Order Comment: Order Added by Areli Expert. Performed By: #### 2 695775, 4811782 ####[address] [address] Neutrophils/100 WBC (Bld) 56.8 % Normal 36.0-75.0 [facility] Comment on above: Order Comment: Order Added by Areli Expert. Performed By: #### 2 682955, 2024756 ####[facility] [address] [place] [address], [place] [address] Neutrophils/Leukoc ytes Auto (Bld) [Pure # fraction] 1.7 E9/L Low 2.0-7.5 [facility] Comment on above: Order Comment: Order Added by Discern Expert. Performed By: #### 2 105733, 3059655 ####[address] [place] [address] CBC w/ Auto Diffon 3 Erythrocyte distribution width (RBC) [Ratio] 12.8 % Normal 10.9-14.2 [facility] Comment on above: Performed By: #### 2 668955, 9611281 ####[address] [address] Hematocrit (Bld) [Volume fraction] 36.7 % Normal 34.0-46.0 [facility] Comment on above: Performed By: #### 2 391625, 9177547 ####[address] [address] Hemoglobin (Bld) [Mass/Vol] 12.2 g/dL Normal 12.0-16.0 [facility] Comment on above: Performed By: #### 2 110270, 1679995 ####[address] [address] MCH (RBC) [Entitic mass] 31.3 pg Normal 27.0-34.0 [facility] Comment on above: Performed By: #### 2 770963, 7996041 ####[address] [address] MCHC (RBC) [Mass/Vol] 33.3 g/dL Normal 31.4-36.0 [facility] Comment on above: Performed By: #### 2 116459, 4374464 ####[address] [address] MCV (RBC) [Entitic vol] 93.8 fL Normal 80.0-100.0 [facility] Comment on above: Performed By: #### 2 679569, 7608384 ####[address] [address] Platelet mean volume (Bld) [Entitic vol] 9.1 fL Normal 6.4-10.8 [facility] Comment on above: Performed By: #### 2 293968, 6485028 ####[facility] [address] [place] [address] Platelets (Bld) [#/Vol] 102.0 E9/L Low 150.0-500.0 [facility] Comment on above: Performed By: #### 2 479087, 5182968 ####[facility] [address] [place] [address] RBC (Bld) [#/Vol] 3.9 E12/L Low 4.3-5.9 [facility] Comment on above: Performed By: #### 2 334744, 7606151 ####[facility] [address] [place] [address] WBC corrected for nucl RBC Auto (Bld) [#/Vol] 3.0 E9/L Low 4.0-11.0 [facility] Comment on above: Performed By: #### 2 795464, 4979849 ####[facility] [address] [place] [address] Consent for Treatmenton 05-15 Consent for Treatment [id number]#[id number]:127 Normal [facility] HEMATOLOGYOrdered By: SYSTEM SYSTEM on 06-12-2023 Basophils/100 [...] for Procedure/Surger yon 06-05-2023 Consent for Procedure/Surgery [id number]#1.00CD:127 Normal [facility] Ambulatory Visit Summaryon 0 06-04-2023 Ambulatory Visit Summary Invalid Interpretation Code [id number]- \.br\ Friday 2:20 PM EST \.br\ With: Denis PATTEN, Willian [place]\.br\ Where: [facility] Gastroenterology Office/Clin ic Noteon 06-04-2023 Gastroenterology Office/Clinic Note Normal [facility] Comment on above: Result Comment: Elec tronically Signed By: Rachid PATTEN, Deborah Bell\.br\Date and Time Signed: 06/04/23 14:05 EDT Lab Reportson 05-29-2023 Lab Reports [id number]#1.00CD:127 Normal [facility] Office Visiton 05-29-2023 Follow-up visit [id number] Dakota Santos 1955 F Date Provider Department Center 05/29/2023 96189-DFOIOLJKHDELMAR CORDOVA [facility] Hos No family history on file Level of Service:08511 SC OFFICE/OUTPATIENT ESTABLISHED MOD MDM 30-39 MIN Reason for Visit and Comments: Follow-up [534600] - Early follow up Normal [facility] Auto Diffon 05-27-2023 Basophils/100 WBC (Bld) 1.3 % Normal 0.0-2.0 [facility] Comment on above: Order Comment: Order Added by Discern Expert. Performed By: #### 2 558598, 4535548 ####[facility] [address] [place] [address] Basophils/Leukocyt es Auto (Bld) [Pure # fraction] 0.0 E9/L Normal 0.0-0.2 [facility] Comment on above: Order Comment: Order Added by Discern Expert. Performed By: #### 2 368531, 5005453 ####[facility] [address] [place] [address] Eosinophils/100 WBC (Bld) 5.3 % Normal 0.0-8.0 [facility] Comment on above: Order Comment: Order Added by Discern Expert. Performed By: #### 2 262473, 2360123 ####[facility] [address] [place] [address] Eosinophils/Leukoc ytes Auto (Bld) [Pure # fraction] 0.2 E9/L Normal 0.0-0.5 [facility] Comment on above: Order Comment: Order Added by Discern Expert. Performed By: #### 2 724482, 8162096 ####[address] [address] Lymphocytes/100 WBC (Bld) 26.5 % Normal 14.0-50.0 [facility] Comment on above: Order Comment: Order Added by Areli Expert. Performed By: #### 2 915762, 9846813 ####[address] [address] Lymphocytes/Leukoc ytes Auto (Bld) [Pure # fraction] 0.8 E9/L Low 1.0-4.0 [facility] Comment on above: Order Comment: Order Added by Areli Expert. Performed By: #### 2 320769, 4568832 ####[address] [address] Monocytes/100 WBC (Bld) 10.9 % Normal 4.0-14.0 [facility] Comment on above: Order Comment: Order Added by Areli Expert. Performed By: #### 2 042665, 0955137 ####[address] [address] Monocytes/Leukocyt es Auto (Bld) [Pure # fraction] 0.3 E9/L Normal 0.2-1.0 [facility] Comment on above: Order Comment: Order Added by Areli Expert. Performed By: #### 2 375953, 2665468 ####[address] [address] Neutrophils/100 WBC (Bld) 56.0 % Normal 36.0-75.0 [facility] Comment on above: Order Comment: Order Added by Discern Expert. Performed By: #### 2 531254, 5452487 ####[facility] [address] [place] [address] Neutrophils/Leukoc ytes Auto (Bld) [Pure # fraction] 1.6 E9/L Low 2.0-7.5 [facility] Comment on above: Order Comment: Order Added by Discern Expert. Performed By: #### 2 244011, 5881404 ####[address] [address] CBC w/ Auto Diffon 3 Erythrocyte distribution width (RBC) [Ratio] 13.0 % Normal 10.9-14.2 [facility] Comment on above: Performed By: #### 2 185322, 3600695 ####[address] [address] Hematocrit (Bld) [Volume fraction] 32.9 % Low 34.0-46.0 [facility] Comment on above: Performed By: #### 2 885553, 2310369 ####[address] [address] Hemoglobin (Bld) [Mass/Vol] 11.2 g/dL Low 12.0-16.0 [facility] Comment on above: Performed By: #### 2 947439, 7282713 ####[address] [address] MCH (RBC) [Entitic mass] 31.7 pg Normal 27.0-34.0 [facility] Comment on above: Performed By: #### 2 951905, 4625927 ####[address] [address] MCHC (RBC) [Mass/Vol] 34.2 g/dL Normal 31.4-36.0 [facility] Comment on above: Performed By: #### 2 496275, 4630483 ####[address] [address] MCV (RBC) [Entitic vol] 92.7 fL Normal 80.0-100.0 [facility] Comment on above: Performed By: #### 2 579656, 2655073 ####[facility] [address] [place] [address] Platelet mean volume (Bld) [Entitic vol] 8.5 fL Normal 6.4-10.8 [facility] Comment on above: Performed By: #### 2 976725, 9400070 ####[address] [address] Platelets (Bld) [#/Vol] 99.0 E9/L Low 150.0-500.0 [facility] Comment on above: Result Comment: Slid e reviewed by ANU.Platelet count verified using smear estimate Performed By: #### 2 877820, 7781122 ####[address] [address] RBC (Bld) [#/Vol] 3.6 E12/L Low 4.3-5.9 [facility] Comment on above: Performed By: #### 2 653852, 4966741 ####[address] [address] WBC corrected for nucl RBC Auto (Bld) [#/Vol] 2.9 E9/L Low 4.0-11.0 [facility] Comment on above: Performed By: #### 2 852270, 9041124 ####[address] Consent for Treatmenton 05-13 Consent for Treatment [id number]#[id number]:127 Normal [facility] HEMATOLOGYOrdered By: SYSTEM SYSTEM on 05-27-2023 Basophils/100 [...] 3.6 E12/L Low 4.3 - 5.9 E12/L [facility] HemeAutoSS WBC corrected for nucl RBC Auto (Bld) [#/Vol] 2.9 E9/L Low 4.0 - 11.0 E9/L [facility] HemeAutoSS Comp panel: Leuk/Lym [id number] n 05-16-2023 Analysis and Gating Strategy Comment Invalid Interpretation Code [facility] Comment on above: Result Comment: 8 co afshin analysis with CD45/SSC gatingTechnical-Analysis performed at [facility], [address] [place] ,[place] [address] Director: Sonia Capps [facility] Performed By: #### 1 [id number], [id number], [id number], 2476628, [id number], 376638005, [id number] ####[facility] [address] [place] [address] Annotation comment [Interpretation] Narrative Comment Invalid Interpretation Code [facility] Comment on above: Result Comment: Clin ical correlation is recommended. Performed By: #### 1 344409177, [id number], 2042398353, 8847354, 2530341799, 623599472, [id number] ####[facility] [address] [place] [address] Assessment of Leukocytes Comment Invalid Interpretation Code [facility] Comment on above: Result Comment: No m [...] 71%, NKcells 16%. Performed By: #### 1 870278976, 1270705807, 7718447396, 1642366, 6251402217, 151703506, 7523224288 ####[facility] [address] [place] [address] CLINICAL INFORMATION:FIND:P T: Comment Invalid Interpretation Code [facility] Comment on above: Result Comment: A re cent CBC was not available for review at the time this report wasprepared. Performed By: #### 1 [id number], 4163606519, 4384323422, 0165929, 4316261850, 318841065, [id number] ####[facility] [address] [place] [address] Immunophenotyping study Comment Invalid Interpretation Code [facility] Comment on above: Result Comment: CD2 Normal CD3 NormalCD4 Normal CD5 NormalCD7 Normal CD8 YrswnpQG79 Normal CD11b ZskeayPD75 Normal CD14 VhpzwlLW64 Normal CD19 OnxhxiGC25 Normal CD33 AmkxjdXD93 Normal CD38 EhhiprDT15 Normal CD56 WmlvmhJC05 Normal CD117 NormalHLA-DR Normal KAPPA NormalLAMBDA Normal CD64 Normal Performed By: #### 1 892310188, 9685522944, 8051512584, 7832391, 7911655616, 206632922, 0127687776 ####[facility] [address] [place] [address] Laboratory comment Good (Report) Comment Invalid Interpretation Code [facility] Comment on above: Result Comment: Each antibody in this assay was utilized to assess for potentialabnormalities of studied cell populations or to characterizeidentified abnormalities.This test was developed and its performance characteristics determinedby [facility]. It has not been cleared or approved by the U.S. Food andDrug Administration.The FDA has determined that such clearance or approval is notnecessary. This test is used for clinical purposes. It should not beregarded as investigational or for research.Performed at: -Y [facility] [id number] [employer] [facility] [place], [place] [id number] [facility] Génesis DawsonnPerformed at: TG [facility] [id number] [employer] [facility] [id number] [facility] Génesis Scott Performed By: #### 1 [id number], [id number], 9517528836, 1970936, 9334074415, 674898267, 1343272543 ####[facility] [address] [place] [address] Pathologist interpretation (Unsp spec) [Interp] Comment Invalid Interpretation Code [facility] Comment on above: Result Comment: No s ignificant immunophenotypic abnormality detected Performed By: #### 1 [id number], 7129719343, 2802654745, 5259823, 2701583152, 264447641, 1571978442 ####[facility] [address] [place] [address] Pathologist name Comment Invalid Interpretation Code [facility] Comment on above: Result Comment: Hoang Enamorado M.D. Performed By: #### 1 [id number], 1181542813, 2305440534, 3897922, 2218798838, 397703267, 3865954479 ####[address] [place] [address] Specimen source Nom (Unsp spec) Comment Invalid Interpretation Code [facility] Comment on above: Result Comment: Mary pheral blood Performed By: #### 1 879354401, 0812902974, 1863811203, 3235014, 3245584286, 687477428, 8739795863 ####[address] [place] [address] Viable cells/100 cells (Unsp spec) Comment Invalid Interpretation Code [facility] Comment on above: Result Comment: 86% Performed By: #### 1 178045328, 0063293345, 9339108161, 6807847, 8757368745, 397131790, 1901101784 ####[facility] [address] [place] [address] Flow Interp 16 or moreon Flow Interp 16 or more Performed Invalid Interpretation Code [facility] Comment on above: Result Comment: Perf ormed at: -Y [facility] [id number] [facility] [place], [place] [id number] [facility] Génesis Scott Performed By: #### 1 495741272, 3051121839, 5814630621, 3219684, 0345692186, 387650993, 6478254294 ####[facility] [address] [place] [address] Flow Marker, Firston 023 Flow Marker, First Performed Invalid Interpretation Code [facility] Comment on above: Result Comment: Perf ormed at: -Y [facility] [id number] TW [employer] [place] [id number] [facility] Chenn Anjen Performed By: #### 1 825441936, 6993513265, 3209020522, 3462451, 5633750702, 463721448, 6676333444 ####[facility] [address] [place] [address] Flow Markers X 15on 05-16-20 23 Flow Markers X 15 Performed Invalid Interpretation Code [facility] Comment on above: Result Comment: Perf ormed at: -Y [facility] [id number] [employer] [place] [id number] [facility] Chenn Anjen Performed By: #### 1 198914365, 2722865437, 3185144882, 6427272, 8978542785, 839728160, 9438721769 ####[facility] [address] [place] [address] Flow Markers X 3on 3 Flow Markers X 3 Performed Invalid Interpretation Code [facility] Comment on above: Result Comment: Perf ormed at: -Y [facility] [id number] [employer] [place] [id number] [facility] Chenn Anjen Performed By: #### 1 231371955, 4605361751, 8768602263, 5259141, 2994431970, 863810460, 7958281567 ####[facility] [address] [place] [address] Flow Markers X 5on 3 Flow Markers X 5 Performed Invalid Interpretation Code [facility] Comment on above: Result Comment: Perf ormed at: -Y [facility] [id number] TW [employer] [place] [id number] MDPhD Chenn Anjen Performed By: #### 1 632220555, 1825915748, 1383148111, 4563348, 9774734007, 160720939, 2599013975 ####[facility] [address] [place] [address] Lab Miscellaneous-on 05-16 Lab Miscellaneous COMMENT Invalid Interpretation Code [facility] Comment on above: Result Comment: Test Ordered: [id number] Platelet Antibody ProfileHLA Class 1 Antibody Negative BNReference Range: NegativeIIb/IIIa Antibody Negative BNReference Range: NegativeIb/IX Antibody Negative BNReference Range: NegativeIa/IIa Antibody Negative BNReference Range: NegativeGlycoprotein IV Antibody Negative BNReference Range: NegativePerformed at: [facility] CampusJrwxbs7752 [place], [place] [id number] PhD David Alexandra Performed By: #### 1 [id number] ####[address] [address] Consent for Treatmenton Consent for Treatment [id number]#1.00CD:127 Normal [facility] Consent for Treatment [id number]#[id number]:127 Normal [facility] HEMATOLOGYOrdered By: Mera Kincaid on 05-13-2023 Platelets (Bld) [#/Vol] 99.0 E9/L Low 150.0 - 500.0 E9/L [facility] [employer]SS Comment on above: Result Comment: Slid e reviewed by ANU. Lab Miscellaneous-LCon 05-13 Test Code 559355 Invalid Interpretation Code [facility] Comment on above: Performed By: #### 1 [id number] ####[facility] [address] [place] [address] Test Name Platelet Antibo Invalid Interpretation Code [facility] Comment on above: Performed By: #### 1 [id number] ####[address] [place] [address] Oncology Noteon 05-13-2023 Oncology Note Normal [facility] Comment on above: Result Comment: Elec tronically Signed By: Maria M MATOS, Ana Luisa Shepherd\.aidee\Date and Time Signed: 05/13/23 11:13 EDT Oncology Progress Noteon Oncology Progress Note Normal [facility] Oncology Progress Note Normal [facility] Platelet Counton 05-13-2023 Platelets (Bld) [#/Vol] 99.0 E9/L Low 150.0-500.0 [facility] Comment on above: Order Comment: citra enid tube Result Comment: Slid e reviewed by ANU. Performed By: #### 1 [id number], 7443699582, 9965758883, 7545090, 7789483793, 090818602, 3745531099 ####[facility] [address] [place] [address] Reference Laboratory Testing Ordered By: Louann Girard on 05-13-2023 Test Code [id number] Invalid Interpretation Code [facility] Test Name Platelet Antibo Invalid Interpretation Code [facility] Consenton 05-02-2023 Consent [id number]:127 Normal [facility] Lab Miscellaneous-LCon 05-02 Lab Miscellaneous COMMENT Invalid Interpretation Code [facility] Comment on above: Order Comment: CPT - 90841, 49536w5, 98243, 95431, 40716w8, 46785 Result Comment: Test Ordered: 132046 Flow Cytometry PNHInterpretation: Comment ;#Peripheral Blood:No evidence of paroxysmal nocturnal hemoglobinuria (PNH)DISCLAIMER: REFER TO HARDCOPY OR PDF FOR COMPLETE RESULT.If synopsis provided, clinical decisions should not bebased on this interfaced synopsis alone.Performed at: [address] [id number] PhD David Alexandra Performed By: #### 1 [id number] ####[facility] [address] [place] [address] ILANA w/Reflex if POSon 2022 Nuclear Ab Ql (S) Negative Invalid Interpretation Code Negative [facility] Comment on above: Result Comment: Perf ormed at: [facility] [place], [place] [id number] PhD David Alexandra Performed By: #### 1 8694022, 3727950, 71154757, 51212910, 4683727, 0574739, 5514525, 2909641, 82790656, 1045426, 9063971, 4186369, 2717718, 2112374 ####[facility] [address] [place] [address] Copper Lvlon 05-01-2023 Copper [Mass/Vol] 118 microgram/dL Invalid Interpretation Code 80-158 [facility] Comment on above: Result Comment: This test was developed and its performance characteristicsdetermined by [facility]. It has not been cleared or approvedby the Food and Drug Administration.Detection Limit = 5Performed at: [address] [id number] MD Christiano Kolb Performed By: #### 1 0874941, 5129254, 96376234, 45440146, 5752985, 3218028, 1699960, 8834858, 43972737, 3437251, 1213991, 3565094, 4683289, 4936624 ####[facility] [address] [place] [address] RF Quanton 05-01-2023 Rheumatoid factor Qn [IU]/mL Invalid Interpretation Code <14.0 [facility] Comment on above: Result Comment: Perf ormed at: [facility] [place], [place] [id number] PhD David Alexandra Performed By: #### 1 3949646, 7547935, 23612218, 24651051, 6369385, 5472436, 1907560, 7642208, 09648587, 1591040, 2441182, 5081323, 8268295, 7283359 ####[facility] [address] [place] [address] Auto Diffon 04-29-2023 Basophils/100 WBC (Bld) 1.1 % Normal 0.0-2.0 [facility] Comment on above: Order Comment: Order Added by Discern Expert. Performed By: #### 1 8497439, 4138380, 81706769, 71390212, 6906422, 7403364, 2226453, 9280466, 64879571, 4252919, 3678361, 0698144, 6494980, 3556088 ####[facility] [address] [place] [address] Basophils/Leukocyt es Auto (Bld) [Pure # fraction] 0.0 E9/L Normal 0.0-0.2 [facility] Comment on above: Order Comment: Order Added by Discern Expert. Performed By: #### 1 9611886, 5794471, 49436080, 77758860, 3514276, 2319618, 5551933, 6941498, 13420579, 8319507, 1652974, 6397987, 0480553, 4756831 ####[address] [place] [address] Eosinophils/100 WBC (Bld) 4.5 % Normal 0.0-8.0 [facility] Comment on above: Order Comment: Order Added by Discern Expert. Performed By: #### 1 5807434, 7060213, 02343096, 17718525, 0976208, 9651648, 1194298, 1552555, 34478074, 4574866, 7391286, 5825457, 5800154, 1421118 ####[facility] [address] [place] [address] Eosinophils/Leukoc ytes Auto (Bld) [Pure # fraction] 0.2 E9/L Normal 0.0-0.5 [facility] Comment on above: Order Comment: Order Added by Discern Expert. Performed By: #### 1 4612196, 6399224, 79596118, 17774742, 5529503, 1612123, 5458376, 0083472, 91511034, 7386650, 4509628, 3234762, 4375090, 9316791 ####[facility] [address] [place] [address] Lymphocytes/100 WBC (Bld) 23.0 % Normal 14.0-50.0 [facility] Comment on above: Order Comment: Order Added by Discern Expert. Performed By: #### 1 6657061, 1231933, 04278364, 27571887, 0014915, 9527902, 5252614, 3575822, 47204780, 0955002, 1656295, 6240700, 5942327, 4981852 ####[facility] [address] [place] [address] Lymphocytes/Leukoc ytes Auto (Bld) [Pure # fraction] 0.8 E9/L Low 1.0-4.0 [facility] Comment on above: Order Comment: Order Added by Discern Expert. Performed By: #### 1 7285326, 1204136, 17481409, 43186617, 1391347, 0632451, 9173721, 8908223, 46764255, 2831226, 9461234, 9503978, 0542913, 7743258 ####[address] [place] [address] Monocytes/100 WBC (Bld) 10.7 % Normal 4.0-14.0 [facility] Comment on above: Order Comment: Order Added by Discern Expert. Performed By: #### 1 5244335, 4356804, 60543234, 78463836, 4794511, 1816784, 9362582, 4317820, 58982589, 2240442, 1773816, 0501954, 4881612, 7431349 ####[facility] [address] [place] [address] Monocytes/Leukocyt es Auto (Bld) [Pure # fraction] 0.4 E9/L Normal 0.2-1.0 [facility] Comment on above: Order Comment: Order Added by Discern Expert. Performed By: #### 1 5424458, 8053991, 20519452, 30178166, 9122045, 1999000, 8544923, 5148339, 75009183, 4703244, 9226466, 0715060, 4022053, 6327429 ####[facility] [address] [place] [address] Neutrophils/100 WBC (Bld) 60.7 % Normal 36.0-75.0 [facility] Comment on above: Order Comment: Order Added by Discern Expert. Performed By: #### 1 4971220, 1227447, 70763542, 02670152, 6290477, 6212128, 1229397, 4651000, 73353830, 8748870, 0160395, 5510049, 9391149, 8156995 ####[facility] [address] [place] [address] Neutrophils/Leukoc ytes Auto (Bld) [Pure # fraction] 2.1 E9/L Normal 2.0-7.5 [facility] Comment on above: Order Comment: Order Added by Discern Expert. Performed By: #### 1 0299191, 6282742, 75054603, 51138854, 3367502, 4111101, 3362415, 1766041, 89400719, 1463723, 5782832, 6843768, 3787085, 5475578 ####[facility] [address] [place] [address] CBC w/ Auto Diffon 3 Erythrocyte distribution width (RBC) [Ratio] 13.3 % Normal 10.9-14.2 [facility] Comment on above: Performed By: #### 1 2897912, 2207254, 98007171, 69243124, 8595718, 6986114, 2995303, 6264713, 61824237, 8551721, 7404007, 0392760, 7245537, 2285290 ####[facility] [address] [place] [address] Hematocrit (Bld) [Volume fraction] 36.7 % Normal 34.0-46.0 [facility] Comment on above: Performed By: #### 1 1543607, 4513985, 50160926, 27362628, 5265682, 8963777, 7689535, 7730275, 42137651, 6937378, 4896447, 6619598, 2034050, 7450342 ####[address] [place] [address] Hemoglobin (Bld) [Mass/Vol] 12.5 g/dL Normal 12.0-16.0 [facility] Comment on above: Performed By: #### 1 9351033, 4307978, 70984995, 95030698, 3048357, 9108645, 3266758, 0188397, 46943680, 2465218, 3202718, 8476495, 1804258, 1086126 ####[address] [place] [address] MCH (RBC) [Entitic mass] 31.2 pg Normal 27.0-34.0 [facility] Comment on above: Performed By: #### 1 8720180, 8352371, 97011447, 29639259, 2487321, 7583996, 0251158, 5255482, 17641223, 8459605, 9808958, 8647737, 6524908, 0555131 ####[address] [address] MCHC (RBC) [Mass/Vol] 34.0 g/dL Normal 31.4-36.0 [facility] Comment on above: Performed By: #### 1 0884325, 6190797, 49577159, 35507301, 2371252, 2165409, 8215223, 0650471, 63582421, 7131641, 5616404, 2456335, 2133134, 4281140 ####[address] [address] MCV (RBC) [Entitic vol] 91.6 fL Normal 80.0-100.0 [facility] Comment on above: Performed By: #### 1 3681596, 4280967, 50841559, 44714978, 1242083, 1583220, 3323147, 4257422, 04916022, 4695278, 3951867, 7902921, 1777337, 4027838 ####[address] [place] [address] Platelet mean volume (Bld) [Entitic vol] 9.0 fL Normal 6.4-10.8 [facility] Comment on above: Performed By: #### 1 7485210, 2183020, 96316618, 96825951, 8232034, 6625702, 2575527, 7416492, 14555840, 5615335, 9300730, 3877932, 6926648, 3930121 ####[address] [place] [address] Platelets (Bld) [#/Vol] 89.0 E9/L Low 150.0-500.0 [facility] Comment on above: Result Comment: Slid e reviewed by d[place] platelets. Performed By: #### 1 9422308, 1185436, 69145104, 60215382, 5324470, 9799065, 2526260, 7707786, 45145179, 2607368, 3670624, 5700223, 6443783, 9883522 ####[address] [address] RBC (Bld) [#/Vol] 4.0 E12/L Low 4.3-5.9 [facility] Comment on above: Performed By: #### 1 2015515, 5863033, 52162526, 60581123, 1475139, 9583763, 2874794, 0133779, 38589237, 0933950, 3596212, 4365064, 2535154, 9649415 ####[facility] [address] [place] [address] WBC corrected for nucl RBC Auto (Bld) [#/Vol] 3.5 E9/L Low 4.0-11.0 [facility] Comment on above: Performed By: #### 1 2939077, 7098448, 92982272, 57066721, 0935314, 6928298, 6245754, 0845076, 40208528, 3772363, 0898028, 1076295, 6300980, 1726519 ####[facility] [address] [place] [address] CMPon 04-29-2023 Albumin [Mass/Vol] 3.6 g/dL Normal 3.3-5.0 [facility] Comment on above: Performed By: #### 1 7031514, 1034434, 79772002, 37426879, 4019280, 0769905, 1564597, 3539490, 14835983, 7196098, 2966803, 5824578, 9861726, 3879972 ####[facility] [address] [place] [address] Albumin/Globulin (S) [Mass conc ratio] 1.0 Low 1.1-2.2 [facility] Comment on above: Performed By: #### 1 1184646, 9310496, 12514236, 01121147, 9732082, 0220318, 2240387, 2748069, 06808579, 4555128, 9536229, 4047344, 1606438, 5151377 ####[address] [place] [address] ALP [Catalytic activity/Vol] 76 Int._Unit/L Normal 21-98 [facility] Comment on above: Performed By: #### 1 3255172, 4800140, 76657354, 99026718, 9604021, 6419500, 1010629, 1086404, 75579589, 8772636, 7163578, 2873417, 3700158, 6032194 ####[address] [place] [address] ALT No additional P-5'-P [Catalytic activity/Vol] 23 Int._Unit/L Normal 6-46 [facility] Comment on above: Performed By: #### 1 3278547, 6947072, 89222483, 19625169, 4725669, 7976787, 2201794, 3793260, 94910680, 8181669, 0255736, 8004691, 9060958, 0707359 ####[address] [place] [address] Anion gap [Moles/Vol] 15 mmol/L Normal 6-16 [facility] Comment on above: Performed By: #### 1 7697080, 7711440, 53912306, 67363969, 4655718, 5215183, 8346888, 0934048, 26983622, 4206610, 5728905, 9044830, 0984530, 8942139 ####[facility] [address] [place] [address] AST [Catalytic activity/Vol] 44 Int._Unit/L High 5-43 [facility] Comment on above: Performed By: #### 1 1290122, 5121068, 14885429, 01414403, 8785012, 8954823, 7707779, 2406538, 34867228, 1292642, 2037820, 7158890, 0049756, 2481410 ####[facility] [address] [place] [address] Bilirubin [Mass/Vol] 1.2 mg/dL High 0.0-1.1 [facility] Comment on above: Performed By: #### 1 1530013, 7087310, 26835644, 42651138, 7301292, 4513248, 4380553, 4514358, 45931033, 6857276, 8984684, 2439183, 0085385, 1115835 ####[facility] [address] [place] [address] Calcium [Mass/Vol] 9.3 mg/dL Normal 8.9-11.1 [facility] Comment on above: Performed By: #### 1 6647374, 6114718, 64830738, 11989413, 6931872, 9276583, 1587690, 7093581, 00586489, 2099660, 8469119, 3501101, 9732169, 4569220 ####[facility] [address] [place] [address] Chloride [Moles/Vol] 105 mmol/L Normal 101-111 [facility] Comment on above: Performed By: #### 1 4238619, 4404775, 66830104, 37946443, 2615931, 6588279, 9379188, 3190281, 31625570, 4405623, 8023146, 7641466, 3035951, 8038390 ####[facility] [address] [place] [address] CO2 [Moles/Vol] 23 mmol/L Normal 21-31 [facility] Comment on above: Performed By: #### 1 6793430, 2508952, 57609067, 64698651, 8137846, 3562426, 6924158, 4338401, 60645032, 5005924, 4420566, 6638218, 7178827, 4589245 ####[facility] [address] [place] [address] Creatinine [Mass/Vol] 1.1 mg/dL Normal 0.5-1.3 [facility] Comment on above: Performed By: #### 1 0850568, 1181617, 40643867, 35532213, 4128698, 1777290, 8979694, 2004217, 82933996, 6261498, 6061657, 7014871, 6118051, 0645617 ####[facility] [address] [place] [address] Globulin (S) [Mass/Vol] 3.5 g/dL Normal 1.4-4.0 [facility] Comment on above: Performed By: #### 1 3741026, 9932041, 99717375, 28493332, 0620029, 2721484, 4902973, 9997250, 24591397, 6837677, 7442621, 8969918, 6059557, 4253896 ####[facility] [address] [place] [address] Glucose [Mass/Vol] 155 mg/dL Normal 55-199 [facility] Comment on above: Result Comment: If t his glucose result represents a fasting glucose, interpretation should refer to the following reference range: 55-99 mg/dL Performed By: #### 1 4473650, 4081247, 41223881, 11823340, 8037510, 3272283, 4176566, 2631159, 01736236, 8158733, 0624672, 2000256, 4608413, 6142733 ####[facility] [address] [place] [address] Potassium [Moles/Vol] 3.5 mmol/L Normal 3.5-5.3 [facility] Comment on above: Performed By: #### 1 7561625, 4380620, 55656057, 66637983, 8452946, 5503614, 8923230, 1439496, 60227720, 7746861, 1548751, 1730720, 7758058, 9026252 ####[facility] [address] [place] [address] Protein [Mass/Vol] 7.1 g/dL Normal 6.0-7.8 [facility] Comment on above: Performed By: #### 1 8610248, 2924484, 35196023, 88266568, 5522932, 4637103, 7063494, 5949199, 23731298, 1530953, 8278254, 1883256, 8915504, 8085521 ####[address] [place] [address] Sodium [Moles/Vol] 139 mmol/L Normal 135-145 [facility] Comment on above: Performed By: #### 1 0661131, 9299651, 81447972, 60025820, 4962866, 2446133, 1079429, 7295195, 61560622, 2931110, 9678877, 6179830, 2391768, 3414523 ####[facility] [address] [place] [address] Urea nitrogen [Mass/Vol] 13 mg/dL Normal 5-21 [facility] Comment on above: Performed By: #### 1 2479720, 1874800, 27468401, 75433586, 3796210, 7769431, 4771237, 8136088, 37354154, 3052040, 5264513, 9601088, 3853274, 0560523 ####[facility] [address] [place] [address] Urea nitrogen/Creatinin e [Mass ratio] 12 No Units Normal 10-20 [facility] Comment on above: Performed By: #### 1 4747084, 0391306, 38295126, 98551678, 4172645, 6726816, 7847929, 3026429, 75636914, 2253785, 4881211, 1661851, 2693141, 7343415 ####[facility] [address] [place] [address] Consent for Treatmenton 04-12 Consent for Treatment [id number]:127 Normal [facility] Consent for Treatment [id number]:127 Normal [facility] DATon 04-29-2023 LETICIA IgG/C3d Gel Interp Negative Normal [facility] Comment on above: Performed By: #### 1 3450942 ####[facility] [address] [place] [address] Ferritinon 04-29-2023 Ferritin [Mass/Vol] 45 ng/mL Normal 11-307 [facility] Comment on above: Result Comment: NORM ALS MEN <30 YRS 16-132 ng/mL MEN >30 YRS 8-338 ng/mL WOMEN (PREMEN) 6-104 ng/mL WOMEN (POSTMEN) 12-210 ng/mL Performed By: #### 1 9270837, 2805945, 50841692, 61409869, 5497565, 7100426, 7134947, 6437110, 64571246, 8461657, 1258081, 5832746, 5838164, 1085057 ####[facility] [address] [place] [address] Folateon 04-29-2023 Folate [Mass/Vol] 12.6 ng/mL Normal >=6.7 [facility] Comment on above: Performed By: #### 1 8341832, 3948209, 95848164, 90552627, 5044810, 7800264, 6072043, 6272430, 85042683, 5011824, 8339761, 6582743, 5939510, 7883349 ####[facility] [address] [place] [address] Ironon 04-29-2023 Iron [Mass/Vol] 128 microgram/dL Normal 35-153 [facility] Comment on above: Performed By: #### 1 2720883, 7247498, 52954153, 81231225, 3523076, 4145409, 9331530, 5254179, 78927198, 8234538, 0670219, 0412640, 3293868, 5659283 ####[address] [place] [address] Iron Saturationon 04-29-2023 Iron binding capacity [Mass/Vol] 391 microgram/dL Normal 250-400 [facility] Comment on above: Performed By: #### 1 [id number], [id number], 10627320, 72933118, 3154562, 4592270, 1786962, 7593767, 82684895, 1087432, 7354072, 4368215, 0266854, 8054016 ####[address] [address] Iron saturation [Mass fraction] 33 % Normal 20-50 [facility] Comment on above: Performed By: #### 1 [id number], 4753255, 87884174, 95183666, 1128088, 2859954, 0173503, 6747949, 56634672, 6837826, 2008552, 9763893, 2352963, 2681633 ####[facility] [address] [place] [address] LDHon 04-29-2023 LDH [Catalytic activity/Vol] 195 Int._Unit/L Normal 93-218 [facility] Comment on above: Performed By: #### 1 [id number], 4774394, 63168261, 88496684, 0019714, 5151300, 5807308, 4127092, 14807995, 2992213, 0748374, 3502646, 1519321, 8536830 ####[id number] [place] [address] Lab Miscellaneous-LCon 04-29 Test Code 086313 Invalid Interpretation Code [facility] Comment on above: Order Comment: CPT - 06587, 40528v0, 50343, 33494, 91291m5, 82549 Performed By: #### 1 [id number] ####[facility] [address] [place] [address] Test Name PNH Flow Cytome Invalid Interpretation Code [facility] Comment on above: Order Comment: CPT - 56511, 07558w8, 74623, 45325, 33889x4, 47263 Performed By: #### 1 [id number] ####[facility] [address] [place] [address] Oncology Noteon 04-29-2023 Oncology Note Normal [facility] Comment on above: Result Comment: Elec tronically Signed By: Maria M MATOS, Ana Luisa Morel.br\Date and Time Signed: 04/29/23 10:56 EDT Transferrinon 04-29-2023 Transferrin [Mass/Vol] 279 mg/dL Normal 200-370 [facility] Comment on above: Performed By: #### 1 [id number], 8764772, 85741474, 10617841, 2906857, 3366104, 9807788, 1681282, 30726619, 3550927, 7808156, 2722676, 7560821, 2691791 ####[facility] [address] [place] [address] Vit B12on 04-29-2023 Cobalamin (Vitamin B12) [Mass/Vol] 549 pg/mL Normal 50-1500 [facility] Comment on above: Performed By: #### 1 [id number], 0231780, 78806987, 40589423, 4429212, 9753721, 3136332, 5654439, 22818220, 4314682, 6548190, 8880845, 6601866, 7283065 ####[facility] [address] [place] [address] eGFRon 04-29-2023 GFR/1.73 sq M.predicted among non-blacks MDRD (S/P/Bld) [Vol rate/Area] 54 mL/min/1.73 m2 Low >=59 [facility] Comment on above: Order Comment: Order added by Discern Expert. Result Comment: Crowd Controller annabella kidney disease could be indicated at eGFR's of less than 60 mL/min/1.73m2. Kidney failure is indicated at less than 15 mL/min/1.73m2. Performed By: #### 1 [id number], 2725657, 39808459, 90433182, 4432668, 1258504, 7937366, 5774571, 79783158, 0608382, 4082654, 5201349, 7313508, 6433303 ####[facility] [address] [place] [address] CHEMISTRYOrdered By: SYSTEM SYSTEM on 03-17-2023 Albumin [...] 8.9 fL Normal 6.4 - 10.8 fL [facility] HemeAutoSS Platelets (Bld) [#/Vol] 101.0 E9/L Low 150.0 - 500.0 E9/L FT HemeAutoSS RBC (Bld) [#/Vol] 4.0 E12/L Low 4.3 - 5.9 E12/L FT HemeAutoSS WBC corrected for nucl RBC Auto (Bld) [#/Vol] 3.0 E9/L Low 4.0 - 11.0 E9/L [facility] HemeAutoSS FREE T3on 09-18-2022 FREE T3 1.81 pg/mlL Critically low 2.18-3.[address] [facility] Comment on above: Performed By: #### T SH, FT3 #### [facility] [address] [place] [address] Dr. Jt Waite FREE T4on 09-18-2022 Free T4 [Mass/Vol] 1.19 ng/dL Normal 0.76-1.[address] [facility] Comment on above: Performed By: #### F T4 #### [facility] [address] [place] [address] Dr. Jt Waite GLYCOHEMOGLOBIN A1Con 2021 ADA RECOMMENDATION SEE BELOW Normal [facility] Comment on above: Result Comment: ADA RECOMMENDED LIMIT 4.0 - 6.0 ADA THERAPEUTIC TARGET < 7.0 ACTION SUGGESTED > 7.0 Performed By: #### A 1C #### [facility] [address] [place] [address] Dr. Jt Waite Glucose [Mass/Vol] 146 mg/dL Normal [facility] Comment on above: Performed By: #### A 1C #### [facility] [address] [place] [address] Dr. Jt Waite HbA1c (Bld) [Mass fraction] 6.7 % Critically high 4.5-6.2 [facility] Comment on above: Performed By: #### A 1C #### [facility] [address] [place] [address] Dr. Jt Waite TSHon 09-18-2022 TSH 3.693 uIU/mL Normal 0.358-3.740 [facility] Comment on above: Performed By: #### T , FT3 ####[facility] [address] [place], [place] [address]BdDr. Jt Waite CBC AUTO DIFFon 04-03-2022 BASO # 0.0 103/ul Normal 0.0-0.[address] [facility] Comment on above: Performed By: #### C BC #### [facility] [address] [address] [address] Jt Waite Basophils/100 WBC (Bld) 0.9 % Normal 0.2-2.[address] [facility] Comment on above: Performed By: #### C BC #### [facility] [address] [address] [address] Jt Waite EO # 0.1 103/ul Normal 0.0-0.[address] [facility] Comment on above: Performed By: #### C BC #### [facility] [address] [address] [address] Jt Waite Eosinophils/100 WBC (Bld) 3.3 % Normal 0.9-7.[address] [facility] Comment on above: Performed By: #### C BC #### [facility] [address] [address] [address] Jt Waite Erythrocyte distribution width (RBC) [Ratio] 13.1 % Normal 11.0-15.[address] [facility] Comment on above: Performed By: #### C BC #### [facility] [address] [address] [address] Jt Waite Hematocrit (Bld) [Volume fraction] 36.1 % Normal 36.0-48.[address] [facility] Comment on above: Performed By: #### C BC #### [facility] [address] [address] [address] Jt Waite Hemoglobin (Bld) [Mass/Vol] 12.3 g/dL Normal 12.0-16.[address] [facility] Comment on above: Performed By: #### C BC #### [facility] [address] [address] [address] Jt Waite IG # 0.01 10e3/ul Normal 0.00-0.[address] [facility] Comment on above: Performed By: #### C BC #### [facility] [address] [place] [address] Dr. Jt Waite IG % 0.3 % Normal 0.0-0.[address] [facility] Comment on above: Performed By: #### C BC #### [facility] [address] [place] [address] Dr. Jt Waite LYMPH # 1.2 103/ul Normal 1.2-3.[address] [facility] Comment on above: Performed By: #### C BC #### [facility] [address] [place] [address] Dr. Jt Waite Lymphocytes/100 WBC (Bld) 35.4 % Normal 20.5-60.[address] [facility] Comment on above: Performed By: #### C BC #### [facility] [address] [place] [address] Dr. Jt Waite MANUAL DIFF REQ NO Normal [facility] Comment on above: Performed By: #### C BC #### [facility] [address] [place] [address] Dr. Jt Waite MCH (RBC) [Entitic mass] 31.0 pg Normal 26.7-34.[address] [facility] Comment on above: Performed By: #### C BC #### [facility] [address] [place] [address] Dr. Jt Waite MCHC (RBC) [Mass/Vol] 34.1 g/dL Normal 29.9-35.[address] [facility] Comment on above: Performed By: #### C BC #### [facility] [address] [place] [address] Dr. Jt Waite MCV (RBC) [Entitic vol] 90.9 fL Normal 81.0-99.0 [facility] Comment on above: Performed By: #### C BC #### [facility] [address] [place] [address] Dr. Jt Waite MONO # 0.3 103/ul Normal 0.3-0.[address] [facility] Comment on above: Performed By: #### C BC #### [facility] [address] [place] [address] Dr. Jt Waite Monocytes/100 WBC (Bld) 9.3 % Normal 1.7-12.[address] [facility] Comment on above: Performed By: #### C BC #### [facility] [address] [address] [address] Jt Waite NEUT # 1.7 103/ul Normal 1.4-6.[address] [facility] Comment on above: Performed By: #### C BC #### [facility] [address] [place] [address] Dr. Jt Waite Neutrophils/100 WBC (Bld) 50.8 % Normal 43.0-75.[address] [facility] Comment on above: Performed By: #### C BC #### [facility] [address] [place] [address] Dr. Jt Waite Platelet mean volume (Bld) [Entitic vol] 10.2 fL Normal 9.5-13.[address] [facility] Comment on above: Performed By: #### C BC #### [facility] [address] [place] [address] Dr. Jt Waite PLT 96 103/ul Critically low 150-[address] [facility] Comment on above: Performed By: #### C BC #### [facility] [address] [place] [address] Dr. Jt Waite RBC 3.97 106/ul Critically low 4.20-5.40 [facility] Comment on above: Performed By: #### C BC #### [facility] [address] [place] [address] Dr. Jt Waite WBC 3.3 103/ul Critically low 4.0-11.0 [facility] Comment on above: Performed By: #### C BC #### [facility] [address] [place] [address] Dr. Jt Waite GLYCOHEMOGLOBIN A1Con 2021 ADA RECOMMENDATION SEE BELOW Normal [facility] Comment on above: Result Comment: ADA RECOMMENDED LIMIT 4.0 - 6.0 ADA THERAPEUTIC TARGET < 7.0 ACTION SUGGESTED > 7.0 Performed By: #### A 1C #### [facility] [address] [place] [address] Dr. Jt Waite Glucose [Mass/Vol] 120 mg/dL Normal [facility] Comment on above: Performed By: #### A 1C #### [facility] [address] [place] [address] Dr. Jt Waite HbA1c (Bld) [Mass fraction] 5.8 % Normal 4.5-6.[address] [facility] Comment on above: Performed By: #### A 1C #### [facility] [address] [place] [address] Dr. Jt Waite LIPID PROFILEon 04-03-2022 CHOL-HDL RATIO NORM SEE BELOW Normal [facility] Comment on above: Result Comment: 3.3 - 4.4 LOW RISK 4.4 - 7.1 AVERAGE RISK 7.1 - 11.0 MODERATE RISK >11.0 HIGH RISK Performed By: #### C MP, LIPID #### [facility] [address] [place] [address] Dr. Jt Waite Cholesterol [Mass/Vol] 133 mg/dL Normal <=200 [facility] Comment on above: Performed By: #### C MP, LIPID #### [facility] [address] [place] [address] Dr. Jt Waite Cholesterol in HDL [Mass/Vol] 37 mg/dL Critically low 40-[address] [facility] Comment on above: Performed By: #### C MP, LIPID #### [facility] [address] [place] [address] Dr. Jt Waite Cholesterol in LDL [Mass/Vol] 81.0 mg/dL Normal [facility] Comment on above: Performed By: #### C MP, LIPID #### [facility] [address] [place] [address] Dr. Jt Waite Cholesterol.total/ Cholesterol in HDL [Mass ratio] 3.6 {ratio} Normal [facility] Comment on above: Performed By: #### C MP, LIPID #### [facility] [address] [place] [address] Dr. Jt Waite HDL NORMAL > or = 60 mg/dl - LO W CARDIOVASCULAR RISK <40 mg/dl - HIGH CARDIOVASCULAR RISK Normal [facility] Comment on above: Performed By: #### C MP, LIPID #### [facility] [address] [place] [address] Dr. Jt Waite LDL CALC NORMAL SEE BELOW Normal [facility] Comment on above: Result Comment: <100 mg/dl OPTIMAL 100 - 129 mg/dl NEAR OR ABOVE OPTIMAL 130 - 159 mg/dl BORDERLINE HIGH 160 - 189 mg/dl HIGH >190 mg/dl VERY HIGH Performed By: #### C MP, LIPID #### [facility] [address] [place] [address] Dr. Jt Waite Triglyceride [Mass/Vol] 75 mg/dL Normal <=[address] [facility] Comment on above: Performed By: #### C MP, LIPID #### [facility] [address] [place] [address] Dr. Jt Waite VLDL CALC 15.0 mg/dL Normal [facility] Comment on above: Performed By: #### C MP, LIPID #### [facility] [address] [place] [address] Dr. Jt Waite PROF 14(COMP METB)on 022 Albumin [Mass/Vol] 3.4 g/dL Normal 3.4-5.[address] [facility] Comment on above: Performed By: #### C MP, LIPID #### [facility] [address] [place] [address] Dr. Jt Waite Albumin/Globulin [Mass ratio] 0.9 {ratio} Normal [facility] Comment on above: Performed By: #### C MP, LIPID #### [facility] [address] [place] [address] Dr. Jt Waite ALP [Catalytic activity/Vol] 82 U/L Normal 46-[address] [facility] Comment on above: Performed By: #### C MP, LIPID #### [facility] [address] [place] [address] Dr. Jt Waite ALT [Catalytic activity/Vol] 24 U/L Normal 14-[address] [facility] Comment on above: Performed By: #### C MP, LIPID #### [facility] [address] [address] [address] Jt Waite Anion gap [Moles/Vol] 13.1 mmol/L Normal [facility] Comment on above: Performed By: #### C MP, LIPID #### [facility] [address] [address] [address] Jt Waite AST [Catalytic activity/Vol] 31 U/L Normal 15-37 [facility] Comment on above: Performed By: #### C MP, LIPID #### [facility] [address] [address] [address] Jt Waite Bilirubin [Mass/Vol] 1.0 mg/dL Normal 0.2-1.[address] [facility] Comment on above: Performed By: #### C MP, LIPID #### [facility] [address] [place] [address] Dr. Jt Waite Calcium [Mass/Vol] 9.1 mg/dL Normal 8.5-10.[address] [facility] Comment on above: Performed By: #### C MP, LIPID #### [facility] [address] [address] [address] Jt Waite Chloride [Moles/Vol] 105 mmol/L Normal 98-[address] [facility] Comment on above: Performed By: #### C MP, LIPID #### [facility] [address] [place] [address] Dr. Jt Waite CO2 [Moles/Vol] 27.4 mmol/L Normal 21.0-32.0 [facility] Comment on above: Performed By: #### C MP, LIPID #### [facility] [address] [address] [address] Jt Waite Creatinine [Mass/Vol] 1.03 mg/dL Critically high 0.55-1.[address] [facility] Comment on above: Performed By: #### C MP, LIPID #### [facility] [address] [address] [address] Jt Waite EGFR-AF FINNISH >60 Normal >=60 [facility] Comment on above: Performed By: #### C MP, LIPID #### [facility] [address] [address] [address] Jt Waite EGFR-NON AF FINNISH 53 mL/min/1.73m2 Critically low >=[address] [facility] Comment on above: Performed By: #### C MP, LIPID #### [facility] [address] [address] [address] Jt Waite Globulin (S) [Mass/Vol] 3.7 g/dL Normal [facility] Comment on above: Performed By: #### C MP, LIPID #### [facility] [address] [address] [address] Jt Waite Glucose [Mass/Vol] 100 mg/dL Normal 74-[address] [facility] Comment on above: Performed By: #### C MP, LIPID #### [facility] [address] [address] [address] Jt Waite Potassium [Moles/Vol] 3.5 mmol/L Normal 3.5-5.1 [facility] Comment on above: Performed By: #### C MP, LIPID #### [facility] [address] [address] [address] Jt Waite Protein [Mass/Vol] 7.1 g/dL Normal 6.4-8.2 [facility] Comment on above: Performed By: #### C MP, LIPID #### [facility] [address] [address] [address] Jt Waite Sodium [Moles/Vol] 142 mmol/L Normal 136-145 [facility] Comment on above: Performed By: #### C MP, LIPID #### [facility] [address] [address] [address] Jt Waite Urea nitrogen [Mass/Vol] 23.0 mg/dL Critically high 7.0-18.[address] [facility] Comment on above: Performed By: #### C MP, LIPID #### [facility] [address] [address] [address] Jt Waite Urea nitrogen/Creatinin e [Mass ratio] 22.3 mg/mg Normal [facility] Comment on above: Performed By: #### C MP, LIPID #### [facility] [address] [address] [address] Jt Waite D-DIMERon 03-15-2022 D-DIMER 0.32 mg/L FEU Normal <=0.[address] [facility] Comment on above: Performed By: #### D DIM #### [facility] [address] [place] [address] Dr. Jt Waite D-DIMER COMMENTS SEE BELOW Normal [facility] Comment on above: Result Comment: Incr [...] hospitalization. Performed By: #### D DIM #### [facility] [address] [place] [address] Dr. Jt Waite ECHOCARDIO M/2D COMPLETEon 0 03-12-2022 ECHOCARDIO M/2D COMPLETE Patient: MISA SANTOS Exam Date: 03/12/2022 : 1955 Gender:F Ordering : HOLLY VALDOVINOS Admission #: [id number] Family : Order #: [id number] CLICK HERE TO VIEW EXAM ECHOCARDIOGRAM REPORT [...] Area(A4C): 25.20 cm2 Left Atrium Systolic Volume(A2C): 67824 mm3 Left Atrium Systolic Volume(A4C): 47168 mm3 Mitral Valve MV E to A [...] on 03/12/2022 at 19:[address] [facility] GLYCOHEMOGLOBIN A1Con 2020 ADA RECOMMENDATION ADA THERAPEUTIC TARG ET 6.0 - 7.0 ACTION SUGGESTED > 7.[address] [facility] Comment on above: Performed By: #### A 1C #### [facility] [address] [address] [address] Jt Waite Glucose [Mass/Vol] 140 mg/dL Normal [facility] Comment on above: Performed By: #### A 1C #### [facility] [address] [address] [address] Jt Waite HbA1c (Bld) [Mass fraction] 6.5 % Critically high <=6.[address] [facility] Comment on above: Performed By: #### A 1C #### [facility] [address] [address] [address] Jt Waite Vital Signs Date Time Vital Sign Value Performing Clinician Facility 03-15-2024 09:57-0400 Body temperature 97.52 [degF] d Al-Marrawi [facility] 03-15-2024 09:57-0400 Diastolic blood pressure 82 mm[Hg] d Al-Marrawi [facility] 03-15-2024 09:57-0400 Heart rate 64 /min d Al-Marrawi [facility] 03-15-2024 09:57-0400 Mean blood pressure 94 mm[Hg] d Al-Marrawi [facility] 03-15-2024 09:57-0400 Respiratory rate 16 /min d Al-Marrawi [facility] 03-15-2024 09:57-0400 SaO2% (BldA) [Mass fraction] 93 % Mhd Al[facility]raw[facility] 03-15-2024 09:57-0400 Systolic blood pressure 118 mm[Hg] Mhd Al-Marraw[facility] 03-02-2024 12:19-0400 Blood Pressure Location Cabrera Sarmini [facility] 03-02-2024 12:19-0400 Diastolic blood pressure 84 mm[Hg] Cabrera Sarmini [facility] 03-02-2024 12:19-0400 Heart rate 78 /min Cabrera Sarmini [facility] 03-02-2024 12:19-0400 Respiratory rate 18 /min Cabrera Sarmini [facility] 03-02-2024 12:19-0400 Systolic blood pressure 120 mm[Hg] Cabrera Sarmini [facility] 02-06-2024 11:25-0400 Blood Pressure Location Cabrera Sarmini [facility] 02-06-2024 11:25-0400 Diastolic blood pressure 72 mm[Hg] Cabrera Sarmini [facility] 02-06-2024 11:25-0400 Heart rate 54 /min Cabrera Sarmini [facility] 02-06-2024 11:25-0400 Mean blood pressure 90 mm[Hg] Cabrera Sarmini [facility] 02-06-2024 11:25-0400 Respiratory rate 14 /min Cabrera Sarmini [facility] 02-06-2024 11:25-0400 SaO2% (BldA) [Mass fraction] 96 % Cabrera Sarmini [facility] 02-06-2024 11:25-0400 Systolic blood pressure 125 mm[Hg] Cabrera Sarmini [facility] 02-06-2024 11:15-0400 Blood Pressure Location Cabrera Sarmini [facility] 02-06-2024 11:15-0400 Diastolic blood pressure 68 mm[Hg] Cabrera Sarmini [facility] 02-06-2024 11:15-0400 Heart rate 58 /min Cabrera Sarmini [facility] 02-06-2024 11:15-0400 Mean blood pressure 84 mm[Hg] Cabrera Sarmini [facility] 02-06-2024 11:15-0400 Respiratory rate 27 /min Cabrera Sarmini [facility] 02-06-2024 11:15-0400 SaO2% (BldA) [Mass fraction] 96 % Cabrera Sarmini [facility] 02-06-2024 11:15-0400 Systolic blood pressure 115 mm[Hg] Cabrera Sarmini [facility] 02-06-2024 11:10-0400 Blood Pressure Location Cabrera Sarmini [facility] 02-06-2024 11:10-0400 Diastolic blood pressure 72 mm[Hg] Cabrera Sarmini [facility] 02-06-2024 11:10-0400 Heart rate 51 /min Cabrera Sarmini [facility] 02-06-2024 11:10-0400 Mean blood pressure 85 mm[Hg] Cabrera Sarmini [facility] 02-06-2024 11:10-0400 Respiratory rate 18 /min Cabrera Sarmini [facility] 02-06-2024 11:10-0400 SaO2% (BldA) [Mass fraction] 94 % Cabrera Sarmini [facility] 02-06-2024 11:10-0400 Systolic blood pressure 112 mm[Hg] Cabrera Sarmini [facility] 02-06-2024 11:03-0400 Body temperature 97.34 [degF] Cabrera Sarmini [facility] 02-06-2024 10:55-0400 Respiratory rate 17 /min Cabrera Sarmini [facility] 02-06-2024 10:50-0400 Respiratory rate 18 /min Cabrera Sarmini [facility] 02-06-2024 09:23-0400 Body temperature 97.52 [degF] Cabrera Sarmini [facility] 12-15-2023 10:11-0500 Body temperature 97.7 [degF] Mhd Al-Marrawi [facility] 12-15-2023 10:11-0500 Diastolic blood pressure 55 mm[Hg] Mhd Al-Marrawi [facility] 12-15-2023 10:11-0500 Heart rate 53 /min Mhd Al-Marrawi [facility] 12-15-2023 10:11-0500 Mean blood pressure 71 mm[Hg] Mhd Al-Marrawi [facility] 12-15-2023 10:11-0500 Respiratory rate 20 /min Mhd Al-Marrawi [facility] 12-15-2023 10:11-0500 SaO2% (BldA) [Mass fraction] 96 % Mhd Al-Marrawi [facility] 12-15-2023 10:11-0500 Systolic blood pressure 104 mm[Hg] d Or-Marrawi [facility] 10-01-2023 12:37-0500 Blood Pressure Location Ashlie Boston [facility] 10-01-2023 12:37-0500 Body temperature 96.8 [degF] Ashlie [place] [facility] 10-01-2023 12:37-0500 Diastolic blood pressure 79 mm[Hg] Ashlie Boston [facility] 10-01-2023 12:37-0500 Heart rate 55 /min Ashlie Boston [facility] 10-01-2023 12:37-0500 Systolic blood pressure 119 mm[Hg] Ashlie Boston [facility] 07-31-2023 09:49-0400 Blood Pressure Location Ashlie Boston [facility] 07-31-2023 09:49-0400 Body temperature 96.8 [degF] Ashlie Boston [facility] 07-31-2023 09:49-0400 Diastolic blood pressure 67 mm[Hg] Ashlie Boston [facility] 07-31-2023 09:49-0400 Heart rate 59 /min Ashlie Mead [facility] 07-31-2023 09:49-0400 Systolic blood pressure 123 mm[Hg] Ashlie Mead [facility] 06-24-2023 10:12-0400 Heart rate 48 [...] 06-04-2023 13:02-0400 Blood Pressure Location Cabrera Sarmini [facility] 06-04-2023 13:02-0400 Diastolic blood pressure 70 mm[Hg] Cabrera Sarmini [facility] 06-04-2023 13:02-0400 Heart rate 76 /min Cabrera Sarmini [facility] 06-04-2023 13:02-0400 Respiratory rate 16 /min Cabrera Sarmini [facility] 06-04-2023 13:02-0400 Systolic blood pressure 122 mm[Hg] Cabrera Sarmini [facility] 05-13-2023 10:00-0400 Blood Pressure Location Mhd [...] (BldA) [Mass fraction] 96 % d Al-Marrawi [facility] 05-13-2023 10:00-0400 Systolic blood pressure 130 mm[Hg] Mhd Al-Marrawi [facility] 04-29-2023 10:00-0400 Blood Pressure Location [facility] 04-29-2023 10:00-0400 Body temperature 98.06 [degF] [facility] 04-29-2023 10:00-0400 Diastolic blood pressure 72 mm[Hg] [facility] 04-29-2023 10:00-0400 Heart rate 53 /min [facility] 04-29-2023 10:00-0400 Mean blood pressure 89 mm[Hg] [facility] 04-29-2023 10:00-0400 Respiratory rate 18 /min [facility] 04-29-2023 10:00-0400 SaO2% (BldA) [Mass fraction] 96 % [facility] 04-29-2023 10:00-0400 Systolic blood pressure 122 mm[Hg] [facility] Encounters Encounter Date Encounter Type Care Provider Facility Start: 05-21-2024 End: 05-21-2024 ambulatory HUMPHREY HUFFMAN Facility:[facility] Start: 04-12-2024 End: 04-12-2024 ambulatory Willian Barrios Facility[facility] Start: 04-12-2024 End: 04-12-2024 Patient encounter procedure Willian Barrios [facility] Start: 03-29-2024 End: 03-29-2024 ambulatory Willian Barrios Facility:[facility] [place] Start: 03-15-2024 End: 03-15-2024 ambulatory Mhd Yaser Al-Marrawi Facility:[facility] Start: 03-15-2024 End: 03-15-2024 Patient encounter procedure Mhd Yaser Al-Marrawi [facility] Start: 03-09-2024 End: 03-09-2024 ambulatory Mhd Yaser Al-Marrawi Facility:[facility] Start: 03-09-2024 End: 03-09-2024 Patient encounter procedure Mhd Yaser Al-Marrawi [facility] Start: 03-02-2024 End: 03-02-2024 ambulatory Cabrera Talal Sarmini Facility:[facility] Start: 03-02-2024 End: 03-02-2024 Patient encounter procedure Cabrera Talal Sarmini [facility] Start: 02-06-2024 End: 02-06-2024 ambulatory Cabrera Talal Sarmini Facility:[facility] Start: 02-06-2024 End: 02-06-2024 Patient encounter procedure Cabrera Talal Sarmini [facility] Start: 01-02-2024 End: 01-02-2024 ambulatory [employer] Shalini Baumann Facility:[facility] Start: 12-15-2023 End: 12-15-2023 ambulatory Mhd Yaser Al-Marrawi Facility:[facility] Start: 12-15-2023 End: 12-15-2023 Patient encounter procedure Mhd Yaser Al-Marrawi [facility] Start: 12-15-2023 End: 12-15-2023 ambulatory Mhd Yaser Al-Marrawi Facility:[facility] Start: 12-15-2023 End: 12-15-2023 Patient encounter procedure Mhd Yaser Al-Marrawi [facility] Start: 10-01-2023 End: 10-01-2023 ambulatory Ashlie Victoria [place] Facility:[facility] Start: 10-01-2023 End: 10-01-2023 Patient encounter procedure Ashlie Victoria [place] [facility] Start: 09-29-2023 End: 09-29-2023 ambulatory Willian Barrios Facility:[facility] [place] Start: 09-24-2023 End: 09-24-2023 ambulatory Willian Barrios Facility:[facility] [place] Start: 09-17-2023 End: 09-17-2023 ambulatory Willian Barrios Facility:[facility] [place] Start: 09-16-2023 End: 09-16-2023 ambulatory Willian Barrios Facility:[facility] [place] Start: 09-15-2023 End: 09-15-2023 ambulatory Mhd Laney Amin Facility:[facility] Start: 09-15-2023 End: 09-15-2023 Patient encounter procedure Mhd Laney Wilson-Lars [facility] Start: 08-29-2023 End: 08-29-2023 ambulatory Willian Barrios Facility: [facility] [place] Start: 07-31-2023 End: 07-31-2023 ambulatory Ashlie Victoria [place] Facility:[facility] Start: 07-31-2023 End: 07-31-2023 Patient encounter procedure Ashlie Victoria [place] [facility] Start: 07-30-2023 End: 07-30-2023 ambulatory Willian Barrios Facility:[facility] [place] Start: 07-28-2023 End: 08-25-2023 ambulatory Willian Barrios Facility:[id number] Start: 07-24-2023 End: 07-25-2023 ambulatory Lucas PughSyed Bates Facility:[facility] Start: 07-22-2023 End: 07-22-2023 ambulatory Mhd Yaser Al-Marrawi Facility:[facility] Start: 06-30-2023 End: 06-30-2023 Lab Drop off Willian SiegelSyed Denis [facility] Start: 06-30-2023 End: 06-30-2023 ambulatory Willian Barrios Facility:[facility] Start: 06-24-2023 End: 06-24-2023 ambulatory Mhd Yaser Al-Marrawi Facility:[facility] Start: 06-24-2023 End: 06-24-2023 Patient encounter procedure Mhd Yaser Al-Marrawi [facility] Start: 06-17-2023 End: 06-17-2023 ambulatory Mhd Yaser Al-Marrawi Facility:[facility] Start: 06-17-2023 End: 06-17-2023 Patient encounter procedure Mhd Yaser Al-Marrawi [facility] Start: 06-12-2023 End: 06-12-2023 ambulatory Mhd Yaser Al-Marrawi Facility:[facility] Start: 06-12-2023 End: 06-12-2023 Patient encounter procedure Mhd Yaser Al-Marrawi [facility] Start: 06-04-2023 End: 06-04-2023 ambulatory Cabrear Talal Sarmini Facility:[facility] Start: 06-04-2023 End: 06-04-2023 Patient encounter procedure Cabrera Talal Sarmini [facility] Start: 05-29-2023 End: 05-29-2023 ambulatory [facility] Start: 05-27-2023 End: 05-27-2023 ambulatory Mhd Yaser Al-Marrawi Facility:[facility] Start: 05-27-2023 End: 05-27-2023 Patient encounter procedure Mhd Yaser Al-Marrawi [facility] Start: 05-13-2023 End: 05-13-2023 ambulatory Mhd Yaser Al-Marrawi Facility:[facility] Start: 05-13-2023 End: 05-13-2023 Patient encounter procedure Mhd Yaser Al-Marrawi [facility] Start: 05-13-2023 End: 05-13-2023 ambulatory Mhd Yaser Al-Marrawi Facility:[facility] Start: 05-13-2023 End: 05-13-2023 Patient encounter procedure Mhd Yaser Al-Marrawi [facility] Start: 04-29-2023 End: 04-29-2023 ambulatory Mhd Yaser Al-Marrawi Facility:[facility] Start: 04-29-2023 End: 04-29-2023 ambulatory Mhd Yaser Al-Marrawi Facility:[facility] Start: 04-29-2023 End: 04-29-2023 Patient encounter procedure Ortiz Alexander [facility] Start: 03-17-2023 End: 03-17-2023 Lab Drop off Willian Barrios [facility] Start: 09-18-2022 End: 09-19-[address] FERNY [...] End: 10-27-2018 Patient encounter procedure DEFAULT PHYSICIAN Facility:[facility] Procedures Date Procedure Procedure Detail [...] SARS-CoV-2 mRNA (tozinameran 5y-11y) vaccine Deborah Rashid [facility] Comment on above: Result Comment: pfiz er 07-28-2023 influenza virus vaccine, unspecified formulation Ashlie Mead [facility] 07-28-2023 SARS-CoV-2 mRNA (tozinameran 5y-11y) vaccine Mariah Amin [facility] Comment on above: Result Comment: Covi d 19 pfizer 07-24-2022 influenza virus vaccine, unspecified formulation Willian Barrios [facility] 07-24-2022 SARS-CoV-2 (COVID-19 ) mRNAMUL.[id number] Willian Barrios [facility] 01-15-2022 SARS-CoV-2 mRNA (ythoqpgovfl-cigg-mvllv se) vaccine Willian Barrios [facility] 07-24-2021 influenza virus vaccine, unspecified formulation Willian Barrios [facility] 07-10-2021 SARS-CoV-2 (COVID-19 ) mRNA BNT-162b2 vax Willian Barrios [facility] 01-02-2021 SARS-CoV-2 (COVID-19 ) mRNA BNT-162b2 vax Willian Barrios [facility] 12-11-2020 SARS-CoV-2 (COVID-19 ) mRNA BNT-162b2 vax Willian Barrios [facility] 06-21-2020 influenza virus vaccine, unspecified formulation Willian Barrios [facility] 06-21-2020 pneumococcal polysaccharide vaccine, 23 valent Willian Barrios [facility] 07-13-2019 influenza virus vaccine, unspecified formulation Willian Barrios [facility] 07-10-2018 influenza virus vaccine, unspecified formulation Willian Barrios [facility] 11-20-2016 pneumococcal polysaccharide vaccine, 23 valent Willian Barrios [facility] NEGATED: Highlighted row has not occurred!06-30-2023 influenza virus vaccine, unspecified formulation Willian Barrios [facility] Payers Date Payer Category Payer Private Health Insurance [id number] Medicare [id number] 1961 Unknown [id number] 1955 Unknown [id number] 2.16.8 40.1.242641.3.579.2.647 1953 Unknown [id number] 2.16.84 0.1.780444.3.579.2.593 1953 Unknown [id number] 2.16.84 0.1.301543.3.579.2.593 1953 Unknown [id number] 2.16.84 0.1.346057.3.579.2.593 1953 Unknown [id number] 2.16.84 0.1.640799.3.579.2.593 1953 Unknown [id number] 2.16.84 0.1.108550.3.579.2.593 1953 Unknown [id number] 2.16.84 0.1.109153.3.579.2.593 1953 Unknown [id number] 2.16.84 0.1.795541.3.579.2.593 1953 Unknown [id number] 2.16.8 40.1.358473.3.579.2.727 1953 Unknown [id number] 2.16.8 40.1.495793.3.579.2.727 1953 Unknown [id number] 2.16.8 40.1.213304.3.579.2.727 1953 Unknown [id number] 2.16.8 40.1.824775.3.579.2.727 1953 Unknown [id number] 2.16.8 40.1.642517.3.579.2.727 1953 Unknown [id number] 2.16.8 40.1.594121.3.579.2.727 1953 Unknown [id number] 2.16.8 40.1.587934.3.579.2.727 1953 Unknown [id number] 2.16.8 40.1.522904.3.579.2. 1953 Unknown [id number] 2.16.8 40.1.714868.3.579.2. 1953 Unknown [id number] 2.16.8 40.1.519358.3.579.2. 1953 Unknown [id number] 2.16.8 40.1.090305.3.579.2. 1953 Unknown [id number] 2.16.8 40.1.123492.3.579.2 1953 Unknown [id number] 2.16.8 40.1.462133.3.579.2. 1953 Unknown [id number] 2.16.8 40.1.199805.3.579.2 1953 Unknown [id number] 2.16.8 40.1.065332.3.579.2 1953 Unknown [id number] 2.16.8 40.1.944271.3.579.2. 1953 Unknown [id number] 2.16.8 40.1.949987.3.579.2. 1953 Unknown [id number] 2.16.8 40.1.457470.3.579.2. 1953 Unknown [id number] 2.16.8 40.1.519262.3.579.2. 1953 Unknown [id number] 2.16.8 40.1.933405.3.579.2. 1953 Unknown [id number] 2.16.8 40.1.757955.3.579.2.72 1953 Unknown [id number] 2.16.8 40.1.231257.3.579.2.727 1953 Unknown [id number] 2.16.8 40.1.128578.3.579.2.727 1953 Unknown [id number] 2.16.8 40.1.178905.3.579.2.727 1953 Unknown [id number] 2.16.8 40.1.952227.3.579.2.727 1953 Unknown [id number] 2.16.8 40.1.680657.3.579.2.727 1953 Unknown [id number] 2.16.8 40.1.024537.3.579.2.727 1953 Unknown [id number] 2.16.8 40.1.253658.3.579.2.727 1953 Unknown [id number] 2.16.8 40.1.633968.3.579.2.727 1953 Unknown [id number] 2.16.8 40.1.582543.3.579.2.727 1953 Unknown [id number] 2.16.8 40.1.143963.3.579.2.727 1953 Unknown [id number] 2.16.8 40.1.397201.3.579.2.727 1953 Unknown [id number] 2.16.8 40.1.018903.3.579.2.727 1953 Unknown [id number] 2.16.8 40.1.658337.3.579.2.727 1953 Unknown [id number] 2.16.8 40.1.279310.3.579.2.727 Unknown Social History Date Type Detail Facility Start: 03-17-2023 End: 03-29-2024 Tobacco smoking status Never smoked tobacco (finding) [facility] Comment on above: denies Tobacco smoking status Never Michel [facility] Comment on above: denies Sex Assigned At Female [facility] Medical Equipment Procedure Code Equipment Code Equipment Origin al Text Equipment Identifier Dates Misc DME Prescription, See Instructions, 100 strip(s), 0, one touch ultra test strips Test sugars once a day Dx E11.9, [facility]/pharmacy #[id number], Supply Start: 02-06-2023 Mis DME Prescription, See Instructions, 100 strip(s), 0, one touch ultra test strips Test sugars once a day Dx E11.9, [id number], Supply Start: 02-06-2023 [facility] DME Prescription, See Instructions, 100 strip(s), 0, one touch ultra test strips Test sugars once a day Dx E11.9, [id number], Supply, 150, cm, 04/29/23 10:06:00 EDT, Height/Length Dosing, 112.3, kg, 04/29/23 10:06:00 EDT, Weight Dosing Start: 05-06-2023 [facility] DME Prescription, See Instructions, 100 strip(s), 0, one touch ultra test strips Test sugars once a day Dx E11.9, [id number], Supply, 150, cm, 04/29/23 10:06:00 EDT, Height/Length Dosing, 112.3, kg, 04/29/23 10:06:00 EDT, Weight Dosing Start: 05-06-2023 [facility] DME Prescription, See Instructions, 100 strip(s), 0, one touch ultra test strips Test sugars once a day Dx E11.9, [id number], Supply, 150, cm, 04/29/23 10:06:00 EDT, Height/Length Dosing, 112.3, kg, 04/29/23 10:06:00 EDT, Weight Dosing Start: 05-06-2023 [facility] DME Prescription, See Instructions, 100 strip(s), 0, one touch ultra test strips Test sugars once a day Dx E11.9, [id number], Supply, 150, cm, 04/29/23 10:06:00 EDT, Height/Length Dosing, 112.3, kg, 04/29/23 10:06:00 EDT, Weight Dosing Start: 05-06-2023 [facility] DME Prescription, See Instructions, 100 strip(s), 0, one touch ultra test strips Test sugars once a day Dx E11.9, [id number], Supply, 150, cm, 04/29/23 10:06:00 EDT, Height/Length Dosing, 112.3, kg, 04/29/23 10:06:00 EDT, Weight Dosing Start: 05-06-2023 [facility] DME Prescription, See Instructions, 100 strip(s), 0, one touch ultra test strips Test sugars once a day Dx E11.9, [id number], Supply, 150, cm, 04/29/23 10:06:00 EDT, Height/Length Dosing, 112.3, kg, 04/29/23 10:06:00 EDT, Weight Dosing Start: 05-06-2023 [facility] DME Prescription, See Instructions, 100 strip(s), 0, one touch ultra test strips Test sugars once a day Dx E11.9, [id number], Supply, 150, cm, 04/29/23 10:06:00 EDT, Height/Length Dosing, 112.3, kg, 04/29/23 10:06:00 EDT, Weight Dosing Start: 05-06-2023 [facility] DME Prescription, See Instructions, 100 strip(s), 0, one touch ultra test strips Test sugars once a day Dx E11.9, [id number], Supply, 150, cm, 04/29/23 10:06:00 EDT, Height/Length Dosing, 112.3, kg, 04/29/23 10:06:00 EDT, Weight Dosing Start: 05-06-2023 Unknown Unknown 07/24/23 Non Biological Unknown FDA Start: 07-24-2023 [facility] DME Prescription, See Instructions, 100 strip(s), 1, [...] 07/31/23 9:52:00 EDT, Weight Dosing Start: 08-21-2023 [facility] DME Prescription, See Instructions, 100 strip(s), 1, [...] to obtain blood sugars Dx: E11.9, [facility]/pharmacy #[id number], Supply, 150.8, cm, 07/31/23 9:52:00 EDT, Height/Length Dosing, 112.7, kg, 07/31/23 9:52:00 EDT, Weight Dosing Start: 08-21-2023 [facility] DME Prescription, See Instructions, 100 strip(s), 1, one touch test strips. Use to test blood sugars once a day Dx E11.9, [facility]/pharmacy #[id number], Supply, 150.8, cm, 07/31/23 9:52:00 EDT, [...] 07/31/23 9:52:00 EDT, Weight Dosing Start: 08-21-2023 [facility] DME Prescription, See Instructions, 100 strip(s), 1, [...] 07/31/23 9:52:00 EDT, Weight Dosing Start: 08-21-2023 [facility] DME Prescription, See Instructions, 100 strip(s), 1, [...] 07/31/23 9:52:00 EDT, Weight Dosing Start: 08-21-2023 [facility] DME Prescription, See Instructions, 100 strip(s), 1, [...] 02/06/24 9:13:00 EDT, Weight Dosing Start: 03-01-2024 [facility] DME Prescription, See Instructions, 100 strip(s), 1, [...] 02/06/24 9:13:00 EDT, Weight Dosing Start: 03-01-2024 [facility] DME Prescription, See Instructions, 100 strip(s), 1, one touch test strips. Use to test blood sugars once a day Dx E11.9, [facility] #[id number], Supply, 150.8, cm, 07/31/23 9:52:00 EDT, [...] 02/06/24 9:13:00 EDT, Weight Dosing Start: 03-01-2024 [facility] DME Prescription, See Instructions, 100 strip(s), 1, one touch test strips. Use to test blood sugars once a day Dx E11.9, [facility] #[id number], Supply, 150.8, cm, 07/31/23 9:52:00 EDT, [...] 02/06/24 9:13:00 EDT, Weight Dosing Start: 03-01-2024 [facility] DME Prescription, See Instructions, 100 strip(s), 1, one touch test strips. Use to test blood sugars once a day Dx E11.9, [facility] #[id number], Supply, 150.8, cm, 07/31/23 9:52:00 EDT, Height/Length Dosing, 112.7, kg, 07/31/23 9:52:00 EDT, Weight Dosing Start: 08-21-2023 Functional Status Date Assessment Result Facility 03-02-2024 Functional Status N/A [facility] 02-06-2024 Functional Status N/A [facility] 10-01-2023 Functional Status N/A [facility] 07-31-2023 Functional Status N/A [facility] 06-24-2023 Functional Status N/A [facility] 06-04-2023 Functional Status N/A [facility] Clinical Notes 04-18-2023 to [...] these instructions at home: Medicines ? 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 ? Avoid contact with people who have [...] away. Call yo (more content not included)... [facility] 03-15-2024 Hospital Discharg e instructions Patient Education [...] iron. Foods high in vitamin C include: ?[place] fruits, such as checo, oranges, and grapefruits. [...] iron supplement is right for you. Take wvxx-nvm-iihynox and prescription medicines only as told by your health care provider. Keep all follow-up visits. Where to find more information Learn more about preventing iron deficiency from: National Heart, Lung, and Blood Superior: www.nhlbi.nih.gov [employer] [place] [employer] Hematology: www.hematology.org Contact a health [...] provider. Document Revised: 11/06/2022 Document Reviewed: 11/06/2022 [employer] Patient Education 2022 [employer] 03/15/2024 10:23:50 Iron-Rich Diet Iron-Rich Diet [...] Meats and other proteins Beef liver. Beef. [place]. Chicken. Oysters. Shrimp. Tuna. Sardines. Chickpeas. Nuts. [...] Black tea. Red wine. Sweets and desserts [place]. Chocolate. Ice cream. Seasonings and condiments Basil. [...] provider. Document Revised: 09/10/2021 Document Reviewed: 09/10/2021 [employer] Patient Education 2022 [facility] Imaging. Follow Up Care 12/15/2023 10:48:25 With:Eloisa PATTEN, Mariah Davison, MED, ONC Address: When: Unknown Comments:Continue observation only for the low plt and low WBC for now. Call if bleeding or infections, fevers.Continue ferrous sulfate rxdp-vjp-tlcfssl 325 mg once daily.Return in 4 months with labs prior including CBC with differential CMP, B12, folate and iron studies. [facility] 02-09-2024 Note [id number] [facility] 02-06-2024 Evaluation + Plan note Extrac enid from: Title:ANES Post-operative Note - General Author: Jorge Luis Fang Jr., DO Date:02/06/24 Plan Transfer/Discharge: Transfer/Discharge Discharge when meets criteria ( From PACU to Ambulatory Surgery Unit, and To home ). Extracted from: Title:ANES Pre-operative Note - Endo Author:Jorge Luis Rodas Jr., DO Date:02/06/24 Plan [place] [employer] Anesthesiologists (ASA) physical status classification: Class III. Anesthetic Preoperative Plan: Anesthesia General, and -TIVA. Future Appointments Appointment Date:03/15/2024 10:00:00 AM Scheduled Provider:Eloisa PATTEN, Mariah Davison Location:.ONCOLOGY Appointment Type:ONC Office Visit 30 (FT) Appointment Date:03/29/2024 10:30:00 AM Scheduled Provider:Willian Barrios MD Location:[facility] Appointment Type: Open Appointment Date:08/31/2024 11:00:00 AM Scheduled Provider: Location:[facility] Appointment Type: Medicare Wellness Subsequent Future Scheduled Tests Laboratory* CBC w/ Auto Diff 03/08/24 * CBC w/ Auto Diff 10/01/23 * CBC w/ Auto Diff 07/31/23 * Comprehensive Metabolic Panel 03/08/24 * Ferritin 03/08/24 * Iron Level 03/08/24 * Iron Percent Saturation 03/08/24 * Transferrin 03/08/24 Radiology* MA Mamm Screen w/CAD if perf and 3D Michael 03/17/23 [facility]04-26-2024 Hospital Discharge instructions Patient Education 02/06/2024 11:09:28 Colonoscopy, Care After Surgery Salam (CUSTOM) Colonoscopy Care After Surgery Please read the instructions outlined below and refer to this sheet in the next few weeks. These discharge instructions provide you with general information on [facility] Your [facility] may also give you specific [...] hard liquor (44 mL). General instructions Take kgac-vqc-tynpkwq and prescription medicines only as told by [...] provider. Document Revised: 01/17/2021 Document Reviewed: 01/17/2021 [employer] Patient Education 2022 Vascular Imaging. Follow Up Care 10/01/2023 13:21:09 With:Deborah Rashid Address: [address], [address] [address] [phone] Business (1) When:1 to 2 weeks Comments:Call for any problems. [facility]02-08-2024 Hospital Discharge instructions Follow Up Care 11/20/2023 15:36:43 With:Eloisa PATTEN, Mariah Davison, MED, ONC Address: When: Unknown Comments:Labs today including CBC with differential, CMP, iron study B12 folate and copper level.Start ferrous sulfate ijjo-ppo-hjfccmm 325 mg once daily.Return in 3 months with labs prior including CBC with differential CMP and iron studies. [facility]12-20-2023 Hospital Discharge instructions Patient Education 10/01/2023 12:42:50 [...] hard liquor (44 mL). General instructions Take dyjb-hln-hgmnwmc and prescription medicines only as told by [...] provider. Document Revised: 01/17/2021 Document Reviewed: 01/17/2021 [employer] Patient Education 2022 Vascular Imaging. Follow Up Care 07/31/2023 10:11:05 With:Ashlie Mead CNP Address: When:Within 4 Month(s) [facility] 10-19-2023 Hospital Discharge instructions Patient [...] spleen. Follow these instructions at home: Take fulo-mtk-zfmmyix and prescription medicines only as told by [...] provider. Document Revised: 08/13/2022 Document Reviewed: 09/05/2020 [employer] Patient Education 2022 Vascular Imaging. Follow Up Care 07/25/2023 08:45:16 With:Ashlie Mead CNP Address: When:1 month [facility] 10-13-2023 Note [id number]:Result Comment: Electronically Signed By: Lucas Bates DO\.br\Date and Time Signed: 07/25/23 08:33 [id number] [facility] SystemComment [facility] above: Result Comment: Electronically Signed By: Lucas Bates DO\.br\Date and Time Signed: 07/24/23 13:28 [id number] Evaluation + Plan note Future Appointments Appointment Date:06/24/2023 09:00:00 AM Scheduled Provider: Location:.[facility] Appointment Type:CT Biopsy (FT) Appointment Date:06/24/2023 09:00:00 AM Scheduled Provider: Location:[facility] Appointment Type:Surgery FT Appointment Date:06/30/2023 11:20:00 AM Scheduled Provider:Willian Barrios MD Location[facility] Appointment Type: Open Appointment Date:07/10/2023 09:30:00 AM Scheduled Provider: Location:[facility] Appointment Type:Surgery FT Appointment Date:07/22/2023 09:30:00 AM Scheduled Provider: Location:.ONCOLOGY Appointment Type:ONC Office Visit 30 (FT) Appointment Date:09/16/2023 01:00:00 PM Scheduled Provider: Location:[facility] Appointment Type: Medicare Wellness Subsequent Appointment Date:09/16/2023 02:20:00 PM Scheduled Provider:Willian Barrios MD Location:[facility] [place] Appointment Type: Open Future Scheduled Tests Laboratory* CBC w/ Auto Diff 07/22/23 Radiology* CT Bone Marrow Biopsy 06/24/23 * MA Mamm Screen w/CAD if perf and 3D Michael 03/17/23 [facility]08-17-[facility] NoteCardiology Clinic Note Subjective Misa Santos is [...] 1 year (around 05/29/2024). 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 CBCD on return day with me. [facility]07-18-2023 Hospital Discharge instructions Follow Up Care 04/29/2023 10:41:22 With:Mariah Amin Address: [address] [phone] Business (1) When: Unknown Comments:We will obtain [...] blood flow cytometry are normal. [facility]07-07-2023 Hospital Discharge instructions Follow Up Care 04/18/2023 13:20:05 With:Mariah Amin Address: [address] [address]- [phone] Business (1) When: Unknown Comments:We will check CBC with differential CMP PNH flow, LDH, peripheral blood flow cytometry, B12 level, folate, iron studies, copper, ILANA, rheumatoid factor, and platelet antibodies.Return to office in 2 weeks for results. [facility] Future Appointments Appointment Date:09/16/2023 01:00:00 PM Scheduled Provider: Location:[facility] Appointment Type: Medicare Wellness Subsequent Appointment Date:09/16/2023 02:20:00 PM Scheduled Provider:Willian Barrios MD Location:[facility] Appointment Type: Open Future Scheduled Tests Radiology* MA Mamm Screen w/CAD if perf and 3D Michael 6/5/23 [facility] Future Appointments Appointment Date:05/13/2023 10:00:00 AM Scheduled Provider: Location:.ONCOLOGY Appointment Type:ONC Office Visit 30 (FT) Appointment Date:06/30/2023 11:20:00 AM Scheduled Provider:Willian Barrios MD Location:[facility] Appointment Type:FM Open Appointment Date:09/16/2023 01:00:00 PM Scheduled Provider: Location:[facility] Appointment Type: Medicare Wellness Subsequent Appointment Date:09/16/2023 02:20:00 PM Scheduled Provider:Willian Barrios MD Location:[facility] Appointment Type: Open Future Scheduled Tests Radiology* MA Mamm Screen w/CAD if perf and 3D Michael 03/17/23 [facility] Future Appointments Appointment Date:06/17/2023 10:30:00 AM Scheduled Provider: Location:.ONCOLOGY Appointment Type:ONC Office Visit 30 (FT) Appointment Date:06/30/2023 11:20:00 AM Scheduled Provider:Willian Barrios MD Location:[facility] Appointment Type: Open Appointment Date:09/16/2023 01:00:00 PM Scheduled Provider: Location:[facility] Appointment Type: Medicare Wellness Subsequent Appointment Date:09/16/2023 02:20:00 PM Scheduled Provider:Willian Barrios MD Location:[facility] Appointment Type: Open Future Scheduled Tests Laboratory* CBC w/ Auto Diff 05/27/23 * CBC w/ Auto Diff 06/10/23 Radiology* MA Mamm Screen w/CAD if perf and 3D Michael 03/17/23 [facility] Future Appointments Appointment Date:06/17/2023 10:30:00 AM Scheduled Provider: Location:.ONCOLOGY Appointment Type:ONC Office Visit 30 (FT) Appointment Date:06/30/2023 11:20:00 AM Scheduled Provider:Willian Barrios MD Location:[facility] Appointment Type: Open Appointment Date:09/16/2023 01:00:00 PM Scheduled Provider: Location:[facility] Appointment Type: Medicare Wellness Subsequent Appointment Date:09/16/2023 02:20:00 PM Scheduled Provider:Willian Barrios MD Location:[facility] Appointment Type: Open Diagnostic Tests Pending * Comp panel: Leuk/Lym [id number] 05/13/23 Future Scheduled Tests Laboratory* CBC w/ Auto Diff 05/27/23 * CBC w/ Auto Diff 06/10/23 Radiology* MA Mamm Screen w/CAD if perf and 3D Michael 03/17/23 [facility] Future Appointments Appointment Date:06/17/2023 10:30:00 AM Scheduled Provider: Location:.ONCOLOGY Appointment Type:ONC Office Visit 30 (FT) Appointment Date:06/30/2023 11:20:00 AM Scheduled Provider:Willian Barrios MD Location:[facility] Appointment Type: Open Appointment Date:09/16/2023 01:00:00 PM Scheduled Provider: Location:[facility] Appointment Type: Medicare Wellness Subsequent Appointment Date:09/16/2023 02:20:00 PM Scheduled Provider:Willian Barrios MD Location:[facility] Appointment Type: Open Future Scheduled Tests Laboratory* CBC w/ Auto Diff 06/10/23 Radiology* MA Mamm Screen w/CAD if perf and 3D Michael 03/17/23 [facility] Future Appointments Appointment Date:06/17/2023 10:30:00 AM Scheduled Provider: Location:.ONCOLOGY Appointment Type:ONC Office Visit 30 (FT) Appointment Date:06/30/2023 11:20:00 AM Scheduled Provider:Willian Barrios MD Location:[facility] Appointment Type: Open Appointment Date:07/10/2023 09:45:00 AM Scheduled Provider: Location:[facility] Appointment Type:Surgery FT Appointment Date:09/16/2023 01:00:00 PM Scheduled Provider: Location:[facility] Appointment Type: Medicare Wellness Subsequent Appointment Date:09/16/2023 02:20:00 PM Scheduled Provider:Willian Barrios MD Location:[facility] Appointment Type: Open Future Scheduled Tests Laboratory* CBC w/ Auto Diff 06/10/23 Radiology* MA Mamm Screen w/CAD if perf and 3D Michael 03/17/23 [facility] Evaluation + Plan note Future Appointments Appointment Date:06/17/2023 10:30:00 AM Scheduled Provider: Location:.ONCOLOGY Appointment Type:ONC Office Visit 30 (FT) Appointment Date:06/30/2023 11:20:00 AM Scheduled Provider:Willian Barrios MD Location:[facility] Appointment Type:FM Open Appointment Date:07/10/2023 09:30:00 AM Scheduled Provider: Location:[facility] Appointment Type:Surgery FT Appointment Date:09/16/2023 01:00:00 PM Scheduled Provider: Location:[facility] Appointment Type: Medicare Wellness Subsequent Appointment Date:09/16/2023 02:20:00 PM Scheduled Provider:Willian Barrios MD Location:[facility] Appointment Type: Open Future Scheduled Tests Radiology* MA Mamm Screen w/CAD if perf and 3D Michael 03/17/23 [facility] Future Appointments Appointment Date:06/30/2023 11:20:00 AM Scheduled Provider:Willian Barrios MD Location:[facility] Appointment Type:FM Open Appointment Date:07/22/2023 09:30:00 AM Scheduled Provider: Location:.ONCOLOGY Appointment Type:ONC Office Visit 30 (FT) Appointment Date:07/24/2023 10:00:00 AM Scheduled Provider: Location:[facility] Appointment Type:Surgery FT Appointment Date:08/29/2023 11:00:00 AM Scheduled Provider: Location:[facility] Appointment Type: Medicare Wellness Subsequent Appointment Date:09/16/2023 02:20:00 PM Scheduled Provider:Willian Barrios MD Location:[facility] Appointment Type: Open Future Scheduled Tests Laboratory* CBC w/ Auto Diff 07/22/23 Radiology* MA Mamm Screen w/CAD if perf and 3D Michael 03/17/23 [facility] Future Appointments Appointment Date:07/22/2023 09:30:00 AM Scheduled Provider: Location:.ONCOLOGY Appointment Type:ONC Office Visit 30 (FT) Appointment Date:07/24/2023 10:00:00 AM Scheduled Provider: Location:[facility] Appointment Type:Surgery FT Appointment Date:08/29/2023 11:00:00 AM Scheduled Provider: Location:[facility] Appointment Type: Medicare Wellness Subsequent Appointment Date:09/16/2023 02:20:00 PM Scheduled Provider:Willian Barrios MD Location:[facility] Appointment Type: Open Appointment Date:09/29/2023 11:20:00 AM Scheduled Provider:Willian Barrios MD Location:[facility] Appointment Type: Open Future Scheduled Tests Radiology* MA Mamm Screen w/CAD if perf and 3D Michael 03/17/23 [facility] Future Appointments Appointment Date:08/29/2023 11:00:00 AM Scheduled Provider: Location:[facility] Appointment Type: Medicare Wellness Subsequent Appointment Date:09/16/2023 02:20:00 PM Scheduled Provider:Willian Barrios MD Location:[facility] Appointment Type: Open Appointment Date:09/23/2023 10:00:00 AM Scheduled Provider: Location:.ONCOLOGY Appointment Type:ONC Office Visit 30 (FT) Appointment Date:09/29/2023 11:20:00 AM Scheduled Provider:Willian Barrios MD Location:[facility] Appointment Type: Open Appointment Date:10/01/2023 12:40:00 PM Scheduled Provider:Ashlie Mead CNP Location[place] Appointment Type:[facility] Follow Up Future Scheduled Tests Laboratory* Hep [...] w/CAD if perf and 3D Michael 03/17/23 [facility] Evaluation + Plan note Future Appointments Appointment Date:09/16/2023 02:20:00 PM Scheduled Provider:Willian Barrios MD Location:[facility] Appointment Type: Open Appointment Date:09/23/2023 10:00:00 AM Scheduled Provider: [facility] Type:ONC Office Visit 30 (FT) Appointment Date:09/29/2023 11:20:00 AM Scheduled Provider:Willian Barrios MD Location:[facility] Appointment Type: Open Appointment Date:10/01/2023 12:40:00 PM Scheduled Provider:Ashlie Mead CNP Location:[facility] Appointment Type:[facility] Follow Up Appointment Date:08/31/2024 11:00:00 AM Scheduled Provider: Location:[facility] Appointment Type: Medicare Wellness Subsequent Diagnostic Tests [...] perf and 3D Michael 03/17/23 [facility] Future App[facility]ments Appointment Date:01/15/2024 09:00:00 AM Scheduled Provider: Location:[facility] Appointment Type:Surgery FT Appointment Date:03/29/2024 10:30:00 AM Scheduled Provider:Willian Barrios MD Location:[facility] Appointment Type: Open Appointment Date:08/31/2024 11:00:00 AM Scheduled Provider: Location:[facility] Appointment Type: Medicare Wellness Subsequent Future Scheduled Tests Laboratory* CBC w/ Auto Diff 10/01/23 * CBC w/ Auto Diff 07/31/23 Radiology* MA Mamm Screen w/CAD if perf and 3D Michael 03/17/23 [facility] Evaluation + Plan note Future Appointments Appointment Date:01/15/2024 09:00:00 AM Scheduled Provider: Location:[facility] Appointment Type:Surgery FT Appointment Date:03/15/2024 10:00:00 AM Scheduled Provider:Mariah Amin MD Location:.ONCOLOGY Appointment Type:ONC Office Visit 30 (FT) Appointment Date:03/29/2024 10:30:00 AM Scheduled Provider:Willian Barrios MD Location:[facility] Appointment Type: Open Appointment Date:08/31/2024 11:00:00 AM Scheduled Provider: Location:[facility] Appointment Type:FM Medicare Wellness Subsequent Future Scheduled Tests Laboratory* CBC w/ Auto Diff 03/08/24 * CBC w/ Auto Diff 10/01/23 * CBC w/ Auto Diff 07/31/23 * Comprehensive Metabolic Panel 03/08/24 * Ferritin 03/08/24 * Iron Level 03/08/24 * Iron Percent Saturation 03/08/24 * Transferrin 03/08/24 Radiology* MA Mamm Screen w/CAD if perf and 3D Michael 03/17/23 [facility] Future App[facility]ments Appointment Date:01/15/2024 09:00:00 AM Scheduled Provider: Location:[facility] Appointment Type:Surgery FT Appointment Date:03/15/2024 10:00:00 AM Scheduled Provider:Mariah Amin MD [facility] App[facility] Type:ONC Office Visit 30 (FT) Appointment Date:03/29/2024 10:30:00 AM Scheduled Provider:Willian Barrios MD Location:[facility] Appointment Type: Open Appointment Date:08/31/2024 11:00:00 AM Scheduled Provider: Location:[facility] Appointment Type:FM Medicare Wellness Subsequent Diagnostic Tests [...] perf and 3D Michael 03/17/23 [facility] Future Appointments Appointment Date:03/15/2024 10:00:00 AM Scheduled Provider:Mariah Amin MD [facility] App[facility] Type:ONC Office Visit 30 (FT) Appointment Date:03/29/2024 10:30:00 AM Scheduled Provider:Willian Barrios MD Location:[facility] Appointment Type: Open Appointment Date:08/31/2024 11:00:00 AM Scheduled Provider: Location:[facility] Appointment Type: Medicare Wellness Subsequent Future Scheduled Tests Laboratory* CBC w/ Auto Diff 03/08/24 * CBC w/ Auto Diff 10/01/23 * CBC w/ Auto Diff 07/31/23 * Comprehensive Metabolic Panel 03/08/24 * Ferritin 03/08/24 * Iron Level 03/08/24 * Iron Percent Saturation 03/08/24 * Transferrin 03/08/24 Radiology* MA Mamm Screen w/CAD if perf and 3D Michael 03/17/23 [facility] Evaluation + Plan note Future Appointments Appointment Date:03/15/2024 10:00:00 AM Scheduled Provider:Mariah Amin MD [facility] App[facility] Type:ONC Office Visit 30 (FT) Appointment Date:03/29/2024 10:30:00 AM Scheduled Provider:Willian Barrios MD Location:[facility] Appointment Type: Open Appointment Date:08/31/2024 11:00:00 AM Scheduled Provider: Location:[facility] Appointment Type: Medicare Wellness Subsequent Future Scheduled Tests Laboratory* CBC w/ Auto Diff 10/01/23 * CBC w/ Auto Diff 07/31/23 Radiology* MA Mamm Screen w/CAD if perf and 3D Michael 03/17/23 [facility] Future Appointments Appointment Date:03/29/2024 10:30:00 AM Scheduled Provider:Willian Barrios MD Location:[facility] Appointment Type: Open Appointment Date:07/13/2024 10:00:00 AM Scheduled Provider:Mariah Amin MD [facility] App[facility] Type:ONC Office Visit 30 (FT) Appointment Date:08/31/2024 11:00:00 AM Scheduled Provider: Location:[facility] Appointment Type: Medicare Wellness Subsequent Future Scheduled [...] perf and 3D Michael 03/17/23 [facility] Future Appointments Appointment Date:04/23/2024 12:30:00 PM Scheduled Provider: [facility] Appoint[facility] Type:PUL Methacholine Test (FT) Appointment Date:07/13/2024 10:00:00 AM Scheduled Provider:Eloisa PATTEN, Mariah Davison [facility] Appoint[facility] Type:ONC Office Visit 30 (FT) Appointment Date:08/31/2024 09:30:00 AM Scheduled Provider:Willian Barrios MD Location:[facility] Appointment Type: Open Appointment Date:08/31/2024 11:00:00 AM Scheduled Provider: Location:[facility] Appointment Type:FM Medicare Wellness Subsequent Future Scheduled [...] Transferrin 07/06/24 * Vitamin B12 Level 07/06/24 [facility] N[facility] No data available for this section [facility] No data available for this section [facility] No data available for this section [...] section and content) DATE CREATED AUTHOR 10/31/2018 [facility] DATE CREATED AUTHOR AUTHOR'S ORGANIZ ATION 09/24/2022 [facility] DATE CREATED AUTHOR AUTHOR'S ORGANIZ ATION 05/30/2023 [facility] DATE CREATED AUTHOR AUTHOR'S ORGANIZ ATION 03/10/2024 [facility] DATE CREATED AUTHOR AUTHOR'S ORGANIZ ATION 04/04/2024 [facility] DATE CREATED AUTHOR AUTHOR'S ORGANIZ ATION 05/23/2024 [facility] Patient Care team informatio n (unrecognized section and content) Personnel Name: FERNY HUDDLESTON MD Address: Address: [address] [place] [address] Personnel Name: Willian Barrios MD Address: Address: [address] [place] [address] Personnel Name: Willian Barrios MD Address: Address: [address] [place] [address] Personnel Name: Willian Barrios MD Address: Address: [address] [place] [address] Personnel Name: Willian Barrios MD Address: Address: [address] Personnel Name: Willian Barrios MD Address: Address: [facility] [place] [address] Personnel Name: Willian Barrios MD Address: Address: [facility] [place] [address] Personnel Name: Willian Barrios MD Address: Address: [facility] [place] [address] Personnel Name: Willian Barrios MD Address: Address: [facility] [place] [address] Personnel Name: Willian Barrios MD Address: Address: [facility] [place] [address] Personnel Name: Willian Barrios MD Address: Address: [facility] [place] [address] Personnel Name: Willian Barrios MD Address: Address: [facility] [place] [address] Personnel Name: Willian Barrios MD Address: Address: [facility] [place] [address] Personnel Name: Willian Barrios MD Address: Address: [facility] [place] [address] Personnel Name: Willian Barrios MD Address: Address: [facility] [place] [address] Personnel Name: Willian Barrios MD Address: Address: [facility] [place] [address] Personnel Name: Willian Barrios MD Address: Address: [facility] [place] [address] Personnel Name: Willian Barrios MD Address: Address: [facility] [place] [address] Personnel Name: Willian Barrios MD Address: Address: [facility] [place] [address] Personnel Name: Willian Barrios MD Address: Address: [facility] [place] [address] FOR RECORDS PERTAINING TO PATIENTS WHO [...] BE BASED ON THE PRIMARY CLINICAL RECORDS. [facility]. provides no warranty or guarantee of the accuracy or completeness of information in this document.
[2024-05-27] MEDS: LACTATED RINGER'S SOLUTION 1,000 ML 100 ML IV (20:24)
[2024-05-27] MEDS: POTASSIUM CHLORIDE 10 MEQ ER TABLET 20 MEQ PO (20:26)
[2024-05-27] MEDS: METOPROLOL TARTRATE 25 MG TABLET PO (20:27)
[2024-05-27 20:43] LABS: Glucometer 242 mg/dL (74-106)
[2024-05-27] MEDS: INSULIN ASPART 300 UNIT/3 ML PEN SUBQ (21:51)
[2024-05-28] VITALS (15 sets, daily range): BP systolic 90–104; BP diastolic 55–66; PULSE 51–86; TEMP 36.4–36.9; O2SAT 90–95
[2024-05-28] MEDS: METHYLPREDNISOLONE SOD SUCC PF 125 MG/2 ML VIAL IVP ×2 (03:27→08:44)
[2024-05-28] MEDS: IPRATROPIUM/ALBUTEROL SULFATE 3 ML AMPUL.NEB IH ×4 (04:44→23:16)
[2024-05-28] MEDS: LACTATED RINGER'S SOLUTION 1,000 ML 100 ML IV ×2 (05:56→17:14)
[2024-05-28] MEDS: LEVOTHYROXINE SODIUM 75 MCG TABLET PO (05:56)
[2024-05-28 06:43] LABS: Alanine Aminotransferase 20 U/L (14-59); Albumin Globulin Ratio 0.7; Albumin Level 2.3 g/dL (3.4-5.0); Alkaline Phosphatase 60 U/L (46-116); Anion Gap 10.3; Aspartate Amino Transferase 34 U/L (15-37); BUN Creatinine Ratio 13.5; Calcium 8.5 mg/dL (8.5-10.1); Carbon Dioxide 26.5 mmol/L (21.0-32.0); Chloride 104 mmol/L (98-107); Estimated GFR (African America 36 (>=60); Estimated GFR (Non-African Ame 30 (>=60); Globulin 3.1 g/dL; Glucose 240 mg/dL (74-106); Potassium 3.8 mmol/L (3.5-5.1); Sodium 137 mmol/L (136-145); Total Protein 5.4 g/dL (6.4-8.2)
[2024-05-28 07:46] LABS: Hematocrit 26.9 % (36.0-48.0); Mean Corpuscular HGB Conc 33.5 g/dL (29.9-35.2); Mean Corpuscular Hemoglobin 32.5 pg (26.7-34.0); Mean Corpuscular Volume 97.1 fL (81.0-99.0); Mean Platelet Volume 10.8 fL (9.5-13.5); Platelet Count 71 10^3/uL (150-450); Red Blood Count 2.77 10^6/uL (4.20-5.40); Red Cell Distribution Width 12.2 % (11.0-15.0); White Blood Count 1.7 10^3/uL (4.0-11.0)
[2024-05-28] MEDS: INSULIN ASPART 300 UNIT/3 ML PEN SUBQ ×4 (08:17→21:55)
[2024-05-28 08:34] LABS: Lymphocytes Absolute Manual 0.17 10^3/uL (1.20-3.80); Segmented Neut Absolute Manual 1.49 10^3/uL (1.4-6.5)
[2024-05-28 08:35] LABS: Eosinophils Absolute Manual 0.01 10^3/uL (0.00-0.70)
[2024-05-28] MEDS: POTASSIUM CHLORIDE 10 MEQ ER TABLET 20 MEQ PO ×2 (08:44→21:55)
[2024-05-28] MEDS: ATORVASTATIN CALCIUM 40 MG TABLET PO (08:44)
[2024-05-28] MEDS: GLIPIZIDE 5 MG TABLET PO (08:44)
--- NOTE | 2024-05-28 08:46 | CM.NOTE ---
Rounds made with Dr. Rahman, able to wean off oxygen this AM. Pt continues to c/o exertional dyspnea. No discharge today. PT and OT to evaluate pt also today for discharge planning.
[2024-05-28] MEDS: FLUTICASONE PROPIONATE 50 MCG NASAL SPRAY 2 SPRAY NS (08:49)
--- NOTE | 2024-05-28 08:56 | P.PN_ITS ---
Progress Note: Subjective Subjective Interval history: Patient up in a chair this morning. Does look a little bit more comfortable with her breathing. Still has audible wheezes without a stethoscope. Exam Constitutional Vital Signs, click to edit/add: Last Vital Signs Temp 97.6 F 05/28/24 07:18 Pulse 64 05/28/24 07:18 Resp 20 05/28/24 07:18 BP 97/57 05/28/24 07:18 Pulse Ox 94 L 05/28/24 07:28 O2 Del Method Room Air 05/28/24 07:28 O2 Flow Rate 2 05/28/24 07:18 Documenting provider has reviewed patient's vital signs: yes Common normals: apparent distress (Mild conversational dyspnea with persistent cough throughout the evaluation) Chest Common normals: inspection of chest normal Respiratory Common normals: no retractions; abnormal respiratory effort (May be a little less respiratory distress today) Effort & inspection: tachypneic Auscultation: rhonchi and wheezes (Much better air movement today but wheezes persisting) Cardio Common normals: regular rate and regular rhythm GI Common normals: Normal to inspection, nondistended, normoactive bowel sounds present (Morbidly obese), soft to palpation, non-tender, no hepatosplenomegaly and no masses Extremity Common normals: normal to inspection and full ROM Progress Note: Objective Labs Labs: Short CBC 05/27/24 05/28/24 Range/Units 14:28 05:49 WBC 4.4 1.7 L (4.0-11.0) 10^3/uL Hgb 10.9 L 9.0 L (12.0-16.0) g/dL Hct 33.1 L 26.9 L (36.0-48.0) % Plt Count 112 L 71 L (150-450) 10^3/uL BMP 05/27/24 05/28/24 14:28 05:49 Sodium 139 137 Potassium 3.0 L 3.8 Chloride 102 104 Carbon Dioxide 24.7 26.5 BUN 15.0 23.0 H Creatinine 1.58 H 1.70 H Glucose 162 H 240 H Calcium 9.2 8.5 Liver Function 05/28/24 Range/Units 05:49 Total Bilirubin 1.0 (0.2-1.0) mg/dL AST 34 (15-37) U/L ALT 20 (14-59) U/L Alkaline Phosphatase 60 (46-116) U/L Albumin 2.3 L (3.4-5.0) g/dL Progress Note: A&P Assessment and Plan (1) Dyspnea: (2) Pneumonia: (3) Hypothyroid: (4) Diabetes: (5) HTN (hypertension): (6) Thrombocytopenia: (7) Moderate protein malnutrition: (8) CKD stage 2 due to type 2 diabetes mellitus: (9) Iron deficiency anemia: Plan Admission findings: Sinus tachycardia with heart rate greater than 90, respiratory distress with respiratory rate greater than 20, positive lactate, positive acute kidney injury secondary to bibasilar pneumonia with right worse than left resulting in severe sepsis (tachycardia, respiratory distress, positive lactate). Will repeat COVID test today. Wheezes have improved, maintain current medications. She did have an episode of hypoxia overnight team she was 93% and the nurse put her on O2, later in the evening that went down to 90% on the 2 L. So relative hypoxia. Severe sepsis due to bibasilar pneumonia with relative hypoxia 90% on 2 L as outlined above-IV antibiotics, aerosols, steroids, pretty severe wheezing that is fairly tight. Try to obtain sputum culture. Blood cultures pending. Unable to give large fluid boluses due to the history of fluid overload. Will repeat COVID test today. Wheezes have improved, maintain current medications. She did have an episode of hypoxia overnight team she was 93% and the nurse put her on O2, later in the evening that went down to 90% on the 2 L. So relative hypoxia. NIDDM-insulin sliding scale Thrombocytopenia secondary to the above severe sepsis-monitor daily Hypokalemia-supplement daily labs Acute kidney injury-baseline creatinine is around 1.2. Creatinine on admission of 1.58. With this elevation of puts her creatinine to greater than 131.66% above baseline-IV fluids but gentle. Slightly further elevated today. Continue with low fluids. Hypertension-blood pressure low. Hold blood pressure medications for systolic blood pressure less than 110 Hypothyroidism-can be continued with home medications Moderate protein calorie malnutrition based on NIH criteria for albumin-diet supplement Admission status: Patient is been dealing with this illness for probably since March, worse in the last 3 days. Failed outpatient treatment. Admitted for bibasilar pneumonia with severe sepsis. Wheezes persisting today, medically necessary treatment will span likely 2 more midnights. Inpatient status. ?
[2024-05-28] MEDS: CEFTRIAXONE 1,000 MG in 0.9 % SODIUM CHLORIDE 50 ML 100 MG IV (09:03)
[2024-05-28] MEDS: AZITHROMYCIN 500 MG in 0.9 % SODIUM CHLORIDE 250 ML 250 MG IV (09:36)
--- NOTE | 2024-05-28 09:37 | CM.NOTE ---
Important Message From Medicare discussed with pt, pt verbalizes understanding and signs paper. Original given to pt and copy placed on pt's chart.
--- NOTE | 2024-05-28 11:22 | SWNOTE1 ---
Pt did well with PT/OT, no needs identified.
[2024-05-28 11:25] LABS: Glucometer 276 mg/dL (74-106)
[2024-05-28 12:18] LABS: Internal Control Within Normal Limits; SARS-CoV-2 Ag NEGATIVE (NEGATIVE)
[2024-05-28] MEDS: METHYLPREDNISOLONE SOD SUCC PF 125 MG/2 ML VIAL 60 MG IVP ×2 (14:34→21:52)
[2024-05-28 16:22] LABS: Glucometer 217 mg/dL (74-106)
[2024-05-28 20:51] LABS: Glucometer 267 mg/dL (74-106)
[2024-05-29] MEDS: LACTATED RINGER'S SOLUTION 1,000 ML 100 ML IV (03:29)
[2024-05-29] MEDS: METHYLPREDNISOLONE SOD SUCC PF 125 MG/2 ML VIAL 60 MG IVP ×3 (03:29→14:30)
[2024-05-29 03:52] VITALS: BP 105/62; PULSE 69; TEMP 36.4
[2024-05-29 05:26] VITALS: PULSE 69; O2SAT 96
[2024-05-29] MEDS: IPRATROPIUM/ALBUTEROL SULFATE 3 ML AMPUL.NEB IH ×2 (05:26→11:06)
[2024-05-29] MEDS: LEVOTHYROXINE SODIUM 75 MCG TABLET PO (06:06)
[2024-05-29 07:01] LABS: Hematocrit 27.6 % (36.0-48.0); Immature Granulocytes Abs Auto 0.02 10^3/uL (0.00-0.03); Immature Granulocytes Pct Auto 0.5 % (0.0-0.5); Lymphocytes Absolute Auto 0.3 10^3/uL (1.2-3.8); Lymphocytes Percent Auto 8.5 % (20.5-60.0); Mean Corpuscular HGB Conc 32.6 g/dL (29.9-35.2); Mean Corpuscular Hemoglobin 31.8 pg (26.7-34.0); Mean Corpuscular Volume 97.5 fL (81.0-99.0); Mean Platelet Volume 10.5 fL (9.5-13.5); Monocytes Absolute Auto 0.1 10^3/uL (0.3-0.8); Monocytes Percent Auto 3.4 % (1.7-12.0); Neutrophils Absolute Auto 3.4 10^3/uL (1.4-6.5); Neutrophils Percent Auto 87.6 % (43.0-75.0); Platelet Count 84 10^3/uL (150-450); Red Blood Count 2.83 10^6/uL (4.20-5.40); Red Cell Distribution Width 12.3 % (11.0-15.0); White Blood Count 3.9 10^3/uL (4.0-11.0)
[2024-05-29 07:35] LABS: Alanine Aminotransferase 22 U/L (14-59); Albumin Globulin Ratio 0.9; Albumin Level 2.6 g/dL (3.4-5.0); Alkaline Phosphatase 53 U/L (46-116); Anion Gap 13.1; Aspartate Amino Transferase 37 U/L (15-37); BUN Creatinine Ratio 20.1; Bilirubin Total 0.6 mg/dL (0.2-1.0); Calcium 8.2 mg/dL (8.5-10.1); Carbon Dioxide 23.8 mmol/L (21.0-32.0); Chloride 106 mmol/L (98-107); Estimated GFR (African America 37 (>=60); Estimated GFR (Non-African Ame 31 (>=60); Globulin 2.8 g/dL; Glucose 182 mg/dL (74-106); Potassium 3.9 mmol/L (3.5-5.1); Sodium 139 mmol/L (136-145); Total Protein 5.4 g/dL (6.4-8.2)
[2024-05-29 07:55] VITALS: BP 110/71; PULSE 78; TEMP 36.7; O2SAT 88
[2024-05-29 07:59] VITALS: O2SAT 93
[2024-05-29] MEDS: INSULIN ASPART 300 UNIT/3 ML PEN SUBQ ×2 (08:54→12:36)
[2024-05-29] MEDS: FLUTICASONE PROPIONATE 50 MCG NASAL SPRAY 2 SPRAY NS (08:56)
[2024-05-29] MEDS: GLIPIZIDE 5 MG TABLET PO (08:56)
[2024-05-29] MEDS: POTASSIUM CHLORIDE 10 MEQ ER TABLET 20 MEQ PO (08:56)
[2024-05-29] MEDS: ATORVASTATIN CALCIUM 40 MG TABLET PO (08:56)
[2024-05-29] MEDS: METOPROLOL TARTRATE 25 MG TABLET PO (08:56)
[2024-05-29] MEDS: CEFTRIAXONE 1,000 MG in 0.9 % SODIUM CHLORIDE 50 ML 100 MG IV (09:49)
[2024-05-29] MEDS: AZITHROMYCIN 500 MG in 0.9 % SODIUM CHLORIDE 250 ML 250 MG IV (11:07)
[2024-05-29 11:09] VITALS: PULSE 69; O2SAT 98
[2024-05-29 11:32] LABS: Glucometer 266 mg/dL (74-106)
[2024-05-29 12:00] VITALS: BP 112/77; PULSE 74; TEMP 36.6; O2SAT 96
--- NOTE | 2024-05-29 12:25 | PM.DS1 ---
DS: Providers Provider Date of admission: 05/27/24 18:13 Primary care physician: KAI JARQUIN Admitting clinician: Alex Rahman Attending physician on admission: Alex Rahman Consults: 05/27/24 18:24 Consult to Pharmacy Routine Consulting Provider: Reason for consultation: Please [place] me when Med Rec is Updated Has provider been notified: No Occupational Therapy Eval and Treat Routine Reason for consultation: Only if needed for Rehab Has provider been notified: No Physical Therapy Eval and Treat Routine Reason for consultation: Eval and Treat Has provider been notified: No Attending physician on discharge: Shaikh Bipin Discharging clinician: Shaikh Bipin Anticipated date of discharge: 05/29/24 DS: Diagnosis Discharge Diagnosis (1) Sepsis: Assessment and plan: Secondary to pneumonia. She is hemodynamically stable now. Medically stable for discharge on oral antibiotics Qualifiers: Sepsis type: sepsis due to unspecified organism Sepsis acute organ dysfunction status: without acute organ dysfunction Qualified Code(s): A41.9 - Sepsis, unspecified organism (2) Pneumonia: Assessment and plan: Right basilar pneumonia. Treated with Rocephin and azithromycin. Stable for discharge on oral Ceftin. Qualifiers: Pneumonia type: due to unspecified organism Laterality: right Lung location: lower lobe of lung Qualified Code(s): J18.9 - Pneumonia, unspecified organism (3) Acute respiratory failure with hypoxia: Assessment and plan: Hypoxia with pulse ox as low as 88% on room air. She is now doing better and does not require oxygen supplementation. Stable for discharge. (4) Reactive airway disease with acute exacerbation: Assessment and plan: Does not have a formal diagnosis of asthma or COPD. She is being worked up as outpatient and was scheduled for a PFT. She likely has underlying reactive airway disease considering her obesity and no prior history of smoking. Will need PFTs as outpatient once acute illness has resolved. Will discharge on albuterol as needed along with prednisone. Qualifiers: Asthma severity: mild Asthma persistence: persistent Qualified Code(s): J45.31 - Mild persistent asthma with (acute) exacerbation (5) Dyspnea: Assessment and plan: Improved with IV steroids, IV antibiotics and inhaled bronchodilators. Stable for discharge. Qualifiers: Dyspnea type: dyspnea on exertion Qualified Code(s): R06.09 - Other forms of dyspnea (6) Lactic acidosis: Assessment and plan: Resolved. (7) Pancytopenia: Assessment and plan: Pancytopenia noted on labs. Will need outpatient workup to determine the underlying etiology. (8) Diabetes: Assessment and plan: Closely monitor blood glucose as outpatient while on steroids. Qualifiers: Diabetes mellitus type: type 2 Diabetes mellitus senior living insulin use: without assistant terminal manager use Diabetes mellitus complication status: with kidney complications Diabetes mellitus complication detail: with chronic kidney disease Chronic kidney disease stage: stage 3 (moderate) Chronic kidney disease stage 3 subtype: stage 3a (GFR 45-59) Qualified Code(s): E11.22 - Type 2 diabetes mellitus with diabetic chronic kidney disease; N18.31 - Chronic kidney disease, stage 3a (9) HTN (hypertension): Assessment and plan: Blood pressure is at goal. Follow up as outpatient Qualifiers: Hypertension type: primary hypertension Qualified Code(s): I10 - Essential (primary) hypertension (10) Hypothyroid: Assessment and plan: Continue with levothyroxine Qualifiers: Hypothyroidism type: unspecified Qualified Code(s): E03.9 - Hypothyroidism, unspecified (11) CKD stage 3 due to type 2 diabetes mellitus: Assessment and plan: Function more or less at baseline. Monitor as outpatient (12) VALERIE (obstructive sleep apnea): Assessment and plan: Continue with CPAP as outpatient (13) Morbid obesity: Assessment and plan: Will benefit from weight loss. She can benefit from GLP agonist to help with type 2 diabetes along with weight loss. Will defer to patient's PCP. DS: Summary Hospital Course Hospital Course: 69-year-old female presented with worsening shortness of breath for past couple of weeks and was admitted for acute respiratory failure with hypoxia/sepsis secondary to right basilar pneumonia. She also had mild elevation in serum creatinine along with lactic acidosis. Patient was treated with IV steroids, inhaled bronchodilators and IV antibiotics. She had considerable dyspnea on arrival with increased work of breathing and audible wheezing on exam. Patient clinically improved with treatment during the course of admission and is stable for discharge medically today. She is not on oxygen anymore. She feels better but is still experiences mild dyspnea on exertion. She has good air entry on exam with minimal wheeze on expiration. Patient will need outpatient follow-up with PCP in 1 to 2 weeks. She was instructed to return to ED if she has worsening dyspnea, wheezing or any other symptoms concerning for worsening pneumonia/asthma exacerbation. Status at Discharge Overall status at discharge: patient is back to baseline Time Spent with Patient Time attestation: Total time spent providing and/or coordinating discharge services: Time spent: greater than 30 minutes Exam Constitutional Vital Signs, click to edit/add: Last Vital Signs Temp 98.0 F 05/29/24 07:55 Pulse 69 05/29/24 11:09 Resp 20 05/29/24 07:55 BP 110/71 05/29/24 07:55 Pulse Ox 98 05/29/24 11:09 O2 Del Method Nasal Cannula 05/29/24 11:09 O2 Flow Rate 2 05/29/24 11:09 Documenting provider has reviewed patient's vital signs: yes Common normals: no apparent distress and oriented x3 Nutritional appearance: obese HENMT Common normals: normocephalic and head/scalp atraumatic Respiratory Common normals: normal respiratory effort and no use of accessory muscles Effort & inspection: able to speak in complete sentences Auscultation: wheezes Cardio Common normals: no JVD, regular rate, regular rhythm, S1 normal heart sound and S2 normal heart sound Extremity Common normals: normal to inspection and full ROM Neuro Common normals: oriented x3, moves all extremities and no focal motor deficits Psych Common normals: mental status grossly normal, thought process normal, denies homicidal ideation and denies suicidal ideation DS: Data Data Completed and Pending Labs on day of discharge: Labs from last 24 hours 05/29/24 05/29/24 05/28/24 11:31 06:27 20:47 WBC 3.9 L RBC 2.83 L Hgb 9.0 L Hct 27.6 L MCV 97.5 MCH 31.8 MCHC 32.6 RDW 12.3 Plt Count 84 L MPV 10.5 Neut % (Auto) 87.6 H Lymph % (Auto) 8.5 L Cooper % (Auto) 3.4 Eos % (Auto) 0.0 L Baso % (Auto) 0.0 L Neut # (Auto) 3.4 Lymph # (Auto) 0.3 L Cooper # (Auto) 0.1 L Eos # (Auto) 0.0 Baso # (Auto) 0.0 Abs Immat Gran (auto) 0.02 Imm/Tot Granulo (auto) 0.5 Sodium 139 Potassium 3.9 Chloride 106 Carbon Dioxide 23.8 Anion Gap 13.1 BUN 33.0 H Creatinine 1.64 H Est GFR ( Amer) 37 L Est GFR (Non-Af Amer) 31 L BUN/Creatinine Ratio 20.1 Glucose 182 H Calcium 8.2 L Total Bilirubin 0.6 AST 37 ALT 22 Alkaline Phosphatase 53 Total Protein 5.4 L Albumin 2.6 L Globulin 2.8 Albumin/Globulin Ratio 0.9 POC Glucose 266 H 267 H 05/28/24 16:21 WBC RBC Hgb Hct MCV MCH MCHC RDW Plt Count MPV Neut % (Auto) Lymph % (Auto) Cooper % (Auto) Eos % (Auto) Baso % (Auto) Neut # (Auto) Lymph # (Auto) Cooper # (Auto) Eos # (Auto) Baso # (Auto) Abs Immat Gran (auto) Imm/Tot Granulo (auto) Sodium Potassium Chloride Carbon Dioxide Anion Gap BUN Creatinine Est GFR ( Amer) Est GFR (Non-Af Amer) BUN/Creatinine Ratio Glucose Calcium Total Bilirubin AST ALT Alkaline Phosphatase Total Protein Albumin Globulin Albumin/Globulin Ratio POC Glucose 217 H Discharge Plan Discharge Disposition: Home, Self-Care Condition: Good Discharge Medications: New prednisone 20 mg tablet 20 mg PO BID Qty: 10 0RF cefuroxime axetil 500 mg tablet 500 mg PO BID 7 Days Qty: 14 0RF Continued albuterol sulfate 90 mcg/actuation HFA aerosol inhaler 2 puff INHALATION Q6H PRN (Reason: shortness of breath or wheezing) atorvastatin 40 mg tablet 40 mg PO DAILY fluticasone propionate 50 mcg/actuation spray,suspension 2 spray INTRANASAL DAILY glipizide 5 mg tablet 5 mg PO DAILY levothyroxine 75 mcg tablet 75 mcg PO DAILY losartan-hydrochlorothiazide 100-25 mg tablet 1 tab PO DAILY metoprolol tartrate 25 mg tablet 25 mg PO BID Activity: increase activity as tolerated Diet: advance to your usual diet Print Language: Latvian Forms: Portal Instructions Follow Up Appointments: F/u with PCP in one week
--- NOTE | 2024-05-31 14:24 | CM.DCFOLLOWU ---
Person spoke with: patient How are you feeling? well How is your pain? none Did you understand your discharge instructions? yes Do you have any questions about your discharge instructions? no Were you given any prescriptions at discharge? yes Were you able to get your prescriptions filled? yes Do you understand how to take your medications as ordered?yes Do you have any questions about your follow up appointment and do you plan to keep your follow up appointment? no questions, yes called and scheduled follow up with Dr. Barrios Is there anything else that you would like to discuss? no Questions/Comments/Concerns/Other: none
== END 2024-05-29 15:21 | disposition home or self-care (01) | DRG 871 ==
LOC: ER 17:48 → MS 18:18
PROVIDERS: Nurse Practitioner Family; Admitting Provider Family Medicine; Emergency Provider Emergency Medicine; PCP Family Medicine; Visit Provider Internal Medicine
DX: A41.9 Sepsis, unspecified organism (principal); J18.9 Pneumonia, unspecified organism; J96.01 Acute respiratory failure with hypoxia; N17.9 Acute kidney failure, unspecified; J45.31 Mild persistent asthma with (acute) exacerbation; E87.20 Acidosis, unspecified; D61.818 Other pancytopenia; Z68.43 Body mass index [BMI] 50.0-59.9, adult; E44.0 Moderate protein-calorie malnutrition; E11.22 Type 2 diabetes mellitus with diabetic chronic kidney disease; N18.31 Chronic kidney disease, stage 3a; G47.33 Obstructive sleep apnea (adult) (pediatric); E66.01 Morbid (severe) obesity due to excess calories; I12.9 Hypertensive chronic kidney disease with stage 1 through stage 4 chronic kidney disease, or unspecified chronic kidney disease; E03.9 Hypothyroidism, unspecified; E87.6 Hypokalemia; R65.20 Severe sepsis without septic shock; Z20.822 Contact with and (suspected) exposure to COVID-19; Z79.899 Other long term (current) drug therapy; Z79.890 Hormone replacement therapy; Z90.710 Acquired absence of both cervix and uterus; Z98.890 Other specified postprocedural states; Z98.891 History of uterine scar from previous surgery; Z79.84 Long term (current) use of oral hypoglycemic drugs
CPT/HCPCS: 36415; 71045; 80048; 80053; 82948; 83605; 83880; 85007; 85025; 85027; 87040; 87070; 87804; 87811; 93005; 94640; 94667; 94668; 94761; 96365; 96366; 96367; 96368; 96375; 96376; 97161; 97165; 99285; J0456; J0696; J2919

== ENCOUNTER 2024-05-31 08:08 | Emergency (ER) | payer MEDICARE, SELFPAY ==
[2024-05-31 08:16] VITALS: BP 124/50; PULSE 62; TEMP 36.5; O2SAT 96; BMI 42.9
--- OUTSIDE RECORDS SUMMARY | 2024-05-31 08:26 | XMS_ITS | CCD ---
Author Organization [facility] Care Team Providers Care Passenger Flagman Name Role Phone PHYSICIAN, DEFAULT Admitting Unavailable [...] Care Physician Willian Barrios Primary Care Physician [phone] DELMAR CORDOVA Attending Unavailable Lucas Bates Attending [...] Drug Allergy Dizziness (finding), Unknown (qualifier value) [facility] Sulfonamides (antibiotic) (1 source) Sulfonamides (Antibiotic); Translations: [sulfa drugs] Drug Allergy Unknown (qualifier value) [facility] (3 sources) Sulfonamides (Antibiotic); Translations: [SULFA (SULFONAMIDE ANTIBIOTICS)] Drug allergy (disorder) 6 [facility] Repository (4 sources) metFORMIN; Translations: [METFORMIN] Drug Allergy 1 [facility] Repository (19 sources) metFORMIN; Translations: [metformin] Drug Allergy Unknown (qualifier value), Dizziness (finding) [facility] (20 sources) Sulfonamides (Antibiotic); Translations: [sulfa drugs] Drug allergy Unknown (qualifier value) [facility] Medications Current Medications Medication Drug Class(es) Dates Sig (Normalized) Sig (Original) Albuterol (Eqv-ProAir HFA) 90 mcg/inh inhalation aerosol (11 sources) Start: 06-30-2023 take 2 puff(s) by inhalation every six hours Albuterol (Eqv-ProAir HFA) 90 mcg/inh inhalation aerosol 2 puff(s), Inhalation, q6hr, 18 gm, Refill(s) 0, [facility]/pharmacy #[id number], 150, cm, 06/30/23 11:19:00 EDT, [...] DAY, # 90 tab(s), Refills(s) 0, Pharmacy: [facility] [id number], 152, cm, 09/17/23 13:20:00 EST, Height/Length Dosing, 11.2, kg, 09/17/23 13:20:00 EST, Weight Dosing Start Date: 09/22/23 Status: Ordered Start: 06-30-2023 take 1 tablet by leela once daily Lipitor 40 mg Tab 40 mg = 1 tab(s), Oral, Daily, # 90 tab(s), Refills(s) 0, [id number], 150, cm, 06/30/23 11:19:00 EDT, Height/Length Dosing, 112.8, kg, 06/30/23 11:19:00 EDT, Weight Dosing Start Date: 06/30/23 Status: Ordered Beclomethasone Dipropionate 0.08 MG/ACTUAT Metered Dose Inhaler (4 sources) Corticosteroid Start: 01-06-2024 take 2 puff(s) by inhalation twice daily beclomethasone 80 mcg/inh Inh Aer w/Adapt 2 puff(s), Inhalation, BID, 10.6 gm, Refill(s) 1, [facility]/pharmacy #[id number], 152, cm, 01/02/24 11:02:00 EDT, Height/Length Dosing, 112.3, kg, 01/02/24 11:02:00 EDT, Weight Dosing Start Date: 01/06/24 Status: Ordered Budesonide 0.09 MG/ACTUAT Dry Powder Inhaler (7 sources) Corticosteroid Start: 09-25-2023 budesonide 90 mcg/inh inhalation powder 1 inh, Inhalation, BID, 1 EA, Refill(s) 11, [facility]/pharmacy #[id number], 152, cm, 09/24/23 14:41:00 EST, [...] Corticosteroid Start: 04-12-2024 fluticasone Nasal 0.05 mg/inh [place] See Instructions, 48 mL, Refill(s) 1, INSTILL 2 SPRAYS IN EACH NOSTRIL ONCE A DAY, [email or web address], 152, cm, 03/29/24 10:40:00 EDT, Height/Length Dosing, 111.8, kg, 03/29/24 10:40:00 EDT, Weight Dosing Start Date: 04/12/24 Status: Ordered Start: 10-16-2023 fluticasone Na robyn 0.05 mg/inh [place] See Instructions, 48 mL, Refill(s) 1, USE 2 SPRAYS IN EACH NOSTRIL ONCE A DAY, [email or web address], 152, cm, 10/01/23 12:44:00 EST, Height/Length Dosing, 111.6, kg, 10/01/23 12:44:00 EST, Weight Dosing Start Date: 10/16/23 Status: Ordered Start: 09-24-2023 Flonase 0.05 m g/inh [place] 2 spray(s), Nasal, Daily, 16 gram, Refill(s) 0, each nostril, [facility]/pharmacy #[id number], 152, cm, 09/24/23 14:41:00 EST, Height/Length Dosing, 109.8, kg, 09/24/23 14:41:00 EST, Weight Dosing Start Date: 09/24/23 Status: Ordered glipiZIDE 5 mg oral tablet (20 sources) Sulfonylurea Start: 09-29-2023 take 1 tablet by mouth once daily glipiZIDE 5 mg Tab 5 mg = 1 tab(s), Oral, Daily, # 90 tab(s), Refills(s) 3, [id number] 152, cm, 09/29/23 11:20:00 EST, Height/Length Dosing, 111, kg, 09/29/23 11:20:00 EST, Weight Dosing Start Date: 09/29/23 Status: Ordered Start: 04-22-2023 take 1 tablet by leela once daily glipiZIDE 5 mg Tab 5 mg = 1 tab(s), Oral, Daily, # 90 tab(s), Refills(s) 3, [id number], 150.8, cm, 03/31/23 11:24:00 EDT, Height/Length [...] Daily, # 90 tab(s), Refills(s) 3, [id number], 150.8, cm, 07/24/23 9:39:00 EDT, Height/Length Dosing, 114, kg, 07/24/23 9:39:00 EDT, Weight Dosing Start Date: 07/28/23 Status: Ordered Start: 06-09-2023 take 1 tablet by leela once daily levothyroxine 75 mcg (0.075 mg) Tab 75 mcg = 1 tab(s), Oral, Daily, # 90 tab(s), Refills(s) 0, [id number], 150.8, cm, 06/04/23 13:05:00 EDT, Height/Length [...] day(s), # 120 tab(s), Refills(s) 0, Pharmacy: [facility]/pharmacy #[id number], 152, cm, 03/29/24 10:40:00 EDT, Height/Length Dosing, 111.8, kg, 03/29/24 10:40:00 EDT, Weight Dosing Start Date: 03/30/24 Stop Date: 05/29/24 Status: Ordered Start: 02-07-2023 take 1 tablet by [facility] twice daily Metoprolol tartrate 25 mg Tab 25 mg = 1 tab(s), Oral, BID, Refills(s) 0, High blood pressure Start Date: 02/07/23 Status: Ordered Oystercal-D oral tablet (7 sources) Start: 11-24-2023 Oystercal-D or al tablet 1 tab(s), Oral, BID, 100 tab(s), Refill(s) 2, [facility]/pharmacy #[id number], 152, cm, 10/01/23 12:44:00 EST, Height/Length Dosing, 111.6, kg, 10/01/23 12:44:00 EST, Weight Dosing Start Date: 11/24/23 Status: Ordered polyethylene glycol 3350 221361 mg / potassium chloride 1480 mg / sodium bicarbonate 5720 mg / sodium chloride 06720 mg powder for oral solution (8 sources) Osmotic Laxative Start: 10-01-2023 NuLYTELY Eliz ry oral powder for reconstitution See Instructions, 1 EA, Refill(s) 0, Prior to colonsocopy., [facility]/pharmacy #[id number], 152, cm, 10/01/23 12:44:00 EST, Height/Length Dosing, 111.6, kg, 10/01/23 12:44:00 EST, Weight Dosing Start Date: 10/01/23 Status: Ordered Start: 06-04-2023 Ya siegel oral powder for reconstitution See Instructions, 1 EA, Refill(s) 0, Oral, [facility]/pharmacy #6177, 150.8, cm, 06/04/23 13:05:00 EDT, [...] TAKE 1 TABLET BY MOUTH EVERY DAY, [facility] ST[facility], 152, cm, 03/29/24 10:40:00 EDT, Height/Length Dosing, 111.8, kg, 03/29/24 10:40:00 EDT, Weight Dosing Start Date: 04/12/24 Status: Ordered Start: 07-28-2023 hydrochlorothi azide-losartan 25 mg-100 mg Tab 1 tab(s), Oral, Daily, 90 tab(s), Refill(s) 1, [facility]/pharmacy #6177, 150.8, cm, 07/24/23 9:39:00 EDT, [...] 11:23:00 EDT, Weight Dosing Rapid COVID POC 65787 Follow-up No qualifying data available Patient Education [...] tab(s), Oral, Daily fluticasone Nasal 0.05 mg/inh [place], See Instructions glipiZIDE 5 mg Tab, 5 [...] concerns: No., 08/29/2023 (more content not included)... [facility] Comment on above: Result Comment: Elec tronically [...] capacity. READ BY: Sophia Ferrer Dictated: 04/18/2024 [id number] Transcribed: 04/20/2024 cc:Willian Barrios M.D. [facility] Comment on above: Result Comment: Elec tronically Signed By: Deng PATTEN, Adrian Dyer\.br\Date and Time Signed: 04/21/24 09:10 EDT Dexa Scanson 03-31-2024 Dexa Scans [id number]#1.00TIFF Normal [facility] Family Medicine Office/Clini c Noteon 03-29-2024 Family Medicine Office/Clinic Note Normal [facility] Comment on above: Result Comment: Elec tronically Signed By: Denis PATTEN, Willian Weiner\.br\Date and Time Signed: 03/29/24 12:57 EDT Patient Educationon 03-29-20 Patient Education Normal [facility] Ambulatory Visit Summaryon 0 03-15-2024 Ambulatory Visit Summary Normal [address] [place] [address]- \.br\ Medications\.br \ What How Much When [...] fluticasone nasal (fluticasone Nasal 0.05 mg/ inh [place]) See instructions USE 2 SPRAYS IN EACH [...] high in vitamin C include:\.br\ ? \.br\ [place] fruits, such as checo, oranges, and grapefruits.\.b [...] is right for you.\.br\ ? \.br\ Take otxn-gat-vydish r and prescription medicines only as told by your health care provider.\.br\ ? \.br\ Keep all follow-up visits.\.br\ Where to find more information\.br \ Learn more about preventing iron deficiency from:\.br\ ? \.br\ National Heart, Lung, and Blood [place]: www.nhlbi.nih.g ov\.br\ ? \.br\ [place] [employer]: www.hematology. org\.br\ Contact a health care provider if:\.br\ ? \.br\ You develop symptoms of iron deficiency, including:\.br\ ? \.br\ Fatigue.\.br\ ? \.br\ Headache.\.br\ ? \.br\ Pale skin, lips, and nail beds.\.br\ ? \.br\ Poor appetite.\.br\ ? \.br\ Weakness.\.br\ Summary\.br\ ? \.br\ Iron deficiency anemia is a condition in which the [facility] Consent for Treatmenton Consent for Treatment [id number]#1.00TIFF Normal [facility] ED Pat Eduon 03-15-2024 ED Pat Edu Normal [facility] ED Pat Edu Normal [facility] Oncology Progress Noteon Oncology Progress Note Normal [facility] CBC w/ Auto Diffon 4 Basophils/100 WBC (Bld) 1.0 % Normal 0.0-2.0 [facility] Comment on above: Performed By: #### 2 [id number] #### [facility] [address] [place] [address] Basophils/Leukocyt es Auto (Bld) [Pure # fraction] 0.0 E9/L Normal 0.0-0.2 [facility] Comment on above: Performed By: #### 2 [id number] #### [facility] [address] [place] [address] Eosinophils (Bld) [#/Vol] 0.1 E9/L Normal 0.0-0.5 [facility] Comment on above: Performed By: #### 2 131199 #### [facility] [address] [place] [address] Eosinophils/100 WBC (Bld) 2.0 % Normal 0.0-8.0 [facility] Comment on above: Performed By: #### 2 768994 #### [facility] [address] [place] [address] Erythrocyte distribution width (RBC) [Ratio] 13.5 % Normal 10.9-14.2 [facility] Comment on above: Performed By: #### 2 460610 #### [facility] [address] [place] [address] Hematocrit (Bld) [Volume fraction] 36.6 % Normal 34.0-46.0 [facility] Comment on above: Performed By: #### 2 657836 #### [facility] [address] [place] [address] Hemoglobin (Bld) [Mass/Vol] 12.3 g/dL Normal 12.0-16.0 [facility] Comment on above: Performed By: #### 2 943620 #### [facility] [address] [place] [address] Lymphocytes (Bld) [#/Vol] 0.6 E9/L Low 1.0-4.0 [facility] Comment on above: Performed By: #### 2 774925 #### [facility] [address] [place] [address] Lymphocytes/100 WBC (Bld) 21.0 % Normal 14.0-50.0 [facility] Comment on above: Performed By: #### 2 278062 #### [facility] [address] [place] [address] MCH (RBC) [Entitic mass] 32.6 pg Normal 27.0-34.0 [facility] Comment on above: Performed By: #### 2 135496 #### [facility] [address] [place] [address] MCHC (RBC) [Mass/Vol] 33.6 g/dL Normal 31.4-36.0 [facility] Comment on above: Performed By: #### 2 491015 #### [facility] [address] [place] [address] MCV (RBC) [Entitic vol] 97.0 fL Normal 80.0-100.0 [facility] Comment on above: Performed By: #### 2 405524 #### [facility] [address] [place] [address] Monocytes (Bld) [#/Vol] 0.3 E9/L Normal 0.2-1.0 [facility] Comment on above: Performed By: #### 2 172145 #### [facility] [address] [place] [address] Neutrophils (Bld) [#/Vol] 2.1 E9/L Normal 2.0-7.5 [facility] Comment on above: Performed By: #### 2 303616 #### [facility] [address] [place] [address] Neutrophils/100 WBC (Bld) 67.2 % Normal 36.0-75.0 [facility] Comment on above: Performed By: #### 2 107973 #### [facility] [address] [place] [address] Platelet 90.0 E9/L Low 150.0-500.0 [facility] Comment on above: Result Comment: Resu lt Verified by Repeat Analysis Peripheral smear review performed. Performed By: #### 2 086624 #### [facility] [address] [place] [address] Platelet mean volume (Bld) [Entitic vol] 8.4 fL Normal 6.4-10.8 [facility] Comment on above: Performed By: #### 2 497734 #### [facility] [address] [place] [address] RBC (Bld) [#/Vol] 3.8 E12/L Low 4.3-5.9 [facility] Comment on above: Performed By: #### 2 214094 #### [facility] [address] [place] [address] WBC corrected for nucl RBC Auto (Bld) [#/Vol] 3.1 E9/L Low 4.0-11.0 [facility] Comment on above: Performed By: #### 2 086866 #### [facility] [address] [place] [address] CHEMISTRYOrdered By: SYSTEM SYSTEM on 03-09-2024 Albumin [...] 03-09-2024 Albumin [Mass/Vol] 3.4 g/dL Normal 3.3-5.0 [facility] Comment on above: Performed By: #### 2 584203 #### [facility] [address] [place] [address] Albumin/Globulin (S) [Mass conc ratio] 1.2 Normal 1.1-2.2 [facility] Comment on above: Performed By: #### 2 001273 #### [facility] [address] [place] [address] ALP [Catalytic activity/Vol] 68 Int._Unit/L Normal 21-98 [facility] Comment on above: Performed By: #### 2 522234 #### [facility] [address] [place] [address] ALT No additional P-5'-P [Catalytic activity/Vol] 21 Int._Unit/L Normal 6-46 [facility] Comment on above: Performed By: #### 2 909176 #### [facility] [address] [place] [address] Anion gap [Moles/Vol] 11 mmol/L Normal 6-16 [facility] Comment on above: Performed By: #### 2 392483 #### [facility] [address] [place] [address] AST [Catalytic activity/Vol] 31 Int._Unit/L Normal 5-43 [facility] Comment on above: Performed By: #### 2 882894 #### [facility] [address] [place] [address] Bilirubin [Mass/Vol] 1.0 mg/dL Normal 0.0-1.1 [facility] Comment on above: Performed By: #### 2 594258 #### [facility] [address] [place] [address] Calcium [Mass/Vol] 8.9 mg/dL Normal 8.9-11.1 [facility] Comment on above: Performed By: #### 2 733214 #### [facility] [address] [place] [address] Chloride [Moles/Vol] 103 mmol/L Normal 101-111 [facility] Comment on above: Performed By: #### 2 090551 #### [facility] [address] [place] [address] CO2 [Moles/Vol] 29 mmol/L Normal 21-31 [facility] Comment on above: Performed By: #### 2 627792 #### [facility] [address] [place] [address] Creatinine [Mass/Vol] 1.4 mg/dL High 0.5-1.3 [facility] Comment on above: Performed By: #### 2 081812 #### [facility] [address] [place] [address] Globulin (S) [Mass/Vol] 2.8 g/dL Normal 1.4-4.0 [facility] Comment on above: Performed By: #### 2 107731 #### [facility] [address] [place] [address] Glucose [Mass/Vol] 272 mg/dL High 55-199 [facility] Comment on above: Performed By: #### 2 486189 #### [facility] [address] [place] [address] Potassium [Moles/Vol] 3.9 mmol/L Normal 3.5-5.3 [facility] Comment on above: Performed By: #### 2 547003 #### [facility] [address] [place] [address] Protein [Mass/Vol] 6.2 g/dL Normal 6.0-7.8 [facility] Comment on above: Performed By: #### 2 714353 #### [facility] [address] [place] [address] Sodium [Moles/Vol] 139 mmol/L Normal 135-145 [facility] Comment on above: Performed By: #### 2 298458 #### [facility] [address] [place] [address] Urea nitrogen [Mass/Vol] 26 mg/dL High 5-21 [facility] Comment on above: Performed By: #### 2 295612 #### [facility] [address] [place] [address] Urea nitrogen/Creatinin e [Mass ratio] 19 No Units Normal 10-20 [facility] Comment on above: Performed By: #### 2 444132 #### [facility] [address] [place] [address] Consent for Treatmenton 02-11 Consent for Treatment [id number]#1.00TIFF Normal [facility] Ferritinon 03-09-2024 Ferritin [Mass/Vol] 36 ng/mL Normal 11-307 [facility] Comment on above: Performed By: #### 2 997608 #### [facility] [address] [place] [address] HEMATOLOGYOrdered By: SYSTEM SYSTEM on 03-09-2024 Basophils/100 [...] 03-09-2024 Iron [Mass/Vol] 87 microgram/dL Normal 35-153 [facility] Comment on above: Performed By: #### 2 771441 #### [facility] [address] [place] [address] Iron Saturationon 03-09-2024 Iron binding capacity [Mass/Vol] 357 microgram/dL Normal 250-400 [facility] Comment on above: Performed By: #### 2 252023 #### [facility] [address] [place] [address] Iron saturation [Mass fraction] 24 % Normal 20-50 [facility] Comment on above: Performed By: #### 2 129068 #### [facility] [address] [place] [address] Transferrinon 03-09-2024 Transferrin [Mass/Vol] 255 mg/dL Normal 200-370 [facility] Comment on above: Performed By: #### 2 467537 #### [facility] [address] [place] [address] eGFRon 03-09-2024 eGFR 40 mL/min/1.73 m2 Low >=59 [facility] Comment on above: Order Comment: Order added by Discern Expert. Performed By: #### 1 [id number] #### [facility] [address] [place] [address] Ambulatory Visit Summaryon 0 03-02-2024 Ambulatory Visit Summary Normal [address] [place] [address]- \.br\ Medications\.br \ What How Much When [...] fluticasone nasal (fluticasone Nasal 0.05 mg/ inh [place]) See instructions USE 2 SPRAYS IN EACH [...] for choosing us for your care.\.br\ \.br\ [facility] Gastroenterology Office/Clin ic Noteon 03-02-2024 Gastroenterology Office/Clinic Note Normal [facility] Comment on above: Result Comment: Elec tronically Signed By: Deborah Rashid MD\.br\Date and Time Signed: 03/02/24 13:05 EDT Postoperative Documentson Postoperative Documents [id number]#1.00TIFF Normal [facility] Reminderson 02-16-2024 Reminders Normal [facility] IntraOperative Documentson 0 02-10-2024 IntraOperative Documents [id number]#1.00TIFF Normal [facility] Consenton 02-09-2024 Consent [id number]#1.00TIFF Normal [facility] Discharge Instructionson Discharge Instructions [id number]#1.00TIFF Normal [facility] Main OR Intraoperative Recor don 02-09-2024 Main OR Intraoperative Record Normal [facility] Consent for Treatmenton 01-12 Consent for Treatment [id number]#1.00TIFF Normal [facility] Discharge Instructionson Discharge Instructions Normal [address] [place] [id number]- \.br\ New Follow Up Appointments after Discharge\.br \ Follow Up with Deborah Rashid When: Within 1 to 2 weeks\.br\ Comments:\.br\ Call for any problems.\.br\ Where:\.br\ [address], [address]\.br\ [facility] [address]\.br\ [place] [address]-\.br\ [id number] Bandwidth (1)\.br\ Medications\.br \ What How Much When [...] fluticasone nasal (fluticasone Nasal 0.05 mg/ inh [place]) See instructions USE 2 SPRAYS IN EACH [...] color.\.br\ ? \.br\ Pain in the abdomen.\.br\ [facility] Comment on above: Result Comment: Elec tronically Signed By: Modesta Walsh RN\.br\Date and Time Signed: 02/06/24 11:09 EDT Endoscopic Procedure Report - Otheron 02-06-2024 Endoscopic Procedure Report - Other Normal [facility] Comment on above: Result Comment: Elec tronically Signed By: Deborah Rashid MD\.br\Date and Time Signed: 02/06/24 11:04 EDT Other Comment: Radha landaverde Attachment - attachment storage system not supported [id number] Can be viewed in [facility] Attachment - attachment storage system not supported [id number] Can be viewed in [facility] Attachment - attachment storage system not supported [id number] Can be viewed in source systemMissing Attachment - attachment storage system not supported [id number] Can be viewed in [facility] Attachment - attachment storage system not supported [id number] Can be viewed in [facility] Attachment - attachment storage system not supported [id number] Can be viewed in source systemMissing Attachment - attachment storage system not supported [id number] Can be viewed in source systemMissing Attachment - attachment storage system not supported [id number] Can be viewed in source systemMissing Attachment - attachment storage system not supported [id number] Can be viewed in [facility] Attachment - attachment storage system not supported [id number] Can be viewed in source systemMissing Attachment - attachment storage system not supported [id number] Can be viewed in source systemMissing Attachment - attachment storage system not supported [id number] Can be viewed in source systemMissing Attachment - attachment storage system not supported [id number] Can be viewed in source systemMissing Attachment - attachment storage system not supported [id number] Can be viewed in source systemMissing Attachment - attachment storage system not supported [id number] Can be viewed in source systemMissing Attachment - attachment storage system not supported [id number] Can be viewed in source systemMissing Attachment - attachment storage system not supported [id number] Can be viewed in source systemMissing Attachment - attachment storage system not supported [id number] Can be viewed in source systemMissing Attachment - attachment storage system not supported [id number] Can be viewed in source systemMissing Attachment - attachment storage system not supported [id number] Can be viewed in source system Inpatient Patient Summaryon 02-06-2024 Inpatient Patient Summary Normal [facility] Main OR PACU I Recordon 01-12 Main OR PACU I Record Normal [facility] Main OR Preoperative Recordo n 02-06-2024 Main OR Preoperative Record Normal [facility] Monitor Recordon 02-06-2024 Monitor Record [id number]#1.00TIFF Normal [facility] Monitor Record [id number]#1.00TIFF Normal [facility] Outpatient Surgery Discharge Instructionon 02-06-2024 Outpatient Surgery Discharge Instruction Normal [facility] Patient Education - Texton 0 02-06-2024 Patient Education - Text Normal [facility] Progress Note-Physicianon Progress Note-Physician Normal [facility] Comment on above: Result Comment: Elec tronically Signed By: Jorge Luis Fang Jr., DO\.br\Date and Time Signed: 02/06/24 12:10 EDT Progress Note-Physician Normal [facility] Comment on above: Result Comment: Elec tronically Signed By: Jorge Luis Fang Jr., DO\.br\Date and Time Signed: 02/06/24 09:27 EDT Ambulatory Visit Summaryon 0 01-02-2024 Ambulatory Visit Summary Normal [address] [place] [address]- \.br\ Medications\.br \ What How Much When [...] fluticasone nasal (fluticasone Nasal 0.05 mg/ inh [place]) See instructions USE 2 SPRAYS IN EACH [...] for choosing us for your care.\.br\ \.br\ [facility] Consenton 01-02-2024 Consent [id number]#1.00TIFF Normal [facility] Family Medicine Office/Clini c Noteon 01-02-2024 Family Medicine Office/Clinic Note Normal [facility] Comment on above: Result Comment: Elec tronically Signed By: Shalini Starkey\.br\Date and Time Signed: 01/02/24 12:23 EDT Reminderson 12-22-2023 Reminders Normal [facility] Copper Lvlon 12-18-2023 Copper [Mass/Vol] 103 microgram/dL Invalid Interpretation Code 80-158 [facility] Comment on above: Result Comment: This test was developed and its performance characteristicsdetermined by [facility]. It has not been cleared or approvedby the Food and Drug Administration.Detection Limit = 5Performed at: [facility] [address] [id number] MD Christiano Kolb Performed By: #### 2 913625, 1729369, 8162051, 02131445, 1758296, 8694728, 9706906, 8767779, 20925329, 7147703 ####[facility] [address] [place] [address] CBC w/ Auto Diffon 4 Basophils/100 WBC (Bld) 1.0 % Normal 0.0-2.0 [facility] Comment on above: Performed By: #### 2 756482, 4649030, 1259967, 99025832, 9975460, 4348660, 8661144, 6979875, 78545514, 7430157 ####[address] [address] Basophils/Leukocyt es Auto (Bld) [Pure # fraction] 0.0 E9/L Normal 0.0-0.2 [facility] Comment on above: Performed By: #### 2 761973, 5120000, 0681632, 65233800, 4775228, 8764283, 6739776, 5818787, 83477874, 1988000 ####[address] [address] Eosinophils (Bld) [#/Vol] 0.2 E9/L Normal 0.0-0.5 [facility] Comment on above: Performed By: #### 2 844089, 7023919, 6016346, 39301696, 4057464, 3157461, 6636945, 8342366, 89925237, 1563821 ####[address] [address] Eosinophils/100 WBC (Bld) 4.1 % Normal 0.0-8.0 [facility] Comment on above: Performed By: #### 2 202327, 9921057, 5847188, 94985632, 1383414, 0659978, 9032789, 6689456, 28907466, 3549484 ####[address] [address] Erythrocyte distribution width (RBC) [Ratio] 13.6 % Normal 10.9-14.2 [facility] Comment on above: Performed By: #### 2 638801, 1323666, 0753204, 94419471, 5449601, 1711509, 0287173, 2831367, 64398397, 4615646 ####[facility] [address] [place] [address] Hematocrit (Bld) [Volume fraction] 36.0 % Normal 34.0-46.0 [facility] Comment on above: Performed By: #### 2 667041, 1531739, 3918940, 17053607, 1823327, 5287842, 0252036, 0275496, 83816208, 6317844 ####[facility] [address] [place] [address] Hemoglobin (Bld) [Mass/Vol] 11.6 g/dL Low 12.0-16.0 [facility] Comment on above: Performed By: #### 2 173541, 0910649, 7768127, 65330811, 7100005, 1774414, 6652960, 1866344, 84581571, 5820935 ####[address] [address] Lymphocytes (Bld) [#/Vol] 1.0 E9/L Normal 1.0-4.0 [facility] Comment on above: Performed By: #### 2 027000, 6846316, 4551966, 63990304, 5074814, 4500124, 1521268, 0743432, 46851891, 7331938 ####[address] [address] Lymphocytes/100 WBC (Bld) 24.2 % Normal 14.0-50.0 [facility] Comment on above: Performed By: #### 2 427247, 0451003, 7230936, 38416697, 6138077, 7346294, 9470112, 4356228, 09456834, 5455700 ####[address] [place] [address] MCH (RBC) [Entitic mass] 30.4 pg Normal 27.0-34.0 [facility] Comment on above: Performed By: #### 2 392109, 4443910, 0238706, 27134427, 8758864, 6613592, 2407807, 2708616, 93182999, 1942760 ####[address] [place] [address] MCHC (RBC) [Mass/Vol] 32.3 g/dL Normal 31.4-36.0 [facility] Comment on above: Performed By: #### 2 078516, 2021784, 9125617, 00922475, 3979889, 1786102, 9896051, 3689519, 55874481, 3553193 ####[address] [place] [address] MCV (RBC) [Entitic vol] 94.0 fL Normal 80.0-100.0 [facility] Comment on above: Performed By: #### 2 416417, 0968765, 6321847, 95093404, 3878561, 6989795, 8673343, 0252528, 35427443, 1981246 ####[address] [address] Monocytes (Bld) [#/Vol] 0.4 E9/L Normal 0.2-1.0 [facility] Comment on above: Performed By: #### 2 237516, 0851429, 6660203, 92712122, 2757312, 6373702, 2963313, 5058166, 59788015, 3544271 ####[address] [address] Neutrophils (Bld) [#/Vol] 2.5 E9/L Normal 2.0-7.5 [facility] Comment on above: Performed By: #### 2 036300, 4005464, 7303794, 78292241, 4877718, 8920138, 8379442, 7429643, 16816864, 9906339 ####[address] [address] Neutrophils/100 WBC (Bld) 60.7 % Normal 36.0-75.0 [facility] Comment on above: Performed By: #### 2 686130, 6320668, 0161794, 97030087, 2552235, 9572893, 1773335, 2281348, 00680589, 0955335 ####[address] [place] [address] Platelet 84.0 E9/L Low 150.0-500.0 [facility] Comment on above: Result Comment: Lidia newell with slide review Performed By: #### 2 827499, 0021496, 9941753, 60876391, 2554546, 9078398, 8158142, 5573440, 91686541, 7368172 ####[address] [place] [address] Platelet mean volume (Bld) [Entitic vol] 9.2 fL Normal 6.4-10.8 [facility] Comment on above: Performed By: #### 2 250998, 6511540, 5836527, 64320465, 3895038, 7190862, 8478931, 6588535, 47978007, 5150552 ####[address] [address] RBC (Bld) [#/Vol] 3.8 E12/L Low 4.3-5.9 [facility] Comment on above: Performed By: #### 2 110705, 1426192, 0685716, 17160411, 3217670, 3703466, 9486415, 1039103, 40968466, 5841616 ####[address] [place] [address] WBC corrected for nucl RBC Auto (Bld) [#/Vol] 4.0 E9/L Normal 4.0-11.0 [facility] Comment on above: Performed By: #### 2 807532, 6991369, 5050872, 71148633, 8474364, 2966593, 3441986, 7418339, 60587860, 7498168 ####[address] [address] CHEMISTRYOrdered By: SYSTEM SYSTEM on 12-15-2023 Albumin [...] 12-15-2023 Albumin [Mass/Vol] 3.5 g/dL Normal 3.3-5.0 [facility] Comment on above: Performed By: #### 2 815259, 3106335, 1986088, 68337009, 3668171, 8131549, 0423159, 0123771, 26938196, 6614044 ####[facility] [address] [place] [address] Albumin/Globulin (S) [Mass conc ratio] 1.3 Normal 1.1-2.2 [facility] Comment on above: Performed By: #### 2 798042, 6791618, 7065733, 13649184, 9555619, 8029109, 7331025, 8273210, 60760500, 2996754 ####[facility] [address] [place] [address] ALP [Catalytic activity/Vol] 81 Int._Unit/L Normal 21-98 [facility] Comment on above: Performed By: #### 2 748643, 2669308, 2098534, 39827428, 0368709, 6907891, 4879001, 0560049, 67532479, 7757585 ####[facility] [address] [place] [address] ALT No additional P-5'-P [Catalytic activity/Vol] 21 Int._Unit/L Normal 6-46 [facility] Comment on above: Performed By: #### 2 837025, 5801356, 3846827, 93862823, 0114150, 5510737, 6389744, 4021197, 78967932, 4913142 ####[facility] [address] [place] [address] Anion gap [Moles/Vol] 12 mmol/L Normal 6-16 [facility] Comment on above: Performed By: #### 2 575825, 9875756, 1661729, 29549999, 4100469, 6141608, 4365278, 6640126, 56659848, 3926988 ####[facility] [address] [place] [address] AST [Catalytic activity/Vol] 36 Int._Unit/L Normal 5-43 [facility] Comment on above: Performed By: #### 2 726412, 2040213, 3572564, 75320130, 9563595, 0773785, 0930727, 8180203, 88840231, 9071533 ####[address] [address] Bilirubin [Mass/Vol] 1.4 mg/dL High 0.0-1.1 [facility] Comment on above: Performed By: #### 2 631616, 7666368, 2629499, 28303029, 3185945, 7492356, 5824755, 5425020, 86706528, 7031390 ####[address] [place] [address] Calcium [Mass/Vol] 8.9 mg/dL Normal 8.9-11.1 [facility] Comment on above: Performed By: #### 2 210670, 3817713, 8410980, 33908711, 2273783, 9917128, 7183471, 4602153, 52722080, 9301590 ####[address] [place] [address] Chloride [Moles/Vol] 103 mmol/L Normal 101-111 [facility] Comment on above: Performed By: #### 2 296153, 8110778, 0256308, 54914350, 6590867, 7929281, 9580394, 5687484, 93919306, 3668194 ####[facility] [address] [place] [address] CO2 [Moles/Vol] 25 mmol/L Normal 21-31 [facility] Comment on above: Performed By: #### 2 796943, 5150472, 4929175, 81577263, 3176598, 7372756, 0304508, 6408264, 43159498, 4453927 ####[facility] [address] [place] [address] Creatinine [Mass/Vol] 2.1 mg/dL High 0.5-1.3 [facility] Comment on above: Performed By: #### 2 948534, 3419932, 7107483, 08418457, 1384636, 3697949, 8088417, 3891070, 66897770, 1621413 ####[facility] [address] [place] [address] Globulin (S) [Mass/Vol] 2.7 g/dL Normal 1.4-4.0 [facility] Comment on above: Performed By: #### 2 918228, 3055899, 0993152, 50224521, 3828427, 2907494, 3171105, 5582654, 88259768, 1589958 ####[facility] [address] [place] [address] Glucose [Mass/Vol] 167 mg/dL Normal 55-199 [facility] Comment on above: Performed By: #### 2 042777, 8365480, 5935507, 16466084, 4881418, 6910705, 2467358, 4903233, 95616120, 8326682 ####[facility] [address] [place] [address] Potassium [Moles/Vol] 3.5 mmol/L Normal 3.5-5.3 [facility] Comment on above: Performed By: #### 2 472332, 6823271, 5227793, 55838640, 4330364, 9840636, 0693843, 6946672, 71389047, 9549345 ####[facility] [address] [place] [address] Protein [Mass/Vol] 6.2 g/dL Normal 6.0-7.8 [facility] Comment on above: Performed By: #### 2 814236, 5939824, 5306921, 55847453, 8657518, 7136500, 0623169, 5462574, 65510723, 7500783 ####[facility] [address] [place] [address] Sodium [Moles/Vol] 136 mmol/L Normal 135-145 [facility] Comment on above: Performed By: #### 2 505340, 2807822, 0882499, 62857102, 6646473, 5784611, 7130964, 7631406, 18982655, 1165264 ####[address] [place] [address] Urea nitrogen [Mass/Vol] 20 mg/dL Normal 5-21 [facility] Comment on above: Performed By: #### 2 197498, 3125027, 1512423, 36253161, 1184408, 9928403, 4397904, 3105216, 49710335, 5476892 ####[address] [place] [address] Urea nitrogen/Creatinin e [Mass ratio] 10 No Units Normal 10-20 [facility] Comment on above: Performed By: #### 2 261888, 6661808, 6966741, 01737547, 5932911, 0115490, 6068939, 2535072, 21142542, 7185229 ####[address] [place] [address] Consent for Treatmenton Consent for Treatment [id number]#1.00TIFF Normal [facility] Consent for Treatment [id number]#1.00TIFF Normal [facility] Ferritinon 12-15-2023 Ferritin [Mass/Vol] 19 ng/mL Normal 11-307 [facility] Comment on above: Performed By: #### 2 624761, 1144967, 1951102, 47358739, 9425103, 9685830, 5244877, 6486444, 26344215, 7713261 ####[facility] [address] [place] [address] Folateon 12-15-2023 Folate [Mass/Vol] 14.8 ng/mL Normal >=6.7 [facility] Comment on above: Performed By: #### 2 420061, 5288943, 0764204, 75301860, 5385588, 4338976, 0449880, 0633537, 13380628, 9099781 ####[facility] [address] [place] [address] HEMATOLOGYOrdered By: SYSTEM SYSTEM on 12-15-2023 Basophils/100 [...] 12-15-2023 Iron [Mass/Vol] 144 microgram/dL Normal 35-153 [facility] Comment on above: Performed By: #### 2 429262, 7121502, 9059224, 46685608, 0088422, 2624168, 7619982, 2367072, 45692155, 0233938 ####[facility] [address] [place] [address] Iron Saturationon 12-15-2023 Iron binding capacity [Mass/Vol] 427 microgram/dL High 250-400 [facility] Comment on above: Performed By: #### 2 860155, 7801698, 5705819, 52925959, 5279309, 1385110, 4385929, 1559070, 89854745, 8831646 ####[facility] [address] [place] [address] Iron saturation [Mass fraction] 34 % Normal 20-50 [facility] Comment on above: Performed By: #### 2 703582, 6131293, 9371254, 35608891, 3820213, 3623579, 2588738, 5619483, 52192054, 5630772 ####[facility] [address] [place] [address] Oncology Progress Noteon Oncology Progress Note Normal [facility] Transferrinon 12-15-2023 Transferrin [Mass/Vol] 305 mg/dL Normal 200-370 [facility] Comment on above: Performed By: #### 2 519897, 9971078, 9509597, 27978316, 6811634, 6645356, 2993033, 9252623, 49680290, 3740443 ####[address] [place] [address] Vit B12on 12-15-2023 Cobalamin (Vitamin B12) [Mass/Vol] 480 pg/mL Normal 50-1500 [facility] Comment on above: Performed By: #### 2 321554, 9599380, 0370164, 46909633, 2182074, 9459481, 9515245, 7955139, 34902638, 6105229 ####[facility] [address] [place] [address] eGFRon 12-15-2023 eGFR 25 mL/min/1.73 m2 Low >=59 [facility] Comment on above: Order Comment: Order added by Discern Expert. Performed By: #### 2 429530, 6831081, 2964138, 27008655, 9653142, 9060253, 3782988, 9717320, 26081414, 0397246 ####[facility] [address] [place] [address] Consultation Noteon 12-04-19 24 Consultation Note [id number]#1.00TIFF Normal [facility] Dexa Scanson 11-24-2023 Dexa Scans [id number]#1.00TIFF Normal [facility] Outside Mammographyon 2023 Outside Mammography [id number]#1.00TIFF Normal [facility] Consent for Procedure/Surger yon 10-03-2023 Consent for Procedure/Surgery [id number]#1.00TIFF Normal [facility] Ambulatory Visit Summaryon 1 12-02-2022 Ambulatory Visit Summary Normal [address] [id number]- \.br\ You Need to Schedule the Following [...] See instructions Prior to colonsocopy. Pickup at [facility]/pharmacy #[id number]\.br\ Unchanged albuterol (Albuterol (Eqv-ProAir HFA) 90 mcg/ [...] Unchanged fluticasone nasal (Flonase 0.05 mg/ inh [place]) 2 Sprays Nasal Inhalation Every day each [...] Pharmacy Information\.br \ [id number]: [address], [place] [id number] [phone]\.br\ Allergies\.br\ metFORMIN (Nausea, Dizziness, Unknown)\.br\ sulfa drugs [...] chewing tobacco. If you need help quitti [facility] Gastroenterology Office/Clin ic Noteon 10-01-2023 Gastroenterology Office/Clinic Note Normal [facility] Comment on above: Result Comment: Elec tronically Signed By: Ashlie Mead CNP\.br\Date and Time Signed: 10/01/23 12:54 EST Patient Educationon 10-01-20 Patient Education Normal [facility] Ambulatory Visit Summaryon 1 11-30-2022 Ambulatory Visit Summary Invalid Interpretation Code [address] [place] [address]- \.br\ Someone Will Contact You Regarding These Appointments\.b r\ [facility] [place], Podiatry, 09/29/23 11:47:00 EST, Hypertension [facility] Ambulatory Visit Summary Normal [address] [place] [address]- \.br\ Medications\.br \ What How Much When [...] Unchanged fluticasone nasal (Flonase 0.05 mg/ inh [place]) 2 Sprays Nasal Inhalation Every day each [...] for choosing us for your care.\.br\ \.br\ [facility] Family Medicine Office/Clini c Noteon 09-29-2023 Family Medicine Office/Clinic Note Normal [facility] Comment on above: Result Comment: Elec tronically Signed By: Willian Barrios MD\.br\Date and Time Signed: 09/29/23 11:54 EST Patient Educationon 09-29-20 23 Patient Education Normal [facility] Physician Referralon 023 Physician Referral [id number]#1.00TIFF Normal [facility] RAD - MISCon 09-25-2023 [place] [facility] [id number]#1.00TIFF Normal [facility] Ambulatory Visit Summaryon 1 11-25-2022 Ambulatory Visit Summary Invalid Interpretation Code [address] [address]- \.br\ Friday 11:00 AM EST \.br\ With:\.br\ Where: [facility] Family Medicine Office/Clini c Noteon 09-24-2023 [facility] Medicine Office/Clinic Note Normal [facility] Comment on above: Result Comment: Elec tronically Signed By: Willian Barrios MD\.br\Date and Time Signed: 09/24/23 14:57 EST Patient Educationon 09-24-20 Patient Education Normal [facility] Ambulatory Visit Summaryon 1 11-18-2022 Ambulatory Visit Summary Invalid Interpretation Code [address] [address]- \.br\ Friday 11:00 AM EST \.br\ With:\.br\ Where: [facility] Family Medicine Office/Clini c Noteon 09-17-2023 [facility] Medicine Office/Clinic Note Normal [facility] Comment on above: Result Comment: Elec tronically Signed By: Willian Barrios MD\.br\Date and Time Signed: 09/17/23 17:34 EST Patient Educationon 09-17-20 Patient Education Normal [facility] .Interpretation:on 3 HCV Ab IA Ql Comment Invalid Interpretation Code [facility] Comment on above: Result Comment: Not infected with HCV unless early or acute infection issuspected (which may be delayed in an immunocompromisedindividual), or other evidence exists to indicate HCV infection.Performed at: [address] [place], [place] [id number] PhD David Alexandra Performed By: #### 2 789498, 4439089, 2113241, 8853854, 4268970, 6124026, 0082309, 68128657, 4706408, 9387771, 2543889262, 6729760, 7515547560, 048675134, 3210686, 6743982, 7886966928, 9348309 ####[facility] [address] [place] [address] HCV Antibody RFX to Quant PC Alnre 09-16-2023 HCV IgG IA Ql Non-Reactive Invalid Interpretation Code Non Reactive [facility] Comment on above: Result Comment: Perf ormed at: [id number] [place], [place] [id number] PhD David Alexandra Performed By: #### 2 014688, 7011257, 3377347, 0101961, 9008268, 3631848, 5524387, 93994217, 0008030, 5429362, 9478833297, 9668700, 4005316517, 132629024, 0966718, 2376907, 7003690493, 0312073 ####[facility] [address] [place] [place] [address] HIV Screen 4th Generation wR fxon 09-16-2023 HIV 1+2 Ab+HIV1 p24 Ag IA Ql Non-Reactive Invalid Interpretation Code Non Reactive [facility] Comment on above: Result Comment: HIV NegativeHIV-1/HIV-2 antibodies and HIV-1 p24 antigen were NOT detected.There is no laboratory evidence of HIV infection.Performed at: [facility] [address] [place], [place] [id number] PhD David Alexandra Performed By: #### 2 407990, 0248925, 0438356, 5410298, 5772637, 9016576, 7342242, 77893159, 5633938, 2992350, 3514629439, 4612327, 3496920874, 849677239, 5853991, 5351497, 8519444536, 9826793 ####[facility] [address] [place] [address] Hep A IgMon 09-16-2023 HAV IgM IA Ql Negative Invalid Interpretation Code Negative [facility] Comment on above: Result Comment: Perf ormed at: [address] [id number] PhD David Alexandra Performed By: #### 2 997049, 9369278, 5408920, 4929305, 2848767, 1181477, 9344672, 58934073, 7707990, 3000805, 8603357192, 8713562, 9130261999, 504136032, 6389596, 5420732, 4479926166, 8664787 ####[address] [address] Hep B Core Ab, IgMon 023 HBV core IgM IA Ql Negative Invalid Interpretation Code Negative [facility] Comment on above: Result Comment: Perf ormed at: [address] [id number] PhD David Alexandra Performed By: #### 2 451726, 5904125, 3012226, 9145375, 3237727, 2608946, 7045483, 38608121, 0757313, 4741106, 2783648399, 4866029, 1582357531, 580533326, 5733410, 0005269, 0050024275, 7594137 ####[address] [place] [address] Hep Bs Abon 09-16-2023 HBV surface Ab Ql (S) Non-Reactive Invalid Interpretation Code [facility] Comment on above: Result Comment: Non Reactive: Inconsistent with immunity,less than 10 mIU/mLReactive: Consistent with immunity,greater than 9.9 mIU/mLPerformed at: [address] [id number] PhD David Alexandra Performed By: #### 2 075982, 8223172, 6305884, 0303069, 0877954, 2663614, 7682854, 84254756, 3831252, 8179476, 9709971326, 6887350, 0886449995, 768919939, 8781454, 2356319, 8063480318, 3755014 ####[facility] [address] [place] [address] Hep Bs Agon 09-16-2023 HBV surface Ag IA Ql Negative Invalid Interpretation Code Negative [facility] Comment on above: Result Comment: Perf ormed at: [facility] [address] [place], [place] [id number] PhD David Alexandra Performed By: #### 2 549798, 5167188, 2261607, 3998201, 3765712, 9358591, 6872163, 49539865, 3645152, 3752590, 7601679245, 1643924, 6723938885, 340189857, 0016468, 5267063, 5527867673, 2266254 ####[facility] [address] [place] [address] Auto Diffon 09-15-2023 Basophils/100 WBC (Bld) 1.3 % Normal 0.0-2.0 [facility] Comment on above: Order Comment: Order Added by Discern Expert. Performed By: #### 2 957039, 3884719, 0879825, 1033617, 1080347, 2791429, 3514855, 80059409, 6354922, 1420747, 8401219480, 1399843, 3157318097, 453037452, 7083824, 7710422, 5266884422, 6796842 ####[address] [place] [address] Basophils/Leukocyt es Auto (Bld) [Pure # fraction] 0.0 E9/L Normal 0.0-0.2 [facility] Comment on above: Order Comment: Order Added by Discern Expert. Performed By: #### 2 541030, 1080056, 0919533, 5287343, 5224685, 2579637, 7721950, 66717376, 0653221, 3410283, 5945968229, 2326780, 9528050187, 877382707, 6202242, 7131773, 3443079684, 2645174 ####[facility] [address] [place] [address] Eosinophils/100 WBC (Bld) 3.4 % Normal 0.0-8.0 [facility] Comment on above: Order Comment: Order Added by Discern Expert. Performed By: #### 2 792824, 4762964, 7230386, 3321979, 2386439, 0190160, 1007534, 52570290, 6786046, 0759288, 2470100559, 9263589, 2879406156, 784433177, 5687423, 1582878, 3676992244, 6072700 ####[address] [place] [address] Eosinophils/Leukoc ytes Auto (Bld) [Pure # fraction] 0.1 E9/L Normal 0.0-0.5 [facility] Comment on above: Order Comment: Order Added by Discern Expert. Performed By: #### 2 075982, 3232213, 5413498, 3942697, 7793853, 7390432, 2466048, 32778926, 5172031, 9166964, 8031767134, 1501935, 7535991640, 389923522, 2046058, 0074967, 2143711893, 6065511 ####[address] [place] [address] Lymphocytes/100 WBC (Bld) 25.0 % Normal 14.0-50.0 [facility] Comment on above: Order Comment: Order Added by Discern Expert. Performed By: #### 2 775387, 0841446, 1790658, 6437877, 3703333, 6236156, 1722030, 04377005, 7964561, 4974529, 3956147688, 7221171, 3306895246, 946376518, 3661740, 6822510, 1402806111, 1169485 ####[address] [place] [address] Lymphocytes/Leukoc ytes Auto (Bld) [Pure # fraction] 0.7 E9/L Low 1.0-4.0 [facility] Comment on above: Order Comment: Order Added by Discern Expert. Performed By: #### 2 [id number], 2858458, 8094433, 5063453, 5206617, 6698911, 8610314, 94080298, 8384910, 0450794, [id number], 8989447, [id number], 053623080, 2070020, 5089677, [id number], 5635081 ####[address] [place] [address] Monocytes/100 WBC (Bld) 10.1 % Normal 4.0-14.0 [facility] Comment on above: Order Comment: Order Added by Discern Expert. Performed By: #### 2 533384, 7203710, 3038214, 1554584, 8205069, 4283430, 2677699, 63332762, 7144701, 5024916, [id number], 5467551, [id number], 509798783, 3344618, 4744021, [id number], 1725611 ####[address] [address] Monocytes/Leukocyt es Auto (Bld) [Pure # fraction] 0.3 E9/L Normal 0.2-1.0 [facility] Comment on above: Order Comment: Order Added by Discern Expert. Performed By: #### 2 644726, 2196230, 3845203, 7033875, 7205059, 0164682, 3489200, 30812434, 2718399, 0450640, 7774912415, 0284966, 4288194144, 704171908, 6154937, 7644754, 9420342492, 5506006 ####[address] [place] [address] Neutrophils/100 WBC (Bld) 60.2 % Normal 36.0-75.0 [facility] Comment on above: Order Comment: Order Added by Discern Expert. Performed By: #### 2 435594, 1291127, 3134090, 3460664, 7950184, 4431294, 3770016, 84031640, 6061149, 2777095, 8532075158, 5167139, 7684439708, 747844693, 1659633, 7601436, 5401599416, 8140731 ####[facility] [address] [place] [address] Neutrophils/Leukoc ytes Auto (Bld) [Pure # fraction] 1.6 E9/L Low 2.0-7.5 [facility] Comment on above: Order Comment: Order Added by Discern Expert. Performed By: #### 2 390447, 9280069, 0231523, 1843227, 7696996, 9694758, 5624424, 50804232, 8897415, 3864953, 7049576033, 8337324, 1275678649, 980242738, 6815231, 9264031, 2999205798, 5766354 ####[address] [place] [address] CBC w/ Auto Diffon 3 Erythrocyte distribution width (RBC) [Ratio] 13.2 % Normal 10.9-14.2 [facility] Comment on above: Performed By: #### 2 898538, 6287042, 6185937, 7328393, 3913588, 5797480, 4550886, 63817050, 9804239, 9978021, 1205738660, 6846943, 8926415051, 668094200, 2325441, 5250532, 5588449575, 4643482 ####[facility] [address] [place] [address] Hematocrit (Bld) [Volume fraction] 36.5 % Normal 34.0-46.0 [facility] Comment on above: Performed By: #### 2 061191, 1446068, 4795702, 4457696, 3667154, 5765114, 4444317, 79792665, 2169349, 6652682, 1834846438, 4520691, 8400656795, 930807256, 1768920, 5812494, 7322056715, 3585500 ####[facility] [address] [place] [address] Hemoglobin (Bld) [Mass/Vol] 12.3 g/dL Normal 12.0-16.0 [facility] Comment on above: Performed By: #### 2 488938, 4255867, 4049329, 0731046, 3171996, 5206099, 2090610, 39516372, 3057656, 3061828, 2578599623, 7332649, 8072803752, 022201443, 0471493, 8759198, 9276432955, 3516562 ####[address] [address] MCH (RBC) [Entitic mass] 31.3 pg Normal 27.0-34.0 [facility] Comment on above: Performed By: #### 2 415150, 3620782, 7127640, 1091239, 9220051, 2412401, 3935025, 63287409, 8708826, 0625566, 9840206767, 8383051, 4928570808, 885518842, 6822593, 0191389, 6640852762, 9226397 ####[address] [address] MCHC (RBC) [Mass/Vol] 33.7 g/dL Normal 31.4-36.0 [facility] Comment on above: Performed By: #### 2 030966, 3550160, 4482066, 4583613, 3021456, 1622365, 2702308, 41390348, 3211272, 7654912, 2167195628, 4091967, 8886399056, 694092942, 6281113, 5095407, 0056634646, 6130400 ####[address] [place] [address] MCV (RBC) [Entitic vol] 92.8 fL Normal 80.0-100.0 [facility] Comment on above: Performed By: #### 2 958463, 2271759, 2658085, 6020481, 9495328, 8788147, 2006992, 10539102, 1410107, 3853440, 3423480277, 0295130, 3693818247, 454039713, 7700072, 8378888, 0836931053, 1790959 ####[facility] [address] [place] [address] Platelet mean volume (Bld) [Entitic vol] 8.5 fL Normal 6.4-10.8 [facility] Comment on above: Performed By: #### 2 996605, 8188080, 5340195, 7617785, 6564340, 3854840, 6469261, 92624953, 6076309, 7828540, 5764727808, 6330270, 0510911448, 048582927, 0144266, 4312366, 2457473159, 1350083 ####[address] [address] Platelets (Bld) [#/Vol] 89.0 E9/L Low 150.0-500.0 [facility] Comment on above: Result Comment: Plat elet count verified using smear estimate Performed By: #### 2 149516, 3272950, 1380255, 4093387, 0140281, 8263424, 5274227, 58899712, 2403861, 8443931, 1071827167, 0994416, 5900234692, 410925140, 2034909, 2177731, 2946708865, 5813769 ####[facility] [address] [place] [address] RBC (Bld) [#/Vol] 3.9 E12/L Low 4.3-5.9 [facility] Comment on above: Performed By: #### 2 710495, 1943223, 0452358, 4989702, 1193672, 9698915, 9999908, 68463659, 5042006, 2111135, 3023441755, 7054184, 8972189638, 376507643, 4884382, 6025128, 1745154300, 6030428 ####[facility] [address] [place] [address] WBC corrected for nucl RBC Auto (Bld) [#/Vol] 2.6 E9/L Low 4.0-11.0 [facility] Comment on above: Performed By: #### 2 621958, 6264263, 6049300, 2971079, 4107220, 9701014, 8283626, 87216661, 3563921, 4525672, 3284643268, 6149647, 2323944684, 544184591, 6788272, 3110825, 5899110905, 9722463 ####[facility] [address] [place] [address] CHEMISTRYOrdered By: SYSTEM SYSTEM on 09-15-2023 Albumin [...] g/dL Normal 6.0 - 7.8 gm/dL [facility] [place]isol Sodium [Moles/Vol] 134 mmol/L Low 135 - 145 mmol/L [facility] [place] Transferrin [Mass/Vol] 286 mg/dL Normal 200 - 370 mg/dL [facility] Remisol Urea nitrogen [Mass/Vol] 12 mg/dL Normal 5 - 21 mg/dL [facility] [place]isol Urea nitrogen/Creatinin e [Mass ratio] 11 mg/mg Normal 10 - 20 [facility] Remisol CMPon 09-15-2023 Albumin [Mass/Vol] 3.5 g/dL Normal 3.3-5.0 [facility] Comment on above: Performed By: #### 2 774488, 7667850, 9596341, 3321264, 4713627, 3166622, 4561050, 37772947, 5697296, 7436365, 3888148799, 9348566, 7800988732, 952857299, 3203306, 3660897, 9695010086, 4124249 ####[facility] [address] [place] [address] Albumin/Globulin (S) [Mass conc ratio] 1.0 Low 1.1-2.2 [facility] Comment on above: Performed By: #### 2 324746, 2432357, 0943006, 7031692, 0316625, 0782544, 7130774, 17997151, 6080653, 3286471, 1083457377, 3364476, 0366545598, 461162956, 9322117, 3696185, 7047821294, 4948498 ####[facility] [address] [place] [address] ALP [Catalytic activity/Vol] 81 Int._Unit/L Normal 21-98 [facility] Comment on above: Performed By: #### 2 646503, 9012862, 7285206, 0098465, 5830962, 5078983, 8770465, 80590691, 7998107, 8838648, 1622006694, 2945866, 7533640209, 406614970, 2655930, 1301533, 8175580603, 5734954 ####[facility] [address] [place] [address] ALT No additional P-5'-P [Catalytic activity/Vol] 23 Int._Unit/L Normal 6-46 [facility] Comment on above: Performed By: #### 2 127248, 9637021, 6919536, 5250418, 5362901, 6686815, 2428716, 03815209, 6671717, 5556003, 9695123145, 3431463, 2906700462, 784038082, 0722181, 1434126, 3224174423, 0310654 ####[address] [place] [address] Anion gap [Moles/Vol] 11 mmol/L Normal 6-16 [facility] Comment on above: Performed By: #### 2 795955, 9067340, 3331338, 0163508, 0459024, 0438511, 3025758, 11053516, 5653597, 5283595, 5601548609, 5891438, 4074548166, 538963262, 2922074, 4123202, 7475001763, 6754951 ####[address] [place] [address] AST [Catalytic activity/Vol] 42 Int._Unit/L Normal 5-43 [facility] Comment on above: Performed By: #### 2 088214, 8980135, 1905194, 4856330, 4473627, 6202596, 8069139, 39883050, 0034497, 8375291, 8061861684, 4197543, 2486800836, 822393066, 1188145, 0807874, 4389765522, 9180776 ####[facility] [address] [place] [address] Bilirubin [Mass/Vol] 1.0 mg/dL Normal 0.0-1.1 [facility] Comment on above: Performed By: #### 2 305052, 8148993, 4869608, 7803806, 0880612, 9023756, 3276705, 25323295, 0701797, 2871852, 2491003354, 8377784, 3817347246, 466145259, 4957817, 4001071, 6907543626, 6954803 ####[facility] [address] [place] [address] Calcium [Mass/Vol] 9.0 mg/dL Normal 8.9-11.1 [facility] Comment on above: Performed By: #### 2 133958, 7749812, 3017604, 6304373, 3613153, 4061927, 5320364, 93104934, 3072138, 9850385, 9162484589, 3911765, 3048139016, 038771052, 0187235, 6735418, 9657063019, 0384735 ####[address] [place] [address] Chloride [Moles/Vol] 103 mmol/L Normal 101-111 [facility] Comment on above: Performed By: #### 2 187233, 7566243, 9710454, 8175982, 3072968, 1066247, 0316898, 49360556, 9214016, 6797358, 4684524495, 8559152, 1522234724, 810368299, 6960581, 5349794, 1401306855, 1424648 ####[facility] [address] [place] [address] CO2 [Moles/Vol] 24 mmol/L Normal 21-31 [facility] Comment on above: Performed By: #### 2 052573, 8322054, 2500322, 1333214, 4472020, 3556704, 5099350, 31080902, 5167713, 3456187, 3003541366, 8667561, 1175319884, 835839148, 4556121, 1956671, 8454930235, 4056067 ####[facility] [address] [place] [address] Creatinine [Mass/Vol] 1.1 mg/dL Normal 0.5-1.3 [facility] Comment on above: Performed By: #### 2 342303, 7823944, 5598531, 6945732, 3025499, 1565677, 9141099, 14778069, 3163083, 2599486, 1336816451, 3071446, 5450716986, 476238670, 1572117, 0670643, 8461206229, 1746947 ####[facility] [address] [place] [address] Globulin (S) [Mass/Vol] 3.4 g/dL Normal 1.4-4.0 [facility] Comment on above: Performed By: #### 2 155356, 4645024, 2526094, 3096244, 3013462, 6542378, 8951656, 05937395, 8092768, 6105932, 0420552791, 9883777, 7691703600, 955939416, 3298456, 1160673, 9000135489, 8666158 ####[facility] [address] [place] [address] Glucose [Mass/Vol] 307 mg/dL High 55-199 [facility] Comment on above: Result Comment: If t his glucose result represents a fasting glucose, interpretation should refer to the following reference range: 55-99 mg/dL Performed By: #### 2 086252, 7144642, 0995005, 2873179, 7503157, 2852696, 6255081, 82211927, 3216877, 1827133, 5686204342, 6857957, 0143464280, 477443411, 5573666, 9275912, 6989088984, 4253391 ####[facility] [address] [place] [address] Potassium [Moles/Vol] 3.9 mmol/L Normal 3.5-5.3 [facility] Comment on above: Performed By: #### 2 670796, 9246602, 1253364, 7381833, 5113436, 6327134, 6866704, 81739872, 2899527, 0792607, 5703456317, 3576055, 2308227177, 966203270, 1464931, 3805273, 5988043486, 8769546 ####[facility] [address] [place] [address] Protein [Mass/Vol] 6.9 g/dL Normal 6.0-7.8 [facility] Comment on above: Performed By: #### 2 836124, 2816174, 9322153, 4822971, 5574518, 5305483, 3379571, 66403522, 0463323, 0457283, 7311116286, 7442438, 0698271971, 634124470, 1339031, 3363045, 1122520822, 0036350 ####[facility] [address] [place] [address] Sodium [Moles/Vol] 134 mmol/L Low 135-145 [facility] Comment on above: Performed By: #### 2 099630, 7752104, 9224689, 8389356, 2696787, 7035532, 8291533, 47901009, 0570639, 1639407, 2734209794, 5838555, 7603235376, 667853933, 2323436, 6156215, 9095988528, 5745291 ####[facility] [address] [place] [address] Urea nitrogen [Mass/Vol] 12 mg/dL Normal 5-21 [facility] Comment on above: Performed By: #### 2 621906, 5477368, 6658178, 1583740, 2563128, 2988085, 2349835, 34871692, 9090094, 7817859, 6656863977, 9845338, 2907692542, 129611936, 9224995, 5880790, 9187196269, 9256568 ####[facility] [address] [place] [address] Urea nitrogen/Creatinin e [Mass ratio] 11 No Units Normal 10-20 [facility] Comment on above: Performed By: #### 2 119973, 5417971, 5391990, 8119703, 0168836, 6521299, 0668330, 77573033, 6585747, 3745362, 7705577474, 3551976, 9326819733, 972253545, 5929164, 5070451, 4565036849, 3175642 ####[facility] [address] [place] [address] Consent for Treatmenton Consent for Treatment [id number]#1.00TIFF Normal [facility] Ferritinon 09-15-2023 Ferritin [Mass/Vol] 20 ng/mL Normal 11-307 [facility] Comment on above: Result Comment: NORM ALS MEN <30 YRS 16-132 ng/mL MEN >30 YRS 8-338 ng/mL WOMEN (PREMEN) 6-104 ng/mL WOMEN (POSTMEN) 12-210 ng/mL Performed By: #### 2 013269, 8489541, 1438699, 0849837, 5754343, 7730432, 1010671, 15464404, 6365979, 0762239, 8683756143, 0177157, 9769321453, 697303104, 4936089, 9954607, 6256256391, 8667214 ####[facility] [address] [place] [address] Folateon 09-15-2023 Folate [Mass/Vol] 14.7 ng/mL Normal >=6.7 [facility] Comment on above: Performed By: #### 2 691456, 7545985, 8546402, 6369829, 1349441, 3683472, 6935935, 03492571, 6220511, 1784051, 4214022466, 8350134, 1455711272, 843574562, 1533309, 1221417, 9501957375, 6892230 ####[facility] [address] [place] [address] HEMATOLOGYOrdered By: SYSTEM SYSTEM on 09-15-2023 Basophils/100 [...] 09-15-2023 Iron [Mass/Vol] 73 microgram/dL Normal 35-153 [facility] Comment on above: Performed By: #### 2 147468, 2827168, 7558383, 0659622, 1693984, 6512462, 6473416, 40910105, 7969967, 9728789, 2186716244, 6858479, 9436917188, 860034689, 7710813, 2948528, 5532776379, 9341306 ####[facility] [address] [place] [address] Iron Saturationon 09-15-2023 Iron binding capacity [Mass/Vol] 401 microgram/dL High 250-400 [facility] Comment on above: Performed By: #### 2 766596, 5410206, 5514081, 4533726, 0754079, 8516546, 4972936, 92929201, 9436031, 5632660, 8320900337, 8590107, 0665562211, 005247588, 3434332, 0403666, 1022828606, 8107518 ####[facility] [address] [place] [address] Iron saturation [Mass fraction] 18 % Low 20-50 [facility] Comment on above: Performed By: #### 2 124998, 9456726, 0411760, 6520649, 7444705, 8207144, 4984680, 57654958, 0847887, 8301943, 5359191005, 5964206, 1695231143, 017471688, 4301881, 3605643, 6410755974, 7670991 ####[facility] [address] [place] [address] LDHon 09-15-2023 LDH [Catalytic activity/Vol] 181 Int._Unit/L Normal 93-218 [facility] Comment on above: Performed By: #### 2 369588, 0131816, 6185160, 5322860, 5940569, 8716448, 9453869, 01789132, 3122256, 0855422, 9889838648, 1468195, 4734633219, 541549884, 6378639, 1203309, 1588309735, 5122778 ####[address] [address] Transferrinon 09-15-2023 Transferrin [Mass/Vol] 286 mg/dL Normal 200-370 [facility] Comment on above: Performed By: #### 2 516193, 2026560, 5692709, 8796184, 9647616, 0322429, 0948408, 98434893, 7945716, 1862075, 8967529569, 5718519, 7112427836, 647457410, 6534817, 9625761, 9765293904, 6063392 ####[address] [address] Vit B12on 09-15-2023 Cobalamin (Vitamin B12) [Mass/Vol] 508 pg/mL Normal 50-1500 [facility] Comment on above: Performed By: #### 2 933040, 9242880, 9086458, 4799751, 9739520, 9034071, 8977052, 76887294, 6794312, 2270670, 4342815521, 5072464, 1563106810, 471794234, 2849034, 0280008, 3731390764, 9991186 ####[address] [address] eGFRon 09-15-2023 GFR/1.73 sq M.predicted among non-blacks MDRD (S/P/Bld) [Vol rate/Area] 54 mL/min/1.73 m2 Low >=59 [facility] Comment on above: Order Comment: Order added by Discern Expert. Result Comment: [employer] annabella kidney disease could be indicated at eGFR's of less than 60 mL/min/1.73m2. Kidney failure is indicated at less than 15 mL/min/1.73m2. Performed By: #### 2 610207, 9875690, 7628319, 4806101, 0065235, 7538645, 1696872, 08174302, 7761022, 3195474, 1042854717, 4746229, 0287533407, 110723416, 2986112, 7826986, 2653510291, 1030770 ####[facility] [address] [place] [address] Family Medicine Office/Clini c Noteon 09-01-2023 Family Medicine Office/Clinic Note Normal [facility] Comment on above: Result Comment: Elec tronically Signed By: Willian Barrios MD\.br\Date and Time Signed: 09/01/23 12:57 EST\.br\Electronically Co-Signed By: Willie Walker\.br\Date and Time Co-Signed: 08/29/23 12:10 EST Outside Diabetes Eye Examon 09-01-2023 Outside Diabetes Eye Exam [id number]#1.00TIFF Normal [facility] Ambulatory Visit Summaryon 10-29-2022 Ambulatory Visit Summary Invalid Interpretation Code [address] [place] [address]- \.br\ Friday 12:40 PM EST \.br\ With: Ashlie Mead CNP\.br\ Where: [facility] Ambulatory Visit Summary Invalid Interpretation Code [address] [place] [address]- \.br\ Friday 12:40 PM EST \.br\ With: Ashlie Mead CNP\.br\ Where: [facility] Patient Educationon 08-29-20 Patient Education Normal [facility] Screenson 08-29-2023 Screens [id number]#1.00TIFF [facility] Population Healthon 08-21-20 Population Health Normal [facility] Population Healthon 08-14-20 Population Health Normal [facility] Population Healthon 08-07-20 Population Health Normal [facility] Reminderson 08-06-2023 Reminders - From: Ashlie Mead CNP To: Regina Hollingsworth; Sent: 07/31/2023 10:00:12 EDT Show up: 07/31/2023 10:01:00 EDT Subject: Ambulatory Reminder Reminder/Recall Colonoscopy 01/2024. 6 month colon recall 02/03 [facility] Immunization Recordson 08-04 Immunization Records [id number]#1.00TIFF [facility] Ambulatory Visit Summaryon 1 Ambulatory Visit Summary Invalid Interpretation Code [address] [place] [address]- \.br\ Friday 10:00 AM EST \.br\ With:\.br\ Where: [facility]\.br\ Friday 11:20 AM EST \.br\ With: Willian Barrios MD\.br\ Where: [facility] Gastroenterology Office/Clin ic Noteon 07-31-2023 Gastroenterology Office/Clinic Note Normal [facility] Comment on above: Result Comment: Elec tronically Signed By: Ashlie Mead CNP\.br\Date and Time Signed: 07/31/23 10:07 EDT Patient Educationon 07-31-20 Patient Education Normal [facility] Ambulatory Visit Summaryon 1 Ambulatory Visit Summary Invalid Interpretation Code [address] [place] [address]- \.br\ Friday 2:20 PM EST \.br\ With: Willian Barrios MD\.br\ Where: [facility] Family Medicine Office/Clini c Noteon 07-30-2023 Family Medicine Office/Clinic Note Normal [facility] Comment on above: Result Comment: Elec tronically Signed By: Willian Barrios MD\.br\Date and Time Signed: 07/30/23 08:00 EDT IntraOperative Documentson 1 IntraOperative Documents [id number]#1.00TIFF Normal [facility] Patient Educationon 07-30-20 Patient Education Normal [facility] Population Healthon 07-29-20 23 Population Health Normal [facility] Discharge Instructionson Discharge Instructions [id number]#1.00TIFF Normal [facility] Main OR Intraoperative Recor don 07-28-2023 Main OR Intraoperative Record Normal [facility] Auto Diffon 07-25-2023 Basophils/100 WBC (Bld) 0.9 % Normal 0.0-2.0 [facility] Comment on above: Order Comment: Order Added by Discern Expert. Performed By: #### 2 003140, 1429550 ####[facility] [address] [place] [address] Basophils/Leukocyt es Auto (Bld) [Pure # fraction] 0.0 E9/L Normal 0.0-0.2 [facility] Comment on above: Order Comment: Order Added by Discern Expert. Performed By: #### 2 885351, 8764730 ####[facility] [address] [place] [address] Eosinophils/100 WBC (Bld) 3.2 % Normal 0.0-8.0 [facility] Comment on above: Order Comment: Order Added by Discern Expert. Performed By: #### 2 835855, 7874125 ####[address] [address] Eosinophils/Leukoc ytes Auto (Bld) [Pure # fraction] 0.1 E9/L Normal 0.0-0.5 [facility] Comment on above: Order Comment: Order Added by Discern Expert. Performed By: #### 2 621552, 1000692 ####[address] [address] Lymphocytes/100 WBC (Bld) 25.7 % Normal 14.0-50.0 [facility] Comment on above: Order Comment: Order Added by Discern Expert. Performed By: #### 2 070347, 2893556 ####[address] [address] Lymphocytes/Leukoc ytes Auto (Bld) [Pure # fraction] 0.6 E9/L Low 1.0-4.0 [facility] Comment on above: Order Comment: Order Added by Discern Expert. Performed By: #### 2 539638, 0319717 ####[address] [address] Monocytes/100 WBC (Bld) 10.8 % Normal 4.0-14.0 [facility] Comment on above: Order Comment: Order Added by Areli Expert. Performed By: #### 2 946153, 9530141 ####[address] [address] Monocytes/Leukocyt es Auto (Bld) [Pure # fraction] 0.3 E9/L Normal 0.2-1.0 [facility] Comment on above: Order Comment: Order Added by Discern Expert. Performed By: #### 2 678703, 8196498 ####[address] [address] Neutrophils/100 WBC (Bld) 59.4 % Normal 36.0-75.0 [facility] Comment on above: Order Comment: Order Added by Discern Expert. Performed By: #### 2 011046, 9872457 ####[address] [address] Neutrophils/Leukoc ytes Auto (Bld) [Pure # fraction] 1.5 E9/L Low 2.0-7.5 [facility] Comment on above: Order Comment: Order Added by Discern Expert. Performed By: #### 2 907703, 4747326 ####[address] [address] CBC w/ Auto Diffon Erythrocyte distribution width (RBC) [Ratio] 13.1 % Normal 10.9-14.2 [facility] Comment on above: Performed By: #### 2 796021, 0240890 ####[address] [address] Hematocrit (Bld) [Volume fraction] 31.8 % Low 34.0-46.0 [facility] Comment on above: Performed By: #### 2 415869, 9746448 ####[address] [address] Hemoglobin (Bld) [Mass/Vol] 10.9 g/dL Low 12.0-16.0 [facility] Comment on above: Performed By: #### 2 678650, 6995477 ####[address] [address] MCH (RBC) [Entitic mass] 31.7 pg Normal 27.0-34.0 [facility] Comment on above: Performed By: #### 2 904225, 9390757 ####[address] [address] MCHC (RBC) [Mass/Vol] 34.3 g/dL Normal 31.4-36.0 [facility] Comment on above: Performed By: #### 2 162675, 4518936 ####[address] [address] MCV (RBC) [Entitic vol] 92.3 fL Normal 80.0-100.0 [facility] Comment on above: Performed By: #### 2 534089, 0855262 ####[facility] [address] [place] [address] Platelet mean volume (Bld) [Entitic vol] 8.5 fL Normal 6.4-10.8 [facility] Comment on above: Performed By: #### 2 682275, 4997105 ####[facility] [address] [place] [address] Platelets (Bld) [#/Vol] 79.0 E9/L Low 150.0-500.0 [facility] Comment on above: Performed By: #### 2 414084, 2019870 ####[facility] [address] [place] [address] RBC (Bld) [#/Vol] 3.4 E12/L Low 4.3-5.9 [facility] Comment on above: Performed By: #### 2 [id number], [id number] ####[facility] [address] [place] [address] WBC corrected for nucl RBC Auto (Bld) [#/Vol] 2.5 E9/L Low 4.0-11.0 [facility] Comment on above: Performed By: #### 2 [id number], [id number] ####[address] [address] Capillary Glucose POCon 07-13 Glucose [Mass/Vol] 89 mg/dL Normal 55-99 [facility] Comment on above: Result Comment: Marilyn newell RN/ Performed By: #### 2 [id number] ####[facility] [address] [place] [address] [place] 07-25-2023 Consent [id number] Normal [facility] Inpatient Clinical Summaryon 07-25-2023 Inpatient Clinical Summary Normal [facility] Inpatient Patient Summaryon 07-25-2023 Inpatient Patient Summary Invalid Interpretation Code [address] [address]- \.br\ Friday 11:00 AM EST \.br\ With:\.br\ Where: [facility] Inpatient Patient Summary Invalid Interpretation Code [address] [place] [address]- \.br\ Friday 11:00 AM EST \.br\ With:\.br\ [facility] Center Inpatient Patient Summary Normal [facility] Interdisciplinary Note - Lui e Manageron 07-25-2023 Interdisciplinary Note - Water System Operator Normal [facility] Comment on above: Result Comment: Elec tronically Signed By: Larisa Mccormack\.br\Date and Time Signed: 07/25/23 09:28 EDT Message from Medicareon 10- Message from Medicare [id number]#1.00TIFF Normal [facility] Patient Education - Texton 1 Patient Education - Text Normal [facility] Postoperative Documentson Postoperative Documents [id number]#1.00TIFF [facility] Progress Note-Physicianon Progress Note-Physician [facility] Comment on above: Result Comment: Elec tronically Signed By: Jim Dyson Jr, DO\.br\Date and Time Signed: 07/25/23 15:47 EDT Progress Note-Physician Normal [facility] Comment on above: Result Comment: Elec tronically Signed By: Jim Dyson Jr, DO\.br\Date and Time Signed: 07/25/23 15:46 EDT Auto Diffon 07-24-2023 Basophils/100 WBC (Bld) 1.1 % Normal 0.0-2.0 [facility] Comment on above: Order Comment: Order Added by Discern Expert. Performed By: #### 2 125170, 2977961 ####[facility] [address] [place] [address] Basophils/Leukocyt es Auto (Bld) [Pure # fraction] 0.0 E9/L Normal 0.0-0.2 [facility] Comment on above: Order Comment: Order Added by Discern Expert. Performed By: #### 2 554204, 4304718 ####[address] [address] Eosinophils/100 WBC (Bld) 2.6 % Normal 0.0-8.0 [facility] Comment on above: Order Comment: Order Added by Discern Expert. Performed By: #### 2 206220, 0252745 ####[address] [address] Eosinophils/Leukoc ytes Auto (Bld) [Pure # fraction] 0.1 E9/L Normal 0.0-0.5 [facility] Comment on above: Order Comment: Order Added by Discern Expert. Performed By: #### 2 352265, 5857799 ####[address] [address] Lymphocytes/100 WBC (Bld) 31.2 % Normal 14.0-50.0 [facility] Comment on above: Order Comment: Order Added by Discern Expert. Performed By: #### 2 330197, 5497922 ####[address] [address] Lymphocytes/Leukoc ytes Auto (Bld) [Pure # fraction] 0.8 E9/L Low 1.0-4.0 [facility] Comment on above: Order Comment: Order Added by Discern Expert. Performed By: #### 2 848900, 9304805 ####[address] [address] Monocytes/100 WBC (Bld) 9.8 % Normal 4.0-14.0 [facility] Comment on above: Order Comment: Order Added by Discern Expert. Performed By: #### 2 020755, 8212714 ####[address] [address] Monocytes/Leukocyt es Auto (Bld) [Pure # fraction] 0.2 E9/L Normal 0.2-1.0 [facility] Comment on above: Order Comment: Order Added by Discern Expert. Performed By: #### 2 785097, 8007991 ####[address] [place] [address] Neutrophils/100 WBC (Bld) 55.3 % Normal 36.0-75.0 [facility] Comment on above: Order Comment: Order Added by Discern Expert. Performed By: #### 2 960591, 3839600 ####[address] [address] Neutrophils/Leukoc ytes Auto (Bld) [Pure # fraction] 1.4 E9/L Low 2.0-7.5 [facility] Comment on above: Order Comment: Order Added by Discern Expert. Performed By: #### 2 000564, 9250393 ####[address] [address] CBC w/ Auto Diffon 3 Erythrocyte distribution width (RBC) [Ratio] 13.1 % Normal 10.9-14.2 [facility] Comment on above: Performed By: #### 2 472086, 3788026 ####[address] [place] [address] Hematocrit (Bld) [Volume fraction] 33.2 % Low 34.0-46.0 [facility] Comment on above: Performed By: #### 2 317271, 6151041 ####[address] [address] Hemoglobin (Bld) [Mass/Vol] 11.2 g/dL Low 12.0-16.0 [facility] Comment on above: Performed By: #### 2 881783, 2633624 ####[address] [place] [address] MCH (RBC) [Entitic mass] 31.2 pg Normal 27.0-34.0 [facility] Comment on above: Performed By: #### 2 423617, 5794377 ####[address] [place] [address] MCHC (RBC) [Mass/Vol] 33.7 g/dL Normal 31.4-36.0 [facility] Comment on above: Performed By: #### 2 259972, 1822887 ####[address] [address] MCV (RBC) [Entitic vol] 92.7 fL Normal 80.0-100.0 [facility] Comment on above: Performed By: #### 2 574834, 0408973 ####[address] [address] Platelet mean volume (Bld) [Entitic vol] 8.5 fL Normal 6.4-10.8 [facility] Comment on above: Performed By: #### 2 766568, 4691892 ####[address] [address] Platelets (Bld) [#/Vol] 81.0 E9/L Low 150.0-500.0 [facility] Comment on above: Result Comment: Plat elet count verified using smear estimate Performed By: #### 2 468699, 8979656 ####[address] [address] RBC (Bld) [#/Vol] 3.6 E12/L Low 4.3-5.9 [facility] Comment on above: Performed By: #### 2 018899, 8911246 ####[address] [address] WBC corrected for nucl RBC Auto (Bld) [#/Vol] 2.5 E9/L Low 4.0-11.0 [facility] Comment on above: Performed By: #### 2 295851, 1847199 ####[address] [address] Consent for Treatmenton 07-13 Consent for Treatment [id number]#1.00TIFF Normal [facility] Endoscopic Procedure Report - Otheron 07-24-2023 Endoscopic Procedure Report - Other Normal [facility] Comment on above: Result Comment: Elec tronically Signed By: Rachid PATTEN, Deborah Bell\.aidee\Date and Time Signed: 07/24/23 11:16 EDT Other Comment: Radha ng Attachment - attachment storage system not supported [id number] Can be viewed in [facility] Attachment - attachment storage system not supported [id number] Can be viewed in [facility] Attachment - attachment storage system not supported [id number] Can be viewed in [facility] Attachment - attachment storage system not supported [id number] Can be viewed in [facility] Attachment - attachment storage system not supported [id number] Can be viewed in [facility] Attachment - attachment storage system not supported [id number] Can be viewed in source systemMissing Attachment - attachment storage system not supported 4714333 Can be viewed in source systemMissing Attachment - attachment storage system not supported [id number] Can be viewed in [facility] Attachment - attachment storage system not supported [id number] Can be viewed in [facility] Attachment - attachment storage system not supported 6938324 Can be viewed in source systemMissing Attachment - attachment storage system not supported 0660833 Can be viewed in [facility] Attachment - attachment storage system not supported [id number] Can be viewed in source systemMissing Attachment - attachment storage system not supported 3992400 Can be viewed in source systemMissing Attachment - attachment storage system not supported [id number] Can be viewed in [facility] Attachment - attachment storage system not supported [id number] Can be viewed in source system Main OR PACU I Recordon 07-13 Main OR PACU I Record [facility] Main OR Preoperative Recordo n 07-24-2023 Main OR Preoperative Record Normal [facility] Monitor Recordon 07-24-2023 Monitor Record [id number]#1.00TIFF Normal [facility] Monitor Record [id number]#1.00TIFF [facility] Outpatient Surgery Discharge Instructionon 07-24-2023 Outpatient Surgery Discharge Instruction Normal [facility] Consent for Treatmenton 07-13 Consent for Treatment [id number]#1.00TIFF Normal [facility] Oncology Progress Noteon Oncology Progress Note Normal [facility] Pathology Noteon 07-09-2023 Pathology Note [id number]#1.00CD:127 Normal [facility] Pathology Reporton 3 Pathology Report [id number]#1.00CD:127 Normal [facility] Pathology Reporton 3 Pathology Report [id number]#1.00CD:127 Normal [facility] Pathology Report [id number]#1.00CD:127 Normal [facility] Pathology Report [id number]#1.00CD:127 Normal [facility] Family Medicine Office/Clini c Noteon 07-02-2023 Family Medicine Office/Clinic Note Normal [facility] Comment on above: Result Comment: Elec tronically Signed By: Willian Barrios MD\.br\Date and Time Signed: 07/02/23 09:33 EDT\.br\Electronically Co-Signed By: Almita Garcia\.br\Date and Time Co-Signed: 06/30/23 14:28 EDT Pathology Reporton 3 Pathology Report [id number]#1.00CD:127 Normal [facility] Ambulatory Visit Summaryon 0 06-30-2023 Ambulatory Visit Summary Invalid Interpretation Code [address] [place] [address]- \.br\ Friday 11:20 AM EST \.br\ With: Willian Barrios MD\.br\ Where: [facility] Auto Diffon 06-30-2023 Basophils/100 WBC (Bld) 0.9 % Normal 0.0-2.0 [facility] Comment on above: Order Comment: Order Added by Discern Expert. Performed By: #### 2 337314, 3656153 ####[facility] [address] [place] [address] Basophils/Leukocyt es Auto (Bld) [Pure # fraction] 0.0 E9/L Normal 0.0-0.2 [facility] Comment on above: Order Comment: Order Added by Discern Expert. Performed By: #### 2 327579, 1750831 ####[address] [address] Eosinophils/100 WBC (Bld) 3.9 % Normal 0.0-8.0 [facility] Comment on above: Order Comment: Order Added by Discern Expert. Performed By: #### 2 089687, 0557093 ####[address] [address] Eosinophils/Leukoc ytes Auto (Bld) [Pure # fraction] 0.1 E9/L Normal 0.0-0.5 [facility] Comment on above: Order Comment: Order Added by Discern Expert. Performed By: #### 2 028539, 6103037 ####[address] [address] Lymphocytes/100 WBC (Bld) 28.2 % Normal 14.0-50.0 [facility] Comment on above: Order Comment: Order Added by Discern Expert. Performed By: #### 2 070654, 8426428 ####[facility] [address] [place] [address] Lymphocytes/Leukoc ytes Auto (Bld) [Pure # fraction] 0.7 E9/L Low 1.0-4.0 [facility] Comment on above: Order Comment: Order Added by Discern Expert. Performed By: #### 2 124657, 2600960 ####[facility] [address] [place] [address] Monocytes/100 WBC (Bld) 9.1 % Normal 4.0-14.0 [facility] Comment on above: Order Comment: Order Added by Discern Expert. Performed By: #### 2 612903, 1797376 ####[address] [place] [address] Monocytes/Leukocyt es Auto (Bld) [Pure # fraction] 0.2 E9/L Normal 0.2-1.0 [facility] Comment on above: Order Comment: Order Added by Discern Expert. Performed By: #### 2 007568, 2737491 ####[address] [place] [address] Neutrophils/100 WBC (Bld) 57.9 % Normal 36.0-75.0 [facility] Comment on above: Order Comment: Order Added by Discern Expert. Performed By: #### 2 805490, 3690210 ####[address] [address] Neutrophils/Leukoc ytes Auto (Bld) [Pure # fraction] 1.5 E9/L Low 2.0-7.5 [facility] Comment on above: Order Comment: Order Added by Discern Expert. Performed By: #### 2 306916, 2284405 ####[address] [address] CBC w/ Auto Diffon Erythrocyte distribution width (RBC) [Ratio] 12.8 % Normal 10.9-14.2 [facility] Comment on above: Performed By: #### 2 297651, 3422567 ####[address] [address] Hematocrit (Bld) [Volume fraction] 36.4 % Normal 34.0-46.0 [facility] Comment on above: Performed By: #### 2 513808, 7046674 ####[address] [address] Hemoglobin (Bld) [Mass/Vol] 12.3 g/dL Normal 12.0-16.0 [facility] Comment on above: Performed By: #### 2 786751, 0207145 ####[address] [address] MCH (RBC) [Entitic mass] 31.4 pg Normal 27.0-34.0 [facility] Comment on above: Performed By: #### 2 675547, 7446592 ####[address] [address] MCHC (RBC) [Mass/Vol] 33.7 g/dL Normal 31.4-36.0 [facility] Comment on above: Performed By: #### 2 565303, 2484981 ####[address] [address] MCV (RBC) [Entitic vol] 93.2 fL Normal 80.0-100.0 [facility] Comment on above: Performed By: #### 2 607616, 8396360 ####[address] [address] Platelet mean volume (Bld) [Entitic vol] 9.6 fL Normal 6.4-10.8 [facility] Comment on above: Performed By: #### 2 157307, 7105735 ####[address] [address] Platelets (Bld) [#/Vol] 79.0 E9/L Low 150.0-500.0 [facility] Comment on above: Performed By: #### 2 706627, 9271697 ####[address] [address] RBC (Bld) [#/Vol] 3.9 E12/L Low 4.3-5.9 [facility] Comment on above: Performed By: #### 2 554234, 7187652 ####[address] [address] WBC corrected for nucl RBC Auto (Bld) [#/Vol] 2.7 E9/L Low 4.0-11.0 [facility] Comment on above: Performed By: #### 2 552162, 7232349 ####[facility] [address] [place] [address] CHEMISTRYOrdered By: SYSTEM SYSTEM on 06-30-2023 Albumin [...] 3.3 g/dL Normal 1.4 - 4.0 gm/dL [facility] [place] Glucose [Mass/Vol] 289 mg/dL High 55 - 199 mg/dL [facility] Remisol Potassium [Moles/Vol] 4.1 mmol/L Normal 3.5 - 5.3 mmol/L [facility] [place] Protein [Mass/Vol] 6.9 g/dL Normal 6.0 - 7.8 gm/dL [facility] [place]isol Sodium [Moles/Vol] 136 mmol/L Normal 135 - 145 mmol/L [facility] [place]isol Triglyceride [Mass/Vol] 102 mg/dL Normal <=149mg/dL [facility] [place]isol Urea nitrogen [Mass/Vol] 19 mg/dL Normal 5 - 21 mg/dL [facility] Remisol Urea nitrogen/Creatinin e [Mass ratio] 16 mg/mg Normal 10 - 20 [facility] Remisol CHEMISTRYOrdered By: Gabriela Kincaid on 06-30-2023 Albumin DL <= 20 mg/L (U) [Mass/Vol] microgram/mL Normal 0.0 - 19.0 mcg/mL [facility] [place]isol Albumin Elph (U) [Mass fraction] mg/dL Invalid Interpretation Code [facility] Remisol Creatinine (U) [Mass/Vol] 82.1 mg/dL Invalid Interpretation Code [facility] Remisol U Prot/Creat Ratio [facility] Invalid Interpretation Code 0.00 - 200.00 [facility] Remisol CHEMISTRYOrdered By: Jamison meadows on 06-30-2023 HbA1c (Bld) [Mass fraction] 7.0 % High <=5.9% [facility] ChemAutoSS CMPon 06-30-2023 Albumin [Mass/Vol] 3.6 g/dL Normal 3.3-5.0 [facility] Comment on above: Performed By: #### 2 576004, 44041438, 6149663, 822428249 ####[facility] [address] [place] [address] Albumin/Globulin (S) [Mass conc ratio] 1.1 Normal 1.1-2.2 [facility] Comment on above: Performed By: #### 2 245008, 94015139, 0545511, 307002587 ####[facility] [address] [facility] [place] [address] ALP [Catalytic activity/Vol] 66 Int._Unit/L Normal 21-98 [facility] Comment on above: Performed By: #### 2 683719, 96362632, 6425689, 734160379 ####[facility] [address] [address] ALT No additional P-5'-P [Catalytic activity/Vol] 21 Int._Unit/L Normal 6-46 [facility] Comment on above: Performed By: #### 2 351241, 00176437, 4954003, 491130023 ####[facility] [address] [place] [address] Anion gap [Moles/Vol] 11 mmol/L Normal 6-16 [facility] Comment on above: Performed By: #### 2 055763, 55972892, 7367861, 686948765 ####[facility] [address] [place] [address] AST [Catalytic activity/Vol] 37 Int._Unit/L Normal 5-43 [facility] Comment on above: Performed By: #### 2 538310, 66786442, 4860896, 819160785 ####[facility] [address] [place] [address] Bilirubin [Mass/Vol] 0.8 mg/dL Normal 0.0-1.1 [facility] Comment on above: Performed By: #### 2 902208, 98321223, 2901032, 693561173 ####[facility] [address] [place] [address] Calcium [Mass/Vol] 9.5 mg/dL Normal 8.9-11.1 [facility] Comment on above: Performed By: #### 2 161770, 48094343, 1721607, 108678737 ####[facility] [address] [place] [address] Chloride [Moles/Vol] 103 mmol/L Normal 101-111 [facility] Comment on above: Performed By: #### 2 569568, 78771594, 1987841, 620846374 ####[facility] [address] [place] [address] CO2 [Moles/Vol] 26 mmol/L Normal 21-31 [facility] Comment on above: Performed By: #### 2 699213, 31316720, 1785575, 449608477 ####[facility] [address] [place] [address] Creatinine [Mass/Vol] 1.2 mg/dL Normal 0.5-1.3 [facility] Comment on above: Performed By: #### 2 727182, 86432863, 7297305, 041297785 ####[facility] [address] [place] [address] Globulin (S) [Mass/Vol] 3.3 g/dL Normal 1.4-4.0 [facility] Comment on above: Performed By: #### 2 372396, 84836030, 5314098, 701287395 ####[facility] [address] [place] [address] Glucose [Mass/Vol] 289 mg/dL High 55-199 [facility] Comment on above: Result Comment: If t his glucose result represents a fasting glucose, interpretation should refer to the following reference range: 55-99 mg/dL Performed By: #### 2 906252, 61353584, 2858658, 071159876 ####[facility] [address] [place] [address] Potassium [Moles/Vol] 4.1 mmol/L Normal 3.5-5.3 [facility] Comment on above: Performed By: #### 2 471992, 92685761, 0760763, 174604201 ####[facility] [address] [place] [address] Protein [Mass/Vol] 6.9 g/dL Normal 6.0-7.8 [facility] Comment on above: Performed By: #### 2 611297, 27253971, 9342995, 018823630 ####[facility] [address] [place] [address] Sodium [Moles/Vol] 136 mmol/L Normal 135-145 [facility] Comment on above: Performed By: #### 2 537319, 69220016, 8215623, 621165071 ####[facility] [address] [place] [address] Urea nitrogen [Mass/Vol] 19 mg/dL Normal 5-21 [facility] Comment on above: Performed By: #### 2 259432, 14622685, 9590227, 607232516 ####[facility] [address] [place] [address] Urea nitrogen/Creatinin e [Mass ratio] 16 No Units Normal 10-20 [facility] Comment on above: Performed By: #### 2 865637, 65440625, 5658597, 622003940 ####[facility] [address] [place] [address] HEMATOLOGYOrdered By: SYSTEM SYSTEM on 06-30-2023 Basophils/100 [...] Low 4.0 - 11.0 E9/L [facility] HemeAutoSS PkvE9yxk 06-30-2023 HbA1c (Bld) [Mass fraction] 7.0 % High <=5.9 [facility] Comment on above: Performed By: #### 2 815800, 21974230, 0884504, 926728619 ####[facility] [address] [place] [address] Lipid Panelon 06-30-2023 Cholesterol [Mass/Vol] 140 mg/dL Normal 120-200 [facility] Comment on above: Performed By: #### 2 271198, 80266124, 6615892, 149958630 ####[facility] [address] [place] [address] Cholesterol in HDL [Mass/Vol] 35 mg/dL Invalid Interpretation Code [facility] Comment on above: Result Comment: HDL > or equal to 60 mg/dL: Low cardiovascular riskHDL < 40 mg/dL : High cardiovascular risk Performed By: #### 2 648456, 31689680, 3475791, 206561046 ####[facility] [address] [place] [address] Cholesterol in LDL [Mass/Vol] 83 mg/dL Normal <=129 [facility] Comment on above: Performed By: #### 2 362502, 96180525, 0151245, 231272479 ####[facility] [address] [place] [address] Cholesterol in VLDL [Mass/Vol] 20 mg/dL Normal 7-40 [facility] Comment on above: Performed By: #### 2 770475, 71760770, 7512273, 421459375 ####[facility] [address] [place] [address] Triglyceride [Mass/Vol] 102 mg/dL Normal <=149 [facility] Comment on above: Performed By: #### 2 203046, 00360323, 7955744, 695009549 ####[facility] [address] [place] [address] Pathology Reporton Pathology Report [id number]#1.00CD:127 Normal [facility] Pathology Report [id number]#1.00CD:127 Normal [facility] Pathology Report [id number]#1.00CD:127 Normal [facility] Pathology Report [id number]#1.00CD:127 Normal [facility] Pathology Report [id number]#1.00CD:127 Normal [facility] Comment on above: Other Comment: cleri moses U Microalbon 06-30-2023 Albumin DL <= 20 mg/L (U) [Mass/Vol] mg/dL Normal 0.0-19.0 [facility] Comment on above: Performed By: #### 1 5157356, [id number] ####[facility] [address] [place] [address] U Protein/Creat Ratioon 06-13 Creatinine (U) [Mass/Vol] 82.1 mg/dL Invalid Interpretation Code [facility] Comment on above: Result Comment: The reference range and other method performance specifications have not been established for this test; results should be integrated into the clinical context for interpretation. Performed By: #### 1 2468655, [id number] ####[facility] [address] [place] [address] U Prot/Creat Ratio [facility] Invalid Interpretation Code .00-200.00 [facility] Comment on above: Performed By: #### 1 1762176, [id number] ####[facility] [address] [place] [address] Albumin Elph (U) [Mass fraction] <6.0 Invalid Interpretation Code [facility] Comment on above: Result Comment: The reference range and other method performance specifications have not been established for this test; results should be integrated into the clinical context for interpretation. Performed By: #### 1 3444315, [id number] ####[facility] [address] [place] [address] eGFRon 06-30-2023 GFR/1.73 sq M.predicted among non-blacks MDRD (S/P/Bld) [Vol rate/Area] 49 mL/min/1.73 m2 Low >=59 [facility] Comment on above: Order Comment: Order added by Discern Expert. Result Comment: [employer] Operator annabella kidney disease could be indicated at eGFR's of less than 60 mL/min/1.73m2. Kidney failure is indicated at less than 15 mL/min/1.73m2. Performed By: #### 2 204292, 77665023, 9028717, 323571717 ####[facility] [address] [place] [address] Discharge Instructionson Discharge Instructions [id number]#1.00CD:127 Normal [facility] Preoperative Documentson Preoperative Documents [id number]#1.00CD:127 Normal [facility] Auto Diffon 06-24-2023 Basophils/100 WBC (Bld) 1.5 % Normal 0.0-2.0 [facility] Comment on above: Order Comment: Order Added by Areli Expert. Performed By: #### 2 034211, 5150667 ####[facility] [address] [place] [address] Basophils/Leukocyt es Auto (Bld) [Pure # fraction] 0.0 E9/L Normal 0.0-0.2 [facility] Comment on above: Order Comment: Order Added by Areli Expert. Performed By: #### 2 745005, 7101262 ####[address] [address] Eosinophils/100 WBC (Bld) 3.9 % Normal 0.0-8.0 [facility] Comment on above: Order Comment: Order Added by Areli Expert. Performed By: #### 2 597402, 5296056 ####[address] [place] [address] Eosinophils/Leukoc ytes Auto (Bld) [Pure # fraction] 0.1 E9/L Normal 0.0-0.5 [facility] Comment on above: Order Comment: Order Added by Areli Expert. Performed By: #### 2 936411, 4284042 ####[address] [facility] [place] [address] Lymphocytes/100 WBC (Bld) 31.3 % Normal 14.0-50.0 [facility] Comment on above: Order Comment: Order Added by Discern Expert. Performed By: #### 2 038654, 5610607 ####[address] [place] [address] Lymphocytes/Leukoc ytes Auto (Bld) [Pure # fraction] 0.8 E9/L Low 1.0-4.0 [facility] Comment on above: Order Comment: Order Added by Discern Expert. Performed By: #### 2 663223, 0570661 ####[address] [place] [address] Monocytes/100 WBC (Bld) 10.5 % Normal 4.0-14.0 [facility] Comment on above: Order Comment: Order Added by Discern Expert. Performed By: #### 2 799003, 3703631 ####[address] [place] [address] Monocytes/Leukocyt es Auto (Bld) [Pure # fraction] 0.3 E9/L Normal 0.2-1.0 [facility] Comment on above: Order Comment: Order Added by Discern Expert. Performed By: #### 2 435603, 7222514 ####[address] [place] [address] Neutrophils/100 WBC (Bld) 52.8 % Normal 36.0-75.0 [facility] Comment on above: Order Comment: Order Added by Discern Expert. Performed By: #### 2 533179, 3545714 ####[facility] [address] [place] [address] Neutrophils/Leukoc ytes Auto (Bld) [Pure # fraction] 1.3 E9/L Low 2.0-7.5 [facility] Comment on above: Order Comment: Order Added by Discern Expert. Performed By: #### 2 313306, 3073762 ####[address] [address] CBC w/ Auto Diffon 3 Erythrocyte distribution width (RBC) [Ratio] 12.6 % Normal 10.9-14.2 [facility] Comment on above: Performed By: #### 2 889483, 9285922 ####[address] [address] Hematocrit (Bld) [Volume fraction] 35.1 % Normal 34.0-46.0 [facility] Comment on above: Performed By: #### 2 047250, 7670899 ####[address] [address] Hemoglobin (Bld) [Mass/Vol] 12.0 g/dL Normal 12.0-16.0 [facility] Comment on above: Performed By: #### 2 890686, 9555306 ####[address] [address] MCH (RBC) [Entitic mass] 31.6 pg Normal 27.0-34.0 [facility] Comment on above: Performed By: #### 2 945006, 4634443 ####[address] [address] MCHC (RBC) [Mass/Vol] 34.1 g/dL Normal 31.4-36.0 [facility] Comment on above: Performed By: #### 2 661231, 6898191 ####[address] [address] MCV (RBC) [Entitic vol] 92.7 fL Normal 80.0-100.0 [facility] Comment on above: Performed By: #### 2 404363, 2363119 ####[address] [address] Platelet mean volume (Bld) [Entitic vol] 8.4 fL Normal 6.4-10.8 [facility] Comment on above: Performed By: #### 2 703146, 7262173 ####[address] [place] [address] Platelets (Bld) [#/Vol] 83.0 E9/L Low 150.0-500.0 [facility] Comment on above: Result Comment: Slid e reviewed by TLP.Platelet count verified using smear estimate. Performed By: #### 2 826603, 1180635 ####[facility] [address] [place] [address] RBC (Bld) [#/Vol] 3.8 E12/L Low 4.3-5.9 [facility] Comment on above: Performed By: #### 2 127838, 5238228 ####[facility] [address] [place] [address] WBC corrected for nucl RBC Auto (Bld) [#/Vol] 2.5 E9/L Low 4.0-11.0 [facility] Comment on above: Performed By: #### 2 107467, 3197744 ####[facility] [address] [place] [address] Bone Marrow Biopsyon 06-13 CT Bone Marrow Biopsy Normal [facility] Consent for Treatmenton 06-13 Consent for Treatment [id number]#1.00CD:127 Normal [facility] HEMATOLOGYOrdered By: SYSTEM SYSTEM on [...] Recordon Main OR PACU II Record Normal [facility] RAD - Consent to Procedureon 06-24-2023 RAD - Consent to Procedure [id number]#1.00CD:127 Normal [facility] Outside Labson 06-19-2023 Outside Labs [id number]#1.00CD:127 Normal [facility] Consent for Treatmenton Consent for Treatment [id number]#1.00CD:127 Normal [facility] Oncology Progress Noteon Oncology Progress Note Normal [facility] Physician Orderon 06-17-2023 Physician Order [id number]#1.00CD:127 Normal [facility] Auto Diffon 06-12-2023 Basophils/100 WBC (Bld) 1.1 % Normal 0.0-2.0 [facility] Comment on above: Order Comment: Order Added by Discern Expert. Performed By: #### 2 402302, 8744950 ####[facility] [address] [place] [address] Basophils/Leukocyt es Auto (Bld) [Pure # fraction] 0.0 E9/L Normal 0.0-0.2 [facility] Comment on above: Order Comment: Order Added by Discern Expert. Performed By: #### 2 034249, 4256097 ####[facility] [address] [place] [address] Eosinophils/100 WBC (Bld) 4.1 % Normal 0.0-8.0 [facility] Comment on above: Order Comment: Order Added by Discern Expert. Performed By: #### 2 007068, 0537247 ####[facility] [address] [place] [address] Eosinophils/Leukoc ytes Auto (Bld) [Pure # fraction] 0.1 E9/L Normal 0.0-0.5 [facility] Comment on above: Order Comment: Order Added by Discern Expert. Performed By: #### 2 236928, 5673940 ####[address] [address] Lymphocytes/100 WBC (Bld) 27.6 % Normal 14.0-50.0 [facility] Comment on above: Order Comment: Order Added by Discern Expert. Performed By: #### 2 154857, 2733131 ####[address] [address] Lymphocytes/Leukoc ytes Auto (Bld) [Pure # fraction] 0.8 E9/L Low 1.0-4.0 [facility] Comment on above: Order Comment: Order Added by Areli Expert. Performed By: #### 2 532866, 8873125 ####[address] [place] [address] Monocytes/100 WBC (Bld) 10.4 % Normal 4.0-14.0 [facility] Comment on above: Order Comment: Order Added by Areli Expert. Performed By: #### 2 150271, 5939054 ####[address] [address] Monocytes/Leukocyt es Auto (Bld) [Pure # fraction] 0.3 E9/L Normal 0.2-1.0 [facility] Comment on above: Order Comment: Order Added by Areli Expert. Performed By: #### 2 957599, 0559741 ####[address] [address] Neutrophils/100 WBC (Bld) 56.8 % Normal 36.0-75.0 [facility] Comment on above: Order Comment: Order Added by Areli Expert. Performed By: #### 2 611881, 3693992 ####[facility] [address] [place] [address], [place] [address] Neutrophils/Leukoc ytes Auto (Bld) [Pure # fraction] 1.7 E9/L Low 2.0-7.5 [facility] Comment on above: Order Comment: Order Added by Discern Expert. Performed By: #### 2 364970, 7588072 ####[address] [place] [address] CBC w/ Auto Diffon 3 Erythrocyte distribution width (RBC) [Ratio] 12.8 % Normal 10.9-14.2 [facility] Comment on above: Performed By: #### 2 615250, 5395248 ####[address] [address] Hematocrit (Bld) [Volume fraction] 36.7 % Normal 34.0-46.0 [facility] Comment on above: Performed By: #### 2 020010, 4548719 ####[address] [address] Hemoglobin (Bld) [Mass/Vol] 12.2 g/dL Normal 12.0-16.0 [facility] Comment on above: Performed By: #### 2 051889, 6801533 ####[address] [address] MCH (RBC) [Entitic mass] 31.3 pg Normal 27.0-34.0 [facility] Comment on above: Performed By: #### 2 127032, 1754196 ####[address] [address] MCHC (RBC) [Mass/Vol] 33.3 g/dL Normal 31.4-36.0 [facility] Comment on above: Performed By: #### 2 692161, 8663593 ####[address] [address] MCV (RBC) [Entitic vol] 93.8 fL Normal 80.0-100.0 [facility] Comment on above: Performed By: #### 2 084070, 9427909 ####[address] [address] Platelet mean volume (Bld) [Entitic vol] 9.1 fL Normal 6.4-10.8 [facility] Comment on above: Performed By: #### 2 556528, 3667732 ####[facility] [address] [place] [address] Platelets (Bld) [#/Vol] 102.0 E9/L Low 150.0-500.0 [facility] Comment on above: Performed By: #### 2 818035, 5165641 ####[facility] [address] [place] [address] RBC (Bld) [#/Vol] 3.9 E12/L Low 4.3-5.9 [facility] Comment on above: Performed By: #### 2 183162, 0162257 ####[facility] [address] [place] [address] WBC corrected for nucl RBC Auto (Bld) [#/Vol] 3.0 E9/L Low 4.0-11.0 [facility] Comment on above: Performed By: #### 2 962187, 7201951 ####[facility] [address] [place] [address] Consent for Treatmenton 05-15 Consent for Treatment [id number]#1.00CD:127 Normal [facility] HEMATOLOGYOrdered By: SYSTEM SYSTEM on [...] for Procedure/Surger yon 06-05-2023 Consent for Procedure/Surgery [id number]#1.00CD:127 Normal [facility] Ambulatory Visit Summaryon 0 06-04-2023 Ambulatory Visit Summary Invalid Interpretation Code [id number]- \.br\ Friday 2:20 PM EST \.br\ With: Denis PATTEN, Willian Weienr\.br\ Where: [facility] Gastroenterology Office/Clin ic Noteon 06-04-2023 Gastroenterology Office/Clinic Note Normal [facility] Comment on above: Result Comment: Elec tronically Signed By: Rachid PATTEN, Deborah Bell\.br\Date and Time Signed: 06/04/23 14:05 EDT Lab Reportson 05-29-2023 Lab Reports [id number]#1.00CD:127 Normal [facility] Office Visiton 05-29-2023 Follow-up visit [id number] Dakota Santos 1955 F Date Provider Department Center 05/29/2023 32534-IVTTPTJFYDELMAR CORDOVA [facility] No family history on file Level of Service:50560 [place] OFFICE/OUTPATIENT ESTABLISHED MOD MDM 30-39 MIN Reason for Visit and Comments: Follow-up [610220] - Early follow up Normal [facility] Auto Diffon 05-27-2023 Basophils/100 WBC (Bld) 1.3 % Normal 0.0-2.0 [facility] Comment on above: Order Comment: Order Added by Discern Expert. Performed By: #### 2 124864, 6496356 ####[facility] [address] [place] [address] Basophils/Leukocyt es Auto (Bld) [Pure # fraction] 0.0 E9/L Normal 0.0-0.2 [facility] Comment on above: Order Comment: Order Added by Discern Expert. Performed By: #### 2 652769, 3915755 ####[facility] [address] [place] [address] Eosinophils/100 WBC (Bld) 5.3 % Normal 0.0-8.0 [facility] Comment on above: Order Comment: Order Added by Discern Expert. Performed By: #### 2 361065, 9067222 ####[facility] [address] [place] [address] Eosinophils/Leukoc ytes Auto (Bld) [Pure # fraction] 0.2 E9/L Normal 0.0-0.5 [facility] Comment on above: Order Comment: Order Added by Discern Expert. Performed By: #### 2 447815, 9441936 ####[address] [address] Lymphocytes/100 WBC (Bld) 26.5 % Normal 14.0-50.0 [facility] Comment on above: Order Comment: Order Added by Areli Expert. Performed By: #### 2 041743, 4196323 ####[address] [address] Lymphocytes/Leukoc ytes Auto (Bld) [Pure # fraction] 0.8 E9/L Low 1.0-4.0 [facility] Comment on above: Order Comment: Order Added by Areli Expert. Performed By: #### 2 666099, 5199801 ####[address] [address] Monocytes/100 WBC (Bld) 10.9 % Normal 4.0-14.0 [facility] Comment on above: Order Comment: Order Added by Areli Expert. Performed By: #### 2 445865, 6010260 ####[address] [address] Monocytes/Leukocyt es Auto (Bld) [Pure # fraction] 0.3 E9/L Normal 0.2-1.0 [facility] Comment on above: Order Comment: Order Added by Areli Expert. Performed By: #### 2 736495, 5413216 ####[address] [address] Neutrophils/100 WBC (Bld) 56.0 % Normal 36.0-75.0 [facility] Comment on above: Order Comment: Order Added by Discern Expert. Performed By: #### 2 125485, 9733262 ####[facility] [address] [place] [address] Neutrophils/Leukoc ytes Auto (Bld) [Pure # fraction] 1.6 E9/L Low 2.0-7.5 [facility] Comment on above: Order Comment: Order Added by Discern Expert. Performed By: #### 2 604810, 0549709 ####[address] [address] CBC w/ Auto Diffon 3 Erythrocyte distribution width (RBC) [Ratio] 13.0 % Normal 10.9-14.2 [facility] Comment on above: Performed By: #### 2 244114, 2528757 ####[address] [address] Hematocrit (Bld) [Volume fraction] 32.9 % Low 34.0-46.0 [facility] Comment on above: Performed By: #### 2 172781, 7219962 ####[address] [address] Hemoglobin (Bld) [Mass/Vol] 11.2 g/dL Low 12.0-16.0 [facility] Comment on above: Performed By: #### 2 201453, 9926906 ####[address] [address] MCH (RBC) [Entitic mass] 31.7 pg Normal 27.0-34.0 [facility] Comment on above: Performed By: #### 2 161508, 9194229 ####[address] [address] MCHC (RBC) [Mass/Vol] 34.2 g/dL Normal 31.4-36.0 [facility] Comment on above: Performed By: #### 2 520116, 6252926 ####[address] [address] MCV (RBC) [Entitic vol] 92.7 fL Normal 80.0-100.0 [facility] Comment on above: Performed By: #### 2 249653, 2941474 ####[facility] [address] [place] [address] Platelet mean volume (Bld) [Entitic vol] 8.5 fL Normal 6.4-10.8 [facility] Comment on above: Performed By: #### 2 700869, 4620392 ####[address] [address] Platelets (Bld) [#/Vol] 99.0 E9/L Low 150.0-500.0 [facility] Comment on above: Result Comment: Slid e reviewed by ANU.Platelet count verified using smear estimate Performed By: #### 2 573097, 7634654 ####[address] [address] RBC (Bld) [#/Vol] 3.6 E12/L Low 4.3-5.9 [facility] Comment on above: Performed By: #### 2 764520, 2309598 ####[address] [address] WBC corrected for nucl RBC Auto (Bld) [#/Vol] 2.9 E9/L Low 4.0-11.0 [facility] Comment on above: Performed By: #### 2 797896, 5834673 ####[address] Consent for Treatmenton 05-13 Consent for Treatment [id number]#1.00CD:127 Normal [facility] HEMATOLOGYOrdered By: SYSTEM SYSTEM on [...] 3.6 E12/L Low 4.3 - 5.9 E12/L [facility] HemeAutoSS WBC corrected for nucl RBC Auto (Bld) [#/Vol] 2.9 E9/L Low 4.0 - 11.0 E9/L [facility] HemeAutoSS Comp panel: Leuk/Lym [id number] n 05-16-2023 Analysis and Gating Strategy Comment Invalid Interpretation Code [facility] Comment on above: Result Comment: 8 co afshin analysis with CD45/SSC gatingTechnical-Analysis performed at [facility], [address] ,[place] [address] Director: Sonia Capps [facility] Performed By: #### 1 642478792, 6261588103, 5131745128, 4900601, 5969898500, 638146129, 5702500899 ####[facility] [address] [place] [address] Annotation comment [Interpretation] Narrative Comment Invalid Interpretation Code [facility] Comment on above: Result Comment: Clin ical correlation is recommended. Performed By: #### 1 242945582, 9903223871, 9073049236, 3461232, 8174723128, 806641848, 8341834097 ####[facility] [address] [place] [address] Assessment of Leukocytes Comment Invalid Interpretation Code [facility] Comment on above: Result Comment: [...] 71%, NKcells 16%. Performed By: #### 1 357348207, 4623290178, 1488371230, 7619287, 9934125181, 881658362, 8774962334 ####[facility] [address] [place] [address] CLINICAL INFORMATION:FIND:P T: Comment Invalid Interpretation Code [facility] Comment on above: Result Comment: A re cent CBC was not available for review at the time this report wasprepared. Performed By: #### 1 632540903, 0022234033, 2197107571, 8367287, 4363954698, 141899008, 0044477506 ####[facility] [address] [place] [address] Immunophenotyping study Comment Invalid Interpretation Code [facility] Comment on above: Result Comment: CD2 Normal CD3 NormalCD4 Normal CD5 NormalCD7 Normal CD8 FwqcjbTA68 Normal CD11b VnxoppMS27 Normal CD14 GxnahqKM43 Normal CD19 AqchatRL88 Normal CD33 UctimiWV00 Normal CD38 YmvecjBI92 Normal CD56 TyhsyfCQ77 Normal CD117 NormalHLA-DR Normal KAPPA NormalLAMBDA Normal CD64 Normal Performed By: #### 1 540152882, 5746422702, 8412384559, 4565715, 4057371990, 726204704, 7021094929 ####[facility] [address] [place] [address] Laboratory comment Good (Report) Comment Invalid Interpretation Code [facility] Comment on above: Result Comment: Each antibody in this assay was utilized to assess for potentialabnormalities of studied cell populations or to characterizeidentified abnormalities.This test was developed and its performance characteristics determinedby [employer]. It has not been cleared or approved by the U.S. Food andDrug Administration.The FDA has determined that such clearance or approval is notnecessary. This test is used for clinical purposes. It should not beregarded as investigational or for research.Performed at: -Y [facility] [id number] [employer] [facility] [place], [place] [id number] [facility] Génesis DawsonnPerformed at: TG [facility] [id number] [employer] [facility], [place] [id number] [facility] Génesis Scott Performed By: #### 1 256887911, 3511409206, 0184760639, 4359670, 1137398157, 604112527, 2957480628 ####[facility] [address] [place] [address] Pathologist interpretation (Unsp spec) [Interp] Comment Invalid Interpretation Code [facility] Comment on above: Result Comment: No s ignificant immunophenotypic abnormality detected Performed By: #### 1 785610594, 3266879748, 6269095024, 7261685, 2130301410, 546449630, 9939219547 ####[facility] [address] [place] [address] Pathologist name Comment Invalid Interpretation Code [facility] Comment on above: Result Comment: Hoang Enamorado M.D. Performed By: #### 1 832274847, 7627099392, 7036390904, 6280530, 4827857792, 126563224, 5744414930 ####[address] [place] [address] Specimen source Nom (Unsp spec) Comment Invalid Interpretation Code [facility] Comment on above: Result Comment: Mary pheral blood Performed By: #### 1 976155417, 8469452008, 3339274029, 9519087, 3342833518, 987651266, 9333921251 ####[address] [place] [address] Viable cells/100 cells (Unsp spec) Comment Invalid Interpretation Code [facility] Comment on above: Result Comment: 86% Performed By: #### 1 378850553, 3124284217, 7299058441, 4392683, 8592725417, 088391251, 4704454019 ####[facility] [address] [place] [address] Flow Interp 16 or moreon Flow Interp 16 or more Performed Invalid Interpretation Code [facility] Comment on above: Result Comment: Perf ormed at: -Y [facility] [id number] [facility] [place], [place] [id number] [facility] Génesis Scott Performed By: #### 1 301566144, 1659921089, 3097523392, 3729853, 9407670895, 027022551, 1510798524 ####[facility] [address] [place] [address] Flow Marker, Firston 023 Flow Marker, First Performed Invalid Interpretation Code [facility] Comment on above: Result Comment: Perf ormed at: -Y [facility] [id number] [address] [place], [place] [id number] [facility] Chenn Anjen Performed By: #### 1 322646347, 4354326515, 1325535961, 4731229, 2464467968, 005757545, 5414621756 ####[facility] [address] [place] [address] Flow Markers X 15on 05-16-20 23 Flow Markers X 15 Performed Invalid Interpretation Code [facility] Comment on above: Result Comment: Perf ormed at: -Y [facility] [id number] [address] [place], [place] [id number] [facility] Chenn Anjen Performed By: #### 1 489146110, 3538086909, 7334636155, 1272271, 4972876104, 071756393, 7707616785 ####[facility] [address] [place] [address] Flow Markers X 3on 3 Flow Markers X 3 Performed Invalid Interpretation Code [facility] Comment on above: Result Comment: Perf ormed at: -Y [facility] [id number] [address] [place] [address] [place], [place] [id number] [facility] Chenn Anjen Performed By: #### 1 886165715, 6049977365, 7002477561, 1495479, 3224732230, 240858898, 5808198009 ####[facility] [address] [place] [address] Flow Markers X 5on 3 Flow Markers X 5 Performed Invalid Interpretation Code [facility] Comment on above: Result Comment: Perf ormed at: -Y [facility] [id number] [address] [place], [place] [id number] MDPhD Chenn Anjen Performed By: #### 1 816451441, 8099830940, 6583558795, 2810853, 5542806162, 260112357, 6691209259 ####[facility] [address] [place] [address] Lab Miscellaneous-on 05-16 Lab Miscellaneous COMMENT Invalid Interpretation Code [facility] Comment on above: Result Comment: Test Ordered: 124255 Platelet Antibody ProfileHLA Class 1 Antibody Negative BNReference Range: NegativeIIb/IIIa Antibody Negative BNReference Range: NegativeIb/IX Antibody Negative BNReference Range: NegativeIa/IIa Antibody Negative BNReference Range: NegativeGlycoprotein IV Antibody Negative BNReference Range: NegativePerformed at: [facility]gjsre[address] [place], [place] [id number] PhD David Alexandra Performed By: #### 1 173281255 ####[address] [address] Consent for Treatmenton Consent for Treatment [id number]:127 Normal [facility] Consent for Treatment [id number]#1.00CD:127 Normal [facility] HEMATOLOGYOrdered By: Mera Kincaid on 05-13-2023 Platelets (Bld) [#/Vol] 99.0 E9/L Low 150.0 - 500.0 E9/L [facility] HemeAutoSS Comment on above: Result Comment: Slid e reviewed by ANU. Lab Miscellaneous-LCon 05-13 Test Code 977298 Invalid Interpretation Code [facility] Comment on above: Performed By: #### 1 [id number] ####[facility] [address] [place] [address] Test Name Platelet Antibo Invalid Interpretation Code [facility] Comment on above: Performed By: #### 1 585363285 ####[address] [place] [address] Oncology Noteon 05-13-2023 Oncology Note Normal [facility] Comment on above: Result Comment: Elec tronically Signed By: Maria M MATOS, Ana Luisa Shepherd\.aidee\Date and Time Signed: 05/13/23 11:13 EDT Oncology Progress Noteon Oncology Progress Note Normal [facility] Oncology Progress Note Normal [facility] Platelet Counton 05-13-2023 Platelets (Bld) [#/Vol] 99.0 E9/L Low 150.0-500.0 [facility] Comment on above: Order Comment: citra enid tube Result Comment: Slid e reviewed by ANU. Performed By: #### 1 315918357, 7687178790, 7663103354, 5633902, 3966863242, 810392249, 3210727161 ####[facility] [address] [place] [address] Reference Laboratory Testing Ordered By: Louann Girard on 05-13-2023 Test Code 569219 Invalid Interpretation Code [facility] Test Name Platelet Antibo Invalid Interpretation Code [facility]23 Consent [id number]#[id number]:127 Normal [facility] Lab Miscellaneous-LCon 05-02 Lab Miscellaneous COMMENT Invalid Interpretation Code [facility] Comment on above: Order Comment: CPT - 17976, 91450c1, 49824, 98117, 03542f4, 11640 Result Comment: Test Ordered: 204120 Flow Cytometry PNHInterpretation: Comment ;#Peripheral Blood:No evidence of paroxysmal nocturnal hemoglobinuria (PNH)DISCLAIMER: REFER TO HARDCOPY OR PDF FOR COMPLETE RESULT.If synopsis provided, clinical decisions should not bebased on this interfaced synopsis alone.Performed at: [address] [id number] PhD David Alexandra Performed By: #### 1 [id number] ####[facility] [address] [place] [address] ILANA w/Reflex if POSon 2022 Nuclear Ab Ql (S) Negative Invalid Interpretation Code Negative [facility] Comment on above: Result Comment: Perf ormed at: [facility] [address] [place], [place] [id number] PhD David Alexandra Performed By: #### 1 7230340, 7450237, 26870102, 21955783, 5345581, 2327984, 7538808, 9479053, 93272465, 2769999, 6351460, 4215975, 1197085, 7254209 ####[facility] [address] [place] [address] Copper Lvlon 05-01-2023 Copper [Mass/Vol] 118 microgram/dL Invalid Interpretation Code 80-158 [facility] Comment on above: Result Comment: This test was developed and its performance characteristicsdetermined by [employer]. It has not been cleared or approvedby the Food and Drug Administration.Detection Limit = 5Performed at: [address] [id number] MD Christiano Kolb Performed By: #### 1 9452677, 1932011, 02579616, 76926639, 8096408, 3774567, 3127585, 3135463, 29081732, 2041953, 1706276, 8718528, 2118097, 5889009 ####[facility] [address] [place] [address] RF Quanton 05-01-2023 Rheumatoid factor Qn [IU]/mL Invalid Interpretation Code <14.0 [facility] Comment on above: Result Comment: Perf ormed at: [facility] [address] [place], [place] [id number] PhD David Alexandra Performed By: #### 1 6441200, 9769317, 70589446, 30181183, 3682921, 3726000, 6337210, 6246927, 51745774, 4706741, 7809463, 8009008, 4947422, 3150519 ####[facility] [address] [place] [address] Auto Diffon 04-29-2023 Basophils/100 WBC (Bld) 1.1 % Normal 0.0-2.0 [facility] Comment on above: Order Comment: Order Added by Discern Expert. Performed By: #### 1 6357196, 2295361, 57048733, 02636683, 9197757, 6703720, 2226902, 9459737, 24719836, 9269502, 8292471, 2164346, 5657936, 2957638 ####[facility] [address] [place] [address] Basophils/Leukocyt es Auto (Bld) [Pure # fraction] 0.0 E9/L Normal 0.0-0.2 [facility] Comment on above: Order Comment: Order Added by Discern Expert. Performed By: #### 1 1551150, 8668907, 92751202, 85736483, 1876736, 7591426, 4365064, 1777083, 44459257, 2689621, 7034221, 5981756, 1510618, 9842047 ####[address] [place] [address] Eosinophils/100 WBC (Bld) 4.5 % Normal 0.0-8.0 [facility] Comment on above: Order Comment: Order Added by Discern Expert. Performed By: #### 1 9049898, 9839848, 81274974, 84854479, 8033169, 4997596, 3966705, 4449911, 08356242, 0419245, 1412724, 9002795, 4975500, 6748772 ####[facility] [address] [place] [address] Eosinophils/Leukoc ytes Auto (Bld) [Pure # fraction] 0.2 E9/L Normal 0.0-0.5 [facility] Comment on above: Order Comment: Order Added by Discern Expert. Performed By: #### 1 0135103, 8750261, 51910357, 56029336, 5301776, 1768039, 9551052, 3569613, 71790164, 0289941, 0957950, 0406357, 9137597, 6746661 ####[facility] [address] [place] [address] Lymphocytes/100 WBC (Bld) 23.0 % Normal 14.0-50.0 [facility] Comment on above: Order Comment: Order Added by Discern Expert. Performed By: #### 1 5544614, 8909374, 06666983, 17966642, 6201424, 5012416, 8065847, 2407652, 99099556, 1953357, 3543866, 9045514, 3235778, 3868663 ####[facility] [address] [place] [address] Lymphocytes/Leukoc ytes Auto (Bld) [Pure # fraction] 0.8 E9/L Low 1.0-4.0 [facility] Comment on above: Order Comment: Order Added by Discern Expert. Performed By: #### 1 8217380, 9201703, 56578425, 03108719, 4579432, 0976453, 8835400, 0676269, 24674889, 8515788, 4787849, 4414478, 3139245, 0349072 ####[address] [place] [address] Monocytes/100 WBC (Bld) 10.7 % Normal 4.0-14.0 [facility] Comment on above: Order Comment: Order Added by Discern Expert. Performed By: #### 1 8806170, 7223464, 03404001, 46996421, 2213009, 1716913, 1221409, 9614318, 24403987, 9369312, 8249682, 3302450, 4822952, 4478377 ####[facility] [address] [place] [address] Monocytes/Leukocyt es Auto (Bld) [Pure # fraction] 0.4 E9/L Normal 0.2-1.0 [facility] Comment on above: Order Comment: Order Added by Discern Expert. Performed By: #### 1 3343033, 8123166, 78676755, 04999409, 5504811, 6544918, 4049855, 3105118, 59096099, 7022278, 2532737, 6581698, 2499687, 0754365 ####[facility] [address] [place] [address] Neutrophils/100 WBC (Bld) 60.7 % Normal 36.0-75.0 [facility] Comment on above: Order Comment: Order Added by Discern Expert. Performed By: #### 1 3569129, 9244393, 74434031, 76029628, 8922668, 2125955, 0182835, 0568270, 73674957, 4137637, 1969034, 9871901, 5205275, 8719921 ####[facility] [address] [place] [address] Neutrophils/Leukoc ytes Auto (Bld) [Pure # fraction] 2.1 E9/L Normal 2.0-7.5 [facility] Comment on above: Order Comment: Order Added by Discern Expert. Performed By: #### 1 7720481, 1199795, 45139550, 37073865, 2534654, 4299520, 7576951, 1010340, 04762443, 5179020, 0438502, 5860886, 0573618, 8927408 ####[facility] [address] [place] [address] CBC w/ Auto Diffon 3 Erythrocyte distribution width (RBC) [Ratio] 13.3 % Normal 10.9-14.2 [facility] Comment on above: Performed By: #### 1 4743046, 4211115, 89670820, 07900113, 7838325, 3547007, 6594588, 3204676, 39049832, 3506041, 3388170, 6946462, 3270337, 8493487 ####[facility] [address] [place] [address] Hematocrit (Bld) [Volume fraction] 36.7 % Normal 34.0-46.0 [facility] Comment on above: Performed By: #### 1 6209458, 0002113, 51632737, 88099349, 6602738, 3582351, 0321013, 6576310, 54334489, 3180024, 6894692, 8539618, 2863275, 0743840 ####[address] [place] [address] Hemoglobin (Bld) [Mass/Vol] 12.5 g/dL Normal 12.0-16.0 [facility] Comment on above: Performed By: #### 1 8635656, 6470274, 16619613, 61694565, 9269199, 5776784, 8386309, 1181935, 48839726, 3657926, 5106649, 0904641, 4518413, 3276055 ####[address] [place] [address] MCH (RBC) [Entitic mass] 31.2 pg Normal 27.0-34.0 [facility] Comment on above: Performed By: #### 1 1906316, 4052538, 96568762, 64380092, 0769729, 8711866, 6396488, 2952590, 77578569, 3739362, 7641548, 3630168, 4056107, 7474961 ####[address] [address] MCHC (RBC) [Mass/Vol] 34.0 g/dL Normal 31.4-36.0 [facility] Comment on above: Performed By: #### 1 1899960, 7627730, 09062427, 08672359, 6106502, 7007439, 3733220, 2293184, 09479023, 0012015, 7932671, 0326903, 6248168, 3936009 ####[address] [address] MCV (RBC) [Entitic vol] 91.6 fL Normal 80.0-100.0 [facility] Comment on above: Performed By: #### 1 1452574, 1350272, 54430064, 02680599, 4770512, 1648512, 5488147, 9107199, 87292457, 2413816, 5302084, 4798945, 1174714, 8917488 ####[address] [place] [address] Platelet mean volume (Bld) [Entitic vol] 9.0 fL Normal 6.4-10.8 [facility] Comment on above: Performed By: #### 1 9869382, 7415074, 84330761, 11254795, 2741935, 8793715, 7071050, 3546315, 94995530, 8079404, 9719630, 2269326, 3100877, 9257116 ####[address] [place] [address] Platelets (Bld) [#/Vol] 89.0 E9/L Low 150.0-500.0 [facility] Comment on above: Result Comment: Slid e reviewed by [place] platelets. Performed By: #### 1 6698301, 3253080, 52802316, 91474782, 9739223, 6067257, 9377075, 7777329, 58253819, 8453366, 7248029, 0253309, 9430108, 8722179 ####[address] [address] RBC (Bld) [#/Vol] 4.0 E12/L Low 4.3-5.9 [facility] Comment on above: Performed By: #### 1 4610324, 1611686, 80868559, 03623054, 4989044, 9709406, 0368318, 8815590, 80670526, 8890789, 4191758, 3834899, 3815495, 2666326 ####[facility] [address] [place] [address] WBC corrected for nucl RBC Auto (Bld) [#/Vol] 3.5 E9/L Low 4.0-11.0 [facility] Comment on above: Performed By: #### 1 5421457, 2864083, 44444535, 81322483, 0466844, 3088821, 1966924, 7699430, 35438287, 1109553, 9998265, 7842555, 7769252, 8773619 ####[facility] [address] [place] [address] CMPon 04-29-2023 Albumin [Mass/Vol] 3.6 g/dL Normal 3.3-5.0 [facility] Comment on above: Performed By: #### 1 0855186, 1697840, 63506740, 97627993, 6175204, 2745379, 1501494, 4347519, 66325324, 3419424, 9154648, 3572180, 4435135, 5071515 ####[facility] [address] [place] [address] Albumin/Globulin (S) [Mass conc ratio] 1.0 Low 1.1-2.2 [facility] Comment on above: Performed By: #### 1 5599351, 5923673, 30111604, 33382269, 9632345, 3356305, 2974150, 4711012, 99601005, 4462217, 4855167, 4752382, 6765273, 8125794 ####[address] [place] [address] ALP [Catalytic activity/Vol] 76 Int._Unit/L Normal 21-98 [facility] Comment on above: Performed By: #### 1 6797268, 7030012, 58456267, 13708262, 6630723, 8153536, 2077720, 8522266, 45749926, 6016875, 6260071, 9229584, 5018055, 3657196 ####[address] [place] [address] ALT No additional P-5'-P [Catalytic activity/Vol] 23 Int._Unit/L Normal 6-46 [facility] Comment on above: Performed By: #### 1 6279865, 3556384, 76113816, 91387549, 4266816, 1059315, 6201472, 3610506, 22073369, 8053402, 1430610, 0352863, 1522525, 5841505 ####[address] [place] [address] Anion gap [Moles/Vol] 15 mmol/L Normal 6-16 [facility] Comment on above: Performed By: #### 1 9475738, 8082256, 56213906, 79472504, 0727780, 4693052, 4057748, 1600961, 89196240, 8584730, 8425356, 2264793, 2470366, 6074254 ####[facility] [address] [place] [address] AST [Catalytic activity/Vol] 44 Int._Unit/L High 5-43 [facility] Comment on above: Performed By: #### 1 2450148, 5323104, 37144072, 17871734, 3474605, 2254750, 4780887, 2798125, 74175278, 0885022, 3972004, 1061508, 9993455, 9133240 ####[facility] [address] [place] [address] Bilirubin [Mass/Vol] 1.2 mg/dL High 0.0-1.1 [facility] Comment on above: Performed By: #### 1 7188840, 0625634, 98960129, 51988077, 7138601, 3941843, 7958321, 9156932, 03023448, 8083833, 6471353, 3097455, 8206596, 7823544 ####[facility] [address] [place] [address] Calcium [Mass/Vol] 9.3 mg/dL Normal 8.9-11.1 [facility] Comment on above: Performed By: #### 1 3780283, 8610659, 44165486, 12238082, 7543071, 9620420, 2047684, 2297473, 28836900, 2942247, 1522016, 1462507, 4029564, 5411136 ####[facility] [address] [place] [address] Chloride [Moles/Vol] 105 mmol/L Normal 101-111 [facility] Comment on above: Performed By: #### 1 3261044, 8348711, 15748618, 63816562, 7568102, 3769382, 1717677, 7198800, 85044725, 1675284, 7091794, 0750583, 4682082, 6451833 ####[facility] [address] [place] [address] CO2 [Moles/Vol] 23 mmol/L Normal 21-31 [facility] Comment on above: Performed By: #### 1 7088284, 3875426, 94770220, 33213061, 2856266, 7531333, 6445466, 4440800, 97949831, 7155759, 4815603, 0758053, 0877378, 6848186 ####[facility] [address] [place] [address] Creatinine [Mass/Vol] 1.1 mg/dL Normal 0.5-1.3 [facility] Comment on above: Performed By: #### 1 7866793, 7485347, 24756657, 00172797, 3574437, 7984285, 9543458, 0264391, 07694312, 8973779, 5816853, 5007015, 6577022, 5541493 ####[facility] [address] [place] [address] Globulin (S) [Mass/Vol] 3.5 g/dL Normal 1.4-4.0 [facility] Comment on above: Performed By: #### 1 8247191, 6616955, 29234815, 72256192, 9351913, 7665145, 0007038, 3869814, 03722502, 7449506, 5674861, 8591744, 6457123, 9283250 ####[facility] [address] [place] [address] Glucose [Mass/Vol] 155 mg/dL Normal 55-199 [facility] Comment on above: Result Comment: If t his glucose result represents a fasting glucose, interpretation should refer to the following reference range: 55-99 mg/dL Performed By: #### 1 2867946, 0782519, 27911278, 20145310, 4468543, 7009906, 4740220, 4285766, 16083522, 9444837, 7341197, 4298731, 1249055, 0815203 ####[facility] [address] [place] [address] Potassium [Moles/Vol] 3.5 mmol/L Normal 3.5-5.3 [facility] Comment on above: Performed By: #### 1 1819139, 5459988, 34977241, 78225011, 8879118, 8313827, 6343349, 5536635, 08279291, 6214797, 5157014, 7935654, 7729419, 3692548 ####[facility] [address] [place] [address] Protein [Mass/Vol] 7.1 g/dL Normal 6.0-7.8 [facility] Comment on above: Performed By: #### 1 4829734, 7269650, 29770707, 28190778, 6710949, 8769849, 2004974, 7077068, 19940741, 7330053, 2395219, 1806113, 6990903, 2596304 ####[address] [place] [address] Sodium [Moles/Vol] 139 mmol/L Normal 135-145 [facility] Comment on above: Performed By: #### 1 9199939, 4405239, 30946326, 94003834, 4293589, 8984326, 0869958, 5701488, 20274824, 1983912, 0183886, 4858269, 1674350, 7269428 ####[facility] [address] [place] [address] Urea nitrogen [Mass/Vol] 13 mg/dL Normal 5-21 [facility] Comment on above: Performed By: #### 1 7206106, 8645039, 95975736, 36874930, 2177265, 4749237, 2671127, 3130157, 60345131, 8576783, 7815765, 6462306, 9384382, 5619019 ####[facility] [address] [place] [address] Urea nitrogen/Creatinin e [Mass ratio] 12 No Units Normal 10-20 [facility] Comment on above: Performed By: #### 1 8749978, 6807080, 55937714, 41772643, 2622542, 6971712, 2846166, 4293799, 30575551, 5338814, 9421213, 0962226, 0321684, 4554657 ####[facility] [address] [place] [address] Consent for Treatmenton 04-12 Consent for Treatment [id number]:127 Normal [facility] Consent for Treatment [id number]#[id number]:127 Normal [facility] DATon 04-29-2023 LETICIA IgG/C3d Gel Interp Negative Normal [facility] Comment on above: Performed By: #### 1 6922543 ####[facility] [address] [place] [address] Ferritinon 04-29-2023 Ferritin [Mass/Vol] 45 ng/mL Normal 11-307 [facility] Comment on above: Result Comment: NORM ALS MEN <30 YRS 16-132 ng/mL MEN >30 YRS 8-338 ng/mL WOMEN (PREMEN) 6-104 ng/mL WOMEN (POSTMEN) 12-210 ng/mL Performed By: #### 1 3543913, 1843961, 66256587, 57319625, 0230013, 0821724, 1429235, 8069111, 37331832, 2212344, 4612775, 3674082, 2863080, 3710186 ####[facility] [address] [place] [address] Folateon 04-29-2023 Folate [Mass/Vol] 12.6 ng/mL Normal >=6.7 [facility] Comment on above: Performed By: #### 1 9387293, 2333214, 92411696, 34830932, 6635935, 1724194, 4261554, 4652893, 08883843, 7294264, 4559573, 8278836, 8951104, 7238011 ####[facility] [address] [place] [address] Ironon 04-29-2023 Iron [Mass/Vol] 128 microgram/dL Normal 35-153 [facility] Comment on above: Performed By: #### 1 2108177, 2553390, 27457363, 32484960, 3110584, 3588731, 2979814, 1377006, 55467443, 5891909, 4591100, 9831519, 7701000, 1556686 ####[address] [place] [address] Iron Saturationon 04-29-2023 Iron binding capacity [Mass/Vol] 391 microgram/dL Normal 250-400 [facility] Comment on above: Performed By: #### 1 4626850, 3163309, 70677864, 97545405, 0647821, 7985204, 4065060, 3901984, 17721976, 6873536, 1726644, 4942136, 6404267, 8863648 ####[address] [address] Iron saturation [Mass fraction] 33 % Normal 20-50 [facility] Comment on above: Performed By: #### 1 2844234, 7127888, 98634936, 97642582, 2354987, 1682773, 7743742, 8278552, 60519698, 3946918, 9967465, 2446983, 5579030, 0894436 ####[facility] [address] [place] [address] LDHon 04-29-2023 LDH [Catalytic activity/Vol] 195 Int._Unit/L Normal 93-218 [facility] Comment on above: Performed By: #### 1 1255164, 4800739, 61885253, 69850396, 1804375, 2205597, 5559572, 2571456, 19516190, 2991071, 2119176, 6611490, 5663841, 3001358 ####[address] [place] [address] Lab Miscellaneous-LCon 04-29 Test Code 690876 Invalid Interpretation Code [facility] Comment on above: Order Comment: CPT - 48983, 69635q0, 72961, 85121, 71247v5, 66186 Performed By: #### 1 350044708 ####[facility] [address] [place] [address] Test Name PNH Flow Cytome Invalid Interpretation Code [facility] Comment on above: Order Comment: CPT - 79958, 73901q1, 57652, 16841, 05176n8, 98185 Performed By: #### 1 031164714 ####[facility] [address] [place] [address] Oncology Noteon 04-29-2023 Oncology Note Normal [facility] Comment on above: Result Comment: Elec tronically Signed By: Maria M MATOS, Ana Luisa Morel.br\Date and Time Signed: 04/29/23 10:56 EDT Transferrinon 04-29-2023 Transferrin [Mass/Vol] 279 mg/dL Normal 200-370 [facility] Comment on above: Performed By: #### 1 9317357, 8115177, 21206403, 99306130, 4386881, 1916163, 3513528, 3152647, 98323391, 5689132, 5073845, 2766005, 5368166, 0950230 ####[facility] [address] [place] [address] Vit B12on 04-29-2023 Cobalamin (Vitamin B12) [Mass/Vol] 549 pg/mL Normal 50-1500 [facility] Comment on above: Performed By: #### 1 9027475, 7548434, 22698012, 15242942, 0655272, 9175062, 9910887, 7694031, 54148798, 0574172, 7101334, 4447036, 5000447, 8698994 ####[facility] [address] [place] [address] eGFRon 04-29-2023 GFR/1.73 sq M.predicted among non-blacks MDRD (S/P/Bld) [Vol rate/Area] 54 mL/min/1.73 m2 Low >=59 [facility] Comment on above: Order Comment: Order added by Discern Expert. Result Comment: [employer] annabella kidney disease could be indicated at eGFR's of less than 60 mL/min/1.73m2. Kidney failure is indicated at less than 15 mL/min/1.73m2. Performed By: #### 1 1900320, 6360535, 07644484, 23350700, 8475471, 6273373, 8125477, 0490208, 91151768, 8231116, 4726768, 4674940, 2443176, 8658977 ####[facility] [address] [place] [address] CHEMISTRYOrdered By: SYSTEM SYSTEM on 03-17-2023 Albumin [...] 8.9 fL Normal 6.4 - 10.8 fL [facility] HemeAutoSS Platelets (Bld) [#/Vol] 101.0 E9/L Low 150.0 - 500.0 E9/L FT HemeAutoSS RBC (Bld) [#/Vol] 4.0 E12/L Low 4.3 - 5.9 E12/L FT HemeAutoSS WBC corrected for nucl RBC Auto (Bld) [#/Vol] 3.0 E9/L Low 4.0 - 11.0 E9/L [facility] HemeAuto[facility] FREE T3on 09-18-2022 FREE T3 1.81 pg/mlL Critically low 2.18-3.98 [facility] Comment on above: Performed By: #### T SH, FT3 #### [facility] [address] [place] [address] Dr. Jt Waite FREE T4on 09-18-2022 Free T4 [Mass/Vol] 1.19 ng/dL Normal 0.76-1.46 [facility] Comment on above: Performed By: #### F T4 #### [facility] [address] [place] [address] Dr. Jt Waite GLYCOHEMOGLOBIN A1Con 2021 ADA RECOMMENDATION SEE BELOW Normal [facility] Comment on above: Result Comment: ADA RECOMMENDED LIMIT 4.0 - 6.0 ADA THERAPEUTIC TARGET < 7.0 ACTION SUGGESTED > 7.0 Performed By: #### A 1C #### [facility] [address] [place] [address] Dr. Jt Waite Glucose [Mass/Vol] 146 mg/dL Normal [facility] Comment on above: Performed By: #### A 1C #### [facility] [address] [place] [address] Dr. Jt Waite HbA1c (Bld) [Mass fraction] 6.7 % Critically high 4.5-6.2 [facility] Comment on above: Performed By: #### A 1C #### [facility] [address] [place] [address] Dr. Jt Waite TSHon 09-18-2022 TSH 3.693 uIU/mL Normal 0.358-3.740 [facility] Comment on above: Performed By: #### T , FT3 ####[facility] [address] [place], [place] [address]FpDr. Jt Waite CBC AUTO DIFFon 04-03-2022 BASO # 0.0 103/ul Normal 0.0-0.1 [facility] Comment on above: Performed By: #### C BC #### [facility] [address] [address] [address] Jt Watie Basophils/100 WBC (Bld) 0.9 % Normal 0.2-2.0 [facility] Comment on above: Performed By: #### C BC #### [facility] [address] [address] [address] Jt Waite EO # 0.1 103/ul Normal 0.0-0.7 [facility] Comment on above: Performed By: #### C BC #### [facility] [address] [address] [address] Jt Waite Eosinophils/100 WBC (Bld) 3.3 % Normal 0.9-7.0 [facility] Comment on above: Performed By: #### C BC #### [facility] [address] [address] [address] Jt Waite Erythrocyte distribution width (RBC) [Ratio] 13.1 % Normal 11.0-15.0 [facility] Comment on above: Performed By: #### C BC #### [facility] [address] [address] [address] Jt Waite Hematocrit (Bld) [Volume fraction] 36.1 % Normal 36.0-48.0 [facility] Comment on above: Performed By: #### C BC #### [facility] [address] [address] [address] Jt Waite Hemoglobin (Bld) [Mass/Vol] 12.3 g/dL Normal 12.0-16.0 [facility] Comment on above: Performed By: #### C BC #### [facility] [address] [address] [address] Jt Waite IG # 0.01 10e3/ul Normal 0.00-0.03 [facility] Comment on above: Performed By: #### C BC #### [facility] [address] [place] [address] Dr. Jt Waite IG % 0.3 % Normal 0.0-0.5 [facility] Comment on above: Performed By: #### C BC #### [facility] [address] [place] [address] Dr. Jt Waite LYMPH # 1.2 103/ul Normal 1.2-3.8 [facility] Comment on above: Performed By: #### C BC #### [facility] [address] [place] [address] Dr. Jt Waite Lymphocytes/100 WBC (Bld) 35.4 % Normal 20.5-60.0 [facility] Comment on above: Performed By: #### C BC #### [facility] [address] [place] [address] Dr. Jt Waite MANUAL DIFF REQ NO Normal [facility] Comment on above: Performed By: #### C BC #### [facility] [address] [place] [address] Dr. Jt Waite MCH (RBC) [Entitic mass] 31.0 pg Normal 26.7-34.0 [facility] Comment on above: Performed By: #### C BC #### [facility] [address] [place] [address] Dr. Jt Waite MCHC (RBC) [Mass/Vol] 34.1 g/dL Normal 29.9-35.2 [facility] Comment on above: Performed By: #### C BC #### [facility] [address] [place] [address] Dr. Jt Waite MCV (RBC) [Entitic vol] 90.9 fL Normal 81.0-99.0 [facility] Comment on above: Performed By: #### C BC #### [facility] [address] [place] [address] Dr. Jt Waite MONO # 0.3 103/ul Normal 0.3-0.8 [facility] Comment on above: Performed By: #### C BC #### [facility] [address] [place] [address] Dr. Jt Waite Monocytes/100 WBC (Bld) 9.3 % Normal 1.7-12.0 [facility] Comment on above: Performed By: #### C BC #### [facility] [address] [address] [address] Jt Waite NEUT # 1.7 103/ul Normal 1.4-6.5 [facility] Comment on above: Performed By: #### C BC #### [facility] [address] [place] [address] Dr. Jt Waite Neutrophils/100 WBC (Bld) 50.8 % Normal 43.0-75.0 [facility] Comment on above: Performed By: #### C BC #### [facility] [address] [place] [address] Dr. Jt Waite Platelet mean volume (Bld) [Entitic vol] 10.2 fL Normal 9.5-13.5 [facility] Comment on above: Performed By: #### C BC #### [facility] [address] [place] [address] Dr. Jt Waite PLT 96 103/ul Critically low 150-450 [facility] Comment on above: Performed By: #### C BC #### [facility] [address] [place] [address] Dr. Jt Waite RBC 3.97 106/ul Critically low 4.20-5.40 [facility] Comment on above: Performed By: #### C BC #### [facility] [address] [place] [address] Dr. Jt Waite WBC 3.3 103/ul Critically low 4.0-11.0 [facility] Comment on above: Performed By: #### C BC #### [facility] [address] [place] [address] Dr. Jt Waite GLYCOHEMOGLOBIN A1Con 2021 ADA RECOMMENDATION SEE BELOW Normal [facility] Comment on above: Result Comment: ADA RECOMMENDED LIMIT 4.0 - 6.0 ADA THERAPEUTIC TARGET < 7.0 ACTION SUGGESTED > 7.0 Performed By: #### A 1C #### [facility] [address] [place] [address] Dr. Jt Waite Glucose [Mass/Vol] 120 mg/dL Normal [facility] Comment on above: Performed By: #### A 1C #### [facility] [address] [place] [address] Dr. Jt Waite HbA1c (Bld) [Mass fraction] 5.8 % Normal 4.5-6.2 [facility] Comment on above: Performed By: #### A 1C #### [facility] [address] [place] [address] Dr. Jt Waite LIPID PROFILEon 04-03-2022 CHOL-HDL RATIO NORM SEE BELOW Normal [facility] Comment on above: Result Comment: 3.3 - 4.4 LOW RISK 4.4 - 7.1 AVERAGE RISK 7.1 - 11.0 MODERATE RISK >11.0 HIGH RISK Performed By: #### C MP, LIPID #### [facility] [address] [place] [address] Dr. Jt Waite Cholesterol [Mass/Vol] 133 mg/dL Normal <=200 [facility] Comment on above: Performed By: #### C MP, LIPID #### [facility] [address] [place] [address] Dr. Jt Waite Cholesterol in HDL [Mass/Vol] 37 mg/dL Critically low 40-60 [facility] Comment on above: Performed By: #### C MP, LIPID #### [facility] [address] [place] [address] Dr. Jt Waite Cholesterol in LDL [Mass/Vol] 81.0 mg/dL Normal [facility] Comment on above: Performed By: #### C MP, LIPID #### [facility] [address] [place] [address] Dr. Jt Waite Cholesterol.total/ Cholesterol in HDL [Mass ratio] 3.6 {ratio} Normal [facility] Comment on above: Performed By: #### C MP, LIPID #### [facility] [address] [place] [address] Dr. Jt Waite HDL NORMAL > or = 60 mg/dl - LO W CARDIOVASCULAR RISK <40 mg/dl - HIGH CARDIOVASCULAR RISK Normal [facility] Comment on above: Performed By: #### C MP, LIPID #### [facility] [address] [place] [address] Dr. Jt Waite LDL CALC NORMAL SEE BELOW Normal [facility] Comment on above: Result Comment: <100 mg/dl OPTIMAL 100 - 129 mg/dl NEAR OR ABOVE OPTIMAL 130 - 159 mg/dl BORDERLINE HIGH 160 - 189 mg/dl HIGH >190 mg/dl VERY HIGH Performed By: #### C MP, LIPID #### [facility] [address] [place] [address] Dr. Jt Waite Triglyceride [Mass/Vol] 75 mg/dL Normal <=150 [facility] Comment on above: Performed By: #### C MP, LIPID #### [facility] [address] [place] [address] Dr. Jt Waite VLDL CALC 15.0 mg/dL Normal [facility] Comment on above: Performed By: #### C MP, LIPID #### [facility] [address] [place] [address] Dr. Jt Waite PROF 14(COMP METB)on 022 Albumin [Mass/Vol] 3.4 g/dL Normal 3.4-5.0 [facility] Comment on above: Performed By: #### C MP, LIPID #### [facility] [address] [place] [address] Dr. Jt Waite Albumin/Globulin [Mass ratio] 0.9 {ratio} Normal [facility] Comment on above: Performed By: #### C MP, LIPID #### [facility] [address] [place] [address] Dr. Jt Waite ALP [Catalytic activity/Vol] 82 U/L Normal 46-116 [facility] Comment on above: Performed By: #### C MP, LIPID #### [facility] [address] [place] [address] Dr. Jt Waite ALT [Catalytic activity/Vol] 24 U/L Normal 14-59 [facility] Comment on above: Performed By: #### C MP, LIPID #### [facility] [address] [address] [address] tJ Waite Anion gap [Moles/Vol] 13.1 mmol/L Normal [facility] Comment on above: Performed By: #### C MP, LIPID #### [facility] [address] [address] [address] Jt Waite AST [Catalytic activity/Vol] 31 U/L Normal 15-37 [facility] Comment on above: Performed By: #### C MP, LIPID #### [facility] [address] [address] [address] Jt Waite Bilirubin [Mass/Vol] 1.0 mg/dL Normal 0.2-1.0 [facility] Comment on above: Performed By: #### C MP, LIPID #### [facility] [address] [place] [address] Dr. Jt Waite Calcium [Mass/Vol] 9.1 mg/dL Normal 8.5-10.1 [facility] Comment on above: Performed By: #### C MP, LIPID #### [facility] [address] [address] [address] Jt Waite Chloride [Moles/Vol] 105 mmol/L Normal 98-107 [facility] Comment on above: Performed By: #### C MP, LIPID #### [facility] [address] [place] [address] Dr. Jt Waite CO2 [Moles/Vol] 27.4 mmol/L Normal 21.0-32.0 [facility] Comment on above: Performed By: #### C MP, LIPID #### [facility] [address] [address] [address] Jt Waite Creatinine [Mass/Vol] 1.03 mg/dL Critically high 0.55-1.02 [facility] Comment on above: Performed By: #### C MP, LIPID #### [facility] [address] [address] [address] Jt Waite EGFR-AF GABONESE >60 Normal >=60 [facility] Comment on above: Performed By: #### C MP, LIPID #### [facility] [address] [address] [address] Jt Waite EGFR-NON AF GABONESE 53 mL/min/1.73m2 Critically low >=60 [facility] Comment on above: Performed By: #### C MP, LIPID #### [facility] [address] [address] [address] Jt Waite Globulin (S) [Mass/Vol] 3.7 g/dL Normal [facility] Comment on above: Performed By: #### C MP, LIPID #### [facility] [address] [address] [address] Jt Waite Glucose [Mass/Vol] 100 mg/dL Normal 74-106 [facility] Comment on above: Performed By: #### C MP, LIPID #### [facility] [address] [address] [address] Jt Waite Potassium [Moles/Vol] 3.5 mmol/L Normal 3.5-5.1 [facility] Comment on above: Performed By: #### C MP, LIPID #### [facility] [address] [address] [address] Jt Waite Protein [Mass/Vol] 7.1 g/dL Normal 6.4-8.2 [facility] Comment on above: Performed By: #### C MP, LIPID #### [facility] [address] [address] [address] Jt Waite Sodium [Moles/Vol] 142 mmol/L Normal 136-145 [facility] Comment on above: Performed By: #### C MP, LIPID #### [facility] [address] [address] [address] Jt Waite Urea nitrogen [Mass/Vol] 23.0 mg/dL Critically high 7.0-18.0 [facility] Comment on above: Performed By: #### C MP, LIPID #### [facility] [address] [address] [address] Jt Waite Urea nitrogen/Creatinin e [Mass ratio] 22.3 mg/mg Normal [facility] Comment on above: Performed By: #### C MP, LIPID #### [facility] [address] [address] [address] Jt Waite D-DIMERon 03-15-2022 D-DIMER 0.32 mg/L FEU Normal <=0.59 [facility] Comment on above: Performed By: #### D DIM #### [facility] [address] [place] [address] Dr. Jt Waite D-DIMER COMMENTS SEE BELOW Normal [facility] Comment on above: Result Comment: Incr [...] hospitalization. Performed By: #### D DIM #### [facility] [address] [place] [address] Dr. Jt Waite ECHOCARDIO M/2D COMPLETEon 0 03-12-2022 ECHOCARDIO M/2D COMPLETE Patient: MISA SANTOS Exam Date: 03/12/2022 : 1955 Gender:F Ordering : HOLLY VALDOVINOS Admission #: [id number] Family : Order #: [id number] CLICK HERE TO VIEW EXAM ECHOCARDIOGRAM REPORT [...] Area(A4C): 25.20 cm2 Left Atrium Systolic Volume(A2C): 91726 mm3 Left Atrium Systolic Volume(A4C): 57272 mm3 Mitral Valve MV E to A [...] Perdue M.D. on 03/12/2022 at 19:30 Normal [facility] GLYCOHEMOGLOBIN A1Con 2020 ADA RECOMMENDATION ADA THERAPEUTIC TARG ET 6.0 - 7.0 ACTION SUGGESTED > 7.0 Normal [facility] Comment on above: Performed By: #### A 1C #### [facility] [address] [address] [address] Jt Waite Glucose [Mass/Vol] 140 mg/dL Normal [facility] Comment on above: Performed By: #### A 1C #### [facility] [address] [address] [address] Jt Waite HbA1c (Bld) [Mass fraction] 6.5 % Critically high <=6.0 [facility] Comment on above: Performed By: #### A 1C #### [facility] [address] [address] [address] Jt Waite Vital Signs Date Time Vital Sign Value Performing Clinician Facility 03-15-2024 09:57-0400 Body temperature 97.52 [degF] d Al-Marrawi [facility] 03-15-2024 09:57-0400 Diastolic blood pressure 82 mm[Hg] d Al-Marrawi [facility] 03-15-2024 09:57-0400 Heart rate 64 /min d Al-Marrawi [facility] 03-15-2024 09:57-0400 Mean blood pressure 94 mm[Hg] d Al-Marrawi [facility] 03-15-2024 09:57-0400 Respiratory rate 16 /min d Al-Marrawi [facility] 03-15-2024 09:57-0400 SaO2% (BldA) [Mass fraction] 93 % Mhd Al-Marrawi [facility] 03-15-2024 09:57-0400 Systolic blood pressure 118 mm[Hg] Mhd Al-Marrawi [facility] 03-02-2024 12:19-0400 Blood Pressure Location Cabrera Sarmini [facility] 03-02-2024 12:19-0400 Diastolic blood pressure 84 mm[Hg] Cabrera Sarmini [facility] 03-02-2024 12:19-0400 Heart rate 78 /min Cabrera Sarmini [facility] 03-02-2024 12:19-0400 Respiratory rate 18 /min Cabrera Sarmini [facility] 03-02-2024 12:19-0400 Systolic blood pressure 120 mm[Hg] Cabrera Sarmini [facility] 02-06-2024 11:25-0400 Blood Pressure Location Cabrera Sarmini [facility] 02-06-2024 11:25-0400 Diastolic blood pressure 72 mm[Hg] Cabrera Sarmini [facility] 02-06-2024 11:25-0400 Heart rate 54 /min Cabrera Sarmini [facility] 02-06-2024 11:25-0400 Mean blood pressure 90 mm[Hg] Cabrera Sarmini [facility] 02-06-2024 11:25-0400 Respiratory rate 14 /min Cabrera Sarmini [facility] 02-06-2024 11:25-0400 SaO2% (BldA) [Mass fraction] 96 % Cabrera Sarmini [facility] 02-06-2024 11:25-0400 Systolic blood pressure 125 mm[Hg] Cabrera Sarmini [facility] 02-06-2024 11:15-0400 Blood Pressure Location Cabrera Sarmini [facility] 02-06-2024 11:15-0400 Diastolic blood pressure 68 mm[Hg] Cabrera Sarmini [facility] 02-06-2024 11:15-0400 Heart rate 58 /min Cabrera Sarmini [facility] 02-06-2024 11:15-0400 Mean blood pressure 84 mm[Hg] Cabrera Sarmini [facility] 02-06-2024 11:15-0400 Respiratory rate 27 /min Cabrera Sarmini [facility] 02-06-2024 11:15-0400 SaO2% (BldA) [Mass fraction] 96 % Cabrera Sarmini [facility] 02-06-2024 11:15-0400 Systolic blood pressure 115 mm[Hg] Cabrera Sarmini [facility] 02-06-2024 11:10-0400 Blood Pressure Location Cabrera Sarmini [facility] 02-06-2024 11:10-0400 Diastolic blood pressure 72 mm[Hg] Cabrera Sarmini [facility] 02-06-2024 11:10-0400 Heart rate 51 /min Cabrera Sarmini [facility] 02-06-2024 11:10-0400 Mean blood pressure 85 mm[Hg] Cabrera Sarmini [facility] 02-06-2024 11:10-0400 Respiratory rate 18 /min Cabrera Sarmini [facility] 02-06-2024 11:10-0400 SaO2% (BldA) [Mass fraction] 94 % Cabrera Sarmini [facility] 02-06-2024 11:10-0400 Systolic blood pressure 112 mm[Hg] Cabrera Sarmini [facility] 02-06-2024 11:03-0400 Body temperature 97.34 [degF] Cabrera Sarmini [facility] 02-06-2024 10:55-0400 Respiratory rate 17 /min Cabrera Sarmini [facility] 02-06-2024 10:50-0400 Respiratory rate 18 /min Cabrera Sarmini [facility] 02-06-2024 09:23-0400 Body temperature 97.52 [degF] Cabrera Sarmini [facility] 12-15-2023 10:11-0500 Body temperature 97.7 [degF] Mhd Al-Marrawi [facility] 12-15-2023 10:11-0500 Diastolic blood pressure 55 mm[Hg] Mhd Al-Marrawi [facility] 12-15-2023 10:11-0500 Heart rate 53 /min Mhd Al-Marrawi [facility] 12-15-2023 10:11-0500 Mean blood pressure 71 mm[Hg] Mhd Al-Marrawi [facility] 12-15-2023 10:11-0500 Respiratory rate 20 /min Mhd Al-Marrawi [facility] 12-15-2023 10:11-0500 SaO2% (BldA) [Mass fraction] 96 % Mhd Al-Marrawi [facility] 12-15-2023 10:11-0500 Systolic blood pressure 104 mm[Hg] d Nc-Marrawi [facility] 10-01-2023 12:37-0500 Blood Pressure Location Ashlie Boston [facility] 10-01-2023 12:37-0500 Body temperature 96.8 [degF] Ashlie Boston [facility] 10-01-2023 12:37-0500 Diastolic blood pressure 79 mm[Hg] Ashlie Boston [facility] 10-01-2023 12:37-0500 Heart rate 55 /min Ashlie Boston [facility] 10-01-2023 12:37-0500 Systolic blood pressure 119 mm[Hg] Ashlie Boston [facility] 07-31-2023 09:49-0400 Blood Pressure Location Ashlie Boston [facility] 07-31-2023 09:49-0400 Body temperature 96.8 [degF] Ashlie Boston [facility] 07-31-2023 09:49-0400 Diastolic blood pressure 67 mm[Hg] Ashlie Boston [facility] 07-31-2023 09:49-0400 Heart rate 59 /min Ashlie Mead [facility] 07-31-2023 09:49-0400 Systolic blood pressure 123 mm[Hg] Ashlie Mead [facility] 06-24-2023 10:12-0400 Heart rate 48 /min Mhd Al-Marrawi [facility] 06-24-2023 10:12-0400 SaO2% (BldA) [Mass fraction] 96 % Mhd Al-Marrawi [facility] 06-24-2023 10:12-0400 Blood Pressure Location Mhd Al-Marrawi [facility] 06-24-2023 10:12-0400 Diastolic blood pressure 61 mm[Hg] Mhd Al-Marrawi [facility] 06-24-2023 10:12-0400 Mean blood pressure 79 mm[Hg] Mhd Al-Marrawi [facility] 06-24-2023 10:12-0400 Systolic blood pressure 115 mm[Hg] Mhd Al-Marrawi [facility] 06-24-2023 10:11-0400 Body temperature 97.88 [degF] Mhd Al-Marrawi [facility] 06-24-2023 10:11-0400 Respiratory rate 17 /min Mhd Al-Marrawi [facility] 06-24-2023 09:04-0400 Heart rate 58 /min Mhd Al-Marrawi [facility] 06-24-2023 09:04-0400 SaO2% (BldA) [Mass fraction] 96 % Mhd Al-Marrawi [facility] 06-24-2023 09:04-0400 Respiratory rate 18 /min Mhd Al-Marrawi [facility] 06-24-2023 09:04-0400 Blood Pressure Location Mhd Al-Marrawi [facility] 06-24-2023 09:04-0400 Diastolic blood pressure 76 mm[Hg] Mhd Al-Marrawi [facility] 06-24-2023 09:04-0400 Mean blood pressure 94 mm[Hg] Mhd Al-Marrawi [facility] 06-24-2023 09:04-0400 Systolic blood pressure 131 mm[Hg] Mhd Al-Marrawi [facility] 06-17-2023 10:00-0400 Blood Pressure Location Mhd Al-Marrawi [facility] 06-17-2023 10:00-0400 Body temperature 98.42 [degF] Mhd Al-Marrawi [facility] 06-17-2023 10:00-0400 Diastolic blood pressure 74 mm[Hg] Mhd Al-Marrawi [facility] 06-17-2023 10:00-0400 Heart rate 49 /min Mhd Al-Marrawi [facility] 06-17-2023 10:00-0400 Mean blood pressure 92 mm[Hg] Mhd Al-Marrawi [facility] 06-17-2023 10:00-0400 Respiratory rate 18 /min Mhd Al-Marrawi [facility] 06-17-2023 10:00-0400 SaO2% (BldA) [Mass fraction] 95 % Mhd Al-Marrawi [facility] 06-17-2023 10:00-0400 Systolic blood pressure 128 mm[Hg] Mhd Al-Marrawi [facility] 06-04-2023 13:02-0400 Blood Pressure Location Cabrera Sarmini [facility] 06-04-2023 13:02-0400 Diastolic blood pressure 70 mm[Hg] Cabrera Sarmini [facility] 06-04-2023 13:02-0400 Heart rate 76 /min Cabrera Sarmini [facility] 06-04-2023 13:02-0400 Respiratory rate 16 /min Cabrera Sarmini [facility] 06-04-2023 13:02-0400 Systolic blood pressure 122 mm[Hg] Cabrera Sarmini [facility] 05-13-2023 10:00-0400 Blood Pressure Location Mhd Al-Marrawi [facility] 05-13-2023 10:00-0400 Body temperature 97.52 [degF] Mhd Al-Marrawi [facility] 05-13-2023 10:00-0400 Diastolic blood pressure 77 mm[Hg] Mhd Al-Marrawi [facility] 05-13-2023 10:00-0400 Heart rate 56 /min Mhd Al-Marrawi [facility] 05-13-2023 10:00-0400 Mean blood pressure 95 mm[Hg] Mhd Al-Marrawi [facility] 05-13-2023 10:00-0400 SaO2% (BldA) [Mass fraction] 96 % d Al-Marrawi [facility] 05-13-2023 10:00-0400 Systolic blood pressure 130 mm[Hg] Mhd Al-Marrawi [facility] 04-29-2023 10:00-0400 Blood Pressure Location [facility] 04-29-2023 10:00-0400 Body temperature 98.06 [degF] [facility] 04-29-2023 10:00-0400 Diastolic blood pressure 72 mm[Hg] [facility] 04-29-2023 10:00-0400 Heart rate 53 /min [facility] 04-29-2023 10:00-0400 Mean blood pressure 89 mm[Hg] [facility] 04-29-2023 10:00-0400 Respiratory rate 18 /min [facility] 04-29-2023 10:00-0400 SaO2% (BldA) [Mass fraction] 96 % [facility] 04-29-2023 10:00-0400 Systolic blood pressure 122 mm[Hg] [facility] Encounters Encounter Date Encounter Type Care Provider Facility Start: 05-21-2024 End: 05-21-2024 ambulatory HUMPHREY HUFFMAN Facility:[facility] Start: 04-12-2024 End: 04-12-2024 ambulatory Willian Barrios [place] Start: 04-12-2024 End: 04-12-2024 Patient encounter procedure Willian Barrios [facility] Start: 03-29-2024 End: 03-29-2024 ambulatory Willian Barrios Facility:[facility] Start: 03-15-2024 End: 03-15-2024 ambulatory Mhd Yaser Al-Marrawi [place] Start: 03-15-2024 End: 03-15-2024 Patient encounter procedure Mhd Yaser Al-Marrawi [facility] Start: 03-09-2024 End: 03-09-2024 ambulatory Mhd Yaser Al-Marrawi [place] Start: 03-09-2024 End: 03-09-2024 Patient encounter procedure Mhd Yaser Al-Marrawi [facility] Start: 03-02-2024 End: 03-02-2024 ambulatory Cabrera Talal Sarmini Facility:[facility] Start: 03-02-2024 End: 03-02-2024 Patient encounter procedure Cabrera Talal Sarmini [facility] Start: 02-06-2024 End: 02-06-2024 ambulatory Cabrera Talal Sarmini [place] Start: 02-06-2024 End: 02-06-2024 Patient encounter procedure Cabrera Talal Sarmini [facility] Start: 01-02-2024 End: 01-02-2024 ambulatory ROTARY DRUM DYER Shalini Baumann Facility:[facility] Start: 12-15-2023 End: 12-15-2023 ambulatory Mhd Yaser Al-Marrawi [place] Start: 12-15-2023 End: 12-15-2023 Patient encounter procedure Mhd Yaser Al-Marrawi [facility] Start: 12-15-2023 End: 12-15-2023 ambulatory Mhd Yaser Al-Marrawi [place] Start: 12-15-2023 End: 12-15-2023 Patient encounter procedure Mhd Yaser Al-Marrawi [facility] Start: 10-01-2023 End: 10-01-2023 ambulatory Ashlie Victoria [place] Facility:[facility] Start: 10-01-2023 End: 10-01-2023 Patient encounter procedure Ashlie Victoria [place] [facility] Start: 09-29-2023 End: 09-29-2023 ambulatory Willian Barrios Facility:[facility] Start: 09-24-2023 End: 09-24-2023 ambulatory Willian Barrios Facility:[facility] Start: 09-17-2023 End: 09-17-2023 ambulatory Willian Barrios Facility:[facility] Start: 09-16-2023 End: 09-16-2023 ambulatory Willian Barrios Facility:[facility] Start: 09-15-2023 End: 09-15-2023 ambulatory Mhd Laney Amin Facility[place] Start: 09-15-2023 End: 09-15-2023 Patient encounter procedure Mhd aLney Wilson-Lars [facility] Start: 08-29-2023 End: 08-29-2023 ambulatory Willian Barrios Facility: [facility] Start: 07-31-2023 End: 07-31-2023 ambulatory Ashlie Victoria [place] Facility:[facility] Start: 07-31-2023 End: 07-31-2023 Patient encounter procedure Ashlie Victoria [place] [facility] Start: 07-30-2023 End: 07-30-2023 ambulatory Willian Barrios Facility:[facility] Start: 07-28-2023 End: 08-25-2023 ambulatory Willian Barrios Facility:[id number] Start: 07-24-2023 End: 07-25-2023 ambulatory Lucas PughSyed Bates Facility[place] Start: 07-22-2023 End: 07-22-2023 ambulatory Mhd Yaser Al-Marrawi Facility[place] Start: 06-30-2023 End: 06-30-2023 Lab Drop off Willian SiegelSyed Denis [facility] Start: 06-30-2023 End: 06-30-2023 ambulatory Willian Barrios Facility[place] Start: 06-24-2023 End: 06-24-2023 ambulatory Mhd Yaser Al-Marrawi Facility[place] Start: 06-24-2023 End: 06-24-2023 Patient encounter procedure Mhd Yaser Al-Marrawi [facility] Start: 06-17-2023 End: 06-17-2023 ambulatory Mhd Yaser Al-Marrawi [place] Start: 06-17-2023 End: 06-17-2023 Patient encounter procedure Mhd Yaser Al-Marrawi [facility] Start: 06-12-2023 End: 06-12-2023 ambulatory Mhd Yaser Al-Marrawi Facility[place] Start: 06-12-2023 End: 06-12-2023 Patient encounter procedure Mhd Yaser Al-Marrawi [facility] Start: 06-04-2023 End: 06-04-2023 ambulatory Cabrera Talal Sarmini Facility:[facility] Start: 06-04-2023 End: 06-04-2023 Patient encounter procedure Cabrera Talal Sarmini [facility] Start: 05-29-2023 End: 05-29-2023 ambulatory [facility] Start: 05-27-2023 End: 05-27-2023 ambulatory Mhd Yaser Al-Marrawi Facility[place] Start: 05-27-2023 End: 05-27-2023 Patient encounter procedure Mhd Yaser Al-Marrawi [facility] Start: 05-13-2023 End: 05-13-2023 ambulatory Mhd Yaser Al-Marrawi Facility[place] Start: 05-13-2023 End: 05-13-2023 Patient encounter procedure Mhd Yaser Al-Marrawi [facility] Start: 05-13-2023 End: 05-13-2023 ambulatory Mhd Yaser Al-Marrawi [place] [place]: 05-13-2023 End: 05-13-2023 Patient encounter procedure Mhd Yaser Al-Marrawi [facility] Start: 04-29-2023 End: 04-29-2023 ambulatory Mhd Yaser Al-Marrawi [place] [place]: 04-29-2023 End: 04-29-2023 ambulatory Mhd Yaser Al-Marrawi [place] Start: 04-29-2023 End: 04-29-2023 Patient encounter procedure Ortiz Alexander [facility] Start: 03-17-2023 End: 03-17-2023 Lab Drop off Willian Barrios [facility] Start: 09-18-2022 End: 09-19-[address] [...] End: 10-27-2018 Patient encounter procedure DEFAULT PHYSICIAN Facility:[facility] Procedures Date Procedure Procedure Detail Performing [...] mRNA (tozinameran 5y-11y) vaccine Deborah Rashid [facility] Comment on above: Result Comment: pfiz er 07-28-2023 influenza virus vaccine, unspecified formulation Ashlie Mead [facility] 07-28-2023 SARS-CoV-2 mRNA (tozinameran 5y-11y) vaccine Mariah Amin [facility] Comment on above: Result Comment: Covi d 19 pfizer 07-24-2022 influenza virus vaccine, unspecified formulation Willian Barrios [facility] 07-24-2022 SARS-CoV-2 (COVID-19 ) [id number] Willian Barrios [facility] 01-15-2022 SARS-CoV-2 mRNA (lkeizwrjgio-choe-ijmjg se) vaccine Willian Barrios [facility] 07-24-2021 influenza virus vaccine, unspecified formulation Willian Barrios [facility] 07-10-2021 SARS-CoV-2 (COVID-19 ) mRNA BNT-162b2 vax Willian Barrios [facility] 01-02-2021 SARS-CoV-2 (COVID-19 ) mRNA BNT-162b2 vax Willian Barrios [facility] 12-11-2020 SARS-CoV-2 (COVID-19 ) mRNA BNT-162b2 vax Willian Barrios [facility] 06-21-2020 influenza virus vaccine, unspecified formulation Willian Barrios [facility] 06-21-2020 pneumococcal polysaccharide vaccine, 23 valent Willian Barrios [facility] 07-13-2019 influenza virus vaccine, unspecified formulation Willian Barrios [facility] 07-10-2018 influenza virus vaccine, unspecified formulation Willian Barrios [facility] 11-20-2016 pneumococcal polysaccharide vaccine, 23 valent Willian Barrios [facility] NEGATED: Highlighted row has not occurred!06-30-2023 influenza virus vaccine, unspecified formulation Willian Barrios [facility] Payers Date Payer Category Payer Private Health Insurance [id number] Medicare [id number] 1961 Unknown [id number] 1955 Unknown [id number] 2.16.8 40.1.875894.3.579.2.647 1953 Unknown [id number] 2.16.84 0.1.342553.3.579.2.593 1953 Unknown [id number] 2.16.84 0.1.588314.3.579.2.593 1953 Unknown [id number] 2.16.84 0.1.199609.3.579.2.593 1953 Unknown [id number] 2.16.84 0.1.507345.3.579.2.593 1953 Unknown [id number] 2.16.84 0.1.362386.3.579.2.593 1953 Unknown [id number] 2.16.84 0.1.883803.3.579.2.593 1953 Unknown [id number] 2.16.84 0.1.580577.3.579.2.593 1953 Unknown [id number] 2.16.8 40.1.948185.3.579.2.727 1953 Unknown [id number] 2.16.8 40.1.651328.3.579.2.727 1953 Unknown [id number] 2.16.8 40.1.697420.3.579.2.727 1953 Unknown [id number] 2.16.8 40.1.554337.3.579.2.727 1953 Unknown [id number] 2.16.8 40.1.070276.3.579.2.727 1953 Unknown [id number] 2.16.8 40.1.050902.3.579.2.727 1953 Unknown [id number] 2.16.8 40.1.033941.3.579.2.727 1953 Unknown [id number] 2.16.8 40.1.443275.3.579.2. 1953 Unknown [id number] 2.16.8 40.1.998214.3.579.2. 1953 Unknown [id number] 2.16.8 40.1.110459.3.579.2. 1953 Unknown [id number] 2.16.8 40.1.960979.3.579.2. 1953 Unknown [id number] 2.16.8 40.1.213431.3.579.2 1953 Unknown [id number] 2.16.8 40.1.945691.3.579.2. 1953 Unknown [id number] 2.16.8 40.1.451406.3.579.2 1953 Unknown [id number] 2.16.8 40.1.646344.3.579.2 1953 Unknown [id number] 2.16.8 40.1.965792.3.579.2. 1953 Unknown [id number] 2.16.8 40.1.624830.3.579.2. 1953 Unknown [id number] 2.16.8 40.1.562177.3.579.2. 1953 Unknown [id number] 2.16.8 40.1.088850.3.579.2. 1953 Unknown [id number] 2.16.8 40.1.973723.3.579.2. 1953 Unknown [id number] 2.16.8 40.1.251249.3.579.2.72 1953 Unknown [id number] 2.16.8 40.1.769956.3.579.2.727 1953 Unknown [id number] 2.16.8 40.1.654651.3.579.2.727 1953 Unknown [id number] 2.16.8 40.1.563169.3.579.2.727 1953 Unknown [id number] 2.16.8 40.1.860776.3.579.2.727 1953 Unknown [id number] 2.16.8 40.1.369889.3.579.2.727 1953 Unknown [id number] 2.16.8 40.1.158863.3.579.2.727 1953 Unknown [id number] 2.16.8 40.1.599943.3.579.2.727 1953 Unknown [id number] 2.16.8 40.1.450648.3.579.2.727 1953 Unknown [id number] 2.16.8 40.1.762451.3.579.2.727 1953 Unknown [id number] 2.16.8 40.1.231353.3.579.2.727 1953 Unknown [id number] 2.16.8 40.1.729061.3.579.2.727 1953 Unknown [id number] 2.16.8 40.1.791323.3.579.2.727 1953 Unknown [id number] 2.16.8 40.1.946232.3.579.2.727 1953 Unknown [id number] 2.16.8 40.1.778370.3.579.2.727 Unknown Social History Date Type Detail Facility Start: 03-17-2023 End: 03-29-2024 Tobacco smoking status Never smoked tobacco (finding) [facility] Comment on above: denies Tobacco smoking status Never [facility] Comment on above: denies Sex Assigned At Female [facility] Medical Equipment Procedure Code Equipment Code Equipment Origin al Text Equipment Identifier Dates Misc DME Prescription, See Instructions, 100 strip(s), 0, one touch ultra test strips Test sugars once a day Dx E11.9, [facility]/pharmacy #[id number], Supply Start: 02-06-2023 Mis DME Prescription, See Instructions, 100 strip(s), 0, one touch ultra test strips Test sugars once a day Dx E11.9, [facility] #[id number], Supply Start: 02-06-2023 [facility] DME Prescription, See Instructions, 100 strip(s), 0, one touch ultra test strips Test sugars once a day Dx E11.9, [id number], Supply, 150, cm, 04/29/23 10:06:00 EDT, Height/Length Dosing, 112.3, kg, 04/29/23 10:06:00 EDT, Weight Dosing Start: 05-06-2023 [facility] DME Prescription, See Instructions, 100 strip(s), 0, one touch ultra test strips Test sugars once a day Dx E11.9, [id number], Supply, 150, cm, 04/29/23 10:06:00 EDT, Height/Length Dosing, 112.3, kg, 04/29/23 10:06:00 EDT, Weight Dosing Start: 05-06-2023 [facility] DME Prescription, See Instructions, 100 strip(s), 0, one touch ultra test strips Test sugars once a day Dx E11.9, [facility], Supply, 150, cm, 04/29/23 10:06:00 EDT, Height/Length Dosing, 112.3, kg, 04/29/23 10:06:00 EDT, Weight Dosing Start: 05-06-2023 [facility] DME Prescription, See Instructions, 100 strip(s), 0, one touch ultra test strips Test sugars once a day Dx E11.9, [id number], Supply, 150, cm, 04/29/23 10:06:00 EDT, Height/Length Dosing, 112.3, kg, 04/29/23 10:06:00 EDT, Weight Dosing Start: 05-06-2023 [facility] DME Prescription, See Instructions, 100 strip(s), 0, one touch ultra test strips Test sugars once a day Dx E11.9, [facility], Supply, 150, cm, 04/29/23 10:06:00 EDT, Height/Length Dosing, 112.3, kg, 04/29/23 10:06:00 EDT, Weight Dosing Start: 05-06-2023 [facility] DME Prescription, See Instructions, 100 strip(s), 0, one touch ultra test strips Test sugars once a day Dx E11.9, [facility], Supply, 150, cm, 04/29/23 10:06:00 EDT, Height/Length Dosing, 112.3, kg, 04/29/23 10:06:00 EDT, Weight Dosing Start: 05-06-2023 [facility] DME Prescription, See Instructions, 100 strip(s), 0, one touch ultra test strips Test sugars once a day Dx E11.9, [facility], Supply, 150, cm, 04/29/23 10:06:00 EDT, Height/Length Dosing, 112.3, kg, 04/29/23 10:06:00 EDT, Weight Dosing Start: 05-06-2023 [facility] DME Prescription, See Instructions, 100 strip(s), 0, one touch ultra test strips Test sugars once a day Dx E11.9, [id number], Supply, 150, cm, 04/29/23 10:06:00 EDT, Height/Length Dosing, 112.3, kg, 04/29/23 10:06:00 EDT, Weight Dosing Start: 05-06-2023 Unknown Unknown 07/24/23 Non Biological Unknown FDA Start: 07-24-2023 [facility] DME Prescription, See Instructions, 100 strip(s), 1, [...] 07/31/23 9:52:00 EDT, Weight Dosing Start: 08-21-2023 [facility] DME Prescription, See Instructions, 100 strip(s), 1, [...] day to obtain blood sugars Dx: E11.9, [facility]/pharmacy #[id number], Supply, 150.8, cm, 07/31/23 9:52:00 EDT, Height/Length Dosing, 112.7, kg, 07/31/23 9:52:00 EDT, Weight Dosing Start: 08-21-2023 [facility] DME Prescription, See Instructions, 100 strip(s), 1, one touch test strips. Use to test blood sugars once a day Dx E11.9, [facility]/pharmacy #[id number], Supply, 150.8, cm, 07/31/23 9:52:00 [...] 07/31/23 9:52:00 EDT, Weight Dosing Start: 08-21-2023 [facility] DME Prescription, See Instructions, 100 strip(s), 1, [...] 07/31/23 9:52:00 EDT, Weight Dosing Start: 08-21-2023 [facility] DME Prescription, See Instructions, 100 strip(s), 1, [...] 07/31/23 9:52:00 EDT, Weight Dosing Start: 08-21-2023 [facility] DME Prescription, See Instructions, 100 strip(s), 1, [...] 02/06/24 9:13:00 EDT, Weight Dosing Start: 03-01-2024 [facility] DME Prescription, See Instructions, 100 strip(s), 1, [...] 02/06/24 9:13:00 EDT, Weight Dosing Start: 03-01-2024 [facility] DME Prescription, See Instructions, 100 strip(s), 1, one touch test strips. Use to test blood sugars once a day Dx E11.9, [email or web address] #6177, Supply, 150.8, cm, 07/31/23 9:52:00 EDT, [...] 02/06/24 9:13:00 EDT, Weight Dosing Start: 03-01-2024 [facility] DME Prescription, See Instructions, 100 strip(s), 1, one touch test strips. Use to test blood sugars once a day Dx E11.9, [email or web address] #6177, Supply, 150.8, cm, 07/31/23 9:52:00 EDT, [...] 02/06/24 9:13:00 EDT, Weight Dosing Start: 03-01-2024 [facility] DME Prescription, See Instructions, 100 strip(s), 1, one touch test strips. Use to test blood sugars once a day Dx E11.9, [email or web address] #6177, Supply, 150.8, cm, 07/31/23 9:52:00 EDT, Height/Length Dosing, 112.7, kg, 07/31/23 9:52:00 EDT, Weight Dosing Start: 08-21-2023 Functional Status Date Assessment Result Facility 03-02-2024 Functional Status N/A [facility] 02-06-2024 Functional Status N/A [facility] 10-01-2023 Functional Status N/A [facility] 07-31-2023 Functional Status N/A [facility] 06-24-2023 Functional Status N/A [facility] 06-04-2023 Functional Status N/A [facility] Clinical Notes 04-18-2023 to 05-21-2024 [...] these instructions at home: Medicines ? Take capt-ukr-rmzqqej and prescription medicines only as told by [...] and water are not available, use hand senior game advisor. ? Avoid contact with people who have [...] away. Call yo (more content not included)... [facility] 03-15-2024 Hospital Discharg e instructions [...] iron. Foods high in vitamin C include: ?[place] fruits, such as checo, oranges, and grapefruits. [...] iron supplement is right for you. Take vitv-mns-xucaqiq and prescription medicines only as told by your health care provider. Keep all follow-up visits. Where to find more information Learn more about preventing iron deficiency from: National Heart, Lung, and Blood [place]: www.nhlbi.nih.gov [place] [employer] Hemat[employer]: www.hematology.org Contact a health [...] provider. Document Revised: 11/06/2022 Document Reviewed: 11/06/2022 [employer] Patient Education 2022 [employer] 03/15/2024 10:23:50 Iron-Rich Diet Iron-Rich Diet [...] Meats and other proteins Beef liver. Beef. [place]. Chicken. Oysters. Shrimp. Tuna. Sardines. Chickpeas. Nuts. [...] Black tea. Red wine. Sweets and desserts Sugarloaf. Chocolate. Ice cream. Seasonings and condiments Basil. [...] provider. Document Revised: 09/10/2021 Document Reviewed: 09/10/2021 [employer] Patient Education 2022 [employer]. Follow Up Care 12/15/2023 10:48:25 With:Eloisa PATTEN, Mariah Davison, MED, ONC Address: When: Unknown Comments:Continue observation only for the low plt and low WBC for now. Call if bleeding or infections, fevers.Continue ferrous sulfate lsxw-xil-ieejzdn 325 mg once daily.Return in 4 months with labs prior including CBC with differential CMP, B12, folate and iron studies. [facility] 02-09-2024 Note [id number]#[id number] [facility] 02-06-2024 Evaluation + Plan note Extrac enid from: Title:ANES Post-operative Note - General Author: Jorge Luis Fang Jr., DO Date:02/06/24 Plan Transfer/Discharge: Transfer/Discharge Discharge when meets criteria ( From PACU to Ambulatory Surgery Unit, and To home ). Extracted from: Title:ANES Pre-operative Note - Endo Author:Jorge Luis Rodas Jr., DO Date:02/06/24 Plan [place] [employer] of Anesthesiologists (ASA) physical status classification: Class III. Anesthetic Preoperative Plan: Anesthesia General, and -TIVA. Future Appointments Appointment Date:03/15/2024 10:00:00 AM Scheduled Provider:Eloisa PATTEN, Mariah Davison Location:.ONCOLOGY Appointment Type:ONC Office Visit 30 (FT) Appointment Date:03/29/2024 10:30:00 AM Scheduled Provider:Willian Barrios MD Location:[facility] Appointment Type: Open Appointment Date:08/31/2024 11:00:00 AM Scheduled Provider: Location:[facility] Appointment Type: Medicare Wellness Subsequent Future Scheduled Tests Laboratory* CBC w/ Auto Diff 03/08/24 * CBC w/ Auto Diff 10/01/23 * CBC w/ Auto Diff 07/31/23 * Comprehensive Metabolic Panel 03/08/24 * Ferritin 03/08/24 * Iron Level 03/08/24 * Iron Percent Saturation 03/08/24 * Transferrin 03/08/24 Radiology* MA Mamm Screen w/CAD if perf and 3D Michael 03/17/23 [facility]04-26-2024 Hospital Discharge instructions Patient Education 02/06/2024 11:09:28 Colonoscopy, Care After Surgery Salam (CUSTOM) Colonoscopy Care After Surgery Please read the instructions outlined below and refer to this sheet in the next few weeks. These discharge instructions provide you with general information on caring for yourself [facility]. Your doctor may also give you specific [...] hard liquor (44 mL). General instructions Take gxnr-yin-ywvaybz and prescription medicines only as told by [...] provider. Document Revised: 01/17/2021 Document Reviewed: 01/17/2021 [employer] Patient Education 2022 [employer]. Follow Up Care 10/01/2023 13:21:09 With:Deborah Rashid Address: [address], [address] [phone] Business (1) When:1 to 2 weeks Comments:Call for any problems. [facility]02-08-2024 Hospital Discharge instructions Follow Up Care 11/20/2023 15:36:43 With:Eloisa PATTEN, Mariah Davison, MED, ONC Address: When: Unknown Comments:Labs today including CBC with differential, CMP, iron study B12 folate and copper level.Start ferrous sulfate rvyj-czo-qftsrmf 325 mg once daily.Return in 3 months with labs prior including CBC with differential CMP and iron studies. [facility]12-20-2023 Hospital Discharge instructions Patient Education 10/01/2023 [...] hard liquor (44 mL). General instructions Take loyu-rkf-kgkvckz and prescription medicines only as told by [...] provider. Document Revised: 01/17/2021 Document Reviewed: 01/17/2021 [employer] Patient Education 2022 [employer]. Follow Up Care 07/31/2023 10:11:05 With:Ashlie Mead CNP Address: When:Within 4 Month(s) [facility] 10-19-2023 Hospital Discharge instructions Patient [...] spleen. Follow these instructions at home: Take tnyl-adh-juupcja and prescription medicines only as told by [...] provider. Document Revised: 08/13/2022 Document Reviewed: 09/05/2020 [employer] Patient Education 2022 [employer]. Follow Up Care 07/25/2023 08:45:16 With:Ashlie Mead CNP Address: When:1 month [facility] 10-13-2023 Note [id number] Comment: Electronically Signed By: Lucas Bates DO\.br\Date and Time Signed: 07/25/23 08:33 [id number] [facility]: Result Comment: Electronically Signed By: Lucas Bates DO\.br\Date and Time Signed: 07/24/23 13:28 [id number] Evaluation + Plan note Future Appointments Appointment Date:06/24/2023 09:00:00 AM Scheduled Provider: Location:.[facility] Appointment Type:CT Biopsy (FT) Appointment Date:06/24/2023 09:00:00 AM Scheduled Provider: Location:[facility] Appointment Type:Surgery FT Appointment Date:06/30/2023 11:20:00 AM Scheduled Provider:Willian [facility]: Open Appointment Date:07/10/2023 09:30:00 AM Scheduled Provider: Location:[facility] Appointment Type:Surgery FT Appointment Date:07/22/2023 09:30:00 AM Scheduled Provider: Location:.ONCOLOGY Appointment Type:ONC Office Visit 30 (FT) Appointment Date:09/16/2023 01:00:00 PM Scheduled Provider: [facility] Type: Medicare Wellness Subsequent Appointment Date:09/16/2023 02:20:00 PM Scheduled Provider:Willian Barrios MD Location:[facility] [place] Appointment Type: Open Future Scheduled Tests Laboratory* CBC w/ Auto Diff 07/22/23 Radiology* CT Bone Marrow Biopsy 06/24/23 * MA Mamm Screen w/CAD if perf and 3D Michael 03/17/23 [facility]08-17-2023 NoteCardiology Clinic Note Subjective Misa Santos [...] 1 year (around 05/29/2024). 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 CBCD on return day with me. [facility]07-18-2023 Hospital Discharge instructions Follow Up Care 04/29/2023 10:41:22 With:Mariah Amin Address: [address] [phone] Business (1) When: Unknown Comments:We will obtain [...] the peripheral blood flow cytometry are normal. [facility]07-07-2023 Hospital Discharge instructions Follow Up Care 04/18/2023 13:20:05 With:Mariah Amin Address: [address] [phone] Business (1) When: Unknown Comments:We will check CBC with differential CMP PNH flow, LDH, peripheral blood flow cytometry, B12 level, folate, iron studies, copper, ILANA, rheumatoid factor, and platelet antibodies.Return to office in 2 weeks for results. [facility] Future Appointments Appointment Date:09/16/2023 01:00:00 PM Scheduled Provider: Location:[facility] Appointment Type: Medicare Wellness Subsequent Appointment Date:09/16/2023 02:20:00 PM Scheduled Provider:Willian Barrios MD Location:[facility] Appointment Type: Open Future Scheduled Tests Radiology* MA Mamm Screen w/CAD if perf and 3D Michael 6/5/23 [facility] Future Appointments Appointment Date:05/13/2023 10:00:00 AM Scheduled Provider: Location:.ONCOLOGY Appointment Type:ONC Office Visit 30 (FT) Appointment Date:06/30/2023 11:20:00 AM Scheduled Provider:Willian Barrios MD [facility]:FM Open Appointment Date:09/16/2023 01:00:00 PM Scheduled Provider: Location:[facility] Appointment Type: Medicare Wellness Subsequent Appointment Date:09/16/2023 02:20:00 PM Scheduled Provider:Willian Barrios MD [facility] Type: Open Future Scheduled Tests Radiology* MA Mamm Screen w/CAD if perf and 3D Michael 03/17/23 [facility] Future Appointments Appointment Date:06/17/2023 10:30:00 AM Scheduled Provider: Location:.ONCOLOGY Appointment Type:ONC Office Visit 30 (FT) Appointment Date:06/30/2023 11:20:00 AM Scheduled Provider:Willian Barrios MD [facility] Type: Open Appointment Date:09/16/2023 01:00:00 PM Scheduled Provider: Location:[facility] Appointment Type: Medicare Wellness Subsequent Appointment Date:09/16/2023 02:20:00 PM Scheduled Provider:Willian Barrios MD Location:[facility] Appointment Type: Open Future Scheduled Tests Laboratory* CBC w/ Auto Diff 05/27/23 * CBC w/ Auto Diff 06/10/23 Radiology* MA Mamm Screen w/CAD if perf and 3D Michael 03/17/23 [facility] Future Appointments Appointment Date:06/17/2023 10:30:00 AM Scheduled Provider: Location:.ONCOLOGY Appointment Type:ONC Office Visit 30 (FT) Appointment Date:06/30/2023 11:20:00 AM Scheduled Provider:Willian Barrios MD [facility] Type: Open Appointment Date:09/16/2023 01:00:00 PM Scheduled Provider: Location:[facility] Appointment Type: Medicare Wellness Subsequent Appointment Date:09/16/2023 02:20:00 PM Scheduled Provider:Willian Barrios MD Location:[facility] Appointment Type: Open Diagnostic Tests Pending * Comp panel: Leuk/Lym [id number] 05/13/23 Future Scheduled Tests Laboratory* CBC w/ Auto Diff 05/27/23 * CBC w/ Auto Diff 06/10/23 Radiology* MA Mamm Screen w/CAD if perf and 3D Michael 03/17/23 [facility] Future Appointments Appointment Date:06/17/2023 10:30:00 AM Scheduled Provider: Location:.ONCOLOGY Appointment Type:ONC Office Visit 30 (FT) Appointment Date:06/30/2023 11:20:00 AM Scheduled Provider:Willian Barrios MD Location:[facility] Appointment Type: Open Appointment Date:09/16/2023 01:00:00 PM Scheduled Provider: Location:[facility] Appointment Type: Medicare Wellness Subsequent Appointment Date:09/16/2023 02:20:00 PM Scheduled Provider:Willian Barrios MD Location:[facility] Appointment Type: Open Future Scheduled Tests Laboratory* CBC w/ Auto Diff 06/10/23 Radiology* MA Mamm Screen w/CAD if perf and 3D Michael 03/17/23 [facility] Future Appointments Appointment Date:06/17/2023 10:30:00 AM Scheduled Provider: Location:.ONCOLOGY Appointment Type:ONC Office Visit 30 (FT) Appointment Date:06/30/2023 11:20:00 AM Scheduled Provider:Willian Barrios MD Location:[facility] Appointment Type: Open Appointment Date:07/10/2023 09:45:00 AM Scheduled Provider: Location:[facility] Appointment Type:Surgery FT Appointment Date:09/16/2023 01:00:00 PM Scheduled Provider: Location:[facility] Appointment Type: Medicare Wellness Subsequent Appointment Date:09/16/2023 02:20:00 PM Scheduled Provider:Willian Barrios MD Location:[facility] Appointment Type: Open Future Scheduled Tests Laboratory* CBC w/ Auto Diff 06/10/23 Radiology* MA Mamm Screen w/CAD if perf and 3D Michael 03/17/23 [facility] Evaluation + Plan note Future Appointments Appointment Date:06/17/2023 10:30:00 AM Scheduled Provider: Location:.ONCOLOGY Appointment Type:ONC Office Visit 30 (FT) Appointment Date:06/30/2023 11:20:00 AM Scheduled Provider:Willian Barrios MD Location:[facility] Appointment Type:FM Open Appointment Date:07/10/2023 09:30:00 AM Scheduled Provider: Location:[facility] Appointment Type:Surgery FT Appointment Date:09/16/2023 01:00:00 PM Scheduled Provider: Location:[facility] Appointment Type: Medicare Wellness Subsequent Appointment Date:09/16/2023 02:20:00 PM Scheduled Provider:Willian Barrios MD [facility] Type: Open Future Scheduled Tests Radiology* MA Mamm Screen w/CAD if perf and 3D Michael [facility] Appointment Date:06/30/2023 11:20:00 AM Scheduled Provider:Willian Barrios MD Location:[facility] Appointment Type:FM Open Appointment Date:07/22/2023 09:30:00 AM Scheduled Provider: Location:.ONCOLOGY Appointment Type:ONC Office Visit 30 (FT) Appointment Date:07/24/2023 10:00:00 AM Scheduled Provider: Location:[facility] Appointment Type:Surgery FT Appointment Date:08/29/2023 11:00:00 AM Scheduled Provider: Location:[facility] Appointment Type: Medicare Wellness Subsequent Appointment Date:09/16/2023 02:20:00 PM Scheduled Provider:Willian Barrios MD [facility] Type: Open Future Scheduled Tests Laboratory* CBC w/ Auto Diff 07/22/23 Radiology* MA Mamm Screen w/CAD if perf and 3D Michael [facility] Future App[facility]ments Appointment Date:07/22/2023 09:30:00 AM Scheduled Provider: Location:.ONCOLOGY Appointment Type:ONC Office Visit 30 (FT) Appointment Date:07/24/2023 10:00:00 AM Scheduled Provider: Location:[facility] Appointment Type:Surgery FT Appointment Date:08/29/2023 11:00:00 AM Scheduled Provider: [facility] App[facility] Type: Medicare Wellness Subsequent Appointment Date:09/16/2023 02:20:00 PM Scheduled Provider:Willian Barrios MD [facility] App[facility] Type: Open Appointment Date:09/29/2023 11:20:00 AM Scheduled Provider:Willian Barrios MD [facility] App[facility] Type: Open Future Scheduled Tests Radiology* MA Mamm Screen w/CAD if perf and 3D Michael [facility]17[facility]23 [facility] Future App[facility]ments Appointment Date:08/29/2023 11:00:00 AM Scheduled Provider: [facility] App[facility] Type: Medicare Wellness Subsequent Appointment Date:09/16/2023 02:20:00 PM Scheduled Provider:Willian Barrios MD [facility] App[facility] Type: Open Appointment Date:09/23/2023 10:00:00 AM Scheduled Provider: Location:.ONCOLOGY Appointment Type:ONC Office Visit 30 (FT) Appointment Date:09/29/2023 11:20:00 AM Scheduled Provider:Willian Barrios MD Location:[facility] Appointment Type: Open Appointment Date:10/01/2023 12:40:00 PM Scheduled Provider:Ashlie Mead CNP [place] Appointment Type:[facility] Follow Up Future Scheduled Tests Laboratory* Hep [...] w/CAD if perf and 3D Michael 03/17/23 [facility] Evaluation + Plan note Future Appointments Appointment Date:09/16/2023 02:20:00 PM Scheduled Provider:Willian Barrios MD Location:[facility] Appointment Type: Open Appointment Date:09/23/2023 10:00:00 AM Scheduled Provider: [facility] Type:ONC Office Visit 30 (FT) Appointment Date:09/29/2023 11:20:00 AM Scheduled Provider:Willian Barrios MD Location:[facility] Appointment Type: Open Appointment Date:10/01/2023 12:40:00 PM Scheduled Provider:Ashlie Mead CNP [place] Appointment Type:[facility] Follow Up Appointment Date:08/31/2024 11:00:00 AM Scheduled Provider: Location:[facility] Appointment Type: Medicare Wellness Subsequent Diagnostic Tests [...] w/CAD if perf and 3D Michael 03[facility]17/23 [facility] Future App[facility]ments Appointment Date:01/15/2024 09:00:00 AM Scheduled Provider: Location:[facility] Appointment Type:Surgery FT Appointment Date:03/29/2024 10:30:00 AM Scheduled Provider:Willian Barrios MD Location:[facility] Appointment Type: Open Appointment Date:08/31/2024 11:00:00 AM Scheduled Provider: Location:[facility] Appointment Type: Medicare Wellness Subsequent Future Scheduled Tests Laboratory* CBC w/ Auto Diff 10/01/23 * CBC w/ Auto Diff 07/31/23 Radiology* MA Mamm Screen w/CAD if perf and 3D Michael 03/17/23 [facility] Evaluation + Plan note Future Appointments Appointment Date:01/15/2024 09:00:00 AM Scheduled Provider: Location:[facility] Appointment Type:Surgery FT Appointment Date:03/15/2024 10:00:00 AM Scheduled Provider:Mariah Amin MD Location:.ONCOLOGY Appointment Type:ONC Office Visit 30 (FT) Appointment Date:03/29/2024 10:30:00 AM Scheduled Provider:Willian Barrios MD Location:[facility] Appointment Type: Open Appointment Date:08/31/2024 11:00:00 AM Scheduled Provider: Location:[facility] Appointment Type:FM Medicare Wellness Subsequent Future Scheduled Tests Laboratory* CBC w/ Auto Diff 03/08/24 * CBC w/ Auto Diff 10/01/23 * CBC w/ Auto Diff 07/31/23 * Comprehensive Metabolic Panel 03/08/24 * Ferritin 03/08/24 * Iron Level 03/08/24 * Iron Percent Saturation 03/08/24 * Transferrin 03/08/24 Radiology* MA Mamm Screen w/CAD if perf and 3D Michael [facility]17[facility]23 [facility] Future App[facility]ments Appointment Date:01/15/2024 09:00:00 AM Scheduled Provider: Location:[facility] Appointment Type:Surgery FT Appointment Date:03/15/2024 10:00:00 AM Scheduled Provider:Mariah Amin MD [facility] App[facility] Type:ONC Office Visit 30 (FT) Appointment Date:03/29/2024 10:30:00 AM Scheduled Provider:Willian Barrios MD Location:[facility] Appointment Type: Open Appointment Date:08/31/2024 11:00:00 AM Scheduled Provider: Location:[facility] Appointment Type:FM Medicare Wellness Subsequent Diagnostic Tests [...] w/CAD if perf and 3D Michael 03[facility]17/23 [facility] Future Appointments Appointment Date:03/15/2024 10:00:00 AM Scheduled Provider:Mariah Amin MD [facility] App[facility] Type:ONC Office Visit 30 (FT) Appointment Date:03/29/2024 10:30:00 AM Scheduled Provider:Willian Barrios MD Location:[facility] Appointment Type: Open Appointment Date:08/31/2024 11:00:00 AM Scheduled Provider: Location:[facility] Appointment Type: Medicare Wellness Subsequent Future Scheduled Tests Laboratory* CBC w/ Auto Diff 03/08/24 * CBC w/ Auto Diff 10/01/23 * CBC w/ Auto Diff 07/31/23 * Comprehensive Metabolic Panel 03/08/24 * Ferritin 03/08/24 * Iron Level 03/08/24 * Iron Percent Saturation 03/08/24 * Transferrin 03/08/24 Radiology* MA Mamm Screen w/CAD if perf and 3D Michael 03/17/23 [facility] Evaluation + Plan note Future Appointments Appointment Date:03/15/2024 10:00:00 AM Scheduled Provider:Mariah Amin MD [facility] App[facility] Type:ONC Office Visit 30 (FT) Appointment Date:03/29/2024 10:30:00 AM Scheduled Provider:Willian Barrios MD Location:[facility] Appointment Type: Open Appointment Date:08/31/2024 11:00:00 AM Scheduled Provider: Location:[facility] Appointment Type: Medicare Wellness Subsequent Future Scheduled Tests Laboratory* CBC w/ Auto Diff 10/01/23 * CBC w/ Auto Diff 07/31/23 Radiology* MA Mamm Screen w/CAD if perf and 3D Michael 03/17/23 [facility] Future Appointments Appointment Date:03/29/2024 10:30:00 AM Scheduled Provider:Willian Barrios MD Location:[facility] Appointment Type: Open Appointment Date:07/13/2024 10:00:00 AM Scheduled Provider:Mariah Amin MD [facility] Appointment Type:ONC Office Visit 30 (FT) Appointment Date:08/31/2024 11:00:00 AM Scheduled Provider: Location:[facility] Appointment Type: Medicare Wellness Subsequent Future Scheduled [...] w/CAD if perf and 3D Michael 03/17/23 [facility] Future Appointments Appointment Date:04/23/2024 12:30:00 PM Scheduled Provider: [facility] Appoint[facility] Type:PUL Methacholine Test (FT) Appointment Date:07/13/2024 10:00:00 AM Scheduled Provider:Eloisa PATTEN, Mariah Davison [facility] Appointment Type:ONC Office Visit 30 (FT) Appointment Date:08/31/2024 09:30:00 AM Scheduled Provider:Willian Barrios MD Location:[facility] Appointment Type: Open Appointment Date:08/31/2024 11:00:00 AM Scheduled Provider: Location:[facility] Appointment Type:FM Medicare Wellness Subsequent Future Scheduled [...] Transferrin 07/06/24 * Vitamin B12 Level 07/06/24 [facility] Narrative No data available for this section [facility] No data available for this section [facility] No data available for this section [facility] Summary Purpose Family History No Family [...] content) DATE CREATED AUTHOR 10/31/2018 [facility] DATE CREATED AUTHOR AUTHOR'S ORGANIZ ATION 09/24/2022 [facility] DATE CREATED AUTHOR AUTHOR'S ORGANIZ ATION 05/30/2023 [facility] DATE CREATED AUTHOR AUTHOR'S ORGANIZ ATION 03/10/2024 [facility] DATE CREATED AUTHOR AUTHOR'S ORGANIZ ATION 04/04/2024 [facility] DATE CREATED AUTHOR AUTHOR'S ORGANIZ ATION 05/23/2024 [facility] Patient Care team informatio n (unrecognized section and content) Personnel Name: FERNY HUDDLESTON MD Address: Address: [address] [place] [address] Personnel Name: Willian Barrios MD Address: Address: [address] [place] [address] Personnel Name: Willian Barrios MD Address: Address: [address] [place] [address] Personnel Name: Willian Barrios MD Address: Address: [address] [place] [address] Personnel Name: Willian Barrios MD Address: Address: [address] Personnel Name: Willian Barrios MD Address: Address: [facility] [place] [address] Personnel Name: Willian Barrios MD Address: Address: [facility] [place] Personnel Name: Willian Barrios MD Address: Address: [facility] [place] Personnel Name: Willian Barrios MD Address: Address: [facility] [place] [address] Personnel Name: Willian Barrios MD Address: Address: [facility] [place] [address] Personnel Name: Willian Barrios MD Address: Address: [facility] [place] [address] Personnel Name: Willian Barrios MD Address: Address: [facility] [place] [address] Personnel Name: Willian Barrios MD Address: Address: [facility] [place] [address] Personnel Name: Willian Barrios MD Address: Address: [facility] [place] [address] Personnel Name: Willian Barrios MD Address: Address: [facility] [place] [address] Personnel Name: Willian Barrios MD Address: Address: [facility] [place] [address] Personnel Name: Willain Barrios MD Address: Address: [facility] [place] [address] Personnel Name: Willian Barrios MD Address: Address: [facility] [place] [address] Personnel Name: Willian Barrios MD Address: Address: [facility] [place] [address] Personnel Name: Willian Barrios MD Address: Address: [facility] [place] [address] FOR RECORDS PERTAINING TO PATIENTS WHO [...] BE BASED ON THE PRIMARY CLINICAL RECORDS. [facility]. provides no warranty or guarantee of the accuracy or completeness of information in this document.
--- NOTE | 2024-05-31 08:34 | PC.NURSE ---
pt recently d/c from hospital with pneumonia. d/c home on prednisone and ceftin on friday. feels like her breathing is better but is concerned for bilat feet swelling (+1 pitting). pulses intact and strong. pt is still wheezing. just took albuterol inhaler at 0800.
[2024-05-31 08:42] LABS: Hematocrit 31.5 % (36.0-48.0); Hemoglobin 10.5 g/dL (12.0-16.0); Mean Corpuscular HGB Conc 33.3 g/dL (29.9-35.2); Mean Corpuscular Hemoglobin 32.8 pg (26.7-34.0); Mean Corpuscular Volume 98.4 fL (81.0-99.0); Mean Platelet Volume 10.4 fL (9.5-13.5); Platelet Count 121 10^3/uL (150-450); Red Cell Distribution Width 12.5 % (11.0-15.0)
--- NOTE | 2024-05-31 08:44 | ECG_ITS ---
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
--- NOTE | 2024-05-31 08:54 | ED_ITS ---
HPI - Extremity Problem General Chief complaint: Extremity Problem, Nontraumatic Stated complaint: SHORTNESS OF BREATH/ BILATERAL LEG SWELLING Time Seen by Provider: 05/31/24 08:22 Source: patient Mode of arrival: Wheelchair Limitations: no limitations History of Present Illness HPI Narrative: The patient diagnosed with pneumonia almost 4 days ago was discharged home almost 2 days ago is coming to the ER, because of bilateral ankle swelling that she noticed over the last 24 hours she mentioned that it mostly got better when she went to sleep, she mentioned that her breathing really getting better. She also mentioned that she is here just to make sure that her pneumonia is gone although her breathing better no chest pain no other complaint no fever no chills Patient mentioned that she read the side effects of the prednisone and mentioned that it is caused some swelling of the leg and that why she is here Related Data Home Medications ?Medication ?Instructions ?Recorded ?Confirmed albuterol sulfate 90 mcg/actuation 2 puff inhalation Q6H PRN 05/27/24 05/27/24 aerosol inhaler shortness of breath or wheezing atorvastatin 40 mg tablet 40 mg PO DAILY 05/27/24 05/27/24 fluticasone propionate 50 2 spray intranasal DAILY 05/27/24 05/27/24 mcg/actuation nasal spray,suspension glipizide 5 mg tablet 5 mg PO DAILY 05/27/24 05/27/24 levothyroxine 75 mcg tablet 75 mcg PO DAILY 05/27/24 05/27/24 losartan 100 1 tab PO DAILY 05/27/24 05/27/24 mg-hydrochlorothiazide 25 mg tablet metoprolol tartrate 25 mg tablet 25 mg PO BID 05/27/24 05/27/24 Previous Rx's ?Medication ?Instructions ?Recorded cefuroxime axetil 500 mg tablet 500 mg PO BID 7 days #14 tabs 05/29/24 prednisone 20 mg tablet 20 mg PO BID #10 tabs 05/29/24 Allergies Allergy/AdvReac Type Severity Reaction Status Date / Time Sulfa (Sulfonamide Allergy Severe Hives Verified 05/31/24 08:15 Antibiotics) Review of Systems ROS Status of ROS 10 or more systems reviewed and unremark able except as noted in history and below [facility] Medical History (Updated 05/31/24 @ 08:56 by Laurita Hoffmann MD) Pancytopenia ?D61.818 - Other pancytopenia (ICD-10) Morbid obesity ?E66.01 - Morbid (severe) obesity due to excess calories (ICD-10) VALERIE (obstructive sleep apnea) ?G47.33 - Obstructive sleep apnea (adult) (pediatric) (ICD-10) CKD stage 3 due to type 2 diabetes mellitus ?E11.22 - Type 2 diabetes mellitus with diabetic chronic kidney disease (ICD- 10) ?N18.30 - Chronic kidney disease, stage 3 unspecified (ICD-10) Moderate protein malnutrition ?E44.0 - Moderate protein-calorie malnutrition (ICD-10) Iron deficiency anemia ?D50.9 - Iron deficiency anemia, unspecified (ICD-10) CKD stage 2 due to type 2 diabetes mellitus ?E11.22 - Type 2 diabetes mellitus with diabetic chronic kidney disease (ICD- 10) ?N18.2 - Chronic kidney disease, stage 2 (mild) (ICD-10) Hypothyroid ?E03.9 - Hypothyroidism, unspecified (ICD-10) Leaky heart valve ?I38 - Endocarditis, valve unspecified (ICD-10) Diabetes ?E11.9 - Type 2 diabetes mellitus without complications (ICD-10) HTN (hypertension) ?I10 - Essential (primary) hypertension (ICD-10) Surgical History (Updated 05/27/24 @ 18:28 by Sweetie Morel RN) H/O: hysterectomy ?Z90.710 - Acquired absence of both cervix and uterus (ICD-10) History of carpal tunnel release ?Z98.890 - Other specified postprocedural states (ICD-10) Previous section ?Z98.891 - History of uterine scar from previous surgery (ICD-10) Family History (Updated 05/27/24 @ 18:30 by Sweetie Morel RN) Mother Family history of cancer Father Family history of diabetes mellitus Grandmother Family history of stroke Social History (Updated 05/27/24 @ 18:30 by Sweetie Morel RN) Within the past year, how often did you have a drink containing alcohol: never Score interpretation: A score less than 3 is consistent with normal alcohol consumption. Smoking status: Never smoker Non-prescribed substance use: denies use Highest level of school completed/degree received: high school graduate Exam Narrative Exam Narrative: Nurses notes and vital signs reviewed and patient is not hypoxic. General: Well-appearing and in no apparent distress. Skin: Warm, dry, no pallor noted. No rash. Head: Normocephalic, atraumatic. Neck: Supple, non-tender. Eye: Pupils are equal, round and EOMI. No scleral icterus. Ears, Nose, Mouth, and Throat: TM are clear, no nasal mucosal hypertrophy. Oral mucosa is moist, no posterior oropharynx erythema, uvula is mid-line Cardiovascular: Regular Rate and Rhythm without murmur, gallop or rub. Respiratory: No accessory muscle use or respiratory distress. Lungs are the patient still have a mild mostly in the left expiratory lung with Chest Wall: no tenderness Back: No midline thoracic or lumbar vertebral tenderness. No CVA tenderness Musculoskeletal: normal ROM, no calf or popliteal tenderness, there is bilateral leg swelling mostly 1+ bilaterally no redness no hotness no signs of infection GI: Abdomen is soft, non-distended. Normal bowel sounds. No masses appreciated. No tenderness to palpation. No rebound, guarding, or rigidity noted. Neurological: A&O x4. No cranial nerve dysfunction observed. No truncal ataxia. Moves all extremities. Sensation intact. Psychiatric: Cooperative and interactive. Normal mood and affect. Constitutional Vital Signs, click to edit/add: Last Vital Signs Temp 97.7 F 05/31/24 08:16 Pulse 60 05/31/24 09:56 Resp 18 05/31/24 09:56 BP 122/86 05/31/24 09:56 Pulse Ox 97 05/31/24 09:56 O2 Del Method Room Air 05/31/24 08:16 Course Vital Signs Vital signs: Vital Signs Temperature 97.7 F 05/31/24 08:16 Pulse Rate 62 05/31/24 08:16 Respiratory Rate 20 05/31/24 08:16 Blood Pressure 124/50 05/31/24 08:16 Pulse Oximetry 96 05/31/24 08:16 Oxygen Delivery Method Room Air 05/31/24 08:16 Temperature 97.7 F 05/31/24 08:16 Pulse Rate 60 05/31/24 09:56 Respiratory Rate 18 05/31/24 09:56 Blood Pressure 122/86 05/31/24 09:56 Pulse Oximetry 97 05/31/24 09:56 Oxygen Delivery Method Room Air 05/31/24 08:16 MDM - Extremity (Nontraumatic) MDM Narrative Medical decision making narrative: The patient EKG showing sinus rhythm with a heart rate of [address] elevation or depression The patient CBC chemistries did not show any acute significant pathology she does have a history of chronic kidney disease Right now the patient will just continue monitoring and continue taking her medications specially that she is already getting better I already explained to her the positive effect of the prednisone although she was worried about the swelling and with her wheezing and the fact that she is getting better she needs to continue treatment till she is done The patient is to follow up with primary care physician in next 2-3 days or to return to the emergency department should any of the signs or symptoms worsen or new symptoms develop. The patient agrees with the following Diagnosis and Treatment plan and the patient will be discharged home. Lab Data Labs: Lab Results 05/31/24 05/31/24 Range/Units 08:30 09:06 WBC 6.0 (4.0-11.0) 10^3/uL RBC 3.20 L (4.20-5.40) 10^6/uL Hgb 10.5 L (12.0-16.0) g/dL Hct 31.5 L (36.0-48.0) % MCV 98.4 (81.0-99.0) fL MCH 32.8 (26.7-34.0) pg MCHC 33.3 (29.9-35.2) g/dL RDW 12.5 (11.0-15.0) % Plt Count 121 L (150-450) 10^3/uL MPV 10.4 (9.5-13.5) fL Seg Neuts % (Manual) 86.0 H (43.0-75.0) Lymphocytes % (Manual) 10.0 L (20.5-60.0) % Monocytes % (Manual) 4.0 (1.7-12.0) % Eosinophils % (Manual) 0.0 L (0.9-7.0) % Basophils % (Manual) 0.0 L (0.2-2.0) % Neutrophils # (Manual) 5.16 (1.4-6.5) 10^3/uL Lymphocytes # (Manual) 0.60 L (1.20-3.80) 10^3/uL Monocytes # (Manual) 0.24 L (0.30-0.80) 10^3/uL Eosinophils # (Manual) 0.00 (0.00-0.70) 10^3/uL Basophils # (Manual) 0.00 (0.00-0.10) 10^3/uL Anisocytosis 1+ Sodium 139 (136-145) mmol/L Potassium 3.4 L (3.5-5.1) mmol/L Chloride 104 (98-107) mmol/L Carbon Dioxide 25.1 (21.0-32.0) mmol/L Anion Gap 13.3 BUN 42.0 H (7.0-18.0) mg/dL Creatinine 1.75 H (0.55-1.02) mg/dL Est GFR ( Amer) 35 L (>=60) Est GFR (Non-Af Amer) 29 L (>=60) BUN/Creatinine Ratio 24.0 Glucose 152 H (74-106) mg/dL Calcium 8.5 (8.5-10.1) mg/dL Total Bilirubin 0.8 (0.2-1.0) mg/dL AST 59 H (15-37) U/L ALT 42 (14-59) U/L Alkaline Phosphatase 64 (46-116) U/L Troponin I High Sens 13.7 (4.0-51.3) pg/mL Total Protein 6.5 (6.4-8.2) g/dL Albumin 3.1 L (3.4-5.0) g/dL Globulin 3.4 g/dL Albumin/Globulin Ratio 0.9 Discharge Plan Discharge Stand Alone Forms: Portal Instructions Chief Complaint: Extremity Problem, Nontraumatic Clinical Impression: Bilateral edema of lower extremity Patient Disposition: Home, Self-Care Time of Disposition Decision: 08:56 Condition: Good Prescriptions / Home Meds: No Action albuterol sulfate 90 mcg/actuation HFA aerosol inhaler 2 puff INHALATION Q6H PRN (Reason: shortness of breath or wheezing) atorvastatin 40 mg tablet 40 mg PO DAILY fluticasone propionate 50 mcg/actuation spray,suspension 2 spray INTRANASAL DAILY glipizide 5 mg tablet 5 mg PO DAILY levothyroxine 75 mcg tablet 75 mcg PO DAILY losartan-hydrochlorothiazide 100-25 mg tablet 1 tab PO DAILY metoprolol tartrate 25 mg tablet 25 mg PO BID prednisone 20 mg tablet 20 mg PO BID Qty: 10 0RF cefuroxime axetil 500 mg tablet 500 mg PO BID 7 Days Qty: 14 0RF Print Language: Malagasy Instructions: Leg Edema (ED) Referrals: KAI JARQUIN [Primary Care Provider] - 1 week
[2024-05-31 09:16] LABS: Monocytes Absolute Manual 0.24 10^3/uL (0.30-0.80); Segmented Neut Absolute Manual 5.16 10^3/uL (1.4-6.5)
[2024-05-31 09:18] LABS: Anisocytosis 1+
[2024-05-31 09:42] LABS: Alanine Aminotransferase 42 U/L (14-59); Albumin Globulin Ratio 0.9; Albumin Level 3.1 g/dL (3.4-5.0); Alkaline Phosphatase 64 U/L (46-116); Anion Gap 13.3; Aspartate Amino Transferase 59 U/L (15-37); Bilirubin Total 0.8 mg/dL (0.2-1.0); Calcium 8.5 mg/dL (8.5-10.1); Carbon Dioxide 25.1 mmol/L (21.0-32.0); Chloride 104 mmol/L (98-107); Estimated GFR (African America 35 (>=60); Estimated GFR (Non-African Ame 29 (>=60); Globulin 3.4 g/dL; Glucose 152 mg/dL (74-106); Potassium 3.4 mmol/L (3.5-5.1); Sodium 139 mmol/L (136-145); Total Protein 6.5 g/dL (6.4-8.2); Troponin I High Sensitivity 13.7 pg/mL (4.0-51.3)
[2024-05-31 09:56] VITALS: BP 122/86; PULSE 60; O2SAT 97
== END 2024-05-31 10:11 | disposition home or self-care (01) ==
PROVIDERS: Emergency Provider Emergency Medicine; PCP Family Medicine
DX: R60.0 Localized edema (principal); Z87.01 Personal history of pneumonia (recurrent)
CPT/HCPCS: 36415; 80053; 84484; 85007; 85027; 93005; 99284

== ENCOUNTER 2024-06-05 11:35 | Inpatient (IN) | payer MEDICARE, SELFPAY ==
[2024-06-05] VITALS (35 sets, daily range): BP systolic 118–142; BP diastolic 65–87; PULSE 57–140; TEMP 36.4–36.6; O2SAT 91–98; BMI 37.8; BMI 52.1
--- NOTE | 2024-06-05 06:00 | ECG_ITS ---
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
--- NOTE | 2024-06-05 11:55 | XR_ITS ---
The [address] [address] Patient Name: CALI SANTOS MRN: [id number] date: 1955 Sex: F Assigned Patient Location: ER Current Patient Location: ER Accession/Order Number: [id number] Exam Date: 06/05/2024 12:03 Report Date: 06/05/2024 13:08 At the request of: AMRY HERNANDEZ Procedure: XR chest 1V EXAM: XR chest 1V HISTORY: sob COMPARISON: 05/27/2024 and earlier TECHNIQUE: AP portable upright chest x-ray FINDINGS: Minor prominent markings right lung base unchanged without new or increasing lung density, consolidation or edema. Cardiac enlargement accentuated by magnification unchanged. No pleural effusion or pneumothorax. XR/XR chest 1V IMPRESSION: Stable chest x-ray without acute appearing abnormality. Prominent markings right lung base most consistent with atelectasis. Electronically authenticated by: RADHA CHAPMAN Date: 06/05/2024 13:08
--- NOTE | 2024-06-05 11:55 | ECG_ITS ---
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
[2024-06-05 12:15] LABS: Basophils Percent Auto 0.2 % (0.2-2.0); Eosinophils Absolute Auto 0.1 10^3/uL (0.0-0.7); Eosinophils Percent Auto 0.6 % (0.9-7.0); Hematocrit 35.9 % (36.0-48.0); Hemoglobin 11.8 g/dL (12.0-16.0); Immature Granulocytes Abs Auto 0.21 10^3/uL (0.00-0.03); Immature Granulocytes Pct Auto 1.8 % (0.0-0.5); Lymphocytes Absolute Auto 1.3 10^3/uL (1.2-3.8); Lymphocytes Percent Auto 10.6 % (20.5-60.0); Mean Corpuscular HGB Conc 32.9 g/dL (29.9-35.2); Mean Corpuscular Hemoglobin 31.8 pg (26.7-34.0); Mean Corpuscular Volume 96.8 fL (81.0-99.0); Mean Platelet Volume 10.3 fL (9.5-13.5); Monocytes Absolute Auto 1.1 10^3/uL (0.3-0.8); Monocytes Percent Auto 9.1 % (1.7-12.0); Neutrophils Absolute Auto 9.3 10^3/uL (1.4-6.5); Neutrophils Percent Auto 77.7 % (43.0-75.0); Platelet Count 126 10^3/uL (150-450); Red Blood Count 3.71 10^6/uL (4.20-5.40); Red Cell Distribution Width 12.4 % (11.0-15.0)
[2024-06-05 12:30] LABS: INR 1.59; Prothrombin Time 16.1 sec (9.0-11.6)
[2024-06-05 12:37] LABS: Alanine Aminotransferase 58 U/L (14-59); Albumin Globulin Ratio 0.9; Albumin Level 3.1 g/dL (3.4-5.0); Alkaline Phosphatase 82 U/L (46-116); Aspartate Amino Transferase 64 U/L (15-37); Bilirubin Total 1.9 mg/dL (0.2-1.0); Calcium 8.7 mg/dL (8.5-10.1); Carbon Dioxide 24.9 mmol/L (21.0-32.0); Chloride 102 mmol/L (98-107); Estimated GFR (African America 40 (>=60); Estimated GFR (Non-African Ame 33 (>=60); Globulin 3.3 g/dL; Glucose 104 mg/dL (74-106); Potassium 3.9 mmol/L (3.5-5.1); Sodium 137 mmol/L (136-145); Total Protein 6.4 g/dL (6.4-8.2); Troponin I High Sensitivity 15.4 pg/mL (4.0-51.3)
--- NOTE | 2024-06-05 12:47 | ED.SOB1 ---
HPI - SOB/Dyspnea General Chief Complaint: Extremity Problem, Nontraumatic Stated Complaint: SHORTNESS OF BREATH/BILATERAL LEG SWELLING Time Seen by Provider: 06/05/24 11:55 Source: patient Mode of arrival: Wheelchair Limitations: no limitations History of Present Illness HPI Narrative: The patient is coming to us after she was admitted to the hospital almost 9 days ago for sepsis management after she was diagnosed with pneumonia, she already presented to 3 days after that just for evaluation of lower extremity edema that is getting worse, right now the edema is associated with abdominal wall edema as well as shortness of breath on exertion No cough that is new and the patient still using her inhaler for shortness of breath no fever no chest pain Related Data Home Medications ?Medication ?Instructions ?Recorded ?Confirmed albuterol sulfate 90 mcg/actuation 2 puff inhalation Q6H PRN 05/27/24 06/05/24 aerosol inhaler shortness of breath or wheezing atorvastatin 40 mg tablet 40 mg PO DAILY 05/27/24 06/05/24 fluticasone propionate 50 2 spray intranasal DAILY 05/27/24 06/05/24 mcg/actuation nasal spray,suspension glipizide 5 mg tablet 5 mg PO DAILY 05/27/24 06/05/24 levothyroxine 75 mcg tablet 75 mcg PO DAILY 05/27/24 06/05/24 losartan 100 1 tab PO DAILY 05/27/24 06/05/24 mg-hydrochlorothiazide 25 mg tablet metoprolol tartrate 25 mg tablet 25 mg PO BID 05/27/24 06/05/24 calcium carbonate 500 mg-vitamin 1 tab PO BID 06/05/24 06/05/24 D3 10 mcg (400 unit) tablet (Calcium 500 With D) Allergies Allergy/AdvReac Type Severity Reaction Status Date / Time Sulfa (Sulfonamide Allergy Severe Hives Verified 05/31/24 08:15 Antibiotics) Review of Systems ROS Status of ROS 10 or more systems reviewed and unremarkable except as noted in history and below [facility] Medical History (Updated 06/05/24 @ 14:35 by Laurita Hoffmann MD) Reactive airway disease with acute exacerbation ?J45.901 - Unspecified asthma with (acute) exacerbation (ICD-10) Thrombocytopenia ?D69.6 - Thrombocytopenia, unspecified (ICD-10) Pneumonia ?J18.9 - Pneumonia, unspecified organism (ICD-10) Pancytopenia ?D61.818 - Other pancytopenia (ICD-10) Morbid obesity ?E66.01 - Morbid (severe) obesity due to excess calories (ICD-10) VALERIE (obstructive sleep apnea) ?G47.33 - Obstructive sleep apnea (adult) (pediatric) (ICD-10) CKD stage 3 due to type 2 diabetes mellitus ?E11.22 - Type 2 diabetes mellitus with diabetic chronic kidney disease (ICD-10) ?N18.30 - Chronic kidney disease, stage 3 unspecified (ICD-10) Moderate protein malnutrition ?E44.0 - Moderate protein-calorie malnutrition (ICD-10) Iron deficiency anemia ?D50.9 - Iron deficiency anemia, unspecified (ICD-10) CKD stage 2 due to type 2 diabetes mellitus ?E11.22 - Type 2 diabetes mellitus with diabetic chronic kidney disease (ICD-10) ?N18.2 - Chronic kidney disease, stage 2 (mild) (ICD-10) Hypothyroid ?E03.9 - Hypothyroidism, unspecified (ICD-10) Leaky heart valve ?I38 - Endocarditis, valve unspecified (ICD-10) Diabetes ?E11.9 - Type 2 diabetes mellitus without complications (ICD-10) HTN (hypertension) ?I10 - Essential (primary) hypertension (ICD-10) Surgical History (Updated 05/27/24 @ 18:28 by Sweetie Mroel RN) H/O: hysterectomy ?Z90.710 - Acquired absence of both cervix and uterus (ICD-10) History of carpal tunnel release ?Z98.890 - Other specified postprocedural states (ICD-10) Previous section ?Z98.891 - History of uterine scar from previous surgery (ICD-10) Family History (Updated 05/27/24 @ 18:30 by Sweetie Morel RN) Mother Family history of cancer Father Family history of diabetes mellitus Grandmother Family history of stroke Social History (Updated 05/27/24 @ 18:30 by Sweetie Morel RN) Within the past year, how often did you have a drink containing alcohol: never Score interpretation: A score less than 3 is consistent with normal alcohol consumption. Smoking status: Never smoker Non-prescribed substance use: denies use Highest level of school completed/degree received: high school graduate Exam Narrative Exam Narrative: Nurses notes and vital signs reviewed and patient is not hypoxic. General: Well-appearing and in no apparent distress. Skin: Warm, dry, no pallor noted. No rash. Head: Normocephalic, atraumatic. Neck: Supple, non-tender. Eye: Pupils are equal, round and EOMI. No scleral icterus. Ears, Nose, Mouth, and Throat: TM are clear, no nasal mucosal hypertrophy. Oral mucosa is moist, no posterior oropharynx erythema, uvula is mid-line Cardiovascular: Regular Rate and Rhythm without murmur, gallop or rub. Respiratory: Bilateral expiratory lung wheezes Lungs are clear to auscultation, no wheezing, rales or rhonchi Chest Wall: no tenderness Back: No midline thoracic or lumbar vertebral tenderness. No CVA tenderness Musculoskeletal: normal ROM, no calf or popliteal tenderness, the patient have 2+ pitting edema to the knee level and she also have anterior abdominal wall edema noted as well that is 1+ GI: Abdomen is soft, non-distended. Normal bowel sounds. No masses appreciated. No tenderness to palpation. No rebound, guarding, or rigidity noted. Neurological: A&O x4. No cranial nerve dysfunction observed. No truncal ataxia. Moves all extremities. Sensation intact. Psychiatric: Cooperative and interactive. Normal mood and affect. Constitutional Vital Signs, click to edit/add: Last Vital Signs Temp 97.8 F 06/05/24 11:46 Pulse 62 06/05/24 14:15 Resp 17 06/05/24 12:30 BP 125/65 06/05/24 14:15 Pulse Ox 97 06/05/24 14:15 O2 Del Method Room Air 06/05/24 11:46 Course Vital Signs Vital signs: Vital Signs Pulse Rate 65 06/05/24 11:44 Respiratory Rate 17 06/05/24 11:44 Pulse Oximetry 97 06/05/24 11:44 Temperature 97.8 F 06/05/24 11:46 Pulse Rate 62 06/05/24 14:15 Respiratory Rate 17 06/05/24 12:30 Blood Pressure 125/65 06/05/24 14:15 Pulse Oximetry 97 06/05/24 14:15 Oxygen Delivery Method Room Air 06/05/24 11:46 MDM - SOB/Dyspnea MDM Narrative Medical decision making narrative: The patient presented to us with a picture of possible acute congestive heart failure her EKG in the ER did not show any acute significant changes of ST elevation or depression it was sinus rhythm EKG was showing sinus rhythm with right around the Blacks block at 61 heart rate The patient BNP is elevated as well as her CBC shows mild leukocytosis chemistry shows no acute pathology except for the chronic kidney disease Right now the patient potassium is normal The patient was started on Lasix 40 mg IV for diuresis for possible acute congestive heart failure she had no recent echo done The patient will be admitted under Dr. Luan hopson for further management and she was started on Lasix 40 mg IV in the ER Lab Data Labs: Lab Results 06/05/24 Range/Units 11:49 WBC 12.0 H (4.0-11.0) 10^3/uL RBC 3.71 L (4.20-5.40) 10^6/uL Hgb 11.8 L (12.0-16.0) g/dL Hct 35.9 L (36.0-48.0) % MCV 96.8 (81.0-99.0) fL MCH 31.8 (26.7-34.0) pg MCHC 32.9 (29.9-35.2) g/dL RDW 12.4 (11.0-15.0) % Plt Count 126 L (150-450) 10^3/uL MPV 10.3 (9.5-13.5) fL Neut % (Auto) 77.7 H (43.0-75.0) % Lymph % (Auto) 10.6 L (20.5-60.0) % Lane % (Auto) 9.1 (1.7-12.0) % Eos % (Auto) 0.6 L (0.9-7.0) % Baso % (Auto) 0.2 (0.2-2.0) % Neut # (Auto) 9.3 H (1.4-6.5) 10^3/uL Lymph # (Auto) 1.3 (1.2-3.8) 10^3/uL Lane # (Auto) 1.1 H (0.3-0.8) 10^3/uL Eos # (Auto) 0.1 (0.0-0.7) 10^3/uL Baso # (Auto) 0.0 (0.0-0.1) 10^3/uL Abs Immat Gran (auto) 0.21 H (0.00-0.03) 10^3/uL Imm/Tot Granulo (auto) 1.8 H (0.0-0.5) % PT 16.1 H (9.0-11.6) sec INR 1.59 Sodium 137 (136-145) mmol/L Potassium 3.9 (3.5-5.1) mmol/L Chloride 102 (98-107) mmol/L Carbon Dioxide 24.9 (21.0-32.0) mmol/L Anion Gap 14.0 BUN 40.0 H (7.0-18.0) mg/dL Creatinine 1.54 H (0.55-1.02) mg/dL Est GFR ( Amer) 40 L (>=60) Est GFR (Non-Af Amer) 33 L (>=60) BUN/Creatinine Ratio 26.0 Glucose 104 (74-106) mg/dL Calcium 8.7 (8.5-10.1) mg/dL Total Bilirubin 1.9 H (0.2-1.0) mg/dL AST 64 H (15-37) U/L ALT 58 (14-59) U/L Alkaline Phosphatase 82 (46-116) U/L Troponin I High Sens 15.4 (4.0-51.3) pg/mL NT-Pro-B Natriuret Pep 585.0 (<=900.0) pg/mL Total Protein 6.4 (6.4-8.2) g/dL Albumin 3.1 L (3.4-5.0) g/dL Globulin 3.3 g/dL Albumin/Globulin Ratio 0.9 Discharge Plan Discharge Chief Complaint: Extremity Problem, Nontraumatic Clinical Impression: Bilateral edema of lower extremity, Acute exacerbation of CHF (congestive heart failure) Patient Disposition: Admitted As Inpatient Time of Disposition Decision: 14:35
[2024-06-05] MEDS: FUROSEMIDE 40 MG/4 ML VIAL IVP (15:20)
--- NOTE | 2024-06-05 15:28 | P.HP_ITS ---
HPI H&P: HPI History of Present Illness Chief complaint: CHF ACUTE Narrative: Patient is a 69 year old female with past medical history of HTN, high cholesterol, non insulin dependent type 2 diabetes, hypothyroidism, who was recently admitted here 2 weeks ago for sepsis secondary to community acquired pneumonia, she was also found to have pancytopenia. Since that time, she has been having increased lower extremity edema and has been seen once in the ER for this on 05/31/24. She returned today with shortness of breath, and persistent edema. She denies any recent fevers or chills, nausea or vomiting or diarrhea. Slight cough but not productive. She sees [facility] cardiology for a leaky Valve , Hematology (Dr. Wilson), and Dr. Barrios is her PCP. She has had the first part of her PFT's done but has not been able to complete the second part due to illness. She has also had to reschedule her ECHO. ER findings with ProBNP 500's, CXR negative for acute process, WBC's 12 But with low platelets, hemoglobin, red blood cells. Cr 1.53, slight elevation of total bilirubin and AST. Patient was given Lasix 40mg IV x 1 in the ER and admitted for further plan of care. Opioid HPI Opioid Management Most Recent Pain and Opioid Data: Last Pain Assessment 06/05/24 16:00 Last ORT Total Score 1 06/05/24 15:51 Last ORT Risk Category Low Risk 06/05/24 15:51 Review of Systems ROS Narrative ROS: a complete review of systems were reviewed with patient and are positive as below or listed in History of Chief Complaint. General: no fever, chills, night sweats Head: no headache, trauma, visual changes, nausea or vomiting Skin: no reported rashes, itching or sores Eyes: no blurriness of vision Ears: no reported hearing loss, vertigo, earache, or tinnitus Throat: no sore throat, hoarseness, swelling of neck, or tongue pain Heart: no chest pain Lungs: shortness of breath and cough GI: no diarrhea or vomiting/nausea Urinary: no urinary urgency, frequency or pain Neuro: no numbness or tingling HEM: no bleeding issues or bruising ENDO: thyroid problems Psych: no anxiety or depression [facility] Medical History (Updated 06/05/24 @ 15:47 by Karla Roland DO) 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 - Aneurysm of the aortic arch, without rupture (ICD-10) Hyperlipidemia associated with type 2 diabetes mellitus ?E11.69 - Type 2 diabetes mellitus with other specified complication (ICD-10) ?E78.5 - Hyperlipidemia, unspecified (ICD-10) Reactive airway disease with acute exacerbation ?J45.901 - Unspecified asthma with (acute) exacerbation (ICD-10) Thrombocytopenia ?D69.6 - Thrombocytopenia, unspecified (ICD-10) Pneumonia ?J18.9 - Pneumonia, unspecified organism (ICD-10) Pancytopenia ?D61.818 - Other pancytopenia (ICD-10) Morbid obesity ?E66.01 - Morbid (severe) obesity due to excess calories (ICD-10) VALERIE (obstructive sleep apnea) ?G47.33 - Obstructive sleep apnea (adult) (pediatric) (ICD-10) CKD stage 3 due to type 2 diabetes mellitus ?E11.22 - Type 2 diabetes mellitus with diabetic chronic kidney disease (ICD- 10) ?N18.30 - Chronic kidney disease, stage 3 unspecified (ICD-10) Moderate protein malnutrition ?E44.0 - Moderate protein-calorie malnutrition (ICD-10) Iron deficiency anemia ?D50.9 - Iron deficiency anemia, unspecified (ICD-10) CKD stage 2 due to type 2 diabetes mellitus ?E11.22 - Type 2 diabetes mellitus with diabetic chronic kidney disease (ICD- 10) ?N18.2 - Chronic kidney disease, stage 2 (mild) (ICD-10) Hypothyroid ?E03.9 - Hypothyroidism, unspecified (ICD-10) Leaky heart valve ?I38 - Endocarditis, valve unspecified (ICD-10) Diabetes ?E11.9 - Type 2 diabetes mellitus without complications (ICD-10) HTN (hypertension) ?I10 - Essential (primary) hypertension (ICD-10) Surgical History H/O: hysterectomy ?Z90.710 - Acquired absence of both cervix and uterus (ICD-10) History of carpal tunnel release ?Z98.890 - Other specified postprocedural states (ICD-10) Previous section ?Z98.891 - History of uterine scar from previous surgery (ICD-10) Family History Mother Family history of cancer Father Family history of diabetes mellitus Grandmother Family history of stroke Social History (Updated 05/27/24 @ 18:30 by Sweetie Morel RN) Within the past year, how often did you have a drink containing alcohol: never Score interpretation: A score less than 3 is consistent with normal alcohol consumption. Smoking status: Never smoker Non-prescribed substance use: denies use Highest level of school completed/degree received: high school graduate Meds Home Medications and Allergies Home Medications ?Medication ?Instructions ?Recorded ?Confirmed ?Type albuterol sulfate 90 mcg/actuation 2 puff inhalation Q6H PRN 05/27/24 06/05/24 History aerosol inhaler shortness of breath or wheezing atorvastatin 40 mg tablet 40 mg PO DAILY 05/27/24 06/05/24 History fluticasone propionate 50 2 spray intranasal DAILY 05/27/24 06/05/24 History mcg/actuation nasal spray,suspension glipizide 5 mg tablet 5 mg PO DAILY 05/27/24 06/05/24 History levothyroxine 75 mcg tablet 75 mcg PO DAILY 05/27/24 06/05/24 History losartan 100 1 tab PO DAILY 05/27/24 06/05/24 History mg-hydrochlorothiazide 25 mg tablet metoprolol tartrate 25 mg tablet 25 mg PO BID 05/27/24 06/05/24 History calcium carbonate 500 mg-vitamin 1 tab PO BID 06/05/24 06/05/24 History D3 10 mcg (400 unit) tablet (Calcium 500 With D) Allergies Allergy/AdvReac Type Severity Reaction Status Date / Time Sulfa (Sulfonamide Allergy Severe Hives Verified 05/31/24 08:15 Antibiotics) Exam Narrative Exam Narrative: General: Patient is alert, and oriented to person, place and time with normal affect, proper hygiene Skin: no visible rashes, or ulcers, multiple ecchymosis over the forearms Head: atraumatic, acephalic Eyes: PERRLA, no nystagmus present, conjunctiva clear, no scleral icterus Ears: normal gross auditory acuity Nose: symmetric, no discharge, no maxillary or frontal sinus tenderness Neck: no masses palpated, normal thyroid, no JVD or audible carotid bruits Heart: Normal rate and rhythm, no murmurs/rubs/gallops Lungs: audible wheezes, no crackles and diminished breath sounds all lung pryor Abdomen: Normal audible bowel sounds, no distension, No palpable masses, no organomegaly, no rebound/guarding/ or rigidity Musculoskeletal: +1 pitting edema bilateral lower extremities Neuro: CN II-X grossly intact Constitutional Vital Signs, click to edit/add: Last Vital Signs Temp 97.8 F 06/05/24 11:46 Pulse 62 06/05/24 14:15 Resp 17 06/05/24 12:30 BP 128/73 06/05/24 15:20 Pulse Ox 97 06/05/24 14:15 O2 Del Method Room Air 06/05/24 11:46 Results Labs Labs: Short CBC 06/05/24 Range/Units 11:49 WBC 12.0 H (4.0-11.0) 10^3/uL Hgb 11.8 L (12.0-16.0) g/dL Hct 35.9 L (36.0-48.0) % Plt Count 126 L (150-450) 10^3/uL BMP 06/05/24 11:49 Sodium 137 Potassium 3.9 Chloride 102 Carbon Dioxide 24.9 BUN 40.0 H Creatinine 1.54 H Glucose 104 Calcium 8.7 Liver Function 06/05/24 Range/Units 11:49 Total Bilirubin 1.9 H (0.2-1.0) mg/dL AST 64 H (15-37) U/L ALT 58 (14-59) U/L Alkaline Phosphatase 82 (46-116) U/L Albumin 3.1 L (3.4-5.0) g/dL Assessment and Plan Assessment and Plan (1) Acute exacerbation of CHF (congestive heart failure): Assessment and Plan: fluid restriction to 1.5L, monitor strict I&O's with daily weights. Monitor proBNP, initially 500, chest X-ray does not show pulmonary edema. Recheck ECHO when available, last was 04/2023, continue Lasix 40mg IV daily Qualifiers: Heart failure type: diastolic Qualified Code(s): I50.33 - Acute on chronic diastolic (congestive) heart failure (2) Bilateral edema of lower extremity: Assessment and Plan: Will continue with lasix 40mg IV daily. monitor electrolytes and renal function. (3) Thrombocytopenia: Assessment and Plan: Patient follows with hematology as outpatient, she is suppose to take daily iron supplement. (4) Morbid obesity: Assessment and Plan: would benefit from SGL2 for weight loss and diabetes (5) VALERIE (obstructive sleep apnea): (6) CKD stage 3 due to type 2 diabetes mellitus: Assessment and Plan: at baseline, monitor with diuresis (7) Hypothyroid: Assessment and Plan: recheck thyroid labs, continue levothyroxine Qualifiers: Hypothyroidism type: unspecified Qualified Code(s): E03.9 - Hypothyroidism, unspecified (8) Diabetes: Assessment and Plan: check ha1c, SSI as needed with accuchecks Qualifiers: Chronic kidney disease stage: stage 3 (moderate) Chronic kidney disease stage 3 subtype: stage 3a (GFR 45-59) Diabetes mellitus complication detail: with chronic kidney disease Diabetes mellitus complication status: with kidney complications Diabetes mellitus ferry terminal agent insulin use: without ferry terminal agent use Diabetes mellitus type: type 2 Qualified Code(s): E11.22 - Type 2 diabetes mellitus with diabetic chronic kidney disease; N18.31 - Chronic kidney disease, stage 3a (9) HTN (hypertension): Assessment and Plan: continue metoprolol and losartan/hctz Qualifiers: Hypertension type: primary hypertension Qualified Code(s): I10 - Essential (primary) hypertension (10) Hyperlipidemia associated with type 2 diabetes mellitus: Assessment and Plan: recheck lipids, continue atorvastatin (11) Aortic arch aneurysm: Assessment and Plan: history of as seen on Echo 04/2023 Qualifiers: Presence of rupture: without rupture Qualified Code(s): I71.22 - Aneurysm of the aortic arch, without rupture Plan Patient is a full code Lovenox for DVT prophylaxis Patient is in observation status and is not expected to cross 2 midnights.
[2024-06-05 15:51] LABS: Magnesium 1.9 mg/dL (1.8-2.4)
--- OUTSIDE RECORDS SUMMARY | 2024-06-05 15:53 | XMS_ITS | CCD ---
Author Organization [facility] Care Team Providers Care Certified Public Accountant Name Role Phone PHYSICIAN, DEFAULT Admitting Unavailable PHYSICIAN, DEFAULT Attending Unavailable SELF, REFERRED Primary Care Unavailable FLAQUITO, DR FERNY Ortiz Primary Care Unavailable REANNA VALDOVINOSA Admitting Unavailable REANNA VALDOVINOSA Attending Unavailable REANNA VALDOVINOSA Consulting Unavailable ARUNA, HOLLY Admitting Unavailable HOLLY VALDOVINOS Attending Unavailable HOLLY VALDOVINOS Consulting Unavailable FLAQUITO, DR FERNY Ortiz Primary Care Unavailable HOLLY VALDOVINOS Attending Unavailable HOLLY VALDOVINOS Consulting Unavailable REANNA VALDOVINOSA Admitting Unavailable HUDDLESTON, DR FERNY Ortiz Primary Care Unavailable HUDDLESTON, DR FERNY Ortiz Admitting Unavailable HUDDLESTON, DR FERNY Ortiz Attending Unavailable HUDDLESTON, DR FERNY Ortiz Consulting Unavailable HUDDLESTON, DR FERNY Ortiz Primary Care Unavailable HUDDLESTON, DR FERNY Ortiz Primary Care Unavailable HUDDLESTON, DR FERNY Ortiz Admitting Unavailable HUDDLESTON, DR FERNY Ortiz Attending Unavailable HUDDLESTON, DR FERNY Ortiz Consulting Unavailable FLAQUITO, DR FERNY Ortiz Admitting Unavailable HUDDLESTON, DR FERNY Ortiz Attending Unavailable HUDDLESTON, DR FERNY Ortiz Consulting Unavailable FLAUQITO, DR FERNY Ortiz Primary Care Unavailable ARUNA, HOLLY Admitting Unavailable HOLLY VALDOVINOS Attending Unavailable HOLLY VALDOVINOS Consulting Unavailable FLAQUITO, DR FERNY Ortiz Primary Care Unavailable FERNY HUDDLESTON Primary Care Physician [phone] Willian Barrios Primary Care Physician DELMAR DOUGLAS Attending Unavailable Lucas Bates Attending Unavailable Lucas [...] Attending Unavailabl e Al-Marrawi, Lennyd Yaser Admitting MD Willian Osullivan Attending Unavailable MD Willian Barrios Attending Unavailable HUMPHREY HUFFMAN Attending Unavailable MD Willian Barrios Admitting Unavailable MD Willian Barrios Attending MD Willian Lino Referring Unavailable Mariah Amin Admitting Mariah Solorio Attending UnavailMD Willian Galicia Admitting Unavailable Allergies Allergy Classification Reported Allergen(s) Allergy Type Date of Onset Reaction(s) Facility metFORMIN (1 source) metFORMIN; Translations: [metformin] Drug Allergy Dizziness (finding), Unknown (qualifier value) [facility] Sulfonamides (antibiotic) (1 source) Sulfonamides (Antibiotic); Translations: [sulfa drugs] Drug Allergy Unknown (qualifier value) [facility] (3 sources) Sulfonamides (Antibiotic); Translations: [SULFA (SULFONAMIDE ANTIBIOTICS)] Drug allergy (disorder) 6 [facility] Repository (4 sources) metFORMIN; Translations: [METFORMIN] Drug Allergy 1 [facility] Repository (19 sources) metFORMIN; Translations: [metformin] Drug Allergy Unknown (qualifier value), Dizziness (finding) [facility] (20 sources) Sulfonamides (Antibiotic); Translations: [sulfa drugs] Drug allergy Unknown (qualifier value) [facility] Medications Current Medications Medication Drug Class(es) Dates Sig (Normalized) Sig (Original) Albuterol (Eqv-ProAir HFA) 90 mcg/inh inhalation aerosol (11 sources) Start: 06-30-2023 take 2 puff(s) by inhalation every six hours Albuterol (Eqv-ProAir HFA) 90 mcg/inh inhalation aerosol 2 puff(s), Inhalation, q6hr, 18 gm, Refill(s) 0, [facility]/pharmacy #[id number], 150, cm, 06/30/23 [...] DAY, # 90 tab(s), Refills(s) 0, Pharmacy: [facility] [id number], 152, cm, 09/17/23 13:20:00 EST, Height/Length Dosing, 11.2, kg, 09/17/23 13:20:00 EST, Weight Dosing Start Date: 09/22/23 Status: Ordered Start: 06-30-2023 take 1 tablet by leela th once daily Lipitor 40 mg Tab 40 mg = 1 tab(s), Oral, Daily, # 90 tab(s), Refills(s) 0, [id number], cm, 06/30/23 11:19:00 EDT, Height/Length Dosing, 112.8, kg, 06/30/23 11:19:00 EDT, Weight Dosing Start Date: 06/30/23 Status: Ordered Beclomethasone Dipropionate 0.08 MG/ACTUAT Metered Dose Inhaler (4 sources) Corticosteroid Start: 01-06-2024 take 2 puff(s) by inhalation twice daily beclomethasone 80 mcg/inh Inh Aer w/Adapt 2 puff(s), Inhalation, BID, 10.6 gm, Refill(s) 1, [id number] 152, cm, 01/02/24 11:02:00 EDT, Height/Length Dosing, 112.3, kg, 01/02/24 11:02:00 EDT, Weight Dosing Start Date: 01/06/24 Status: Ordered Budesonide 0.09 MG/ACTUAT Dry Powder Inhaler (7 sources) Corticosteroid Start: 09-25-2023 budesonide 90 mcg/inh inhalation powder 1 inh, Inhalation, BID, 1 EA, Refill(s) 11, [facility]/pharmacy #[id number], 152, cm, 09/24/23 [...] Corticosteroid Start: 04-12-2024 fluticasone Nasal 0.05 mg/inh Castine See Instructions, 48 mL, Refill(s) 1, INSTILL 2 SPRAYS IN EACH NOSTRIL ONCE A DAY, [facility], 152, cm, 03/29/24 10:40:00 EDT, Height/Length Dosing, 111.8, kg, 03/29/24 10:40:00 EDT, Weight Dosing Start Date: 04/12/24 Status: Ordered Start: 10-16-2023 fluticasone Na robyn 0.05 mg/inh Castine See Instructions, 48 mL, Refill(s) 1, USE 2 SPRAYS IN EACH NOSTRIL ONCE A DAY, [facility], 152, cm, 10/01/23 12:44:00 EST, Height/Length Dosing, 111.6, kg, 10/01/23 12:44:00 EST, Weight Dosing Start Date: 10/16/23 Status: Ordered Start: 09-24-2023 Flonase 0.05 m g/inh [place] 2 spray(s), Nasal, Daily, 16 gram, Refill(s) 0, each nostril, [facility]/pharmacy #[id number], 152, cm, 09/24/23 14:41:00 EST, Height/Length Dosing, 109.8, kg, 09/24/23 14:41:00 EST, Weight Dosing Start Date: 09/24/23 Status: Ordered glipiZIDE 5 mg oral tablet (20 sources) Sulfonylurea Start: 09-29-2023 take 1 tablet by mouth once daily glipiZIDE 5 mg Tab 5 mg = 1 tab(s), Oral, Daily, # 90 tab(s), Refills(s) 3, [id number] 152, cm, 09/29/23 11:20:00 EST, Height/Length Dosing, 111, kg, 09/29/23 11:20:00 EST, Weight Dosing Start Date: 09/29/23 Status: Ordered Start: 04-22-2023 take 1 tablet by leela th once daily glipiZIDE 5 mg Tab 5 mg = 1 tab(s), Oral, Daily, # 90 tab(s), Refills(s) 3, [id number], 150.8, cm, 03/31/23 11:24:00 EDT, Height/Length [...] Daily, # 90 tab(s), Refills(s) 3, Pharmacy: [facility]/pharmacy #[id number], 150.8, cm, 07/24/23 9:39:00 EDT, Height/Length Dosing, 114, kg, 07/24/23 9:39:00 EDT, Weight Dosing Start Date: 07/28/23 Status: Ordered Start: 06-09-2023 take 1 tablet by leela th once daily levothyroxine 75 mcg (0.075 mg) Tab 75 mcg = 1 tab(s), Oral, Daily, # 90 tab(s), Refills(s) 0, Pharmacy: [facility]/pharmacy #[id number], 150.8, cm, 06/04/23 [...] day(s), # 120 tab(s), Refills(s) 0, Pharmacy: [facility]/pharmacy #[id number], 152, cm, 03/29/24 10:40:00 EDT, Height/Length Dosing, 111.8, kg, 03/29/24 10:40:00 EDT, Weight Dosing Start Date: 03/30/24 Stop Date: 05/29/24 Status: Ordered Start: 02-07-2023 take 1 tablet by leela twice daily Metoprolol tartrate 25 mg Tab 25 mg = 1 tab(s), Oral, BID, Refills(s) 0, High blood pressure Start Date: 02/07/23 Status: Ordered Oystercal-D oral tablet (7 sources) Start: 11-24-2023 Oystercal-D or al tablet 1 tab(s), Oral, BID, 100 tab(s), Refill(s) 2, [facility]/pharmacy #[id number], 152, cm, 10/01/23 12:44:00 EST, Height/Length Dosing, 111.6, kg, 10/01/23 12:44:00 EST, Weight Dosing Start Date: 11/24/23 Status: Ordered polyethylene glycol 3350 [id number] mg / potassium chloride 1480 mg / sodium bicarbonate 5720 mg / sodium chloride 33770 mg powder for oral solution (8 sources) Osmotic Laxative Start: 10-01-2023 NuLYTELY Eliz ry oral powder for reconstitution See Instructions, 1 EA, Refill(s) 0, Prior to colonsocopy., [facility]/pharmacy #[id number], 152, cm, 10/01/23 12:44:00 EST, Height/Length Dosing, 111.6, kg, 10/01/23 12:44:00 EST, Weight Dosing Start Date: 10/01/23 Status: Ordered Start: 06-04-2023 Ya ortiz oral powder for reconstitution See Instructions, 1 EA, Refill(s) 0, Oral, [facility]/pharmacy #[id number], 150.8, cm, 06/04/23 [...] TAKE 1 TABLET BY MOUTH EVERY DAY, [facility] STORE [facility], 152, cm, 03/29/24 10:40:00 EDT, Height/Length Dosing, 111.8, kg, 03/29/24 10:40:00 EDT, Weight Dosing Start Date: 04/12/24 Status: Ordered Start: 07-28-2023 hydrochlorothi azide-losartan 25 mg-100 mg Tab 1 tab(s), Oral, Daily, 90 tab(s), Refill(s) 1, [facility]/pharmacy #[id number], 150.8, cm, 07/24/23 [...] puff(s), Inhalation, BID, 1 EA, Refill(s) 0, [facility]/pharmacy #[id number], 152, cm, 09/24/23 [...] (20 sources) Hypothyroidism, unspecified; Translations: [Hypothyroidism] Onset: 09-23-20 22 02-07-2023 Chronic Unclassified (20 sources) Patient encounter status 03-17-2023 Viral infection (7 sources) Disease caused by 2019-nCoV 09-17-2023 Past or Other Problems Problem Classification Problem Date Documented Da te Episodic/Chronic Other and unspecified benign neoplasm (9 sources) Polyp of colon Onset: 07-24-2023 07-30-2023 Episodic Results Test Name Value Interpretation Reference Range Facil [facility] 05-31-20 [facility] Case Information Case Priority: None Programs: -- Referral Source: Nursing Educator Referral Reason: Care coordination Case Type: Transition Care Management Risk Score: -- Case Status: New (May 31, 2024) Date Assigned: May 31, 2024 Assigned By: Willie Walker Date Enrolled: -- Assigned Primary Personnel: Willie Walker Assigned Secondary [...] - Total abdominal hysterectomy and bilateral salpingo-oophorectomy. Home Medications Albuterol (Eqv-ProAir HFA) 90 mcg/inh inhalation aerosol, 2 puff(s), Inhalation, q6hr aspirin 81 mg oral capsule, 81 mg= 1 cap(s), Oral, Daily atorvastatin 40 mg Tab, See Instructions, 4 refills calcium (as carbonate)-vitamin D 500 mg-400 intl units oral tablet, See Instructions calcium (as carbonate)-vitamin D 500 mg-400 intl units oral tablet, See Instructions ferrous sulfate 325 mg oral enteric coated tablet, 325 mg= 1 tab(s), Oral, Daily fluticasone Nasal 0.05 mg/inh Castine, See Instructions glipiZIDE 5 mg Tab, 5 [...] Misc DME Prescription, See Instructions, 3 refills Allergies metFORMIN (Nausea, Dizziness, Unknown) sulfa drugs (Hives, Unknown) Social History Alcohol Household alcohol concerns: No., 08/29/2023 Substance Abuse - Denies Substance Abuse, 03/15/2024 Tobacco Never (less than 100 in lifetime) Tobacco Use:. Never Smokeless Tobacco Use:. Cigarettes, Household tobacco concerns: No., 05/21/2024 Family History Diabetes mellitus type 2: Father. Heart disease: Mother and Father. Hypertension: Father. Metastatic cancer: Mother. Screenings and Assessments No screenings and assessments have been documented. Goals and Interventions Care Plan Progress Note Admit Date: 05/27/24 [facility] Date of Discharge: 05/29/24 Follow-up appointment scheduled? yes, PCP TCM f/u 06/08/24 at 1500 Did you understand your discharge instructions? yes Are you able to follow them? yes Did you receive new medications? yes, prednisone 20 mg BID x 5 days, cefuroxime 500 mg BID x 7 days Have you filled the Rx's? yes Are you taking them as prescribed? yes Are you having difficulty eating or swallowing your pills? no Are you having any stomach upset, diarrhea or constipation? no How are you sleeping? fine Are you having any pain? no, none Do you have everything you need at home to care for yourself? yes Do you have Home Health? no Initial Transitional Care Management Program call. Readmission risk not available. Reviewed d/c summary and dx of: sepsis, pneumonia, acute respiratory failure, reactive airway disease with acute exacerbation, dyspnea, lactic acidosis, pancytopenia, DM, HTN, hypothyroid, CKD III, VALERIE. Medications reconciled with patient list, EHR, and d/c summary. Reviewed the purpose and side effects of new medications with patient. Patient states she went to [facility] ER this am due to her feet being swollen. Patient notes no changes were made. She was instructed to keep legs elevated. Patient states when she woke up this morning she did feel better than she had the day prior. Patient denies fever. She does report that chills come and go. Patient notes she only has a difficult time breathing when it is time for her medicine. Patient reports she is doing incentive spirometry Q hr., praise given and encouraged to continue. Patient has not checked BP since d/c. Reports BS have been in the 'lower 200's.' Yesterday she notes BS was 300. Patient notes she is eating normal. Good hydration discussed. Patient denies any urinary issues. Patient denies any bowel issues, notes last BM this am, normal. Patient notes some natural weight gain. No change in sleep pattern. CN scheduled TCM f/u with PCP, 06/08/24 at 1500. Patient denies any further questions or concerns. Request refills for levothyroxine (proposal sent to PCP). explained TCM program and gave CN contact number. Communication Events Date: May 31, 2024 Method: Phone call Type: Inbound Duration (min): 19 Outcome: Case dis (more content not included)... Normal [facility] Noteon 05-21-2024 Family [...] 11:23:00 EDT, Weight Dosing Rapid COVID POC [id number] Follow-up No qualifying data available Patient Education [...] tab(s), Oral, Daily fluticasone Nasal 0.05 mg/inh Castine, See Instructions glipiZIDE 5 mg Tab, 5 [...] concerns: No., 08/29/2023 (more content not included)... Normal [facility] Comment on above: Result Comment: Elec tronically [...] lung volumes, and diffusion capacity. READ BY: Adrian Vilchis M.D. ca Dictated: 04/18/2024 [id number] Transcribed: 04/20/2024 cc:Willian Barrios M.D. Normal [facility] Comment on above: Result Comment: Elec tronically Signed By: Deng PATTEN, Adrian Dyer\.br\Date and Time Signed: 04/21/24 09:10 EDT Dexa Scanson 03-31-2024 Dexa Scans [id number]#1.00TIFF Normal [facility] Noteon 03-29-2024 Family Medicine Office/Clinic Note Normal [facility] Comment on above: Result Comment: Elec tronically Signed By: Willian Barrios MD\.br\Date and Time Signed: 03/29/24 12:57 EDT Patient Educationon 03-29-20 24 Patient Education Normal [facility] Ambulatory Visit Summaryon 0 03-15-2024 Ambulatory Visit Summary Normal [address] [place] [address]- \.br\ Medications\.br \ What How Much When [...] fluticasone nasal (fluticasone Nasal 0.05 mg/ inh Castine) See instructions USE 2 SPRAYS IN EACH [...] high in vitamin C include:\.br\ ? \.br\ [place] fruits, such as checo, oranges, and grapefruits.\.b r\ ? \.br\ Berries.\.br\ ? \.br\ Felix peppers.\.br\ ? \.br\ Tomatoes.\.br\ ? \.br\ Broccoli.\.br\ [...] is right for you.\.br\ ? \.br\ Take tgpc-jom-svkabn r and prescription medicines only as told by your health care provider.\.br\ ? \.br\ Keep all follow-up visits.\.br\ Where to find more information\.br \ Learn more about preventing iron deficiency from:\.br\ ? \.br\ National [employer], [employer] [place]: www.nhlbi.nih.g ov\.br\ ? \.br\ [place] [employer]: www.hematology. org\.br\ Contact a health care provider if:\.br\ ? \.br\ You develop symptoms of iron deficiency, including:\.br\ ? \.br\ Fatigue.\.br\ ? \.br\ Headache.\.br\ ? \.br\ Pale skin, lips, and nail beds.\.br\ ? \.br\ Poor appetite.\.br\ ? \.br\ Weakness.\.br\ Summary\.br\ ? \.br\ Iron deficiency anemia is a condition in which the [facility] Consent for Treatmenton Consent for Treatment [id number]#1.00TIFF Normal [facility] ED Pat Eduon 03-15-2024 ED Pat Edu Normal [facility] ED Pat Edu Normal [facility] Oncology Progress Noteon Oncology Progress Note Normal [facility] CBC w/ Auto Diffon 4 Basophils/100 WBC (Bld) 1.0 % Normal 0.0-2.0 [facility] Comment on above: Performed By: #### 2 [id number] #### [facility] [address] [place] [address] Basophils/Leukocyt es Auto (Bld) [Pure # fraction] 0.0 E9/L Normal 0.0-0.2 [facility] Comment on above: Performed By: #### 2 [id number] #### [facility] [address] [place] [address] Eosinophils (Bld) [#/Vol] 0.1 E9/L Normal 0.0-0.5 [facility] Comment on above: Performed By: #### 2 [id number] #### [facility] [address] [place] [address] Eosinophils/100 WBC (Bld) 2.0 % Normal 0.0-8.0 [facility] Comment on above: Performed By: #### 2 [id number] #### [facility] [address] [place] [address] Erythrocyte distribution width (RBC) [Ratio] 13.5 % Normal 10.9-14.2 [facility] Comment on above: Performed By: #### 2 [id number] #### [facility] [address] [place] [address] Hematocrit (Bld) [Volume fraction] 36.6 % Normal 34.0-46.0 [facility] Comment on above: Performed By: #### 2 857776 #### [facility] [address] [place] [address] Hemoglobin (Bld) [Mass/Vol] 12.3 g/dL Normal 12.0-16.0 [facility] Comment on above: Performed By: #### 2 061263 #### [facility] [address] [place] [address] Lymphocytes (Bld) [#/Vol] 0.6 E9/L Low 1.0-4.0 [facility] Comment on above: Performed By: #### 2 907498 #### [facility] [address] [place] [address] Lymphocytes/100 WBC (Bld) 21.0 % Normal 14.0-50.0 [facility] Comment on above: Performed By: #### 2 326888 #### [facility] [address] [place] [address] MCH (RBC) [Entitic mass] 32.6 pg Normal 27.0-34.0 [facility] Comment on above: Performed By: #### 2 404773 #### [facility] [address] [place] [address] MCHC (RBC) [Mass/Vol] 33.6 g/dL Normal 31.4-36.0 [facility] Comment on above: Performed By: #### 2 410520 #### [facility] [address] [place] [address] MCV (RBC) [Entitic vol] 97.0 fL Normal 80.0-100.0 [facility] Comment on above: Performed By: #### 2 357959 #### [facility] [address] [place] [address] Monocytes (Bld) [#/Vol] 0.3 E9/L Normal 0.2-1.0 [facility] Comment on above: Performed By: #### 2 811238 #### [facility] [address] [place] [address] Neutrophils (Bld) [#/Vol] 2.1 E9/L Normal 2.0-7.5 [facility] Comment on above: Performed By: #### 2 338395 #### [facility] [address] [place] [address] Neutrophils/100 WBC (Bld) 67.2 % Normal 36.0-75.0 [facility] Comment on above: Performed By: #### 2 800187 #### [facility] [address] [place] [address] Platelet 90.0 E9/L Low 150.0-500.0 [facility] Comment on above: Result Comment: Resu lt Verified by Repeat Analysis Peripheral smear review performed. Performed By: #### 2 084992 #### [facility] [address] [place] [address] Platelet mean volume (Bld) [Entitic vol] 8.4 fL Normal 6.4-10.8 [facility] Comment on above: Performed By: #### 2 497963 #### [facility] [address] [place] [address] RBC (Bld) [#/Vol] 3.8 E12/L Low 4.3-5.9 [facility] Comment on above: Performed By: #### 2 954299 #### [facility] [address] [place] [address] WBC corrected for nucl RBC Auto (Bld) [#/Vol] 3.1 E9/L Low 4.0-11.0 [facility] Comment on above: Performed By: #### 2 653153 #### [facility] [address] [place] [address] CHEMISTRYOrdered By: SYSTEM SYSTEM on 03-09-2024 Albumin [...] 03-09-2024 Albumin [Mass/Vol] 3.4 g/dL Normal 3.3-5.0 [facility] Comment on above: Performed By: #### 2 959197 #### [facility] [address] [place] [address] Albumin/Globulin (S) [Mass conc ratio] 1.2 Normal 1.1-2.2 [facility] Comment on above: Performed By: #### 2 472489 #### [facility] [address] [place] [address] ALP [Catalytic activity/Vol] 68 Int._Unit/L Normal 21-98 [facility] Comment on above: Performed By: #### 2 535439 #### [facility] [address] [place] [address] ALT No additional P-5'-P [Catalytic activity/Vol] 21 Int._Unit/L Normal 6-46 [facility] Comment on above: Performed By: #### 2 667942 #### [facility] [address] [place] [address] Anion gap [Moles/Vol] 11 mmol/L Normal 6-16 [facility] Comment on above: Performed By: #### 2 752342 #### [facility] [address] [place] [address] AST [Catalytic activity/Vol] 31 Int._Unit/L Normal 5-43 [facility] Comment on above: Performed By: #### 2 693274 #### [facility] [address] [place] [address] Bilirubin [Mass/Vol] 1.0 mg/dL Normal 0.0-1.1 [facility] Comment on above: Performed By: #### 2 429908 #### [facility] [address] [place] [address] Calcium [Mass/Vol] 8.9 mg/dL Normal 8.9-11.1 [facility] Comment on above: Performed By: #### 2 535636 #### [facility] [address] [place] [address] Chloride [Moles/Vol] 103 mmol/L Normal 101-111 [facility] Comment on above: Performed By: #### 2 253383 #### [facility] [address] [place] [address] CO2 [Moles/Vol] 29 mmol/L Normal 21-31 [facility] Comment on above: Performed By: #### 2 361242 #### [facility] [address] [place] [address] Creatinine [Mass/Vol] 1.4 mg/dL High 0.5-1.3 [facility] Comment on above: Performed By: #### 2 245690 #### [facility] [address] [place] [address] Globulin (S) [Mass/Vol] 2.8 g/dL Normal 1.4-4.0 [facility] Comment on above: Performed By: #### 2 652347 #### [facility] [address] [place] [address] Glucose [Mass/Vol] 272 mg/dL High 55-199 [facility] Comment on above: Performed By: #### 2 213872 #### [facility] [address] [place] [address] Potassium [Moles/Vol] 3.9 mmol/L Normal 3.5-5.3 [facility] Comment on above: Performed By: #### 2 211154 #### [facility] [address] [place] [address] Protein [Mass/Vol] 6.2 g/dL Normal 6.0-7.8 [facility] Comment on above: Performed By: #### 2 531570 #### [facility] [address] [place] [address] Sodium [Moles/Vol] 139 mmol/L Normal 135-145 [facility] Comment on above: Performed By: #### 2 071627 #### [facility] [address] [place] [address] Urea nitrogen [Mass/Vol] 26 mg/dL High 5-21 [facility] Comment on above: Performed By: #### 2 308170 #### [facility] [address] [place] [address] Urea nitrogen/Creatinin e [Mass ratio] 19 No Units Normal 10-20 [facility] Comment on above: Performed By: #### 2 060490 #### [facility] [address] [place] [address] Consent for Treatmenton 02-11 Consent for Treatment [id number]#1.00TIFF Normal [facility] Ferritinon 03-09-2024 Ferritin [Mass/Vol] 36 ng/mL Normal 11-307 [facility] Comment on above: Performed By: #### 2 022914 #### [facility] [address] [place] [address] HEMATOLOGYOrdered By: SYSTEM SYSTEM on 03-09-2024 Basophils/100 [...] 03-09-2024 Iron [Mass/Vol] 87 microgram/dL Normal 35-153 [facility] Comment on above: Performed By: #### 2 382744 #### [facility] [address] [place] [address] Iron Saturationon 03-09-2024 Iron binding capacity [Mass/Vol] 357 microgram/dL Normal 250-400 [facility] Comment on above: Performed By: #### 2 714106 #### [facility] [address] [place] [address] Iron saturation [Mass fraction] 24 % Normal 20-50 [facility] Comment on above: Performed By: #### 2 854582 #### [facility] [address] [place] [address] Transferrinon 03-09-2024 Transferrin [Mass/Vol] 255 mg/dL Normal 200-370 [facility] Comment on above: Performed By: #### 2 052576 #### [facility] [address] [place] [address] eGFRon 03-09-2024 eGFR 40 mL/min/1.73 m2 Low >=59 [facility] Comment on above: Order Comment: Order added by Discern Expert. Performed By: #### 1 [id number] #### [facility] [address] [place] [address] Ambulatory Visit Summaryon 0 03-02-2024 Ambulatory Visit Summary Normal [address] [place] [address]- \.br\ Medications\.br \ What How Much When [...] fluticasone nasal (fluticasone Nasal 0.05 mg/ inh Castine) See instructions USE 2 SPRAYS IN EACH [...] choosing us for your care.\.br\ \.br\ [facility] Gastroenterology Office/Clin ic Noteon 03-02-2024 Gastroenterology Office/Clinic Note Normal [facility] Comment on above: Result Comment: Elec tronically Signed By: Deborah Rashid MD\.br\Date and Time Signed: 03/02/24 13:05 EDT Postoperative Documentson Postoperative Documents [id number] Normal [facility] Reminderson 02-16-2024 Reminders Normal [facility] IntraOperative Documentson 0 02-10-2024 IntraOperative Documents [id number]#1.00TIFF Normal [facility] Consenton 02-09-2024 Consent [id number]#1.00TIFF Normal [facility] Discharge Instructionson Discharge Instructions [id number]#1.00TIFF Normal [facility] Main OR Intraoperative Recor don 02-09-2024 Main OR Intraoperative Record Normal [facility] Consent for Treatmenton 01-12 Consent for Treatment [id number]#1.00TIFF Normal [facility] Discharge Instructionson Discharge Instructions Normal [address] [place] [address]- \.br\ New Follow Up Appointments after Discharge\.br \ Follow Up with Deborah Rashid When: Within 1 to 2 weeks\.br\ Comments:\.br\ Call for any problems.\.br\ Where:\.br\ [facility] Burke Flores, [address]\.br\ [facility] 3\.br\ [place] [address]-\.br\ [phone] Business (1)\.br\ Medications\.br \ What How Much When [...] fluticasone nasal (fluticasone Nasal 0.05 mg/ inh Castine) See instructions USE 2 SPRAYS IN EACH [...] By Mouth 2 times a day\.br\ Unchanged [facility] Prescription (Lancets) See instructions Diabetes To be used once a day to obtain blood sugars Dx: E11.9 \.br\ Unchanged Misc Prescription (Mis DME Prescription) See instructions Diabetes one touch [...] color.\.br\ ? \.br\ Pain in the abdomen.\.br\ [facility] Comment on above: Result Comment: Elec tronically Signed By: Modesta Walsh RN\.br\Date and Time Signed: 02/06/24 11:09 EDT Endoscopic Procedure Report - Otheron 02-06-2024 Endoscopic Procedure Report - Other Normal [facility] Comment on above: Result Comment: Elec tronically Signed By: Deborah Rashid MD\.br\Date and Time Signed: 02/06/24 11:04 EDT Other Comment: Radah landaverde Attachment - attachment storage system not supported [id number] Can be viewed in source systemMissing Attachment - attachment storage system not supported [id number] Can be viewed in source systemMissing Attachment - attachment storage system not supported [id number] Can be viewed in source systemMissing Attachment - attachment storage system not supported [id number] Can be viewed in source systemMissing Attachment - attachment storage system not supported [id number] Can be [facility] Attachment - attachment storage system not supported [id number] Can be viewed in [facility] Attachment - attachment storage system not supported [id number] Can be viewed in [facility] Attachment - attachment storage system not supported [id number] Can be viewed in [facility] Attachment - attachment storage system not supported [id number] Can be viewed in [facility] Attachment - attachment storage system not supported [id number] Can be viewed in [facility] Attachment - attachment storage system not supported [id number] Can be viewed in [facility] Attachment - attachment storage system not supported [phone] Can be viewed in [facility] Attachment - attachment storage system not supported [id number] Can be viewed in [facility] Attachment - attachment storage system not supported [id number] Can be viewed in [facility] Attachment - attachment storage system not supported [phone] Can be viewed in [facility] Attachment - attachment storage system not supported [phone] Can be viewed [facility] Attachment - attachment storage system not supported [phone] Can be viewed in [facility] Attachment - attachment storage system not supported [id number] Can be viewed in [facility] Attachment - attachment storage system not supported [phone] Can be viewed in [facility] Attachment - attachment storage system not supported [phone] Can be viewed in source system Inpatient Patient Summaryon 02-06-2024 Inpatient Patient Summary Normal [facility] Main OR PACU I Recordon 01-12 Main OR PACU I Record Normal [facility] Main OR Preoperative Recordo n 02-06-2024 Main OR Preoperative Record Normal [facility] Monitor Recordon 02-06-2024 Monitor Record [id number]#1.00TIFF Normal [facility] Monitor Record [id number]#1.00TIFF Normal [facility] Outpatient Surgery Discharge Instructionon 02-06-2024 Outpatient Surgery Discharge Instruction [facility] Patient Education - Texton 0 02-06-2024 Patient Education - Text [facility] Progress Note-Physicianon Progress Note-Physician Normal [facility] Comment on above: Result Comment: Elec tronically Signed By: Jorge Luis Fang Jr., DO\.br\Date and Time Signed: 02/06/24 12:10 EDT Progress Note-Physician Normal [facility] Comment on above: Result Comment: Elec tronically Signed By: Jorge Luis Fang Jr., DO\.br\Date and Time Signed: 02/06/24 09:27 EDT Ambulatory Visit Summaryon 0 01-02-2024 Ambulatory Visit Summary Normal [address] [place] [address]- \.br\ Medications\.br \ What How Much When [...] fluticasone nasal (fluticasone Nasal 0.05 mg/ inh Castine) See instructions USE 2 SPRAYS IN EACH [...] for choosing us for your care.\.br\ \.br\ [facility] Consenton 01-02-2024 Consent [id number]#1.00TIFF Normal [facility] Family Medicine Office/Clini c Noteon 01-02-2024 Family Medicine Office/Clinic Note Normal [facility] Comment on above: Result Comment: Elec tronically Signed By: Shalini Starkey\.br\Date and Time Signed: 01/02/24 12:23 EDT Reminderson 12-22-2023 Reminders Normal [facility] Copper Lvlon 12-18-2023 Copper [Mass/Vol] 103 microgram/dL Invalid Interpretation Code 80-158 [facility] Comment on above: Result Comment: This test was developed and its performance characteristicsdetermined by [employer] It has not been cleared or approvedby the Food and Drug Administration.Detection Limit = 5Performed at: [facility] [id number] MD Christiano Kolb Performed By: #### 2 156982, 5617403, 9759269, 94066077, 9818969, 2749940, 6483314, 7574868, 33552434, 5859532 ####[facility] [address] [place] [address] CBC w/ Auto Diffon 4 Basophils/100 WBC (Bld) 1.0 % Normal 0.0-2.0 [facility] Comment on above: Performed By: #### 2 589521, 3967924, 0235861, 39572821, 3143713, 5994767, 2472574, 9575898, 19473508, 5760260 ####[facility] [address] [place] [address] Basophils/Leukocyt es Auto (Bld) [Pure # fraction] 0.0 E9/L Normal 0.0-0.2 [facility] Comment on above: Performed By: #### 2 630421, 3430298, 2792005, 21023783, 4555364, 7099096, 6383406, 4613863, 49798489, 4901523 ####[facility] [address] [place] [address] Eosinophils (Bld) [#/Vol] 0.2 E9/L Normal 0.0-0.5 [facility] Comment on above: Performed By: #### 2 589291, 1785734, 1624950, 38825554, 5645239, 9011981, 8291543, 9906730, 73425727, 6703968 ####[facility] [address] [place] [address] Eosinophils/100 WBC (Bld) 4.1 % Normal 0.0-8.0 [facility] Comment on above: Performed By: #### 2 442979, 4371511, 7329194, 92092446, 9628710, 9714738, 1898971, 3415286, 26817192, 1184091 ####[address] [place] [address] Erythrocyte distribution width (RBC) [Ratio] 13.6 % Normal 10.9-14.2 [facility] Comment on above: Performed By: #### 2 426866, 8862116, 4322879, 05548875, 3040478, 4263596, 0930667, 8043189, 31002212, 5509031 ####[address] [place] [address] Hematocrit (Bld) [Volume fraction] 36.0 % Normal 34.0-46.0 [facility] Comment on above: Performed By: #### 2 216710, 6948110, 8909833, 40779831, 2478520, 9927906, 6766710, 9942412, 90449696, 8648714 ####[address] [place] [address] Hemoglobin (Bld) [Mass/Vol] 11.6 g/dL Low 12.0-16.0 [facility] Comment on above: Performed By: #### 2 873188, 6652460, 3944734, 21749058, 4808922, 8217327, 8528105, 0243148, 86742920, 8802979 ####[address] [place] [address] Lymphocytes (Bld) [#/Vol] 1.0 E9/L Normal 1.0-4.0 [facility] Comment on above: Performed By: #### 2 272169, 8599943, 3728733, 61235589, 2654081, 5402904, 2827663, 4265823, 48859703, 0177692 ####[address] [place] [address] Lymphocytes/100 WBC (Bld) 24.2 % Normal 14.0-50.0 [facility] Comment on above: Performed By: #### 2 893621, 4383133, 5477697, 12268235, 4224388, 1170465, 8727542, 9054517, 26746556, 1947594 ####[address] [address] MCH (RBC) [Entitic mass] 30.4 pg Normal 27.0-34.0 [facility] Comment on above: Performed By: #### 2 736684, 1697523, 9257782, 45239469, 3605320, 2443566, 6257791, 0341231, 48696998, 9022271 ####[address] [address] MCHC (RBC) [Mass/Vol] 32.3 g/dL Normal 31.4-36.0 [facility] Comment on above: Performed By: #### 2 521752, 3789213, 3845917, 70953141, 9950516, 2261375, 4805069, 9367477, 48207854, 3471476 ####[address] [address] MCV (RBC) [Entitic vol] 94.0 fL Normal 80.0-100.0 [facility] Comment on above: Performed By: #### 2 126825, 3460071, 0292569, 27158380, 3962500, 8114096, 0432684, 5428231, 22008263, 7396678 ####[address] [address] Monocytes (Bld) [#/Vol] 0.4 E9/L Normal 0.2-1.0 [facility] Comment on above: Performed By: #### 2 749846, 5555142, 8725080, 02663119, 1409479, 8436270, 5446798, 8296305, 25983581, 6363051 ####[facility] [address] [place] [address] Neutrophils (Bld) [#/Vol] 2.5 E9/L Normal 2.0-7.5 [facility] Comment on above: Performed By: #### 2 783522, 6893898, 2905221, 80138057, 7463164, 0676949, 0146938, 2752275, 51364168, 8941801 ####[address] [address] Neutrophils/100 WBC (Bld) 60.7 % Normal 36.0-75.0 [facility] Comment on above: Performed By: #### 2 463293, 0599869, 7352393, 14942296, 5482206, 2192710, 6488796, 8446973, 23041887, 6030411 ####[address] [address] Platelet 84.0 E9/L Low 150.0-500.0 [facility] Comment on above: Result Comment: Lidia newell with slide review Performed By: #### 2 803533, 5889641, 0418037, 28260827, 5732267, 1645192, 8248896, 3542460, 92130645, 0611868 ####[address] [address] Platelet mean volume (Bld) [Entitic vol] 9.2 fL Normal 6.4-10.8 [facility] Comment on above: Performed By: #### 2 476901, 8628625, 5378405, 18571166, 0796422, 8058846, 6012960, 5653514, 88192801, 1595209 ####[address] [address] RBC (Bld) [#/Vol] 3.8 E12/L Low 4.3-5.9 [facility] Comment on above: Performed By: #### 2 999563, 8155004, 1895200, 17908271, 4887386, 2747219, 6926467, 9764589, 40654046, 8799454 ####[facility] [address] [place] [address] WBC corrected for nucl RBC Auto (Bld) [#/Vol] 4.0 E9/L Normal 4.0-11.0 [facility] Comment on above: Performed By: #### 2 818728, 9488806, 3879338, 44882715, 7529096, 5138394, 1916404, 5510847, 08231409, 1144749 ####[facility] [address] [place] [address] CHEMISTRYOrdered By: SYSTEM SYSTEM on 12-15-2023 Albumin [...] 12-15-2023 Albumin [Mass/Vol] 3.5 g/dL Normal 3.3-5.0 [facility] Comment on above: Performed By: #### 2 460693, 4612201, 6534221, 90324760, 5012863, 5384048, 8116289, 3431076, 41385879, 0997835 ####[address] [place] [address] Albumin/Globulin (S) [Mass conc ratio] 1.3 Normal 1.1-2.2 [facility] Comment on above: Performed By: #### 2 052010, 6879685, 8520051, 02087418, 2045301, 8563050, 5459252, 1856871, 20735558, 0000531 ####[facility] [address] [place] [address] ALP [Catalytic activity/Vol] 81 Int._Unit/L Normal 21-98 [facility] Comment on above: Performed By: #### 2 015777, 5160244, 3643828, 87407929, 7301246, 6684646, 2534183, 9268686, 09618848, 1781295 ####[facility] [address] [place] [address] ALT No additional P-5'-P [Catalytic activity/Vol] 21 Int._Unit/L Normal 6-46 [facility] Comment on above: Performed By: #### 2 770541, 7749404, 5345195, 97979422, 6206723, 8222857, 1404809, 3946822, 19284926, 5881141 ####[facility] [address] [place] [address] Anion gap [Moles/Vol] 12 mmol/L Normal 6-16 [facility] Comment on above: Performed By: #### 2 800558, 8671202, 7544405, 50602821, 4663883, 1053271, 0867773, 8132673, 14728593, 5083224 ####[facility] [address] [place] [address] AST [Catalytic activity/Vol] 36 Int._Unit/L Normal 5-43 [facility] Comment on above: Performed By: #### 2 540356, 4227440, 9619926, 12383416, 5091988, 8858626, 7729357, 6628099, 84522805, 3327634 ####[facility] [address] [place] [address] Bilirubin [Mass/Vol] 1.4 mg/dL High 0.0-1.1 [facility] Comment on above: Performed By: #### 2 721943, 7500960, 7386483, 64146880, 8280663, 3468833, 5873751, 7623266, 28523247, 7062122 ####[facility] [address] [place] [address] Calcium [Mass/Vol] 8.9 mg/dL Normal 8.9-11.1 [facility] Comment on above: Performed By: #### 2 856193, 3556921, 0583798, 94348148, 7076766, 1924817, 1225338, 6338477, 63911780, 8350541 ####[facility] [address] [place] [address] Chloride [Moles/Vol] 103 mmol/L Normal 101-111 [facility] Comment on above: Performed By: #### 2 124555, 6760352, 9495239, 22484808, 6320243, 4706799, 3990815, 2959714, 95735830, 8117848 ####[address] [place] [address] CO2 [Moles/Vol] 25 mmol/L Normal 21-31 [facility] Comment on above: Performed By: #### 2 647105, 0255001, 6762337, 84597826, 4307166, 6198009, 5166142, 3441400, 79230221, 5511853 ####[facility] [address] [place] [address] Creatinine [Mass/Vol] 2.1 mg/dL High 0.5-1.3 [facility] Comment on above: Performed By: #### 2 582165, 9823620, 2683353, 90068761, 5439676, 8322449, 6288209, 8872256, 58956204, 3637649 ####[facility] [address] [place] [address] Globulin (S) [Mass/Vol] 2.7 g/dL Normal 1.4-4.0 [facility] Comment on above: Performed By: #### 2 470902, 7382969, 6904638, 38827182, 5235538, 6969196, 9840718, 3833240, 33062427, 6123090 ####[address] [place] [address] Glucose [Mass/Vol] 167 mg/dL Normal 55-199 [facility] Comment on above: Performed By: #### 2 296705, 6870365, 9168180, 27542662, 7591730, 6748689, 5189129, 2307691, 95635389, 5313016 ####[facility] [address] [place] [address] Potassium [Moles/Vol] 3.5 mmol/L Normal 3.5-5.3 [facility] Comment on above: Performed By: #### 2 747631, 9487498, 0816705, 57429863, 4682943, 7557100, 9710290, 0370809, 64360849, 9669713 ####[address] [place] [address] Protein [Mass/Vol] 6.2 g/dL Normal 6.0-7.8 [facility] Comment on above: Performed By: #### 2 624300, 9779474, 9754029, 16501774, 3454605, 5324283, 8610874, 8417968, 91233919, 0243513 ####[facility] [address] [place] [address] Sodium [Moles/Vol] 136 mmol/L Normal 135-145 [facility] Comment on above: Performed By: #### 2 584044, 3440092, 0694145, 94137705, 1486609, 0033697, 3303158, 7884483, 39674199, 5131999 ####[facility] [address] [place] [address] Urea nitrogen [Mass/Vol] 20 mg/dL Normal 5-21 [facility] Comment on above: Performed By: #### 2 548406, 4780415, 1638983, 19512917, 8662930, 7695839, 1938301, 0675721, 92345785, 3812505 ####[address] [place] [address] Urea nitrogen/Creatinin e [Mass ratio] 10 No Units Normal 10-20 [facility] Comment on above: Performed By: #### 2 668327, 8105506, 6492701, 15187164, 7546921, 0673535, 3909774, 8445948, 14167813, 2453178 ####[facility] [address] [place] [address] Consent for Treatmenton Consent for Treatment [id number]#1.00TIFF Normal [facility] Consent for Treatment [id number]#1.00TIFF Normal [facility] Ferritinon 12-15-2023 Ferritin [Mass/Vol] 19 ng/mL Normal 11-307 [facility] Comment on above: Performed By: #### 2 003907, 3218832, 9630336, 80028456, 5104883, 0773409, 2818724, 6519174, 74871912, 7687023 ####[facility] [address] [place] [address] Folateon 12-15-2023 Folate [Mass/Vol] 14.8 ng/mL Normal >=6.7 [facility] Comment on above: Performed By: #### 2 361647, 6115643, 1126972, 09198149, 2216298, 0213463, 9148978, 0042851, 74295112, 7794890 ####[facility] [address] [place] [address] HEMATOLOGYOrdered By: SYSTEM SYSTEM on 12-15-2023 Basophils/100 [...] Heme Comment on above: Result Comment: Lidia fied with slide review Platelet mean volume (Bld) [Entitic vol] 9.2 fL Normal 6.4 - 10.8 fL Remisol Heme RBC (Bld) [#/Vol] 3.8 E12/L Low 4.3 - 5.9 E12/L Re misol Heme WBC corrected for nucl RBC Auto (Bld) [#/Vol] 4.0 E9/L Normal 4.0 - 11.0 E9/L Remisol Heme Ironon 12-15-2023 Iron [Mass/Vol] 144 microgram/dL Normal 35-153 [facility] Comment on above: Performed By: #### 2 645229, 6052775, 2297818, 38024060, 6742153, 2821779, 5114379, 4148657, 25303473, 8513324 ####[facility] [address] [place] [address] Iron Saturationon 12-15-2023 Iron binding capacity [Mass/Vol] 427 microgram/dL High 250-400 [facility] Comment on above: Performed By: #### 2 347273, 8087166, 2012829, 57906448, 7635656, 5743349, 4894150, 5385014, 07919813, 9693468 ####[facility] [address] [place] [address] Iron saturation [Mass fraction] 34 % Normal 20-50 [facility] Comment on above: Performed By: #### 2 051222, 2117518, 7417444, 13883215, 9207315, 0589457, 2785390, 4113018, 37153544, 6521238 ####[facility] [address] [place] [address] Oncology Progress Noteon Oncology Progress Note Normal [facility] Transferrinon 12-15-2023 Transferrin [Mass/Vol] 305 mg/dL Normal 200-370 [facility] Comment on above: Performed By: #### 2 718037, 9156309, 7182413, 21128421, 4068210, 6593512, 1628663, 7571804, 86513620, 0170171 ####[facility] [address] [place] [address] Vit B12on 12-15-2023 Cobalamin (Vitamin B12) [Mass/Vol] 480 pg/mL Normal 50-1500 [facility] Comment on above: Performed By: #### 2 015340, 0757610, 7217818, 37165899, 8427637, 7896970, 3296626, 7752468, 04109920, 8188668 ####[facility] [address] [place] [address] eGFRon 12-15-2023 eGFR 25 mL/min/1.73 m2 Low >=59 [facility] Comment on above: Order Comment: Order added by Discern Expert. Performed By: #### 2 044505, 8554180, 3893350, 10420159, 7374853, 8920454, 5003338, 9695723, 21295453, 0198622 ####[facility] [address] [place] [address] Consultation Noteon 12-04-19 Consultation Note [id number]#1.00TIFF Normal [facility] Dexa Scanson 11-24-2023 Dexa Scans [id number]#1.00TIFF Normal [facility] Outside Mammographyon 2023 Outside Mammography [id number]#1.00TIFF Normal [facility] Consent for Procedure/Surger yon 10-03-2023 Consent for Procedure/Surgery [id number]#1.00TIFF Normal [facility] Ambulatory Visit Summaryon 1 12-02-2022 Ambulatory Visit Summary Normal [address] [place] [address]- \.br\ You Need to Schedule the Following [...] See instructions Prior to colonsocopy. Pickup at [facility]/pharmacy #[id number]\.br\ Unchanged albuterol (Albuterol (Eqv-ProAir HFA) 90 mcg/ [...] Unchanged fluticasone nasal (Flonase 0.05 mg/ inh Lagrange) 2 Sprays Nasal Inhalation Every day each [...] questions or concerns \.br\ Pharmacy Information\.br \ [facility]/pharmacy #[id number]: [address], [place] [phone]\.br\ Allergies\.br\ metFORMIN (Nausea, Dizziness, Unknown)\.br\ sulfa drugs [...] chewing tobacco. If you need help quitti [facility] Gastroenterology Office/Clin ic Noteon 10-01-2023 Gastroenterology Office/Clinic Note Normal [facility] Comment on above: Result Comment: Elec tronically Signed By: Ashlie Mead CNP\.br\Date and Time Signed: 10/01/23 12:54 EST Patient Educationon 10-01-20 Patient Education Normal [facility] Ambulatory Visit Summaryon 1 11-30-2022 Ambulatory Visit Summary Invalid Interpretation Code [address] [place] [address]- \.br\ Someone Will Contact You Regarding These Appointments\.b r\ [facility] External Ambulatory Referral, Podiatry, 09/29/23 11:47:00 EST, Hypertension [facility] Ambulatory Visit Summary Normal [address] [place] [address]- \.br\ Medications\.br \ What How Much When [...] Unchanged fluticasone nasal (Flonase 0.05 mg/ inh Lagrange) 2 Sprays Nasal Inhalation Every day each [...] sugars Dx: E11.9 \.br\ Unchanged Misc Prescription (Mis DME Prescription) See instructions Diabetes one touch [...] for choosing us for your care.\.br\ \.br\ [facility] Medicine Office/Clini c Noteon 09-29-2023 [facility] Medicine Office/Clinic Note Normal [facility] Comment on above: Result Comment: Elec tronically Signed By: Willian Barrios MD\.br\Date and Time Signed: 09/29/23 11:54 EST Patient Educationon 09-29-20 Patient Education Normal [facility] Physician Referralon 023 Physician Referral [id number]#1.00TIFF Normal [facility] RAD - MISCon 09-25-2023 RAD - MISC [id number]#1.00TIFF Normal [facility] Ambulatory Visit Summaryon 11-25-2022 Ambulatory Visit Summary Invalid Interpretation Code [address] [address]- \.br\ Friday 11:00 AM EST \.br\ With:\.br\ Where: [facility] [place] Office/Clini c Noteon 09-24-2023 [facility] Medicine Office/Clinic Note Normal [facility] Comment on above: Result Comment: Elec tronically Signed By: Willian Barrios MD\.br\Date and Time Signed: 09/24/23 14:57 EST Patient Educationon 09-24-20 Patient Education Normal [facility] Ambulatory Visit Summaryon 11-18-2022 Ambulatory Visit Summary Invalid Interpretation Code [address] [address]- \.br\ Friday 11:00 AM EST \.br\ With:\.br\ Where: [facility] [place] [facility] Medicine Office/Clini c Noteon 09-17-2023 [facility] Office/Clinic Note Normal [facility] Comment on above: Result Comment: Elec tronically Signed By: Denis PATTEN, Willian Weiner\.br\Date and Time Signed: 09/17/23 17:34 EST Patient Educationon 09-17-20 23 Patient Education Normal [facility] .Interpretation:on 3 HCV Ab IA Ql Comment Invalid Interpretation Code [facility] Comment on above: Result Comment: Not infected with HCV unless early or acute infection issuspected (which may be delayed in an immunocompromisedindividual), or other evidence exists to indicate HCV infection.Performed at: [facility] [place], [place] [id number] PhD David Alexandra Performed By: #### 2 142321, 1140780, 3864088, 8479420, 9404722, 1192787, 3435075, 72979383, 6428902, 3778621, 7190601874, 4232429, 1440317214, 371771293, 3238813, 1853124, 5775584089, 9647665 ####[address] [place] [address] HCV Antibody RFX to Quant PC Lanre 09-16-2023 HCV IgG IA Ql Non-Reactive Invalid Interpretation Code Non Reactive [facility] Comment on above: Result Comment: Perf ormed at: [facility] [place], [place] [id number] PhD David Alexandra Performed By: #### 2 868303, 6940350, 4263896, 2072091, 7641696, 2694388, 7050971, 82711463, 2163752, 2794595, 8496393409, 2738611, 4630730073, 697785380, 8941157, 1622501, 1010946593, 6547842 ####[facility] [address] [place] [address] HIV Screen 4th Generation wR fxon 09-16-2023 HIV 1+2 Ab+HIV1 p24 Ag IA Ql Non-Reactive Invalid Interpretation Code Non Reactive [facility] Comment on above: Result Comment: HIV NegativeHIV-1/HIV-2 antibodies and HIV-1 p24 antigen were NOT detected.There is no laboratory evidence of HIV infection.Performed at: [address] [id number] PhD David Alexandra Performed By: #### 2 525025, 6350779, 5131946, 0257365, 9287153, 8923903, 5795950, 08909507, 4341119, 0688260, 2155378650, 5228118, 1775016968, 059304562, 3480862, 9207753, 6680153794, 0778092 ####[facility] [address] [place] [address] Hep A IgMon 09-16-2023 HAV IgM IA Ql Negative Invalid Interpretation Code Negative [facility] Comment on above: Result Comment: Perf ormed at: [id number] [place], [place] [id number] PhD David Alexandra Performed By: #### 2 768706, 8468207, 7853153, 9937664, 7764598, 9124013, 6881839, 54211255, 3047716, 8203653, 4755268318, 0245060, 4722310842, 619694946, 4336022, 0910918, 0314949303, 7134793 ####[facility] [address] [place] [address] Hep B Core Ab, IgMon 023 HBV core IgM IA Ql Negative Invalid Interpretation Code Negative [facility] Comment on above: Result Comment: Perf ormed at: [address] [id number] PhD David Alexandra Performed By: #### 2 743575, 1548557, 0664663, 6175507, 2601127, 8946609, 7477350, 33980120, 1225998, 1463233, 2536020721, 0301008, 5705096540, 049787420, 0195809, 9249029, 7198021679, 3852126 ####[facility] [address] [place] [address] Hep Bs Abon 09-16-2023 HBV surface Ab Ql (S) Non-Reactive Invalid Interpretation Code [facility] Comment on above: Result Comment: Non Reactive: Inconsistent with immunity,less than 10 mIU/mLReactive: Consistent with immunity,greater than 9.9 mIU/mLPerformed at: [id number] [place], [place] [id number] PhD David Alexandra Performed By: #### 2 289820, 4278097, 5389919, 9478991, 3111897, 6876107, 1607203, 65256014, 0333345, 9776477, 2014805252, 5579197, 3609233479, 548044229, 1180404, 7654355, 9657413608, 4747658 ####[address] [address] Hep Bs Agon 09-16-2023 HBV surface Ag IA Ql Negative Invalid Interpretation Code Negative [facility] Comment on above: Result Comment: Perf ormed at: [address] [id number] PhD David Alexandra Performed By: #### 2 661304, 1959468, 3040119, 5242621, 4528757, 8348715, 4427649, 60982520, 8531465, 9262072, 4346425784, 6724120, 5257320791, 107221203, 9210431, 6083981, 9158808428, 6504715 ####[address] [address] Auto Diffon 09-15-2023 Basophils/100 WBC (Bld) 1.3 % Normal 0.0-2.0 [facility] Comment on above: Order Comment: Order Added by Discern Expert. Performed By: #### 2 335064, 7387032, 8341677, 8730741, 1904067, 6693654, 1905394, 50476233, 1794057, 9852664, 5008765971, 0083482, 2121428166, 974632158, 7417155, 1899860, 1471680347, 7519684 ####[address] [place] [address] Basophils/Leukocyt es Auto (Bld) [Pure # fraction] 0.0 E9/L Normal 0.0-0.2 [facility] Comment on above: Order Comment: Order Added by Discern Expert. Performed By: #### 2 315055, 8674030, 5051675, 2707543, 8641023, 5665180, 6117931, 01414423, 4574772, 5035416, 6069831476, 7650310, 2469599306, 341338731, 3256505, 6374095, 2295678095, 2673752 ####[address] [place] [address] Eosinophils/100 WBC (Bld) 3.4 % Normal 0.0-8.0 [facility] Comment on above: Order Comment: Order Added by Discern Expert. Performed By: #### 2 447605, 0097399, 7570061, 5550696, 1115180, 4911786, 5010518, 68858612, 6976012, 5275195, 3879703872, 3186455, 3109436611, 307986832, 4383295, 0831130, 6389097495, 0054220 ####[address] [place] [address] Eosinophils/Leukoc ytes Auto (Bld) [Pure # fraction] 0.1 E9/L Normal 0.0-0.5 [facility] Comment on above: Order Comment: Order Added by Discern Expert. Performed By: #### 2 621127, 3975935, 4443064, 6835330, 1070916, 2231971, 2751136, 94893553, 0098703, 5914193, 4499869805, 9516276, 7126367246, 688000319, 1589774, 5186285, 7707825537, 2315672 ####[facility] [address] [place] [address] Lymphocytes/100 WBC (Bld) 25.0 % Normal 14.0-50.0 [facility] Comment on above: Order Comment: Order Added by Discern Expert. Performed By: #### 2 958917, 4831172, 1127040, 0638073, 9017211, 8674207, 2529317, 46017437, 7245907, 2222963, 8878211033, 4654212, 4040269284, 943147395, 0166982, 1473929, 3797266052, 4221381 ####[address] [place] [address] Lymphocytes/Leukoc ytes Auto (Bld) [Pure # fraction] 0.7 E9/L Low 1.0-4.0 [facility] Comment on above: Order Comment: Order Added by Discern Expert. Performed By: #### 2 285226, 0674454, 7651771, 2181031, 7476822, 1520113, 3772738, 30954419, 5259037, 5387596, 4879913829, 0093037, 2471793623, 413262201, 4447533, 0261472, 1913921711, 2934346 ####[address] [address] Monocytes/100 WBC (Bld) 10.1 % Normal 4.0-14.0 [facility] Comment on above: Order Comment: Order Added by Discern Expert. Performed By: #### 2 975034, 4177487, 2316866, 6135434, 0512862, 0294971, 4152314, 21026200, 4334154, 5740217, 7198576476, 5095677, 0861702513, 996095409, 5393429, 2177534, 8188784699, 9093270 ####[facility] [address] [place] [address] Monocytes/Leukocyt es Auto (Bld) [Pure # fraction] 0.3 E9/L Normal 0.2-1.0 [facility] Comment on above: Order Comment: Order Added by Discern Expert. Performed By: #### 2 192621, 8769686, 4796847, 3386399, 6642656, 7720540, 8450344, 70861199, 8547270, 8300367, 7172592179, 5344424, 1618864364, 952032461, 8811385, 0496820, 5687099333, 1013401 ####[facility] [address] [place] [address] Neutrophils/100 WBC (Bld) 60.2 % Normal 36.0-75.0 [facility] Comment on above: Order Comment: Order Added by Discern Expert. Performed By: #### 2 962423, 3381946, 2443401, 9917673, 8193430, 8210750, 5159959, 77381448, 3108391, 1643557, 1503142035, 5347669, 9438852631, 166832585, 5156396, 7299754, 8572772604, 3769873 ####[facility] [address] [place] [address] Neutrophils/Leukoc ytes Auto (Bld) [Pure # fraction] 1.6 E9/L Low 2.0-7.5 [facility] Comment on above: Order Comment: Order Added by Discern Expert. Performed By: #### 2 311879, 6247499, 3252983, 4986159, 3071066, 7763214, 5632564, 14425501, 2196778, 6186551, 9070189333, 1803284, 1988890171, 188878834, 4758899, 6296055, 2586894586, 1228003 ####[facility] [address] [place] [address] CBC w/ Auto Diffon 3 Erythrocyte distribution width (RBC) [Ratio] 13.2 % Normal 10.9-14.2 [facility] Comment on above: Performed By: #### 2 521136, 0384993, 3685312, 0322487, 1420655, 4654573, 1255708, 82966327, 5112535, 3726043, 2544713541, 7648959, 1822186183, 682065866, 8611459, 1735414, 3431527701, 2850366 ####[facility] [address] [place] [address] Hematocrit (Bld) [Volume fraction] 36.5 % Normal 34.0-46.0 [facility] Comment on above: Performed By: #### 2 276011, 3943252, 6251820, 5608319, 4968661, 8407654, 5810755, 48977495, 8907029, 9065963, 3092869595, 5546832, 9151429471, 356531329, 8151392, 9979204, 5246304779, 2723778 ####[address] [place] [address] Hemoglobin (Bld) [Mass/Vol] 12.3 g/dL Normal 12.0-16.0 [facility] Comment on above: Performed By: #### 2 625399, 4869128, 9889956, 3574767, 1555165, 1018213, 0131488, 38648406, 3930322, 8479098, 6011033905, 8679177, 8212448079, 976056111, 1462858, 6468098, 0882875886, 4484632 ####[address] [place] [address] MCH (RBC) [Entitic mass] 31.3 pg Normal 27.0-34.0 [facility] Comment on above: Performed By: #### 2 720940, 1608838, 4194612, 3322649, 6538582, 6418725, 4361359, 27045266, 7342526, 5982398, 3853656979, 3202803, 4644749985, 469922862, 2090603, 4091315, 8712511164, 7380018 ####[facility] [address] [place] [address] MCHC (RBC) [Mass/Vol] 33.7 g/dL Normal 31.4-36.0 [facility] Comment on above: Performed By: #### 2 899499, 0196540, 9498546, 9552309, 6993927, 8304865, 1110606, 30076004, 4960199, 5077540, 6798296324, 2156602, 5640690280, 801080821, 3111303, 1461029, 5253508184, 8556537 ####[facility] [address] [place] [address] MCV (RBC) [Entitic vol] 92.8 fL Normal 80.0-100.0 [facility] Comment on above: Performed By: #### 2 290180, 0049645, 6184132, 5282311, 9395294, 0213157, 8349104, 35944349, 6073002, 0507697, 8574971357, 3100916, 0479206266, 470624503, 0888827, 9295187, 2027486245, 2587343 ####[facility] [address] [place] [address] Platelet mean volume (Bld) [Entitic vol] 8.5 fL Normal 6.4-10.8 [facility] Comment on above: Performed By: #### 2 635720, 5992805, 1081275, 9676418, 8997940, 1764980, 7369610, 83369770, 8816886, 3877569, 4641719856, 8176665, 0434104205, 861743952, 2189943, 0339464, 2365935552, 9440352 ####[address] [place] [address] Platelets (Bld) [#/Vol] 89.0 E9/L Low 150.0-500.0 [facility] Comment on above: Result Comment: Plat elet count verified using smear estimate Performed By: #### 2 889420, 0485988, 4955326, 2438556, 3605444, 0359027, 2642190, 85553892, 2021147, 7821954, 5503153836, 8962788, 8615770781, 372169489, 0066388, 9403358, 5163849906, 2044520 ####[facility] [address] [place] [address] RBC (Bld) [#/Vol] 3.9 E12/L Low 4.3-5.9 [facility] Comment on above: Performed By: #### 2 531743, 4044091, 7163655, 2821776, 0085134, 6879268, 3288492, 46176257, 4646513, 1523956, 1264901495, 1752114, 7964013616, 905713488, 2956793, 3614119, 5181517406, 4744346 ####[facility] [address] [place] [address] WBC corrected for nucl RBC Auto (Bld) [#/Vol] 2.6 E9/L Low 4.0-11.0 [facility] Comment on above: Performed By: #### 2 857402, 8852675, 3476311, 1020136, 5462133, 1750510, 4309126, 92482856, 9639482, 4881805, 0842624361, 1700856, 5472939670, 148441729, 0196400, 3179100, 0328242719, 7123819 ####[facility] [address] [place] [address] CHEMISTRYOrdered By: SYSTEM SYSTEM on 09-15-2023 Albumin [...] [facility] Remisol Urea nitrogen/Creatinin e [Mass ratio] 11 mg/mg Normal 10 - 20 [facility] Remisol CMPon 09-15-2023 Albumin [Mass/Vol] 3.5 g/dL Normal 3.3-5.0 [facility] Comment on above: Performed By: #### 2 680983, 7667193, 6483090, 5562036, 8592048, 7965974, 2071659, 93886832, 2839128, 4082426, 9812958216, 7874104, 0228202874, 191691750, 1018210, 1975492, 7096791182, 1174880 ####[facility] [address] [place] [address] Albumin/Globulin (S) [Mass conc ratio] 1.0 Low 1.1-2.2 [facility] Comment on above: Performed By: #### 2 288438, 0767485, 6203394, 2027314, 1864519, 8688598, 9390635, 99398205, 5065855, 2108714, 8161938956, 3191380, 2902386987, 556017477, 8242481, 9703787, 6389820037, 9400421 ####[facility] [address] [place] [address] ALP [Catalytic activity/Vol] 81 Int._Unit/L Normal 21-98 [facility] Comment on above: Performed By: #### 2 938657, 9308755, 2129041, 0691007, 6886478, 4588542, 7248919, 81005392, 0150516, 6023367, 0951519210, 0385975, 3334823828, 490890921, 4367455, 4601844, 8849834064, 9462535 ####[address] [place] [address] ALT No additional P-5'-P [Catalytic activity/Vol] 23 Int._Unit/L Normal 6-46 [facility] Comment on above: Performed By: #### 2 877304, 2379520, 2928639, 8474135, 2281973, 6900047, 9833923, 99089870, 4154457, 4032950, 4582075039, 9820934, 0113813696, 019683094, 2517163, 7333253, 7161299650, 7611949 ####[address] [place] [address] Anion gap [Moles/Vol] 11 mmol/L Normal 6-16 [facility] Comment on above: Performed By: #### 2 929825, 7099021, 2614344, 7405589, 0691818, 7112078, 1665437, 35179601, 0837843, 2877748, 8974122624, 0491411, 2619486784, 694562057, 8616108, 9016536, 0978544617, 6013418 ####[address] [place] [address] AST [Catalytic activity/Vol] 42 Int._Unit/L Normal 5-43 [facility] Comment on above: Performed By: #### 2 029977, 8725144, 9749722, 9730298, 0306810, 0907046, 8355172, 73601018, 9272798, 7194810, 5050496701, 3335890, 0278358730, 736974017, 5921715, 1418311, 4884142157, 9280735 ####[facility] [address] [place] [address] Bilirubin [Mass/Vol] 1.0 mg/dL Normal 0.0-1.1 [facility] Comment on above: Performed By: #### 2 425830, 4361341, 2065909, 4362994, 6486979, 1871055, 0380096, 78679423, 6396861, 0567655, 1225650611, 7588251, 3015730601, 410065482, 9267184, 7478994, 6108821372, 3108238 ####[facility] [address] [place] [address] Calcium [Mass/Vol] 9.0 mg/dL Normal 8.9-11.1 [facility] Comment on above: Performed By: #### 2 349548, 8594318, 9441863, 4778815, 8619515, 0531161, 6226504, 95099342, 0679987, 3194948, 1916895910, 9420994, 2668280508, 217985112, 7031937, 4817178, 0417881712, 9265774 ####[facility] [address] [place] [address] Chloride [Moles/Vol] 103 mmol/L Normal 101-111 [facility] Comment on above: Performed By: #### 2 503285, 7234783, 5814428, 0835837, 4770517, 1619439, 9154212, 85408662, 5136232, 1070268, 3152861090, 5338427, 1528217385, 893124788, 7231456, 6291591, 5716075785, 6842542 ####[facility] [address] [place] [address] CO2 [Moles/Vol] 24 mmol/L Normal 21-31 [facility] Comment on above: Performed By: #### 2 523467, 2055806, 4390642, 9571116, 6464726, 3368885, 1362633, 80711608, 2192645, 7260387, 5501880298, 3451094, 4212742537, 820279097, 7162247, 7498219, 7738207055, 8832924 ####[facility] [address] [place] [address] Creatinine [Mass/Vol] 1.1 mg/dL Normal 0.5-1.3 [facility] Comment on above: Performed By: #### 2 748068, 6544958, 9364450, 0168763, 2417320, 0412563, 9551284, 01068239, 4255786, 4645702, 0424387252, 6240922, 4422536625, 262522742, 3532469, 2233407, 5479346106, 2967333 ####[facility] [address] [place] [address] Globulin (S) [Mass/Vol] 3.4 g/dL Normal 1.4-4.0 [facility] Comment on above: Performed By: #### 2 186839, 3257947, 8928822, 7584862, 8337409, 7787875, 2115380, 57429254, 3036292, 4914017, 5195583090, 1085114, 5210132563, 421025793, 6539243, 8662408, 5866754626, 7655755 ####[facility] [address] [place] [address] Glucose [Mass/Vol] 307 mg/dL High 55-199 [facility] Comment on above: Result Comment: If t his glucose result represents a fasting glucose, interpretation should refer to the following reference range: 55-99 mg/dL Performed By: #### 2 322978, 0587615, 9156211, 2878849, 8444080, 7628386, 4710436, 58432497, 6862226, 1659868, 2282229489, 1579631, 4882132554, 046469341, 7149578, 4706544, 2773408642, 1441176 ####[facility] [address] [place] [address] Potassium [Moles/Vol] 3.9 mmol/L Normal 3.5-5.3 [facility] Comment on above: Performed By: #### 2 998436, 6086530, 2936616, 5585189, 8694328, 9254182, 9981608, 05309541, 9459225, 0886410, 2802573963, 7087292, 0041645143, 168702550, 7430833, 0390014, 1264769952, 0658399 ####[address] [place] [address] Protein [Mass/Vol] 6.9 g/dL Normal 6.0-7.8 [facility] Comment on above: Performed By: #### 2 768330, 2854436, 1176875, 7274767, 2684795, 0001254, 0135256, 81066194, 6606496, 5534675, 5876159814, 7523989, 2730487583, 122732257, 3866597, 3435788, 5164267739, 6026849 ####[address] [place] [address] Sodium [Moles/Vol] 134 mmol/L Low 135-145 [facility] Comment on above: Performed By: #### 2 338090, 2453814, 7906975, 5361866, 0180398, 8459062, 6937160, 03364650, 6004364, 4710362, 9058134302, 5699127, 5142686598, 757845050, 6010571, 4248353, 0173948289, 8569007 ####[address] [place] [address] Urea nitrogen [Mass/Vol] 12 mg/dL Normal 5-21 [facility] Comment on above: Performed By: #### 2 072512, 5757367, 5279900, 7354972, 3222681, 3451777, 3780742, 07028006, 4311966, 3592403, 1911771003, 9179365, 9948527036, 501621342, 0269970, 2033373, 1831622568, 8165607 ####[facility] [address] [place] [address] Urea nitrogen/Creatinin e [Mass ratio] 11 No Units Normal 10-20 [facility] Comment on above: Performed By: #### 2 663994, 6289915, 6981698, 5182089, 4845024, 8854460, 2843774, 57898328, 2548115, 3815331, 2647997037, 9030761, 6422006541, 255132235, 1768864, 6945640, 8478080193, 3718579 ####[facility] [address] [place] [address] Consent for Treatmenton 0 Consent for Treatment [id number]#1.00TIFF Normal [facility] Ferritinon 09-15-2023 Ferritin [Mass/Vol] 20 ng/mL Normal 11-307 [facility] Comment on above: Result Comment: NORM ALS MEN <30 YRS 16-132 ng/mL MEN >30 YRS 8-338 ng/mL WOMEN (PREMEN) 6-104 ng/mL WOMEN (POSTMEN) 12-210 ng/mL Performed By: #### 2 501406, 1820228, 6285603, 8658337, 6885367, 8722577, 7410242, 95439357, 3142155, 1452318, 3738648871, 3125309, 2444215655, 214612323, 2114975, 5592872, 2090144210, 2720096 ####[facility] [address] [place] [address] Folateon 09-15-2023 Folate [Mass/Vol] 14.7 ng/mL Normal >=6.7 [facility] Comment on above: Performed By: #### 2 553606, 4945908, 2503084, 5777987, 3801181, 7681975, 6784682, 10238966, 4388140, 3080669, 8247370373, 4677997, 5415046664, 096723435, 6433492, 5492902, 8292016472, 1994721 ####[facility] [address] [place] [address] HEMATOLOGYOrdered By: SYSTEM SYSTEM on 09-15-2023 Basophils/100 [...] 13.2 % Normal 10.9 - 14.2 % FT HemeAutoSS Hematocrit (Bld) [Volume fraction] 36.5 % Normal 34.0 - 46.0 % FT [...] 2.6 E9/L Low 4.0 - 11.0 E9/L [facility] HemeAutoSS Ironon 09-15-2023 Iron [Mass/Vol] 73 microgram/dL Normal 35-153 [facility] Comment on above: Performed By: #### 2 028980, 6025224, 2627561, 3057065, 5522777, 5169822, 3315660, 86210521, 0298398, 6784935, 6241700883, 6766277, 5365397492, 272978196, 7291735, 3539981, 6622587570, 3817666 ####[facility] [address] [place] [address] Iron Saturationon 09-15-2023 Iron binding capacity [Mass/Vol] 401 microgram/dL High 250-400 [facility] Comment on above: Performed By: #### 2 017245, 9324891, 3397426, 2378229, 7488155, 2651100, 1644808, 12207109, 2846606, 4914990, 3225585152, 6378271, 6631894858, 109220909, 7993589, 9856087, 1886765993, 8402796 ####[address] [place] [address] Iron saturation [Mass fraction] 18 % Low 20-50 [facility] Comment on above: Performed By: #### 2 674754, 8104475, 4761413, 1454404, 5390188, 1766038, 4386229, 17104944, 8406096, 0455315, 1327262751, 1465529, 9161781615, 143020052, 3828940, 0437376, 4575810069, 3707740 ####[address] [address] LDHon 09-15-2023 LDH [Catalytic activity/Vol] 181 Int._Unit/L Normal 93-218 [facility] Comment on above: Performed By: #### 2 986504, 3007518, 3366741, 3851722, 2816983, 3597524, 8077418, 52032747, 9159226, 2147350, 3353124868, 3350076, 2579164896, 769667203, 1120507, 9324173, 0758025278, 9312399 ####[facility] [address] [place] [address] Transferrinon 09-15-2023 Transferrin [Mass/Vol] 286 mg/dL Normal 200-370 [facility] Comment on above: Performed By: #### 2 718319, 6981379, 7728439, 3820738, 0453527, 3756771, 1066815, 36830114, 0448080, 8466590, 9624092679, 1328384, 4453525646, 158646800, 7422237, 3319511, 5291161524, 6697410 ####[facility] [place] [address] Vit B12on 09-15-2023 Cobalamin (Vitamin B12) [Mass/Vol] 508 pg/mL Normal 50-1500 [facility] Comment on above: Performed By: #### 2 935373, 5550667, 8665499, 1685356, 3514725, 1836738, 6208828, 45361055, 8882755, 6117970, 6878915450, 2359147, 4707054112, 403292196, 4248404, 5239067, 5529247237, 0545342 ####[facility] [address] [place] [address] eGFRon 09-15-2023 GFR/1.73 sq M.predicted among non-blacks MDRD (S/P/Bld) [Vol rate/Area] 54 mL/min/1.73 m2 Low >=59 [facility] Comment on above: Order Comment: Order added by Discern Expert. Result Comment: City Controller annabella kidney disease could be indicated at eGFR's of less than 60 mL/min/1.73m2. Kidney failure is indicated at less than 15 mL/min/1.73m2. Performed By: #### 2 850255, 3161935, 5920250, 8499760, 2550069, 9519110, 6589318, 34698306, 1795449, 3379200, 7455679073, 7139238, 4078656280, 794927277, 3941846, 9353766, 5959492528, 8615050 ####[facility] [address] [place] [address] Family Medicine Office/Clini c Noteon 09-01-2023 Family Medicine Office/Clinic Note Normal [facility] Comment on above: Result Comment: Elec tronically Signed By: Willian Barrios MD.br\Date and Time Signed: 09/01/23 12:57 EST\.br\Electronically Co-Signed By: Willie Walker.br\Date and Time Co-Signed: 08/29/23 12:10 EST Outside [facility] Examon 09-01-2023 Outside Diabetes Eye Exam [id number]#1.00TIFF [facility] Ambulatory Visit Summaryon 1 10-29-2022 Ambulatory Visit Summary Invalid Interpretation Code [address] [place] [address]- \.br\ Friday 12:40 PM EST \.br\ With: Ashlie Mead CNP\.br\ Where: [facility] Ambulatory Visit Summary Invalid Interpretation Code [address] [place] [address]- \.br\ Friday 12:40 PM EST \.br\ With: Ashlie Mead CNP\.br\ Where: [facility] Patient Educationon 08-29-20 Patient Education [facility] Screenson 08-29-2023 Screens [id number]#1.00TIFF [facility] Population [facility] 08-21-20 23 Population Health [facility] Population [facility] 08-14-20 23 Population Health [facility] Population [facility] 08-07-20 23 [facility] Reminderson 08-06-2023 Reminders - From: Ashlie Mead CNP To: Regina Hollingsworth; Sent: 07/31/2023 10:00:12 EDT Show up: 07/31/2023 10:01:00 EDT Subject: Ambulatory Reminder Reminder/Recall Colonoscopy 01/2024. 6 month colon recall 02/03 [facility] Immunization Recordson 08-04 Immunization Records [id number]#1.00TIFF [facility] Ambulatory Visit Summaryon 1 Ambulatory Visit Summary Invalid Interpretation Code [address] [place] [address]- \.br\ Friday 10:00 AM EST \.br\ With:\.br\ Where: [facility]\.br\ Friday 11:20 AM EST \.br\ With: Willian Barrios MD\.br\ Where: [facility] Gastroenterology Office/Clin ic Noteon 07-31-2023 Gastroenterology Office/Clinic Note Normal [facility] Comment on above: Result Comment: Elec tronically Signed By: Ashlie Mead CNP\.br\Date and Time Signed: 07/31/23 10:07 EDT Patient Educationon 07-31-20 Patient Education Normal [facility] Ambulatory Visit Summaryon Ambulatory Visit Summary Invalid Interpretation Code [address] [place] [address]- \.br\ Friday 2:20 PM EST \.br\ With: Willian Barrios MD\.br\ Where: [facility] Family Medicine Office/Clini c Noteon 07-30-2023 Family Medicine Office/Clinic Note Normal [facility] Comment on above: Result Comment: Elec tronically Signed By: Willian Barrios MD\.br\Date and Time Signed: 07/30/23 08:00 EDT IntraOperative Documentson 1 IntraOperative Documents [id number]#1.00TIFF Normal [facility] Patient Educationon 07-30-20 Patient Education Normal [facility] Population Healthon 07-29-20 Population Health Normal [facility] Discharge Instructionson Discharge Instructions [id number]#1.00TIFF Normal [facility] Main OR Intraoperative Recor don 07-28-2023 Main OR Intraoperative Record Normal [facility] Auto Diffon 07-25-2023 Basophils/100 WBC (Bld) 0.9 % Normal 0.0-2.0 [facility] Comment on above: Order Comment: Order Added by Discern Expert. Performed By: #### 2 424795, 0568573 ####[address] [address] Basophils/Leukocyt es Auto (Bld) [Pure # fraction] 0.0 E9/L Normal 0.0-0.2 [facility] Comment on above: Order Comment: Order Added by Discern Expert. Performed By: #### 2 [id number], [id number] ####[address] [address] Eosinophils/100 WBC (Bld) 3.2 % Normal 0.0-8.0 [facility] Comment on above: Order Comment: Order Added by Areli Expert. Performed By: #### 2 [id number], [id number] ####[address] [address] Eosinophils/Leukoc ytes Auto (Bld) [Pure # fraction] 0.1 E9/L Normal 0.0-0.5 [facility] Comment on above: Order Comment: Order Added by Areli Expert. Performed By: #### 2 [id number], [id number] ####[address] [address] Lymphocytes/100 WBC (Bld) 25.7 % Normal 14.0-50.0 [facility] Comment on above: Order Comment: Order Added by Areli Expert. Performed By: #### 2 [id number], [id number] ####[address] [address] Lymphocytes/Leukoc ytes Auto (Bld) [Pure # fraction] 0.6 E9/L Low 1.0-4.0 [facility] Comment on above: Order Comment: Order Added by Areli Expert. Performed By: #### 2 [id number], [id number] ####[address] [address] Monocytes/100 WBC (Bld) 10.8 % Normal 4.0-14.0 [facility] Comment on above: Order Comment: Order Added by Areli Expert. Performed By: #### 2 [id number], [id number] ####[id number] [place] [address] Monocytes/Leukocyt es Auto (Bld) [Pure # fraction] 0.3 E9/L Normal 0.2-1.0 [facility] Comment on above: Order Comment: Order Added by Discern Expert. Performed By: #### 2 [id number], [id number] ####[address] [address] Neutrophils/100 WBC (Bld) 59.4 % Normal 36.0-75.0 [facility] Comment on above: Order Comment: Order Added by Discern Expert. Performed By: #### 2 [id number], [id number] ####[address] [address] Neutrophils/Leukoc ytes Auto (Bld) [Pure # fraction] 1.5 E9/L Low 2.0-7.5 [facility] Comment on above: Order Comment: Order Added by Discern Expert. Performed By: #### 2 [id number], [id number] ####[address] [address] CBC w/ Auto Diffon 3 Erythrocyte distribution width (RBC) [Ratio] 13.1 % Normal 10.9-14.2 [facility] Comment on above: Performed By: #### 2 [id number], [id number] ####[address] [address] Hematocrit (Bld) [Volume fraction] 31.8 % Low 34.0-46.0 [facility] Comment on above: Performed By: #### 2 [id number], [id number] ####[address] [address] Hemoglobin (Bld) [Mass/Vol] 10.9 g/dL Low 12.0-16.0 [facility] Comment on above: Performed By: #### 2 [id number], [id number] ####[address] [address] MCH (RBC) [Entitic mass] 31.7 pg Normal 27.0-34.0 [facility] Comment on above: Performed By: #### 2 [id number], [id number] ####[facility] [id number] [place] [address] MCHC (RBC) [Mass/Vol] 34.3 g/dL Normal 31.4-36.0 [facility] Comment on above: Performed By: #### 2 [id number], [id number] ####[address] [address] MCV (RBC) [Entitic vol] 92.3 fL Normal 80.0-100.0 [facility] Comment on above: Performed By: #### 2 [id number], [id number] ####[address] [address] Platelet mean volume (Bld) [Entitic vol] 8.5 fL Normal 6.4-10.8 [facility] Comment on above: Performed By: #### 2 252672, [id number] ####[address] [address] Platelets (Bld) [#/Vol] 79.0 E9/L Low 150.0-500.0 [facility] Comment on above: Performed By: #### 2 033023, 3412314 ####[address] [address] RBC (Bld) [#/Vol] 3.4 E12/L Low 4.3-5.9 [facility] Comment on above: Performed By: #### 2 290039, 3881459 ####[address] [address] WBC corrected for nucl RBC Auto (Bld) [#/Vol] 2.5 E9/L Low 4.0-11.0 [facility] Comment on above: Performed By: #### 2 758404, 0499937 ####[address] [address] Capillary Glucose POCon 10-1 3-2023 Glucose [Mass/Vol] 89 mg/dL Normal 55-99 [facility] Comment on above: Result Comment: Marilyn newell RN/ Performed By: #### 2 [id number] ####[facility] [address] [place] [address] Consenton 07-25-2023 Consent [id number]#1.00TIFF Normal [facility] Inpatient Clinical Summaryon 07-25-2023 Inpatient Clinical Summary Normal [facility] Inpatient Patient Summaryon 07-25-2023 Inpatient Patient Summary Invalid Interpretation Code [address] [place] [address]- \.br\ Friday 11:00 AM EST \.br\ With:\.br\ Where: [facility] Inpatient Patient Summary Invalid Interpretation Code [address] [place] [address]- \.br\ Friday 11:00 AM EST \.br\ With:\.br\ Where: [facility] Inpatient Patient Summary Normal [facility] Interdisciplinary Note - Lui e Manageron 07-25-2023 Interdisciplinary Note - Corporate Recycling Manager [facility] Comment on above: Result Comment: Elec tronically Signed By: Larisa Mccormack\.br\Date and Time Signed: 07/25/23 09:28 EDT Message from Medicareon 07-13 Message from Medicare [id number]#1.00TIFF [facility] Patient Education - Texton 1 Patient Education - Text [facility] Postoperative Documentson Postoperative Documents [id number]#1.00TIFF [facility] Progress Note-Physicianon Progress Note-Physician [facility] Comment on above: Result Comment: Elec tronically Signed By: Jim Dyson Jr, DO\.br\Date and Time Signed: 07/25/23 15:47 EDT Progress Note-Physician Normal [facility] Comment on above: Result Comment: Elec tronically Signed By: Jim Dyson Jr, DO\.br\Date and Time Signed: 07/25/23 15:46 EDT Auto Diffon 07-24-2023 Basophils/100 WBC (Bld) 1.1 % Normal 0.0-2.0 [facility] Comment on above: Order Comment: Order Added by Discern Expert. Performed By: #### 2 296278, 8174269 ####[facility] [address] [place] [address] Basophils/Leukocyt es Auto (Bld) [Pure # fraction] 0.0 E9/L Normal 0.0-0.2 [facility] Comment on above: Order Comment: Order Added by Discern Expert. Performed By: #### 2 137045, 0511054 ####[facility] [address] [place] [address] Eosinophils/100 WBC (Bld) 2.6 % Normal 0.0-8.0 [facility] Comment on above: Order Comment: Order Added by Discern Expert. Performed By: #### 2 658155, 2748516 ####[facility] [address] [place] [address] Eosinophils/Leukoc ytes Auto (Bld) [Pure # fraction] 0.1 E9/L Normal 0.0-0.5 [facility] Comment on above: Order Comment: Order Added by Discern Expert. Performed By: #### 2 772207, 4261482 ####[facility] [address] [place] [address] Lymphocytes/100 WBC (Bld) 31.2 % Normal 14.0-50.0 [facility] Comment on above: Order Comment: Order Added by Discern Expert. Performed By: #### 2 663597, 4540496 ####[facility] [address] [place] [address] Lymphocytes/Leukoc ytes Auto (Bld) [Pure # fraction] 0.8 E9/L Low 1.0-4.0 [facility] Comment on above: Order Comment: Order Added by Discern Expert. Performed By: #### 2 091168, 1513452 ####[address] [address] Monocytes/100 WBC (Bld) 9.8 % Normal 4.0-14.0 [facility] Comment on above: Order Comment: Order Added by Discern Expert. Performed By: #### 2 264074, 9622384 ####[address] [address] Monocytes/Leukocyt es Auto (Bld) [Pure # fraction] 0.2 E9/L Normal 0.2-1.0 [facility] Comment on above: Order Comment: Order Added by Areli Expert. Performed By: #### 2 870995, 1703695 ####[address] [address] Neutrophils/100 WBC (Bld) 55.3 % Normal 36.0-75.0 [facility] Comment on above: Order Comment: Order Added by Areli Expert. Performed By: #### 2 495746, 1582791 ####[address] [address] Neutrophils/Leukoc ytes Auto (Bld) [Pure # fraction] 1.4 E9/L Low 2.0-7.5 [facility] Comment on above: Order Comment: Order Added by Discern Expert. Performed By: #### 2 095716, 5759910 ####[address] [address] CBC w/ Auto Diffon 3 Erythrocyte distribution width (RBC) [Ratio] 13.1 % Normal 10.9-14.2 [facility] Comment on above: Performed By: #### 2 457270, 9215316 ####[address] [address] Hematocrit (Bld) [Volume fraction] 33.2 % Low 34.0-46.0 [facility] Comment on above: Performed By: #### 2 472097, 2947934 ####[address] [address] Hemoglobin (Bld) [Mass/Vol] 11.2 g/dL Low 12.0-16.0 [facility] Comment on above: Performed By: #### 2 936770, 6681843 ####[address] [address] MCH (RBC) [Entitic mass] 31.2 pg Normal 27.0-34.0 [facility] Comment on above: Performed By: #### 2 019925, 5710863 ####[address] [address] MCHC (RBC) [Mass/Vol] 33.7 g/dL Normal 31.4-36.0 [facility] Comment on above: Performed By: #### 2 220768, 9974208 ####[address] [address] MCV (RBC) [Entitic vol] 92.7 fL Normal 80.0-100.0 [facility] Comment on above: Performed By: #### 2 032908, 1603653 ####[address] [address] Platelet mean volume (Bld) [Entitic vol] 8.5 fL Normal 6.4-10.8 [facility] Comment on above: Performed By: #### 2 925291, 1605442 ####[address] [address] Platelets (Bld) [#/Vol] 81.0 E9/L Low 150.0-500.0 [facility] Comment on above: Result Comment: Plat elet count verified using smear estimate Performed By: #### 2 034216, 3814787 ####[address] [address] RBC (Bld) [#/Vol] 3.6 E12/L Low 4.3-5.9 [facility] Comment on above: Performed By: #### 2 827513, 6524940 ####[facility] [address] [place] [address] WBC corrected for nucl RBC Auto (Bld) [#/Vol] 2.5 E9/L Low 4.0-11.0 [facility] Comment on above: Performed By: #### 2 896918, 5020854 ####[facility] [address] [place] [address] Consent for Treatmenton 07-13 Consent for Treatment [id number]#1.00TIFF Normal [facility] Endoscopic Procedure Report - Otheron 07-24-2023 Endoscopic Procedure Report - Other Normal [facility] Comment on above: Result Comment: Elec tronically Signed By: Rachid PATTEN, Deborah Bell\.br\Date and Time Signed: 07/24/23 11:16 EDT Other Comment: Radha landaverde Attachment - attachment storage system not supported [id number] Can be viewed in [facility] Attachment - attachment storage system not supported [id number] Can be viewed in [facility] Attachment - attachment storage system not supported [id number] Can be viewed in [facility] Attachment - attachment storage system not supported [id number] Can be viewed in [facility] Attachment - attachment storage system not supported [id number] Can be viewed in [facility] Attachment - attachment storage system not supported [id number] Can be viewed in [facility] Attachment - attachment storage system not supported [id number] Can be viewed in source systemMissing Attachment - attachment storage system not supported [id number] Can be viewed in [facility] Attachment - attachment storage system not supported [id number] Can be viewed in [facility] Attachment - attachment storage system not supported 3886800 Can be viewed in [facility] Attachment - attachment storage system not supported [id number] Can be viewed in [facility] Attachment - attachment storage system not supported [id number] Can be viewed in [facility] Attachment - attachment storage system not supported [id number] Can be viewed in [facility] Attachment - attachment storage system not supported [id number] Can be viewed in source systemMissing Attachment - attachment storage system not supported [id number] Can be viewed in source system Main OR PACU I Recordon 07-13 Main OR PACU I Record [facility] Main OR Preoperative Recordo n 07-24-2023 Main OR Preoperative Record Normal [facility] Monitor Recordon 07-24-2023 Monitor Record [id number]#1.00TIFF Normal [facility] Monitor Record [id number]#1.00TIFF [facility] Outpatient Surgery Discharge Instructionon 07-24-2023 Outpatient Surgery Discharge Instruction [facility] Consent for Treatmenton 07-13 Consent for Treatment [id number]#1.00TIFF [facility] Oncology Progress Noteon Oncology Progress Note [facility] Pathology Noteon 07-09-2023 Pathology Note [id number]#1.00CD:127 Normal [facility] Pathology Reporton 3 Pathology Report [id number]#1.00CD:127 [facility] Pathology Reporton 3 Pathology Report [id number]#1.00CD:127 Normal [facility] Pathology Report [id number]#1.00CD:127 Normal [facility] Pathology Report [id number]#1.00CD:127 Normal [facility] Family Medicine Office/Clini c Noteon 07-02-2023 Family Medicine Office/Clinic Note Normal [facility] Comment on above: Result Comment: Elec tronically Signed By: Denis PATTEN, Willian Daleybr\Date and Time Signed: 07/02/23 09:33 EDT\.br\Electronically Co-Signed By: Almita Garcia\.br\Date and Time Co-Signed: 06/30/23 14:28 EDT Pathology Reporton Pathology Report [id number]#1.00CD:127 Normal [facility] Ambulatory Visit Summaryon 0 06-30-2023 Ambulatory Visit Summary Invalid Interpretation Code [address] [place] [address]- \.br\ Friday 11:20 AM EST \.br\ With: Denis PATTEN, Willian Weiner\.br\ Where: [facility] Auto Diffon 06-30-2023 Basophils/100 WBC (Bld) 0.9 % Normal 0.0-2.0 [facility] Comment on above: Order Comment: Order Added by Discern Expert. Performed By: #### 2 457202, 7040304 ####[address] [address] Basophils/Leukocyt es Auto (Bld) [Pure # fraction] 0.0 E9/L Normal 0.0-0.2 [facility] Comment on above: Order Comment: Order Added by Discern Expert. Performed By: #### 2 795650, 4610859 ####[address] [address] Eosinophils/100 WBC (Bld) 3.9 % Normal 0.0-8.0 [facility] Comment on above: Order Comment: Order Added by Discern Expert. Performed By: #### 2 390260, 8929505 ####[address] [address] Eosinophils/Leukoc ytes Auto (Bld) [Pure # fraction] 0.1 E9/L Normal 0.0-0.5 [facility] Comment on above: Order Comment: Order Added by Discern Expert. Performed By: #### 2 983477, 2362329 ####[address] [place] [address] Lymphocytes/100 WBC (Bld) 28.2 % Normal 14.0-50.0 [facility] Comment on above: Order Comment: Order Added by Discern Expert. Performed By: #### 2 706616, 6330953 ####[address] [address] Lymphocytes/Leukoc ytes Auto (Bld) [Pure # fraction] 0.7 E9/L Low 1.0-4.0 [facility] Comment on above: Order Comment: Order Added by Discern Expert. Performed By: #### 2 821090, 0675350 ####[address] [address] Monocytes/100 WBC (Bld) 9.1 % Normal 4.0-14.0 [facility] Comment on above: Order Comment: Order Added by Discern Expert. Performed By: #### 2 780678, 0408839 ####[address] [address] Monocytes/Leukocyt es Auto (Bld) [Pure # fraction] 0.2 E9/L Normal 0.2-1.0 [facility] Comment on above: Order Comment: Order Added by Discern Expert. Performed By: #### 2 183172, 2258382 ####[address] [address] Neutrophils/100 WBC (Bld) 57.9 % Normal 36.0-75.0 [facility] Comment on above: Order Comment: Order Added by Discern Expert. Performed By: #### 2 262542, 3861117 ####[address] [address] Neutrophils/Leukoc ytes Auto (Bld) [Pure # fraction] 1.5 E9/L Low 2.0-7.5 [facility] Comment on above: Order Comment: Order Added by Discern Expert. Performed By: #### 2 214434, 9888053 ####[facility] [address] [place] [address] CBC w/ Auto Diffon 3 Erythrocyte distribution width (RBC) [Ratio] 12.8 % Normal 10.9-14.2 [facility] Comment on above: Performed By: #### 2 149710, 6879057 ####[address] [address] Hematocrit (Bld) [Volume fraction] 36.4 % Normal 34.0-46.0 [facility] Comment on above: Performed By: #### 2 759548, 2605992 ####[address] [address] Hemoglobin (Bld) [Mass/Vol] 12.3 g/dL Normal 12.0-16.0 [facility] Comment on above: Performed By: #### 2 748145, 2447762 ####[address] [address] MCH (RBC) [Entitic mass] 31.4 pg Normal 27.0-34.0 [facility] Comment on above: Performed By: #### 2 806334, 0974951 ####[address] [address] MCHC (RBC) [Mass/Vol] 33.7 g/dL Normal 31.4-36.0 [facility] Comment on above: Performed By: #### 2 226037, 4989812 ####[address] [address] MCV (RBC) [Entitic vol] 93.2 fL Normal 80.0-100.0 [facility] Comment on above: Performed By: #### 2 029190, 4076395 ####[address] [address] Platelet mean volume (Bld) [Entitic vol] 9.6 fL Normal 6.4-10.8 [facility] Comment on above: Performed By: #### 2 586328, 7451128 ####[address] [address] Platelets (Bld) [#/Vol] 79.0 E9/L Low 150.0-500.0 [facility] Comment on above: Performed By: #### 2 766316, 3743954 ####[facility] [address] [place] [address] RBC (Bld) [#/Vol] 3.9 E12/L Low 4.3-5.9 [facility] Comment on above: Performed By: #### 2 994290, 2721311 ####[facility] [address] [place] [address] WBC corrected for nucl RBC Auto (Bld) [#/Vol] 2.7 E9/L Low 4.0-11.0 [facility] Comment on above: Performed By: #### 2 443007, 2953206 ####[facility] [address] [place] [address] CHEMISTRYOrdered By: SYSTEM SYSTEM on 06-30-2023 Albumin [Mass/Vol] 3.6 g/dL Normal 3.3 - 5.0 gm/dL F C [facility] Albumin/Globulin [Mass ratio] 1.1 {ratio} Normal [...] 20 mg/dL Normal 7 - 40 mg/dL [facility] CO2 [Moles/Vol] 26 mmol/L Normal 21 - 31 mmol/L [facility] Creatinine [Mass/Vol] 1.2 mg/dL Normal 0.5 - 1.3 mg/dL [facility] GFR/1.73 sq M.predicted among non-blacks MDRD (S/P/Bld) [Vol rate/Area] 49 mL/min/1.73 m2 Low >=59mL/min/1.[address] [facility] Chem S Globulin (S) [Mass/Vol] 3.3 g/dL Normal 1.4 - 4.0 gm/dL [facility] Glucose [Mass/Vol] 289 mg/dL High 55 - 199 mg/dL [facility] Potassium [Moles/Vol] 4.1 mmol/L Normal 3.5 - 5.3 mmol/L [facility] Protein [Mass/Vol] 6.9 g/dL Normal 6.0 - 7.8 gm/dL F [facility] Remisol Sodium [Moles/Vol] 136 mmol/L Normal 135 - 145 mmol/L [facility] Triglyceride [Mass/Vol] 102 mg/dL Normal <=149mg/dL [facility] Urea nitrogen [Mass/Vol] 19 mg/dL Normal 5 - 21 mg/dL [facility] Urea nitrogen/Creatinin e [Mass ratio] 16 mg/mg Normal 10 - 20 [facility] Remisol CHEMISTRYOrdered By: Gabriela Kincaid on 06-30-2023 Albumin DL <= 20 mg/L (U) [Mass/Vol] microgram/mL Normal 0.0 - 19.0 mcg/mL [facility] Remisol Albumin Elph (U) [Mass fraction] mg/dL Invalid Interpretation Code [facility] Remisol Creatinine (U) [Mass/Vol] 82.1 mg/dL Invalid Interpretation Code [facility] Remisol U Prot/Creat Ratio [facility] Invalid Interpretation Code 0.00 - 200.00 [facility] Remisol CHEMISTRYOrdered By: Jamison meadows on 06-30-2023 HbA1c (Bld) [Mass fraction] 7.0 % High <=5.9% [facility] ChemAutoSS CMPon 06-30-2023 Albumin [Mass/Vol] 3.6 g/dL Normal 3.3-5.0 [facility] Comment on above: Performed By: #### 2 714068, 59566426, 4283949, 588925110 ####[facility] [address] [place] [address] Albumin/Globulin (S) [Mass conc ratio] 1.1 Normal 1.1-2.2 [facility] Comment on above: Performed By: #### 2 268296, 22469594, 6019484, 769896465 ####[facility] [address] [place] [address] ALP [Catalytic activity/Vol] 66 Int._Unit/L Normal 21-98 [facility] Comment on above: Performed By: #### 2 511982, 91261023, 9877697, 744280401 ####[facility] [address] [place] [address] ALT No additional P-5'-P [Catalytic activity/Vol] 21 Int._Unit/L Normal 6-46 [facility] Comment on above: Performed By: #### 2 998198, 97457013, 7518920, 146033705 ####[facility] [address] [place] [address] Anion gap [Moles/Vol] 11 mmol/L Normal 6-16 [facility] Comment on above: Performed By: #### 2 752106, 75137111, 4854412, 798994491 ####[facility] [address] [place] [address] AST [Catalytic activity/Vol] 37 Int._Unit/L Normal 5-43 [facility] Comment on above: Performed By: #### 2 553689, 95794757, 9663890, 326220767 ####[facility] [address] [place] [address] Bilirubin [Mass/Vol] 0.8 mg/dL Normal 0.0-1.1 [facility] Comment on above: Performed By: #### 2 274933, 77580538, 0026575, 137380850 ####[facility] [address] [place] [address] Calcium [Mass/Vol] 9.5 mg/dL Normal 8.9-11.1 [facility] Comment on above: Performed By: #### 2 686850, 92665656, 9245075, 812752080 ####[facility] [address] [place] [address] Chloride [Moles/Vol] 103 mmol/L Normal 101-111 [facility] Comment on above: Performed By: #### 2 077899, 26199650, 3851695, 917056580 ####[facility] [address] [place] [address] CO2 [Moles/Vol] 26 mmol/L Normal 21-31 [facility] Comment on above: Performed By: #### 2 832885, 46500508, 6668463, 437960569 ####[facility] [address] [place] [address] Creatinine [Mass/Vol] 1.2 mg/dL Normal 0.5-1.3 [facility] Comment on above: Performed By: #### 2 401121, 86777844, 7389662, 611797173 ####[facility] [address] [place] [address] Globulin (S) [Mass/Vol] 3.3 g/dL Normal 1.4-4.0 [facility] Comment on above: Performed By: #### 2 736738, 12299991, 8959152, 535297546 ####[facility] [address] [place] [address] Glucose [Mass/Vol] 289 mg/dL High 55-199 [facility] Comment on above: Result Comment: If t his glucose result represents a fasting glucose, interpretation should refer to the following reference range: 55-99 mg/dL Performed By: #### 2 505969, 41679717, 5580506, 613273716 ####[facility] [address] [place] [address] Potassium [Moles/Vol] 4.1 mmol/L Normal 3.5-5.3 [facility] Comment on above: Performed By: #### 2 171591, 87543328, 4607291, 933999200 ####[facility] [address] [place] [address] Protein [Mass/Vol] 6.9 g/dL Normal 6.0-7.8 [facility] Comment on above: Performed By: #### 2 377241, 52320678, 7585598, 854266990 ####[facility] [address] [place] [address] Sodium [Moles/Vol] 136 mmol/L Normal 135-145 [facility] Comment on above: Performed By: #### 2 184316, 56463665, 8783696, 868872427 ####[facility] [address] [place] [address] Urea nitrogen [Mass/Vol] 19 mg/dL Normal 5-21 [facility] Comment on above: Performed By: #### 2 842948, 55523443, 4568278, 672462342 ####[facility] [address] [place] [address] Urea nitrogen/Creatinin e [Mass ratio] 16 No Units Normal 10-20 [facility] Comment on above: Performed By: #### 2 339405, 03667622, 3828130, 208409091 ####[facility] [address] [place] [address] HEMATOLOGYOrdered By: SYSTEM SYSTEM on 06-30-2023 Basophils/100 WBC (Bld) 0.9 % Normal 0.0 - 2.0 % [facility] HemeAutoSS Basophils/Leukocyt es Auto (Bld) [Pure # [...] gm/dL [facility] HemeAutoSS MCH (RBC) [Entitic mass] 31.4 pg Normal 27.0 - 34.0 pg [facility] HemeAutoSS MCHC (RBC) [Mass/Vol] 33.7 g/dL Normal 31.4 - 36.0 gm/dL [facility] HemeAutoSS MCV (RBC) [Entitic vol] 93.2 fL Normal 80.0 - 100.0 fL [facility] HemeAutoSS Platelet mean volume (Bld) [Entitic vol] 9.6 fL Normal 6.4 - 10.8 fL [facility] HemeAutoSS Platelets (Bld) [#/Vol] 79.0 E9/L Low 150.0 - 500.0 E9/L [facility] HemeAutoSS RBC (Bld) [#/Vol] 3.9 E12/L Low 4.3 - 5.9 E12/L [facility] HemeAutoSS WBC corrected for nucl RBC Auto (Bld) [#/Vol] 2.7 E9/L Low 4.0 - 11.0 E9/L [facility] HemeAutoSS DtfA1omd 06-30-2023 HbA1c (Bld) [Mass fraction] 7.0 % High <=5.9 [facility] Comment on above: Performed By: #### 2 846016, 25546664, 2057845, 396692838 ####[facility] [address] [place] [address] Lipid Panelon 06-30-2023 Cholesterol [Mass/Vol] 140 mg/dL Normal 120-200 [facility] Comment on above: Performed By: #### 2 791280, 25880123, 8727554, 246674364 ####[facility] [address] [place] [address] Cholesterol in HDL [Mass/Vol] 35 mg/dL Invalid Interpretation Code [facility] Comment on above: Result Comment: HDL > or equal to 60 mg/dL: Low cardiovascular riskHDL < 40 mg/dL : High cardiovascular risk Performed By: #### 2 292678, 93366529, 8122959, 002557851 ####[facility] [address] [place] [address] Cholesterol in LDL [Mass/Vol] 83 mg/dL Normal <=129 [facility] Comment on above: Performed By: #### 2 428694, 61942949, 1382713, 996139954 ####[facility] [address] [place] [address] Cholesterol in VLDL [Mass/Vol] 20 mg/dL Normal 7-40 [facility] Comment on above: Performed By: #### 2 848587, 48972722, 9688265, 973205716 ####[facility] [address] [place] [address] Triglyceride [Mass/Vol] 102 mg/dL Normal <=149 [facility] Comment on above: Performed By: #### 2 254876, 87116890, 6622493, 508636353 ####[facility] [address] [place] [address] Pathology Reporton Pathology Report [id number]#1.00CD:127 Normal [facility] Pathology Report [id number]#1.00CD:127 Normal [facility] Pathology Report [id number]#1.00CD:127 Normal [facility] Pathology Report [id number]#1.00CD:127 Normal [facility] Pathology Report [id number]#1.00CD:127 Normal [facility] Comment on above: Other Comment: cleri moses U Microalbon 06-30-2023 Albumin DL <= 20 mg/L (U) [Mass/Vol] mg/dL Normal 0.0-19.0 [facility] Comment on above: Performed By: #### 1 1019298, [id number] ####[facility] [address] [place] [address] U Protein/Creat Ratioon 06-13 Creatinine (U) [Mass/Vol] 82.1 mg/dL Invalid Interpretation Code [facility] Comment on above: Result Comment: The reference range and other method performance specifications have not been established for this test; results should be integrated into the clinical context for interpretation. Performed By: #### 1 2345920, [id number] ####[facility] [address] [place] [address] U Prot/Creat Ratio [facility] Invalid Interpretation Code .00-200.00 [facility] Comment on above: Performed By: #### 1 8736918, [id number] ####[facility] [address] [place] [address] Albumin Elph (U) [Mass fraction] <6.0 Invalid Interpretation Code [facility] Comment on above: Result Comment: The reference range and other method performance specifications have not been established for this test; results should be integrated into the clinical context for interpretation. Performed By: #### 1 3439638, [id number] ####[address] [place] [address] eGFRon 06-30-2023 GFR/1.73 sq M.predicted among non-blacks MDRD (S/P/Bld) [Vol rate/Area] 49 mL/min/1.73 m2 Low >=59 [facility] Comment on above: Order Comment: Order added by Discern Expert. Result Comment: City Controller annabella kidney disease could be indicated at eGFR's of less than 60 mL/min/1.73m2. Kidney failure is indicated at less than 15 mL/min/1.73m2. Performed By: #### 2 014327, 89842262, 9715663, 408068854 ####[address] [place] [address] Discharge Instructionson Discharge Instructions [id number]#1.00CD:127 Normal [facility] Preoperative Documentson Preoperative Documents [id number]#1.00CD:127 Normal [facility] Auto Diffon 06-24-2023 Basophils/100 WBC (Bld) 1.5 % Normal 0.0-2.0 [facility] Comment on above: Order Comment: Order Added by Discern Expert. Performed By: #### 2 599532, 7948159 ####[facility] [address] [place] [address] Basophils/Leukocyt es Auto (Bld) [Pure # fraction] 0.0 E9/L Normal 0.0-0.2 [facility] Comment on above: Order Comment: Order Added by Discern Expert. Performed By: #### 2 730435, 3191040 ####[address] [address] Eosinophils/100 WBC (Bld) 3.9 % Normal 0.0-8.0 [facility] Comment on above: Order Comment: Order Added by Discern Expert. Performed By: #### 2 848050, 2587496 ####[address] [address] Eosinophils/Leukoc ytes Auto (Bld) [Pure # fraction] 0.1 E9/L Normal 0.0-0.5 [facility] Comment on above: Order Comment: Order Added by Discern Expert. Performed By: #### 2 063251, 6354062 ####[address] [address] Lymphocytes/100 WBC (Bld) 31.3 % Normal 14.0-50.0 [facility] Comment on above: Order Comment: Order Added by Discern Expert. Performed By: #### 2 481542, 6505761 ####[address] [address] Lymphocytes/Leukoc ytes Auto (Bld) [Pure # fraction] 0.8 E9/L Low 1.0-4.0 [facility] Comment on above: Order Comment: Order Added by Discern Expert. Performed By: #### 2 321489, 2800222 ####[address] [address] Monocytes/100 WBC (Bld) 10.5 % Normal 4.0-14.0 [facility] Comment on above: Order Comment: Order Added by Discern Expert. Performed By: #### 2 572691, 6887143 ####[address] [address] Monocytes/Leukocyt es Auto (Bld) [Pure # fraction] 0.3 E9/L Normal 0.2-1.0 [facility] Comment on above: Order Comment: Order Added by Discern Expert. Performed By: #### 2 910718, 9703860 ####[facility] [address] [place] [address] Neutrophils/100 WBC (Bld) 52.8 % Normal 36.0-75.0 [facility] Comment on above: Order Comment: Order Added by Discern Expert. Performed By: #### 2 207611, 2430665 ####[address] [address] Neutrophils/Leukoc ytes Auto (Bld) [Pure # fraction] 1.3 E9/L Low 2.0-7.5 [facility] Comment on above: Order Comment: Order Added by Discern Expert. Performed By: #### 2 449753, 9040884 ####[address] [address] CBC w/ Auto Diffon Erythrocyte distribution width (RBC) [Ratio] 12.6 % Normal 10.9-14.2 [facility] Comment on above: Performed By: #### 2 844653, 6109099 ####[address] [address] Hematocrit (Bld) [Volume fraction] 35.1 % Normal 34.0-46.0 [facility] Comment on above: Performed By: #### 2 219782, 7700574 ####[address] [address] Hemoglobin (Bld) [Mass/Vol] 12.0 g/dL Normal 12.0-16.0 [facility] Comment on above: Performed By: #### 2 245490, 5728764 ####[address] [address] MCH (RBC) [Entitic mass] 31.6 pg Normal 27.0-34.0 [facility] Comment on above: Performed By: #### 2 376093, 9713112 ####[address] [address] MCHC (RBC) [Mass/Vol] 34.1 g/dL Normal 31.4-36.0 [facility] Comment on above: Performed By: #### 2 949439, 7484390 ####[facility] [address] [place] [address] MCV (RBC) [Entitic vol] 92.7 fL Normal 80.0-100.0 [facility] Comment on above: Performed By: #### 2 483413, 3201531 ####[facility] [address] [place] [address] Platelet mean volume (Bld) [Entitic vol] 8.4 fL Normal 6.4-10.8 [facility] Comment on above: Performed By: #### 2 882019, 3563626 ####[facility] [address] [place] [address] Platelets (Bld) [#/Vol] 83.0 E9/L Low 150.0-500.0 [facility] Comment on above: Result Comment: Slid e reviewed by TLP.Platelet count verified using smear estimate. Performed By: #### 2 158179, 2603871 ####[facility] [address] [place] [address] RBC (Bld) [#/Vol] 3.8 E12/L Low 4.3-5.9 [facility] Comment on above: Performed By: #### 2 362647, 7426971 ####[facility] [address] [place] [address] WBC corrected for nucl RBC Auto (Bld) [#/Vol] 2.5 E9/L Low 4.0-11.0 [facility] Comment on above: Performed By: #### 2 194098, 5665184 ####[facility] [address] [place] [address] Bone Marrow Biopsyon 06-13 CT Bone Marrow Biopsy Normal [facility] Consent for Treatmenton 06-13 Consent for Treatment [id number]#1.00CD:127 Normal [facility] HEMATOLOGYOrdered By: SYSTEM SYSTEM on 06-24-2023 Basophils/100 [...] 8.4 fL Normal 6.4 - 10.[address] [facility] HemeAutoSS Platelets (Bld) [#/Vol] 83.0 E9/L Low 150.0 - 500.0 E9/L [facility] Comment on above: Result Comment: Slid e reviewed by TLP. Platelet count verified using smear estimate. RBC (Bld) [#/Vol] 3.8 E12/L Low 4.3 - 5.9 E12/L [facility] HemeAutoSS WBC corrected for nucl RBC Auto (Bld) [#/Vol] 2.5 E9/L Low 4.0 - 11.0 E9/L [facility] HemeAutoSS Main OR PACU II Recordon Main OR PACU II Record Normal [facility] RAD - Consent to Procedureon 06-24-2023 RAD - Consent to Procedure [id number]#1.00CD:127 Normal [facility] Outside Labson 06-19-2023 Outside Labs [id number]#1.00CD:127 Normal [facility] Consent for Treatmenton Consent for Treatment [id number]#1.00CD:127 Normal [facility] Oncology Progress Noteon Oncology Progress Note Normal [facility] Physician Orderon 06-17-2023 Physician Order [id number]#1.00CD:127 Normal [facility] Auto Diffon 06-12-2023 Basophils/100 WBC (Bld) 1.1 % Normal 0.0-2.0 [facility] Comment on above: Order Comment: Order Added by Discern Expert. Performed By: #### 2 538792, 6258259 ####[facility] [address] [place] [address] Basophils/Leukocyt es Auto (Bld) [Pure # fraction] 0.0 E9/L Normal 0.0-0.2 [facility] Comment on above: Order Comment: Order Added by Discern Expert. Performed By: #### 2 840628, 0843560 ####[address] [address] Eosinophils/100 WBC (Bld) 4.1 % Normal 0.0-8.0 [facility] Comment on above: Order Comment: Order Added by Discern Expert. Performed By: #### 2 738958, 5112924 ####[address] [address] Eosinophils/Leukoc ytes Auto (Bld) [Pure # fraction] 0.1 E9/L Normal 0.0-0.5 [facility] Comment on above: Order Comment: Order Added by Discern Expert. Performed By: #### 2 692348, 6112665 ####[address] [address] Lymphocytes/100 WBC (Bld) 27.6 % Normal 14.0-50.0 [facility] Comment on above: Order Comment: Order Added by Discern Expert. Performed By: #### 2 081149, 9339638 ####[address] [address] Lymphocytes/Leukoc ytes Auto (Bld) [Pure # fraction] 0.8 E9/L Low 1.0-4.0 [facility] Comment on above: Order Comment: Order Added by Areli Expert. Performed By: #### 2 229498, 3693897 ####[address] [address] Monocytes/100 WBC (Bld) 10.4 % Normal 4.0-14.0 [facility] Comment on above: Order Comment: Order Added by Discern Expert. Performed By: #### 2 647113, 2466145 ####[address] [address] Monocytes/Leukocyt es Auto (Bld) [Pure # fraction] 0.3 E9/L Normal 0.2-1.0 [facility] Comment on above: Order Comment: Order Added by Discern Expert. Performed By: #### 2 695807, 9338216 ####[facility] [address] [place] [address] Neutrophils/100 WBC (Bld) 56.8 % Normal 36.0-75.0 [facility] Comment on above: Order Comment: Order Added by Discern Expert. Performed By: #### 2 880871, 0007744 ####[facility] [address] [place] [address] Neutrophils/Leukoc ytes Auto (Bld) [Pure # fraction] 1.7 E9/L Low 2.0-7.5 [facility] Comment on above: Order Comment: Order Added by Discern Expert. Performed By: #### 2 512574, 5612536 ####[address] [address] CBC w/ Auto Diffon Erythrocyte distribution width (RBC) [Ratio] 12.8 % Normal 10.9-14.2 [facility] Comment on above: Performed By: #### 2 310953, 2936899 ####[address] [address] Hematocrit (Bld) [Volume fraction] 36.7 % Normal 34.0-46.0 [facility] Comment on above: Performed By: #### 2 589265, 8033713 ####[address] [address] Hemoglobin (Bld) [Mass/Vol] 12.2 g/dL Normal 12.0-16.0 [facility] Comment on above: Performed By: #### 2 398869, 7776212 ####[address] [address] MCH (RBC) [Entitic mass] 31.3 pg Normal 27.0-34.0 [facility] Comment on above: Performed By: #### 2 102681, 9337667 ####[address] [address] MCHC (RBC) [Mass/Vol] 33.3 g/dL Normal 31.4-36.0 [facility] Comment on above: Performed By: #### 2 286948, 2367596 ####[address] [address] MCV (RBC) [Entitic vol] 93.8 fL Normal 80.0-100.0 [facility] Comment on above: Performed By: #### 2 417341, 4767532 ####[address] [address] Platelet mean volume (Bld) [Entitic vol] 9.1 fL Normal 6.4-10.8 [facility] Comment on above: Performed By: #### 2 171882, 5033348 ####[address] [address] Platelets (Bld) [#/Vol] 102.0 E9/L Low 150.0-500.0 [facility] Comment on above: Performed By: #### 2 916255, 8006545 ####[address] [address] RBC (Bld) [#/Vol] 3.9 E12/L Low 4.3-5.9 [facility] Comment on above: Performed By: #### 2 737032, 1672056 ####[address] [address] WBC corrected for nucl RBC Auto (Bld) [#/Vol] 3.0 E9/L Low 4.0-11.0 [facility] Comment on above: Performed By: #### 2 761761, 4380812 ####[address] [address] Consent for Treatmenton 05-15 Consent for Treatment [id number]#1.00CD:127 Normal [facility] HEMATOLOGYOrdered By: SYSTEM SYSTEM on 06-12-2023 Basophils/100 [...] 9.1 fL Normal 6.4 - 10.[address] [facility] HemeAutoSS Platelets (Bld) [#/Vol] 102.0 E9/L Low 150.0 - 500.0 E9/L [facility] HemeAutoSS RBC (Bld) [#/Vol] 3.9 E12/L Low 4.3 - 5.9 E12/L [facility] HemeAutoSS WBC corrected for nucl RBC Auto (Bld) [#/Vol] 3.0 E9/L Low 4.0 - 11.0 E9/L [facility] HemeAutoSS Consent for Procedure/Surger yon 06-05-2023 Consent for Procedure/Surgery [id number]#1.00CD:127 Normal [facility] Ambulatory Visit Summaryon 0 06-04-2023 Ambulatory Visit Summary Invalid Interpretation Code [address] [place] [address]- \.br\ Friday 2:20 PM EST \.br\ With: Denis PATTEN, Willian Weiner\.br\ Where: [facility] Gastroenterology Office/Clin ic Noteon 06-04-2023 Gastroenterology Office/Clinic Note Normal [facility] Comment on above: Result Comment: Elec tronically Signed By: Rachid PATTEN, Deborah Bell\.br\Date and Time Signed: 06/04/23 14:05 EDT Lab Reportson 05-29-2023 Lab Reports [id number]#1.00CD:127 Normal [facility] Office Visiton 05-29-2023 Follow-up visit [id number] Juanjo Santos 1955 F Date Provider Department Center 05/29/2023 85859-TDFPJMZVFDELMAR DOUGLAS [facility] No family history on file Level of Service:82855 [place] OFFICE/OUTPATIENT ESTABLISHED MOD MDM 30-39 MIN Reason for Visit and Comments: Follow-up [787533] - Early follow up Normal [facility] Auto Diffon 05-27-2023 Basophils/100 WBC (Bld) 1.3 % Normal 0.0-2.0 [facility] Comment on above: Order Comment: Order Added by Discern Expert. Performed By: #### 2 232822, 8671642 ####[address] [address] Basophils/Leukocyt es Auto (Bld) [Pure # fraction] 0.0 E9/L Normal 0.0-0.2 [facility] Comment on above: Order Comment: Order Added by Discern Expert. Performed By: #### 2 056079, 2352667 ####[address] [address] Eosinophils/100 WBC (Bld) 5.3 % Normal 0.0-8.0 [facility] Comment on above: Order Comment: Order Added by Discern Expert. Performed By: #### 2 967535, 6184595 ####[address] [address] Eosinophils/Leukoc ytes Auto (Bld) [Pure # fraction] 0.2 E9/L Normal 0.0-0.5 [facility] Comment on above: Order Comment: Order Added by Areli Expert. Performed By: #### 2 203366, 3804999 ####[address] [address] Lymphocytes/100 WBC (Bld) 26.5 % Normal 14.0-50.0 [facility] Comment on above: Order Comment: Order Added by Discern Expert. Performed By: #### 2 793592, 8794355 ####[address] [address] Lymphocytes/Leukoc ytes Auto (Bld) [Pure # fraction] 0.8 E9/L Low 1.0-4.0 [facility] Comment on above: Order Comment: Order Added by Areli Expert. Performed By: #### 2 539560, 4182695 ####[address] [address] Monocytes/100 WBC (Bld) 10.9 % Normal 4.0-14.0 [facility] Comment on above: Order Comment: Order Added by Discern Expert. Performed By: #### 2 058415, 2648156 ####[address] [address] Monocytes/Leukocyt es Auto (Bld) [Pure # fraction] 0.3 E9/L Normal 0.2-1.0 [facility] Comment on above: Order Comment: Order Added by Discern Expert. Performed By: #### 2 511098, 3757233 ####[address] [address] Neutrophils/100 WBC (Bld) 56.0 % Normal 36.0-75.0 [facility] Comment on above: Order Comment: Order Added by Discern Expert. Performed By: #### 2 174698, 1645026 ####[address] [address] Neutrophils/Leukoc ytes Auto (Bld) [Pure # fraction] 1.6 E9/L Low 2.0-7.5 [facility] Comment on above: Order Comment: Order Added by Discern Expert. Performed By: #### 2 990870, 9998796 ####[address] [address] CBC w/ Auto Diffon 3 Erythrocyte distribution width (RBC) [Ratio] 13.0 % Normal 10.9-14.2 [facility] Comment on above: Performed By: #### 2 154333, 7644113 ####[address] [address] Hematocrit (Bld) [Volume fraction] 32.9 % Low 34.0-46.0 [facility] Comment on above: Performed By: #### 2 541008, 7434788 ####[address] [address] Hemoglobin (Bld) [Mass/Vol] 11.2 g/dL Low 12.0-16.0 [facility] Comment on above: Performed By: #### 2 255993, 9154288 ####[address] [place] [address] MCH (RBC) [Entitic mass] 31.7 pg Normal 27.0-34.0 [facility] Comment on above: Performed By: #### 2 887216, 4577043 ####[address] [address] MCHC (RBC) [Mass/Vol] 34.2 g/dL Normal 31.4-36.0 [facility] Comment on above: Performed By: #### 2 880353, 3556115 ####[address] [address] MCV (RBC) [Entitic vol] 92.7 fL Normal 80.0-100.0 [facility] Comment on above: Performed By: #### 2 604767, 7749846 ####[address] [address] Platelet mean volume (Bld) [Entitic vol] 8.5 fL Normal 6.4-10.8 [facility] Comment on above: Performed By: #### 2 508884, 9937624 ####[address] [address] Platelets (Bld) [#/Vol] 99.0 E9/L Low 150.0-500.0 [facility] Comment on above: Result Comment: Slid e reviewed by ANU.Platelet count verified using smear estimate Performed By: #### 2 147910, 1746665 ####[address] [address] RBC (Bld) [#/Vol] 3.6 E12/L Low 4.3-5.9 [facility] Comment on above: Performed By: #### 2 805893, 0258511 ####[address] [address] WBC corrected for nucl RBC Auto (Bld) [#/Vol] 2.9 E9/L Low 4.0-11.0 [facility] Comment on above: Performed By: #### 2 874622, 4693535 ####[facility] [address] [place] [address] Consent for Treatmenton 05-13 Consent for Treatment [id number]#1.00CD:127 Normal [facility] HEMATOLOGYOrdered By: SYSTEM SYSTEM on 05-27-2023 Basophils/100 [...] 11.2 g/dL Low 12.0 - 16.0 gm/dL [facility] HemeAutoSS MCH (RBC) [Entitic mass] 31.7 pg Normal 27.0 - 34.0 pg FT HemeAutoSS MCHC (RBC) [Mass/Vol] 34.2 g/dL Normal 31.4 - 36.0 gm/dL [facility] HemeAutoSS MCV (RBC) [Entitic vol] 92.7 fL Normal 80.0 - 100.0 fL [facility] HemeAutoSS Platelet mean volume (Bld) [Entitic vol] 8.5 fL Normal 6.4 - 10.8 fL [facility] HemeAutoSS Platelets (Bld) [#/Vol] 99.0 E9/L Low 150.0 - 500.0 E9/L [facility] HemeAutoSS Comment on above: Result Comment: Slid e reviewed by ANU. Platelet count verified using smear estimate RBC (Bld) [#/Vol] 3.6 E12/L Low 4.3 - 5.9 E12/L [facility] HemeAutoSS WBC corrected for nucl RBC Auto (Bld) [#/Vol] 2.9 E9/L Low 4.0 - 11.0 E9/L [facility] HemeAutoSS Comp panel: Leuk/Lym [id number] n 05-16-2023 Analysis and Gating Strategy Comment Invalid Interpretation Code [facility] Comment on above: Result Comment: 8 co afshin analysis with CD45/SSC gatingTechnical-Analysis performed at [employer], [address] [place] [address] [place] ,[place] [address] Director: Sonia Capps [facility] Performed By: #### 1 167964426, 5386370541, 6805924609, 1685572, 1590336107, 887100876, 8941223496 ####[facility] [address] [place] [address] Annotation comment [Interpretation] Narrative Comment Invalid Interpretation Code [facility] Comment on above: Result Comment: Clin ical correlation is recommended. Performed By: #### 1 927738896, 6565167822, 0636483164, 0030624, 0939340696, 898640928, 6542671563 ####[facility] [address] [place] [address] Assessment of Leukocytes Comment Invalid Interpretation Code [facility] Comment on above: Result Comment: No m [...] 71%, NKcells 16%. Performed By: #### 1 746416532, 6639089069, 1943310233, 2558841, 5155565077, 357323641, 8504880357 ####[facility] [address] [place] [address] CLINICAL INFORMATION:FIND:P T: Comment Invalid Interpretation Code [facility] Comment on above: Result Comment: A re cent CBC was not available for review at the time this report wasprepared. Performed By: #### 1 556539720, 0255643025, 1375103977, 7927066, 7831859143, 174422252, 7095260455 ####[facility] [address] [place] [address] Immunophenotyping study Comment Invalid Interpretation Code [facility] Comment on above: Result Comment: CD2 Normal CD3 NormalCD4 Normal CD5 NormalCD7 Normal CD8 CqnsswCU83 Normal CD11b KjngecMY87 Normal CD14 TcskbmGE62 Normal CD19 YbhyblBM51 Normal CD33 KztwudJX22 Normal CD38 VpmtwpTR68 Normal CD56 CebqugHG26 Normal CD117 NormalHLA-DR Normal KAPPA NormalLAMBDA Normal CD64 Normal Performed By: #### 1 909723058, 8608758624, 6755373859, 9027220, 8222701172, 531203188, 3151444765 ####[facility] [address] [place] [address] Laboratory comment Good (Report) Comment Invalid Interpretation Code [facility] Comment on above: Result Comment: Each antibody in this assay was utilized to assess for potentialabnormalities of studied cell populations or to characterizeidentified abnormalities.This test was developed and its performance characteristics determinedby [employer]. It has not been cleared or approved by the U.S. Food andDrug Administration.The FDA has determined that such clearance or approval is notnecessary. This test is used for clinical purposes. It should not beregarded as investigational or for research.Performed at: -Y [facility] [id number] [facility] [place], [place] [id number] [facility] Génesis DawsonnPerformed at: TG [facility] [id number] [place], [place] [id number] [facility] Génesis Scott Performed By: #### 1 956476781, 0600797009, 9399976281, 2833578, 6082138819, 144945460, 2429945736 ####[address] [place] [address] Pathologist interpretation (Unsp spec) [Interp] Comment Invalid Interpretation Code [facility] Comment on above: Result Comment: No s ignificant immunophenotypic abnormality detected Performed By: #### 1 119836115, 2491952182, 3845424869, 5942146, 7570197176, 812738535, 1122967478 ####[facility] [address] [place] [address] Pathologist name Comment Invalid Interpretation Code [facility] Comment on above: Result Comment: Hoang Enamorado M.D. Performed By: #### 1 299625040, 0591723438, 9929239805, 9217666, 1861055133, 888877892, 0063158122 ####[facility] [address] [place] [address] Specimen source Nom (Unsp spec) Comment Invalid Interpretation Code [facility] Comment on above: Result Comment: Mary pheral blood Performed By: #### 1 165381555, 8362891429, 7233724412, 5595107, 2237042719, 658338566, 8209025099 ####[facility] [address] [place] [address] Viable cells/100 cells (Unsp spec) Comment Invalid Interpretation Code [facility] Comment on above: Result Comment: 86% Performed By: #### 1 715073987, 1505177029, 6262118237, 4911387, 1321813780, 710209309, 5677680700 ####[facility] [address] [place] [address] Flow Interp 16 or moreon 3 Flow Interp 16 or more Performed Invalid Interpretation Code [facility] Comment on above: Result Comment: Perf ormed at: -Y [facility] [id number] [place], [place] [id number] [facility] Chenn Anjen Performed By: #### 1 663415962, 7529918976, 9682247821, 4894378, 9531620803, 420378279, 7448589391 ####[facility] [address] [place] [address] Flow Marker, Firston 023 Flow Marker, First Performed Invalid Interpretation Code [facility] Comment on above: Result Comment: Perf ormed at: -[facility] [id number] [employer] [address] [place], [place] [id number] [facility] Chenn Anjen Performed By: #### 1 069652374, 2817175482, 7048026859, 8450373, 1962017163, 073643699, 9943853036 ####[facility] [address] [place] [address] Flow Markers X 15on 05-16-20 23 Flow Markers X 15 Performed Invalid Interpretation Code [facility] Comment on above: Result Comment: Perf ormed at: -Y [facility] [id number] [place], [place] [id number] [facility] Chenn Anjen Performed By: #### 1 893034674, 0456481652, 1147218848, 8446917, 9997667794, 498249610, 7934605700 ####[facility] [address] [place] [address] Flow Markers X 3on 3 Flow Markers X 3 Performed Invalid Interpretation Code [facility] Comment on above: Result Comment: Perf ormed at: -[facility] [id number] TW [facility] [place], [place] [id number] [facility] Génesis Anjen Performed By: #### 1 759742175, 0264677386, 3809978810, 1697784, 4143274880, 551055270, 1612842673 ####[facility] [address] [place] [address] Flow Markers X 5on 3 Flow Markers X 5 Performed Invalid Interpretation Code [facility] Comment on above: Result Comment: Perf ormed at: -[facility] [id number] [address] [place], [place] [id number] [facility] Chenn Anjen Performed By: #### 1 626602327, 8785822023, 0692188756, 2125766, 1011387547, 215359887, 4998235923 ####[facility] [address] [place] [address] Lab Miscellaneous-LCon 05-16 Lab Miscellaneous COMMENT Invalid Interpretation Code [facility] Comment on above: Result Comment: Test Ordered: 993767 Platelet Antibody ProfileHLA Class 1 Antibody Negative BNReference Range: NegativeIIb/IIIa Antibody Negative BNReference Range: NegativeIb/IX Antibody Negative BNReference Range: NegativeIa/IIa Antibody Negative BNReference Range: NegativeGlycoprotein IV Antibody Negative BNReference Range: NegativePerformed at: [facility] [address] [place], [place] [id number] PhD David Alexandra Performed By: #### 1 439138269 ####[facility] [address] [place] [address] Consent for Treatmenton Consent for Treatment [id number]#1.00CD:127 Normal [facility] Consent for Treatment [id number]#1.00CD:127 Normal [facility] HEMATOLOGYOrdered By: Mera Kincaid on 08-01-2023 Platelets (Bld) [#/Vol] 99.0 E9/L Low 150.0 - 500.0 E9/L [facility] HemeAutoSS Comment on above: Result Comment: Mara ortiz reviewed by ANU. Lab Miscellaneous-LCon 05-13 Test Code 831372 Invalid Interpretation Code [facility] Comment on above: Performed By: #### 1 [id number] ####[facility] [address] [place] [address] Test Name Platelet Antibo Invalid Interpretation Code [facility] Comment on above: Performed By: #### 1 280979319 ####[facility] [address] [place] [address] Oncology Noteon 05-13-2023 Oncology Note Normal [facility] Comment on above: Result Comment: Elec tronically Signed By: Maria M MATOS, Ana Luisa Shepherd\.br\Date and Time Signed: 05/13/23 11:13 EDT Oncology Progress Noteon Oncology Progress Note Normal [facility] Oncology Progress Note Normal [facility] Platelet Counton 05-13-2023 Platelets (Bld) [#/Vol] 99.0 E9/L Low 150.0-500.0 [facility] Comment on above: Order Comment: citra enid tube Result Comment: Slid e reviewed by ANU. Performed By: #### 1 929449593, 1654823136, 3606636984, 9152840, 5948574373, 544152578, 4505646677 ####[facility] [address] [place] [address] Reference Laboratory Testing Ordered By: Louann Girard on 05-13-2023 Test Code 462281 Invalid Interpretation Code [facility] SendOuts Test Name Platelet Antibo Invalid Interpretation Code [facility] SendOutsSS Consenton 05-02-2023 Consent [id number]#1.00CD:127 Normal [facility] Lab Miscellaneous-LCon 05-02 Lab Miscellaneous COMMENT Invalid Interpretation Code [facility] Comment on above: Order Comment: CPT - 80786, 59608s0, [address], [address], 37723j7, [address] Result Comment: Test Ordered: 398160 Flow Cytometry PNHInterpretation: Comment ;#Peripheral Blood:No evidence of paroxysmal nocturnal hemoglobinuria (PNH)DISCLAIMER: REFER TO HARDCOPY OR PDF FOR COMPLETE RESULT.If synopsis provided, clinical decisions should not bebased on this interfaced synopsis alone.Performed at: [address] [id number] PhD David Alexandra Performed By: #### 1 [id number] ####[facility] [address] [place] [address] ILANA w/Reflex if POSon 2022 Nuclear Ab Ql (S) Negative Invalid Interpretation Code Negative [facility] Comment on above: Result Comment: Perf ormed at: [facility] [place], [place] [id number] PhD David Alexandra Performed By: #### 1 9233166, 0110031, 84888875, 89719773, 1241031, 6432652, 3408340, 8813171, 41426897, 7819282, 5090365, 1704437, 8159847, 5337667 ####[address] [place] [address] Copper Lvlon 05-01-2023 Copper [Mass/Vol] 118 microgram/dL Invalid Interpretation Code 80-158 [facility] Comment on above: Result Comment: This test was developed and its performance characteristicsdetermined by [facility]. It has not been cleared or approvedby the Food and Drug Administration.Detection Limit = 5Performed at: [address] [id number] MD Christiano Kolb Performed By: #### 1 2491241, 8072012, 65120404, 87070025, 0957815, 5103029, 5122762, 3584947, 50460560, 5474435, 2763899, 4979418, 1982599, 9403122 ####[facility] [address] [place] [address] RF Quanton 05-01-2023 Rheumatoid factor Qn [IU]/mL Invalid Interpretation Code <14.0 [facility] Comment on above: Result Comment: Perf ormed at: [facility] [id number] [place], [place] [id number] PhD David Alexandra Performed By: #### 1 9192503, 3352482, 78348808, 87860448, 2451193, 4545592, 8852562, 8502506, 69080136, 7449757, 1864119, 8960685, 2519319, 7282110 ####[facility] [address] [place] [address] Auto Diffon 04-29-2023 Basophils/100 WBC (Bld) 1.1 % Normal 0.0-2.0 [facility] Comment on above: Order Comment: Order Added by Discern Expert. Performed By: #### 1 1573877, 5237795, 93051700, 14945760, 1601389, 5099542, 4714165, 7293818, 08622225, 4045808, 9437689, 2555263, 0836508, 0609396 ####[facility] [address] [place] [address] Basophils/Leukocyt es Auto (Bld) [Pure # fraction] 0.0 E9/L Normal 0.0-0.2 [facility] Comment on above: Order Comment: Order Added by Discern Expert. Performed By: #### 1 0768867, 9932261, 36321190, 59945882, 1445777, 9605054, 0751873, 2227730, 65583610, 7619830, 6478429, 7538765, 4606652, 8521899 ####[facility] [address] [place] [address] Eosinophils/100 WBC (Bld) 4.5 % Normal 0.0-8.0 [facility] Comment on above: Order Comment: Order Added by Discern Expert. Performed By: #### 1 2899030, 1238298, 95584369, 43938475, 6756243, 0246852, 8798090, 5093059, 80108548, 0709262, 7220655, 1847207, 8127735, 5278512 ####[facility] [address] [place] [address] Eosinophils/Leukoc ytes Auto (Bld) [Pure # fraction] 0.2 E9/L Normal 0.0-0.5 [facility] Comment on above: Order Comment: Order Added by Discern Expert. Performed By: #### 1 3095803, 1963413, 93575849, 42486976, 5099297, 6025269, 8456646, 2624231, 42630479, 8627514, 9320668, 8782888, 2039150, 8528414 ####[address] [place] [address] Lymphocytes/100 WBC (Bld) 23.0 % Normal 14.0-50.0 [facility] Comment on above: Order Comment: Order Added by Discern Expert. Performed By: #### 1 2405953, 9559828, 70404658, 35414859, 7090563, 7798214, 0847269, 4626015, 67953080, 1996308, 0211833, 7543534, 5789062, 5512598 ####[address] [place] [address] Lymphocytes/Leukoc ytes Auto (Bld) [Pure # fraction] 0.8 E9/L Low 1.0-4.0 [facility] Comment on above: Order Comment: Order Added by Discern Expert. Performed By: #### 1 8063106, 4962693, 75432566, 08801259, 4648196, 8364061, 7226656, 5653750, 94563502, 3602674, 2451494, 4779522, 0554964, 5012560 ####[address] [place] [address] Monocytes/100 WBC (Bld) 10.7 % Normal 4.0-14.0 [facility] Comment on above: Order Comment: Order Added by Discern Expert. Performed By: #### 1 2076464, 0492327, 69645656, 52348449, 5130919, 9902838, 1178383, 6886796, 67361879, 2020238, 8629186, 4036753, 9735878, 8556477 ####[facility] [address] [place] [address] Monocytes/Leukocyt es Auto (Bld) [Pure # fraction] 0.4 E9/L Normal 0.2-1.0 [facility] Comment on above: Order Comment: Order Added by Discern Expert. Performed By: #### 1 1145780, 9652128, 54658726, 96162446, 3941693, 9295003, 0871094, 9393520, 43196122, 9741087, 5091749, 7253501, 0006275, 6448314 ####[address] [address] Neutrophils/100 WBC (Bld) 60.7 % Normal 36.0-75.0 [facility] Comment on above: Order Comment: Order Added by Discern Expert. Performed By: #### 1 7267235, 1342306, 19578642, 01658691, 6757533, 1787172, 0463437, 4486047, 19420198, 3806883, 7034617, 5522888, 5364649, 7407093 ####[address] [place] [address] Neutrophils/Leukoc ytes Auto (Bld) [Pure # fraction] 2.1 E9/L Normal 2.0-7.5 [facility] Comment on above: Order Comment: Order Added by Discern Expert. Performed By: #### 1 1908450, 7825248, 92724356, 83989512, 7849630, 4271948, 3027768, 3826318, 85463736, 1007844, 9118545, 5712333, 0544716, 0312062 ####[address] [place] [address] CBC w/ Auto Diffon 3 Erythrocyte distribution width (RBC) [Ratio] 13.3 % Normal 10.9-14.2 [facility] Comment on above: Performed By: #### 1 0334396, 9556883, 08657126, 42071826, 3843800, 4902870, 7426129, 3406238, 68613320, 0200817, 9444416, 6897460, 8423720, 3870617 ####[facility] [address] [place] [address] Hematocrit (Bld) [Volume fraction] 36.7 % Normal 34.0-46.0 [facility] Comment on above: Performed By: #### 1 8694311, 6819151, 95904644, 00384146, 9665425, 8070811, 8187523, 8818761, 14684287, 4761195, 7103594, 0002567, 5269067, 6176975 ####[facility] [address] [place] [address] Hemoglobin (Bld) [Mass/Vol] 12.5 g/dL Normal 12.0-16.0 [facility] Comment on above: Performed By: #### 1 6585378, 6597043, 97360614, 57391410, 7124986, 9911208, 3171517, 1859179, 36755734, 4861239, 3028561, 3255067, 0014227, 7526033 ####[facility] [address] [place] [address] MCH (RBC) [Entitic mass] 31.2 pg Normal 27.0-34.0 [facility] Comment on above: Performed By: #### 1 1609029, 6261240, 10348138, 14607211, 0908546, 6817515, 8030673, 9506832, 45084543, 5663025, 2277196, 7100657, 7194774, 8986045 ####[facility] [address] [place] [address] MCHC (RBC) [Mass/Vol] 34.0 g/dL Normal 31.4-36.0 [facility] Comment on above: Performed By: #### 1 0641559, 7067338, 03304655, 09266883, 1745390, 0151714, 6794015, 6288097, 32007926, 8811555, 2778489, 7533718, 7841522, 6005243 ####[facility] [address] [place] [address] MCV (RBC) [Entitic vol] 91.6 fL Normal 80.0-100.0 [facility] Comment on above: Performed By: #### 1 5197651, 0626335, 35673405, 32006818, 6302438, 9590561, 9836508, 7612946, 93215686, 2017456, 6462614, 6056795, 4228232, 2225057 ####[facility] [address] [place] [address] Platelet mean volume (Bld) [Entitic vol] 9.0 fL Normal 6.4-10.8 [facility] Comment on above: Performed By: #### 1 6857905, 0614219, 89865072, 34381969, 7301659, 1116192, 0125070, 4044426, 39836449, 1880387, 2470552, 2816083, 5086499, 4402554 ####[facility] [address] [place] [address] Platelets (Bld) [#/Vol] 89.0 E9/L Low 150.0-500.0 [facility] Comment on above: Result Comment: Slid e reviewed by [place] [facility]. Performed By: #### 1 3162373, 9927806, 18387346, 63792716, 6704314, 9685407, 7149644, 7211122, 04269052, 1489734, 4923623, 2886567, 1329328, 9636928 ####[facility] [address] [place] [address] RBC (Bld) [#/Vol] 4.0 E12/L Low 4.3-5.9 [facility] Comment on above: Performed By: #### 1 4384596, 5165939, 45340655, 76153161, 5702892, 3920303, 5637374, 6363434, 05985063, 2627399, 9548478, 2634532, 1765541, 9298520 ####[facility] [address] [place] [address] WBC corrected for nucl RBC Auto (Bld) [#/Vol] 3.5 E9/L Low 4.0-11.0 [facility] Comment on above: Performed By: #### 1 9536466, 7010635, 00409033, 71163786, 2642162, 3521953, 1758300, 7886580, 44227101, 5039381, 7938463, 6256297, 3590047, 1038574 ####[facility] [address] [place] [address] CMPon 04-29-2023 Albumin [Mass/Vol] 3.6 g/dL Normal 3.3-5.0 [facility] Comment on above: Performed By: #### 1 9344364, 4184808, 94273429, 38110333, 9057006, 7698063, 6121114, 3315454, 99545944, 9704722, 4980747, 4752124, 7020769, 3377592 ####[facility] [address] [place] [address] Albumin/Globulin (S) [Mass conc ratio] 1.0 Low 1.1-2.2 [facility] Comment on above: Performed By: #### 1 8113844, 7364717, 54956317, 72210298, 9151963, 7922548, 0331466, 6130815, 50501202, 0694823, 0081742, 1841496, 9439293, 6320840 ####[facility] [address] [place] [address] ALP [Catalytic activity/Vol] 76 Int._Unit/L Normal 21-98 [facility] Comment on above: Performed By: #### 1 3717336, 5302084, 32259605, 80784649, 6661815, 4830875, 0105235, 4808697, 20983472, 8137367, 2864004, 9236670, 4052376, 9948940 ####[facility] [address] [place] [address] ALT No additional P-5'-P [Catalytic activity/Vol] 23 Int._Unit/L Normal 6-46 [facility] Comment on above: Performed By: #### 1 7931152, 5644544, 72415361, 41460192, 8406843, 1513088, 3039397, 8950449, 64187659, 3497829, 8612973, 8375267, 3952525, 3934734 ####[facility] [address] [place] [address] Anion gap [Moles/Vol] 15 mmol/L Normal 6-16 [facility] Comment on above: Performed By: #### 1 1617008, 4034094, 92923307, 34689642, 2749632, 9928121, 8602494, 7631904, 42840053, 3582860, 9491025, 4830518, 9214544, 0134309 ####[facility] [address] [place] [address] AST [Catalytic activity/Vol] 44 Int._Unit/L High 5-43 [facility] Comment on above: Performed By: #### 1 2892259, 1391799, 87573327, 89106110, 0799640, 9569915, 9893925, 0470268, 80408707, 9277248, 1729826, 0357501, 8782921, 9428732 ####[facility] [address] [place] [address] Bilirubin [Mass/Vol] 1.2 mg/dL High 0.0-1.1 [facility] Comment on above: Performed By: #### 1 0706252, 7091143, 88250766, 56799000, 0756888, 0554082, 5209321, 2380765, 86527449, 3782835, 3534161, 4966062, 7012121, 8444461 ####[facility] [address] [place] [address] Calcium [Mass/Vol] 9.3 mg/dL Normal 8.9-11.1 [facility] Comment on above: Performed By: #### 1 1787638, 2087821, 93629545, 35863294, 0301482, 1853410, 7467936, 2349517, 19832198, 6179491, 2974338, 3985916, 9864864, 9611032 ####[facility] [address] [place] [address] Chloride [Moles/Vol] 105 mmol/L Normal 101-111 [facility] Comment on above: Performed By: #### 1 2146083, 4150843, 80183348, 79128182, 0816525, 7016670, 7550336, 7806606, 11046000, 7798703, 3112283, 5642900, 3603110, 4357630 ####[facility] [address] [place] [address] CO2 [Moles/Vol] 23 mmol/L Normal 21-31 [facility] Comment on above: Performed By: #### 1 2836215, 7795316, 32206483, 71153430, 1681802, 6982704, 4285177, 4931793, 60510237, 0504248, 4046974, 4984257, 4046482, 0025100 ####[facility] [address] [place] [address] Creatinine [Mass/Vol] 1.1 mg/dL Normal 0.5-1.3 [facility] Comment on above: Performed By: #### 1 9963320, 5858849, 63457989, 28335025, 3505493, 1701335, 1953978, 7872581, 07532633, 3598382, 2661898, 4573496, 7538014, 6451673 ####[facility] [address] [place] [address] Globulin (S) [Mass/Vol] 3.5 g/dL Normal 1.4-4.0 [facility] Comment on above: Performed By: #### 1 7229156, 6087285, 83424602, 48039890, 4169316, 1972629, 1454309, 4393449, 85261288, 6357433, 5763520, 3849744, 7777745, 0162143 ####[facility] [address] [place] [address] Glucose [Mass/Vol] 155 mg/dL Normal 55-199 [facility] Comment on above: Result Comment: If t his glucose result represents a fasting glucose, interpretation should refer to the following reference range: 55-99 mg/dL Performed By: #### 1 1320249, 9714742, 94307904, 63632036, 4556867, 7365024, 7236836, 4276690, 17257549, 4390448, 4007434, 8584971, 8888104, 0475838 ####[facility] [address] [place] [address] Potassium [Moles/Vol] 3.5 mmol/L Normal 3.5-5.3 [facility] Comment on above: Performed By: #### 1 5608822, 1062576, 75779600, 18618855, 3520476, 0956288, 4231136, 9293779, 78215360, 3261153, 1987018, 0814746, 6501090, 8115303 ####[facility] [address] [place] [address] Protein [Mass/Vol] 7.1 g/dL Normal 6.0-7.8 [facility] Comment on above: Performed By: #### 1 5347166, 2976876, 65347171, 24856240, 1557920, 9880570, 1955156, 6959991, 43469311, 0647885, 0451476, 2430865, 6315098, 4586378 ####[facility] [address] [place] [address] Sodium [Moles/Vol] 139 mmol/L Normal 135-145 [facility] Comment on above: Performed By: #### 1 7605310, 9091262, 35038423, 08522395, 5861451, 0430063, 7314974, 4060314, 58934315, 0218993, 7616416, 6647218, 4223377, 2038018 ####[facility] [address] [place] [address] Urea nitrogen [Mass/Vol] 13 mg/dL Normal 5-21 [facility] Comment on above: Performed By: #### 1 4039089, 0248893, 44110895, 57925673, 2711858, 4268363, 0212130, 0628674, 35123566, 3842165, 1143611, 2361525, 3405656, 2648702 ####[facility] [address] [place] [address] Urea nitrogen/Creatinin e [Mass ratio] 12 No Units Normal 10-20 [facility] Comment on above: Performed By: #### 1 9880076, 2250511, 72667298, 18245798, 7251879, 2638852, 4223001, 8114440, 93523273, 9868703, 1373128, 8447586, 5500321, 3381828 ####[facility] [address] [place] [address] Consent for Treatmenton 04-12 Consent for Treatment [id number]:127 Normal [facility] Consent for Treatment [id number]:127 Normal [facility] DATon 04-29-2023 LETICIA IgG/C3d Gel Interp Negative Normal [facility] Comment on above: Performed By: #### 1 7075965 ####[facility] [address] [place] [address] Ferritinon 04-29-2023 Ferritin [Mass/Vol] 45 ng/mL Normal 11-307 [facility] Comment on above: Result Comment: NORM ALS MEN <30 YRS 16-132 ng/mL MEN >30 YRS 8-338 ng/mL WOMEN (PREMEN) 6-104 ng/mL WOMEN (POSTMEN) 12-210 ng/mL Performed By: #### 1 6408979, 2054217, 97010721, 14887683, 4764868, 3241618, 5886809, 6641269, 86822357, 7309678, 5881208, 4572735, 5343548, 5413787 ####[facility] [address] [place] [address] Folateon 04-29-2023 Folate [Mass/Vol] 12.6 ng/mL Normal >=6.7 [facility] Comment on above: Performed By: #### 1 9192120, 7627705, 60173139, 60074593, 9063690, 2904712, 3062030, 1768677, 77416647, 9488169, 4963139, 0162842, 8249717, 6936253 ####[facility] [address] [place] [address] Ironon 04-29-2023 Iron [Mass/Vol] 128 microgram/dL Normal 35-153 [facility] Comment on above: Performed By: #### 1 3196345, 0528059, 31890724, 64983771, 3600339, 3228320, 3671252, 0490549, 33885042, 6007641, 5334128, 7106691, 1417009, 8681510 ####[facility] [address] [place] [address] Iron Saturationon 04-29-2023 Iron binding capacity [Mass/Vol] 391 microgram/dL Normal 250-400 [facility] Comment on above: Performed By: #### 1 9005554, 5012673, 95675567, 16926201, 5572928, 1695458, 8594426, 0936484, 74230886, 2125900, 4768191, 3854907, 7587559, 2486586 ####[facility] [address] [place] [address] Iron saturation [Mass fraction] 33 % Normal 20-50 [facility] Comment on above: Performed By: #### 1 9703215, 7493573, 53675215, 88495309, 9677229, 1440731, 3711720, 3943096, 24509105, 9009585, 0437119, 3727421, 1197347, 7161350 ####[facility] [address] [place] [address] LDHon 04-29-2023 LDH [Catalytic activity/Vol] 195 Int._Unit/L Normal 93-218 [facility] Comment on above: Performed By: #### 1 9743950, 0272489, 29376829, 00564692, 8706530, 7728593, 5097593, 1619434, 79346420, 9708872, 1921654, 3589369, 8955494, 9875820 ####[address] [address] Lab Miscellaneous-LCon 04-29 Test Code 006740 Invalid Interpretation Code [facility] Comment on above: Order Comment: CPT - 55305, 01964p0, 09736, 60621, 01424h9, 74167 Performed By: #### 1 [id number] ####[address] [address] Test Name PNH Flow Cytome Invalid Interpretation Code [facility] Comment on above: Order Comment: CPT - 14007, 54433r5, 81113, 14620, 12155z4, 76[address] Performed By: #### 1 [id number] ####[address] [address] Oncology Noteon 04-29-2023 Oncology Note Normal [facility] Comment on above: Result Comment: Elec tronically Signed By: Maria M MATOS, Ana Luisa Shepherd\.br\Date and Time Signed: 04/29/23 10:56 EDT Transferrinon 04-29-2023 Transferrin [Mass/Vol] 279 mg/dL Normal 200-370 [facility] Comment on above: Performed By: #### 1 5295976, 5137582, 58492838, 55555536, 8514024, 5504148, 9671027, 8746498, 29104610, 3826503, 1992125, 1404927, 4008137, 9228690 ####[facility] [address] [place] [address] Vit B12on 04-29-2023 Cobalamin (Vitamin B12) [Mass/Vol] 549 pg/mL Normal 50-1500 [facility] Comment on above: Performed By: #### 1 0821218, 5672018, 52860958, 51116455, 9807142, 2768733, 1898637, 2871320, 89698690, 3195602, 0689379, 6162762, 8733822, 7777956 ####[facility] [address] [place] [address] eGFRon 04-29-2023 GFR/1.73 sq M.predicted among non-blacks MDRD (S/P/Bld) [Vol rate/Area] 54 mL/min/1.73 m2 Low >=59 [facility] Comment on above: Order Comment: Order added by Discern Expert. Result Comment: City Controller annabella kidney disease could be indicated at eGFR's of less than 60 mL/min/1.73m2. Kidney failure is indicated at less than 15 mL/min/1.73m2. Performed By: #### 1 3169646, 3006340, 51336087, 54266016, 3675367, 1458302, 2842745, 8713164, 06197591, 2211495, 0159209, 9654300, 8297251, 2729709 ####[facility] [address] [place] [address] CHEMISTRYOrdered By: SYSTEM SYSTEM on 03-17-2023 Albumin [...] 1.3 mg/dL Normal 0.5 - 1.3 mg/dL [facility] Remisol GFR/1.73 sq M.predicted among non-blacks MDRD (S/P/Bld) [Vol rate/Area] 45 mL/min/1.73 m2 Low >=59mL/min/1.73 m2 [facility] Chem S Globulin (S) [Mass/Vol] 3.3 g/dL Normal 1.4 - 4.0 gm/dL [facility] Remisol Glucose [Mass/Vol] 190 mg/dL Normal 55 - 199 mg/dL [facility] Remisol Potassium [Moles/Vol] 3.2 mmol/L Low 3.5 - 5.3 mmol/L [facility] Remisol Protein [Mass/Vol] 7.0 g/dL Normal 6.0 - 7.8 gm/dL [facility] Remisol Sodium [Moles/Vol] 137 mmol/L Normal 135 - 145 mmol/L [facility] Remisol Triglyceride [Mass/Vol] 125 mg/dL Normal <=149mg/dL [facility] Remisol TSH Qn 3.80 m[IU]/L Normal 0.34 [...] (Bld) [Mass fraction] 7.0 % High <=5.9% [facility] ChemAutoSS HEMATOLOGYOrdered By: Parascale SYSTEM on 03-17-2023 Basophils/100 WBC (Bld) 1.2 [...] 8.9 fL Normal 6.4 - 10.8 fL [facility] HemeAutoSS Platelets (Bld) [#/Vol] 101.0 E9/L Low 150.0 - 500.0 E9/L [facility] HemeAutoSS RBC (Bld) [#/Vol] 4.0 E12/L Low 4.3 - 5.9 E12/L [facility] HemeAutoSS WBC corrected for nucl RBC Auto (Bld) [#/Vol] 3.0 E9/L Low 4.0 - 11.0 E9/L [facility] HemeAutoSS FREE T3on 09-18-2022 FREE T3 1.81 pg/mlL Critically low 2.18-3.98 [facility] Comment on above: Performed By: #### T SH, FT3 #### [facility] [address] [place] [address] Dr. Jt Waite FREE T4on 09-18-2022 Free T4 [Mass/Vol] 1.19 ng/dL Normal 0.76-1.46 [facility] Comment on above: Performed By: #### F T4 #### [facility] [address] [place] [address] Dr. Jt Waite GLYCOHEMOGLOBIN A1Con 2021 ADA RECOMMENDATION SEE BELOW Normal [facility] Comment on above: Result Comment: ADA RECOMMENDED LIMIT 4.0 - 6.0 ADA THERAPEUTIC TARGET < 7.0 ACTION SUGGESTED > 7.0 Performed By: #### A 1C #### [facility] [address] [address] [address] Jt Waite Glucose [Mass/Vol] 146 mg/dL Normal [facility] Comment on above: Performed By: #### A 1C #### [facility] [address] [address] [address] Jt Waite HbA1c (Bld) [Mass fraction] 6.7 % Critically high 4.5-6.2 [facility] Comment on above: Performed By: #### A 1C #### [facility] [address] [address] [address] Jt Wiate TSHon 09-18-2022 TSH 3.693 uIU/mL Normal 0.358-3.740 [facility] Comment on above: Performed By: #### T SH, FT3 ####[facility] [address] [address]Dr. Jt Waite CBC AUTO DIFFon 04-03-2022 BASO # 0.0 103/ul Normal 0.0-0.1 [facility] Comment on above: Performed By: #### C BC #### [facility] [address] [place] [address] Dr. Jt Waite Basophils/100 WBC (Bld) 0.9 % Normal 0.2-2.0 [facility] Comment on above: Performed By: #### C BC #### [facility] [address] [place] [address] Dr. Jt Waite EO # 0.1 103/ul Normal 0.0-0.7 [facility] Comment on above: Performed By: #### C BC #### [facility] [address] [place] [address] Dr. Jt Waite Eosinophils/100 WBC (Bld) 3.3 % Normal 0.9-7.0 [facility] Comment on above: Performed By: #### C BC #### [facility] [address] [place] [address] Dr. Jt Waite Erythrocyte distribution width (RBC) [Ratio] 13.1 % Normal 11.0-15.0 [facility] Comment on above: Performed By: #### C BC #### [facility] [address] [place] [address] Dr. Jt Waite Hematocrit (Bld) [Volume fraction] 36.1 % Normal 36.0-48.0 [facility] Comment on above: Performed By: #### C BC #### [facility] [address] [place] [address] Dr. Jt Waite Hemoglobin (Bld) [Mass/Vol] 12.3 g/dL Normal 12.0-16.0 [facility] Comment on above: Performed By: #### C BC #### [facility] [address] [place] [address] Dr. Jt Waite IG # 0.01 10e3/ul Normal 0.00-0.03 [facility] Comment on above: Performed By: #### C BC #### [facility] [address] [place] [address] Dr. Jt Waite IG % 0.3 % Normal 0.0-0.5 [facility] Comment on above: Performed By: #### C BC #### [facility] [address] [place] [address] Dr. Jt Waite LYMPH # 1.2 103/ul Normal 1.2-3.8 [facility] Comment on above: Performed By: #### C BC #### [facility] [address] [place] [address] Dr. Jt Waite Lymphocytes/100 WBC (Bld) 35.4 % Normal 20.5-60.0 [facility] Comment on above: Performed By: #### C BC #### [facility] [address] [place] [address] Dr. Jt Waite MANUAL DIFF REQ NO Normal [facility] Comment on above: Performed By: #### C BC #### [facility] [address] [place] [address] Dr. Jt Waite MCH (RBC) [Entitic mass] 31.0 pg Normal 26.7-34.0 [facility] Comment on above: Performed By: #### C BC #### [facility] [address] [place] [address] Dr. Jt Waite MCHC (RBC) [Mass/Vol] 34.1 g/dL Normal 29.9-35.2 [facility] Comment on above: Performed By: #### C BC #### [facility] [address] [place] [address] Dr. Jt Waite MCV (RBC) [Entitic vol] 90.9 fL Normal 81.0-99.0 [facility] Comment on above: Performed By: #### C BC #### [facility] [address] [place] [address] Dr. Jt Waite MONO # 0.3 103/ul Normal 0.3-0.8 [facility] Comment on above: Performed By: #### C BC #### [facility] [address] [place] [address] Dr. Jt Waite Monocytes/100 WBC (Bld) 9.3 % Normal 1.7-12.0 [facility] Comment on above: Performed By: #### C BC #### [facility] [address] [place] [address] Dr. Jt Waite NEUT # 1.7 103/ul Normal 1.4-6.5 [facility] Comment on above: Performed By: #### C BC #### [facility] [address] [place] [address] Dr. Jt Waite Neutrophils/100 WBC (Bld) 50.8 % Normal 43.0-75.0 [facility] Comment on above: Performed By: #### C BC #### [facility] [address] [place] [address] Dr. Jt Waite Platelet mean volume (Bld) [Entitic vol] 10.2 fL Normal 9.5-13.5 [facility] Comment on above: Performed By: #### C BC #### [facility] [address] [place] [address] Dr. Jt Waite PLT 96 103/ul Critically low 150-450 [facility] Comment on above: Performed By: #### C BC #### [facility] [address] [place] [address] Dr. Jt Waite RBC 3.97 106/ul Critically low 4.20-5.40 [facility] Comment on above: Performed By: #### C BC #### [facility] [address] [place] [address] Dr. Jt Waite WBC 3.3 103/ul Critically low 4.0-11.0 [facility] Comment on above: Performed By: #### C BC #### [facility] [address] [place] [address] Dr. Jt Waite GLYCOHEMOGLOBIN A1Con 2021 ADA RECOMMENDATION SEE BELOW Normal [facility] Comment on above: Result Comment: ADA RECOMMENDED LIMIT 4.0 - 6.0 ADA THERAPEUTIC TARGET < 7.0 ACTION SUGGESTED > 7.0 Performed By: #### A 1C #### [facility] [address] [place] [address] Dr. Jt Waite Glucose [Mass/Vol] 120 mg/dL Normal [facility] Comment on above: Performed By: #### A 1C #### [facility] [address] [place] [address] Dr. Jt Waite HbA1c (Bld) [Mass fraction] 5.8 % Normal 4.5-6.2 [facility] Comment on above: Performed By: #### A 1C #### [facility] [address] [place] [address] Dr. Jt Waite LIPID PROFILEon 04-03-2022 CHOL-HDL RATIO NORM SEE BELOW Normal [facility] Comment on above: Result Comment: 3.3 - 4.4 LOW RISK 4.4 - 7.1 AVERAGE RISK 7.1 - 11.0 MODERATE RISK >11.0 HIGH RISK Performed By: #### C MP, LIPID #### [facility] [address] [place] [address] Dr. Jt Waite Cholesterol [Mass/Vol] 133 mg/dL Normal <=200 [facility] Comment on above: Performed By: #### C MP, LIPID #### [facility] [address] [place] [address] Dr. Jt Waite Cholesterol in HDL [Mass/Vol] 37 mg/dL Critically low 40-60 [facility] Comment on above: Performed By: #### C MP, LIPID #### [facility] [address] [address] [address] Jt Waite Cholesterol in LDL [Mass/Vol] 81.0 mg/dL Normal [facility] Comment on above: Performed By: #### C MP, LIPID #### [facility] [address] [address] [address] Jt Waite Cholesterol.total/ Cholesterol in HDL [Mass ratio] 3.6 {ratio} Normal [facility] Comment on above: Performed By: #### C MP, LIPID #### [facility] [address] [address] [address] Jt Waite HDL NORMAL > or = 60 mg/dl - LO W CARDIOVASCULAR RISK <40 mg/dl - HIGH CARDIOVASCULAR RISK Normal [facility] Comment on above: Performed By: #### C MP, LIPID #### [facility] [address] [place] [address] Dr. Jt Waite LDL CALC NORMAL SEE BELOW Normal [facility] Comment on above: Result Comment: <100 mg/dl OPTIMAL 100 - 129 mg/dl NEAR OR ABOVE OPTIMAL 130 - 159 mg/dl BORDERLINE HIGH 160 - 189 mg/dl HIGH >190 mg/dl VERY HIGH Performed By: #### C MP, LIPID #### [facility] [address] [address] [address] Jt Waite Triglyceride [Mass/Vol] 75 mg/dL Normal <=150 [facility] Comment on above: Performed By: #### C MP, LIPID #### [facility] [address] [place] [address] Dr. Jt Waite VLDL CALC 15.0 mg/dL Normal [facility] Comment on above: Performed By: #### C MP, LIPID #### [facility] [address] [address] [address] Jt Waite PROF 14(COMP METB)on 022 Albumin [Mass/Vol] 3.4 g/dL Normal 3.4-5.0 [facility] Comment on above: Performed By: #### C MP, LIPID #### [facility] [address] [place] [address] Dr. Jt Waite Albumin/Globulin [Mass ratio] 0.9 {ratio} Normal [facility] Comment on above: Performed By: #### C MP, LIPID #### [facility] [address] [place] [address] Dr. Jt Waite ALP [Catalytic activity/Vol] 82 U/L Normal 46-116 [facility] Comment on above: Performed By: #### C MP, LIPID #### [facility] [address] [place] [address] Dr. Jt Waite ALT [Catalytic activity/Vol] 24 U/L Normal 14-59 [facility] Comment on above: Performed By: #### C MP, LIPID #### [facility] [address] [place] [address] Dr. Jt Waite Anion gap [Moles/Vol] 13.1 mmol/L Normal [facility] Comment on above: Performed By: #### C MP, LIPID #### [facility] [address] [place] [address] Dr. Jt Waite AST [Catalytic activity/Vol] 31 U/L Normal 15-37 [facility] Comment on above: Performed By: #### C MP, LIPID #### [facility] [address] [place] [address] Dr. Jt Waite Bilirubin [Mass/Vol] 1.0 mg/dL Normal 0.2-1.0 [facility] Comment on above: Performed By: #### C MP, LIPID #### [facility] [address] [place] [address] Dr. Jt Waite Calcium [Mass/Vol] 9.1 mg/dL Normal 8.5-10.1 [facility] Comment on above: Performed By: #### C MP, LIPID #### [facility] [address] [place] [address] Dr. Jt Waite Chloride [Moles/Vol] 105 mmol/L Normal 98-107 [facility] Comment on above: Performed By: #### C MP, LIPID #### [facility] [address] [place] [address] Dr. Jt Waite CO2 [Moles/Vol] 27.4 mmol/L Normal 21.0-32.0 [facility] Comment on above: Performed By: #### C MP, LIPID #### [facility] [address] [address] [address] Jt Waite Creatinine [Mass/Vol] 1.03 mg/dL Critically high 0.55-1.02 [facility] Comment on above: Performed By: #### C MP, LIPID #### [facility] [address] [address] [address] Jt Waite EGFR-AF NIUEAN >60 Normal >=60 [facility] Comment on above: Performed By: #### C MP, LIPID #### [facility] [address] [address] [address] Jt Waite EGFR-NON AF NIUEAN 53 mL/min/1.73m2 Critically low >=60 [facility] Comment on above: Performed By: #### C MP, LIPID #### [facility] [address] [address] [address] Jt Waite Globulin (S) [Mass/Vol] 3.7 g/dL Normal [facility] Comment on above: Performed By: #### C MP, LIPID #### [facility] [address] [address] [address] Jt Waite Glucose [Mass/Vol] 100 mg/dL Normal 74-106 [facility] Comment on above: Performed By: #### C MP, LIPID #### [facility] [address] [address] [address] Jt Waite Potassium [Moles/Vol] 3.5 mmol/L Normal 3.5-5.1 [facility] Comment on above: Performed By: #### C MP, LIPID #### [facility] [address] [address] [address] Jt Waite Protein [Mass/Vol] 7.1 g/dL Normal 6.4-8.2 [facility] Comment on above: Performed By: #### C MP, LIPID #### [facility] [address] [address] [address] Jt Waite Sodium [Moles/Vol] 142 mmol/L Normal 136-145 [facility] Comment on above: Performed By: #### C MP, LIPID #### [facility] [address] [place] [address] Dr. Jt Waite Urea nitrogen [Mass/Vol] 23.0 mg/dL Critically high 7.0-18.0 [facility] Comment on above: Performed By: #### C MP, LIPID #### [facility] [address] [place] [address] Dr. Jt Waite Urea nitrogen/Creatinin e [Mass ratio] 22.3 mg/mg Normal [facility] Comment on above: Performed By: #### C MP, LIPID #### [facility] [address] [place] [address] Dr. Jt Waite D-DIMERon 03-15-2022 D-DIMER 0.32 mg/L FEU Normal <=0.59 [facility] Comment on above: Performed By: #### D DIM #### [facility] [address] [place] [address] Dr. Jt Waite D-DIMER COMMENTS SEE BELOW Normal [facility] Comment on above: Result Comment: Incr [...] hospitalization. Performed By: #### D DIM #### [facility] [address] [place] [address] Dr. Jt Waite ECHOCARDIO M/2D COMPLETEon 0 03-12-2022 ECHOCARDIO M/2D COMPLETE Patient: MISA SANTOS Exam Date: 03/12/2022 : 1955 Gender:F Ordering : HOLLY VALDOVINOS Admission #: [id number] Family : Order #: [id number] CLICK HERE TO VIEW EXAM ECHOCARDIOGRAM REPORT [...] Area(A4C): 25.20 cm2 Left Atrium Systolic Volume(A2C): 59600 mm3 Left Atrium Systolic Volume(A4C): 66230 mm3 Mitral Valve MV E to A [...] Perdue M.D. on 03/12/2022 at 19:30 Normal [facility] GLYCOHEMOGLOBIN A1Con 2020 ADA RECOMMENDATION ADA THERAPEUTIC TARG ET 6.0 - 7.0 ACTION SUGGESTED > 7.0 Normal [facility] Comment on above: Performed By: #### A 1C #### [facility] [address] [place] [address] Dr. Jt Waite Glucose [Mass/Vol] 140 mg/dL Normal [facility] Comment on above: Performed By: #### A 1C #### [facility] [address] [address] [address] Jt Waite HbA1c (Bld) [Mass fraction] 6.5 % Critically high <=6.0 [facility] Comment on above: Performed By: #### A 1C #### [facility] [address] [place] [address] Dr. Jt Waite Vital Signs Date Time Vital Sign Value Performing Clinician Facility 03-15-2024 09:57-0400 Body temperature 97.52 [degF] Mhd Eloisa [facility] 03-15-2024 09:57-0400 Diastolic blood pressure 82 mm[Hg] Mhd Al-Marrawi [facility] 03-15-2024 09:57-0400 Heart rate 64 /min Mhd Al-Marrawi [facility] 03-15-2024 09:57-0400 Mean blood pressure 94 mm[Hg] Mhd Al-Marrawi [facility] 03-15-2024 09:57-0400 Respiratory rate 16 /min Mhd Al-Marrawi [facility] 03-15-2024 09:57-0400 SaO2% (BldA) [Mass fraction] 93 % Mhd Al-Marrawi [facility] 03-15-2024 09:57-0400 Systolic blood pressure 118 mm[Hg] Mhd Al-Marrawi [facility] 03-02-2024 12:19-0400 Blood Pressure Location Cabrera Sarmini [facility] 03-02-2024 12:19-0400 Diastolic blood pressure 84 mm[Hg] Cabrera Sarmini [facility] 03-02-2024 12:19-0400 Heart rate 78 /min Cabrera Sarmini [facility] 03-02-2024 12:19-0400 Respiratory rate 18 /min Cabrera Sarmini [facility] 03-02-2024 12:19-0400 Systolic blood pressure 120 mm[Hg] Cabrera Sarmini [facility] 02-06-2024 11:25-0400 Blood Pressure Location Cabrera Sarmini [facility] 02-06-2024 11:25-0400 Diastolic blood pressure 72 mm[Hg] Cabrera Sarmini [facility] 02-06-2024 11:25-0400 Heart rate 54 /min Cabrera Sarmini [facility] 02-06-2024 11:25-0400 Mean blood pressure 90 mm[Hg] Cabrera Sarmini [facility] 02-06-2024 11:25-0400 Respiratory rate 14 /min Cabrera Sarmini [facility] 02-06-2024 11:25-0400 SaO2% (BldA) [Mass fraction] 96 % Cabrera Sarmini [facility] 02-06-2024 11:25-0400 Systolic blood pressure 125 mm[Hg] Cabrera Sarmini [facility] 02-06-2024 11:15-0400 Blood Pressure Location Cabrera Sarmini [facility] 02-06-2024 11:15-0400 Diastolic blood pressure 68 mm[Hg] Cabrera Sarmini [facility] 02-06-2024 11:15-0400 Heart rate 58 /min Cabrera Sarmini [facility] 02-06-2024 11:15-0400 Mean blood pressure 84 mm[Hg] Cabrera Sarmini [facility] 02-06-2024 11:15-0400 Respiratory rate 27 /min Cabrera Sarmini [facility] 02-06-2024 11:15-0400 SaO2% (BldA) [Mass fraction] 96 % Cabrera Sarmini [facility] 02-06-2024 11:15-0400 Systolic blood pressure 115 mm[Hg] Cabrera Sarmini [facility] 02-06-2024 11:10-0400 Blood Pressure Location Cabrera Sarmini [facility] 02-06-2024 11:10-0400 Diastolic blood pressure 72 mm[Hg] Cabrera Sarmini [facility] 02-06-2024 11:10-0400 Heart rate 51 /min Cabrera Sarmini [facility] 02-06-2024 11:10-0400 Mean blood pressure 85 mm[Hg] Cabrera Sarmini [facility] 02-06-2024 11:10-0400 Respiratory rate 18 /min Cabrera Sarmini [facility] 02-06-2024 11:10-0400 SaO2% (BldA) [Mass fraction] 94 % Cabrera Sarmini [facility] 02-06-2024 11:10-0400 Systolic blood pressure 112 mm[Hg] Cabrera Sarmini [facility] 02-06-2024 11:03-0400 Body temperature 97.34 [degF] Cabrera Sarmini [facility] 02-06-2024 10:55-0400 Respiratory rate 17 /min Cabrera Sarmini [facility] 02-06-2024 10:50-0400 Respiratory rate 18 /min Cabrera Sarmini [facility] 02-06-2024 09:23-0400 Body temperature 97.52 [degF] Cabrera Marcelmini [facility] 12-15-2023 10:11-0500 Body temperature 97.7 [degF] Mhd Al-Marrawi [facility] 12-15-2023 10:11-0500 Diastolic blood pressure 55 mm[Hg] Mhd Al-Marrawi [facility] 12-15-2023 10:11-0500 Heart rate 53 /min Mhd Al-Marrawi [facility] 12-15-2023 10:11-0500 Mean blood pressure 71 mm[Hg] Mhd Al-Marrawi [facility] 12-15-2023 10:11-0500 Respiratory rate 20 /min Mhd Al-Marrawi [facility] 12-15-2023 10:11-0500 SaO2% (BldA) [Mass fraction] 96 % Mhd Al-Marrawi [facility] 12-15-2023 10:11-0500 Systolic blood pressure 104 mm[Hg] d Al-Marrawi [facility] 10-01-2023 12:37-0500 Blood Pressure Location [facility]lie [facility] 10-01-2023 12:37-0500 Body temperature 96.8 [degF] Ashlie Mead [facility] 10-01-2023 12:37-0500 Diastolic blood pressure 79 mm[Hg] Ashlie Valdezmetz [facility] 10-01-2023 12:37-0500 Heart rate 55 /min Ashlie Mead [facility] 10-01-2023 12:37-0500 Systolic blood pressure 119 mm[Hg] Ashlie Valdezmetz [facility] 07-31-2023 09:49-0400 Blood Pressure Location Ashlietrace ValdezBoston [facility] 07-31-2023 09:49-0400 Body temperature 96.8 [degF] Ashlie Valdezmetz [facility] 07-31-2023 09:49-0400 Diastolic blood pressure 67 mm[Hg] Ashlie Valdezmetz [facility] 07-31-2023 09:49-0400 Heart rate 59 /min Ashlie Mead [facility] 07-31-2023 09:49-0400 Systolic blood pressure 123 mm[Hg] Ashlie Valdezmetz [facility] 06-24-2023 10:12-0400 Heart rate 48 /min Mhd Al-Marrawi [facility] 06-24-2023 10:12-0400 SaO2% (BldA) [Mass fraction] 96 % Mhd Al-Marrawi [facility] 06-24-2023 10:12-0400 Blood Pressure Location Mhd Al-Marrawi [facility] 06-24-2023 10:12-0400 Diastolic blood pressure 61 mm[Hg] Mhd Al-Marrawi [facility] 06-24-2023 10:12-0400 Mean blood pressure 79 mm[Hg] Mhd Al-Marrawi [facility] 06-24-2023 10:12-0400 Systolic blood pressure 115 mm[Hg] Mhd Al-Marrawi [facility] 06-24-2023 10:11-0400 Body temperature 97.88 [degF] Mhd Al-Marrawi [facility] 06-24-2023 10:11-0400 Respiratory rate 17 /min Mhd Al-Marrawi [facility] 06-24-2023 09:04-0400 Heart rate 58 /min Mhd Al-Marrawi [facility] 06-24-2023 09:04-0400 SaO2% (BldA) [Mass fraction] 96 % Mhd Al-Marrawi [facility] 06-24-2023 09:04-0400 Respiratory rate 18 /min Mhd Al-Marrawi [facility] 06-24-2023 09:04-0400 Blood Pressure Location Mhd Al-Marrawi [facility] 06-24-2023 09:04-0400 Diastolic blood pressure 76 mm[Hg] Mhd Al-Marrawi [facility] 06-24-2023 09:04-0400 Mean blood pressure 94 mm[Hg] Mhd Al-Marrawi [facility] 06-24-2023 09:04-0400 Systolic blood pressure 131 mm[Hg] Mhd Al-Marrawi [facility] 06-17-2023 10:00-0400 Blood Pressure Location Mhd Al-Marrawi [facility] 06-17-2023 10:00-0400 Body temperature 98.42 [degF] Mhd Al-Marrawi [facility] 06-17-2023 10:00-0400 Diastolic blood pressure 74 mm[Hg] Mhd Al-Marrawi [facility] 06-17-2023 10:00-0400 Heart rate 49 /min Mhd Al-Marrawi [facility] 06-17-2023 10:00-0400 Mean blood pressure 92 mm[Hg] Mhd Al-Marrawi [facility] 06-17-2023 10:00-0400 Respiratory rate 18 /min Mhd Al-Marrawi [facility] 06-17-2023 10:00-0400 SaO2% (BldA) [Mass fraction] 95 % Mhd Al-Marrawi [facility] 06-17-2023 10:00-0400 Systolic blood pressure 128 mm[Hg] Mhd Al-Marrawi [facility] 06-04-2023 13:02-0400 Blood Pressure Location Cabrera Sarmini [facility] 06-04-2023 13:02-0400 Diastolic blood pressure 70 mm[Hg] Cabrera Sarmini [facility] 06-04-2023 13:02-0400 Heart rate 76 /min Cabrera Sarmini [facility] 06-04-2023 13:02-0400 Respiratory rate 16 /min Cabrera Sarmini [facility] 06-04-2023 13:02-0400 Systolic blood pressure 122 mm[Hg] Cabrera Sarmini [facility] 05-13-2023 10:00-0400 Blood Pressure Location Mhd Al-Marrawi [facility] 05-13-2023 10:00-0400 Body temperature 97.52 [degF] d Al-Marrawi [facility] 05-13-2023 10:00-0400 Diastolic blood pressure 77 mm[Hg] d Al-Marrawi [facility] 05-13-2023 10:00-0400 Heart rate 56 /min [facility] Al-Marrawi [facility] 05-13-2023 10:00-0400 Mean blood pressure 95 mm[Hg] [facility] 05-13-2023 10:00-0400 SaO2% (BldA) [Mass fraction] 96 % [facility] 05-13-2023 10:00-0400 Systolic blood pressure 130 mm[Hg] d Al-Marrawi [facility] 04-29-2023 10:00-0400 Blood [facility] 04-29-2023 10:00-0400 Body temperature 98.06 [degF] [facility]-29-[facility]23 10:00-0400 Diastolic blood pressure 72 mm[Hg] [facility]-29-[facility]23 10:00-0400 Heart rate 53 /min [facility] 04-29-2023 10:00-0400 Mean blood pressure 89 mm[Hg] Ortiz Rodriguezk[facility] 04-29-2023 10:00-0400 Respiratory rate 18 /min [facility] 04-29-2023 10:00-0400 SaO2% (BldA) [Mass fraction] 96 % [facility] 04-29-2023 10:00-0400 Systolic blood pressure 122 mm[Hg] Ortiz Alexander [facility] Encounters Encounter Date Encounter Type Care Provider Facility Start: 08-31-2024 ambulatory MD Willian Barrios Facil ity:[facility] Start: 06-08-2024 ambulatory MD Willian Barrios Facil ity:[facility] Start: 05-31-2024 ambulatory MD Willian Barrios Facil ity:CD:[id number] Start: 05-21-2024 End: 05-21-2024 ambulatory HUMPHREY A NATHANAEL Facility:[facility] Start: 04-12-2024 End: 04-12-2024 ambulatory MD Willian Barrios Facility:[facility] Start: 04-12-2024 End: 04-12-2024 Patient encounter procedure Willian Barrios [facility] Start: 03-29-2024 End: 03-29-2024 ambulatory Willian Barrios Facility:[facility] Start: 03-15-2024 End: 03-15-2024 ambulatory Mhd Yaser Al-Marrawi Facility:[facility] Start: 03-15-2024 End: 03-15-2024 Patient encounter procedure Mhd Yaser Al-Marrawi [facility] Start: 03-09-2024 End: 03-09-2024 ambulatory Mhd Yaser Al-Marrawi Facility:[facility] Start: 03-09-2024 End: 03-09-2024 Patient encounter procedure Mhd Yaser Al-Marrawi [facility] Start: 03-02-2024 End: 03-02-2024 ambulatory Cabrera Talal Sarmini Facility:[facility] Start: 03-02-2024 End: 03-02-2024 Patient encounter procedure Cabrera Talal Sarmini [facility] Start: 02-06-2024 End: 02-06-2024 ambulatory Cabrera Ray Canoi Facility:[facility] Start: 02-06-2024 End: 02-06-2024 Patient encounter procedure Deborah Rashid [facility] Start: 01-02-2024 End: 01-02-2024 ambulatory SURVEY ANALYST Shalini Baumann Facility:[facility] [place] Start: 12-15-2023 End: 12-15-2023 ambulatory Mhd Yaser Al-Marrawi Facility:[facility] Start: 12-15-2023 End: 12-15-2023 Patient encounter procedure Mhd Yaser Al-Marrawi [facility] Start: 12-15-2023 End: 12-15-2023 ambulatory Mhd Yaser Al-Marrawi Facility:[facility] Start: 12-15-2023 End: 12-15-2023 Patient encounter procedure Mhd Yaser Al-Marrawi [facility] Start: 10-01-2023 End: 10-01-2023 ambulatory Ashlie Mead Facility:[facility] Start: 10-01-2023 End: 10-01-2023 Patient encounter procedure Ashlie Mead [facility] Start: 09-29-2023 End: 09-29-2023 ambulatory Willian Barrios Facility:[facility] [place] Start: 09-24-2023 End: 09-24-2023 ambulatory Willian Barrios Facility:[facility] [place] Start: 09-17-2023 End: 09-17-2023 ambulatory Willian Barrios Facility:[facility] [place] Start: 09-16-2023 End: 09-16-2023 ambulatory Willian Barrios Facility:[facility] [place] Start: 09-15-2023 End: 09-15-2023 ambulatory Mhd Yaser Al-Marrawi Facility:[facility] Start: 09-15-2023 End: 09-15-2023 Patient encounter procedure Mhd Yaser Al-Marrawi [facility] Start: 08-29-2023 End: 08-29-2023 ambulatory [facility] Start: 07-31-2023 End: 07-31-2023 ambulatory Ashlie A [place] Facility:[facility] Start: 07-31-2023 End: 07-31-2023 Patient encounter procedure Ashlie A [place] [facility] Start: 07-30-2023 End: 07-30-2023 ambulatory Willian Barrios Facility:[facility] Start: 07-28-2023 End: 08-25-2023 ambulatory Willian Barrios Facility:CD:[id number] Start: 07-24-2023 End: 07-25-2023 ambulatory Lucas Bates Facility:[facility] Start: 07-22-2023 End: 07-22-2023 ambulatory Mhd Yaser Steve-Lars Facility:[facility] Start: 06-30-2023 End: 06-30-2023 Lab Drop off Willian Barrios [facility] Start: 06-30-2023 End: 06-30-2023 ambulatory Willian Barrios Facility:[facility] Start: 06-24-2023 End: 06-24-2023 ambulatory Mhd Yaser Al-Marrawi Facility:[facility] Start: 06-24-2023 End: 06-24-2023 Patient encounter procedure Mhd Yaser Al-Marrawi [facility] Start: 06-17-2023 End: 06-17-2023 ambulatory Mhd Yaser Al-Marrawi Facility:[facility] Start: 06-17-2023 End: 06-17-2023 Patient encounter procedure Mhd Yaser Al-Marrawi [facility] Start: 06-12-2023 End: 06-12-2023 ambulatory Mhd Yaser Al-Marrawi Facility:[facility] Start: 06-12-2023 End: 06-12-2023 Patient encounter procedure Mhd Yaser Al-Marrawi [facility] Start: 06-04-2023 End: 06-04-2023 ambulatory Cabrera Talal Sarmini Facility:[facility] Start: 06-04-2023 End: 06-04-2023 Patient encounter procedure Cabrera Talal Sarmini [facility] Start: 05-29-2023 End: 05-29-2023 ambulatory [facility] Start: 05-27-2023 End: 05-27-2023 ambulatory Mhd Yaser Al-Marrawi Facility:[facility] Start: 05-27-2023 End: 05-27-2023 Patient encounter procedure Mhd Yaser Al-Marrawi [facility] Start: 05-13-2023 End: 05-13-2023 ambulatory Mhd Yaser Al-Marrawi Facility:[facility] Start: 05-13-2023 End: 05-13-2023 Patient encounter procedure Mhd Yaser Al-Marrawi [facility] Start: 05-13-2023 End: 05-13-2023 ambulatory Mhd Yaser Al-Marrawi Facility:[facility] Start: 05-13-2023 End: 05-13-2023 Patient encounter procedure Mhd Yaser Al-Marrawi [facility] Start: 04-29-2023 End: 04-29-2023 ambulatory Mhd Rositakatlyn Wilson-Lars Facility:[facility] Start: 04-29-2023 End: 04-29-2023 ambulatory Mhd Rositakatlyn Wilson-Lars Facility:[facility] Start: 04-29-2023 End: 04-29-2023 Patient encounter procedure Ortiz Alexander [facility] Start: 03-17-2023 End: 03-17-2023 Lab Drop off Willian Barrios [facility] Start: 09-18-2022 End: 09-19-2022 ambulatory [...] End: 10-27-2018 Patient encounter procedure DEFAULT PHYSICIAN Facility:[facility] Procedures Date Procedure Procedure Detail Performing Clinician Start: 02-06-2024 Colonoscopy Deborah alicia Start: 07-24-2023 Colonoscopy Ashlie alvarado Start: 06-24-2023 Bone marrow sampling Lenny Amin Comment on above: ct section Willian Barrios Comment on above: X1 Decompression of med jewels nerve Willian Barrios Total abdominal hysterectomy with bilateral salpingo-oophorectomy Willian Barrios Plan of Treatment Date Care Activity Detail Author Start: 08-31-2024 ambulatory Facility:[facility] Immunizations Immunization Date Immunization Notes Care Provider Rickey danglaura 12-19-2023 SARS-CoV-2 mRNA (tozinameran 5y-11y) vaccine Deborah Rashid [facility] Comment on above: Result Comment: pfiz er 07-28-2023 influenza virus vaccine, unspecified formulation Ashlie Mead [facility] 07-28-2023 SARS-CoV-2 mRNA (tozinameran 5y-11y) vaccine Mariah Amin [facility] Comment on above: Result Comment: Covi d 19 pfizer 07-24-2022 influenza virus vaccine, unspecified formulation Willian Barrios [facility] 07-24-2022 SARS-CoV-2 (COVID-19 ) [id number] Willian Barrios [facility] 01-15-2022 SARS-CoV-2 mRNA (pdpscbqeuhw-hjxr-hzfid se) vaccine Willian Barrois [facility] 07-24-2021 influenza virus vaccine, unspecified formulation Willian Barrios [facility] 07-10-2021 SARS-CoV-2 (COVID-19 ) mRNA BNT-162b2 vax Willian Barrios [facility] 01-02-2021 SARS-CoV-2 (COVID-19 ) mRNA BNT-162b2 vax Willian Barrios [facility] 12-11-2020 SARS-CoV-2 (COVID-19 ) mRNA BNT-162b2 vax Willian Barrios [facility] 06-21-2020 influenza virus vaccine, unspecified formulation Willian Barrios [facility] 06-21-2020 pneumococcal polysaccharide vaccine, 23 valent Willian Barrios [facility] 07-13-2019 influenza virus vaccine, unspecified formulation Willian Barrios [facility] 07-10-2018 influenza virus vaccine, unspecified formulation Willian Barrios [facility] 11-20-2016 pneumococcal polysaccharide vaccine, 23 valent Willian Barrios [facility] NEGATED: Highlighted row has not occurred!06-30-2023 influenza virus vaccine, unspecified formulation Willian Barrios [facility] Payers Date Payer Category Payer Private Health Insurance [facility] [id number] 1961 Medicare [id number] 1961 Unknown [id number] 1955 Unknown [id number] 2.16.8 40.1.556374.3.579.2.647 1953 Unknown [id number] 2.16.84 0.1.653743.3.579.2.59 1953 Unknown [id number] 2.16.84 0.1.631370.3.579.2.593 1953 Unknown [id number] 2.16.84 0.1.800620.3.579.2.593 1953 Unknown [id number] 2.16.84 0.1.169699.3.579.2.593 1953 Unknown [id number] 2.16.84 0.1.157045.3.579.2.593 1953 Unknown [id number] 2.16.84 0.1.516246.3.579.2.593 1953 Unknown [id number] 2.16.84 0.1.301189.3.579.2.593 1953 Unknown [id number] 2.16.8 40.1.117635.3.579.2.727 1953 Unknown [id number] 2.16.8 40.1.177371.3.579.2.727 1953 Unknown [id number] 2.16.8 40.1.921583.3.579.2.727 1953 Unknown [id number] 2.16.8 40.1.666449.3.579.2.727 1953 Unknown [id number] 2.16.8 40.1.164291.3.579.2.727 1953 Unknown [id number] 2.16.8 40.1.513366.3.579.2.727 1953 Unknown [id number] 2.16.8 40.1.966510.3.579.2.727 1953 Unknown [id number] 2.16.8 40.1.141471.3.579.2.727 1953 Unknown [id number] 2.16.8 40.1.171502.3.579.2.727 1953 Unknown [id number] 2.16.8 40.1.274571.3.579.2.727 1953 Unknown [id number] 2.16.8 40.1.840105.3.579.2.727 1953 Unknown [id number] 2.16.8 40.1.750923.3.579.2.727 1953 Unknown [id number] 2.16.8 40.1.792162.3.579.2.727 1953 Unknown [id number] 2.16.8 40.1.416522.3.579.2.72 1953 Unknown [id number] 2.16.8 40.1.944449.3.579.2.727 1953 Unknown [id number] 2.16.8 40.1.449084.3.579.2. 1953 Unknown [id number] 2.16.8 40.1.804330.3.579.2. 1953 Unknown [id number] 2.16.8 40.1.589080.3.579.2. 1953 Unknown [id number] 2.16.8 40.1.777334.3.579.2. 1953 Unknown [id number] 2.16.8 40.1.174006.3.579.2. 1953 Unknown [id number] 2.16.8 40.1.889571.3.579.2. 1953 Unknown [id number] 2.16.8 40.1.348363.3.579.2. 1953 Unknown [id number] 2.16.8 40.1.915861.3.579.2 1953 Unknown [id number] 2.16.8 40.1.410234.3.579.2. 1953 Unknown [id number] 2.16.8 40.1.773447.3.579.2. 1953 Unknown [id number] 2.16.8 40.1.891909.3.579.2. 1953 Unknown [id number] 2.16.8 40.1.293626.3.579.2. 1953 Unknown [id number] 2.16.8 40.1.276094.3.579.2. 1953 Unknown [id number] 2.16.8 40.1.686947.3.579.2 1953 Unknown [id number] 2.16.8 40.1.341822.3.579.2.727 1953 Unknown [id number] 2.16.8 40.1.744536.3.579.2.727 1953 Unknown [id number] 2.16.8 40.1.714777.3.579.2.727 1953 Unknown [id number] 2.16.8 40.1.139312.3.579.2.727 1953 Unknown [id number] 2.16.8 40.1.882457.3.579.2.727 1953 Unknown [id number] 2.16.8 40.1.767456.3.579.2.727 1953 Unknown [id number] 2.16.8 40.1.280412.3.579.2.727 Unknown Social History Date Type Detail Facility Start: 03-17-2023 End: 03-29-2024 Tobacco smoking status Never smoked tobacco (finding) [facility] Comment on above: denies Tobacco smoking status [facility] Comment on above: denies Sex Assigned At Female [facility] Medical Equipment Procedure Code Equipment Code Equipment Origin al Text Equipment Identifier Dates [facility] Prescription, See Instructions, 100 strip(s), 0, one touch ultra test strips Test sugars once a day Dx E11.9, [facility]/pharmacy #[id number], Supply Start: 02-06-2023 [facility] Prescription, See Instructions, 100 strip(s), 0, one touch ultra test strips Test sugars once a day Dx E11.9, [facility] #[id number], Supply Start: 02-06-2023 [facility] Prescription, See Instructions, 100 strip(s), 0, one touch ultra test strips Test sugars once a day Dx E11.9, [facility]/pharmacy #[id number], Supply, 150, cm, 04/29/23 10:06:00 EDT, Height/Length Dosing, 112.3, kg, 04/29/23 10:06:00 EDT, Weight Dosing Start: 05-06-2023 [facility] Prescription, See Instructions, 100 strip(s), 0, one touch ultra test strips Test sugars once a day Dx E11.9, [id number], Supply, 150, cm, 04/29/23 10:06:00 EDT, Height/Length Dosing, 112.3, kg, 04/29/23 10:06:00 EDT, Weight Dosing Start: 05-06-2023 [facility] Prescription, See Instructions, 100 strip(s), 0, one touch ultra test strips Test sugars once a day Dx E11.9, [id number], Supply, 150, cm, 04/29/23 10:06:00 EDT, Height/Length Dosing, 112.3, kg, 04/29/23 10:06:00 EDT, Weight Dosing Start: 05-06-2023 [facility] Prescription, See Instructions, 100 strip(s), 0, one touch ultra test strips Test sugars once a day Dx E11.9, [id number], Supply, 150, cm, 04/29/23 10:06:00 EDT, Height/Length Dosing, 112.3, kg, 04/29/23 10:06:00 EDT, Weight Dosing Start: 05-06-2023 [facility] Prescription, See Instructions, 100 strip(s), 0, one touch ultra test strips Test sugars once a day Dx E11.9, [id number], Supply, 150, cm, 04/29/23 10:06:00 EDT, Height/Length Dosing, 112.3, kg, 04/29/23 10:06:00 EDT, Weight Dosing Start: 05-06-2023 [facility] Prescription, See Instructions, 100 strip(s), 0, one touch ultra test strips Test sugars once a day Dx E11.9, [id number], Supply, 150, cm, 04/29/23 10:06:00 EDT, Height/Length Dosing, 112.3, kg, 04/29/23 10:06:00 EDT, Weight Dosing Start: 05-06-2023 [facility] Prescription, See Instructions, 100 strip(s), 0, one touch ultra test strips Test sugars once a day Dx E11.9, [id number], Supply, 150, cm, 04/29/23 10:06:00 EDT, Height/Length Dosing, 112.3, kg, 04/29/23 10:06:00 EDT, Weight Dosing Start: 05-06-2023 [facility] Prescription, See Instructions, 100 strip(s), 0, one touch ultra test strips Test sugars once a day Dx E11.9, [id number], Supply, 150, cm, 04/29/23 10:06:00 EDT, Height/Length Dosing, 112.3, kg, 04/29/23 10:06:00 EDT, Weight Dosing Start: 05-06-2023 Unknown Unknown 07/24/23 Non Biological Unknown FDA Start: 07-24-2023 [facility] Prescription, See Instructions, 100 strip(s), 1, [...] 07/31/23 9:52:00 EDT, Weight Dosing Start: 08-21-2023 [facility] Prescription, See Instructions, 100 strip(s), 1, [...] 07/31/23 9:52:00 EDT, Weight Dosing Start: 08-21-2023 [facility] Prescription, See Instructions, 100 strip(s), 1, one touch test strips. Use to test blood sugars once a day Dx E11.9, [facility]/pharmacy #[id number], Supply, 150.8, cm, 07/31/23 9:52:00 [...] 07/31/23 9:52:00 EDT, Weight Dosing Start: 08-21-2023 [facility] Prescription, See Instructions, 100 strip(s), 1, one touch test strips. Use to test blood sugars once a day Dx E11.9, [facility]/pharmacy #[id number], Supply, 150.8, cm, 07/31/23 9:52:00 [...] 07/31/23 9:52:00 EDT, Weight Dosing Start: 08-21-2023 [facility] Prescription, See Instructions, 100 strip(s), 1, [...] 07/31/23 9:52:00 EDT, Weight Dosing Start: 08-21-2023 [facility] Prescription, See Instructions, 100 strip(s), 1, one touch test strips. Use to test blood sugars once a day Dx E11.9, [facility]/pharmacy #[id number], Supply, 150.8, cm, 07/31/23 9:52:00 EDT, [...] 02/06/24 9:13:00 EDT, Weight Dosing Start: 03-01-2024 [facility] Prescription, See Instructions, 100 strip(s), 1, [...] 02/06/24 9:13:00 EDT, Weight Dosing Start: 03-01-2024 [facility] Prescription, See Instructions, 100 strip(s), 1, [...] 02/06/24 9:13:00 EDT, Weight Dosing Start: 03-01-2024 [facility] Prescription, See Instructions, 100 strip(s), 1, one touch test strips. Use to test blood sugars once a day Dx E11.9, [facility]/pharmacy #[id number], Supply, 150.8, cm, 07/31/23 9:52:00 EDT, [...] 02/06/24 9:13:00 EDT, Weight Dosing Start: 03-01-2024 [facility] Prescription, See Instructions, 100 strip(s), 1, one touch test strips. Use to test blood sugars once a day Dx E11.9, [id number], Supply, 150.8, cm, 07/31/23 9:52:00 EDT, Height/Length Dosing, 112.7, kg, 07/31/23 9:52:00 EDT, Weight Dosing Start: 08-21-2023 Functional Status Date Assessment Result Facility 03-02-2024 Functional Status N/A [facility] 02-06-2024 Functional Status N/A [facility] 10-01-2023 Functional Status N/A [facility] 07-31-2023 Functional Status N/A [facility] 06-24-2023 Functional Status N/A [facility] 06-04-2023 Functional Status N/A [facility] Clinical Notes 04-18-2023 to 05-21-2024 Note Date [...] these instructions at home: Medicines ? Take tvmm-qpn-eeylyuw and prescription medicines only as told by [...] and water are not available, use hand desk editor. ? Avoid contact with people who have [...] away. Call yo (more content not included)... [facility] 03-15-2024 Hospital Discharg e instructions Patient Education [...] iron. Foods high in vitamin C include: ?[place] fruits, such as checo, oranges, and grapefruits. ?Berries. ?Felix peppers. ?Tomatoes. ?Broccoli. Do not follow a [...] iron supplement is right for you. Take bfkj-xfs-jpxoyld and prescription medicines only as told by your health care provider. Keep all follow-up visits. Where to find more information Learn more about preventing iron deficiency from: National Heart, Lung, and Blood [place]: www.nhlbi.nih.gov [place] [employer]: www.hematology.org Contact a health [...] provider. Document Revised: 11/06/2022 Document Reviewed: 11/06/2022 [employer] Patient Education [address] [employer] [address] 03/15/2024 10:23:50 Iron-Rich Diet Iron-Rich Diet Iron [...] vitamin C, such as leafy greens, potatoes, felix peppers, and tomatoes, with iron-rich foods. Grains Iron-fortified breakfast cereal. Iron-fortified whole-wheat bread. Enriched rice. Sprouted grains. Meats and other proteins Beef liver. Beef. Lisman. Chicken. Oysters. Shrimp. Tuna. Sardines. Chickpeas. Nuts. [...] Black tea. Red wine. Sweets and desserts Garland. Chocolate. Ice cream. Seasonings and condiments Basil. [...] provider. Document Revised: 09/10/2021 Document Reviewed: 09/10/2021 [employer] Patient Education [address] [employer] [address]. Follow Up Care 12/15/2023 10:48:25 With:Eloisa PATTEN, Mariah Davison, MED, ONC Address: When: Unknown Comments:Continue observation only for the low plt and low WBC for now. Call if bleeding or infections, fevers.Continue ferrous sulfate nehq-dcd-clwtbag 325 mg once daily.Return in 4 months with labs prior including CBC with differential CMP, B12, folate and iron studies. [facility] 02-09-2024 Note [id number] [facility] 02-06-2024 Evaluation + Plan note Extrac enid from: Title:ANES Post-operative Note - General Author: Jorge Luis Fang Jr., DO Date:02/06/24 Plan Transfer/Discharge: Transfer/Discharge Discharge when meets criteria ( From PACU to Ambulatory Surgery Unit, and To home ). Extracted from: Title:ANES Pre-operative Note - Endo Author:Jorge Luis Rodas Jr., DO Date:02/06/24 Plan [place] [employer] Anesthesiologists (ASA) physical status classification: Class III. Anesthetic Preoperative Plan: Anesthesia General, and -TIVA. Future Appointments Appointment Date:03/15/2024 10:00:00 AM Scheduled Provider:Eloisa PATTEN, Mariah Davison Location:.ONCOLOGY Appointment Type:ONC Office Visit 30 (FT) Appointment Date:03/29/2024 10:30:00 AM Scheduled Provider:Willian Barrios MD Location:[facility] Appointment Type: Open Appointment Date:08/31/2024 11:00:00 AM Scheduled Provider: Location:[facility] Appointment Type: Medicare Wellness Subsequent Future Scheduled Tests Laboratory* CBC w/ Auto Diff 03/08/24 * CBC w/ Auto Diff 10/01/23 * CBC w/ Auto Diff 07/31/23 * Comprehensive Metabolic Panel 03/08/24 * Ferritin 03/08/24 * Iron Level 03/08/24 * Iron Percent Saturation 03/08/24 * Transferrin 03/08/24 Radiology* MA Mamm Screen w/CAD if perf and 3D Michael 03/17/23 [facility]04-26-2024 Hospital Discharge instructions Patient Education 02/06/2024 11:09:28 Colonoscopy, Care After Surgery Salam (CUSTOM) Colonoscopy Care After Surgery Please read the instructions outlined below and refer to this sheet in the next few weeks. These discharge instructions provide you with general information on caring [facility] Your doctor may also give you specific [...] hard liquor (44 mL). General instructions Take rqsp-axt-xrzxqzf and prescription medicines only as told by [...] provider. Document Revised: 01/17/2021 Document Reviewed: 01/17/2021 [employer] Patient Education [address] [employer] [address] Follow Up Care 10/01/2023 13:21:09 With:Deborah Rashid Address: [address] [place] [address] [address] [phone] [facility] (1) When:1 to 2 weeks Comments:Call for any problems. [facility]02-08-2024 Hospital Discharge instructions Follow Up Care 11/20/2023 15:36:43 With:Eloisa PATTEN, Mariah Davison, [facility], [facility] Address: When: Unknown Comments:Labs today including CBC with differential, CMP, iron study B12 folate and copper level.Start ferrous sulfate snyk-hvp-uezvxjl 325 mg once daily.Return in 3 months with labs prior including CBC with differential CMP and iron studies. [facility]12-20-2023 Hospital Discharge instructions Patient Education [...] hard liquor (44 mL). General instructions Take kngw-uqm-xtxruwq and prescription medicines only as told by [...] provider. Document Revised: 01/17/2021 Document Reviewed: 01/17/2021 [employer] Patient Education [address] [employer] [address]. Follow Up Care 07/31/2023 10:11:05 With:Ashlie Mead CNP Address: When:Within 4 Month(s) [facility] 10-19-2023 Hospital Discharge instructions Patient [...] spleen. Follow these instructions at home: Take qmqq-imi-tdqvrke and prescription medicines only as told by [...] provider. Document Revised: 08/13/2022 Document Reviewed: 09/05/2020 [employer] Patient Education [address] [employer] [address]. Follow Up Care 07/25/2023 08:45:16 With:Ashlie Mead CNP Address: When:1 month [facility] 10-13-2023 Note [id number] Comment: Electronically Signed By: Lucas Bates DO\Date and Time Signed: 07/25/23 08:33 [id number] [facility] Result Comment: Electronically Signed By: Lucas Bates DO\Date and Time Signed: 07/24/23 13:28 [id number] Evaluation + Plan note Future Appointments Appointment Date:06/24/2023 09:00:00 AM Scheduled Provider: Location:.[facility]AN Appointment Type:CT Biopsy (FT) Appointment Date:06/24/2023 09:00:00 AM Scheduled Provider: Location:[facility] Appointment Type:Surgery FT Appointment Date:06/30/2023 11:20:00 AM Scheduled Provider:Willian Barrios MD Location:[facility] Appointment Type: Open Appointment Date:07/10/2023 09:30:00 AM Scheduled Provider: Location:[facility] Appointment Type:Surgery FT Appointment Date:07/22/2023 09:30:00 AM Scheduled Provider: Location:.ONCOLOGY Appointment Type:ONC Office Visit 30 (FT) Appointment Date:09/16/2023 01:00:00 PM Scheduled Provider: Location:[facility] Appointment Type: Medicare Wellness Subsequent Appointment Date:09/16/2023 02:20:00 PM Scheduled Provider:Willian Barrios MD Location:[facility] Appointment Type: Open Future Scheduled Tests Laboratory* CBC w/ Auto Diff 07/22/23 Radiology* CT Bone Marrow Biopsy 06/24/23 * MA Mamm Screen w/CAD if perf and 3D Michael 03/17/23 [facility]08-17-2023 NoteCardiology Clinic Note Subjective Misa [...] 3a chronic kidney disease (CKD) (CMS/HCC) Thrombocytopenia ([facility]/HCC) Total bilirubin, elevated Tremor, essential No family [...] in about 1 year (around 05/29/2024). Delmar Dougals APRN-[facility] Hospital Discharge instructions Follow Up Care 05/13/2023 10:54:30 With:Mariah Amin Address: [address] [address]- [phone] Business (1) When: Unknown Comments:Proceed with Colonoscopy as scheduled on 07/11/23.Arrange for CT guided bone marrow biopsy for thrombocytopenia, leukopenia, suspect MDS.RTC with me 3 weeks aftger bone marrow biopsy. CBCD on return day with me. [facility]07-18-2023 Hospital Discharge instructions Follow Up Care 04/29/2023 10:41:22 With:Mariah Amin Address: [address] [address] [phone] Business (1) When: Unknown Comments:We will obtain [...] the peripheral blood flow cytometry are normal. [facility]07-07-2023 Hospital Discharge instructions Follow Up Care 04/18/2023 13:20:05 With:Mariah Amin Address: [facility] [address] [place] [address] [place] [address]- [phone] Business (1) When: Unknown Comments:We will check CBC with differential CMP PNH flow, LDH, peripheral blood flow cytometry, B12 level, folate, iron studies, copper, ILANA, rheumatoid factor, and platelet antibodies.Return to office in 2 weeks for results. [facility] Future Appointments Appointment Date:09/16/2023 01:00:00 PM Scheduled Provider: Location:[facility] Appointment Type: Medicare Wellness Subsequent Appointment Date:09/16/2023 02:20:00 PM Scheduled Provider:Willian Barrios MD Location:[facility] Appointment Type: Open Future Scheduled Tests Radiology* MA Mamm Screen w/CAD if perf and 3D Michael 03/17/23 [facility] Future Appointments Appointment Date:05/13/2023 10:00:00 AM Scheduled Provider: Location:.ONCOLOGY Appointment Type:ONC Office Visit 30 (FT) Appointment Date:06/30/2023 11:20:00 AM Scheduled Provider:Willian Barrios MD Location:[facility] Appointment Type: Open Appointment Date:09/16/2023 01:00:00 PM Scheduled Provider: Location:[facility] Appointment Type:FM Medicare Wellness Subsequent Appointment Date:09/16/2023 02:20:00 PM Scheduled Provider:Willian Barrios MD Location:[facility] Appointment Type: Open Future Scheduled Tests Radiology* MA Mamm Screen w/CAD if perf and 3D Michael 03/17/23 [facility] Future Appointments [...] w/CAD if perf and 3D Michael 03/17/23 [facility] Future Appointments [...] Diagnostic Tests Pending * Comp panel: Leuk/Lym [id number] 05/13/23 Future Scheduled Tests Laboratory* CBC w/ Auto Diff 05/27/23 * CBC w/ Auto Diff 06/10/23 Radiology* MA Mamm Screen w/CAD if perf and 3D Michael 03/17/23 [facility] Future Appointments [...] Location:[facility] Appointment Type:FM Open Future Scheduled Tests Laboratory* CBC w/ Auto Diff 06/10/23 Radiology* MA Mamm Screen w/CAD if perf and 3D Michael 03/17/23 [facility] Future Appointments Appointment Date:06/17/2023 10:30:00 AM Scheduled Provider: Location:.ONCOLOGY Appointment Type:ONC Office Visit 30 (FT) Appointment Date:06/30/2023 11:20:00 AM Scheduled Provider:Willian Barrios MD Location:[facility] Appointment Type:FM Open Appointment Date:07/10/2023 09:45:00 AM Scheduled Provider: Location:[facility] Appointment Type:Surgery FT Appointment Date:09/16/2023 01:00:00 PM Scheduled Provider: Location:[facility] Appointment Type: Medicare Wellness Subsequent Appointment Date:09/16/2023 02:20:00 PM Scheduled Provider:Willian Barrios MD Location:[facility] Appointment Type: Open Future Scheduled Tests Laboratory* CBC w/ Auto Diff 06/10/23 Radiology* MA Mamm Screen w/CAD if perf and 3D Michael 03/17/23 [facility] Evaluation + Plan note Future Appointments Appointment Date:06/17/2023 10:30:00 AM Scheduled Provider: Location:.ONCOLOGY Appointment Type:ONC Office Visit 30 (FT) Appointment Date:06/30/2023 11:20:00 AM Scheduled Provider:Willian Barrios MD Location:[facility] Appointment Type: Open Appointment Date:07/10/2023 09:30:00 AM Scheduled Provider: Location:[facility] Appointment Type:Surgery FT Appointment Date:09/16/2023 01:00:00 PM Scheduled Provider: Location:[facility] Appointment Type: Medicare Wellness Subsequent Appointment Date:09/16/2023 02:20:00 PM Scheduled Provider:Willian Barrios MD Location:[facility] Appointment Type: Open Future Scheduled Tests Radiology* MA Mamm Screen w/CAD if perf and 3D Michael 03[facility]17[facility]23 [facility] Future App[facility]ments Appointment Date:06/30/2023 11:20:00 AM Scheduled Provider:Willian Barrios MD [facility] Appoint[facility] Type:FM Open Appointment Date:07/22/2023 09:30:00 AM Scheduled Provider: Location:.[facility]COLOGY Appointment Type:ONC Office Visit 30 (FT) Appointment Date:07/24/2023 10:00:00 AM Scheduled Provider: Location:[facility] Appointment Type:Surgery FT Appointment Date:08/29/2023 11:00:00 AM Scheduled Provider: [facility] Appoint[facility] Type: Medicare Wellness Subsequent Appointment Date:09/16/2023 02:20:00 PM Scheduled Provider:Willian Barrios MD [facility] Appointment Type: Open Future Scheduled Tests Laboratory* CBC w/ Auto Diff 07/22/23 Radiology* MA Mamm Screen w/CAD if perf and 3D Michael [facility] Future Appointments Appointment Date:07/22/2023 09:30:00 AM Scheduled Provider: Location:.ONCOLOGY Appointment Type:ONC Office Visit 30 (FT) Appointment Date:07/24/2023 10:00:00 AM Scheduled Provider: Location:[facility] Appointment Type:Surgery FT Appointment Date:08/29/2023 11:00:00 AM Scheduled Provider: [facility] Appointment Type: Medicare Wellness Subsequent Appointment Date:09/16/2023 02:20:00 PM Scheduled Provider:Willian Barrios MD Location[facility] Appointment Type: Open Appointment Date:09/29/2023 11:20:00 AM Scheduled Provider:Willian Barrios MD Location[facility] Appointment Type: Open Future Scheduled Tests Radiology* MA Mamm Screen w/CAD if perf and 3D Michael [facility] App[facility]ments Appointment Date:08/29/2023 11:00:00 AM Scheduled Provider: Location:[facility] [place] Appointment Type:FM Medicare Wellness Subsequent Appointment Date:09/16/2023 02:20:00 PM Scheduled Provider:Willian Barrios MD [facility] Appointment Type:FM Open Appointment Date:09/23/2023 10:00:00 AM Scheduled Provider: Location:.ONCOLOGY Appointment Type:ONC Office Visit 30 (FT) Appointment Date:09/29/2023 11:20:00 AM Scheduled Provider:Willian Barrios MD [facility] Appointment Type: Open Appointment Date:10/01/2023 12:40:00 PM Scheduled Provider:Ashlie Mead CNP Location:[facility] Appointment Type:[facility] Follow Up Future Scheduled Tests [...] w/CAD if perf and 3D Michael 03/17/23 [facility] Evaluation + Plan note Future Appointments Appointment Date:09/16/2023 02:20:00 PM Scheduled Provider:Willian Barrios MD Location:[facility] Appointment Type: Open Appointment Date:09/23/2023 10:00:00 AM Scheduled Provider: [facility] Type:ONC Office Visit 30 (FT) Appointment Date:09/29/2023 11:20:00 AM Scheduled Provider:Willian [facility]rios MD [facility]: Open Appointment Date:10/01/2023 12:40:00 PM Scheduled Provider:Ashlie Mead CNP Location:[facility] Appointment Type:[facility] Follow Up Appointment Date:08/31/2024 11:00:00 AM Scheduled Provider: Location:[facility] Appointment Type: Medicare Wellness Subsequent Diagnostic Tests [...] w/CAD if perf and 3D Michael 03/17/23 [facility] Future Appointments Appointment Date:01/15/2024 09:00:00 AM Scheduled Provider: Location:[facility] Appointment Type:Surgery FT Appointment Date:03/29/2024 10:30:00 AM Scheduled Provider:Willian Barrios MD Location:[facility] Appointment Type: Open Appointment Date:08/31/2024 11:00:00 AM Scheduled Provider: Location:[facility] Appointment Type: Medicare Wellness Subsequent Future Scheduled Tests Laboratory* CBC w/ Auto Diff 10/01/23 * CBC w/ Auto Diff 07/31/23 Radiology* MA Mamm Screen w/CAD if perf and 3D Michael 03/17/23 [facility] Evaluation + Plan note Future Appointments Appointment Date:01/15/2024 09:00:00 AM Scheduled Provider: Location:[facility] Appointment Type:Surgery FT Appointment Date:03/15/2024 10:00:00 AM Scheduled Provider:Mariah Amin MD [facility] Type:ONC Office Visit 30 (FT) Appointment Date:03/29/2024 10:30:00 AM Scheduled Provider:Willian Barrios MD Location:[facility] Appointment Type: Open Appointment Date:08/31/2024 11:00:00 AM Scheduled Provider: Location:[facility] Appointment Type: Medicare Wellness Subsequent Future Scheduled Tests Laboratory* CBC w/ Auto Diff 03/08/24 * CBC w/ Auto Diff 10/01/23 * CBC w/ Auto Diff 07/31/23 * Comprehensive Metabolic Panel 03/08/24 * Ferritin 03/08/24 * Iron Level 03/08/24 * Iron Percent Saturation 03/08/24 * Transferrin 03/08/24 Radiology* MA Mamm Screen w/CAD if perf and 3D Michael 03/17/23 [facility] Future Appointments Appointment Date:01/15/2024 09:00:00 AM Scheduled Provider: Location:[facility] Appointment Type:Surgery FT Appointment Date:03/15/2024 10:00:00 AM Scheduled Provider:Mariah Amin MD Location:.ONCOLOGY Appointment Type:ONC Office Visit 30 (FT) Appointment Date:03/29/2024 10:30:00 AM Scheduled Provider:Willian Barrios MD Location:[facility] Appointment Type: Open Appointment Date:08/31/2024 11:00:00 AM Scheduled Provider: Location:[facility] Appointment Type: Medicare Wellness Subsequent Diagnostic Tests [...] w/CAD if perf and 3D Michael 03/17/23 [facility] Future Appointments Appointment Date:03/15/2024 10:00:00 AM Scheduled Provider:Mariah Amin MD [facility] App[facility] Type:ONC Office Visit 30 (FT) Appointment Date:03/29/2024 10:30:00 AM Scheduled Provider:Willian Barrios MD Location:[facility] Appointment Type: Open Appointment Date:08/31/2024 11:00:00 AM Scheduled Provider: Location:[facility] Appointment Type: Medicare Wellness Subsequent Future Scheduled Tests Laboratory* CBC w/ Auto Diff 03/08/24 * CBC w/ Auto Diff 10/01/23 * CBC w/ Auto Diff 07/31/23 * Comprehensive Metabolic Panel 03/08/24 * Ferritin 03/08/24 * Iron Level 03/08/24 * Iron Percent Saturation 03/08/24 * Transferrin 03/08/24 Radiology* MA Mamm Screen w/CAD if perf and 3D Michael 03/17/23 [facility] Evaluation + Plan note Future Appointments Appointment Date:03/15/2024 10:00:00 AM Scheduled Provider:Mraiah Amin MD [facility] App[facility] Type:ONC Office Visit 30 (FT) Appointment Date:03/29/2024 10:30:00 AM Scheduled Provider:Willian Barrios MD Location:[facility] Appointment Type:FM Open Appointment Date:08/31/2024 11:00:00 AM Scheduled Provider: Location:[facility] Appointment Type: Medicare Wellness Subsequent Future Scheduled Tests Laboratory* CBC w/ Auto Diff 10/01/23 * CBC w/ Auto Diff 07/31/23 Radiology* MA Mamm Screen w/CAD if perf and 3D Michael 03/17/23 [facility] Future Appointments Appointment Date:03/29/2024 10:30:00 AM Scheduled Provider:Willian Barrios MD Location:[facility] Appointment Type:FM Open Appointment Date:07/13/2024 10:00:00 AM Scheduled Provider:Mariah Amin MD [facility] App[facility] Type:ONC Office Visit 30 (FT) Appointment Date:08/31/2024 11:00:00 AM Scheduled Provider: Location:[facility] Appointment Type: Medicare Wellness Subsequent Future Scheduled [...] w/CAD if perf and 3D Michael 03/17/23 [facility] Future Appointments Appointment Date:04/23/2024 12:30:00 PM Scheduled Provider: [facility] App[facility] Type:PUL Methacholine Test (FT) Appointment Date:07/13/2024 10:00:00 AM Scheduled Provider:Eloisa PATTEN, Mariah Davison [facility] Appoint[facility] Type:ONC Office Visit 30 (FT) Appointment Date:08/31/2024 09:30:00 AM Scheduled Provider:Willian Barrios MD Location:[facility] Appointment Type:FM Open Appointment Date:08/31/2024 11:00:00 AM Scheduled Provider: Location:[facility] Appointment Type: Medicare Wellness Subsequent Future Scheduled [...] Transferrin 07/06/24 * Vitamin B12 Level 07/06/24 [facility] Narrative No data available for this section [facility] No data available for this section [facility] No data available for this section [facility] Summary Purpose Family History No [...] section and content) DATE CREATED AUTHOR 10/31/2018 [facility] DATE CREATED AUTHOR AUTHOR'S ORGANIZ ATION 09/24/2022 [facility] DATE CREATED AUTHOR AUTHOR'S ORGANIZ ATION 05/30/2023 [facility] DATE CREATED AUTHOR AUTHOR'S ORGANIZ ATION 03/10/2024 [facility] DATE CREATED AUTHOR AUTHOR'S ORGANIZ ATION 04/04/2024 [facility] DATE CREATED AUTHOR AUTHOR'S ORGANIZ ATION 05/31/2024 [facility] Patient Care team informatio n (unrecognized section and content) Personnel Name: FERNY HUDDLESTON MD Address: Address: [address] [place] [address] Personnel Name: Willian Barrios MD Address: Address: [facility] [address] Personnel Name: Willian Barrios MD Address: Address: [address] [place] [address] Personnel Name: Willian Barrios MD Address: Address: [facility] [place] Personnel Name: Willian Barrios MD Address: Address: [address] [place] [address] Personnel Name: Willian Barrios MD Address: Address: [facility] [address] Personnel Name: Willian Barrios MD Address: Address: [address] [place] [address] Personnel Name: Willian Barrios MD Address: Address: [facility] [place] Personnel Name: Willian Barrios MD Address: Address: [facility] [address] Personnel Name: Willian Barrios MD Address: Address: [address] [place] [address] Personnel Name: Willian Barrios MD Address: Address: [address] [place] [address] Personnel Name: Willian Barrios MD Address: Address: [address] [place] [address] Personnel Name: Willian Barrios MD Address: Address: [facility] [place] Personnel Name: Willian Barrios MD Address: Address: [facility] [address] Personnel Name: Willian Barrios MD Address: Address: [facility] [address] Personnel Name: Willian Barrios MD Address: Address: [facility] [address] Personnel Name: Willian Barrios MD Address: Address: [facility] [address] Personnel Name: Willian Barrios MD Address: Address: [facility] [address] Personnel Name: Willian Barrios MD Address: Address: [facility] [address] Personnel Name: Willian Barrios MD Address: Address: [facility] [address] FOR RECORDS PERTAINING TO PATIENTS WHO [...] BE BASED ON THE PRIMARY CLINICAL RECORDS. [facility] [employer] [facility]. provides no warranty or guarantee of the accuracy or completeness of information in this document.
[2024-06-05] MEDS: IPRATROPIUM/ALBUTEROL SULFATE 3 ML AMPUL.NEB IH ×2 (17:39→22:40)
--- NOTE | 2024-06-05 18:54 | ECG_ITS ---
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
[2024-06-05 19:43] LABS: Glucometer 115 mg/dL (74-106)
[2024-06-05 20:09] LABS: Troponin I High Sensitivity 19.8 pg/mL (4.0-51.3)
[2024-06-05] MEDS: HEPARIN SODIUM (PORCINE) 5,000 UNIT/ML VIAL 5000 UNIT SUBQ (20:10)
[2024-06-05] MEDS: METOPROLOL TARTRATE 25 MG TABLET PO (20:10)
[2024-06-05] MEDS: DILTIAZEM HCL 25 MG/5 ML VIAL 10 MG IV (20:10)
[2024-06-05] MEDS: BUDESONIDE 0.5 MG/2 ML AMPULE NEB IH (22:40)
[2024-06-05 22:54] LABS: Troponin I High Sensitivity 24.9 pg/mL (4.0-51.3)
[2024-06-06] VITALS (21 sets, daily range): BP systolic 108–126; BP diastolic 69–88; PULSE 68–140; TEMP 36.4–36.6; O2SAT 93–97
[2024-06-06] MEDS: IPRATROPIUM/ALBUTEROL SULFATE 3 ML AMPUL.NEB IH ×4 (05:22→23:34)
[2024-06-06] MEDS: FUROSEMIDE 40 MG/4 ML VIAL IVP (06:18)
[2024-06-06] MEDS: LEVOTHYROXINE SODIUM 75 MCG TABLET PO (06:18)
[2024-06-06 06:19] LABS: Eosinophils Percent Auto 0.8 % (0.9-7.0); Hematocrit 32.5 % (36.0-48.0); Hemoglobin 10.9 g/dL (12.0-16.0); Immature Granulocytes Abs Auto 0.06 10^3/uL (0.00-0.03); Immature Granulocytes Pct Auto 1.2 % (0.0-0.5); Lymphocytes Absolute Auto 0.9 10^3/uL (1.2-3.8); Mean Corpuscular HGB Conc 33.5 g/dL (29.9-35.2); Mean Corpuscular Hemoglobin 32.3 pg (26.7-34.0); Mean Corpuscular Volume 96.4 fL (81.0-99.0); Mean Platelet Volume 10.2 fL (9.5-13.5); Monocytes Absolute Auto 0.4 10^3/uL (0.3-0.8); Monocytes Percent Auto 8.2 % (1.7-12.0); Neutrophils Absolute Auto 3.7 10^3/uL (1.4-6.5); Neutrophils Percent Auto 71.8 % (43.0-75.0); Platelet Count 82 10^3/uL (150-450); Red Blood Count 3.37 10^6/uL (4.20-5.40); Red Cell Distribution Width 12.6 % (11.0-15.0); White Blood Count 5.1 10^3/uL (4.0-11.0)
[2024-06-06 06:43] LABS: Estimated Average Glucose 146 mg/dL; Glycohemoglobin A1C 6.7 % (4.5-6.2)
[2024-06-06 06:51] LABS: Alanine Aminotransferase 47 U/L (14-59); Albumin Level 2.6 g/dL (3.4-5.0); Alkaline Phosphatase 65 U/L (46-116); Anion Gap 14.4; Aspartate Amino Transferase 46 U/L (15-37); BUN Creatinine Ratio 25.7; Bilirubin Total 1.3 mg/dL (0.2-1.0); Calcium 8.4 mg/dL (8.5-10.1); Carbon Dioxide 24.9 mmol/L (21.0-32.0); Chloride 105 mmol/L (98-107); Chol HDL Ratio 3.3; Cholesterol 87 mg/dL (<=200); Estimated GFR (African America 43 (>=60); Estimated GFR (Non-African Ame 36 (>=60); Globulin 2.6 g/dL; Glucose 73 mg/dL (74-106); HDL Cholesterol 26 mg/dL (40-60); Potassium 3.3 mmol/L (3.5-5.1); Sodium 141 mmol/L (136-145); Thyroid Stimulating Hormone 1.465 uIU/mL (0.358-3.740); Total Protein 5.2 g/dL (6.4-8.2); Triglycerides 114 mg/dL (<=150); VLDL CHOLESTEROL 22.8 mg/dL
--- NOTE | 2024-06-06 07:45 | P.PN_ITS ---
Progress Note: Subjective Subjective Interval history: Patient is on Telemetry and went into Afib last night. Patient was given Cardizem bolus and her metoprolol. She did feel palpitations and some shortness of breath when it started. This morning she denies chest pain or SOB. I have started oral Cardizem at 60mg TID and Eliquis 5mg BID. I have discussed new findings and diagnosis with patient. No cardiology consult available today but have consulted them for tomorrow. Echo also tomorrow. Exam Narrative Exam Narrative: General: Patient is alert, and oriented to person, place and time with normal affect, proper hygiene Skin: no visible rashes, or ulcers, multiple ecchymosis over the forearms Head: atraumatic, acephalic Eyes: PERRLA, no nystagmus present, conjunctiva clear, no scleral icterus Ears: normal gross auditory acuity Nose: symmetric, no discharge, no maxillary or frontal sinus tenderness Neck: no masses palpated, normal thyroid, no JVD or audible carotid bruits Heart:irregular rate and rhythm, no murmurs/rubs/gallops Lungs: audible wheezes, no crackles and diminished breath sounds all lung pryor Abdomen: Normal audible bowel sounds, no distension, No palpable masses, no organomegaly, no rebound/guarding/ or rigidity Musculoskeletal: +1 pitting edema bilateral lower extremities Neuro: CN II-X grossly intact Constitutional Vital Signs, click to edit/add: Last Vital Signs Temp 97.7 F 06/06/24 07:29 Pulse 89 06/06/24 07:45 Resp 20 06/06/24 07:29 BP 125/74 06/06/24 07:29 Pulse Ox 94 L 06/06/24 07:29 O2 Del Method Room Air 06/06/24 07:29 Progress Note: Objective Labs Labs: Short CBC 06/05/24 06/06/24 Range/Units 11:49 05:36 WBC 12.0 H 5.1 (4.0-11.0) 10^3/uL Hgb 11.8 L 10.9 L (12.0-16.0) g/dL Hct 35.9 L 32.5 L (36.0-48.0) % Plt Count 126 L 82 L (150-450) 10^3/uL BMP 06/05/24 06/06/24 11:49 05:36 Sodium 137 141 Potassium 3.9 3.3 L Chloride 102 105 Carbon Dioxide 24.9 24.9 BUN 40.0 H 37.0 H Creatinine 1.54 H 1.44 H Glucose 104 73 L Calcium 8.7 8.4 L Liver Function 06/05/24 06/06/24 Range/Units 11:49 05:36 Total Bilirubin 1.9 H 1.3 H (0.2-1.0) mg/dL AST 64 H 46 H (15-37) U/L ALT 58 47 (14-59) U/L Alkaline Phosphatase 82 65 (46-116) U/L Albumin 3.1 L 2.6 L (3.4-5.0) g/dL Progress Note: A&P Assessment and Plan (1) New onset a-fib: Assessment and Plan: most likely secondary to acute chf, Echo pending. TSH normal, magnesium and electrolytes normal, Given Cardizem bolus last night, which brought HR down to 90's. I have started oral Cardizem 60mg TID, she is on metoprolol and may increase this to 50mg BID from 25mg BID. I have also started Eliquis given her CHADSVASC score >5. I have consulted cardiology. She may benefit from digoxin once other medications optimized. (2) Acute exacerbation of CHF (congestive heart failure): Assessment and Plan: fluid restriction to 1.5L, monitor strict I&O's with daily weights. Monitor proBNP, initially 500 up to 1844, chest X-ray does not show pulmonary edema. Recheck ECHO when available, last was 04/2023, continue Lasix 40mg IV daily. Qualifiers: Heart failure type: diastolic Qualified Code(s): I50.33 - Acute on chronic diastolic (congestive) heart failure (3) Bilateral edema of lower extremity: Assessment and Plan: Will continue with lasix 40mg IV daily. monitor electrolytes and renal function. (4) Thrombocytopenia: Assessment and Plan: Patient follows with hematology as outpatient, she is suppose to take daily iron supplement. (5) Morbid obesity: Assessment and Plan: would benefit from weight reduction as outpatient (6) VALERIE (obstructive sleep apnea): Assessment and Plan: could be contributing to new onset afib, may need sleep study (7) CKD stage 3 due to type 2 diabetes mellitus: Assessment and Plan: monitor daily, Cr. 1.44 (8) Hypothyroid: Assessment and Plan: Tsh level stable, continue levothyroxine. Qualifiers: Hypothyroidism type: unspecified Qualified Code(s): E03.9 - Hypothyroidism, unspecified (9) Diabetes: Assessment and Plan: SSI for now Qualifiers: Chronic kidney disease stage: stage 3 (moderate) Chronic kidney disease stage 3 subtype: stage 3a (GFR 45-59) Diabetes mellitus complication detail: with chronic kidney disease Diabetes mellitus complication status: with kidney complications Diabetes mellitus watcher [employer]at [employer] insulin use: without watcher [employer] goods use Diabetes mellitus type: type 2 Qualified Code(s): E11.22 - Type 2 diabetes mellitus with diabetic chronic kidney disease; N18.31 - Chronic kidney disease, stage 3a (10) HTN (hypertension): Assessment and Plan: contiue losartan/hctz and metoprolol Qualifiers: Hypertension type: primary hypertension Qualified Code(s): I10 - Essential (primary) hypertension (11) Hyperlipidemia associated with type 2 diabetes mellitus: Assessment and Plan: continue atorvastatin Plan start Eliquis, stop heparin patient made inpatient today with new findings of afib and the need for further work up and concern for further decompensation of chf requiring 1-2 more days of hospital necessary care.
[2024-06-06] MEDS: ATORVASTATIN CALCIUM 40 MG TABLET PO (08:38)
[2024-06-06] MEDS: HYDROCHLOROTHIAZIDE 25 MG TABLET PO (08:38)
[2024-06-06] MEDS: POTASSIUM CHLORIDE 10 MEQ ER TABLET 20 MEQ PO ×2 (08:38→20:26)
[2024-06-06] MEDS: DILTIAZEM HCL 60 MG TABLET PO ×2 (08:38→20:26)
[2024-06-06] MEDS: HEPARIN SODIUM (PORCINE) 5,000 UNIT/ML VIAL 5000 UNIT SUBQ (08:38)
[2024-06-06] MEDS: METOPROLOL TARTRATE 25 MG TABLET PO ×2 (08:38→20:26)
[2024-06-06] MEDS: LOSARTAN POTASSIUM 50 MG TABLET 100 MG PO (08:39)
[2024-06-06] MEDS: BUDESONIDE 0.5 MG/2 ML AMPULE NEB IH ×2 (10:44→23:34)
[2024-06-06 11:21] LABS: Glucometer 117 mg/dL (74-106)
[2024-06-06 16:21] LABS: Glucometer 158 mg/dL (74-106)
[2024-06-06] MEDS: INSULIN ASPART 300 UNIT/3 ML PEN SUBQ ×2 (16:57→21:55)
[2024-06-06] MEDS: APIXABAN 5 MG TABLET PO (20:26)
[2024-06-06 20:28] LABS: Glucometer 162 mg/dL (74-106)
[2024-06-07] VITALS (23 sets, daily range): BP systolic 111–122; BP diastolic 69–81; PULSE 54–113; TEMP 36.4–36.8; O2SAT 90–96
[2024-06-07] MEDS: IPRATROPIUM/ALBUTEROL SULFATE 3 ML AMPUL.NEB IH ×4 (05:14→22:21)
[2024-06-07] MEDS: LEVOTHYROXINE SODIUM 75 MCG TABLET PO (05:19)
[2024-06-07 06:13] LABS: Basophils Percent Auto 0.2 % (0.2-2.0); Eosinophils Absolute Auto 0.1 10^3/uL (0.0-0.7); Eosinophils Percent Auto 0.9 % (0.9-7.0); Hemoglobin 10.6 g/dL (12.0-16.0); Immature Granulocytes Abs Auto 0.07 10^3/uL (0.00-0.03); Immature Granulocytes Pct Auto 1.1 % (0.0-0.5); Mean Corpuscular HGB Conc 33.1 g/dL (29.9-35.2); Mean Corpuscular Volume 96.7 fL (81.0-99.0); Mean Platelet Volume 10.5 fL (9.5-13.5); Monocytes Absolute Auto 0.5 10^3/uL (0.3-0.8); Monocytes Percent Auto 7.5 % (1.7-12.0); Neutrophils Absolute Auto 4.7 10^3/uL (1.4-6.5); Neutrophils Percent Auto 74.3 % (43.0-75.0); Platelet Count 79 10^3/uL (150-450); Red Blood Count 3.31 10^6/uL (4.20-5.40); Red Cell Distribution Width 12.6 % (11.0-15.0); White Blood Count 6.4 10^3/uL (4.0-11.0)
--- NOTE | 2024-06-07 06:46 | CA_ITS ---
Patient Name: CALI SANTOS MR#: [id number] : 1955 Exam Date: 06/07/2024 Ordering Doctor: LAURO GARZA . ECHOCARDIOGRAM REPORT PROCEDURE: CA ECHO DOPPLER COMPLETE INDICATIONS: acute chf, shortness of breath, last echo 2022 COMPARISON: None. DESCRIPTION: COMPLETE ECHOCARDIOGRAM Real-time transthoracic echocardiography with 2D, M-mode, spectral and color flow Doppler performed. QUALITY: Technical quality was good. LEFT VENTRICLE: Normal chamber size. Mild concentric left ventricular hypertrophy. Global left ventricular systolic function is hyperdynamic. LV EF: Visual estimation of left ventricular ejection fraction is 75%. DIASTOLIC: Not adequately assessed due to heart rhythm. ATRIAL SEPTUM: LEFT ATRIUM: Moderate dilatation. RIGHT ATRIUM: Moderate dilatation. RIGHT VENTRICLE: Moderately dilated. Normal right ventricular systolic function. TRICUSPID VALVE: Normal mobility and thickness. No stenosis with mild regurgitation. No evidence of pulmonary hypertension. RVSP 24 mmHg MITRAL VALVE: Normal mobility and thickness. No evidence of mitral valve stenosis. Mild mitral annular calcification. Mild mitral regurgitation. AORTIC VALVE: Normal trileaflet appearance. Mildly calcified aortic valve. Normal leaflet mobility. No evidence of aortic valve stenosis. No aortic regurgitation. AORTIC ROOT: Normal diameter and appearance. Moderate dilatation of the ascending aorta measuring 4.3 x 4.4 x 4.2 cm. PULMONIC VALVE: Normal thickness and mobility. No stenosis. Mild regurgitation. PERICARDIUM: Small pericardial effusion. No echocardiographic evidence of tamponade physiology. IVC: Collapses with inspirations. Normal size. PLEURA: Small pleural effusion. CONCLUSION: 1. Mild concentric left ventricular hypertrophy with hyperdynamic systolic function. LVEF is estimated at 75%. 2. Moderately dilated right ventricle with normal systolic function. 3. Moderate biatrial dilatation. 4. Mild tricuspid, mitral and pulmonic regurgitation. 5. Normal right-sided pressures. 6. Moderately dilated ascending aorta measuring 4.4 cm. 7. Small pericardial effusion without echocardiographic evidence of tamponade physiology. Adult Echocardiography Procedure Report Left Ventricle LVEDD (3.7 - 5.6 cm): 4.13 cm LVESD (2.2 - 4.0 cm): 2.64 cm LVIVS thickness (0.6 - 1.2 cm): 1.20 cm LVPW thickness (0.5 - 1.0 cm): 1.16 cm LVOT Max Gradient: 4 mm[Hg] Peak Velocity (LVOT): 106.00 cm/s Mean Velocity (LVOT): 61.40 cm/s LVOT Diameter 2.00 cm Left Ventricular Ejection Fraction: 75 % Left Atrium LA Volume Index (2D A2C): 76725 mm3 Left Atrium Systolic Dimension: 5.10 cm Mitral Valve MV E to A Ratio: 197.80 Mitral Valve A-Wave Peak Velocity: 4.94 mm/s Mitral Valve E-Wave Peak Velocity: 97.70 cm/s Right Ventricle Aorta AO Root Diam: 2.90 cm Aortic Valve AoV Area (Peak Yinka): 2.18 cm2 AoV Area (VTI): 1.92 cm2 Peak Velocity(Antegrade Flow): 153.00 cm/s Peak Gradient(Antegrade Flow): 9 mm[Hg] Mean Velocity(Antegrade Flow): 107.00 cm/s Mean Gradient(Antegrade Flow): 5 mm[Hg] Velocity Time Integral: 34.10 cm Tricuspid Valve Peak Velocity (Regurgitant Flow): 231.00 cm/s Peak Velocity: 76.50 cm/s Pulmonic Valve Peak Velocity: 126.00 cm/s, 111.00 cm/s Peak Gradient: 6 mm[Hg] Right Atrium Dictated by: Wally Perdue M.D. on 06/07/2024 at 18:04 Approved by: Wally Perdue M.D. on 06/07/2024 at 18:11
[2024-06-07 06:53] LABS: Alanine Aminotransferase 43 U/L (14-59); Albumin Level 2.6 g/dL (3.4-5.0); Alkaline Phosphatase 72 U/L (46-116); Aspartate Amino Transferase 41 U/L (15-37); BUN Creatinine Ratio 29.2; Bilirubin Total 1.3 mg/dL (0.2-1.0); Calcium 8.6 mg/dL (8.5-10.1); Carbon Dioxide 25.5 mmol/L (21.0-32.0); Chloride 105 mmol/L (98-107); Estimated GFR (African America 43 (>=60); Estimated GFR (Non-African Ame 36 (>=60); Globulin 2.7 g/dL; Glucose 116 mg/dL (74-106); Potassium 3.5 mmol/L (3.5-5.1); Sodium 141 mmol/L (136-145); Total Protein 5.3 g/dL (6.4-8.2)
--- NOTE | 2024-06-07 07:53 | P.PN_ITS ---
Progress Note: Subjective Subjective Interval history: Patient is resting comfortably in bed. Not much rest last night due to hospital room lights and activity. She denies any chest pain or palpitations, wheezing/shortness of breath has improved. She also has had slight cough, no productive cough. She has been up and down urinating. She feels swelling in legs improved. Exam Narrative Exam Narrative: General: Patient is alert, and oriented to person, place and time with normal affect, proper hygiene Skin: no visible rashes, or ulcers, multiple ecchymosis over the forearms Head: atraumatic, acephalic Eyes: PERRLA, no nystagmus present, conjunctiva clear, no scleral icterus Ears: normal gross auditory acuity Nose: symmetric, no discharge, no maxillary or frontal sinus tenderness Neck: no masses palpated, normal thyroid, no JVD or audible carotid bruits Heart:irregular rate and rhythm, no murmurs/rubs/gallops Lungs: no audible wheezes, no crackles but diminished breath sounds all lung pryor Abdomen: Normal audible bowel sounds, no distension, No palpable masses, no organomegaly, no rebound/guarding/ or rigidity Musculoskeletal: +1 pitting edema bilateral lower extremities Neuro: CN II-X grossly intact Constitutional Vital Signs, click to edit/add: Last Vital Signs Temp 97.6 F 06/07/24 04:30 Pulse 94 H 06/07/24 06:00 Resp 20 06/07/24 05:14 BP 122/81 06/07/24 04:30 Pulse Ox 96 06/07/24 05:14 O2 Del Method Room Air 06/07/24 05:14 Progress Note: Objective Labs Labs: Short CBC 06/07/24 Range/Units 05:26 WBC 6.4 (4.0-11.0) 10^3/uL Hgb 10.6 L (12.0-16.0) g/dL Hct 32.0 L (36.0-48.0) % Plt Count 79 L (150-450) 10^3/uL BMP 06/07/24 05:26 Sodium 141 Potassium 3.5 Chloride 105 Carbon Dioxide 25.5 BUN 42.0 H Creatinine 1.44 H Glucose 116 H Calcium 8.6 Liver Function 06/07/24 Range/Units 05:26 Total Bilirubin 1.3 H (0.2-1.0) mg/dL AST 41 H (15-37) U/L ALT 43 (14-59) U/L Alkaline Phosphatase 72 (46-116) U/L Albumin 2.6 L (3.4-5.0) g/dL Progress Note: A&P Assessment and Plan (1) New onset a-fib: Assessment and Plan: Echo pending. TSH normal, magnesium and electrolytes normal. Continue oral Cardizem 60mg BID, she is on metoprolol and may increase this to 50mg BID from 25mg BID once BP stable. I have also started Eliquis given her CHADSVASC score. I have consulted cardiology. (2) Acute exacerbation of CHF (congestive heart failure): Assessment and Plan: fluid restriction to 1.5L, monitor strict I&O's with daily weights. Recheck ECHO when available, last was 04/2023, continue Lasix 40mg IV daily. Qualifiers: Heart failure type: diastolic Qualified Code(s): I50.33 - Acute on chronic diastolic (congestive) heart failure (3) Bilateral edema of lower extremity: Assessment and Plan: Will continue with lasix 40mg IV daily. monitor electrolytes and renal function. (4) Hypokalemia: Assessment and Plan: secondary to diuresis, continue daily supplement (5) Thrombocytopenia: Assessment and Plan: hematology as outpatient, she is suppose to take daily iron supplement. (6) Morbid obesity: Assessment and Plan: would benefit from weight reduction as outpatient (7) VALERIE (obstructive sleep apnea): Assessment and Plan: could be contributing to new onset afib, may need sleep study as outpatient (8) CKD stage 3 due to type 2 diabetes mellitus: Assessment and Plan: at baseline (9) Hypothyroid: Assessment and Plan: normal TSH, continue levothyroxine Qualifiers: Hypothyroidism type: unspecified Qualified Code(s): E03.9 - Hypothyroidism, unspecified (10) Diabetes: Assessment and Plan: SSI for now Qualifiers: Chronic kidney disease stage: stage 3 (moderate) Chronic kidney disease stage 3 subtype: stage 3a (GFR 45-59) Diabetes mellitus complication detail: with chronic kidney disease Diabetes mellitus complication status: with kidney complications Diabetes mellitus shelter insulin use: without shelter use Diabetes mellitus type: type 2 Qualified Code(s): E11.22 - Type 2 diabetes mellitus with diabetic chronic kidney disease; N18.31 - Chronic kidney disease, stage 3a (11) HTN (hypertension): Assessment and Plan: contiue losartan/hctz and metoprolol Qualifiers: Hypertension type: primary hypertension Qualified Code(s): I10 - Essential (primary) hypertension (12) Hyperlipidemia associated with type 2 diabetes mellitus: Assessment and Plan: continue atorvastatin Plan continue Eliquis Awaiting Cardiology Consult, Echo for final recommendations and discharge planning.
[2024-06-07] MEDS: FUROSEMIDE 40 MG/4 ML VIAL IVP (08:40)
[2024-06-07] MEDS: ATORVASTATIN CALCIUM 40 MG TABLET PO (09:36)
[2024-06-07] MEDS: FLUTICASONE PROPIONATE 50 MCG NASAL SPRAY 2 SPRAY NS (09:36)
[2024-06-07] MEDS: APIXABAN 5 MG TABLET PO ×2 (09:36→21:50)
[2024-06-07] MEDS: POTASSIUM CHLORIDE 10 MEQ ER TABLET 20 MEQ PO ×2 (09:36→21:50)
[2024-06-07] MEDS: HYDROCHLOROTHIAZIDE 25 MG TABLET PO (09:36)
[2024-06-07] MEDS: METOPROLOL TARTRATE 25 MG TABLET PO ×2 (09:36→21:50)
[2024-06-07] MEDS: LOSARTAN POTASSIUM 50 MG TABLET 100 MG PO (09:36)
[2024-06-07] MEDS: DILTIAZEM HCL 60 MG TABLET PO ×2 (09:36→21:50)
--- NOTE | 2024-06-07 09:38 | CM.NOTE ---
Rounds made with Dr. Roland. Dr. Roland reviews plan for day-Cardiology Consult for recommendation and Echo today. Misa verbalizes understanding.
[2024-06-07] MEDS: BUDESONIDE 0.5 MG/2 ML AMPULE NEB IH ×2 (10:50→22:21)
[2024-06-07 11:28] LABS: Glucometer 198 mg/dL (74-106)
--- NOTE | 2024-06-07 11:32 | SWNOTE1 ---
SW met with pt to discuss dc needs. Pt lives at home with her and son. Pt is independent and does not use any DME. Pt still drives and does grocery shopping. Pt worked with therapy and no services are recommended. At this time no anticipated discharge needs. SW to follow as needed. Important Message from Medicare reviewed and discussed with patient. Pt. verbalized understanding and signed the form. Original given to patient and copy placed in patient?s chart.
[2024-06-07] MEDS: INSULIN ASPART 300 UNIT/3 ML PEN SUBQ ×3 (11:38→21:51)
[2024-06-07 16:03] LABS: Glucometer 177 mg/dL (74-106)
--- NOTE | 2024-06-07 18:01 | PM.CACN ---
History of Present Illness History of Present Illness Consult date: 06/07/24 Requesting physician: Karla Roland Chief complaint: CHF ACUTE Narrative: 69 year old female with past medical history of HTN, HLD, T2DM, hypothyroidism, who presents to the hospital with complaints of lower extremity swelling and shortness fo breath. She was recently in the hospital with pneumonia, and since that time, she has had problems with the aforementioned. Since her hospitalization, patient was noted to be intermittently in afib on the monitor. Cardiology was asked to assist in evaluation. Today, patient states that she feels significantly better. Lower extremity edema improved. Shortness of breath improved. No chest pain. No orthopnea or PND. Review of Systems ROS Status of ROS 10 or more systems reviewed and unremarkable except as noted in history and below [facility] Medical History (Updated 06/07/24 @ 09:47 by Karla Roland, DO) Hyperlipidemia associated with type 2 diabetes mellitus ?E11.69 - Type 2 diabetes mellitus with other specified complication (ICD-10) ?E78.5 - Hyperlipidemia, unspecified (ICD-10) Reactive airway disease with acute exacerbation ?J45.901 - Unspecified asthma with (acute) exacerbation (ICD-10) Thrombocytopenia ?D69.6 - Thrombocytopenia, unspecified (ICD-10) Pneumonia ?J18.9 - Pneumonia, unspecified organism (ICD-10) Pancytopenia ?D61.818 - Other pancytopenia (ICD-10) Morbid obesity ?E66.01 - Morbid (severe) obesity due to excess calories (ICD-10) VALERIE (obstructive sleep apnea) ?G47.33 - Obstructive sleep apnea (adult) (pediatric) (ICD-10) CKD stage 3 due to type 2 diabetes mellitus ?E11.22 - Type 2 diabetes mellitus with diabetic chronic kidney disease (ICD-10) ?N18.30 - Chronic kidney disease, stage 3 unspecified (ICD-10) Moderate protein malnutrition ?E44.0 - Moderate protein-calorie malnutrition (ICD-10) Iron deficiency anemia ?D50.9 - Iron deficiency anemia, unspecified (ICD-10) CKD stage 2 due to type 2 diabetes mellitus ?E11.22 - Type 2 diabetes mellitus with diabetic chronic kidney disease (ICD-10) ?N18.2 - Chronic kidney disease, stage 2 (mild) (ICD-10) Hypothyroid ?E03.9 - Hypothyroidism, unspecified (ICD-10) Leaky heart valve ?I38 - Endocarditis, valve unspecified (ICD-10) Diabetes ?E11.9 - Type 2 diabetes mellitus without complications (ICD-10) HTN (hypertension) ?I10 - Essential (primary) hypertension (ICD-10) Surgical History H/O: hysterectomy ?Z90.710 - Acquired absence of both cervix and uterus (ICD-10) History of carpal tunnel release ?Z98.890 - Other specified postprocedural states (ICD-10) Previous section ?Z98.891 - History of uterine scar from previous surgery (ICD-10) Family History Mother Family history of cancer Father Family history of diabetes mellitus Grandmother Family history of stroke Social History (Updated 05/27/24 @ 18:30 by Sweetie Morel RN) Within the past year, how often did you have a drink containing alcohol: never Score interpretation: A score less than 3 is consistent with normal alcohol consumption. Smoking status: Never smoker Non-prescribed substance use: denies use Highest level of school completed/degree received: high school graduate Meds Home Medications and Allergies Home Medications ?Medication ?Instructions ?Recorded ?Confirmed ?Type albuterol sulfate 90 mcg/actuation 2 puff inhalation Q6H PRN 05/27/24 06/05/24 History aerosol inhaler shortness of breath or wheezing atorvastatin 40 mg tablet 40 mg PO DAILY 05/27/24 06/05/24 History fluticasone propionate 50 2 spray intranasal DAILY 05/27/24 06/05/24 History mcg/actuation nasal spray,suspension glipizide 5 mg tablet 5 mg PO DAILY 05/27/24 06/05/24 History levothyroxine 75 mcg tablet 75 mcg PO DAILY 05/27/24 06/05/24 History losartan 100 1 tab PO DAILY 05/27/24 06/05/24 History mg-hydrochlorothiazide 25 mg tablet metoprolol tartrate 25 mg tablet 25 mg PO BID 05/27/24 06/05/24 History calcium carbonate 500 mg-vitamin 1 tab PO BID 06/05/24 06/05/24 History D3 10 mcg (400 unit) tablet (Calcium 500 With D) Allergies Allergy/AdvReac Type Severity Reaction Status Date / Time Sulfa (Sulfonamide Allergy Severe Hives Verified 05/31/24 08:15 Antibiotics) Exam Constitutional Vital Signs, click to edit/add: Last Vital Signs Temp 98.2 F 06/07/24 15:49 Pulse 113 H 06/07/24 17:50 Resp 18 06/07/24 15:49 BP 111/74 06/07/24 15:49 Pulse Ox 92 L 06/07/24 16:45 O2 Del Method Room Air 06/07/24 16:45 Common normals: no apparent distress and oriented x3 Eye Common normals: PERRL and EOMs intact bilaterally Chest Chest: symmetrical chest wall rise Respiratory Common normals: normal respiratory effort and no retractions Effort & inspection: able to speak in complete sentences and symmetric chest movement Cardio Common normals: no JVD, regular rate, regular rhythm, S1 normal heart sound and S2 normal heart sound GI Common normals: Normal to inspection, nondistended, normoactive bowel sounds present Back & Pelvis Common normals: no CVA tenderness Extremity Common normals: abnormal capillary refill Neuro Common normals: CN's II-XII intact bilaterally and moves all extremities Psych Common normals: mental status grossly normal and thought process normal Results Labs and Meds Lab results: Cardiac Enzymes 06/07/24 Range/Units 05:26 AST 41 H (15-37) U/L CBC 06/07/24 Range/Units 05:26 WBC 6.4 (4.0-11.0) 10^3/uL RBC 3.31 L (4.20-5.40) 10^6/uL Hgb 10.6 L (12.0-16.0) g/dL Hct 32.0 L (36.0-48.0) % Plt Count 79 L (150-450) 10^3/uL Neut # (Auto) 4.7 (1.4-6.5) 10^3/uL Lymph # (Auto) 1.0 L (1.2-3.8) 10^3/uL Centre # (Auto) 0.5 (0.3-0.8) 10^3/uL Eos # (Auto) 0.1 (0.0-0.7) 10^3/uL Baso # (Auto) 0.0 (0.0-0.1) 10^3/uL Comprehensive Metabolic Panel 06/07/24 Range/Units 05:26 Sodium 141 (136-145) mmol/L Potassium 3.5 (3.5-5.1) mmol/L Chloride 105 (98-107) mmol/L Carbon Dioxide 25.5 (21.0-32.0) mmol/L BUN 42.0 H (7.0-18.0) mg/dL Creatinine 1.44 H (0.55-1.02) mg/dL Glucose 116 H (74-106) mg/dL Calcium 8.6 (8.5-10.1) mg/dL AST 41 H (15-37) U/L ALT 43 (14-59) U/L Alkaline Phosphatase 72 (46-116) U/L Total Protein 5.3 L (6.4-8.2) g/dL Albumin 2.6 L (3.4-5.0) g/dL Intake and Output 06/07/24 06/07/24 06/07/24 07:59 15:59 23:59 Intake Total 240 / 480 240 / 480 Output Total 500 / 1700 915 / 1115 200 / 1115 Balance -500 / -270 -675 / -635 40 / -635 Intake: Oral 240 / 480 240 / 480 Output: Blood Draw 240 / 240 Urine 500 / 1700 675 / 875 200 / 875 Other: Weight 120.5 kg Assessment and Plan Assessment and Plan (1) New onset a-fib: (2) Acute exacerbation of CHF (congestive heart failure): Qualifiers: Heart failure type: diastolic Qualified Code(s): I50.33 - Acute on chronic diastolic (congestive) heart failure (3) Bilateral edema of lower extremity: (4) Hypokalemia: (5) Thrombocytopenia: (6) Morbid obesity: (7) VALERIE (obstructive sleep apnea): (8) CKD stage 3 due to type 2 diabetes mellitus: (9) Hypothyroid: Qualifiers: Hypothyroidism type: unspecified Qualified Code(s): E03.9 - Hypothyroidism, unspecified (10) Diabetes: Qualifiers: Diabetes mellitus type: type 2 Diabetes mellitus terminal make up operator insulin use: without terminal make up operator use Diabetes mellitus complication status: with kidney complications Diabetes mellitus complication detail: with chronic kidney disease Chronic kidney disease stage: stage 3 (moderate) Chronic kidney disease stage 3 subtype: stage 3a (GFR 45-59) Qualified Code(s): E11.22 - Type 2 diabetes mellitus with diabetic chronic kidney disease; N18.31 - Chronic kidney disease, stage 3a (11) HTN (hypertension): Qualifiers: Hypertension type: primary hypertension Qualified Code(s): I10 - Essential (primary) hypertension (12) Hyperlipidemia associated with type 2 diabetes mellitus: Plan Patient presenting after recent URI with shortness of breath. She was found to be in HF and in Afib Anticoagulation has been started for stroke prophylaxis given CHADs Vasc score >5 She is on oral BB and CCB. Continue current regimen for rate control continue current diuresis regimen Follow up echo results If rate can not be controlled, consider transfer to [facility] for ANTONIO/cardioversion. Otherwise, she is scheduled for outpatient follow up with Dr. Espitia Thank you for allowing us to participate in the care of your patient. please do not hestiate to contact [facility] cardiology with questions. Yessi Martinez MD
[2024-06-07 21:58] LABS: Glucometer 154 mg/dL (74-106)
[2024-06-07 23:12] LABS: Glucometer 159 mg/dL (74-106)
--- NOTE | 2024-06-07 23:32 | CT_ITS ---
[address] [address] Patient Name: CALI SANTOS MRN: [id number] date: 1955 Sex: F Assigned Patient Location: [place] Current Patient Location: [place] Accession/Order Number: [id number] Exam Date: 06/07/2024 23:47 Report Date: 06/08/2024 01:49 At the request of: ROBERT BAER Procedure: CT angio neck EXAMINATION: CT angio neck, CT angio head HISTORY: Stroke Alert COMPARISON: Noncontrast CT head 06/07/2024 TECHNIQUE: Contrast enhanced head and neck CT arteriogram was performed. Scanning performed during the arterial phase from the thoracic inlet to the [place] of [place]. 3D reconstructions were rendered on a separate 3D workstation to evaluate vascular anatomy. Dose reduction techniques were achieved by using automated exposure control and/or adjustment of mA and/or kV according to patient size and/or use of iterative reconstruction technique. Carotid stenosis was measured utilizing NASCET criteria. FINDINGS: NECK FINDINGS: No acute soft tissue abnormalities in the neck. Airway is patent. Visualized lungs are clear. Mild multilevel cervical spondylotic changes. VASCULATURE FINDINGS: Arch and Subclavian Arteries: Standard three vessel arch. Subclavian arteries are normal bilaterally. Common Carotids: Normal bilaterally. ICAs: Patent bilaterally to the carotid terminus. MCAs: Normal bilaterally. ACAs: Normal bilaterally with azygos configuration. P-Comms: Visualized bilaterally. Vertebral Arteries: Normal to the confluence with the basilar artery. Left dominant vertebral system. Basilar Artery: Normal. real estate operations manager: Normal bilaterally with left origin. Aneurysm: None. Dural venous sinuses: Grossly patent CT/CT angio neck IMPRESSION: No large vessel arterial occlusion, high-grade narrowing, or substantial luminal irregularity in the head or neck. Electronically authenticated by: TAM BECK Date: 06/08/2024 01:49
--- NOTE | 2024-06-07 23:32 | CT_ITS ---
The [address] [address] Patient Name: CALI SANTOS MRN: [id number] date: 1955 Sex: F Assigned Patient Location: MS Current Patient Location: [place] Accession/Order Number: [id number] Exam Date: 06/07/2024 23:40 Report Date: 06/08/2024 00:20 At the request of: ROBERT BAER Procedure: CT stroke head/brain wo con INDICATION: 69 years old; Female. Facial numbness. TECHNIQUE: CT Head (ax/cor/sag reformats). Ionizing radiation dose reduced via iterative reconstruction/FBP blend and body size kV/mA adjustment. Comparison: None FINDINGS: POSTOPERATIVE CHANGES: None. BRAIN PARENCHYMA: No intraparenchymal or extra-axial hemorrhage. No mass effect. No midline shift or herniation. Normal montes/white differentiation. VENTRICLES/EXTRA-AXIAL SPACES: Normal for patient's age. SINUSES/MASTOIDS: Sinuses are clear although the maxillary sinuses are not completely included. The left frontal sinuses are hypoplastic. Mastoids and middle ears are clear. MSK: No displaced or depressed calvarial fracture. OTHER: No hyperdense intraluminal thrombus is present. CT/CT stroke head/brain wo con IMPRESSION: 1. No acute intracranial abnormality. No hemorrhage or mass effect. If there is concern for acute infarction, then MRI including diffusion imaging would be more sensitive for further evaluation. Electronically authenticated by: NICOLE ALICEA Date: 06/08/2024 00:20
--- NOTE | 2024-06-07 23:32 | CT_ITS ---
[address] [address] Patient Name: CALI SANTOS MRN: [id number] date: 1955 Sex: F Assigned Patient Location: MS Current Patient Location: MS Accession/Order Number: [id number] Exam Date: 06/07/2024 23:47 Report Date: 06/08/2024 01:49 At the request of: ROBERT BAER Procedure: CT angio head EXAMINATION: CT angio neck, CT angio head HISTORY: Stroke Alert COMPARISON: Noncontrast CT head 06/07/2024 TECHNIQUE: Contrast enhanced head and neck CT arteriogram was performed. Scanning performed during the arterial phase from the thoracic inlet to the [place] of [place]. 3D reconstructions were rendered on a separate 3D workstation to evaluate vascular anatomy. Dose reduction techniques were achieved by using automated exposure control and/or adjustment of mA and/or kV according to patient size and/or use of iterative reconstruction technique. Carotid stenosis was measured utilizing NASCET criteria. FINDINGS: NECK FINDINGS: No acute soft tissue abnormalities in the neck. Airway is patent. Visualized lungs are clear. Mild multilevel cervical spondylotic changes. VASCULATURE FINDINGS: Arch and Subclavian Arteries: Standard three vessel arch. Subclavian arteries are normal bilaterally. Common Carotids: Normal bilaterally. ICAs: Patent bilaterally to the carotid terminus. MCAs: Normal bilaterally. ACAs: Normal bilaterally with azygos configuration. P-Comms: Visualized bilaterally. Vertebral Arteries: Normal to the confluence with the basilar artery. Left dominant vertebral system. Basilar Artery: Normal. medical record coder: Normal bilaterally with left origin. Aneurysm: None. Dural venous sinuses: Grossly patent CT/CT angio head IMPRESSION: No large vessel arterial occlusion, high-grade narrowing, or substantial luminal irregularity in the head or neck. Electronically authenticated by: TAM BECK Date: 06/08/2024 01:49
--- NOTE | 2024-06-07 23:55 | PC.NURSE ---
2302 - Pt called out. RN to bedside. Pt c/o numbness to entire face and tip of tongue. PT states that it had occurred earlier in the day, but she did not report it to the nurse on duty. Neuro assessment completed. GARCIA equally without deficit. Speech noted to demonstrate a thicker quality to it. Pt also demonstrated a left eye droop and left facial/mouth droop that was not present in earlier assessment. NIH - 2. RACE - 1. GCS - 15. FSBS -159. 2305 - Hospitalist notified of pt's change in status. Orders received to call STROKE ALERT. 230 - Electrolysis Operator informed of pt's change in status. 2317 - [facility] contacted. Stroke Alert initiated. Discussed pt's change in status with Dr. Gilliam. Orders received for CT/CTA, MRI in AM, Neuro Consult, and discussed that pt is not a TnKase candidate. Dr. Gilliam states that he will examine the images when they come across and that he will contact us if there are any concerns. Pt's VS remain stable. 2330 - Pt to Radiology per bed for STAT CT/CTA per protocol. Symptoms remain unchanged at present time.
[2024-06-08] VITALS (10 sets, daily range): BP systolic 107–116; BP diastolic 67–84; PULSE 75–120; TEMP 36.3–36.7; O2SAT 91–98
--- NOTE | 2024-06-08 04:16 | MR_ITS ---
The [address] [address] Patient Name: CALI SANTOS MRN: [id number] date: 1955 Sex: F Assigned Patient Location: MS Current Patient Location: MS Accession/Order Number: [id number] Exam Date: 06/08/2024 10:55 Report Date: 06/08/2024 13:09 At the request of: ROBERT BAER Procedure: MR head/brain wo con EXAM: MR head/brain wo con HISTORY: Facial Numbness COMPARISON: CTA head 06/07/2024. TECHNIQUE: Multiplanar multisequence MR imaging of the brain was performed without intravenous contrast. FINDINGS: Calvarium/skull base: No focal marrow replacing lesion suggestive of neoplasm. Orbits: Grossly unremarkable. Paranasal sinuses: Imaged portions clear Brain: No restricted diffusion. Mild T2 FLAIR signal hyperintensities are present involving supratentorial white matter which most commonly relates to sequela of small vessel disease. Mild parenchymal volume loss. No mass effect, hemorrhage, or hydrocephalus. Grossly normal flow-related signal in the major intracranial arteries and dural sinuses. MR/MR head/brain wo con IMPRESSION: No acute ischemia. Electronically authenticated by: DAMIR BROWN Date: 06/08/2024 13:09
[2024-06-08] MEDS: IPRATROPIUM/ALBUTEROL SULFATE 3 ML AMPUL.NEB IH ×2 (04:38→10:11)
[2024-06-08] MEDS: LEVOTHYROXINE SODIUM 75 MCG TABLET PO (05:17)
[2024-06-08 05:52] LABS: Basophils Percent Auto 0.1 % (0.2-2.0); Eosinophils Percent Auto 0.5 % (0.9-7.0); Hemoglobin 10.9 g/dL (12.0-16.0); Immature Granulocytes Abs Auto 0.09 10^3/uL (0.00-0.03); Immature Granulocytes Pct Auto 1.1 % (0.0-0.5); Lymphocytes Absolute Auto 1.2 10^3/uL (1.2-3.8); Lymphocytes Percent Auto 15.3 % (20.5-60.0); Mean Corpuscular Hemoglobin 32.4 pg (26.7-34.0); Mean Corpuscular Volume 98.2 fL (81.0-99.0); Mean Platelet Volume 10.6 fL (9.5-13.5); Monocytes Absolute Auto 0.5 10^3/uL (0.3-0.8); Monocytes Percent Auto 6.3 % (1.7-12.0); Neutrophils Absolute Auto 6.1 10^3/uL (1.4-6.5); Neutrophils Percent Auto 76.7 % (43.0-75.0); Platelet Count 81 10^3/uL (150-450); Red Blood Count 3.36 10^6/uL (4.20-5.40); Red Cell Distribution Width 12.9 % (11.0-15.0); White Blood Count 7.9 10^3/uL (4.0-11.0)
[2024-06-08 06:10] LABS: Alanine Aminotransferase 42 U/L (14-59); Albumin Globulin Ratio 0.9; Albumin Level 2.7 g/dL (3.4-5.0); Alkaline Phosphatase 76 U/L (46-116); Anion Gap 15.2; Aspartate Amino Transferase 38 U/L (15-37); Bilirubin Total 1.3 mg/dL (0.2-1.0); Calcium 8.5 mg/dL (8.5-10.1); Carbon Dioxide 25.1 mmol/L (21.0-32.0); Chloride 104 mmol/L (98-107); Estimated GFR (African America 41 (>=60); Estimated GFR (Non-African Ame 34 (>=60); Globulin 2.9 g/dL; Glucose 140 mg/dL (74-106); Potassium 3.3 mmol/L (3.5-5.1); Sodium 141 mmol/L (136-145); Total Protein 5.6 g/dL (6.4-8.2)
--- NOTE | 2024-06-08 08:08 | P.DS_ITS ---
DS: Providers Provider Date of admission: 06/06/24 07:43 Primary care physician: KAI JARQUIN Attending physician on admission: Karla Roland Consults: 06/05/24 15:21 Occupational Therapy Eval and Treat Routine Reason for consultation: weakness Has provider been notified: No Physical Therapy Eval and Treat Routine Reason for consultation: weakness Has provider been notified: No 06/06/24 07:42 Consult to Cardiology Routine Reason for consultation: new onset afib Has provider been notified: No Discharging clinician: Karla Roland DS: Diagnosis Discharge Diagnosis (1) New onset a-fib: (2) Acute exacerbation of CHF (congestive heart failure): Qualifiers: Heart failure type: diastolic Qualified Code(s): I50.33 - Acute on chronic diastolic (congestive) heart failure (3) Bilateral edema of lower extremity: (4) Hypokalemia: (5) Thrombocytopenia: (6) Morbid obesity: (7) VALERIE (obstructive sleep apnea): (8) CKD stage 3 due to type 2 diabetes mellitus: (9) Hypothyroid: Qualifiers: Hypothyroidism type: unspecified Qualified Code(s): E03.9 - Hypothyroidism, unspecified (10) Diabetes: Qualifiers: Chronic kidney disease stage: stage 3 (moderate) Chronic kidney disease stage 3 subtype: stage 3a (GFR 45-59) Diabetes mellitus complication detail: with chronic kidney disease Diabetes mellitus complication status: with kidney complications Diabetes mellitus admissions supervisor insulin use: without half-way use Diabetes mellitus type: type 2 Qualified Code(s): E11.22 - Type 2 diabetes mellitus with diabetic chronic kidney disease; N18.31 - Chronic kidney disease, stage 3a (11) HTN (hypertension): Qualifiers: Hypertension type: primary hypertension Qualified Code(s): I10 - Essential (primary) hypertension (12) Hyperlipidemia associated with type 2 diabetes mellitus: DS: Summary Hospital Course Hospital Course: Patient is a 69 year old female with past medical history of HTN, high cholesterol, non insulin dependent type 2 diabetes, hypothyroidism, who was recently admitted here 2 weeks ago for sepsis secondary to community acquired pneumonia, she was also found to have pancytopenia. Since that time, she has been having increased lower extremity edema and has been seen once in the ER for this on 05/31/24. She returned 06/05/24 with shortness of breath, and persistent edema. She denies any recent fevers or chills, nausea or vomiting or diarrhea. Slight cough but not productive. She sees [facility] cardiology for a leaky Valve , Hematology (Dr. Wilson), and Dr. Jarquin is her PCP. ER findings with ProBNP 500's, CXR negative for acute process, WBC's 12 But with low platelets, hemoglobin, red blood cells. Cr 1.53, slight elevation of total bilirubin and AST. Patient was given Lasix 40mg IV x 1 in the ER and admitted for further plan of care. Followed fluid restriction to 1.5L, monitor strict I&O's with daily weights. Mo nitor proBNP up to 1600, initially 500, chest X-ray does not show pulmonary edema. Recheck ECHO showed moderately dilated Ascending Aorta 4.4, prior was 4.2 cm dilation. Valve pathology looks good. Lasix 40mg IV daily continued. She continued to have good Urinary output. On 06/06/24 Patient developed Afib was given Cardizem bolus and her metoprolol. I started Cardizem 60mg BID along with Eliquis 5mg BID. 06/07 Cardiology was consulted and had no additional recommendations but to follow her in clinic. On the evening of 06/07/24 patient started having numbness in the top of her left eye and nurses reported some slurred speech and facial droop so a Stroke alert was called. CTA and CT head were all negative for stenosis or acute hemorrhages. This morning patient reports her symptoms have subsided. She had MRI of the Brain, I was contacted by [facility] who reviewed the MRI and evaluated patient and agreed that the Eliquis to continue is there only recommendation and MRI was normal. Patient has been rate controlled <90's bpm. She is asymptomatic. She has been doing well for PT. She will be discharged home today with close follow up with PCP and Cardiology. New medications are the Eliquis and Cardizem. She will resume all other home medications. Follow low salt diet, daily weights, 2L fluid restriction. She may return to the ER with any worsening signs or symptoms. Status at Discharge Functional status at discharge: independent ambulation Overall status at discharge: patient is progressing back to baseline Time Spent with Patient Time attestation: Total time spent providing and/or coordinating discharge services: Time spent: greater than 30 minutes Exam Narrative Exam Narrative: General: Patient is alert, and oriented to person, place and time with normal affect, proper hygiene Skin: no visible rashes, or ulcers Head: atraumatic, acephalic Eyes: PERRLA, no nystagmus present, conjunctiva clear, no scleral icterus, baseline ptosis of he left eye with mild left corner of mouth facial droop Ears: normal gross auditory acuity Nose: symmetric, no discharge, no maxillary or frontal sinus tenderness Mouth/Throat: no erythema, exudate, or tonsillar enlargement Neck: no masses palpated Heart: irregular rhythm, normal rate, no murmurs/rubs/gallops Lungs: no audible wheezes, crackles and normal breath sounds all lung pryor Abdomen: Normal audible bowel sounds, no distension, No palpable masses, no organomegaly, no rebound/guarding/ or rigidity Musculoskeletal: no swelling bilateral lower extremities Neuro: CN II-X grossly intact, normal sensation upper and lower extremities, normal strength with hand gripper attacher and lower leg strength, normal nose to hand without drift Constitutional Vital Signs, click to edit/add: Last Vital Signs Temp 97.5 F L 06/08/24 08:00 Pulse 90 06/08/24 08:00 Resp 18 06/08/24 08:00 BP 116/84 06/08/24 08:00 Pulse Ox 91 L 06/08/24 08:00 O2 Del Method Room Air 06/08/24 08:00 DS: Data Data Completed and Pending Labs on day of discharge: Labs from last 24 hours 06/08/24 06/07/24 06/07/24 05:15 23:11 21:51 WBC 7.9 RBC 3.36 L Hgb 10.9 L Hct 33.0 L MCV 98.2 MCH 32.4 MCHC 33.0 RDW 12.9 Plt Count 81 L MPV 10.6 Neut % (Auto) 76.7 H Lymph % (Auto) 15.3 L [place] % (Auto) 6.3 Eos % (Auto) 0.5 L Baso % (Auto) 0.1 L Neut # (Auto) 6.1 Lymph # (Auto) 1.2 [place] # (Auto) 0.5 Eos # (Auto) 0.0 Baso # (Auto) 0.0 Abs Immat Gran (auto) 0.09 H Imm/Tot Granulo (auto) 1.1 H Sodium 141 Potassium 3.3 L Chloride 104 Carbon Dioxide 25.1 Anion Gap 15.2 BUN 48.0 H Creatinine 1.50 H Est GFR ( Amer) 41 L Est GFR (Non-Af Amer) 34 L BUN/Creatinine Ratio 32.0 Glucose 140 H Calcium 8.5 Total Bilirubin 1.3 H AST 38 H ALT 42 Alkaline Phosphatase 76 Total Protein 5.6 L Albumin 2.7 L Globulin 2.9 Albumin/Globulin Ratio 0.9 POC Glucose 159 H 154 H 06/07/24 06/07/24 16:01 11:27 WBC RBC Hgb Hct MCV MCH MCHC RDW Plt Count MPV Neut % (Auto) Lymph % (Auto) [place] % (Auto) Eos % (Auto) Baso % (Auto) Neut # (Auto) Lymph # (Auto) [place] # (Auto) Eos # (Auto) Baso # (Auto) Abs Immat Gran (auto) Imm/Tot Granulo (auto) Sodium Potassium Chloride Carbon Dioxide Anion Gap BUN Creatinine Est GFR ( Amer) Est GFR (Non-Af Amer) BUN/Creatinine Ratio Glucose Calcium Total Bilirubin AST ALT Alkaline Phosphatase Total Protein Albumin Globulin Albumin/Globulin Ratio POC Glucose 177 H 198 H Discharge Plan Discharge Disposition: Home, Self-Care Discharge Medications: New diltiazem HCl 60 mg Tablet 60 mg PO BID 30 Days Qty: 60 0RF Eliquis 5 mg Tablet 5 mg PO BID 30 Days Qty: 60 0RF Continued albuterol sulfate 90 mcg/actuation HFA aerosol inhaler 2 puff INHALATION Q6H PRN (Reason: shortness of breath or wheezing) atorvastatin 40 mg tablet 40 mg PO DAILY fluticasone propionate 50 mcg/actuation spray,suspension 2 spray INTRANASAL DAILY glipizide 5 mg tablet 5 mg PO DAILY levothyroxine 75 mcg tablet 75 mcg PO DAILY losartan-hydrochlorothiazide 100-25 mg tablet 1 tab PO DAILY metoprolol tartrate 25 mg tablet 25 mg PO BID calcium carbonate-vitamin D3 [Calcium 500 With D] 500 mg-10 mcg (400 unit) tablet 1 tab PO BID Activity: increase activity as tolerated Diet: low salt diet Diet Detail: daily weights, fluid restriction of 2 Liters Print Language: Occitan Forms: Portal Instructions Follow Up Appointments: Jun.15 @ 11:45am with [place] [facility] at [facility] [phone] Tues. Sept. 3 @ 3pm with Dr. Jarquin [phone]
[2024-06-08] MEDS: FUROSEMIDE 40 MG/4 ML VIAL IVP (08:51)
[2024-06-08] MEDS: HYDROCHLOROTHIAZIDE 25 MG TABLET PO (08:52)
[2024-06-08] MEDS: POTASSIUM CHLORIDE 10 MEQ ER TABLET 20 MEQ PO ×2 (08:52→14:57)
[2024-06-08] MEDS: METOPROLOL TARTRATE 25 MG TABLET PO (08:52)
[2024-06-08] MEDS: DILTIAZEM HCL 60 MG TABLET PO (08:52)
[2024-06-08] MEDS: APIXABAN 5 MG TABLET PO (08:52)
[2024-06-08] MEDS: LOSARTAN POTASSIUM 50 MG TABLET 100 MG PO (08:53)
[2024-06-08] MEDS: FLUTICASONE PROPIONATE 50 MCG NASAL SPRAY 2 SPRAY NS (08:53)
[2024-06-08] MEDS: ATORVASTATIN CALCIUM 40 MG TABLET PO (08:53)
[2024-06-08] MEDS: BUDESONIDE 0.5 MG/2 ML AMPULE NEB IH (10:11)
--- NOTE | 2024-06-08 11:09 | CM.NOTE ---
Rounds made with Dr. Roland, pt will have MRI and teleneuro consult today. Possible discharge this afternoon after testing and consult.
[2024-06-08 11:53] LABS: Glucometer 182 mg/dL (74-106)
[2024-06-08] MEDS: INSULIN ASPART 300 UNIT/3 ML PEN SUBQ (12:03)
--- NOTE | 2024-06-08 14:27 | CM.NOTE ---
Discussed with pt about Eliquis and reason for medication. Pt was also provided with 30 day free trial of Eliquis and 10 dollar copay card. Both packets with informational inserts.
--- NOTE | 2024-06-09 13:07 | CM.DCFOLLOWU ---
06/09- 1st attempt. No answer
--- NOTE | 2024-06-11 13:39 | CM.DCFOLLOWU ---
Person spoke with: patient How are you feeling? well, still have some swelling in the legs and fluid, but overall better How is your pain? minimal Did you understand your discharge instructions? yes Do you have any questions about your discharge instructions? no Were you given any prescriptions at discharge? yes Were you able to get your prescriptions filled? yes Do you understand how to take your medications as ordered? yes Do you have any questions about your follow up appointment and do you plan to keep your follow up appointment? no questions, reviewed follow up apts. Is there anything else that you would like to discuss? no Questions/Comments/Concerns/Other: none
== END 2024-06-08 15:44 | disposition home or self-care (01) | DRG 291 ==
LOC: ER 14:35 → MS 06-07 07:51
PROVIDERS: Registered Nurse; Admitting Provider Family Medicine; Emergency Provider Emergency Medicine; PCP Family Medicine; Visit Provider Family Medicine
DX: I13.0 Hypertensive heart and chronic kidney disease with heart failure and stage 1 through stage 4 chronic kidney disease, or unspecified chronic kidney disease (principal); I50.33 Acute on chronic diastolic (congestive) heart failure; Z68.43 Body mass index [BMI] 50.0-59.9, adult; D69.6 Thrombocytopenia, unspecified; E66.01 Morbid (severe) obesity due to excess calories; E11.22 Type 2 diabetes mellitus with diabetic chronic kidney disease; E03.9 Hypothyroidism, unspecified; G47.33 Obstructive sleep apnea (adult) (pediatric); E78.00 Pure hypercholesterolemia, unspecified; I71.22 Aneurysm of the aortic arch, without rupture; N18.31 Chronic kidney disease, stage 3a; I48.91 Unspecified atrial fibrillation; E87.6 Hypokalemia; R60.0 Localized edema; Z90.710 Acquired absence of both cervix and uterus; Z87.01 Personal history of pneumonia (recurrent); Z79.84 Long term (current) use of oral hypoglycemic drugs; Z98.890 Other specified postprocedural states; Z79.899 Other long term (current) drug therapy; Z79.890 Hormone replacement therapy
CPT/HCPCS: 36415; 70450; 70496; 70498; 70551; 71045; 80053; 80061; 82948; 83036; 83735; 83880; 84443; 84484; 85025; 85610; 93005; 93306; 94640; 94667; 94668; 94761; 96372; 96374; 96375; 96376; 97161; 99285; G0378; J1644; J1940; Q3014; Q9967

== ENCOUNTER 2024-06-15 15:37 | Inpatient (IN) | payer MEDICARE, SELFPAY ==
[2024-06-15] VITALS (35 sets, daily range): BP systolic 77–100; BP diastolic 42–69; PULSE 0–84; TEMP 36.3–36.8; O2SAT 93–100; BMI 44.3; BMI 46.0
--- NOTE | 2024-06-15 15:43 | ECG_ITS ---
The [facility] Test Date: 2024-06-15 Pat Name: CALI SANTOS Department: Room: - Gender: Female Assessment Rn: : 1955 Requested By: KAI JARQUIN Order Number: [id number] Reading MD: JOHN ORTEGA Measurements Intervals [place] Rate: 73 P: -90800 SD: -96784 QRS: -23 QRSD: 124 T: 0 QT: 424 QTc: 449 Interpretive Statements 1210 Atrial fibrillation 2450 Right bundle branch block 3334 Anterolateral myocardial infarction, age undetermined 3633 Inferior myocardial infarction, probably old 9150 abnormal ECG Compared to ECG 06/06/2024 05:29:54 Myocardial infarct finding now present Electronically Signed On 06-16-2024 19:06:29 EDT by JOHN ORTEGA
--- NOTE | 2024-06-15 15:43 | XR_ITS ---
The [address] [address] Patient Name: CALI SANTOS MRN: [id number] date: 1955 Sex: F Assigned Patient Location: ER Current Patient Location: ER Accession/Order Number: [id number] Exam Date: 06/15/2024 16:01 Report Date: 06/15/2024 16:14 At the request of: MARY HERNANDEZ Procedure: XR chest 1V EXAM: XR chest 1V HISTORY: . sob . COMPARISON: 06/05/2024 TECHNIQUE: Single view of the chest FINDINGS: Film is underpenetrated. Heart and vascularity are unremarkable. Lungs are free of focal infiltrates. EKG leads overlie the chest. XR/XR chest 1V IMPRESSION: 1. Underpenetrated chest. 2. No acute heart or lung disease identified. Electronically authenticated by: SLY KELLEY Date: 06/15/2024 16:14
[2024-06-15 16:04] LABS: Hematocrit 24.8 % (36.0-48.0); Immature Granulocytes Abs Auto 0.04 10^3/uL (0.00-0.03); Immature Granulocytes Pct Auto 0.5 % (0.0-0.5); Lymphocytes Absolute Auto 1.6 10^3/uL (1.2-3.8); Lymphocytes Percent Auto 19.5 % (20.5-60.0); Mean Corpuscular HGB Conc 32.3 g/dL (29.9-35.2); Mean Corpuscular Hemoglobin 32.3 pg (26.7-34.0); Mean Platelet Volume 11.5 fL (9.5-13.5); Monocytes Absolute Auto 0.5 10^3/uL (0.3-0.8); Platelet Count 123 10^3/uL (150-450); Red Blood Count 2.48 10^6/uL (4.20-5.40); Red Cell Distribution Width 14.7 % (11.0-15.0); White Blood Count 8.1 10^3/uL (4.0-11.0)
--- NOTE | 2024-06-15 16:15 | ED_ITS ---
HPI HPI - General Adult General Chief complaint: Dizziness Stated complaint: Hypotension Time Seen by Provider: 06/15/24 15:42 Source: patient and family Mode of arrival: Wheelchair History of Present Illness HPI narrative: The patient is coming to the ER after recently she had multiple hospitalization starting at the almost beginning of May she was diagnosed with COVID pneumonia and was in sepsis after that she had multiple presentation after that with fluid overload she was discharged on 08 June after she had a diagnosis of A-fib as well as had a stroke ruled out at that time Patient already seen her clearance coordinator this morning who told her that he can follow-up with her after 10 days with no acute finding with the echo to be repeated 3 months from now The patient was evaluated by her primary care doctor after that visit and apparently she was weak and tired and she was found to be hypotensive, the patient have no specific symptoms of chest pain nausea vomiting or any other concern but she is generally complaining that she is weak and tired, and she felt weaker in the evening time more than the morning when she saw her clearance coordinator Related Data Home Medications ?Medication ?Instructions ?Recorded ?Confirmed albuterol sulfate 90 mcg/actuation 2 puff inhalation Q6H PRN 05/27/24 06/15/24 aerosol inhaler shortness of breath or wheezing atorvastatin 40 mg tablet 40 mg PO DAILY 05/27/24 06/15/24 fluticasone propionate 50 2 spray intranasal DAILY 05/27/24 06/15/24 mcg/actuation nasal spray,suspension glipizide 5 mg tablet 5 mg PO DAILY 05/27/24 06/15/24 levothyroxine 75 mcg tablet 75 mcg PO DAILY 05/27/24 06/15/24 losartan 100 1 tab PO DAILY 05/27/24 06/15/24 mg-hydrochlorothiazide 25 mg tablet metoprolol tartrate 25 mg tablet 25 mg PO BID 05/27/24 06/15/24 calcium carbonate 500 mg-vitamin 1 tab PO BID 06/05/24 06/15/24 D3 10 mcg (400 unit) tablet (Calcium 500 With D) Previous Rx's ?Medication ?Instructions ?Recorded apixaban 5 mg tablet (Eliquis) 5 mg PO BID 30 days #60 tabs 06/08/24 diltiazem HCl 60 mg tablet 60 mg PO BID 30 days #60 tabs 06/08/24 Allergies Allergy/AdvReac Type Severity Reaction Status Date / Time Sulfa (Sulfonamide Allergy Severe Hives Verified 06/15/24 15:47 Antibiotics) Opioid HPI Opioid Management Most Recent Opioid Data: Last Pain Scale 0 06/08/24 06:02 Last Pain Intensity 0 06/07/24 09:27 Last ORT Total Score 1 06/05/24 15:51 Last ORT Risk Category Low Risk 06/05/24 15:51 Review of Systems ROS Status of ROS 10 or more systems reviewed and unremark able except as noted in history and below [facility] Medical History (Updated 06/15/24 @ 17:11 by Laurita Hoffmann MD) Hyperlipidemia associated with type 2 diabetes mellitus ?E11.69 - Type 2 diabetes mellitus with other specified complication (ICD-10) ?E78.5 - Hyperlipidemia, unspecified (ICD-10) Reactive airway disease with acute exacerbation ?J45.901 - Unspecified asthma with (acute) exacerbation (ICD-10) Thrombocytopenia ?D69.6 - Thrombocytopenia, unspecified (ICD-10) Pneumonia ?J18.9 - Pneumonia, unspecified organism (ICD-10) Pancytopenia ?D61.818 - Other pancytopenia (ICD-10) Morbid obesity ?E66.01 - Morbid (severe) obesity due to excess calories (ICD-10) VALERIE (obstructive sleep apnea) ?G47.33 - Obstructive sleep apnea (adult) (pediatric) (ICD-10) CKD stage 3 due to type 2 diabetes mellitus ?E11.22 - Type 2 diabetes mellitus with diabetic chronic kidney disease (ICD- 10) ?N18.30 - Chronic kidney disease, stage 3 unspecified (ICD-10) Moderate protein malnutrition ?E44.0 - Moderate protein-calorie malnutrition (ICD-10) Iron deficiency anemia ?D50.9 - Iron deficiency anemia, unspecified (ICD-10) CKD stage 2 due to type 2 diabetes mellitus ?E11.22 - Type 2 diabetes mellitus with diabetic chronic kidney disease (ICD- 10) ?N18.2 - Chronic kidney disease, stage 2 (mild) (ICD-10) Hypothyroid ?E03.9 - Hypothyroidism, unspecified (ICD-10) Leaky heart valve ?I38 - Endocarditis, valve unspecified (ICD-10) Diabetes ?E11.9 - Type 2 diabetes mellitus without complications (ICD-10) HTN (hypertension) ?I10 - Essential (primary) hypertension (ICD-10) Surgical History H/O: hysterectomy ?Z90.710 - Acquired absence of both cervix and uterus (ICD-10) History of carpal tunnel release ?Z98.890 - Other specified postprocedural states (ICD-10) Previous section ?Z98.891 - History of uterine scar from previous surgery (ICD-10) Family History Mother Family history of cancer Father Family history of diabetes mellitus Grandmother Family history of stroke Social History (Updated 05/27/24 @ 18:30 by Sweetie Morel RN) Within the past year, how often did you have a drink containing alcohol: never Score interpretation: A score less than 3 is consistent with normal alcohol consumption. Smoking status: Never smoker Non-prescribed substance use: denies use Highest level of school completed/degree received: high school graduate Exam Narrative Exam Narrative: Nurses notes and vital signs reviewed and patient is not hypoxic. General: Well-appearing and in no apparent distress. Skin: Warm, dry, no pallor noted. No rash. Head: Normocephalic, atraumatic. Neck: Supple, non-tender. Eye: Pupils are equal, round and EOMI. No scleral icterus. Ears, Nose, Mouth, and Throat: TM are clear, no nasal mucosal hypertrophy. Oral mucosa is moist, no posterior oropharynx erythema, uvula is mid-line Cardiovascular: Regular Rate and Rhythm without murmur, gallop or rub. Respiratory: No accessory muscle use or respiratory distress. Lungs are clear to auscultation, no wheezing, rales or rhonchi Chest Wall: no tenderness Back: No midline thoracic or lumbar vertebral tenderness. No CVA tenderness Musculoskeletal: normal ROM, no calf or popliteal tenderness, bilateral 1+ pitting edema GI: Abdomen is soft, non-distended. Normal bowel sounds. No masses appreciated. No tenderness to palpation. No rebound, guarding, or rigidity noted. Neurological: A&O x4. No cranial nerve dysfunction observed. No truncal ataxia. Moves all extremities. Sensation intact. Psychiatric: Cooperative and interactive. Normal mood and affect. Constitutional Vital Signs, click to edit/add: Last Vital Signs Temp 97.7 F 06/15/24 15:47 Pulse 66 06/15/24 15:47 Resp 18 06/15/24 15:47 BP 91/58 06/15/24 15:47 Pulse Ox 96 06/15/24 15:47 O2 Del Method Room Air 06/15/24 15:47 Course Vital Signs Vital signs: Vital Signs Temperature 97.7 F 06/15/24 15:47 Pulse Rate 66 06/15/24 15:47 Respiratory Rate 18 06/15/24 15:47 Blood Pressure 91/58 06/15/24 15:47 Pulse Oximetry 96 06/15/24 15:47 Oxygen Delivery Method Room Air 06/15/24 15:47 Temperature 97.7 F 06/15/24 15:47 Pulse Rate 66 06/15/24 15:47 Respiratory Rate 18 06/15/24 15:47 Blood Pressure 91/58 06/15/24 15:47 Pulse Oximetry 96 06/15/24 15:47 Oxygen Delivery Method Room Air 06/15/24 15:47 Medical Decision Making [facility] Narrative Medical decision making narrative: Patient EKG showing A-fib with a heart rate of almost 64 and the EKG is reading 73 but the patient also had a right bundle henny block The patient although initially she was hypotensive at 88/56 in the primary care doctor office she was found to be 91 systolic initially upon arrival she had no symptoms at any time of dizziness her symptoms were mostly tiredness and decreased energy The patient CBC shows a drop in hemoglobin from 10.9-8 and the patient initially did not express any symptoms of blood in stool but when asked about black stool she mentioned yes--- rectal exam shows no hemorrhoids but there is black stool that was sent for occult The patient had no abdominal pain at any time and her blood pressure was in the lower normal and upper 80s initially and due to the fact that she recently was admitted for diuresis I was cautiously started hand fluid only 500 cc fluid bolus at each time until we obtain a normal blood pressure Patient chemistry shows elevated creatinine to 3.9 with BUN of 125 Patient lactic is just above 2 The patient right now will be admitted for hydration as well as further monitoring for her black stool and possible bleeding It was noted that the patient INR is 2.5 although she does not take any Coumadin The patient case was discussed with Dr. Rahman and he agreed admitting the patient for further management Lab Data Labs: Lab Results 06/15/24 Range/Units 15:56 WBC 8.1 (4.0-11.0) 10^3/uL RBC 2.48 L (4.20-5.40) 10^6/uL Hgb 8.0 L (12.0-16.0) g/dL Hct 24.8 L (36.0-48.0) % MCV 100.0 H (81.0-99.0) fL MCH 32.3 (26.7-34.0) pg MCHC 32.3 (29.9-35.2) g/dL RDW 14.7 (11.0-15.0) % Plt Count 123 L (150-450) 10^3/uL MPV 11.5 (9.5-13.5) fL Neut % (Auto) 74.0 (43.0-75.0) % Lymph % (Auto) 19.5 L (20.5-60.0) % [place] % (Auto) 6.0 (1.7-12.0) % Eos % (Auto) 0.0 L (0.9-7.0) % Baso % (Auto) 0.0 L (0.2-2.0) % Neut # (Auto) 6.0 (1.4-6.5) 10^3/uL Lymph # (Auto) 1.6 (1.2-3.8) 10^3/uL [place] # (Auto) 0.5 (0.3-0.8) 10^3/uL Eos # (Auto) 0.0 (0.0-0.7) 10^3/uL Baso # (Auto) 0.0 (0.0-0.1) 10^3/uL Abs Immat Gran (auto) 0.04 H (0.00-0.03) 10^3/uL Imm/Tot Granulo (auto) 0.5 (0.0-0.5) % PT 24.7 H (9.0-11.6) sec INR 2.56 Sodium 137 (136-145) mmol/L Potassium 3.9 (3.5-5.1) mmol/L Chloride 103 (98-107) mmol/L Carbon Dioxide 23.7 (21.0-32.0) mmol/L Anion Gap 14.2 BUN 125.0 H* (7.0-18.0) mg/dL Creatinine 3.92 H (0.55-1.02) mg/dL Est GFR ( Amer) 14 L (>=60) Est GFR (Non-Af Amer) 11 L (>=60) BUN/Creatinine Ratio 31.9 Glucose 162 H (74-106) mg/dL Lactate 2.5 H* (0.4-2.0) mmol/L Calcium 9.0 (8.5-10.1) mg/dL Magnesium 2.1 (1.8-2.4) mg/dL Total Bilirubin 1.3 H (0.2-1.0) mg/dL AST 85 H (15-37) U/L ALT 73 H (14-59) U/L Alkaline Phosphatase 84 (46-116) U/L Troponin I High Sens 25.2 (4.0-51.3) pg/mL NT-Pro-B Natriuret Pep 3489.0 H* (<=900.0) pg/mL Total Protein 5.5 L (6.4-8.2) g/dL Albumin 2.7 L (3.4-5.0) g/dL Globulin 2.8 g/dL Albumin/Globulin Ratio 1.0 Discharge Plan Discharge Chief Complaint: Dizziness Clinical Impression: Acute renal failure, Hypotension, Melena, Anemia Patient Disposition: Admitted As Inpatient Time of Disposition Decision: 17:11
[2024-06-15 16:18] LABS: INR 2.56; Prothrombin Time 24.7 sec (9.0-11.6)
[2024-06-15 16:31] LABS: Alanine Aminotransferase 73 U/L (14-59); Albumin Level 2.7 g/dL (3.4-5.0); Alkaline Phosphatase 84 U/L (46-116); Anion Gap 14.2; Aspartate Amino Transferase 85 U/L (15-37); BUN Creatinine Ratio 31.9; Bilirubin Total 1.3 mg/dL (0.2-1.0); Carbon Dioxide 23.7 mmol/L (21.0-32.0); Chloride 103 mmol/L (98-107); Estimated GFR (African America 14 (>=60); Estimated GFR (Non-African Ame 11 (>=60); Globulin 2.8 g/dL; Glucose 162 mg/dL (74-106); Magnesium 2.1 mg/dL (1.8-2.4); Potassium 3.9 mmol/L (3.5-5.1); Sodium 137 mmol/L (136-145); Total Protein 5.5 g/dL (6.4-8.2); Troponin I High Sensitivity 25.2 pg/mL (4.0-51.3)
[2024-06-15 16:36] LABS: Lactate/Lactic Acid 2.5 mmol/L (0.4-2.0)
[2024-06-15] MEDS: 0.9 % SODIUM CHLORIDE 1,000 ML 500 ML IV (16:51)
[2024-06-15 17:53] LABS: Lactate/Lactic Acid 1.9 mmol/L (0.4-2.0)
--- NOTE | 2024-06-15 18:00 | P.HP_ITS ---
HPI H&P: HPI History of Present Illness Chief complaint: Hypotension, Acute Renal Failure, Melena Narrative: Patient present to the emergency room with just generalized weakness. Denies cough denies chest pain denies dyspnea. She does have some abdominal pain. With occasional loose stools. In the ER found to have significant hypotension with blood pressure 77/50 and acute upper gastrointestinal blood loss anemia secondary to acute upper gastrointestinal bleeding, patient admitted for workup and treatment of same When I saw patient in the emergency room, she was in the cot resting comfortably, again denied any chest pain or shortness of breath just generally feels weak. Difficulty ambulating secondary to the weakness. Opioid HPI Opioid Management Most Recent Pain and Opioid Data: Last Pain Scale 0 06/08/24 06:02 Last Pain Intensity 0 06/07/24 09:27 Last ORT Total Score 1 06/05/24 15:51 Last ORT Risk Category Low Risk 06/05/24 15:51 Review of Systems ROS Status of ROS 10 or more systems reviewed and unremark able except as noted in history and below [facility] Medical History (Updated 06/15/24 @ 17:11 by Laurita Hoffmann MD) Hyperlipidemia associated with type 2 diabetes mellitus ?E11.69 - Type 2 diabetes mellitus with other specified complication (ICD-10) ?E78.5 - Hyperlipidemia, unspecified (ICD-10) Reactive airway disease with acute exacerbation ?J45.901 - Unspecified asthma with (acute) exacerbation (ICD-10) Thrombocytopenia ?D69.6 - Thrombocytopenia, unspecified (ICD-10) Pneumonia ?J18.9 - Pneumonia, unspecified organism (ICD-10) Pancytopenia ?D61.818 - Other pancytopenia (ICD-10) Morbid obesity ?E66.01 - Morbid (severe) obesity due to excess calories (ICD-10) VALERIE (obstructive sleep apnea) ?G47.33 - Obstructive sleep apnea (adult) (pediatric) (ICD-10) CKD stage 3 due to type 2 diabetes mellitus ?E11.22 - Type 2 diabetes mellitus with diabetic chronic kidney disease (ICD- 10) ?N18.30 - Chronic kidney disease, stage 3 unspecified (ICD-10) Moderate protein malnutrition ?E44.0 - Moderate protein-calorie malnutrition (ICD-10) Iron deficiency anemia ?D50.9 - Iron deficiency anemia, unspecified (ICD-10) CKD stage 2 due to type 2 diabetes mellitus ?E11.22 - Type 2 diabetes mellitus with diabetic chronic kidney disease (ICD- 10) ?N18.2 - Chronic kidney disease, stage 2 (mild) (ICD-10) Hypothyroid ?E03.9 - Hypothyroidism, unspecified (ICD-10) Leaky heart valve ?I38 - Endocarditis, valve unspecified (ICD-10) Diabetes ?E11.9 - Type 2 diabetes mellitus without complications (ICD-10) HTN (hypertension) ?I10 - Essential (primary) hypertension (ICD-10) Surgical History H/O: hysterectomy ?Z90.710 - Acquired absence of both cervix and uterus (ICD-10) History of carpal tunnel release ?Z98.890 - Other specified postprocedural states (ICD-10) Previous section ?Z98.891 - History of uterine scar from previous surgery (ICD-10) Family History Mother Family history of cancer Father Family history of diabetes mellitus Grandmother Family history of stroke Social History (Updated 05/27/24 @ 18:30 by Sweetie Morel RN) Within the past year, how often did you have a drink containing alcohol: never Score interpretation: A score less than 3 is consistent with normal alcohol consumption. Smoking status: Never smoker Non-prescribed substance use: denies use Highest level of school completed/degree received: high school graduate Meds Home Medications and Allergies Home Medications ?Medication ?Instructions ?Recorded ?Confirmed ?Type albuterol sulfate 90 mcg/actuation 2 puff inhalation Q6H PRN 05/27/24 06/15/24 History aerosol inhaler shortness of breath or wheezing atorvastatin 40 mg tablet 40 mg PO DAILY 05/27/24 06/15/24 History fluticasone propionate 50 2 spray intranasal DAILY 05/27/24 06/15/24 History mcg/actuation nasal spray,suspension glipizide 5 mg tablet 5 mg PO DAILY 05/27/24 06/15/24 History levothyroxine 75 mcg tablet 75 mcg PO DAILY 05/27/24 06/15/24 History losartan 100 1 tab PO DAILY 05/27/24 06/15/24 History mg-hydrochlorothiazide 25 mg tablet metoprolol tartrate 25 mg tablet 25 mg PO BID 05/27/24 06/15/24 History calcium carbonate 500 mg-vitamin 1 tab PO BID 06/05/24 06/15/24 History D3 10 mcg (400 unit) tablet (Calcium 500 With D) apixaban 5 mg tablet (Eliquis) 5 mg PO BID 30 days #60 tabs 06/08/24 06/15/24 Rx diltiazem HCl 60 mg tablet 60 mg PO BID 30 days #60 tabs 06/08/24 06/15/24 Rx Allergies Allergy/AdvReac Type Severity Reaction Status Date / Time Sulfa (Sulfonamide Allergy Severe Hives Verified 06/15/24 15:47 Antibiotics) Exam Constitutional Vital Signs, click to edit/add: Last Vital Signs Temp 97.7 F 06/15/24 15:47 Pulse 67 06/15/24 17:34 Resp 17 06/15/24 17:30 BP 98/52 06/15/24 17:30 Pulse Ox 99 06/15/24 17:30 O2 Del Method Room Air 06/15/24 15:47 Documenting provider has reviewed patient's vital signs: yes Common normals: apparent distress (Appears very fatigued) Chest Common normals: inspection of chest normal Respiratory Common normals: normal respiratory effort, no retractions and clear to auscultation bilaterally Cardio Common normals: regular rate Rhythm: abnormal rhythm GI Common normals: soft to palpation; negative for Normal to inspection, nondistended, normoactive bowel sounds present (Morbidly obese) and tender (Upper abdominal and suprapubic tenderness) Extremity Common normals: normal to inspection, full ROM and no clubbing, cyanosis or edema Results Labs Labs: Short CBC 06/15/24 Range/Units 15:56 WBC 8.1 (4.0-11.0) 10^3/uL Hgb 8.0 L (12.0-16.0) g/dL Hct 24.8 L (36.0-48.0) % Plt Count 123 L (150-450) 10^3/uL BMP 06/15/24 15:56 Sodium 137 Potassium 3.9 Chloride 103 Carbon Dioxide 23.7 BUN 125.0 H* Creatinine 3.92 H Glucose 162 H Calcium 9.0 Liver Function 06/15/24 Range/Units 15:56 Total Bilirubin 1.3 H (0.2-1.0) mg/dL AST 85 H (15-37) U/L ALT 73 H (14-59) U/L Alkaline Phosphatase 84 (46-116) U/L Albumin 2.7 L (3.4-5.0) g/dL Assessment and Plan Assessment and Plan (1) Anemia: (2) Hypotension: (3) New onset a-fib: (4) Melena: (5) Acute renal failure: Plan Admission findings: Sinus bradycardia, paradoxical to blood pressure, hyp otension blood pressure 77/50, acute blood loss anemia with hemoglobin down 2 g from previous, thrombocytopenia, acute renal failure, baseline creatinine of 1.44, 3.92 on admission-that would be 272.2% above baseline. Positive lactate. Elevated liver function tests, coagulopathy with elevated pro time all these findings are consistent with suspected early onset sepsis with acute upper gastrointestinal bleeding. Source of infection likely urinary Acute blood loss anemia secondary to acute upper gastrointestinal bleeding with melena, on Eliquis, dose was recently changed from 2.5 to 5 mg twice a day, hemoglobin down over 2 g from baseline. Will give 1 unit, hemoglobin is at 8. Repeat CBC if hemoglobin still low will likely require a second unit. Start patient on IV Protonix as twice daily dosing Atrial fibrillation with bradycardia-hold off on Eliquis. Thrombocytopenia-this has been chronic for her-monitor daily Acute renal failure likely secondary to dehydration versus sepsis-giving 1 unit of blood and will give fluids. With a history of acute combined congestive heart failure cannot give aggressive fluid management. Hold off on diuretics after 1 unit of PRBCs Elevated liver function test with coagulopathy-May need abdominal ultrasound. Check ammonia level Positive lactate-still suspecting early sepsis-despite normal white blood cell count, she is having a paradoxical effect with her bradycardia despite hypotension as well as her coagulopathy-start patient on IV antibiotics, urine culture pending. Admission status: Patient with acute blood loss anemia, she will need transfusion tonight, likely will need a second unit later, cannot be aggressive with fluid resuscitation secondary to history of heart failure, with the also renal failure, liver M time elevation and coagulopathy suspecting infectious etiology, medically necessary treatment will span 2 midnights. Inpatient status.
[2024-06-15 18:10] LABS: Internal Control Within Normal Limits; Occult Blood Positive
--- OUTSIDE RECORDS SUMMARY | 2024-06-15 18:10 | XMS_ITS | CCD ---
Author Organization [facility] Care Team Providers Care News Copy Editor Name Role Phone PHYSICIAN, DEFAULT Admitting Unavailable [...] Ortiz Consulting Unavailable FLAQUITO, DR FERNY Ortiz Primary Care Unavailable ARUNA, HOLLY Admitting Unavailable HOLLY VALDOVINOS Attending Unavailable HOLLY VALDOVINOS Consulting Unavailable FLAQUITO, DR FERNY Ortiz Primary Care Unavailable FERNY HUDDLESTON Primary Care Physician [phone] Willian Barrios Primary Care Physician [phone] DELMAR DOUGLAS Attending Unavailable Lucas Bates Attending [...] Unavailable Al-Marradawson, Mariah Davison Attending Unavailabl e Al-Marradawsno, Mariah Yaser Admitting Unavailabl e Willian Barrios [...] Barrios Attending Unavailable Willian Barrios Attending Unavailable HUMPHREY HUFFMAN Attending Unavailable Willian Barrios Attending Unavailable Willian Barrios Attending Unavailable Willian Barrios Admitting Unavailable Willian Barrios Referring Unavailable MD Mariah Amin Attending Unavail able MD Mariah Amin Admitting Unavail able Willian Barrios Admitting Unavailable Willian Barrios Admitting Unavailable Allergies Allergy Classification Reported Allergen(s) Allergy Type Date of Onset Reaction(s) Facility metFORMIN (1 source) metFORMIN; Translations: [metformin] Drug Allergy Dizziness (finding), Unknown (qualifier value) [facility] Sulfonamides (antibiotic) (1 source) Sulfonamides (Antibiotic); Translations: [sulfa drugs] Drug Allergy Unknown (qualifier value) [facility] (3 sources) Sulfonamides (Antibiotic); Translations: [SULFA (SULFONAMIDE ANTIBIOTICS)] Drug allergy (disorder) 6 [facility] Repository (4 sources) metFORMIN; Translations: [METFORMIN] Drug Allergy 1 [facility] Repository (19 sources) metFORMIN; Translations: [metformin] Drug Allergy Unknown (qualifier value), Dizziness (finding) [facility] (20 sources) Sulfonamides (Antibiotic); Translations: [sulfa drugs] Drug allergy Unknown (qualifier value) [facility] Medications Current Medications Medication Drug Class(es) Dates Sig (Normalized) Sig (Original) Albuterol (Eqv-ProAir HFA) 90 mcg/inh inhalation aerosol (11 sources) Start: 06-30-2023 take 2 puff(s) by inhalation every six hours Albuterol (Eqv-ProAir HFA) 90 mcg/inh inhalation aerosol 2 puff(s), Inhalation, q6hr, 18 gm, Refill(s) 0, [id number], 150, cm, 06/30/23 11:19:00 EDT, Height/Length [...] DAY, # 90 tab(s), Refills(s) 0, Pharmacy: [facility] [place] [facility] [id number], 152, cm, 09/17/23 13:20:00 EST, Height/Length Dosing, 11.2, kg, 09/17/23 13:20:00 EST, Weight Dosing Start Date: 09/22/23 Status: Ordered Start: 06-30-2023 take 1 tablet by leela th once daily Lipitor 40 mg Tab 40 mg = 1 tab(s), Oral, Daily, # 90 tab(s), Refills(s) 0, [id number], 150, cm, 06/30/23 11:19:00 EDT, Height/Length Dosing, 112.8, kg, 06/30/23 11:19:00 EDT, Weight Dosing Start Date: 06/30/23 Status: Ordered Beclomethasone Dipropionate 0.08 MG/ACTUAT Metered Dose Inhaler (4 sources) Corticosteroid Start: 01-06-2024 take 2 puff(s) by inhalation twice daily beclomethasone 80 mcg/inh Inh Aer w/Adapt 2 puff(s), Inhalation, BID, 10.6 gm, Refill(s) 1, [id number], 152, cm, 01/02/24 11:02:00 EDT, Height/Length Dosing, 112.3, kg, 01/02/24 11:02:00 EDT, Weight Dosing Start Date: 01/06/24 Status: Ordered Budesonide 0.09 MG/ACTUAT Dry Powder Inhaler (7 sources) Corticosteroid Start: 09-25-2023 budesonide 90 mcg/inh inhalation powder 1 inh, Inhalation, BID, 1 EA, Refill(s) 11, [id number], 152, cm, 09/24/23 14:41:00 EST, [...] Corticosteroid Start: 04-12-2024 fluticasone Nasal 0.05 mg/inh [place] See Instructions, 48 mL, Refill(s) 1, INSTILL 2 SPRAYS IN EACH NOSTRIL ONCE A DAY, [facility], 152, cm, 03/29/24 10:40:00 EDT, Height/Length Dosing, 111.8, kg, 03/29/24 10:40:00 EDT, Weight Dosing Start Date: 04/12/24 Status: Ordered Start: 10-16-2023 fluticasone Na robyn 0.05 mg/inh [place] See Instructions, 48 mL, Refill(s) 1, USE 2 SPRAYS IN EACH NOSTRIL ONCE A DAY, [facility], 152, cm, 10/01/23 12:44:00 EST, Height/Length Dosing, 111.6, kg, 10/01/23 12:44:00 EST, Weight Dosing Start Date: 10/16/23 Status: Ordered Start: 09-24-2023 Flonase 0.05 m g/inh [place] 2 spray(s), Nasal, Daily, 16 gram, Refill(s) 0, each nostril, [id number], 152, cm, 09/24/23 14:41:00 EST, Height/Length Dosing, 109.8, kg, 09/24/23 14:41:00 EST, Weight Dosing Start Date: 09/24/23 Status: Ordered glipiZIDE 5 mg oral tablet (20 sources) Sulfonylurea Start: 09-29-2023 take 1 tablet by mouth once daily glipiZIDE 5 mg Tab 5 mg = 1 tab(s), Oral, Daily, # 90 tab(s), Refills(s) 3, [id number], 152, cm, 09/29/23 11:20:00 EST, Height/Length Dosing, 111, kg, 09/29/23 11:20:00 EST, Weight Dosing Start Date: 09/29/23 Status: Ordered Start: 04-22-2023 take 1 tablet by leela th once daily glipiZIDE 5 mg Tab 5 mg = 1 tab(s), Oral, Daily, # 90 tab(s), Refills(s) 3, Pharmacy: [id number], 150.8, cm, 03/31/23 11:24:00 EDT, Height/Length [...] Daily, # 90 tab(s), Refills(s) 3, Pharmacy: [id number], 150.8, cm, 07/24/23 9:39:00 EDT, Height/Length Dosing, 114, kg, 07/24/23 9:39:00 EDT, Weight Dosing Start Date: 07/28/23 Status: Ordered Start: 06-09-2023 take 1 tablet by leela th once daily levothyroxine 75 mcg (0.075 mg) Tab 75 mcg = 1 tab(s), Oral, Daily, # 90 tab(s), Refills(s) 0, Pharmacy: [id number], 150.8, cm, 06/04/23 13:05:00 EDT, [...] day(s), # 120 tab(s), Refills(s) 0, Pharmacy: [id number], 152, cm, 03/29/24 10:40:00 EDT, Height/Length Dosing, 111.8, kg, 03/29/24 10:40:00 EDT, Weight Dosing Start Date: 03/30/24 Stop Date: 05/29/24 Status: Ordered Start: 02-07-2023 take 1 tablet by [facility] twice daily Metoprolol tartrate 25 mg Tab 25 mg = 1 tab(s), Oral, BID, Refills(s) 0, High blood pressure Start Date: 02/07/23 Status: Ordered Oystercal-D oral tablet (7 sources) Start: 11-24-2023 Oystercal-D or al tablet 1 tab(s), Oral, BID, 100 tab(s), Refill(s) 2, [id number], 152, cm, 10/01/23 12:44:00 EST, Height/Length Dosing, 111.6, kg, 10/01/23 12:44:00 EST, Weight Dosing Start Date: 11/24/23 Status: Ordered polyethylene glycol 3350 125335 mg / potassium chloride 1480 mg / sodium bicarbonate 5720 mg / sodium chloride 43814 mg powder for oral solution (8 sources) Osmotic Laxative Start: 10-01-2023 NuLYTELY Eliz ry oral powder for reconstitution See Instructions, 1 EA, Refill(s) 0, Prior to colonsocopy., [id number], 152, cm, 10/01/23 12:44:00 EST, Height/Length Dosing, 111.6, kg, 10/01/23 12:44:00 EST, Weight Dosing Start Date: 10/01/23 Status: Ordered Start: 06-04-2023 Ya ortiz oral powder for reconstitution See Instructions, 1 EA, Refill(s) 0, Oral, [id number], 150.8, cm, 06/04/23 13:05:00 EDT, [...] TAKE 1 TABLET BY MOUTH EVERY DAY, [facility], 152, cm, 03/29/24 10:40:00 EDT, Height/Length Dosing, 111.8, kg, 03/29/24 10:40:00 EDT, Weight Dosing Start Date: 04/12/24 Status: Ordered Start: 07-28-2023 hydrochlorothi azide-losartan 25 mg-100 mg Tab 1 tab(s), Oral, Daily, 90 tab(s), Refill(s) 1, [id number], 150.8, cm, 07/24/23 9:39:00 EDT, [...] puff(s), Inhalation, BID, 1 EA, Refill(s) 0, [id number], 152, cm, 09/24/23 14:41:00 EST, [...] Translations: [Chronic kidney disease, stage 3a] Onset: 12-15-1903-18-2023 Chronic Coagulation and hemorrhagic disorders (20 sources) [...] Name Value Interpretation Reference Range Facil ity Ambulatory Visit Summaryon 0 06-15-2024 Ambulatory Visit Summary Ambulatory Visit Summary MISA SANTOS :1955 Visit Date:06/15/2024 Ambulatory Visit Instructions Your Diagnosis BMI 50.0-59.9, adult, Body mass index [BMI] 50.0-59.9, adult Class 3 severe obesity due to excess calories with body mass index (BMI) of 50.0 to 59.9 in adult Nonsmoker Your Care Team Attending Physician - Willian Barrios MD Primary Care Physician - Willian Barrios MD This Is Your Medications List Misc Prescription (Lancets) Misc Prescription (Misc DME Prescription) Misc Prescription (Misc DME Prescription) albuterol (Albuterol (Eqv-ProAir HFA) 90 mcg/inh inhalation aerosol) apixaban (Eliquis) atorvastatin (atorvastatin 40 mg Tab) calcium-vitamin D (calcium (as carbonate)-vitamin D 500 mg-400 intl units oral tablet) diltiazem ferrous sulfate (ferrous sulfate 325 mg oral enteric coated tablet) fluticasone nasal (fluticasone Nasal 0.05 mg/inh [place]) glipiZIDE (glipiZIDE 5 mg Tab) hydrochlorothiazide-losart an (hydrochlorothiazide-losar julian 25 mg-100 mg Tab) levothyroxine (levothyroxine 75 mcg (0.075 mg) Tab) metoprolol (Metoprolol tartrate 25 mg Tab) Procedures Performed Colonoscopy (02/06/2024), Colonoscopy (07/24/2023), Bone marrow biopsy (06/24/2023), Carpal tunnel release, section, AWA BSO - Total abdominal hysterectomy and bilateral salpingo-oophorectomy. Discharge Vitals Temperature (Temporal Artery) 36.4 ?C Heart Rate (Peripheral) 66 Respiratory Rate 20 Blood Pressure 88/56 Height 60 in Height 152 cm Weight 259.38 lb Weight 117.9 kg BMI 51.03 What to do next Scheduled Follow-Up Appointments Friday 10:00 AM EDT With: Eloisa PATTEN, Mariah Davison Where: [facility] Friday 9:30 AM EST With: Denis PATTEN, Willian Weiner Where: [address] [address]- Friday 11:00 AM EST With: Where: [address] [address]- Medications What How Much When Why Instructions Unchanged albuterol (Albuterol (Eqv-ProAir HFA) 90 mcg/ inh inhalation aerosol) See instructions INHALE 2 PUFFS EVERY 6 HOURS Unchanged apixaban (Eliquis) 5 Milligram By Mouth 2 times a day Unchanged atorvastatin (atorvastatin 40 mg Tab) See instructions TAKE 1 TABLET BY MOUTH EVERY DAY Unchanged calcium-vitamin D (calcium (as carbonate)-vitamin D 500 mg-400 intl units oral tablet) See instructions TAKE 1 TABLET BY MOUTH TWICE A DAY Unchanged diltiazem 60 Milligram By Mouth 2 times a day Unchanged ferrous sulfate (ferrous sulfate 325 mg oral enteric coated tablet) 1 Tablets By Mouth Every day Unchanged fluticasone nasal (fluticasone Nasal 0.05 mg/ inh [place]) See instructions INSTILL 2 SPRAYS IN EACH NOSTRIL ONCE A DAY Unchanged glipiZIDE (glipiZIDE 5 mg Tab) See instructions TAKE 1 TABLET BY MOUTH EVERY DAY Unchanged hydrochlorothiazide-losart an (hydrochlorothiazide-losar julian 25 mg-100 mg Tab) See instructions TAKE 1 TABLET BY MOUTH EVERY DAY Unchanged levothyroxine (levothyroxine 75 mcg (0.075 mg) Tab) 1 Tablets By Mouth Every day Unchanged metoprolol (Metoprolol tartrate 25 mg Tab) 1 Tablets By Mouth 2 times a day Unchanged Misc Prescription (Lancets) See instructions Diabetes To be used once a day to obtain blood sugars Dx: E11.9 Unchanged Misc Prescription (Misc DME Prescription) See instructions one touch test strips. Use to test blood sugars once a day Dx E11.9 Unchanged Misc Prescription (Misc DME Prescription) See instructions Diabetes one touch test strips. Use to test blood sugars once a day Dx E11.9 Allergies metFORMIN (Nausea, Dizziness, Unknown) sulfa drugs (Hives, Unknown) Problems Ongoing - Any problem that you are currently receiving treatment for. Allergic rhinitis Anal fissure Anemia Breast cancer screening Class 3 obesity Cough History of colon polyps Hypertension Hypothyroid Lymphopenia Osteoporosis Restrictive lung disease Stage 3a chronic kidney disease (CKD) Thrombocytopenia Total bilirubin, elevated Tremor, essential Type 2 diabetes mellitus with stage 3a chronic kidney disease and hypertension Patient Survey You may receive a survey via text or e-mail asking about your office visit. Please share your experience with us by completing your survey. We appreciate your feedback and thank you for choosing us for your care. Normal [facility] Family Medicine Office/Clini c Noteon 06-15-2024 Family Medicine Office/Clinic Note Family Medicine Office/Clinic Note HPI Staff Misa is a 69 year old female presenting for [facility] hospital follow up Patient was in on the and admitted then back again on the !st time pneumonia, second time a fib phq: 5 phq9: 16 TCM: Hospital: [facility] Admission date: 06/05 Discharge date: 06/08 Symptoms the patient presented with: CHF exacerbation and new onset a fib Current concerns: seen base cloth inspector this am ([facility] [place]) he seems to think she has a touch of pneumonia but didn't do any test and increased her eliquis to 5mg, did an EKG which is still detecting an irregular heartbeat History of Present Illness Patient presents to the office today very short of breath. Patient is very weak and having to lean against the marrufo for stability. Patient has no ambulatory aid. Patient is doing some pursed lip breathing when she ambulates. Patient recently saw cardiology as per staff HPI. Patient states that her breathing is worse than it was when she left the hospital last time. Patient states she can barely get anything done. Patient's blood pressure initially was low and on recheck was even lower. At that time I spoke with the ER at [facility] and had the patient go there for further workup. Advised EMS transport however patient declined. Review of Systems PHQ Score Initial Depression Screen Score: 5 SCORE Detailed Depression Screen Score: 11 Total Depression Screen Score: 16 Physical Exam Vitals & Measurements T: 36.4 ?C(Temporal Artery) HR: 66(Peripheral) RR: 20 BP: 88/56 SpO2: 97% HT: 60 in HT: 152 cm WT: 117.9 kg WT: 259.38 lb BMI: 51.03 General: alert, no acute distress ENMT: oral mucosa moist, Cardiovascular: irregularly-irregular rate and rhythm, normal peripheral perfusion Respiratory: Diminished lung sounds at the bases. Pursed lip breathing. Extremities: no deformity, no trauma, trouble with ambulation. Neurological: oriented x 4, LOC appropriate for age, CN II-XII intact, motor strength equal & normal bilaterally, speech normal Assessment/Plan 1. CHF exacerbation (I50.9: Heart failure, unspecified) Unsure if this is CHF exacerbation as I do not hear fluid in the lungs. Patient does have less air movement in the lower lung pryor. Patient states she feels as if she has fluid in her abdomen. Encouraged the patient to do rehab. Encouraged the patient to see pulm while in the hospital. 2. SOB (shortness of breath) (R06.02: Shortness of breath) Unsure the cause of the shortness of breath. Could be atrial fibrillation however patient was not in RVR. Patient's heart rate would increase into the 100s on exertion but would go back down. 3. Atrial fibrillation (I48.91: Unspecified atrial fibrillation) As above. 4. BMI 50.0-59.9, adult (Z68.43: Body mass index [BMI] 50.0-59.9, adult) BMI education added Ordered: Body Mass Index (BMI) documented 3008F Current tobacco non-user 1036F Depression Screening Positive 3354F Most recent diastolic blood pressure <80 mm Hg 3078F Patient screen for fall risk: no falls in last year or 1 fall with no injury in last year 1101F Systolic BP <130 mm Hg (Most Recent) 3074F 5. Class 3 severe obesity due to excess calories with body mass index (BMI) of 50.0 to 59.9 in adult (E66.01: Morbid (severe) obesity due to excess calories) Unable to do diet and exercise at this time. Ordered: Body Mass Index (BMI) documented 3008F Current tobacco non-user 1036F Depression Screening Positive 3354F Most recent diastolic blood pressure <80 mm Hg 3078F Patient screen for fall risk: no falls in last year or 1 fall with no injury in last year 1101F Systolic BP <130 mm Hg (Most Recent) 3074F 6. Nonsmoker (Z78.9: Other specified health status) Please continue not to smoke. Ordered: Body Mass Index (BMI) documented 3008F Current tobacco non-user 1036F Depression Screening Positive 3354F Most recent diastolic blood pressure <80 mm Hg 3078F Patient screen for fall risk: no falls in last year or 1 fall with no injury in last year 1101F Systolic BP <130 mm Hg (Most Recent) 3074F 7. Hypertension (I10: Essential (primary) hypertension) Hypotension on repeat. Orders: albuterol, 2 puff(s), Inhalation, q6hr, 18 gm, Refill(s) 0, [id number], 152, cm, 05/21/24 11:19:00 EDT, Height/Length Dosing, 117.5, kg, 05/21/24 11:23:00 EDT, Weight Dosing Total time spent preparing for the encounter, evaluating and assessing the patient, documenting the visit, and ordering appropriate follow-up work was 40 minutes. Follow-up No qualifying data available Problem List/Past Medical History Ongoing Allergic rhinitis Anal fissure Anemia Atrial fibrillation Breast cancer screening CHF exacerbation Class 3 obesity Cough History of colon polyps Hypertension Hypothyroid Lymphopenia Osteoporosis Restrictive lung disease SOB (shortness of breath) Stage 3a chronic kidney disease (CKD) Thrombocytopenia Total bilirubin, elevated Ricardo (more content not included)... Normal [facility] Comment on above: Result Comment: Elec tronically Signed By: Willian Barrios MD\.br\Date and Time Signed: 06/15/24 15:32 EDT [facility] 06-11-20 [facility] Case Information Case Priority: None Programs: -- Referral Source: Auto Transmission Specialist Referral Reason: Care coordination Case Type: Transition Care Management Risk Score: -- Case Status: Enrolled (June 09, 2024) Date Assigned: June 09, 2024 Assigned By: Willie Walker Date Enrolled: June 09, 2024 Assigned Primary Personnel: Willie Walker Assigned Secondary Personnel: -- Case Physician: Willian Barrios MD Problems Ongoing Allergic rhinitis Anal fissure Anemia Breast [...] mg-400 intl units oral tablet, See Instructions diltiazem, 60 mg, Oral, BID Eliquis, 5 mg, Oral, BID ferrous sulfate 325 mg oral enteric coated tablet, 325 mg= 1 tab(s), Oral, Daily fluticasone Nasal 0.05 mg/inh [place], See Instructions glipiZIDE 5 mg Tab, See Instructions hydrochlorothiazide-losart an 25 mg-100 mg Tab, See [...] Father. Metastatic cancer: Mother. Screenings and Assessments 06/09/24 16:14:00 Result Name Value Comment Phone Call Monitoring Consent Agreed to continue call Phone Verification Patient Information Full name, street address and date of verified CM Program Enrollment Provides verbal consent for enrollment Goals and Interventions Care Plan Progress Note TCM#2- Patient returned call. Patient does not have a weight or vitals to report. Patient reports no one has really had time to purchase for her. CN explained to patient the importance of monitoring, she verbalized understanding. CN offered referral for Paramedicine and explained their services, states she will discuss with her son and call back. Patent reports swelling is 'better in the morning' and then 'comes back by bedtime, but 'not as bad.' Patient states her legs feel weak. Patient denies any CP or SOB. Patient denies palpitations or lightheadedness/dizziness. Patient is concerned she may not be eating enough. CN and patient discussed healthy food choices to promote healing such as adequate protein and low sodium. Reviewed fluid restrictions with patient. CN reviewed some chair exercises to do throughout the day for strengthening. Patient denies any further questions or concerns. POV TCM follow up 06/15/24 at 1500. Encouraged pt to consider Paramedicine or PT. Communication Events Date: June 11, 2024 Method: Phone call Type: Outbound Duration (min): 19 Outcome: Case discussion Contact Type: Patient Contact Name: MISA SANTOS Notes: TCM#2- wgt check- see tcm note. Created By: Willie Walker Date: June 11, 2024 Method: Phone call Type: Outbound Duration (min): 1 Outcome: Left message-voicemail Contact Type: Patient Contact Name: MIAS SANTOS Notes: TCM#2- wgt check- vm left for return call. Created By: Willie Walker Date: June 09, 2024 Method: Phone call Type: Outbound Duration (min): 10 Outcome: Case discussion Contact Type: Patient Contact Name: MISA SANTOS Notes: TCM#1- see tcm note. Created By: Willie Walker [facility] 06-09-20 24 [facility] Case Information Case Priority: None Programs: -- Referral Source: Auto Transmission Specialist Referral Reason: Care coordination Case Type: Transition Care Management Risk Score: -- Case Status: Enrolled (June 09, 2024) Date Assigned: June 09, 2024 Assigned By: Willie Walker Date Enrolled: June 09, 2024 Assigned Primary Personnel: Willie Walker Assigned Secondary Personnel: -- Case Physician: Willian Barrios MD Problems Ongoing Allergic rhinitis Anal fissure Anemia Breast [...] mg-400 intl units oral tablet, See Instructions diltiazem, 60 mg, Oral, BID Eliquis, 5 mg, Oral, BID ferrous sulfate 325 mg oral enteric coated tablet, 325 mg= 1 tab(s), Oral, Daily fluticasone Nasal 0.05 mg/inh [place], See Instructions glipiZIDE 5 mg Tab, See Instructions hydrochlorothiazide-losart an 25 mg-100 mg Tab, See [...] Father. Metastatic cancer: Mother. Screenings and Assessments 06/09/24 16:14:00 Result Name Value Comment Phone Call Monitoring Consent Agreed to continue call Phone Verification Patient Information Full name, street address and date of verified CM Program Enrollment Provides verbal consent for enrollment Goals and Interventions Care Plan Progress Note Admit Date: 06/06/24 [facility] Date of Discharge: 06/08/24 Follow-up appointment scheduled? yes, 06/15/24 at 1500 Did you understand your discharge instructions? yes Are you able to follow them? yes Did you receive new medications? yes, diltiazem 60 mg BID, Eliquis 5 mg BID Have you filled the Rx's? yes Are you taking them as prescribed? yes Are you having difficulty eating or swallowing your pills? no Are you having any stomach upset, diarrhea or constipation? no How are you sleeping? 'fine' Are you having any pain? no Do you have everything you need at home to care for yourself? yes Do you have Home Health? no Called patient for initial Transitional Care Management Program Call. Readmission risk not available. Reviewed d/c summary and dx of: new onset afib, acute exacerbation of CHF, BLE edema, hypokalemia, morbid obesity, VALERIE, CKD, hypothyroid, DM, HTN, HLD. Reviewed and updated medications with patient. Medication reconciliation will need to be completed at OV. Reviewed fluid restrictions of, less than 2 liters per day and low sodium diet. Patient reports she is 'hopefully better.' Reports edema is 'better than it was.' Notes edema 'comes and goes.' Reviewed measures to help with swelling. Patient states she is getting up every hour and walking around. Notes 'a little SOB, not much' on ambulation. Patient reports it is getting better every time she gets up and around. Patient denies any CP or palpitations. Reports she still does not have a scale, BP monitor, or pulse ox. CN educated patient on signs and symptoms to monitor for, she verbalized understanding. Patient notes she does not have much of an appetite. Encouraged to eat when hungry, with small frequent meals encouraged. Patient has cardio follow up on 06/15/24 at 1145, and PCP TCM f/u 06/15/24 at 1500. CN explained TCM program and gave CN contact number. Patient denies any further questions or concerns. Communication Events Date: June 09, 2024 Method: Phone call Type: Outbound Duration (min): 10 Outcome: Case discussion Contac (more content not included)... Normal [facility] 05-31-20 [facility] Case Information Case Priority: None Programs: -- Referral Source: Auto Transmission Specialist Referral Reason: Care coordination Case Type: Transition [...] tab(s), Oral, Daily fluticasone Nasal 0.05 mg/inh [place], See Instructions glipiZIDE 5 mg Tab, 5 [...] Care Plan Progress Note Admit Date: 05/27/24 [facility] Date of Discharge: 05/29/24 Follow-up appointment [...] with patient. Patient states she went to [facility] ER this am due to her [...] Case dis (more content not included)... Normal [facility] Family Medicine Office/Clini c Noteon 05-21-2024 Family [...] puff(s), Inhalation, q6hr, 18 gm, Refill(s) 0, [facility]/pharmacy #[id number], 152, cm, 05/21/24 11:19:00 EDT, Height/Length Dosing, 117.5, kg, 05/21/24 11:23:00 EDT, Weight Dosing Rapid COVID POC 29632 Follow-up No qualifying data available Patient Education [...] tab(s), Oral, Daily fluticasone Nasal 0.05 mg/inh [place], See Instructions glipiZIDE 5 mg Tab, 5 [...] No., 08/29/2023 (more content not included)... Normal [facility] Comment on above: Result Comment: Elec tronically [...] BY: Adrian Vilchis M.D. ca Dictated: 04/18/2024 [id number] Transcribed: 04/20/2024 cc:Willian Barrios M.D. Normal [facility] Comment on above: Result Comment: Elec tronically Signed By: Deng PATTEN, Adrian Dyer\.br\Date and Time Signed: 04/21/24 09:10 EDT Dexa Scanson 03-31-2024 Dexa Scans [id number]#1.00TIFF Normal [facility] Family Medicine Office/Clini c Noteon 03-29-2024 Family Medicine Office/Clinic Note Normal [facility] Comment on above: Result Comment: Elec tronically Signed By: Denis PATTEN, Willian Weiner\.br\Date and Time Signed: 03/29/24 12:57 EDT Patient Educationon 03-29-20 24 Patient Education Normal [facility] Ambulatory Visit Summaryon 0 03-15-2024 Ambulatory Visit Summary Normal [address] [place] [address]- \.br\ Medications\.br \ What How Much When [...] fluticasone nasal (fluticasone Nasal 0.05 mg/ inh [place]) See instructions USE 2 SPRAYS IN EACH [...] high in vitamin C include:\.br\ ? \.br\ [place] fruits, such as checo, oranges, and grapefruits.\.b [...] is right for you.\.br\ ? \.br\ Take bwll-kqx-qnhhzk r and prescription medicines only as told by your health care provider.\.br\ ? \.br\ Keep all follow-up visits.\.br\ Where to find more information\.br \ Learn more about preventing iron deficiency from:\.br\ ? \.br\ National Heart, Lung, and Blood [place]: www.nhlbi.nih.g ov\.br\ ? \.br\ [place] [employer]: www.hematology. org\.br\ Contact a health care provider if:\.br\ ? \.br\ You develop symptoms of iron deficiency, including:\.br\ ? \.br\ Fatigue.\.br\ ? \.br\ Headache.\.br\ ? \.br\ Pale skin, lips, and nail beds.\.br\ ? \.br\ Poor appetite.\.br\ ? \.br\ Weakness.\.br\ Summary\.br\ ? \.br\ Iron deficiency anemia is a condition in which the [facility] Consent for Treatmenton Consent for Treatment [id number]#1.00TIFF Normal [facility] ED Pat Eduon 03-15-2024 ED Pat Edu Normal [facility] ED Pat Edu Normal [facility] Oncology Progress Noteon Oncology Progress Note Normal [facility] CBC w/ Auto Diffon 4 Basophils/100 WBC (Bld) 1.0 % Normal 0.0-2.0 [facility] Comment on above: Performed By: #### 2 [id number] #### [facility] Laboratory [address] [place] [address] Basophils/Leukocyt es Auto (Bld) [Pure # fraction] 0.0 E9/L Normal 0.0-0.2 [facility] Comment on above: Performed By: #### 2 566389 #### [facility] Laboratory [address] [place] [address] Eosinophils (Bld) [#/Vol] 0.1 E9/L Normal 0.0-0.5 [facility] Comment on above: Performed By: #### 2 738556 #### [facility] [address] [place] [address] Eosinophils/100 WBC (Bld) 2.0 % Normal 0.0-8.0 [facility] Comment on above: Performed By: #### 2 858553 #### [facility] [address] [place] [address] Erythrocyte distribution width (RBC) [Ratio] 13.5 % Normal 10.9-14.2 [facility] Comment on above: Performed By: #### 2 588052 #### [facility] [address] [place] [address] Hematocrit (Bld) [Volume fraction] 36.6 % Normal 34.0-46.0 [facility] Comment on above: Performed By: #### 2 265182 #### [facility] [address] [place] [address] Hemoglobin (Bld) [Mass/Vol] 12.3 g/dL Normal 12.0-16.0 [facility] Comment on above: Performed By: #### 2 145068 #### [facility] [address] [place] [address] Lymphocytes (Bld) [#/Vol] 0.6 E9/L Low 1.0-4.0 [facility] Comment on above: Performed By: #### 2 703529 #### [facility] [address] [place] [address] Lymphocytes/100 WBC (Bld) 21.0 % Normal 14.0-50.0 [facility] Comment on above: Performed By: #### 2 111928 #### [facility] [address] [place] [address] MCH (RBC) [Entitic mass] 32.6 pg Normal 27.0-34.0 [facility] Comment on above: Performed By: #### 2 349855 #### [facility] [address] [place] [address] MCHC (RBC) [Mass/Vol] 33.6 g/dL Normal 31.4-36.0 [facility] Comment on above: Performed By: #### 2 989368 #### [facility] [address] [place] [address] MCV (RBC) [Entitic vol] 97.0 fL Normal 80.0-100.0 [facility] Comment on above: Performed By: #### 2 430851 #### [facility] [address] [place] [address] Monocytes (Bld) [#/Vol] 0.3 E9/L Normal 0.2-1.0 [facility] Comment on above: Performed By: #### 2 799229 #### [facility] [address] [place] [address] Neutrophils (Bld) [#/Vol] 2.1 E9/L Normal 2.0-7.5 [facility] Comment on above: Performed By: #### 2 929108 #### [facility] [address] [place] [address] Neutrophils/100 WBC (Bld) 67.2 % Normal 36.0-75.0 [facility] Comment on above: Performed By: #### 2 723670 #### [facility] [address] [place] [address] Platelet 90.0 E9/L Low 150.0-500.0 [facility] Comment on above: Result Comment: Resu lt Verified by Repeat Analysis Peripheral smear review performed. Performed By: #### 2 853516 #### [facility] [address] [place] [address] Platelet mean volume (Bld) [Entitic vol] 8.4 fL Normal 6.4-10.8 [facility] Comment on above: Performed By: #### 2 186301 #### [facility] [address] [place] [address] RBC (Bld) [#/Vol] 3.8 E12/L Low 4.3-5.9 [facility] Comment on above: Performed By: #### 2 106195 #### [facility] [address] [place] [address] WBC corrected for nucl RBC Auto (Bld) [#/Vol] 3.1 E9/L Low 4.0-11.0 [facility] Comment on above: Performed By: #### 2 294344 #### [facility] [address] [place] [address] CHEMISTRYOrdered By: SYSTEM SYSTEM on 03-09-2024 Albumin [...] 03-09-2024 Albumin [Mass/Vol] 3.4 g/dL Normal 3.3-5.0 [facility] Comment on above: Performed By: #### 2 429200 #### [facility] [address] [place] [address] Albumin/Globulin (S) [Mass conc ratio] 1.2 Normal 1.1-2.2 [facility] Comment on above: Performed By: #### 2 822898 #### [facility] [address] [place] [address] ALP [Catalytic activity/Vol] 68 Int._Unit/L Normal 21-98 [facility] Comment on above: Performed By: #### 2 620915 #### [facility] [address] [place] [address] ALT No additional P-5'-P [Catalytic activity/Vol] 21 Int._Unit/L Normal 6-46 [facility] Comment on above: Performed By: #### 2 694438 #### [facility] [address] [place] [address] Anion gap [Moles/Vol] 11 mmol/L Normal 6-16 [facility] Comment on above: Performed By: #### 2 144936 #### [facility] [address] [place] [address] AST [Catalytic activity/Vol] 31 Int._Unit/L Normal 5-43 [facility] Comment on above: Performed By: #### 2 528899 #### [facility] [address] [place] [address] Bilirubin [Mass/Vol] 1.0 mg/dL Normal 0.0-1.1 [facility] Comment on above: Performed By: #### 2 796676 #### [facility] [address] [place] [address] Calcium [Mass/Vol] 8.9 mg/dL Normal 8.9-11.1 [facility] Comment on above: Performed By: #### 2 601730 #### [facility] [address] [place] [address] Chloride [Moles/Vol] 103 mmol/L Normal 101-111 [facility] Comment on above: Performed By: #### 2 537356 #### [facility] [address] [place] [address] CO2 [Moles/Vol] 29 mmol/L Normal 21-31 [facility] Comment on above: Performed By: #### 2 077799 #### [facility] [address] [place] [address] Creatinine [Mass/Vol] 1.4 mg/dL High 0.5-1.3 [facility] Comment on above: Performed By: #### 2 137106 #### [facility] [address] [place] [address] Globulin (S) [Mass/Vol] 2.8 g/dL Normal 1.4-4.0 [facility] Comment on above: Performed By: #### 2 050994 #### [facility] [address] [place] [address] Glucose [Mass/Vol] 272 mg/dL High 55-199 [facility] Comment on above: Performed By: #### 2 997734 #### [facility] [address] [place] [address] Potassium [Moles/Vol] 3.9 mmol/L Normal 3.5-5.3 [facility] Comment on above: Performed By: #### 2 923436 #### [facility] [address] [place] [address] Protein [Mass/Vol] 6.2 g/dL Normal 6.0-7.8 [facility] Comment on above: Performed By: #### 2 320897 #### [facility] [address] [place] [address] Sodium [Moles/Vol] 139 mmol/L Normal 135-145 [facility] Comment on above: Performed By: #### 2 366561 #### [facility] [address] [place] [address] Urea nitrogen [Mass/Vol] 26 mg/dL High 5-21 [facility] Comment on above: Performed By: #### 2 228406 #### [facility] [address] [place] [address] Urea nitrogen/Creatinin e [Mass ratio] 19 No Units Normal 10-20 [facility] Comment on above: Performed By: #### 2 857241 #### [facility] [address] [place] [address] Consent for Treatmenton 02-11 Consent for Treatment [id number]#1.00TIFF Normal [facility] Ferritinon 03-09-2024 Ferritin [Mass/Vol] 36 ng/mL Normal 11-307 [facility] Comment on above: Performed By: #### 2 335461 #### [facility] [address] [place] [address] HEMATOLOGYOrdered By: SYSTEM SYSTEM on 03-09-2024 Basophils/100 [...] 03-09-2024 Iron [Mass/Vol] 87 microgram/dL Normal 35-153 [facility] Comment on above: Performed By: #### 2 710507 #### [facility] [address] [place] [address] Iron Saturationon 03-09-2024 Iron binding capacity [Mass/Vol] 357 microgram/dL Normal 250-400 [facility] Comment on above: Performed By: #### 2 199979 #### [facility] [address] [place] [address] Iron saturation [Mass fraction] 24 % Normal 20-50 [facility] Comment on above: Performed By: #### 2 621427 #### [facility] [address] [place] [address] Transferrinon 03-09-2024 Transferrin [Mass/Vol] 255 mg/dL Normal 200-370 [facility] Comment on above: Performed By: #### 2 863086 #### [facility] [address] [place] [address] eGFRon 03-09-2024 eGFR 40 mL/min/1.73 m2 Low >=59 [facility] Comment on above: Order Comment: Order added by Discern Expert. Performed By: #### 1 [id number] #### [facility] [address] [place] [address] Ambulatory Visit Summaryon 0 03-02-2024 Ambulatory Visit Summary Normal [address] [place] [address]- \.br\ Medications\.br \ What How Much When [...] fluticasone nasal (fluticasone Nasal 0.05 mg/ inh [place]) See instructions USE 2 SPRAYS IN EACH [...] ic Noteon 03-02-2024 Gastroenterology Office/Clinic Note Normal [facility] Comment on above: Result Comment: Elec tronically Signed By: Rachid PATTEN, Deborah Bell\.br\Date and Time Signed: 03/02/24 13:05 EDT Postoperative Documentson Postoperative Documents [id number]#1.00TIFF Normal [facility] Reminderson 02-16-2024 Reminders Normal [facility] IntraOperative Documentson 0 02-10-2024 IntraOperative Documents [id number]#1.00TIFF [facility] Consenton 02-09-2024 Consent [id number]#1.00TIFF [facility] Discharge Instructionson Discharge Instructions [id number]#1.00TIFF [facility] Main OR Intraoperative Recor don 02-09-2024 Main OR Intraoperative Record Normal [facility] Consent for Treatmenton 01-12 Consent for Treatment [id number]#1.00TIFF [facility] Discharge Instructionson Discharge Instructions Normal [address] [place] [address]- \.br\ New Follow Up Appointments after Discharge\.br \ Follow Up with Deborah Rashid When: Within 1 to 2 weeks\.br\ Comments:\.br\ Call for any problems.\.br\ Where:\.br\ [facility] [address]\.br\ [facility] [address]\.br\ [place] [address]-\.br\ [phone] Business (1)\.br\ Medications\.br \ What How Much [...] fluticasone nasal (fluticasone Nasal 0.05 mg/ inh [place]) See instructions USE 2 SPRAYS IN EACH [...] color.\.br\ ? \.br\ Pain in the abdomen.\.br\ [facility] Comment on above: Result Comment: Elec tronically Signed By: Modesta Walsh RN\.br\Date and Time Signed: 02/06/24 11:09 EDT Endoscopic Procedure Report - Otheron 02-06-2024 Endoscopic Procedure Report - Other Normal [facility] Comment on above: Result Comment: Elec tronically Signed By: Deborah Rashid MD\.br\Date and Time Signed: 02/06/24 11:04 EDT Other Comment: Radha landaverde Attachment - attachment storage system not supported [id number] Can be viewed in source systemMissing Attachment - attachment storage system not supported [id number] Can be viewed in source systemMissing Attachment - attachment storage system not supported [id number] Can be viewed in source systemMissing Attachment - attachment storage system not supported [id number] Can be viewed in source systemMissing Attachment - attachment storage system not supported [id number] Can be viewed in [facility] Attachment - attachment storage system not supported [id number] Can be viewed in source systemMissbr[facility] Attachment - attachment storage system not supported [id number] Can be viewed in [facility] Attachment - attachment storage system not supported [id number] Can be viewed in source systemMissbr[facility] Attachment - attachment storage system not supported [id number] Can be viewed in source [facility]Miss[facility] Attachment - attachment storage system not supported [id number] Can be viewed in source systemMiss[facility] Attachment - attachment storage system not supported [id number] Can be viewed in source [facility]Miss[facility] Attachment - attachment storage system not supported [id number] Can be viewed in source systemMiss[facility] Attachment - attachment storage system not supported 5619807 Can be viewed in source systemMissbr[facility] Attachment - attachment storage system not supported [id number] Can be viewed in source systemMiss[facility] Attachment - attachment storage system not supported [id number] Can be viewed in source systemMissbr[facility] Attachment - attachment storage system not supported 8658449 Can be viewed in source systemMissbr[facility] Attachment - attachment storage system not supported [id number] Can be viewed in source systemMicommunity hospital Attachment - attachment storage system not supported [id number] Can be viewed in source systemMissbrist[facility] Attachment - attachment storage system not supported [id number] Can be viewed in source systemMicommunity hospital Attachment - attachment storage system not supported [id number] Can be viewed in source system Inpatient Patient Summaryon 02-06-2024 Inpatient Patient Summary Normal [facility] Main OR PACU I Recordon 01-12 Main OR PACU I Record Normal [facility] Main OR Preoperative Recordo n 02-06-2024 Main OR Preoperative Record Normal [facility] Monitor Recordon 02-06-2024 Monitor Record [id number]#1.00TIFF Normal [facility] Monitor Record [id number]#1.00TIFF Normal [facility] Outpatient Surgery Discharge Instructionon 02-06-2024 Outpatient Surgery Discharge Instruction [facility] Patient Education - Texton 0 02-06-2024 Patient Education - Text Normal [facility] Progress Note-Physicianon Progress Note-Physician Normal [facility] Comment on above: Result Comment: Elec tronically Signed By: Jorge Luis Fang Jr., DO\.br\Date and Time Signed: 02/06/24 12:10 EDT Progress Note-Physician Hilda [facility] Comment on above: Result Comment: Elec tronically Signed By: Jorge Luis Fang Jr., DO\.br\Date and Time Signed: 02/06/24 09:27 EDT Ambulatory Visit Summaryon 0 01-02-2024 Ambulatory Visit Summary Normal [address] [id number]- \.br\ Medications\.br \ What How Much When [...] fluticasone nasal (fluticasone Nasal 0.05 mg/ inh [place]) See instructions USE 2 SPRAYS IN EACH [...] for choosing us for your care.\.br\ \.br\ [facility] Consenton 01-02-2024 Consent [id number]#1.00TIFF Normal [facility] Family Medicine Office/Clini c Noteon 01-02-2024 Family Medicine Office/Clinic Note Normal [facility] Comment on above: Result Comment: Elec tronically Signed By: Shalini Starkey\.br\Date and Time Signed: 01/02/24 12:23 EDT Reminderson 12-22-2023 Reminders Normal [facility] Copper Lvlon 03-07-2024 Copper [Mass/Vol] 103 microgram/dL Invalid Interpretation Code 80-158 [facility] Comment on above: Result Comment: This test was developed and its performance characteristicsdetermined by [facility]. It has not been cleared or approvedby the Food and Drug Administration.Detection Limit = 5Performed at: [address] [id number] MD Christiano Kolb Performed By: #### 2 831015, 2779263, 7137723, 99901313, 4731555, 6746654, 6030949, 2833778, 86556017, 0644569 ####[facility] [address] [place] [address] CBC w/ Auto Diffon 4 Basophils/100 WBC (Bld) 1.0 % Normal 0.0-2.0 [facility] Comment on above: Performed By: #### 2 099788, 4784047, 1516288, 73130850, 1411064, 3397255, 9590288, 5646773, 35769439, 0662587 ####[facility] [address] [place] [address] Basophils/Leukocyt es Auto (Bld) [Pure # fraction] 0.0 E9/L Normal 0.0-0.2 [facility] Comment on above: Performed By: #### 2 123589, 8879476, 8284099, 91615615, 1570673, 0533844, 0668417, 0438165, 34019598, 0340844 ####[facility] [address] [place] [address] Eosinophils (Bld) [#/Vol] 0.2 E9/L Normal 0.0-0.5 [facility] Comment on above: Performed By: #### 2 310005, 5418981, 6508433, 48957257, 2281735, 2605277, 6526619, 0796770, 28313475, 7307413 ####[facility] [address] [place] [address] Eosinophils/100 WBC (Bld) 4.1 % Normal 0.0-8.0 [facility] Comment on above: Performed By: #### 2 372057, 8647916, 4736310, 65136460, 4963909, 9259496, 4185927, 2657196, 96393661, 8778810 ####[facility] [address] [place] [address] Erythrocyte distribution width (RBC) [Ratio] 13.6 % Normal 10.9-14.2 [facility] Comment on above: Performed By: #### 2 402324, 2977705, 8991878, 52805709, 7892902, 3223559, 7381139, 2013943, 24512334, 5259573 ####[address] [place] [address] Hematocrit (Bld) [Volume fraction] 36.0 % Normal 34.0-46.0 [facility] Comment on above: Performed By: #### 2 913014, 4982607, 3238700, 15831787, 0465713, 8124248, 0956674, 4940658, 65424992, 1551441 ####[address] [place] [address] Hemoglobin (Bld) [Mass/Vol] 11.6 g/dL Low 12.0-16.0 [facility] Comment on above: Performed By: #### 2 172875, 5636313, 3598045, 66253944, 5006812, 0340862, 8145086, 5688800, 33047124, 0415773 ####[address] [place] [address] Lymphocytes (Bld) [#/Vol] 1.0 E9/L Normal 1.0-4.0 [facility] Comment on above: Performed By: #### 2 260803, 4344917, 5003861, 89057227, 3693869, 1797536, 7430872, 6030455, 04901353, 2521061 ####[address] [place] [address] Lymphocytes/100 WBC (Bld) 24.2 % Normal 14.0-50.0 [facility] Comment on above: Performed By: #### 2 949070, 6281390, 6204575, 55058454, 3020814, 2719888, 8311716, 8057364, 26194105, 7252170 ####[address] [address] MCH (RBC) [Entitic mass] 30.4 pg Normal 27.0-34.0 [facility] Comment on above: Performed By: #### 2 505863, 4259002, 4278726, 61902215, 6602792, 9565094, 7778933, 2180202, 88769080, 1930235 ####[address] [address] MCHC (RBC) [Mass/Vol] 32.3 g/dL Normal 31.4-36.0 [facility] Comment on above: Performed By: #### 2 342089, 5733747, 4206706, 22116455, 9497239, 0297516, 1818522, 6640149, 64446652, 7686957 ####[address] [address] MCV (RBC) [Entitic vol] 94.0 fL Normal 80.0-100.0 [facility] Comment on above: Performed By: #### 2 502295, 1930130, 4855737, 88941566, 8392779, 8007370, 6745652, 0796057, 41953136, 7744621 ####[address] [address] Monocytes (Bld) [#/Vol] 0.4 E9/L Normal 0.2-1.0 [facility] Comment on above: Performed By: #### 2 809334, 6144291, 4410197, 35066698, 9219225, 3708769, 8507988, 4862900, 10695934, 5853128 ####[facility] [address] [place] [address] Neutrophils (Bld) [#/Vol] 2.5 E9/L Normal 2.0-7.5 [facility] Comment on above: Performed By: #### 2 604853, 9693942, 7909145, 45263553, 1947905, 6866643, 2462477, 9077148, 95369830, 9302594 ####[facility] [address] [place] [address] Neutrophils/100 WBC (Bld) 60.7 % Normal 36.0-75.0 [facility] Comment on above: Performed By: #### 2 741648, 2380154, 1891004, 45116989, 8612137, 1417248, 0990541, 8080449, 15593538, 5027069 ####[address] [place] [address] Platelet 84.0 E9/L Low 150.0-500.0 [facility] Comment on above: Result Comment: Lidia newell with slide review Performed By: #### 2 351316, 9472730, 5520469, 17987588, 5711297, 2152053, 3510911, 9218445, 76309046, 8253286 ####[facility] [address] [place] [address] Platelet mean volume (Bld) [Entitic vol] 9.2 fL Normal 6.4-10.8 [facility] Comment on above: Performed By: #### 2 204793, 0485562, 9300426, 87337223, 4407745, 3045872, 4770968, 6361889, 47760377, 2728237 ####[address] [place] [address] RBC (Bld) [#/Vol] 3.8 E12/L Low 4.3-5.9 [facility] Comment on above: Performed By: #### 2 956727, 5400019, 7844002, 84854930, 7791833, 4883425, 3665655, 3471013, 82684356, 8468725 ####[facility] [address] [place] [address] WBC corrected for nucl RBC Auto (Bld) [#/Vol] 4.0 E9/L Normal 4.0-11.0 [facility] Comment on above: Performed By: #### 2 560816, 6384639, 4736907, 57082350, 8263461, 0210156, 2591554, 5467909, 36620629, 4090392 ####[facility] [address] [place] [address] CHEMISTRYOrdered By: SYSTEM SYSTEM on 12-15-2023 Albumin [...] 12-15-2023 Albumin [Mass/Vol] 3.5 g/dL Normal 3.3-5.0 [facility] Comment on above: Performed By: #### 2 962496, 8926568, 9832975, 66094712, 4602201, 6773207, 1548554, 8894926, 02515233, 3802505 ####[facility] [address] [place] [address] Albumin/Globulin (S) [Mass conc ratio] 1.3 Normal 1.1-2.2 [facility] Comment on above: Performed By: #### 2 521254, 9621988, 4567157, 28663005, 4804187, 5133751, 7945125, 0001634, 47333997, 1589216 ####[facility] [address] [place] [address] ALP [Catalytic activity/Vol] 81 Int._Unit/L Normal 21-98 [facility] Comment on above: Performed By: #### 2 491786, 1331219, 1008210, 47497446, 6214714, 8367382, 7396497, 6229704, 57224582, 9360073 ####[facility] [address] [place] [address] ALT No additional P-5'-P [Catalytic activity/Vol] 21 Int._Unit/L Normal 6-46 [facility] Comment on above: Performed By: #### 2 599499, 3999670, 9629332, 63582590, 0762509, 9572606, 6783447, 7353913, 64054484, 7926651 ####[address] [address] Anion gap [Moles/Vol] 12 mmol/L Normal 6-16 [facility] Comment on above: Performed By: #### 2 260555, 5974878, 1968127, 53583239, 8548010, 0307033, 5028971, 7427460, 90899486, 7430570 ####[address] [address] AST [Catalytic activity/Vol] 36 Int._Unit/L Normal 5-43 [facility] Comment on above: Performed By: #### 2 860388, 5619264, 6538324, 32442041, 1856415, 9702657, 0546953, 5659470, 32053746, 8287185 ####[facility] [address] [place] [address] Bilirubin [Mass/Vol] 1.4 mg/dL High 0.0-1.1 [facility] Comment on above: Performed By: #### 2 864549, 4086323, 4634133, 87355311, 7542446, 1114312, 6254599, 0139101, 62658803, 9857230 ####[address] [place] [address] Calcium [Mass/Vol] 8.9 mg/dL Normal 8.9-11.1 [facility] Comment on above: Performed By: #### 2 936293, 2224877, 7426308, 14572763, 8862017, 8839111, 9059746, 5960966, 18634665, 9361348 ####[facility] [address] [place] [address] Chloride [Moles/Vol] 103 mmol/L Normal 101-111 [facility] Comment on above: Performed By: #### 2 865609, 9253965, 2820850, 46478140, 6871927, 4306278, 7436355, 3578013, 38205313, 1081907 ####[address] [address] CO2 [Moles/Vol] 25 mmol/L Normal 21-31 [facility] Comment on above: Performed By: #### 2 563714, 4149509, 3912491, 57946594, 6877979, 1307644, 9268280, 0942996, 84743369, 4117040 ####[address] Creatinine [Mass/Vol] 2.1 mg/dL High 0.5-1.3 [facility] Comment on above: Performed By: #### 2 639821, 0270099, 0685177, 32311411, 2486105, 6245062, 7843685, 7129226, 39852921, 1913609 ####[facility] [address] [place] [address] Globulin (S) [Mass/Vol] 2.7 g/dL Normal 1.4-4.0 [facility] Comment on above: Performed By: #### 2 446482, 0757421, 0537254, 62149153, 1033416, 7444056, 2244592, 0006304, 92956174, 8434917 ####[address] [place] [address] Glucose [Mass/Vol] 167 mg/dL Normal 55-199 [facility] Comment on above: Performed By: #### 2 034645, 4420130, 2939733, 68599587, 7521027, 7021057, 1453289, 8175113, 08695195, 7575671 ####[facility] [address] [place] [address] Potassium [Moles/Vol] 3.5 mmol/L Normal 3.5-5.3 [facility] Comment on above: Performed By: #### 2 982923, 6705206, 9283721, 30089169, 2728388, 6980241, 1769493, 0852462, 34295656, 4860963 ####[facility] [address] [place] [address] Protein [Mass/Vol] 6.2 g/dL Normal 6.0-7.8 [facility] Comment on above: Performed By: #### 2 618939, 9561830, 7086009, 62348477, 9333247, 1929726, 6932282, 6685403, 04692309, 9054526 ####[facility] [address] [place] [address] Sodium [Moles/Vol] 136 mmol/L Normal 135-145 [facility] Comment on above: Performed By: #### 2 814227, 3281509, 3068513, 24842493, 7007800, 6158286, 9097332, 6251292, 87896868, 2445163 ####[facility] [address] [place] [address] Urea nitrogen [Mass/Vol] 20 mg/dL Normal 5-21 [facility] Comment on above: Performed By: #### 2 185469, 7695703, 9201376, 00049379, 9197809, 6559829, 0663375, 3705527, 88836012, 4834556 ####[facility] [address] [place] [address] Urea nitrogen/Creatinin e [Mass ratio] 10 No Units Normal 10-20 [facility] Comment on above: Performed By: #### 2 662897, 7117807, 8091450, 20467953, 5240159, 1964631, 6204198, 2076731, 92183062, 0818898 ####[facility] [address] [place] [address] Consent for Treatmenton Consent for Treatment [id number]#1.00TIFF Normal [facility] Consent for Treatment [id number]#1.00TIFF Normal [facility] Ferritinon 12-15-2023 Ferritin [Mass/Vol] 19 ng/mL Normal 11-307 [facility] Comment on above: Performed By: #### 2 866667, 4930498, 0932403, 83179530, 1619178, 2211487, 7982182, 6476993, 62023113, 3380929 ####[facility] [address] [place] [address] Folateon 12-15-2023 Folate [Mass/Vol] 14.8 ng/mL Normal >=6.7 [facility] Comment on above: Performed By: #### 2 995314, 2972989, 7050225, 49652691, 2928575, 8012951, 8239331, 1709275, 14377031, 4959523 ####[facility] [address] [place] [address] HEMATOLOGYOrdered By: SYSTEM SYSTEM on 12-15-2023 Basophils/100 [...] 12-15-2023 Iron [Mass/Vol] 144 microgram/dL Normal 35-153 [facility] Comment on above: Performed By: #### 2 697674, 8011678, 3001996, 38399071, 2443308, 2898914, 0697767, 8083918, 55026509, 4522724 ####[facility] [address] [place] [address] Iron Saturationon 12-15-2023 Iron binding capacity [Mass/Vol] 427 microgram/dL High 250-400 [facility] Comment on above: Performed By: #### 2 399401, 6090085, 3151121, 44592662, 8723781, 1561242, 6180977, 1487068, 52522728, 1008499 ####[facility] [address] [place] [address] Iron saturation [Mass fraction] 34 % Normal 20-50 [facility] Comment on above: Performed By: #### 2 285472, 7185698, 3001758, 52841792, 9339971, 5220234, 7268891, 3845602, 33467876, 5919833 ####[facility] [address] [place] [address] Oncology Progress Noteon Oncology Progress Note Normal [facility] Transferrinon 12-15-2023 Transferrin [Mass/Vol] 305 mg/dL Normal 200-370 [facility] Comment on above: Performed By: #### 2 529372, 3032416, 8692498, 00859769, 6140187, 7309205, 6109189, 1597751, 74271275, 9644609 ####[facility] [address] [place] [address] Vit B12on 12-15-2023 Cobalamin (Vitamin B12) [Mass/Vol] 480 pg/mL Normal 50-1500 [facility] Comment on above: Performed By: #### 2 969049, 9525789, 9238723, 40859996, 9456307, 9792951, 4619429, 3045790, 19958454, 0748515 ####[facility] [address] [place] [address] eGFRon 12-15-2023 eGFR 25 mL/min/1.73 m2 Low >=59 [facility] Comment on above: Order Comment: Order added by Discern Expert. Performed By: #### 2 122946, 3500399, 6817311, 50260170, 5296024, 5763291, 3142238, 9973801, 19112180, 5106110 ####[facility] [address] [place] [address] Consultation Noteon 12-04-19 Consultation Note [id number]#1.00TIFF Normal [facility] Dexa Scanson 11-24-2023 Dexa Scans [id number]#1.00TIFF Normal [facility] Outside Mammographyon 2023 Outside Mammography [id number]#1.00TIFF Normal [facility] Consent for Procedure/Surger yon 10-03-2023 Consent for Procedure/Surgery [id number]#1.00TIFF Normal [facility] Ambulatory Visit Summaryon 1 12-02-2022 Ambulatory Visit Summary Normal [address] [place] [address]- \.br\ You Need to Schedule the Following [...] See instructions Prior to colonsocopy. Pickup at [facility]/pharmacy #[id number]\.br\ Unchanged albuterol (Albuterol (Eqv-ProAir HFA) 90 mcg/ [...] Unchanged fluticasone nasal (Flonase 0.05 mg/ inh Deford) 2 Sprays Nasal Inhalation Every day each [...] questions or concerns \.br\ Pharmacy Information\.br \ [facility]/pharmacy #[id number]: [address], [place] [phone]\.br\ Allergies\.br\ metFORMIN (Nausea, Dizziness, Unknown)\.br\ sulfa drugs [...] chewing tobacco. If you need help quitti [facility] Gastroenterology Office/Clin ic Noteon 10-01-2023 Gastroenterology Office/Clinic Note Normal [facility] Comment on above: Result Comment: Elec tronically Signed By: Ashlie Mead CNP\.br\Date and Time Signed: 10/01/23 12:54 EST Patient Educationon 10-01-20 Patient Education Normal [facility] Ambulatory Visit Summaryon 1 11-30-2022 Ambulatory Visit Summary Invalid Interpretation Code [address] [place] [address]- \.br\ Someone Will Contact You Regarding These Appointments\.b r\ [facility] External Ambulatory Referral, Podiatry, 09/29/23 11:47:00 EST, Hypertension [facility] Ambulatory Visit Summary Normal [address] [place] [address]- \.br\ Medications\.br \ What How Much When [...] Unchanged fluticasone nasal (Flonase 0.05 mg/ inh Deford) 2 Sprays Nasal Inhalation Every day each [...] By Mouth 2 times a day\.br\ Unchanged Mis Prescription (Lancets) See instructions Diabetes To be used once a day to obtain blood sugars Dx: E11.9 \.br\ Unchanged Misc Prescription ([facility] Prescription) See instructions Diabetes one touch [...] for choosing us for your care.\.br\ \.br\ [facility] Family Medicine Office/Clini c Noteon 09-29-2023 [facility] Medicine Office/Clinic Note Normal [facility] Comment on above: Result Comment: Elec tronically Signed By: Willian Barrios MD\.br\Date and Time Signed: 09/29/23 11:54 EST Patient Educationon 09-29-20 Patient Education Normal [facility] Physician Referralon 023 Physician Referral [id number]#1.00TIFF Normal [facility] RAD - MISCon 09-25-2023 RAD - MISC [id number]#1.00TIFF Normal [facility] Ambulatory Visit Summaryon 11-25-2022 Ambulatory Visit Summary Invalid Interpretation Code [address] [address]- \.br\ Friday 11:00 AM EST \.br\ With:\.br\ Where: [facility] Family Medicine Office/Clini c Noteon 09-24-2023 [facility] Medicine Office/Clinic Note Normal [facility] Comment on above: Result Comment: Elec tronically Signed By: Willian Barrios MD\.br\Date and Time Signed: 09/24/23 14:57 EST Patient Educationon 09-24-20 23 Patient Education Normal [facility] Ambulatory Visit Summaryon 11-18-2022 Ambulatory Visit Summary Invalid Interpretation Code [address] [address]- \.br\ Friday 11:00 AM EST \.br\ With:\.br\ Where: [facility] Office/Clini c Noteon 09-17-2023 [facility] Office/Clinic Note Normal [facility] Comment on above: Result Comment: Elec tronically Signed By: Denis PATTEN, Willian Daleybr\Date and Time Signed: 09/17/23 17:34 EST Patient Educationon 09-17-20 23 Patient Education Normal [facility] .Interpretation:on 3 HCV Ab IA Ql Comment Invalid Interpretation Code [facility] Comment on above: Result Comment: Not infected with HCV unless early or acute infection issuspected (which may be delayed in an immunocompromisedindividual), or other evidence exists to indicate HCV infection.Performed at: [email or web address] [place], [place] [id number] PhD David Alexandra Performed By: #### 2 612028, 1634555, 5130466, 3186070, 7333267, 1614545, 5983383, 75629775, 3678183, 2417011, 0398124334, 4455245, 8402418388, 209935993, 9409728, 9566826, 4718232006, 3033310 ####[facility] [address] [place] [address] HCV Antibody RFX to Quant PC Lanre 09-16-2023 HCV IgG IA Ql Non-Reactive Invalid Interpretation Code Non Reactive [facility] Comment on above: Result Comment: Perf ormed at: [address] [place], [place] [id number] PhD David Alexandra Performed By: #### 2 186078, 3776166, 5160546, 7831428, 4033233, 6551915, 8049283, 79907767, 2617473, 4796166, 8387713166, 4892121, 2680171638, 382393725, 9840266, 7191635, 0616188505, 6170142 ####[facility] [address] [place] [address] HIV Screen 4th Generation wR fxon 09-16-2023 HIV 1+2 Ab+HIV1 p24 Ag IA Ql Non-Reactive Invalid Interpretation Code Non Reactive [facility] Comment on above: Result Comment: HIV NegativeHIV-1/HIV-2 antibodies and HIV-1 p24 antigen were NOT detected.There is no laboratory evidence of HIV infection.Performed at: [address] [id number] PhD David Alexandra Performed By: #### 2 473373, 7557259, 9149475, 1734599, 7138822, 3428233, 1306348, 23939525, 7485950, 2287010, 2447270914, 2773686, 5803927380, 730567816, 2643657, 0269874, 2367320266, 4040387 ####[facility] [address] [place] [address] Hep A IgMon 09-16-2023 HAV IgM IA Ql Negative Invalid Interpretation Code Negative [facility] Comment on above: Result Comment: Perf ormed at: [address] [id number] PhD David Alexandra Performed By: #### 2 630376, 6446345, 4540679, 6170893, 5387797, 7109908, 9504133, 57006980, 4137433, 2639892, 4207231762, 6231102, 0193245767, 973738811, 1177707, 2691089, 6465238345, 0747647 ####[address] [place] [address] Hep B Core Ab, IgMon 023 HBV core IgM IA Ql Negative Invalid Interpretation Code Negative [facility] Comment on above: Result Comment: Perf ormed at: [address] [id number] PhD David Alexandra Performed By: #### 2 616809, 8903953, 0943759, 7787801, 6671399, 9852201, 5684405, 32456196, 9440711, 0573882, 7627004969, 0561790, 9084139529, 401920520, 1536515, 2792919, 7192586165, 8031244 ####[address] [place] [address] Hep Bs Abon 09-16-2023 HBV surface Ab Ql (S) Non-Reactive Invalid Interpretation Code [facility] Comment on above: Result Comment: Non Reactive: Inconsistent with immunity,less than 10 mIU/mLReactive: Consistent with immunity,greater than 9.9 mIU/mLPerformed at: [facility] [place], [place] [id number] PhD David Alexandra Performed By: #### 2 821624, 4140040, 5812956, 4308255, 2625923, 4679652, 0218964, 30870436, 7123434, 0976809, 1011504363, 8914127, 9767404591, 610549919, 5953939, 2987986, 7322791661, 1964209 ####[address] [place] [address] Hep Bs Agon 09-16-2023 HBV surface Ag IA Ql Negative Invalid Interpretation Code Negative [facility] Comment on above: Result Comment: Perf ormed at: [address] [id number] PhD David Alexandra Performed By: #### 2 550955, 5859594, 5739190, 2102803, 8369523, 7345074, 8743437, 48300645, 2113463, 5034326, 2035556846, 5506205, 1453993060, 363229998, 6208475, 0533749, 6895123265, 5300577 ####[address] [place] [address] Auto Diffon 09-15-2023 Basophils/100 WBC (Bld) 1.3 % Normal 0.0-2.0 [facility] Comment on above: Order Comment: Order Added by Discern Expert. Performed By: #### 2 975671, 7412299, 4865435, 9653381, 5546989, 1251926, 0073077, 33977050, 4740258, 0473119, 1320067974, 2980390, 2125845640, 544934153, 4611168, 0903650, 4512401808, 7031987 ####[address] [place] [address] Basophils/Leukocyt es Auto (Bld) [Pure # fraction] 0.0 E9/L Normal 0.0-0.2 [facility] Comment on above: Order Comment: Order Added by Discern Expert. Performed By: #### 2 824650, 5898807, 7130750, 8124158, 9354249, 3583038, 7526294, 25074724, 6826407, 5304122, 6393009166, 5628620, 8711291794, 812145543, 5953862, 1192415, 7791799639, 2066539 ####[address] [address] Eosinophils/100 WBC (Bld) 3.4 % Normal 0.0-8.0 [facility] Comment on above: Order Comment: Order Added by Discern Expert. Performed By: #### 2 625678, 4491014, 4025877, 3202272, 2632198, 5254114, 9324931, 03396228, 8693413, 5288321, 2741597402, 1769500, 9155811653, 855924451, 6344908, 2560324, 5687957340, 2710100 ####[address] [place] [address] Eosinophils/Leukoc ytes Auto (Bld) [Pure # fraction] 0.1 E9/L Normal 0.0-0.5 [facility] Comment on above: Order Comment: Order Added by Discern Expert. Performed By: #### 2 358123, 6471062, 4382850, 9678251, 8538746, 3481278, 5752617, 91495905, 3217433, 8139969, 5290845185, 2814871, 2751912602, 850795035, 6405849, 1566063, 2344127236, 0993036 ####[facility] [address] [place] [address] Lymphocytes/100 WBC (Bld) 25.0 % Normal 14.0-50.0 [facility] Comment on above: Order Comment: Order Added by Discern Expert. Performed By: #### 2 471118, 4997588, 7081692, 3524672, 7566828, 3724928, 9082210, 49828217, 7762569, 5846583, 6053446812, 6071098, 4777033908, 245704437, 2095496, 4432128, 3676402435, 6504964 ####[address] [place] [address] Lymphocytes/Leukoc ytes Auto (Bld) [Pure # fraction] 0.7 E9/L Low 1.0-4.0 [facility] Comment on above: Order Comment: Order Added by Discern Expert. Performed By: #### 2 048654, 8401010, 2984185, 0080241, 4263804, 7477621, 0506013, 76934406, 5175621, 8729722, 7734138059, 8072727, 4587528428, 689711147, 6806235, 5631335, 5845705753, 9671944 ####[address] [address] Monocytes/100 WBC (Bld) 10.1 % Normal 4.0-14.0 [facility] Comment on above: Order Comment: Order Added by Discern Expert. Performed By: #### 2 481773, 4307198, 7599992, 5830947, 4308514, 3261839, 0203904, 26552449, 7399621, 6861499, 5586934360, 4232816, 1707421683, 292725806, 9321653, 4395740, 7152291693, 3922791 ####[facility] [address] [place] [address] Monocytes/Leukocyt es Auto (Bld) [Pure # fraction] 0.3 E9/L Normal 0.2-1.0 [facility] Comment on above: Order Comment: Order Added by Discern Expert. Performed By: #### 2 800955, 2737777, 5736010, 9350918, 6886291, 6638995, 8626510, 83221271, 0767038, 5631246, 9271518237, 6896586, 4526849088, 816204434, 1726349, 9631805, 3505854215, 9663199 ####[facility] [address] [place] [address] Neutrophils/100 WBC (Bld) 60.2 % Normal 36.0-75.0 [facility] Comment on above: Order Comment: Order Added by Discern Expert. Performed By: #### 2 368076, 3179488, 4091786, 0796316, 3953537, 0181225, 2957318, 57777197, 2354232, 1479837, 3508810479, 7643495, 2289420606, 022795575, 9619555, 0350478, 7390734905, 7591308 ####[facility] [address] [place] [address] Neutrophils/Leukoc ytes Auto (Bld) [Pure # fraction] 1.6 E9/L Low 2.0-7.5 [facility] [facility] Comment on above: Order Comment: Order Added by Discern Expert. Performed By: #### 2 595815, 1319540, 4653745, 4276880, 1058976, 1584834, 1300173, 84861668, 4454213, 8597926, 1836990006, 7873701, 6853997849, 162132000, 1520521, 5928798, 2109823044, 4924857 ####[facility] [address] [place] [address] CBC w/ Auto Diffon 3 Erythrocyte distribution width (RBC) [Ratio] 13.2 % Normal 10.9-14.2 [facility] Comment on above: Performed By: #### 2 336664, 7509918, 3438857, 9461158, 9506045, 3748029, 2892814, 58444001, 8557576, 9259854, 1974762438, 4127737, 0116431049, 097189578, 9826669, 8704353, 7803066442, 5562773 ####[facility] [address] [place] [address] Hematocrit (Bld) [Volume fraction] 36.5 % Normal 34.0-46.0 [facility] Comment on above: Performed By: #### 2 189469, 8245369, 0212531, 3563642, 1126546, 3793747, 1398824, 20669532, 6636397, 2550985, 1734607743, 7770676, 7523353323, 240460448, 0559308, 4872850, 9848665175, 7581224 ####[address] [address] Hemoglobin (Bld) [Mass/Vol] 12.3 g/dL Normal 12.0-16.0 [facility] Comment on above: Performed By: #### 2 393569, 9109123, 2801234, 2929448, 9705206, 2593785, 6876464, 67365766, 4759976, 4947330, 4554320336, 8563141, 4628538218, 591693514, 4822739, 6130109, 1604331249, 3451910 ####[address] [address] MCH (RBC) [Entitic mass] 31.3 pg Normal 27.0-34.0 [facility] Comment on above: Performed By: #### 2 478442, 9665429, 0525054, 2135665, 9038494, 1235587, 7708759, 34529155, 2747441, 4020778, 9651315970, 2626921, 2996082897, 346164302, 6942029, 2657871, 6487040558, 4781870 ####[facility] [address] [place] [address] MCHC (RBC) [Mass/Vol] 33.7 g/dL Normal 31.4-36.0 [facility] Comment on above: Performed By: #### 2 951585, 2067573, 0029058, 8459676, 6055411, 5733909, 2459999, 05520591, 1846629, 2880246, 4907909099, 8526266, 3688901003, 612803657, 5332969, 5719828, 2234371465, 5671444 ####[facility] [address] [place] [address] MCV (RBC) [Entitic vol] 92.8 fL Normal 80.0-100.0 [facility] Comment on above: Performed By: #### 2 421969, 2809808, 7634122, 8835519, 9899064, 6366785, 9936022, 97193980, 7132957, 8953404, 5661919359, 0420782, 8910624774, 598058355, 0707286, 3910565, 3967662389, 4043693 ####[address] [place] [address] Platelet mean volume (Bld) [Entitic vol] 8.5 fL Normal 6.4-10.8 [facility] Comment on above: Performed By: #### 2 658388, 5165406, 8204430, 9414293, 3742722, 2237264, 4647685, 16002581, 9815466, 3275560, 0074813980, 5952987, 2280037670, 971450838, 2887999, 4567844, 3543456644, 4542347 ####[facility] [address] [place] [address] Platelets (Bld) [#/Vol] 89.0 E9/L Low 150.0-500.0 [facility] Comment on above: Result Comment: Plat elet count verified using smear estimate Performed By: #### 2 314629, 7074489, 2658350, 2277081, 3151792, 3435315, 7819915, 07660144, 1936913, 6162937, 3580583256, 7873602, 0064947017, 578136172, 8442562, 4773657, 3276192188, 2642408 ####[facility] [address] [place] [address] RBC (Bld) [#/Vol] 3.9 E12/L Low 4.3-5.9 [facility] Comment on above: Performed By: #### 2 511231, 6334731, 3737309, 8860889, 6053421, 2448048, 6995515, 85593572, 9936820, 7362057, 6374458400, 9233294, 8331627959, 748787737, 7270478, 2828895, 6312615267, 9790613 ####[facility] [address] [place] [address]32457 WBC corrected for nucl RBC Auto (Bld) [#/Vol] 2.6 E9/L Low 4.0-11.0 [facility] Comment on above: Performed By: #### 2 668496, 7593272, 9850654, 1922885, 8038308, 9623316, 2782976, 74320842, 5147744, 1735674, 5135745076, 0157237, 6942290641, 026233820, 1640879, 2595362, 1889133348, 1303740 ####[facility] [address] [place] [address] CHEMISTRYOrdered By: SYSTEM SYSTEM on 09-15-2023 Albumin [...] 09-15-2023 Albumin [Mass/Vol] 3.5 g/dL Normal 3.3-5.0 [facility] Comment on above: Performed By: #### 2 839135, 0177855, 2459543, 5085029, 8313917, 7952779, 7774744, 08567626, 0114397, 2498910, 4973105594, 3927318, 9894977946, 339884674, 9486102, 9900987, 9516563526, 1299930 ####[facility] [address] [place] [facility] [place] [address] Albumin/Globulin (S) [Mass conc ratio] 1.0 Low 1.1-2.2 [facility] Comment on above: Performed By: #### 2 602116, 6188332, 2570487, 4490216, 7524481, 4248601, 2923066, 44645816, 5978580, 9643496, 1108254720, 3701321, 7123082804, 790268897, 1845922, 4801340, 3149559840, 1647513 ####[address] [place] [address] ALP [Catalytic activity/Vol] 81 Int._Unit/L Normal 21-98 [facility] Comment on above: Performed By: #### 2 974754, 7380574, 3089221, 9954161, 1336287, 6856005, 1996862, 35617443, 6593573, 0388957, 4798335018, 3437883, 2706055878, 566443574, 6014199, 8409553, 1898218870, 6457122 ####[address] [place] [address] ALT No additional P-5'-P [Catalytic activity/Vol] 23 Int._Unit/L Normal 6-46 [facility] Comment on above: Performed By: #### 2 836206, 1755187, 6649332, 9169469, 9371898, 6295308, 3609488, 20545326, 0905090, 2921957, 5116799464, 2977147, 4882063323, 029284765, 5832530, 5569321, 0322210999, 1128579 ####[address] [address] Anion gap [Moles/Vol] 11 mmol/L Normal 6-16 [facility] Comment on above: Performed By: #### 2 551338, 7330754, 9639095, 4002799, 9054906, 6688306, 9504381, 14340916, 7497654, 2700564, 2422287577, 7416329, 3327035081, 006338793, 5474144, 6851055, 9080734887, 8007016 ####[address] [address] AST [Catalytic activity/Vol] 42 Int._Unit/L Normal 5-43 [facility] Comment on above: Performed By: #### 2 177090, 4319915, 3238445, 6882492, 1359137, 9940750, 3200061, 90418108, 7864525, 9604577, 3627443758, 7376620, 9988749813, 871126645, 6852204, 6677994, 3172257251, 5426602 ####[facility] [address] [place] [address] Bilirubin [Mass/Vol] 1.0 mg/dL Normal 0.0-1.1 [facility] Comment on above: Performed By: #### 2 635237, 2972814, 7309099, 0523528, 8788330, 0586314, 1126728, 15971906, 4163302, 6546947, 0115425810, 8539002, 9554277768, 727431795, 6330668, 8826270, 4607031493, 2916995 ####[address] [place] [address] Calcium [Mass/Vol] 9.0 mg/dL Normal 8.9-11.1 [facility] Comment on above: Performed By: #### 2 141389, 2984793, 4526249, 7264332, 3498608, 5425123, 6906807, 37603582, 1568356, 6218920, 6729422757, 5175458, 0263304098, 841017617, 7786244, 6192735, 4343394476, 9811062 ####[facility] [address] [place] [address] Chloride [Moles/Vol] 103 mmol/L Normal 101-111 [facility] Comment on above: Performed By: #### 2 167204, 9297851, 1673800, 7085781, 3207248, 1257338, 8388053, 21590472, 7975989, 7062487, 9394413647, 4809313, 9110040701, 618248848, 4145294, 3468693, 7823486202, 0664732 ####[facility] [address] [place] [address] CO2 [Moles/Vol] 24 mmol/L Normal 21-31 [facility] Comment on above: Performed By: #### 2 819866, 6540874, 9064331, 3859094, 3381059, 9311496, 0637705, 01844622, 9793916, 5988418, 8204156681, 1334116, 0789937505, 761658869, 8001492, 2709308, 9129679150, 9760076 ####[facility] [address] [place] [address] Creatinine [Mass/Vol] 1.1 mg/dL Normal 0.5-1.3 [facility] Comment on above: Performed By: #### 2 961673, 6407989, 2215352, 4441464, 2082633, 7624523, 0764056, 11256919, 6604730, 4647497, 3373318607, 1791190, 3636713051, 459750983, 3498628, 2782330, 9031937397, 7478945 ####[facility] [address] [place] [address] Globulin (S) [Mass/Vol] 3.4 g/dL Normal 1.4-4.0 [facility] Comment on above: Performed By: #### 2 442945, 2768626, 7632998, 7317635, 0167887, 0304445, 1744608, 90948158, 1620914, 0994548, 0276647895, 8537990, 3622557571, 406670105, 0109855, 9630435, 8566527046, 9082820 ####[facility] [address] [place] [address] Glucose [Mass/Vol] 307 mg/dL High 55-199 [facility] Comment on above: Result Comment: If t his glucose result represents a fasting glucose, interpretation should refer to the following reference range: 55-99 mg/dL Performed By: #### 2 386702, 8922807, 0235848, 7754151, 3002834, 3655426, 6157760, 52482852, 0412936, 4187315, 0997578551, 0283758, 2740505842, 836328194, 0833612, 5238536, 8624880472, 2274456 ####[facility] [address] [place] [address] Potassium [Moles/Vol] 3.9 mmol/L Normal 3.5-5.3 [facility] Comment on above: Performed By: #### 2 062566, 6957906, 2136873, 0176826, 6769591, 2312131, 9291584, 53094194, 2226366, 6235705, 0314179871, 5763072, 4571054391, 047099142, 4250936, 6219152, 3466151227, 9813770 ####[address] [place] [address] Protein [Mass/Vol] 6.9 g/dL Normal 6.0-7.8 [facility] Comment on above: Performed By: #### 2 119313, 7961640, 9693377, 8205449, 1964020, 1842748, 5745203, 62530183, 6672873, 8740848, 0257953498, 7512624, 3203446687, 739177403, 5469680, 0683754, 3538598334, 8555979 ####[address] [place] [address] Sodium [Moles/Vol] 134 mmol/L Low 135-145 [facility] Comment on above: Performed By: #### 2 462194, 7963444, 7357949, 8437393, 4848067, 4050672, 2049542, 81443052, 1522323, 1968949, 5408370156, 9288719, 4688241345, 867739026, 7433364, 7234658, 2726054534, 1828532 ####[address] [place] [address] Urea nitrogen [Mass/Vol] 12 mg/dL Normal 5-21 [facility] Comment on above: Performed By: #### 2 594987, 0335899, 7310401, 1291768, 3659328, 0790324, 8570347, 32549336, 6479566, 7911769, 1817561187, 5307354, 8196947331, 183121044, 5946023, 0481040, 5790113940, 1444743 ####[facility] [address] [place] [address] Urea nitrogen/Creatinin e [Mass ratio] 11 No Units Normal 10-20 [facility] Comment on above: Performed By: #### 2 174535, 1865038, 7828889, 3681302, 2972521, 9172109, 6730381, 20332937, 9033314, 9029857, 6274205925, 0720804, 4595425385, 296142907, 9211119, 7598120, 4830017750, 9836109 ####[facility] [address] [place] [address] Consent for Treatmenton Consent for Treatment [id number]#1.00TIFF Normal [facility] Ferritinon 09-15-2023 Ferritin [Mass/Vol] 20 ng/mL Normal 11-307 [facility] Comment on above: Result Comment: NORM ALS MEN <30 YRS 16-132 ng/mL MEN >30 YRS 8-338 ng/mL WOMEN (PREMEN) 6-104 ng/mL WOMEN (POSTMEN) 12-210 ng/mL Performed By: #### 2 251225, 2117841, 3715320, 7579200, 1367531, 8432302, 7587381, 44875704, 5508775, 6018078, 8802228847, 6621442, 9897670847, 309464871, 5952782, 4595344, 3601933318, 1657610 ####[facility] [address] [place] [address] Folateon 12-04-2023 Folate [Mass/Vol] 14.7 ng/mL Normal >=6.7 [facility] Comment on above: Performed By: #### 2 511998, 5875282, 8622751, 9773399, 5479592, 8534376, 2892131, 68839199, 6875693, 6078567, 1336211212, 9654036, 6341895824, 549689221, 5503208, 3590714, 2177810170, 1285445 ####[facility] [address] [place] [address] HEMATOLOGYOrdered By: SYSTEM SYSTEM on 09-15-2023 Basophils/100 [...] [Mass/Vol] 73 microgram/dL Normal 35-153 [facility] Comment on above: Performed By: #### 2 101982, 2462523, 2319742, 6020187, 3120375, 5328578, 1368121, 93317664, 3294819, 9938464, 3254939219, 5231992, 9536293406, 895814997, 5076478, 2382586, 5237787768, 2836684 ####[facility] [address] [place] [address] Iron Saturationon 09-15-2023 Iron binding capacity [Mass/Vol] 401 microgram/dL High 250-400 [facility] Comment on above: Performed By: #### 2 506535, 6428521, 9551275, 1910821, 1166321, 8714157, 3982773, 08795579, 6483896, 8782240, 8764509958, 0442415, 3790245960, 766820907, 7666001, 7643939, 6950981434, 4627890 ####[address] [place] [address] Iron saturation [Mass fraction] 18 % Low 20-50 [facility] Comment on above: Performed By: #### 2 040892, 6758300, 0811144, 7177317, 2457136, 8894696, 4111655, 67943978, 7669544, 0247189, 2443371199, 7060020, 2296344165, 278600854, 9406922, 5248552, 7479509233, 2004816 ####[address] [address] LDHon 09-15-2023 LDH [Catalytic activity/Vol] 181 Int._Unit/L Normal 93-218 [facility] Comment on above: Performed By: #### 2 322028, 2562515, 6444161, 9780510, 3013234, 7273819, 9027536, 78938025, 2336333, 7025153, 0960154419, 4788756, 2777805911, 514393508, 1287818, 7849305, 1778355444, 1416109 ####[address] [address] Transferrinon 09-15-2023 Transferrin [Mass/Vol] 286 mg/dL Normal 200-370 [facility] Comment on above: Performed By: #### 2 200148, 5960993, 3835618, 0941814, 3627830, 7508394, 0964269, 87758950, 8096656, 2852244, 7789673499, 2788256, 5262527299, 033232920, 3510804, 5227243, 2007749908, 7361549 ####[address] [place] [address] Vit B12on 09-15-2023 Cobalamin (Vitamin B12) [Mass/Vol] 508 pg/mL Normal 50-1500 [facility] Comment on above: Performed By: #### 2 695404, 9033920, 2742621, 0632994, 3293794, 9552829, 1264314, 76302677, 8351006, 8526515, 4901622846, 6621376, 2348315530, 858035771, 5792631, 9350503, 8596208431, 4223955 ####[facility] [address] [place] [address] eGFRon 09-15-2023 GFR/1.73 sq M.predicted among non-blacks MDRD (S/P/Bld) [Vol rate/Area] 54 mL/min/1.73 m2 Low >=59 [facility] Comment on above: Order Comment: Order added by Discern Expert. Result Comment: [employer] Operations Manager annabella kidney disease could be indicated at eGFR's of less than 60 mL/min/1.73m2. Kidney failure is indicated at less than 15 mL/min/1.73m2. Performed By: #### 2 259939, 6030762, 7671453, 7520379, 0977991, 3656376, 3920445, 97588991, 8273666, 5004761, 4807295535, 3148153, 6471927170, 793742784, 9263991, 5475598, 8801132971, 0528004 ####[facility] [address] [place] [address] Family Medicine Office/Clini c Noteon 09-01-2023 Family Medicine Office/Clinic Note Normal [facility] Comment on above: Result Comment: Elec tronically Signed By: Willian Barrios MD\.br\Date and Time Signed: 09/01/23 12:57 EST\.br\Electronically Co-Signed By: Willie Walker.br\Date and Time Co-Signed: 08/29/23 12:10 EST Outside [facility] Examon 09-01-2023 Outside Diabetes Eye Exam [id number]#1.00TIFF [facility] Ambulatory Visit Summaryon 1 10-29-2022 Ambulatory Visit Summary Invalid Interpretation Code [address] [place] [address]- \.br\ Friday 12:40 PM EST \.br\ With: Ashlie Mead CNP\.br\ Where: [facility] Ambulatory Visit Summary Invalid Interpretation Code [address] [place] [address]- \.br\ Friday 12:40 PM EST \.br\ With: Ashlie Mead CNP\.br\ Where: [facility] Patient Educationon 08-29-20 Patient Education Normal [facility] Screenson 08-29-2023 Screens [id number]#1.00TIFF [facility] 08-21-20 23 Population Health [facility] Population [facility] 08-14-20 23 Population Health [facility] Population [facility] 08-07-20 23 Population Health [facility] Reminderson 08-06-2023 Reminders - From: Ashlie Mead CNP To: Regina Hollingsworth; Sent: 07/31/2023 10:00:12 EDT Show up: 07/31/2023 10:01:00 EDT Subject: Ambulatory Reminder Reminder/Recall Colonoscopy 01/2024. 6 month colon recall 02/03 [facility] Immunization Recordson 08-04 Immunization Records [id number]#1.00TIFF [facility] Ambulatory Visit Summaryon 1 Ambulatory Visit Summary Invalid Interpretation Code [address] [place] [address]- \.br\ Friday 10:00 AM EST \.br\ With:\.br\ Where: [facility]\.br\ Friday 11:20 AM EST \.br\ With: Willian Barrios MD\.br\ Where: [facility] Gastroenterology Office/Clin ic Noteon 07-31-2023 Gastroenterology Office/Clinic Note Normal [facility] Comment on above: Result Comment: Elec tronically Signed By: Ashlie Mead CNP\.br\Date and Time Signed: 07/31/23 10:07 EDT Patient Educationon 07-31-20 Patient Education Normal [facility] Ambulatory Visit Summaryon Ambulatory Visit Summary Invalid Interpretation Code [address] [place] [address]- \.br\ Friday 2:20 PM EST \.br\ With: Willian Barrios MD\.br\ Where: [facility] Family Medicine Office/Clini c Noteon 07-30-2023 Family Medicine Office/Clinic Note Normal [facility] Comment on above: Result Comment: Elec tronically Signed By: Willian Barrios MD\.br\Date and Time Signed: 07/30/23 08:00 EDT IntraOperative Documentson 1 IntraOperative Documents [id number]#1.00TIFF Normal [facility] Patient Educationon 07-30-20 Patient Education Normal [facility] Population Healthon 07-29-20 Population Health Normal [facility] Discharge Instructionson Discharge Instructions [id number]#1.00TIFF Normal [facility] Main OR Intraoperative Recor don 07-28-2023 Main OR Intraoperative Record Normal [facility] Auto Diffon 07-25-2023 Basophils/100 WBC (Bld) 0.9 % Normal 0.0-2.0 [facility] Comment on above: Order Comment: Order Added by Discern Expert. Performed By: #### 2 601752, 4868374 ####[address] [address] Basophils/Leukocyt es Auto (Bld) [Pure # fraction] 0.0 E9/L Normal 0.0-0.2 [facility] Comment on above: Order Comment: Order Added by Discern Expert. Performed By: #### 2 809926, 5064702 ####[address] [address] Eosinophils/100 WBC (Bld) 3.2 % Normal 0.0-8.0 [facility] Comment on above: Order Comment: Order Added by Discern Expert. Performed By: #### 2 368244, 9416140 ####[address] [address] Eosinophils/Leukoc ytes Auto (Bld) [Pure # fraction] 0.1 E9/L Normal 0.0-0.5 [facility] Comment on above: Order Comment: Order Added by Discern Expert. Performed By: #### 2 575456, 1978023 ####[address] [address] Lymphocytes/100 WBC (Bld) 25.7 % Normal 14.0-50.0 [facility] Comment on above: Order Comment: Order Added by Discern Expert. Performed By: #### 2 059182, 5308952 ####[address] [address] Lymphocytes/Leukoc ytes Auto (Bld) [Pure # fraction] 0.6 E9/L Low 1.0-4.0 [facility] Comment on above: Order Comment: Order Added by Discern Expert. Performed By: #### 2 132799, 7272971 ####[address] [address] Monocytes/100 WBC (Bld) 10.8 % Normal 4.0-14.0 [facility] Comment on above: Order Comment: Order Added by Discern Expert. Performed By: #### 2 486587, 8254252 ####[address] [address] Monocytes/Leukocyt es Auto (Bld) [Pure # fraction] 0.3 E9/L Normal 0.2-1.0 [facility] Comment on above: Order Comment: Order Added by Discern Expert. Performed By: #### 2 868912, 0277169 ####[address] [address] Neutrophils/100 WBC (Bld) 59.4 % Normal 36.0-75.0 [facility] Comment on above: Order Comment: Order Added by Discern Expert. Performed By: #### 2 354973, 0604844 ####[address] [address] Neutrophils/Leukoc ytes Auto (Bld) [Pure # fraction] 1.5 E9/L Low 2.0-7.5 [facility] Comment on above: Order Comment: Order Added by Discern Expert. Performed By: #### 2 648198, 2149775 ####[address] [address] CBC w/ Auto Diffon 3 Erythrocyte distribution width (RBC) [Ratio] 13.1 % Normal 10.9-14.2 [facility] Comment on above: Performed By: #### 2 369491, 9176246 ####[address] [address] Hematocrit (Bld) [Volume fraction] 31.8 % Low 34.0-46.0 [facility] Comment on above: Performed By: #### 2 356952, 1583239 ####[address] [address] Hemoglobin (Bld) [Mass/Vol] 10.9 g/dL Low 12.0-16.0 [facility] Comment on above: Performed By: #### 2 916841, 6526866 ####[address] [address] MCH (RBC) [Entitic mass] 31.7 pg Normal 27.0-34.0 [facility] Comment on above: Performed By: #### 2 389926, 3034912 ####[address] [address] MCHC (RBC) [Mass/Vol] 34.3 g/dL Normal 31.4-36.0 [facility] Comment on above: Performed By: #### 2 783286, 5281025 ####[address] [address] MCV (RBC) [Entitic vol] 92.3 fL Normal 80.0-100.0 [facility] Comment on above: Performed By: #### 2 373481, 3957663 ####[address] [address] Platelet mean volume (Bld) [Entitic vol] 8.5 fL Normal 6.4-10.8 [facility] Comment on above: Performed By: #### 2 509180, 3465909 ####[address] [address] Platelets (Bld) [#/Vol] 79.0 E9/L Low 150.0-500.0 [facility] Comment on above: Performed By: #### 2 350235, 2258057 ####[address] [address] RBC (Bld) [#/Vol] 3.4 E12/L Low 4.3-5.9 [facility] Comment on above: Performed By: #### 2 061538, 8740082 ####[address] [address] WBC corrected for nucl RBC Auto (Bld) [#/Vol] 2.5 E9/L Low 4.0-11.0 [facility] Comment on above: Performed By: #### 2 048203, 7404541 ####[address] [address] Capillary Glucose POCon 10- Glucose [Mass/Vol] 89 mg/dL Normal 55-99 [facility] Comment on above: Result Comment: Marilyn newell RN/ Performed By: #### 2 [id number] ####[facility] [address] [place] [address] Consenton 07-25-2023 Consent [id number]#1.00TIFF Normal [facility] Inpatient Clinical Summaryon 07-25-2023 Inpatient Clinical Summary Normal [facility] Inpatient Patient Summaryon 07-25-2023 Inpatient Patient Summary Invalid Interpretation Code [address] [address]- \.br\ Friday 11:00 AM EST \.br\ With:\.br\ Where: [facility] Inpatient Patient Summary Invalid Interpretation Code [address] [address]- \.br\ Friday 11:00 AM EST \.br\ With:\.br\ Where: [facility] Inpatient Patient Summary Normal [facility] Interdisciplinary Note - Lui e Manageron 07-25-2023 Interdisciplinary Note - Seafood Processor [facility] Comment on above: Result Comment: Elec tronically Signed By: Larisa Mccormack\.br\Date and Time Signed: 07/25/23 09:28 EDT Message from Medicareon 07-13 Message from Medicare [id number]#1.00TIFF Normal [facility] Patient Education - Texton 1 Patient Education - Text [facility] Postoperative Documentson Postoperative Documents [id number]#1.00TIFF [facility] Progress Note-Physicianon Progress Note-Physician [facility] Comment on above: Result Comment: Elec tronically Signed By: Jim Dyson Jr, DO\.br\Date and Time Signed: 07/25/23 15:47 EDT Progress Note-Physician Normal [facility] Comment on above: Result Comment: Elec tronically Signed By: Jim Dyson Jr, DO\.br\Date and Time Signed: 07/25/23 15:46 EDT Auto Diffon 07-24-2023 Basophils/100 WBC (Bld) 1.1 % Normal 0.0-2.0 [facility] Comment on above: Order Comment: Order Added by Discern Expert. Performed By: #### 2 920222, 4048641 ####[address] [address] Basophils/Leukocyt es Auto (Bld) [Pure # fraction] 0.0 E9/L Normal 0.0-0.2 [facility] Comment on above: Order Comment: Order Added by Discern Expert. Performed By: #### 2 512570, 8234238 ####[address] [address] Eosinophils/100 WBC (Bld) 2.6 % Normal 0.0-8.0 [facility] Comment on above: Order Comment: Order Added by Discern Expert. Performed By: #### 2 314480, 0360778 ####[address] [address] Eosinophils/Leukoc ytes Auto (Bld) [Pure # fraction] 0.1 E9/L Normal 0.0-0.5 [facility] Comment on above: Order Comment: Order Added by Discern Expert. Performed By: #### 2 464958, 9637972 ####[facility] [address] [place] [address] Lymphocytes/100 WBC (Bld) 31.2 % Normal 14.0-50.0 [facility] Comment on above: Order Comment: Order Added by Discern Expert. Performed By: #### 2 139535, 1504746 ####[facility] [address] [place] [address] Lymphocytes/Leukoc ytes Auto (Bld) [Pure # fraction] 0.8 E9/L Low 1.0-4.0 [facility] Comment on above: Order Comment: Order Added by Discern Expert. Performed By: #### 2 046627, 2603411 ####[address] [address] Monocytes/100 WBC (Bld) 9.8 % Normal 4.0-14.0 [facility] Comment on above: Order Comment: Order Added by Discern Expert. Performed By: #### 2 659887, 6696394 ####[address] [address] Monocytes/Leukocyt es Auto (Bld) [Pure # fraction] 0.2 E9/L Normal 0.2-1.0 [facility] Comment on above: Order Comment: Order Added by Discern Expert. Performed By: #### 2 979023, 0050051 ####[address] [address] Neutrophils/100 WBC (Bld) 55.3 % Normal 36.0-75.0 [facility] Comment on above: Order Comment: Order Added by Discern Expert. Performed By: #### 2 612235, 2360259 ####[address] [address] Neutrophils/Leukoc ytes Auto (Bld) [Pure # fraction] 1.4 E9/L Low 2.0-7.5 [facility] Comment on above: Order Comment: Order Added by Discern Expert. Performed By: #### 2 816371, 2730950 ####[address] [address] CBC w/ Auto Diffon 3 Erythrocyte distribution width (RBC) [Ratio] 13.1 % Normal 10.9-14.2 [facility] Comment on above: Performed By: #### 2 968752, 8281983 ####[address] [address] Hematocrit (Bld) [Volume fraction] 33.2 % Low 34.0-46.0 [facility] Comment on above: Performed By: #### 2 899159, 5384169 ####[address] [address] Hemoglobin (Bld) [Mass/Vol] 11.2 g/dL Low 12.0-16.0 [facility] Comment on above: Performed By: #### 2 922750, 2225115 ####[address] [address] MCH (RBC) [Entitic mass] 31.2 pg Normal 27.0-34.0 [facility] Comment on above: Performed By: #### 2 640179, 3296235 ####[address] [address] MCHC (RBC) [Mass/Vol] 33.7 g/dL Normal 31.4-36.0 [facility] Comment on above: Performed By: #### 2 132577, 6095066 ####[address] [address] MCV (RBC) [Entitic vol] 92.7 fL Normal 80.0-100.0 [facility] Comment on above: Performed By: #### 2 089761, 3767020 ####[address] [address] Platelet mean volume (Bld) [Entitic vol] 8.5 fL Normal 6.4-10.8 [facility] Comment on above: Performed By: #### 2 194694, 3757058 ####[address] [address] Platelets (Bld) [#/Vol] 81.0 E9/L Low 150.0-500.0 [facility] Comment on above: Result Comment: Plat elet count verified using smear estimate Performed By: #### 2 199219, 9109059 ####[address] [address] RBC (Bld) [#/Vol] 3.6 E12/L Low 4.3-5.9 [facility] Comment on above: Performed By: #### 2 075301, 1275798 ####[facility] [address] [place] [address] WBC corrected for nucl RBC Auto (Bld) [#/Vol] 2.5 E9/L Low 4.0-11.0 [facility] Comment on above: Performed By: #### 2 861853, 4493495 ####[facility] [address] [place] [address] Consent for Treatmenton 07-13 Consent for Treatment [id number]#1.00TIFF Normal [facility] Endoscopic Procedure Report - Otheron 07-24-2023 Endoscopic Procedure Report - Other Normal [facility] Comment on above: Result Comment: Elec tronically Signed By: Rachid PATTEN, Deborah Bell\.br\Date and Time Signed: 07/24/23 11:16 EDT Other Comment: Radha landaverde Attachment - attachment storage system not supported [id number] Can be viewed in [facility] Attachment - attachment storage system not supported [id number] Can be viewed in [facility]Miss[facility] Attachment - attachment storage system not supported [id number] Can be viewed in [facility]Miss[facility] Attachment - attachment storage system not supported [id number] Can be viewed in source [facility]Miss[facility] Attachment - attachment storage system not supported [id number] Can be viewed in [facility]Miss[facility] Attachment - attachment storage system not supported [id number] Can be viewed in source systemMissing Attachment - attachment storage system not supported [id number] Can be viewed in source systemMissing Attachment - attachment storage system not supported [id number] Can be viewed in source [facility]Miss[facility] Attachment - attachment storage system not supported 5437458 Can be viewed in [facility]Miss[facility] Attachment - attachment storage system not supported 9618412 Can be viewed in source systemMissing Attachment - attachment storage system not supported 4606314 Can be viewed in source [facility]Miss[facility] Attachment - attachment storage system not supported 4112885 Can be viewed in source systemMiss[facility] Attachment - attachment storage system not supported [id number] Can be viewed in source systemMissbr[facility] Attachment - attachment storage system not supported 8307621 Can be viewed in source systemMissing Attachment - attachment storage system not supported [id number] Can be viewed in source system Main OR PACU I Recordon 07-13 Main OR PACU I Record Normal [facility] Main OR Preoperative Recordo n 07-24-2023 Main OR Preoperative Record Normal [facility] Monitor Recordon 07-24-2023 Monitor Record [id number]#1.00TIFF Normal [facility] Monitor Record [id number]#1.00TIFF [facility] Outpatient Surgery Discharge Instructionon 07-24-2023 Outpatient Surgery Discharge Instruction [facility] Consent for Treatmenton 07-13 Consent for Treatment [id number]#1.00TIFF Normal [facility] Oncology Progress Noteon Oncology Progress Note [facility] Pathology Noteon 07-09-2023 Pathology Note [id number]#1.00CD:127 [facility] Pathology Reporton 3 Pathology Report [id number]#1.00CD:127 [facility] Pathology Reporton 3 Pathology Report [id number]#1.00CD:127 Normal [facility] Pathology Report [id number]#1.00CD:127 Normal [facility] Pathology Report [id number]#1.00CD:127 Normal [facility] Family Medicine Office/Clini c Noteon 07-02-2023 Family Medicine Office/Clinic Note Normal [facility] Comment on above: Result Comment: Elec tronically Signed By: Denis PATTEN, Willian Daleybr\Date and Time Signed: 07/02/23 09:33 EDT\.br\Electronically Co-Signed By: Almita Garcia\.br\Date and Time Co-Signed: 06/30/23 14:28 EDT Pathology Reporton Pathology Report [id number]#1.00CD:127 Normal [facility] Ambulatory Visit Summaryon 0 06-30-2023 Ambulatory Visit Summary Invalid Interpretation Code [address] [place] [address]- \.br\ Friday 11:20 AM EST \.br\ With: Willian Barrios MD\.br\ Where: [facility] Auto Diffon 06-30-2023 Basophils/100 WBC (Bld) 0.9 % Normal 0.0-2.0 [facility] Comment on above: Order Comment: Order Added by Discern Expert. Performed By: #### 2 723693, 2270575 ####[address] [address] Basophils/Leukocyt es Auto (Bld) [Pure # fraction] 0.0 E9/L Normal 0.0-0.2 [facility] Comment on above: Order Comment: Order Added by Discern Expert. Performed By: #### 2 740506, 7771256 ####[address] [address] Eosinophils/100 WBC (Bld) 3.9 % Normal 0.0-8.0 [facility] Comment on above: Order Comment: Order Added by Discern Expert. Performed By: #### 2 040644, 7078197 ####[address] [address] Eosinophils/Leukoc ytes Auto (Bld) [Pure # fraction] 0.1 E9/L Normal 0.0-0.5 [facility] Comment on above: Order Comment: Order Added by Discern Expert. Performed By: #### 2 655918, 7254274 ####[address] [place] [address] Lymphocytes/100 WBC (Bld) 28.2 % Normal 14.0-50.0 [facility] Comment on above: Order Comment: Order Added by Discern Expert. Performed By: #### 2 927083, 0797326 ####[address] [address] Lymphocytes/Leukoc ytes Auto (Bld) [Pure # fraction] 0.7 E9/L Low 1.0-4.0 [facility] Comment on above: Order Comment: Order Added by Discern Expert. Performed By: #### 2 830899, 3988059 ####[address] [address] Monocytes/100 WBC (Bld) 9.1 % Normal 4.0-14.0 [facility] Comment on above: Order Comment: Order Added by Discern Expert. Performed By: #### 2 459975, 4593964 ####[address] [address] Monocytes/Leukocyt es Auto (Bld) [Pure # fraction] 0.2 E9/L Normal 0.2-1.0 [facility] Comment on above: Order Comment: Order Added by Discern Expert. Performed By: #### 2 243561, 9421523 ####[address] [address] Neutrophils/100 WBC (Bld) 57.9 % Normal 36.0-75.0 [facility] Comment on above: Order Comment: Order Added by Discern Expert. Performed By: #### 2 217582, 2551446 ####[address] [address] Neutrophils/Leukoc ytes Auto (Bld) [Pure # fraction] 1.5 E9/L Low 2.0-7.5 [facility] Comment on above: Order Comment: Order Added by Areli Expert. Performed By: #### 2 473016, 0556280 ####[address] [address] CBC w/ Auto Diffon 3 Erythrocyte distribution width (RBC) [Ratio] 12.8 % Normal 10.9-14.2 [facility] Comment on above: Performed By: #### 2 438572, 5207114 ####[address] [address] Hematocrit (Bld) [Volume fraction] 36.4 % Normal 34.0-46.0 [facility] Comment on above: Performed By: #### 2 125678, 1013909 ####[address] [address] Hemoglobin (Bld) [Mass/Vol] 12.3 g/dL Normal 12.0-16.0 [facility] Comment on above: Performed By: #### 2 371953, 4351789 ####[address] [address] MCH (RBC) [Entitic mass] 31.4 pg Normal 27.0-34.0 [facility] Comment on above: Performed By: #### 2 191493, 3368534 ####[address] [address] MCHC (RBC) [Mass/Vol] 33.7 g/dL Normal 31.4-36.0 [facility] Comment on above: Performed By: #### 2 628920, 1670393 ####[address] [address] MCV (RBC) [Entitic vol] 93.2 fL Normal 80.0-100.0 [facility] Comment on above: Performed By: #### 2 022631, 1603999 ####[address] [address] Platelet mean volume (Bld) [Entitic vol] 9.6 fL Normal 6.4-10.8 [facility] Comment on above: Performed By: #### 2 965244, 6984557 ####[address] [address] Platelets (Bld) [#/Vol] 79.0 E9/L Low 150.0-500.0 [facility] Comment on above: Performed By: #### 2 926787, 4469759 ####[facility] [address] [place] [address] RBC (Bld) [#/Vol] 3.9 E12/L Low 4.3-5.9 [facility] Comment on above: Performed By: #### 2 209312, 3674322 ####[facility] [address] [place] [address] WBC corrected for nucl RBC Auto (Bld) [#/Vol] 2.7 E9/L Low 4.0-11.0 [facility] Comment on above: Performed By: #### 2 685060, 6193785 ####[facility] [address] [place] [address] CHEMISTRYOrdered By: SYSTEM SYSTEM on 06-30-2023 Albumin [...] HDL [Mass/Vol] 35 mg/dL Invalid Interpretation Code [facility] Cholesterol in LDL [Mass/Vol] 83 mg/dL Normal <=129mg/dL [facility] Cholesterol in VLDL [Mass/Vol] 20 mg/dL Normal 7 - 40 mg/dL [facility] CO2 [Moles/Vol] 26 mmol/L Normal 21 - 31 mmol/L [facility] Creatinine [Mass/Vol] 1.2 mg/dL Normal 0.5 - 1.3 mg/dL [facility] GFR/1.73 sq M.predicted among non-blacks MDRD (S/P/Bld) [Vol rate/Area] 49 mL/min/1.73 m2 Low >=59mL/min/1.73 m2 [facility] Chem S Globulin (S) [Mass/Vol] 3.3 g/dL Normal 1.4 - 4.0 gm/dL [facility] Glucose [Mass/Vol] 289 mg/dL High 55 - 199 mg/dL [facility] Potassium [Moles/Vol] 4.1 mmol/L Normal 3.5 - 5.3 mmol/L [facility] Protein [Mass/Vol] 6.9 g/dL Normal 6.0 - 7.8 gm/dL F [facility] Remisol Sodium [Moles/Vol] 136 mmol/L Normal 135 - 145 mmol/L [facility] Triglyceride [Mass/Vol] 102 mg/dL Normal <=149mg/dL [facility] Urea nitrogen [Mass/Vol] 19 mg/dL Normal 5 - 21 mg/dL [facility] Urea nitrogen/Creatinin e [Mass ratio] 16 mg/mg Normal 10 - 20 [facility] CHEMISTRYOrdered By: Gabriela Kincaid on 06-30-2023 Albumin DL <= 20 mg/L (U) [Mass/Vol] microgram/mL Normal 0.0 - 19.0 mcg/mL [facility] Albumin Elph (U) [Mass fraction] mg/dL Invalid Interpretation Code [facility] Creatinine (U) [Mass/Vol] 82.1 mg/dL Invalid Interpretation Code [facility]isol U Prot/Creat Ratio UTC Invalid Interpretation Code 0.00 - 200.00 [facility] CHEMISTRYOrdered By: Jamison meadows on 06-30-2023 HbA1c (Bld) [Mass fraction] 7.0 % High <=5.9% [facility] ChemAutoSS CMPon 06-30-2023 Albumin [Mass/Vol] 3.6 g/dL Normal 3.3-5.0 [facility] Comment on above: Performed By: #### 2 847601, 53321283, 8595466, [id number] ####[facility] [address] [place] [address] Albumin/Globulin (S) [Mass conc ratio] 1.1 Normal 1.1-2.2 [facility] Comment on above: Performed By: #### 2 120065, 15646674, 4116179, 385431957 ####[facility] [address] [place] [address] ALP [Catalytic activity/Vol] 66 Int._Unit/L Normal 21-98 [facility] Comment on above: Performed By: #### 2 355461, 16304170, 2910638, 730898063 ####[facility] [address] [place] [address] ALT No additional P-5'-P [Catalytic activity/Vol] 21 Int._Unit/L Normal 6-46 [facility] Comment on above: Performed By: #### 2 236040, 85700200, 6809375, 179829956 ####[facility] [address] [place] [address] Anion gap [Moles/Vol] 11 mmol/L Normal 6-16 [facility] Comment on above: Performed By: #### 2 723689, 18264626, 6213715, 454841734 ####[facility] [address] [place] [address] AST [Catalytic activity/Vol] 37 Int._Unit/L Normal 5-43 [facility] Comment on above: Performed By: #### 2 305913, 72575679, 4439247, 275134421 ####[facility] [address] [place] [address] Bilirubin [Mass/Vol] 0.8 mg/dL Normal 0.0-1.1 [facility] Comment on above: Performed By: #### 2 830172, 18973052, 1944674, 065953639 ####[facility] [address] [place] [address] Calcium [Mass/Vol] 9.5 mg/dL Normal 8.9-11.1 [facility] Comment on above: Performed By: #### 2 713254, 83250114, 3141164, 037700010 ####[facility] [address] [place] [address] Chloride [Moles/Vol] 103 mmol/L Normal 101-111 [facility] Comment on above: Performed By: #### 2 103250, 51089103, 9638781, 450341755 ####[facility] [address] [place] [address] CO2 [Moles/Vol] 26 mmol/L Normal 21-31 [facility] Comment on above: Performed By: #### 2 064704, 77399828, 6305016, 571961016 ####[facility] [address] [place] [address] Creatinine [Mass/Vol] 1.2 mg/dL Normal 0.5-1.3 [facility] Comment on above: Performed By: #### 2 942145, 92875847, 9733674, 275862155 ####[facility] [address] [place] [address] Globulin (S) [Mass/Vol] 3.3 g/dL Normal 1.4-4.0 [facility] Comment on above: Performed By: #### 2 758410, 00928985, 9337243, 116214163 ####[facility] [address] [place] [address] Glucose [Mass/Vol] 289 mg/dL High 55-199 [facility] Comment on above: Result Comment: If t his glucose result represents a fasting glucose, interpretation should refer to the following reference range: 55-99 mg/dL Performed By: #### 2 820312, 28671924, 8265044, [id number] ####[facility] [address] [place] [address] Potassium [Moles/Vol] 4.1 mmol/L Normal 3.5-5.3 [facility] Comment on above: Performed By: #### 2 071520, 44268034, 9955840, 619106592 ####[facility] [address] [place] [address] Protein [Mass/Vol] 6.9 g/dL Normal 6.0-7.8 [facility] Comment on above: Performed By: #### 2 688449, 38597552, 6716833, 280741583 ####[facility] [address] [place] [address] Sodium [Moles/Vol] 136 mmol/L Normal 135-145 [facility] Comment on above: Performed By: #### 2 288253, 29953275, 5372981, 916627633 ####[facility] [address] [place] [address] Urea nitrogen [Mass/Vol] 19 mg/dL Normal 5-21 [facility] Comment on above: Performed By: #### 2 970295, 71965968, 6867922, 996877237 ####[facility] [address] [place] [address] Urea nitrogen/Creatinin e [Mass ratio] 16 No Units Normal 10-20 [facility] Comment on above: Performed By: #### 2 008741, 95977858, 7447103, [id number] ####[facility] [address] [place] [address] HEMATOLOGYOrdered By: SYSTEM SYSTEM on 06-30-2023 Basophils/100 WBC (Bld) 0.9 % Normal 0.0 - 2.0 % [facility] HemeAutoSS Basophils/Leukocyt es Auto (Bld) [Pure [...] 79.0 E9/L Low 150.0 - 500.0 E9/L [facility] HemeAutoSS RBC (Bld) [#/Vol] 3.9 E12/L Low 4.3 - 5.9 E12/L FT HemeAutoSS WBC corrected for nucl RBC Auto (Bld) [#/Vol] 2.7 E9/L Low 4.0 - 11.0 E9/L [facility] HemeAutoSS PkiD7yhl 06-30-2023 HbA1c (Bld) [Mass fraction] 7.0 % High <=5.9 [facility] Comment on above: Performed By: #### 2 095233, 01788957, 5578669, [id number] ####[facility] [address] [place] [address] Lipid Panelon 06-30-2023 Cholesterol [Mass/Vol] 140 mg/dL Normal 120-200 [facility] Comment on above: Performed By: #### 2 061569, 30250946, 5035196, 129392421 ####[facility] [address] [place] [address] Cholesterol in HDL [Mass/Vol] 35 mg/dL Invalid Interpretation Code [facility] Comment on above: Result Comment: HDL > or equal to 60 mg/dL: Low cardiovascular riskHDL < 40 mg/dL : High cardiovascular risk Performed By: #### 2 308170, 08151526, 8537867, [id number] ####[facility] [address] [place] [address] Cholesterol in LDL [Mass/Vol] 83 mg/dL Normal <=129 [facility] Comment on above: Performed By: #### 2 294603, 61899194, 5170554, [id number] ####[facility] [address] [place] [address] Cholesterol in VLDL [Mass/Vol] 20 mg/dL Normal 7-40 [facility] Comment on above: Performed By: #### 2 428519, 94083577, 7542738, 322371506 ####[facility] [address] [place] [address] Triglyceride [Mass/Vol] 102 mg/dL Normal <=149 [facility] Comment on above: Performed By: #### 2 632540, 50163375, 6695393, [id number] ####[facility] [address] [place] [address] Pathology Reporton Pathology Report [id number]#1.00CD:127 Normal [facility] Pathology Report [id number]#1.00CD:127 Normal [facility] Pathology Report [id number]#1.00CD:127 Normal [facility] Pathology Report [id number]#1.00CD:127 Normal [facility] Pathology Report [id number]#1.00CD:127 Normal [facility] Comment on above: Other Comment: cleri moses U Microalbon 06-30-2023 Albumin DL <= 20 mg/L (U) [Mass/Vol] mg/dL Normal 0.0-19.0 [facility] Comment on above: Performed By: #### 1 [id number], [id number] ####[facility] [address] [place] [address] U Protein/Creat Ratioon 06-13 Creatinine (U) [Mass/Vol] 82.1 mg/dL Invalid Interpretation Code [facility] Comment on above: Result Comment: The reference range and other method performance specifications have not been established for this test; results should be integrated into the clinical context for interpretation. Performed By: #### 1 5543579, [id number] ####[facility] [address] [place] [address] U Prot/Creat Ratio [facility] Invalid Interpretation Code .00-200.00 [facility] Comment on above: Performed By: #### 1 0389240, [id number] ####[address] [place] [address] Albumin Elph (U) [Mass fraction] <6.0 Invalid Interpretation Code [facility] Comment on above: Result Comment: The reference range and other method performance specifications have not been established for this test; results should be integrated into the clinical context for interpretation. Performed By: #### 1 7287396, [id number] ####[address] [place] [address] eGFRon 06-30-2023 GFR/1.73 sq M.predicted among non-blacks MDRD (S/P/Bld) [Vol rate/Area] 49 mL/min/1.73 m2 Low >=59 [facility] Comment on above: Order Comment: Order added by Discern Expert. Result Comment: Geothermal Operations Manager annabella kidney disease could be indicated at eGFR's of less than 60 mL/min/1.73m2. Kidney failure is indicated at less than 15 mL/min/1.73m2. Performed By: #### 2 554070, [id number], 5916528, [id number] ####[address] [place] [address] Discharge Instructionson Discharge Instructions [id number]#1.00CD:127 Normal [facility] Preoperative Documentson Preoperative Documents [id number]#1.00CD:127 Normal [facility] Auto Diffon 06-24-2023 Basophils/100 WBC (Bld) 1.5 % Normal 0.0-2.0 [facility] Comment on above: Order Comment: Order Added by Discern Expert. Performed By: #### 2 045445, 4491026 ####[address] [place] [address] Basophils/Leukocyt es Auto (Bld) [Pure # fraction] 0.0 E9/L Normal 0.0-0.2 [facility] Comment on above: Order Comment: Order Added by Discern Expert. Performed By: #### 2 883544, 2389619 ####[address] [address] Eosinophils/100 WBC (Bld) 3.9 % Normal 0.0-8.0 [facility] Comment on above: Order Comment: Order Added by Discern Expert. Performed By: #### 2 621696, 0653700 ####[address] [address] Eosinophils/Leukoc ytes Auto (Bld) [Pure # fraction] 0.1 E9/L Normal 0.0-0.5 [facility] Comment on above: Order Comment: Order Added by Discern Expert. Performed By: #### 2 055276, 6417172 ####[address] [address] Lymphocytes/100 WBC (Bld) 31.3 % Normal 14.0-50.0 [facility] Comment on above: Order Comment: Order Added by Discern Expert. Performed By: #### 2 646804, 1570838 ####[address] [address] Lymphocytes/Leukoc ytes Auto (Bld) [Pure # fraction] 0.8 E9/L Low 1.0-4.0 [facility] Comment on above: Order Comment: Order Added by Discern Expert. Performed By: #### 2 050912, 0201596 ####[address] [address] Monocytes/100 WBC (Bld) 10.5 % Normal 4.0-14.0 [facility] Comment on above: Order Comment: Order Added by Discern Expert. Performed By: #### 2 025927, 4815679 ####[address] [address] Monocytes/Leukocyt es Auto (Bld) [Pure # fraction] 0.3 E9/L Normal 0.2-1.0 [facility] Comment on above: Order Comment: Order Added by Discern Expert. Performed By: #### 2 845657, 9184515 ####[address] [place] [address] Neutrophils/100 WBC (Bld) 52.8 % Normal 36.0-75.0 [facility] Comment on above: Order Comment: Order Added by Discern Expert. Performed By: #### 2 822699, 5480440 ####[address] [address] Neutrophils/Leukoc ytes Auto (Bld) [Pure # fraction] 1.3 E9/L Low 2.0-7.5 [facility] Comment on above: Order Comment: Order Added by Discern Expert. Performed By: #### 2 324972, 7414778 ####[address] [address] CBC w/ Auto Diffon Erythrocyte distribution width (RBC) [Ratio] 12.6 % Normal 10.9-14.2 [facility] Comment on above: Performed By: #### 2 880008, 3184852 ####[address] [address] Hematocrit (Bld) [Volume fraction] 35.1 % Normal 34.0-46.0 [facility] Comment on above: Performed By: #### 2 502089, 7061846 ####[address] [address] Hemoglobin (Bld) [Mass/Vol] 12.0 g/dL Normal 12.0-16.0 [facility] Comment on above: Performed By: #### 2 641741, 1662818 ####[address] [address] MCH (RBC) [Entitic mass] 31.6 pg Normal 27.0-34.0 [facility] Comment on above: Performed By: #### 2 233278, 8800915 ####[address] [address] MCHC (RBC) [Mass/Vol] 34.1 g/dL Normal 31.4-36.0 [facility] Comment on above: Performed By: #### 2 323345, 0309330 ####[facility] [address] [place] [address] MCV (RBC) [Entitic vol] 92.7 fL Normal 80.0-100.0 [facility] Comment on above: Performed By: #### 2 470381, 8605870 ####[facility] [address] [place] [address] Platelet mean volume (Bld) [Entitic vol] 8.4 fL Normal 6.4-10.8 [facility] Comment on above: Performed By: #### 2 719727, 4552538 ####[address] [address] Platelets (Bld) [#/Vol] 83.0 E9/L Low 150.0-500.0 [facility] Comment on above: Result Comment: Slid e reviewed by TLP.Platelet count verified using smear estimate. Performed By: #### 2 498347, 7620965 ####[address] [address] RBC (Bld) [#/Vol] 3.8 E12/L Low 4.3-5.9 [facility] Comment on above: Performed By: #### 2 768020, 0775340 ####[address] [address] WBC corrected for nucl RBC Auto (Bld) [#/Vol] 2.5 E9/L Low 4.0-11.0 [facility] Comment on above: Performed By: #### 2 493769, 4551238 ####[address] [address] [address] Bone Marrow Biopsyon 06-13 CT Bone Marrow Biopsy Normal [facility] Consent for Treatmenton 06-13 Consent for Treatment [id number]#1.00CD:127 Normal [facility] HEMATOLOGYOrdered By: SYSTEM SYSTEM on 06-24-2023 Basophils/100 [...] 8.4 fL Normal 6.4 - 10.8 fL [facility] HemeAutoSS Platelets (Bld) [#/Vol] 83.0 E9/L Low 150.0 - 500.0 E9/L [facility] HemeAutoSS Comment on above: Result Comment: Slid e reviewed by TLP. Platelet count verified using smear estimate. RBC (Bld) [#/Vol] 3.8 E12/L Low 4.3 - 5.9 E12/L [facility] HemeAutoSS WBC corrected for nucl RBC Auto (Bld) [#/Vol] 2.5 E9/L Low 4.0 - 11.0 E9/L [facility] HemeAutoSS Main OR PACU II Recordon Main OR PACU II Record Normal [facility] RAD - Consent to Procedureon 06-24-2023 RAD - Consent to Procedure [id number]#1.00CD:127 Normal [facility] Outside Labson 06-19-2023 Outside Labs [id number]#1.00CD:127 Normal [facility] Consent for Treatmenton Consent for Treatment [id number]#1.00CD:127 Normal [facility] Oncology Progress Noteon Oncology Progress Note Normal [facility] Physician Orderon 06-17-2023 Physician Order [id number]#1.00CD:127 Normal [facility] Auto Diffon 06-12-2023 Basophils/100 WBC (Bld) 1.1 % Normal 0.0-2.0 [facility] Comment on above: Order Comment: Order Added by Discern Expert. Performed By: #### 2 075734, 5374372 ####[facility] [address] [place] [address] Basophils/Leukocyt es Auto (Bld) [Pure # fraction] 0.0 E9/L Normal 0.0-0.2 [facility] Comment on above: Order Comment: Order Added by Discern Expert. Performed By: #### 2 269809, 9873221 ####[facility] [address] [place] [address] Eosinophils/100 WBC (Bld) 4.1 % Normal 0.0-8.0 [facility] Comment on above: Order Comment: Order Added by Discern Expert. Performed By: #### 2 171834, 1544233 ####[address] [address] Eosinophils/Leukoc ytes Auto (Bld) [Pure # fraction] 0.1 E9/L Normal 0.0-0.5 [facility] Comment on above: Order Comment: Order Added by Discern Expert. Performed By: #### 2 933155, 7427485 ####[address] [address] Lymphocytes/100 WBC (Bld) 27.6 % Normal 14.0-50.0 [facility] Comment on above: Order Comment: Order Added by Discern Expert. Performed By: #### 2 541045, 6830162 ####[address] [address] Lymphocytes/Leukoc ytes Auto (Bld) [Pure # fraction] 0.8 E9/L Low 1.0-4.0 [facility] Comment on above: Order Comment: Order Added by Areli Expert. Performed By: #### 2 288614, 0093905 ####[address] [address] Monocytes/100 WBC (Bld) 10.4 % Normal 4.0-14.0 [facility] Comment on above: Order Comment: Order Added by Discern Expert. Performed By: #### 2 229527, 4186594 ####[address] [address] Monocytes/Leukocyt es Auto (Bld) [Pure # fraction] 0.3 E9/L Normal 0.2-1.0 [facility] Comment on above: Order Comment: Order Added by Discern Expert. Performed By: #### 2 527980, 5689700 ####[facility] [address] [place] [address] Neutrophils/100 WBC (Bld) 56.8 % Normal 36.0-75.0 [facility] Comment on above: Order Comment: Order Added by Discern Expert. Performed By: #### 2 740504, 2717514 ####[facility] [address] [place] [address] Neutrophils/Leukoc ytes Auto (Bld) [Pure # fraction] 1.7 E9/L Low 2.0-7.5 [facility] Comment on above: Order Comment: Order Added by Discern Expert. Performed By: #### 2 145738, 7006176 ####[address] [address] CBC w/ Auto Diffon Erythrocyte distribution width (RBC) [Ratio] 12.8 % Normal 10.9-14.2 [facility] Comment on above: Performed By: #### 2 044690, 0295994 ####[address] [address] Hematocrit (Bld) [Volume fraction] 36.7 % Normal 34.0-46.0 [facility] Comment on above: Performed By: #### 2 132734, 1273107 ####[address] [address] Hemoglobin (Bld) [Mass/Vol] 12.2 g/dL Normal 12.0-16.0 [facility] Comment on above: Performed By: #### 2 422026, 2124167 ####[address] [place] [address] MCH (RBC) [Entitic mass] 31.3 pg Normal 27.0-34.0 [facility] Comment on above: Performed By: #### 2 193193, 4357530 ####[facility] [address] [place] [address] MCHC (RBC) [Mass/Vol] 33.3 g/dL Normal 31.4-36.0 [facility] Comment on above: Performed By: #### 2 555153, 0338794 ####[address] [address] MCV (RBC) [Entitic vol] 93.8 fL Normal 80.0-100.0 [facility] Comment on above: Performed By: #### 2 759658, 1682597 ####[address] [address] Platelet mean volume (Bld) [Entitic vol] 9.1 fL Normal 6.4-10.8 [facility] Comment on above: Performed By: #### 2 747883, 3639830 ####[address] [address] Platelets (Bld) [#/Vol] 102.0 E9/L Low 150.0-500.0 [facility] Comment on above: Performed By: #### 2 445274, 9769255 ####[address] [address] RBC (Bld) [#/Vol] 3.9 E12/L Low 4.3-5.9 [facility] Comment on above: Performed By: #### 2 487097, 1517297 ####[address] [address] WBC corrected for nucl RBC Auto (Bld) [#/Vol] 3.0 E9/L Low 4.0-11.0 [facility] Comment on above: Performed By: #### 2 338373, 5453780 ####[address] [address] Consent for Treatmenton 05-15 Consent for Treatment [id number]#1.00CD:127 Normal [facility] HEMATOLOGYOrdered By: SYSTEM SYSTEM on 06-12-2023 Basophils/100 [...] 9.1 fL Normal 6.4 - 10.8 fL [facility] HemeAutoSS Platelets (Bld) [#/Vol] 102.0 E9/L Low 150.0 - 500.0 E9/L [facility] HemeAutoSS RBC (Bld) [#/Vol] 3.9 E12/L Low 4.3 - 5.9 E12/L [facility] HemeAutoSS WBC corrected for nucl RBC Auto (Bld) [#/Vol] 3.0 E9/L Low 4.0 - 11.0 E9/L [facility] HemeAutoSS Consent for Procedure/Surger yon 06-05-2023 Consent for Procedure/Surgery [id number]#1.00CD:127 Normal [facility] Ambulatory Visit Summaryon 0 06-04-2023 Ambulatory Visit Summary Invalid Interpretation Code [address] [place] [address]- \.br\ Friday 2:20 PM EST \.br\ With: Denis PATTEN, Willian Weiner\.br\ Where: [facility] Gastroenterology Office/Clin ic Noteon 06-04-2023 Gastroenterology Office/Clinic Note Normal [facility] Comment on above: Result Comment: Elec tronically Signed By: Rachid PATTEN, Deborah Bell\.br\Date and Time Signed: 06/04/23 14:05 EDT Lab Reportson 05-29-2023 Lab Reports [id number]#1.00CD:127 Normal [facility] Office Visiton 05-29-2023 Follow-up visit [id number] Juanjo Santos 1955 F Date Provider Department Center 05/29/2023 66989-CQZSLCJMFDELMAR DOUGLAS [facility] No family history on file Level of Service:25768 [place] OFFICE/OUTPATIENT ESTABLISHED MOD MDM 30-39 MIN Reason for Visit and Comments: Follow-up [108981] - Early follow up Normal [facility] Auto Diffon 05-27-2023 Basophils/100 WBC (Bld) 1.3 % Normal 0.0-2.0 [facility] Comment on above: Order Comment: Order Added by Areli Expert. Performed By: #### 2 674592, 3011978 ####[address] [address] Basophils/Leukocyt es Auto (Bld) [Pure # fraction] 0.0 E9/L Normal 0.0-0.2 [facility] Comment on above: Order Comment: Order Added by Discern Expert. Performed By: #### 2 463927, 0862452 ####[address] [address] Eosinophils/100 WBC (Bld) 5.3 % Normal 0.0-8.0 [facility] Comment on above: Order Comment: Order Added by Areli Expert. Performed By: #### 2 572146, 2839175 ####[address] [address] Eosinophils/Leukoc ytes Auto (Bld) [Pure # fraction] 0.2 E9/L Normal 0.0-0.5 [facility] Comment on above: Order Comment: Order Added by Areli Expert. Performed By: #### 2 010179, 0743549 ####[address] [address] Lymphocytes/100 WBC (Bld) 26.5 % Normal 14.0-50.0 [facility] Comment on above: Order Comment: Order Added by Areli Expert. Performed By: #### 2 820696, 8914426 ####[address] [address] Lymphocytes/Leukoc ytes Auto (Bld) [Pure # fraction] 0.8 E9/L Low 1.0-4.0 [facility] Comment on above: Order Comment: Order Added by Areli Expert. Performed By: #### 2 388092, 9969635 ####[address] [address] Monocytes/100 WBC (Bld) 10.9 % Normal 4.0-14.0 [facility] Comment on above: Order Comment: Order Added by Discern Expert. Performed By: #### 2 345831, 3066437 ####[address] [address] Monocytes/Leukocyt es Auto (Bld) [Pure # fraction] 0.3 E9/L Normal 0.2-1.0 [facility] Comment on above: Order Comment: Order Added by Discern Expert. Performed By: #### 2 771931, 8146392 ####[address] [address] Neutrophils/100 WBC (Bld) 56.0 % Normal 36.0-75.0 [facility] Comment on above: Order Comment: Order Added by Discern Expert. Performed By: #### 2 604114, 0758452 ####[address] [address] Neutrophils/Leukoc ytes Auto (Bld) [Pure # fraction] 1.6 E9/L Low 2.0-7.5 [facility] Comment on above: Order Comment: Order Added by Discern Expert. Performed By: #### 2 417967, 8657656 ####[address] [address] CBC w/ Auto Diffon 3 Erythrocyte distribution width (RBC) [Ratio] 13.0 % Normal 10.9-14.2 [facility] Comment on above: Performed By: #### 2 543903, 8773340 ####[address] [address] Hematocrit (Bld) [Volume fraction] 32.9 % Low 34.0-46.0 [facility] Comment on above: Performed By: #### 2 201749, 9272436 ####[address] [address] Hemoglobin (Bld) [Mass/Vol] 11.2 g/dL Low 12.0-16.0 [facility] Comment on above: Performed By: #### 2 103263, 6691591 ####[address] [place] [address] MCH (RBC) [Entitic mass] 31.7 pg Normal 27.0-34.0 [facility] Comment on above: Performed By: #### 2 055778, 9948267 ####[address] [address] MCHC (RBC) [Mass/Vol] 34.2 g/dL Normal 31.4-36.0 [facility] Comment on above: Performed By: #### 2 231754, 1774807 ####[address] [address] MCV (RBC) [Entitic vol] 92.7 fL Normal 80.0-100.0 [facility] Comment on above: Performed By: #### 2 528606, 0041656 ####[address] [address] Platelet mean volume (Bld) [Entitic vol] 8.5 fL Normal 6.4-10.8 [facility] Comment on above: Performed By: #### 2 377304, 4976106 ####[address] [address] Platelets (Bld) [#/Vol] 99.0 E9/L Low 150.0-500.0 [facility] Comment on above: Result Comment: Slid e reviewed by ANU.Platelet count verified using smear estimate Performed By: #### 2 680727, 2686500 ####[address] [address] RBC (Bld) [#/Vol] 3.6 E12/L Low 4.3-5.9 [facility] Comment on above: Performed By: #### 2 881952, 3214006 ####[address] [address] WBC corrected for nucl RBC Auto (Bld) [#/Vol] 2.9 E9/L Low 4.0-11.0 [facility] Comment on above: Performed By: #### 2 334186, 7115267 ####[facility] [address] [place] [address] Consent for Treatmenton 05-13 Consent for Treatment [id number]#1.00CD:[address] HEMATOLOGYOrdered By: SYSTEM SYSTEM on 05-27-2023 [...] 11.0 E9/L FT HemeAutoSS Comp panel: Leuk/Lym [id number] n 05-16-2023 Analysis and Gating Strategy Comment Invalid Interpretation Code [facility] Comment on above: Result Comment: 8 co afshin analysis with CD45/SSC gatingTechnical-Analysis performed at [employer], [address] [place] [address] ,[place] [address] Director: Sonia Capps [facility] Performed By: #### 1 [id number], [id number], [id number], 3042588, [id number], [id number], [id number] ####[facility] [address] [place] [address] Annotation comment [Interpretation] Narrative Comment Invalid Interpretation Code [facility] Comment on above: Result Comment: Clin ical correlation is recommended. Performed By: #### 1 [id number], [id number], [id number], 3719504, [id number], 530225996, [id number] ####[facility] [address] [place] [address] Assessment of Leukocytes Comment Invalid Interpretation Code [facility] Comment on above: Result Comment: [...] 71%, NKcells 16%. Performed By: #### 1 838365069, 6073796494, 1765180214, 1070996, 4350352451, 319051602, [id number] ####[facility] [address] [place] [address] CLINICAL INFORMATION:FIND:P T: Comment Invalid Interpretation Code [facility] Comment on above: Result Comment: A re cent CBC was not available for review at the time this report wasprepared. Performed By: #### 1 [id number], [id number], [id number], 8844269, 3775415549, 215146194, [id number] ####[facility] [address] [place] [address] Immunophenotyping study Comment Invalid Interpretation Code [facility] Comment on above: Result Comment: CD2 Normal CD3 NormalCD4 Normal CD5 NormalCD7 Normal CD8 WyajkhCR18 Normal CD11b RbwkodNK63 Normal CD14 JqlqtyBU10 Normal CD19 RnkfipEW01 Normal CD33 HhiffiOA61 Normal CD38 KeydxjNF39 Normal CD56 YccbfhKQ16 Normal CD117 NormalHLA-DR Normal KAPPA NormalLAMBDA Normal CD64 Normal Performed By: #### 1 [id number], 1557736346, 7939217075, 4424165, 0573302078, 412166617, 6164870209 ####[facility] [address] [place] [address] Laboratory comment Good (Report) Comment Invalid Interpretation Code [facility] Comment on above: Result Comment: Each antibody in this assay was utilized to assess for potentialabnormalities of studied cell populations or to characterizeidentified abnormalities.This test was developed and its performance characteristics determinedby [employer]. It has not been cleared or approved by the U.S. Food andDrug Administration.The FDA has determined that such clearance or approval is notnecessary. This test is used for clinical purposes. It should not beregarded as investigational or for research.Performed at: -Y [facility] [id number] [facility] [place] [id number] [facility] Génesis DawsonnPerformed at: TG [facility] [id number] [place], [place] [id number] [facility] Génesis Scott Performed By: #### 1 [id number], 1391793145, [id number], 2698892, [id number], 669598945, [id number] ####[address] [place] [address] Pathologist interpretation (Unsp spec) [Interp] Comment Invalid Interpretation Code [facility] Comment on above: Result Comment: No s ignificant immunophenotypic abnormality detected Performed By: #### 1 [id number], [id number], [id number], 7911858, 8142802804, 088612183, 9496342228 ####[address] [place] [address] Pathologist name Comment Invalid Interpretation Code [facility] Comment on above: Result Comment: Hoang Enamorado M.D. Performed By: #### 1 [id number], 9429457925, 9578022520, 4794952, 3834753145, 084593277, 5664491907 ####[address] [place] [address] Specimen source Nom (Unsp spec) Comment Invalid Interpretation Code [facility] Comment on above: Result Comment: Mary pheral blood Performed By: #### 1 [id number], 4175447088, 9478120025, 0016021, 7386280403, 410269316, 2496908687 ####[address] [place] [address] Viable cells/100 cells (Unsp spec) Comment Invalid Interpretation Code [facility] Comment on above: Result Comment: 86% Performed By: #### 1 [id number], 5601842841, 3852554061, 5913385, 0694132371, 718922504, 7446512735 ####[facility] [address] [place] [address] Flow Interp 16 or moreon 3 Flow Interp 16 or more Performed Invalid Interpretation Code [facility] Comment on above: Result Comment: Perf ormed at: -Y [facility] [id number] [address] [place], [place] [id number] [facility] Chenn Anjen Performed By: #### 1 960399188, 4283488138, 2265225473, 1638633, 0127312072, 282827926, 5137066244 ####[facility] [address] [place] [address] Flow Marker, Firston 023 Flow Marker, First Performed Invalid Interpretation Code [facility] Comment on above: Result Comment: Perf ormed at: -Y [facility] [id number] [address] [place], [place] [id number] [facility] Chenn Anjen Performed By: #### 1 396377792, 1674559752, 0496157374, 1295396, 0549590634, 661599053, 9649044241 ####[facility] [address] [place] [address] Flow Markers X 15on 05-16-20 23 Flow Markers X 15 Performed Invalid Interpretation Code [facility] Comment on above: Result Comment: Perf ormed at: -Y [facility] [id number] [address] [place], [place] [id number] [facility] Chenn Anjen Performed By: #### 1 [id number], 3187957526, 9414943013, 1686962, 3793934928, 795728987, 6251308186 ####[facility] [address] [place] [address] Flow Markers X 3on 3 Flow Markers X 3 Performed Invalid Interpretation Code [facility] Comment on above: Result Comment: Perf ormed at: -Y [facility] [id number] [address] [place], [place] [id number] [facility] Génesis Nathanjen Performed By: #### 1 [id number], 8001784069, 8754704074, 2072649, 9687829521, 772507640, 6784847875 ####[facility] [address] [place] [address] Flow Markers X 5on 3 Flow Markers X 5 Performed Invalid Interpretation Code [facility] Comment on above: Result Comment: Perf ormed at: -Y [facility] [id number] [place], [place] [id number] [facility] Génesis Anjen Performed By: #### 1 [id number], 2292297002, 3849854369, 1253629, 1853276137, 342154347, 0486611202 ####[facility] [address] [place] [address] Lab Miscellaneous-LCon 05-16 Lab Miscellaneous COMMENT Invalid Interpretation Code [facility] Comment on above: Result Comment: Test Ordered: 211641 Platelet Antibody ProfileHLA Class 1 Antibody Negative BNReference Range: NegativeIIb/IIIa Antibody Negative BNReference Range: NegativeIb/IX Antibody Negative BNReference Range: NegativeIa/IIa Antibody Negative BNReference Range: NegativeGlycoprotein IV Antibody Negative BNReference Range: NegativePerformed at: [facility] [address] [place], [place] [id number] PhD David Alexandra Performed By: #### 1 [id number] ####[facility] [address] [place] [address] Consent for Treatmenton Consent for Treatment [id number]:127 Normal [facility] Consent for Treatment [id number]#1.00CD:127 Normal [facility] HEMATOLOGYOrdered By: Mera Kincaid on 05-13-2023 Platelets (Bld) [#/Vol] 99.0 E9/L Low 150.0 - 500.0 E9/L [facility] HemeAutoSS Comment on above: Result Comment: Slid e reviewed by ANU. Lab Miscellaneous-LCon 05-13 Test Code 343205 Invalid Interpretation Code [facility] Comment on above: Performed By: #### 1 [id number] ####[facility] [address] [place] [address] Test Name Platelet Antibo Invalid Interpretation Code [facility] Comment on above: Performed By: #### 1 [id number] ####[facility] [address] [place] [address] Oncology Noteon 05-13-2023 Oncology Note Normal [facility] Comment on above: Result Comment: Elec tronically Signed By: Maria M MATOS, Ana Luisa Shepherd\.br\Date and Time Signed: 05/13/23 11:13 EDT Oncology Progress Noteon Oncology Progress Note Normal [facility] Oncology Progress Note Normal [facility] Platelet Counton 05-13-2023 Platelets (Bld) [#/Vol] 99.0 E9/L Low 150.0-500.0 [facility] Comment on above: Order Comment: citra enid tube Result Comment: Slid e reviewed by ANU. Performed By: #### 1 [id number], 7636413225, 5820845165, 3254021, 4518500864, 212468148, 3858078799 ####[facility] [address] [place] [address] Reference Laboratory Testing Ordered By: Louann Girard on 05-13-2023 Test Code 058309 Invalid Interpretation Code [facility] SendOutsSS Test Name Platelet Antibo Invalid Interpretation Code [facility] SendOutsSS Consenton 05-02-2023 Consent [id number]:127 Normal [facility] Lab Miscellaneous-LCon 05-02 Lab Miscellaneous COMMENT Invalid Interpretation Code [facility] Comment on above: Order Comment: CPT - 50996, 25555w9, 94394, 93510, 95123a6, 22359 Result Comment: Test Ordered: 142690 Flow Cytometry PNHInterpretation: Comment ;#Peripheral Blood:No evidence of paroxysmal nocturnal hemoglobinuria (PNH)DISCLAIMER: REFER TO HARDCOPY OR PDF FOR COMPLETE RESULT.If synopsis provided, clinical decisions should not bebased on this interfaced synopsis alone.Performed at: [address] [id number] PhD David Alexandra Performed By: #### 1 [id number] ####[address] [place] [address] ILANA w/Reflex if POSon 2022 Nuclear Ab Ql (S) Negative Invalid Interpretation Code Negative [facility] Comment on above: Result Comment: Perf ormed at: [facility] [place] [address] [id number] PhD David Alexandra Performed By: #### 1 3514993, 5011733, 00067354, 34441140, 4979494, 9938171, 1772097, 2110727, 97179077, 3819794, 5242970, 8933894, 1996615, 8461283 ####[address] [address] Copper Lvlon 05-01-2023 Copper [Mass/Vol] 118 microgram/dL Invalid Interpretation Code 80-158 [facility] Comment on above: Result Comment: This test was developed and its performance characteristicsdetermined by [employer]. It has not been cleared or approvedby the Food and Drug Administration.Detection Limit = 5Performed at: [address] [place], [place] [id number] MD Christiano Kolb Performed By: #### 1 1564109, 6962879, 79422942, 70703961, 6342718, 5919444, 6312286, 6077157, 77995954, 1068953, 7675233, 0535725, 3760978, 8903577 ####[address] [place] [address] RF Quanton 05-01-2023 Rheumatoid factor Qn [IU]/mL Invalid Interpretation Code <14.0 [facility] Comment on above: Result Comment: Perf ormed at: [facility] [place], [place] [id number] PhD David Alexandra Performed By: #### 1 3649736, 3242663, 62194612, 53358017, 7178967, 4334313, 8175919, 2532172, 18239818, 8058599, 0977648, 1089597, 7010683, 9202178 ####[facility] [address] [place] [address] Auto Diffon 04-29-2023 Basophils/100 WBC (Bld) 1.1 % Normal 0.0-2.0 [facility] Comment on above: Order Comment: Order Added by Discern Expert. Performed By: #### 1 6830559, 7638238, 98325623, 98447903, 2776307, 3424104, 8821528, 8962000, 17121207, 1557980, 1615078, 3851494, 4390595, 4734442 ####[facility] [address] [place] [address] Basophils/Leukocyt es Auto (Bld) [Pure # fraction] 0.0 E9/L Normal 0.0-0.2 [facility] Comment on above: Order Comment: Order Added by Discern Expert. Performed By: #### 1 9671262, 2600406, 81571827, 83374226, 0323025, 9424502, 7469439, 2159007, 91984826, 7531838, 8796418, 9486110, 1575949, 5621593 ####[facility] [address] [place] [address] Eosinophils/100 WBC (Bld) 4.5 % Normal 0.0-8.0 [facility] Comment on above: Order Comment: Order Added by Discern Expert. Performed By: #### 1 7927579, 1864075, 99251687, 83377477, 2030850, 8743852, 9701065, 9203827, 63635675, 8489758, 0810849, 1835990, 1949652, 4937181 ####[facility] [address] [place] [address] Eosinophils/Leukoc ytes Auto (Bld) [Pure # fraction] 0.2 E9/L Normal 0.0-0.5 [facility] Comment on above: Order Comment: Order Added by Discern Expert. Performed By: #### 1 5043403, 7646459, 99825058, 77790961, 2560368, 3184432, 1312373, 0580302, 41437053, 7699930, 0726499, 9020052, 7744095, 9331577 ####[address] [place] [address] Lymphocytes/100 WBC (Bld) 23.0 % Normal 14.0-50.0 [facility] Comment on above: Order Comment: Order Added by Discern Expert. Performed By: #### 1 0753372, 1772068, 87397374, 46412124, 2053097, 7521392, 8754692, 5049530, 60164434, 8950724, 0557251, 0748208, 8759983, 9820450 ####[address] [place] [address] Lymphocytes/Leukoc ytes Auto (Bld) [Pure # fraction] 0.8 E9/L Low 1.0-4.0 [facility] Comment on above: Order Comment: Order Added by Discern Expert. Performed By: #### 1 6077379, 7046899, 92531691, 08608483, 0618189, 0976988, 5359226, 8585593, 32213179, 4161160, 9255052, 8984869, 8693662, 2997873 ####[address] [place] [address] Monocytes/100 WBC (Bld) 10.7 % Normal 4.0-14.0 [facility] Comment on above: Order Comment: Order Added by Discern Expert. Performed By: #### 1 7404535, 7644072, 33693932, 99969463, 2460040, 8659449, 9859961, 6094709, 68514574, 1271279, 4538989, 1830959, 6352068, 5323460 ####[address] [place] [address] Monocytes/Leukocyt es Auto (Bld) [Pure # fraction] 0.4 E9/L Normal 0.2-1.0 [facility] Comment on above: Order Comment: Order Added by Discern Expert. Performed By: #### 1 7776798, 5042974, 09872336, 56552142, 4415681, 6400976, 9713350, 1566926, 63690122, 4244566, 8780358, 9421986, 3069201, 9187880 ####[address] [address] Neutrophils/100 WBC (Bld) 60.7 % Normal 36.0-75.0 [facility] Comment on above: Order Comment: Order Added by Discern Expert. Performed By: #### 1 3598467, 5474508, 30052216, 38185018, 2857506, 2184029, 6678132, 4614788, 39114162, 4161626, 2536340, 5334118, 7155783, 9118751 ####[address] [address] Neutrophils/Leukoc ytes Auto (Bld) [Pure # fraction] 2.1 E9/L Normal 2.0-7.5 [facility] Comment on above: Order Comment: Order Added by Discern Expert. Performed By: #### 1 3724288, 0913412, 54448930, 01351049, 9606785, 7169333, 5791385, 5899323, 89932624, 2692712, 8734495, 3902220, 2354583, 7233778 ####[address] [place] [address] CBC w/ Auto Diffon 3 Erythrocyte distribution width (RBC) [Ratio] 13.3 % Normal 10.9-14.2 [facility] Comment on above: Performed By: #### 1 1602883, 9478753, 16100107, 10876659, 3333403, 1175814, 8421004, 7075497, 69415523, 0002065, 3241598, 9758062, 0519314, 7541847 ####[facility] [address] [place] [address] Hematocrit (Bld) [Volume fraction] 36.7 % Normal 34.0-46.0 [facility] Comment on above: Performed By: #### 1 9367351, 4145599, 18888803, 90375499, 7617284, 8281985, 4409385, 9616955, 52897497, 6385065, 9074805, 8028445, 1958744, 8949286 ####[address] [place] [address] Hemoglobin (Bld) [Mass/Vol] 12.5 g/dL Normal 12.0-16.0 [facility] Comment on above: Performed By: #### 1 3621417, 6442156, 41864526, 49960967, 1414744, 5660190, 5580293, 5836645, 13882649, 1113192, 3287917, 5730447, 5510625, 6909708 ####[address] [address] MCH (RBC) [Entitic mass] 31.2 pg Normal 27.0-34.0 [facility] Comment on above: Performed By: #### 1 1559503, 5517123, 66664651, 86017928, 4267734, 3660695, 5924902, 1666070, 16481980, 8876904, 4089737, 9560065, 7056533, 0650191 ####[facility] [address] [place] [address] MCHC (RBC) [Mass/Vol] 34.0 g/dL Normal 31.4-36.0 [facility] Comment on above: Performed By: #### 1 5533722, 5910328, 24885947, 17203121, 3894562, 2915304, 5393563, 0470215, 20474201, 5650231, 6232686, 4270748, 2370310, 8732041 ####[facility] [address] [place] [address] MCV (RBC) [Entitic vol] 91.6 fL Normal 80.0-100.0 [facility] Comment on above: Performed By: #### 1 2698846, 1724461, 69070472, 75156657, 1343222, 7865865, 6612385, 6756753, 84392348, 3949761, 2272018, 1966898, 5222111, 9859427 ####[facility] [address] [place] [address] Platelet mean volume (Bld) [Entitic vol] 9.0 fL Normal 6.4-10.8 [facility] Comment on above: Performed By: #### 1 3042666, 4453854, 32848479, 72341313, 1045298, 7177437, 0602448, 3082081, 09932843, 9748983, 8250827, 5298294, 7887523, 2064636 ####[facility] [address] [place] [address] Platelets (Bld) [#/Vol] 89.0 E9/L Low 150.0-500.0 [facility] Comment on above: Result Comment: Slid e reviewed by tsdeleonor platelets. Performed By: #### 1 1910098, 5111450, 52042382, 26330322, 8620184, 1800293, 1994624, 8349983, 84155338, 4012175, 0438907, 7220339, 2650934, 1494767 ####[facility] [address] [place] [address] RBC (Bld) [#/Vol] 4.0 E12/L Low 4.3-5.9 [facility] Comment on above: Performed By: #### 1 4695341, 5478095, 94107757, 98872544, 2126604, 5587666, 2302757, 4834411, 23391347, 4793543, 8879515, 8945891, 5366418, 5648040 ####[facility] [address] [place] [address] WBC corrected for nucl RBC Auto (Bld) [#/Vol] 3.5 E9/L Low 4.0-11.0 [facility] Comment on above: Performed By: #### 1 9433455, 6675326, 91705339, 87910956, 3773645, 8233607, 0974180, 0782224, 55864442, 7862759, 3632489, 2985698, 2998383, 0301388 ####[facility] [address] [place] [address] CMPon 04-29-2023 Albumin [Mass/Vol] 3.6 g/dL Normal 3.3-5.0 [facility] Comment on above: Performed By: #### 1 9524510, 4400333, 41322632, 07644757, 1794322, 7964400, 9459046, 0788408, 45934410, 3617695, 1156946, 3146680, 3478962, 2112417 ####[facility] [address] [place] [address] Albumin/Globulin (S) [Mass conc ratio] 1.0 Low 1.1-2.2 [facility] Comment on above: Performed By: #### 1 9920603, 3995310, 32135057, 82954222, 9417083, 0815476, 8133141, 6656691, 13583755, 4917539, 2286580, 2548504, 8552630, 0942055 ####[facility] [address] [place] [address] ALP [Catalytic activity/Vol] 76 Int._Unit/L Normal 21-98 [facility] Comment on above: Performed By: #### 1 1196486, 2052526, 71979891, 35499652, 5487042, 4133751, 8491166, 4431722, 01969644, 1496336, 6762110, 8723582, 7328175, 3445346 ####[facility] [address] [place] [address] ALT No additional P-5'-P [Catalytic activity/Vol] 23 Int._Unit/L Normal 6-46 [facility] Comment on above: Performed By: #### 1 0227349, 0564930, 81830211, 68669055, 7738440, 5004690, 8307470, 7593229, 48916589, 9859777, 7084350, 2579508, 7119569, 1783996 ####[facility] [address] [place] [address] Anion gap [Moles/Vol] 15 mmol/L Normal 6-16 [facility] Comment on above: Performed By: #### 1 7664401, 8938523, 91849398, 92008659, 9442800, 3388974, 5970952, 9543962, 38778182, 5682720, 9339653, 1985662, 6970485, 8500888 ####[facility] [address] [place] [address] AST [Catalytic activity/Vol] 44 Int._Unit/L High 5-43 [facility] Comment on above: Performed By: #### 1 8311252, 4250946, 29206114, 89592153, 7795347, 6478682, 6071765, 5969986, 34080750, 2623155, 2850594, 1563418, 9218137, 3193401 ####[facility] [address] [place] [address] Bilirubin [Mass/Vol] 1.2 mg/dL High 0.0-1.1 [facility] Comment on above: Performed By: #### 1 0493371, 4746108, 56059115, 64290513, 5478766, 1340286, 2668774, 2388160, 47489906, 9445104, 1109230, 1831444, 5562191, 8899319 ####[facility] [address] [place] [address] Calcium [Mass/Vol] 9.3 mg/dL Normal 8.9-11.1 [facility] Comment on above: Performed By: #### 1 8840813, 0705625, 82323635, 75558664, 4913170, 3842275, 7028933, 2661972, 45723755, 9303727, 5562202, 7704531, 1530429, 1381257 ####[facility] [address] [place] [address] Chloride [Moles/Vol] 105 mmol/L Normal 101-111 [facility] Comment on above: Performed By: #### 1 1010786, 6247097, 07488791, 99844970, 2764010, 7859247, 5379835, 7730079, 34227841, 2865591, 2088226, 7732502, 9074841, 2610611 ####[facility] [address] [place] [address] CO2 [Moles/Vol] 23 mmol/L Normal 21-31 [facility] Comment on above: Performed By: #### 1 3605480, 6132701, 81143231, 77340235, 8790196, 4465297, 9806552, 8521532, 30737751, 2921442, 9604889, 2472704, 6129456, 9342936 ####[facility] [address] [place] [address] Creatinine [Mass/Vol] 1.1 mg/dL Normal 0.5-1.3 [facility] Comment on above: Performed By: #### 1 3327718, 9744268, 32830445, 83292539, 7896073, 2520240, 5897021, 2768434, 56561291, 1586084, 0544417, 0569148, 0447702, 6556024 ####[facility] [address] [place] [address] Globulin (S) [Mass/Vol] 3.5 g/dL Normal 1.4-4.0 [facility] Comment on above: Performed By: #### 1 9386336, 8043391, 29315321, 96090914, 1392289, 7986462, 0465131, 3006557, 63390277, 0698663, 3993120, 0641283, 6873801, 7308518 ####[facility] [address] [place] [address] Glucose [Mass/Vol] 155 mg/dL Normal 55-199 [facility] Comment on above: Result Comment: If t his glucose result represents a fasting glucose, interpretation should refer to the following reference range: 55-99 mg/dL Performed By: #### 1 6061644, 1044800, 38518389, 65913808, 5867674, 3478522, 4399344, 3333015, 90170030, 8820404, 8739467, 0058999, 9517610, 1152065 ####[facility] [address] [place] [address] Potassium [Moles/Vol] 3.5 mmol/L Normal 3.5-5.3 [facility] Comment on above: Performed By: #### 1 3446558, 3888162, 81760488, 11310212, 9117839, 0217761, 3195320, 9721014, 62721378, 6672655, 1078101, 4093859, 8615261, 7253552 ####[facility] [address] [place] [address] Protein [Mass/Vol] 7.1 g/dL Normal 6.0-7.8 [facility] Comment on above: Performed By: #### 1 6108984, 9773080, 89348988, 79424454, 1174804, 1325086, 5367927, 8858287, 84950975, 9371197, 3025792, 0082385, 8464356, 8137684 ####[facility] [address] [place] [address] Sodium [Moles/Vol] 139 mmol/L Normal 135-145 [facility] Comment on above: Performed By: #### 1 5149092, 7412202, 10571574, 55422140, 0624408, 0034610, 9034751, 6899338, 62033026, 7868858, 5044441, 0968262, 3495916, 0877766 ####[facility] [address] [place] [address] Urea nitrogen [Mass/Vol] 13 mg/dL Normal 5-21 [facility] Comment on above: Performed By: #### 1 8881680, 3461049, 46735448, 57531675, 4551699, 1669716, 1171070, 3737077, 19055465, 3578690, 1738638, 0545762, 2420542, 8721864 ####[facility] [address] [place] [address] Urea nitrogen/Creatinin e [Mass ratio] 12 No Units Normal 10-20 [facility] Comment on above: Performed By: #### 1 9755001, 7825983, 78220447, 44496391, 9796238, 7670707, 0872545, 9480629, 73758660, 5738436, 2011011, 1555321, 2809102, 0207629 ####[facility] [address] [place] [address] Consent for Treatmenton 04-12 Consent for Treatment [id number]:127 Normal [facility] Consent for Treatment [id number]:127 Normal [facility] DATon 04-29-2023 LETICIA IgG/C3d Gel Interp Negative Normal [facility] Comment on above: Performed By: #### 1 7520443 ####[facility] [address] [place] [address] Ferritinon 04-29-2023 Ferritin [Mass/Vol] 45 ng/mL Normal 11-307 [facility] Comment on above: Result Comment: NORM ALS MEN <30 YRS 16-132 ng/mL MEN >30 YRS 8-338 ng/mL WOMEN (PREMEN) 6-104 ng/mL WOMEN (POSTMEN) 12-210 ng/mL Performed By: #### 1 6210264, 7337898, 99725214, 88072325, 7573439, 4260911, 8236297, 2148951, 59327517, 4867760, 2409945, 2355643, 1955135, 0044395 ####[facility] [address] [place] [address] Folateon 04-29-2023 Folate [Mass/Vol] 12.6 ng/mL Normal >=6.7 [facility] Comment on above: Performed By: #### 1 8938059, 6194564, 24813264, 32270228, 1839721, 9601616, 2078373, 8680790, 83852401, 8978532, 3841678, 5638814, 7348599, 5051053 ####[facility] [address] [place] [address] Ironon 04-29-2023 Iron [Mass/Vol] 128 microgram/dL Normal 35-153 [facility] Comment on above: Performed By: #### 1 2303153, 2929690, 42963397, 30454868, 4738088, 2724198, 6204948, 6055965, 85024306, 2174114, 8569839, [id number], [id number], [id number] ####[facility] [id number] [place] [address] Iron Saturationon 04-29-2023 Iron binding capacity [Mass/Vol] 391 microgram/dL Normal 250-400 [facility] Comment on above: Performed By: #### 1 [id number], 9016962, [id number], 93182952, 1103767, 3029960, 3627580, 8332967, 47087631, 8497348, 0306778, 1994838, 9319686, 2891065 ####[facility] [address] [place] [address] Iron saturation [Mass fraction] 33 % Normal 20-50 [facility] Comment on above: Performed By: #### 1 [id number], 9632192, 52605633, 82934618, 7250300, 3430327, 5181767, 4862246, 14097236, 9179790, 1262851, 8543552, 0700844, 4379479 ####[address] [place] [address] LDHon 04-29-2023 LDH [Catalytic activity/Vol] 195 Int._Unit/L Normal 93-218 [facility] Comment on above: Performed By: #### 1 [id number], 1414612, 47355979, 64347133, 7604428, 1567708, 0450475, 6635132, 41127134, 3810947, 9316391, 7488419, 4812047, 4623909 ####[address] [address] Lab Miscellaneous-LCon 04-29 Test Code 161909 Invalid Interpretation Code [facility] Comment on above: Order Comment: CPT - 83989, 50642e5, 59380, 33663, 59950l7, 83613 Performed By: #### 1 [id number] ####[address] [address] Test Name PNH Flow Cytome Invalid Interpretation Code [facility] Comment on above: Order Comment: CPT - 05169, 21388k7, 46051, 19440, 66101f2, 62648 Performed By: #### 1 [id number] ####[address] [address] Oncology Noteon 04-29-2023 Oncology Note Normal [facility] Comment on above: Result Comment: Elec tronically Signed By: Maria M MATOS, Ana Luisa Shepherd\.br\Date and Time Signed: 04/29/23 10:56 EDT Transferrinon 04-29-2023 Transferrin [Mass/Vol] 279 mg/dL Normal 200-370 [facility] Comment on above: Performed By: #### 1 [id number], 5076433, 94655426, 89489386, 6678979, 0367399, 9320905, 9148485, 61178032, 6725297, 6432907, 6276322, 9577688, 2372109 ####[facility] [address] [place] [address] Vit B12on 04-29-2023 Cobalamin (Vitamin B12) [Mass/Vol] 549 pg/mL Normal 50-1500 [facility] Comment on above: Performed By: #### 1 [id number], 4449888, 87752388, 22524696, 6987381, 5588078, 3954833, 4754709, 74363564, 5798932, 6536787, 2290904, 2062404, 4830737 ####[facility] [address] [place] [address] eGFRon 04-29-2023 GFR/1.73 sq M.predicted among non-blacks MDRD (S/P/Bld) [Vol rate/Area] 54 mL/min/1.73 m2 Low >=59 [facility] Comment on above: Order Comment: Order added by Discern Expert. Result Comment: [employer] Operations Manager annabella kidney disease could be indicated at eGFR's of less than 60 mL/min/1.73m2. Kidney failure is indicated at less than 15 mL/min/1.73m2. Performed By: #### 1 [id number], 5951946, 03603349, 11853839, 0835957, 3773594, 3152702, 5772151, 55620740, 4986141, 2079208, 1533007, 5330288, 1373208 ####[facility] [address] [place] [address] CHEMISTRYOrdered By: SYSTEM SYSTEM on 03-17-2023 Albumin [...] % High <=5.9% [facility] HEMATOLOGYOrdered By: [employer] SYSTEM on 03-17-2023 Basophils/100 WBC (Bld) 1.2 [...] FREE T3 1.81 pg/mlL Critically low 2.18-3.98 [facility] Comment on above: Performed By: #### T SH, FT3 #### [facility] [address] [place] [address] Dr. Jt Waite FREE T4on 09-18-2022 Free T4 [Mass/Vol] 1.19 ng/dL Normal 0.76-1.46 [facility] Comment on above: Performed By: #### F T4 #### [facility] [address] [address] [address] Jt Waite GLYCOHEMOGLOBIN A1Con 2021 ADA RECOMMENDATION SEE BELOW Normal [facility] Comment on above: Result Comment: ADA RECOMMENDED LIMIT 4.0 - 6.0 ADA THERAPEUTIC TARGET < 7.0 ACTION SUGGESTED > 7.0 Performed By: #### A 1C #### [facility] [address] [place] [address] Dr. Jt Waite Glucose [Mass/Vol] 146 mg/dL Normal [facility] Comment on above: Performed By: #### A 1C #### [facility] [address] [place] [address] Dr. Jt Waite HbA1c (Bld) [Mass fraction] 6.7 % Critically high 4.5-6.2 [facility] Comment on above: Performed By: #### A 1C #### [facility] [address] [place] [address] Dr. Jt Waite TSHon 09-18-2022 TSH 3.693 uIU/mL Normal 0.358-3.740 [facility] Comment on above: Performed By: #### T , FT3 ####[facility] [address] [address]Dr. Jt Waite CBC AUTO DIFFon 04-03-2022 BASO # 0.0 103/ul Normal 0.0-0.1 [facility] Comment on above: Performed By: #### C BC #### [facility] [address] [place] [address] Dr. Jt Waite Basophils/100 WBC (Bld) 0.9 % Normal 0.2-2.0 [facility] Comment on above: Performed By: #### C BC #### [facility] [address] [place] [address] Dr. Jt Waite EO # 0.1 103/ul Normal 0.0-0.7 [facility] Comment on above: Performed By: #### C BC #### [facility] [address] [place] [address] Dr. Jt Waite Eosinophils/100 WBC (Bld) 3.3 % Normal 0.9-7.0 [facility] Comment on above: Performed By: #### C BC #### [facility] [address] [place] [address] Dr. Jt Waite Erythrocyte distribution width (RBC) [Ratio] 13.1 % Normal 11.0-15.0 [facility] Comment on above: Performed By: #### C BC #### [facility] [address] [place] [address] Dr. Jt Waite Hematocrit (Bld) [Volume fraction] 36.1 % Normal 36.0-48.0 [facility] Comment on above: Performed By: #### C BC #### [facility] [address] [place] [address] Dr. Jt Waite Hemoglobin (Bld) [Mass/Vol] 12.3 g/dL Normal 12.0-16.0 [facility] Comment on above: Performed By: #### C BC #### [facility] [address] [place] [address] Dr. Jt Waite IG # 0.01 10e3/ul Normal 0.00-0.03 [facility] Comment on above: Performed By: #### C BC #### [facility] [address] [place] [address] Dr. Jt Waite IG % 0.3 % Normal 0.0-0.5 [facility] Comment on above: Performed By: #### C BC #### [facility] [address] [place] [address] Dr. Jt Waite LYMPH # 1.2 103/ul Normal 1.2-3.8 [facility] Comment on above: Performed By: #### C BC #### [facility] [address] [place] [address] Dr. Jt Waiet Lymphocytes/100 WBC (Bld) 35.4 % Normal 20.5-60.0 [facility] Comment on above: Performed By: #### C BC #### [facility] [address] [place] [address] Dr. Jt Waite MANUAL DIFF REQ NO Normal [facility] Comment on above: Performed By: #### C BC #### [facility] [address] [place] [address] Dr. Jt Waite MCH (RBC) [Entitic mass] 31.0 pg Normal 26.7-34.0 [facility] Comment on above: Performed By: #### C BC #### [facility] [address] [place] [address] Dr. Jt Waite MCHC (RBC) [Mass/Vol] 34.1 g/dL Normal 29.9-35.2 [facility] Comment on above: Performed By: #### C BC #### [facility] [address] [place] [address] Dr. Jt Waite MCV (RBC) [Entitic vol] 90.9 fL Normal 81.0-99.0 [facility] Comment on above: Performed By: #### C BC #### [facility] [address] [place] [address] Dr. Jt Waite MONO # 0.3 103/ul Normal 0.3-0.8 [facility] Comment on above: Performed By: #### C BC #### [facility] [address] [place] [address] Dr. Jt Waite Monocytes/100 WBC (Bld) 9.3 % Normal 1.7-12.0 [facility] Comment on above: Performed By: #### C BC #### [facility] [address] [place] [address] Dr. Jt Waite NEUT # 1.7 103/ul Normal 1.4-6.5 [facility] Comment on above: Performed By: #### C BC #### [facility] [address] [place] [address] Dr. Jt Waite Neutrophils/100 WBC (Bld) 50.8 % Normal 43.0-75.0 [facility] Comment on above: Performed By: #### C BC #### [facility] [address] [place] [address] Dr. Jt Waite Platelet mean volume (Bld) [Entitic vol] 10.2 fL Normal 9.5-13.5 [facility] Comment on above: Performed By: #### C BC #### [facility] [address] [place] [address] Dr. Jt Waite PLT 96 103/ul Critically low 150-450 [facility] Comment on above: Performed By: #### C BC #### [facility] [address] [place] [address] Dr. Jt Waite RBC 3.97 106/ul Critically low 4.20-5.40 [facility] Comment on above: Performed By: #### C BC #### [facility] [address] [place] [address] Dr. Jt Waite WBC 3.3 103/ul Critically low 4.0-11.0 [facility] Comment on above: Performed By: #### C BC #### [facility] [address] [place] [address] Dr. Jt Waite GLYCOHEMOGLOBIN A1Con 2021 ADA RECOMMENDATION SEE BELOW Normal [facility] Comment on above: Result Comment: ADA RECOMMENDED LIMIT 4.0 - 6.0 ADA THERAPEUTIC TARGET < 7.0 ACTION SUGGESTED > 7.0 Performed By: #### A 1C #### [facility] [address] [place] [address] Dr. Jt Waite Glucose [Mass/Vol] 120 mg/dL Normal [facility] Comment on above: Performed By: #### A 1C #### [facility] [address] [place] [address] Dr. Jt Waite HbA1c (Bld) [Mass fraction] 5.8 % Normal 4.5-6.2 [facility] Comment on above: Performed By: #### A 1C #### [facility] [address] [place] [address] Dr. Jt Waite LIPID PROFILEon 04-03-2022 CHOL-HDL RATIO NORM SEE BELOW Normal [facility] Comment on above: Result Comment: 3.3 - 4.4 LOW RISK 4.4 - 7.1 AVERAGE RISK 7.1 - 11.0 MODERATE RISK >11.0 HIGH RISK Performed By: #### C MP, LIPID #### [facility] [address] [place] [address] Dr. Jt Waite Cholesterol [Mass/Vol] 133 mg/dL Normal <=200 [facility] Comment on above: Performed By: #### C MP, LIPID #### [facility] [address] [place] [address] Dr. Jt Waite Cholesterol in HDL [Mass/Vol] 37 mg/dL Critically low 40-60 [facility] Comment on above: Performed By: #### C MP, LIPID #### [facility] [address] [place] [address] Dr. Jt Waite Cholesterol in LDL [Mass/Vol] 81.0 mg/dL Normal [facility] Comment on above: Performed By: #### C MP, LIPID #### [facility] [address] [place] [address] Dr. Jt Waite Cholesterol.total/ Cholesterol in HDL [Mass ratio] 3.6 {ratio} Normal [facility] Comment on above: Performed By: #### C MP, LIPID #### [facility] [address] [place] [address] Dr. Jt Waite HDL NORMAL > or = 60 mg/dl - LO W CARDIOVASCULAR RISK <40 mg/dl - HIGH CARDIOVASCULAR RISK Normal [facility] Comment on above: Performed By: #### C MP, LIPID #### [facility] [address] [place] [address] Dr. Jt Waite LDL CALC NORMAL SEE BELOW Normal [facility] Comment on above: Result Comment: <100 mg/dl OPTIMAL 100 - 129 mg/dl NEAR OR ABOVE OPTIMAL 130 - 159 mg/dl BORDERLINE HIGH 160 - 189 mg/dl HIGH >190 mg/dl VERY HIGH Performed By: #### C MP, LIPID #### [facility] [address] [place] [address] Dr. Jt Waite Triglyceride [Mass/Vol] 75 mg/dL Normal <=150 [facility] Comment on above: Performed By: #### C MP, LIPID #### [facility] [address] [place] [address] Dr. Jt Waite VLDL CALC 15.0 mg/dL Normal [facility] Comment on above: Performed By: #### C MP, LIPID #### [facility] [address] [place] [address] Dr. Jt Waite PROF 14(COMP METB)on 022 Albumin [Mass/Vol] 3.4 g/dL Normal 3.4-5.0 [facility] Comment on above: Performed By: #### C MP, LIPID #### [facility] [address] [place] [address] Dr. Jt Waite Albumin/Globulin [Mass ratio] 0.9 {ratio} Normal [facility] Comment on above: Performed By: #### C MP, LIPID #### [facility] [address] [place] [address] Dr. Jt Waite ALP [Catalytic activity/Vol] 82 U/L Normal 46-116 [facility] Comment on above: Performed By: #### C MP, LIPID #### [facility] [address] [place] [address] Dr. Jt Waite ALT [Catalytic activity/Vol] 24 U/L Normal 14-59 [facility] Comment on above: Performed By: #### C MP, LIPID #### [facility] [address] [place] [address] Dr. Jt Waite Anion gap [Moles/Vol] 13.1 mmol/L Normal [facility] Comment on above: Performed By: #### C MP, LIPID #### [facility] [address] [place] [address] Dr. Jt Waite AST [Catalytic activity/Vol] 31 U/L Normal 15-37 [facility] Comment on above: Performed By: #### C MP, LIPID #### [facility] [address] [place] [address] Dr. Jt Waite Bilirubin [Mass/Vol] 1.0 mg/dL Normal 0.2-1.0 [facility] Comment on above: Performed By: #### C MP, LIPID #### [facility] [address] [place] [address] Dr. Jt Waite Calcium [Mass/Vol] 9.1 mg/dL Normal 8.5-10.1 [facility] Comment on above: Performed By: #### C MP, LIPID #### [facility] [address] [place] [address] Dr. Jt Waite Chloride [Moles/Vol] 105 mmol/L Normal 98-107 [facility] Comment on above: Performed By: #### C MP, LIPID #### [facility] [address] [place] [address] Dr. Jt Waite CO2 [Moles/Vol] 27.4 mmol/L Normal 21.0-32.0 [facility] Comment on above: Performed By: #### C MP, LIPID #### [facility] [address] [address] [address] Jt Waite Creatinine [Mass/Vol] 1.03 mg/dL Critically high 0.55-1.02 [facility] Comment on above: Performed By: #### C MP, LIPID #### [facility] [address] [address] [address] Jt Waite EGFR-AF BAHAMIAN >60 Normal >=60 [facility] Comment on above: Performed By: #### C MP, LIPID #### [facility] [address] [place] [address] Dr. Jt Waite EGFR-NON AF BAHAMIAN 53 mL/min/1.73m2 Critically low >=60 [facility] Comment on above: Performed By: #### C MP, LIPID #### [facility] [address] [place] [address] Dr. Jt Waite Globulin (S) [Mass/Vol] 3.7 g/dL Normal [facility] Comment on above: Performed By: #### C MP, LIPID #### [facility] [address] [place] [address] Dr. Jt Waite Glucose [Mass/Vol] 100 mg/dL Normal 74-106 [facility] Comment on above: Performed By: #### C MP, LIPID #### [facility] [address] [place] [address] Dr. Jt Waite Potassium [Moles/Vol] 3.5 mmol/L Normal 3.5-5.1 [facility] Comment on above: Performed By: #### C MP, LIPID #### [facility] [address] [place] [address] Dr. Jt Waite Protein [Mass/Vol] 7.1 g/dL Normal 6.4-8.2 [facility] Comment on above: Performed By: #### C MP, LIPID #### [facility] [address] [place] [address] Dr. Jt Waite Sodium [Moles/Vol] 142 mmol/L Normal 136-145 [facility] Comment on above: Performed By: #### C MP, LIPID #### [facility] [address] [place] [address] Dr. Jt Waite Urea nitrogen [Mass/Vol] 23.0 mg/dL Critically high 7.0-18.0 [facility] Comment on above: Performed By: #### C MP, LIPID #### [facility] [address] [place] [address] Dr. Jt Waite Urea nitrogen/Creatinin e [Mass ratio] 22.3 mg/mg Normal [facility] Comment on above: Performed By: #### C MP, LIPID #### [facility] [address] [place] [address] Dr. Jt Waite D-DIMERon 03-15-2022 D-DIMER 0.32 mg/L FEU Normal <=0.59 [facility] Comment on above: Performed By: #### D DIM #### [facility] [address] [place] [address] Dr. Jt Waite D-DIMER COMMENTS SEE BELOW Normal [facility] Comment on above: Result Comment: Incr [...] hospitalization. Performed By: #### D DIM #### [facility] [address] [place] [address] Dr. Jt Waite ECHOCARDIO M/2D COMPLETEon 0 03-12-2022 ECHOCARDIO M/2D COMPLETE Patient: MISA SANTOS Exam Date: 03/12/2022 : 1955 Gender:F Ordering : HOLLY VALDOVINOS Admission #: [id number] Family : Order #: [id number] CLICK HERE TO VIEW EXAM ECHOCARDIOGRAM REPORT [...] Area(A4C): 25.20 cm2 Left Atrium Systolic Volume(A2C): 40856 mm3 Left Atrium Systolic Volume(A4C): 63874 mm3 Mitral Valve MV E to A [...] Perdue M.D. on 03/12/2022 at 19:30 Normal [facility] GLYCOHEMOGLOBIN A1Con 2020 ADA RECOMMENDATION ADA THERAPEUTIC TARG ET 6.0 - 7.0 ACTION SUGGESTED > 7.0 Normal [facility] Comment on above: Performed By: #### A 1C #### [facility] [address] [place] [address] Dr. Jt Waite Glucose [Mass/Vol] 140 mg/dL Normal [facility] Comment on above: Performed By: #### A 1C #### [facility] [address] [place] [address] Dr. Jt Waite HbA1c (Bld) [Mass fraction] 6.5 % Critically high <=6.0 [facility] Comment on above: Performed By: #### A 1C #### [facility] [address] [place] [address] Dr. Jt Waite Vital Signs Date Time Vital Sign Value Performing Clinician Facility 03-15-2024 09:57-0400 Body temperature 97.52 [degF] Mhd Eloisa [facility] 03-15-2024 09:57-0400 Diastolic blood pressure 82 mm[Hg] Mhd Al-Marrawi [facility] 03-15-2024 09:57-0400 Heart rate 64 /min Mhd Al-Marrawi [facility] 03-15-2024 09:57-0400 Mean blood pressure 94 mm[Hg] Mhd Al-Marrawi [facility] 03-15-2024 09:57-0400 Respiratory rate 16 /min Mhd Al-Marrawi [facility] 03-15-2024 09:57-0400 SaO2% (BldA) [Mass fraction] 93 % Mhd Al-Marrawi [facility] 03-15-2024 09:57-0400 Systolic blood pressure 118 mm[Hg] d Al-Marrawi [facility] 03-02-2024 12:19-0400 Blood Pressure Location Cabrera Sarmini [facility] 03-02-2024 12:19-0400 Diastolic blood pressure 84 mm[Hg] Cabrera Sarmini [facility] 03-02-2024 12:19-0400 Heart rate 78 /min Cabrera Sarmini [facility] 03-02-2024 12:19-0400 Respiratory rate 18 /min Cabrera Sarmini [facility] 03-02-2024 12:19-0400 Systolic blood pressure 120 mm[Hg] Cabrera Sarmini [facility] 02-06-2024 11:25-0400 Blood Pressure Location Cabrera Sarmini [facility] 02-06-2024 11:25-0400 Diastolic blood pressure 72 mm[Hg] Cabrera Sarmini [facility] 02-06-2024 11:25-0400 Heart rate 54 /min Cabrera Sarmini [facility] 02-06-2024 11:25-0400 Mean blood pressure 90 mm[Hg] Cabrera Sarmini [facility] 02-06-2024 11:25-0400 Respiratory rate 14 /min Cabrera Sarmini [facility] 02-06-2024 11:25-0400 SaO2% (BldA) [Mass fraction] 96 % Cabrera Sarmini [facility] 02-06-2024 11:25-0400 Systolic blood pressure 125 mm[Hg] Cabrera Sarmini [facility] 02-06-2024 11:15-0400 Blood Pressure Location Cabrera Sarmini [facility] 02-06-2024 11:15-0400 Diastolic blood pressure 68 mm[Hg] Cabrera Sarmini [facility] 02-06-2024 11:15-0400 Heart rate 58 /min Cabrera Sarmini [facility] 02-06-2024 11:15-0400 Mean blood pressure 84 mm[Hg] Cabrera Sarmini [facility] 02-06-2024 11:15-0400 Respiratory rate 27 /min Cabrera Sarmini [facility] 02-06-2024 11:15-0400 SaO2% (BldA) [Mass fraction] 96 % Cabrera Sarmini [facility] 02-06-2024 11:15-0400 Systolic blood pressure 115 mm[Hg] Cabrera Sarmini [facility] 02-06-2024 11:10-0400 Blood Pressure Location Cabrera Sarmini [facility] 02-06-2024 11:10-0400 Diastolic blood pressure 72 mm[Hg] Cabrera Sarmini [facility] 02-06-2024 11:10-0400 Heart rate 51 /min Cabrera Sarmini [facility] 02-06-2024 11:10-0400 Mean blood pressure 85 mm[Hg] Cabrera Sarmini [facility] 02-06-2024 11:10-0400 Respiratory rate 18 /min Cabrera Sarmini [facility] 02-06-2024 11:10-0400 SaO2% (BldA) [Mass fraction] 94 % Cabrera Sarmini [facility] 02-06-2024 11:10-0400 Systolic blood pressure 112 mm[Hg] Cabrera Sarmini [facility] 02-06-2024 11:03-0400 Body temperature 97.34 [degF] Cabrera Sarmini [facility] 02-06-2024 10:55-0400 Respiratory rate 17 /min Cabrera Sarmini [facility] 02-06-2024 10:50-0400 Respiratory rate 18 /min Cabrera Sarmini [facility] 02-06-2024 09:23-0400 Body temperature 97.52 [degF] Cabrera Marcelmini [facility] 12-15-2023 10:11-0500 Body temperature 97.7 [degF] Mhd Al-Marrawi [facility] 12-15-2023 10:11-0500 Diastolic blood pressure 55 mm[Hg] Mhd Al-Marrawi [facility] 12-15-2023 10:11-0500 Heart rate 53 /min Mhd Al-Marrawi [facility] 12-15-2023 10:11-0500 Mean blood pressure 71 mm[Hg] d Al-Marrawi [facility] 12-15-2023 10:11-0500 Respiratory rate 20 /min Mhd Al-Marrawi [facility] 12-15-2023 10:11-0500 SaO2% (BldA) [Mass fraction] 96 % Mhd Al-Marrawi [facility] 12-15-2023 10:11-0500 Systolic blood pressure 104 mm[Hg] d Al-Marrawi [facility] 10-01-2023 12:37-0500 Blood Pressure Location Ashlie Mead [facility] 10-01-2023 12:37-0500 Body temperature 96.8 [degF] Ashlie Mead [facility] 10-01-2023 12:37-0500 Diastolic blood pressure 79 mm[Hg] Ashlie Mead [facility] 10-01-2023 12:37-0500 Heart rate 55 /min Ashlie Mead [facility] 10-01-2023 12:37-0500 Systolic blood pressure 119 mm[Hg] Ashlie Valdezmetz [facility] 07-31-2023 09:49-0400 Blood Pressure Location Ashlietrace ValdezBoston [facility] 07-31-2023 09:49-0400 Body temperature 96.8 [degF] Ashlie Valdezmetz [facility] 07-31-2023 09:49-0400 Diastolic blood pressure 67 mm[Hg] Ashlie Valdezmetz [facility] 07-31-2023 09:49-0400 Heart rate 59 /min Ashlie Valdezmetz [facility] 07-31-2023 09:49-0400 Systolic blood pressure 123 mm[Hg] Ashlie Valdezmetz [facility] 06-24-2023 10:12-0400 Heart rate 48 /min Mhd Al-Marrawi [facility] 06-24-2023 10:12-0400 SaO2% (BldA) [Mass fraction] 96 % Mhd Al-Marrawi [facility] 06-24-2023 10:12-0400 Blood Pressure Location Mhd Al-Marrawi [facility] 06-24-2023 10:12-0400 Diastolic blood pressure 61 mm[Hg] Mhd Al-Marrawi [facility] 06-24-2023 10:12-0400 Mean blood pressure 79 mm[Hg] Mhd Al-Marrawi [facility] 06-24-2023 10:12-0400 Systolic blood pressure 115 mm[Hg] Mhd Al-Marrawi [facility] 06-24-2023 10:11-0400 Body temperature 97.88 [degF] Mhd Al-Marrawi [facility] 06-24-2023 10:11-0400 Respiratory rate 17 /min Mhd Al-Marrawi [facility] 06-24-2023 09:04-0400 Heart rate 58 /min Mhd Al-Marrawi [facility] 06-24-2023 09:04-0400 SaO2% (BldA) [Mass fraction] 96 % Mhd Al-Marrawi [facility] 06-24-2023 09:04-0400 Respiratory rate 18 /min Mhd Al-Marrawi [facility] 06-24-2023 09:04-0400 Blood Pressure Location Mhd Al-Marrawi [facility] 06-24-2023 09:04-0400 Diastolic blood pressure 76 mm[Hg] Mhd Al-Marrawi [facility] 06-24-2023 09:04-0400 Mean blood pressure 94 mm[Hg] Mhd Al-Marrawi [facility] 06-24-2023 09:04-0400 Systolic blood pressure 131 mm[Hg] Mhd Al-Marrawi [facility] 06-17-2023 10:00-0400 Blood Pressure Location Mhd Al-Marrawi [facility] 06-17-2023 10:00-0400 Body temperature 98.42 [degF] Mhd Al-Marrawi [facility] 06-17-2023 10:00-0400 Diastolic blood pressure 74 mm[Hg] Mhd Al-Marrawi [facility] 06-17-2023 10:00-0400 Heart rate 49 /min Mhd Al-Marrawi [facility] 06-17-2023 10:00-0400 Mean blood pressure 92 mm[Hg] Mhd Al-Marrawi [facility] 06-17-2023 10:00-0400 Respiratory rate 18 /min Mhd Al-Marrawi [facility] 06-17-2023 10:00-0400 SaO2% (BldA) [Mass fraction] 95 % Mhd Al-Marrawi [facility] 06-17-2023 10:00-0400 Systolic blood pressure 128 mm[Hg] Mhd Al-Marrawi [facility] 06-04-2023 13:02-0400 Blood Pressure Location Cabrera Sarmini [facility] 06-04-2023 13:02-0400 Diastolic blood pressure 70 mm[Hg] Cabrera Sarmini [facility] 06-04-2023 13:02-0400 Heart rate 76 /min Cabrera Sarmini [facility] 06-04-2023 13:02-0400 Respiratory rate 16 /min Cabrera Sarmini [facility] 06-04-2023 13:02-0400 Systolic blood pressure 122 mm[Hg] Cabrera Sarmini [facility] 05-13-2023 10:00-0400 Blood Pressure Location Mhd Al-Marrawi [facility] 05-13-2023 10:00-0400 Body temperature 97.52 [degF] [facility] Al-Marrawi [facility] 05-13-2023 10:00-0400 Diastolic blood pressure 77 mm[Hg] d Al-Marrawi [facility] 05-13-2023 10:00-0400 Heart rate 56 /min [facility]-Marrawi [facility] 05-13-2023 10:00-0400 Mean blood pressure 95 mm[Hg] [facility] 05-13-2023 10:00-0400 SaO2% (BldA) [Mass fraction] 96 % [facility]Marrawi [facility] 05-13-2023 10:00-0400 Systolic blood pressure 130 mm[Hg] [facility] 04-29-2023 10:00-0400 Blood Pressure Location [facility] 04-29-2023 10:00-0400 Body temperature 98.06 [degF] [facility] 04-29-2023 10:00-0400 Diastolic blood pressure 72 mm[Hg] [facility] 04-29-2023 10:00-0400 Heart rate 53 /min [facility] 04-29-2023 10:00-0400 Mean blood pressure 89 mm[Hg] [facility] 04-29-2023 10:00-0400 Respiratory rate 18 /min [facility] 04-29-2023 10:00-0400 SaO2% (BldA) [Mass fraction] 96 % [facility] 04-29-2023 10:00-0400 Systolic blood pressure 122 mm[Hg] [facility] Encounters Encounter Date Encounter Type Care Provider Facility Start: 08-31-2024 ambulatory Willian Barrios Facility :[facility] Start: 06-15-2024 ambulatory Willian Barrios Facility :[facility] Start: 06-09-2024 ambulatory Willian Barrios Facility :CD:[id number] Start: 06-07-2024 End: 06-07-2024 ambulatory Willian Barrios Facility:[facility] Start: 05-31-2024 End: 06-07-2024 ambulatory Willian Barrios Facility:CD:[id number] Start: 05-21-2024 End: 05-21-2024 ambulatory HUMPHREY Victoria NATHANAEL Facility:[facility] Start: 04-12-2024 End: 04-12-2024 ambulatory Willian Barrios Facility:[facility] Start: 04-12-2024 End: 04-12-2024 Patient encounter procedure Willian Barrios [facility] Start: 03-29-2024 End: 03-29-2024 ambulatory Willian Barrios Facility:[facility] Start: 03-15-2024 End: 03-15-2024 ambulatory Mhd Yaser Al-Marrawi Facility:[facility] Start: 03-15-2024 End: 03-15-2024 Patient encounter procedure Mhd Yaser Al-Marrawi [facility] Start: 03-09-2024 End: 03-09-2024 ambulatory Mhd Yaser Al-Marrawi Facility:[facility] Start: 03-09-2024 End: 03-09-2024 Patient encounter procedure Mhd Yaser Al-Marrawi [facility] Start: 03-02-2024 End: 03-02-2024 ambulatory Cabrera Talal Sarmini [facility] Start: 03-02-2024 End: 03-02-2024 Patient encounter procedure Cabrera Talal Sarmini [facility] Start: 02-06-2024 End: 02-06-2024 ambulatory Cabrera Tallatoya Rodmini Facility:[facility] Start: 02-06-2024 End: 02-06-2024 Patient encounter procedure Deborah Tayal Marcelmini [facility] Start: 01-02-2024 End: 01-02-2024 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 Facility:[facility] Start: 12-15-2023 End: 12-15-2023 ambulatory Mhd Yaser Al-Marrawi Facility:[facility] Start: 12-15-2023 End: 12-15-2023 Patient encounter procedure Mhd Yaser Al-Marrawi [facility] Start: 12-15-2023 End: 12-15-2023 ambulatory Mhd Yaser Al-Marrawi Facility:[facility] Start: 12-15-2023 End: 12-15-2023 Patient encounter procedure Mhd Yaser Al-Marrawi [facility] Start: 10-01-2023 End: 10-01-2023 ambulatory Ashlie Mead Facility:[facility] Start: 10-01-2023 End: 10-01-2023 Patient encounter procedure Ashlie Mead [facility] Start: 09-29-2023 End: 09-29-2023 ambulatory Willian Barrios Facility:[facility] Start: 09-24-2023 End: 09-24-2023 ambulatory Willian Barrios Facility:[facility] Start: 09-17-2023 End: 09-17-2023 ambulatory Willian Barrios Facility:[facility] Start: 09-16-2023 End: 09-16-2023 ambulatory Willian Barrios Facility:[facility] Start: 09-15-2023 End: 09-15-2023 ambulatory Mhd Yaser Al-Marrawi Facility:[facility] Start: 09-15-2023 End: 09-15-2023 Patient encounter procedure Mhd Yaser Al-Marrawi [facility] Start: 08-29-2023 End: 08-29-2023 ambulatory Willian Barrios Facility:[facility] Start: 07-31-2023 End: 07-31-2023 ambulatory Ashlie Mead Facility:[facility] Start: 07-31-2023 End: 07-31-2023 Patient encounter procedure Ashlie Mead [facility] Start: 07-30-2023 End: 07-30-2023 ambulatory [facility] Start: 07-28-2023 End: 08-25-2023 ambulatory Willian Barrios Facility:CD:[id number] Start: 07-24-2023 End: 07-25-2023 ambulatory Lucas Bates Facility:[facility] Start: 07-22-2023 End: 07-22-2023 ambulatory Mhd Yaser Al-Marrawi Facility:[facility] Start: 06-30-2023 End: 06-30-2023 Lab Drop off Willian Barrios [facility] Start: 06-30-2023 End: 06-30-2023 ambulatory Willian Barrios Facility:[facility] Start: 06-24-2023 End: 06-24-2023 ambulatory Mhd Yaser Al-Marrawi Facility:[facility] Start: 06-24-2023 End: 06-24-2023 Patient encounter procedure Mhd Yaser Al-Marrawi [facility] Start: 06-17-2023 End: 06-17-2023 ambulatory Mhd Yaser Al-Marrawi Facility:[facility] Start: 06-17-2023 End: 06-17-2023 Patient encounter procedure Mhd Yaser Al-Marrawi [facility] Start: 06-12-2023 End: 06-12-2023 ambulatory Mhd Yaser Al-Marrawi Facility:[facility] Start: 06-12-2023 End: 06-12-2023 Patient encounter procedure Mhd Yaser Al-Marrawi [facility] Start: 06-04-2023 End: 06-04-2023 ambulatory Cabrera Talal Sarmini Facility:[facility] Start: 06-04-2023 End: 06-04-2023 Patient encounter procedure Cabrera Talal Sarmini [facility] Start: 05-29-2023 End: 05-29-2023 ambulatory [facility] Start: 05-27-2023 End: 05-27-2023 ambulatory Mhd Yaser Al-Marrawi Facility:[facility] Start: 05-27-2023 End: 05-27-2023 Patient encounter procedure Mhd Yaser Al-Marrawi [facility] Start: 05-13-2023 End: 05-13-2023 ambulatory Mhd Yaser Al-Marrawi Facility:[facility] Start: 05-13-2023 End: 05-13-2023 Patient encounter procedure Mhd Yaser Al-Marrawi [facility] Start: 05-13-2023 End: 05-13-2023 ambulatory Mhd Yaser Al-Marrawi Facility:[facility] Start: 05-13-2023 End: 05-13-2023 Patient encounter procedure Mhd Rositaser Al-Marrawi [facility] Start: 04-29-2023 End: 04-29-2023 ambulatory Mhd Yaser Al-Marrawi Facility:[facility] Start: 04-29-2023 End: 04-29-2023 ambulatory Mhd Rositaser Al-Learadawson Facility:[facility] Start: 04-29-2023 End: 04-29-2023 Patient encounter procedure Ortiz Alexander [facility] Start: 03-17-2023 End: 03-17-2023 Lab Drop off Willian Barrios [facility] Start: 09-18-2022 End: 09-19-2022 ambulatory [...] End: 10-27-2018 Patient encounter procedure DEFAULT PHYSICIAN Facility:[facility] Procedures Date Procedure Procedure Detail Performing Clinician Start: 02-06-2024 Colonoscopy Deborah alicia Start: 07-24-2023 Colonoscopy Ashlie alvarado Start: 06-24-2023 Bone marrow sampling Lenny d Latoya-Lars Comment on above: ct section Willian Barrios Comment on above: X1 Decompression of med jewels nerve Willian Barrios Total abdominal hysterectomy with bilateral salpingo-oophorectomy Williantarik Barrios Plan of Treatment Date Care Activity Detail Author Start: 08-31-2024 ambulatory Facility:[facility] Immunizations Immunization Date Immunization Notes Care Provider Fa ramirez 12-19-2023 SARS-CoV-2 mRNA (tozinameran 5y-11y) vaccine Cabrerabharat Rodjael [facility] Comment on above: Result Comment: pfiz er 07-28-2023 influenza virus vaccine, unspecified formulation Ashlie Boston [facility] 07-28-2023 SARS-CoV-2 mRNA (tozinameran 5y-11y) vaccine Mariah Amin [facility] Comment on above: Result Comment: Covi d 19 pfizer 07-24-2022 influenza virus vaccine, unspecified formulation Willian Barrios [facility] 07-24-2022 SARS-CoV-2 (COVID-19 ) [id number] Willian Barrios [facility] 01-15-2022 SARS-CoV-2 mRNA (zgqqmfupcew-uroo-owish se) vaccine Willian Barrios [facility] 07-24-2021 influenza virus vaccine, unspecified formulation Willian Barrios [facility] 07-10-2021 SARS-CoV-2 (COVID-19 ) mRNA BNT-162b2 akx Willian Barrios [facility] 01-02-2021 SARS-CoV-2 (COVID-19 ) mRNA BNT-162b2 vax Willian Barrios [facility] 12-11-2020 SARS-CoV-2 (COVID-19 ) mRNA BNT-162b2 vax Willian Barrios [facility] 06-21-2020 influenza virus vaccine, unspecified formulation Willian Barrios [facility] 06-21-2020 pneumococcal polysaccharide vaccine, 23 valent Willian Barrios [facility] 07-13-2019 influenza virus vaccine, unspecified formulation Willian Barrios [facility] 07-10-2018 influenza virus vaccine, unspecified formulation Willian Barrios [facility] 11-20-2016 pneumococcal polysaccharide vaccine, 23 valent Willian Barrios [facility] NEGATED: Highlighted row has not occurred!06-30-2023 influenza virus vaccine, unspecified formulation Willian Barrios [facility] Payers Date Payer Category Payer Private Health Insurance [facility] [id number] 1961 Medicare [id number] 1961 Unknown [id number] 1955 Unknown [id number] 2.16.8 40.1.179802.3.579.2.647 1953 Unknown [id number] 2.16.84 0.1.164958.3.579.2.593 1953 Unknown [id number] 2.16.84 0.1.064662.3.579.2.593 1953 Unknown [id number] 2.16.84 0.1.034689.3.579.2.593 1953 Unknown [id number] 2.16.84 0.1.429286.3.579.2.593 1953 Unknown [id number] 2.16.84 0.1.689722.3.579.2.593 1953 Unknown [id number] 2.16.84 0.1.359132.3.579.2.593 1953 Unknown [id number] 2.16.84 0.1.150264.3.579.2.593 1953 Unknown [id number] 2.16.8 40.1.127122.3.579.2.72 1953 Unknown [id number] 2.16.8 40.1.155001.3.579.2.72 1953 Unknown [id number] 2.16.8 40.1.450238.3.579.2.72 1953 Unknown [id number] 2.16.8 40.1.053631.3.579.2.727 1953 Unknown [id number] 2.16.8 40.1.268270.3.579.2.72 1953 Unknown [id number] 2.16.8 40.1.589969.3.579.2.727 1953 Unknown [id number] 2.16.8 40.1.849946.3.579.2.72 1953 Unknown [id number] 2.16.8 40.1.769223.3.579.2.727 1953 Unknown [id number] 2.16.8 40.1.278905.3.579.2.727 1953 Unknown [id number] 2.16.8 40.1.669590.3.579.2.727 1953 Unknown [id number] 2.16.8 40.1.363565.3.579.2.72 1953 Unknown [id number] 2.16.8 40.1.912484.3.579.2.727 1953 Unknown [id number] 2.16.8 40.1.348287.3.579.2727 1953 Unknown [id number] 2.16.8 40.1.972190.3.579.2.72 1953 Unknown [id number] 2.16.8 40.1.638529.3.579.2.727 1953 Unknown [id number] 2.16.8 40.1.486222.3.579.2.72 1953 Unknown [id number] 2.16.8 40.1.080478.3.579.2.72 1953 Unknown [id number] 2.16.8 40.1.454886.3.579.2. 1953 Unknown [id number] 2.16.8 40.1.012714.3.579.2. 1953 Unknown [id number] 2.16.8 40.1.137152.3.579.2. 1953 Unknown [id number] 2.16.8 40.1.532482.3.579.2. 1953 Unknown [id number] 2.16.8 40.1.414570.3.579.2. 1953 Unknown [id number] 2.16.8 40.1.766704.3.579.2.7 1953 Unknown [id number] 2.16.8 40.1.956389.3.579.2.72 1953 Unknown [id number] 2.16.8 40.1.386154.3.579.2.72 1953 Unknown [id number] 2.16.8 40.1.258835.3.579.2. 1953 Unknown [id number] 2.16.8 40.1.261496.3.579.2.727 1953 Unknown [id number] 2.16.8 40.1.258845.3.579.2.72 1953 Unknown [id number] 2.16.8 40.1.801620.3.579.2.727 1953 Unknown [id number] 2.16.8 40.1.041944.3.579.2.727 1953 Unknown [id number] 2.16.8 40.1.754543.3.579.2.727 1953 Unknown [id number] 2.16.8 40.1.585324.3.579.2.727 1953 Unknown [id number] 2.16.8 40.1.797001.3.579.2.72 1953 Unknown [id number] 2.16.8 40.1.385359.3.579.2.727 1953 Unknown [id number] 2.16.8 40.1.698755.3.579.2.72 1953 Unknown [id number] 2.16.8 40.1.542280.3.579.2.727 1953 Unknown [id number] 2.16.8 40.1.758837.3.579.2.727 Unknown Social History Date Type Detail Facility Start: 03-17-2023 End: 03-29-2024 Tobacco smoking status Never smoked tobacco (finding) [facility] Comment on above: denies Tobacco smoking status Never [facility] Comment on above: denies Sex Assigned At Female [facility] Medical Equipment Procedure Code Equipment Code Equipment Origin al Text Equipment Identifier Dates [facility] DME Prescription, See Instructions, 100 strip(s), 0, one touch ultra test strips Test sugars once a day Dx E11.9, [facility] #[id number], Supply Start: 02-06-2023 [facility] DME Prescription, See Instructions, 100 strip(s), 0, one touch ultra test strips Test sugars once a day Dx E11.9, [id number], Supply Start: 02-06-2023 [facility] DME Prescription, See Instructions, 100 strip(s), 0, one touch ultra test strips Test sugars once a day Dx E11.9, [id number], Supply, 150, cm, 04/29/23 10:06:00 EDT, Height/Length Dosing, 112.3, kg, 04/29/23 10:06:00 EDT, Weight Dosing Start: 05-06-2023 [facility] DME Prescription, See Instructions, 100 strip(s), 0, one touch ultra test strips Test sugars once a day Dx E11.9, [id number], Supply, 150, cm, 04/29/23 10:06:00 EDT, Height/Length Dosing, 112.3, kg, 04/29/23 10:06:00 EDT, Weight Dosing Start: 05-06-2023 [facility] DME Prescription, See Instructions, 100 strip(s), 0, one touch ultra test strips Test sugars once a day Dx E11.9, [facility]/pharmacy #[id number], Supply, 150, cm, 04/29/23 10:06:00 EDT, Height/Length Dosing, 112.3, kg, 04/29/23 10:06:00 EDT, Weight Dosing Start: 05-06-2023 [facility] DME Prescription, See Instructions, 100 strip(s), 0, one touch ultra test strips Test sugars once a day Dx E11.9, [id number], Supply, 150, cm, 04/29/23 10:06:00 EDT, Height/Length Dosing, 112.3, kg, 04/29/23 10:06:00 EDT, Weight Dosing Start: 05-06-2023 [facility] DME Prescription, See Instructions, 100 strip(s), 0, one touch ultra test strips Test sugars once a day Dx E11.9, [facility]/pharm[facility] #[id number], Supply, 150, cm, 04/29/23 10:06:00 EDT, Height/Length Dosing, 112.3, kg, 04/29/23 10:06:00 EDT, Weight Dosing Start: 05-06-2023 [facility] DME Prescription, See Instructions, 100 strip(s), 0, one touch ultra test strips Test sugars once a day Dx E11.9, [id number], Supply, 150, cm, 04/29/23 10:06:00 EDT, Height/Length Dosing, 112.3, kg, 04/29/23 10:06:00 EDT, Weight Dosing Start: 05-06-2023 [facility] DME Prescription, See Instructions, 100 strip(s), 0, one touch ultra test strips Test sugars once a day Dx E11.9, [id number], Supply, 150, cm, 04/29/23 10:06:00 EDT, Height/Length Dosing, 112.3, kg, 04/29/23 10:06:00 EDT, Weight Dosing Start: 05-06-2023 [facility] DME Prescription, See Instructions, 100 strip(s), 0, one touch ultra test strips Test sugars once a day Dx E11.9, [id number], Supply, 150, cm, 04/29/23 10:06:00 EDT, Height/Length Dosing, 112.3, kg, 04/29/23 10:06:00 EDT, Weight Dosing Start: 05-06-2023 Unknown Unknown 07/24/23 Non Biological Unknown FDA Start: 07-24-2023 [facility] DME Prescription, See Instructions, 100 [...] 07/31/23 9:52:00 EDT, Weight Dosing Start: 08-21-2023 [facility] DME Prescription, See Instructions, 100 [...] 07/31/23 9:52:00 EDT, Weight Dosing Start: 08-21-2023 [facility] DME Prescription, See Instructions, 100 [...] 07/31/23 9:52:00 EDT, Weight Dosing Start: 08-21-2023 [facility] DME Prescription, See Instructions, 100 [...] 07/31/23 9:52:00 EDT, Weight Dosing Start: 08-21-2023 [facility] DME Prescription, See Instructions, 100 [...] 07/31/23 9:52:00 EDT, Weight Dosing Start: 08-21-2023 [facility] DME Prescription, See Instructions, 100 [...] 02/06/24 9:13:00 EDT, Weight Dosing Start: 03-01-2024 [facility] DME Prescription, See Instructions, 100 [...] 02/06/24 9:13:00 EDT, Weight Dosing Start: 03-01-2024 [facility] DME Prescription, See Instructions, 100 [...] 02/06/24 9:13:00 EDT, Weight Dosing Start: 03-01-2024 [facility] DME Prescription, See Instructions, 100 [...] 02/06/24 9:13:00 EDT, Weight Dosing Start: 03-01-2024 [facility] DME Prescription, See Instructions, 100 strip(s), 1, one touch test strips. Use to test blood sugars once a day Dx E11.9, [id number], Supply, 150.8, cm, 07/31/23 9:52:00 EDT, Height/Length Dosing, 112.7, kg, 07/31/23 9:52:00 EDT, Weight Dosing Start: 08-21-2023 Functional Status Date Assessment Result Facility 03-02-2024 Functional Status N/A [facility] 02-06-2024 Functional Status N/A [facility] 10-01-2023 Functional Status N/A [facility] 07-31-2023 Functional Status N/A [facility] 06-24-2023 Functional Status N/A [facility] 06-04-2023 Functional Status N/A [facility] Clinical Notes 04-18-2023 to 05-21-2024 Note Date [...] these instructions at home: Medicines ? Take lokm-ufa-nukmwge and prescription medicines only as told by [...] and water are not available, use hand mortgage loan officer. ? Avoid contact with people who have [...] away. Call yo (more content not included)... [facility] 03-15-2024 Hospital Discharg e instructions Patient Education [...] iron. Foods high in vitamin C include: ?[place] fruits, such as checo, oranges, and grapefruits. [...] iron supplement is right for you. Take ikjk-grp-idspraa and prescription medicines only as told by your health care provider. Keep all follow-up visits. Where to find more information Learn more about preventing iron deficiency from: National Heart, Lung, and Blood [place]: www.nhlbi.nih.gov [place] [employer]: www.hematology.org Contact a health [...] provider. Document Revised: 11/06/2022 Document Reviewed: 11/06/2022 [employer] Patient Education 2022 [employer]. 03/15/2024 10:23:50 Iron-Rich Diet Iron-Rich Diet Iron [...] Meats and other proteins Beef liver. Beef. [place]. Chicken. Oysters. Shrimp. Tuna. Sardines. Chickpeas. Nuts. [...] Black tea. Red wine. Sweets and desserts [place]. Chocolate. Ice cream. Seasonings and condiments Basil. [...] provider. Document Revised: 09/10/2021 Document Reviewed: 09/10/2021 [employer] Patient Education 2022 [employer]. Follow Up Care 12/15/2023 10:48:25 With:Eloisa PATTEN, Mariah Davison, MED, ONC Address: When: Unknown Comments:Continue observation only for the low plt and low WBC for now. Call if bleeding or infections, fevers.Continue ferrous sulfate eoqb-pqc-ahrkpzn 325 mg once daily.Return in 4 months with labs prior including CBC with differential CMP, B12, folate and iron studies. [facility] 02-09-2024 Note [id number]#[id number] [facility] 02-06-2024 Evaluation + Plan note Extrac enid from: Title:ANES Post-operative Note - General Author: Jorge Luis Fang Jr., DO Date:02/06/24 Plan Transfer/Discharge: Transfer/Discharge Discharge when meets criteria ( From PACU to Ambulatory Surgery Unit, and To home ). Extracted from: Title:ANES Pre-operative Note - Endo Author:Jorge Luis Rodas Jr., DO Date:02/06/24 Plan [place] [employer] Anesthesiologists (ASA) physical status classification: Class III. Anesthetic Preoperative Plan: Anesthesia General, and -TIVA. Future Appointments Appointment Date:03/15/2024 10:00:00 AM Scheduled Provider:Eloisa PATTEN, Mariah Davison [facility] App[facility] Type:ONC Office Visit 30 (FT) Appointment Date:03/29/2024 10:30:00 AM Scheduled Provider:Willian Barrios MD Location:[facility] Appointment Type: Open Appointment Date:08/31/2024 11:00:00 AM Scheduled Provider: Location:[facility] Appointment Type: Medicare Wellness Subsequent Future Scheduled Tests Laboratory* CBC w/ Auto Diff 03/08/24 * CBC w/ Auto Diff 10/01/23 * CBC w/ Auto Diff 07/31/23 * Comprehensive Metabolic Panel 03/08/24 * Ferritin 03/08/24 * Iron Level 03/08/24 * Iron Percent Saturation 03/08/24 * Transferrin 03/08/24 Radiology* MA Mamm Screen w/CAD if perf and 3D Michael 03/17/23 [facility]04-26-2024 Hospital Discharge instructions Patient Education 02/06/2024 11:09:28 Colonoscopy, Care After Surgery Salam (CUSTOM) Colonoscopy Care After Surgery Please read the instructions outlined below and refer to this sheet in the next few weeks. These discharge instructions provide you with general information on [facility] Your doctor may also give you [...] hard liquor (44 mL). General instructions Take rbir-ase-ixossua and prescription medicines only as told by [...] provider. Document Revised: 01/17/2021 Document Reviewed: 01/17/2021 [employer] Patient Education 2022 [employer]. Follow Up Care 10/01/2023 13:21:09 With:Deborah Rashid Address: [address] [place] [phone]- [phone] Business (1) When:1 to 2 weeks Comments:Call for any problems. [facility]02-08-2024 Hospital Discharge instructions Follow Up Care 11/20/2023 15:36:43 With:Eloisa PATTEN, Mariah Davison, MED, ONC Address: When: Unknown Comments:Labs today including CBC with differential, CMP, iron study B12 folate and copper level.Start ferrous sulfate znby-vnb-svbdvtw 325 mg once daily.Return in 3 months with labs prior including CBC with differential CMP and iron studies. [facility]12-20-2023 Hospital Discharge instructions Patient Education [...] hard liquor (44 mL). General instructions Take wkbx-rwq-rjvhwmp and prescription medicines only as told by [...] provider. Document Revised: 01/17/2021 Document Reviewed: 01/17/2021 [employer] Patient Education 2022 [employer]. Follow Up Care 07/31/2023 10:11:05 With:Ashlie Mead CNP Address: When:Within 4 Month(s) [facility] 10-19-2023 Hospital Discharge instructions Patient [...] spleen. Follow these instructions at home: Take kgsk-wkn-hdkyvod and prescription medicines only as told by [...] provider. Document Revised: 08/13/2022 Document Reviewed: 09/05/2020 [employer] Patient Education 2022 [employer]. Follow Up Care 07/25/2023 08:45:16 With:Ashlie Mead CNP Address: When:1 month [facility] 10-13-2023 Note [id number]#1.00TIFRani [facility]-2023 [facility]Result Comment: Electronically Signed By: Lucas Bates DO.br\Date and Time Signed: 07/25/23 08:33 [id number] [facility]Fire[facility] CampusComment on above: Result Comment: Electronically Signed By: Lucas Bates DO.br\Date and Time Signed: 07/24/23 13:28 [id number] Evaluation + Plan note Future Appointments Appointment Date:06/24/2023 09:00:00 AM Scheduled Provider: Location:.[facility] Appointment Type:CT Biopsy (FT) Appointment Date:06/24/2023 09:00:00 AM Scheduled Provider: Location:[facility] Appointment Type:Surgery FT Appointment Date:06/30/2023 11:20:00 AM Scheduled Provider:Willian [facility]rios MD [facility]: [facility] Appointment Date:07/10/2023 09:30:00 AM Scheduled Provider: Location:[facility] Appointment Type:Surgery FT Appointment Date:07/22/2023 09:30:00 AM Scheduled Provider: Location:.ONCOLOGY Appointment Type:ONC Office Visit 30 (FT) Appointment Date:09/16/2023 01:00:00 PM Scheduled Provider: Location:[facility] Appointment Type: Medicare Wellness Subsequent Appointment Date:09/16/2023 02:20:00 PM Scheduled Provider:Willian Barrios MD Location:[facility] Appointment Type: [facility] Scheduled Tests Laboratory* CBC w/ Auto Diff 07/22/23 Radiology* CT Bone Marrow Biopsy 06/24/23 * MA Mamm Screen w/CAD if perf and 3D Michael 03/17/23 [facility]08-17-2023 NoteCardiology Clinic Note Subjective Misa [...] 1 year (around 05/29/2024). 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 CBCD on return day with me. [facility]07-18-2023 Hospital Discharge instructions Follow Up Care 04/29/2023 10:41:22 With:Mariah Amin Address: [address] [address] [phone] Business (1) When: Unknown Comments:We will obtain [...] the peripheral blood flow cytometry are normal. [facility]07-07-2023 Hospital Discharge instructions Follow Up Care 04/18/2023 13:20:05 With:Mariah Amin Address: [address] [address]- [phone] Business (1) When: Unknown Comments:We will check CBC with differential CMP PNH flow, LDH, peripheral blood flow cytometry, B12 level, folate, iron studies, copper, ILANA, rheumatoid factor, and platelet antibodies.Return to office in 2 weeks for results. [facility] note Future Appointments Appointment Date:09/16/2023 01:00:00 PM Scheduled Provider: Location:[facility] Appointment Type: Medicare Wellness Subsequent Appointment Date:09/16/2023 02:20:00 PM Scheduled Provider:Willian Barrios MD Location:[facility] Appointment Type: Open Future Scheduled Tests Radiology* MA Mamm Screen w/CAD if perf and 3D Michael 03/17/23 [facility] note Future Appointments Appointment Date:05/13/2023 10:00:00 AM Scheduled Provider: Location:.ONCOLOGY Appointment Type:ONC Office Visit 30 (FT) Appointment Date:06/30/2023 11:20:00 AM Scheduled Provider:Willian Barrios MD Location:[facility] Appointment Type: Open Appointment Date:09/16/2023 01:00:00 PM Scheduled Provider: Location:[facility] Appointment Type: Medicare Wellness Subsequent Appointment Date:09/16/2023 02:20:00 PM Scheduled Provider:Willian Barrios MD Location:[facility] Appointment Type: Open Future Scheduled Tests Radiology* MA Mamm Screen w/CAD if perf and 3D Michael 03/17/23 [facility] note Future Appointments Appointment Date:06/17/2023 10:30:00 AM Scheduled Provider: [facility] App[facility] Type:ONC Office Visit 30 (FT) Appointment Date:06/30/2023 11:20:00 AM Scheduled Provider:Willian Barrios MD Location:[facility] Appointment Type: Open Appointment Date:09/16/2023 01:00:00 PM Scheduled Provider: Location:[facility] Appointment Type: Medicare Wellness Subsequent Appointment Date:09/16/2023 02:20:00 PM Scheduled Provider:Willian Barrios MD Location:[facility] Appointment Type: Open Future Scheduled Tests Laboratory* CBC w/ Auto Diff 05/27/23 * CBC w/ Auto Diff 06/10/23 Radiology* MA Mamm Screen w/CAD if perf and 3D Michael 03/17/23 [facility] note Future Appointments Appointment Date:06/17/2023 10:30:00 AM Scheduled Provider: [facility] Appointment Type:ONC Office Visit 30 (FT) Appointment Date:06/30/2023 11:20:00 AM Scheduled Provider:Willian Barrios MD Location:[facility] Appointment Type: Open Appointment Date:09/16/2023 01:00:00 PM Scheduled Provider: Location:[facility] Appointment Type: Medicare Wellness Subsequent Appointment Date:09/16/2023 02:20:00 PM Scheduled Provider:Wlilian Barrios MD Location:[facility] Appointment Type: Open Diagnostic Tests Pending * Comp panel: Leuk/Lym [id number] 05/13/23 Future Scheduled Tests Laboratory* CBC w/ Auto Diff 05/27/23 * CBC w/ Auto Diff 06/10/23 Radiology* MA Mamm Screen w/CAD if perf and 3D Michael 03/17/23 [facility] note Future Appointments Appointment Date:06/17/2023 10:30:00 AM Scheduled Provider: Location:.ONCOLOGY Appointment Type:ONC Office Visit 30 (FT) Appointment Date:06/30/2023 11:20:00 AM Scheduled Provider:Willian Barrios MD [facility]: Open Appointment Date:09/16/2023 01:00:00 PM Scheduled Provider: [facility] Appoint[facility] Type: Medicare Wellness Subsequent Appointment Date:09/16/2023 02:20:00 PM Scheduled Provider:Willian Barrios MD [facility] Appoint[facility] Type: Open Future Scheduled Tests Laboratory* CBC w/ Auto Diff 06/10/23 Radiology* MA Mamm Screen w/CAD if perf and 3D Michael 03/17/23 [facility] note Future Appointments Appointment Date:06/17/2023 10:30:00 AM Scheduled Provider: Location:.ONCOLOGY Appointment Type:ONC Office Visit 30 (FT) Appointment Date:06/30/2023 11:20:00 AM Scheduled Provider:Willian Barrios MD [facility] App[facility] Type: Open Appointment Date:07/10/2023 09:45:00 AM Scheduled Provider: Location:[facility] Appointment Type:Surgery FT Appointment Date:09/16/2023 01:00:00 PM Scheduled Provider: [facility] Appointment Type: Medicare Wellness Subsequent Appointment Date:09/16/2023 02:20:00 PM Scheduled Provider:Willian Barrios MD [facility] Appoint[facility] Type: Open Future Scheduled Tests Laboratory* CBC w/ Auto Diff 06/10/23 Radiology* MA Mamm Screen w/CAD if perf and 3D Michael 03/17/23 [facility] Evaluation + Plan note Future Appointments Appointment Date:06/17/2023 10:30:00 AM Scheduled Provider: Location:.ONCOLOGY Appointment Type:ONC Office Visit 30 (FT) Appointment Date:06/30/2023 11:20:00 AM Scheduled Provider:Willian Barrios MD [facility] App[facility] Type: Open Appointment Date:07/10/2023 09:30:00 AM Scheduled Provider: Location:[facility] Appointment Type:Surgery FT Appointment Date:09/16/2023 01:00:00 PM Scheduled Provider: [facility] Appointment Type: Medicare Wellness Subsequent Appointment Date:09/16/2023 02:20:00 PM Scheduled Provider:Willian Barrios MD [facility] Appoint[facility] Type: Open Future Scheduled Tests Radiology* MA Mamm Screen w/CAD if perf and 3D Michael 03/17/23 [facility] Future Appointments Appointment Date:06/30/2023 11:20:00 AM Scheduled Provider:Willian Barrios MD [facility] App[facility] Type: Open Appointment Date:07/22/2023 09:30:00 AM Scheduled Provider: Location:.ONCOLOGY Appointment Type:ONC Office Visit 30 (FT) Appointment Date:07/24/2023 10:00:00 AM Scheduled Provider: Location:[facility] Appointment Type:Surgery FT Appointment Date:08/29/2023 11:00:00 AM Scheduled Provider: [facility] App[facility] Type:FM Medicare Wellness Subsequent Appointment Date:09/16/2023 02:20:00 PM Scheduled Provider:Willian Barrios MD Location:[facility] Appointment Type: Open Future Scheduled Tests Laboratory* CBC w/ Auto Diff 07/22/23 Radiology* MA Mamm Screen w/CAD if perf and 3D Michael 03/17/23 [facility] note Future Appointments Appointment Date:07/22/2023 09:30:00 AM Scheduled Provider: [facility] Appoint[facility] Type:ONC Office Visit 30 (FT) Appointment Date:07/24/2023 10:00:00 AM Scheduled Provider: Location:[facility] Appointment Type:Surgery FT Appointment Date:08/29/2023 11:00:00 AM Scheduled Provider: [facility] Appoint[facility] Type:FM Medicare Wellness Subsequent Appointment Date:09/16/2023 02:20:00 PM Scheduled Provider:Willian Barrios MD [facility] Appoint[facility] Type: Open Appointment Date:09/29/2023 11:20:00 AM Scheduled Provider:Willian Barrios MD [facility] Appointment Type: Open Future Scheduled Tests Radiology* MA Mamm Screen w/CAD if perf and 3D Michael 03/17/23 [facility] Future Appointments Appointment Date:08/29/2023 11:00:00 AM Scheduled Provider: Location:[facility] Appointment Type: Medicare Wellness Subsequent Appointment Date:09/16/2023 02:20:00 PM Scheduled Provider:Willian Barrios MD [facility] App[facility] Type: Open Appointment Date:09/23/2023 10:00:00 AM Scheduled Provider: Location:.ONCOLOGY Appointment Type:ONC Office Visit 30 (FT) Appointment Date:09/29/2023 11:20:00 AM Scheduled Provider:Willian Barrios MD [facility] App[facility] Type: Open Appointment Date:10/01/2023 12:40:00 PM Scheduled Provider:Ashlie Mead CNP Location:[facility] Appointment Type:[facility] Follow Up Future Scheduled Tests Laboratory* [...] perf and 3D Michael 03/17/23 [facility] Evaluation + Plan note Future Appointments Appointment Date:09/16/2023 02:20:00 PM Scheduled Provider:Willian Barrios MD [facility]: Open Appointment Date:09/23/2023 10:00:00 AM Scheduled Provider: Location:.ONCOLOGY Appointment Type:ONC Office Visit 30 (FT) Appointment Date:09/29/2023 11:20:00 AM Scheduled Provider:Willian Barrios MD [facility] Type: Open Appointment Date:10/01/2023 12:40:00 PM Scheduled Provider:sAhlie Mead CNP Location:[facility] Appointment Type:BAD Follow Up Appointment Date:08/31/2024 11:00:00 AM Scheduled Provider: Location:[facility] Appointment Type: Medicare Wellness Subsequent [...] w/CAD if perf and 3D Michael 03/17/23 [facility] Future Appointments Appointment Date:01/15/2024 09:00:00 AM Scheduled Provider: Location:[facility] Appointment Type:Surgery FT Appointment Date:03/29/2024 10:30:00 AM Scheduled Provider:Willian Barrios MD Location:[facility] Appointment Type: Open Appointment Date:08/31/2024 11:00:00 AM Scheduled Provider: Location:[facility] Appointment Type:FM Medicare Wellness Subsequent Future Scheduled Tests Laboratory* CBC w/ Auto Diff 10/01/23 * CBC w/ Auto Diff 07/31/23 Radiology* MA Mamm Screen w/CAD if perf and 3D Michael 03/17/23 [facility] Evaluation + Plan note Future Appointments Appointment Date:01/15/2024 09:00:00 AM Scheduled Provider: Location:[facility] Appointment Type:Surgery FT Appointment Date:03/15/2024 10:00:00 AM Scheduled Provider:Eloisa PATTEN, Mariah Davison Location:.ONCOLOGY Appointment Type:ONC Office Visit 30 (FT) Appointment Date:03/29/2024 10:30:00 AM Scheduled Provider:Willian Barrios MD Location:[facility] Appointment Type: Open Appointment Date:08/31/2024 11:00:00 AM Scheduled Provider: Location:[facility] Appointment Type: Medicare Wellness Subsequent Future Scheduled Tests Laboratory* CBC w/ Auto Diff 03/08/24 * CBC w/ Auto Diff 10/01/23 * CBC w/ Auto Diff 07/31/23 * Comprehensive Metabolic Panel 03/08/24 * Ferritin 03/08/24 * Iron Level 03/08/24 * Iron Percent Saturation 03/08/24 * Transferrin 03/08/24 Radiology* MA Mamm Screen w/CAD if perf and 3D Michael 03/17/23 [facility] Future Appointments Appointment Date:01/15/2024 09:00:00 AM Scheduled Provider: Location:[facility] Appointment Type:Surgery FT Appointment Date:03/15/2024 10:00:00 AM Scheduled Provider:Mariah Amin MD [facility] App[facility] Type:ONC Office Visit 30 (FT) Appointment Date:03/29/2024 10:30:00 AM Scheduled Provider:Willian Barrios MD Location:[facility] Appointment Type: Open Appointment Date:08/31/2024 11:00:00 AM Scheduled Provider: Location:[facility] Appointment Type:FM Medicare Wellness Subsequent Diagnostic Tests [...] w/CAD if perf and 3D Michael 03/17/23 [facility] Future Appointments Appointment Date:03/15/2024 10:00:00 AM Scheduled Provider:Mariah Amin MD Location:.ONCOLOGY Appointment Type:ONC Office Visit 30 (FT) Appointment Date:03/29/2024 10:30:00 AM Scheduled Provider:Willian Barrios MD Location:[facility] Appointment Type: Open Appointment Date:08/31/2024 11:00:00 AM Scheduled Provider: Location:[facility] Appointment Type:FM Medicare Wellness Subsequent Future Scheduled Tests Laboratory* CBC w/ Auto Diff 03/08/24 * CBC w/ Auto Diff 10/01/23 * CBC w/ Auto Diff 07/31/23 * Comprehensive Metabolic Panel 03/08/24 * Ferritin 03/08/24 * Iron Level 03/08/24 * Iron Percent Saturation 03/08/24 * Transferrin 03/08/24 Radiology* MA Mamm Screen w/CAD if perf and 3D Michael 03/17/23 [facility] Evaluation + Plan note Future Appointments Appointment Date:03/15/2024 10:00:00 AM Scheduled Provider:Mariah Amin MD [facility] App[facility] Type:ONC Office Visit 30 (FT) Appointment Date:03/29/2024 10:30:00 AM Scheduled Provider:Willian Barrios MD Location:[facility] Appointment Type: Open Appointment Date:08/31/2024 11:00:00 AM Scheduled Provider: Location:[facility] Appointment Type: Medicare Wellness Subsequent Future Scheduled Tests Laboratory* CBC w/ Auto Diff 10/01/23 * CBC w/ Auto Diff 07/31/23 Radiology* MA Mamm Screen w/CAD if perf and 3D Michael 03/17/23 [facility] Future Appointments Appointment Date:03/29/2024 10:30:00 AM Scheduled Provider:Willian Barrios MD Location:[facility] Appointment Type: Open Appointment Date:07/13/2024 10:00:00 AM Scheduled Provider:Mariah Amin MD [facility] Appointment Type:ONC Office Visit 30 (FT) Appointment Date:08/31/2024 11:00:00 AM Scheduled Provider: Location:[facility] Appointment Type: Medicare Wellness Subsequent [...] w/CAD if perf and 3D Michael 03/17/23 [facility] Future Appointments Appointment Date:04/23/2024 12:30:00 PM Scheduled Provider: [facility] Appoint[facility] Type:PUL Methacholine Test (FT) Appointment Date:07/13/2024 10:00:00 AM Scheduled Provider:Mariah Amin MD [facility] Appointment Type:ONC Office Visit 30 (FT) Appointment Date:08/31/2024 09:30:00 AM Scheduled Provider:Willian Barrios MD Location:[facility] Appointment Type:FM Open Appointment Date:08/31/2024 11:00:00 AM Scheduled Provider: Location:[facility] Appointment Type: Medicare Wellness Subsequent [...] Transferrin 07/06/24 * Vitamin B12 Level 07/06/24 [facility] Narrative No data available for this section [facility] No data available for this section [facility] No data available for this section [facility] Summary Purpose Family History No [...] and content) DATE CREATED AUTHOR 10/31/2018 [facility] DATE CREATED AUTHOR AUTHOR'S ORGANIZ ATION 09/24/2022 [facility] DATE CREATED AUTHOR AUTHOR'S ORGANIZ ATION 05/30/2023 [facility] DATE CREATED AUTHOR AUTHOR'S ORGANIZ ATION 03/10/2024 [facility] DATE CREATED AUTHOR AUTHOR'S ORGANIZ ATION 04/04/2024 [facility] DATE CREATED AUTHOR AUTHOR'S ORGANIZ ATION 06/15/2024 [facility] Patient Care team informatio n (unrecognized section and content) Personnel Name: FERNY HUDDLESTON MD Address: Address: [address] [place] [address] Personnel Name: Willian Barrios MD Address: Address: [address] [place] [address] Personnel Name: Willian Barrios MD Address: Address: [address] [place] [address] Personnel Name: Willian Barrios MD Address: Address: [address] [place] [address] Personnel Name: Willian Barrios MD Address: Address: [address] [place] [address] Personnel Name: Willian Barrios MD Address: Address: [address] [place] [address] Personnel Name: Willian Barrios MD Address: Address: [address] [place] [address] Personnel Name: Willian Barrios MD Address: Address: [address] [place], [place] [address] Personnel Name: Willian Barrios MD Address: Address: [address] [place] [address] Personnel Name: Willian Barrios MD Address: Address: [facility] [address] Personnel Name: Willian Barrios MD Address: Address: [facility] [address] Personnel Name: Willian Barrios MD Address: Address: [facility] [address] Personnel Name: Willian Barrios MD Address: Address: [facility] [address] Personnel Name: Willian Barrios MD Address: Address: [facility] [address] Personnel Name: Willian Barrios MD Address: Address: [facility] [address] Personnel Name: Willian Barrios MD Address: Address: [facility] [address] Personnel Name: Willian Barrios MD Address: Address: [facility] Naun [address] Personnel Name: Willian Barrios MD Address: Address: [facility] [address] Personnel Name: Willian Barrios MD Address: Address: [facility] [address] Personnel Name: Willian Barrios MD Address: Address: [facility] [address] FOR RECORDS PERTAINING TO PATIENTS WHO [...] BE BASED ON THE PRIMARY CLINICAL RECORDS. [facility]. provides no warranty or guarantee of the accuracy or completeness of information in this document.
[2024-06-15 18:12] LABS: Partial Thromboplastin Time 32.1 sec (22.3-36.2)
[2024-06-15 18:13] LABS: Glucometer 160 mg/dL (74-106)
[2024-06-15 18:23] LABS: Amylase 87 U/L (25-115)
[2024-06-15] MEDS: LACTATED RINGER'S SOLUTION 1,000 ML 100 ML IV (18:28)
[2024-06-15 18:35] LABS: Ammonia 13 umol/L (11-32)
[2024-06-15 21:41] LABS: Glucometer 148 mg/dL (74-106)
[2024-06-16] VITALS (19 sets, daily range): BP systolic 99–117; BP diastolic 64–76; PULSE 72–103; TEMP 36.3–36.5; O2SAT 94–98
[2024-06-16] MEDS: CEFTRIAXONE 1,000 MG in 0.9 % SODIUM CHLORIDE 50 ML 100 MG IV ×2 (00:19→23:04)
[2024-06-16 00:26] LABS: Hematocrit 25.2 % (36.0-48.0); Hemoglobin 8.1 g/dL (12.0-16.0)
[2024-06-16] MEDS: LEVOFLOXACIN IN DEXTROSE 5 % 750 MG/150 ML PREMIX 100 MG IV (00:53)
[2024-06-16] MEDS: LEVOTHYROXINE SODIUM 75 MCG TABLET PO (05:37)
[2024-06-16 05:38] LABS: Basophils Percent Auto 0.2 % (0.2-2.0); Eosinophils Percent Auto 0.4 % (0.9-7.0); Hematocrit 24.4 % (36.0-48.0); Immature Granulocytes Abs Auto 0.02 10^3/uL (0.00-0.03); Immature Granulocytes Pct Auto 0.4 % (0.0-0.5); Lymphocytes Absolute Auto 1.1 10^3/uL (1.2-3.8); Lymphocytes Percent Auto 23.2 % (20.5-60.0); Mean Corpuscular HGB Conc 32.8 g/dL (29.9-35.2); Mean Corpuscular Hemoglobin 31.4 pg (26.7-34.0); Mean Corpuscular Volume 95.7 fL (81.0-99.0); Mean Platelet Volume 11.4 fL (9.5-13.5); Monocytes Absolute Auto 0.4 10^3/uL (0.3-0.8); Monocytes Percent Auto 8.2 % (1.7-12.0); Neutrophils Absolute Auto 3.1 10^3/uL (1.4-6.5); Neutrophils Percent Auto 67.6 % (43.0-75.0); Platelet Count 80 10^3/uL (150-450); Red Blood Count 2.55 10^6/uL (4.20-5.40); Red Cell Distribution Width 17.1 % (11.0-15.0); White Blood Count 4.6 10^3/uL (4.0-11.0)
[2024-06-16 05:50] LABS: INR 2.24; Partial Thromboplastin Time 32.5 sec (22.3-36.2); Prothrombin Time 21.9 sec (9.0-11.6)
[2024-06-16 06:01] LABS: Alanine Aminotransferase 68 U/L (14-59); Albumin Globulin Ratio 0.9; Albumin Level 2.3 g/dL (3.4-5.0); Alkaline Phosphatase 66 U/L (46-116); Anion Gap 14.6; Aspartate Amino Transferase 88 U/L (15-37); Bilirubin Total 1.3 mg/dL (0.2-1.0); Calcium 8.7 mg/dL (8.5-10.1); Carbon Dioxide 23.2 mmol/L (21.0-32.0); Chloride 106 mmol/L (98-107); Estimated GFR (African America 16 (>=60); Estimated GFR (Non-African Ame 13 (>=60); Globulin 2.5 g/dL; Glucose 118 mg/dL (74-106); Potassium 3.8 mmol/L (3.5-5.1); Sodium 140 mmol/L (136-145); Total Protein 4.8 g/dL (6.4-8.2)
--- NOTE | 2024-06-16 06:59 | US_ITS ---
[address] [address] Patient Name: CALI SANTOS MRN: [id number] date: 1955 Sex: F Assigned Patient Location: Current Patient Location: Accession/Order Number: [id number] Exam Date: 06/16/2024 07:45 Report Date: 06/16/2024 09:26 At the request of: JOHN ORTEGA Procedure: US right upper quadrant PROCEDURE: US right upper quadrant, 06/16/2024 7:45 AM EDT CLINICAL INDICATIONS: Pancreatitis COMPARISON: None TECHNIQUE: Right upper quadrant abdominal sonogram, grayscale, color evaluation. FINDINGS: Borderline prominence of the pancreas up to 2.5 cm in thickness. Some of coarsened echotexture is noted. Focal abnormality or ductal dilatation is not evident. Peripancreatic fluid collection is not seen. Head and tail segments however are obscured. Coarsened hepatic echotexture, lobular hepatic contour is noted. A focal hepatic abnormality is not evident. Right lobe liver is mildly prominent up to 16.4 cm craniocaudally. Visualized portal vein is patent, antegrade phasic flow pattern, normal velocity, 36 cm/s. Visualized hepatic veins are patent. Cholelithiasis is present measuring up to 1.8 cm. Wall is thickened up to 0.4 cm. Localized pain is not evident. Common bile duct is normal. 0.2 cm. Right kidney is normal in morphology. It measures 11.3 x 5.1 x 5.3 cm. Mild renal cortical thinning is present, 1.1 cm. No hydronephrosis or shadowing calculus is identified. Focal renal abnormality is not demonstrated. Perihepatic ascites noted. US/US right upper quadrant IMPRESSION: 1. Mild coarsened echotexture of the visualized body the pancreas. Minimal edematous changes considered. Ductal dilatation, peripancreatic fluid collection or focal abnormality are not evident. Head and tail segments are incompletely assessed. No sonographic features of complicated pancreatitis. 2. Cholelithiasis with wall thickening, no localized pain or bile duct dilatation. This may relate to hepatic disease, low protein state, acute or chronic cholecystitis, presence of ascites. 3. Mild hepatomegaly, hepatic cirrhosis, perihepatic ascites. Visualized portal vein patent, antegrade phasic flow, normal velocity. Electronically authenticated by: TALIA DEL RIO Date: 06/16/2024 09:26
--- NOTE | 2024-06-16 06:59 | US_ITS ---
The [address] [address] Patient Name: CALI SANTOS MRN: [id number] date: 1955 Sex: F Assigned Patient Location: [place] Current Patient Location: Accession/Order Number: [id number] Exam Date: 06/16/2024 07:45 Report Date: 06/16/2024 09:21 At the request of: JOHN ORTEGA Procedure: US renal bladder PROCEDURE: US renal bladder, 06/16/2024 7:45 AM EDT CLINICAL INDICATIONS: Acute kidney injury, acute renal failure COMPARISON: None TECHNIQUE: Renal and bladder sonogram, grayscale, color evaluation. FINDINGS: Right kidney: 11.1 x 5.0 x 5.3 cm, cortex 0.7 cm. Left kidney: 10.1 x 4.5 x 4.7 cm, cortex 0.9 cm. Prevoid urinary bladder volume: 216 mL Postvoid urinary bladder volume: 89 mL Decreased anatomic resolution given poor acoustic transmission in this patient. There is mild renal cortical thinning, prominent central renal sinus fat. Focal renal abnormality is not demonstrated. Nephrolithiasis is not seen. There is no hydronephrosis. Intact renal vascularity is seen. Urinary bladder abnormality is not seen. Significant wall thickening is not evident. Ureteral jets not identified during sonographic surveillance. There is perihepatic ascites. US/US renal bladder IMPRESSION: 1. Mild renal cortical thinning, no hydronephrosis. There is nonspecific lack of visualization of ureteral jets 2. No nephrolithiasis or focal renal abnormality. 3. Unremarkable urinary bladder, prevoid volume 216 mL, 89 mL postvoid residual. 4. Mild perihepatic ascites Electronically authenticated by: TALIA DEL RIO Date: 06/16/2024 09:21
--- NOTE | 2024-06-16 08:14 | CM.NOTE ---
Rounds made with Dr. Rahman. Dr. Rahman to check ultrasound abdomen. No discharge today.
--- NOTE | 2024-06-16 08:24 | P.PN_ITS ---
Progress Note: Subjective Subjective Interval history: Pain persisting in her abdomen, just feels generalized weak still. Exam Constitutional Vital Signs, click to edit/add: Last Vital Signs Temp 97.7 F 06/16/24 07:51 Pulse 76 06/16/24 08:00 Resp 18 06/16/24 07:51 BP 106/69 06/16/24 07:51 Pulse Ox 95 06/16/24 07:51 O2 Del Method Room Air 06/16/24 07:51 O2 Flow Rate 2 06/16/24 04:09 Documenting provider has reviewed patient's vital signs: yes Common normals: apparent distress (Appears very fatigued) Chest Common normals: inspection of chest normal Respiratory Common normals: normal respiratory effort, no retractions and clear to auscultation bilaterally Cardio Common normals: regular rate and no murmurs Rhythm: abnormal rhythm GI Common normals: soft to palpation; negative for Normal to inspection, nondistended, normoactive bowel sounds present (Morbidly obese) and tender (Upper abdominal and suprapubic tenderness persisting) Extremity Common normals: normal to inspection, full ROM and no clubbing, cyanosis or edema Progress Note: Objective Labs Labs: Short CBC 06/15/24 06/16/24 06/16/24 Range/Units 15:56 00:15 05:16 WBC 8.1 4.6 (4.0-11.0) 10^3/uL Hgb 8.0 L 8.1 L 8.0 L (12.0-16.0) g/dL Hct 24.8 L 25.2 L 24.4 L (36.0-48.0) % Plt Count 123 L 80 L (150-450) 10^3/uL BMP 06/15/24 06/16/24 15:56 05:16 Sodium 137 140 Potassium 3.9 3.8 Chloride 103 106 Carbon Dioxide 23.7 23.2 BUN 125.0 H* 123.0 H* Creatinine 3.92 H 3.51 H Glucose 162 H 118 H Calcium 9.0 8.7 Liver Function 06/15/24 06/16/24 Range/Units 15:56 05:16 Total Bilirubin 1.3 H 1.3 H (0.2-1.0) mg/dL AST 85 H 88 H (15-37) U/L ALT 73 H 68 H (14-59) U/L Alkaline Phosphatase 84 66 (46-116) U/L Albumin 2.7 L 2.3 L (3.4-5.0) g/dL Progress Note: A&P Assessment and Plan (1) Anemia: (2) Hypotension: (3) New onset a-fib: (4) Melena: (5) Acute renal failure: Plan Admission findings: Sinus bradycardia, paradoxical to blood pressure, hypotension blood pressure 77/50, acute blood loss anemia with hemoglobin down 2 g from previous, thrombocytopenia, acute renal failure, baseline creatinine of 1.44, 3.92 on admission-that would be 272.2% above baseline. Positive lactate. Elevated liver function tests, coagulopathy with elevated pro time all these findings are consistent with suspected early onset sepsis with acute upper gastrointestinal bleeding. Source of infection likely urinary Acute blood loss anemia secondary to acute upper gastrointestinal bleeding with melena, blood count remained stable after the 1 unit but has been stable on repeat CBC. Repeat CBC again later today, with stability would suspect bleeding has stopped. Continue to hold Eliquis Acute pancreatitis-elevated lipase on admission, still persisting today, elevated liver function test are unchanged, ultrasound evidence for acute Cholelithiasis with mild cholecystitis with acute pancreatitis noted on ultrasound.-Maintain n.p.o. status. With pancreas inflamed and condition not deteriorating would hold off on further surgical intervention for her gallstones at this time Atrial fibrillation with bradycardia-hold off on Eliquis. Thrombocytopenia-this has been chronic for her-monitor daily Acute renal failure likely secondary to dehydration versus sepsis-creatinine still elevated, will give fluid bolus this morning. Elevated liver function with cirrhosis noted on ultrasound, test with coagulopathy-likely secondary to the pancreatitis. Continue to monitor daily Positive lactate-still suspecting early sepsis-despite normal white blood cell count, she is having a paradoxical effect with her bradycardia despite hypotension as well as her coagulopathy-maintain current antibiotics while cultures are pending Admission status: Patient with acute blood loss anemia, she will need transfusion tonight, likely will need a second unit later, cannot be aggressive with fluid resuscitation secondary to history of heart failure, with the also renal failure, liver M time elevation and coagulopathy suspecting infectious etiology, medically necessary treatment will span 2 midnights. Inpatient status. Her acute gi bleeding resulting in acute GI blood loss anemia . acute renal failure and her acute pancreatitis are new diagnoses and not related to previous admissions ?
[2024-06-16] MEDS: PANTOPRAZOLE SODIUM 40 MG VIAL IV ×2 (09:32→20:29)
[2024-06-16] MEDS: FLUTICASONE PROPIONATE 50 MCG NASAL SPRAY 2 SPRAY NS (09:32)
[2024-06-16] MEDS: 0.9 % SODIUM CHLORIDE 1,000 ML 1000 ML IV (09:32)
[2024-06-16] MEDS: LACTATED RINGER'S SOLUTION 1,000 ML 100 ML IV ×2 (10:34→20:28)
[2024-06-16 10:36] LABS: Bilirubin Urine NEGATIVE (NEGATIVE); Blood Urine NEGATIVE (NEGATIVE); Clarity Urine CLEAR (CLEAR); Color Urine YELLOW (YELLOW); Glucose Urine UA NEGATIVE (NEGATIVE); Ketones Urine NEGATIVE (NEGATIVE); Leukocyte Esterase Urine NEGATIVE (NEGATIVE); Nitrite Urine NEGATIVE (NEGATIVE); Protein Urine NEGATIVE (NEG/TRACE); Specific Gravity Urine 1.015 (1.005-1.025); Urobilinogen Urine 0.2 EU/dL (0.2-1.0); pH Urine 5.5 (5.0-9.0)
[2024-06-16 11:03] LABS: Bacteria Urine TRACE #/HPF (NONE SEEN); Cast Seen? NONE SEEN #/LPF (NONE SEEN); Crystals Seen? None Seen #/HPF (None Seen); Mucus Urine TRACE (NONE SEEN); RBC Urine NONE SEEN #/HPF (0-2); Squamous Epithelial Cell Urine MANY #/LPF (NONE/RARE); WBC Urine NONE SEEN #/HPF (NONE SEEN)
[2024-06-16 11:10] LABS: Hematocrit 28.4 % (36.0-48.0); Hemoglobin 9.1 g/dL (12.0-16.0); Mean Corpuscular Hemoglobin 31.4 pg (26.7-34.0); Mean Corpuscular Volume 97.9 fL (81.0-99.0); Platelet Count 91 10^3/uL (150-450); Red Cell Distribution Width 17.6 % (11.0-15.0); White Blood Count 5.9 10^3/uL (4.0-11.0)
[2024-06-16 12:02] LABS: Glucometer 140 mg/dL (74-106)
--- NOTE | 2024-06-16 12:02 | SWNOTE1 ---
SW met with pt in room. Pt lives at home with her and son. Pt voiced she does not use a walker at home. SW to check therapy notes to see if one is recommended. Pt did voiced she does feel weaker. SW and pt spoke about HH and SW explained to pt what home health consist of. Pt is in agreement. SW provided pt with list from medicare.gov with star ratings. Pt recognized [facility] home health and would like to use them. SW to send referral. At this time pt has no other concerns. ELIANA updated nursing.
--- NOTE | 2024-06-16 12:04 | SWNOTE1 ---
Important Message from Medicare reviewed and discussed with patient. Pt. verbalized understanding and signed the form. Original given to patient and copy placed in patient?s chart.
--- NOTE | 2024-06-16 12:11 | SWNOTE1 ---
Referral sent to [facility]. Referral included face sheet, ED note, H&P, provider notes, OT note from today.
--- NOTE | 2024-06-16 13:41 | SWNOTE1 ---
SW received a call from [facility] and they are not able to accept due to meeting quota for this month for that insurance. SW to check back with pt about other options.
--- NOTE | 2024-06-16 13:49 | SWNOTE1 ---
SW spoke to pt and provided the list from medicare.gov star ratings, pt does not have preference at this time. SW sent referral to [facility].
--- NOTE | 2024-06-16 15:35 | SWNOTE1 ---
SW received a call from [facility] and they are able to accept pt. SW updated nursing.
[2024-06-16 16:00] LABS: Glucometer 161 mg/dL (74-106)
[2024-06-16] MEDS: INSULIN ASPART 300 UNIT/3 ML PEN SUBQ (16:43)
[2024-06-16 20:00] LABS: Glucometer 140 mg/dL (74-106)
[2024-06-17] VITALS (22 sets, daily range): BP systolic 91–119; BP diastolic 60–81; PULSE 84–115; TEMP 36.3–36.7; O2SAT 92–97
[2024-06-17] MEDS: LEVOTHYROXINE SODIUM 75 MCG TABLET PO (05:50)
[2024-06-17 06:05] LABS: Hematocrit 26.1 % (36.0-48.0); Hemoglobin 8.4 g/dL (12.0-16.0); Mean Corpuscular HGB Conc 32.2 g/dL (29.9-35.2); Mean Corpuscular Hemoglobin 30.9 pg (26.7-34.0); Mean Platelet Volume 10.5 fL (9.5-13.5); Platelet Count 91 10^3/uL (150-450); Red Blood Count 2.72 10^6/uL (4.20-5.40); Red Cell Distribution Width 18.1 % (11.0-15.0); White Blood Count 3.9 10^3/uL (4.0-11.0)
[2024-06-17 06:20] LABS: INR 1.89; Prothrombin Time 18.8 sec (9.0-11.6)
[2024-06-17 06:27] LABS: Alanine Aminotransferase 64 U/L (14-59); Albumin Globulin Ratio 0.9; Albumin Level 2.4 g/dL (3.4-5.0); Alkaline Phosphatase 73 U/L (46-116); Anion Gap 13.8; Aspartate Amino Transferase 67 U/L (15-37); BUN Creatinine Ratio 35.1; Calcium 8.8 mg/dL (8.5-10.1); Carbon Dioxide 23.8 mmol/L (21.0-32.0); Chloride 106 mmol/L (98-107); Estimated GFR (African America 19 (>=60); Estimated GFR (Non-African Ame 16 (>=60); Globulin 2.7 g/dL; Glucose 115 mg/dL (74-106); Potassium 3.6 mmol/L (3.5-5.1); Sodium 140 mmol/L (136-145); Total Protein 5.1 g/dL (6.4-8.2)
[2024-06-17 06:47] LABS: Lymphocytes Absolute Manual 0.62 10^3/uL (1.20-3.80); Monocytes Absolute Manual 0.23 10^3/uL (0.30-0.80); Segmented Neut Absolute Manual 3.04 10^3/uL (1.4-6.5)
[2024-06-17] MEDS: 0.9 % SODIUM CHLORIDE 1,000 ML 500 ML IV ×2 (06:50→11:18)
[2024-06-17 07:27] LABS: Glucometer 125 mg/dL (74-106)
--- NOTE | 2024-06-17 07:55 | CM.NOTE ---
Rounds made with Dr. Rahman, CT of abdomen today and discussed plan of care with pt regarding lab findings. Transfer also discussed with pt if she would need to have her gallbladder removed. Dr. Rahman will discuss plan of care with pt after CT results available.
[2024-06-17] MEDS: PANTOPRAZOLE SODIUM 40 MG VIAL IV ×2 (08:20→21:05)
[2024-06-17] MEDS: FLUTICASONE PROPIONATE 50 MCG NASAL SPRAY 2 SPRAY NS (08:20)
--- NOTE | 2024-06-17 10:02 | CT_ITS ---
[address] [address] Patient Name: CALI SANTOS MRN: [id number] date: 1955 Sex: F Assigned Patient Location: MS Current Patient Location: Accession/Order Number: [id number] Exam Date: 06/17/2024 09:55 Report Date: 06/17/2024 11:49 At the request of: JOHN ORTEGA Procedure: CT abdomen pelvis wo con EXAMINATION: CT abdomen pelvis wo con HISTORY: Pancreatitis COMPARISON: No relevant comparison available. TECHNIQUE: Axial, Coronal, and Sagittal images were obtained without and/or with IV contrast as indicated by examination type. Dose reduction techniques were achieved by using automated exposure control and/or adjustment of mA and/or kV according to patient size and/or use of iterative reconstruction technique. FINDINGS: LUNG BASES: No visible pulmonary or pleural disease. LIVER: Small nodular liver. Moderate to large amount of fluid surrounding the liver, spleen, and within the lower abdomen. BILIARY: 15 mm stone within gallbladder. No appreciable wall thickening, but the marrufo are not well seen. PANCREAS: No lesion, fluid collection, or abnormal duct dilatation. SPLEEN: Mildly enlarged, 13.7 cm. ADRENALS: No mass or enlargement. KIDNEYS: Projecting inferior lateral from right kidney is a 1.9 cm slightly lobular complex cyst versus mass. No mass, obstruction, or calcification. BOWEL/MESENTERY: Circumferential wall thickening of ascending colon. No obstruction or appreciable mass. AORTA/VASCULAR: No aneurysm or dissection. RETROPERITONEUM: No mass or adenopathy. LYMPH NODES: No adenopathy. URINARY BLADDER: No visible focal wall thickening, lesion, or calculus. PELVIC ORGANS: Hysterectomy. ABDOMINAL WALL: Prominent subcutaneous edema within the pannus and bilateral flanks. No visible hernia. 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 No fracture. OTHER: Negative. CT/CT abdomen pelvis wo con IMPRESSION: 1. Small nodular liver, mild splenomegaly, and moderate-marked abdominal ascites suggestive of cirrhosis and portal hypertension. 2. Cholelithiasis. The gallbladder marrufo are not well seen, but no convincing acute cholecystitis. 3. No appreciable pancreatitis. 4. Circumferential wall thickening of ascending colon; lack of distention versus colitis. Electronically authenticated by: KAPIL AGUILAR Date: 06/17/2024 11:49
--- NOTE | 2024-06-17 10:35 | P.PN_ITS ---
Progress Note: Subjective Subjective Interval history: Pain and discomfort in her abdomen is persisting Exam Constitutional Vital Signs, click to edit/add: Last Vital Signs Temp 97.8 F 06/17/24 08:00 Pulse 115 H 06/17/24 10:00 Resp 16 06/17/24 08:00 BP 104/65 06/17/24 08:00 Pulse Ox 92 L 06/17/24 08:00 O2 Del Method Room Air 06/17/24 08:00 O2 Flow Rate 2 06/16/24 04:09 Documenting provider has reviewed patient's vital signs: yes Common normals: apparent distress (Appears very fatigued) Chest Common normals: inspection of chest normal Respiratory Common normals: normal respiratory effort, no retractions and clear to auscultation bilaterally Cardio Common normals: regular rate and no murmurs Rhythm: abnormal rhythm GI Common normals: soft to palpation; negative for Normal to inspection, nondistended, normoactive bowel sounds present (Morbidly obese) and tender (Tenderness persisting but does appear to be less, no rebound) Extremity Common normals: normal to inspection, full ROM and no clubbing, cyanosis or edema Progress Note: Objective Labs Labs: Short CBC 06/16/24 06/17/24 Range/Units 10:59 05:48 WBC 5.9 3.9 L (4.0-11.0) 10^3/uL Hgb 9.1 L 8.4 L (12.0-16.0) g/dL Hct 28.4 L 26.1 L (36.0-48.0) % Plt Count 91 L 91 L (150-450) 10^3/uL BMP 06/17/24 05:48 Sodium 140 Potassium 3.6 Chloride 106 Carbon Dioxide 23.8 BUN 104.0 H* Creatinine 2.96 H Glucose 115 H Calcium 8.8 Liver Function 06/17/24 Range/Units 05:48 Total Bilirubin 1.0 (0.2-1.0) mg/dL AST 67 H (15-37) U/L ALT 64 H (14-59) U/L Alkaline Phosphatase 73 (46-116) U/L Albumin 2.4 L (3.4-5.0) g/dL Urine 06/16/24 Range/Units 10:18 Urine Color Yellow (YELLOW) Urine Clarity Clear (CLEAR) Urine pH 5.5 (5.0-9.0) Ur Specific [place] 1.015 (1.005-1.025) Urine Protein Negative (NEG/TRACE) mg/dL Urine Glucose (UA) Negative (NEGATIVE) mg/dL Progress Note: A&P Assessment and Plan (1) Anemia: (2) Hypotension: (3) New onset a-fib: (4) Melena: (5) Acute renal failure: Plan Admission findings: Sinus bradycardia, paradoxical to blood pressure, hypotension blood pressure 77/50, acute blood loss anemia with hemoglobin down 2 g from previous, thrombocytopenia, acute renal failure, baseline creatinine of 1.44, 3.92 on admission-that would be 272.2% above baseline. Positive lactate. Elevated liver function tests, coagulopathy with elevated pro time all these findings are consistent with early onset sepsis with acute upper carlos rointestinal bleeding. Intra-abdominal source Acute blood loss anemia secondary to acute upper gastrointestinal bleeding with melena, is down slightly today. Continue to hold Eliquis Acute pancreatitis-elevated lipase on admission, abdominal fullness persisting, lipase slightly higher than previous day. Ultrasound suggested pancreatitis. Ultrasound also suggested possible cholecystitis. Patient does have a negative De Paz sign. No rebound tenderness. Will check CT scan of abdomen and pelvis with only oral contrast secondary to kidney function Atrial fibrillation with bradycardia-hold off on Eliquis. Thrombocytopenia-this has been chronic for her-monitor daily Acute renal failure likely secondary to dehydration versus sepsis-slowly improving-continue with fluid boluses and slow maintenance fluids Elevated liver function with cirrhosis noted on ultrasound, test with coagulopathy-coagulopathy improving Positive lactate- early sepsis-despite normal white blood cell count, she is having a paradoxical effect with her bradycardia despite hypotension as well as her coagulopathy-maintain current antibiotics while cultures are pending Admission status: Patient with acute blood loss anemia, she will need transfusion tonight, likely will need a second unit later, cannot be aggressive with fluid resuscitation secondary to history of heart failure, with the also renal failure, liver M time elevation and coagulopathy suspecting infectious etiology, medically necessary treatment will span 2 midnights. Lack of improvement with lipase, CT pending, likely in the hospital 2-3 more days. Inpatient status. Her acute gi bleeding resulting in acute GI blood loss anemia . acute renal failure and her acute pancreatitis are new diagnoses and not related to previous admissions ?
--- NOTE | 2024-06-17 10:46 | PT.DAILY ---
Physical Therapy Daily Note PT Daily Note/Assess Start: 06/17/24 10:45 Freq: Status: Active Protocol: Document 06/17/24 10:30 KEANU (Rec: 06/17/24 10:46 KEANU [id number]) Visit Not Completed Visit Not Completed Visit Not Completed Due to: Pt out of room Other Reason Visit Not Completed Patient in CT scan this AM. Will come back to check on patient in PM. Physical Therapy Daily Note/Assessment Time In/Time Out Time In 10:30 Time Out 10:30 GG. Functional Abilities and Goals-Complete for Swing Bed Patients Only [id number]. Self-Care [id number]. Mobility
[2024-06-17 12:18] LABS: Glucometer 144 mg/dL (74-106)
[2024-06-17] MEDS: LACTATED RINGER'S SOLUTION 1,000 ML 100 ML IV (13:28)
--- NOTE | 2024-06-17 14:59 | PT.DAILY ---
Physical Therapy Daily Note PT Daily Note/Assess Start: 06/17/24 10:45 Freq: Status: Active Protocol: Document 06/17/24 14:30 KEANU (Rec: 06/17/24 14:58 KEANU [id number]) Physical Therapy Daily Note/Assessment Time In/Time Out Time In 14:32 Time Out 14:52 Subjective Subjective Patient reports feeling better . Just tired. Therapeutic Activity Time Therapeutic Activity Minutes (minutes) 20 Therapeutic Activity Units 1 Therapeutic Activity Treatment Bed Mobility Ability Modified Independent Chair Transfer Ability Standby Assistance Therapeutic Activity Comments Gait 90' with RW SBA. Patient slow, fatigued quickly but was able to complete distance. Total Physical Therapy Time Total Therapy Minutes 20 Total Physical Therapy Units 1 Summary Daily Note Summary Improved ability with bed mobility, transfers and gait today. Did not require assistance to get LE's back up into bed. Moderate fatigue post ambulation. Would recommend use of RW for energy conservation and due to weakness along with HH PT at DC to build up strength. Patient supine in bed with rail ups, call light in reach and all needs met post RX.
--- NOTE | 2024-06-17 15:12 | SWNOTE1 ---
SW spoke with pt today about her discharge plans. SW and pt spoke about rehab versus HH. SW advised pt that she is a precert to go skilled. SW explained that at this time therapy is recommending home health. There is a chance that her insurance will deny her. SW explained that we can try and if she decides she does not want to go SNF, then we can cancel precert. At this time pt wants to speak with her and then make a decision. She is leaning towards just home with home health. SW to check back tomorrow.
--- NOTE | 2024-06-17 15:53 | SWNOTE1 ---
ELIANA also spoke with pt about a walker. She is not sure she will need one. ELIANA did explain that medicare does cover one DME equipment every 5 years and that it may be beneficial to get a walker to have just in case it is needed. Pt is not sure at this time. SW to check back tomorrow.
[2024-06-17 15:59] LABS: Glucometer 146 mg/dL (74-106)
[2024-06-17] MEDS: 0.9 % SODIUM CHLORIDE 250 ML 10 ML IV (16:44)
[2024-06-17] MEDS: INSULIN ASPART 300 UNIT/3 ML PEN SUBQ ×2 (17:01→21:05)
[2024-06-17 20:51] LABS: Glucometer 156 mg/dL (74-106)
[2024-06-17] MEDS: LEVOFLOXACIN IN DEXTROSE 5 % 500 MG/100 ML PREMIX 100 MG IV (21:05)
[2024-06-17] MEDS: CEFTRIAXONE 1,000 MG in 0.9 % SODIUM CHLORIDE 50 ML 100 MG IV (23:25)
[2024-06-18] VITALS (34 sets, daily range): BP systolic 77–120; BP diastolic 46–78; PULSE 93–133; TEMP 36.3–36.6; O2SAT 93–98
[2024-06-18] MEDS: LACTATED RINGER'S SOLUTION 1,000 ML 100 ML IV ×2 (02:55→12:11)
[2024-06-18] MEDS: LEVOTHYROXINE SODIUM 75 MCG TABLET PO (06:02)
[2024-06-18 06:23] LABS: Eosinophils Absolute Auto 0.1 10^3/uL (0.0-0.7); Eosinophils Percent Auto 1.2 % (0.9-7.0); Hematocrit 26.3 % (36.0-48.0); Hemoglobin 8.6 g/dL (12.0-16.0); Immature Granulocytes Abs Auto 0.02 10^3/uL (0.00-0.03); Immature Granulocytes Pct Auto 0.5 % (0.0-0.5); Lymphocytes Absolute Auto 0.6 10^3/uL (1.2-3.8); Lymphocytes Percent Auto 13.6 % (20.5-60.0); Mean Corpuscular HGB Conc 32.7 g/dL (29.9-35.2); Mean Corpuscular Hemoglobin 31.5 pg (26.7-34.0); Mean Corpuscular Volume 96.3 fL (81.0-99.0); Mean Platelet Volume 10.7 fL (9.5-13.5); Monocytes Absolute Auto 0.4 10^3/uL (0.3-0.8); Monocytes Percent Auto 9.7 % (1.7-12.0); Platelet Count 95 10^3/uL (150-450); Red Blood Count 2.73 10^6/uL (4.20-5.40); Red Cell Distribution Width 17.7 % (11.0-15.0)
[2024-06-18 06:36] LABS: INR 1.69
[2024-06-18 06:55] LABS: Alanine Aminotransferase 67 U/L (14-59); Albumin Globulin Ratio 0.9; Albumin Level 2.7 g/dL (3.4-5.0); Alkaline Phosphatase 75 U/L (46-116); Anion Gap 16.1; Aspartate Amino Transferase 71 U/L (15-37); BUN Creatinine Ratio 36.4; Bilirubin Total 1.2 mg/dL (0.2-1.0); Carbon Dioxide 24.2 mmol/L (21.0-32.0); Chloride 107 mmol/L (98-107); Estimated GFR (African America 25 (>=60); Estimated GFR (Non-African Ame 21 (>=60); Globulin 2.9 g/dL; Glucose 99 mg/dL (74-106); Potassium 3.3 mmol/L (3.5-5.1); Sodium 144 mmol/L (136-145); Total Protein 5.6 g/dL (6.4-8.2)
[2024-06-18] MEDS: PANTOPRAZOLE SODIUM 40 MG VIAL IV ×2 (08:10→21:43)
[2024-06-18] MEDS: FLUTICASONE PROPIONATE 50 MCG NASAL SPRAY 2 SPRAY NS (08:10)
--- NOTE | 2024-06-18 08:11 | P.PN_ITS ---
Progress Note: Subjective Subjective Interval history: Patient up in a chair, looks better, feels better to her. Exam Constitutional Vital Signs, click to edit/add: Last Vital Signs Temp 97.5 F L 06/18/24 04:00 Pulse 116 H 06/18/24 06:00 Resp 18 06/18/24 04:00 BP 120/77 06/18/24 04:00 Pulse Ox 94 L 06/18/24 04:00 O2 Del Method Room Air 06/18/24 04:00 O2 Flow Rate 2 06/16/24 04:09 Documenting provider has reviewed patient's vital signs: yes Common normals: apparent distress (Appears very fatigued) Chest Common normals: inspection of chest normal Respiratory Common normals: normal respiratory effort, no retractions and clear to auscultation bilaterally Cardio Common normals: regular rate and no murmurs Rhythm: abnormal rhythm GI Common normals: soft to palpation; negative for Normal to inspection, nondistended, normoactive bowel sounds present (Morbidly obese) and tender (Tenderness persisting but does appear to be less, no rebound) Extremity Common normals: normal to inspection, full ROM and no clubbing, cyanosis or madyson ma Progress Note: Objective Labs Labs: Short CBC 06/16/24 06/18/24 Range/Units 00:15 05:50 WBC 4.0 (4.0-11.0) 10^3/uL Hgb 8.1 L 8.6 L (12.0-16.0) g/dL Hct 25.2 L 26.3 L (36.0-48.0) % Plt Count 95 L (150-450) 10^3/uL BMP 06/18/24 05:50 Sodium 144 Potassium 3.3 L Chloride 107 Carbon Dioxide 24.2 BUN 84.0 H* Creatinine 2.31 H Glucose 99 Calcium 9.0 Liver Function 06/18/24 Range/Units 05:50 Total Bilirubin 1.2 H (0.2-1.0) mg/dL AST 71 H (15-37) U/L ALT 67 H (14-59) U/L Alkaline Phosphatase 75 (46-116) U/L Albumin 2.7 L (3.4-5.0) g/dL Progress Note: A&P Assessment and Plan (1) Anemia: (2) Hypotension: (3) New onset a-fib: (4) Melena: (5) Acute renal failure: Plan Admission findings: Sinus bradycardia, paradoxical to blood pressure, hypotension blood pressure 77/50, acute blood loss anemia with hemoglobin down 2 g from previous, thrombocytopenia, acute renal failure, baseline creatinine of 1.44, 3.92 on admission-that would be 272.2% above baseline. Positive lactate. Elevated liver function tests, coagulopathy with elevated pro time all these findings are consistent with early onset sepsis with acute upper gastrointestinal bleeding. Intra-abdominal source Acute blood loss anemia secondary to acute upper gastrointestinal bleeding with melena, is down slightly today. Continue to hold Eliquis, INR still elevated, vitamin K and a second round of fresh frozen. Hemoglobin up slightly today Acute pancreatitis-elevated lipase on admission, abdominal fullness persisting, lipase slightly higher than previous day. CT scan from yesterday shows no pancreatitis evidence. But significant intra-abdominal ascites. Plan is for repeat dose of the fresh frozen today and then completing a paracentesis with fluid analysis. Patient does not have any history of liver issues in the past. Atrial fibrillation with bradycardia-hold off on Eliquis as outlined above Mild neutropenia yesterday-improved today Thrombocytopenia-this has been chronic for her-monitor daily-improved today Acute renal failure likely secondary to dehydration versus sepsis-slowly improving-continue with fluid boluses and slow maintenance fluids Elevated liver function with cirrhosis noted on ultrasound, test with coagulopathy-currently stable Positive lactate- early sepsis-despite normal white blood cell count, she is having a paradoxical effect with her bradycardia despite hypotension as well as her coagulopathy-maintain current antibiotics while cultures are pending Admission status: Patient with acute blood loss anemia, she will need transfusion tonight, likely will need a second unit later, cannot be aggressive with fluid resuscitation secondary to history of heart failure, with the also renal failure, liver M time elevation and coagulopathy suspecting infectious etiology, medically necessary treatment will span 2 midnights. Lack of improvement with lipase, CT pending, likely in the hospital 1-2 more days. Inpatient status. Her acute gi bleeding resulting in acute GI blood loss anemia . acute renal failure and her acute pancreatitis are new diagnoses and not related to previous admissions ?
--- NOTE | 2024-06-18 08:13 | US_ITS ---
[address] [address] Patient Name: CALI SANTOS MRN: [id number] date: 1955 Sex: F Assigned Patient Location: [place] Current Patient Location: [place] Accession/Order Number: [id number] Exam Date: 06/18/2024 15:00 Report Date: 06/18/2024 16:52 At the request of: JOHN ORTEGA Procedure: US paracentesis abd w/image EXAMINATION: US paracentesis abd w/image HISTORY: ascites COMPARISON: CT abdomen pelvis 06/17/2024 DESCRIPTION: Informed consent was obtained. The patient was prepped and draped in standard sterile fashion. Ultrasound-guided paracentesis was performed in the usual sterile manner using 1% Xylocaine. FINDINGS: SITE: Left lower quadrant NEEDLE: Paracentesis 8 Fr. catheter over 18 gauge needle MEDICATION: 1% buffered Xylocaine for local anesthesia FLUID DESCRIPTION: Slightly opaque yellowish fluid. FLUID VOLUME: 7.7 L COMPLICATIONS: None LABORATORY: Pending OTHER: Negative. US/US paracentesis abd w/image IMPRESSION: 1. Successful paracentesis with removal of 7.7 L of yellowish, minimally opaque fluid. 2. Laboratory evaluation is pending. Electronically authenticated by: KAPIL AGUILAR Date: 06/18/2024 16:52
[2024-06-18] MEDS: PHYTONADIONE (VIT K1) 1 MG/0.5 ML NEWBORN SYRINGE IM (08:14)
--- NOTE | 2024-06-18 08:20 | CM.NOTE ---
Rounds made with Dr. Rahman, discussed with pt about having ascites and need for paracentesis. Dr. Rahman discussed procedure with Dr. Kincaid this morning. No discharge today.
--- NOTE | 2024-06-18 10:18 | PT.DAILY ---
Physical Therapy Daily Note PT Daily Note/Assess Start: 06/17/24 10:45 Freq: Status: Active Protocol: Document 06/18/24 10:14 WINSTON (Rec: 06/18/24 10:18 WINSTON [id number]) Physical Therapy Daily Note/Assessment Time In/Time Out Time In 09:22 Time Out 09:35 Pain In Pain N/A Pain Out Pain N/A Subjective Subjective Sitting in BS chair upon arrival. Agrees to PT. Denies pain this morning. Therapeutic Exercise Time Therapeutic Exercise Minutes (minutes) 4 Therapeutic Exercise Units 0 Therapeutic Exercise Treatment Therapeutic Exercise Treatment Seated bilat LE strengthening ex complete in BS chair 10x ea prior to gait and transfer. Therapeutic Activity Time Therapeutic Activity Minutes (minutes) 8 Therapeutic Activity Units 1 Therapeutic Activity Treatment Chair Transfer Ability Standby Assistance Therapeutic Activity Comments Sit>stand SBA to RW. Pt amb 20 ' to restroom SBA with assist for IV pole. Pt able to perform toilet transfer and pericare SUP. Pt washes her face with set up required. Pt then amb 2 laps in room for aprox 80' total. Pt returned to BS chair upon completion with call light in reach and chair alarm activated. Total Physical Therapy Time Total Therapy Minutes 12 Total Physical Therapy Units 1 Summary Daily Note Summary min fatigue upon completion. No assistance needed for transfers and pericare.
--- NOTE | 2024-06-18 10:36 | PC.NURSE ---
Expiration date on the plasma unit number [id number] read as thawed expiration of 06/19/27 at 0900 . The unthawed expiration date is 12/26/2024
[2024-06-18 11:12] LABS: Glucometer 152 mg/dL (74-106)
--- NOTE | 2024-06-18 11:20 | SWNOTE1 ---
ELIANA stopped in to speak with pt. She would like SW to call her son, Norbert, to discuss dc planning. ELIANA called Norbert and left him a voicemail. ELIANA called Norbert again and was able to speak with him. Norbert was wondering if pt could do outpt therapy instead here in [place]. He voiced that would get his mother up and moving more. SW let him know that pt can't do outpt therapy and HH. He voiced he knows and would prefer outpt if pt is alright with it. ELIANA let Norbert know that it is there choice and SW can set it up if pt agrees. SW to speak with pt.
--- NOTE | 2024-06-18 11:52 | SWNOTE1 ---
SW spoke to pt about outpt therapy. She is in agreement and would like to do outpt and not do home health. SW spoke to case management and we will get order sent over to outpt therapy. SW informed pt that they will call her to schedule a time once she is out of hospital.
--- NOTE | 2024-06-18 11:58 | SWNOTE1 ---
ELIANA called Maxine at [facility] and updated her that pt is going to do outpt therapy instead of home health.
--- NOTE | 2024-06-18 12:33 | SWNOTE1 ---
Outpt rehab form filled out for pt to have PT/OT in the outpt setting. Form faxed to rehab services. Original given to pt and copy in chart.
[2024-06-18] MEDS: LIDOCAINE HCL 10 ML, SODIUM BICARBONATE 1 MEQ INJ (15:10)
[2024-06-18 16:22] LABS: Glucometer 146 mg/dL (74-106)
--- NOTE | 2024-06-18 16:31 | PC.NURSE ---
[address] 1515 Noted BP and was repeated 3 min later. Clamped catheter tubing for 5 minutes and then resumed fluid removal. Pt tolerated paracentesis well.
[2024-06-18 20:27] LABS: Glucometer 180 mg/dL (74-106)
[2024-06-18] MEDS: INSULIN ASPART 300 UNIT/3 ML PEN SUBQ (21:52)
[2024-06-19] VITALS (18 sets, daily range): BP systolic 95–106; BP diastolic 61–71; PULSE 87–118; TEMP 36.4–36.7; O2SAT 94–98
[2024-06-19] MEDS: LACTATED RINGER'S SOLUTION 1,000 ML 100 ML IV (00:24)
[2024-06-19] MEDS: CEFTRIAXONE 1,000 MG in 0.9 % SODIUM CHLORIDE 50 ML 100 MG IV (00:24)
[2024-06-19] MEDS: LEVOTHYROXINE SODIUM 75 MCG TABLET PO (06:10)
[2024-06-19 06:25] LABS: Basophils Percent Auto 0.4 % (0.2-2.0); Eosinophils Percent Auto 1.4 % (0.9-7.0); Hemoglobin 8.2 g/dL (12.0-16.0); Immature Granulocytes Abs Auto 0.01 10^3/uL (0.00-0.03); Immature Granulocytes Pct Auto 0.4 % (0.0-0.5); Lymphocytes Absolute Auto 0.5 10^3/uL (1.2-3.8); Lymphocytes Percent Auto 17.5 % (20.5-60.0); Mean Corpuscular HGB Conc 32.8 g/dL (29.9-35.2); Mean Corpuscular Hemoglobin 31.8 pg (26.7-34.0); Mean Corpuscular Volume 96.9 fL (81.0-99.0); Mean Platelet Volume 10.7 fL (9.5-13.5); Monocytes Absolute Auto 0.3 10^3/uL (0.3-0.8); Monocytes Percent Auto 9.6 % (1.7-12.0); Neutrophils Percent Auto 70.7 % (43.0-75.0); Platelet Count 96 10^3/uL (150-450); Red Blood Count 2.58 10^6/uL (4.20-5.40); Red Cell Distribution Width 17.2 % (11.0-15.0); White Blood Count 2.8 10^3/uL (4.0-11.0)
[2024-06-19 06:44] LABS: INR 1.65; Prothrombin Time 16.6 sec (9.0-11.6)
[2024-06-19 06:49] LABS: Alanine Aminotransferase 60 U/L (14-59); Albumin Level 2.5 g/dL (3.4-5.0); Alkaline Phosphatase 74 U/L (46-116); Anion Gap 12.7; Aspartate Amino Transferase 56 U/L (15-37); BUN Creatinine Ratio 34.8; Bilirubin Total 0.8 mg/dL (0.2-1.0); Calcium 8.5 mg/dL (8.5-10.1); Carbon Dioxide 24.3 mmol/L (21.0-32.0); Chloride 107 mmol/L (98-107); Estimated GFR (African America 33 (>=60); Estimated GFR (Non-African Ame 27 (>=60); Globulin 2.6 g/dL; Glucose 155 mg/dL (74-106); Sodium 141 mmol/L (136-145); Total Protein 5.1 g/dL (6.4-8.2)
[2024-06-19] MEDS: FLUTICASONE PROPIONATE 50 MCG NASAL SPRAY 2 SPRAY NS (08:25)
[2024-06-19] MEDS: PANTOPRAZOLE SODIUM 40 MG VIAL IV (08:26)
[2024-06-19] MEDS: INSULIN ASPART 300 UNIT/3 ML PEN SUBQ ×3 (08:26→16:33)
--- NOTE | 2024-06-19 09:13 | PT.DAILY ---
Physical Therapy Daily Note PT Daily Note/Assess Start: 06/17/24 10:45 Freq: Status: Active Protocol: Document 06/19/24 09:00 [id number] (Rec: 06/19/24 09:12 [id number]) Physical Therapy Daily Note/Assessment Time In/Time Out Time In 08:03 Time Out 08:15 Pain In Pain Level 0 Pain Out Pain Level 0 Subjective Subjective Patient received seat in chair at bedside. Patient agreeable to participating with PT. Therapeutic Exercise Time Therapeutic Exercise Minutes (minutes) 4 Therapeutic Exercise Units 0 Therapeutic Exercise Treatment Therapeutic Exercise Treatment Seated ELADIO LE ther ex to increase strength: ankle/heel raises, LAQ's, marching, resisted hip ABD/ADD and step to side hip ABD x 10 reps. Therapeutic Activity Time Therapeutic Activity Minutes (minutes) 8 Therapeutic Activity Units 0 Therapeutic Activity Treatment Bed Mobility Ability Contact Guard Assist Chair Transfer Ability Modified Independent Therapeutic Activity Comments Sit to stand to RW is MOD I, uses ELADIO hand to push up from arm rests. Ambulated 3 laps for ~ 120 feet x 1 with RW for SBA. No LOB with turns and pace of gait is steady with equal step length. Patient seated in chair at bedside, call kent and phone within reach. Nursing notified of patient placement . acknowledged information. Total Physical Therapy Time Total Therapy Minutes 12 Total Physical Therapy Units 0 Summary Daily Note Summary Increased ambulation distance demonstrated this date. Patient does verbalize some fatigue. Patient would benefit from PT to address functional deficits.
[2024-06-19] MEDS: POTASSIUM CHLORIDE 10 MEQ ER TABLET 40 MEQ PO ×2 (09:37→16:33)
[2024-06-19] MEDS: FUROSEMIDE 40 MG/4 ML VIAL IVP (10:29)
[2024-06-19] MEDS: SPIRONOLACTONE 25 MG TABLET 50 MG PO (10:29)
[2024-06-19 11:08] LABS: Amylase, Body Fluid 50 U/L (.); Glucose, Body Fluid 134 mg/dL (.); LD, Body Fluid 66 IU/L (.); Triglycerides, Fluid 26 mg/dL (Not Estab.)
[2024-06-19 11:32] LABS: Glucometer 215 mg/dL (74-106)
[2024-06-19 12:09] LABS: Clarity, Serous Slightly hazy (Clear); Color, Serous Straw (.); Eosinophils, Serous 0 % (Not Estab.); Lining Cells, Serous 6 % (Not Estab.); Lymphocytes, Serous 33 % (Not Estab.); Macrophages, Serous 49 % (Not Estab.); Neut, Serous 12 % (0-24); Nucleated Cells, Serous 42 /mm3 (0-499); RBC, Serous 0 /uL (Not Estab.)
[2024-06-19] MEDS: MIDODRINE HCL 5 MG TABLET PO ×2 (12:38→17:59)
--- NOTE | 2024-06-19 12:41 | PM.IMPN1 ---
Progress Note: A&P Assessment and Plan (1) Cirrhosis of liver with ascites: Assessment and Plan: Liver cirrhosis (new diagnosis) with large volume ascites and generalized anasarca. S/p paracentesis - removed 7 L. Still quite volume overload on exam Denies excessive alcohol use. Will order basic work up for Liver cirrhosis - including hepatitis panel, serum AMA, ILANA, Ceruloplasmin, ferritin. Will eventually need outpatient GI work up and follow up with cotton sampler. Qualifiers: Hepatic cirrhosis type: unspecified hepatic cirrhosis Qualified Code(s): K74.60 - Unspecified cirrhosis of liver; R18.8 - Other ascites (2) Hypotension: Assessment and Plan: Presented with hypotension with SBP as low as 70s. No evidence of infection on initial w/u but was treated with rocephin for suspected SBP. Ascitic tap is not indicative of SBP with normal PMN and is transudative in nature Her hypotension is likely due to liver cirrhosis. Will start patient on midodrine to help improve her BP. C/w rocephin for now for SPB px. Qualifiers: Hypotension type: unspecified hypotension type Qualified Code(s): I95.9 - Hypotension, unspecified (3) Acute exacerbation of CHF (congestive heart failure): Assessment and Plan: Volume overload with generalized anasarca, elevated BNP. Multifactorial and sec to liver cirrhosis and acute on chronic diastolic HF, started on IV lasix. Monitor intake/output,daily weights. Qualifiers: Heart failure type: diastolic Qualified Code(s): I50.33 - Acute on chronic diastolic (congestive) heart failure (4) Anasarca: Assessment and Plan: Generalized anasarca with Liver cirrhosis. Started on IV lasix, aldactone. Will need close monitoring of Renal function/BP while on diuretics. (5) Occult blood detected in feces by immunoassay: Assessment and Plan: Occult blood in stool. Hb is stable however and more or less at baseline. Had colonoscopy with polyps removed last year. No recent EGD. Monitor Hb closely. No concern for active/overt bleeding but at high risk due to liver cirrhosis and pancytopenia (6) COLLIN (acute kidney injury): Assessment and Plan: Baseline serum cr is 1.5-1.7 Presented with serum creatinine of 3.9. Slowly improving. Volume overload on exam with generalized anasarca - added IV lasix, aldactone. (7) Pancytopenia: Assessment and Plan: likely due to liver cirrhosis. No need for transfusion. (8) Elevated lipase: Assessment and Plan: Mildly elevated Lipase but no abdominal pain and no radiographic evidence of pancreatitis on CT scan. US RUQ does mentioned possible subtle that could be indicative of pancreatitis but clinically low suspicion. Monitor for now. Has no GI symptoms and denies N/V or abdominal pain. (9) Lactic acidosis: Assessment and Plan: Mild elevation, now normal. likely due to hypotension, cirrhosis and COLLIN resulting in decreased lactate clearance. Low suspicion of infection/sepsis. Monitor. (10) Atrial fibrillation: Assessment and Plan: Hold Eliquis as high risk of bleeding with Plt count of less than 100 k and coagulopathy associated with liver cirrhosis. Rate is poorly controlled and above 100 persistently likely because cardizem and lopresor have been on hold. Resume lopressor. Qualifiers: Atrial fibrillation type: paroxysmal Qualified Code(s): I48.0 - Paroxysmal atrial fibrillation (11) Diabetes: Assessment and Plan: SSI While inpatient. Qualifiers: Diabetes mellitus type: type 2 Diabetes mellitus leadership program associate insulin use: without leadership program associate use Diabetes mellitus complication status: with kidney complications Diabetes mellitus complication detail: with chronic kidney disease Chronic kidney disease stage: stage 3 (moderate) Chronic kidney disease stage 3 subtype: stage 3a (GFR 45-59) Qualified Code(s): E11.22 - Type 2 diabetes mellitus with diabetic chronic kidney disease; N18.31 - Chronic kidney disease, stage 3a (12) HTN (hypertension): Assessment and Plan: Hold antihypertensives. Started on lasix and aldactone for ascites/liver cirrhosis and anasarca. Midodrine added for hypotension Qualifiers: Hypertension type: primary hypertension Qualified Code(s): I10 - Essential (primary) hypertension (13) CKD stage 3 due to type 2 diabetes mellitus: Assessment and Plan: CKD 3 at baseline. P/w COLLIN. Renal function is slowly improving. (14) Cholelithiasis: Assessment and Plan: Chronic, unchanged. no symptoms but likely will need outpatient f/u by general surgery. Qualifiers: Cholelithiasis location: gallbladder Cholecystitis presence: without cholecystitis Biliary obstruction: without biliary obstruction Qualified Code(s): K80.20 - Calculus of gallbladder without cholecystitis without obstruction (15) Hypokalemia: Assessment and Plan: Ordered PO potassium. (16) Hypothyroid: Qualifiers: Hypothyroidism type: unspecified Qualified Code(s): E03.9 - Hypothyroidism, unspecified Internal Medicine - PN: Subj Subjective Interval history: Seen and examined. Appears short of breath during conversation. Feels slightly better than yesterday after paracentesis. No overnight events Exam Constitutional Vital Signs, click to edit/add: Last Vital Signs Temp 97.9 F 06/19/24 11:53 Pulse 110 H 06/19/24 12:00 Resp 16 06/19/24 11:53 BP 106/71 06/19/24 11:53 Pulse Ox 94 L 06/19/24 11:53 O2 Del Method Room Air 06/19/24 11:53 O2 Flow Rate 2 06/16/24 04:09 General appearance: cooperative, comfortable and ill appearing Nutritional appearance: obese Respiratory Common normals: normal respiratory effort Effort & inspection: tachypneic Auscultation: rales bilateral 1/[address] way up Other: Conversational dyspnea noted. Cardio Jugular venous distention: JVD to the level of the angle of the jaw Rate: tachycardic Rhythm: abnormal rhythm GI Common normals: soft to palpation, non-tender and no hepatosplenomegaly Inspection: edema findings Laterality: bilateral and anasarca present Extremity General: edema (+3 LE edema) Neuro Common normals: oriented x3, moves all extremities and no focal motor deficits Psych Common normals: mental status grossly normal, thought process normal, denies homicidal ideation and denies suicidal ideation Internal Medicine - PN: Obj Da Labs Labs: Laboratory Results - last 24 hr 06/18/24 06/18/24 06/18/24 15:30 16:21 20:26 WBC RBC Hgb Hct MCV MCH MCHC RDW Plt Count MPV Neut % (Auto) Lymph % (Auto) [place] % (Auto) Eos % (Auto) Baso % (Auto) Neut # (Auto) Lymph # (Auto) [place] # (Auto) Eos # (Auto) Baso # (Auto) Abs Immat Gran (auto) Imm/Tot Granulo (auto) PT INR Sodium Potassium Chloride Carbon Dioxide Anion Gap BUN Creatinine Est GFR ( Amer) Est GFR (Non-Af Amer) BUN/Creatinine Ratio Glucose Calcium Total Bilirubin AST ALT Alkaline Phosphatase NT-Pro-B Natriuret Pep Total Protein Albumin Globulin Albumin/Globulin Ratio Lipase Fluid Color Slightly hazy Fluid Clarity Straw Fluid RBC 0 Fluid Nucleated Cells 42 Fluid Neutrophils 12 Fluid Lymphocytes 33 Fluid Eosinophils 0 Fluid Macrophages 49 Fluid Lining Cell 6 Fluid Glucose 134 Fluid Total Protein 1.0 Fluid LDH 66 Fluid Amylase 50 Fluid Triglycerides 26 Fluid Comment TNP Miscellaneous Test Comment POC Glucose 146 H 180 H 06/19/24 06/19/24 05:50 11:31 WBC 2.8 L RBC 2.58 L Hgb 8.2 L Hct 25.0 L MCV 96.9 MCH 31.8 MCHC 32.8 RDW 17.2 H Plt Count 96 L MPV 10.7 Neut % (Auto) 70.7 Lymph % (Auto) 17.5 L [place] % (Auto) 9.6 Eos % (Auto) 1.4 Baso % (Auto) 0.4 Neut # (Auto) 2.0 Lymph # (Auto) 0.5 L [place] # (Auto) 0.3 Eos # (Auto) 0.0 Baso # (Auto) 0.0 Abs Immat Gran (auto) 0.01 Imm/Tot Granulo (auto) 0.4 PT 16.6 H INR 1.65 Sodium 141 Potassium 3.0 L Chloride 107 Carbon Dioxide 24.3 Anion Gap 12.7 BUN 64.0 H Creatinine 1.84 H Est GFR ( Amer) 33 L Est GFR (Non-Af Amer) 27 L BUN/Creatinine Ratio 34.8 Glucose 155 H Calcium 8.5 Total Bilirubin 0.8 AST 56 H ALT 60 H Alkaline Phosphatase 74 NT-Pro-B Natriuret Pep 1377.0 H* Total Protein 5.1 L Albumin 2.5 L Globulin 2.6 Albumin/Globulin Ratio 1.0 Lipase 177.0 H Fluid Color Fluid Clarity Fluid RBC Fluid Nucleated Cells Fluid Neutrophils Fluid Lymphocytes Fluid Eosinophils Fluid Macrophages Fluid Lining Cell Fluid Glucose Fluid Total Protein Fluid LDH Fluid Amylase Fluid Triglycerides Fluid Comment Miscellaneous Test POC Glucose 215 H
[2024-06-19] MEDS: METOPROLOL TARTRATE 25 MG TABLET PO (14:10)
[2024-06-19 16:32] LABS: Glucometer 179 mg/dL (74-106)
[2024-06-19] MEDS: OMEPRAZOLE 40 MG CAPSULE.DR PO (16:33)
[2024-06-19 20:55] LABS: Glucometer 130 mg/dL (74-106)
[2024-06-20] VITALS (12 sets, daily range): BP systolic 97–107; BP diastolic 53–73; PULSE 77–110; TEMP 36.4–36.5; O2SAT 92–96
[2024-06-20] MEDS: CEFTRIAXONE 1,000 MG in 0.9 % SODIUM CHLORIDE 50 ML 100 MG IV (00:37)
[2024-06-20] MEDS: LEVOTHYROXINE SODIUM 75 MCG TABLET PO (05:48)
[2024-06-20] MEDS: MIDODRINE HCL 5 MG TABLET PO ×2 (05:48→11:11)
[2024-06-20 05:58] LABS: Eosinophils Absolute Auto 0.1 10^3/uL (0.0-0.7); Eosinophils Percent Auto 2.5 % (0.9-7.0); Hematocrit 25.8 % (36.0-48.0); Hemoglobin 8.5 g/dL (12.0-16.0); Immature Granulocytes Abs Auto 0.01 10^3/uL (0.00-0.03); Immature Granulocytes Pct Auto 0.3 % (0.0-0.5); Lymphocytes Absolute Auto 0.6 10^3/uL (1.2-3.8); Lymphocytes Percent Auto 19.3 % (20.5-60.0); Mean Corpuscular HGB Conc 32.9 g/dL (29.9-35.2); Mean Corpuscular Hemoglobin 31.5 pg (26.7-34.0); Mean Corpuscular Volume 95.6 fL (81.0-99.0); Mean Platelet Volume 10.4 fL (9.5-13.5); Monocytes Absolute Auto 0.3 10^3/uL (0.3-0.8); Monocytes Percent Auto 9.2 % (1.7-12.0); Neutrophils Absolute Auto 2.2 10^3/uL (1.4-6.5); Neutrophils Percent Auto 68.7 % (43.0-75.0); Platelet Count 104 10^3/uL (150-450); Red Cell Distribution Width 16.7 % (11.0-15.0); White Blood Count 3.3 10^3/uL (4.0-11.0)
[2024-06-20 06:13] LABS: Alanine Aminotransferase 58 U/L (14-59); Albumin Globulin Ratio 0.9; Albumin Level 2.4 g/dL (3.4-5.0); Alkaline Phosphatase 76 U/L (46-116); Anion Gap 14.7; Aspartate Amino Transferase 53 U/L (15-37); BUN Creatinine Ratio 32.5; Calcium 8.3 mg/dL (8.5-10.1); Carbon Dioxide 23.7 mmol/L (21.0-32.0); Chloride 107 mmol/L (98-107); Estimated GFR (African America 38 (>=60); Estimated GFR (Non-African Ame 31 (>=60); Globulin 2.6 g/dL; Glucose 139 mg/dL (74-106); INR 1.71; Potassium 3.4 mmol/L (3.5-5.1); Prothrombin Time 17.2 sec (9.0-11.6); Sodium 142 mmol/L (136-145)
[2024-06-20 06:36] LABS: Percent Iron Saturation 10.9 %
[2024-06-20] MEDS: SPIRONOLACTONE 25 MG TABLET 50 MG PO (08:26)
[2024-06-20] MEDS: METOPROLOL TARTRATE 25 MG TABLET PO (08:27)
[2024-06-20] MEDS: FUROSEMIDE 40 MG/4 ML VIAL IVP (08:27)
[2024-06-20] MEDS: OMEPRAZOLE 40 MG CAPSULE.DR PO (08:27)
[2024-06-20] MEDS: FLUTICASONE PROPIONATE 50 MCG NASAL SPRAY 2 SPRAY NS (08:28)
[2024-06-20] MEDS: POTASSIUM CHLORIDE 10 MEQ ER TABLET 40 MEQ PO (08:29)
[2024-06-20] MEDS: INSULIN ASPART 300 UNIT/3 ML PEN SUBQ (11:11)
--- NOTE | 2024-06-20 11:13 | PM.DS1 ---
DS: Providers Provider Date of admission: 06/15/24 18:01 Primary care physician: KAI JARQUIN Admitting clinician: Alex Rahman Attending physician on admission: Alex Rahman Consults: 06/15/24 17:43 Occupational Therapy Eval and Treat Routine Reason for consultation: Only if needed for Rehab Has provider been notified: No Physical Therapy Eval and Treat Routine Reason for consultation: Eval and Treat Has provider been notified: No Attending physician on discharge: Shaikh Bipin Discharging clinician: Shaikh Bipin Anticipated date of discharge: 06/20/24 DS: Diagnosis Discharge Diagnosis (1) Cirrhosis of liver with ascites: Assessment and plan: Unknown etiology. Will need outpatient f/u with GI. Qualifiers: Hepatic cirrhosis type: unspecified hepatic cirrhosis Qualified Code(s): K74.60 - Unspecified cirrhosis of liver; R18.8 - Other ascites (2) Hypotension: Assessment and plan: likely due to Liver Cirrhosis. Will discharge on oral midodrine. Qualifiers: Hypotension type: unspecified hypotension type Qualified Code(s): I95.9 - Hypotension, unspecified (3) Acute exacerbation of CHF (congestive heart failure): Assessment and plan: Improved but still volume overload. However, can be managed as outpatient and will require close f/u. Qualifiers: Heart failure type: diastolic Qualified Code(s): I50.33 - Acute on chronic diastolic (congestive) heart failure (4) Anasarca: Assessment and plan: Due to Liver Cirrhosis. Will discharge on oral lasix/aldactone. Will need close f/u , BMP within one week (5) Occult blood detected in feces by immunoassay: Assessment and plan: Polyps on colonoscopy last year. No active bleeding. Will benefit from EGD due to hx of liver cirrhosis. Recommend GI f/u as outpatient. (6) COLLIN (acute kidney injury): Assessment and plan: Renal function more or less close to baseline now. BMP in one week as outpatient while on lasix/aldactone. (7) Pancytopenia: Assessment and plan: Due to liver Cirrhosis. (8) Elevated lipase: Assessment and plan: Non specific and not clinically c/w pancreatitis as patient has no GI symptoms/complaints. (9) Lactic acidosis: Assessment and plan: due to hypotension/liver cirrhosis. (10) Atrial fibrillation: Assessment and plan: Rate controlled while on Lopressor. Hold DAOC as high risk of bleeding with liver cirrhosis. Qualifiers: Atrial fibrillation type: paroxysmal Qualified Code(s): I48.0 - Paroxysmal atrial fibrillation (11) Diabetes: Assessment and plan: c/w home medications Qualifiers: Diabetes mellitus type: type 2 Diabetes mellitus exterminator insulin use: without snf use Diabetes mellitus complication status: with kidney complications Diabetes mellitus complication detail: with chronic kidney disease Chronic kidney disease stage: stage 3 (moderate) Chronic kidney disease stage 3 subtype: stage 3a (GFR 45-59) Qualified Code(s): E11.22 - Type 2 diabetes mellitus with diabetic chronic kidney disease; N18.31 - Chronic kidney disease, stage 3a (12) HTN (hypertension): Assessment and plan: Presented with hypotension. Can resume Lopressor. Hold Cardizem/HCTZ/Losartan Will discharge on lasix/aladactone. Qualifiers: Hypertension type: primary hypertension Qualified Code(s): I10 - Essential (primary) hypertension (13) CKD stage 3 due to type 2 diabetes mellitus: Assessment and plan: Renal function at baseline now. (14) Cholelithiasis: Assessment and plan: Outpatient f/u with GI. Qualifiers: Cholelithiasis location: gallbladder Cholecystitis presence: without cholecystitis Biliary obstruction: without biliary obstruction Qualified Code(s): K80.20 - Calculus of gallbladder without cholecystitis without obstruction (15) Hypokalemia: Assessment and plan: Will need PO potassium while on Lasix. (16) Hypothyroid: Assessment and plan: Cw/ levothyroxine. Qualifiers: Hypothyroidism type: unspecified Qualified Code(s): E03.9 - Hypothyroidism, unspecified DS: Summary Hospital Course Hospital Course: 69 y o presented with generalized weakness, anasarca/LE and SOB. She was hypotensive in ED with BP as low as 80/40.Patient was found to have , COLLIN, anemia, coagulopathy with elevated INR. She received FFPs, Vit K and one unit of PRBC. Her stool was positive for occult blood. She did not have any evidence of active/overt GI Bleed. She had colonoscopy last year in which few polyps were removed. She had no evidence of active/ongoing infection and her infectious work up including CXR, UA, CT abd/pelvis was unremarkable. Patient was empirically treated with IV rocephin for SBP as she was noted to have have Liver cirrhosis with large volume ascites. She underwent paracentesis and almost 7 L ascitic fluid was aspirated. She had no evidence of SBP on ascitic fluid analysis. Patient has chronic pancytopenia likely from liver cirrhosis and is at high risk of bleeding due to coagulopathy/pancytopenia associated with Liver Cirrhosis. I recommend stopping Eliquis for stroke px that she was using for Afib. Patient's BP improved with addition of Midodrine. She was diuresed with IV lasix and her renal function improved and is now close to its baseline upon discharge. She is still volume overload on exam and will benefit from outpatient lasix/aldactone. Will d/c losartan/hctz and cardizem. She will need f/u with PCP and GI. She will also need BMP in one week before following up with her PCP. Status at Discharge Functional status at discharge: independent ambulation Overall status at discharge: patient is progressing back to baseline Time Spent with Patient Time attestation: Total time spent providing and/or coordinating discharge services: Time spent: greater than 30 minutes Exam Constitutional Vital Signs, click to edit/add: Last Vital Signs Temp 97.6 F 06/20/24 07:56 Pulse 100 H 06/20/24 10:00 Resp 16 06/20/24 07:56 BP 107/73 06/20/24 07:56 Pulse Ox 96 06/20/24 07:56 O2 Del Method Room Air 06/20/24 07:56 O2 Flow Rate 2 06/16/24 04:09 General appearance: cooperative, comfortable and ill appearing Nutritional appearance: obese Respiratory Common normals: normal respiratory effort and clear to auscultation bilaterally Effort & inspection: able to speak in complete sentences Other: Conversational dyspnea noted. Cardio Jugular venous distention: JVD to the level of the angle of the jaw Rate: tachycardic Rhythm: abnormal rhythm GI Common normals: Normal to inspection, nondistended, normoactive bowel sounds present, soft to palpation, non-tender and no hepatosplenomegaly Extremity General: edema (+2 LE edema) Neuro Common normals: oriented x3, moves all extremities and no focal motor deficits Psych Common normals: mental status grossly normal, thought process normal, denies homicidal ideation and denies suicidal ideation DS: Data Data Completed and Pending Labs on day of discharge: Labs from last 24 hours 06/20/24 06/19/24 06/19/24 05:46 20:46 16:32 WBC 3.3 L RBC 2.70 L Hgb 8.5 L Hct 25.8 L MCV 95.6 MCH 31.5 MCHC 32.9 RDW 16.7 H Plt Count 104 L MPV 10.4 Neut % (Auto) 68.7 Lymph % (Auto) 19.3 L Jenkins % (Auto) 9.2 Eos % (Auto) 2.5 Baso % (Auto) 0.0 L Neut # (Auto) 2.2 Lymph # (Auto) 0.6 L Jenkins # (Auto) 0.3 Eos # (Auto) 0.1 Baso # (Auto) 0.0 Abs Immat Gran (auto) 0.01 Imm/Tot Granulo (auto) 0.3 PT 17.2 H INR 1.71 Sodium 142 Potassium 3.4 L Chloride 107 Carbon Dioxide 23.7 Anion Gap 14.7 BUN 53.0 H Creatinine 1.63 H Est GFR ( Amer) 38 L Est GFR (Non-Af Amer) 31 L BUN/Creatinine Ratio 32.5 Glucose 139 H Calcium 8.3 L Iron 23.0 L TIBC 211.0 L % Saturation 10.9 Ferritin 157.0 Total Bilirubin 1.0 AST 53 H ALT 58 Alkaline Phosphatase 76 NT-Pro-B Natriuret Pep 983.0 H Total Protein 5.0 L Albumin 2.4 L Globulin 2.6 Albumin/Globulin Ratio 0.9 Fluid Color Fluid Clarity Fluid RBC Fluid Nucleated Cells Fluid Neutrophils Fluid Lymphocytes Fluid Eosinophils Fluid Macrophages Fluid Lining Cell Fluid Comment POC Glucose 130 H 179 H 06/19/24 06/18/24 11:31 15:30 WBC RBC Hgb Hct MCV MCH MCHC RDW Plt Count MPV Neut % (Auto) Lymph % (Auto) Jenkins % (Auto) Eos % (Auto) Baso % (Auto) Neut # (Auto) Lymph # (Auto) Jenkins # (Auto) Eos # (Auto) Baso # (Auto) Abs Immat Gran (auto) Imm/Tot Granulo (auto) PT INR Sodium Potassium Chloride Carbon Dioxide Anion Gap BUN Creatinine Est GFR ( Amer) Est GFR (Non-Af Amer) BUN/Creatinine Ratio Glucose Calcium Iron TIBC % Saturation Ferritin Total Bilirubin AST ALT Alkaline Phosphatase NT-Pro-B Natriuret Pep Total Protein Albumin Globulin Albumin/Globulin Ratio Fluid Color Slightly hazy Fluid Clarity Straw Fluid RBC 0 Fluid Nucleated Cells 42 Fluid Neutrophils 12 Fluid Lymphocytes 33 Fluid Eosinophils 0 Fluid Macrophages 49 Fluid Lining Cell 6 Fluid Comment TNP POC Glucose 215 H Preliminary micro results at discharge 06/18/24 15:30 - Preliminary Ascites Fluid Discharge Plan Discharge Disposition: Home, Self-Care Discharge Medications: New furosemide [Lasix] 40 mg tablet 40 mg PO BID Qty: 60 0RF spironolactone [Aldactone] 50 mg tablet 50 mg PO QAM Qty: 30 0RF potassium chloride 20 mEq tablet extended release 20 meq PO DAILY Qty: 30 0RF Continued albuterol sulfate 90 mcg/actuation HFA aerosol inhaler 2 puff INHALATION Q6H PRN (Reason: shortness of breath or wheezing) fluticasone propionate 50 mcg/actuation spray,suspension 2 spray INTRANASAL DAILY glipizide 5 mg tablet 5 mg PO DAILY levothyroxine 75 mcg tablet 75 mcg PO DAILY metoprolol tartrate 25 mg tablet 25 mg PO BID calcium carbonate-vitamin D3 [Calcium 500 With D] 500 mg-10 mcg (400 unit) tablet 1 tab PO BID Discontinued atorvastatin 40 mg tablet 40 mg PO DAILY losartan-hydrochlorothiazide 100-25 mg tablet 1 tab PO DAILY diltiazem HCl 60 mg Tablet 60 mg PO BID 30 Days Qty: 60 0RF Eliquis 5 mg Tablet 5 mg PO BID 30 Days Qty: 60 0RF Activity: increase activity as tolerated Diet: low salt diet and other Diet Detail: Fluid restriction 1500/day Print Language: [place] [employer] Instructions: Outpatient therapy at discharge. They will call and schedule a time once you are home. Forms: Portal Instructions Follow Up Appointments: PCP in one week GI in 2-4 weeks BMP in one before f/u with PCP
[2024-06-20 11:19] LABS: Glucometer 264 mg/dL (74-106)
--- NOTE | 2024-06-20 14:30 | PC.NURSE ---
Patient started to complain of foot pain, student nurse noticed a large bulge on patients right foot. RN went in and removed her sock and found a significant size fluid filled blister. Dr. Voss was notified and he came to bedside to look at the patient. He requested a sterile tool to drain the fluid out. RN provided him with a suture removal kit. He drained the fluid out of the blister without incidence. RN then covered patients foot with gauze, an ABD and kerlix. Shiraz hose were then applied to help with patients leg swelling. Patient tolerated well. Per Dr. Voss patient still ok to be discharged and follow up with family physician this week.
[2024-06-21 10:07] LABS: pH, Body Fluid 7.5 (Not Estab.)
[2024-06-21 13:07] LABS: ANA Direct Negative (Negative)
[2024-06-21 14:09] LABS: Ceruloplasmin 24.3 mg/dL (19.0-39.0); Transferrin 193 mg/dL (192-364)
[2024-06-22 05:07] LABS: HBsAg Screen Negative (Negative); HCV Antibody Non Reactive (Non Reactive)
--- NOTE | 2024-06-23 15:09 | CM.DCFOLLOWU ---
Person spoke with: Misa How are you feeling? Better How is your pain? No pain Did you understand your discharge instructions? Yes Do you have any questions about your discharge instructions? No Were you given any prescriptions at discharge? Yes Were you able to get your prescriptions filled? Yes Do you understand how to take your medications as ordered? Yes Do you have any questions about your follow up appointment and do you plan to keep your follow up appointment? No Is there anything else that you would like to discuss? No Questions/Comments/Concerns/Other:
--- NOTE | 2024-06-24 16:02 | CM.DCFOLLOWU ---
Person spoke with:patient How are you feeling?having some leakage on her stomach? going to [facility] How is your pain? minimal Did you understand your discharge instructions?yes Do you have any questions about your discharge instructions?no Were you given any prescriptions at discharge?yes Were you able to get your prescriptions filled?yes Do you understand how to take your medications as ordered?yes Do you have any questions about your follow up appointment and do you plan to keep your follow up appointment? no questions, follow up reviewed, her family is taking her to [facility] shortly to be checked out Is there anything else that you would like to discuss? no Questions/Comments/Concerns/Other:none
== END 2024-06-20 15:52 | disposition home or self-care (01) | DRG 432 ==
LOC: ER 17:28 → MS 18:04
PROVIDERS: Family Medicine; Radiology Diagnostic Radiology; Admitting Provider Internal Medicine; Emergency Provider Emergency Medicine; PCP Family Medicine; Visit Provider Internal Medicine
DX: K74.60 Unspecified cirrhosis of liver (principal); I50.33 Acute on chronic diastolic (congestive) heart failure; R18.8 Other ascites; N17.9 Acute kidney failure, unspecified; K92.1 Melena; I13.0 Hypertensive heart and chronic kidney disease with heart failure and stage 1 through stage 4 chronic kidney disease, or unspecified chronic kidney disease; D68.9 Coagulation defect, unspecified; K80.10 Calculus of gallbladder with chronic cholecystitis without obstruction; D61.818 Other pancytopenia; E87.20 Acidosis, unspecified; Z68.42 Body mass index [BMI] 45.0-49.9, adult; I95.9 Hypotension, unspecified; Z86.16 Personal history of COVID-19; Z87.01 Personal history of pneumonia (recurrent); E66.01 Morbid (severe) obesity due to excess calories; G47.33 Obstructive sleep apnea (adult) (pediatric); E11.22 Type 2 diabetes mellitus with diabetic chronic kidney disease; E03.9 Hypothyroidism, unspecified; Z90.710 Acquired absence of both cervix and uterus; Z79.84 Long term (current) use of oral hypoglycemic drugs; Z79.890 Hormone replacement therapy; Z79.01 Long term (current) use of anticoagulants; E86.0 Dehydration; R79.89 Other specified abnormal findings of blood chemistry; Z86.010 Personal history of colon polyps; I48.0 Paroxysmal atrial fibrillation; Z79.4 Long term (current) use of insulin; N18.31 Chronic kidney disease, stage 3a; E87.6 Hypokalemia
CPT/HCPCS: 36415; 36430; 49083; 71045; 74176; 76705; 76770; 80053; 81001; 82042; 82140; 82150; 82247; 82390; 82728; 82945; 82948; 83540; 83550; 83605; 83615; 83690; 83735; 83880; 83986; 84157; 84315; 84466; 84478; 84484; 85007; 85014; 85018; 85025; 85027; 85610; 85730; 86038; 86803; 86850; 86900; 86901; 86923; 87070; 87075; 87086; 87116; 87205; 87206; 87340; 89050; 89051; 93005; 94761; 96361; 96365; 96366; 96367; 96368; 96372; 96375; 96376; 97165; 97530; 97535; 99285; G0328; J0696; J1940; J3430; P9016; P9017; Q9966

== ENCOUNTER 2024-06-23 15:32 | Outpatient (OUT) | payer MEDICARE, SELFPAY ==
[2024-06-23 16:11] LABS: Anion Gap 13.2; BUN Creatinine Ratio 25.7; Calcium 8.9 mg/dL (8.5-10.1); Carbon Dioxide 26.4 mmol/L (21.0-32.0); Chloride 108 mmol/L (98-107); Estimated GFR (African America 29 (>=60); Estimated GFR (Non-African Ame 24 (>=60); Glucose 183 mg/dL (74-106); Potassium 3.6 mmol/L (3.5-5.1); Sodium 144 mmol/L (136-145)
== END 2024-06-23 15:33 | disposition home or self-care (01) ==
LOC: LAB 15:32
PROVIDERS: PCP Family Medicine; Visit Provider Internal Medicine
DX: N17.9 Acute kidney failure, unspecified (principal)
CPT/HCPCS: 36415; 80048